=== PATIENT | female | born 1995 | race Caucasian/White ===

== ENCOUNTER → 2016-03-31 | Outpatient (CLI) | payer OTHER ==
[~2016-03-31] MED LIST: ALBU1NEB10 NEB; BACL20TA PEG; CHOL100010 PEG; MRLP527 PEG; NITR1SUS PEG; NORE5TAB5 PO; NUTRITIONAL SUPPLEMENT PEG; PLMINS PO; TRAZ50TA35 PEG; VALP250S16 PEG; ZONI100C2 PEG; ZONI100C39 PEG
--- NOTE | 2016-03-31 12:24 | DIAGNOSTIC IMAGING REPORT ---
AP PELVIS/BILAT HIP MIN 3-4V CLINICAL HISTORY: RIGHT HIP PAIN (719.45) pain COMPARISON: None. DISCUSSION: Mild elevation of the acetabular angles bilaterally. Narrowing of the iliac wings transversely most likely on a congenital basis. Nonobstructive bowel pattern. There is no evidence for soft tissue swelling. IMPRESSION: 1. Mild degenerative, dysplastic changes of the right and to lesser extent left hip. 2. 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 3. No acute process is identified. Electronically signed by: Erik Shook M.D. 03/31/2016 12:23 PM Dictated Date/Time: 03/31/2016 12:22 PM
== END | disposition home or self-care (01) ==
LOC: C.RADBBURG 17:15
PROVIDERS: ATTEND Pediatrics
DX: R30.0 Dysuria (principal); M25.551 Pain in right hip

== ENCOUNTER → 2016-04-03 | Outpatient (CLI) | payer OTHER | END | disposition home or self-care (01) | LOC: C.LABSPEC 18:54 | PROVIDERS: ATTEND Pediatrics | DX: R30.0 Dysuria (principal) ==

== ENCOUNTER → 2016-04-07 | Outpatient (CLI) | payer OTHER ==
--- NOTE | 2016-04-07 15:45 | DIAGNOSTIC IMAGING REPORT ---
RIGHT HIP ULTRASOUND CLINICAL HISTORY: Right hip pain. COMPARISON STUDY: Pelvis and bilateral hip radiographs March 31, 2016. TECHNIQUE: Sonography of the right hip was performed.Comparison sonography of the left hip was also performed. FINDINGS: No mass, fluid collection or other sonographic abnormality was identified within the region of the right hip. IMPRESSION: No sonographic abnormality identified within the right hip. Electronically signed by: Otto Pearce M.D. 04/07/2016 3:44 PM Dictated Date/Time: 04/07/2016 3:43 PM
== END | disposition home or self-care (01) ==
LOC: C.ULTR 14:53
PROVIDERS: ATTEND Pediatrics
DX: M25.551 Pain in right hip (principal)

== ENCOUNTER → 2016-06-09 | Outpatient (CLI) | payer OTHER | END | disposition home or self-care (01) | LOC: C.LABSPEC 10:33 | PROVIDERS: ATTEND Pediatrics | DX: J04.10 Acute tracheitis without obstruction (principal) ==

== ENCOUNTER 2016-09-01 16:30 | Inpatient (IN) | payer OTHER ==
[~2016-09-01] VITALS: Ht 170.2 cm; Wt 54.6 kg
[~2016-09-01 16:30] MED LIST changes: -NORE5TAB5 PO; -NUTRITIONAL SUPPLEMENT PEG; -VALP250S16 PEG
[2016-09-01] MEDS ORDERED: NUTRITIONAL SUPPLEMENT PEG (17:16)
[2016-09-01] MEDS ORDERED: VALP250S16 PEG (17:24)
--- NOTE | 2016-09-01 18:45 | EMERGENCY ROOM VISIT NOTE ---
History Report prepared by Ulisses: Emily Figueroa Under the Supervision of: Dr. Andrew Thomas M.D. First contact with patient: 17:52 Chief Complaint: REFERRED BY DOCTOR Stated Complaint: DOCTOR REFERRED - POSSIBLE INFECTION History of Present Illness The patient is a 21 year old female who presents to the Emergency Room with complaints of persistent vaginal bleeding starting 11 days ago. The patient has a history of cerebral palsy. She started her first period 11 days ago. Her mother began to become concerned when the heavy bleeding persisted until today. This morning her alarm went off because her heart rate was 155. Her blood pressure was also found to be low. She had routine lab work today which showed that her white count was elevated. She was sent to the ED over concerns of infection. The patient appears pale to her family. She is also more fatigued. She has not had any vomiting, black stools, bloody stools, or fever. Two months ago, the patient was complaining of left hip pain. She had an X-ray which revealed degenerative changes. She did not have any other imaging at that time. The patient's normal hemoglobin is 11 and normal platelet is in the 90s. She has a history of thrombocytopenia. Source of History: family Onset: 11 days ago Position: other (vaginal) Symptom Intensity: heavy Quality: other (bleeding) Timing: other (persistent) Associated Symptoms: + fatigue, No fevers, No vomiting, No melena, No hematochezia Note: Pt is pale. Review of Systems See HPI for pertinent positives & negatives. A total of 10 systems reviewed and were otherwise negative. Past Medical & Surgical Medical Problems: (1) Anemia (2) cerebral dysgenesis (3) Cerebral palsy (4) Chronic urinary tract infection (5) Mental retardation (6) Pneumonia (7) Seizure disorder (8) Sepsis (9) tracheostomy Family History FHx: heart disease Hypertension Seizures Social History Smoking Status: Never Smoker Alcohol Use: none Drug Use: none Marital Status: single Housing Status: lives with family Occupation Status: disabled Current/Historical Medications Scheduled Albuterol Sulf (Albuterol Sulfate 0.083% For Inh), 3 ML NEB BID Baclofen (Lioresal), 20 MG PEG TID Budesonide (Inhalation) (Pulmicort Respules 0.5MG/2ML), 2 ML PO BID Cholecalciferol (Vitamin D), 1,000 INTER.UNIT PEG DAILY Nitrofurantoin (Nitrofurantoin), 50 MG PEG DAILY Trazodone Hcl (Trazodone), 50 MG PEG HS Valproic Acid Syrup (Depakene), 11 ML PEG TID Zonisamide (Zonegran), 200 MG PEG QAM Zonisamide (Zonegran), 100 MG PEG HS [Boost(Adult) Feeding], 350 ML PEG QID Scheduled PRN Polyethylene (Polyethylene Glycol 3350), 8.5 GM PEG UD PRN for Constipation Allergies Coded Allergies: No Known Allergies (Unverified , 09/01/16) Physical Exam Vital Signs Date Time Temp Pulse Resp B/P (MAP) Pulse Ox O2 Delivery O2 Flow Rate FiO2 09/01/16 22:29 101 09/01/16 22:18 09/01/16 22:00 36.8 104 18 99/72 100 09/01/16 21:35 36.8 121 20 116/88 97 09/01/16 21:23 36.7 117 18 107/86 100 09/01/16 21:16 117 14 96/82 100 Trach Collar 10.0 09/01/16 20:10 117 22 100/74 97 09/01/16 18:44 126 09/01/16 18:29 112 16 102/73 94 Room Air Trach Collar 09/01/16 16:42 36.8 127 18 89/65 98 Room Air Physical Exam GENERAL: Patient is consistent with cerebral palsy. HEENT: No acute trauma, normocephalic atraumatic, mucous membranes moist, no nasal congestion, pale conjunctiva, no scleral icterus NECK: No stridor, no adenopathy, no meningismus, trachea is midline. Trach in place. LUNGS: No dyspnea. Clear to auscultation and equal bilaterally. No wheeze, no rhonchi. HEART: Tachycardic rate and regular rhythm. No murmurs, rubs, gallops appreciated. ABDOMEN: Soft, nontender, bowel sounds positive, no masses appreciated, no peritonitis. BACK: No midline tenderness, no CVA tenderness PELVIS: Small vaginal opening, continuous mild to moderate venous bleeding, unable to do full pelvic exam. EXTREMITIES: Muscle wasting and contracture of all extremities NEUROLOGIC: Alert and oriented, no acute motor or sensory deficits, no focal weakness, cranial nerves grossly intact. SKIN: Pale. No rash, no jaundice, no diaphoresis. Medical Decision & Procedures ER Provider Diagnostic Interpretation: X ray results are stated below per my interpretation and the radiologist's interpretation. Radiology results and stated below per my review and radiologist interpretation: CHEST ONE VIEW PORTABLE CLINICAL HISTORY: elevated WBC COMPARISON STUDY: 02/11/2016 FINDINGS: The cardiac and mediastinal contours remain stable. A tracheostomy tube is again visualized. There is no focal pulmonary consolidation. There are no pleural effusions. Hazy increased attenuation at the left lung base is felt to be related to technical factors.[There is no failure. IMPRESSION: AP portable study. Hazy increased attenuation of the left lung base, likely related to technical factors. If there is strong clinical suspicion over the presence of a pneumonia, a PA and lateral chest x-ray would be recommended in follow-up Electronically signed by: Galen Ham M.D. 09/01/2016 7:24 PM Dictated Date/Time: 09/01/2016 7:22 PM EXAMINATION: PELVIC ULTRASOUND (transabdominal only) CLINICAL HISTORY: Heavy vaginal bleeding. Anemia. COMPARISON STUDY: None FINDINGS: The patient is reportedly not sexually active and was unable to consent for endovaginal scanning The uterus measured 9.8 x 4.6 x 6.6 cm. The endometrial was thickened measuring 21 mm. There is complex fluid within the lower uterine segment/cervix, likely representing a blood clot. The right ovary measured 33 x 20 x 25 mm. The left ovary measured 37 x 18 x 25 mm. There is no ultrasonographic evidence of ovarian torsion. It should be noted that ovarian torsion can be present with normal Doppler ultrasonographic findings. There was no evidence of pathologic free pelvic fluid. IMPRESSION: 1. Ultrasonographically normal ovaries 2. Thickened endometrial stripe with complex fluid likely representing a blood clot within the lower uterine segment/cervix Electronically signed by: Galen Ham M.D. 09/01/2016 8:56 PM Dictated Date/Time: 09/01/2016 8:54 PM Laboratory Results 09/01/16 18:37 Red Blood Count 2.18, Mean Corpuscular Volume 102.3, Mean Corpuscular Hemoglobin 35.3, Mean Corpuscular Hemoglobin Concent 34.5, Mean Platelet Volume 8.7, Neutrophils (%) (Auto) 74.3, Lymphocytes (%) (Auto) 20.4, Monocytes (%) ( Auto) 4.7, Eosinophils (%) (Auto) 0.1, Basophils (%) (Auto) 0.1, Neutrophils # ( Auto) 10.00, Lymphocytes # (Auto) 2.74, Monocytes # (Auto) 0.63, Eosinophils # ( Auto) 0.02, Basophils # (Auto) 0.01 09/01/16 18:37 Test 09/01/16 18:37 White Blood Count 13.45 K/uL (4.8-10.8) Red Blood Count 2.18 M/uL (4.2-5.4) Hemoglobin 7.7 g/dL (12.0-16.0) Hematocrit 22.3 % (37-47) Mean Corpuscular Volume 102.3 fL (80-100) Mean Corpuscular Hemoglobin 35.3 pg (25-34) Mean Corpuscular Hemoglobin Concent 34.5 g/dl (32-36) Platelet Count 197 K/uL (130-400) Mean Platelet Volume 8.7 fL (7.4-10.4) Neutrophils (%) (Auto) 74.3 % Lymphocytes (%) (Auto) 20.4 % Monocytes (%) (Auto) 4.7 % Eosinophils (%) (Auto) 0.1 % Basophils (%) (Auto) 0.1 % Neutrophils # (Auto) 10.00 K/uL (1.4-6.5) Lymphocytes # (Auto) 2.74 K/uL (1.2-3.4) Monocytes # (Auto) 0.63 K/uL (0.11-0.59) Eosinophils # (Auto) 0.02 K/uL (0-0.5) Basophils # (Auto) 0.01 K/uL (0-0.2) RDW Standard Deviation 48.6 fL (36.4-46.3) RDW Coefficient of Variation 13.6 % (11.5-14.5) Immature Granulocyte % (Auto) 0.4 % Immature Granulocyte # (Auto) 0.05 K/uL (0.00-0.02) Polychromasia 1+ Prothrombin Time 11.1 SECONDS (9.0-12.0) Prothromb Time International Ratio 1.0 (0.9-1.1) Activated Partial Thromboplast Time 24.5 SECONDS (21.0-31.0) Partial Thromboplastin Ratio 0.9 Anion Gap 12.0 mmol/L (3-11) Est Creatinine Clear Calc Drug Dose 141.7 ml/min Estimated GFR () > 150.0 Estimated GFR (Non- 135.0 BUN/Creatinine Ratio 31.8 (10-20) Calcium Level 8.5 mg/dl (8.5-10.1) Total Bilirubin 0.2 mg/dl (0.2-1) Direct Bilirubin 0.1 mg/dl (0-0.2) Aspartate Amino Transf (AST/SGOT) 13 U/L (15-37) Alanine Aminotransferase (ALT/SGPT) 13 U/L (12-78) Alkaline Phosphatase 54 U/L (45-117) C-Reactive Protein 0.53 mg/dl (0-0.29) Total Protein 6.3 gm/dl (6.4-8.2) Albumin 3.0 gm/dl (3.4-5.0) Lipase 319 U/L (73-393) Human Chorionic Gonadotropin, Qual NEG (NEG) Valproic Acid (Depakene) Level 104 mcg/ml (50-100) Laboratory results as reviewed by me. ED Course 1753: The patient was evaluated in room B5. A complete history and physical exam was performed. 1931: I reevaluated the patient. She is stable. Her heart rate is in the 120s. 1952: I reevaluated the patient. She is stable. We are awaiting nursing to do a pelvic exam. 2009: I performed a pelvic exam in the presence of a female nurse. Findings as in exam. 2050: I reevaluated the patient. I discussed transfusion with the mother and she gave written consent. 2106: I discussed the patient's case [place]. [place], [facility] [place]. She agrees that the patient needs to be admitted for monitoring. She will defer treatment to the hospitalist and is open to consult. She suggested starting Aygestin protocol and defers to the hospitalist whether this is appropriate for the patient. 2116: I discussed the patient's case with Dr. Henriquez, [facility] [place] The patient will be evaluated for further management. 2121: Upon reevaluation, the patient is stable. I discussed results and treatment plan with the patient's mother. She verbalized understanding and agreement with the treatment plan. The patient will be evaluated for further management. Medical Decision Differential: Menstrual Bleeding, Dysfunctional Uterine Bleeding, Infectious, Ectopic , Bleeding Dyscrasia, amongst other pathologies entertained. Medication Reconciliation: I attest that I have personally reviewed the patient 's current medication list. Blood pressure screening: The patient was hypotensive. 21 yr old female who has CP with severe intellectual disability arrives for vaginal bleeding. She has never had menstrual period before 2 weeks ago when bleeding started. No blood thinner use though has history of thrombocytopenia. Labs by PCP revealed mild leukocytosis though more concern anemia. Repeat labs confirm anemia. She is tachycardic, hypotensive and requires transfusion. I reviewed this with mother who agrees. Avoid NSS bolus as with laying flat BP improved and would prefer to not dilute her further. I do not feel this is infectious as no fever and clear other cause for hypotension. Blood cultures were sent however just in case. US pelvis without mass. Exam without evidence of foreign body though does confirm bleeding, however limited exam. Reviewed with [employer] and will admit to hospitalist for further treatment/evaluation. Consults Time Called: 2104 Consulting Physician: Dr. Dubon, [facility] [place] Returned Call: 2106 I discussed the patient's case with her. She agrees that the patient needs to be admitted for monitoring. She will defer treatment to the hospitalist and is open to consult. She suggested starting Aygestin protocol and defers to the hospitalist whether this is appropriate for the patient. Additional Consults: Time Called: 2114 Consulted Physician: Dr. Henriquez [facility] [place] Returned Call: 2116 Additional Comments: I discussed the patient's case with her. The patient will be evaluated for further management. Impression Primary Impression: Vaginal bleeding Additional Impressions: Acute post-hemorrhagic anemia Hypotension Critical Care I have personally spent greater than 45 minutes of critical care time in the direct management of this patient. This was a life/limb threatening event. This includes time spent evaluating patient, direct bedside care, chart review, placing orders, interpretation of diagnostic studies, discussion with consultants, patient, and family members, as well as other required patient management activities. This 45 minutes is in excess of all separately billable procedures. Scribe Attestation The scribe's documentation has been prepared under my direction and personally reviewed by me in its entirety. I confirm that the note above accurately reflects all work, treatment, procedures, and medical decision making performed by me. Departure Information Dispostion Being Evaluated By Hospitalist Referrals No Doctor, Assigned (PCP) Patient Instructions My [facility] Problem Qualifiers Additional Impressions: Hypotension Hypotension type: unspecified hypotension type Qualified Codes: I95.9 - Hypotension, unspecified
[2016-09-01 19:01] LABS: BASO % 0.1 %; BASO ABS # 0.01 K/uL (0-0.2); EOS % 0.1 %; HEMATOCRIT 22.3 % (37-47); IG% 0.4 %; LYMPH % 20.4 %; LYMPH ABS # 2.74 K/uL (1.2-3.4); MEAN CELL VOLUME 102.3 fL (80-100); MEAN CORPUSCULAR HEMOGLOBIN 35.3 pg (25-34); MEAN CORPUSCULAR HGB CONC 34.5 g/dl (32-36); MEAN PLATELET VOLUME 8.7 fL (7.4-10.4); MONO % 4.7 %; NEUT % 74.3 %; PLATELET COUNT 197 K/uL (130-400); RED BLOOD COUNT 2.18 M/uL (4.2-5.4); WHITE BLOOD COUNT 13.45 K/uL (4.8-10.8)
[2016-09-01 19:15] LABS: PARTIAL THROMBOPLASTIN RATIO 0.9; PROTHROMBIN TIME (PATIENT) 11.1 SECONDS (9.0-12.0)
[2016-09-01 19:19] LABS: ALT/SGPT 13 U/L (12-78); BLOOD UREA NITROGEN 18 mg/dl (7-18); BUN/CREATININE RATIO 31.8 (10-20); C-REACTIVE PROTEIN 0.53 mg/dl (0-0.29); CALCIUM 8.5 mg/dl (8.5-10.1); CARBON DIOXIDE 21 mmol/L (21-32); CHLORIDE 106 mmol/L (98-107); CREATININE 0.55 mg/dl (0.60-1.20); GLUCOSE 87 mg/dl (70-99); POTASSIUM 3.8 mmol/L (3.5-5.1); SODIUM 139 mmol/L (136-145)
[2016-09-01 19:22] LABS: ALKALINE PHOSPHATASE 54 U/L (45-117); AST/SGOT 13 U/L (15-37)
[2016-09-01 19:24] LABS: COMPLETE YES; POLYCHROMASIA 1+
--- NOTE | 2016-09-01 19:25 | DIAGNOSTIC IMAGING REPORT ---
CHEST ONE VIEW PORTABLE CLINICAL HISTORY: elevated WBC COMPARISON STUDY: 02/11/2016 FINDINGS: The cardiac and mediastinal contours remain stable. A tracheostomy tube is again visualized. There is no focal pulmonary consolidation. There are no pleural effusions. Hazy increased attenuation at the left lung base is felt to be related to technical factors.[There is no failure. IMPRESSION: AP portable study. Hazy increased attenuation of the left lung base, likely related to technical factors. If there is strong clinical suspicion over the presence of a pneumonia, a PA and lateral chest x-ray would be recommended in follow-up Electronically signed by: Galen Ham M.D. 09/01/2016 7:24 PM Dictated Date/Time: 09/01/2016 7:22 PM
[2016-09-01 19:28] LABS: PREG INTERNAL NEGATIVE QC NEG CLEAR BACKGROUND; PREG INTERNAL POSITIVE QC POS CONTROL LINE
--- NOTE | 2016-09-01 20:57 | DIAGNOSTIC IMAGING REPORT ---
EXAMINATION: PELVIC ULTRASOUND (transabdominal only) CLINICAL HISTORY: Heavy vaginal bleeding. Anemia. COMPARISON STUDY: None FINDINGS: The patient is reportedly not sexually active and was unable to consent for endovaginal scanning The uterus measured 9.8 x 4.6 x 6.6 cm. The endometrial was thickened measuring 21 mm. There is complex fluid within the lower uterine segment/cervix, likely representing a blood clot. The right ovary measured 33 x 20 x 25 mm. The left ovary measured 37 x 18 x 25 mm. There is no ultrasonographic evidence of ovarian torsion. It should be noted that ovarian torsion can be present with normal Doppler ultrasonographic findings. There was no evidence of pathologic free pelvic fluid. IMPRESSION: 1. Ultrasonographically normal ovaries 2. Thickened endometrial stripe with complex fluid likely representing a blood clot within the lower uterine segment/cervix Electronically signed by: Galen Ham M.D. 09/01/2016 8:56 PM Dictated Date/Time: 09/01/2016 8:54 PM
[2016-09-01 21:23] VITALS: BP 107/86; PULSE 117; TEMP 36.7; O2SAT 100
[2016-09-01 21:35] VITALS: BP 116/88; PULSE 121; TEMP 36.8; O2SAT 97
[2016-09-01 22:00] VITALS: BP 99/72; PULSE 104; TEMP 36.8; O2SAT 100
[2016-09-01] MEDS ORDERED: POLYETHYLENE (MIRALAX) 17 GM PACK PO PRN (22:30)
[2016-09-01] MEDS ORDERED: POLYETHYLENE (MIRALAX) 17 GM PACK PEG PRN (22:30)
[2016-09-01] MEDS ORDERED: ONDANSETRON INJ 2 MG/ML 2 ML VIAL IV PRN (22:30)
[2016-09-01] MEDS ORDERED: ACETAMINOPHEN 325 MG TAB PO PRN (22:30)
--- NOTE | 2016-09-01 22:41 | History and Physical ---
History & Physical Date & Time of Service: Sep 01, 2016 at 22:41 Chief Complaint: Doctor Referred - Possible Infection Primary Care Physician: Chin Luna M.D. History of Present Illness Source: parent 21-year-old female with past medical history of cerebral palsy, MR, status post trach collar, seizure disorder presented to the ER with complaints of persistent vaginal bleeding that started about 11 days ago. Per her mother, the patient had heavy vaginal bleeding and had an elevated heart rate this morning triggering her alarm to go off. Her blood pressure was also found to be low and she appeared pale Routine lab work ordered by her neurologist revealed elevated white count and she was recommended to go to the ED for a possible infection. Per mother, no fevers or chills, nausea or vomiting or diarrhea has been reported. she wasn't sure about bright red bleeding per rectum or dark tarry stools. The patient has a trach collar but does not appear to be in respiratory distress. Past Medical/Surgical History Medical Problems: (1) Cerebral palsy Status: Chronic (2) Chronic urinary tract infection Status: Chronic (3) Mental retardation Status: Chronic (4) Seizure disorder Status: Chronic (5) tracheostomy Status: Chronic Family History FHx: heart disease Hypertension Seizures Social History Smoking Status: Never Smoker Drug Use: none Marital Status: single Housing status: lives with family Occupational Status: disabled Multi-Drug Resistant Organisms History of MDRO: No Allergies Coded Allergies: No Known Allergies (Unverified , 09/01/16) Home Medications Scheduled Albuterol Sulf (Albuterol Sulfate 0.083% For Inh), 3 ML NEB BID Baclofen (Lioresal), 20 MG PEG TID Budesonide (Inhalation) (Pulmicort Respules 0.5MG/2ML), 2 ML PO BID Cholecalciferol (Vitamin D), 1,000 INTER.UNIT PEG DAILY Nitrofurantoin (Nitrofurantoin), 50 MG PEG DAILY Norethindrone (Aygestin), 5 MG PO UD Trazodone Hcl (Trazodone), 50 MG PEG HS Valproic Acid Syrup (Depakene), 11 ML PEG TID Zonisamide (Zonegran), 200 MG PEG QAM Zonisamide (Zonegran), 100 MG PEG HS [Boost(Adult) Feeding], 350 ML PEG QID Scheduled PRN Polyethylene (Polyethylene Glycol 3350), 8.5 GM PEG UD PRN for Constipation Review of Systems Unable to obtain as the patient is nonverbal at baseline Physical Exam Vital Signs Date Time Temp Pulse Resp B/P (MAP) Pulse Ox O2 Delivery O2 Flow Rate FiO2 09/01/16 22:29 101 09/01/16 22:18 09/01/16 22:00 36.8 104 18 99/72 100 09/01/16 21:35 36.8 121 20 116/88 97 09/01/16 21:23 36.7 117 18 107/86 100 09/01/16 21:16 117 14 96/82 100 Trach Collar 10.0 09/01/16 20:10 117 22 100/74 97 09/01/16 18:44 126 09/01/16 18:29 112 16 102/73 94 Room Air Trach Collar 09/01/16 16:42 36.8 127 18 89/65 98 Room Air General Appearance: WD/WN, + mild distress Neck: supple Respiratory/Chest: chest non-tender, lungs clear, normal breath sounds Cardiovascular: + tachycardia Abdomen/GI: normal bowel sounds, non tender Extremities/Musculoskelatal: no pedal edema, + pertinent finding (contractures ) Skin: normal color Diagnostics Laboratory Results Results Past 24 Hours Test 09/01/16 18:37 Range/Units White Blood Count 13.45 4.8-10.8 K/uL Red Blood Count 2.18 4.2-5.4 M/uL Hemoglobin 7.7 12.0-16.0 g/dL Hematocrit 22.3 37-47 % Mean Corpuscular Volume 102.3 80-100 fL Mean Corpuscular Hemoglobin 35.3 25-34 pg Mean Corpuscular Hemoglobin Concent 34.5 32-36 g/dl Platelet Count 197 130-400 K/uL Mean Platelet Volume 8.7 7.4-10.4 fL Neutrophils (%) (Auto) 74.3 % Lymphocytes (%) (Auto) 20.4 % Monocytes (%) (Auto) 4.7 % Eosinophils (%) (Auto) 0.1 % Basophils (%) (Auto) 0.1 % Neutrophils # (Auto) 10.00 1.4-6.5 K/uL Lymphocytes # (Auto) 2.74 1.2-3.4 K/uL Monocytes # (Auto) 0.63 0.11-0.59 K/uL Eosinophils # (Auto) 0.02 0-0.5 K/uL Basophils # (Auto) 0.01 0-0.2 K/uL RDW Standard Deviation 48.6 36.4-46.3 fL RDW Coefficient of Variation 13.6 11.5-14.5 % Immature Granulocyte % (Auto) 0.4 % Immature Granulocyte # (Auto) 0.05 0.00-0.02 K/uL Polychromasia 1+ Prothrombin Time 11.1 9.0-12.0 SECONDS Prothromb Time International Ratio 1.0 0.9-1.1 Activated Partial Thromboplast Time 24.5 21.0-31.0 SECONDS Partial Thromboplastin Ratio 0.9 Sodium Level 139 136-145 mmol/L Potassium Level 3.8 3.5-5.1 mmol/L Chloride Level 106 98-107 mmol/L Carbon Dioxide Level 21 21-32 mmol/L Anion Gap 12.0 3-11 mmol/L Blood Urea Nitrogen 18 7-18 mg/dl Creatinine 0.55 0.60-1.20 mg/dl Est Creatinine Clear Calc Drug Dose 141.7 ml/min Estimated GFR () > 150.0 Estimated GFR (Non- 135.0 BUN/Creatinine Ratio 31.8 10-20 Random Glucose 87 70-99 mg/dl Calcium Level 8.5 8.5-10.1 mg/dl Total Bilirubin 0.2 0.2-1 mg/dl Direct Bilirubin 0.1 0-0.2 mg/dl Aspartate Amino Transf (AST/SGOT) 13 15-37 U/L Alanine Aminotransferase (ALT/SGPT) 13 12-78 U/L Alkaline Phosphatase 54 45-117 U/L C-Reactive Protein 0.53 0-0.29 mg/dl Total Protein 6.3 6.4-8.2 gm/dl Albumin 3.0 3.4-5.0 gm/dl Lipase 319 73-393 U/L Human Chorionic Gonadotropin, Qual NEG NEG Valproic Acid (Depakene) Level 104 50-100 mcg/ml Microbiology Results 09/01/16 Blood Culture, Received Pending 09/01/16 Blood Culture, Received Pending Diagnostic Radiology CLINICAL HISTORY: Heavy vaginal bleeding. Anemia. COMPARISON STUDY: None FINDINGS: The patient is reportedly not sexually active and was unable to consent for endovaginal scanning The uterus measured 9.8 x 4.6 x 6.6 cm. The endometrial was thickened measuring 21 mm. There is complex fluid within the lower uterine segment/cervix, likely representing a blood clot. The right ovary measured 33 x 20 x 25 mm. The left ovary measured 37 x 18 x 25 mm. There is no ultrasonographic evidence of ovarian torsion. It should be noted that ovarian torsion can be present with normal Doppler ultrasonographic findings. There was no evidence of pathologic free pelvic fluid. IMPRESSION: 1. Ultrasonographically normal ovaries 2. Thickened endometrial stripe with complex fluid likely representing a blood clot within the lower uterine segment/cervix Electronically signed by: Galen Ham M.D. 09/01/2016 8:56 PM Dictated Date/Time: 09/01/2016 8:54 PM CHEST ONE VIEW PORTABLE CLINICAL HISTORY: elevated WBC COMPARISON STUDY: 02/11/2016 FINDINGS: The cardiac and mediastinal contours remain stable. A tracheostomy tube is again visualized. There is no focal pulmonary consolidation. There are no pleural effusions. Hazy increased attenuation at the left lung base is felt to be related to technical factors.[There is no failure. IMPRESSION: AP portable study. Hazy increased attenuation of the left lung base, likely related to technical factors. If there is strong clinical suspicion over the presence of a pneumonia, a PA and lateral chest x-ray would be recommended in follow-up Electronically signed by: Galen Ham M.D. 09/01/2016 7:24 PM Dictated Date/Time: 09/01/2016 7:22 PM Impression Assessment and Plan 21-year-old female with past medical history of cerebral palsy, MR, status post trach collar, seizure disorder presented to the ER with complaints of persistent vaginal bleeding that started about 11 days ago. Hemoglobin in the ER was found to be 7.7 Persistent vaginal bleeding: - Beta-hCG negative - Pelvic ultrasound: 1. Ultrasonographically normal ovaries 2. Thickened endometrial stripe with complex fluid likely representing a blood clot within the lower uterine segment/cervix - Per ENGINEERING OPERATOR recommendation : Aygestin 1 tab QID x4 days 1 tab TID x 4 days 1 tab BID x7 days 1 tab daily for 7 days - Consult ENGINEERING OPERATOR Acute blood loss anemia: Hemoglobin on admission 7.7, baseline 11.3 - 2 units PRBC transfusion started in ER - Monitor H&H Leukocytosis: Likely reactive Tachycardia/hypotension: - Likely secondary to acute blood loss anemia - PRBC transfusion, IV fluids Status post trach with trach collar: -Continue albuterol and Pulmicort inhalers as scheduled Seizure disorder: -Continue depakene, Zonegran DVT prophylaxis: Chemical anticoagulation contraindicated considering vaginal bleeding Full code Disposition: Admitted to telemetry Level of Care Telemetry Resuscitation Status FULL RESUSCITATION VTE Prophylaxis VTE Risk Assessment Done? Y/N: Yes Risk Level: Moderate Given or contraindicated: Contraindicated Resident Tracking Resident Involvement: Resident Care Provided Care Provided: [facility] Assessment and Plan Attending Addendum: I physically seen and examined this patient, have supervised the medical residents activities, and agree with the H&P as noted above with the following exceptions: NONE The patient is awake, history of cerebral palsy and MR, normocephalic and atraumatic, lying in bed and in no acute distress. HEENT--PERRL, EOMI, mucous membranes and oropharynx dry. Neck--supple, no JVD or bruits, thyroid normal, trachea midline, no adenopathy. Heart--normal S1 and S2, no extra beats, no murmurs, rubs or gallops. Lungs--clear bilaterally, no respiratory distress, no accessory muscle use. Abdomen--normal bowel sounds and soft, nontender and nondistended, no hernias or masses, no organomegaly. Extremities--no cyanosis, clubbing or edema. There are good distal pulses b/l. Dermatologic--normal skin turgor, normal color, warm and dry, no abnormal lymph nodes, no rash. Neurologic--cranial nerves II through XII grossly intact. Rheumatologic--deferred Psychiatric--at her baseline mentation per mother Assessment and Plan: 1. Acute blood loss anemia secondary to persistent vaginal bleeding--the patient will be admitted to the telemetry unit for trach care and close monitoring hemoglobin. ENGINEERING OPERATOR recommends Aygestin one tablet by mouth 4 times a day 4 days then 3 times a day 4 days then twice a day 7 days and daily 7 days. Patient be transfused 2 units of packed red blood cells tonight, monitor H&H every 6 hours. Routine trach collar care. Continue albuterol and Pulmicort inhalers Continue Depakene and sonogram.
[2016-09-01 23:00] VITALS: BP 87/61; PULSE 99; TEMP 36.9; O2SAT 99
[2016-09-01 23:20] VITALS: BP 97/66; PULSE 99; O2SAT 98
[2016-09-01 23:24] LABS: MANUAL MICROSCOPIC REQUIRED? YES; URINE APPEARANCE SL CLOUDY (CLEAR); URINE BILIRUBIN NEG (NEG); URINE COLOR YELLOW; URINE NITRITE NEG (NEG); URINE PH 7.5 (4.5-7.5); URINE SPECIFIC GRAVITY 1.015 (1.000-1.030); UROBILINOGEN NEG (NEG)
[2016-09-01 23:37] LABS: REVIEW REQ? NO; SULFASALICYLIC ACID NEG (NEG)
[2016-09-01 23:56] LABS: URINE RBC 0-4 /hpf (0-4)
[2016-09-01 23:57] LABS: URINE BACTERIA NEG (NEG); URINE MUCUS PRESENT (NONE PRSENT); ZZURINE CULT IF INDIC CATH NO
[2016-09-02] VITALS (13 sets, daily range): BP systolic 88–121; BP diastolic 57–75; PULSE 76–114; TEMP 36.4–36.5; O2SAT 96–100; Ht 170.2 cm; Wt 54.6 kg
[2016-09-02] MEDS ORDERED: NORETHINDRONE ACETATE 5 MG TAB PO STA (02:38)
[2016-09-02] MEDS: SODIUM CHLORIDE 0.9% 1000ML 1,000 ML IV SCH ×2 (02:48→11:33)
[2016-09-02 04:56] LABS: BLOOD UREA NITROGEN 15 mg/dl (7-18); BUN/CREATININE RATIO 30.3 (10-20); CALCIUM 8.2 mg/dl (8.5-10.1); CARBON DIOXIDE 24 mmol/L (21-32); CHLORIDE 108 mmol/L (98-107); CREATININE 0.48 mg/dl (0.60-1.20); GLUCOSE 86 mg/dl (70-99); POTASSIUM 4.1 mmol/L (3.5-5.1); SODIUM 140 mmol/L (136-145)
[2016-09-02] MEDS: TUBE FEEDING WATER FLUSH PEG SCH ×2 (07:00→11:32)
[2016-09-02] MEDS: BOOST VANILLA PEG SCH ×4 (07:00→11:32)
[2016-09-02] MEDS: NORETHINDRONE ACETATE 5 MG TAB PO SCH ×2 (07:37→13:25)
[2016-09-02] MEDS: VALPROIC ACID SYRUP 250 MG/5 ML PEG SCH ×2 (07:37→13:26)
[2016-09-02] MEDS: BACLOFEN TAB 20 MG TAB PEG SCH ×2 (07:38→13:26)
[2016-09-02] MEDS ORDERED: BUDESONIDE 0.5 MG/2 ML VIAL (PULMICORT) INH SCH (08:00)
[2016-09-02] MEDS ORDERED: ALBUTEROL 0.083% NEBU SOLN 3 ML VIAL INH SCH (08:00)
[2016-09-02] MEDS ORDERED: NORETHINDRONE ACETATE 5 MG TAB PO SCH (09:00)
[2016-09-02] MEDS ORDERED: ZONISAMIDE 100 MG CAP GT SCH ×2 (09:00→21:00)
[2016-09-02] MEDS ORDERED: CHOLECALCIFEROL 1000 INTER.UNIT TAB PEG SCH (09:00)
[2016-09-02] MEDS ORDERED: NUTRITIONAL SUPPLEMENT PEG SCH (09:00)
--- NOTE | 2016-09-02 09:35 | Medical Consult ---
Consultation Note Date of Service Sep 02, 2016. Consultation Note The patient is a white female with the cerebral palsy and multiple medical issues as a result. She presented to the ER after she was noted to be much more somnolent over the past several days. 11 days ago she began having vaginal bleeding that appeared to be not painful. The bleeding got progressively worse over 11 days. She had had 1 other bleed in 2012 when she had been admitted for pneumonia at [facility]. That lasted approximately 3 days and was light. She has had an occasional spot of blood on her diaper but nothing that lasted more than one day. In the emergency room, her hemoglobin was 7.7. pelvic ultrasound shoed a thickened endometrium but otherwise unremarkable exam. She received 2 units of packed cells and now her hemoglobin is 11. The bleeding slowed since admission. She has been started on an Aygestin taper. She will receive 5 mg of Aygestin 4 times a day for 3 days then 3 times a day for 4 days then twice a day for 1 week and then once a day for 1 week. I discussed with her mother preventing this occurrence again by doing cyclic Provera 10 mg for 10 days every 3 months if she has had no spontaneous bleeding during that time.. She understands there will be a bleed at the end of the Aygestin taper but it should be short and much zig zag stitcher than this current bleed. She will call our office to report on the amount of bleeding from that withdrawal and at that time we will start the prescription for Provera to be taken every 3 months as needed.
[2016-09-02] MEDS ORDERED: NORE5TAB5 PO (12:34)
--- NOTE | 2016-09-02 12:40 | Discharge Instructions ---
Discharge Instructions Date of Service Sep 02, 2016. Admission Reason for Admission: Anemia, Vaginal Bleeding Discharge Discharge Diagnosis / Problem: Vaginal bleeding Discharge Goals Goal(s): Improve function, Improve disease control, Prevent Disease Progression Activity Recommendations Activity Limitations: per Instructions/Follow-up section . Instructions / Follow-Up Instructions / Follow-Up You were found to have a thickened endometrium and a low Hgb. We transfused you with 2 units of RBC and your hgb came up to 11.8. We will be sending a prescription to the pharmacy. Please take this as directed. There will be a bleed at the end of the Aygestin taper however it will be much epic director than your current bleed. Please call Dr. Dubon's office after you are done the Aygestin to discuss starting provera every 3 months as needed If Selvin has worsening of her bleeding, decreased responsivness or becomes pallor in appearance then please come back to the emergency department. Current Hospital Diet Patient's current hospital diet: Discharge Diet Recommended Diet: N/A Pending Studies Studies pending at discharge: no Medical Emergencies . Who to Call and When: Medical Emergencies: If at any time you feel your situation is an emergency, please call 911 immediately. . Non-Emergent Contact Non-Emergency issues call your: Primary Care Provider, Telephone Station Repairer . . "Provider Documentation" section prepared by Andrew Armstrong. . VTE Core Measure Inpt VTE Proph given/why not?: Contraindicated
--- NOTE | 2016-09-02 12:48 | Discharge Summary ---
Discharge Summary Date of Service Sep 02, 2016. (Andrew Armstrong MD) Discharge Summary Admission Date: Sep 01, 2016 at 22:38 Discharge Date: Sep 02, 2016 Discharge Disposition: Home Principal Diagnosis: Dysfunctional uterine bleeding Consultations: INSTRUCTIONAL FACILITATOR (Andrew Armstrong MD) Medication Reconciliation New Medications: Norethindrone (Aygestin) 5 Mg Tab 5 MG PO UD, #45 TAB 4 times a day for 3 days then 3 times a day for 4 days then twice a day for 1 week and then once a day for 1 week. Continued Medications: Albuterol Sulf (Albuterol Sulfate 0.083% For Inh) 3 Ml Nebu 3 ML NEB BID Baclofen (Lioresal) 20 Mg Tab 20 MG PEG TID Budesonide (Inhalation) (Pulmicort Respules 0.5MG/2ML) 0.5 Mg/2 Ml Briana 2 ML PO BID Cholecalciferol (Vitamin D) 1,000 Inter.unit Tab 1000 INTER.UNIT PEG DAILY, TAB Nitrofurantoin (Nitrofurantoin) 25 Mg/5 Ml Briana 50 MG PEG DAILY Polyethylene (Polyethylene Glycol 3350) 527 Gm Soln 8.5 GM PEG UD PRN for Constipation MIX 1/2 CAPFUL MIRALAX IN 8OZ WATER FOR FLUSH. Trazodone Hcl (Trazodone) 50 Mg Tab 50 MG PEG HS, TAB Valproic Acid Syrup (Depakene) 250 Mg/5 Ml Syrp 11 ML PEG TID, ML Zonisamide (Zonegran) 100 Mg Cap 200 MG PEG QAM, CAP Zonisamide (Zonegran) 100 Mg Cap 100 MG PEG HS [Boost(Adult) Feeding] () 350 ML PEG QID 350ML BOOST RUN VIA PEG TUBE @400ML/HR FOUR TIMES DAILY WITH 60ML FLUSHES. Discharge Exam Patient still having some mild->moderate vaginal bleeding Mother notes that she was smiling this morning and her colour has improved Physical Exam: General Appearance: WD/WN, no apparent distress, + pertinent finding ( patient with flexed upper extremities, doesn't respond to questions and has trach tube in place) Eyes: sclerae normal Neck: no adenopathy, no JVD, trachea midline Respiratory/Chest: no respiratory distress, no accessory muscle use, + pertinent finding (transmitted sounds from trach tube) Cardiovascular: regular rate, rhythm, no murmur Abdomen / GI: normal bowel sounds, non tender, soft Skin: normal color, warm/dry, no rash (Andrew Armstrong MD) Hospital Course The patient is a white female with the cerebral palsy and multiple medical issues as a result. She presented to the ER on 09/01 after she was noted to be much more somnolent over the past several days. 11 days prior she began having vaginal bleeding that appeared to be non painful. The bleeding got progressively worse over 11 days. Gynaecology was consulted on the patient. In the emergency room, her hemoglobin was 7.7. pelvic ultrasound showed a thickened endometrium but otherwise unremarkable exam. She received 2 units of packed cells and her hemoglobin increased to 11. The bleeding had slowed since admission. She was started on an Aygestin taper. She was discharged on 09/02 on 5 mg of Aygestin 4 times a day for 3 days then 3 times a day for 4 days then twice a day for 1 week and then once a day for 1 week. She will f/u with Dr. Dubon's office to report the amount of bleeding from the withdrawal and at that time they will likely start Provera to be taken Q3 months PRN. She was discharged on 09/02 hemodynamically stable and in no acute distress. Total Time Spent: Less than 30 minutes This includes examination of the patient, discharge planning, medication reconciliation, and communication with other providers. (Andrew Armstrong MD) Resident Physician Supervision Note: I interviewed and examined the patient. Discussed with Dr. Armstrong and agree with findings and plan as documented in the note. Any exceptions or clarifications are listed here: None Documented By: Bakari Burk bleeding slowing, HR better. mom feels safe taking her home. ROS otherwise unobtainable except for as above. vitals noted nad breathing unlabored no pallor HR improved acute hemorrhagic anemia due to vaginal bleeding w early hemorrhagic shock as manifest by tachycardia treated with transfusion and progesterone -now stable, OK to go home, progesterone as per slab off mill tender, ongoing outpt f/u. mother comfortable with plan of care (Bakari Burk, Charis.) Discharge Instructions Please refer to the electronic Patient Visit Report (Discharge Instructions) for additional information. (Andrew Armstrong MD) Additional Copies To Teri Muñoz M.D.; Chin Luna M.D.
[2016-09-02] MEDS ORDERED: TRAZODONE HCL 50 MG TAB PEG SCH (21:00)
[2016-09-06] MEDS ORDERED: NORETHINDRONE ACETATE 5 MG TAB PO SCH ×2 (09:00)
[2016-09-10] MEDS ORDERED: NORETHINDRONE ACETATE 5 MG TAB PO SCH (09:00)
[2016-09-17] MEDS ORDERED: NORETHINDRONE ACETATE 5 MG TAB PO SCH (09:00)
== END 2016-09-02 13:41 | disposition home health service (06) | DRG 760 ==
LOC: C.EDB 16:32 → C.2E 22:38 → ENRESERV 22:47
PROVIDERS: ADMIT Family Medicine; ATTEND Family Medicine
DX: N93.8 Other specified abnormal uterine and vaginal bleeding (principal); F72 Severe intellectual disabilities; D62 Acute posthemorrhagic anemia; G80.9 Cerebral palsy, unspecified; G40.909 Epilepsy, unspecified, not intractable, without status epilepticus; Z93.0 Tracheostomy status

== ENCOUNTER → 2016-11-10 | Outpatient (CLI) | payer OTHER ==
[~2016-11-10] MED LIST changes: +NORE5TAB5 PO; +NUTRITIONAL SUPPLEMENT PEG; +VALP250S16 PEG
== END | disposition home or self-care (01) ==
LOC: C.LABSPEC 18:07
PROVIDERS: ATTEND Pediatrics
DX: J04.10 Acute tracheitis without obstruction (principal)

== ENCOUNTER → 2017-03-31 | Outpatient (CLI) | payer OTHER ==
[~2017-03-31] MED LIST changes: -NORE5TAB5 PO
== END | disposition home or self-care (01) ==
LOC: C.LABSPEC 17:36
PROVIDERS: ATTEND Pediatrics
DX: R69 Illness, unspecified (principal)

== ENCOUNTER → 2017-05-14 | Outpatient (CLI) | payer OTHER | END | disposition home or self-care (01) | LOC: C.LABSPEC 17:37 | PROVIDERS: ATTEND Pediatrics | DX: J39.8 Other specified diseases of upper respiratory tract (principal) ==

== ENCOUNTER → 2017-09-14 | Outpatient (CLI) | payer OTHER ==
[~2017-09-14] MED LIST changes: +ACET10SO3 NEB; +ALBINS/ INH; -ALBU1NEB10 NEB; +ASCA500 PO; +Boost PO; +CETI1SOL PO; -CHOL100010 PEG; +FLUO10CA48 PEG; +FSLUDL325 GT; +KLN/5 PO; +LCTX GT; -NUTRITIONAL SUPPLEMENT PEG; +RBN1 PEG; +RBTUDL5 GT
--- NOTE | 2017-09-14 12:28 | DIAGNOSTIC IMAGING REPORT ---
CHEST 2 VIEWS ROUTINE CLINICAL HISTORY: Right lower lobe pneumonia. COMPARISON STUDY: Chest CT July 27, 2017 and chest radiograph August 13, 2017. FINDINGS: Tracheostomy tube is again noted. There is no pneumothorax or pleural effusion. Pulmonary vascularity is normal. Cardiomediastinal silhouette is unchanged. Left lower lung airspace opacity persists although slightly improved. Right lower lung opacity is also improved. IMPRESSION: Interval improvement in bilateral lower lung opacities, greater on the left. Residual opacity favors atelectasis although pneumonia could appear similar. Electronically signed by: Otto Pearce M.D. 09/14/2017 12:27 PM Dictated Date/Time: 09/14/2017 12:25 PM
== END | disposition home or self-care (01) ==
LOC: C.RAD 11:44
PROVIDERS: ATTEND Internal Medicine Pulmonary Disease
DX: J18.1 Lobar pneumonia, unspecified organism (principal)

== ENCOUNTER 2018-07-20 08:57 | Inpatient (IN) ==
--- OUTSIDE RECORDS SUMMARY | 2018-07-20 09:00 | External Medical Summary | Continuity of Care Document ---
:1995 Author Name Karen Garcia, Provider Address Unavailable Unavailable , Care Team Providers Name Role Phone Chad Matthew M.D. Unavailable [email or web address] Rian KENNY M.D., Queenie Gotti Unavailable [email or web address] Ramses Garcia Unavailable [email or web address] Marquita Luna M.D. Unavailable [email or web address] Stiven GUZMAN M.D. 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 E. PSejal Start: 13-Mar-2017 Quantity: 990 Refills: 11 FLUoxetine HCl - 20 MG Oral Tablet; TAKE 1 TABLET DAILY. Radha Modi III. PSejal Start: 18-Mar-2017 Quantity: 30 Refills: 11 MiraLax Oral Powder; GIVE 1/2 CAPFUL DIS SOLVED1 NIGHT 8OZ WATER EVERYDAY NEEDED FOR BOWEL Radha Guzman Start: 02-Jan-2009 Quantity: 1 765 GM Bottle Refills: 5 traZODone HCl - 50 MG Oral Tablet; TAKE 1 TABLET AT [facility]. Radha Guzman Start: 02-Jan-2009 Quantity: 30 Refills: 11 Acetylcysteine 10 % Inhalation Solution; INHALE 3 ML v ia nebulizer Twice daily Radha Matthew Start: 27-Nov-2016 Quantity: 180 Refills: 5 Ferrous Sulfate ELIX Refills: 0 Ascorbic Acid 500 MG Oral Tablet; Take 1 tablet twice daily Refills: 0 Floranex TABS; TAKE 4 TABLETS 3 TIMES DAILY Refills: 0 Boost LIQD Refills: 0 Baclofen 20 MG Oral Tablet; TAKE 1 TABLET 3 times daily Radha Modi III. PSejal Start: 02-Jan-2009 Quantity: 120 Refills: 11 levoFLOXacin 500 MG Oral Tablet; TAKE 1 tab po qd for 10 days Radha Guzman Start: 18-May-2017 Quantity: 10 Refills: 0 Oseltamivir Phosphate 75 MG Oral Capsule; TAKE 1 CAPSU LE TWICE DAILY. Radha Guzman Start: 27-Feb-2018 Quantity: 10 Refills: 0 Zonisamide 100 MG Oral Capsule; take 2 c apsules every morning and 1 capsule at bedtime Rian KENNY M.D. E. [facility] Start: 12-May-2013 Quantity: 90 Refills: 11 BD Eclipse Syringe 25G X 1" 3 ML; USE DIRECTED. Redd Matthew Start: 20-Mar-2017 Quantity: 10 Refills: 5 Cetirizine HCl - 1 MG/ML Oral Solution; TAKE 10 ML Radha Delaney Start: 27-Mar-2016 Quantity: 1 473 ML Bottle Refills: 2 Tobramycin Sulfate 80 MG/2ML Injection S olution; Patient to one vial in nebulizer every 8 hours every other day Radha Matthew 2 ML Vial Quantity: 45 Refills: 5 clonazePAM 0.5 MG Oral Tablet Disintegra ting; TAKE 1 TO 2 PRN FOR PROLONGED SEIZURES Radha Modi III Start: 07-Mar-2015 Quantity: 30 Refills: 5 Budesonide 0.5 MG/2ML Inhalation Suspens ion; inhale contents of 1 vial in nebulizer twice a day Radha Matthew Start: 07-Jul-2017 Quantity: 120 Refills: 5 Albuterol Sulfate (2.5 MG/3ML) 0.083% In halation Nebulization Solution; USE 1 UNIT DOSE IN NEBULIZER EVERY 4 TO 6 HOURS NEEDED. Radha Matthew S tart: 12-May-2013 Quantity: 3 60 x 3 ML Plas Cont Refills: 5 Acetaminophen 160 MG/5ML Oral Liquid; Ta ke 20 ml every six hours as needed for pain or fever. Radha Guzman Start: 27-Nov-2017 Quantity: 1 473 ML Bottle Refills: 5 Ibuprofen 100 MG/5ML Oral Suspension; Ta ke 10-20 ml every 6 hours as needed for pain or fever. Radha Guzman Start: 27-Nov-2017 Quantity: 1 473 ML Bottle Refills: 5 Nitrofurantoin 25 MG/5ML Oral Suspension; TAKE 10 MILL ILITERS BY MOUTH DAILY Radha Guzman Start: 30-Jun-2018 Quantity: 230 Refills: 5 Procedures History of Thoracoscopy (Therapeutic) St atus: Completed Gastrostomy Permanent Immunizations Hepatitis B On: 1996 Varicella On: 1996 HIB On: 1996 Hepatitis B On: 1996 HIB On: 1996 DTaP On: 1996 IPV On: 1996 HIB On: 11-Jan-1997 DTaP On: 11-Jan-1997 IPV On: 11-Jan-1997 Hepatitis B On: 15-Mar-1997 HIB On: 15-Mar-1997 DTaP On: 15-Mar-1997 PPD On: 09-Jun-1997 IPV On: 05-Sep-1997 MMR On: 05-Sep-1997 DTaP On: 15-Mar-1998 Influenza On: 01-Jan-2000 Pneumo (Prevnar) On: 03-Jan-2000 Influenza On: 05-Feb-2001 Influenza On: 10-Mar-2001 IPV On: 13-Sep-2001 MMR On: 13-Sep-2001 DTaP On: 07-Oct-2001 Decavac 5-2 LFU INJ On: 07-Oct-2001 Influenza On: 09-Feb-2002 Influenza On: 24-Jan-2003 Influenza On: 23-Nov-2003 Influenza On: 06-Dec-2004 Pneumococcal polysaccharide vaccine, 23 valent On: 07-Dec-19 05 Influenza On: 17-Dec-2005 Influenza On: 08-Jan-2007 Influenza On: 28-Dec-2007 Decavac 5-2 LFU INJ On: 07-Jan-2008 Meningo (Menactra) On: 07-Jan-2008 Influenza On: 15-Nov-2008 12:25 Lot #: [id number], [employer] Varicella On: 02-Jan-2009 10:16 Lot #: [id number], [employer] Pneumovax 23 25 MCG/0.5ML Injection Injectable On: 0 9:17 Lot #: [id number], [employer] Tdap On: 03-Dec-2011 15:24 Lot #: [id number], [employer] Pneumococcal polysaccharide vaccine, 23 valent On: 13-May-19 14 11:49 Lot #: [id number], [employer] Meningo (Menactra) On: 24-May-2013 12:01 Lot #: [id number], [employer] Fluzone INJ On: 08-Dec-2013 10:10 Lot #: [id number], [employer] Fluzone INJ On: 10-Nov-2014 14:06 Lot #: [id number], [employer] Influenza On: 07-Dec-2015 Flublok Quadrivalent 0.5 ML Intramuscular Solution Pre filled Syringe On: 27-Jan-2018 10:53 Lot #: [id number], [employer] Family History Brother Family history of Asthma (V17.5) Status: Active Unknown Family Member Family history of Coronary Artery Disease Status: Active Comments: Family History Family history of Hypertension (V17.49) Status: Active Comments: Family History Social History - Smoking Status Never smoker Plan of Treatment Planned Encounters Appointment; Queenie Modi III, M.D. Start: 13-Jun-2019 10:30 Requ est Planned Observations Planned Goals not documented Results No Known Results Results not documented Encounters Appointment; Queenie Modi III, M.D. 07-Jun-2018 11:30 Encounter Diagnosis: Problem not documented Appointment; [place] [id number] 27-Jan-2018 10:35 Encounter Diagnosis: Problem not documented Appointment; Chad Matthew M.D. 28-Oct-2017 13:30 Encounter Diagnosis: Problem not documented Appointment; Janet Guzman M.D. 18-Sep-2017 10:30 Encounter Diagnosis: Problem not documented Appointment; Chad Matthew M.D. 02-Sep-2017 10:15 Encounter Diagnosis: Problem not documented Appointment; Nelson Nj M.D. 13-Aug-2017 10:15 Encounter Diagnosis: Problem not documented Appointment; Chad Matthew M.D. 22-Jul-2017 13:45 Encounter Diagnosis: Problem not documented Appointment; Aimee Clark M.D. 22-Jul-2017 9:15 Encounter Diagnosis: Problem not documented Appointment; Chad Matthew M.D. 16-Jul-2017 10:45 Encounter Diagnosis: Problem not documented Appointment; Chin Luna M.D. 09-Jul-2017 11:30 Encounter Diagnosis: Problem not documented Appointment; Rebecca Quinteros M.D. 14-May-2017 14:45 Encounter Diagnosis: Problem not documented Appointment; Queenie Modi III, M.D. 18-Mar-2017 14:30 Encounter Diagnosis: Problem not documented Appointment; Chad Matthew M.D. 31-Dec-2016 11:00 Encounter Diagnosis: Problem not documented Appointment; Chad Matthew M.D. 25-Sep-2016 10:00 Encounter Diagnosis: Problem not documented Appointment; Queenie Modi III, M.D. 13-Jun-2019 10:30 Encounter Diagnosis: Problem not documented
--- NOTE | 2018-07-20 10:17 | XRay Report ---
XR chest 1V portable HISTORY: Sepsis COMPARISON: Chest 10/28/2017. FINDINGS: No pneumothorax. No pleural effusions. The heart is normal in size. A tracheostomy tube oanh ears in good position. Patchy and linear left basilar densities have slightly progressed. A few small linear density within the right lung base favor scarring or atelectasis. The upper lung zones are cl ear. A gastrostomy tube is noted. IMPRESSION: Progressive patchy and linear densities within the left lung base. This may represent a pneumonia, po ssibly secondary to aspiration. Electronically signed by: Edmund Dorman M.D. 07/20/2018 10:16 AM
[2018-07-20 10:24] LABS: INR 1.2 (0.9-1.1); Partial Thromboplastin Ratio 1.1; Partial Thromboplastin Time 28.6 Seconds (21.0-31.0); Prothrombin Time 11.8 Seconds (9.0-12.0)
[2018-07-20 10:30] LABS: Alanine Aminotransferase 12 U/L (12-78); Albumin Level 3.1 gm/dl (3.4-5.0); Aspartate Aminotransferase 13 U/L (15-37); BUN Creatinine Ratio 25.8 (10-20); Blood Urea Nitrogen 10 mg/dl (7-18); Calcium 9.1 mg/dl (8.5-10.1); Carbon Dioxide 26 mmol/L (21-32); Chloride 106 mmol/L (98-107); Creatinine Clr Calc Pharmacy 141.9 ml/min; Est GFR (African American) > 150.0; Est GFR (Non-African American) > 150.0; Glucose 92 mg/dl (70-99); Sodium 140 mmol/L (136-145)
[2018-07-20 10:33] LABS: Albumin Globulin Ratio 0.7 (0.9-2); Alkaline Phosphatase 82 U/L (45-117); Bilirubin,Total 0.3 mg/dl (0.2-1); Globulin 4.2 gm/dl (2.5-4.0); Total Protein 7.3 gm/dl (6.4-8.2)
[2018-07-20 10:47] LABS: Basophils # (auto) 0.01 K/uL (0-0.2); Basophils % (auto) 0.1 %; Eosinophils # (auto) 0.01 K/uL (0-0.5); Eosinophils % (auto) 0.1 %; Hematocrit (blood only) 35.2 % (37-47); Hemoglobin 12.7 g/dL (12.0-16.0); Immature Granulocytes # (auto) 0.02 K/uL (0.00-0.02); Immature Granulocytes % (auto) 0.2 %; Lymphocytes # (auto) 1.47 K/uL (1.2-3.4); Lymphocytes % (auto) 13.1 %; Mean Corpuscular Hgb Conc 36.1 g/dL (32-36); Mean Corpuscular Volume 98.1 fL (80-100); Mean Platelet Volume 9.4 fL (7.4-10.4); Neutrophils # (auto) 8.81 K/uL (1.4-6.5); Neutrophils % (auto) 78.5 %; Platelet Count 99 K/uL (130-400); Platelet Estimate Decreased (Normal); RDW Standard Deviation 42.9 fL (36.4-46.3); Red Blood Count 3.59 M/uL (4.2-5.4); White Blood Count 11.22 K/uL (4.8-10.8)
[2018-07-20] MEDS ORDERED: PIPERACILLIN/TAZOBACTAM 3.375 GM/115 ML BAG IV STA (10:48)
[2018-07-20 10:55] LABS: Appearance Urine Clear (Clear); Bilirubin Urine Negative (Negative); Blood Urine Negative (Negative); Color Urine Dark Yellow; Glucose Urine UA Negative (Negative); Ketones Urine Negative (Negative); Leukocyte Esterase Urine Negative (Negative); Nitrite Urine Negative (Negative); Protein Urine Negative (Negative); Specific Gravity Urine 1.016 (1.000-1.030); Urobilinogen Urine Negative (Negative)
--- NOTE | 2018-07-20 12:00 | History & Physical Report ---
Date of Service July 20, 2018 Assessment & Plan (1) Pneumonia: Patient with reported elevated temperature, increased tracheal secretions and oxygen demand. CXR suggestive of possible LLL PNA. Patient presently afebrile, hemodynamically stable, adequate oxygenation on trach collar, no respiratory distress. 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 -Admission to PCU -Trach culture sent from ER, follow result -Zosyn 4.5gm IV q 8 -Continue supplemental O2 as needed via trach collar, humidified, continuous pulse oximetry -Albuterol BID and PRN -Budesonide BID -Guaifenasin PRN -Tobramycin nebs BID -Respiratory therapy for percussion vest and coughinator Present on Admission?: Yes (2) Cerebral palsy: Patient with CP. Full assist, bed bound, non-verbal, does not follow commands or participate in exam -All feeds and medications through PEG tube -Boost 350mL at rate of 400 QID with free H2O flushes 120mL before and after feeds -Aspiration precautions -External female catheter and diaper -Skin precautions with frequent turning and offloading heels as needed -Valproic Acid BID for seizures -Clonazepam PRN seizures -Continue Fluoxetine -Continue Baclofen -Continue Zyrtec -Continue Nitrofurantoin -Continue Zonisamide -Continue Trazodone (3) Thrombocytopenia: Platelets 99. No active bleeding. Perhaps decreased in setting of acute infection -Continue to monitor -If continue to decrease would recommend additional workup F/E/N - NSS at 80mL/hr x 2 liters, monitor electrolytes, feeds as above Ppx - low risk for DVT Code - DNR per discussion with family Dispo -PCU History of Present Illness Chief Complaint: Hypoxia Primary Care Provider: Janet Pearce MD Selvin Alcala is a 22yo C female with history of CP. History obtained from family at bedside as patient is non-communicative. Patient with elevated temperature yesterday, 99.1 axillary. Also with decreased saturations 86% and increase in tracheal secretions. Patient had O2 placed overnight with trach collar which is unusual for her. ER Course: Zosyn Allergies Allergy/AdvReac Type Severity Reaction Status Date / Time No Known Allergies Allergy Unverified 07/20/18 10:41 Home Medications Home Medications Medication Instructions Recorded Confirmed Type Lactobacillus acidophilus 4 tab FEEDING TUBE TIDM 07/20/18 07/20/18 History acetylcysteine 07/20/18 History acetylcysteine 3 ml INHALATION BID 07/20/18 07/20/18 History albuterol sulfate 2.5 mg INHALATION Q4H PRN 07/20/18 07/20/18 History ascorbic acid (vitamin C) [Vitamin 500 mg FEEDING TUBE BID 07/20/18 07/20/18 History C] baclofen 20 mg FEEDING TUBE TID 07/20/18 07/20/18 History budesonide 2 ml INHALATION BID 07/20/18 07/20/18 History cetirizine 10 mg FEEDING TUBE DAILY 07/20/18 07/20/18 History clonazepam 0.5 mg FEEDING TUBE DIRECTED 07/20/18 07/20/18 History ferrous sulfate 325 mg FEEDING TUBE BID 07/20/18 07/20/18 History fluoxetine 10 mg FEEDING TUBE DAILY 07/20/18 07/20/18 History food supplemt, lactose-reduced 1.3 ea PO TID 07/20/18 07/20/18 History [Boost] glycopyrrolate 0.5 mg FEEDING TUBE BID 07/20/18 07/20/18 History guaifenesin 100 mg PO Q6H 07/20/18 07/20/18 History nitrofurantoin 50 mg FEEDING TUBE DAILY 07/20/18 07/20/18 History polyethylene glycol 3350 8.5 g FEEDING TUBE DAILY PRN 07/20/18 07/20/18 History tobramycin 4 cap INHALATION Q12H 07/20/18 07/20/18 History trazodone 50 mg FEEDING TUBE HS 07/20/18 07/20/18 History valproic acid (as sodium salt) 500 mg FEEDING TUBE TID 07/20/18 07/20/18 History zonisamide 100 mg FEEDING TUBE HS 07/20/18 07/20/18 History zonisamide 200 mg FEEDING TUBE QAM 07/20/18 07/20/18 History Past Med/Surg History Medical History Hypoxia (Acute) PNA (pneumonia) (Acute) Pleural effusion (Acute) Cerebral palsy Seizure disorder Surgical History S/P percutaneous endoscopic gastrostomy (PEG) tube placement Status post tracheostomy Family History Other Family history non-contributory Social History Preferred Language: Armenian Communication Ability: Unable Communication Ability Comment: has trach and cp non vocal Beliefs That Will Affect Care: None Current Living Situation: Parent Current Living Situation Comment: parent Other Information That Helps Us Care for You: No Feels Safe at Home: Yes Safety Concerns: Feels Safe At This Time Smoking Status: Never smoker Hx Alcohol Use: No Hx Substance Use: No Review of Systems Review of Systems: Unobtainable due to cognitive status Physical Exam Physical Exam: General: patient in NAD, non-toxic in appearance, nonverbal, does not participate in exam HEENT: NC/AT, PERRL sluggish, anicteric sclera, conjunctiva without injection, external ear normal to inspection and nontender, nares patent, moist mucus me mbranes, dentition intact, no oropharyngeal lesions, neck supple, trachea midline, no LAD, no thyromegaly, no JVD, tracheostomy in place, no bleeding/drainage/erythema Heart: +S1/S2, regular, no m/r/g Lungs: equal air entry bilaterally, no rales/rhonchi/wheezes Abd: +BS, soft, NT/ND, no masses/organomegaly/ascites, Giacomo PEG tube in place Ext: warm, 2+ pulses in UE/LE bilaterally, no clubbing/cyanosis or edema, flexion contractures of UE/LE bilaterally Neuro: nonverbal, does not follow commands, at baseline cognitive status per family Results & Data Vital Signs (Past 12 Hours) Vital Signs Temp Pulse Pulse Resp BP Pulse Ox 07/20/18 11:08 71 20 98 07/20/18 10:43 83 94 07/20/18 09:07 37.1 C 100 H 20 103/72 98 Laboratory Results Lab Results 07/20/18 07/20/18 07/20/18 Range/Units 10:02 10:02 10:02 WBC 11.22 H (4.8-10.8) K/uL RBC 3.59 L (4.2-5.4) M/uL Hgb 12.7 (12.0-16.0) g/dL Hct 35.2 L (37-47) % MCV 98.1 (80-100) fL MCH 35.4 H (25-34) pg MCHC 36.1 H (32-36) g/dL RDW Std Deviation 42.9 (36.4-46.3) fL RDW Coeff of [place]quito 12.0 (11.5-14.5) % Plt Count 99 L (130-400) K/uL MPV 9.4 (7.4-10.4) fL Immature Gran % (Auto) 0.2 % Neut % (Auto) 78.5 % Lymph % (Auto) 13.1 % [place] % (Auto) 8.0 % Eos % (Auto) 0.1 % Baso % (Auto) 0.1 % Immature Gran # (Auto) 0.02 (0.00-0.02) K/uL Neut # (Auto) 8.81 H (1.4-6.5) K/uL Lymph # (Auto) 1.47 (1.2-3.4) K/uL [place] # (Auto) 0.90 H (0.11-0.59) K/uL Eos # (Auto) 0.01 (0-0.5) K/uL Baso # (Auto) 0.01 (0-0.2) K/uL Platelet Estimate Decreased L (Normal) PT 11.8 (9.0-12.0) Seconds INR 1.2 H (0.9-1.1) APTT 28.6 (21.0-31.0) Seconds PTT Ratio 1.1 Sodium (136-145) mmol/L Potassium (3.5-5.1) mmol/L Chloride (98-107) mmol/L Carbon Dioxide (21-32) mmol/L Anion Gap (3-11) BUN (7-18) mg/dl Creatinine (0.6-1.2) mg/dl Est Cr Clr Drug Dosing ml/min Est GFR ( Amer) Est GFR (Non-Af Amer) BUN/Creatinine Ratio (10-20) Glucose (70-99) mg/dl Lactate (0.4-2.0) mmol/L Calcium (8.5-10.1) mg/dl Phosphorus (2.5-4.9) mg/dl Magnesium (1.8-2.4) mg/dl Total Bilirubin (0.2-1) mg/dl AST (15-37) U/L ALT (12-78) U/L Alkaline Phosphatase (45-117) U/L Total Protein (6.4-8.2) gm/dl Albumin (3.4-5.0) gm/dl Globulin (2.5-4.0) gm/dl Albumin/Globulin Ratio (0.9-2) Procalcitonin < 0.05 (0-0.5) ng/ml Urine Color Urine Appearance (Clear) Urine pH (4.5-7.5) Ur Specific [place] (1.000-1.030) Urine Protein (Negative) Urine Glucose (UA) (Negative) Urine Ketones (Negative) Urine Blood (Negative) Urine Nitrite (Negative) Urine Bilirubin (Negative) Urine Urobilinogen (Negative) Ur Leukocyte Esterase (Negative) 07/20/18 07/20/18 07/20/18 Range/Units 10:02 10:02 10:02 WBC (4.8-10.8) K/uL RBC (4.2-5.4) M/uL Hgb (12.0-16.0) g/dL Hct (37-47) % MCV (80-100) fL MCH (25-34) pg MCHC (32-36) g/dL RDW Std Deviation (36.4-46.3) fL RDW Coeff of Flaquito (11.5-14.5) % Plt Count (130-400) K/uL MPV (7.4-10.4) fL Immature Gran % (Auto) % Neut % (Auto) % Lymph % (Auto) % [place] % (Auto) % Eos % (Auto) % Baso % (Auto) % Immature Gran # (Auto) (0.00-0.02) K/uL Neut # (Auto) (1.4-6.5) K/uL Lymph # (Auto) (1.2-3.4) K/uL [place] # (Auto) (0.11-0.59) K/uL Eos # (Auto) (0-0.5) K/uL Baso # (Auto) (0-0.2) K/uL Platelet Estimate (Normal) PT (9.0-12.0) Seconds INR (0.9-1.1) APTT (21.0-31.0) Seconds PTT Ratio Sodium 140 (136-145) mmol/L Potassium 4.0 (3.5-5.1) mmol/L Chloride 106 (98-107) mmol/L Carbon Dioxide 26 (21-32) mmol/L Anion Gap 8.0 (3-11) BUN 10 (7-18) mg/dl Creatinine 0.39 L (0.6-1.2) mg/dl Est Cr Clr Drug Dosing 141.9 ml/min Est GFR ( Amer) > 150.0 Est GFR (Non-Af Amer) > 150.0 BUN/Creatinine Ratio 25.8 H (10-20) Glucose 92 (70-99) mg/dl Lactate 0.9 (0.4-2.0) mmol/L Calcium 9.1 (8.5-10.1) mg/dl Phosphorus 3.6 (2.5-4.9) mg/dl Magnesium 2.3 (1.8-2.4) mg/dl Total Bilirubin 0.3 (0.2-1) mg/dl AST 13 L (15-37) U/L ALT 12 (12-78) U/L Alkaline Phosphatase 82 (45-117) U/L Total Protein 7.3 (6.4-8.2) gm/dl Albumin 3.1 L (3.4-5.0) gm/dl Globulin 4.2 H (2.5-4.0) gm/dl Albumin/Globulin Ratio 0.7 L (0.9-2) Procalcitonin (0-0.5) ng/ml Urine Color Urine Appearance (Clear) Urine pH (4.5-7.5) Ur Specific [place] (1.000-1.030) Urine Protein (Negative) Urine Glucose (UA) (Negative) Urine Ketones (Negative) Urine Blood (Negative) Urine Nitrite (Negative) Urine Bilirubin (Negative) Urine Urobilinogen (Negative) Ur Leukocyte Esterase (Negative) 07/20/18 Range/Units 10:25 WBC (4.8-10.8) K/uL RBC (4.2-5.4) M/uL Hgb (12.0-16.0) g/dL Hct (37-47) % MCV (80-100) fL MCH (25-34) pg MCHC (32-36) g/dL RDW Std Deviation (36.4-46.3) fL RDW Coeff of Flaquito (11.5-14.5) % Plt Count (130-400) K/uL MPV (7.4-10.4) fL Immature Gran % (Auto) % Neut % (Auto) % Lymph % (Auto) % [place] % (Auto) % Eos % (Auto) % Baso % (Auto) % Immature Gran # (Auto) (0.00-0.02) K/uL Neut # (Auto) (1.4-6.5) K/uL Lymph # (Auto) (1.2-3.4) K/uL [place] # (Auto) (0.11-0.59) K/uL Eos # (Auto) (0-0.5) K/uL Baso # (Auto) (0-0.2) K/uL Platelet Estimate (Normal) PT (9.0-12.0) Seconds INR (0.9-1.1) APTT (21.0-31.0) Seconds PTT Ratio Sodium (136-145) mmol/L Potassium (3.5-5.1) mmol/L Chloride (98-107) mmol/L Carbon Dioxide (21-32) mmol/L Anion Gap (3-11) BUN (7-18) mg/dl Creatinine (0.6-1.2) mg/dl Est Cr Clr Drug Dosing ml/min Est GFR ( Amer) Est GFR (Non-Af Amer) BUN/Creatinine Ratio (10-20) Glucose (70-99) mg/dl Lactate (0.4-2.0) mmol/L Calcium (8.5-10.1) mg/dl Phosphorus (2.5-4.9) mg/dl Magnesium (1.8-2.4) mg/dl Total Bilirubin (0.2-1) mg/dl AST (15-37) U/L ALT (12-78) U/L Alkaline Phosphatase (45-117) U/L Total Protein (6.4-8.2) gm/dl Albumin (3.4-5.0) gm/dl Globulin (2.5-4.0) gm/dl Albumin/Globulin Ratio (0.9-2) Procalcitonin (0-0.5) ng/ml Urine Color Dark Yellow Urine Appearance Clear (Clear) Urine pH 8.0 H (4.5-7.5) Ur Specific [place] 1.016 (1.000-1.030) Urine Protein Negative (Negative) Urine Glucose (UA) Negative (Negative) Urine Ketones Negative (Negative) Urine Blood Negative (Negative) Urine Nitrite Negative (Negative) Urine Bilirubin Negative (Negative) Urine Urobilinogen Negative (Negative) Ur Leukocyte Esterase Negative (Negative) Diagnostic Findings XR chest 1V portable HISTORY: Sepsis COMPARISON: Chest 10/28/2017. FINDINGS: No pneumothorax. No pleural effusions. The heart is normal in size. A tracheostomy tube appears in good position. Patchy and linear left basilar densities have slightly progressed. A few small linear density within the right lung base favor scarring or atelectasis. The upper lung zones are clear. A gastrostomy tube is noted. IMPRESSION: Progressive patchy and linear densities within the left lung base. This may represent a pneumonia, possibly secondary to aspiration. Electronically signed by: Edmund Dorman M.D. 07/20/2018 10:16 AM Dictated: 07/20/18 1014 Transcribed: 07/20/18 1014 Code Status & VTE Plan Code Status DNR per discussion with family VTE Prophylaxis Plan VTE Prophylaxis will be ordered: No Reason for no VTE drug order: Treatment not indicated Reason for no VTE mechanical prophylaxis: Treatment not indicated (1) Cerebral palsy Cerebral palsy type: unspecified type Qualified Code(s): G80.9 - Cerebral palsy, unspecified (2) Pneumonia Laterality: left Lung location: lower lobe of lung Pneumonia type: due to unspecified organism Qualified Code(s): J18.1 - Lobar pneumonia, unspecified organism
[2018-07-20] MEDS ORDERED: PIPERACILL/TAZOBAC CONSULT ACTIVE PRN (13:15)
[2018-07-20] MEDS ORDERED: ONDANSETRON INJ 2 MG/ML 2 ML VIAL IV PRN (13:15)
[2018-07-20] MEDS ORDERED: clonazePAM 0.5 MG TAB PO PRN (13:45)
[2018-07-20] MEDS: BUDESONIDE 0.5 MG/2 ML VIAL (PULMICORT) INH SCH ×2 (14:04→19:12)
[2018-07-20] MEDS: ALBUTEROL 0.083% NEBU SOLN 3 ML VIAL INH PRN ×2 (14:04→19:12)
[2018-07-20 14:18] LABS: Magnesium 2.3 mg/dl (1.8-2.4); Phosphorus 3.6 mg/dl (2.5-4.9)
[2018-07-20] MEDS: SODIUM CHLORIDE 0.9% 1000ML 1,000 ML IV SCH (14:26)
[2018-07-20] MEDS: VALPROIC ACID SOLN 500 MG/10 ML UDC PO SCH ×2 (15:25→20:49)
[2018-07-20] MEDS: BACLOFEN 20 MG TAB PO SCH ×2 (15:25→20:48)
[2018-07-20] MEDS: PIPERACILLIN/TAZOBACTAM 3.375 GM in DEXTROSE 5% 100 ML IV SCH (16:12)
--- NOTE | 2018-07-20 16:24 | Emergency Department Note ---
Entered by Jaclyn Barajas acting as a scribe for Wily Hendricks MD History of Present Illness General Chief complaint: Respiratory Problems Stated complaint: LOW 02, RESP SYMPTOMS Time Seen by Provider: 07/20/18 09:36 Source: family (mother) and other (home nurse) History of Present Illness Provider complaint: respiratory problems Onset (ago): day(s) (last night) Location: chest Maximum Pain Intensity: 0 Quality: + other (respiratory problems) Associated symptoms: + fever/chills (low grade fever) and + other (low oxygen saturation) The patient is a 22 year old female who presents to the Emergency Department with complaints of respiratory problems since last night. Per home nurse, the patient had a low oxygen level overnight and was satting at 84. Home nurse states that the patient also had a low grade fever at 99.1 axillary. 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 Her home nurse states that the patient's mentation is at baseline. Per home nurse, the patient was in the hospital last year for fluid on her lungs and had chest tubes placed. Her home nurse states that the patient does not communicate or ambulate. Her home health nurse states that the patient is not usually on Oxygen. Per mother, the patient has had recent weight loss as the patient went from 109 to 99 to 85 pounds over the last several months. Home Medications Home Medications Medication Instructions Recorded Confirmed Type Lactobacillus acidophilus 4 tab FEEDING TUBE TIDM 07/20/18 07/20/18 History acetylcysteine 07/20/18 History acetylcysteine 3 ml INHALATION BID 07/20/18 07/20/18 History albuterol sulfate 2.5 mg INHALATION Q4H PRN 07/20/18 07/20/18 History ascorbic acid (vitamin C) [Vitamin 500 mg FEEDING TUBE BID 07/20/18 07/20/18 History C] baclofen 20 mg FEEDING TUBE TID 07/20/18 07/20/18 History budesonide 2 ml INHALATION BID 07/20/18 07/20/18 History cetirizine 10 mg FEEDING TUBE DAILY 07/20/18 07/20/18 History clonazepam 0.5 mg FEEDING TUBE DIRECTED 07/20/18 07/20/18 History ferrous sulfate 325 mg FEEDING TUBE BID 07/20/18 07/20/18 History fluoxetine 10 mg FEEDING TUBE DAILY 07/20/18 07/20/18 History food supplemt, lactose-reduced 1.3 ea PO TID 07/20/18 07/20/18 History [Boost] glycopyrrolate 0.5 mg FEEDING TUBE BID 07/20/18 07/20/18 History guaifenesin 100 mg PO Q6H 07/20/18 07/20/18 History nitrofurantoin 50 mg FEEDING TUBE DAILY 07/20/18 07/20/18 History polyethylene glycol 3350 8.5 g FEEDING TUBE DAILY PRN 07/20/18 07/20/18 History tobramycin 4 cap INHALATION Q12H 07/20/18 07/20/18 History trazodone 50 mg FEEDING TUBE HS 07/20/18 07/20/18 History valproic acid (as sodium salt) 500 mg FEEDING TUBE TID 07/20/18 07/20/18 History zonisamide 100 mg FEEDING TUBE HS 07/20/18 07/20/18 History zonisamide 200 mg FEEDING TUBE QAM 07/20/18 07/20/18 History Allergies Allergy/AdvReac Type Severity Reaction Status Date / Time No Known Allergies Allergy Unverified 07/20/18 10:41 Past Med/Surg History Medical History Hypoxia (Acute) PNA (pneumonia) (Acute) Pleural effusion (Acute) Cerebral palsy Seizure disorder Social History Preferred Language: Yoruba Communication Ability: Unable Communication Ability Comment: has trach and cp non vocal Beliefs That Will Affect Care: None Current Living Situation: Parent Current Living Situation Comment: parent Other Information That Helps Us Care for You: No Feels Safe at Home: Yes Safety Concerns: Feels Safe At This Time Smoking Status: Never smoker Hx Alcohol Use: No Hx Substance Use: No Review of Systems See HPI for pertinent positives & negatives. and A total of 10 systems reviewed and were otherwise negative Physical Exam Vital Signs Vital Signs - 24 hr 07/20/18 09:07 07/20/18 10:43 07/20/18 11:08 Temperature 37.1 C Temperature Source Oral Sepsis Recent Fever Within 48 Hours No Sepsis New/Unexplained Change in Mental Status No Sepsis Action Taken by Nursing No Action Required Pulse Rate 100 H 83 Pulse Rate [Finger] 71 Pulse Rhythm Regular Respiratory Rate 20 20 Respiratory Effort / Characteristics Respiratory Depth Respiratory Pattern Blood Pressure 103/72 Blood Pressure Mean 82 Blood Pressure Position Sitting Pulse Oximetry 98 94 98 Oxygen Delivery Method Room Air Trach Collar 07/20/18 11:20 Temperature Temperature Source Sepsis Recent Fever Within 48 Hours Sepsis New/Unexplained Change in Mental Status Sepsis Action Taken by Nursing Pulse Rate Pulse Rate [Finger] Pulse Rhythm Respiratory Rate Respiratory Effort / Characteristics Spontaneous Respiratory Depth Deep Respiratory Pattern Irregular Blood Pressure Blood Pressure Mean Blood Pressure Position Pulse Oximetry Oxygen Delivery Method Trach Collar GENERAL: Patient is in no acute distress. HEENT: No acute trauma, normocephalic atraumatic, mucous membranes moist, no nasal congestion, no scleral icterus. NECK: No stridor, no adenopathy, no meningismus, trachea is midline. Tracheostomy in place. LUNGS: Clear to auscultation bilaterally, no wheeze, no rhonchi, breath sounds equal. HEART: Without murmurs gallops or rubs, regular rate and rhythm. ABDOMEN: Soft, nontender, bowel sounds positive, no hernias, no peritonitis. Feeing tube noted. EXTREMITIES: Muscle wasting noted. No gross deformities. No significant edema. NEUROLOGIC: Significant MR noted. Awake. Moves all extremities. Non-verbal. SKIN: No rash, no jaundice, no diaphoresis. Course 0940: The patient was evaluated in room B8. A history and physical were performe d. 1057: I updated the patient's mother who verbalized agreement and understanding of the treatment plan. 1100: I discussed the patient's case with Dr. LoaizaPulmonestephanie who said to admit the patient. 1107: I discussed the patient's case with Dr. Zahira Gilbert who will evaluate the patient for further management. Consultations Consultation #1: Dr. Wynne Time: 11:00 Consultation #2: Dr. Zahira Gilbert Time: 11:07 Administered Medications Albuterol (Ventolin 0.083% 2.5mg/3ml) 2.5 mg INH Q4H PRN PRN Reason: Wheezing/ shortness of breath Stop: 08/19/18 13:14 Last Admin: 07/20/18 14:04 Dose: 2.5 mg Documented by: [id number] Baclofen (Lioresal) 20 mg PO TID KENNEDY Stop: 08/19/18 13:59 Last Admin: 07/20/18 15:25 Dose: 20 mg Documented by: [id number] Budesonide (Pulmicort Respules) 0.5 mg INH BIDR [facility] Stop: 08/19/18 13:14 Last Admin: 07/20/18 14:04 Dose: 0.5 mg Documented by: [id number] Sodium Chloride (Nss 1000ml) 1,000 mls @ 80 mls/hr IV .[id number] KENNEDY Stop: 07/21/18 14:44 Last Admin: 07/20/18 14:26 Dose: 80 mls/hr Documented by: [id number] Piperacillin Sod/Tazobactam (Sod 3.375 gm/ Dextrose) 115 mls @ 28.75 mls/hr IV Q8H [facility]; Protocol Stop: 07/27/18 15:59 Last Admin: 07/20/18 16:12 Dose: 28.8 mls/hr Documented by: [id number] Valproic Acid (Valproic Acid) 500 mg PO TID [facility] Stop: 08/19/18 13:59 Last Admin: 07/20/18 15:25 Dose: 500 mg Documented by: [id number] Discontinued Medications Piperacillin Sod/Tazobactam Sod (Zosyn) 3.375 gm in 115 mls @ 230 mls/hr IV NOW STA Stop: 07/20/18 11:17 Last Infusion: 07/20/18 11:39 Dose: 0 mls/hr Documented by: [id number] Admin: 07/20/18 11:09 Dose: 230 mls/hr Documented by: [id number] Miscellaneous (Order Awaiting Action) 1 ea N/A QS [facility] Stop: 08/19/18 13:59 Last Admin: 07/20/18 14:27 Dose: Not Given Documented by: [id number] Medical Decision Making Differential Diagnosis Differentials include pneumonia or bronchitis, sinusitis, URI, UTI, bacteremia, sepsis, dehydration, and electrolyte imbalance. Medical Records Attestation: I reviewed the patient's medical records. Home Medications Current Medication List: was personally reviewed by me Laboratory Data Attestation: I reviewed the patient's lab results. Result diagrams: 07/20/18 10:02 07/20/18 10:02 Lab Results 07/20/18 07/20/18 07/20/18 Range/Units 10:02 10:02 10:02 WBC 11.22 H (4.8-10.8) K/uL RBC 3.59 L (4.2-5.4) M/uL Hgb 12.7 (12.0-16.0) g/dL Hct 35.2 L (37-47) % MCV 98.1 (80-100) fL MCH 35.4 H (25-34) pg MCHC 36.1 H (32-36) g/dL RDW Std Deviation 42.9 (36.4-46.3) fL RDW Coeff of [place] 12.0 (11.5-14.5) % Plt Count 99 L (130-400) K/uL MPV 9.4 (7.4-10.4) fL Immature Gran % (Auto) 0.2 % Neut % (Auto) 78.5 % Lymph % (Auto) 13.1 % Moody % (Auto) 8.0 % Eos % (Auto) 0.1 % Baso % (Auto) 0.1 % Immature Gran # (Auto) 0.02 (0.00-0.02) K/uL Neut # (Auto) 8.81 H (1.4-6.5) K/uL Lymph # (Auto) 1.47 (1.2-3.4) K/uL Moody # (Auto) 0.90 H (0.11-0.59) K/uL Eos # (Auto) 0.01 (0-0.5) K/uL Baso # (Auto) 0.01 (0-0.2) K/uL Platelet Estimate Decreased L (Normal) PT 11.8 (9.0-12.0) Seconds INR 1.2 H (0.9-1.1) APTT 28.6 (21.0-31.0) Seconds PTT Ratio 1.1 Sodium (136-145) mmol/L Potassium (3.5-5.1) mmol/L Chloride (98-107) mmol/L Carbon Dioxide (21-32) mmol/L Anion Gap (3-11) BUN (7-18) mg/dl Creatinine (0.6-1.2) mg/dl Est Cr Clr Drug Dosing ml/min Est GFR ( Amer) Est GFR (Non-Af Amer) BUN/Creatinine Ratio (10-20) Glucose (70-99) mg/dl Lactate (0.4-2.0) mmol/L Calcium (8.5-10.1) mg/dl Phosphorus (2.5-4.9) mg/dl Magnesium (1.8-2.4) mg/dl Total Bilirubin (0.2-1) mg/dl AST (15-37) U/L ALT (12-78) U/L Alkaline Phosphatase (45-117) U/L Total Protein (6.4-8.2) gm/dl Albumin (3.4-5.0) gm/dl Globulin (2.5-4.0) gm/dl Albumin/Globulin Ratio (0.9-2) Procalcitonin < 0.05 (0-0.5) ng/ml Urine Color Urine Appearance (Clear) Urine pH (4.5-7.5) Ur Specific [place] (1.000-1.030) Urine Protein (Negative) Urine Glucose (UA) (Negative) Urine Ketones (Negative) Urine Blood (Negative) Urine Nitrite (Negative) Urine Bilirubin (Negative) Urine Urobilinogen (Negative) Ur Leukocyte Esterase (Negative) 07/20/18 07/20/18 07/20/18 Range/Units 10:02 10:02 10:02 WBC (4.8-10.8) K/uL RBC (4.2-5.4) M/uL Hgb (12.0-16.0) g/dL Hct (37-47) % MCV (80-100) fL MCH (25-34) pg MCHC (32-36) g/dL RDW Std Deviation (36.4-46.3) fL RDW Coeff of [place] (11.5-14.5) % Plt Count (130-400) K/uL MPV (7.4-10.4) fL Immature Gran % (Auto) % Neut % (Auto) % Lymph % (Auto) % Moody % (Auto) % Eos % (Auto) % Baso % (Auto) % Immature Gran # (Auto) (0.00-0.02) K/uL Neut # (Auto) (1.4-6.5) K/uL Lymph # (Auto) (1.2-3.4) K/uL Moody # (Auto) (0.11-0.59) K/uL Eos # (Auto) (0-0.5) K/uL Baso # (Auto) (0-0.2) K/uL Platelet Estimate (Normal) PT (9.0-12.0) Seconds INR (0.9-1.1) APTT (21.0-31.0) Seconds PTT Ratio Sodium 140 (136-145) mmol/L Potassium 4.0 (3.5-5.1) mmol/L Chloride 106 (98-107) mmol/L Carbon Dioxide 26 (21-32) mmol/L Anion Gap 8.0 (3-11) BUN 10 (7-18) mg/dl Creatinine 0.39 L (0.6-1.2) mg/dl Est Cr Clr Drug Dosing 141.9 ml/min Est GFR ( Amer) > 150.0 Est GFR (Non-Af Amer) > 150.0 BUN/Creatinine Ratio 25.8 H (10-20) Glucose 92 (70-99) mg/dl Lactate 0.9 (0.4-2.0) mmol/L Calcium 9.1 (8.5-10.1) mg/dl Phosphorus 3.6 (2.5-4.9) mg/dl Magnesium 2.3 (1.8-2.4) mg/dl Total Bilirubin 0.3 (0.2-1) mg/dl AST 13 L (15-37) U/L ALT 12 (12-78) U/L Alkaline Phosphatase 82 (45-117) U/L Total Protein 7.3 (6.4-8.2) gm/dl Albumin 3.1 L (3.4-5.0) gm/dl Globulin 4.2 H (2.5-4.0) gm/dl Albumin/Globulin Ratio 0.7 L (0.9-2) Procalcitonin (0-0.5) ng/ml Urine Color Urine Appearance (Clear) Urine pH (4.5-7.5) Ur Specific [place] (1.000-1.030) Urine Protein (Negative) Urine Glucose (UA) (Negative) Urine Ketones (Negative) Urine Blood (Negative) Urine Nitrite (Negative) Urine Bilirubin (Negative) Urine Urobilinogen (Negative) Ur Leukocyte Esterase (Negative) 07/20/18 Range/Units 10:25 WBC (4.8-10.8) K/uL RBC (4.2-5.4) M/uL Hgb (12.0-16.0) g/dL Hct (37-47) % MCV (80-100) fL MCH (25-34) pg MCHC (32-36) g/dL RDW Std Deviation (36.4-46.3) fL RDW Coeff of [place] (11.5-14.5) % Plt Count (130-400) K/uL MPV (7.4-10.4) fL Immature Gran % (Auto) % Neut % (Auto) % Lymph % (Auto) % Moody % (Auto) % Eos % (Auto) % Baso % (Auto) % Immature Gran # (Auto) (0.00-0.02) K/uL Neut # (Auto) (1.4-6.5) K/uL Lymph # (Auto) (1.2-3.4) K/uL Moody # (Auto) (0.11-0.59) K/uL Eos # (Auto) (0-0.5) K/uL Baso # (Auto) (0-0.2) K/uL Platelet Estimate (Normal) PT (9.0-12.0) Seconds INR (0.9-1.1) APTT (21.0-31.0) Seconds PTT Ratio Sodium (136-145) mmol/L Potassium (3.5-5.1) mmol/L Chloride (98-107) mmol/L Carbon Dioxide (21-32) mmol/L Anion Gap (3-11) BUN (7-18) mg/dl Creatinine (0.6-1.2) mg/dl Est Cr Clr Drug Dosing ml/min Est GFR ( Amer) Est GFR (Non-Af Amer) BUN/Creatinine Ratio (10-20) Glucose (70-99) mg/dl Lactate (0.4-2.0) mmol/L Calcium (8.5-10.1) mg/dl Phosphorus (2.5-4.9) mg/dl Magnesium (1.8-2.4) mg/dl Total Bilirubin (0.2-1) mg/dl AST (15-37) U/L ALT (12-78) U/L Alkaline Phosphatase (45-117) U/L Total Protein (6.4-8.2) gm/dl Albumin (3.4-5.0) gm/dl Globulin (2.5-4.0) gm/dl Albumin/Globulin Ratio (0.9-2) Procalcitonin (0-0.5) ng/ml Urine Color Dark Yellow Urine Appearance Clear (Clear) Urine pH 8.0 H (4.5-7.5) Ur Specific [place] 1.016 (1.000-1.030) Urine Protein Negative (Negative) Urine Glucose (UA) Negative (Negative) Urine Ketones Negative (Negative) Urine Blood Negative (Negative) Urine Nitrite Negative (Negative) Urine Bilirubin Negative (Negative) Urine Urobilinogen Negative (Negative) Ur Leukocyte Esterase Negative (Negative) Imaging Data Radiologist's Impression: Radiology results as stated below per my review and the radiologist's interpretation: XR chest 1V portable HISTORY: Sepsis COMPARISON: Chest 10/28/2017. FINDINGS: No pneumothorax. No pleural effusions. The heart is normal in size. A tracheostomy tube appears in good position. Patchy and linear left basilar densities have slightly progressed. A few small linear density within the right lung base favor scarring or atelectasis. The upper lung zones are clear. A gastrostomy tube is noted. IMPRESSION: Progressive patchy and linear densities within the left lung base. This may represent a pneumonia, possibly secondary to aspiration. Electronically signed by: Edmund Dorman M.D. 07/20/2018 10:16 AM Blood Pressure Blood Pressure Findings: Normal blood pressure MDM Narrative There is a mild leukocytosis, this could be consistent with infection. No concerning anemia. The platelet count was slightly low at 99. No worrisome coagulopathy. No significant electrolyte abnormality or kidney failure. Lactic acid level was not elevated making sepsis less likely. No elevation to the liver enzymes. Procalcitonin was normal. Chest film shows a left lower lung pneumonia. Urinalysis is not suggestive of infection. Blood cultures are pending. The patient received IV saline, she was given IV Zosyn as antibiotic coverage. Respiratory did arrive and place her on mist protocol. I spoke to Dr. Matthew, the patient's typical court recorder, he recommended a hospital stay because of the pneumonia, the hypoxia and her underlying past medical issues. I spoke to the patient's family and caregiver. Hospitalization is warranted. Case management has been involved. The on-call hospitalist was consulted. Impression & Plan Hypoxia, Pneumonia, Fever Discharge Plan Visit Data *Final* Discharge Date/Time: 07/20/18 13:01 Chief Complaint: Respiratory Problems Stated Complaint: LOW 02, RESP SYMPTOMS ED Provider: Wily Hendricks Discharge Problem: Hypoxia, Pneumonia, Fever Patient Disposition: Admitted As Inpatient Discharge Instructions Interventions: ED Discharge Assessment Last Done: 07/20/18 13:01 Discharge Problem: Pneumonia Qualifiers: Pneumonia type: due to unspecified organism Laterality: left Lung location: lower lobe of lung Qualified Code(s): J18.1 - Lobar pneumonia, unspecified organism Fever Qualifiers: Fever type: unspecified Qualified Code(s): R50.9 - Fever, unspecified The scribe's documentation has been prepared under my direction and personally reviewed by me in its entirety. I confirm that the note above accurately reflects all work, treatment, procedures, and medical decision making performed by me.
[2018-07-20] MEDS: guaiFENesin SUGAR FREE 100 MG/5 ML UDC PO SCH (18:03)
[2018-07-20] MEDS: ACETAMINOPHEN 325 MG TAB PO PRN (18:03)
[2018-07-20] MEDS: ALBUTEROL 0.5% NEB SOLN 2.5 MG/0.5 ML VIAL NEB SCH (19:12)
[2018-07-20] MEDS: FERROUS SULFATE 325 MG/7.4 ML UDP PO SCH (20:48)
[2018-07-20] MEDS: TRAZODONE HCL 50 MG TAB GT SCH (20:49)
[2018-07-20] MEDS: ZONISAMIDE 100 MG PO SCH (20:51)
[2018-07-21] MEDS: PIPERACILLIN/TAZOBACTAM 3.375 GM in DEXTROSE 5% 100 ML IV SCH ×4 (00:22→23:35)
[2018-07-21] MEDS: guaiFENesin SUGAR FREE 100 MG/5 ML UDC PO SCH ×4 (00:22→18:31)
[2018-07-21] MEDS: SODIUM CHLORIDE 0.9% 1000ML 1,000 ML IV SCH (03:41)
[2018-07-21] MEDS: BUDESONIDE 0.5 MG/2 ML VIAL (PULMICORT) INH SCH ×2 (07:02→16:45)
[2018-07-21] MEDS: ALBUTEROL 0.083% NEBU SOLN 3 ML VIAL INH PRN ×2 (07:03→16:45)
[2018-07-21] MEDS: FERROUS SULFATE 325 MG/7.4 ML UDP PO SCH (08:18)
[2018-07-21 08:23] LABS: Hematocrit (blood only) 37.7 % (37-47); Hemoglobin 13.3 g/dL (12.0-16.0); Mean Corpuscular Hgb Conc 35.3 g/dL (32-36); Mean Platelet Volume 9.3 fL (7.4-10.4); Platelet Count 73 K/uL (130-400); RDW Coefficient of Variation 12.3 % (11.5-14.5); RDW Standard Deviation 44.8 fL (36.4-46.3); Red Blood Count 3.77 M/uL (4.2-5.4); White Blood Count 3.54 K/uL (4.8-10.8)
[2018-07-21] MEDS ORDERED: Nursing to Pharmacy Communication STA (08:35)
[2018-07-21 08:56] LABS: BUN Creatinine Ratio 26.8 (10-20); Blood Urea Nitrogen 11 mg/dl (7-18); Calcium 9.1 mg/dl (8.5-10.1); Carbon Dioxide 28 mmol/L (21-32); Chloride 111 mmol/L (98-107); Creatinine Clr Calc Pharmacy 131.5 ml/min; Eosinophils # (auto) 0.02 K/uL (0-0.5); Eosinophils % (auto) 0.6 %; Est GFR (African American) > 150.0; Est GFR (Non-African American) 146.5; Glucose 91 mg/dl (70-99); Immature Granulocytes # (auto) 0.01 K/uL (0.00-0.02); Immature Granulocytes % (auto) 0.3 %; Lymphocytes # (auto) 0.98 K/uL (1.2-3.4); Lymphocytes % (auto) 27.7 %; Monocytes # (auto) 0.28 K/uL (0.11-0.59); Monocytes % (auto) 7.9 %; Neutrophils # (auto) 2.25 K/uL (1.4-6.5); Neutrophils % (auto) 63.5 %; Sodium 144 mmol/L (136-145)
[2018-07-21] MEDS ORDERED: NITROFURANTOIN MACROCRYSTAL 50 MG CAP PO SCH (09:00)
[2018-07-21 09:01] LABS: Prealbumin 19.6 mg/dl (20-40)
[2018-07-21] MEDS: NITROFURANTOIN 25 MG/5 ML PO SCH (10:03)
[2018-07-21] MEDS: FLUOXETINE HCL 20 MG/5 ML GT SCH (10:04)
[2018-07-21] MEDS: BACLOFEN 20 MG TAB PO SCH ×3 (10:05→20:54)
[2018-07-21] MEDS: CETIRIZINE HCL 10 MG TABLET PO SCH (10:05)
[2018-07-21] MEDS: VALPROIC ACID SOLN 500 MG/10 ML UDC PO SCH ×3 (10:07→20:55)
[2018-07-21] MEDS: ZONISAMIDE 100 MG PO SCH ×2 (10:07→20:55)
[2018-07-21] MEDS: POLYETHYLENE (MIRALAX) 17 GM PACK PEG PRN (10:17)
[2018-07-21] MEDS: ALBUTEROL 0.5% NEB SOLN 2.5 MG/0.5 ML VIAL NEB SCH ×2 (10:23→16:58)
[2018-07-21] MEDS: TOBRAMYCIN SULF 40 MG/ML 2 ML VIAL INH SCH ×2 (10:30→16:51)
--- NOTE | 2018-07-21 12:13 | Hospitalist Progress Note ---
Date of Service July 21, 2018 Assessment & Plan (1) Pneumonia: Patient with reported elevated temperature, increased tracheal secretions, and oxygen demand. CXR on 07/20 suggestive of possible LLL PNA. 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 - Trach culture sent from ER, follow result - Continue Zosyn 4.5gm IV q 8 - Continue supplemental O2 as needed via trach collar, humidified - Albuterol BID and PRN - Budesonide BID - Guaifenasin PRN - Tobramycin nebs BID - Respiratory therapy for percussion vest (2) Thrombocytopenia: Platelets 99 on admission. No active bleeding. Likely decreased in setting of acute infection. - On 07/21, plt lower at 73. (3) Cerebral palsy: Patient with CP. Full assist, bed bound, non-verbal, does not follow commands or participate in exam. - All feeds and medications through PEG tube - Boost 350mL at rate of 400 QID with free H2O flushes 120mL before and after feeds - Aspiration precautions - External female catheter and diaper - Skin precautions with frequent turning and offloading heels as needed - Valproic Acid BID for seizures - Clonazepam PRN seizures - Continue Fluoxetine - Continue Baclofen - Continue Zyrtec - Continue nitrofurantoin - Continue Zonisamide - Continue Trazodone (4) DVT prophylaxis: SCDs - Low DVT risk per admission calculator Subjective Restless. Review of Systems Review of Systems: Unobtainable due to cognitive status Physical Exam Constitutional: WD/WN, vitals as above + acute distress and + frail appearing Eyes: EOM intact bilaterally; no conjunctival abnormality ENMT: external ear and nose normal, oropharynx normal Neck: trachea midline, no thyromegaly normal visual inspection Respiratory: + labored breathing Auscultation: + rhonchi; no wheezes Cardiovascular: RRR, no murmur, no edema Gastrointestinal (Abdomen): Inspection/Auscultation: abdomen normal to inspection; abdomen not distended Musculoskeletal: no cyanosis or clubbing, extremities motor strength 5/5 Skin: no rashes, warm and dry Neurologic: moves all extremities and awake Psychiatric: Orientation: alert, oriented to person and cooperative Results & Data Vital Signs (Past 12 Hours) Vital Signs Temp Pulse Pulse Resp BP BP Pulse Ox 07/21/18 12:00 36.7 C 78 18 90/67 L 95 07/21/18 07:08 36.6 C 79 95 H 20 118/69 95 07/21/18 07:04 72 18 95 07/21/18 04:00 36.8 C 76 24 99/66 L 99 (1) Pneumonia Pneumonia type: due to unspecified organism Laterality: left Lung location: lower lobe of lung Qualified Code(s): J18.1 - Lobar pneumonia, unspecified organism (2) Cerebral palsy Cerebral palsy type: unspecified type Qualified Code(s): G80.9 - Cerebral palsy, unspecified
[2018-07-21] MEDS ORDERED: VANCOMYCIN CONSULT ACTIVE PRN (18:23)
[2018-07-21] MEDS ORDERED: VANCOMYCIN HCL 1,000 MG in SODIUM CHLORIDE 0.9% 250 ML IV SCH (19:00)
--- NOTE | 2018-07-21 19:16 | Pulmonary Consultation ---
Date of Consultation July 21, 2018 Assessment & Plan (1) Cerebral palsy: management per primary team Cerebral palsy type: unspecified type Qualified Code(s): G80.9 - Cerebral palsy, unspecified Present on Admission?: Yes (2) Pneumonia: Would add vancomycin until cultures result. Patient is likelly to have LL pneumonia. Alternatively blood cultures may be contaminated (1 bottle only the aerobic bottle) repeat blood cultures continue zosyn supplement O2 via trach collar and titrate to SpO2 92-94% If patient does not improve rapidly we may add pulmozyme to clear secretions. continue inhaled tobramycin Laterality: left Lung location: lower lobe of lung Pneumonia type: due to unspecified organism Qualified Code(s): J18.1 - Lobar pneumonia, unspecified organism Present on Admission?: Yes (3) Acute respiratory failure with hypoxemia: In addition to above would use albuterol Q4-6 PRN The patient is on inhaled steroids and at this point it is unclear to me why she is on it. IF she has reactive airway obstruction then we need to continue it. If she has no obstruction inhaled steroids do increase risk of respiratory infections slightly and I would hold off heparin for DVT prophylaxis Thank you for allowing me to participate in the management of this patient. History of Present Illness Reason for Consultation: Acute respiratory failure of hypoxemic variety Requesting Physician: Joseph Reid Attending Physician: Joseph Reid MD History of Present Illness This is a 22 yo female known to have cerebral palsey since childhood. She is s/p tracheostomy and was brought in to the hospital because o an episode of T 99.1 via axillary route and desaturation. Apparently she is not on O2 via trach collar usually. She was started on zosyn and admitted for further management. CXR shows loss of hemidiaphragm at the left lung base and it may represent pneumonia. I went up to see the patient and there was no adult at bedside and she could not provide history. Connected her to pulse oximetry She saturates 93% on 28-30% FIO2. She was not in distress and had multiple contractions. She is growing G+ Cocci from blood in one bottle and sputum is growing G -ve bacilli with normal dawit. She is on inhaled tobramycin Allergies Allergy/AdvReac Type Severity Reaction Status Date / Time No Known Allergies Allergy Unverified 07/20/18 10:41 Home Medications Home Medications Medication Instructions Recorded Confirmed Type Lactobacillus acidophilus 4 tab FEEDING TUBE TIDM 07/20/18 07/20/18 History acetylcysteine 07/20/18 History acetylcysteine 3 ml INHALATION BID 07/20/18 07/20/18 History albuterol sulfate 2.5 mg INHALATION Q4H PRN 07/20/18 07/20/18 History ascorbic acid (vitamin C) [Vitamin 500 mg FEEDING TUBE BID 07/20/18 07/20/18 History C] baclofen 20 mg FEEDING TUBE TID 07/20/18 07/20/18 History budesonide 2 ml INHALATION BID 07/20/18 07/20/18 History cetirizine 10 mg FEEDING TUBE DAILY 07/20/18 07/20/18 History clonazepam 0.5 mg FEEDING TUBE DIRECTED 07/20/18 07/20/18 History fluoxetine 10 mg FEEDING TUBE DAILY 07/20/18 07/20/18 History food supplemt, lactose-reduced 1.3 ea PO TID 07/20/18 07/20/18 History [Boost] glycopyrrolate 0.5 mg FEEDING TUBE BID 07/20/18 07/20/18 History guaifenesin 100 mg PO Q6H 07/20/18 07/20/18 History nitrofurantoin 50 mg FEEDING TUBE DAILY 07/20/18 07/20/18 History polyethylene glycol 3350 8.5 g FEEDING TUBE DAILY PRN 07/20/18 07/20/18 History tobramycin 4 cap INHALATION Q12H 07/20/18 07/20/18 History trazodone 50 mg FEEDING TUBE HS 07/20/18 07/20/18 History valproic acid (as sodium salt) 550 mg FEEDING TUBE TID 07/20/18 07/21/18 History zonisamide 100 mg FEEDING TUBE HS 07/20/18 07/20/18 History zonisamide 200 mg FEEDING TUBE QAM 07/20/18 07/20/18 History Patient History Medical History Hypoxia (Acute) PNA (pneumonia) (Acute) Pleural effusion (Acute) Cerebral palsy Seizure disorder Surgical History S/P percutaneous endoscopic gastrostomy (PEG) tube placement Status post tracheostomy Family History Other Family history non-contributory Social History Preferred Language: Citizen Of [place] Communication Ability: Unable Communication Ability Comment: has trach and cp non vocal Beliefs That Will Affect Care: None Current Living Situation: Parent Current Living Situation Comment: parent Other Information That Helps Us Care for You: No Feels Safe at Home: Yes Safety Concerns: Feels Safe At This Time Smoking Status: Never smoker Hx Alcohol Use: No Hx Substance Use: No Review of Systems Review of Systems: Unobtainable due to mental health condition Physical Exam Constitutional: contracted and non responsive with nystagmus upon stimulation Eyes: nystagmus but pupils reactive ENMT: external ear and nose normal, oropharynx normal Neck: trach in place no secretions at this point Respiratory: diminished air entry in the dependent left lung Clear air entry but small tidal volumes on the right Cardiovascular: RRR, no murmur, no edema Gastrointestinal (Abdomen): soft non tender PEG tube in place and site clean Musculoskeletal: multiple contractures with stage 1 decubiti on the heals. cold hands but not clammy and no cyanosis Skin: normal turgor of the skin but cold extremities Neurologic: non responsive to verbal or painful stimuli. She develops nystagmus to stimulation Results & Data Vital Signs (Past 12 Hours) Vital Signs Temp Pulse Pulse Pulse Resp BP BP 07/21/18 16:59 98 H 20 07/21/18 15:31 36.7 C 96 H 18 90/56 L 07/21/18 12:00 36.7 C 78 18 90/67 L 07/21/18 08:00 80 07/21/18 07:08 36.6 C 79 95 H 20 118/69 07/21/18 07:04 72 18 Pulse Ox 07/21/18 16:59 96 07/21/18 15:31 93 07/21/18 12:00 95 07/21/18 08:00 07/21/18 07:08 95 07/21/18 07:04 95
[2018-07-21] MEDS: TRAZODONE HCL 50 MG TAB GT SCH (20:54)
[2018-07-22] MEDS: guaiFENesin SUGAR FREE 100 MG/5 ML UDC PO SCH ×5 (00:01→23:11)
[2018-07-22] MEDS ORDERED: SODIUM CHLORIDE 0.9% NEBU SOLN 3 ML NEB ONE (00:18)
[2018-07-22] MEDS ORDERED: SODIUM CHLORIDE 0.9% 1000ML 250 ML IV ONE (00:20)
[2018-07-22] MEDS: ALBUTEROL 0.083% NEBU SOLN 3 ML VIAL INH PRN ×3 (01:04→19:06)
[2018-07-22] MEDS: VANCOMYCIN HCL 750 MG in SODIUM CHLORIDE 0.9% 250 ML IV SCH ×2 (04:32→11:42)
--- NOTE | 2018-07-22 06:53 | XRay Report ---
XR chest 1V portable CLINICAL HISTORY: Shortness of breath. COMPARISON STUDY: Chest radiograph July 20, 2018. FINDINGS: Tracheostomy tube is in place. Left lower lobe airspace opacity has increased since exam of July 12, 2018. There may be a trace left pleural effusion. There is no pneumothorax. Cardiac size is normal. Mediastinal contours are normal. There is suspected left lower lobe volume loss. IMPRESSION: Increase in left lower lobe airspace opacity with volume loss. This may reflect left low er lobe collapse or pneumonia. Radiographic follow-up to ensure resolution is recommended. Electronically signed by: Otto Pearce M.D. 07/22/2018 6:52 AM
[2018-07-22] MEDS: ALBUTEROL 0.5% NEB SOLN 2.5 MG/0.5 ML VIAL NEB SCH ×2 (07:04→23:20)
[2018-07-22] MEDS: BUDESONIDE 0.5 MG/2 ML VIAL (PULMICORT) INH SCH ×2 (07:04→19:06)
[2018-07-22] MEDS: NITROFURANTOIN 25 MG/5 ML PO SCH (07:27)
[2018-07-22] MEDS: BACLOFEN 20 MG TAB PO SCH ×3 (07:28→21:37)
[2018-07-22] MEDS: FLUOXETINE HCL 20 MG/5 ML GT SCH (07:28)
[2018-07-22] MEDS: ZONISAMIDE 100 MG PO SCH ×2 (07:29→21:38)
[2018-07-22] MEDS: CETIRIZINE HCL 10 MG TABLET PO SCH (07:29)
[2018-07-22] MEDS: VALPROIC ACID SOLN 500 MG/10 ML UDC PO SCH ×3 (07:30→21:35)
[2018-07-22] MEDS: PIPERACILLIN/TAZOBACTAM 3.375 GM in DEXTROSE 5% 100 ML IV SCH ×3 (07:55→23:11)
[2018-07-22 08:58] LABS: Hematocrit (blood only) 33.8 % (37-47); Hemoglobin 11.7 g/dL (12.0-16.0); Mean Corpuscular Hgb Conc 34.6 g/dL (32-36); Mean Corpuscular Volume 99.4 fL (80-100); RDW Coefficient of Variation 12.1 % (11.5-14.5); RDW Standard Deviation 43.7 fL (36.4-46.3); White Blood Count 6.74 K/uL (4.8-10.8)
[2018-07-22 09:04] LABS: Mean Platelet Volume 9.5 fL (7.4-10.4); Platelet Count 87 K/uL (130-400)
[2018-07-22 09:38] LABS: BUN Creatinine Ratio 15.9 (10-20); Blood Urea Nitrogen 8 mg/dl (7-18); Calcium 8.6 mg/dl (8.5-10.1); Carbon Dioxide 30 mmol/L (21-32); Chloride 108 mmol/L (98-107); Creatinine Clr Calc Pharmacy 123.8 ml/min; Est GFR (African American) > 150.0; Est GFR (Non-African American) 140.2; Glucose 128 mg/dl (70-99); Potassium 3.6 mmol/L (3.5-5.1); Sodium 140 mmol/L (136-145)
--- NOTE | 2018-07-22 12:02 | Pharmacy Report ---
Pharmacy Abx Dose Short Note - Date of Service July 22, 2018 - Assessment & Plan Assessment * 22 year old F receiving ZOSYN IV for possible PNA (caregiver reports of low grade fever/chills and increasing O2 requirements) * Patient has h/o cerebral palsy and also trach placement * Day # 3 of ZOSYN antimicrobial therapy * Pharmacy consulted to initiate IV VANCOMYCIN therapy last evening due to GPC in blood cx. * GPC are in clusters and are growing in 1 bottle of 1 set of blood cx's. All other bottles remain negative to date. * PCR testing was performed on this BLCX and staph aureus was not detected. Therefore this organism is likely CoN Staph (contaminant?) * Sputum Cx is growing ps aeruginosa sensitive to Zosyn as well as other ABX Plan Vancomycin * Last evening 1000mg loading dose was given followed by 750mg (~16.6mg/kg) IV Q 8 hr * Goal trough level for bacteremia : 15 to 20 mcg/mL * Trough level ordered for: 07/23/18 w/ 4th maint dose * Vancomycin 750mg IV Q 8 hrs did not produce a therapeutic trough in the past for this patient, however at that time she did weigh more and her SCr was 0.28 vs 0.48 today. Zosyn * continue 3.375gm ext-infusion over 4 hrs Q 8 hrs * BMI < 35 * eCrCl > 20cc/min Pharmacy will continue to follow and will adjust dose/frequency as necessary. Thank you.
[2018-07-22] MEDS ORDERED: ACETYLCYSTEINE 10% INHAL SOLN **DISPENSED FROM RESP. INH STA (15:28)
--- NOTE | 2018-07-22 16:22 | Hospitalist Progress Note ---
Date of Service July 22, 2018 Assessment & Plan (1) Pneumonia: Patient with reported elevated temperature, increased tracheal secretions, and oxygen demand. CXR on 07/20 suggestive of possible LLL PNA. 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 - Trach culture sent from ER, follow result - Continue Zosyn 4.5gm IV q 8 - Continue supplemental O2 as needed via trach collar, humidified - Albuterol BID and PRN - Budesonide BID - Guaifenasin PRN - Tobramycin nebs BID - Respiratory therapy for percussion vest & bed - Repeat CXR in the morning. CT scan if LLL not improving. (2) Thrombocytopenia: Platelets 99 on admission. No active bleeding. Likely decreased in setting of acute infection. - On 07/21, plt lower at 73, then up to 87 on 07/22. (3) Cerebral palsy: Patient with CP. Full assist, bed bound, non-verbal, does not follow commands or participate in exam. - All feeds and medications through PEG tube - Boost 350mL at rate of 400 QID with free H2O flushes 120mL before and after feeds - Aspiration precautions - External female catheter and diaper - Skin precautions with frequent turning and offloading heels as needed - Valproic Acid BID for seizures - Clonazepam PRN seizures - Continue Fluoxetine - Continue Baclofen - Continue Zyrtec - Continue nitrofurantoin - Continue Zonisamide - Continue Trazodone (4) DVT prophylaxis: SCDs - Low DVT risk per admission calculator I spent 35 minutes counseling the patient's mother in the patient's presence and discussing the current state, treatment course, and prognosis of her disease, including her pneumonia, steps for CXR/CT, and abx therapy. Subjective Unable to respond. Review of Systems 2 Review of Systems: Unobtainable due to mental health condition and Unobtainable due to cognitive status Physical Exam Constitutional: WD/WN, vitals as above + acute distress and + frail appearing Eyes: EOM intact bilaterally; no conjunctival abnormality ENMT: external ear and nose normal, oropharynx normal Neck: trachea midline, no thyromegaly normal visual inspection Respiratory: + labored breathing Auscultation: + rhonchi; no wheezes Cardiovascular: RRR, no murmur, no edema Gastrointestinal (Abdomen): Inspection/Auscultation: abdomen normal to inspection; abdomen not distended Musculoskeletal: no cyanosis or clubbing, extremities motor strength 5/5 Skin: no rashes, warm and dry Neurologic: moves all extremities and awake Psychiatric: Orientation: alert Results & Data Vital Signs (Past 12 Hours) Vital Signs Temp Pulse Pulse Resp BP BP Pulse Ox 07/22/18 12:02 36.8 C 83 25 H 96/70 L 97 07/22/18 07:25 37 C 98 H 28 H 96/73 L 96 07/22/18 07:13 96 H 20 94 (1) Pneumonia Pneumonia type: due to unspecified organism Laterality: left Lung location: lower lobe of lung Qualified Code(s): J18.1 - Lobar pneumonia, unspecified organism (2) Cerebral palsy Cerebral palsy type: unspecified type Qualified Code(s): G80.9 - Cerebral palsy, unspecified
[2018-07-22] MEDS: ACETAMINOPHEN 325 MG TAB PO PRN (18:23)
[2018-07-22] MEDS ORDERED: NORMOSOL-R 250 ML IV ONE (19:02)
[2018-07-22] MEDS ORDERED: VANCOMYCIN TROUGH ONE (19:30)
[2018-07-22] MEDS ORDERED: OPTIRAY 320 125ml IV PRN (19:57)
--- NOTE | 2018-07-22 20:19 | CT Scan Report ---
CT ANGIOGRAM OF THE CHEST CLINICAL HISTORY: Cerebal palsy - Increasing O2 demand; hypoxic POSSIBLE PULMONARY EMBOLISM. COMPARISON STUDY: 07/27/2017 TECHNIQUE: Following the IV administration of 115 mL of Optiray-320, CT angiogram of the thorax was p erformed from the thoracic inlet to the lung bases utilizing the pulmonary embolus protocol. Images a re reviewed in the axial, sagittal, and coronal planes. IV contrast was administered without complica tion. MIP imaging was performed. A dose lowering technique was utilized adhering to the principles o f ALARA. CT DOSE: 208.54 mGy.cm FINDINGS: No pathologically enlarged axillary mediastinal or hilar lymph nodes were visualized. There is no evidence of thoracic aortic aneurysm. There is a left aortic arch with an aberrant right subclavian artery There were no pulmonary artery filling defects to indicate acute pulmonary embolism. No pleural effusions are visualized. There is obstruction of left mainstem bronchus, likely secondary to mucous plugging given the patient 's age. There is near complete left lung atelectasis with fluid-filled bronchi probably consultation is recommended. A tracheostomy tube is visualized. IMPRESSION: 1. No evidence of acute pulmonary embolism 2. Left aortic arch with an aberrant right subclavian artery 3. Left mainstem bronchus occlusion. There is an atelectatic fluid-filled left lung. Given the patien t's age, the findings are likely secondary to mucous plugging or secretions from pneumonia. Pulmonary consultation is recommended in follow-up. Electronically signed by: Galen Ham M.D. 07/22/2018 8:18 PM
[2018-07-22] MEDS ORDERED: ACETYLCYSTEINE 10% INHAL SOLN **DISPENSED FROM RESP. INH SCH (21:00)
[2018-07-22] MEDS: TRAZODONE HCL 50 MG TAB GT SCH (21:37)
--- NOTE | 2018-07-22 22:23 | Critical Care Consultation ---
Date of Consultation July 22, 2018 Assessment & Plan (1) Admitted to intensive care unit: Reason Critically Ill: 22-year-old female with acute on chronic respiratory failure with hypoxemia secondary to acute mucous plugging of the LEFT main bronchus. NEURO - * [facility] ICU: Unable to assess secondary to baseline mental status. * History of CP. * Continue home medications as prescribed. CARDIAC/VASCULAR - * No history of cardiovascular disease. * Monitor on telemetry. RESPIRATORY - * Acute on chronic hypoxic respiratory failure: * Secondary to significant LEFT mainstem mucous plugging. * Underwent bronchoscopy with moderate resolve symptoms. * Placed on BiPAP for 1 hour post bronc. * Post chest x-ray shows improvement. * We will continue with trach collar settings. * Continue with antibiotics. GI/NUTRITION - * Continue with tube feeds. RENAL/LYTES - * No significant electrolyte derangements. * IVF: Normosol at 80 mL's per hour - * Strict I&Os. ENDO - * No history of diabetes or thyroid disease * BSGs per unit protocol. ISS --> gtt per unit policy. HEME - * Stable H&H. ID - * LEFT lower lobe pneumonia * Continue with Zosyn and inhaled tobramycin. * Repeat pro-Deonte * Trend fever curve LINES/IV ACCESS - * PIVs x2 DVT PROPHYLAXIS: * SCDs I have personally spent 35 minutes of critical care time in the direct management of this patient. This is a life/limb threatening event. This includes time spent evaluating patient, direct bedside care, chart review, placing orders, interpretation of diagnostic studies, discussion with consultants, patient, and family members, as well as other required patient management activities. This time is exclusive of all separately billable procedures, and teaching time and separate from and in addition to any other critical care service time. Thank you for allowing us to participate in the care of this patient. Please refer to my attending physician's documentation for any further recommendations. (2) Acute respiratory failure with hypoxemia: (3) Cerebral palsy: (4) Fever: (5) Pneumonia: History of Present Illness Attending Physician: Joseph Reid MD Patient is a 22-year-old female with a significant past medical history of cerebral palsy with chronic respiratory failure requiring tracheostomy without chronic need for ventilatory support. Initially was admitted to this facility on 07/20 for new LEFT lower lobe pneumonia. Initially admitted to a monitored bed. Patient was doing well on Zosyn. She was started on tobramycin nebulizers as well. Patient had episode of desaturation with increasing work of breathing requiring transfer to the ICU for further evaluation and management. In route to the ICU, the patient underwent CTA with concerns for complete LEFT mainstem bronchus occlusion with atelectatic collapse of the LEFT lung. Upon arrival in the ICU, the patient is awake. She is as alert as I am seeing her in the past. Mild distress noted. Allergies Allergy/AdvReac Type Severity Reaction Status Date / Time No Known Allergies Allergy Unverified 07/20/18 10:41 Home Medications Home Medications Medication Instructions Recorded Confirmed Type Lactobacillus acidophilus 4 tab FEEDING TUBE TIDM 07/20/18 07/20/18 History acetylcysteine 07/20/18 History acetylcysteine 3 ml INHALATION BID 07/20/18 07/20/18 History albuterol sulfate 2.5 mg INHALATION Q4H PRN 07/20/18 07/20/18 History ascorbic acid (vitamin C) [Vitamin 500 mg FEEDING TUBE BID 07/20/18 07/20/18 History C] baclofen 20 mg FEEDING TUBE TID 07/20/18 07/20/18 History budesonide 2 ml INHALATION BID 07/20/18 07/20/18 History cetirizine 10 mg FEEDING TUBE DAILY 07/20/18 07/20/18 History clonazepam 0.5 mg FEEDING TUBE DIRECTED 07/20/18 07/20/18 History fluoxetine 10 mg FEEDING TUBE DAILY 07/20/18 07/20/18 History food supplemt, lactose-reduced 1.3 ea PO TID 07/20/18 07/20/18 History [Boost] glycopyrrolate 0.5 mg FEEDING TUBE BID 07/20/18 07/20/18 History guaifenesin 100 mg PO Q6H 07/20/18 07/20/18 History nitrofurantoin 50 mg FEEDING TUBE DAILY 07/20/18 07/20/18 History polyethylene glycol 3350 8.5 g FEEDING TUBE DAILY PRN 07/20/18 07/20/18 History tobramycin 4 cap INHALATION Q12H 07/20/18 07/20/18 History trazodone 50 mg FEEDING TUBE HS 07/20/18 07/20/18 History valproic acid (as sodium salt) 550 mg FEEDING TUBE TID 07/20/18 07/21/18 History zonisamide 100 mg FEEDING TUBE HS 07/20/18 07/20/18 History zonisamide 200 mg FEEDING TUBE QAM 07/20/18 07/20/18 History Patient History Medical History Hypoxia (Acute) PNA (pneumonia) (Acute) Pleural effusion (Acute) Cerebral palsy Seizure disorder Surgical History S/P percutaneous endoscopic gastrostomy (PEG) tube placement Status post tracheostomy Family History Other Family history non-contributory Social History Preferred Language: [place] Communication Ability: Unable Communication Ability Comment: has trach and cp non vocal Beliefs That Will Affect Care: None Current Living Situation: Parent Current Living Situation Comment: parent Other Information That Helps Us Care for You: No Feels Safe at Home: Yes Safety Concerns: Feels Safe At This Time Smoking Status: Never smoker Hx Alcohol Use: No Hx Substance Use: No Review of Systems Review of Systems: Unobtainable due to cognitive status Physical Exam Physical Exam: VITAL SIGNS - Vital signs and nursing notes were reviewed. GENERAL - 22-year-old female appearing younger than her stated age. SKIN - Without rashes. HEAD - NC/AT. EYES - PERRL with EOMI bilaterally. Nystagmus noted. EARS - No deformities of external structures noted on gross examination bilaterally. NOSE - Midline and without cyanosis. MOUTH/OROPHARYNX - Without perioral cyanosis. NECK - Neck with FROM. Supple to palpation. LUNGS - Chest wall symmetric with mild distress. Coarse breath sounds throughout. CARDIAC - RRR with S1/S2. No murmur, rubs, or gallops appreciated. ABDOMEN - Abdominal contour flat without pulsations or visible masses. BS normoactive all four quadrants. No tenderness, palpable masses, hepatosplenomegaly, or ascites noted. EXTREMITIES - No clubbing or peripheral cyanosis. Contractures noted. NEUROLOGIC - Unable to assess secondary to baseline CP. Results & Data Vital Signs (Past 12 Hours) Vital Signs Temp Pulse Pulse Pulse Pulse Resp BP 07/22/18 22:00 109 H 40 H 94/61 L 07/22/18 21:45 104 H 30 H 94/65 L 07/22/18 21:30 110 H 35 H 102/62 07/22/18 21:15 117 H 39 H 89/60 L 07/22/18 21:06 112 H 37 H 105/61 07/22/18 21:00 110 H 37 H 87/55 L 07/22/18 20:30 117 H 35 H 07/22/18 20:05 112 H 17 103/76 07/22/18 19:20 37.5 C 114 H 32 H 07/22/18 19:08 105 H 30 H 07/22/18 16:32 115 H 18 07/22/18 15:00 106 H 07/22/18 12:02 36.8 C 83 25 H BP Pulse Ox 07/22/18 22:00 90 07/22/18 21:45 94 07/22/18 21:30 91 07/22/18 21:15 92 07/22/18 21:06 94 07/22/18 21:00 95 07/22/18 20:30 91 07/22/18 20:05 99 07/22/18 19:20 99/67 L 95 07/22/18 19:08 96 07/22/18 16:32 90 07/22/18 15:00 07/22/18 12:02 96/70 L 97 (1) Cerebral palsy Cerebral palsy type: unspecified type Qualified Code(s): G80.9 - Cerebral palsy, unspecified (2) Fever Fever type: unspecified Qualified Code(s): R50.9 - Fever, unspecified (3) Pneumonia Pneumonia type: due to unspecified organism Laterality: left Lung location: lower lobe of lung Qualified Code(s): J18.1 - Lobar pneumonia, unspecified organism
[2018-07-22] MEDS: NORMOSOL-R 1,000 ML IV SCH (22:27)
[2018-07-23] MEDS ORDERED: VANCOMYCIN TROUGH ONE (03:30)
[2018-07-23 05:05] LABS: Hematocrit (blood only) 28.8 % (37-47); Mean Corpuscular Hgb Conc 34.7 g/dL (32-36); Mean Corpuscular Volume 99.7 fL (80-100); RDW Coefficient of Variation 12.2 % (11.5-14.5); RDW Standard Deviation 43.9 fL (36.4-46.3); Red Blood Count 2.89 M/uL (4.2-5.4); White Blood Count 13.32 K/uL (4.8-10.8)
[2018-07-23 05:33] LABS: Immature Granulocytes # (auto) 0.02 K/uL (0.00-0.02); Immature Granulocytes % (auto) 0.2 %; Lymphocytes # (auto) 1.08 K/uL (1.2-3.4); Lymphocytes % (auto) 8.1 %; Monocytes # (auto) 1.16 K/uL (0.11-0.59); Monocytes % (auto) 8.7 %; Neutrophils # (auto) 11.06 K/uL (1.4-6.5); Platelet Count 72 K/uL (130-400); RBC Morphology Unremarkable
[2018-07-23 05:41] LABS: BUN Creatinine Ratio 26.2 (10-20); Blood Urea Nitrogen 7 mg/dl (7-18); Carbon Dioxide 25 mmol/L (21-32); Chloride 106 mmol/L (98-107); Creatinine Clr Calc Pharmacy 237.7 ml/min; Est GFR (African American) > 150.0; Est GFR (Non-African American) > 150.0; Glucose 70 mg/dl (70-99); Magnesium 2.2 mg/dl (1.8-2.4); Phosphorus 3.1 mg/dl (2.5-4.9); Potassium 3.8 mmol/L (3.5-5.1); Sodium 138 mmol/L (136-145)
[2018-07-23] MEDS: guaiFENesin SUGAR FREE 100 MG/5 ML UDC PO SCH ×4 (05:53→23:32)
--- NOTE | 2018-07-23 06:25 | XRay Report ---
XR chest 1V portable CLINICAL HISTORY: f/u cxr dyspnea COMPARISON STUDY: 07/22/2018 FINDINGS: Persistent opacification left lung base. Differential includes as was noted on the prior CT exam. Lungs otherwise are clear tracheostomy tube remains in good position. Right lung remains clear . IMPRESSION: Persistent unchanging opacification left lung base. Persistent narrowing and/or occlusio n left lower lobe bronchus. The above report was generated using voice recognition software. It may contain grammatical, syntax or spelling errors. Electronically signed by: Erik Shook M.D. 07/23/2018 6:23 AM
[2018-07-23] MEDS: NORMOSOL-R 1,000 ML IV SCH ×2 (06:40→18:27)
[2018-07-23] MEDS: BUDESONIDE 0.5 MG/2 ML VIAL (PULMICORT) INH SCH ×2 (07:08→17:13)
[2018-07-23] MEDS: ALBUTEROL 0.083% NEBU SOLN 3 ML VIAL INH PRN ×2 (07:08→19:47)
[2018-07-23] MEDS: ACETYLCYSTEINE 10% INHAL SOLN **DISPENSED FROM RESP. INH SCH ×2 (07:09→19:45)
--- NOTE | 2018-07-23 07:09 | XRay Report ---
XR chest 1V portable CLINICAL HISTORY: Pneumonia; worsening in LLL COMPARISON STUDY: Chest CT July 22, 2018. Chest radiograph July 22, 2018 11:36 PM. FINDINGS: Tracheostomy tube is in place. Extensive left lower lobe airspace opacity with volume loss is noted. Left upper lobe airspace opacity is noted. Left lung aeration has decreased. Right lung is clear. There is no evidence for pulmonary edema. No pneumothorax is present. Small left pleural effus ion is noted. IMPRESSION: Progressive extensive left mid and lower lung airspace opacity with volume loss. This fa vors pneumonia, potentially on the basis of aspiration. Electronically signed by: Otto Pearce M.D. 07/23/2018 7:08 AM
[2018-07-23] MEDS: VALPROIC ACID SOLN 500 MG/10 ML UDC PO SCH ×3 (08:04→20:54)
[2018-07-23] MEDS: FLUOXETINE HCL 20 MG/5 ML GT SCH (08:06)
[2018-07-23] MEDS: BACLOFEN 20 MG TAB PO SCH ×3 (08:06→20:54)
[2018-07-23] MEDS: NITROFURANTOIN 25 MG/5 ML PO SCH (08:06)
[2018-07-23] MEDS: CETIRIZINE HCL 10 MG TABLET PO SCH (08:06)
[2018-07-23] MEDS: ZONISAMIDE 100 MG PO SCH ×2 (08:07→20:56)
[2018-07-23] MEDS: TOBRAMYCIN SULF 40 MG/ML 2 ML VIAL INH SCH ×2 (08:17→17:23)
[2018-07-23] MEDS: TUBE FEEDING WATER FLUSH GT SCH ×3 (08:28→18:14)
[2018-07-23] MEDS: PIPERACILLIN/TAZOBACTAM 3.375 GM in DEXTROSE 5% 100 ML IV SCH ×3 (09:37→23:32)
[2018-07-23] MEDS: ALBUTEROL 0.5% NEB SOLN 2.5 MG/0.5 ML VIAL NEB SCH ×2 (11:40→17:13)
--- NOTE | 2018-07-23 14:30 | Hospitalist Progress Note ---
Date of Service July 23, 2018 Assessment & Plan (1) Pneumonia: Patient with reported elevated temperature, increased tracheal secretions, and oxygen demand. CXR on 07/20 suggestive of possible LLL PNA. 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 Trach culture derek wing Pseuadmonas. - Continue Zosyn 4.5gm IV q 8 - Continue supplemental O2 as needed via trach collar, humidified - Albuterol BID and PRN - Budesonide BID - Guaifenasin PRN - Tobramycin nebs BID - Discussed with Dr. Rogers -> Concentration of inhaled tobra is much higher (17x) than bloodstream concentration, so still may be helping despite her most recent culture being resistant to tobramycin. - Respiratory therapy for percussion vest & bed - CTA chest on 07/22 showed mucus plug of left mainstem bronchus. S/p bronch with improved oxygenation and more comfortable appearing. Will remain in ICU for now. (2) Thrombocytopenia: Platelets 99 on admission. No active bleeding. Likely decreased in setting of acute infection. - On 07/21, plt lower at 73, then up to 87 on 07/22. - Still low on 07/23; will continue to monitor. (3) Cerebral palsy: Patient with CP. Full assist, bed bound, non-verbal, does not follow commands or participate in exam. - All feeds and medications through PEG tube - Boost 350mL at rate of 400 QID with free H2O flushes 120mL before and after feeds - Aspiration precautions - External female catheter and diaper - Skin precautions with frequent turning and offloading heels as needed - Valproic Acid BID for seizures - Clonazepam PRN seizures - Continue Fluoxetine - Continue Baclofen - Continue Zyrtec - Continue nitrofurantoin - Continue Zonisamide - Continue Trazodone (4) DVT prophylaxis: SCDs - Low DVT risk per admission calculator Subjective Unable to repsond. Review of Systems Review of Systems: Unobtainable due to cognitive status Physical Exam Constitutional: WD/WN, vitals as above + acute distress and + frail appearing Eyes: EOM intact bilaterally; no conjunctival abnormality ENMT: external ear and nose normal, oropharynx normal Neck: trachea midline, no thyromegaly normal visual inspection Respiratory: + labored breathing Auscultation: + rhonchi; no wheezes Cardiovascular: RRR, no murmur, no edema Gastrointestinal (Abdomen): Inspection/Auscultation: abdomen normal to inspection; abdomen not distended Musculoskeletal: no cyanosis or clubbing, extremities motor strength 5/5 Skin: no rashes, warm and dry Neurologic: moves all extremities and awake Psychiatric: Orientation: alert Results & Data Vital Signs (Past 12 Hours) Vital Signs Temp Pulse Pulse Resp BP BP Pulse Ox 07/23/18 12:00 96 H 35 H 101/71 94 07/23/18 11:00 93 H 24 104/68 95 07/23/18 10:00 94 H 24 97/57 L 97 07/23/18 09:45 88 23 92/66 L 95 07/23/18 09:00 91 H 29 H 92/66 L 95 07/23/18 08:14 98 H 20 96 07/23/18 08:01 99 H 15 94 07/23/18 08:00 36.6 C 90 96 H 24 105/73 93/66 L 92 07/23/18 07:25 92 H 18 94 07/23/18 07:15 101 H 18 94 07/23/18 07:00 93 H 22 93/66 L 95 07/23/18 06:00 90 31 H 94/60 L 99 07/23/18 05:00 86 30 H 103/57 L 98 07/23/18 04:00 36.5 C 99 H 29 H 105/61 98 07/23/18 03:00 86 29 H 102/59 L 99 07/23/18 02:30 87 32 H 92/54 L 100 Pulse Ox 07/23/18 12:00 98 07/23/18 11:00 07/23/18 10:00 07/23/18 09:45 07/23/18 09:00 07/23/18 08:14 07/23/18 08:01 07/23/18 08:00 07/23/18 07:25 07/23/18 07:15 07/23/18 07:00 07/23/18 06:00 07/23/18 05:00 07/23/18 04:00 07/23/18 03:00 07/23/18 02:30 (1) Pneumonia Pneumonia type: due to unspecified organism Laterality: left Lung location: lower lobe of lung Qualified Code(s): J18.1 - Lobar pneumonia, unspecified organism (2) Cerebral palsy Cerebral palsy type: unspecified type Qualified Code(s): G80.9 - Cerebral palsy, unspecified
--- NOTE | 2018-07-23 15:41 | Critical Care Progress Note ---
Date of Service July 23, 2018 Assessment & Plan (1) Admitted to intensive care unit: Reason Critically Ill: 22-year-old female with acute on chronic respiratory failure with hypoxemia secondary to acute mucous plugging of the LEFT main bronchus. s/p bronch with reexpansion of the left lung NEURO - * Unable to assess secondary to baseline mental status. * History of CP. * Continue home medications as prescribed. CARDIAC/VASCULAR - * No history of cardiovascular disease. * Monitor on telemetry. RESPIRATORY - * Acute on chronic hypoxic respiratory failure: currently saturating 96%on 40% FiO2 with RR 22 * Secondary to significant LEFT mainstem mucous plugging. * Underwent bronchoscopy with moderate resolve symptoms. * Placed on BiPAP for 1 hour post bronc. * Post chest x-ray shows improvement. * We will continue with trach collar settings. * Continue with antibiotics. GI/NUTRITION - * Continue with tube feeds. RENAL/LYTES - * No significant electrolyte derangements. * IVF: Normosol at 80 mL's per hour - * Strict I&Os. ENDO - * No history of diabetes or thyroid disease * BSGs per unit protocol. ISS --> gtt per unit policy. HEME - * Stable H&H. ID - * LEFT lower lobe pneumonia * Continue with Zosyn and inhaled tobramycin. * Repeat pro-Deonte * Trend fever curve LINES/IV ACCESS - * PIVs x2 DVT PROPHYLAXIS: * SCDs I have personally spent 35 minutes of critical care time in the direct management of this patient. If she continues to progress with no plugging [facility]. (2) Acute respiratory failure with hypoxemia: (3) Cerebral palsy: management per primary team (4) Fever: (5) Pneumonia: Subjective Patient deveoped mucous plug and was brought into the ICU last evening where she underwent bronch and excessive mucous plugs were removed from the CORRINE and LLL bronchi. Then she was placed on BIPAP for an hour or so via the trach with resultant reexpansion of the LL. The patient now seems comfortable. She is not tachypneic and not in distress. I performed bedside POCUS and there was no significant pleural fluid on the right. However, there is hepatization of the left lung base. We started pulmozyme nebulizer today.. Physical Exam Constitutional: not in distress ENMT: external ear and nose normal, oropharynx normal Neck: trachea midline, no thyromegaly Respiratory: Diminished air entry LLL but adequate air entry on the right and CORRINE field Cardiovascular: RRR, no murmur, no edema Gastrointestinal (Abdomen): PEG in place site clean. BS within normal Musculoskeletal: contracted with dressings on the heals b/l no edema Results & Data Vital Signs (Past 12 Hours) Vital Signs Temp Pulse Pulse Resp BP BP Pulse Ox 07/23/18 12:00 96 H 35 H 101/71 94 07/23/18 11:00 93 H 24 104/68 95 07/23/18 10:00 94 H 24 97/57 L 97 07/23/18 09:45 88 23 92/66 L 95 07/23/18 09:00 91 H 29 H 92/66 L 95 07/23/18 08:14 98 H 20 96 07/23/18 08:01 99 H 15 94 07/23/18 08:00 36.6 C 90 96 H 24 105/73 93/66 L 92 07/23/18 07:25 92 H 18 94 07/23/18 07:15 101 H 18 94 07/23/18 07:00 93 H 22 93/66 L 95 07/23/18 06:00 90 31 H 94/60 L 99 07/23/18 05:00 86 30 H 103/57 L 98 07/23/18 04:00 36.5 C 99 H 29 H 105/61 98 Pulse Ox 07/23/18 12:00 98 07/23/18 11:00 07/23/18 10:00 07/23/18 09:45 07/23/18 09:00 07/23/18 08:14 07/23/18 08:01 07/23/18 08:00 07/23/18 07:25 07/23/18 07:15 07/23/18 07:00 07/23/18 06:00 07/23/18 05:00 07/23/18 04:00 (1) Cerebral palsy Cerebral palsy type: unspecified type Qualified Code(s): G80.9 - Cerebral palsy, unspecified (2) Fever Fever type: unspecified Qualified Code(s): R50.9 - Fever, unspecified (3) Pneumonia Pneumonia type: due to unspecified organism Laterality: left Lung location: lower lobe of lung Qualified Code(s): J18.1 - Lobar pneumonia, unspecified organism
[2018-07-23] MEDS: DORNASE ALFA 2.5 ML AMP INH SCH ×2 (15:51→19:46)
[2018-07-23] MEDS: TRAZODONE HCL 50 MG TAB GT SCH (20:53)
--- NOTE | 2018-07-24 01:01 | Operative Report ---
DATE OF OPERATION: 07/22/2018 PROCEDURE: Flexible fiberoptic bronchoscopy. CONSENT: Obtained from her mother, Martha Alcala, as the patient herself has cerebral palsy and cannot consent. MONITORING: Continuous ECG monitoring, pulse oximetry monitoring, and blood pressure monitoring was carried throughout the procedure. ANESTHESIA: The patient had Versed for conscious sedation and liquid lidocaine for topical sedation. She has a tracheostomy in place. DESCRIPTION OF THE PROCEDURE: The flexible fiberoptic bronchoscope was inserted through the tracheostomy and the entire tracheobronchial tree was surveyed. The left bronchial tree was blocked with mucus plugs in the left mainstem and the lobar bronchi as well as the segmental and subsegmental bronchi both in the upper and the lower lobes. Excessive suctioning and toileting was performed until all airways were free of mucus plugs, at which point hemostasis was confirmed and the scope was retracted. The patient tolerated the procedure very well. COMPLICATIONS: None apparent. A post-procedure chest x-ray shows reexpansion of a collapsed left lung. I attest to the content of the Intraoperative Record and any orders documented therein. Any exception s are noted below.
[2018-07-24] MEDS: guaiFENesin SUGAR FREE 100 MG/5 ML UDC PO SCH ×4 (05:45→23:45)
[2018-07-24] MEDS: NORMOSOL-R 1,000 ML IV SCH ×2 (05:46→18:32)
[2018-07-24 06:29] LABS: Hematocrit (blood only) 34.8 % (37-47); Hemoglobin 12.3 g/dL (12.0-16.0); Mean Corpuscular Hgb Conc 35.3 g/dL (32-36); Mean Corpuscular Volume 99.4 fL (80-100); RDW Coefficient of Variation 12.2 % (11.5-14.5); RDW Standard Deviation 43.9 fL (36.4-46.3); White Blood Count 10.74 K/uL (4.8-10.8)
[2018-07-24 06:51] LABS: Platelet Count 88 K/uL (130-400)
[2018-07-24 07:11] LABS: BUN Creatinine Ratio 8.9 (10-20); Blood Urea Nitrogen 3 mg/dl (7-18); Calcium 9.1 mg/dl (8.5-10.1); Carbon Dioxide 26 mmol/L (21-32); Chloride 107 mmol/L (98-107); Est GFR (African American) > 150.0; Est GFR (Non-African American) > 150.0; Glucose 83 mg/dl (70-99); Magnesium 2.1 mg/dl (1.8-2.4); Potassium 4.1 mmol/L (3.5-5.1); Sodium 140 mmol/L (136-145)
--- NOTE | 2018-07-24 07:30 | XRay Report ---
XR chest 1V portable CLINICAL HISTORY: Follow-up examination. Abnormal chest x-ray. COMPARISON STUDY: 07/23/2018 FINDINGS: Tracheostomy tube remains unchanged in position. There is complete opacification of the lef t hemithorax with cardiac and mediastinal shift to the left. This suggests complete left lung atelect asis. The right lung is clear.[ IMPRESSION: 1. Complete opacification left hemithorax with cardiac and mediastinal shift to the left. The finding s suggest complete left lung atelectasis. Electronically signed by: Galen Ham M.D. 07/24/2018 7:28 AM
[2018-07-24] MEDS: ACETYLCYSTEINE 10% INHAL SOLN **DISPENSED FROM RESP. INH SCH ×2 (07:49→19:44)
[2018-07-24] MEDS: ALBUTEROL 0.5% NEB SOLN 2.5 MG/0.5 ML VIAL NEB SCH (07:50)
[2018-07-24] MEDS: BUDESONIDE 0.5 MG/2 ML VIAL (PULMICORT) INH SCH ×2 (07:50→19:44)
[2018-07-24] MEDS: DORNASE ALFA 2.5 ML AMP INH SCH ×3 (07:50→20:14)
[2018-07-24] MEDS: PIPERACILLIN/TAZOBACTAM 3.375 GM in DEXTROSE 5% 100 ML IV SCH ×3 (07:59→23:46)
[2018-07-24] MEDS: VALPROIC ACID SOLN 500 MG/10 ML UDC PO SCH ×3 (08:00→20:34)
[2018-07-24] MEDS: BACLOFEN 20 MG TAB PO SCH ×3 (08:00→20:32)
[2018-07-24] MEDS: FLUOXETINE HCL 20 MG/5 ML GT SCH (08:01)
[2018-07-24] MEDS: NITROFURANTOIN 25 MG/5 ML PO SCH (08:01)
[2018-07-24] MEDS: ZONISAMIDE 100 MG PO SCH ×2 (08:02→20:36)
[2018-07-24] MEDS: CETIRIZINE HCL 10 MG TABLET PO SCH (09:50)
[2018-07-24] MEDS ORDERED: MIDAZOLAM HCL 1 MG/ML 2ML VIAL ONE (10:16)
[2018-07-24] MEDS ORDERED: fentaNYL citrate 100 MCG/2 ML VIAL ONE (10:17)
[2018-07-24 12:15] LABS: iSTAT Allen Test Pass; iSTAT Arterial Blood Gas HCO3 24 meg/L (19-24); iSTAT Carbon Dioxide 25 mEq/l (24-31); iSTAT FiO2 100 %; iSTAT Site L Radial
--- NOTE | 2018-07-24 12:19 | Hospitalist Progress Note ---
Date of Service July 24, 2018 Assessment & Plan (1) Pneumonia: Patient with reported elevated temperature, increased tracheal secretions, and oxygen demand. CXR on 07/20 suggestive of possible LLL PNA. 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 Trach culture derek wing Pseuadmonas. - Continue Zosyn 4.5gm IV q 8 - Continue supplemental O2 as needed via trach collar, humidified - Albuterol BID and PRN - Budesonide BID - Guaifenasin PRN - Tobramycin nebs BID - Discussed with Dr. Rogers -> Concentration of inhaled tobra is much higher (17x) than bloodstream concentration, so still may be helping despite her most recent culture being resistant to tobramycin. - Respiratory therapy for percussion vest & bed - CTA chest on 07/22 showed mucus plug of left mainstem bronchus. S/p bronch with improved oxygenation and more comfortable appearing on 07/23 - On 07/24, patient underwent a bronch which caused hypoxemia. Remains in the ICU for now. (2) Thrombocytopenia: Platelets 99 on admission. No active bleeding. Likely decreased in setting of acute infection. - On 07/21, plt lower at 73, then up to 87 on 07/22. - Still low on 07/24, but stable; will continue to monitor. (3) Cerebral palsy: Patient with CP. Full assist, bed bound, non-verbal, does not follow commands or participate in exam. - All feeds and medications through PEG tube - Boost 350mL at rate of 400 QID with free H2O flushes 120mL before and after feeds - Aspiration precautions - External female catheter and diaper - Skin precautions with frequent turning and offloading heels as needed - Valproic Acid BID for seizures - Clonazepam PRN seizures - Continue Fluoxetine - Continue Baclofen - Continue Zyrtec - Continue nitrofurantoin - Continue Zonisamide - Continue Trazodone (4) DVT prophylaxis: SCDs - Low DVT risk per admission calculator Subjective Unable to respond. Review of Systems Review of Systems: Unobtainable due to mental health condition Physical Exam Constitutional: WD/WN, vitals as above + acute distress and + frail appearing Eyes: EOM intact bilaterally; no conjunctival abnormality ENMT: external ear and nose normal, oropharynx normal Neck: trachea midline, no thyromegaly normal visual inspection Respiratory: + labored breathing Auscultation: + rhonchi; no wheezes Cardiovascular: RRR, no murmur, no edema Gastrointestinal (Abdomen): Inspection/Auscultation: abdomen normal to inspection; abdomen not distended Musculoskeletal: no cyanosis or clubbing, extremities motor strength 5/5 Skin: no rashes, warm and dry Neurologic: moves all extremities and awake Psychiatric: Orientation: alert Results & Data Vital Signs (Past 12 Hours) Vital Signs Pulse Resp BP Pulse Ox 07/24/18 08:00 99 H 07/24/18 05:26 118 H 28 H 98 07/24/18 04:00 99 H 30 H 118/80 95 07/24/18 03:00 100 H 16 109/67 93 07/24/18 02:00 94 H 31 H 104/72 94 07/24/18 01:00 94 H 21 110/71 95 (1) Pneumonia Pneumonia type: due to unspecified organism Laterality: left Lung location: lower lobe of lung Qualified Code(s): J18.1 - Lobar pneumonia, unspecified organism (2) Cerebral palsy Cerebral palsy type: unspecified type Qualified Code(s): G80.9 - Cerebral palsy, unspecified
[2018-07-24] MEDS: CASPOFUNGIN 50 MG in SODIUM CHLORIDE 0.9% 250 ML IV SCH (14:51)
--- NOTE | 2018-07-24 16:45 | XRay Report ---
XR chest 1V portable CLINICAL HISTORY: post bronch COMPARISON STUDY: 07/24/2018 FINDINGS: The tracheostomy tube remains unchanged in position. There is slight improved aeration of t he left hemithorax although there is still significant volume loss with cardiac shift to the left no pneumothorax is visualized.[ IMPRESSION: 1. Slight improved aeration of the left lung status post bronchoscopy. No evidence of pneumothorax. Electronically signed by: Galen Ham M.D. 07/24/2018 4:44 PM
--- NOTE | 2018-07-24 16:51 | Critical Care Progress Note ---
Date of Service July 24, 2018 Assessment & Plan (1) Admitted to intensive care unit: Reason Critically Ill: 22-year-old female with acute on chronic respiratory failure with hypoxemia secondary to acute mucous plugging of the LEFT main bronchus. s/p bronch with reexpansion of the left lung. Replugged again and developped profound hypoxemia requiring trach change and MV. NEURO - * Unable to assess secondary to baseline mental status. * History of CP. * Continue home medications as prescribed. CARDIAC/VASCULAR - * No history of cardiovascular disease. * Monitor on telemetry. RESPIRATORY - * Acute on chronic hypoxic respiratory failure: currently saturating 96%on 40% FiO2 with RR 22 * Secondary to significant LEFT mainstem mucous plugging. * Underwent bronchoscopy with moderate resolve symptoms. * Placed on MV post bronc. * Post chest x-ray shows improvement. * We will continue withMV and titrate O2 down. * Continue with antibiotics: Caspofungin and Zosyn GI/NUTRITION - * Continue with tube feeds. RENAL/LYTES - * No significant electrolyte derangements. * IVF: Normosol at 40 mL's per hour - * Strict I&Os. ENDO - * No history of diabetes or thyroid disease * BSGs per unit protocol. ISS --> gtt per unit policy. HEME - * Stable H&H. ID - * LEFT lower lobe pneumonia * Continue with Zosyn and inhaled tobramycin + caspofungin until cultures come back. Send Fungitel * Trend fever curve LINES/IV ACCESS - * PIVs x2 DVT PROPHYLAXIS: * SCDs I have personally spent 70 minutes of critical care time in the direct management of this patient. She is on vent will keep here and progress FiO2 down from 100% (2) Acute respiratory failure with hypoxemia: (3) Cerebral palsy: management per primary team (4) Fever: (5) Pneumonia: Subjective Patient collapsed her left lung again this am and we repeated mucous deplugging. This time it was worse and we had black greenish discoloration. She was hypoxic depite opening the lung. I changed the trach to a cuffed trach so we coulf ventilate her and after about 60 minutes she recovered her SpO2 into the >95% range Samples sent for culture and antifungal medication started. Will hold pulmozyme for now. Her mother is updated Will likely have to repeat the bronch again as the CXR is still showing partial collapse. Physical Exam Constitutional: not in distress ENMT: external ear and nose normal, oropharynx normal Neck: trachea midline, no thyromegaly Cardiovascular: RRR, no murmur, no edema Results & Data Vital Signs (Past 12 Hours) Vital Signs Temp Pulse Resp BP Pulse Ox 07/24/18 12:30 36.9 C 117 H 26 H 95/59 L 86 L 07/24/18 12:15 116 H 37 H 91/57 L 90 07/24/18 12:01 118 H 24 82 L 07/24/18 12:00 120 H 29 H 94/61 L 83 L 07/24/18 11:50 44 H 07/24/18 11:31 126 H 28 H 93/64 L 70 L 07/24/18 11:00 131 H 27 H 86 L 07/24/18 10:51 123 H 31 H 104/65 88 L 07/24/18 10:40 120 H 37 H 116/79 81 L 07/24/18 10:35 130 H 26 H 130/85 85 L 07/24/18 10:00 119 H 30 H 106/67 99 07/24/18 09:00 117 H 29 H 100/65 95 07/24/18 08:00 36.8 C 126 H 53 H 130/81 94 07/24/18 07:00 84 24 111/89 93 07/24/18 05:26 118 H 28 H 98 Critical Care Time Critical Care Time: Yes Total Critical Care Time: 70 70 min (1) Fever Fever type: unspecified Qualified Code(s): R50.9 - Fever, unspecified (2) Cerebral palsy Cerebral palsy type: unspecified type Qualified Code(s): G80.9 - Cerebral palsy, unspecified (3) Pneumonia Laterality: left Lung location: lower lobe of lung Pneumonia type: due to unspecified organism Qualified Code(s): J18.1 - Lobar pneumonia, unspecified organism
[2018-07-24] MEDS: ALBUTEROL 0.083% NEBU SOLN 3 ML VIAL NEB SCH (19:44)
[2018-07-24] MEDS: TRAZODONE HCL 50 MG TAB GT SCH (20:32)
--- NOTE | 2018-07-25 00:58 | Operative Report ---
DATE OF OPERATION: 07/24/2018 PROCEDURE: Flexible fiberoptic bronchoscopy for lung toileting and removal of plugs. INDICATIONS: Atelectatic left lung secondary to mucus plugging. CONSENT: Informed consent was obtained from her mother Ms. Fermin Alcala and the written consent was witnessed by the nursing staff and placed into the patient's chart. MONITORING: Throughout the procedure the patient was monitored with continuous ECG tracing, blood pressure monitoring and continuous pulse oximetry. ANESTHESIA: Topical 1% lidocaine was applied endotracheally to achieve topical anesthesia in this patient. DESCRIPTION OF THE PROCEDURE: The flexible fiberoptic bronchoscope was inserted through the tracheostomy and the left main stem bronchus was plugged with viscid multiple plugs, toileting went on for about 40 minutes during which the patient desaturated down into the 80s and we had to emergently change her tracheostomy tube since it does not have a cough and it does not allow for us to ventilate her. The patient had to be placed on the ventilator and then we continued toileting until the left upper lobe and the left lower lobe with their segments were all free of plugs; however, it was apparent that the patient has purulent secretions coming distally. At the conclusion of the procedure, the scope was retracted. It was noted that there was a greenish dark black discoloration of the airway, specifically in the left lung field and therefore we decided to start caspofungin on her and send the samples for culture for fungus, AFB as well as bacterial cultures. COMPLICATIONS: As described above, the patient desaturated and we had to change her tracheostomy. She was on mechanical ventilation with a BIPAP mode prior to the procedure and she remained on it after the procedure. The post-procedure chest x-ray shows only partial reexpansion of the left lung. I attest to the content of the Intraoperative Record and any orders documented therein. Any exceptions are noted below. LOREED
--- NOTE | 2018-07-25 02:02 | Operative Report ---
DATE OF OPERATION: 07/24/2018 PROCEDURE: Emergent change of the tracheostomy. Consent was obtained after the procedure verbally from her mom on the phone. INDICATIONS: The patient was desaturating during bronchoscopy and the previous trach had no cuff and we were unable to ventilate the patient. Given the choice of changing the trach or re-intubating the patient from above, we decided to change the trach to a size 4 trach with cuff. MONITORING: Throughout the procedure, the patient was monitored using continuous pulse oximetry, ECG tracing, and blood pressure monitoring. DESCRIPTION OF THE PROCEDURE: The Blue Rhino kit was opened emergently and a guidewire was inserted through the old tracheostomy. The old tracheostomy was removed. The tract was dilated and a size 4 tracheostomy tube was reinserted over the guidewire. This required a couple attempt because of fibrosis on the patient's skin. At the conclusion of the procedure, the patient was reattached to mechanical ventilation. COMPLICATIONS: None apparent. The patient is having adequate tidal volume, and over time, her saturation recovered. There was minor bleeding which stopped within minutes. I attest to the content of the Intraoperative Record and any orders documented therein. Any exception s are noted below.
[2018-07-25] MEDS: NORMOSOL-R 1,000 ML IV SCH ×2 (05:24→17:51)
[2018-07-25] MEDS: guaiFENesin SUGAR FREE 100 MG/5 ML UDC PO SCH ×4 (05:24→23:34)
[2018-07-25 05:26] LABS: Hematocrit (blood only) 30.1 % (37-47); Hemoglobin 10.6 g/dL (12.0-16.0); Mean Corpuscular Hgb Conc 35.2 g/dL (32-36); RDW Coefficient of Variation 12.3 % (11.5-14.5); RDW Standard Deviation 44.3 fL (36.4-46.3); Red Blood Count 3.01 M/uL (4.2-5.4); White Blood Count 13.81 K/uL (4.8-10.8)
[2018-07-25 05:32] LABS: Mean Platelet Volume 9.2 fL (7.4-10.4); Platelet Count 92 K/uL (130-400)
[2018-07-25 05:42] LABS: BUN Creatinine Ratio 16.4 (10-20); Blood Urea Nitrogen 5 mg/dl (7-18); Calcium 8.5 mg/dl (8.5-10.1); Carbon Dioxide 29 mmol/L (21-32); Chloride 107 mmol/L (98-107); Creatinine Clr Calc Pharmacy 203.2 ml/min; Est GFR (African American) > 150.0; Est GFR (Non-African American) > 150.0; Glucose 80 mg/dl (70-99); Magnesium 2.1 mg/dl (1.8-2.4); Potassium 3.7 mmol/L (3.5-5.1); Sodium 140 mmol/L (136-145)
[2018-07-25 05:55] LABS: Phosphorus 3.2 mg/dl (2.5-4.9)
[2018-07-25] MEDS: VALPROIC ACID SOLN 500 MG/10 ML UDC PO SCH ×3 (07:33→20:54)
[2018-07-25] MEDS: BACLOFEN 20 MG TAB PO SCH ×3 (07:33→20:51)
[2018-07-25] MEDS: FLUOXETINE HCL 20 MG/5 ML GT SCH (07:33)
[2018-07-25] MEDS: ZONISAMIDE 100 MG PO SCH ×2 (07:34→20:53)
[2018-07-25] MEDS: NITROFURANTOIN 25 MG/5 ML PO SCH (07:35)
[2018-07-25] MEDS: CASPOFUNGIN 50 MG in SODIUM CHLORIDE 0.9% 250 ML IV SCH (07:40)
[2018-07-25] MEDS: DORNASE ALFA 2.5 ML AMP INH SCH ×3 (08:09→20:03)
[2018-07-25] MEDS: BUDESONIDE 0.5 MG/2 ML VIAL (PULMICORT) INH SCH ×2 (08:09→19:25)
[2018-07-25] MEDS: ALBUTEROL 0.083% NEBU SOLN 3 ML VIAL NEB SCH ×2 (08:09→19:25)
[2018-07-25] MEDS: CETIRIZINE HCL 10 MG TABLET PO SCH (08:10)
[2018-07-25] MEDS: PIPERACILLIN/TAZOBACTAM 3.375 GM in DEXTROSE 5% 100 ML IV SCH ×2 (09:05→16:31)
[2018-07-25] MEDS ORDERED: POTASSIUM CHLORIDE 20 MEQ/15 ML UDC PEG STA (12:58)
--- NOTE | 2018-07-25 13:26 | Hospitalist Progress Note ---
Date of Service July 25, 2018 Assessment & Plan (1) Pneumonia: Patient with reported elevated temperature, increased tracheal secretions, and oxygen demand. CXR on 07/20 suggestive of possible LLL PNA. 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 Trach culture derek wing Pseuadmonas. - Continue Zosyn 4.5gm IV q 8 - Continue supplemental O2 as needed via trach collar, humidified - Albuterol BID and PRN - Budesonide BID - Guaifenasin PRN - Tobramycin nebs BID - Discussed with Dr. Rogers -> Concentration of inhaled tobra is much higher (17x) than bloodstream concentration, so still may be helping despite her most recent culture being resistant to tobramycin. - Respiratory therapy for percussion vest & bed - CTA chest on 07/22 showed mucus plug of left mainstem bronchus. S/p bronch with improved oxygenation and more comfortable appearing on 07/23. - On 07/24, patient underwent a bronch which caused hypoxemia and required trach change. Remains in the ICU for now. On 07/25, pulm/cc added caspofungin for concern for fungal infection. (2) Thrombocytopenia: Platelets 99 on admission. No active bleeding. Likely decreased in setting of acute infection. - On 07/21, plt lower at 73, then up to 87 on 07/22. - Still low on 07/25, but stable; will continue to monitor. (3) Cerebral palsy: Patient with CP. Full assist, bed bound, non-verbal, does not follow co mmands or participate in exam. - All feeds and medications through PEG tube - Boost 350mL at rate of 400 QID with free H2O flushes 120mL before and after feeds - Aspiration precautions - External female catheter and diaper - Skin precautions with frequent turning and offloading heels as needed - Valproic Acid BID for seizures - Clonazepam PRN seizures - Continue Fluoxetine - Continue Baclofen - Continue Zyrtec - Continue nitrofurantoin - Continue Zonisamide - Continue Trazodone (4) DVT prophylaxis: SCDs - Low DVT risk per admission calculator Dispo: Will remain in ICU for now. Still on BiPap through trach. Subjective Unable to respond Review of Systems Review of Systems: Unobtainable due to cognitive status Physical Exam Constitutional: WD/WN, vitals as above + acute distress and + frail appearing Eyes: EOM intact bilaterally; no conjunctival abnormality ENMT: external ear and nose normal, oropharynx normal Neck: trachea midline, no thyromegaly normal visual inspection Respiratory: + labored breathing Auscultation: + rhonchi; no wheezes Cardiovascular: RRR, no murmur, no edema Gastrointestinal (Abdomen): Inspection/Auscultation: abdomen normal to inspection; abdomen not distended Musculoskeletal: no cyanosis or clubbing, extremities motor strength 5/5 Skin: no rashes, warm and dry Neurologic: moves all extremities and awake Psychiatric: Orientation: alert Results & Data Vital Signs (Past 12 Hours) Vital Signs Temp Pulse Resp BP Pulse Ox 07/25/18 12:00 37.1 C 114 H 31 H 122/75 89 L 07/25/18 11:46 100 H 26 H 94 07/25/18 11:00 108 H 36 H 99/61 L 92 07/25/18 10:00 107 H 31 H 115/63 99 07/25/18 09:00 103 H 35 H 103/54 L 99 07/25/18 08:00 37.8 C H 98 H 101/64 100 07/25/18 07:58 94 H 33 H 100 07/25/18 07:00 100 H 34 H 107/64 100 07/25/18 06:30 101 H 23 98 07/25/18 06:00 36.9 C 105 H 31 H 99/58 L 100 07/25/18 05:00 104 H 33 H 100/58 L 97 07/25/18 04:00 110 H 28 H 100/64 88 L 07/25/18 03:00 107 H 22 95/61 L 99 07/25/18 02:06 112 H 33 H 97 07/25/18 02:00 110 H 29 H 114/64 97 (1) Pneumonia Pneumonia type: due to unspecified organism Laterality: left Lung location: lower lobe of lung Qualified Code(s): J18.1 - Lobar pneumonia, unspecified organism (2) Cerebral palsy Cerebral palsy type: unspecified type Qualified Code(s): G80.9 - Cerebral palsy, unspecified
--- NOTE | 2018-07-25 14:14 | Critical Care Progress Note ---
Date of Service July 25, 2018 Assessment & Plan (1) Admitted to intensive care unit: Reason Critically Ill: 22-year-old female with acute on chronic respiratory failure with hypoxemia secondary to acute mucous plugging of the LEFT main bronchus. s/p bronch with reexpansion of the left lung. Replugged again and developped profound hypoxemia requiring trach change and MV. NEURO - * Unable to assess secondary to baseline mental status. * History of CP. * Continue home medications as prescribed. CARDIAC/VASCULAR - * No history of cardiovascular disease. * Monitor on telemetry. RESPIRATORY - * Acute on chronic hypoxic respiratory failure: currently saturating 96%on 40% FiO2 with RR 22 * Secondary to significant LEFT mainstem mucous plugging. * Underwent bronchoscopy with moderate resolve symptoms. * Placed on MV post bronc. * Post chest x-ray shows improvement. * We will continue with MV and titrate O2 down. * Continue with antibiotics: Caspofungin and Zosyn GI/NUTRITION - * Continue with tube feeds. RENAL/LYTES - * No significant electrolyte derangements. * IVF: Normosol at 40 mL's per hour - * Strict I&Os. ENDO - * No history of diabetes or thyroid disease * BSGs per unit protocol. ISS --> gtt per unit policy. HEME - * Stable H&H. ID - * LEFT lower lobe pneumonia * Continue with Zosyn and inhaled tobramycin + caspofungin until cultures come back. Send Fungitel * Trend fever curve LINES/IV ACCESS - * PIVs x2 DVT PROPHYLAXIS: * SCDs I have personally spent 35 minutes of critical care time in the direct management of this patient. She is on vent will keep here and progress FiO2 down from 100% (2) Acute respiratory failure with hypoxemia: (3) Cerebral palsy: management per primary team (4) Fever: (5) Pneumonia: Subjective The patient remains in her usual non responsive state and she has revovered her saturation for most of the day. However, when suctioned she seems to desaturate. She remains on the vent and I am trying to wean her down on FiO2 but she seems to tolerate it as far as 45% to 50% but no more. The bed physiotherapy clears her secretions well. On bed chest physiotherapy she reinflated the left lung very well. We continued the pulozyme Physical Exam Constitutional: not in distress ENMT: external ear and nose normal, oropharynx normal Neck: trachea midline, no thyromegaly Cardiovascular: RRR, no murmur, no edema Results & Data Vital Signs (Past 12 Hours) Vital Signs Temp Pulse Resp BP Pulse Ox 07/25/18 12:00 37.1 C 114 H 31 H 122/75 89 L 07/25/18 11:46 100 H 26 H 94 07/25/18 11:00 108 H 36 H 99/61 L 92 07/25/18 10:00 107 H 31 H 115/63 99 07/25/18 09:00 103 H 35 H 103/54 L 99 07/25/18 08:00 37.8 C H 98 H 101/64 100 07/25/18 07:58 94 H 33 H 100 07/25/18 07:00 100 H 34 H 107/64 100 07/25/18 06:30 101 H 23 98 07/25/18 06:00 36.9 C 105 H 31 H 99/58 L 100 07/25/18 05:00 104 H 33 H 100/58 L 97 07/25/18 04:00 110 H 28 H 100/64 88 L 07/25/18 03:00 107 H 22 95/61 L 99 Critical Care Time Critical Care Time: Yes Total Critical Care Time: 35 35 min (1) Fever Fever type: unspecified Qualified Code(s): R50.9 - Fever, unspecified (2) Cerebral palsy Cerebral palsy type: unspecified type Qualified Code(s): G80.9 - Cerebral palsy, unspecified (3) Pneumonia Laterality: left Lung location: lower lobe of lung Pneumonia type: due to unspecified organism Qualified Code(s): J18.1 - Lobar pneumonia, unspecified organism
--- NOTE | 2018-07-25 15:22 | XRay Report ---
SINGLE VIEW CHEST CLINICAL HISTORY: Status post bronchoscopy. FINDINGS: An AP, portable, upright chest radiograph is compared to study dated 07/24/2018 and correlate d with chest CT dated 07/22/2018. The examination is degraded by portable technique and patient rotati on. A tracheostomy is again noted. The cardiomediastinal silhouette is unremarkable. There is a left pleural effusion with left basilar consolidation. There is improved aeration of the left lung as comp ared to yesterday. Right lung appears clear noting mild hyperinflation. No pneumothorax is seen. The bony thorax is grossly intact. IMPRESSION: There is a left pleural effusion with left basilar consolidation. There is significantly improved aeration of the left lung as compared to yesterday. Electronically signed by: Wily Nowak M.D. 07/25/2018 3:21 PM
[2018-07-25] MEDS: ACETYLCYSTEINE 10% INHAL SOLN **DISPENSED FROM RESP. INH SCH ×2 (15:23→19:25)
[2018-07-25] MEDS: IMIPENEM/CILASTATIN SODIUM 250 MG in DEXTROSE 5% 100 ML IV SCH ×2 (18:01→23:33)
[2018-07-25] MEDS: TRAZODONE HCL 50 MG TAB GT SCH (20:51)
[2018-07-26 04:49] LABS: Hematocrit (blood only) 30.2 % (37-47); Hemoglobin 10.3 g/dL (12.0-16.0); Mean Corpuscular Hgb Conc 34.1 g/dL (32-36); RDW Coefficient of Variation 12.6 % (11.5-14.5); RDW Standard Deviation 45.6 fL (36.4-46.3); Red Blood Count 2.99 M/uL (4.2-5.4); White Blood Count 8.93 K/uL (4.8-10.8)
[2018-07-26 04:53] LABS: Mean Platelet Volume 9.9 fL (7.4-10.4); Platelet Count 89 K/uL (130-400)
[2018-07-26 05:07] LABS: BUN Creatinine Ratio 17.6 (10-20); Blood Urea Nitrogen 5 mg/dl (7-18); Calcium 8.8 mg/dl (8.5-10.1); Carbon Dioxide 27 mmol/L (21-32); Chloride 107 mmol/L (98-107); Creatinine Clr Calc Pharmacy 196.7 ml/min; Est GFR (African American) > 150.0; Est GFR (Non-African American) > 150.0; Glucose 86 mg/dl (70-99); Sodium 138 mmol/L (136-145)
[2018-07-26 05:14] LABS: Phosphorus 3.8 mg/dl (2.5-4.9)
[2018-07-26] MEDS: guaiFENesin SUGAR FREE 100 MG/5 ML UDC PO SCH ×4 (05:14→23:42)
[2018-07-26] MEDS: IMIPENEM/CILASTATIN SODIUM 250 MG in DEXTROSE 5% 100 ML IV SCH ×5 (05:14→23:42)
[2018-07-26] MEDS: NORMOSOL-R 1,000 ML IV SCH (05:21)
--- NOTE | 2018-07-26 07:23 | XRay Report ---
XR chest 1V portable CLINICAL HISTORY: 22 years-old Female presenting with f/u. TECHNIQUE: Portable upright AP view of the chest was obtained. COMPARISON: 07/25/2018. FINDINGS: Tracheostomy tube remains in place. The patient is NICOLE rotated. Allowing for this, the cardiac silhou ette is grossly normal in size though now obscured along the left heart border due to increased left lung collapse. This appears to predominantly involve the left lower lobe though some degree of lingul ar collapse is also suggested. The right lung and pleural space are clear. A small left pleural effus ion may also be present. Osseous structures normal. IMPRESSION: 1. Extensive left lower lobe and lingular collapse/atelectasis. This has slightly increased from luis or. 2. Suspected left pleural effusion. Electronically signed by: Ray Rachel M.D. 07/26/2018 7:22 AM
[2018-07-26] MEDS: ACETYLCYSTEINE 10% INHAL SOLN **DISPENSED FROM RESP. INH SCH ×2 (07:43→20:08)
[2018-07-26] MEDS: ALBUTEROL 0.083% NEBU SOLN 3 ML VIAL NEB SCH ×2 (07:44→20:08)
[2018-07-26] MEDS: DORNASE ALFA 2.5 ML AMP INH SCH ×3 (07:45→20:34)
[2018-07-26] MEDS: BUDESONIDE 0.5 MG/2 ML VIAL (PULMICORT) INH SCH ×2 (07:45→20:08)
[2018-07-26] MEDS: CASPOFUNGIN 50 MG in SODIUM CHLORIDE 0.9% 250 ML IV SCH (08:02)
[2018-07-26] MEDS: TOBRAMYCIN SULF 40 MG/ML 2 ML VIAL INH SCH (08:04)
[2018-07-26] MEDS: NITROFURANTOIN 25 MG/5 ML PO SCH (08:05)
[2018-07-26] MEDS: BACLOFEN 20 MG TAB PO SCH ×3 (08:06→20:22)
[2018-07-26] MEDS: FLUOXETINE HCL 20 MG/5 ML GT SCH (08:06)
[2018-07-26] MEDS: VALPROIC ACID SOLN 500 MG/10 ML UDC PO SCH ×3 (08:07→20:22)
[2018-07-26] MEDS: CETIRIZINE HCL 10 MG TABLET PO SCH (08:08)
[2018-07-26] MEDS: ZONISAMIDE 100 MG PO SCH ×2 (08:08→20:23)
[2018-07-26 09:30] LABS: T4 Free Thyroxine 1.09 ng/dl (0.8-1.6)
--- NOTE | 2018-07-26 10:12 | Infectious Disease Consult ---
Date of Consultation July 26, 2018 Assessment & Plan (1) Pneumonia: would suggest 14 days of IV Imipenem as all pseudomonas isolates are sensitive to this. continue supportive care, suctioning. History of Present Illness Attending Physician: Jatinder Garcia pt admitted with increased fever and low O2 sats. was found to have LLL infiltrate, s/p bronch, found to have mucus plugging, aggressive suctioning with improvement. several bronch/trach cultures growing multiple strains of pseudomonas with varying sensitivities. afebrile, on vent. isolated temp 37.8 on 07/25. has cp, unable to provide ros. appears comfortable on exam. tolerating abx, currently on caspofungin, fungal smear/culture negative to date. was previously on zosyn and imipenem. ID consulted for pna. wbc 3.5 Initial blood cultures negative, 07/21 1 culture with manager of broadcast content, repeat cultures negative. Allergies Allergy/AdvReac Type Severity Reaction Status Date / Time No Known Allergies Allergy Unverified 07/20/18 10:41 Home Medications Home Medications Medication Instructions Recorded Confirmed Type Lactobacillus acidophilus 4 tab FEEDING TUBE TIDM 07/20/18 07/20/18 History acetylcysteine 07/20/18 History acetylcysteine 3 ml INHALATION BID 07/20/18 07/20/18 History albuterol sulfate 2.5 mg INHALATION Q4H PRN 07/20/18 07/20/18 History ascorbic acid (vitamin C) [Vitamin 500 mg FEEDING TUBE BID 07/20/18 07/20/18 History C] baclofen 20 mg FEEDING TUBE TID 07/20/18 07/20/18 History budesonide 2 ml INHALATION BID 07/20/18 07/20/18 History cetirizine 10 mg FEEDING TUBE DAILY 07/20/18 07/20/18 History clonazepam 0.5 mg FEEDING TUBE DIRECTED 07/20/18 07/20/18 History fluoxetine 10 mg FEEDING TUBE DAILY 07/20/18 07/20/18 History food supplemt, lactose-reduced 1.3 ea PO TID 07/20/18 07/20/18 History [Boost] glycopyrrolate 0.5 mg FEEDING TUBE BID 07/20/18 07/20/18 History guaifenesin 100 mg PO Q6H 07/20/18 07/20/18 History nitrofurantoin 50 mg FEEDING TUBE DAILY 07/20/18 07/20/18 History polyethylene glycol 3350 8.5 g FEEDING TUBE DAILY PRN 07/20/18 07/20/18 History tobramycin 4 cap INHALATION Q12H 07/20/18 07/20/18 History trazodone 50 mg FEEDING TUBE HS 07/20/18 07/20/18 History valproic acid (as sodium salt) 550 mg FEEDING TUBE TID 07/20/18 07/21/18 History zonisamide 100 mg FEEDING TUBE HS 07/20/18 07/20/18 History zonisamide 200 mg FEEDING TUBE QAM 07/20/18 07/20/18 History Patient History Medical History Hypoxia (Acute) PNA (pneumonia) (Acute) Pleural effusion (Acute) Cerebral palsy Seizure disorder Surgical History S/P percutaneous endoscopic gastrostomy (PEG) tube placement Status post tracheostomy Family History Other Family history non-contributory Social History Preferred Language: Kinyarwanda Communication Ability: Unable Communication Ability Comment: has trach and cp non vocal Beliefs That Will Affect Care: None Current Living Situation: Parent Current Living Situation Comment: parent Other Information That Helps Us Care for You: No Feels Safe at Home: Yes Safety Concerns: Feels Safe At This Time Smoking Status: Never smoker Hx Alcohol Use: No Hx Substance Use: No Review of Systems Review of Systems: Unobtainable due to cognitive status and Unobtainable due to endotracheal tube Physical Exam Constitutional: awake, non verbal. Eyes: PERRL, conjunctivae normal, anicteric sclerae ENMT: dry mm Neck: trachea midline trach c/d/i Respiratory: normal respiratory effort, lungs clear to auscultation Auscultation: + diminished lung sounds Cardiovascular: RRR, no murmur, no edema Gastrointestinal (Abdomen): normal bowel sounds, soft, nontender, no hepatospl enomegaly Musculoskeletal: contracted Skin: no rashes, warm and dry Psychiatric: comfortable, non verbal Results & Data Vital Signs (Past 12 Hours) Vital Signs Temp Pulse Resp BP Pulse Ox 07/26/18 07:46 97 H 22 100 07/26/18 05:26 111 H 25 H 88 L 07/26/18 04:00 36.9 C 96 H 109/61 93 07/26/18 03:00 89 100/69 98 07/26/18 02:00 101 H 25 H 103/63 96 07/26/18 01:00 93 H 103/66 98 07/26/18 00:00 36.9 C 105 H 93/53 L 92 07/25/18 23:25 100 H 25 H 94 07/25/18 23:00 36.7 C 102 H 114/70 96 07/25/18 22:18 36.9 C Laboratory Results Microbiology 07/24/18 10:40 Bronch [place], Left Lower Lobe Gram Stain - Final 07/24/18 10:40 Bronch [place], Left Lower Lobe Bronchoalveolar Lavage Culture - Final Pseudomonas aeruginosa 07/24/18 10:40 Bronch [place],Left Lower Lobe Fungal Smear - Final 07/24/18 10:40 Bronch Wash,Left Lower Lobe Fungal Culture - Preliminary No yeast or fungus isolated - Report 1, Additional Report to Follow. 07/20/18 10:15 Blood Aerobic Blood Culture - Final No growth in Aerobic bottle after 5 days. 07/20/18 10:15 Blood Anaerobic Blood Culture - Final 07/20/18 10:22 Blood Aerobic Blood Culture - Preliminary Coag neg staph not lugdunensis 07/20/18 10:22 Blood Anaerobic Blood Culture - Final No growth in Anaerobic bottle after 5 days. 07/22/18 21:50 Bronch [place], Left Lower Lobe Gram Stain - Final 07/22/18 21:50 Bronch [place], Left Lower Lobe Bronchoalveolar Lavage Culture - Final Pseudomonas aeruginosa 07/21/18 19:11 Blood Aerobic Blood Culture - Preliminary No growth in Aerobic bottle after 48 hours. 07/21/18 19:11 Blood Anaerobic Blood Culture - Final 07/21/18 19:22 Blood Aerobic Blood Culture - Preliminary No growth in Aerobic bottle after 48 hours. 07/21/18 19:22 Blood Anaerobic Blood Culture - Final 07/20/18 10:20 Sputum,Trach Gram Stain - Final 07/20/18 10:20 Sputum,Trach Sputum Culture - Final Pseudomonas aeruginosa (1) Pneumonia Laterality: left Lung location: lower lobe of lung Pneumonia type: due to unspecified organism Qualified Code(s): J18.1 - Lobar pneumonia, unspecified organism
[2018-07-26 10:46] LABS: iSTAT Art Bld Gas pH Corrected 7.305 (7.35-7.45); iSTAT Arterial Blood Gas pH 7.31 (7.35-7.45)
[2018-07-26 10:47] LABS: iSTAT Art Bld Gas pCO2 Correct 48 mmHg (35-46); iSTAT Arterial Blood Gas pCO2 48 mmHg (35-46)
[2018-07-26] MEDS ORDERED: PIPERACILLIN/TAZOBACTAM 3.375 GM in DEXTROSE 5% 100 ML IV SCH (12:00)
--- NOTE | 2018-07-26 13:27 | Critical Care Progress Note ---
Date of Service July 26, 2018 Assessment & Plan (1) Admitted to intensive care unit: Reason Critically Ill: 22-year-old female with acute on chronic respiratory failure with hypoxemia secondary to acute mucous plugging of the LEFT main bronchus. s/p bronch with reexpansion of the left lung. Replugged again and developped profound hypoxemia requiring trach change and MV. NEURO - * Unable to assess secondary to baseline mental status. * History of CP. At baseline * Continue home medications as prescribed. CARDIAC/VASCULAR - * No history of cardiovascular disease. * Monitor on telemetry. RESPIRATORY - * Acute on chronic hypoxic respiratory failure: currently saturating 96%on 40% FiO2 with RR 22 * Secondary to significant LEFT mainstem mucous plugging. * Underwent bronchoscopy with moderate resolve symptoms. * Placed on MV post bronc. * Post chest x-ray shows improvement. * We will continue with MV and titrate O2 down. * Continue with antibiotic imipenem GI/NUTRITION - * Continue with tube feeds * Hypoalbuminemia * Patient is 8 kg down from previous hospitalization in 2018. Reviewed Nutrition notes, reports increase from admission weight. -Protein calorie supplement added: Prosource 30mL daily. RENAL/LYTES - * Monitor lytes - * D/C [place] ENDO - * No history of diabetes or thyroid disease * BSGs per unit protocol. ISS --> gtt per unit policy. HEME - * Stable H&H. ID - * LEFT lower lobe pneumonia * Continue imepenem, and narendra nebs, can stop anti-fungal coverage. * Trend fever curve LINES/IV ACCESS - * PIVs x2 DVT PROPHYLAXIS: * SCDs * Patient at baseline functional status. Chemical prophylaxis. Patient still requiring high oxygen requirements will repeat bronchoscopy today. Was discussed in multidisciplinary rounds, I updated the patient's mother. I have personally spent 40 minutes of critical care time in the direct management of this patient. This is a life/limb threatening event. This includes time spent evaluating patient, direct bedside care, chart review, placing orders, interpretation of diagnostic studies, discussion with consultan ts, patient, and/or family members regarding treatment decisions, as well as other required patient management activities. This time is exclusive of all separately billable procedures, and teaching time and separate from and in addition to any other critical care service time. (2) Acute respiratory failure with hypoxemia: (3) Cerebral palsy: management per primary team (4) Fever: (5) Pneumonia: Subjective Patient non communicative this morning which is at her baseline. No family present at bedside Review of Systems Review of Systems: Unobtainable due to cognitive status and Unobtainable due to endotracheal tube Physical Exam Constitutional: + ill appearing, + cachectic, + altered mental status, + behavioral limitations and + physical limitations Eyes: PERRL, conjunctivae normal, anicteric sclerae Respiratory: + respiratory distress, + labored breathing and + retractions Auscultation: + crackles, + rales and + rhonchi On ventilator Cardiovascular: Rate/Rhythm: regular rhythm and + tachycardic Heart Sounds: no click, no gallop, no murmur and no cardiac rub Extremities: no edema Gastrointestinal (Abdomen): Percussion/Palpation: abdomen soft; abdomen nontender Skin: no rashes, warm and dry Neurologic: PERRL, EOMI, accommodation nl, no face palsy, no dysarthria moves all extremities Motor/Sensory: no tremor Results & Data Vital Signs (Past 12 Hours) Vital Signs Temp Pulse Resp BP Pulse Ox 07/26/18 05:26 111 H 25 H 88 L 07/26/18 04:00 36.9 C 96 H 109/61 93 07/26/18 03:00 89 100/69 98 07/26/18 02:00 101 H 25 H 103/63 96 07/26/18 01:00 93 H 103/66 98 07/26/18 00:00 36.9 C 105 H 93/53 L 92 07/25/18 23:25 100 H 25 H 94 07/25/18 23:00 36.7 C 102 H 114/70 96 07/25/18 22:18 36.9 C 07/25/18 22:00 36.9 C 105 H 103/59 L 97 07/25/18 21:00 109 H 115/68 95 07/25/18 20:45 119 H 107/63 86 L 07/25/18 20:00 118 H 94 Resident Activity Tracking Resident Involvement: Resident Care Provided Care Provided: Adult Hospital Medicine (1) Fever Fever type: unspecified Qualified Code(s): R50.9 - Fever, unspecified (2) Cerebral palsy Cerebral palsy type: unspecified type Qualified Code(s): G80.9 - Cerebral palsy, unspecified (3) Pneumonia Laterality: left Lung location: lower lobe of lung Pneumonia type: due to unspecified organism Qualified Code(s): J18.1 - Lobar pneumonia, unspecified organism
[2018-07-26] MEDS ORDERED: MIDAZOLAM HCL 5 MG/ML 1 ML VIAL IV STA (14:16)
--- NOTE | 2018-07-26 14:16 | Procedure Note ---
Procedure Note: Bronchoscopy Procedure Procedure date: July 26, 2018 Procedure: fiberoptic bronchoscopy Pre-procedure indication: Pulmonary infiltrate Post-procedure Diagnosis: same as above Prior to Procedure: Informed Consent: The risks, benefits, indications, potential complications, and alternatives were explained to the patient's mother and informed consent obtained. Attending Staff: Lavon Tariq DO Resident/APC: Not applicable Skin Prep: Not applicable Anesthesia: 4 mg IV Versed, 100 mcg The identity of the patient was confirmed and a bedside time out was performed. Description of Procedure: Fiberoptic bronchoscopy was performed via endotracheal tube. Bronchioalveolar lavage of the left lower lobes and right lower and middle lobes was performed. Findings included: Tenacious pink and white thick secretions Complications: [None] Specimens: Bronchial washings sent for culture and Gram stain, cytology, fungal elements, and AFB stain and culture. Estimated blood loss: Zero
[2018-07-26] MEDS ORDERED: MIDAZOLAM HCL 1 MG/ML 2ML VIAL ONE (14:18)
[2018-07-26] MEDS ORDERED: fentaNYL citrate 100 MCG/2 ML VIAL ONE (14:59)
[2018-07-26] MEDS: PROSOURCE NO CARB 30 ML/PKT PO SCH (15:11)
[2018-07-26] MEDS: TRAZODONE HCL 50 MG TAB GT SCH (20:22)
--- NOTE | 2018-07-26 20:25 | Hospitalist Progress Note ---
Date of Service July 26, 2018 Assessment & Plan (1) Acute respiratory failure with hypoxia and hypercapnia: 2nd to extensive LLL pneumonia and collapse. s/p multiple bronchs with removal of left-sided mucous plugs. Defer vent management, etc to critical care. Supportive care for pneumonia. Present on Admission?: Yes (2) Bronchopneumonia due to Pseudomonas species: LLL. Remains on imipenem. All cultures to date with pseudomonas. Has had such in the past suggesting colonization from this pathogen. ID consult completed - 14-day course of imipenem recommended. Cont supportive care. Present on Admission?: Yes (3) Cerebral palsy: nonambulatory, nonverbal at baseline. trach/PEG. seizure disorder. continue all home chronic meds. tube feedings via PEG. Present on Admission?: Yes (4) Thrombocytopenia: due to infection? prior b12, folate wnl. TSH mildly elevated but FreeT4 wnl. continue to follow. if related to infection the count should normalize with time. Present on Admission?: Yes (5) Anemia: Prior b12, folate levels normal. check iron studies AM. TSH minimally elevated; doubt it is playing any role. Present on Admission?: Yes (6) Pleural effusion, left: parapneumonic. no signs clinically of empyema. follow. Present on Admission?: Yes (7) Seizure disorder: cont home meds. no issues. Present on Admission?: Yes (8) Status post insertion of percutaneous endoscopic gastrostomy (PEG) tube: no issues cont home feeding regimen (9) DVT prophylaxis: consider heparin or lovenox mother updated at bedside Subjective patient nonverbal at baseline; no history or ROS can be obtained from patient during visit. mother at bedside -- questions asked about prevention of her pneumonia, etc. staff report thick secretions via ETT. tolerating tube feedings. at times requires high FIO2 and then with suctioning/repositioning her O2 sats improve. no other issues Review of Systems Review of Systems: Unobtainable due to mental health condition and Unobtainable due to cognitive status Physical Exam Constitutional: + ill appearing and + thin; no acute distress and no altered mental status ENMT: external ear and nose normal, oropharynx normal (no obvious thrush seen) trach with vent circuit in place Respiratory: Auscultation: + diminished lung sounds (left ) and + rales (left base); no wheezes course BS b/l, much worse on left Cardiovascular: Rate/Rhythm: regular rhythm and + tachycardic Heart Sounds: normal S1 and normal S2; no murmur Vessels: posterior tibial pulses present and dorsalis pedis pulses present; no JVD Extremities: no edema Gastrointestinal (Abdomen): normal bowel sounds, soft, nontender, no hepatosplenomegaly PEG tube in place Neurologic: dysmorphic features Psychiatric: Orientation: + not alert and + not oriented x 3 nonverbal at baseline Results & Data Vital Signs (Past 12 Hours) Vital Signs Temp Pulse Pulse Resp BP Pulse Ox Pulse Ox 07/26/18 20:17 113 H 22 100 07/26/18 20:03 100 H 22 100 07/26/18 17:30 104 H 112/65 100 07/26/18 17:00 105 H 114/67 100 07/26/18 16:31 105 H 105/63 100 07/26/18 16:00 37.1 C 104 H 22 109/65 100 100 07/26/18 15:45 105 H 22 96/63 L 100 07/26/18 15:40 113 H 22 100 07/26/18 15:35 108 H 116/60 99 07/26/18 15:26 115 H 100 07/26/18 15:15 106 H 102/52 L 97 07/26/18 15:14 107 H 97 07/26/18 15:12 106 H 97 07/26/18 15:10 108 H 98/62 L 98 07/26/18 15:08 113 H 99 07/26/18 15:06 116 H 94/51 L 99 07/26/18 15:04 125 H 96/63 L 100 07/26/18 15:02 123 H 101/71 100 07/26/18 15:01 145 H 133/68 100 07/26/18 15:00 151 H 94 07/26/18 14:58 146 H 123/78 100 07/26/18 14:56 135 H 114/57 L 100 07/26/18 14:54 138 H 117/58 L 100 07/26/18 14:53 136 H 122/67 100 07/26/18 14:52 134 H 100 07/26/18 14:51 132 H 111/61 100 07/26/18 14:50 128 H 100 07/26/18 14:48 129 H 122/78 100 07/26/18 14:46 133 H 127/73 99 07/26/18 14:00 140 H 125/66 95 07/26/18 13:00 103 H 117/78 97 07/26/18 12:00 36.9 C 90 96/56 L 97 07/26/18 11:00 100 H 106/65 98 07/26/18 10:42 100 H 37 H 97 07/26/18 10:00 100 H 95/57 L 100 07/26/18 09:00 101 H 83/53 L 95 Laboratory Results Laboratory Results - last 24 hr 07/24/18 07/26/18 07/26/18 12:02 04:20 04:20 WBC 8.93 RBC 2.99 L Hgb 10.3 L Hct 30.2 L MCV 101.0 H MCH 34.4 H MCHC 34.1 RDW Std Deviation 45.6 RDW Coeff of [place] 12.6 Plt Count 89 L MPV 9.9 POC pH 7.31 L POC pCO2 48 H POC pO2 52 L ABG pH (Temp Correct) 7.305 L ABG pCO2 (Temp Corrct 48 H POC ABG pO2 at Pt Temp 52 Sodium 138 Potassium 4.0 Chloride 107 Carbon Dioxide 27 Anion Gap 4.0 BUN 5 L Creatinine 0.31 L Est Cr Clr Drug Dosing 196.7 Est GFR ( Amer) > 150.0 Est GFR (Non-Af Amer) > 150.0 BUN/Creatinine Ratio 17.6 Glucose 86 Calcium 8.8 Phosphorus 3.8 Magnesium 2.0 Procalcitonin TSH Free T4 07/26/18 07/26/18 04:20 04:20 WBC RBC Hgb Hct MCV MCH MCHC RDW Std Deviation RDW Coeff of [place] Plt Count MPV POC pH POC pCO2 POC pO2 ABG pH (Temp Correct) ABG pCO2 (Temp Corrct POC ABG pO2 at Pt Temp Sodium Potassium Chloride Carbon Dioxide Anion Gap BUN Creatinine Est Cr Clr Drug Dosing Est GFR ( Amer) Est GFR (Non-Af Amer) BUN/Creatinine Ratio Glucose Calcium Phosphorus Magnesium Procalcitonin 0.27 TSH 5.430 H Free T4 1.09 (1) Cerebral palsy Cerebral palsy type: unspecified type Qualified Code(s): G80.9 - Cerebral palsy, unspecified (2) Anemia Anemia type: unspecified type Qualified Code(s): D64.9 - Anemia, unspecified
[2018-07-26] MEDS: ACETAMINOPHEN SOL 650 MG/20.3 ML UDC PEG PRN (23:47)
[2018-07-27 05:02] LABS: Eosinophils # (auto) 0.04 K/uL (0-0.5); Eosinophils % (auto) 0.6 %; Hematocrit (blood only) 30.9 % (37-47); Hemoglobin 10.4 g/dL (12.0-16.0); Immature Granulocytes # (auto) 0.02 K/uL (0.00-0.02); Immature Granulocytes % (auto) 0.3 %; Lymphocytes # (auto) 1.59 K/uL (1.2-3.4); Lymphocytes % (auto) 22.5 %; Mean Corpuscular Hgb Conc 33.7 g/dL (32-36); Mean Corpuscular Volume 100.3 fL (80-100); Mean Platelet Volume 8.7 fL (7.4-10.4); Monocytes # (auto) 0.62 K/uL (0.11-0.59); Monocytes % (auto) 8.8 %; Neutrophils # (auto) 4.81 K/uL (1.4-6.5); Neutrophils % (auto) 67.8 %; Platelet Count 112 K/uL (130-400); RDW Coefficient of Variation 12.2 % (11.5-14.5); RDW Standard Deviation 43.7 fL (36.4-46.3); Red Blood Count 3.08 M/uL (4.2-5.4); White Blood Count 7.08 K/uL (4.8-10.8)
[2018-07-27 05:31] LABS: BUN Creatinine Ratio 30.2 (10-20); Blood Urea Nitrogen 9 mg/dl (7-18); Calcium 9.2 mg/dl (8.5-10.1); Carbon Dioxide 30 mmol/L (21-32); Chloride 105 mmol/L (98-107); Creatinine Clr Calc Pharmacy 223.8 ml/min; Est GFR (African American) > 150.0; Est GFR (Non-African American) > 150.0; Glucose 85 mg/dl (70-99); Potassium 3.6 mmol/L (3.5-5.1); Sodium 139 mmol/L (136-145)
[2018-07-27 05:53] LABS: Ferritin 81.3 ng/ml (8-388); Iron 62 mcg/dl (35-150); Transferrin 240 mg/dl (200-360); Transferrin Percent Saturation 18 % (15-50)
[2018-07-27] MEDS: guaiFENesin SUGAR FREE 100 MG/5 ML UDC PO SCH ×4 (06:15→23:48)
[2018-07-27] MEDS: ACETAMINOPHEN SOL 650 MG/20.3 ML UDC PEG PRN ×2 (06:15→21:30)
[2018-07-27] MEDS: IMIPENEM/CILASTATIN SODIUM 250 MG in DEXTROSE 5% 100 ML IV SCH ×4 (06:16→23:48)
[2018-07-27] MEDS: POLYETHYLENE (MIRALAX) 17 GM PACK PEG PRN (06:16)
[2018-07-27 07:01] LABS: Phosphorus 4.8 mg/dl (2.5-4.9)
[2018-07-27] MEDS: TOBRAMYCIN SULF 40 MG/ML 2 ML VIAL INH SCH (07:13)
[2018-07-27] MEDS: BACLOFEN 20 MG TAB PO SCH ×3 (07:14→21:31)
[2018-07-27] MEDS: PROSOURCE NO CARB 30 ML/PKT PO SCH (07:14)
[2018-07-27] MEDS: NITROFURANTOIN 25 MG/5 ML PO SCH (07:14)
[2018-07-27] MEDS: ZONISAMIDE 100 MG PO SCH ×3 (07:15→21:31)
[2018-07-27] MEDS: FLUOXETINE HCL 20 MG/5 ML GT SCH (07:15)
[2018-07-27] MEDS: VALPROIC ACID SOLN 500 MG/10 ML UDC PO SCH ×3 (07:15→21:30)
[2018-07-27] MEDS: CETIRIZINE HCL 10 MG TABLET PO SCH (07:16)
[2018-07-27] MEDS: ACETYLCYSTEINE 10% INHAL SOLN **DISPENSED FROM RESP. INH SCH ×2 (08:08→20:29)
[2018-07-27] MEDS: ALBUTEROL 0.083% NEBU SOLN 3 ML VIAL NEB SCH ×2 (08:08→20:29)
[2018-07-27] MEDS: BUDESONIDE 0.5 MG/2 ML VIAL (PULMICORT) INH SCH ×2 (08:08→20:29)
[2018-07-27] MEDS: DORNASE ALFA 2.5 ML AMP INH SCH ×2 (08:09→20:29)
[2018-07-27] MEDS ORDERED: MINERAL OIL 30 ML UDC PO ONE (08:12)
--- NOTE | 2018-07-27 09:12 | XRay Report ---
XR chest 1V portable CLINICAL HISTORY: 22 years-old Female presenting with Hypoxemic respiratory failure. TECHNIQUE: Portable upright AP view of the chest was obtained. COMPARISON: 07/26/2018. FINDINGS: Tracheostomy tube remains in place. Several external leads overlie the thorax degrading evaluation. T here is also a medical anthropologist overlying the left lower chest degrading evaluation of this region. Cardiomediastinal silhouette normal. Patient is slightly [place] rotated. Significantly improved aeration of the left lung base. Minimal bandlike opacities at the lung bases. Slightly increased density of t he left lung in comparison to the right is likely due to rotation. No large effusion or pneumothorax. Osseous structures normal. Mild gaseous distention of the stomach. IMPRESSION: 1. Significantly improved aeration of the left lung base. Minimal bibasilar atelectasis or scarring remains. Electronically signed by: Ray Rachel M.D. 07/27/2018 9:10 AM
--- NOTE | 2018-07-27 09:55 | Infectious Disease Progress Nt ---
Date of Service July 27, 2018 Assessment & Plan (1) Pneumonia: would suggest 14 days of IV Imipenem as all pseudomonas isolates are sensitive to this. continue supportive care, suctioning. suspect bpm developer in blood cultures represents skin contaminant. repeat cultures negative, would not treat. Subjective pt tolerating imipenem, multiple bronch cultures growing pseudomonas. 1 blood culture grew bpm developer, all repeat cultures negative. afebrile overnight. wbc 7, procalcitonin 0.1 Results & Data Vital Signs (Past 12 Hours) Vital Signs Temp Pulse Pulse Resp BP BP Pulse Ox 07/27/18 08:10 27 H 99 07/27/18 08:09 27 H 07/27/18 07:00 36.8 C 110 H 125/76 99 07/27/18 06:00 97 H 22 114/73 97 07/27/18 05:00 36.7 C 90 22 117/81 98 07/27/18 04:50 88 22 98 07/27/18 04:00 71 23 111/76 97 07/27/18 03:00 92 H 24 101/67 99 07/27/18 02:00 83 22 96/60 L 97 07/27/18 01:00 96 H 25 H 95/58 L 97 07/27/18 00:36 97 H 25 H 98 07/27/18 00:00 36.7 C 101 H 114 H 24 108/64 98 07/26/18 23:00 114 H 25 H 131/71 99 07/26/18 22:00 103 H 24 104/62 100 Laboratory Results Microbiology 07/21/18 19:11 Blood Aerobic Blood Culture - Final No growth in Aerobic bottle after 5 days. 07/21/18 19:11 Blood Anaerobic Blood Culture - Final 07/21/18 19:22 Blood Aerobic Blood Culture - Final No growth in Aerobic bottle after 5 days. 07/21/18 19:22 Blood Anaerobic Blood Culture - Final 07/20/18 10:22 Blood Aerobic Blood Culture - Final Coag neg staph not lugdunensis 07/20/18 10:22 Blood Anaerobic Blood Culture - Final No growth in Anaerobic bottle after 5 days. 07/24/18 10:40 Bronch Wash,Left Lower Lobe Acid Fast Bacilli Smear - Final 07/24/18 10:40 Bronch [place], Left Lower Lobe Gram Stain - Final 07/24/18 10:40 Bronch [place], Left Lower Lobe Bronchoalveolar Lavage Culture - Final Pseudomonas aeruginosa 07/24/18 10:40 Bronch Wash,Left Lower Lobe Fungal Smear - Final 07/24/18 10:40 Bronch Wash,Left Lower Lobe Fungal Culture - Preliminary No yeast or fungus isolated - Report 1, Additional Report to Follow. 07/20/18 10:15 Blood Aerobic Blood Culture - Final No growth in Aerobic bottle after 5 days. 07/20/18 10:15 Blood Anaerobic Blood Culture - Final 07/22/18 21:50 Bronch [place], Left Lower Lobe Gram Stain - Final 07/22/18 21:50 Bronch [place], Left Lower Lobe Bronchoalveolar Lavage Culture - Final Pseudomonas aeruginosa 07/20/18 10:20 Sputum,Trach Gram Stain - Final 07/20/18 10:20 Sputum,Trach Sputum Culture - Final Pseudomonas aeruginosa (1) Pneumonia Laterality: left Lung location: lower lobe of lung Pneumonia type: due to unspecified organism Qualified Code(s): J18.1 - Lobar pneumonia, unspecified organism
--- NOTE | 2018-07-27 11:05 | Critical Care Progress Note ---
Date of Service July 27, 2018 Assessment & Plan (1) Admitted to intensive care unit: Reason Critically Ill: 22-year-old female with acute on chronic respiratory failure with hypoxemia secondary to acute mucous plugging of the LEFT main bronchus. NEURO - * Unable to assess secondary to baseline mental status. * History of CP. At baseline * Continue home medications as prescribed. CARDIAC/VASCULAR - * No history of cardiovascular disease. * Monitor on telemetry. RESPIRATORY - * Acute on chronic hypoxic respiratory failure: currently saturating 96%on 40% FiO2 with RR 22 * Secondary to significant LEFT mainstem mucous plugging. * Placed on MV post bron. * Chest x-ray reveals worsening lower lobe infiltrate versus small pleural effusion * We will continue with MV and titrate O2 down. * Continue with antibiotic imipenem GI/NUTRITION - * Continue with tube feeds * Hypoalbuminemia * Continue with additional protein supplementation RENAL/LYTES - * Monitor lytes - * D/C [place] ENDO - * No history of diabetes or thyroid disease * BSGs per unit protocol. ISS --> gtt per unit policy. HEME - * Stable H&H. ID - * LEFT lower lobe pneumonia * Continue imepenem, and narendra nebs, can stop anti-fungal coverage. * Procalcitonin improving LINES/IV ACCESS - * PIVs x2 DVT PROPHYLAXIS: * SCDs * Patient at baseline functional status. Chemical prophylaxis not indicated Patient requiring repeat bronchoscopy for mucoid impaction and frequent airway plugging secondary to Pseudomonas pneumonia Was discussed in multidisciplinary rounds, I updated the patient's mother. I have personally spent 35 minutes of critical care time in the direct management of this patient. This is a life/limb threatening event. This includes time spent evaluating patient, direct bedside care, chart review, placing orders, interpretation of diagnostic studies, discussion with consultants, patient, and/or family members regarding treatment decisions, as well as other required patient management activities. This time is exclusive of all separately billable procedures, and teaching time and separate from and in addition to any other critical care service time. (2) Acute respiratory failure with hypoxemia: (3) Cerebral palsy: management per primary team (4) Fever: (5) Pneumonia: Subjective Selvin Womer resting in bed this morning, appears more agitated today, crying. Unable to communicate as per baseline. Mother not at bedside. Sister who was in ED yesterday was able to be managed outpatient. Review of Systems Review of Systems: Unobtainable due to cognitive status and Unobtainable due to endotracheal tube Physical Exam Constitutional: + ill appearing, + cachectic, + altered mental status, + behavioral limitations and + physical limitations Eyes: PERRL, conjunctivae normal, anicteric sclerae Respiratory: + respiratory distress, + labored breathing and + retractions Auscultation: + crackles, + rales and + rhonchi Cardiovascular: Rate/Rhythm: regular rhythm and + tachycardic Heart Sounds: no click, no gallop, no murmur and no cardiac rub Extremities: no edema Gastrointestinal (Abdomen): Percussion/Palpation: abdomen soft; abdomen nontender Skin: no rashes, warm and dry Neurologic: PERRL, EOMI, accommodation nl, no face palsy, no dysarthria moves all extremities Motor/Sensory: no tremor Results & Data Vital Signs (Past 12 Hours) Vital Signs Temp Pulse Pulse Pulse Resp BP Pulse Ox 07/27/18 05:00 36.7 C 90 22 117/81 98 07/27/18 04:50 88 22 98 07/27/18 04:00 71 23 111/76 97 07/27/18 03:00 92 H 24 101/67 99 07/27/18 02:00 83 22 96/60 L 97 07/27/18 01:00 96 H 25 H 95/58 L 97 07/27/18 00:36 97 H 25 H 98 07/27/18 00:00 36.7 C 101 H 114 H 24 108/64 98 07/26/18 23:00 114 H 25 H 131/71 99 07/26/18 22:00 103 H 24 104/62 100 07/26/18 21:00 125 H 22 108/57 L 97 07/26/18 20:17 113 H 22 100 07/26/18 20:03 100 H 22 100 07/26/18 20:00 36.9 C 102 H 110 H 22 118/66 100 07/26/18 19:00 97 H 28 H 109/63 100 Resident Activity Tracking Resident Involvement: Resident Care Provided Care Provided: Adult [facility] (1) Fever Fever type: unspecified Qualified Code(s): R50.9 - Fever, unspecified (2) Cerebral palsy Cerebral palsy type: unspecified type Qualified Code(s): G80.9 - Cerebral palsy, unspecified (3) Pneumonia Laterality: left Lung location: lower lobe of lung Pneumonia type: due to unspecified organism Qualified Code(s): J18.1 - Lobar pneumonia, unspecified organism
[2018-07-27] MEDS ORDERED: MIDAZOLAM HCL 1 MG/ML 2ML VIAL ONE (11:37)
[2018-07-27] MEDS ORDERED: fentaNYL citrate 100 MCG/2 ML VIAL ONE (11:38)
--- NOTE | 2018-07-27 19:53 | Hospitalist Progress Note ---
Date of Service July 27, 2018 Assessment & Plan (1) Acute respiratory failure with hypoxia and hypercapnia: 2nd to extensive LLL pneumonia and collapse. s/p multiple bronchs with removal of left-sided mucous plugs. bronch today showed bronchial tree on left much improved. Defer vent management, etc to critical care. Supportive care / antibiotics for pneumonia. (2) Bronchopneumonia due to Pseudomonas species: LLL. IMPROVED. Day #8/14 IV abx. Remains on imipenem. All cultures to date with pseudomonas. Has had such in the past suggesting colonization from this pathogen. ID consult completed - 14-day course of imipenem recommended. Cont supportive care. (3) Cerebral palsy: nonambulatory, nonverbal at baseline. trach/PEG. seizure disorder. continue all home chronic meds. tube feedings via PEG. (4) Thrombocytopenia: likely due to infection. slowly improving daily. prior b12, folate wnl. TSH mildly elevated but FreeT4 wnl. continue to follow. if related to infection the count should normalize with time. (5) Anemia: Prior b12, folate levels normal. iron studies normal. TSH minimally elevated; doubt it is playing any role. likely anemia chronic disease. (6) Pleural effusion, left: parapneumonic. no signs clinically of empyema. follow. this is small. (7) Seizure disorder: cont home meds. no issues. (8) Status post insertion of percutaneous endoscopic gastrostomy (PEG) tube: no issues cont home feeding regimen (9) DVT prophylaxis: consider heparin or lovenox will cont to follow Subjective s/p bronch today. per Dr Tariq left bronchial tree MUCH better with modest secretions only. vent settings have been weaned considerably. tolerating PEG tube feedings. no issues per nursing. much more awake than previous. Review of Systems Review of Systems: Unobtainable due to cognitive status (nonverbal) Physical Exam Constitutional: + ill appearing and + thin; no acute distress and no altered mental status ENMT: external ear and nose normal, oropharynx normal trach clean/dry, attached to vent circuit Respiratory: Auscultation: + diminished lung sounds (left ); no wheezes Cardiovascular: Rate/Rhythm: regular rhythm and + tachycardic Heart Sounds: normal S1 and normal S2; no murmur Vessels: posterior tibial pulses present and dorsalis pedis pulses present; no JVD Extremities: no edema Gastrointestinal (Abdomen): normal bowel sounds, soft, nontender, no hepatosplenomegaly PEG clean Psychiatric: Orientation: + not alert and + not oriented x 3 Results & Data Vital Signs (Past 12 Hours) Vital Signs Pulse Pulse Resp BP BP Pulse Ox 07/27/18 18:00 95 H 99/55 L 99 07/27/18 17:45 105 H 110/62 95 07/27/18 17:30 94 H 100/68 98 07/27/18 17:24 69 22 97 07/27/18 17:15 103 H 98/54 L 83 L 07/27/18 17:00 98 H 100/61 07/27/18 16:45 93 H 102/65 97 07/27/18 16:30 91 H 93/68 L 97 07/27/18 16:15 80 89/54 L 97 07/27/18 16:01 86 97 07/27/18 16:00 88 96 07/27/18 15:45 90 90/57 L 97 07/27/18 15:30 87 87/51 L 95 07/27/18 15:15 91 H 90/56 L 96 07/27/18 15:01 90 91 07/27/18 15:00 90 86/56 L 95 07/27/18 14:45 91 H 94/59 L 96 07/27/18 14:30 92 H 92/59 L 98 07/27/18 14:25 93 H 91/56 L 97 07/27/18 14:18 22 07/27/18 14:15 96 H 91/56 L 97 07/27/18 14:06 88 25 H 99 07/27/18 14:00 93 H 97/53 L 99 07/27/18 13:45 89 85/51 L 99 07/27/18 13:30 93 H 92/47 L 98 07/27/18 13:15 94 H 88/43 L 98 07/27/18 13:00 93 H 88/51 L 98 07/27/18 12:45 93 H 92/53 L 98 07/27/18 12:30 91 H 89/53 L 97 07/27/18 12:15 108 H 103/60 97 07/27/18 12:10 102 H 104/47 L 98 07/27/18 12:06 104 H 23 99 07/27/18 12:05 107 H 107/61 95 07/27/18 12:00 99 H 23 84/44 L 84/44 L 90 07/27/18 11:55 94 H 81/42 L 100 07/27/18 11:50 99 H 100/54 L 100 07/27/18 11:49 111 H 25 H 100/54 L 100 07/27/18 11:45 92 H 14 89/48 L 84/67 L 100 07/27/18 11:43 108 H 84/57 L 96 07/27/18 11:40 99 H 14 100/53 L 99 07/27/18 11:00 106 H 100/64 94 07/27/18 10:00 104 H 96/56 L 95 07/27/18 09:12 116 H 106/69 94 07/27/18 09:00 97 07/27/18 08:10 27 H 99 07/27/18 08:09 27 H 07/27/18 08:01 130 H 131/70 90 07/27/18 08:00 118 H 95 Laboratory Results Laboratory Results - last 24 hr 07/27/18 07/27/18 07/27/18 04:35 04:35 04:35 WBC 7.08 RBC 3.08 L Hgb 10.4 L Hct 30.9 L MCV 100.3 H MCH 33.8 MCHC 33.7 RDW Std Deviation 43.7 RDW Coeff of [place] 12.2 Plt Count 112 L MPV 8.7 Immature Gran % (Auto) 0.3 Neut % (Auto) 67.8 Lymph % (Auto) 22.5 [place] % (Auto) 8.8 Eos % (Auto) 0.6 Baso % (Auto) 0.0 Immature Gran # (Auto) 0.02 Neut # (Auto) 4.81 Lymph # (Auto) 1.59 [place] # (Auto) 0.62 H Eos # (Auto) 0.04 Baso # (Auto) 0.00 Sodium 139 Potassium 3.6 Chloride 105 Carbon Dioxide 30 Anion Gap 4.0 BUN 9 Creatinine 0.30 L Est Cr Clr Drug Dosing 223.8 Est GFR ( Amer) > 150.0 Est GFR (Non-Af Amer) > 150.0 BUN/Creatinine Ratio 30.2 H Glucose 85 Calcium 9.2 Phosphorus 4.8 D Magnesium 2.0 Iron 62 Transferrin 240 Transferrin % Sat 18 Ferritin 81.3 Procalcitonin 0.17 (1) Anemia Anemia type: unspecified type Qualified Code(s): D64.9 - Anemia, unspecified (2) Cerebral palsy Cerebral palsy type: unspecified type Qualified Code(s): G80.9 - Cerebral palsy, unspecified
[2018-07-27] MEDS: TRAZODONE HCL 50 MG TAB GT SCH (21:31)
[2018-07-28 05:16] LABS: Basophils # (auto) 0.01 K/uL (0-0.2); Basophils % (auto) 0.2 %; Eosinophils # (auto) 0.06 K/uL (0-0.5); Eosinophils % (auto) 1.1 %; Hematocrit (blood only) 32.6 % (37-47); Hemoglobin 11.4 g/dL (12.0-16.0); Immature Granulocytes # (auto) 0.01 K/uL (0.00-0.02); Immature Granulocytes % (auto) 0.2 %; Lymphocytes % (auto) 29.9 %; Mean Corpuscular Volume 100.9 fL (80-100); Monocytes # (auto) 0.48 K/uL (0.11-0.59); Neutrophils % (auto) 59.6 %; Platelet Count 118 K/uL (130-400); RDW Coefficient of Variation 12.1 % (11.5-14.5); RDW Standard Deviation 44.4 fL (36.4-46.3); Red Blood Count 3.23 M/uL (4.2-5.4); White Blood Count 5.36 K/uL (4.8-10.8)
[2018-07-28 05:36] LABS: BUN Creatinine Ratio 31.6 (10-20); Blood Urea Nitrogen 11 mg/dl (7-18); Calcium 9.4 mg/dl (8.5-10.1); Carbon Dioxide 32 mmol/L (21-32); Chloride 103 mmol/L (98-107); Creatinine Clr Calc Pharmacy 198.3 ml/min; Est GFR (African American) > 150.0; Est GFR (Non-African American) > 150.0; Glucose 76 mg/dl (70-99); Magnesium 2.1 mg/dl (1.8-2.4); Phosphorus 4.9 mg/dl (2.5-4.9); Sodium 137 mmol/L (136-145)
--- NOTE | 2018-07-28 05:40 | Critical Care Progress Note ---
Date of Service July 28, 2018 Assessment & Plan (1) Acute respiratory failure with hypoxia and hypercapnia: Reason Critically Ill: 22-year-old female with acute on chronic respiratory failure with hypoxemia secondary to acute mucous plugging of the LEFT main bronchus. NEURO - Unable to assess secondary to baseline mental status. History of CP. At baseline Continue home medications as prescribed. CARDIAC/VASCULAR - No history of cardiovascular disease. Monitor on telemetry. RESPIRATORY - Acute on chronic hypoxic respiratory failure: currently saturating well on high flow nasal cannula Secondary to significant LEFT mainstem mucous plugging Copious amounts of mucus removed with therapeutic bronchoscopy each of last two days. Chest x-ray reveals worsening lower lobe infiltrate versus small pleural effusion Continuing to try to wean O2 down, will reassess tomorrow if needing another bronchoscopy Continue with antibiotic imipenem GI/NUTRITION - Continue with tube feeds Hypoalbuminemia Continue with additional protein supplementation RENAL/LYTES - Monitor lytes - Pure wick in place ENDO - No history of diabetes or thyroid disease BSGs per unit protocol. ISS --> gtt per unit policy. HEME - Stable H&H. ID - LEFT lower lobe pneumonia pseudomonas colonization Continue imepenem, and narendra nebs, discontinued antifungal coverage Procalcitonin improving LINES/IV ACCESS - PIVs x2 DVT PROPHYLAXIS: SCDs Patient at baseline functional status. Chemical prophylaxis not indicated Patient's care discussed with patient's mother, may be able to be stepped down from ICU if continuing to improve (2) DVT prophylaxis: (3) Status post insertion of percutaneous endoscopic gastrostomy (PEG) tube: (4) Pseudomonas aeruginosa colonization: Supervising Physician Co-Signing Physician Notes Dr. Jaramillo was resident physician during care of patient. I separately evaluated patient for canales portions of the history and the exam. I was present during the critical portion of medical decision making, and I discussed the case with the resident. I generally agree with the findings and plan. Patient still requiring mechanical ventilation, frequent bronchoscopy for mucoid impaction, pseudomonal pneumonia I have personally spent 35 minutes of critical care time in the direct management of this patient. This is a life/limb threatening event. This includes time spent evaluating patient, direct bedside care, chart review, placing orders, interpretation of diagnostic studies, discussion with consultants, patient, and/or family members regarding treatment decisions, as well as other required patient management activities. This time is exclusive of all separately billable procedures, and teaching time and separate from and in addition to any other critical care service time. Subjective Selvin Alcala appears slighlty more peaceful today, breathing more comfortably. Review of Systems Review of Systems: Unobtainable due to mental health condition and Unobtainable due to cognitive status Physical Exam Constitutional: + ill appearing, + cachectic, + altered mental status, + behavioral limitations and + physical limitations Eyes: PERRL, conjunctivae normal, anicteric sclerae Respiratory: + respiratory distress, + labored breathing and + retractions Auscultation: + rales and + rhonchi Cardiovascular: Rate/Rhythm: regular rhythm and + tachycardic Heart Sounds: no click, no gallop, no murmur and no cardiac rub Extremities: no edema Gastrointestinal (Abdomen): Percussion/Palpation: abdomen soft; abdomen nontender Skin: no rashes, warm and dry Neurologic: PERRL, EOMI, accommodation nl, no face palsy, no dysarthria moves all extremities Motor/Sensory: no tremor Results & Data Vital Signs (Past 12 Hours) Vital Signs Temp Pulse Pulse Resp BP BP Pulse Ox 07/28/18 05:00 83 22 96/60 L 99 07/28/18 04:00 36.6 C 86 22 91/58 L 99 07/28/18 03:00 99 H 25 H 92/58 L 100 07/28/18 02:15 81 22 100 07/28/18 02:00 85 22 87/55 L 99 07/28/18 01:00 81 24 77/58 L 98 07/28/18 00:00 36.7 C 94 H 23 92/57 L 98 07/27/18 23:50 98 H 22 94 07/27/18 23:00 90 23 100/60 98 07/27/18 22:56 97 H 22 81/45 L 96 07/27/18 21:00 108 H 24 98/53 L 97 07/27/18 20:53 113 H 20 100 07/27/18 20:00 37.2 C 100 H 102 H 22 102/69 99 07/27/18 19:00 98 H 22 102/66 99 07/27/18 18:00 95 H 99/55 L 99 07/27/18 17:45 105 H 110/62 95 Resident Activity Tracking Resident Involvement: Resident Care Provided Care Provided: Adult Hospital Medicine
[2018-07-28] MEDS: guaiFENesin SUGAR FREE 100 MG/5 ML UDC PO SCH ×4 (06:14→23:54)
[2018-07-28] MEDS: IMIPENEM/CILASTATIN SODIUM 250 MG in DEXTROSE 5% 100 ML IV SCH ×4 (06:14→23:54)
--- NOTE | 2018-07-28 07:18 | XRay Report ---
XR chest 1V portable HISTORY: 22 years-old Female resp failure acute respiratory failure COMPARISON: Chest radiograph 07/27/2018 TECHNIQUE: Portable AP view of the chest FINDINGS: Study is limited secondary to patient positioning. Telemetry leads are noted coiling over the right h emithorax. Tracheostomy cannula overlies the midline no pneumothorax, large pleural effusion or overt pulmonary edema. Mild persistent left basilar opacities. Bones appear normal. IMPRESSION: 1. Mild persistent left basilar opacities congestive of atelectasis or pneumonitis. 2. No pneumothorax. The above report was generated using voice recognition software. It may contain grammatical, syntax o r spelling errors. Electronically signed by: Finn Townsend M.D. 07/28/2018 7:17 AM
[2018-07-28] MEDS: NITROFURANTOIN 25 MG/5 ML PO SCH (07:35)
[2018-07-28] MEDS: BACLOFEN 20 MG TAB PO SCH ×3 (07:36→19:52)
[2018-07-28] MEDS: PROSOURCE NO CARB 30 ML/PKT PO SCH (07:36)
[2018-07-28] MEDS: FLUOXETINE HCL 20 MG/5 ML GT SCH (07:37)
[2018-07-28] MEDS: VALPROIC ACID SOLN 500 MG/10 ML UDC PO SCH ×3 (07:37→19:52)
[2018-07-28] MEDS: ZONISAMIDE 100 MG PO SCH ×2 (07:38→19:55)
[2018-07-28] MEDS: CETIRIZINE HCL 10 MG TABLET PO SCH (07:38)
[2018-07-28] MEDS: DORNASE ALFA 2.5 ML AMP INH SCH ×4 (07:41→19:35)
[2018-07-28] MEDS: TOBRAMYCIN SULF 40 MG/ML 2 ML VIAL INH SCH ×2 (07:44→19:20)
--- NOTE | 2018-07-28 08:26 | Procedure Note ---
Procedure Note: Bronchoscopy Procedure Procedure date: July 27, 2018 Procedure: fiberoptic bronchoscopy Pre-procedure indication: Mucoid impaction of left lung Post-procedure Diagnosis: same as above Prior to Procedure: Informed Consent: The risks, benefits, indications, potential complications, and alternatives were explained to the patient's mother and informed consent obtained. Attending Staff: Lavon Tariq DO Resident/APC: Clint Skin Prep: Not applicable Anesthesia: 100 mcg fentanyl 2 mg of Versed The identity of the patient was confirmed and a bedside time out was performed. Description of Procedure: Fiberoptic bronchoscopy was performed via endotracheal tube. Bronchioalveolar lavage right lower and left lower lobes were performed. Findings included: Weight thick creamy secretions, decreased quantity and decreased impaction compared to yesterday's bronchoscopy Complications: None Specimens: Bronchial washings sent for culture and Gram stain, cytology, fungal elements, and AFB stain and culture. Estimated blood loss: Zero
[2018-07-28] MEDS: ACETYLCYSTEINE 10% INHAL SOLN **DISPENSED FROM RESP. INH SCH ×2 (11:19→19:16)
[2018-07-28] MEDS: ALBUTEROL 0.083% NEBU SOLN 3 ML VIAL NEB SCH ×2 (11:19→19:16)
[2018-07-28] MEDS: BUDESONIDE 0.5 MG/2 ML VIAL (PULMICORT) INH SCH ×2 (11:19→19:16)
[2018-07-28] MEDS: ACETAMINOPHEN SOL 650 MG/20.3 ML UDC PEG PRN (13:49)
[2018-07-28] MEDS: TRAZODONE HCL 50 MG TAB GT SCH (19:52)
--- NOTE | 2018-07-28 20:04 | Hospitalist Progress Note ---
Date of Service July 28, 2018 Assessment & Plan (1) Acute respiratory failure with hypoxia and hypercapnia: 2nd to extensive LLL pneumonia and collapse. RESOLVED. O2 nearly weaned off; on trach collar. s/p multiple bronchs with removal of left-sided mucous plugs. Supportive care / antibiotics for pneumonia. (2) Bronchopneumonia due to Pseudomonas species: LLL. IMPROVED/resolving. Day #9/14 IV abx. Remains on imipenem. All cultures to date with pseudomonas. Has had such in the past suggesting colonization from this pathogen. ID consult completed - 14-day course of imipenem recommended. Cont supportive care. (3) Cerebral palsy: nonambulatory, nonverbal at baseline. trach/PEG. seizure disorder. continue all home chronic meds. tube feedings via PEG. (4) Thrombocytopenia: likely due to infection. slowly improving daily. prior b12, folate wnl. TSH mildly elevated but FreeT4 wnl. continue to follow. (5) Anemia: Prior b12, folate levels normal. iron studies normal. TSH minimally elevated; doubt it is playing any role. likely anemia chronic disease. (6) Pleural effusion, left: parapneumonic. no signs clinically of empyema. follow. this is small and should not require intervention. (7) Seizure disorder: cont home meds. no issues. (8) Status post insertion of percutaneous endoscopic gastrostomy (PEG) tube: no issues cont home feeding regimen (9) DVT prophylaxis: SCDs will cont to follow home soon?? Subjective overall good day today for Selvin per staff. weaned to trach collar; off vent. minimal secretions w/ suctioning per staff. awake, alert - seems to be at baseline. occasional desaturation - improves with repositioning. Review of Systems Review of Systems: Unobtainable due to cognitive status Physical Exam Constitutional: + ill appearing and + thin; no acute distress and no altered mental status ENMT: cleft palate; MMM; no thrush; trach in place anterior neck Respiratory: Auscultation: + diminished lung sounds (left ); no wheezes Cardiovascular: Rate/Rhythm: regular rate and regular rhythm Heart Sounds: normal S1 and normal S2; no murmur Vessels: posterior tibial pulses present and dorsalis pedis pulses present; no JVD Extremities: no edema Gastrointestinal (Abdomen): normal bowel sounds, soft, nontender, no hepatosplenomegaly PEG tube in place Psychiatric: Orientation: + not alert and + not oriented x 3 Results & Data Vital Signs (Past 12 Hours) Vital Signs Temp Pulse Pulse Resp BP Pulse Ox 07/28/18 19:38 110 H 26 H 91 07/28/18 19:19 107 H 24 86 L 07/28/18 19:00 95 H 23 107/75 91 07/28/18 18:01 91 H 94 07/28/18 18:00 102 H 101/65 92 07/28/18 17:01 101 H 91 07/28/18 17:00 98 H 104/58 L 92 07/28/18 16:08 108 H 20 93 07/28/18 16:01 37.1 C 105 H 92 07/28/18 16:00 103 H 107/55 L 93 07/28/18 15:01 106 H 92 07/28/18 15:00 104 H 91/54 L 92 07/28/18 14:00 109 H 101/53 L 92 07/28/18 13:50 116 H 18 93 07/28/18 13:01 114 H 95 07/28/18 13:00 108 H 106/58 L 95 07/28/18 12:01 111 H 95 07/28/18 12:00 112 H 89/63 L 94 07/28/18 11:32 104 H 18 93 07/28/18 11:19 104 H 18 91 07/28/18 11:00 106 H 89/49 L 95 07/28/18 10:00 98 H 91 07/28/18 09:00 100 H 95/57 L 88 L 07/28/18 08:46 22 07/28/18 08:45 22 98 07/28/18 08:00 36.3 C L 104 H 114/56 L 100 Laboratory Results Laboratory Results - last 24 hr 07/28/18 07/28/18 04:53 04:53 WBC 5.36 RBC 3.23 L Hgb 11.4 L Hct 32.6 L MCV 100.9 H MCH 35.3 H MCHC 35.0 RDW Std Deviation 44.4 RDW Coeff of [place] 12.1 Plt Count 118 L MPV 9.0 Immature Gran % (Auto) 0.2 Neut % (Auto) 59.6 Lymph % (Auto) 29.9 [place] % (Auto) 9.0 Eos % (Auto) 1.1 Baso % (Auto) 0.2 Immature Gran # (Auto) 0.01 Neut # (Auto) 3.20 Lymph # (Auto) 1.60 [place] # (Auto) 0.48 Eos # (Auto) 0.06 Baso # (Auto) 0.01 Sodium 137 Potassium 4.0 Chloride 103 Carbon Dioxide 32 Anion Gap 2.0 L BUN 11 Creatinine 0.34 L Est Cr Clr Drug Dosing 198.3 Est GFR ( Amer) > 150.0 Est GFR (Non-Af Amer) > 150.0 BUN/Creatinine Ratio 31.6 H Glucose 76 Calcium 9.4 Phosphorus 4.9 Magnesium 2.1 (1) Anemia Anemia type: unspecified type Qualified Code(s): D64.9 - Anemia, unspecified (2) Cerebral palsy Cerebral palsy type: unspecified type Qualified Code(s): G80.9 - Cerebral palsy, unspecified
[2018-07-29 05:21] LABS: Hematocrit (blood only) 34.2 % (37-47); Hemoglobin 11.8 g/dL (12.0-16.0); Mean Corpuscular Hgb Conc 34.5 g/dL (32-36); Mean Corpuscular Volume 99.7 fL (80-100); Mean Platelet Volume 8.6 fL (7.4-10.4); Platelet Count 191 K/uL (130-400); RDW Coefficient of Variation 12.1 % (11.5-14.5); Red Blood Count 3.43 M/uL (4.2-5.4); White Blood Count 9.79 K/uL (4.8-10.8)
[2018-07-29 05:39] LABS: Basophils # (auto) 0.01 K/uL (0-0.2); Basophils % (auto) 0.1 %; Eosinophils # (auto) 0.07 K/uL (0-0.5); Eosinophils % (auto) 0.7 %; Immature Granulocytes # (auto) 0.03 K/uL (0.00-0.02); Immature Granulocytes % (auto) 0.3 %; Lymphocytes # (auto) 1.02 K/uL (1.2-3.4); Lymphocytes % (auto) 10.4 %; Monocytes # (auto) 0.74 K/uL (0.11-0.59); Monocytes % (auto) 7.6 %; Neutrophils # (auto) 7.92 K/uL (1.4-6.5); Neutrophils % (auto) 80.9 %
--- NOTE | 2018-07-29 05:48 | Critical Care Progress Note ---
Date of Service July 29, 2018 Assessment & Plan (1) Admitted to intensive care unit: Reason Critically Ill: 22-year-old female with acute on chronic respiratory failure with hypoxemia secondary to acute mucous plugging of the LEFT main bronchus. NEURO - * Unable to assess secondary to baseline mental status. * History of CP. At baseline * Continue home medications as prescribed. CARDIAC/VASCULAR - * No history of cardiovascular disease. * Monitor on telemetry. RESPIRATORY - * Acute on chronic hypoxic respiratory failure: currently saturating 96%on 40% FiO2 with RR 22 * Secondary to significant LEFT mainstem mucous plugging. * Placed on MV post bron. * Increased oxygen requirement (mild), thickening mcmullen secretions we will proceed with bronchoscopy today * Still tolerating off mechanical ventilator * Continue with antibiotic imipenem GI/NUTRITION - * Continue with tube feeds * Hypoalbuminemia * Continue with additional protein supplementation RENAL/LYTES - * Monitor lytes - * D/C [facility] ENDO - * No history of diabetes or thyroid disease * BSGs per unit protocol. ISS --> gtt per unit policy. HEME - * Stable H&H. ID - * LEFT lower lobe pneumonia * Continue imepenem day 5 of 14 LINES/IV ACCESS - * PIVs x2 DVT PROPHYLAXIS: * SCDs * Patient at baseline functional status. Chemical prophylaxis not indicated Was discussed in multidisciplinary rounds, I updated the patient's mother. (2) Acute respiratory failure with hypoxemia: (3) Cerebral palsy: management per primary team (4) Fever: (5) Pneumonia: Supervising Physician Co-Signing Physician Notes Dr. Jaramillo was resident physician during care of patient. I separately evaluated patient for canales portions of the history and the exam. I was present during the critical portion of medical decision making, and I discussed the case with the resident. I generally agree with the findings and plan. Patient still requiring mechanical ventilation, frequent bronchoscopy for mucoid impaction, pseudomonal pneumonia I have personally spent 35 minutes of critical care time in the direct management of this patient. This is a life/limb threatening event. This includes time spent evaluating patient, direct bedside care, chart review, placing orders, interpretation of diagnostic studies, discussion with co nsultants, patient, and/or family members regarding treatment decisions, as well as other required patient management activities. This time is exclusive of all separately billable procedures, and teaching time and separate from and in addition to any other critical care service time. Subjective Selvin Cappsmer is resting comfortably this morning, awake and noncommunicative per her baseline not as distressed as she has been. Her nurse tells me she has been off the vent all night and has done well. Producing copious thick secretions. Review of Systems Review of Systems: Unobtainable due to cognitive status Constitutional: no fever and no chills Physical Exam Constitutional: + ill appearing, + cachectic, + altered mental status, + behavioral limitations and + physical limitations Eyes: PERRL, conjunctivae normal, anicteric sclerae Respiratory: no respiratory distress Auscultation: + rales and + rhonchi Cardiovascular: Rate/Rhythm: regular rhythm and + tachycardic Heart Sounds: no click, no gallop, no murmur and no cardiac rub Extremities: no edema Gastrointestinal (Abdomen): Percussion/Palpation: abdomen soft; abdomen nontender Skin: no rashes, warm and dry Neurologic: PERRL, EOMI, accommodation nl, no face palsy, no dysarthria moves all extremities Motor/Sensory: no tremor Results & Data Vital Signs (Past 12 Hours) Vital Signs Temp Pulse Pulse Resp BP BP Pulse Ox 07/29/18 04:15 37.9 C H 103 H 28 H 106/65 88 L 07/29/18 03:00 102 H 44 H 101/67 93 07/29/18 02:00 36.4 C L 105 H 103/65 93 07/29/18 00:00 37 C 97 H 88 24 86/54 L 92 07/28/18 22:00 106 H 32 H 96/55 L 89 L 07/28/18 21:00 104 H 36 H 90/55 L 90 07/28/18 20:00 37.1 C 110 H 26 H 112/99 90 07/28/18 19:38 110 H 26 H 91 07/28/18 19:19 107 H 24 86 L 07/28/18 19:00 95 H 23 107/75 91 07/28/18 18:01 91 H 94 07/28/18 18:00 102 H 101/65 92 Critical Care Time Critical Care Time: Yes Total Critical Care Time: 35 Resident Activity Tracking Resident Involvement: Resident Care Provided Care Provided: Adult Hospital Medicine (1) Fever Fever type: unspecified Qualified Code(s): R50.9 - Fever, unspecified (2) Cerebral palsy Cerebral palsy type: unspecified type Qualified Code(s): G80.9 - Cerebral palsy, unspecified (3) Pneumonia Laterality: left Lung location: lower lobe of lung Pneumonia type: due to unspecified organism Qualified Code(s): J18.1 - Lobar pneumonia, unspecified organism
[2018-07-29 05:49] LABS: BUN Creatinine Ratio 31.6 (10-20); Blood Urea Nitrogen 13 mg/dl (7-18); Calcium 9.4 mg/dl (8.5-10.1); Carbon Dioxide 27 mmol/L (21-32); Chloride 102 mmol/L (98-107); Creatinine Clr Calc Pharmacy 167.9 ml/min; Est GFR (African American) > 150.0; Est GFR (Non-African American) 148.9; Glucose 81 mg/dl (70-99); Potassium 4.3 mmol/L (3.5-5.1); Sodium 135 mmol/L (136-145)
[2018-07-29] MEDS: IMIPENEM/CILASTATIN SODIUM 250 MG in DEXTROSE 5% 100 ML IV SCH ×3 (06:20→17:30)
[2018-07-29] MEDS: ACETAMINOPHEN SOL 650 MG/20.3 ML UDC PEG PRN (06:21)
[2018-07-29] MEDS: guaiFENesin SUGAR FREE 100 MG/5 ML UDC PO SCH ×3 (06:21→15:45)
[2018-07-29] MEDS: ACETYLCYSTEINE 10% INHAL SOLN **DISPENSED FROM RESP. INH SCH ×2 (07:06→19:52)
[2018-07-29] MEDS: ALBUTEROL 0.083% NEBU SOLN 3 ML VIAL NEB SCH ×2 (07:06→19:52)
[2018-07-29] MEDS: BUDESONIDE 0.5 MG/2 ML VIAL (PULMICORT) INH SCH ×2 (07:06→19:52)
[2018-07-29] MEDS: DORNASE ALFA 2.5 ML AMP INH SCH ×3 (07:06→20:18)
[2018-07-29] MEDS: NITROFURANTOIN 25 MG/5 ML PO SCH (07:32)
[2018-07-29] MEDS: PROSOURCE NO CARB 30 ML/PKT PO SCH (07:33)
[2018-07-29] MEDS: BACLOFEN 20 MG TAB PO SCH ×3 (07:33→20:18)
[2018-07-29] MEDS: FLUOXETINE HCL 20 MG/5 ML GT SCH (07:34)
[2018-07-29] MEDS: ZONISAMIDE 100 MG PO SCH ×2 (07:35→20:19)
[2018-07-29] MEDS: VALPROIC ACID SOLN 500 MG/10 ML UDC PO SCH ×3 (07:35→20:18)
[2018-07-29] MEDS: CETIRIZINE HCL 10 MG TABLET PO SCH (07:36)
[2018-07-29] MEDS ORDERED: MIDAZOLAM HCL 1 MG/ML 2ML VIAL ONE (17:16)
[2018-07-29] MEDS ORDERED: fentaNYL citrate 100 MCG/2 ML VIAL ONE (17:16)
--- NOTE | 2018-07-29 17:32 | Procedure Note ---
Procedure Note: Bronchoscopy Procedure Procedure date: July 29, 2018 Procedure: fiberoptic bronchoscopy Pre-procedure indication: Recurrent mucoid impaction Post-procedure Diagnosis: same as above Prior to Procedure: Informed Consent: The risks, benefits, indications, potential complications, and alternatives were explained to the patient's mother and informed consent obtained. Attending Staff: Lavon Tariq DO Resident/APC: Clint Skin Prep: Not applicable Anesthesia: 100 mcg fentanyl, 2 mg Versed The identity of the patient was confirmed and a bedside time out was performed. Description of Procedure: Fiberoptic bronchoscopy was performed via endotracheal tube. Bronchioalveolar lavage of the right lower lobe as well as left lower lobe was performed. Findings included: White thin secretions of the right lower lobe, white thin secretions easily suctionable removed from the left lower lobe Complications: None Specimens: Not applicable Estimated blood loss: Zero
[2018-07-29] MEDS: TRAZODONE HCL 50 MG TAB GT SCH (20:18)
--- NOTE | 2018-07-29 21:33 | Hospitalist Progress Note ---
Date of Service July 29, 2018 Assessment & Plan (1) Acute respiratory failure with hypoxia and hypercapnia: 2nd to extensive LLL pneumonia and collapse. RESOLVED. s/p multiple bronchs with removal of left-sided mucous plugs earlier this stay. last 2 bronchs have been relatively normal. Supportive care / antibiotics for pneumonia. defer management to critical care team. (2) Bronchopneumonia due to Pseudomonas species: LLL. IMPROVED/resolving. Day #10/14 IV abx. Remains on imipenem. All cultures to date with pseudomonas. Has had such in the past suggesting colonization from this pathogen. ID consult completed - 14-day course of imipenem recommended. (3) Cerebral palsy: nonambulatory, nonverbal at baseline. trach/PEG. seizure disorder. continue all home chronic meds. tube feedings via PEG. (4) Thrombocytopenia: nearly resolved. was likely due to systemic illness. prior b12, folate wnl. TSH mildly elevated but FreeT4 wnl. continue to follow. (5) Anemia: Prior b12, folate levels normal. iron studies normal. TSH minimally elevated; doubt it is playing any role. likely anemia chronic disease. (6) Pleural effusion, left: parapneumonic. no signs clinically of empyema. follow. this is small and should not require intervention. (7) Seizure disorder: cont home meds. no issues. (8) Status post insertion of percutaneous endoscopic gastrostomy (PEG) tube: no issues cont home feeding regimen (9) DVT prophylaxis: SCDs will cont to follow suspect we are close to discharge home Subjective s/p bronch today. thin secretions seen; no mucous plugs in any location. patient on vapotherm high-flow o2 via her trach during my visit. no issues per staff. above steps were taken due to increasing o2 requirements last night. Review of Systems Review of Systems: Unobtainable due to cognitive status Physical Exam Constitutional: + thin and + altered mental status; no acute distress nonverbal; dysmorphic ENMT: Mouth: + oropharynx abnormality (cleft palate) Respiratory: Auscultation: + diminished lung sounds (left ); no crackles and no wheezes Cardiovascular: Rate/Rhythm: regular rate and regular rhythm Heart Sounds: normal S1 and normal S2; no murmur Vessels: posterior tibial pulses present and dorsalis pedis pulses present; no JVD Extremities: no edema Gastrointestinal (Abdomen): normal bowel sounds, soft, nontender, no hepatosplenomegaly PEG tube in place Neurologic: contractures Psychiatric: Orientation: + not alert and + not oriented x 3 Results & Data Vital Signs (Past 12 Hours) Vital Signs Temp Pulse Pulse Resp BP Pulse Ox 07/29/18 20:25 102 H 30 H 114/65 98 07/29/18 20:21 103 H 30 H 105/48 L 99 07/29/18 20:15 96 H 14 98/67 L 100 07/29/18 20:11 90 22 99/67 L 100 07/29/18 20:06 94 H 28 H 83/56 L 100 07/29/18 20:00 90 18 107/63 100 07/29/18 19:56 94 H 22 100 07/29/18 19:55 94 H 29 H 104/63 100 07/29/18 19:50 89 26 H 102/58 L 99 07/29/18 19:45 94 H 27 H 98/63 L 98 07/29/18 19:40 93 H 28 H 90/61 L 99 07/29/18 19:35 92 H 28 H 100/68 99 07/29/18 19:30 93 H 27 H 102/58 L 99 07/29/18 19:25 91 H 18 97/58 L 99 07/29/18 19:20 93 H 28 H 93/59 L 98 07/29/18 19:15 91 H 27 H 80/69 L 98 07/29/18 19:10 93 H 13 100/42 L 98 07/29/18 19:06 92 H 17 91/43 L 98 07/29/18 19:00 98 H 21 109/60 99 07/29/18 18:55 90 18 101/59 L 98 07/29/18 18:50 88 26 H 97/79 L 98 07/29/18 18:45 98 H 31 H 100/63 98 07/29/18 18:40 90 26 H 101/62 98 07/29/18 18:35 94 H 21 101/67 96 07/29/18 18:30 95 H 26 H 100/63 98 07/29/18 18:25 90 30 H 93/58 L 94 07/29/18 18:20 90 28 H 92/60 L 94 07/29/18 18:15 93 H 29 H 95/57 L 94 07/29/18 18:10 92 H 29 H 95/59 L 94 07/29/18 18:05 93 H 28 H 97/58 L 94 07/29/18 18:00 95 H 28 H 97/64 L 94 07/29/18 17:55 95 H 26 H 98/61 L 94 07/29/18 17:50 96 H 27 H 98/58 L 94 07/29/18 17:45 96 H 24 96/58 L 94 07/29/18 17:40 98 H 23 95/59 L 94 07/29/18 17:35 99 H 22 94/60 L 94 07/29/18 17:30 98 H 23 98/59 L 97 07/29/18 17:26 135 H 18 84/62 L 86 L 07/29/18 17:21 111 H 29 H 107/63 99 07/29/18 17:01 105 H 94/50 L 97 07/29/18 17:00 109 H 21 97 07/29/18 16:00 37.1 C 97 H 32 H 100/64 98 07/29/18 15:22 106 H 24 95 07/29/18 15:01 112 H 33 H 98/56 L 90 07/29/18 15:00 108 H 34 H 91 07/29/18 12:25 118 H 26 H 95 07/29/18 11:55 113 H 33 H 86 L 07/29/18 10:00 90 29 H 103/64 95 Laboratory Results Laboratory Results - last 24 hr 07/29/18 07/29/18 05:03 05:03 WBC 9.79 RBC 3.43 L Hgb 11.8 L Hct 34.2 L MCV 99.7 MCH 34.4 H MCHC 34.5 RDW Std Deviation 43.0 RDW Coeff of [place] 12.1 Plt Count 191 D MPV 8.6 Immature Gran % (Auto) 0.3 Neut % (Auto) 80.9 Lymph % (Auto) 10.4 [place] % (Auto) 7.6 Eos % (Auto) 0.7 Baso % (Auto) 0.1 Immature Gran # (Auto) 0.03 H Neut # (Auto) 7.92 H Lymph # (Auto) 1.02 L [place] # (Auto) 0.74 H Eos # (Auto) 0.07 Baso # (Auto) 0.01 Sodium 135 L Potassium 4.3 Chloride 102 Carbon Dioxide 27 Anion Gap 6.0 BUN 13 Creatinine 0.40 L Est Cr Clr Drug Dosing 167.9 Est GFR ( Amer) > 150.0 Est GFR (Non-Af Amer) 148.9 BUN/Creatinine Ratio 31.6 H Glucose 81 Calcium 9.4 (1) Anemia Anemia type: unspecified type Qualified Code(s): D64.9 - Anemia, unspecified (2) Cerebral palsy Cerebral palsy type: unspecified type Qualified Code(s): G80.9 - Cerebral palsy, unspecified
[2018-07-30] MEDS: guaiFENesin SUGAR FREE 100 MG/5 ML UDC PO SCH ×4 (00:33→17:37)
[2018-07-30] MEDS: IMIPENEM/CILASTATIN SODIUM 250 MG in DEXTROSE 5% 100 ML IV SCH ×5 (00:54→17:36)
--- NOTE | 2018-07-30 06:29 | Critical Care Progress Note ---
Date of Service July 30, 2018 Assessment & Plan (1) Admitted to intensive care unit: Reason Critically Ill: 22-year-old female with acute on chronic respiratory failure with hypoxemia secondary to acute mucous plugging of the LEFT main bronchus. NEURO - * Unable to assess secondary to baseline mental status. * History of CP. At baseline * Continue home medications as prescribed. CARDIAC/VASCULAR - * No history of cardiovascular disease. * Monitor on telemetry. RESPIRATORY - * Acute on chronic hypoxic respiratory failure: Improving * Still tolerating off mechanical ventilator * Continue with antibiotic imipenem GI/NUTRITION - * Continue with tube feeds * Hypoalbuminemia * Continue with additional protein supplementation RENAL/LYTES - * Monitor lytes - * No [facility] ENDO - * No history of diabetes or thyroid disease * BSGs per unit protocol. ISS --> gtt per unit policy. HEME - * Stable H&H. ID - * LEFT lower lobe pneumonia * Continue imepenem day 6 of 14 LINES/IV ACCESS - * PIVs x2 DVT PROPHYLAXIS: * SCDs * Patient at baseline functional status. Chemical prophylaxis not indicated Was discussed in multidisciplinary rounds Dr. Jaramillo was resident physician during care of patient. I separately evaluated patient for canales portions of the history and the exam. I was present during the critical portion of medical decision making, and I discussed the case with the resident. I generally agree with the findings and plan. (2) Acute respiratory failure with hypoxemia: (3) Cerebral palsy: management per primary team (4) Fever: (5) Pneumonia: Subjective Selvin appears comfortable this morning, sleeping soundly Review of Systems Review of Systems: Unobtainable due to cognitive status Physical Exam Constitutional: + ill appearing, + cachectic, + altered mental status, + behavioral limitations and + physical limitations Eyes: PERRL, conjunctivae normal, anicteric sclerae Respiratory: no respiratory distress Auscultation: + rales and + rhonchi Cardiovascular: Rate/Rhythm: regular rhythm and + tachycardic Heart Sounds: no click, no gallop, no murmur and no cardiac rub Extremities: no edema Gastrointestinal (Abdomen): Percussion/Palpation: abdomen soft; abdomen nontender Skin: no rashes, warm and dry Neurologic: PERRL, EOMI, accommodation nl, no face palsy, no dysarthria moves all extremities Motor/Sensory: no tremor Results & Data Vital Signs (Past 12 Hours) Vital Signs Temp Pulse Pulse Resp BP Pulse Ox 07/30/18 05:45 94 H 22 95 07/30/18 05:00 84 21 96/57 L 96 07/30/18 04:00 37 C 76 18 88/52 L 97 07/30/18 03:00 97 H 19 107/56 L 96 07/30/18 02:00 81 28 H 85/46 L 96 07/30/18 01:20 88 24 98 07/30/18 01:00 87 24 93/55 L 97 07/30/18 00:00 37 C 93 H 24 91/55 L 97 07/29/18 23:52 88 24 98 07/29/18 23:14 85 22 96/52 L 98 07/29/18 22:25 84 25 H 83/50 L 97 07/29/18 22:20 83 27 H 80/47 L 97 07/29/18 22:15 88 26 H 84/48 L 97 07/29/18 22:10 90 23 80/42 L 97 07/29/18 22:05 92 H 23 82/43 L 96 07/29/18 22:00 94 H 24 87/41 L 96 07/29/18 21:55 92 H 23 93/49 L 97 07/29/18 21:52 100 H 31 H 98/55 L 99 07/29/18 21:45 100 H 24 95/55 L 97 07/29/18 21:40 100 H 25 H 96/51 L 96 07/29/18 21:35 104 H 27 H 95/51 L 96 07/29/18 21:30 103 H 27 H 89/51 L 95 07/29/18 21:25 101 H 26 H 92/52 L 95 07/29/18 21:20 103 H 27 H 93/53 L 96 07/29/18 21:15 100 H 26 H 95/47 L 95 07/29/18 21:10 100 H 27 H 86/52 L 95 07/29/18 21:05 99 H 26 H 92/48 L 95 07/29/18 21:00 100 H 26 H 93/48 L 95 07/29/18 20:55 98 H 24 103/52 L 97 07/29/18 20:50 101 H 24 103/53 L 96 07/29/18 20:46 102 H 23 106/54 L 95 07/29/18 20:40 101 H 28 H 114/57 L 98 07/29/18 20:35 104 H 31 H 99/61 L 97 07/29/18 20:30 104 H 28 H 98/58 L 97 07/29/18 20:25 102 H 30 H 114/65 98 07/29/18 20:21 103 H 30 H 105/48 L 99 07/29/18 20:15 96 H 14 98/67 L 100 07/29/18 20:11 90 22 99/67 L 100 07/29/18 20:06 94 H 28 H 83/56 L 100 07/29/18 20:00 90 18 107/63 100 07/29/18 19:56 94 H 22 100 07/29/18 19:55 94 H 29 H 104/63 100 07/29/18 19:50 89 26 H 102/58 L 99 07/29/18 19:45 94 H 27 H 98/63 L 98 07/29/18 19:40 93 H 28 H 90/61 L 99 07/29/18 19:35 92 H 28 H 100/68 99 07/29/18 19:30 93 H 27 H 102/58 L 99 07/29/18 19:25 91 H 18 97/58 L 99 07/29/18 19:20 93 H 28 H 93/59 L 98 07/29/18 19:15 91 H 27 H 80/69 L 98 07/29/18 19:10 93 H 13 100/42 L 98 07/29/18 19:06 92 H 17 91/43 L 98 07/29/18 19:00 98 H 21 109/60 99 07/29/18 18:55 90 18 101/59 L 98 07/29/18 18:50 88 26 H 97/79 L 98 07/29/18 18:45 98 H 31 H 100/63 98 07/29/18 18:40 90 26 H 101/62 98 07/29/18 18:35 94 H 21 101/67 96 07/29/18 18:30 95 H 26 H 100/63 98 (1) Fever Fever type: unspecified Qualified Code(s): R50.9 - Fever, unspecified (2) Cerebral palsy Cerebral palsy type: unspecified type Qualified Code(s): G80.9 - Cerebral palsy, unspecified (3) Pneumonia Laterality: left Lung location: lower lobe of lung Pneumonia type: due to unspecified organism Qualified Code(s): J18.1 - Lobar pneumonia, unspecified organism
[2018-07-30] MEDS: ACETYLCYSTEINE 10% INHAL SOLN **DISPENSED FROM RESP. INH SCH ×2 (07:40→18:53)
[2018-07-30] MEDS: BUDESONIDE 0.5 MG/2 ML VIAL (PULMICORT) INH SCH ×2 (07:40→18:53)
[2018-07-30] MEDS: ALBUTEROL 0.083% NEBU SOLN 3 ML VIAL NEB SCH ×2 (07:40→18:53)
[2018-07-30] MEDS: DORNASE ALFA 2.5 ML AMP INH SCH ×3 (08:05→18:53)
[2018-07-30] MEDS: NITROFURANTOIN 25 MG/5 ML PO SCH (08:11)
[2018-07-30] MEDS: TOBRAMYCIN SULF 40 MG/ML 2 ML VIAL INH SCH (08:12)
[2018-07-30] MEDS: BACLOFEN 20 MG TAB PO SCH ×3 (08:12→21:31)
[2018-07-30] MEDS: PROSOURCE NO CARB 30 ML/PKT PO SCH (08:13)
[2018-07-30] MEDS: VALPROIC ACID SOLN 500 MG/10 ML UDC PO SCH ×3 (08:13→21:31)
[2018-07-30] MEDS: FLUOXETINE HCL 20 MG/5 ML GT SCH (08:13)
[2018-07-30] MEDS: ZONISAMIDE 100 MG PO SCH ×2 (08:16→21:32)
[2018-07-30] MEDS: CETIRIZINE HCL 10 MG TABLET PO SCH (08:16)
--- NOTE | 2018-07-30 17:59 | XRay Report ---
XR chest 1V portable HISTORY: 22 years-old Female LLL pneumonia; worsening tachypnea acute tachycardia with reported pneu monia COMPARISON: Chest radiograph 07/28/2018 TECHNIQUE: Portable AP view of the chest FINDINGS: Tracheostomy cannula overlies the midline. Progressive hazy opacities of the left hemithorax, notably about the left lung base. No pneumothorax, large pleural effusion or overt pulmonary edema. Degenera tive changes of the shoulders and spine. IMPRESSION: 1. Progressive hazy opacities about the left hemithorax suggestive of atelectasis or pneumonitis. 2. No pneumothorax. 3. Stable positioning of the tracheostomy cannula. The above report was generated using voice recognition software. It may contain grammatical, syntax o r spelling errors. Electronically signed by: Finn Townsend M.D. 07/30/2018 5:57 PM
--- NOTE | 2018-07-30 18:02 | Hospitalist Progress Note ---
Date of Service July 30, 2018 Assessment & Plan (1) Acute respiratory failure with hypoxia and hypercapnia: 2nd to extensive LLL pneumonia and collapse. s/p multiple bronchs with removal of left-sided mucous plugs earlier this stay. last 2 bronchs have been relatively normal. Had been weaned to trach collar, then 2 nights ago began to require O2 again. Now on vapotherm via trach. Today - more tachypnea, tachycardia. Will obtain cxr to r/o worsening pneumonia or new areas of infiltrate. Dr Tarqi to possibly perform repeat bronch today. (2) Bronchopneumonia due to Pseudomonas species: LLL. Day #11 IV imipenem. All cultures to date with pseudomonas. Has had such in the past suggesting colonization from this pathogen. ID consult completed - 14-day course of imipenem recommended. Patient clinically looks worse today -- repeat cxr ordered. (3) Cerebral palsy: nonambulatory, nonverbal at baseline. trach/PEG. seizure disorder. continue all home chronic meds. (4) Thrombocytopenia: resolved. was likely due to infection. B12/folate were normal. (5) Anemia: Prior b12, folate levels normal. Iron studies normal. TSH minimally elevated; doubt it is playing any role. likely anemia chronic disease. CBC in am for stability. (6) Pleural effusion, left: parapneumonic. no signs clinically of empyema. cxr today to ensure no worsening. (7) Seizure disorder: cont home meds. no apparent seizures while here. (8) Status post insertion of percutaneous endoscopic gastrostomy (PEG) tube: cont home feeding regimen tolerating well stooling well (9) DVT prophylaxis: SCDs await repeat imaging Subjective patient more tachypneic and tachycardic today. trach with more secretions (white/mcmullen) this afternoon. tolerating tube feedings. neurologically is at baseline. Review of Systems Review of Systems: Unobtainable due to cognitive status Physical Exam Constitutional: + thin and + altered mental status nonverbal tachypneic but no retractions ENMT: external ear and nose normal, oropharynx normal Mouth: + oropharynx abnormality (cleft palate) Respiratory: + respiratory distress (tachypnea); no retractions and does not use accessory muscles Auscultation: + diminished lung sounds (left ); no crackles and no wheezes Cardiovascular: Rate/Rhythm: regular rhythm and + tachycardic Heart Sounds: normal S1 and normal S2; no murmur Vessels: posterior tibial pulses present and dorsalis pedis pulses present; no JVD Extremities: no edema Gastrointestinal (Abdomen): normal bowel sounds, soft, nontender, no hepatosplenomegaly PEG tube clean Neurologic: contractures Psychiatric: Orientation: + not alert and + not oriented x 3 Results & Data Vital Signs (Past 12 Hours) Vital Signs Temp Pulse Pulse Resp BP Pulse Ox 07/30/18 14:26 123 H 26 H 89 L 07/30/18 12:04 117 H 31 H 102/51 L 92 07/30/18 12:01 116 H 32 H 80/57 L 91 07/30/18 12:00 36.9 C 114 H 19 92 07/30/18 11:02 119 H 24 113/70 89 L 07/30/18 11:00 121 H 25 H 89 L 07/30/18 10:00 122 H 52 H 107/65 89 L 07/30/18 09:00 118 H 36 H 92/58 L 88 L 07/30/18 08:24 113 H 26 H 95 07/30/18 08:00 36.8 C 108 H 32 H 112/60 90 07/30/18 07:40 109 H 26 H 87 L 07/30/18 07:00 109 H 25 H 94/67 L 89 L (1) Cerebral palsy Cerebral palsy type: unspecified type Qualified Code(s): G80.9 - Cerebral palsy, unspecified (2) Anemia Anemia type: unspecified type Qualified Code(s): D64.9 - Anemia, unspecified
[2018-07-30] MEDS ORDERED: DIGOXIN 500 MCG/2 ML AMP IV ONE (18:53)
[2018-07-30] MEDS: TRAZODONE HCL 50 MG TAB GT SCH (21:30)
[2018-07-31] MEDS: guaiFENesin SUGAR FREE 100 MG/5 ML UDC PO SCH ×5 (00:10→23:45)
[2018-07-31] MEDS: IMIPENEM/CILASTATIN SODIUM 250 MG in DEXTROSE 5% 100 ML IV SCH ×5 (00:10→23:49)
[2018-07-31 05:31] LABS: BUN Creatinine Ratio 27.4 (10-20); Blood Urea Nitrogen 12 mg/dl (7-18); Calcium 9.2 mg/dl (8.5-10.1); Carbon Dioxide 30 mmol/L (21-32); Chloride 105 mmol/L (98-107); Est GFR (African American) > 150.0; Est GFR (Non-African American) 145.4; Glucose 76 mg/dl (70-99); Potassium 3.9 mmol/L (3.5-5.1); Sodium 138 mmol/L (136-145)
--- NOTE | 2018-07-31 05:44 | Critical Care Progress Note ---
Date of Service July 31, 2018 Assessment & Plan (1) Admitted to intensive care unit: Reason Critically Ill: 22-year-old female with acute on chronic respiratory failure with hypoxemia secondary to acute mucous plugging of the LEFT main bronchus. NEURO - * Unable to assess secondary to baseline mental status. * History of CP. At baseline * Continue home medications as prescribed. CARDIAC/VASCULAR - * No history of cardiovascular disease. * Monitor on telemetry. RESPIRATORY - * Acute on chronic hypoxic respiratory failure: Improving * Still tolerating off mechanical ventilator * Continue with antibiotic imipenem GI/NUTRITION - * Continue with tube feeds * Hypoalbuminemia * Continue with additional protein supplementation RENAL/LYTES - * Monitor lytes - * No [facility] ENDO - * No history of diabetes or thyroid disease * BSGs per unit protocol. ISS --> gtt per unit policy. HEME - * Stable H&H. ID - * LEFT lower lobe pneumonia * Continue imepenem day 7 of 14 LINES/IV ACCESS - * PIVs x2 DVT PROPHYLAXIS: * SCDs * Patient at baseline functional status. Chemical prophylaxis not indicated Was discussed in multidisciplinary rounds (2) Acute respiratory failure with hypoxemia: (3) Cerebral palsy: management per primary team (4) Fever: (5) Pneumonia: Supervising Physician Co-Signing Physician Notes Dr. Jaramillo was resident physician during care of patient. I separately evaluated patient for canales portions of the history and the exam. I was present during the critical portion of medical decision making, and I discussed the case with the resident. I generally agree with the findings and plan. Discussed with Dr. Gray of the hospitalist service, stable for downgrade Subjective Selvin appears comfortable today, sitting in bed. Review of Systems Review of Systems: Unobtainable due to cognitive status and Unobtainable due to reduced consciousness Physical Exam Constitutional: + ill appearing, + cachectic, + altered mental status, + behavioral limitations and + physical limitations Eyes: PERRL, conjunctivae normal, anicteric sclerae Respiratory: no respiratory distress Auscultation: + rales and + rhonchi Cardiovascular: Rate/Rhythm: regular rhythm and + tachycardic Heart Sounds: no click, no gallop, no murmur and no cardiac rub Extremities: no edema Gastrointestinal (Abdomen): Percussion/Palpation: abdomen soft; abdomen nontender Skin: no rashes, warm and dry Neurologic: PERRL, EOMI, accommodation nl, no face palsy, no dysarthria moves all extremities Motor/Sensory: no tremor Results & Data Vital Signs (Past 12 Hours) Vital Signs Temp Pulse Pulse Resp BP Pulse Ox 07/31/18 03:01 36.6 C 84 19 98 07/31/18 03:00 85 26 H 92/53 L 07/31/18 02:01 92 H 29 H 97 07/31/18 02:00 79 26 H 97/60 L 96 07/31/18 01:17 108 H 18 98 07/31/18 01:00 96 H 27 H 100/66 97 07/31/18 00:01 111 H 32 H 101/57 L 98 07/31/18 00:00 111 H 34 H 85 L 07/30/18 23:00 116 H 33 H 107/56 L 96 07/30/18 22:00 128 H 34 H 103/42 L 90 07/30/18 21:00 140 H 29 H 105/56 L 94 07/30/18 20:00 36.6 C 130 H 33 H 100/48 L 96 07/30/18 19:00 108 H 28 H 104/68 93 07/30/18 18:53 99 H 24 93 07/30/18 18:01 110 H 35 H 07/30/18 18:00 116 H 35 H 102/56 L (1) Fever Fever type: unspecified Qualified Code(s): R50.9 - Fever, unspecified (2) Cerebral palsy Cerebral palsy type: unspecified type Qualified Code(s): G80.9 - Cerebral palsy, unspecified (3) Pneumonia Laterality: left Lung location: lower lobe of lung Pneumonia type: due to unspecified organism Qualified Code(s): J18.1 - Lobar pneumonia, unspecified organism
[2018-07-31 06:52] LABS: Basophils # (auto) 0.02 K/uL (0-0.2); Basophils % (auto) 0.2 %; Eosinophils # (auto) 0.01 K/uL (0-0.5); Eosinophils % (auto) 0.1 %; Hematocrit (blood only) 34.1 % (37-47); Hemoglobin 11.6 g/dL (12.0-16.0); Immature Granulocytes # (auto) 0.04 K/uL (0.00-0.02); Immature Granulocytes % (auto) 0.4 %; Lymphocytes # (auto) 1.58 K/uL (1.2-3.4); Lymphocytes % (auto) 17.2 %; Mean Corpuscular Volume 101.2 fL (80-100); Mean Platelet Volume 8.5 fL (7.4-10.4); Monocytes # (auto) 1.08 K/uL (0.11-0.59); Monocytes % (auto) 11.7 %; Neutrophils # (auto) 6.47 K/uL (1.4-6.5); Neutrophils % (auto) 70.4 %; Platelet Count 198 K/uL (130-400); RDW Coefficient of Variation 12.6 % (11.5-14.5); RDW Standard Deviation 44.7 fL (36.4-46.3); Red Blood Count 3.37 M/uL (4.2-5.4)
[2018-07-31] MEDS: NITROFURANTOIN 25 MG/5 ML PO SCH (07:49)
[2018-07-31] MEDS: BACLOFEN 20 MG TAB PO SCH ×3 (07:50→21:07)
[2018-07-31] MEDS: PROSOURCE NO CARB 30 ML/PKT PO SCH (07:51)
[2018-07-31] MEDS: FLUOXETINE HCL 20 MG/5 ML GT SCH (07:51)
[2018-07-31] MEDS: ZONISAMIDE 100 MG PO SCH ×2 (07:52→21:06)
[2018-07-31] MEDS: VALPROIC ACID SOLN 500 MG/10 ML UDC PO SCH ×3 (07:52→21:02)
[2018-07-31] MEDS: CETIRIZINE HCL 10 MG TABLET PO SCH (07:54)
[2018-07-31] MEDS: BUDESONIDE 0.5 MG/2 ML VIAL (PULMICORT) INH SCH ×2 (08:41→21:31)
[2018-07-31] MEDS: DORNASE ALFA 2.5 ML AMP INH SCH ×3 (08:41→20:00)
[2018-07-31] MEDS: ALBUTEROL 0.083% NEBU SOLN 3 ML VIAL NEB SCH ×2 (08:41→21:31)
[2018-07-31] MEDS: ACETYLCYSTEINE 10% INHAL SOLN **DISPENSED FROM RESP. INH SCH ×2 (08:41→21:30)
[2018-07-31] MEDS: TOBRAMYCIN SULF 40 MG/ML 2 ML VIAL INH SCH (11:47)
--- NOTE | 2018-07-31 18:49 | Hospitalist Progress Note ---
Date of Service July 31, 2018 Assessment & Plan (1) Acute respiratory failure with hypoxia and hypercapnia: 2nd to extensive LLL pneumonia and collapse. s/p multiple bronchs with removal of left-sided mucous plugs earlier this stay. last 2 bronchs have been relatively normal. Had been weaned to trach collar, then 3 nights ago began to require O2 again. Now on vapotherm via trach. CXR yesterday with mildly increased left-sided opacities - suspect atelectasis rather than worsening pneumonia. She looks quite comfortable today with resolution of mild retractions and tachypnea. Spoke with Dr Chandni harmon to d/c ICU status - go to PCU. Will consult pulmonary to help w/ management on the floor. Finish abx. (2) Bronchopneumonia due to Pseudomonas species: LLL. Day #12/14 IV imipenem. All cultures to date with pseudomonas. Has had such in the past suggesting colonization from this pathogen. ID consult completed - 14-day course of imipenem recommended. Wean O2. (3) Cerebral palsy: nonambulatory, nonverbal at baseline. trach/PEG. seizure disorder. continue all home chronic meds. (4) Thrombocytopenia: resolved. was likely due to infection. B12/folate were normal. (5) Anemia: Prior b12, folate levels normal. Iron studies normal. TSH minimally elevated; doubt it is playing any role. likely anemia chronic disease. CBC stable. (6) Pleural effusion, left: small, parapneumonic. no signs clinically of empyema. (7) Seizure disorder: cont home meds. no apparent seizures while here. (8) Status post insertion of percutaneous endoscopic gastrostomy (PEG) tube: cont home feeding regimen tolerating well stooling well (9) DVT prophylaxis: SCDs left message for pt's mother informing her of transfer to PCU today Subjective no events overnight remains on vapotherm via trach less secretions today no distress tolerating PEG tube feedings tele stable Review of Systems Review of Systems: Other (nonverbal and does not follow commands) Physical Exam Constitutional: + thin and + altered mental status ENMT: external ear and nose normal, oropharynx normal Mouth: + oropharynx abnormality (cleft palate) Respiratory: no respiratory distress, no retractions and does not use accessory muscles Auscultation: + diminished lung sounds (left base - minimal); no crackles and no wheezes Cardiovascular: Rate/Rhythm: regular rhythm and + tachycardic Heart Sounds: normal S1 and normal S2; no murmur Vessels: posterior tibial pulses present and dorsalis pedis pulses present; no JVD Extremities: no edema Gastrointestinal (Abdomen): normal bowel sounds, soft, nontender, no hepatosplenomegaly Neurologic: contractures of legs Psychiatric: Orientation: + not alert and + not oriented x 3 Results & Data Vital Signs (Past 12 Hours) Vital Signs Temp Pulse Pulse Resp BP Pulse Ox 07/31/18 18:11 115 H 31 H 97/53 L 93 07/31/18 18:00 116 H 37 H 97/53 L 95 07/31/18 17:00 102 H 31 H 94/58 L 98 07/31/18 16:02 107 H 34 H 107/68 93 07/31/18 16:00 36.9 C 103 H 17 92 07/31/18 15:00 109 H 18 71 L 07/31/18 14:00 126 H 26 H 123/102 H 84 L 07/31/18 13:56 110 H 20 93 07/31/18 13:00 115 H 34 H 106/71 90 07/31/18 12:00 36.8 C 107 H 31 H 103/71 92 07/31/18 11:00 107 H 32 H 96/64 L 94 07/31/18 10:00 118 H 21 97/66 L 07/31/18 09:00 118 H 40 H 101/62 88 L 07/31/18 08:00 36.8 C 109 H 24 97/58 L 91 07/31/18 07:30 115 H 24 95 07/31/18 07:06 102 H 36 H 88/61 L 94 07/31/18 07:05 107 H 29 H 93 07/31/18 07:01 103 H 33 H 60/45 L 92 07/31/18 07:00 105 H 18 91 (1) Cerebral palsy Cerebral palsy type: unspecified type Qualified Code(s): G80.9 - Cerebral palsy, unspecified (2) Anemia Anemia type: unspecified type Qualified Code(s): D64.9 - Anemia, unspecified
[2018-07-31] MEDS: TRAZODONE HCL 50 MG TAB GT SCH (21:07)
[2018-08-01] MEDS: guaiFENesin SUGAR FREE 100 MG/5 ML UDC PO SCH ×4 (05:37→23:20)
[2018-08-01] MEDS: IMIPENEM/CILASTATIN SODIUM 250 MG in DEXTROSE 5% 100 ML IV SCH ×4 (05:37→23:21)
[2018-08-01] MEDS: BUDESONIDE 0.5 MG/2 ML VIAL (PULMICORT) INH SCH ×2 (07:05→19:13)
[2018-08-01] MEDS: ALBUTEROL 0.083% NEBU SOLN 3 ML VIAL NEB SCH ×2 (07:05→19:13)
[2018-08-01] MEDS: ACETYLCYSTEINE 10% INHAL SOLN **DISPENSED FROM RESP. INH SCH ×2 (07:05→19:14)
[2018-08-01] MEDS: DORNASE ALFA 2.5 ML AMP INH SCH ×3 (07:06→19:43)
[2018-08-01] MEDS: ZONISAMIDE 100 MG PO SCH ×2 (08:27→21:15)
[2018-08-01] MEDS: BACLOFEN 20 MG TAB PO SCH ×3 (08:27→21:16)
[2018-08-01] MEDS: NITROFURANTOIN 25 MG/5 ML PO SCH (08:28)
[2018-08-01] MEDS: FLUOXETINE HCL 20 MG/5 ML GT SCH (08:29)
[2018-08-01] MEDS: VALPROIC ACID SOLN 500 MG/10 ML UDC PO SCH ×3 (08:29→21:15)
[2018-08-01] MEDS: CETIRIZINE HCL 10 MG TABLET PO SCH (08:29)
[2018-08-01] MEDS: PROSOURCE NO CARB 30 ML/PKT PO SCH (08:30)
--- NOTE | 2018-08-01 13:11 | Progress Note ---
DATE: 08/01/2018 TIME: 12:10 p.m. This is a followup pulmonary evaluation requested by Dr. Garcia. SUBJECTIVE: The patient is a 22-year-old female with longstanding cerebral palsy. She was seen for Pulmonary consultation initially by Dr. Rogers on 07/21/2018. She was found to have a left lower lobe pneumonia and atelectasis. She initially was on the regular floor and then had to be transferred to the ICU. She has a longstanding tracheostomy. During the course of her hospital stay, she has undergone approximately 4 bronchoscopies for removal of secretions. This was primarily involving the left main bronchus and left upper lobe and lower lobe bronchi. For several days, she kept having recurring problems. She was unable herself to expectorate phlegm. The patient also has a PEG tube long-term. She apparently was on the ventilator for some of the stay in the ICU. She was transferred out of ICU within the past day or two. Pseudomonas aeruginosa has been cultured out of bronchial washings. Several sputum have had pseudomonas by history. So, she is colonized with pseudomonas, but this time seems to have pseudomonas as a pathogen. She has been doing overall much better. Nursing reports that the patient has a tendency to prefer to lie on the left side. This may well be contributing to her atelectasis problem. At home, she is not typically on oxygen. She is now on trach collar, but remains on 40% oxygen currently. She has been on imipenem for antibiotic coverage for about 12 days and will be finishing 2 more days. OBJECTIVE: GENERAL: The patient appears comfortable at rest. She is nonverbal, which she is at baseline. She did not appear in any distress. VITAL SIGNS: Temperature is 37.2. Back on 07/29/2018, she did have a fever up to 37.9 and on 07/25/2018, she was 37.8. Otherwise, she has been afebrile. ENT: She does have tracheostomy in place. EYES: Her pupils do react. HEART: Heart rate 98 per minute. Rhythm regular. Blood pressure 98/60. LUNGS: Respiratory rate 28 breaths per minute, but not labored. The breath sounds are better heard on the right than on the left. Nursing did assist me with turning the patient side to side, so that I could auscultate optimally. No rhonchi are heard. No rales are heard. However, the patient has relatively low flows. Current saturation 95%. ABDOMEN: Reveals evidence of a PEG tube. The abdomen is soft. Bowel sounds were heard. EXTREMITIES: The lower extremities reveal some degree of contractures. She has some ecchymosis in the area of the knees bilaterally. No edema noted. The patient moves very little. I have reviewed all of her x-rays since admission. The most recent x-ray done on 07/30/2018 shows overall good aeration of the left. There is mild haziness on the left compared with the right. LABORATORY DATA: White count today is 9.2. Hemoglobin 11.6. Platelets 198,000. Electrolytes today are normal. BUN is 12 with a creatinine 0.43. IMPRESSIONS: 1. Acute respiratory failure with hypoxia. 2. Left lung atelectasis. 3. Pneumonia left lower lobe secondary to pseudomonas. 4. Cerebral palsy. 5. Status post tracheostomy. COMMENTS AND RECOMMENDATIONS: The patient is clinically much improved from my review of the patient and her records. Would continue with the current treatment. We will ask the Pulmonary team to continue to follow her. The imipenem is supposed to be finished in another day or two. Would continue with the pulmonary toilet she has been receiving. If the patient would have recurring atelectasis, consideration could be given to BIPAP trial through her trach. This would be an effort to try and keep the airway open. I believe it may be important to try and be sure that the patient does not spend most of her time on the left side, which will contribute to the left-sided atelectasis.
[2018-08-01] MEDS: TRAZODONE HCL 50 MG TAB GT SCH (21:16)
--- NOTE | 2018-08-01 21:36 | Hospitalist Progress Note ---
Date of Service August 01, 2018 Assessment & Plan (1) Acute respiratory failure with hypoxia and hypercapnia: 2nd to extensive LLL pneumonia and collapse. s/p multiple bronchs while in ICU with removal of left-sided mucous plugs earlier this stay. last 2 bronchs were relatively normal. Had been weaned to trach collar, several nights ago had worsening O2 requirement. Placed on vapotherm HFNC via trach. Was stable last 2-3 days. Weaned to trach collar with blow-by O2 today. Dr Lopez saw in consult today -- suggested possibly using BIPAP via trach at home At NIGHT ONLY. He suggested such to help prevent atelectasis. I mentioned this to pt's mother by phone today -- she was not happy as she felt that attempting to set this up for Selvin at home would delay her discharge. Would defer ultimate decision of any night-time BIPAP, vent, etc to Dr Matthew. (2) Bronchopneumonia due to Pseudomonas species: LLL. Day #13/ IV imipenem. All cultures to date with pseudomonas. Has had such in the past suggesting colonization from this pathogen. ID consult completed - 14-day course of imipenem recommended. Wean O2. I am concerned by low-grade temps today. Repeat cxr in am tomorrow for interval change. Appreciate pulmonary assistance. (3) Cerebral palsy: nonambulatory, nonverbal at baseline. trach/PEG. seizure disorder. continue all home chronic meds. (4) Thrombocytopenia: resolved. was likely due to infection. B12/folate were normal. (5) Anemia: Prior b12, folate levels normal. Iron studies normal. TSH minimally elevated; doubt it is playing any role. likely anemia chronic disease. CBC stable. (6) Pleural effusion, left: small, parapneumonic. no signs clinically of empyema at this time. however, if fever persists or she develops wbc count elevation -- consider re- imaging lungs w/ CT. (7) Seizure disorder: cont home meds. no apparent seizures while here. (8) Status post insertion of percutaneous endoscopic gastrostomy (PEG) tube: cont home feeding regimen tolerating well stooling well (9) DVT prophylaxis: SCDs extensive update given to pt 's mother on 08/01/18 by phone she desires Selvin to d/c home tomorrow if at all possible; feels Selvin is at baseline this hinges on Dr Matthew's evaluation tomorrow, resp status, whether Tristan Matthew or Jessica recommend BIPAP via trach, etc Subjective tele - NSR or sinus tach overnight no issues per staff occasional desaturation -- improves w/ suctioning off vapotherm via trach now on blow-by O2 via trach collar (30-40%FiO2) spoke with pt's mother by phone tonight -- she stated "she looks pretty good" wants to take her home on Thursday Review of Systems Review of Systems: Other (nonverbal, and does not follow commands at baseline) Physical Exam Constitutional: + thin and + altered mental status ENMT: external ear and nose normal, oropharynx normal Mouth: + oropharynx abnormality (cleft palate) Respiratory: no respiratory distress, no retractions and does not use accessory muscles Auscultation: + diminished lung sounds (left base - minimal); no crackles and no wheezes Cardiovascular: Rate/Rhythm: regular rhythm and + tachycardic Heart Sounds: normal S1 and normal S2; no murmur Vessels: posterior tibial pulses present and dorsalis pedis pulses present; no JVD Extremities: no edema Gastrointestinal (Abdomen): normal bowel sounds, soft, nontender, no hepatosplenomegaly PEG in place; clean Psychiatric: Orientation: + not alert and + not oriented x 3 Results & Data Vital Signs (Past 12 Hours) Vital Signs Temp Pulse Resp BP Pulse Ox 08/01/18 20:52 37.9 C H 106 H 36 H 106/67 92 08/01/18 19:14 105 H 34 H 91 08/01/18 15:28 37.6 C H 108 H 26 H 90/67 L 95 08/01/18 13:26 118 H 24 92 08/01/18 11:53 37.2 C 98 H 28 H 98/60 L 95 (1) Anemia Anemia type: unspecified type Qualified Code(s): D64.9 - Anemia, unspecified (2) Cerebral palsy Cerebral palsy type: unspecified type Qualified Code(s): G80.9 - Cerebral palsy, unspecified
[2018-08-02] MEDS: guaiFENesin SUGAR FREE 100 MG/5 ML UDC PO SCH ×3 (06:13→16:42)
[2018-08-02] MEDS: IMIPENEM/CILASTATIN SODIUM 250 MG in DEXTROSE 5% 100 ML IV SCH ×3 (06:13→16:39)
[2018-08-02] MEDS: BUDESONIDE 0.5 MG/2 ML VIAL (PULMICORT) INH SCH ×2 (06:57→21:18)
[2018-08-02] MEDS: ACETYLCYSTEINE 10% INHAL SOLN **DISPENSED FROM RESP. INH SCH ×2 (06:57→19:18)
[2018-08-02] MEDS: DORNASE ALFA 2.5 ML AMP INH SCH ×3 (06:58→21:27)
[2018-08-02] MEDS: ALBUTEROL 0.083% NEBU SOLN 3 ML VIAL NEB SCH ×2 (06:58→19:18)
--- NOTE | 2018-08-02 07:17 | XRay Report ---
XR chest 1V portable CLINICAL HISTORY: 22 years-old Female presenting with LLL pneumonia, interval change. TECHNIQUE: Portable upright AP view of the chest was obtained. COMPARISON: 07/30/2018. FINDINGS: Cardiomediastinal silhouette normal. Small left pleural effusion is new or slightly increased from pr ior. Decreased aeration of the left lung base. Overall asymmetry of density of the left lung in curt rison to the right has decreased. Tracheostomy tube not as well visualized on the current exam. Sever al external leads overlie the thorax degrading evaluation. Osteopenia may be present. Upper abdomen n ormal. IMPRESSION: 1. Decreased aeration of the left lung base with suspected increased left pleural effusion. Findings raise concern for focal interval worsening. 2. Overall asymmetric density of the lungs has resolved, which may suggest more diffuse left lung in filtrate has decreased or the effusion on the prior exam may have been layering rather than at the [place] ng base. Electronically signed by: Ray Rachel M.D. 08/02/2018 7:15 AM
[2018-08-02] MEDS: NITROFURANTOIN 25 MG/5 ML PO SCH (08:07)
[2018-08-02] MEDS: PROSOURCE NO CARB 30 ML/PKT PO SCH (08:07)
[2018-08-02] MEDS: ZONISAMIDE 100 MG PO SCH ×2 (08:07→21:27)
[2018-08-02] MEDS: BACLOFEN 20 MG TAB PO SCH ×3 (08:08→21:26)
[2018-08-02] MEDS: FLUOXETINE HCL 20 MG/5 ML GT SCH (08:08)
[2018-08-02] MEDS: VALPROIC ACID SOLN 500 MG/10 ML UDC PO SCH ×3 (08:08→21:26)
[2018-08-02] MEDS: CETIRIZINE HCL 10 MG TABLET PO SCH (08:09)
--- NOTE | 2018-08-02 15:42 | Hospitalist Progress Note ---
Date of Service August 02, 2018 Assessment & Plan (1) Acute respiratory failure with hypoxia and hypercapnia: 2nd to extensive LLL pneumonia and collapse. s/p multiple bronchoscopies while in ICU with removal of left-sided mucous plugs earlier this stay. last 2 bronchs were relatively normal. Had been weaned to trach collar, several nights ago had worsening O2 requirement. Placed on vapotherm HFNC via trach. stable for past 4 days Weaned to trach collar with blow-by O2 today weaned to 30% FiO2 discussed with patient's mother, they have oxygen at home Dr Lopez saw in consult 08/01 -- suggested possibly using BIPAP via trach at home At NIGHT ONLY. He suggested such to help prevent atelectasis. discussed with Dr. Matthew today, will avoid using for now patient's mother says she would be open to it in the future if it would help (2) Bronchopneumonia due to Pseudomonas species: LLL. today is day #14/14 IV imipenem. All cultures to date with pseudomonas. Has had such in the past suggesting colonization from this pathogen. ID consult completed - 14-day course of imipenem recommended. Wean O2, down to 30% FiO2 some low grade temperatures yesterday and then this afternoon CXR 08/02 with improved aeration bilaterally increased pleural effusion in left base and some atelectasis will repeat tomorrow morning (3) Cerebral palsy: nonambulatory, nonverbal at baseline. trach/PEG. seizure disorder. continue all home chronic meds. (4) Thrombocytopenia: resolved. was likely due to infection. B12/folate were normal. (5) Anemia: Prior b12, folate levels normal. Iron studies normal. TSH minimally elevated; doubt it is playing any role. likely anemia chronic disease. CBC stable. (6) Pleural effusion, left: small, parapneumonic. no signs clinically of empyema at this time. however, if fever persists or she develops wbc count elevation repeat CXR tomorrow AM (7) Seizure disorder: cont home meds. no apparent seizures while here. (8) Status post insertion of percutaneous endoscopic gastrostomy (PEG) tube: cont home feeding regimen tolerating well stooling well (9) DVT prophylaxis: SCDs discussed with patient's mother today plan for d/c to home tomorrow as long as she remains stable Subjective discussed with mother at the bedside planned for d/c tomorrow morning discussed using night time BIPAP with Dr. Matthew, he would not recommend at this time viewed CXR taken today, increased aeration in both lungs some increased left sided effusion and atelectasis no fever today, low grade temp yesterday and then in afternoon today today is day for Primaxin no labs today remains with tachycardia and bouts of tachypnea, this has been common throughout admission Review of Systems Review of Systems: Unobtainable due to cognitive status (cerebral palsy, non- verbal) Physical Exam Constitutional: well developed, + thin, + physical limitations and + frail appearing; not in distress Eyes: PERRL, conjunctivae normal, anicteric sclerae ENMT: external ear and nose normal, oropharynx normal Neck: trachea midline, no thyromegaly (trach collar in place) Respiratory: + labored breathing (at times); no respiratory distress Auscultation: + diminished lung sounds (left base) and + rhonchi (left side); no wheezes Cardiovascular: Rate/Rhythm: regular rhythm and + tachycardic Heart Sounds: normal S1 and normal S2; no murmur Vessels: no JVD Extremities: no edema Gastrointestinal (Abdomen): normal bowel sounds, soft, nontender, no hepatosplenomegaly (PEG in place) Musculoskeletal: Head/Neck/Chest: normocephalic and head atraumatic Extremities: + abnormal muscle tone and + muscle atrophy; + extremities abnormal to inspection (contractures), no cyanosis and no clubbing Skin: no rashes, warm and dry Neurologic: awake; + does not move all extremities and no focal motor deficits Speech / Cognition: + abnormal speech (non verbal) Motor/Sensory: + abnormal movement Psychiatric: Orientation: alert and cooperative; + not oriented to person, + not oriented to place and + not oriented to time Lymphatic: no cervical or axillary lymphadenopathy Results & Data Vital Signs (Past 12 Hours) Vital Signs Temp Pulse Pulse Resp BP Pulse Ox 08/02/18 14:09 108 H 20 94 08/02/18 11:43 36.8 C 91 H 26 H 98/56 L 97 08/02/18 10:31 97 08/02/18 10:30 100 08/02/18 08:05 36.5 C 104 H 24 112/75 93 08/02/18 06:58 80 20 93 Diagnostic Findings XR chest 1V portable CLINICAL HISTORY: 22 years-old Female presenting with LLL pneumonia, interval change. TECHNIQUE: Portable upright AP view of the chest was obtained. COMPARISON: 07/30/2018. FINDINGS: Cardiomediastinal silhouette normal. Small left pleural effusion is new or slightly increased from prior. Decreased aeration of the left lung base. Overall asymmetry of density of the left lung in comparison to the right has decreased. Tracheostomy tube not as well visualized on the current exam. Several external leads overlie the thorax degrading evaluation. Osteopenia may be present. Upper abdomen normal. IMPRESSION: 1. Decreased aeration of the left lung base with suspected increased left pleural effusion. Findings raise concern for focal interval worsening. 2. Overall asymmetric density of the lungs has resolved, which may suggest more diffuse left lung infiltrate has decreased or the effusion on the prior exam may have been layering rather than at the lung base. Medications Administered Current Inpatient Medications Acetaminophen (Tylenol) 650 mg PEG Q4H PRN PRN Reason: Pain or Fever Stop: 08/21/18 21:21 Last Admin: 07/29/18 06:21 Dose: 650 mg Documented by: Acetylcysteine (Mucomyst 10%) 3 ml INH BIDR [facility] Stop: 08/21/18 20:59 Last Admin: 08/02/18 06:57 Dose: 3 ml Documented by: Albuterol (Ventolin 0.083% 2.5mg/3ml) 2.5 mg INH Q4H PRN PRN Reason: Wheezing/ shortness of breath Stop: 08/19/18 13:14 Last Admin: 07/23/18 19:47 Dose: 2.5 mg Documented by: Albuterol (Ventolin 0.083% 2.5mg/3ml) 2.5 mg NEB BIDR [facility] Stop: 08/23/18 19:59 Last Admin: 08/02/18 06:58 Dose: 2.5 mg Documented by: Baclofen (Lioresal) 20 mg PO TID [facility] Stop: 08/19/18 13:59 Last Admin: 08/02/18 13:27 Dose: 20 mg Documented by: Budesonide (Pulmicort Respules) 0.5 mg INH BIDR [facility] Stop: 08/23/18 19:59 Last Admin: 08/02/18 06:57 Dose: 0.5 mg Documented by: Cetirizine HCl (Zyrtec) 10 mg PO DAILY [facility] Stop: 08/20/18 08:59 Last Admin: 08/02/18 08:09 Dose: 10 mg Documented by: Clonazepam (Klonopin) 0.5 mg PO DAILY PRN PRN Reason: prolonged seizures Stop: 08/19/18 13:44 Last Admin: 07/22/18 18:23 Dose: 0.5 mg Documented by: Dornase Jose (Pulmozyme) 2.5 ml INH TIDR [facility] Stop: 08/22/18 14:59 Last Admin: 08/02/18 14:05 Dose: 2.5 ml Documented by: Fluoxetine HCl (Prozac) 10 mg GT DAILY [facility] Stop: 08/20/18 08:59 Last Admin: 08/02/18 08:08 Dose: 10 mg Documented by: Guaifenesin (Robitussin Sugar Free Syrup) 100 mg PO Q6 [facility] Stop: 08/19/18 17:59 Last Admin: 08/02/18 11:55 Dose: 100 mg Documented by: Imipenem/Cilastatin Sodium 250 (mg/ Dextrose) 110 mls @ 100 mls/hr IV Q6H [facility]; Protocol Stop: 08/09/18 23:59 Last Infusion: 08/02/18 13:00 Dose: Infused Documented by: Nitrofurantoin (Furadantin) 50 mg PO QAM [facility] Stop: 08/20/18 08:59 Last Admin: 08/02/18 08:07 Dose: 50 mg Documented by: Nutritional Formula (Prosource No Carb) 30 ml PO DAILY [facility] Stop: 08/25/18 13:59 Last Admin: 08/02/18 08:07 Dose: 30 ml Documented by: Ondansetron HCl (Zofran) 4 mg IV Q6H PRN PRN Reason: Nausea Stop: 08/19/18 13:14 Polyethylene Glycol (Miralax Powder Packet) 8.5 gm PEG DAILY PRN PRN Reason: bowel regiment Last Admin: 07/27/18 06:16 Dose: 8.5 gm Documented by: Sterile Water (Tube Feeding Water Flush) 120 ea GT UD [facility] Stop: 08/19/18 13:14 Last Admin: 07/23/18 18:14 Dose: 120 ea Documented by: Tobramycin Sulfate (Nebcin) 80 mg INH [id number] [facility] Stop: 08/20/18 07:59 Last Admin: 07/31/18 11:47 Dose: Not Given Documented by: Trazodone HCl (Desyrel) 50 mg GT HS [facility] Stop: 08/19/18 20:59 Last Admin: 08/01/18 21:16 Dose: 50 mg Documented by: Valproic Acid (Valproic Acid) 550 mg PO TID [facility] Stop: 08/20/18 08:59 Last Admin: 08/02/18 13:27 Dose: 550 mg Documented by: Zonisamide (Zonegran) 2 ea PO QAM [facility] Stop: 08/20/18 08:59 Last Admin: 08/02/18 08:07 Dose: 2 ea Documented by: Zonisamide (Zonegran) 1 ea PO QPM [facility] Stop: 08/19/18 20:59 Last Admin: 08/01/18 21:15 Dose: 1 ea Documented by: (1) Anemia Anemia type: unspecified type Qualified Code(s): D64.9 - Anemia, unspecified (2) Cerebral palsy Cerebral palsy type: unspecified type Qualified Code(s): G80.9 - Cerebral palsy, unspecified
[2018-08-02] MEDS: TOBRAMYCIN SULF 40 MG/ML 2 ML VIAL INH SCH ×2 (18:50→19:17)
--- NOTE | 2018-08-02 20:21 | XRay Report ---
XR chest 1V portable HISTORY: Difficulty breathing. COMPARISON: Chest 08/02/2018. FINDINGS: Tracheostomy tube is in good position. No pneumothorax. Progressive density within the left lung base. The right lung remains clear. Suspect a small left pleural effusion. IMPRESSION: Progressive left basilar airspace opacity and a small left pleural effusion. This favors a pneumonia. Electronically signed by: Edmund Dorman M.D. 08/02/2018 8:20 PM
[2018-08-02 20:44] LABS: iSTAT Allen Test Pass; iSTAT Arterial Blood Gas HCO3 24 meg/L (19-24); iSTAT Arterial Blood Gas pCO2 39 mmHg (35-46); iSTAT Arterial Blood Gas pH 7.39 (7.35-7.45); iSTAT Carbon Dioxide 25 mEq/l (24-31); iSTAT Site R Radial
[2018-08-02] MEDS ORDERED: TOBRAMYCIN INH SCH (20:57)
[2018-08-02] MEDS ORDERED: ACETYLCYSTEINE 10% INHAL SOLN **DISPENSED FROM RESP. INH SCH (21:00)
[2018-08-02] MEDS ORDERED: TRAZODONE HCL 50 MG TAB PEG SCH (21:00)
[2018-08-02] MEDS: ASCORBIC ACID 500 MG TAB PEG SCH (21:25)
[2018-08-02] MEDS: TRAZODONE HCL 50 MG TAB GT SCH (21:26)
[2018-08-03] MEDS: guaiFENesin SUGAR FREE 100 MG/5 ML UDC PO SCH ×5 (01:04→23:39)
[2018-08-03] MEDS: IMIPENEM/CILASTATIN SODIUM 250 MG in DEXTROSE 5% 100 ML IV SCH ×5 (01:04→23:39)
[2018-08-03 05:00] LABS: Basophils # (auto) 0.01 K/uL (0-0.2); Basophils % (auto) 0.1 %; Hematocrit (blood only) 38.8 % (37-47); Hemoglobin 13.8 g/dL (12.0-16.0); Immature Granulocytes # (auto) 0.07 K/uL (0.00-0.02); Immature Granulocytes % (auto) 0.4 %; Lymphocytes # (auto) 1.38 K/uL (1.2-3.4); Lymphocytes % (auto) 8.6 %; Mean Corpuscular Hgb Conc 35.6 g/dL (32-36); Mean Platelet Volume 8.2 fL (7.4-10.4); Monocytes # (auto) 1.43 K/uL (0.11-0.59); Monocytes % (auto) 8.9 %; Neutrophils # (auto) 13.21 K/uL (1.4-6.5); Platelet Count 214 K/uL (130-400); RDW Coefficient of Variation 12.8 % (11.5-14.5); RDW Standard Deviation 46.3 fL (36.4-46.3); Red Blood Count 3.84 M/uL (4.2-5.4)
[2018-08-03 05:20] LABS: Blood Urea Nitrogen 13 mg/dl (7-18); Calcium 9.5 mg/dl (8.5-10.1); Carbon Dioxide 26 mmol/L (21-32); Chloride 102 mmol/L (98-107); Creatinine Clr Calc Pharmacy 124.1 ml/min; Est GFR (African American) > 150.0; Est GFR (Non-African American) 140.2; Glucose 88 mg/dl (70-99); Potassium 4.1 mmol/L (3.5-5.1); Sodium 134 mmol/L (136-145)
[2018-08-03] MEDS: TUBE FEEDING WATER FLUSH PO SCH ×4 (05:28→19:47)
--- NOTE | 2018-08-03 06:58 | XRay Report ---
XR chest 1V portable HISTORY: 22 years-old Female Left effusion, atelectasis small left pleural effusion follow-up COMPARISON: Chest radiograph 08/02/2018 TECHNIQUE: Portable AP view of the chest FINDINGS: Stable positioning of the tracheostomy cannula. Small left pleural effusion has decreased in size fro m comparison. Persistent left perihilar and left lung base opacities. Bones appear grossly intact. IMPRESSION: 1. Small left pleural effusion has slightly decreased in size from comparison. 2. Persistent left perihilar and left lung base opacities suggestive of atelectasis or pneumonitis. The above report was generated using voice recognition software. It may contain grammatical, syntax o r spelling errors. Electronically signed by: Finn Townsend M.D. 08/03/2018 6:57 AM
[2018-08-03] MEDS ORDERED: FOOD SUPPLEMT LACTOSE REDUCED PO SCH (07:00)
[2018-08-03] MEDS: DORNASE ALFA 2.5 ML AMP INH SCH ×3 (07:06→19:36)
[2018-08-03] MEDS: ACETYLCYSTEINE 10% INHAL SOLN **DISPENSED FROM RESP. INH SCH ×2 (07:06→19:34)
[2018-08-03] MEDS: BUDESONIDE 0.5 MG/2 ML VIAL (PULMICORT) INH SCH ×2 (07:07→19:35)
[2018-08-03] MEDS: ALBUTEROL 0.083% NEBU SOLN 3 ML VIAL NEB SCH ×2 (07:07→19:35)
[2018-08-03] MEDS: LACTOBACILLUS ACIDOPHILUS 1 GM PACK PEG SCH ×3 (07:55→17:10)
[2018-08-03] MEDS ORDERED: LORazepam 0.5 MG/1 ML VIAL IV PRN (08:53)
[2018-08-03] MEDS ORDERED: LORazepam 2 MG/4 ML VIAL ONE (08:55)
[2018-08-03] MEDS: NITROFURANTOIN 25 MG/5 ML PO SCH (09:43)
[2018-08-03] MEDS: BACLOFEN 20 MG TAB PO SCH ×3 (09:44→20:10)
[2018-08-03] MEDS: PROSOURCE NO CARB 30 ML/PKT PO SCH (09:45)
[2018-08-03] MEDS: ASCORBIC ACID 500 MG TAB PEG SCH ×2 (09:46→20:09)
[2018-08-03] MEDS: VALPROIC ACID SOLN 500 MG/10 ML UDC PO SCH ×3 (09:48→20:09)
[2018-08-03] MEDS: CETIRIZINE HCL 10 MG TABLET PO SCH (09:49)
[2018-08-03] MEDS: ZONISAMIDE 100 MG PO SCH ×2 (09:49→20:08)
[2018-08-03] MEDS: FLUOXETINE HCL 20 MG/5 ML GT SCH (09:51)
--- NOTE | 2018-08-03 11:17 | Critical Care Progress Note ---
Date of Service August 03, 2018 Assessment & Plan (1) Aspiration pneumonia: Keep head of bed elevated (2) Bronchopneumonia due to Pseudomonas species: Continue imipenem and KANDY (3) Acute respiratory failure with hypoxemia: As discussed above home trilogy machine may well be the best option. Have spoken to case management and respiratory therapy and efforts are underway to obtain the machine. Ideally if we could obtain a trilogy machine and then determine optimal settings and train patient's mom use while still in the hospital that would likely be the best option. This will require significant effort on the part of case management respiratory therapy, nursing and grouter helper service. I do not see an imminent need for bronchoscopy at this time (4) Cerebral palsy: Continue chronic baclofen and splints Subjective 22-year-old female with severe cerebral palsy, bedbound nonverbal with contractures and chronic tracheostomy. She has multiple admissions for respiratory failure often due to mucous plugging. She was admitted this time on July 20 with severe left-sided atelectasis due to mucous plugging left mainstem bronchus and has undergone bronchoscopy 3 times this admission. Yesterday she was doing well today but last evening she decompensated again becoming markedly hypoxic and was transferred to ICU. She has copious secretions requiring frequent suctioning. Her hypoxia responded well to application of BiPAP via her tracheostomy and her chest x-ray shows only some subsegmental atelectasis left lower lobe suggesting the problem now is not so much large airway mucus plugging but more diffuse microatelectasis. Patient is chronically colonized with Pseudomonas and is currently on imipenem and KANDY for this. Review of her previous CT scan this admission shows that she does have some underlying central bronchiectasis. Her sales service coordinator is Dr. Matthew and Dr. Matthew and I have met with her mom in the ICU for quite a long time today. The patient has a twin sister who is equally handicapped and her mom takes care of them at home which is obviously a Herculean task and at times quite overwhelming.Dr. Matthew and I feel and her mom has now agreed that setting the patient up with home trilogy machine may be the best option. Review of Systems Review of Systems: Unobtainable due to reduced consciousness Physical Exam Physical Exam: Young female with tracheostomy currently on BiPAP with upper extremity contractures, currently she appears comfortably resting Eyes: PERRL, conjunctivae normal, anicteric sclerae ENMT: Tracheostomy in place site without inflammation Respiratory: Coarse breath sounds with scattered bilateral rhonchi no wheezing Cardiovascular: RRR, no murmur, no edema Gastrointestinal (Abdomen): Soft nontender normoactive bowel sounds PEG in place Musculoskeletal: Bilateral upper and lower extremity contractures Skin: No rash petechia or purpura Results & Data Vital Signs (Past 12 Hours) Vital Signs Pulse Pulse Resp BP Pulse Ox 08/03/18 10:04 132 H 42 H 96 08/03/18 08:58 103 H 28 H 90 08/03/18 08:09 126 H 36 H 93 08/03/18 06:00 102 H 28 H 104/71 96 08/03/18 05:00 117 H 41 H 105/73 95 08/03/18 04:13 119 H 29 H 93/67 L 97 08/03/18 03:00 99 H 30 H 102/58 L 98 08/03/18 02:30 108 H 28 H 117/79 97 08/03/18 02:00 112 H 31 H 97 08/03/18 01:31 117 H 33 H 117/78 94 08/03/18 01:16 117 H 21 109/77 98 08/03/18 01:00 119 H 33 H 95/69 L 93 08/03/18 00:46 111 H 30 H 112/74 97 08/03/18 00:01 119 H 38 H 102/64 95 08/03/18 00:00 118 H 28 H 97 08/02/18 23:48 118 H 43 H 93 08/02/18 23:34 123 H 40 H 98/66 L 93 08/02/18 23:17 112 H 39 H 106/55 L 91 08/02/18 23:15 121 H 28 H 91 Critical Care Time Critical Care Time: Yes Total Critical Care Time: 60 (1) Cerebral palsy Cerebral palsy type: unspecified type Qualified Code(s): G80.9 - Cerebral palsy, unspecified
--- NOTE | 2018-08-03 15:30 | Hospitalist Progress Note ---
Date of Service August 03, 2018 Assessment & Plan (1) Acute respiratory failure with hypoxia and hypercapnia: 2nd to extensive LLL pneumonia and collapse. s/p multiple bronchoscopies while in ICU with removal of left-sided mucous plugs earlier this stay. last 2 bronchs were relatively normal. Had been weaned to trach collar, several nights ago had worsening O2 requirement. Placed on vapotherm HFNC via trach. was stable until the evening of 08/02, became more hypoxic, had to be transferred to ICU CXR with worsening left lower lobe infiltrate, increased effusion saturations responded quickly to CPAP via tracheostomy discussed with Dr. Matthew and herb doctor, will start process to get Trilogy at home discussed with patient's mother today, will not discharge until Trilogy set up here and she and home RN are comfortable patient would be high risk for readmission without proper training (2) Bronchopneumonia due to Pseudomonas species: LLL. today is day #15 of Primaxin, she has not had a fever but WBC did jump to 16k All cultures to date with pseudomonas. Has had such in the past suggesting colonization from this pathogen. ID consult completed - 14-day course of imipenem recommended will continue due to worsening clinical status Wean O2 as tolerated CXR on 08/03 with increased left lower lobe infiltrate (3) Cerebral palsy: nonambulatory, nonverbal at baseline. trach/PEG. seizure disorder. continue all home chronic meds. (4) Thrombocytopenia: resolved. was likely due to infection. B12/folate were normal. (5) Anemia: Prior b12, folate levels normal. Iron studies normal. TSH minimally elevated; doubt it is playing any role. likely anemia chronic disease. CBC stable. (6) Pleural effusion, left: small, parapneumonic. (7) Seizure disorder: cont home meds. no apparent seizures while here. (8) Status post insertion of percutaneous endoscopic gastrostomy (PEG) tube: cont home feeding regimen tolerating well stooling well (9) DVT prophylaxis: SCDs discussed with patient's mother today keep in ICU, plan to arrange for Trilogy prior to discharge Subjective patient transferred to ICU last evening around 8pm on CXR she had further atelectasis of her left lower lobe with increased distress and tachypnea this morning per pulmonary, placed on CPAP with cuff inflated and patient did much better FiO2 went from 80% to 50% with just 8 of P[address] discussed with Dr. Matthew, ICU staff, will work on getting patient Trilogy to use at home updated patient's mother at the bedside she plans to get her home nurses trained with the Trilogy reviewed CXR personally reviewed labs, WBC jumpted to 16k despite still being on Primaxin BMP normal Review of Systems Review of Systems: Unobtainable due to cognitive status and Unobtainable due to endotracheal tube Physical Exam Constitutional: well developed, + thin, + physical limitations and + frail appearing; not in distress Eyes: PERRL, conjunctivae normal, anicteric sclerae ENMT: external ear and nose normal, oropharynx normal Neck: trachea midline, no thyromegaly (trach collar in place) Respiratory: + labored breathing (at times); no respiratory distress Auscultation: + diminished lung sounds (left base) and + rhonchi (left side); no wheezes Cardiovascular: Rate/Rhythm: regular rhythm and + tachycardic Heart Sounds: normal S1 and normal S2; no murmur Vessels: no JVD Extremities: no edema Gastrointestinal (Abdomen): normal bowel sounds, soft, nontender, no hepatosplenomegaly (PEG in place) Musculoskeletal: Head/Neck/Chest: normocephalic and head atraumatic Extremities: + abnormal muscle tone and + muscle atrophy; + extremities abnormal to inspection (contractures), no cyanosis and no clubbing Skin: no rashes, warm and dry Neurologic: awake; + does not move all extremities and no focal motor deficits Speech / Cognition: + abnormal speech (non verbal) Motor/Sensory: + abnormal movement Psychiatric: Orientation: alert and cooperative; + not oriented to person, + not oriented to place and + not oriented to time Lymphatic: no cervical or axillary lymphadenopathy Results & Data Vital Signs (Past 12 Hours) Vital Signs Temp Pulse Pulse Resp BP Pulse Ox 08/03/18 14:38 116 H 116 H 39 H 99 08/03/18 11:29 120 H 42 H 92 08/03/18 11:00 120 H 43 H 101/62 91 08/03/18 10:04 132 H 42 H 96 08/03/18 10:00 126 H 40 H 124/66 100 08/03/18 09:01 127 H 34 H 92/60 L 86 L 08/03/18 08:58 103 H 28 H 90 08/03/18 08:09 126 H 36 H 93 08/03/18 08:01 36.8 C 144 H 28 H 130/82 92 08/03/18 08:00 104 H 08/03/18 07:01 106 H 43 H 95/65 L 91 08/03/18 06:00 102 H 28 H 104/71 96 08/03/18 05:00 117 H 41 H 105/73 95 08/03/18 04:13 119 H 29 H 93/67 L 97 Laboratory Results Laboratory Results - last 24 hr 08/02/18 08/02/18 08/03/18 20:27 21:00 01:03 WBC RBC Hgb Hct MCV MCH MCHC RDW Std Deviation RDW Coeff of Flaquito Plt Count MPV Immature Gran % (Auto) Neut % (Auto) Lymph % (Auto) Bennett % (Auto) Eos % (Auto) Baso % (Auto) Immature Gran # (Auto) Neut # (Auto) Lymph # (Auto) Bennett # (Auto) Eos # (Auto) Baso # (Auto) Sample Site R Radial POC pH 7.39 POC pCO2 39 POC pO2 58 L POC HCO3 24 POC Total CO2 25 POC Base Excess -1.0 POC ABG O2 Sat 90.0 Seth Test Pass O2 Delivery Device Cannula Sodium Potassium Chloride Carbon Dioxide Anion Gap BUN Creatinine Est Cr Clr Drug Dosing Est GFR ( Amer) Est GFR (Non-Af Amer) BUN/Creatinine Ratio Glucose POC Glucose 89 Calcium Nasal Screen MRSA (PCR) Negative 08/03/18 08/03/18 04:41 04:41 WBC 16.10 H RBC 3.84 L Hgb 13.8 Hct 38.8 MCV 101.0 H MCH 35.9 H MCHC 35.6 RDW Std Deviation 46.3 RDW Coeff of Flaquito 12.8 Plt Count 214 MPV 8.2 Immature Gran % (Auto) 0.4 Neut % (Auto) 82.0 Lymph % (Auto) 8.6 Bennett % (Auto) 8.9 Eos % (Auto) 0.0 Baso % (Auto) 0.1 Immature Gran # (Auto) 0.07 H Neut # (Auto) 13.21 H Lymph # (Auto) 1.38 Bennett # (Auto) 1.43 H Eos # (Auto) 0.00 Baso # (Auto) 0.01 Sample Site POC pH POC pCO2 POC pO2 POC HCO3 POC Total CO2 POC Base Excess POC ABG O2 Sat Seth Test O2 Delivery Device Sodium 134 L Potassium 4.1 Chloride 102 Carbon Dioxide 26 Anion Gap 6.0 BUN 13 Creatinine 0.48 L Est Cr Clr Drug Dosing 124.1 Est GFR ( Amer) > 150.0 Est GFR (Non-Af Amer) 140.2 BUN/Creatinine Ratio 27.0 H Glucose 88 POC Glucose Calcium 9.5 Nasal Screen MRSA (PCR) Diagnostic Findings XR chest 1V portable HISTORY: 22 years-old Female Left effusion, atelectasis small left pleural effusion follow-up COMPARISON: Chest radiograph 08/02/2018 TECHNIQUE: Portable AP view of the chest FINDINGS: Stable positioning of the tracheostomy cannula. Small left pleural effusion has decreased in size from comparison. Persistent left perihilar and left lung base opacities. Bones appear grossly intact. IMPRESSION: 1. Small left pleural effusion has slightly decreased in size from comparison. 2. Persistent left perihilar and left lung base opacities suggestive of atelectasis or pneumonitis. Medications Administered Current Inpatient Medications Acetaminophen (Tylenol) 650 mg PEG Q4H PRN PRN Reason: Pain or Fever Stop: 08/21/18 21:21 Last Admin: 07/29/18 06:21 Dose: 650 mg Documented by: Acetylcysteine (Mucomyst 10%) 3 ml INH BIDR [facility] Stop: 08/21/18 20:59 Last Admin: 08/03/18 07:06 Dose: 3 ml Documented by: Albuterol (Ventolin 0.083% 2.5mg/3ml) 2.5 mg INH Q4H PRN PRN Reason: Wheezing/ shortness of breath Stop: 08/19/18 13:14 Last Admin: 07/23/18 19:47 Dose: 2.5 mg Documented by: Albuterol (Ventolin 0.083% 2.5mg/3ml) 2.5 mg NEB BIDR [facility] Stop: 08/23/18 19:59 Last Admin: 08/03/18 07:07 Dose: 2.5 mg Documented by: Ascorbic Acid (Vitamin C) 500 mg PEG BID [facility] Stop: 09/01/18 20:59 Last Admin: 08/03/18 09:46 Dose: 500 mg Documented by: Baclofen (Lioresal) 20 mg PO TID [facility] Stop: 08/19/18 13:59 Last Admin: 08/03/18 14:54 Dose: 20 mg Documented by: Budesonide (Pulmicort Respules) 0.5 mg INH BIDR [facility] Stop: 08/23/18 19:59 Last Admin: 08/03/18 07:07 Dose: 0.5 mg Documented by: Cetirizine HCl (Zyrtec) 10 mg PO DAILY [facility] Stop: 08/20/18 08:59 Last Admin: 08/03/18 09:49 Dose: 10 mg Documented by: Clonazepam (Klonopin) 0.5 mg PO DAILY PRN PRN Reason: prolonged seizures Stop: 08/19/18 13:44 Last Admin: 07/22/18 18:23 Dose: 0.5 mg Documented by: Dornase Jose (Pulmozyme) 2.5 ml INH TIDR [facility] Stop: 08/22/18 14:59 Last Admin: 08/03/18 14:18 Dose: 2.5 ml Documented by: Fluoxetine HCl (Prozac) 10 mg GT DAILY [facility] Stop: 08/20/18 08:59 Last Admin: 08/03/18 09:51 Dose: 10 mg Documented by: Guaifenesin (Robitussin Sugar Free Syrup) 100 mg PO Q6 [facility] Stop: 08/19/18 17:59 Last Admin: 08/03/18 12:26 Dose: 100 mg Documented by: Imipenem/Cilastatin Sodium 250 (mg/ Dextrose) 110 mls @ 100 mls/hr IV Q6H [facility]; Protocol Stop: 08/09/18 23:59 Last Infusion: 08/03/18 13:30 Dose: Infused Documented by: Lorazepam (Ativan) 0.5 mg in 1 mls @ 1 mls/min IV Q4H PRN PRN Reason: Agitation Stop: 09/02/18 08:52 Last Admin: 08/03/18 09:02 Dose: 1 mls/min Documented by: Lactobacillus Acidophilus (Floranex Granules/Powder Packet) 1 gm PEG TIDM [facility] Stop: 09/02/18 07:59 Last Admin: 08/03/18 12:26 Dose: 1 gm Documented by: Nitrofurantoin (Furadantin) 50 mg PO QAM [facility] Stop: 08/20/18 08:59 Last Admin: 08/03/18 09:43 Dose: 50 mg Documented by: Nutritional Formula (Prosource No Carb) 30 ml PO DAILY [facility] Stop: 08/25/18 13:59 Last Admin: 08/03/18 09:45 Dose: 30 ml Documented by: Ondansetron HCl (Zofran) 4 mg IV Q6H PRN PRN Reason: Nausea Stop: 08/19/18 13:14 Polyethylene Glycol (Miralax Powder Packet) 8.5 gm PEG DAILY PRN PRN Reason: bowel regiment Last Admin: 07/27/18 06:16 Dose: 8.5 gm Documented by: Sterile Water (Tube Feeding Water Flush) 120 ea PO QID@07,1130,15,19 [facility] Stop: 09/02/18 06:59 Last Admin: 08/03/18 14:54 Dose: 120 ea Documented by: Tobramycin Sulfate (Nebcin) 80 mg INH MoWeFr@0800,1700 [facility] Stop: 08/20/18 07:59 Last Admin: 08/02/18 19:17 Dose: Not Given Documented by: Trazodone HCl (Desyrel) 50 mg GT HS [facility] Stop: 08/19/18 20:59 Last Admin: 08/02/18 21:26 Dose: 50 mg Documented by: Valproic Acid (Valproic Acid) 550 mg PO TID [facility] Stop: 08/20/18 08:59 Last Admin: 08/03/18 14:54 Dose: 550 mg Documented by: Zonisamide (Zonegran) 2 ea PO QAM [facility] Stop: 08/20/18 08:59 Last Admin: 08/03/18 09:49 Dose: 2 ea Documented by: Zonisamide (Zonegran) 1 ea PO QPM [facility] Stop: 08/19/18 20:59 Last Admin: 08/02/18 21:27 Dose: 1 ea Documented by: (1) Anemia Anemia type: unspecified type Qualified Code(s): D64.9 - Anemia, unspecified (2) Cerebral palsy Cerebral palsy type: unspecified type Qualified Code(s): G80.9 - Cerebral palsy, unspecified
[2018-08-03] MEDS: POLYETHYLENE (MIRALAX) 17 GM PACK PEG PRN (17:11)
[2018-08-03] MEDS: TRAZODONE HCL 50 MG TAB GT SCH (20:10)
[2018-08-04] MEDS: IMIPENEM/CILASTATIN SODIUM 250 MG in DEXTROSE 5% 100 ML IV SCH ×4 (06:12→23:59)
[2018-08-04] MEDS: guaiFENesin SUGAR FREE 100 MG/5 ML UDC PO SCH ×4 (06:12→23:58)
[2018-08-04] MEDS: TUBE FEEDING WATER FLUSH PO SCH ×4 (06:46→18:43)
[2018-08-04] MEDS: ACETYLCYSTEINE 10% INHAL SOLN **DISPENSED FROM RESP. INH SCH ×2 (07:18→18:56)
[2018-08-04] MEDS: DORNASE ALFA 2.5 ML AMP INH SCH ×3 (07:18→19:01)
[2018-08-04] MEDS: ALBUTEROL 0.083% NEBU SOLN 3 ML VIAL NEB SCH ×2 (07:19→18:57)
[2018-08-04] MEDS: BUDESONIDE 0.5 MG/2 ML VIAL (PULMICORT) INH SCH ×2 (07:19→18:57)
[2018-08-04] MEDS: ASCORBIC ACID 500 MG TAB PEG SCH ×2 (07:57→20:59)
[2018-08-04] MEDS: PROSOURCE NO CARB 30 ML/PKT PO SCH (07:57)
[2018-08-04] MEDS: CETIRIZINE HCL 10 MG TABLET PO SCH (07:58)
[2018-08-04] MEDS: LACTOBACILLUS ACIDOPHILUS 1 GM PACK PEG SCH ×3 (07:58→17:58)
[2018-08-04] MEDS: FLUOXETINE HCL 20 MG/5 ML GT SCH (07:58)
[2018-08-04] MEDS: BACLOFEN 20 MG TAB PO SCH ×3 (07:58→20:59)
[2018-08-04] MEDS: VALPROIC ACID SOLN 500 MG/10 ML UDC PO SCH ×3 (07:58→21:01)
[2018-08-04] MEDS: NITROFURANTOIN 25 MG/5 ML PO SCH (07:58)
[2018-08-04] MEDS: ZONISAMIDE 100 MG PO SCH ×2 (07:59→21:01)
[2018-08-04] MEDS: TOBRAMYCIN SULF 40 MG/ML 2 ML VIAL INH SCH ×2 (08:00→18:59)
[2018-08-04 09:52] LABS: Basophils # (auto) 0.01 K/uL (0-0.2); Basophils % (auto) 0.2 %; Eosinophils # (auto) 0.01 K/uL (0-0.5); Eosinophils % (auto) 0.2 %; Hematocrit (blood only) 34.3 % (37-47); Hemoglobin 11.6 g/dL (12.0-16.0); Immature Granulocytes # (auto) 0.01 K/uL (0.00-0.02); Immature Granulocytes % (auto) 0.2 %; Lymphocytes # (auto) 0.59 K/uL (1.2-3.4); Lymphocytes % (auto) 10.5 %; Mean Corpuscular Hgb Conc 33.8 g/dL (32-36); Mean Corpuscular Volume 101.2 fL (80-100); Mean Platelet Volume 8.5 fL (7.4-10.4); Monocytes # (auto) 0.82 K/uL (0.11-0.59); Monocytes % (auto) 14.6 %; Neutrophils # (auto) 4.17 K/uL (1.4-6.5); Neutrophils % (auto) 74.3 %; Platelet Count 173 K/uL (130-400); RDW Coefficient of Variation 12.7 % (11.5-14.5); Red Blood Count 3.39 M/uL (4.2-5.4); White Blood Count 5.61 K/uL (4.8-10.8)
--- NOTE | 2018-08-04 10:12 | Critical Care Progress Note ---
Date of Service August 04, 2018 Assessment & Plan (1) Aspiration pneumonia: Keep head of bed elevated (2) Bronchopneumonia due to Pseudomonas species: Continue imipenem and KANDY. (3) Acute respiratory failure with hypoxemia: As discussed above home trilogy machine may well be the best option. Have spoken to case management and respiratory therapy and efforts are underway to obtain the machine. Ideally if we could obtain a trilogy machine and then determine optimal settings and train patient's mom use while still in the hospital that would likely be the best option. Continue mucolytic's and bronchodilators (4) Cerebral palsy: Continue chronic baclofen and splints. Subjective 22-year-old female with severe cerebral palsy, bedbound nonverbal with contractures and chronic tracheostomy. She has multiple admissions for respiratory failure often due to mucous plugging. She was admitted this time on July 20 with severe left-sided atelectasis due to mucous plugging left mainstem bronchus and has undergone bronchoscopy 3 times this admission. Yesterday she was doing well today but last evening she decompensated again becoming markedly hypoxic and was transferred to ICU. She has copious secretions requiring frequent suctioning. Her hypoxia responded well to application of BiPAP via her tracheostomy and her chest x-ray shows only some subsegmental atelectasis left lower lobe suggesting the problem now is not so much large airway mucus plugging but more diffuse microatelectasis. Patient is chronically colonized with Pseudomonas and is currently on imipenem and KANDY for this. Review of her previous CT scan this admission shows that she does have some underlying central bronchiectasis. Her senior microstrategy developer is Dr. Matthew and Dr. Matthew and I have met with her mom in the ICU for quite a long time on 08/04. The patient has a twin sister who is equally handicapped and her mom takes care of them at home which is obviously a Herculean task and at times quite overwhelming.Dr. Matthew and I feel and her mom has now agreed that setting the patient up with home trilogy machine may be the best option. 08/04: Patient had an uneventful night on positive pressure ventilation via tracheostomy. She is currently utilizing CPAP of 8. She was on BiPAP yesterday. I think she is going to require home ventilator support long-term as she is very prone to both micro-and macro atelectasis with resultant hypoxemic respiratory failure. She has demonstrated multiple times that she is prone to recurrent mucous plugging requiring bronchoscopy. She is very frequently unable to maintain her work of breathing and has had acute hypercarbia on this admission as well as persistent hypoxemia. I think that she would benefit from a home ventilator that is able to deliver a volume targeted mode when needed such as a trilogy machine which would be expected to improve her pulmonary status, slow down the decline in her pulmonary status and hopefully reduce the number of recurrent lengthy hospitalizations. Review of Systems Review of Systems: Unobtainable due to reduced consciousness Physical Exam Physical Exam: General: Chronically ill-appearing, short stature, nonverbal, currently appears in no acute distress Head: Normocephalic atraumatic Eyes: Yuliana EOMI sclera anicteric Oropharynx: Moist mucous membranes fair to good dentition Neck: Supple, no meningismus, trach in place, cuff inflated, trach site without inflammation Chest: Scattered bilateral rhonchi, no wheezing, no accessory muscle use, breath sounds somewhat diminished left base Cardiac: Regular rhythm no murmurs rubs or gallops Abdomen: Soft, scaphoid, nontender, normoactive bowel sounds, PEG in place Skin. No rash petechia or purpura Extremities: Bilateral upper and lower extremity contractures Results & Data Vital Signs (Past 12 Hours) Vital Signs Pulse Pulse Resp BP Pulse Ox 08/04/18 07:28 26 H 08/04/18 07:22 104 H 26 H 95 08/04/18 06:00 90 27 H 106/70 99 08/04/18 05:00 84 30 H 95/66 L 98 08/04/18 04:01 93 H 21 97 08/04/18 04:00 95 H 24 113/78 97 08/04/18 03:55 100 H 17 98 08/04/18 03:01 94 H 27 H 95 08/04/18 03:00 96 H 27 H 103/73 95 08/04/18 02:00 82 26 H 103/69 96 08/04/18 01:01 94 H 29 H 95 08/04/18 01:00 92 H 29 H 101/67 95 08/04/18 00:01 96 H 31 H 96 08/04/18 00:00 94 H 28 H 105/66 96 08/03/18 23:25 92 H 18 97 08/03/18 23:01 94 H 26 H 97 06/11/19 23:00 92 H 29 H 93/64 L 98 Laboratory Results 08/04/18 Range/Units 08:59 WBC 5.61 (4.8-10.8) K/uL RBC 3.39 L (4.2-5.4) M/uL Hgb 11.6 L (12.0-16.0) g/dL Hct 34.3 L (37-47) % MCV 101.2 H (80-100) fL MCH 34.2 H (25-34) pg MCHC 33.8 (32-36) g/dL RDW Std Deviation 46.0 (36.4-46.3) fL RDW Coeff of Flaquito 12.7 (11.5-14.5) % Plt Count 173 (130-400) K/uL MPV 8.5 (7.4-10.4) fL Immature Gran % (Auto) 0.2 % Neut % (Auto) 74.3 % Lymph % (Auto) 10.5 % [place] % (Auto) 14.6 % Eos % (Auto) 0.2 % Baso % (Auto) 0.2 % Immature Gran # (Auto) 0.01 (0.00-0.02) K/uL Neut # (Auto) 4.17 (1.4-6.5) K/uL Lymph # (Auto) 0.59 L (1.2-3.4) K/uL [place] # (Auto) 0.82 H (0.11-0.59) K/uL Eos # (Auto) 0.01 (0-0.5) K/uL Baso # (Auto) 0.01 (0-0.2) K/uL Medications Administered Home Medications Medication Instructions Recorded Confirmed Last Taken Lactobacillus acidophilus 4 tab FEEDING TUBE TIDM 07/20/18 07/20/18 Unknown acetylcysteine 07/20/18 Unknown acetylcysteine 3 ml INHALATION BID 07/20/18 07/20/18 Unknown albuterol sulfate 2.5 mg INHALATION Q4H PRN 07/20/18 07/20/18 07/19/18 ascorbic acid (vitamin C) [Vitamin 500 mg FEEDING TUBE BID 07/20/18 07/20/18 Unknown C] baclofen 20 mg FEEDING TUBE TID 07/20/18 07/20/18 07/20/18 budesonide 2 ml INHALATION BID 07/20/18 07/20/18 07/19/18 cetirizine 10 mg FEEDING TUBE DAILY 07/20/18 07/20/18 07/20/18 clonazepam 0.5 mg FEEDING TUBE DIRECTED 07/20/18 07/20/18 02/23/18 fluoxetine 10 mg FEEDING TUBE DAILY 07/20/18 07/20/18 07/19/18 glycopyrrolate 0.5 mg FEEDING TUBE BID 07/20/18 07/20/18 Unknown guaifenesin 100 mg PO Q6H 07/20/18 07/20/18 Unknown nitrofurantoin 50 mg FEEDING TUBE DAILY 07/20/18 07/20/18 07/20/18 polyethylene glycol 3350 8.5 g FEEDING TUBE DAILY PRN 07/20/18 07/20/18 07/19/18 tobramycin 4 cap INHALATION Q12H 07/20/18 07/20/18 07/19/18 trazodone 50 mg FEEDING TUBE HS 07/20/18 07/20/18 07/19/18 valproic acid (as sodium salt) 550 mg FEEDING TUBE TID 07/20/18 07/21/18 07/20/18 zonisamide 100 mg FEEDING TUBE HS 07/20/18 07/20/18 07/19/18 zonisamide 200 mg FEEDING TUBE QAM 07/20/18 07/20/18 07/20/18 food supplemt, lactose-reduced 1.5 ea PO QID@07,1130,,07/28/18 07/28/18 Unknown [Boost] water 120 ea PO QID@07,1130,,07/28/18 07/28/18 Unknown Active Medications Generic Name Dose Route Start Last Admin Trade Name Freq PRN Reason Stop Dose Admin Acetaminophen 650 mg 07/22/18 21:22 07/29/18 06:21 Tylenol PEG 08/21/18 21:21 650 mg Q4H PRN Administration Pain or Fever Acetylcysteine 3 ml 07/23/18 08:00 08/04/18 07:18 Mucomyst 10% INH 08/21/18 20:59 3 ml BIDR KENNEDY Administration Albuterol 2.5 mg 07/20/18 13:15 07/23/18 19:47 Ventolin 0.083% 2.5mg/3ml INH 08/19/18 13:14 2.5 mg Q4H PRN Administration Wheezing/ shortness of breath Albuterol 2.5 mg 07/24/18 20:00 08/04/18 07:19 Ventolin 0.083% 2.5mg/3ml NEB 08/23/18 19:59 2.5 mg BIDR KENNEDY Administration Ascorbic Acid 500 mg 08/02/18 21:00 08/04/18 07:57 Vitamin C PEG 09/01/18 20:59 500 mg BID KENNEDY Administration Baclofen 20 mg 07/20/18 14:00 08/04/18 07:58 Lioresal PO 08/19/18 13:59 20 mg TID KENNEDY Administration Budesonide 0.5 mg 07/24/18 20:00 08/04/18 07:19 Pulmicort Respules INH 08/23/18 19:59 0.5 mg BIDR KENNEDY Administration Cetirizine HCl 10 mg 07/21/18 09:00 08/04/18 07:58 Zyrtec PO 08/20/18 08:59 10 mg DAILY KENNEDY Administration Clonazepam 0.5 mg 07/20/18 13:45 07/22/18 18:23 Klonopin PO 08/19/18 13:44 0.5 mg DAILY PRN Administration prolonged seizures Dornase Jose 2.5 ml 07/23/18 15:00 08/04/18 07:18 Pulmozyme INH 08/22/18 14:59 2.5 ml TIDR KENNEDY Administration Fluoxetine HCl 10 mg 07/21/18 09:00 08/04/18 07:58 Prozac GT 08/20/18 08:59 10 mg DAILY KENNEDY Administration Guaifenesin 100 mg 07/20/18 18:00 08/04/18 06:12 Robitussin Sugar Free Syrup PO 08/19/18 17:59 100 mg Q6 KENNEDY Administration Imipenem/Cilastatin Sodium 250 110 mls @ 100 mls/hr 07/26/18 12:15 08/04/18 07:50 mg/ Dextrose IV 08/09/18 23:59 Infused Q6H KENENDY Infusion Protocol Lorazepam 0.5 mg in 1 mls @ 1 mls/min 08/03/18 08:53 08/03/18 09:02 Ativan IV 09/02/18 08:52 1 mls/min Q4H PRN Administration Agitation Lactobacillus Acidophilus 1 gm 08/03/18 08:00 08/04/18 07:58 Floranex Granules/Powder Packet PEG 09/02/18 07:59 1 gm TIDM KENNEDY Administration Nitrofurantoin 50 mg 07/21/18 09:00 08/04/18 07:58 Furadantin PO 08/20/18 08:59 50 mg QAM KENNEDY Administration Nutritional Formula 30 ml 07/26/18 14:00 08/04/18 07:57 Prosource No Carb PO 08/25/18 13:59 30 ml DAILY KENNEDY Administration Polyethylene Glycol 8.5 gm 07/20/18 13:15 08/03/18 17:11 Miralax Powder Packet PEG 8.5 gm DAILY PRN Administration bowel regiment Sterile Water 120 ea 08/03/18 07:00 08/04/18 06:46 Tube Feeding Water Flush PO 09/02/18 06:59 120 ea QID@07,1130,15,19 KENNEDY Administration Tobramycin Sulfate 80 mg 07/21/18 08:00 08/02/18 19:17 Nebcin INH 08/20/18 07:59 Not Given MoWeFr@0800,1700 KENNEDY Trazodone HCl 50 mg 07/20/18 21:00 08/03/18 20:10 Desyrel GT 08/19/18 20:59 50 mg HS KENNEDY Administration Valproic Acid 550 mg 07/21/18 09:00 08/04/18 07:58 Valproic Acid PO 08/20/18 08:59 550 mg TID KENNEDY Administration Zonisamide 2 ea 07/21/18 09:00 08/04/18 07:59 Zonegran PO 08/20/18 08:59 2 ea QAM KENNEDY Administration Zonisamide 1 ea 07/20/18 21:00 08/03/18 20:08 Zonegran PO 08/19/18 20:59 1 ea QPM KENNEDY Administration Critical Care Time Critical Care Time: Yes Total Critical Care Time: 40 (1) Cerebral palsy Cerebral palsy type: unspecified type Qualified Code(s): G80.9 - Cerebral palsy, unspecified
[2018-08-04] MEDS: NUTRITIONAL SUPPLEMENT PEG SCH ×2 (14:57→18:43)
[2018-08-04] MEDS: [UNRECOGNIZED DRUG - OTHER] PEG SCH ×2 (14:57→18:43)
--- NOTE | 2018-08-04 15:38 | Hospitalist Progress Note ---
Date of Service August 04, 2018 Assessment & Plan (1) Acute respiratory failure with hypoxia and hypercapnia: 2nd to extensive LLL pneumonia and collapse. s/p multiple bronchoscopies while in ICU with removal of left-sided mucous plugs earlier this stay. last 2 bronchs were relatively normal, they were over a week ago Had been weaned to trach collar, several nights ago had worsening O2 requirement. Placed on vapotherm HFNC via trach. was stable until the evening of 08/02, became more hypoxic, had to be transferred to ICU CXR with worsening left lower lobe infiltrate, increased effusion saturations responded quickly to CPAP via tracheostomy discussed with Dr. Matthew and commuter pilot, will start process to get Trilogy at home discussed with patient's mother today, will not discharge until Trilogy set up here and she and home RN are comfortable patient would be high risk for readmission without proper training continue with Albuterol nebs, Mucomyst Nebs, Pulmozyme nebs TID will continue these at home, the Pulmozyme nebs will be new currently patient stable on PEEP 8 and FiO2 weaned down to 30% (2) Bronchopneumonia due to Pseudomonas species: LLL. today is day #16 of Primaxin, she has not had a fever, WBC down to normal again today All cultures to date with pseudomonas. Has had such in the past suggesting colonization from this pathogen. ID consult completed - 14-day course of imipenem recommended will continue due to decline in status and return to ICU Wean O2 as tolerated CXR on 08/03 with increased left lower lobe infiltrate (3) Cerebral palsy: nonambulatory, nonverbal at baseline. trach/PEG. seizure disorder. continue all home chronic meds. (4) Thrombocytopenia: resolved. was likely due to infection. B12/folate were normal. (5) Anemia: Prior b12, folate levels normal. Iron studies normal. TSH minimally elevated; doubt it is playing any role. likely anemia chronic disease. CBC stable. (6) Pleural effusion, left: small, parapneumonic. (7) Seizure disorder: cont home meds. no apparent seizures while here. (8) Status post insertion of percutaneous endoscopic gastrostomy (PEG) tube: cont home feeding regimen tolerating well stooling well (9) DVT prophylaxis: SCDs discussed with patient's mother today keep in ICU, plan to arrange for Trilogy prior to discharge Subjective met with patient's mother at the bedside discussed that she is meeting digital media representative from [employer] tomorrow will discuss vent and settings and home set up mother is nervous about going home, wants to see how patient is doing on Trilogy prior to discharge reviewed labs, WBC back to normal patient doing well on CPAP, on only 30% FiO2 and 8 PEEP getting percussion therapy and getting Duoneb, Mucomyst and Pulmozyme nebs Review of Systems Review of Systems: Unobtainable due to cognitive status Physical Exam Constitutional: well developed, + thin, + physical limitations and + frail appearing; not in distress Eyes: PERRL, conjunctivae normal, anicteric sclerae ENMT: external ear and nose normal, oropharynx normal Neck: trachea midline, no thyromegaly (trach collar in place) Respiratory: normal respiratory effort Auscultation: + diminished lung manjula nds (left base) and + rhonchi (left side); no wheezes Cardiovascular: Rate/Rhythm: regular rhythm and + tachycardic Heart Sounds: normal S1 and normal S2; no murmur Vessels: no JVD Extremities: no edema Gastrointestinal (Abdomen): normal bowel sounds, soft, nontender, no hepatosplenomegaly (PEG in place) Musculoskeletal: Head/Neck/Chest: normocephalic and head atraumatic Extremities: + abnormal muscle tone and + muscle atrophy; + extremities abnormal to inspection (contractures), no cyanosis and no clubbing Skin: no rashes, warm and dry Neurologic: awake; + does not move all extremities and no focal motor deficits Speech / Cognition: + abnormal speech (non verbal) Motor/Sensory: + abnormal movement Psychiatric: Orientation: alert and cooperative; + not oriented to person, + not oriented to place and + not oriented to time Lymphatic: no cervical or axillary lymphadenopathy Results & Data Vital Signs (Past 12 Hours) Vital Signs Pulse Pulse Resp BP Pulse Ox 08/04/18 14:11 109 H 109 H 26 H 92 08/04/18 11:33 100 H 26 H 95 08/04/18 07:28 26 H 08/04/18 07:22 104 H 26 H 95 08/04/18 06:00 90 27 H 106/70 99 08/04/18 05:00 84 30 H 95/66 L 98 08/04/18 04:01 93 H 21 97 08/04/18 04:00 95 H 24 113/78 97 08/04/18 03:55 100 H 17 98 Laboratory Results Laboratory Results - last 24 hr 08/04/18 08:59 WBC 5.61 RBC 3.39 L Hgb 11.6 L Hct 34.3 L MCV 101.2 H MCH 34.2 H MCHC 33.8 RDW Std Deviation 46.0 RDW Coeff of Flaquito 12.7 Plt Count 173 MPV 8.5 Immature Gran % (Auto) 0.2 Neut % (Auto) 74.3 Lymph % (Auto) 10.5 Charles % (Auto) 14.6 Eos % (Auto) 0.2 Baso % (Auto) 0.2 Immature Gran # (Auto) 0.01 Neut # (Auto) 4.17 Lymph # (Auto) 0.59 L Charles # (Auto) 0.82 H Eos # (Auto) 0.01 Baso # (Auto) 0.01 Medications Administered Current Inpatient Medications Acetaminophen (Tylenol) 650 mg PEG Q4H PRN PRN Reason: Pain or Fever Stop: 08/21/18 21:21 Last Admin: 07/29/18 06:21 Dose: 650 mg Documented by: Acetylcysteine (Mucomyst 10%) 3 ml INH BIDR [facility] Stop: 08/21/18 20:59 Last Admin: 08/04/18 07:18 Dose: 3 ml Documented by: Albuterol (Ventolin 0.083% 2.5mg/3ml) 2.5 mg INH Q4H PRN PRN Reason: Wheezing/ shortness of breath Stop: 08/19/18 13:14 Last Admin: 07/23/18 19:47 Dose: 2.5 mg Documented by: Albuterol (Ventolin 0.083% 2.5mg/3ml) 2.5 mg NEB BIDR [facility] Stop: 08/23/18 19:59 Last Admin: 08/04/18 07:19 Dose: 2.5 mg Documented by: Ascorbic Acid (Vitamin C) 500 mg PEG BID [facility] Stop: 09/01/18 20:59 Last Admin: 08/04/18 07:57 Dose: 500 mg Documented by: Baclofen (Lioresal) 20 mg PO TID [facility] Stop: 08/19/18 13:59 Last Admin: 08/04/18 12:53 Dose: 20 mg Documented by: Budesonide (Pulmicort Respules) 0.5 mg INH BIDR [facility] Stop: 08/23/18 19:59 Last Admin: 08/04/18 07:19 Dose: 0.5 mg Documented by: Cetirizine HCl (Zyrtec) 10 mg PO DAILY [facility] Stop: 08/20/18 08:59 Last Admin: 08/04/18 07:58 Dose: 10 mg Documented by: Clonazepam (Klonopin) 0.5 mg PO DAILY PRN PRN Reason: prolonged seizures Stop: 08/19/18 13:44 Last Admin: 07/22/18 18:23 Dose: 0.5 mg Documented by: Dornase Jose (Pulmozyme) 2.5 ml INH TIDR [facility] Stop: 08/22/18 14:59 Last Admin: 08/04/18 14:06 Dose: 2.5 ml Documented by: Fluoxetine HCl (Prozac) 10 mg GT DAILY [facility] Stop: 08/20/18 08:59 Last Admin: 08/04/18 07:58 Dose: 10 mg Documented by: Guaifenesin (Robitussin Sugar Free Syrup) 100 mg PO Q6 [facility] Stop: 08/19/18 17:59 Last Admin: 08/04/18 12:53 Dose: 100 mg Documented by: Imipenem/Cilastatin Sodium 250 (mg/ Dextrose) 110 mls @ 100 mls/hr IV Q6H [facility]; Protocol Stop: 08/09/18 23:59 Last Infusion: 08/04/18 14:27 Dose: Infused Documented by: Lorazepam (Ativan) 0.5 mg in 1 mls @ 1 mls/min IV Q4H PRN PRN Reason: Agitation Stop: 09/02/18 08:52 Last Admin: 08/03/18 09:02 Dose: 1 mls/min Documented by: Lactobacillus Acidophilus (Floranex Granules/Powder Packet) 1 gm PEG TIDM [facility] Stop: 09/02/18 07:59 Last Admin: 08/04/18 12:53 Dose: 1 gm Documented by: Nitrofurantoin (Furadantin) 50 mg PO QAM [facility] Stop: 08/20/18 08:59 Last Admin: 08/04/18 07:58 Dose: 50 mg Documented by: Nutritional Formula (Prosource No Carb) 30 ml PO DAILY [facility] Stop: 08/25/18 13:59 Last Admin: 08/04/18 07:57 Dose: 30 ml Documented by: Nutritional Formula (Patient's Own Enteral Feeding) 350 ml PEG 0700,1130,1500,1900 [facility] Stop: 09/03/18 14:59 Last Admin: 08/04/18 14:57 Dose: 350 ml Documented by: Ondansetron HCl (Zofran) 4 mg IV Q6H PRN PRN Reason: Nausea Stop: 08/19/18 13:14 Polyethylene Glycol (Miralax Powder Packet) 8.5 gm PEG DAILY PRN PRN Reason: bowel regiment Last Admin: 08/03/18 17:11 Dose: 8.5 gm Documented by: Sterile Water (Tube Feeding Water Flush) 120 ea PO QID@07,1130,15,19 [facility]ENNEDY Stop: 09/02/18 06:59 Last Admin: 08/04/18 14:57 Dose: 120 ea Documented by: Tobramycin Sulfate (Nebcin) 80 mg INH MoWeFr@0800,1700 [facility] Stop: 08/20/18 07:59 Last Admin: 08/02/18 19:17 Dose: Not Given Documented by: Trazodone HCl (Desyrel) 50 mg GT HS [facility] Stop: 08/19/18 20:59 Last Admin: 08/03/18 20:10 Dose: 50 mg Documented by: Valproic Acid (Valproic Acid) 550 mg PO TID [facility] Stop: 08/20/18 08:59 Last Admin: 08/04/18 12:53 Dose: 550 mg Documented by: Zonisamide (Zonegran) 2 ea PO QAM [facility] Stop: 08/20/18 08:59 Last Admin: 08/04/18 07:59 Dose: 2 ea Documented by: Zonisamide (Zonegran) 1 ea PO QPM [facility] Stop: 08/19/18 20:59 Last Admin: 08/03/18 20:08 Dose: 1 ea Documented by: (1) Anemia Anemia type: unspecified type Qualified Code(s): D64.9 - Anemia, unspecified (2) Cerebral palsy Cerebral palsy type: unspecified type Qualified Code(s): G80.9 - Cerebral palsy, unspecified
[2018-08-04] MEDS: TRAZODONE HCL 50 MG TAB GT SCH (21:00)
[2018-08-05 04:58] LABS: Basophils # (auto) 0.01 K/uL (0-0.2); Basophils % (auto) 0.3 %; Eosinophils # (auto) 0.02 K/uL (0-0.5); Eosinophils % (auto) 0.6 %; Hematocrit (blood only) 33.3 % (37-47); Hemoglobin 11.3 g/dL (12.0-16.0); Immature Granulocytes # (auto) 0.01 K/uL (0.00-0.02); Immature Granulocytes % (auto) 0.3 %; Lymphocytes # (auto) 1.15 K/uL (1.2-3.4); Lymphocytes % (auto) 34.2 %; Mean Corpuscular Hgb Conc 33.9 g/dL (32-36); Mean Corpuscular Volume 101.2 fL (80-100); Mean Platelet Volume 8.5 fL (7.4-10.4); Monocytes # (auto) 0.35 K/uL (0.11-0.59); Monocytes % (auto) 10.4 %; Neutrophils # (auto) 1.82 K/uL (1.4-6.5); Neutrophils % (auto) 54.2 %; Platelet Count 153 K/uL (130-400); RDW Coefficient of Variation 12.5 % (11.5-14.5); Red Blood Count 3.29 M/uL (4.2-5.4); White Blood Count 3.36 K/uL (4.8-10.8)
[2018-08-05 05:15] LABS: BUN Creatinine Ratio 28.1 (10-20); Blood Urea Nitrogen 10 mg/dl (7-18); Carbon Dioxide 32 mmol/L (21-32); Chloride 105 mmol/L (98-107); Creatinine Clr Calc Pharmacy 167.8 ml/min; Est GFR (African American) > 150.0; Est GFR (Non-African American) > 150.0; Glucose 84 mg/dl (70-99); Potassium 3.9 mmol/L (3.5-5.1); Sodium 139 mmol/L (136-145)
[2018-08-05] MEDS: IMIPENEM/CILASTATIN SODIUM 250 MG in DEXTROSE 5% 100 ML IV SCH ×3 (06:03→17:53)
[2018-08-05] MEDS: guaiFENesin SUGAR FREE 100 MG/5 ML UDC PO SCH ×3 (06:03→17:35)
[2018-08-05] MEDS: [UNRECOGNIZED DRUG - OTHER] PEG SCH ×4 (06:27→19:31)
[2018-08-05] MEDS: NUTRITIONAL SUPPLEMENT PEG SCH ×4 (06:27→19:31)
[2018-08-05] MEDS: TUBE FEEDING WATER FLUSH PO SCH ×4 (06:28→19:31)
[2018-08-05] MEDS: POLYETHYLENE (MIRALAX) 17 GM PACK PEG PRN (07:26)
[2018-08-05] MEDS: LACTOBACILLUS ACIDOPHILUS 1 GM PACK PEG SCH ×3 (07:27→16:38)
[2018-08-05] MEDS: PROSOURCE NO CARB 30 ML/PKT PO SCH (07:28)
[2018-08-05] MEDS: ACETYLCYSTEINE 10% INHAL SOLN **DISPENSED FROM RESP. INH SCH ×2 (07:45→19:50)
[2018-08-05] MEDS: BUDESONIDE 0.5 MG/2 ML VIAL (PULMICORT) INH SCH ×2 (08:19→19:45)
[2018-08-05] MEDS: ALBUTEROL 0.083% NEBU SOLN 3 ML VIAL NEB SCH ×2 (08:19→19:45)
[2018-08-05] MEDS: DORNASE ALFA 2.5 ML AMP INH SCH ×4 (08:53→20:02)
[2018-08-05] MEDS: VALPROIC ACID SOLN 500 MG/10 ML UDC PO SCH ×3 (08:58→20:54)
[2018-08-05] MEDS: NITROFURANTOIN 25 MG/5 ML PO SCH (09:01)
[2018-08-05] MEDS: FLUOXETINE HCL 20 MG/5 ML GT SCH (09:01)
[2018-08-05] MEDS: CETIRIZINE HCL 10 MG TABLET PO SCH (09:02)
[2018-08-05] MEDS: BACLOFEN 20 MG TAB PO SCH ×3 (09:02→20:53)
[2018-08-05] MEDS: ASCORBIC ACID 500 MG TAB PEG SCH ×2 (09:02→20:54)
[2018-08-05] MEDS: ZONISAMIDE 100 MG PO SCH ×2 (09:02→20:53)
--- NOTE | 2018-08-05 15:30 | Critical Care Progress Note ---
Date of Service August 05, 2018 Assessment & Plan (1) Aspiration pneumonia: Keep head of bed elevated (2) Bronchopneumonia due to Pseudomonas species: Continue imipenem and KANDY. Would recommend 14-day course or as recommended by ID (3) Acute respiratory failure with hypoxemia: Continue mucolytic's and bronchodilators. Now that we have a trilogy machine we will try to find settings on which she is most comfortable and best oxygenated as well as educate her mom and other caregivers in use of the trilogy. (4) Cerebral palsy: Continue chronic baclofen and splints. Subjective 22-year-old female with severe cerebral palsy, bedbound nonverbal with contractures and chronic tracheostomy. She has multiple admissions for res piratory failure often due to mucous plugging. She was admitted this time on July 20 with severe left-sided atelectasis due to mucous plugging left mainstem bronchus and has undergone bronchoscopy 3 times this admission. Yesterday she was doing well today but last evening she decompensated again becoming markedly hypoxic and was transferred to ICU. She has copious secretions requiring frequent suctioning. Her hypoxia responded well to application of BiPAP via her tracheostomy and her chest x-ray shows only some subsegmental atelectasis left lower lobe suggesting the problem now is not so much large airway mucus plugging but more diffuse microatelectasis. Patient is chronically colonized with Pseudomonas and is currently on imipenem and KANDY for this. Review of her previous CT scan this admission shows that she does have some underlying central bronchiectasis. Her marriage counselor is Dr. Mtathew and Dr. Matthew and I have met with her mom in the ICU for quite a long time on 08/04. The patient has a twin sister who is equally handicapped and her mom takes care of them at home which is obviously a Herculean task and at times quite overwhelming.Dr. Matthew and I feel and her mom has now agreed that setting the patient up with home trilogy machine may be the best option. 08/04: Patient had an uneventful night on positive pressure ventilation via tracheostomy. She is currently utilizing CPAP of 8. She was on BiPAP yesterday. I think she is going to require home ventilator support long-term as she is very prone to both micro-and macro atelectasis with resultant hypoxemic respiratory failure. She has demonstrated multiple times that she is prone to recurrent mucous plugging requiring bronchoscopy. She is very frequently unable to maintain her work of breathing and has had acute hypercarbia on this admission as well as persistent hypoxemia. I think that she would benefit from a home ventilator that is able to deliver a volume targeted mode when needed such as a trilogy machine which would be expected to improve her pulmonary status, slow down the decline in her pulmonary status and hopefully reduce the number of recurrent lengthy hospitalizations. 08/05: Patient did well on CPAP of 8 overnight and has been tolerating trach collar during the day although oxygen requirements do go up when she is on trach collar. She has been approved for trilogy home ventilator and patient's mom has met here in the ICU with the rep from the company who will be supplying the trilogy. Review of Systems Review of Systems: Unobtainable Physical Exam Constitutional: Chronically ill-appearing, short stature, trach in place Eyes: PERRL, conjunctivae normal, anicteric sclerae Neck: Trach site without inflammation Cardiovascular: RRR, no murmur, no edema Gastrointestinal (Abdomen): Soft nontender PEG in place, tolerating tube feeds Musculoskeletal: Contractures present in all 4 limbs Results & Data Vital Signs (Past 12 Hours) Vital Signs Temp Pulse Pulse Resp BP Pulse Ox 08/05/18 14:00 101 H 29 H 105/56 L 92 08/05/18 13:02 105 H 26 H 102/56 L 91 08/05/18 13:00 99 H 22 92 08/05/18 12:00 36.8 C 90 28 H 95/60 L 95 08/05/18 11:03 100 H 36 H 98/53 L 87 L 08/05/18 10:20 108 H 24 127/72 95 08/05/18 10:00 118 H 34 H 127/72 93 08/05/18 09:01 112 H 22 94 08/05/18 09:00 110 H 26 H 98/72 L 94 08/05/18 08:00 102 H 22 112/67 91 08/05/18 07:40 78 20 91 08/05/18 07:23 98 H 22 91 08/05/18 07:20 78 18 91 08/05/18 07:00 79 32 H 103/58 L 99 08/05/18 06:01 81 24 97 08/05/18 06:00 81 21 101/70 97 08/05/18 05:01 90 22 97 08/05/18 05:00 86 24 98/50 L 97 08/05/18 04:13 98 H 32 H 104/70 98 08/05/18 03:55 36.5 C Laboratory Results 08/05/18 08/05/18 Range/Units 04:36 04:36 WBC 3.36 L (4.8-10.8) K/uL RBC 3.29 L (4.2-5.4) M/uL Hgb 11.3 L (12.0-16.0) g/dL Hct 33.3 L (37-47) % MCV 101.2 H (80-100) fL MCH 34.3 H (25-34) pg MCHC 33.9 (32-36) g/dL RDW Std Deviation 46.0 (36.4-46.3) fL RDW Coeff of [place] 12.5 (11.5-14.5) % Plt Count 153 (130-400) K/uL MPV 8.5 (7.4-10.4) fL Immature Gran % (Auto) 0.3 % Neut % (Auto) 54.2 % Lymph % (Auto) 34.2 % [place] % (Auto) 10.4 % Eos % (Auto) 0.6 % Baso % (Auto) 0.3 % Immature Gran # (Auto) 0.01 (0.00-0.02) K/uL Neut # (Auto) 1.82 (1.4-6.5) K/uL Lymph # (Auto) 1.15 L (1.2-3.4) K/uL [place] # (Auto) 0.35 (0.11-0.59) K/uL Eos # (Auto) 0.02 (0-0.5) K/uL Baso # (Auto) 0.01 (0-0.2) K/uL Sodium 139 (136-145) mmol/L Potassium 3.9 (3.5-5.1) mmol/L Chloride 105 (98-107) mmol/L Carbon Dioxide 32 (21-32) mmol/L Anion Gap 2.0 L (3-11) BUN 10 (7-18) mg/dl Creatinine 0.37 L (0.6-1.2) mg/dl Est Cr Clr Drug Dosing 167.8 ml/min Est GFR ( Amer) > 150.0 Est GFR (Non-Af Amer) > 150.0 BUN/Creatinine Ratio 28.1 H (10-20) Glucose 84 (70-99) mg/dl Calcium 9.0 (8.5-10.1) mg/dl Medications Administered Home Medications Medication Instructions Recorded Confirmed Last Taken Lactobacillus acidophilus 4 tab FEEDING TUBE TIDM 07/20/18 07/20/18 Unknown acetylcysteine 07/20/18 Unknown acetylcysteine 3 ml INHALATION BID 07/20/18 07/20/18 Unknown albuterol sulfate 2.5 mg INHALATION Q4H PRN 07/20/18 07/20/18 07/19/18 ascorbic acid (vitamin C) [Vitamin 500 mg FEEDING TUBE BID 07/20/18 07/20/18 Unknown C] baclofen 20 mg FEEDING TUBE TID 07/20/18 07/20/18 07/20/18 budesonide 2 ml INHALATION BID 07/20/18 07/20/18 07/19/18 cetirizine 10 mg FEEDING TUBE DAILY 07/20/18 07/20/18 07/20/18 clonazepam 0.5 mg FEEDING TUBE DIRECTED 07/20/18 07/20/18 02/23/18 fluoxetine 10 mg FEEDING TUBE DAILY 07/20/18 07/20/18 07/19/18 glycopyrrolate 0.5 mg FEEDING TUBE BID 07/20/18 07/20/18 Unknown guaifenesin 100 mg PO Q6H 07/20/18 07/20/18 Unknown nitrofurantoin 50 mg FEEDING TUBE DAILY 07/20/18 07/20/18 07/20/18 polyethylene glycol 3350 8.5 g FEEDING TUBE DAILY PRN 07/20/18 07/20/18 07/19/18 tobramycin 4 cap INHALATION Q12H 07/20/18 07/20/18 07/19/18 trazodone 50 mg FEEDING TUBE HS 07/20/18 07/20/18 07/19/18 valproic acid (as sodium salt) 550 mg FEEDING TUBE TID 07/20/18 07/21/18 07/20/18 zonisamide 100 mg FEEDING TUBE HS 07/20/18 07/20/18 07/19/18 zonisamide 200 mg FEEDING TUBE QAM 07/20/18 07/20/18 07/20/18 food supplemt, lactose-reduced 1.5 ea PO QID@07,1130,,07/28/18 07/28/18 Unknown [Boost] water 120 ea PO QID@07,1130,,07/28/18 07/28/18 Unknown Active Medications Generic Name Dose Route Start Last Admin Trade Name Freq PRN Reason Stop Dose Admin Acetaminophen 650 mg 07/22/18 21:22 07/29/18 06:21 Tylenol PEG 08/21/18 21:21 650 mg Q4H PRN Administration Pain or Fever Acetylcysteine 3 ml 07/23/18 08:00 08/05/18 07:45 Mucomyst 10% INH 08/21/18 20:59 3 ml BIDR KENNEDY Administration Albuterol 2.5 mg 07/20/18 13:15 07/23/18 19:47 Ventolin 0.083% 2.5mg/3ml INH 08/19/18 13:14 2.5 mg Q4H PRN Administration Wheezing/ shortness of breath Albuterol 2.5 mg 07/24/18 20:00 08/05/18 08:19 Ventolin 0.083% 2.5mg/3ml NEB 08/23/18 19:59 2.5 mg BIDR KENNEDY Administration Ascorbic Acid 500 mg 08/02/18 21:00 08/05/18 09:02 Vitamin C PEG 09/01/18 20:59 500 mg BID KENNEDY Administration Baclofen 20 mg 07/20/18 14:00 08/05/18 13:43 Lioresal PO 08/19/18 13:59 20 mg TID KENNEDY Administration Budesonide 0.5 mg 07/24/18 20:00 08/05/18 08:19 Pulmicort Respules INH 08/23/18 19:59 0.5 mg BIDR KENNEDY Administration Cetirizine HCl 10 mg 07/21/18 09:00 08/05/18 09:02 Zyrtec PO 08/20/18 08:59 10 mg DAILY KENNEDY Administration Clonazepam 0.5 mg 07/20/18 13:45 07/22/18 18:23 Klonopin PO 08/19/18 13:44 0.5 mg DAILY PRN Administration prolonged seizures Dornase Jose 2.5 ml 07/23/18 15:00 08/05/18 08:53 Pulmozyme INH 08/22/18 14:59 2.5 ml TIDR KENNEDY Administration Fluoxetine HCl 10 mg 07/21/18 09:00 08/05/18 09:01 Prozac GT 08/20/18 08:59 10 mg DAILY KENNEDY Administration Guaifenesin 100 mg 07/20/18 18:00 08/05/18 11:55 Robitussin Sugar Free Syrup PO 08/19/18 17:59 100 mg Q6 KENNEDY Administration Imipenem/Cilastatin Sodium 250 110 mls @ 100 mls/hr 07/26/18 12:15 08/05/18 13:45 mg/ Dextrose IV 08/09/18 23:59 Infused Q6H KENNEDY Infusion Protocol Lorazepam 0.5 mg in 1 mls @ 1 mls/min 08/03/18 08:53 08/03/18 09:02 Ativan IV 09/02/18 08:52 1 mls/min Q4H PRN Administration Agitation Lactobacillus Acidophilus 1 gm 08/03/18 08:00 08/05/18 11:54 Floranex Granules/Powder Packet PEG 09/02/18 07:59 1 gm TIDM KENNEDY Administration Nitrofurantoin 50 mg 07/21/18 09:00 08/05/18 09:01 Furadantin PO 08/20/18 08:59 50 mg QAM KENNEDY Administration Nutritional Formula 30 ml 07/26/18 14:00 08/05/18 07:28 Prosource No Carb PO 08/25/18 13:59 30 ml DAILY KENNEDY Administration Nutritional Formula 350 ml 08/04/18 15:00 08/05/18 11:54 Patient's Own Enteral Feeding PEG 09/03/18 14:59 350 ml 0700,1130,1500,1900 KENNEDY Administration Polyethylene Glycol 8.5 gm 07/20/18 13:15 08/05/18 07:26 Miralax Powder Packet PEG 8.5 gm DAILY PRN Administration bowel regiment Sterile Water 120 ea 08/03/18 07:00 08/05/18 11:54 Tube Feeding Water Flush PO 09/02/18 06:59 120 ea QID@07,1130,15,19 KENNEDY Administration Tobramycin Sulfate 80 mg 07/21/18 08:00 08/04/18 18:59 Nebcin INH 08/20/18 07:59 80 mg MoWeFr@0800,1700 KENNEDY Administration Trazodone HCl 50 mg 07/20/18 21:00 08/04/18 21:00 Desyrel GT 08/19/18 20:59 50 mg HS KENNEDY Administration Valproic Acid 550 mg 07/21/18 09:00 08/05/18 13:43 Valproic Acid PO 08/20/18 08:59 550 mg TID KENNEDY Administration Zonisamide 2 ea 07/21/18 09:00 08/05/18 09:02 Zonegran PO 08/20/18 08:59 2 ea QAM KENNEDY Administration Zonisamide 1 ea 07/20/18 21:00 08/04/18 21:01 Zonegran PO 08/19/18 20:59 1 ea QPM KENNEDY Administration PG Care Time/CCT Critical Care Time: Yes Total Critical Care Time: 35 (1) Cerebral palsy Cerebral palsy type: unspecified type Qualified Code(s): G80.9 - Cerebral palsy, unspecified
--- NOTE | 2018-08-05 16:33 | Hospitalist Progress Note ---
Date of Service August 05, 2018 Assessment & Plan (1) Acute respiratory failure with hypoxia and hypercapnia: 2nd to extensive LLL pneumonia and collapse. s/p multiple bronchoscopies while in ICU with removal of left-sided mucous plugs earlier this stay. last 2 bronchs were relatively normal, they were over a week ago Had been weaned to trach collar, several nights ago had worsening O2 requirement. Placed on vapotherm HFNC via trach. was stable until the evening of 08/02, became more hypoxic, had to be transferred to ICU CXR with worsening left lower lobe infiltrate, increased effusion saturations responded quickly to CPAP via tracheostomy discussed with Dr. Matthew and physical security manager, will start process to get Trilogy at home discussed with patient's mother, will not discharge until Trilogy set up here and she and home RN are comfortable patient would be high risk for readmission without proper training continue with Albuterol nebs, Mucomyst Nebs, Pulmozyme nebs TID will continue these at home, the Pulmozyme nebs will be new patient stable on PEEP 8 and FiO2 weaned down to 30% (2) Bronchopneumonia due to Pseudomonas species: LLL. today is day #17 of Primaxin, she has not had a fever, WBC low at 3k All cultures to date with pseudomonas. Has had such in the past suggesting colonization from this pathogen. ID consult completed - 14-day course of imipenem recommended will continue due to decline in status and return to ICU Wean O2 as tolerated CXR on 08/03 with increased left lower lobe infiltrate (3) Cerebral palsy: nonambulatory, nonverbal at baseline. trach/PEG. seizure disorder. continue all home chronic meds. (4) Thrombocytopenia: resolved. was likely due to infection. B12/folate were normal. (5) Anemia: Prior b12, folate levels normal. Iron studies normal. TSH minimally elevated; doubt it is playing any role. likely anemia chronic disease. Hb 11 today (6) Pleural effusion, left: small, parapneumonic. (7) Seizure disorder: cont home meds. no apparent seizures while here. (8) Status post insertion of percutaneous endoscopic gastrostomy (PEG) tube: cont home feeding regimen tolerating well stooling well (9) DVT prophylaxis: SCDs d/w CM, patient can only be on trilogy for 72 hours inpatient will need to d/c to home prior to that time Subjective no major issues today Trilogy delivered and rep here to talk with family reviewed labs, WBC low at 3k, Hb 11, platelets normal BMP is normal Review of Systems Review of Systems: Unobtainable due to cognitive status and Unobtainable due to endotracheal tube Physical Exam Constitutional: well developed, + thin, + physical limitations and + frail appearing; not in distress Eyes: PERRL, conjunctivae normal, anicteric sclerae ENMT: external ear and nose normal, oropharynx normal Neck: trachea midline, no thyromegaly (trach collar in place) Respiratory: normal respiratory effort Auscultation: + diminished lung sounds (left base) and + rhonchi (left side); no wheezes Cardiovascular: Rate/Rhythm: regular rhythm and + tachycardic Heart Sounds: normal S1 and normal S2; no murmur Vessels: no JVD Extremities: no edema Gastrointestinal (Abdomen): normal bowel sounds, soft, nontender, no h epatosplenomegaly (PEG in place) Musculoskeletal: Head/Neck/Chest: normocephalic and head atraumatic Extremities: + abnormal muscle tone and + muscle atrophy; + extremities abnormal to inspection (contractures), no cyanosis and no clubbing Skin: no rashes, warm and dry Neurologic: awake; + does not move all extremities and no focal motor deficits Speech / Cognition: + abnormal speech (non verbal) Motor/Sensory: + abnormal movement Psychiatric: Orientation: alert and cooperative; + not oriented to person, + not oriented to place and + not oriented to time Lymphatic: no cervical or axillary lymphadenopathy Results & Data Vital Signs (Past 12 Hours) Vital Signs Temp Pulse Pulse Resp BP Pulse Ox 08/05/18 15:00 114 H 34 H 120/66 88 L 08/05/18 14:00 101 H 29 H 105/56 L 92 08/05/18 13:02 105 H 26 H 102/56 L 91 08/05/18 13:00 99 H 22 92 08/05/18 12:00 36.8 C 90 28 H 95/60 L 95 08/05/18 11:03 100 H 36 H 98/53 L 87 L 08/05/18 10:20 108 H 24 127/72 95 08/05/18 10:00 118 H 34 H 127/72 93 08/05/18 09:01 112 H 22 94 08/05/18 09:00 110 H 26 H 98/72 L 94 08/05/18 08:00 102 H 22 112/67 91 08/05/18 07:40 78 20 91 08/05/18 07:23 98 H 22 91 08/05/18 07:20 78 18 91 08/05/18 07:00 79 32 H 103/58 L 99 08/05/18 06:01 81 24 97 08/05/18 06:00 81 21 101/70 97 08/05/18 05:01 90 22 97 08/05/18 05:00 86 24 98/50 L 97 Laboratory Results Laboratory Results - last 24 hr 08/05/18 08/05/18 04:36 04:36 WBC 3.36 L RBC 3.29 L Hgb 11.3 L Hct 33.3 L MCV 101.2 H MCH 34.3 H MCHC 33.9 RDW Std Deviation 46.0 RDW Coeff of Flaquito 12.5 Plt Count 153 MPV 8.5 Immature Gran % (Auto) 0.3 Neut % (Auto) 54.2 Lymph % (Auto) 34.2 [place] % (Auto) 10.4 Eos % (Auto) 0.6 Baso % (Auto) 0.3 Immature Gran # (Auto) 0.01 Neut # (Auto) 1.82 Lymph # (Auto) 1.15 L [place] # (Auto) 0.35 Eos # (Auto) 0.02 Baso # (Auto) 0.01 Sodium 139 Potassium 3.9 Chloride 105 Carbon Dioxide 32 Anion Gap 2.0 L BUN 10 Creatinine 0.37 L Est Cr Clr Drug Dosing 167.8 Est GFR ( Amer) > 150.0 Est GFR (Non-Af Amer) > 150.0 BUN/Creatinine Ratio 28.1 H Glucose 84 Calcium 9.0 Medications Administered Current Inpatient Medications Acetaminophen (Tylenol) 650 mg PEG Q4H PRN PRN Reason: Pain or Fever Stop: 08/21/18 21:21 Last Admin: 07/29/18 06:21 Dose: 650 mg Documented by: Acetylcysteine (Mucomyst 10%) 3 ml INH BIDR KENNEDY Stop: 08/21/18 20:59 Last Admin: 08/05/18 07:45 Dose: 3 ml Documented by: Albuterol (Ventolin 0.083% 2.5mg/3ml) 2.5 mg INH Q4H PRN PRN Reason: Wheezing/ shortness of breath Stop: 08/19/18 13:14 Last Admin: 07/23/18 19:47 Dose: 2.5 mg Documented by: Albuterol (Ventolin 0.083% 2.5mg/3ml) 2.5 mg NEB BIDR [facility] Stop: 08/23/18 19:59 Last Admin: 08/05/18 08:19 Dose: 2.5 mg Documented by: Ascorbic Acid (Vitamin C) 500 mg PEG BID [facility] Stop: 09/01/18 20:59 Last Admin: 08/05/18 09:02 Dose: 500 mg Documented by: Baclofen (Lioresal) 20 mg PO TID [facility] Stop: 08/19/18 13:59 Last Admin: 08/05/18 13:43 Dose: 20 mg Documented by: Budesonide (Pulmicort Respules) 0.5 mg INH BIDR [facility] Stop: 08/23/18 19:59 Last Admin: 08/05/18 08:19 Dose: 0.5 mg Documented by: Cetirizine HCl (Zyrtec) 10 mg PO DAILY [facility] Stop: 08/20/18 08:59 Last Admin: 08/05/18 09:02 Dose: 10 mg Documented by: Clonazepam (Klonopin) 0.5 mg PO DAILY PRN PRN Reason: prolonged seizures Stop: 08/19/18 13:44 Last Admin: 07/22/18 18:23 Dose: 0.5 mg Documented by: Dornase Jose (Pulmozyme) 2.5 ml INH TIDR KENNEDY Stop: 08/22/18 14:59 Last Admin: 08/05/18 17:47 Dose: 2.5 ml Documented by: Fluoxetine HCl (Prozac) 10 mg GT DAILY [facility] Stop: 08/20/18 08:59 Last Admin: 08/05/18 09:01 Dose: 10 mg Documented by: Guaifenesin (Robitussin Sugar Free Syrup) 100 mg PO Q6 [facility] Stop: 08/19/18 17:59 Last Admin: 08/05/18 17:35 Dose: 100 mg Documented by: Imipenem/Cilastatin Sodium 250 (mg/ Dextrose) 110 mls @ 100 mls/hr IV Q6H [facility]; Protocol Stop: 08/09/18 23:59 Last Admin: 08/05/18 17:53 Dose: 100 mls/hr Documented by: Lorazepam (Ativan) 0.5 mg in 1 mls @ 1 mls/min IV Q4H PRN PRN Reason: Agitation Stop: 09/02/18 08:52 Last Admin: 08/03/18 09:02 Dose: 1 mls/min Documented by: Lactobacillus Acidophilus (Floranex Granules/Powder Packet) 1 gm PEG TIDM KENNEDY Stop: 09/02/18 07:59 Last Admin: 08/05/18 16:38 Dose: 1 gm Documented by: Nitrofurantoin (Furadantin) 50 mg PO QAM [facility] Stop: 08/20/18 08:59 Last Admin: 08/05/18 09:01 Dose: 50 mg Documented by: Nutritional Formula (Prosource No Carb) 30 ml PO DAILY [facility] Stop: 08/25/18 13:59 Last Admin: 08/05/18 07:28 Dose: 30 ml Documented by: Nutritional Formula (Patient's Own Enteral Feeding) 350 ml PEG 0700,1130,1500,1900 [facility] Stop: 09/03/18 14:59 Last Admin: 08/05/18 15:15 Dose: 350 ml Documented by: Ondansetron HCl (Zofran) 4 mg IV Q6H PRN PRN Reason: Nausea Stop: 08/19/18 13:14 Polyethylene Glycol (Miralax Powder Packet) 8.5 gm PEG DAILY PRN PRN Reason: bowel regiment Last Admin: 08/05/18 07:26 Dose: 8.5 gm Documented by: Sterile Water (Tube Feeding Water Flush) 120 ea PO QID@07,1130,15,19 [facility] Stop: 09/02/18 06:59 Last Admin: 08/05/18 15:15 Dose: 120 ea Documented by: Tobramycin Sulfate (Nebcin) 80 mg INH MoWeFr@0800,1700 [facility] Stop: 08/20/18 07:59 Last Admin: 08/04/18 18:59 Dose: 80 mg Documented by: Trazodone HCl (Desyrel) 50 mg GT HS [facility] Stop: 08/19/18 20:59 Last Admin: 08/04/18 21:00 Dose: 50 mg Documented by: Valproic Acid (Valproic Acid) 550 mg PO TID [facility] Stop: 08/20/18 08:59 Last Admin: 08/05/18 13:43 Dose: 550 mg Documented by: Zonisamide (Zonegran) 2 ea PO QAM [facility] Stop: 08/20/18 08:59 Last Admin: 08/05/18 09:02 Dose: 2 ea Documented by: Zonisamide (Zonegran) 1 ea PO QPM [facility] Stop: 08/19/18 20:59 Last Admin: 08/04/18 21:01 Dose: 1 ea Documented by: PG Care Time/CCT Total # of Minutes Spent Total Time Spent with Patient: Total time spent is greater than 50% in coordination of care (as documented) at patient's floor/unit and/or counseling patient: (1) Anemia Anemia type: unspecified type Qualified Code(s): D64.9 - Anemia, unspecified (2) Cerebral palsy Cerebral palsy type: unspecified type Qualified Code(s): G80.9 - Cerebral palsy, unspecified
[2018-08-05] MEDS: TRAZODONE HCL 50 MG TAB GT SCH (20:52)
[2018-08-06] MEDS: guaiFENesin SUGAR FREE 100 MG/5 ML UDC PO SCH ×4 (00:04→18:17)
[2018-08-06] MEDS: IMIPENEM/CILASTATIN SODIUM 250 MG in DEXTROSE 5% 100 ML IV SCH ×4 (00:04→18:17)
[2018-08-06] MEDS: TUBE FEEDING WATER FLUSH PO SCH ×4 (06:08→18:18)
[2018-08-06] MEDS: NUTRITIONAL SUPPLEMENT PEG SCH ×4 (06:09→18:17)
[2018-08-06] MEDS: [UNRECOGNIZED DRUG - OTHER] PEG SCH ×4 (06:09→18:17)
[2018-08-06] MEDS: ALBUTEROL 0.083% NEBU SOLN 3 ML VIAL NEB SCH ×2 (06:52→20:04)
[2018-08-06] MEDS: BUDESONIDE 0.5 MG/2 ML VIAL (PULMICORT) INH SCH ×2 (06:52→20:04)
[2018-08-06] MEDS: ACETYLCYSTEINE 10% INHAL SOLN **DISPENSED FROM RESP. INH SCH ×2 (06:52→20:04)
[2018-08-06] MEDS: DORNASE ALFA 2.5 ML AMP INH SCH ×3 (06:53→20:42)
[2018-08-06] MEDS: TOBRAMYCIN SULF 40 MG/ML 2 ML VIAL INH SCH ×2 (07:40→16:15)
[2018-08-06] MEDS: NITROFURANTOIN 25 MG/5 ML PO SCH (08:17)
[2018-08-06] MEDS: FLUOXETINE HCL 20 MG/5 ML GT SCH (08:18)
[2018-08-06] MEDS: VALPROIC ACID SOLN 500 MG/10 ML UDC PO SCH ×3 (08:18→20:42)
[2018-08-06] MEDS: CETIRIZINE HCL 10 MG TABLET PO SCH (08:19)
[2018-08-06] MEDS: PROSOURCE NO CARB 30 ML/PKT PO SCH (08:19)
[2018-08-06] MEDS: LACTOBACILLUS ACIDOPHILUS 1 GM PACK PEG SCH ×3 (08:19→16:17)
[2018-08-06] MEDS: ASCORBIC ACID 500 MG TAB PEG SCH ×2 (08:19→20:45)
[2018-08-06] MEDS: BACLOFEN 20 MG TAB PO SCH ×3 (08:20→20:41)
[2018-08-06] MEDS: ZONISAMIDE 100 MG PO SCH ×2 (08:21→20:44)
--- NOTE | 2018-08-06 14:00 | Critical Care Progress Note ---
Date of Service August 06, 2018 Assessment & Plan (1) Aspiration pneumonia: Keep head of bed elevated (2) Bronchopneumonia due to Pseudomonas species: Continue imipenem and KANDY. Would recommend 14-day course or as recommended by ID (3) Acute respiratory failure with hypoxemia: Continue mucolytic's and bronchodilators. Now that we have a trilogy machine we will try to find settings on which she is most comfortable and best oxygenated as well as educate her mom and other caregivers in use of the trilogy.. Trach change was performed today. (4) Cerebral palsy: Continue chronic baclofen and splints. Subjective Patient was stable overnight. No significant issues. I changed her tracheostomy from a #4 to #6 cuffed Portex Bivona trach. Her mom is here with customer service representative teacher from [employer] so that patient and mom can get experienced with the trilogy. Review of Systems Review of Systems: Unobtainable due to cognitive status Physical Exam Physical Exam: Patient awake Head normocephalic atraumatic Neck trach in place Yuliana EOMI Chest few scattered rhonchi breath sounds symmetrical Abdomen soft PEG in place Cardiac regular rhythm no murmurs rubs gallops Results & Data Vital Signs (Past 12 Hours) Vital Signs Temp Pulse Pulse Resp BP Pulse Ox 08/06/18 10:00 100 H 92/59 L 96 08/06/18 09:00 96 H 103/57 L 95 08/06/18 08:00 36.9 C 106 H 96/57 L 93 08/06/18 07:00 94 H 91/61 L 98 08/06/18 06:52 89 27 H 98 08/06/18 06:05 99 H 20 96 08/06/18 06:01 89 96 08/06/18 06:00 90 106/61 96 08/06/18 05:00 93 H 93/54 L 97 08/06/18 04:08 89 26 H 98 08/06/18 04:00 36.8 C 92 H 105/65 97 08/06/18 03:00 95 H 90/47 L 08/06/18 02:00 95 H 103/55 L 95 Medications Administered Home Medications Medication Instructions Recorded Confirmed Last Taken Lactobacillus acidophilus 4 tab FEEDING TUBE TIDM 07/20/18 07/20/18 Unknown acetylcysteine 07/20/18 Unknown acetylcysteine 3 ml INHALATION BID 07/20/18 07/20/18 Unknown albuterol sulfate 2.5 mg INHALATION Q4H PRN 07/20/18 07/20/18 07/19/18 ascorbic acid (vitamin C) [Vitamin 500 mg FEEDING TUBE BID 07/20/18 07/20/18 Unknown C] baclofen 20 mg FEEDING TUBE TID 07/20/18 07/20/18 07/20/18 budesonide 2 ml INHALATION BID 07/20/18 07/20/18 07/19/18 cetirizine 10 mg FEEDING TUBE DAILY 07/20/18 07/20/18 07/20/18 clonazepam 0.5 mg FEEDING TUBE DIRECTED 07/20/18 07/20/18 02/23/18 fluoxetine 10 mg FEEDING TUBE DAILY 07/20/18 07/20/18 07/19/18 glycopyrrolate 0.5 mg FEEDING TUBE BID 07/20/18 07/20/18 Unknown guaifenesin 100 mg PO Q6H 07/20/18 07/20/18 Unknown nitrofurantoin 50 mg FEEDING TUBE DAILY 07/20/18 07/20/18 07/20/18 polyethylene glycol 3350 8.5 g FEEDING TUBE DAILY PRN 07/20/18 07/20/18 07/19/18 tobramycin 4 cap INHALATION Q12H 07/20/18 07/20/18 07/19/18 trazodone 50 mg FEEDING TUBE HS 07/20/18 07/20/18 07/19/18 valproic acid (as sodium salt) 550 mg FEEDING TUBE TID 07/20/18 07/21/18 07/20/18 zonisamide 100 mg FEEDING TUBE HS 07/20/18 07/20/18 07/19/18 zonisamide 200 mg FEEDING TUBE QAM 07/20/18 07/20/18 07/20/18 food supplemt, lactose-reduced 1.5 ea PO QID@07,1130,,19 07/28/18 07/28/18 Unknown [Boost] water 120 ea PO QID@07,1130,,19 07/28/18 07/28/18 Unknown Active Medications Generic Name Dose Route Start Last Admin Trade Name Freq PRN Reason Stop Dose Admin Acetaminophen 650 mg 07/22/18 21:22 07/29/18 06:21 Tylenol PEG 08/21/18 21:21 650 mg Q4H PRN Administration Pain or Fever Acetylcysteine 3 ml 07/23/18 08:00 08/06/18 06:52 Mucomyst 10% INH 08/21/18 20:59 3 ml BIDR KENNEDY Administration Albuterol 2.5 mg 07/20/18 13:15 07/23/18 19:47 Ventolin 0.083% 2.5mg/3ml INH 08/19/18 13:14 2.5 mg Q4H PRN Administration Wheezing/ shortness of breath Albuterol 2.5 mg 07/24/18 20:00 08/06/18 06:52 Ventolin 0.083% 2.5mg/3ml NEB 08/23/18 19:59 2.5 mg BIDR KENNEDY Administration Ascorbic Acid 500 mg 08/02/18 21:00 08/06/18 08:19 Vitamin C PEG 09/01/18 20:59 500 mg BID KENNEDY Administration Baclofen 20 mg 07/20/18 14:00 08/06/18 08:20 Lioresal PO 08/19/18 13:59 20 mg TID KENNEDY Administration Budesonide 0.5 mg 07/24/18 20:00 08/06/18 06:52 Pulmicort Respules INH 08/23/18 19:59 0.5 mg BIDR KENNEDY Administration Cetirizine HCl 10 mg 07/21/18 09:00 08/06/18 08:19 Zyrtec PO 08/20/18 08:59 10 mg DAILY KENNEDY Administration Clonazepam 0.5 mg 07/20/18 13:45 07/22/18 18:23 Klonopin PO 08/19/18 13:44 0.5 mg DAILY PRN Administration prolonged seizures Dornase Jose 2.5 ml 07/23/18 15:00 08/06/18 06:53 Pulmozyme INH 08/22/18 14:59 2.5 ml TIDR KENNEDY Administration Fluoxetine HCl 10 mg 07/21/18 09:00 08/06/18 08:18 Prozac GT 08/20/18 08:59 10 mg DAILY KENNEDY Administration Guaifenesin 100 mg 07/20/18 18:00 08/06/18 11:15 Robitussin Sugar Free Syrup PO 08/19/18 17:59 100 mg Q6 KENNEDY Administration Imipenem/Cilastatin Sodium 250 110 mls @ 100 mls/hr 07/26/18 12:15 08/06/18 12:14 mg/ Dextrose IV 08/09/18 23:59 100 mls/hr Q6H KENNEDY Administration Protocol Lorazepam 0.5 mg in 1 mls @ 1 mls/min 08/03/18 08:53 08/03/18 09:02 Ativan IV 09/02/18 08:52 1 mls/min Q4H PRN Administration Agitation Lactobacillus Acidophilus 1 gm 08/03/18 08:00 08/06/18 11:15 Floranex Granules/Powder Packet PEG 09/02/18 07:59 1 gm TIDM KENNEDY Administration Nitrofurantoin 50 mg 07/21/18 09:00 08/06/18 08:17 Furadantin PO 08/20/18 08:59 50 mg QAM KENNEDY Administration Nutritional Formula 30 ml 07/26/18 14:00 08/06/18 08:19 Prosource No Carb PO 08/25/18 13:59 30 ml DAILY KENNEDY Administration Nutritional Formula 350 ml 08/04/18 15:00 08/06/18 11:15 Patient's Own Enteral Feeding PEG 09/03/18 14:59 350 ml 0700,1130,1500,1900 KENNEDY Administration Polyethylene Glycol 8.5 gm 07/20/18 13:15 08/05/18 07:26 Miralax Powder Packet PEG 8.5 gm DAILY PRN Administration bowel regiment Sterile Water 120 ea 08/03/18 07:00 08/06/18 11:15 Tube Feeding Water Flush PO 09/02/18 06:59 120 ea QID@07,1130,15,19 KENNEDY Administration Tobramycin Sulfate 80 mg 07/21/18 08:00 08/06/18 07:40 Nebcin INH 08/20/18 07:59 80 mg MoWeFr@0800,1700 KENNEDY Administration Trazodone HCl 50 mg 07/20/18 21:00 08/05/18 20:52 Desyrel GT 08/19/18 20:59 50 mg HS KENNEDY Administration Valproic Acid 550 mg 07/21/18 09:00 08/06/18 08:18 Valproic Acid PO 08/20/18 08:59 550 mg TID KENNEDY Administration Zonisamide 2 ea 07/21/18 09:00 08/06/18 08:21 Zonegran PO 08/20/18 08:59 2 ea QAM KENNEDY Administration Zonisamide 1 ea 07/20/18 21:00 08/05/18 20:53 Zonegran PO 08/19/18 20:59 1 ea QPM KENNEDY Administration (1) Cerebral palsy Cerebral palsy type: unspecified type Qualified Code(s): G80.9 - Cerebral palsy, unspecified
--- NOTE | 2018-08-06 14:33 | Hospitalist Progress Note ---
Date of Service August 06, 2018 Assessment & Plan (1) Acute respiratory failure with hypoxia and hypercapnia: 2nd to extensive LLL pneumonia and collapse. s/p multiple bronchoscopies while in ICU with removal of left-sided mucous plugs earlier this stay. last 2 bronchs were relatively normal, they were over a week ago Had been weaned to trach collar, several nights ago had worsening O2 requirement. Placed on vapotherm HFNC via trach. was stable until the evening of 08/02, became more hypoxic, had to be transferred to ICU CXR with worsening left lower lobe infiltrate, increased effusion saturations responded quickly to CPAP via tracheostomy discussed with Dr. Matthew and pad machine offbearer, will start process to get Trilogy at home discussed with patient's mother, will not discharge until Trilogy set up here and she and home RN are comfortable patient would be high risk for readmission without proper training continue with Albuterol nebs, Mucomyst Nebs, Pulmozyme nebs TID will continue these at home, the Pulmozyme nebs will be new patient stable on PEEP 8 and FiO2 weaned down to 30% currently off of pressure support, breathing okay with blow by oxygen Trilogy now delivered and at the bedside, plan to use at night (2) Bronchopneumonia due to Pseudomonas species: LLL. today is day #18 of Primaxin, she has not had a fever, WBC was low at 3k yesterday All cultures to date with pseudomonas. Has had such in the past suggesting colonization from this pathogen. ID consult completed - 14-day course of imipenem recommended will continue due to decline in status and return to ICU Wean O2 as tolerated CXR on 08/03 with increased left lower lobe infiltrate (3) Cerebral palsy: nonambulatory, nonverbal at baseline. trach/PEG size 6 trach placed again on 08/06 seizure disorder. continue all home chronic meds. (4) Thrombocytopenia: resolved. was likely due to infection. B12/folate were normal. (5) Anemia: Prior b12, folate levels normal. Iron studies normal. TSH minimally elevated; doubt it is playing any role. likely anemia chronic disease. Hb 11 on 08/05 (6) Pleural effusion, left: small, parapneumonic. (7) Seizure disorder: cont home meds. no apparent seizures while here. (8) Status post insertion of percutaneous endoscopic gastrostomy (PEG) tube: cont home feeding regimen tolerating well stooling well (9) DVT prophylaxis: SCDs d/w CM, patient can only be on trilogy for 72 hours inpatient will need to d/c to home prior to that time Subjective patient was doing well this morning, per RN she was laughing at cartoons she is now in some discomfort and agitated after having tracheostomy changed she went from size 4 back up to size 6 discussed with patient's mother at the bedside now with the trilogy the plan is to get home mid week next week no labs today Review of Systems Review of Systems: Unobtainable due to cognitive status Physical Exam Constitutional: well developed, + thin, + physical limitations and + frail appearing; not in distress Eyes: PERRL, conjunctivae normal, anicteric sclerae ENMT: external ear and nose normal, oropharynx normal Neck: trachea midline, no thyromegaly (trach collar in place) Respiratory: normal respiratory effort Auscultation: + diminished lung sounds (left base) and + rhonchi (left side); no wheezes Cardiovascular: Rate/Rhythm: regular rhythm and + tachycardic Heart Sounds: normal S1 and normal S2; no murmur Vessels: no JVD Extremities: no edema Gastrointestinal (Abdomen): normal bowel sounds, soft, nontender, no hepatosplenomegaly (PEG in place) Musculoskeletal: Head/Neck/Chest: normocephalic and head atraumatic Extremities: + abnormal muscle tone and + muscle atrophy; + extremities abnormal to inspection (contractures), no cyanosis and no clubbing Skin: no rashes, warm and dry Neurologic: awake; + does not move all extremities and no focal motor deficits Speech / Cognition: + abnormal speech (non verbal) Motor/Sensory: + abnormal movement Psychiatric: Orientation: alert and cooperative; + not oriented to person, + not oriented to place and + not oriented to time Lymphatic: no cervical or axillary lymphadenopathy Results & Data Vital Signs (Past 12 Hours) Vital Signs Temp Pulse Pulse Resp BP Pulse Ox 08/06/18 10:00 100 H 92/59 L 96 08/06/18 09:00 96 H 103/57 L 95 08/06/18 08:00 36.9 C 106 H 96/57 L 93 08/06/18 07:00 94 H 91/61 L 98 08/06/18 06:52 89 27 H 98 08/06/18 06:05 99 H 20 96 08/06/18 06:01 89 96 08/06/18 06:00 90 106/61 96 08/06/18 05:00 93 H 93/54 L 97 08/06/18 04:08 89 26 H 98 08/06/18 04:00 36.8 C 92 H 105/65 97 08/06/18 03:00 95 H 90/47 L Medications Administered Current Inpatient Medications Acetaminophen (Tylenol) 650 mg PEG Q4H PRN PRN Reason: Pain or Fever Stop: 08/21/18 21:21 Last Admin: 07/29/18 06:21 Dose: 650 mg Documented by: Acetylcysteine (Mucomyst 10%) 3 ml INH BIDR [facility] Stop: 08/21/18 20:59 Last Admin: 08/06/18 06:52 Dose: 3 ml Documented by: Albuterol (Ventolin 0.083% 2.5mg/3ml) 2.5 mg INH Q4H PRN PRN Reason: Wheezing/ shortness of breath Stop: 08/19/18 13:14 Last Admin: 07/23/18 19:47 Dose: 2.5 mg Documented by: Albuterol (Ventolin 0.083% 2.5mg/3ml) 2.5 mg NEB BIDR [facility] Stop: 08/23/18 19:59 Last Admin: 08/06/18 06:52 Dose: 2.5 mg Documented by: Ascorbic Acid (Vitamin C) 500 mg PEG BID [facility] Stop: 09/01/18 20:59 Last Admin: 08/06/18 08:19 Dose: 500 mg Documented by: Baclofen (Lioresal) 20 mg PO TID [facility] Stop: 08/19/18 13:59 Last Admin: 08/06/18 14:15 Dose: 20 mg Documented by: Budesonide (Pulmicort Respules) 0.5 mg INH BIDR [facility] Stop: 08/23/18 19:59 Last Admin: 08/06/18 06:52 Dose: 0.5 mg Documented by: Cetirizine HCl (Zyrtec) 10 mg PO DAILY [facility] Stop: 08/20/18 08:59 Last Admin: 08/06/18 08:19 Dose: 10 mg Documented by: Clonazepam (Klonopin) 0.5 mg PO DAILY PRN PRN Reason: prolonged seizures Stop: 08/19/18 13:44 Last Admin: 07/22/18 18:23 Dose: 0.5 mg Documented by: Dornase Jose (Pulmozyme) 2.5 ml INH TIDR [facility] Stop: 08/22/18 14:59 Last Admin: 08/06/18 06:53 Dose: 2.5 ml Documented by: Fluoxetine HCl (Prozac) 10 mg GT DAILY [facility] Stop: 08/20/18 08:59 Last Admin: 08/06/18 08:18 Dose: 10 mg Documented by: Guaifenesin (Robitussin Sugar Free Syrup) 100 mg PO Q6 [facility] Stop: 08/19/18 17:59 Last Admin: 08/06/18 11:15 Dose: 100 mg Documented by: Imipenem/Cilastatin Sodium 250 (mg/ Dextrose) 110 mls @ 100 mls/hr IV Q6H [facility]; Protocol Stop: 08/09/18 23:59 Last Infusion: 08/06/18 14:18 Dose: Infused Documented by: Lorazepam (Ativan) 0.5 mg in 1 mls @ 1 mls/min IV Q4H PRN PRN Reason: Agitation Stop: 09/02/18 08:52 Last Admin: 08/03/18 09:02 Dose: 1 mls/min Documented by: Lactobacillus Acidophilus (Floranex Granules/Powder Packet) 1 gm PEG TIDM [facility] Stop: 09/02/18 07:59 Last Admin: 08/06/18 11:15 Dose: 1 gm Documented by: Nitrofurantoin (Furadantin) 50 mg PO QAM [facility] Stop: 08/20/18 08:59 Last Admin: 08/06/18 08:17 Dose: 50 mg Documented by: Nutritional Formula (Prosource No Carb) 30 ml PO DAILY [facility] Stop: 08/25/18 13:59 Last Admin: 08/06/18 08:19 Dose: 30 ml Documented by: Nutritional Formula (Patient's Own Enteral Feeding) 350 ml PEG 0700,1130,1500,1900 [facility] Stop: 09/03/18 14:59 Last Admin: 08/06/18 11:15 Dose: 350 ml Documented by: Ondansetron HCl (Zofran) 4 mg IV Q6H PRN PRN Reason: Nausea Stop: 08/19/18 13:14 Polyethylene Glycol (Miralax Powder Packet) 8.5 gm PEG DAILY PRN PRN Reason: bowel regiment Last Admin: 08/05/18 07:26 Dose: 8.5 gm Documented by: Sterile Water (Tube Feeding Water Flush) 120 ea PO QID@07,1130,15,19 [facility] Stop: 09/02/18 06:59 Last Admin: 08/06/18 11:15 Dose: 120 ea Documented by: Tobramycin Sulfate (Nebcin) 80 mg INH MoWeFr@0800,1700 [facility] Stop: 08/20/18 07:59 Last Admin: 08/06/18 07:40 Dose: 80 mg Documented by: Trazodone HCl (Desyrel) 50 mg GT HS [facility] Stop: 08/19/18 20:59 Last Admin: 08/05/18 20:52 Dose: 50 mg Documented by: Valproic Acid (Valproic Acid) 550 mg PO TID [facility] Stop: 08/20/18 08:59 Last Admin: 08/06/18 14:15 Dose: 550 mg Documented by: Zonisamide (Zonegran) 2 ea PO QAM [facility] Stop: 08/20/18 08:59 Last Admin: 08/06/18 08:21 Dose: 2 ea Documented by: Zonisamide (Zonegran) 1 ea PO QPM [facility] Stop: 08/19/18 20:59 Last Admin: 08/05/18 20:53 Dose: 1 ea Documented by: PG Care Time/CCT Total # of Minutes Spent Total Time Spent with Patient: Total time spent is greater than 50% in coordination of care (as documented) at patient's floor/unit and/or counseling patient: (1) Cerebral palsy Cerebral palsy type: unspecified type Qualified Code(s): G80.9 - Cerebral palsy, unspecified (2) Anemia Anemia type: unspecified type Qualified Code(s): D64.9 - Anemia, unspecified
[2018-08-06] MEDS ORDERED: HydrALAZINE HCL 20 MG/ML VIAL ONE (18:16)
[2018-08-06] MEDS: TRAZODONE HCL 50 MG TAB GT SCH (20:42)
[2018-08-07] MEDS: IMIPENEM/CILASTATIN SODIUM 250 MG in DEXTROSE 5% 100 ML IV SCH ×5 (00:01→23:44)
[2018-08-07] MEDS: guaiFENesin SUGAR FREE 100 MG/5 ML UDC PO SCH ×5 (00:02→23:44)
[2018-08-07 03:59] LABS: Basophils # (auto) 0.01 K/uL (0-0.2); Basophils % (auto) 0.2 %; Eosinophils # (auto) 0.02 K/uL (0-0.5); Eosinophils % (auto) 0.4 %; Hematocrit (blood only) 35.1 % (37-47); Immature Granulocytes # (auto) 0.01 K/uL (0.00-0.02); Immature Granulocytes % (auto) 0.2 %; Lymphocytes # (auto) 1.48 K/uL (1.2-3.4); Lymphocytes % (auto) 29.2 %; Mean Corpuscular Hgb Conc 34.2 g/dL (32-36); Mean Corpuscular Volume 100.6 fL (80-100); Mean Platelet Volume 8.7 fL (7.4-10.4); Monocytes # (auto) 0.43 K/uL (0.11-0.59); Monocytes % (auto) 8.5 %; Neutrophils # (auto) 3.11 K/uL (1.4-6.5); Neutrophils % (auto) 61.5 %; Platelet Count 176 K/uL (130-400); RDW Coefficient of Variation 12.3 % (11.5-14.5); RDW Standard Deviation 44.8 fL (36.4-46.3); Red Blood Count 3.49 M/uL (4.2-5.4); White Blood Count 5.06 K/uL (4.8-10.8)
[2018-08-07 04:15] LABS: BUN Creatinine Ratio 26.7 (10-20); Blood Urea Nitrogen 11 mg/dl (7-18); Carbon Dioxide 29 mmol/L (21-32); Chloride 106 mmol/L (98-107); Creatinine Clr Calc Pharmacy 138.5 ml/min; Est GFR (African American) > 150.0; Est GFR (Non-African American) 146.5; Glucose 86 mg/dl (70-99); Potassium 3.7 mmol/L (3.5-5.1); Sodium 139 mmol/L (136-145)
[2018-08-07] MEDS: [UNRECOGNIZED DRUG - OTHER] PEG SCH ×4 (06:04→18:30)
[2018-08-07] MEDS: NUTRITIONAL SUPPLEMENT PEG SCH ×4 (06:04→18:30)
[2018-08-07] MEDS: TUBE FEEDING WATER FLUSH PO SCH ×4 (06:07→18:31)
[2018-08-07] MEDS: BUDESONIDE 0.5 MG/2 ML VIAL (PULMICORT) INH SCH ×2 (06:55→19:35)
[2018-08-07] MEDS: ALBUTEROL 0.083% NEBU SOLN 3 ML VIAL NEB SCH ×2 (06:55→19:36)
[2018-08-07] MEDS: DORNASE ALFA 2.5 ML AMP INH SCH ×3 (06:55→19:36)
[2018-08-07] MEDS: ACETYLCYSTEINE 10% INHAL SOLN **DISPENSED FROM RESP. INH SCH ×2 (06:55→19:35)
[2018-08-07] MEDS: ASCORBIC ACID 500 MG TAB PEG SCH ×2 (07:27→20:33)
[2018-08-07] MEDS: ZONISAMIDE 100 MG PO SCH ×2 (07:27→20:33)
[2018-08-07] MEDS: BACLOFEN 20 MG TAB PO SCH ×3 (07:27→20:33)
[2018-08-07] MEDS: NITROFURANTOIN 25 MG/5 ML PO SCH (07:28)
[2018-08-07] MEDS: PROSOURCE NO CARB 30 ML/PKT PO SCH (07:28)
[2018-08-07] MEDS: VALPROIC ACID SOLN 500 MG/10 ML UDC PO SCH ×3 (07:28→20:33)
[2018-08-07] MEDS: CETIRIZINE HCL 10 MG TABLET PO SCH (07:29)
[2018-08-07] MEDS: FLUOXETINE HCL 20 MG/5 ML GT SCH (07:30)
[2018-08-07] MEDS: LACTOBACILLUS ACIDOPHILUS 1 GM PACK PEG SCH ×3 (07:31→17:39)
--- NOTE | 2018-08-07 13:34 | Hospitalist Progress Note ---
Date of Service August 07, 2018 Assessment & Plan (1) Acute respiratory failure with hypoxia and hypercapnia: 2nd to extensive LLL pneumonia and collapse. s/p multiple bronchoscopies while in ICU with removal of left-sided mucous plugs earlier this stay. last 2 bronchs were relatively normal, they were over a week ago Had been weaned to trach collar, several nights ago had worsening O2 requirement. Placed on vapotherm HFNC via trach. was stable until the evening of 08/02, became more hypoxic, had to be transferred to ICU CXR with worsening left lower lobe infiltrate, increased effusion saturations responded quickly to CPAP via tracheostomy discussed with Dr. Matthew and franchise specialist, will start process to get Trilogy at home discussed with patient's mother, will not discharge until Trilogy set up here and she and home RN are comfortable patient would be high risk for readmission without proper training continue with Albuterol nebs, Mucomyst Nebs, Pulmozyme nebs TID will continue these at home, the Pulmozyme nebs will be new patient stable on PEEP 8 and FiO2 weaned down to 30% stable on blow by oxygen during the day using Trilogy at night, tolerated okay last night if placed after she was asleep will use again marjorie d/w RN, patient has been stable for her (2) Bronchopneumonia due to Pseudomonas species: LLL. today is day #19 of Primaxin, she has not had a fever, WBC was low at 3k yesterday All cultures to date with pseudomonas. Has had such in the past suggesting colonization from this pathogen. ID consult completed - 14-day course of imipenem recommended will continue due to decline in status and return to ICU Wean O2 as tolerated CXR on 08/03 with increased left lower lobe infiltrate (3) Cerebral palsy: nonambulatory, nonverbal at baseline. trach/PEG size 6 trach placed again on 08/06 seizure disorder. continue all home chronic meds. (4) Thrombocytopenia: resolved. was likely due to infection. B12/folate were normal. (5) Anemia: Prior b12, folate levels normal. Iron studies normal. TSH minimally elevated; doubt it is playing any role. likely anemia chronic disease. Hb 12 on 08/07 (6) Pleural effusion, left: small, parapneumonic. (7) Seizure disorder: cont home meds. no apparent seizures while here. (8) Status post insertion of percutaneous endoscopic gastrostomy (PEG) tube: cont home feeding regimen tolerating well stooling well (9) DVT prophylaxis: SCDs d/w CM, patient can only be on trilogy for 72 hours inpatient will need to d/c to home prior to that time Subjective patient was tried on Trilogy last night did not like it when she was awake waited til she was asleep and placed on Trilogy and she slept all night labs reviewed, stable vitals are stable Review of Systems Review of Systems: All systems reviewed & are unremarkable except as noted in HPI & below and Unobtainable due to cognitive status Physical Exam Constitutional: well developed, + thin, + physical limitations and + frail appearing; not in distress Eyes: PERRL, conjunctivae normal, anicteric sclerae ENMT: external ear and nose normal, oropharynx normal Neck: trachea midline, no thyromegaly (trach collar in place) Respiratory: normal respiratory effort Auscultation: + diminished lung sounds (left base) and + rhonchi (left side); no wheezes Cardiovascular: Rate/Rhythm: regular rhythm and + tachycardic Heart Sounds: normal S1 and normal S2; no murmur Vessels: no JVD Extremities: no edema Gastrointestinal (Abdomen): normal bowel sounds, soft, nontender, no hepatosplenomegaly (PEG in place) Musculoskeletal: Head/Neck/Chest: normocephalic and head atraumatic Extremities: + abnormal muscle tone and + muscle atrophy; + extremities abnormal to inspection (contractures), no cyanosis and no clubbing Skin: no rashes, warm and dry Neurologic: awake; + does not move all extremities and no focal motor deficits Speech / Cognition: + abnormal speech (non verbal) Motor/Sensory: + abnormal movement Psychiatric: Orientation: alert and cooperative; + not oriented to person, + not oriented to place and + not oriented to time Lymphatic: no cervical or axillary lymphadenopathy Results & Data Vital Signs (Past 12 Hours) Vital Signs Temp Pulse Pulse Resp BP Pulse Ox 08/07/18 12:07 101 H 29 H 99/61 L 94 08/07/18 12:00 86 27 H 85/52 L 96 08/07/18 11:01 95 H 15 84/52 L 100 08/07/18 10:00 104 H 30 H 108/71 96 08/07/18 09:11 109 H 36 H 106/68 97 08/07/18 08:01 36.9 C 130 H 19 138/95 93 08/07/18 07:00 99 H 25 H 106/66 86 L 08/07/18 06:56 96 H 26 H 96 08/07/18 06:00 83 15 106/68 93 08/07/18 05:03 84 19 98 08/07/18 05:00 87 21 100/67 92 08/07/18 04:00 36.4 C L 82 26 H 99/71 L 99 08/07/18 03:00 80 23 105/70 97 08/07/18 02:02 82 27 H 88 L 08/07/18 02:00 82 27 H 82/49 L 91 Laboratory Results Laboratory Results - last 24 hr 08/07/18 08/07/18 03:48 03:48 WBC 5.06 RBC 3.49 L Hgb 12.0 Hct 35.1 L MCV 100.6 H MCH 34.4 H MCHC 34.2 RDW Std Deviation 44.8 RDW Coeff of Flaquito 12.3 Plt Count 176 MPV 8.7 Immature Gran % (Auto) 0.2 Neut % (Auto) 61.5 Lymph % (Auto) 29.2 [place] % (Auto) 8.5 Eos % (Auto) 0.4 Baso % (Auto) 0.2 Immature Gran # (Auto) 0.01 Neut # (Auto) 3.11 Lymph # (Auto) 1.48 [place] # (Auto) 0.43 Eos # (Auto) 0.02 Baso # (Auto) 0.01 Sodium 139 Potassium 3.7 Chloride 106 Carbon Dioxide 29 Anion Gap 4.0 BUN 11 Creatinine 0.42 L Est Cr Clr Drug Dosing 138.5 Est GFR ( Amer) > 150.0 Est GFR (Non-Af Amer) 146.5 BUN/Creatinine Ratio 26.7 H Glucose 86 Calcium 9.0 Medications Administered Current Inpatient Medications Acetaminophen (Tylenol) 650 mg PEG Q4H PRN PRN Reason: Pain or Fever Stop: 08/21/18 21:21 Last Admin: 07/29/18 06:21 Dose: 650 mg Documented by: Acetylcysteine (Mucomyst 10%) 3 ml INH BIDR KENNEDY Stop: 08/21/18 20:59 Last Admin: 08/07/18 06:55 Dose: 3 ml Documented by: Albuterol (Ventolin 0.083% 2.5mg/3ml) 2.5 mg INH Q4H PRN PRN Reason: Wheezing/ shortness of breath Stop: 08/19/18 13:14 Last Admin: 07/23/18 19:47 Dose: 2.5 mg Documented by: Albuterol (Ventolin 0.083% 2.5mg/3ml) 2.5 mg NEB BIDR KENNEDY Stop: 08/23/18 19:59 Last Admin: 08/07/18 06:55 Dose: 2.5 mg Documented by: Ascorbic Acid (Vitamin C) 500 mg PEG BID [facility] Stop: 09/01/18 20:59 Last Admin: 08/07/18 07:27 Dose: 500 mg Documented by: Baclofen (Lioresal) 20 mg PO TID [facility] Stop: 08/19/18 13:59 Last Admin: 08/07/18 07:27 Dose: 20 mg Documented by: Budesonide (Pulmicort Respules) 0.5 mg INH BIDR [facility] Stop: 08/23/18 19:59 Last Admin: 08/07/18 06:55 Dose: 0.5 mg Documented by: Cetirizine HCl (Zyrtec) 10 mg PO DAILY [facility] Stop: 08/20/18 08:59 Last Admin: 08/07/18 07:29 Dose: 10 mg Documented by: Clonazepam (Klonopin) 0.5 mg PO DAILY PRN PRN Reason: prolonged seizures Stop: 08/19/18 13:44 Last Admin: 07/22/18 18:23 Dose: 0.5 mg Documented by: Dornase Jose (Pulmozyme) 2.5 ml INH TIDR [facility] Stop: 08/22/18 14:59 Last Admin: 08/07/18 06:55 Dose: 2.5 ml Documented by: Fluoxetine HCl (Prozac) 10 mg GT DAILY [facility] Stop: 08/20/18 08:59 Last Admin: 08/07/18 07:30 Dose: 10 mg Documented by: Guaifenesin (Robitussin Sugar Free Syrup) 100 mg PO Q6 KENNEDY Stop: 08/19/18 17:59 Last Admin: 08/07/18 10:49 Dose: 100 mg Documented by: Imipenem/Cilastatin Sodium 250 (mg/ Dextrose) 110 mls @ 100 mls/hr IV Q6H [facility]; Protocol Stop: 08/09/18 23:59 Last Admin: 08/07/18 12:01 Dose: 100 mls/hr Documented by: Lorazepam (Ativan) 0.5 mg in 1 mls @ 1 mls/min IV Q4H PRN PRN Reason: Agitation Stop: 09/02/18 08:52 Last Admin: 08/03/18 09:02 Dose: 1 mls/min Documented by: Lactobacillus Acidophilus (Floranex Granules/Powder Packet) 1 gm PEG TIDM KENNEDY Stop: 09/02/18 07:59 Last Admin: 08/07/18 10:50 Dose: 1 gm Documented by: Nitrofurantoin (Furadantin) 50 mg PO QAM KENNEDY Stop: 08/20/18 08:59 Last Admin: 08/07/18 07:28 Dose: 50 mg Documented by: Nutritional Formula (Prosource No Carb) 30 ml PO DAILY KENNEDY Stop: 08/25/18 13:59 Last Admin: 08/07/18 07:28 Dose: 30 ml Documented by: Nutritional Formula (Patient's Own Enteral Feeding) 350 ml PEG 0700,1130,1500,1900 KENNEDY Stop: 09/03/18 14:59 Last Admin: 08/07/18 10:50 Dose: 350 ml Documented by: Ondansetron HCl (Zofran) 4 mg IV Q6H PRN PRN Reason: Nausea Stop: 08/19/18 13:14 Polyethylene Glycol (Miralax Powder Packet) 8.5 gm PEG DAILY PRN PRN Reason: bowel regiment Last Admin: 08/05/18 07:26 Dose: 8.5 gm Documented by: Sterile Water (Tube Feeding Water Flush) 120 ea PO QID@07,1130,15,19 [facility] Stop: 09/02/18 06:59 Last Admin: 08/07/18 10:51 Dose: 120 ea Documented by: Tobramycin Sulfate (Nebcin) 80 mg INH MoWeFr@0800,1700 [facility] Stop: 08/20/18 07:59 Last Admin: 08/06/18 16:15 Dose: 80 mg Documented by: Trazodone HCl (Desyrel) 50 mg GT HS [facility] Stop: 08/19/18 20:59 Last Admin: 08/06/18 20:42 Dose: 50 mg Documented by: Valproic Acid (Valproic Acid) 550 mg PO TID KENNEDY Stop: 08/20/18 08:59 Last Admin: 08/07/18 07:28 Dose: 550 mg Documented by: Zonisamide (Zonegran) 2 ea PO QAM KENNEDY Stop: 08/20/18 08:59 Last Admin: 08/07/18 07:27 Dose: 2 ea Documented by: Melchorisamide (Zonegran) 1 ea PO QPM KENNEDY Stop: 08/19/18 20:59 Last Admin: 08/06/18 20:44 Dose: 1 ea Documented by: PG Care Time/CCT Total # of Minutes Spent Total Time Spent with Patient: Total time spent is greater than 50% in coordination of care (as documented) at patient's floor/unit and/or counseling patient: (1) Cerebral palsy Cerebral palsy type: unspecified type Qualified Code(s): G80.9 - Cerebral palsy, unspecified (2) Anemia Anemia type: unspecified type Qualified Code(s): D64.9 - Anemia, unspecified
--- NOTE | 2018-08-07 14:53 | Critical Care Progress Note ---
Date of Service August 07, 2018 Assessment & Plan (1) Aspiration pneumonia: Keep head of bed elevated (2) Bronchopneumonia due to Pseudomonas species: Continue imipenem and KANDY. Would recommend 14-day course or as recommended by ID (3) Acute respiratory failure with hypoxemia: Continue mucolytic's and bronchodilators. Continue using trilogy at night, either AVAPS mode or CPAP mode (4) Cerebral palsy: Continue chronic baclofen and splints. Subjective Patient had an uneventful night and tolerated initial night on her trilogy. She is now on trach collar. Review of Systems Review of Systems: Unobtainable Physical Exam Eyes: PERRL, conjunctivae normal, anicteric sclerae Cardiovascular: RRR, no murmur, no edema Gastrointestinal (Abdomen): Soft nontender PEG tube in place normoactive bowel sounds Musculoskeletal: Extremities contracted Results & Data Vital Signs (Past 12 Hours) Vital Signs Temp Pulse Pulse Resp BP Pulse Ox 08/07/18 12:07 101 H 29 H 99/61 L 94 08/07/18 12:00 86 27 H 85/52 L 96 08/07/18 11:01 95 H 15 84/52 L 100 08/07/18 10:00 104 H 30 H 108/71 96 08/07/18 09:11 109 H 36 H 106/68 97 08/07/18 08:01 36.9 C 130 H 19 138/95 93 08/07/18 07:00 99 H 25 H 106/66 86 L 08/07/18 06:56 96 H 26 H 96 08/07/18 06:00 83 15 106/68 93 08/07/18 05:03 84 19 98 08/07/18 05:00 87 21 100/67 92 08/07/18 04:00 36.4 C L 82 26 H 99/71 L 99 08/07/18 03:00 80 23 105/70 97 Laboratory Results 08/07/18 08/07/18 Range/Units 03:48 03:48 WBC 5.06 (4.8-10.8) K/uL RBC 3.49 L (4.2-5.4) M/uL Hgb 12.0 (12.0-16.0) g/dL Hct 35.1 L (37-47) % MCV 100.6 H (80-100) fL MCH 34.4 H (25-34) pg MCHC 34.2 (32-36) g/dL RDW Std Deviation 44.8 (36.4-46.3) fL RDW Coeff of Flaquito 12.3 (11.5-14.5) % Plt Count 176 (130-400) K/uL MPV 8.7 (7.4-10.4) fL Immature Gran % (Auto) 0.2 % Neut % (Auto) 61.5 % Lymph % (Auto) 29.2 % [place] % (Auto) 8.5 % Eos % (Auto) 0.4 % Baso % (Auto) 0.2 % Immature Gran # (Auto) 0.01 (0.00-0.02) K/uL Neut # (Auto) 3.11 (1.4-6.5) K/uL Lymph # (Auto) 1.48 (1.2-3.4) K/uL [place] # (Auto) 0.43 (0.11-0.59) K/uL Eos # (Auto) 0.02 (0-0.5) K/uL Baso # (Auto) 0.01 (0-0.2) K/uL Sodium 139 (136-145) mmol/L Potassium 3.7 (3.5-5.1) mmol/L Chloride 106 (98-107) mmol/L Carbon Dioxide 29 (21-32) mmol/L Anion Gap 4.0 (3-11) BUN 11 (7-18) mg/dl Creatinine 0.42 L (0.6-1.2) mg/dl Est Cr Clr Drug Dosing 138.5 ml/min Est GFR ( Amer) > 150.0 Est GFR (Non-Af Amer) 146.5 BUN/Creatinine Ratio 26.7 H (10-20) Glucose 86 (70-99) mg/dl Calcium 9.0 (8.5-10.1) mg/dl Medications Administered Home Medications Medication Instructions Recorded Confirmed Last Taken Lactobacillus acidophilus 4 tab FEEDING TUBE TIDM 07/20/18 07/20/18 Unknown acetylcysteine 07/20/18 Unknown acetylcysteine 3 ml INHALATION BID 07/20/18 07/20/18 Unknown albuterol sulfate 2.5 mg INHALATION Q4H PRN 07/20/18 07/20/18 07/19/18 ascorbic acid (vitamin C) [Vitamin 500 mg FEEDING TUBE BID 07/20/18 07/20/18 Unknown C] baclofen 20 mg FEEDING TUBE TID 07/20/18 07/20/18 07/20/18 budesonide 2 ml INHALATION BID 07/20/18 07/20/18 07/19/18 cetirizine 10 mg FEEDING TUBE DAILY 07/20/18 07/20/18 07/20/18 clonazepam 0.5 mg FEEDING TUBE DIRECTED 07/20/18 07/20/18 02/23/18 fluoxetine 10 mg FEEDING TUBE DAILY 07/20/18 07/20/18 07/19/18 glycopyrrolate 0.5 mg FEEDING TUBE BID 07/20/18 07/20/18 Unknown guaifenesin 100 mg PO Q6H 07/20/18 07/20/18 Unknown nitrofurantoin 50 mg FEEDING TUBE DAILY 07/20/18 07/20/18 07/20/18 polyethylene glycol 3350 8.5 g FEEDING TUBE DAILY PRN 07/20/18 07/20/18 07/19/18 tobramycin 4 cap INHALATION Q12H 07/20/18 07/20/18 07/19/18 trazodone 50 mg FEEDING TUBE HS 07/20/18 07/20/18 07/19/18 valproic acid (as sodium salt) 550 mg FEEDING TUBE TID 07/20/18 07/21/18 07/20/18 zonisamide 100 mg FEEDING TUBE HS 07/20/18 07/20/18 07/19/18 zonisamide 200 mg FEEDING TUBE QAM 07/20/18 07/20/18 07/20/18 food supplemt, lactose-reduced 1.5 ea PO QID@07,1130,,07/28/18 07/28/18 Unknown [Boost] water 120 ea PO QID@07,1130,,07/28/18 07/28/18 Unknown Active Medications Generic Name Dose Route Start Last Admin Trade Name Freq PRN Reason Stop Dose Admin Acetaminophen 650 mg 07/22/18 21:22 07/29/18 06:21 Tylenol PEG 08/21/18 21:21 650 mg Q4H PRN Administration Pain or Fever Acetylcysteine 3 ml 07/23/18 08:00 08/07/18 06:55 Mucomyst 10% INH 08/21/18 20:59 3 ml BIDR KENNEDY Administration Albuterol 2.5 mg 07/20/18 13:15 07/23/18 19:47 Ventolin 0.083% 2.5mg/3ml INH 08/19/18 13:14 2.5 mg Q4H PRN Administration Wheezing/ shortness of breath Albuterol 2.5 mg 07/24/18 20:00 08/07/18 06:55 Ventolin 0.083% 2.5mg/3ml NEB 08/23/18 19:59 2.5 mg BIDR KENNEDY Administration Ascorbic Acid 500 mg 08/02/18 21:00 08/07/18 07:27 Vitamin C PEG 09/01/18 20:59 500 mg BID KENNEDY Administration Baclofen 20 mg 07/20/18 14:00 08/07/18 14:28 Lioresal PO 08/19/18 13:59 20 mg TID KENNEDY Administration Budesonide 0.5 mg 07/24/18 20:00 08/07/18 06:55 Pulmicort Respules INH 08/23/18 19:59 0.5 mg BIDR KENNEDY Administration Cetirizine HCl 10 mg 07/21/18 09:00 08/07/18 07:29 Zyrtec PO 08/20/18 08:59 10 mg DAILY KENNEDY Administration Clonazepam 0.5 mg 07/20/18 13:45 07/22/18 18:23 Klonopin PO 08/19/18 13:44 0.5 mg DAILY PRN Administration prolonged seizures Dornase Jose 2.5 ml 07/23/18 15:00 08/07/18 06:55 Pulmozyme INH 08/22/18 14:59 2.5 ml TIDR KENNEDY Administration Fluoxetine HCl 10 mg 07/21/18 09:00 08/07/18 07:30 Prozac GT 08/20/18 08:59 10 mg DAILY KENNEDY Administration Guaifenesin 100 mg 07/20/18 18:00 08/07/18 10:49 Robitussin Sugar Free Syrup PO 08/19/18 17:59 100 mg Q6 KENNEDY Administration Imipenem/Cilastatin Sodium 250 110 mls @ 100 mls/hr 07/26/18 12:15 08/07/18 13:46 mg/ Dextrose IV 08/09/18 23:59 Infused Q6H KENNEDY Infusion Protocol Lorazepam 0.5 mg in 1 mls @ 1 mls/min 08/03/18 08:53 08/03/18 09:02 Ativan IV 09/02/18 08:52 1 mls/min Q4H PRN Administration Agitation Lactobacillus Acidophilus 1 gm 08/03/18 08:00 08/07/18 10:50 Floranex Granules/Powder Packet PEG 09/02/18 07:59 1 gm TIDM KENNEDY Administration Nitrofurantoin 50 mg 07/21/18 09:00 08/07/18 07:28 Furadantin PO 08/20/18 08:59 50 mg QAM KENNEDY Administration Nutritional Formula 30 ml 07/26/18 14:00 08/07/18 07:28 Prosource No Carb PO 08/25/18 13:59 30 ml DAILY KENNEDY Administration Nutritional Formula 350 ml 08/04/18 15:00 08/07/18 14:29 Patient's Own Enteral Feeding PEG 09/03/18 14:59 350 ml 0700,1130,1500,1900 KENNEDY Administration Polyethylene Glycol 8.5 gm 07/20/18 13:15 08/05/18 07:26 Miralax Powder Packet PEG 8.5 gm DAILY PRN Administration bowel regiment Sterile Water 120 ea 08/03/18 07:00 08/07/18 14:29 Tube Feeding Water Flush PO 09/02/18 06:59 120 ea QID@07,1130,15,19 KENNEDY Administration Tobramycin Sulfate 80 mg 07/21/18 08:00 08/06/18 16:15 Nebcin INH 08/20/18 07:59 80 mg MoWeFr@0800,1700 KENNEDY Administration Trazodone HCl 50 mg 07/20/18 21:00 08/06/18 20:42 Desyrel GT 08/19/18 20:59 50 mg HS KENNEDY Administration Valproic Acid 550 mg 07/21/18 09:00 08/07/18 14:28 Valproic Acid PO 08/20/18 08:59 550 mg TID KENNEDY Administration Zonisamide 2 ea 07/21/18 09:00 08/07/18 07:27 Zonegran PO 08/20/18 08:59 2 ea QAM KENNEDY Administration Zonisamide 1 ea 07/20/18 21:00 08/06/18 20:44 Zonegran PO 08/19/18 20:59 1 ea QPM KENNEDY Administration PG Care Time/CCT Critical Care Time: Yes Total Critical Care Time: 26 (1) Cerebral palsy Cerebral palsy type: unspecified type Qualified Code(s): G80.9 - Cerebral palsy, unspecified
[2018-08-07] MEDS: TRAZODONE HCL 50 MG TAB GT SCH (20:33)
[2018-08-08] MEDS: guaiFENesin SUGAR FREE 100 MG/5 ML UDC PO SCH ×4 (06:04→23:42)
[2018-08-08] MEDS: IMIPENEM/CILASTATIN SODIUM 250 MG in DEXTROSE 5% 100 ML IV SCH ×4 (06:05→23:42)
[2018-08-08] MEDS: NUTRITIONAL SUPPLEMENT PEG SCH ×4 (06:06→17:52)
[2018-08-08] MEDS: [UNRECOGNIZED DRUG - OTHER] PEG SCH ×4 (06:06→17:52)
[2018-08-08] MEDS: TUBE FEEDING WATER FLUSH PO SCH ×4 (06:07→17:52)
[2018-08-08] MEDS: ACETYLCYSTEINE 10% INHAL SOLN **DISPENSED FROM RESP. INH SCH ×2 (07:29→19:42)
[2018-08-08] MEDS: ALBUTEROL 0.083% NEBU SOLN 3 ML VIAL NEB SCH ×2 (07:29→19:42)
[2018-08-08] MEDS: DORNASE ALFA 2.5 ML AMP INH SCH ×3 (07:29→19:58)
[2018-08-08] MEDS: BUDESONIDE 0.5 MG/2 ML VIAL (PULMICORT) INH SCH ×2 (07:29→19:42)
[2018-08-08] MEDS: FLUOXETINE HCL 20 MG/5 ML GT SCH (08:31)
[2018-08-08] MEDS: ZONISAMIDE 100 MG PO SCH ×2 (08:31→20:25)
[2018-08-08] MEDS: CETIRIZINE HCL 10 MG TABLET PO SCH (08:31)
[2018-08-08] MEDS: BACLOFEN 20 MG TAB PO SCH ×3 (08:31→20:24)
[2018-08-08] MEDS: PROSOURCE NO CARB 30 ML/PKT PO SCH (08:32)
[2018-08-08] MEDS: NITROFURANTOIN 25 MG/5 ML PO SCH (08:32)
[2018-08-08] MEDS: VALPROIC ACID SOLN 500 MG/10 ML UDC PO SCH ×3 (08:32→20:24)
[2018-08-08] MEDS: ASCORBIC ACID 500 MG TAB PEG SCH ×2 (08:33→20:24)
[2018-08-08] MEDS: LACTOBACILLUS ACIDOPHILUS 1 GM PACK PEG SCH ×3 (08:33→17:51)
--- NOTE | 2018-08-08 13:21 | Critical Care Progress Note ---
Date of Service August 08, 2018 Assessment & Plan (1) Aspiration pneumonia: Keep head of bed elevated (2) Bronchopneumonia due to Pseudomonas species: Continue imipenem and KANDY. Would recommend 14-day course or as recommended by ID (3) Acute respiratory failure with hypoxemia: Continue mucolytic's and bronchodilators. Continue using trilogy at night, either AVAPS mode or CPAP mode (4) Cerebral palsy: Continue chronic baclofen and splints. Subjective Patient appears comfortable. She did well on trilogy last night tolerating AVAPS mode without difficulty. She is currently on trach collar Review of Systems Review of Systems: Unobtainable due to cognitive status Physical Exam Eyes: PERRL, conjunctivae normal, anicteric sclerae Respiratory: Scattered rhonchi, coarse breath sounds Cardiovascular: RRR, no murmur, no edema Gastrointestinal (Abdomen): Soft nontender PEG in place Results & Data Vital Signs (Past 12 Hours) Vital Signs Temp Pulse Pulse Resp BP Pulse Ox 08/08/18 12:00 98 H 24 107/55 L 94 08/08/18 11:02 95 H 30 H 107/56 L 87 L 08/08/18 10:02 84 30 H 100/61 96 08/08/18 09:02 94 H 19 94/65 L 95 08/08/18 08:01 36.5 C 103 H 35 H 103/66 93 08/08/18 07:32 100 H 24 96 08/08/18 07:00 93 H 25 H 94/67 L 96 08/08/18 06:00 99 H 28 H 86/62 L 93 08/08/18 05:00 77 17 83/55 L 98 08/08/18 04:27 90 20 100 08/08/18 04:00 36.8 C 76 18 88/57 L 99 08/08/18 03:00 78 15 90/55 L 98 08/08/18 02:00 63 15 90/50 L 99 Medications Administered Home Medications Medication Instructions Recorded Confirmed Last Taken Lactobacillus acidophilus 4 tab FEEDING TUBE TIDM 07/20/18 07/20/18 Unknown acetylcysteine 07/20/18 Unknown acetylcysteine 3 ml INHALATION BID 07/20/18 07/20/18 Unknown albuterol sulfate 2.5 mg INHALATION Q4H PRN 07/20/18 07/20/18 07/19/18 ascorbic acid (vitamin C) [Vitamin 500 mg FEEDING TUBE BID 07/20/18 07/20/18 Unknown C] baclofen 20 mg FEEDING TUBE TID 07/20/18 07/20/18 07/20/18 budesonide 2 ml INHALATION BID 07/20/18 07/20/18 07/19/18 cetirizine 10 mg FEEDING TUBE DAILY 07/20/18 07/20/18 07/20/18 clonazepam 0.5 mg FEEDING TUBE DIRECTED 07/20/18 07/20/18 02/23/18 fluoxetine 10 mg FEEDING TUBE DAILY 07/20/18 07/20/18 07/19/18 glycopyrrolate 0.5 mg FEEDING TUBE BID 07/20/18 07/20/18 Unknown guaifenesin 100 mg PO Q6H 07/20/18 07/20/18 Unknown nitrofurantoin 50 mg FEEDING TUBE DAILY 07/20/18 07/20/18 07/20/18 polyethylene glycol 3350 8.5 g FEEDING TUBE DAILY PRN 07/20/18 07/20/18 07/19/18 tobramycin 4 cap INHALATION Q12H 07/20/18 07/20/18 07/19/18 trazodone 50 mg FEEDING TUBE HS 07/20/18 07/20/18 07/19/18 valproic acid (as sodium salt) 550 mg FEEDING TUBE TID 07/20/18 07/21/18 07/20/18 zonisamide 100 mg FEEDING TUBE HS 07/20/18 07/20/18 07/19/18 zonisamide 200 mg FEEDING TUBE QAM 07/20/18 07/20/18 07/20/18 food supplemt, lactose-reduced 1.5 ea PO QID@07,1130,,07/28/18 07/28/18 Unknown [Boost] water 120 ea PO QID@07,1130,,07/28/18 07/28/18 Unknown Active Medications Generic Name Dose Route Start Last Admin Trade Name Freq PRN Reason Stop Dose Admin Acetaminophen 650 mg 07/22/18 21:22 07/29/18 06:21 Tylenol PEG 08/21/18 21:21 650 mg Q4H PRN Administration Pain or Fever Acetylcysteine 3 ml 07/23/18 08:00 08/08/18 07:29 Mucomyst 10% INH 08/21/18 20:59 3 ml BIDR KENNEDY Administration Albuterol 2.5 mg 07/20/18 13:15 07/23/18 19:47 Ventolin 0.083% 2.5mg/3ml INH 08/19/18 13:14 2.5 mg Q4H PRN Administration Wheezing/ shortness of breath Albuterol 2.5 mg 07/24/18 20:00 08/08/18 07:29 Ventolin 0.083% 2.5mg/3ml NEB 08/23/18 19:59 2.5 mg BIDR KENNEDY Administration Ascorbic Acid 500 mg 08/02/18 21:00 08/08/18 08:33 Vitamin C PEG 09/01/18 20:59 500 mg BID KENNEDY Administration Baclofen 20 mg 07/20/18 14:00 08/08/18 08:31 Lioresal PO 08/19/18 13:59 20 mg TID KENNEDY Administration Budesonide 0.5 mg 07/24/18 20:00 08/08/18 07:29 Pulmicort Respules INH 08/23/18 19:59 0.5 mg BIDR KENNEDY Administration Cetirizine HCl 10 mg 07/21/18 09:00 08/08/18 08:31 Zyrtec PO 08/20/18 08:59 10 mg DAILY KENNEDY Administration Clonazepam 0.5 mg 07/20/18 13:45 07/22/18 18:23 Klonopin PO 08/19/18 13:44 0.5 mg DAILY PRN Administration prolonged seizures Dornase Jose 2.5 ml 07/23/18 15:00 08/08/18 07:29 Pulmozyme INH 08/22/18 14:59 2.5 ml TIDR KENNEDY Administration Fluoxetine HCl 10 mg 07/21/18 09:00 08/08/18 08:31 Prozac GT 08/20/18 08:59 10 mg DAILY KENNEDY Administration Guaifenesin 100 mg 07/20/18 18:00 08/08/18 11:31 Robitussin Sugar Free Syrup PO 08/19/18 17:59 100 mg Q6 KENNEDY Administration Imipenem/Cilastatin Sodium 250 110 mls @ 100 mls/hr 07/26/18 12:15 08/08/18 12:54 mg/ Dextrose IV 08/09/18 23:59 Infused Q6H KENNEDY Infusion Protocol Lorazepam 0.5 mg in 1 mls @ 1 mls/min 08/03/18 08:53 08/03/18 09:02 Ativan IV 09/02/18 08:52 1 mls/min Q4H PRN Administration Agitation Lactobacillus Acidophilus 1 gm 08/03/18 08:00 08/08/18 11:31 Floranex Granules/Powder Packet PEG 09/02/18 07:59 1 gm TIDM KENNEDY Administration Nitrofurantoin 50 mg 07/21/18 09:00 08/08/18 08:32 Furadantin PO 08/20/18 08:59 50 mg QAM KENNEDY Administration Nutritional Formula 30 ml 07/26/18 14:00 08/08/18 08:32 Prosource No Carb PO 08/25/18 13:59 30 ml DAILY KENNEDY Administration Nutritional Formula 350 ml 08/04/18 15:00 08/08/18 11:31 Patient's Own Enteral Feeding PEG 09/03/18 14:59 350 ml 0700,1130,1500,1900 KENNEDY Administration Polyethylene Glycol 8.5 gm 07/20/18 13:15 08/05/18 07:26 Miralax Powder Packet PEG 8.5 gm DAILY PRN Administration bowel regiment Sterile Water 120 ea 08/03/18 07:00 08/08/18 11:32 Tube Feeding Water Flush PO 09/02/18 06:59 120 ea QID@07,1130,15,19 KENNEDY Administration Tobramycin Sulfate 80 mg 07/21/18 08:00 08/06/18 16:15 Nebcin INH 08/20/18 07:59 80 mg MoWeFr@0800,1700 KENNEDY Administration Trazodone HCl 50 mg 07/20/18 21:00 08/07/18 20:33 Desyrel GT 08/19/18 20:59 50 mg HS KENNEDY Administration Valproic Acid 550 mg 07/21/18 09:00 08/08/18 08:32 Valproic Acid PO 08/20/18 08:59 550 mg TID KENNEDY Administration Zonisamide 2 ea 07/21/18 09:00 08/08/18 08:31 Zonegran PO 08/20/18 08:59 2 ea QAM KENNEDY Administration Zonisamide 1 ea 07/20/18 21:00 08/07/18 20:33 Zonegran PO 08/19/18 20:59 1 ea QPM KENNEDY Administration (1) Cerebral palsy Cerebral palsy type: unspecified type Qualified Code(s): G80.9 - Cerebral palsy, unspecified
--- NOTE | 2018-08-08 14:32 | Hospitalist Progress Note ---
Date of Service August 08, 2018 Assessment & Plan (1) Acute respiratory failure with hypoxia and hypercapnia: 2nd to extensive LLL pneumonia and collapse. s/p multiple bronchoscopies while in ICU with removal of left-sided mucous plugs earlier this stay. last 2 bronchs were relatively normal, they were two weeks ago was stable until the evening of 08/02, became more hypoxic, had to be transferred to ICU CXR with worsening left lower lobe infiltrate, increased effusion saturations responded quickly to CPAP via tracheostomy discussed with Dr. Matthew and supervisor grain and yeast plants, will start process to get Trilogy at home discussed with patient's mother, will not discharge until Trilogy set up here a nd she and home RN are comfortable patient would be high risk for readmission without proper training continue with Albuterol nebs, Mucomyst Nebs, Pulmozyme nebs TID will continue these at home, the Pulmozyme nebs will be new patient stable on PEEP 8 and FiO2 weaned down to 30% when on pressure support stable on blow by oxygen during the day some desaturations today, responding to vibration therapy and suctioning, continue conservative measures using Trilogy at night, tolerated okay after she was asleep will use again tonight (2) Bronchopneumonia due to Pseudomonas species: LLL. today is day #20 of Primaxin, she has not had a fever, WBC normal All cultures to date with pseudomonas. Has had such in the past suggesting colonization from this pathogen. ID consult completed - 14-day course of imipenem recommended will continue due to decline in status and return to ICU Wean O2 as tolerated CXR on 08/03 with increased left lower lobe infiltrate (3) Cerebral palsy: nonambulatory, nonverbal at baseline. trach/PEG size 6 trach placed again on 08/06 seizure disorder. continue all home chronic meds. (4) Thrombocytopenia: resolved. was likely due to infection. B12/folate were normal. (5) Anemia: Prior b12, folate levels normal. Iron studies normal. TSH minimally elevated; doubt it is playing any role. likely anemia chronic disease. Hb 12 on 08/07 (6) Pleural effusion, left: small, parapneumonic. (7) Seizure disorder: cont home meds. no apparent seizures while here. (8) Status post insertion of percutaneous endoscopic gastrostomy (PEG) tube: cont home feeding regimen tolerating well stooling well (9) DVT prophylaxis: SCDs d/w CM, patient can only be on trilogy for 72 hours inpatient will need to d/c to home prior to that time per patient's mother, home nurses will not be trained until Friday 08/11 Subjective patient with some desaturations today on blow by oxygen increased pulmonary toilet with mucolytics and vibration therapy per respiratory and RN, getting mucous with suctioning which is improving sats on Trilogy at night Review of Systems Review of Systems: Unobtainable due to cognitive status Physical Exam Constitutional: well developed, + thin, + physical limitations and + frail appearing; not in distress Eyes: PERRL, conjunctivae normal, anicteric sclerae ENMT: external ear and nose normal, oropharynx normal Neck: trachea midline, no thyromegaly (trach collar in place) Respiratory: normal respiratory effort Auscultation: + diminished lung sounds (left base) and + rhonchi (bilaterally); no wheezes Cardiovascular: Rate/Rhythm: regular rhythm and + tachycardic Heart Sounds: normal S1 and normal S2; no murmur Vessels: no JVD Extremities: no edema Gastrointestinal (Abdomen): normal bowel sounds, soft, nontender, no hepatosplenomegaly (PEG in place) Musculoskeletal: Head/Neck/Chest: normocephalic and head atraumatic Extremities: + abnormal muscle tone and + muscle atrophy; + extremities abnormal to inspection (contractures), no cyanosis and no clubbing Skin: no rashes, warm and dry Neurologic: awake; + does not move all extremities and no focal motor deficits Speech / Cognition: + abnormal speech (non verbal) Motor/Sensory: + abnormal movement Psychiatric: Orientation: alert and cooperative; + not oriented to person, + not oriented to place and + not oriented to time Lymphatic: no cervical or axillary lymphadenopathy Results & Data Vital Signs (Past 12 Hours) Vital Signs Temp Pulse Pulse Resp BP Pulse Ox 08/08/18 12:00 98 H 24 107/55 L 94 08/08/18 11:02 95 H 30 H 107/56 L 87 L 08/08/18 10:02 84 30 H 100/61 96 08/08/18 09:02 94 H 19 94/65 L 95 08/08/18 08:01 36.5 C 103 H 35 H 103/66 93 08/08/18 07:32 100 H 24 96 08/08/18 07:00 93 H 25 H 94/67 L 96 08/08/18 06:00 99 H 28 H 86/62 L 93 08/08/18 05:00 77 17 83/55 L 98 08/08/18 04:27 90 20 100 08/08/18 04:00 36.8 C 76 18 88/57 L 99 08/08/18 03:00 78 15 90/55 L 98 Medications Administered Current Inpatient Medications Acetaminophen (Tylenol) 650 mg PEG Q4H PRN PRN Reason: Pain or Fever Stop: 08/21/18 21:21 Last Admin: 07/29/18 06:21 Dose: 650 mg Documented by: Acetylcysteine (Mucomyst 10%) 3 ml INH BIDR [facility] Stop: 08/21/18 20:59 Last Admin: 08/08/18 07:29 Dose: 3 ml Documented by: Albuterol (Ventolin 0.083% 2.5mg/3ml) 2.5 mg INH Q4H PRN PRN Reason: Wheezing/ shortness of breath Stop: 08/19/18 13:14 Last Admin: 07/23/18 19:47 Dose: 2.5 mg Documented by: Albuterol (Ventolin 0.083% 2.5mg/3ml) 2.5 mg NEB BIDR [facility] Stop: 08/23/18 19:59 Last Admin: 08/08/18 07:29 Dose: 2.5 mg Documented by: Ascorbic Acid (Vitamin C) 500 mg PEG BID [facility] Stop: 09/01/18 20:59 Last Admin: 08/08/18 08:33 Dose: 500 mg Documented by: Baclofen (Lioresal) 20 mg PO TID [facility] Stop: 08/19/18 13:59 Last Admin: 08/08/18 08:31 Dose: 20 mg Documented by: Budesonide (Pulmicort Respules) 0.5 mg INH BIDR [facility] Stop: 08/23/18 19:59 Last Admin: 08/08/18 07:29 Dose: 0.5 mg Documented by: Cetirizine HCl (Zyrtec) 10 mg PO DAILY [facility] Stop: 08/20/18 08:59 Last Admin: 08/08/18 08:31 Dose: 10 mg Documented by: Clonazepam (Klonopin) 0.5 mg PO DAILY PRN PRN Reason: prolonged seizures Stop: 08/19/18 13:44 Last Admin: 07/22/18 18:23 Dose: 0.5 mg Documented by: Dornase Jose (Pulmozyme) 2.5 ml INH TIDR [facility] Stop: 08/22/18 14:59 Last Admin: 08/08/18 07:29 Dose: 2.5 ml Documented by: Fluoxetine HCl (Prozac) 10 mg GT DAILY [facility] Stop: 08/20/18 08:59 Last Admin: 08/08/18 08:31 Dose: 10 mg Documented by: Guaifenesin (Robitussin Sugar Free Syrup) 100 mg PO Q6 [facility] Stop: 08/19/18 17:59 Last Admin: 08/08/18 11:31 Dose: 100 mg Documented by: Imipenem/Cilastatin Sodium 250 (mg/ Dextrose) 110 mls @ 100 mls/hr IV Q6H [facility]; Protocol Stop: 08/09/18 23:59 Last Infusion: 08/08/18 12:54 Dose: Infused Documented by: Lorazepam (Ativan) 0.5 mg in 1 mls @ 1 mls/min IV Q4H PRN PRN Reason: Agitation Stop: 09/02/18 08:52 Last Admin: 08/03/18 09:02 Dose: 1 mls/min Documented by: Lactobacillus Acidophilus (Floranex Granules/Powder Packet) 1 gm PEG TIDM [facility] Stop: 09/02/18 07:59 Last Admin: 08/08/18 11:31 Dose: 1 gm Documented by: Nitrofurantoin (Furadantin) 50 mg PO QAM [facility] Stop: 08/20/18 08:59 Last Admin: 08/08/18 08:32 Dose: 50 mg Documented by: Nutritional Formula (Prosource No Carb) 30 ml PO DAILY [facility] Stop: 08/25/18 13:59 Last Admin: 08/08/18 08:32 Dose: 30 ml Documented by: Nutritional Formula (Patient's Own Enteral Feeding) 350 ml PEG 0700,1130,1500,1900 [facility] Stop: 09/03/18 14:59 Last Admin: 08/08/18 11:31 Dose: 350 ml Documented by: Ondansetron HCl (Zofran) 4 mg IV Q6H PRN PRN Reason: Nausea Stop: 08/19/18 13:14 Polyethylene Glycol (Miralax Powder Packet) 8.5 gm PEG DAILY PRN PRN Reason: bowel regiment Last Admin: 08/05/18 07:26 Dose: 8.5 gm Documented by: Sterile Water (Tube Feeding Water Flush) 120 ea PO QID@07,1130,15,19 [facility] Stop: 09/02/18 06:59 Last Admin: 08/08/18 11:32 Dose: 120 ea Documented by: Tobramycin Sulfate (Nebcin) 80 mg INH MoWeFr@0800,1700 [facility] Stop: 08/20/18 07:59 Last Admin: 08/06/18 16:15 Dose: 80 mg Documented by: Trazodone HCl (Desyrel) 50 mg GT HS [facility] Stop: 08/19/18 20:59 Last Admin: 08/07/18 20:33 Dose: 50 mg Documented by: Valproic Acid (Valproic Acid) 550 mg PO TID [facility] Stop: 08/20/18 08:59 Last Admin: 08/08/18 08:32 Dose: 550 mg Documented by: Zonisamide (Zonegran) 2 ea PO QAM [facility] Stop: 08/20/18 08:59 Last Admin: 08/08/18 08:31 Dose: 2 ea Documented by: Zonisamide (Zonegran) 1 ea PO QPM [facility] Stop: 08/19/18 20:59 Last Admin: 08/07/18 20:33 Dose: 1 ea Documented by: PG Care Time/CCT Total # of Minutes Spent Total Time Spent with Patient: Total time spent is greater than 50% in coordination of care (as documented) at patient's floor/unit and/or counseling patient: (1) Cerebral palsy Cerebral palsy type: unspecified type Qualified Code(s): G80.9 - Cerebral palsy, unspecified (2) Anemia Anemia type: unspecified type Qualified Code(s): D64.9 - Anemia, unspecified
[2018-08-08] MEDS: TRAZODONE HCL 50 MG TAB GT SCH (20:24)
[2018-08-09 04:58] LABS: Basophils # (auto) 0.01 K/uL (0-0.2); Basophils % (auto) 0.1 %; Eosinophils # (auto) 0.07 K/uL (0-0.5); Hematocrit (blood only) 35.7 % (37-47); Immature Granulocytes # (auto) 0.03 K/uL (0.00-0.02); Immature Granulocytes % (auto) 0.4 %; Lymphocytes # (auto) 1.68 K/uL (1.2-3.4); Mean Corpuscular Hgb Conc 33.6 g/dL (32-36); Mean Corpuscular Volume 99.7 fL (80-100); Mean Platelet Volume 8.7 fL (7.4-10.4); Monocytes # (auto) 0.51 K/uL (0.11-0.59); Neutrophils # (auto) 5.01 K/uL (1.4-6.5); Neutrophils % (auto) 68.5 %; Platelet Count 209 K/uL (130-400); RDW Coefficient of Variation 12.3 % (11.5-14.5); RDW Standard Deviation 44.7 fL (36.4-46.3); Red Blood Count 3.58 M/uL (4.2-5.4); White Blood Count 7.31 K/uL (4.8-10.8)
[2018-08-09 05:16] LABS: Blood Urea Nitrogen 11 mg/dl (7-18); Calcium 8.9 mg/dl (8.5-10.1); Carbon Dioxide 26 mmol/L (21-32); Chloride 107 mmol/L (98-107); Creatinine Clr Calc Pharmacy 166.7 ml/min; Est GFR (African American) > 150.0; Est GFR (Non-African American) > 150.0; Glucose 78 mg/dl (70-99); Magnesium 2.1 mg/dl (1.8-2.4); Phosphorus 4.2 mg/dl (2.5-4.9); Potassium 3.8 mmol/L (3.5-5.1); Sodium 140 mmol/L (136-145)
[2018-08-09] MEDS: IMIPENEM/CILASTATIN SODIUM 250 MG in DEXTROSE 5% 100 ML IV SCH ×3 (05:58→18:10)
[2018-08-09] MEDS: guaiFENesin SUGAR FREE 100 MG/5 ML UDC PO SCH ×4 (05:58→23:55)
--- NOTE | 2018-08-09 06:47 | Critical Care Progress Note ---
Date of Service August 09, 2018 Assessment & Plan (1) Admitted to intensive care unit: Reason Critically Ill: 22-year-old female with acute on chronic respiratory failure with hypoxemia secondary to acute mucous plugging of the LEFT main bronchus. NEURO - * History of CP and seizure disorder. At baseline * Continue home medications as prescribed. CARDIAC/VASCULAR - * No history of cardiovascular disease. * Continue to monitor on telemetry. RESPIRATORY - * Acute on chronic hypoxic respiratory failure: Stable - secondary to pneumonia with subsequent mucous plugging and atelectasis - s/p multiple bronchs this admission to remove left sided mucous plugs - continue w/imipenem/cilastatin - continue pulmonary toilet including mucomyst, dornase dwight, albuterol and budesonide - pt will be discharged w/home trilogy device to use at night GI/NUTRITION - * Continue with tube feeds * Continue with additional protein supplementation RENAL/LYTES - * Monitor lytes - * No Cota ENDO - * No history of diabetes or thyroid disease * BSGs per unit protocol. ISS --> gtt per unit policy. HEME - * Stable H&H. ID - * LEFT lower lobe pneumonia * Continue imipenem - today is day 14. ID had recommended a total of 14 days. LINES/IV ACCESS - * PIVs x2 DVT PROPHYLAXIS: * SCDs * Patient at baseline functional status. Chemical prophylaxis not indicated Anticipate d/c on Thursday. (2) Acute respiratory failure with hypoxemia: (3) Cerebral palsy: (4) Fever: (5) Pneumonia: (6) Seizure disorder: (7) Status post insertion of percutaneous endoscopic gastrostomy (PEG) tube: (8) Pseudomonas aeruginosa colonization: Supervising Physician Co-Signing Physician Notes Dr. Daily was resident physician during care of patient. I separately evaluated patient for canales portions of the history and the exam. I was present during the critical portion of medical decision making, and I discussed the case with the resident. I generally agree with the findings and plan. 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 Patient has finished antibiotics and is awaiting placement secondary to training of home health staff in training with ventilator. Subjective Patient utilizing trilogy device at night, on trach collar during the day. Resting comfortably this AM, no respiratory distress. Review of Systems Review of Systems: Unobtainable due to cognitive status Physical Exam Constitutional: + thin and comfortable; not in distress Respiratory: normal respiratory effort; no respiratory distress Auscultation: + diminished lung sounds (w/coarse breath sounds) and + rhonchi (scattered rhonchi) Cardiovascular: Rate/Rhythm: regular rate and regular rhythm Gastrointestinal (Abdomen): Inspection/Auscultation: + abdomen abnormal to inspection (PEG tube in place) Percussion/Palpation: abdomen soft; abdomen nontender, no guarding and abdomen not rigid Skin: no rashes, warm and dry Results & Data Vital Signs (Past 12 Hours) Vital Signs Temp Pulse Pulse Resp BP Pulse Ox 08/09/18 06:00 80 21 100/62 98 08/09/18 05:00 86 20 92/64 L 99 08/09/18 04:00 36.8 C 70 20 97/65 L 96 08/09/18 03:00 77 25 H 92/61 L 98 08/09/18 02:00 72 25 H 82/47 L 98 08/09/18 01:00 85 15 95/53 L 100 08/09/18 00:00 36.8 C 105/64 96 08/08/18 23:15 91 H 18 91 08/08/18 23:00 86 29 H 94/55 L 93 08/08/18 22:00 87 24 100/60 95 08/08/18 21:00 91 H 29 H 99/56 L 96 08/08/18 20:00 37.1 C 106 H 32 H 111/75 94 08/08/18 19:44 108 H 24 95 08/08/18 19:00 99 H 30 H 94/54 L 90 PG Care Time/CCT Critical Care Time: No Resident Activity Tracking Resident Involvement: Resident Care Provided Care Provided: Adult Hospital Medicine (1) Fever Fever type: unspecified Qualified Code(s): R50.9 - Fever, unspecified (2) Cerebral palsy Cerebral palsy type: unspecified type Qualified Code(s): G80.9 - Cerebral palsy, unspecified (3) Pneumonia Laterality: left Lung location: lower lobe of lung Pneumonia type: due to unspecified organism Qualified Code(s): J18.1 - Lobar pneumonia, unspecified organism
[2018-08-09] MEDS: VALPROIC ACID SOLN 500 MG/10 ML UDC PO SCH ×3 (07:24→20:35)
[2018-08-09] MEDS: FLUOXETINE HCL 20 MG/5 ML GT SCH (07:25)
[2018-08-09] MEDS: CETIRIZINE HCL 10 MG TABLET PO SCH (07:25)
[2018-08-09] MEDS: PROSOURCE NO CARB 30 ML/PKT PO SCH (07:25)
[2018-08-09] MEDS: LACTOBACILLUS ACIDOPHILUS 1 GM PACK PEG SCH ×3 (07:25→18:10)
[2018-08-09] MEDS: ASCORBIC ACID 500 MG TAB PEG SCH ×2 (07:25→20:35)
[2018-08-09] MEDS: BACLOFEN 20 MG TAB PO SCH ×3 (07:25→20:35)
[2018-08-09] MEDS: ZONISAMIDE 100 MG PO SCH ×2 (07:26→20:35)
[2018-08-09] MEDS: NUTRITIONAL SUPPLEMENT PEG SCH ×4 (07:27→18:11)
[2018-08-09] MEDS: TUBE FEEDING WATER FLUSH PO SCH ×4 (07:27→18:11)
[2018-08-09] MEDS: [UNRECOGNIZED DRUG - OTHER] PEG SCH ×4 (07:27→18:11)
[2018-08-09] MEDS: NITROFURANTOIN 25 MG/5 ML PO SCH (07:28)
[2018-08-09] MEDS: ALBUTEROL 0.083% NEBU SOLN 3 ML VIAL NEB SCH ×2 (07:43→19:30)
[2018-08-09] MEDS: ACETYLCYSTEINE 10% INHAL SOLN **DISPENSED FROM RESP. INH SCH ×2 (07:43→19:31)
[2018-08-09] MEDS: BUDESONIDE 0.5 MG/2 ML VIAL (PULMICORT) INH SCH ×2 (07:57→19:30)
[2018-08-09] MEDS: DORNASE ALFA 2.5 ML AMP INH SCH ×3 (08:10→19:31)
[2018-08-09] MEDS: TOBRAMYCIN SULF 40 MG/ML 2 ML VIAL INH SCH ×2 (08:40→19:45)
--- NOTE | 2018-08-09 11:44 | Hospitalist Progress Note ---
Date of Service August 09, 2018 Assessment & Plan (1) Acute respiratory failure with hypoxia and hypercapnia: 2nd to extensive LLL pneumonia and collapse. s/p multiple bronchs early on during the stay with removal of copious left-sided mucous plugs. Needed mech vent early on in the stay, then weaned to Vapotherm via trach, and then ultimately trach collar. She worsened about 1 week ago necessitating transfer back to the ICU. She has been treated with Trilogy at night-time and trach collar/blow-by O2 during the day. Her imipenem course was extended beyond 14 days (now 21-day course planned). Plan- Trilogy at HS at home. Preparations for transition home in process. Appreciate pulmonary and critical care assistance. (2) Bronchopneumonia due to Pseudomonas species: LLL. Day of IV imipenem. Can stop antibiotics today. Continue tobramycin after today for prophylaxis? Defer to pulmonary/ID. Clinically pneumonia is resolved. (3) Cerebral palsy: nonambulatory, nonverbal at baseline. trach/PEG. chronic seizure disorder. continue all home chronic meds. (4) Thrombocytopenia: resolved. was likely due to infection. B12/folate were normal. (5) Anemia: Resolved. Prior b12, folate, and iron levels normal. (6) Pleural effusion, left: small, parapneumonic. resolved clinically. (7) Seizure disorder: cont home meds. no apparent seizures while here. (8) Status post insertion of percutaneous endoscopic gastrostomy (PEG) tube: cont home feeding regimen tolerating well stooling well (9) DVT prophylaxis: SCDs care d/w Dr Tariq cont preparations for transition home mid-week after all caregivers of Selvin receive Trilogy training Subjective no major issues overnight. father of Selvin was at bedside - he stated she was at baseline and doing well. "seems to be doing ok" he stated. tele stable. received Trilogy via trach overnight and trach collar by day w/o difficulty. Review of Systems Review of Systems: Unobtainable due to cognitive status (patient nonverbal) Physical Exam Constitutional: + thin and + altered mental status ENMT: external ear and nose normal, oropharynx normal Neck: + tracheostomy present (clean) Respiratory: no respiratory distress, no retractions and does not use accessory muscles Auscultation: + diminished lung sounds (left base ); no crackles and no wheezes Cardiovascular: Rate/Rhythm: regular rate and regular rhythm Heart Sounds: normal S1 and normal S2; no murmur Vessels: posterior tibial pulses present and dorsalis pedis pulses present; no JVD Extremities: no edema Gastrointestinal (Abdomen): normal bowel sounds, soft, nontender, no hepatosplenomegaly PEG clean Psychiatric: Orientation: + not alert and + not oriented x 3 Results & Data Vital Signs (Past 12 Hours) Vital Signs Temp Pulse Pulse Pulse Resp BP Pulse Ox 08/09/18 08:37 20 08/09/18 08:36 84 20 97 08/09/18 08:20 74 84 20 97 08/09/18 08:04 74 20 97 08/09/18 07:44 84 20 97 08/09/18 06:00 80 21 100/62 98 08/09/18 05:00 86 20 92/64 L 99 08/09/18 04:00 36.8 C 70 20 97/65 L 96 08/09/18 03:00 77 25 H 92/61 L 98 08/09/18 02:00 72 25 H 82/47 L 98 08/09/18 01:00 85 15 95/53 L 100 08/09/18 00:00 36.8 C 105/64 96 Laboratory Results Laboratory Results - last 24 hr 08/09/18 08/09/18 04:51 04:51 WBC 7.31 RBC 3.58 L Hgb 12.0 Hct 35.7 L MCV 99.7 MCH 33.5 MCHC 33.6 RDW Std Deviation 44.7 RDW Coeff of [place] 12.3 Plt Count 209 MPV 8.7 Immature Gran % (Auto) 0.4 Neut % (Auto) 68.5 Lymph % (Auto) 23.0 Mckinley % (Auto) 7.0 Eos % (Auto) 1.0 Baso % (Auto) 0.1 Immature Gran # (Auto) 0.03 H Neut # (Auto) 5.01 Lymph # (Auto) 1.68 Mckinley # (Auto) 0.51 Eos # (Auto) 0.07 Baso # (Auto) 0.01 Sodium 140 Potassium 3.8 Chloride 107 Carbon Dioxide 26 Anion Gap 7.0 BUN 11 Creatinine 0.37 L Est Cr Clr Drug Dosing 166.7 Est GFR ( Amer) > 150.0 Est GFR (Non-Af Amer) > 150.0 BUN/Creatinine Ratio 29.0 H Glucose 78 Calcium 8.9 Phosphorus 4.2 Magnesium 2.1 (1) Anemia Anemia type: unspecified type Qualified Code(s): D64.9 - Anemia, unspecified (2) Cerebral palsy Cerebral palsy type: unspecified type Qualified Code(s): G80.9 - Cerebral palsy, unspecified
[2018-08-09] MEDS ORDERED: PROSOURCE NO CARB 30 ML/PKT PO ONE (16:33)
--- NOTE | 2018-08-09 16:49 | Progress Note ---
DATE: 08/09/2018 PULMONARY PROGRESS NOTE TIME: 3:35 p.m. SUBJECTIVE: The patient is a 22-year-old female with a longstanding history of cerebral palsy. She has been hospitalized since July 20. She had extensive pneumonia and atelectasis involving the left lung. She has been much of that time in the intensive care unit. She has overall gradually improved. Pseudomonas had been cultured out of the bronchial washings. It was felt that the patient likely needed noninvasive ventilator treatment at home. A Trilogy machine was ordered. The patient's mother has been instructed in its use. Her home care aides are apparently to get trained on the machine as well. This reportedly is intended for her to be worn at night time. Last night at approximately 2:30 a.m., the alarms were sounding off on the machine for apnea. The patient was not having any difficulty. Saturations were good. The Trilogy was stopped at that point. Reportedly, this was reported to the home care company providing the machine. I am not certain what they feel the issue is. The patient herself has been comfortable and not showing any signs of respiratory distress according to nursing staff. OBJECTIVE: GENERAL: The patient appears comfortable. She is nonverbal. She does not respond to stimuli in any formidable way. VITAL SIGNS: Temperature is 36.8. There have been no recent fevers. She does have a trach collar in place. She is on room air. Cardiac rate is 90 per minute. Rhythm regular. Blood pressure 88/58. Her pressures are typically low. PULMONARY: The patient continues to try to avoid turning on her right side. She was on the left side when I saw her. I had nursing staff turn her so that I could listen to the lung gong. Breath sounds are slightly better on the right than on the left side. Respiratory rate was 20 at the time of my exam. She usually runs in the mid 20s, but has not been in distress. Saturation 96% on room air. ABDOMEN: PEG tube is in place. EXTREMITIES: Somewhat contractured. No edema noted. LABORATORY DATA: White blood cell count today 7.31. Hemoglobin 12. Platelets 209,000. Sodium 140, potassium 3.8, chloride 107, bicarbonate 26. BUN 11 with creatinine 0.37. Last blood gas done 08/02/2018 showed pH 7.39, pCO2 of 39, pO2 of 58. It was unclear how much oxygen she was on at that time. Last chest x-ray was done 08/03/2018. There was persistence of some left perihilar and left base opacity. This would be minimal compared with what it had been earlier in her hospital stay. IMPRESSION: 1. Acute respiratory failure with hypoxia. 2. Left lung atelectasis. 3. Left pneumonia with pseudomonas. 4. Cerebral palsy. 5. Status post trach. COMMENTS AND RECOMMENDATIONS: The patient seems clinically to be doing reasonably well. She is still on imipenem/cilastatin. I am not certain how long the plan is to keep that going. She remains on her other baseline medications. This would include levalbuterol and budesonide b.i.d. by nebulizer. She is on Pulmozyme t.i.d. She is getting acetylcysteine. She is getting tobramycin. The home care company providing the Trilogy needs to assess the problem with the alarms from last evening. Reportedly, it is anticipated that she may be discharged in 2 days. I suspect her antibiotics are due to be completed at that time. I am not aware of her being on the dornase at home. There was kind of data should be verified prior to discharge. I do not believe that it should be continued unless she had been on long-term already.
[2018-08-09] MEDS: TRAZODONE HCL 50 MG TAB GT SCH (20:35)
[2018-08-10] MEDS: guaiFENesin SUGAR FREE 100 MG/5 ML UDC PO SCH ×4 (05:41→23:38)
[2018-08-10] MEDS: [UNRECOGNIZED DRUG - OTHER] PEG SCH ×4 (06:24→18:30)
[2018-08-10] MEDS: NUTRITIONAL SUPPLEMENT PEG SCH ×4 (06:24→18:30)
[2018-08-10] MEDS: TUBE FEEDING WATER FLUSH PO SCH ×4 (06:25→18:30)
--- NOTE | 2018-08-10 06:36 | Critical Care Progress Note ---
Date of Service August 10, 2018 Assessment & Plan (1) Admitted to intensive care unit: Reason Critically Ill: 22-year-old female with acute on chronic respiratory failure with hypoxemia secondary to acute mucous plugging of the LEFT main bronchus. NEURO - * History of CP and seizure disorder. At baseline * Continue home medications as prescribed. CARDIAC/VASCULAR - * No history of cardiovascular disease. * Continue to monitor on telemetry. RESPIRATORY - * Acute on chronic hypoxic respiratory failure: Stable - secondary to pneumonia with subsequent mucous plugging and atelectasis - s/p multiple bronchs this admission to remove left sided mucous plugs - completed a 14 day course of imipenem/cilastatin on 08/09 - pulmonary following - thank you for recommendations - continue pulmonary toilet including mucomyst, dornase dwight, albuterol and budesonide - pt will be discharged w/home trilogy device to use at night. Pt already has home oxygen set up if needed - alarm signalling apnea has been going off for the past few nights while pt was on Trilogy - when pt assessed, she is breathing normally and saturating well. Respiratory discussed this w/[facility] who recommended turning the apnea alarm off as the patient will not have this on at home GI/NUTRITION - * Continue with tube feeds * Continue with additional protein supplementation RENAL/LYTES - * Monitor lytes - * No Cota ENDO - * No history of diabetes or thyroid disease * BSGs per unit protocol. ISS. HEME - * Stable H&H. ID - * LEFT lower lobe pneumonia * Completed a 14 day course of imipenem, per ID's recommendations. LINES/IV ACCESS - * PIVs x2 DVT PROPHYLAXIS: * SCDs * Patient at baseline functional status. Chemical prophylaxis not indicated Anticipate d/c tomorrow (08/11) Thank you for allowing us to participate in the care of this patient. Please refer to my attending physician's documentation for any further recommendations. (2) Acute respiratory failure with hypoxemia: (3) Cerebral palsy: (4) Fever: (5) Pneumonia: (6) Seizure disorder: (7) Status post insertion of percutaneous endoscopic gastrostomy (PEG) tube: (8) Pseudomonas aeruginosa colonization: Supervising Physician Co-Signing Physician Notes Dr. Daily was resident physician during care of patient. I separately evaluated patient for canales portions of the history and the exam. I was present during the critical portion of medical decision making, and I discussed the case with the resident. I generally agree with the findings and plan. 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 Discussed briefly with Dr. Matthew we will be following the patient as an outpatient still facilitating training anticipate discharge tomorrow. Subjective No new concerns. Selvin has been on trilogy overnight and tolerating this well - yesterday she required the use of 3L of oxygen with her trilogy. Her home nursing staff have been trained in using trilogy, and they are anticipating her discharge tomorrow morning. Review of Systems Review of Systems: Unobtainable due to cognitive status Physical Exam Constitutional: + thin and comfortable; not in distress Respiratory: normal respiratory effort; no respiratory distress Auscultation: + diminished lung sounds (w/coarse breath sounds) Cardiovascular: Rate/Rhythm: regular rate and regular rhythm Gastrointestinal (Abdomen): Inspection/Auscultation: + abdomen abnormal to inspection (PEG tube in place) Percussion/Palpation: abdomen soft; abdomen nontender Skin: no rashes, warm and dry Results & Data Vital Signs (Past 12 Hours) Vital Signs Temp Pulse Pulse Resp BP Pulse Ox 08/10/18 06:00 92 H 21 95/67 L 95 08/10/18 05:35 81 19 96 08/10/18 05:00 85 24 81/59 L 96 08/10/18 04:00 36.6 C 97 H 20 94/66 L 96 08/10/18 03:00 80 21 85/69 L 100 08/10/18 02:00 81 17 89/59 L 100 08/10/18 01:52 87 17 100 08/10/18 01:00 91 H 13 103/63 97 08/10/18 00:00 36.8 C 81 21 82/49 L 94 08/09/18 23:10 79 17 94 08/09/18 23:00 78 17 82/52 L 94 08/09/18 22:33 22 08/09/18 22:00 80 24 83/50 L 94 08/09/18 21:00 98 H 28 H 116/77 95 08/09/18 20:00 36.8 C 101 H 28 H 87/57 L 97 08/09/18 19:51 90 08/09/18 19:32 97 H 22 93 06/17/19 19:00 83 22 91/57 L 96 Resident Activity Tracking Resident Involvement: Resident Care Provided Care Provided: Adult Hospital Medicine (1) Fever Fever type: unspecified Qualified Code(s): R50.9 - Fever, unspecified (2) Cerebral palsy Cerebral palsy type: unspecified type Qualified Code(s): G80.9 - Cerebral palsy, unspecified (3) Pneumonia Laterality: left Lung location: lower lobe of lung Pneumonia type: due to unspecified organism Qualified Code(s): J18.1 - Lobar pneumonia, unspecified organism
[2018-08-10] MEDS: ACETYLCYSTEINE 10% INHAL SOLN **DISPENSED FROM RESP. INH SCH ×2 (07:09→19:17)
[2018-08-10] MEDS: ALBUTEROL 0.083% NEBU SOLN 3 ML VIAL NEB SCH ×2 (07:09→19:16)
[2018-08-10] MEDS: BUDESONIDE 0.5 MG/2 ML VIAL (PULMICORT) INH SCH ×2 (07:09→19:18)
[2018-08-10] MEDS: DORNASE ALFA 2.5 ML AMP INH SCH ×3 (07:21→19:59)
[2018-08-10] MEDS: VALPROIC ACID SOLN 500 MG/10 ML UDC PO SCH ×3 (08:06→20:10)
[2018-08-10] MEDS: FLUOXETINE HCL 20 MG/5 ML GT SCH (08:06)
[2018-08-10] MEDS: ASCORBIC ACID 500 MG TAB PEG SCH ×2 (08:06→20:10)
[2018-08-10] MEDS: PROSOURCE NO CARB 30 ML/PKT PO SCH (08:06)
[2018-08-10] MEDS: LACTOBACILLUS ACIDOPHILUS 1 GM PACK PEG SCH ×3 (08:06→17:23)
[2018-08-10] MEDS: CETIRIZINE HCL 10 MG TABLET PO SCH (08:06)
[2018-08-10] MEDS: NITROFURANTOIN 25 MG/5 ML PO SCH (08:07)
[2018-08-10] MEDS: ZONISAMIDE 100 MG PO SCH ×2 (08:07→20:10)
[2018-08-10] MEDS: BACLOFEN 20 MG TAB PO SCH ×3 (08:09→20:10)
--- NOTE | 2018-08-10 11:45 | Progress Note ---
DATE: 08/10/2018 PULMONARY PROGRESS NOTE TIME: 11:25 a.m. SUBJECTIVE: The patient is about the same as prior. Nursing has reported no major problems overnight or during the day. She continues to have some secretions. They have been suctioned fairly readily. OBJECTIVE: GENERAL: The patient is nonverbal. She is ostensibly awake. She is not oriented of course. VITAL SIGNS: Temperature is 36.6. HEART: Cardiac rate is 93 per minute. Rhythm regular. Blood pressure 95/67. LUNGS: Auscultation reveals mild rhonchi in the upper airways anteriorly bilaterally. Breath sounds are mildly decreased on the left compared with the right. Respiratory rate 22. Saturation 95% on room air. ABDOMEN: Reveals the abdomen to be soft. PEG tube is in place. EXTREMITIES: Show contractures of the lower extremities, particularly. No edema noted. No labs done on this date. IMPRESSION: 1. Acute respiratory failure with hypoxia -- improved. 2. Left lung atelectasis -- improved. 3. Left pneumonia with pseudomonas -- improved. 4. Status post tracheostomy. 5. Cerebral palsy. COMMENTS AND RECOMMENDATIONS: The patient is about as stable as she is likely going to be. She is using Trilogy noninvasive ventilator at nighttime. There is a plan for tentative discharge tomorrow. Dr. Matthew who knows the patient well is rounding for Pulmonary tomorrow.
[2018-08-10] MEDS: TRAZODONE HCL 50 MG TAB GT SCH (20:10)
--- NOTE | 2018-08-10 20:53 | Hospitalist Progress Note ---
Date of Service August 10, 2018 Assessment & Plan (1) Acute respiratory failure with hypoxia and hypercapnia: RESOLVED. 2nd to extensive pseudomonas LLL pneumonia and collapse. s/p multiple bronchs early on during the stay with removal of left-sided mucous plugs. Needed mech vent early on in the stay, then weaned to Vapotherm via trach, and then ultimately trach collar. She worsened about 1 week ago necessitating transfer back to the ICU. She has been treated with Trilogy at night-time and trach collar/blow-by O2 during the day since transfer back to ICU. Her imipenem course was extended beyond 14 days (now 21-day course planned). Plan- Trilogy at . Preparations for transition home AM of 08/11/18. Appreciate pulmonary and critical care assistance along with social work assistance. (2) Bronchopneumonia due to Pseudomonas species: RESOLVED LLL. Completed 21 days of IV imipenem. Abx stopped. Continue tobramycin M/W/F for prophylaxis. (3) Cerebral palsy: nonambulatory, nonverbal at baseline. trach/PEG. chronic seizure disorder. scoliosis. continue all home chronic meds. (4) Thrombocytopenia: resolved. was likely due to infection. (5) Anemia: Resolved. Prior b12, folate, and iron levels normal. (6) Seizure disorder: cont home meds. no seizures while hospitalized. (7) Status post insertion of percutaneous endoscopic gastrostomy (PEG) tube: cont home feeding regimen tolerating well and w/o difficulties (8) DVT prophylaxis: SCDs care d/w social work and critical care team cont preparations for transition home tomorrow AM updated mother by phone 08/10/18 Subjective no issues today; uneventful. used Trilogy overnight - occasional periods of not tolerating it but largely doing ok with such. no significant trach secretions. tolerating tube feedings. caregivers in process of learning Trilogy. spoke with mother by phone - she anticipates d/c in the am. Review of Systems Review of Systems: Unobtainable due to cognitive status Physical Exam Constitutional: + thin and + altered mental status coughing during the visit ENMT: external ear and nose normal, oropharynx normal Mouth: + oropharynx abnormality (cleft palate) Neck: + tracheostomy present (clean) Respiratory: no respiratory distress, no retractions and does not use accessory muscles Auscultation: + diminished lung sounds (left base ); no crackles and no wheezes Cardiovascular: Rate/Rhythm: regular rate and regular rhythm Heart Sounds: normal S1 and normal S2; no murmur Vessels: posterior tibial pulses present and dorsalis pedis pulses present; no JVD Extremities: no edema Gastrointestinal (Abdomen): normal bowel sounds, soft, nontender, no hepatosplenomegaly Psychiatric: Orientation: + not oriented x 3 Results & Data Vital Signs (Past 12 Hours) Vital Signs Temp Pulse Pulse Resp BP BP Pulse Ox 08/10/18 20:00 36.6 C 94 H 29 H 103/67 90 08/10/18 19:53 87 08/10/18 19:28 112 H 19 94 08/10/18 19:00 99 H 30 H 113/76 97 08/10/18 18:01 89 27 H 100/75 97 08/10/18 18:00 89 30 H 97 08/10/18 17:01 101 H 30 H 98/59 L 95 08/10/18 17:00 102 H 31 H 94 08/10/18 16:02 104 H 31 H 95 08/10/18 16:01 102 H 33 H 90/56 L 95 08/10/18 16:00 102 H 34 H 94 08/10/18 15:01 102 H 34 H 88/55 L 93 08/10/18 15:00 100 H 33 H 95 08/10/18 14:10 98 H 24 95 08/10/18 14:01 99 H 30 H 94/59 L 95 08/10/18 14:00 98 H 24 96 08/10/18 13:01 88 29 H 86/62 L 95 08/10/18 13:00 91 H 19 95 08/10/18 12:01 92 H 28 H 88/60 L 96 08/10/18 12:00 97 H 22 97 08/10/18 11:55 95 H 23 106/68 97 08/10/18 11:02 100 H 17 106/68 94 08/10/18 11:00 93 H 26 H 95 08/10/18 10:51 87 24 104/66 95 08/10/18 10:50 90 21 104/66 95 08/10/18 10:01 91 H 26 H 94 08/10/18 10:00 98 H 27 H 104/66 94 08/10/18 09:01 95 H 27 H 98 06/18/19 09:00 99 H 27 H 115/67 98 Laboratory Results Laboratory Results - last 24 hr 08/11/18 08/11/18 04:23 04:23 WBC 5.15 RBC 3.71 L Hgb 12.6 Hct 37.3 MCV 100.5 H MCH 34.0 MCHC 33.8 RDW Std Deviation 45.4 RDW Coeff of [place] 12.5 Plt Count 194 MPV 8.7 Immature Gran % (Auto) 0.4 Neut % (Auto) 62.9 Lymph % (Auto) 26.8 Toombs % (Auto) 8.5 Eos % (Auto) 1.4 Baso % (Auto) 0.0 Immature Gran # (Auto) 0.02 Neut # (Auto) 3.24 Lymph # (Auto) 1.38 [place]ombs # (Auto) 0.44 Eos # (Auto) 0.07 Baso # (Auto) 0.00 Sodium 138 Potassium 4.3 Chloride 106 Carbon Dioxide 27 Anion Gap 5.0 BUN 11 Creatinine 0.42 L Est Cr Clr Drug Dosing 152.2 Est GFR ( Amer) > 150.0 Est GFR (Non-Af Amer) 146.5 BUN/Creatinine Ratio 27.1 H Glucose 80 Calcium 9.2 PG Care Time/CCT Total # of Minutes Spent Total Time Spent with Patient: Total time spent is greater than 50% in coordination of care (as documented) at patient's floor/unit and/or counseling patient: (1) Anemia Anemia type: unspecified type Qualified Code(s): D64.9 - Anemia, unspecified (2) Cerebral palsy Cerebral palsy type: unspecified type Qualified Code(s): G80.9 - Cerebral palsy, unspecified
[2018-08-11 04:01] VITALS: TEMP 98.2
[2018-08-11 04:32] LABS: Eosinophils # (auto) 0.07 K/uL (0-0.5); Eosinophils % (auto) 1.4 %; Hematocrit (blood only) 37.3 % (37-47); Hemoglobin 12.6 g/dL (12.0-16.0); Immature Granulocytes # (auto) 0.02 K/uL (0.00-0.02); Immature Granulocytes % (auto) 0.4 %; Lymphocytes # (auto) 1.38 K/uL (1.2-3.4); Lymphocytes % (auto) 26.8 %; Mean Corpuscular Hgb Conc 33.8 g/dL (32-36); Mean Corpuscular Volume 100.5 fL (80-100); Mean Platelet Volume 8.7 fL (7.4-10.4); Monocytes # (auto) 0.44 K/uL (0.11-0.59); Monocytes % (auto) 8.5 %; Neutrophils # (auto) 3.24 K/uL (1.4-6.5); Neutrophils % (auto) 62.9 %; Platelet Count 194 K/uL (130-400); RDW Coefficient of Variation 12.5 % (11.5-14.5); RDW Standard Deviation 45.4 fL (36.4-46.3); Red Blood Count 3.71 M/uL (4.2-5.4); White Blood Count 5.15 K/uL (4.8-10.8)
[2018-08-11 04:50] LABS: BUN Creatinine Ratio 27.1 (10-20); Blood Urea Nitrogen 11 mg/dl (7-18); Calcium 9.2 mg/dl (8.5-10.1); Carbon Dioxide 27 mmol/L (21-32); Chloride 106 mmol/L (98-107); Creatinine Clr Calc Pharmacy 152.2 ml/min; Est GFR (African American) > 150.0; Est GFR (Non-African American) 146.5; Glucose 80 mg/dl (70-99); Potassium 4.3 mmol/L (3.5-5.1); Sodium 138 mmol/L (136-145)
[2018-08-11] MEDS: guaiFENesin SUGAR FREE 100 MG/5 ML UDC PO SCH (05:36)
[2018-08-11] MEDS: [UNRECOGNIZED DRUG - OTHER] PEG SCH (06:15)
[2018-08-11] MEDS: NUTRITIONAL SUPPLEMENT PEG SCH (06:15)
[2018-08-11] MEDS: TUBE FEEDING WATER FLUSH PO SCH (06:15)
--- NOTE | 2018-08-11 06:40 | Critical Care Progress Note ---
Date of Service August 11, 2018 Assessment & Plan (1) Admitted to intensive care unit: Reason Critically Ill: 22-year-old female with acute on chronic respiratory failure with hypoxemia secondary to pneumonia with acute mucous plugging of the LEFT main bronchus. NEURO - * History of CP and seizure disorder. At baseline * Continue home medications as prescribed. CARDIAC/VASCULAR - * No history of cardiovascular disease. * Continue to monitor on telemetry. RESPIRATORY - * Acute on chronic hypoxic respiratory failure: Resolved - secondary to pneumonia with subsequent mucous plugging and atelectasis - s/p multiple bronchs this admission to remove left sided mucous plugs - completed a 14 day course of imipenem/cilastatin on 08/09 - patient underwent a bronch on 08/11, prior to d/c to evaluate for mucous plugging given desaturation overnight - this was normal - pulmonary following - continue home pulmonary regimen including mucomyst, albuterol and budesonide - pt will be discharged today w/home trilogy device to use at night. Her home nursing team has been trained on how to use this. Suspect anatomical/neuromuscular component to her recurrent atelectasis. Pt already has home oxygen set up if needed GI/NUTRITION - * Continue with tube feeds * Continue with additional protein supplementation RENAL/LYTES - * No electrolyte abnormalities noted prior to d/c - * No Cota ENDO - * No history of diabetes or thyroid disease * BSGs per unit protocol. ISS. HEME - * Stable H&H. ID - * LEFT lower lobe pneumonia * Completed a 14 day course of imipenem, per ID's recommendations. LINES/IV ACCESS - * PIVs x2 DVT PROPHYLAXIS: * SCDs * Patient at baseline functional status. Chemical prophylaxis not indicated Thank you for allowing us to participate in the care of this patient. Please refer to my attending physician's documentation for any further recommendations. (2) Acute respiratory failure with hypoxemia: (3) Cerebral palsy: management per primary team (4) Fever: (5) Pneumonia: (6) Seizure disorder: (7) Status post insertion of percutaneous endoscopic gastrostomy (PEG) tube: (8) Pseudomonas aeruginosa colonization: Supervising Physician Co-Signing Physician Notes Dr. Daily was resident physician during care of patient. I separately evaluated patient for canales portions of the history and the exam. I was present during the critical portion of medical decision making, and I discussed the case with the resident. I generally agree with the findings and plan. 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 Discussed briefly with Dr. Matthew we will be following the patient as an outpatient. Bronchoscopy for reports of increased cough and secretions, bronchoscopy very reassuring and unremarkable. Anticipate discharge later today Subjective Selvin was only able to tolerate the trilogy for a couple of hours last night, and was eventually placed back on her trach collar. She did desaturate into the 80s whilst on her trach collar. Her trach was suctioned and her FiO2 was increased to 28. She has done well since then. No other acute events. Review of Systems Review of Systems: Unobtainable due to cognitive status Physical Exam Constitutional: + thin and comfortable; not in distress Respiratory: normal respiratory effort; no respiratory distress Auscultation: + diminished lung sounds (w/coarse breath sounds) Cardiovascular: Rate/Rhythm: regular rate and regular rhythm Gastrointestinal (Abdomen): Inspection/Auscultation: + abdomen abnormal to inspection (PEG tube in place) Percussion/Palpation: abdomen soft Skin: no rashes, warm and dry Results & Data Vital Signs (Past 12 Hours) Vital Signs Temp Pulse Pulse Resp BP Pulse Ox Pulse Ox 08/11/18 06:00 101 H 24 99/75 L 93 08/11/18 05:00 97 H 18 98/63 L 93 08/11/18 04:01 36.8 C 77 22 93/62 L 91 08/11/18 03:14 91 H 19 86 L 08/11/18 03:00 87 17 95/63 L 88 L 08/11/18 02:00 96 H 26 H 115/63 90 08/11/18 01:00 95 H 19 110/69 94 08/11/18 00:00 36.4 C L 85 23 108/67 93 08/10/18 23:38 15 08/10/18 23:00 83 15 94/67 L 94 08/10/18 22:11 87 21 92 08/10/18 22:00 91 H 19 103/54 L 91 08/10/18 21:00 91 H 24 93/58 L 92 08/10/18 20:00 36.6 C 94 H 29 H 103/67 90 08/10/18 19:53 87 08/10/18 19:28 112 H 19 94 08/10/18 19:00 99 H 30 H 113/76 97 Resident Activity Tracking Resident Involvement: Resident Care Provided Care Provided: Adult Hospital Medicine (1) Fever Fever type: unspecified Qualified Code(s): R50.9 - Fever, unspecified (2) Cerebral palsy Cerebral palsy type: unspecified type Qualified Code(s): G80.9 - Cerebral palsy, unspecified (3) Pneumonia Laterality: left Lung location: lower lobe of lung Pneumonia type: due to unspecified organism Qualified Code(s): J18.1 - Lobar pneumonia, unspecified organism
[2018-08-11] MEDS: ALBUTEROL 0.083% NEBU SOLN 3 ML VIAL NEB SCH (07:16)
[2018-08-11] MEDS: ACETYLCYSTEINE 10% INHAL SOLN **DISPENSED FROM RESP. INH SCH (07:17)
[2018-08-11] MEDS: LACTOBACILLUS ACIDOPHILUS 1 GM PACK PEG SCH (07:27)
[2018-08-11] MEDS: NITROFURANTOIN 25 MG/5 ML PO SCH (07:27)
[2018-08-11] MEDS: BACLOFEN 20 MG TAB PO SCH (07:27)
[2018-08-11] MEDS: ASCORBIC ACID 500 MG TAB PEG SCH (07:28)
[2018-08-11] MEDS: PROSOURCE NO CARB 30 ML/PKT PO SCH (07:28)
[2018-08-11] MEDS: VALPROIC ACID SOLN 500 MG/10 ML UDC PO SCH (07:28)
[2018-08-11] MEDS: FLUOXETINE HCL 20 MG/5 ML GT SCH (07:28)
[2018-08-11] MEDS: ZONISAMIDE 100 MG PO SCH (07:31)
[2018-08-11] MEDS: CETIRIZINE HCL 10 MG TABLET PO SCH (07:31)
[2018-08-11] MEDS: BUDESONIDE 0.5 MG/2 ML VIAL (PULMICORT) INH SCH (07:40)
[2018-08-11] MEDS: DORNASE ALFA 2.5 ML AMP INH SCH (07:45)
[2018-08-11 07:51] VITALS: BP 101/63
[2018-08-11] MEDS: TOBRAMYCIN SULF 40 MG/ML 2 ML VIAL INH SCH (07:51)
--- NOTE | 2018-08-11 08:56 | Procedure Note ---
Procedure Note: Bronchoscopy Procedure Procedure date: August 11, 2018 Procedure: fiberoptic bronchoscopy Pre-procedure indication: Increasing secretion burden Post-procedure Diagnosis: same as above Prior to Procedure: Informed Consent: The risks, benefits, indications, potential complications, and alternatives were explained to the patient's mother and informed consent obtained. Attending Staff: Lavon Tariq DO Resident/APC: Queenie Fields Skin Prep: Not applicable Anesthesia: Lidocaine: 15 mg The identity of the patient was confirmed and a bedside time out was performed. Description of Procedure: Fiberoptic bronchoscopy was performed via endotracheal tube. Bronchioalveolar lavage right lower lobe was performed. Findings included: Clear thin secretions no evidence of mucoid impaction, no evidence of inflammation pale pearly white airways. Complications: None Specimens: None Estimated blood loss: Zero
[2018-08-11 09:03] VITALS: PULSE 104
[2018-08-11 09:07] VITALS: O2SAT 91
--- NOTE | 2018-08-11 11:30 | Progress Note ---
DATE: 08/11/2018 TIME: 0930 hours. Chart reviewed, patient examined. The patient is scheduled to go home this morning. I spoke to her mother, Martha, and she is tolerating her Trilogy unit set at the following settings: AVAPS rate of 5, tidal volume 350, IPAP max 20 cm, IPAP minimum 10, CPAP rate of 8, respiratory rate of 12, inspiratory time 1 second. We have adjusted her cough assist device to a -30 to +30 setting for home use. The patient underwent bronchoscopy this morning with minimal findings. Her home regimen will include the use of Mucomyst, albuterol, and budesonide along with inhaled Talib 3 times weekly. The patient did complete a 14-day course of imipenem for left lower lobe atelectasis/pneumonia. She is also on O2 supplementation via trach collar. Her tracheostomy tube was replaced during this hospitalization and she was treated for bronchopneumonia secondary to pseudomonas species. The Mucomyst is 10% 3 mL b.i.d. and albuterol vial 2.5 mg every 4 hours as needed, but at least b.i.d. as well as budesonide/Pulmicort Respules 0.5 mg b.i.d. She has also been placed on Pulmozyme 2.5 mL t.i.d. via trach and she receives her enteral feeding 350 mL at 0700, 1130, 1500, and 1900 along with MiraLax powder 8.5 grams daily p.r.n. and sterile water flush for the PEG tube. She is on inhaled Talib 80 mg on Thursday, Thursday, and Thursday at 0800 and 1700.
--- NOTE | 2018-08-20 23:33 | Discharge Summary ---
Date of Service date of admission - July 20, 2018 date of discharge - August 11, 2018 Admission HPI Per Admitting Provider Selvin Alcala is a 22yo female with history of CP, trach, and PEG. History obtained from family at bedside as patient is non-communicative. Patient with elevated temperature yesterday, 99.1 axillary. Also with decreased saturations of 86% and increase in tracheal secretions. Patient had O2 placed overnight with trach collar which is unusual for her. Upon arrival to [facility] she had a chest x-ray showing a LLL pneumonia. Principal Diagnosis acute hypoxic and hypercapneic respiratory failure 2nd to LLL pseudomonas p neumonia Discharge Exam Constitutional + thin and + altered mental status ENMT Mouth: + oropharynx abnormality (cleft palate) Neck + tracheostomy present (clean) Respiratory no respiratory distress, no retractions and does not use accessory muscles Auscultation: + diminished lung sounds (left base ); no crackles and no wheezes Cardiovascular Rate/Rhythm: regular rate and regular rhythm Heart Sounds: normal S1 and normal S2; no murmur Vessels: posterior tibial pulses present and dorsalis pedis pulses present; no JVD Extremities: no edema Gastrointestinal (Abdomen) normal bowel sounds, soft, nontender, no hepatosplenomegaly Neurologic contractures, legs more so than arms; eyes open; nonverbal, does not follow commands Psychiatric Orientation: + not oriented x 3 Discharge Data Allergies Allergy/AdvReac Type Severity Reaction Status Date / Time No Known Allergies Allergy Unverified 07/20/18 10:41 Consultations 1. pulmonary 2. infectious disease Ordered Studies 1. CT chest - IMPRESSION: 1. No evidence of acute pulmonary embolism 2. Left aortic arch with an aberrant right subclavian artery 3. Left mainstem bronchus occlusion. There is an atelectatic fluid-filled left lung. Given the patient's age, the findings are likely secondary to mucous plugging or secretions from pneumonia. Pulmonary consultation is recommended in follow-up. 2. multiple bronchoscopies for removal of left-sided mucous plugs (multiple providers) 3. [id number] ultrasound Hospital Course (1) Acute respiratory failure with hypoxia and hypercapnia: 2nd to extensive pseudomonas LLL pneumonia and atelectasis/collapse of the left base. s/p multiple bronchoscopies during the stay with removal of left-sided mucous plugs. Needed mech vent early on in the stay, then weaned to Vapotherm via trach, and then ultimately trach collar. Following this improvement she was transitioned from the ICU back to the telemetry unit. Unfortunately her clinical status worsened necessitating transfer back to the ICU. The worsening was likely recurrent LLL collapse from mucous plugging. She spent about 1 more week in the ICU and was finally discharged home with her mother. In the final stages of her stay she received Trillogy at night-time and trach collar/blow-by O2 during the day. She received a 21-day course of imipenem while hospitalized. She was not prescribed antibiotics at discharge. Pulmonary advised night-time Trilogy at home and this was set up for her prior to discharge. Mother and all home caregivers were given instruction on the home Trilogy unit. Settings at discharge - rate of 12, TV 350, PEEP 8, O2 blended to maintain O2 sats 90% or greater (usually received 30% FiO2 while here). (2) Bronchopneumonia due to Pseudomonas species: LLL -- RESOLVED. Completed 21 days of IV imipenem. She was also maintained on inhaled tobramycin Thu/Thu/Thu for prophylaxis. This will be continued at her home. (3) Cerebral palsy: nonambulatory, nonverbal at baseline. trach/PEG. chronic seizure disorder. scoliosis. She will continue all home chronic meds. (4) Thrombocytopenia: resolved. was likely due to infection. discharge platelet count was 194. (5) Anemia: Resolved. Discharge hemoglobin was 12.6. Prior b12, folate, and iron levels were normal. (6) Seizure disorder: continue home meds. no seizures while hospitalized. (7) Status post insertion of percutaneous endoscopic gastrostomy (PEG) tube: cont home feeding regimen. tolerating well and without difficulties. Total Time Total Time Spent Total Time Spent (In Minutes): 45 Total Time Includes: Examination of the Patient, Discharge Planning, Medication Reconciliation and Communication With Other Providers Discharge Plan Discharge Items Patient Disposition: Home - Home Health Services Reason For Visit: PNA Discharge Diagnosis: Left lower lobe pneumonia due to Pseudomonas Condition: Good Discharge Goals: Improve disease control, Improve function and Therapeutic intervention Activity: Resume your previous activity Non-emergency contact: Primary Care Provider and [employer] Call non-emergency contact if: you have any medication questions, your symptoms worsen and your temperature is above 100.5 Follow-up/Referrals: Chad Matthew MD [Family Provider] - (see Dr Matthew within 2 weeks) Janet Pearce MD [Primary Care Provider] - Diet: Enteral nutrition and Nothing by mouth Addtl Provider Instructions: From Jatinder Garcia - hospitalist - Selvin was treated for left-sided pneumonia over her lengthy stay. She received 21 days of IV antibiotics for this along with multiple bronchoscopies to remove impacted mucous. Later in her stay it was felt she would benefit from a Trilogy device at night- time to help prevent atelectasis (collapsed lung tissue, which can increase the chances of pneumonia). The Trilogy will also take the stress off of her loco thing for a good portion of the day. During the day-time Selvin can remain off the device and simply breathe humidified air. At this time we recommend Selvin stay on the Tobramycin nebs 3 days a week for preventive purposes. We also recommend ongoing use of mucomyst neb treatments - 3ml twice a day - to keep mucous thin and to promote exiting of mucous from the lungs. All other medications are the same. Tube feedings are also unchanged at this time. Follow-up -- see Dr Matthew within 1-2 weeks Return to [facility] if -- * fevers of greater than 100.5 degrees occur * there is increasing oxygen requirements, labored breathing, worsening secretions from the trach, etc * there is severe diarrhea * there is severe vomiting * any other concerns Prescriptions: Continued albuterol sulfate 2.5 mg /3 mL (0.083 %) solution for nebulization 2.5 mg inhalation Q4H PRN (Reason: Wheezing/ shortness of breath) RF: 0 trazodone 50 mg tablet 50 mg feeding tube HS RF: 0 fluoxetine 10 mg tablet 10 mg feeding tube DAILY RF: 0 baclofen 20 mg tablet 20 mg feeding tube TID RF: 0 nitrofurantoin 25 mg/5 mL suspension 50 mg feeding tube DAILY RF: 0 zonisamide 100 mg capsule 200 mg feeding tube QAM RF: 0 zonisamide 100 mg capsule 100 mg feeding tube HS RF: 0 ascorbic acid (vitamin C) [Vitamin C] 500 mg Tablet 500 mg feeding tube BID RF: 0 valproic acid (as sodium salt) 250 mg/5 mL solution 550 mg feeding tube TID RF: 0 acetylcysteine 100 mg/mL (10 %) solution 3 ml inhalation BID RF: 0 budesonide 0.5 mg/2 mL suspension for nebulization 2 ml inhalation BID RF: 0 polyethylene glycol 3350 17 gram/dose powder 8.5 g feeding tube DAILY PRN (Reason: bowel regiment) RF: 0 clonazepam 0.5 mg tablet,disintegrating 0.5 mg feeding tube DIRECTED RF: 0 Lactobacillus acidophilus Tablet,Chewable 4 tab feeding tube TIDM RF: 0 guaifenesin 100 mg Granules In Packet 100 mg PO Q6H RF: 0 cetirizine 1 mg/mL solution 10 mg feeding tube DAILY RF: 0 tobramycin 28 mg Capsule, W/Inhalation Device 4 cap INHALATION Q12H RF: 0 Boost 0.04 gram- 1 kcal/mL Liquid 1.5 ea PO QID@,1129,,19 RF: 0 water Liquid 120 ea PO QID@,1129,,19 RF: 0 Discontinued glycopyrrolate 1 mg tablet 0.5 mg feeding tube BID RF: 0 acetylcysteine 100 mg/mL (10 %) solution RF: 0 Stand-Alone Forms: [facility] Discharge Orders: Discharge Order (Routine); Ordered 08/11/18 Ordered By: Jatinder Garcia Admission Data Admit Date/Time: 07/20/18 11:51 Attending Provider: Jatinder Garcia Admit Provider: Soumya Krueger Primary Care Provider: Janet Pearce Other Providers: Joseph Reid ; Soumya Krueger ; Kofi Rogers ; Sunil Pierre ; Nelson Lopez Service: Intensive Care Unit Other Interventions: Discharge Summary Assessment (RN) Last Done: 08/11/18 08:58 Pending Studies at Discharge: No DC Date/Time DO NOT enter until pt leaves facility: 08/11/18 10:15
== END 2018-08-11 10:15 | disposition home health service (06) | DRG 193 ==
LOC: ED 08:57 → 2E 11:51 → SUATTDRO 11:51 → 2E 13:01 → 1E 07-22 19:03 → 2E 07-31 18:24 → 1E 08-02 20:00

== ENCOUNTER 2018-11-15 10:10 | Inpatient (IN) ==
[2018-11-15] MEDS ORDERED: ALBUT/IPRATROP 3MG/0.5MG NEB 3 ML VIAL NEB STA (10:56)
[2018-11-15] MEDS ORDERED: SODIUM CHLORIDE 0.9% 1000ML 500 ML IV ONE ×3 (10:56→17:11)
[2018-11-15] MEDS ORDERED: ACETAMINOPHEN 1,000 MG/100 ML VIAL IV STA (10:56)
[2018-11-15] MEDS ORDERED: PIPERACILLIN/TAZOBACTAM 4.5 GM/120 ML BAG IV ONE (11:02)
--- NOTE | 2018-11-15 12:14 | XRay Report ---
SINGLE VIEW CHEST CLINICAL HISTORY: Cough. FINDINGS: An AP, portable, upright chest radiograph is compared to study dated 09/16/2018. The examina tion is significantly degraded by portable technique and patient rotation. A tracheostomy is in place . The cardiomediastinal silhouette is unremarkable. Airspace consolidation is seen at the left lung b ase and at the left apex. There is a small left pleural effusion. The right lung is grossly clear. No pneumothorax is seen. The bony thorax is grossly intact. IMPRESSION: There is left basilar and left apical airspace consolidation with a small left pleural ef fusion. The appearance is typical for pneumonia/aspiration pneumonitis. Clinical correlation will be required and radiographic follow-up to resolution is recommended. Electronically signed by: Wily Nowak M.D. 11/15/2018 12:13 PM
[2018-11-15 12:30] LABS: Basophils # (auto) 0.03 K/uL (0-0.2); Basophils % (auto) 0.2 %; Hemoglobin 12.3 g/dL (12.0-16.0); Immature Granulocytes # (auto) 0.06 K/uL (0.00-0.02); Immature Granulocytes % (auto) 0.4 %; Lymphocytes # (auto) 0.58 K/uL (1.2-3.4); Lymphocytes % (auto) 3.4 %; Mean Corpuscular Hemoglobin 33.6 pg (25-34); Mean Corpuscular Hgb Conc 34.2 g/dL (32-36); Mean Corpuscular Volume 98.4 fL (80-100); Mean Platelet Volume 9.9 fL (7.4-10.4); Monocytes # (auto) 2.01 K/uL (0.11-0.59); Monocytes % (auto) 11.9 %; Neutrophils # (auto) 14.26 K/uL (1.4-6.5); Neutrophils % (auto) 84.1 %; Platelet Count 103 K/uL (130-400); RDW Coefficient of Variation 13.1 % (11.5-14.5); RDW Standard Deviation 46.8 fL (36.4-46.3); Red Blood Count 3.66 M/uL (4.2-5.4); White Blood Count 16.94 K/uL (4.8-10.8)
--- NOTE | 2018-11-15 13:06 | History & Physical Report ---
Date of Service November 15, 2018 Assessment & Plan (1) Pneumonia: Noted on CXR Zosyn started in the ED, will continue Blood and trach cx done in the ED Febrile with elevated WBC Tachycardic Flu neg Lungs sounds reported to have improved s/p nebs, will continue scheduled Pt's last admission for same was 07/2018. She was noted to have mucous plugging at that time that required further intervention Pt takes mucomyst at baseline, will continue Follows with Dr. Matthew if needed (2) History of cerebral palsy: Pt has a trach collar and home vent at baseline PEG tube, family states that [facility] does not have the formula that she uses. They will bring in her home TF and administer as they do at home (3) History of tracheostomy: Home vent (4) Seizure disorder: continue home meds (5) DVT prophylaxis: Pt is immobile at baseline, will not add further proph to avoid GIB History of Present Illness Primary Care Provider: Janet Pearce MD 23 y/o F who was brought to the ED by her mother and other caregivers for martinez dden onset of ill appearance. Mother states that pt was fine until yesterday when she was noted to have a cough and increased secretions. The secretions were also more thick. No blood noted. Pt has a home vent system and they provide respiratory care for her, so they were trying to suction her more and this did seem to help some. This morning pt was noted to have a fever and worsening cough, so she was brought to the ED. Family states that this how pt usually presents. She will appear fine and then suddenly "crash". She has been tolerating her TF without issue. Pt is nonverbal at baseline and does not have any nonverbal methods of communicating issues or pain to family. Pt has a hx of seizures. Family feels they are well controlled. Her last seizure was about 4 months ago as far as they are aware. They state that pt's VS do not change if she is seizing and that the only way to tell "is to be looking right at her". Family states that there is no correlation to seizures with infections. Pt can have a seizure at any time without any clear association with other health issues. Pt was started on nebs, zosyn in the ED. ED physician feels lung sounds are improved over arrival presentation. Allergies Allergy/AdvReac Type Severity Reaction Status Date / Time No Known Allergies Allergy Unverified 11/15/18 11:02 Home Medications Home Medications Medication Instructions Recorded Confirmed Type acetylcysteine 3 ml INHALATION BID 07/20/18 11/15/18 History albuterol sulfate 2.5 mg INHALATION Q4H PRN 07/20/18 11/15/18 History baclofen 20 mg FEEDING TUBE TID 07/20/18 11/15/18 History budesonide 2 ml INHALATION BID 07/20/18 11/15/18 History cetirizine 10 mg FEEDING TUBE DAILY 07/20/18 11/15/18 History clonazepam 0.5 mg FEEDING TUBE DIRECTED 07/20/18 11/15/18 History polyethylene glycol 3350 8.5 g FEEDING TUBE DAILY PRN 07/20/18 11/15/18 History tobramycin 4 cap INHALATION Q12H 07/20/18 11/15/18 History valproic acid (as sodium salt) 550 mg FEEDING TUBE TID 07/20/18 11/15/18 History zonisamide 100 mg FEEDING TUBE HS 07/20/18 11/15/18 History zonisamide 200 mg FEEDING TUBE QAM 07/20/18 11/15/18 History Boost 1.5 ea PO QID@07,1130,,07/28/18 11/15/18 History water 120 ea PO QID@07,1130,,07/28/18 11/15/18 History trazodone 50 mg FEEDING TUBE HS 09/16/18 11/15/18 History nitrofurantoin 25 mg/5 mL oral 50 mg FEEDING TUBE DAILY #230 ml 11/08/18 11/15/18 Rx suspension fluoxetine 20 mg FEEDING TUBE DAILY 11/15/18 11/15/18 History Past Med/Surg History Medical History Hypoxia (Acute) PNA (pneumonia) (Acute) Pleural effusion (Acute) Cerebral palsy Seizure disorder Surgical History S/P percutaneous endoscopic gastrostomy (PEG) tube placement Status post tracheostomy Family History Other Family history non-contributory Social History Preferred Language: Hebrew Communication Ability: Unable Beliefs That Will Affect Care: None Current Living Situation: Parent Current Living Situation Comment: parent Feels Safe at Home: Yes Smoking Status: Never smoker Hx Alcohol Use: No Hx Substance Use: No Review of Systems Review of Systems: Pertinent positives and negatives reviewed in HPI--all others negative Physical Exam Constitutional: WD/WN, vitals as above Eyes: + anicteric sclerae and + EOM movement deficit Neck: normal visual inspection and trachea midline Respiratory: normal respiratory effort; no respiratory distress, no labored breathing and no cough Auscultation: no wheezes on trach collar Cardiovascular: Rate/Rhythm: regular rhythm and + tachycardic Gastrointestinal (Abdomen): Inspection/Auscultation: abdomen not distended Percussion/Palpation: abdomen soft; abdomen nontender Musculoskeletal: Head/Neck/Chest: normocephalic and head atraumatic negative for edema, peripheral pulses intact Skin: no rashes, warm and dry Neurologic: eyes are open, does not respond to verbal or physical stimuli Psychiatric: Pt is nonverbal, does not make any sort of sounds, no interaction whatsoever during exam Results & Data Vital Signs (Past 12 Hours) Vital Signs Temp Pulse Pulse Resp Pulse Ox 11/15/18 12:45 130 H 42 H 85 L 11/15/18 12:30 125 H 29 H 86 L 11/15/18 12:15 135 H 36 H 86 L 11/15/18 12:00 130 H 44 H 91 11/15/18 11:50 126 H 26 H 93 11/15/18 11:45 136 H 34 H 92 11/15/18 11:30 130 H 54 H 95 11/15/18 11:15 120 H 31 H 90 11/15/18 11:00 128 H 34 H 96 11/15/18 10:45 127 H 63 H 96 11/15/18 10:42 129 H 38 H 85 L 11/15/18 10:39 128 H 33 H 91 11/15/18 10:13 37.3 C 130 H 20 95 Diagnostic Findings CXR: L PNA Code Status & VTE Plan Code Status Mother states that they are fine with any sort of respiratory interventions and IV abx. No form of cardiac resuscitation. VTE Prophylaxis Plan VTE Prophylaxis will be ordered: Yes PG Care Time/CCT Total # of Minutes Spent Total Time Spent with Patient: Total time spent is greater than 50% in coordination of care (as documented) at patient's floor/unit and/or counseling patient: (1) Pneumonia Laterality: left Lung location: lower lobe of lung Pneumonia type: due to unspecified organism Qualified Code(s): J18.1 - Lobar pneumonia, unspecified organism
[2018-11-15 13:23] LABS: Alanine Aminotransferase 12 U/L (12-78); Aspartate Aminotransferase 12 U/L (15-37); BUN Creatinine Ratio 34.8 (10-20); Blood Urea Nitrogen 16 mg/dl (7-18); Calcium 8.2 mg/dl (8.5-10.1); Carbon Dioxide 21 mmol/L (21-32); Chloride 102 mmol/L (98-107); Est GFR (African American) > 150.0; Est GFR (Non-African American) 142.2; Glucose 110 mg/dl (70-99); Potassium 3.9 mmol/L (3.5-5.1); Sodium 133 mmol/L (136-145)
[2018-11-15 13:26] LABS: Albumin Globulin Ratio 0.7 (0.9-2); Alkaline Phosphatase 79 U/L (45-117); Bilirubin,Total 0.5 mg/dl (0.2-1); Globulin 4.2 gm/dl (2.5-4.0); Total Protein 7.2 gm/dl (6.4-8.2)
[2018-11-15 13:28] LABS: Appearance Urine Clear (Clear); Bacteria Urine Automated Negative (Negative); Bilirubin Urine Negative (Negative); Blood Urine Trace (Negative); Color Urine Dark Yellow; Epithelial Cell Urine Auto 20-30 /lpf (0-5); Glucose Urine UA Negative (Negative); Ketones Urine Trace (Negative); Leukocyte Esterase Urine Negative (Negative); Nitrite Urine Negative (Negative); Protein Urine Negative (Negative); Urobilinogen Urine Negative (Negative)
--- NOTE | 2018-11-15 13:57 | Emergency Department Note ---
Entered by Chin Eric acting as a scribe for History of Present Illness General Chief complaint: Respiratory Distress Stated complaint: Respiratory Distress Time Seen by Provider: 11/15/18 10:41 Source: family History of Present Illness Provider complaint: Respiratory distress Onset (ago): day(s) 1 Location: chest Severity: similar to prior episodes Pain Consistency: + constant Relieved By: + none Exacerbated By: + none Associated symptoms: + cough, + fever/chills, + shortness of breath and + other (Congestion) The patient is a 23 year old female with who presents to the Emergency Room with complaints of constant acute on chronic respiratory issues that started yesterday, per the mother. The patient has a history of cerebral palsy which has caused the chronic pulmonary issues. The mother notes her symptoms started suddenly with increased congestion and shortness of breath, everything started yesterday. The patient also has been running a low grade fevers around 100.4F. The mother notes that she had to put the patient on 5L of oxygen overnight, which is not normal for her on a daily basis, however they have had to use oxygen temporarily before. She also mentioned that the patient's brother was sick last week with a sore throat. The patient has not received any medications for her fever. The patient follows with Dr. Matthew for pulmonology. HPI is limited secondary to patient's cognitive status. Home Medications Home Medications Medication Instructions Recorded Confirmed Type acetylcysteine 3 ml INHALATION BID 07/20/18 11/15/18 History albuterol sulfate 2.5 mg INHALATION Q4H PRN 07/20/18 11/15/18 History baclofen 20 mg FEEDING TUBE TID 07/20/18 11/15/18 History budesonide 2 ml INHALATION BID 07/20/18 11/15/18 History cetirizine 10 mg FEEDING TUBE DAILY 07/20/18 11/15/18 History clonazepam 0.5 mg FEEDING TUBE DIRECTED 07/20/18 11/15/18 History polyethylene glycol 3350 8.5 g FEEDING TUBE DAILY PRN 07/20/18 11/15/18 History tobramycin 4 cap INHALATION Q12H 07/20/18 11/15/18 History valproic acid (as sodium salt) 550 mg FEEDING TUBE TID 07/20/18 11/15/18 History zonisamide 100 mg FEEDING TUBE HS 07/20/18 11/15/18 History zonisamide 200 mg FEEDING TUBE QAM 07/20/18 11/15/18 History Boost 1.5 ea PO QID@07,1130,,07/28/18 11/15/18 History water 120 ea PO QID@07,1130,,07/28/18 11/15/18 History trazodone 50 mg FEEDING TUBE HS 09/16/18 11/15/18 History nitrofurantoin 25 mg/5 mL oral 50 mg FEEDING TUBE DAILY #230 ml 11/08/18 11/15/18 Rx suspension fluoxetine 20 mg FEEDING TUBE DAILY 11/15/18 11/15/18 History Allergies Allergy/AdvReac Type Severity Reaction Status Date / Time No Known Allergies Allergy Unverified 11/15/18 11:02 Past Med/Surg History Medical History Hypoxia (Acute) PNA (pneumonia) (Acute) Pleural effusion (Acute) Cerebral palsy Seizure disorder Surgical History S/P percutaneous endoscopic gastrostomy (PEG) tube placement Status post tracheostomy Family History Other Family history non-contributory Social History Preferred Language: [place] Communication Ability: Unable Beliefs That Will Affect Care: None Current Living Situation: Parent Current Living Situation Comment: parent Feels Safe at Home: Yes Smoking Status: Never smoker Hx Alcohol Use: No Hx Substance Use: No Review of Systems See HPI for pertinent positives & negatives. Other (Limited secondary to patient's cognitive status) Physical Exam Vital Signs Vital Signs - 24 hr 11/15/18 10:13 11/15/18 10:39 11/15/18 10:42 Temperature 37.3 C Temperature Source Oral Sepsis Recent Fever Within 48 Hours No Sepsis New/Unexplained Change in Mental Status No Sepsis Action Taken by Nursing No Action Required Pulse Rate 130 H 128 H 129 H Pulse Rate [Apical] Pulse Rate from SpO2 Sensor 129 H Respiratory Rate 20 33 H 38 H Respiratory Effort / Characteristics Non-Labored Respiratory Depth Normal Pulse Oximetry 95 91 85 L Oxygen Delivery Method Room Air Room Air Oxygen Flow Rate 5 Fraction of Inspired Oxygen 11/15/18 10:45 11/15/18 11:00 11/15/18 11:15 Temperature Temperature Source Sepsis Recent Fever Within 48 Hours Sepsis New/Unexplained Change in Mental Status Sepsis Action Taken by Nursing Pulse Rate 127 H 128 H 120 H Pulse Rate [Apical] Pulse Rate from SpO2 Sensor 127 H 128 H 121 H Respiratory Rate 63 H 34 H 31 H Respiratory Effort / Characteristics Respiratory Depth Pulse Oximetry 96 96 90 Oxygen Delivery Method Nebulizer Oxygen Flow Rate Fraction of Inspired Oxygen 11/15/18 11:30 11/15/18 11:45 11/15/18 11:50 Temperature Temperature Source Sepsis Recent Fever Within 48 Hours Sepsis New/Unexplained Change in Mental Status Sepsis Action Taken by Nursing Pulse Rate 130 H 136 H Pulse Rate [Apical] 126 H Pulse Rate from SpO2 Sensor 129 H 135 H Respiratory Rate 54 H 34 H 26 H Respiratory Effort / Characteristics Spontaneous Respiratory Depth Pulse Oximetry 95 92 93 Oxygen Delivery Method Trach Collar Oxygen Flow Rate Fraction of Inspired Oxygen 50 11/15/18 12:00 11/15/18 12:15 11/15/18 12:30 Temperature Temperature Source Sepsis Recent Fever Within 48 Hours Sepsis New/Unexplained Change in Mental Status Sepsis Action Taken by Nursing Pulse Rate 130 H 135 H 125 H Pulse Rate [Apical] Pulse Rate from SpO2 Sensor 130 H 136 H 125 H Respiratory Rate 44 H 36 H 29 H Respiratory Effort / Characteristics Respiratory Depth Pulse Oximetry 91 86 L 86 L Oxygen Delivery Method Oxygen Flow Rate Fraction of Inspired Oxygen 11/15/18 12:45 Temperature Temperature Source Sepsis Recent Fever Within 48 Hours Sepsis New/Unexplained Change in Mental Status Sepsis Action Taken by Nursing Pulse Rate 130 H Pulse Rate [Apical] Pulse Rate from SpO2 Sensor 130 H Respiratory Rate 42 H Respiratory Effort / Characteristics Respiratory Depth Pulse Oximetry 85 L Oxygen Delivery Method Oxygen Flow Rate Fraction of Inspired Oxygen GENERAL: Patient is in no acute distress. HEENT: No acute trauma, normocephalic atraumatic, mucous membranes moist, no nasal congestion, no scleral icterus. NECK: Tracheostomy in place. LUNGS: Rhonchi bilaterally, equal breath sounds, no respiratory distress. Increased respiratory rate. HEART: Without murmurs gallops or rubs, regular rate and rhythm. ABDOMEN: Soft, nontender, bowel sounds positive, no hernias, no peritonitis. Feeding tube in place. EXTREMITIES: No cyanosis or edema, full range of motion of all the joints without pain or difficulty, no signs for acute trauma. NEUROLOGIC: Awake, findings of cerebral palsy noted, non-verbal. SKIN: No rash, no jaundice, no diaphoresis. Course 1043: Past medical records reviewed. The patient was evaluated in room C11A, and a complete history and physical examination were performed. 1110: I spoke to Dr. Vipul Hughes Pulgregory about the patient's case. He is going to evaluate her. 1222: I reevaluated the patient and updated her mother on results. We also discussed the treatment plan and the mother is agreeable with the plan. 1226: I spoke to Dr. Jose Hughes [facility] Hospitalist about the patient's case. She will be accepting the patient for further evaluation. 1232: I spoke to Dr. Tariq [facility] Boom Operator about the patient's case. He believes that the patient does not need to be put in the ICU. 1246: I spoke to Dr. Matthew after he had the chance to evaluate the patient. He spoke with Dr. Bob and would like for the patient to go to the ICU. 1255: I updated the patient's mother on the treatment plan and she agreed. Consultations Consultation #1: I spoke to Dr. Vipul Schroeder about the patient's case. He is going to evaluate her. Time: 11:10 Consultation #2: I spoke to Dr. Jose Hughes [facility] Hospitalkieran aout the patient's case. She will be accepting the patient for further evaluation. Time: 12:26 Consultation #3: I spoke to Dr. Tariq [facility] Boom Operator about the patient's case. He believes that the patient does not need to be put in the ICU. Time: 12:32 Additional Consultation(s): 1246: I spoke to Dr. Matthew after he had the chance to evaluate the patient. He spoke with Dr. Bob and would like for the pat ient to go to the ICU. Administered Medications Albuterol (Duoneb) 3 ml NEB Q4R KENNEDY Stop: 12/15/18 14:59 Last Admin: 11/15/18 16:00 Dose: 3 ml Documented by: [id number] Piperacillin Sod/Tazobactam (Sod 3.375 gm/ Dextrose) 115 mls @ 28.75 mls/hr IV Q8H KENNEDY; Protocol Stop: 11/22/18 15:59 Last Admin: 11/15/18 16:03 Dose: 28.8 mls/hr Documented by: [id number] Miscellaneous (Patient's Height And/Or Weight Needed) 1 ea N/A Q2H KENNEDY Stop: 11/16/18 01:16 Last Admin: 11/15/18 16:11 Dose: 1 ea Documented by: [id number] Discontinued Medications Albuterol (Duoneb) 3 ml NEB NOW STA Stop: 11/15/18 10:57 Last Admin: 11/15/18 11:44 Dose: 3 ml Documented by: [id number] Acetaminophen (Ofirmev) 1,000 mg in 100 mls @ 400 mls/hr IV NOW STA Stop: 11/15/18 11:10 Last Infusion: 11/15/18 11:58 Dose: 0 mls/hr Documented by: [id number] Admin: 11/15/18 11:41 Dose: 400 mls/hr Documented by: [id number] Sodium Chloride (Nss 1000ml) 500 mls @ 999 mls/hr IV .Q31M ONE Stop: 11/15/18 11:26 Last Infusion: 11/15/18 12:23 Dose: 0 mls/hr Documented by: [id number] Admin: 11/15/18 11:43 Dose: 999 mls/hr Documented by: [id number] Piperacillin Sod/Tazobactam Sod (Zosyn) 4.5 gm in 120 mls @ 240 mls/hr IV NOW ONE Stop: 11/15/18 11:31 Last Infusion: 11/15/18 12:23 Dose: 0 mls/hr Documented by: [id number] Admin: 11/15/18 11:53 Dose: 240 mls/hr Documented by: [id number] Sodium Chloride (Nss 1000ml) 500 mls @ 999 mls/hr IV .Q31M ONE Stop: 11/15/18 13:30 Last Infusion: 11/15/18 14:07 Dose: 0 mls/hr Documented by: [id number] Admin: 11/15/18 13:10 Dose: 999 mls/hr Documented by: [id number] Medical Decision Making Differential Diagnosis Differential Diagnosis includes: Influenza, URI, bronchitis, pneumonia, sepsis, dehydration, electrolyte abnormality, and anemia, amongst others. Medical Records Attestation: I reviewed the patient's medical records. Home Medications Current Medication List: was personally reviewed by me Laboratory Data Attestation: I reviewed the patient's lab results. Result diagrams: 11/15/18 12:05 11/15/18 12:05 Lab Results 11/15/18 11/15/18 11/15/18 Range/Units 11:44 11:44 11:56 WBC (4.8-10.8) K/uL RBC (4.2-5.4) M/uL Hgb (12.0-16.0) g/dL Hct (37-47) % MCV (80-100) fL MCH (25-34) pg MCHC (32-36) g/dL RDW Std Deviation (36.4-46.3) fL RDW Coeff of [place]quito (11.5-14.5) % Plt Count (130-400) K/uL MPV (7.4-10.4) fL Immature Gran % (Auto) % Neut % (Auto) % Lymph % (Auto) % [place] % (Auto) % Eos % (Auto) % Baso % (Auto) % Immature Gran # (Auto) (0.00-0.02) K/uL Neut # (Auto) (1.4-6.5) K/uL Lymph # (Auto) (1.2-3.4) K/uL [place] # (Auto) (0.11-0.59) K/uL Eos # (Auto) (0-0.5) K/uL Baso # (Auto) (0-0.2) K/uL Sodium Cancelled Potassium Cancelled Chloride Cancelled Carbon Dioxide Cancelled Anion Gap Cancelled BUN Cancelled Creatinine Cancelled Est Cr Clr Drug Dosing Cancelled Est GFR ( Amer) Cancelled Est GFR (Non-Af Amer) Cancelled BUN/Creatinine Ratio Cancelled Glucose Cancelled Lactate Cancelled Calcium Cancelled Total Bilirubin Cancelled AST Cancelled ALT Cancelled Alkaline Phosphatase Cancelled Total Protein Cancelled Albumin Cancelled Globulin Cancelled Albumin/Globulin Ratio Cancelled Influenza Type A Ag Neg for Influ A (Neg) Influenza Type B Ag Neg for Influ B (Neg) 11/15/18 11/15/18 Range/Units 12:05 12:05 WBC 16.94 H (4.8-10.8) K/uL RBC 3.66 L (4.2-5.4) M/uL Hgb 12.3 (12.0-16.0) g/dL Hct 36.0 L (37-47) % MCV 98.4 (80-100) fL MCH 33.6 (25-34) pg MCHC 34.2 (32-36) g/dL RDW Std Deviation 46.8 H (36.4-46.3) fL RDW Coeff of [place] 13.1 (11.5-14.5) % Plt Count 103 L (130-400) K/uL MPV 9.9 (7.4-10.4) fL Immature Gran % (Auto) 0.4 % Neut % (Auto) 84.1 % Lymph % (Auto) 3.4 % [place] % (Auto) 11.9 % Eos % (Auto) 0.0 % Baso % (Auto) 0.2 % Immature Gran # (Auto) 0.06 H (0.00-0.02) K/uL Neut # (Auto) 14.26 H (1.4-6.5) K/uL Lymph # (Auto) 0.58 L (1.2-3.4) K/uL [place] # (Auto) 2.01 H (0.11-0.59) K/uL Eos # (Auto) 0.00 (0-0.5) K/uL Baso # (Auto) 0.03 (0-0.2) K/uL Sodium 133 L Potassium 3.9 Chloride 102 Carbon Dioxide 21 Anion Gap 10.0 BUN 16 Creatinine 0.45 L Est Cr Clr Drug Dosing Not Reportable Est GFR ( Amer) > 150.0 Est GFR (Non-Af Amer) 142.2 BUN/Creatinine Ratio 34.8 H Glucose 110 H Lactate Calcium 8.2 L Total Bilirubin 0.5 AST 12 L ALT 12 Alkaline Phosphatase 79 Total Protein 7.2 Albumin 3.0 L Globulin 4.2 H Albumin/Globulin Ratio 0.7 L Influenza Type A Ag (Neg) Influenza Type B Ag (Neg) Imaging Data Radiologist's Impression: Radiology results as stated below per my review and the radiologist's interpretation: SINGLE VIEW CHEST CLINICAL HISTORY: Cough. FINDINGS: An AP, portable, upright chest radiograph is compared to study dated 09/16/2018. The examination is significantly degraded by portable technique and patient rotation. A tracheostomy is in place. The cardiomediastinal silhouette is unremarkable. Airspace consolidation is seen at the left lung base and at the left apex. There is a small left pleural effusion. The right lung is grossly clear. No pneumothorax is seen. The bony thorax is grossly intact. IMPRESSION: There is left basilar and left apical airspace consolidation with a small left pleural effusion. The appearance is typical for pneumonia/aspiration pneumonitis. Clinical correlation will be required and radiographic follow-up to resolution is recommended. Electronically signed by: Wily Nowak M.D. 11/15/2018 12:13 PM Blood Pressure Blood Pressure Findings: Low blood pressure MDM Narrative There is a moderate leukocytosis, this is consistent with infection. No concerning anemia. Renal panel testing does not show kidney failure or significant electrolyte abnormality. Lactic acid level is pending. No worrisome liver enzyme elevation. Urinalysis does not show evidence for infecti on. Influenza testing was negative. Chest film does show a left-sided pneumonia. Blood cultures are pending. On exam, the patient was tachycardic and febrile. She did have rhonchi on her lung exam. The patient has pneumonia. She has ongoing chronic respiratory issues. I do think she meets criteria for sepsis. The patient received IV saline, she was given IV Zosyn as antibiotic coverage. She was given a DuoNeb. She received IV Tylenol. A mist apparatus was set up for her by respiratory. She was given supplemental oxygen. The patient requires a hospital stay. I did speak to Dr. Matthew, her jewelry drill operator, I spoke with the on-call hospitalist, I spoke with the ICU attending. The patient's caregivers and mother are aware of our findings and concerns. Impression & Plan Sepsis, Pneumonia, Fever, Tachycardia, History of cerebral palsy, History of tracheostomy Critical Care Time Critical Care Time: Yes Total Critical Care Time: 40 I have personally spent greater than 40 minutes of critical care time in the direct management of this patient. This includes bedside care, interpretation of diagnostic studies, and testing, discussion with consultants, patient, and family members, and other required patient management activities. This 40 minutes is in excess of all separately billable procedures. Discharge Plan Visit Data *Final* Discharge Date/Time: 11/15/18 13:36 Chief Complaint: Respiratory Distress Stated Complaint: Respiratory Distress ED Provider: Wily Hendricks Discharge Problem: Sepsis, Pneumonia, Fever, Tachycardia, History of cerebral palsy, History of tracheostomy Patient Disposition: Admitted As Inpatient Discharge Instructions Interventions: ED Discharge Assessment Last Done: 11/15/18 13:36 Discharge Problem: Sepsis Qualifiers: Sepsis type: sepsis due to unspecified organism Sepsis acute organ dysfunction status: unspecified Qualified Code(s): A41.9 - Sepsis, unspecified organism Pneumonia Qualifiers: Pneumonia type: due to unspecified organism Laterality: left Lung location: lower lobe of lung Qualified Code(s): J18.1 - Lobar pneumonia, unspecified organism Fever Qualifiers: Fever type: unspecified Qualified Code(s): R50.9 - Fever, unspecified The scribe's documentation has been prepared under my direction and personally reviewed by me in its entirety. I confirm that the note above accurately reflects all work, treatment, procedures, and medical decision making performed by me.
[2018-11-15] MEDS ORDERED: ALBUTEROL 0.083% NEBU SOLN 3 ML VIAL INH PRN (14:49)
[2018-11-15] MEDS ORDERED: PIPERACILL/TAZOBAC CONSULT ACTIVE PRN (14:49)
[2018-11-15] MEDS ORDERED: TOBRAMYCIN INH SCH (14:49)
[2018-11-15] MEDS ORDERED: ICU PROTOCOL FOR HYPERGLYCEMIA PRN (14:49)
[2018-11-15] MEDS ORDERED: FOOD SUPPLEMT LACTOSE REDUCED PO SCH (15:00)
[2018-11-15] MEDS ORDERED: clonazePAM 0.5 MG TAB PO PRN (15:30)
[2018-11-15] MEDS: ALBUT/IPRATROP 3MG/0.5MG NEB 3 ML VIAL NEB SCH ×3 (16:00→23:06)
[2018-11-15] MEDS: PIPERACILLIN/TAZOBACTAM 3.375 GM in DEXTROSE 5% 100 ML IV SCH ×2 (16:03→23:47)
[2018-11-15] MEDS: PATIENT'S HEIGHT AND/OR WEIGHT NEEDED SCH ×2 (16:11→17:28)
[2018-11-15] MEDS: BACLOFEN 20 MG TAB PO SCH ×2 (16:14→19:48)
[2018-11-15] MEDS ORDERED: PHENYLEPHRINE HCL 10 MG/ML VIAL ONE (16:51)
[2018-11-15] MEDS ORDERED: fentaNYL citrate 100 MCG/2 ML VIAL ONE (16:52)
[2018-11-15] MEDS: VALPROIC ACID SOLN 500 MG/10 ML UDC PO SCH ×2 (16:58→19:49)
[2018-11-15] MEDS ORDERED: fentaNYL citrate 100 MCG/2 ML VIAL IV STA (17:10)
--- NOTE | 2018-11-15 17:10 | Procedure Note ---
Procedure Note Date of Service November 15, 2018 Procedure date: Noted above Procedure: fiberoptic bronchoscopy Pre-procedure indication: Pulmonary infiltrate of left lower lobe Post-procedure Diagnosis: same as above Prior to Procedure: Informed Consent: The risks, benefits, indications, potential complications, and alternatives were explained to the patient's mother and informed consent obtained. Attending Staff: Lavno Tariq DO Resident/APC: Not applicable Skin Prep: Not applicable Anesthesia: Total 75 mcg fentanyl The identity of the patient was confirmed and a bedside time out was performed. Description of Procedure: Fiberoptic bronchoscopy was performed via endotracheal tube. Bronchioalveolar lavage left mainstem bronchus into the left lower lobe was performed. Findings included: Purulent yellow mucoid secretions without significant impaction were easily suctioned. Mucomyst was instilled into the left lower lobe. Complications: None Specimens: Bronchial washings sent for culture and Gram stain, cytology, fungal elements, and AFB stain and culture. Estimated blood loss: Zero Coding CPT Codes Pulmonary/Thoracic - Pulmonary and Thoracic: Dx bronchoscopy/wash ([id number])
[2018-11-15] MEDS: TUBE FEEDING WATER FLUSH PO SCH ×2 (17:26→19:49)
[2018-11-15] MEDS: TRAZODONE HCL 50 MG TAB PEG SCH (19:48)
[2018-11-15] MEDS: ZONISAMIDE 100 MG PO SCH (19:49)
--- NOTE | 2018-11-15 20:35 | Critical Care Consultation ---
Date of Consultation November 15, 2018 Assessment & Plan (1) Pneumonia: Reason Critically Ill: HIgh risk patient with tracheostomy with pneumonia. Cardiovascular: Patient tachycardic and blood pressures slightly low/normal Close to patient's baseline from previous admissions WIll monitor and give fluid as needed Respiratory: Pneumonia seen on CXR Started on zosyn in ED, On duonebs, will also continue mucomyst Received bronchoscopy in ICU showing large amount of mucus. Patient does appear to be moving mucus better than she has during past admissions. Will continue to monitor and likely bronch again tomorrow ID: BLood and trach culture drawn in ED Sent bronchial suctions for culture as well On zosyn and chronic tobramycin for chronic pseudomonas Neuro: Patient at baseline neuro status, unable to converse not oriented to person place or time Patient with history of seizure disorder as well, will continue home depakote GI: Will continue home PEG tube feeds Heme: No hematologic abnormality at this time other than elevated white count secondary to infection Renal: Kidney function normal at baseline DVT PPx: Not ordered F/E/N: HOme tube feeds Dipso: ICU Code Status: Conditional, see details on chart (2) S/P admission to ICU (intensive care unit): Supervising Physician Co-Signing Physician Notes Dr. Jaramillo was resident physician during care of patient. I separately evaluated patient for canales portions of the history and the exam. I was present during the critical portion of medical decision making, and I discussed the case with the resident. I generally agree with the findings and plan. Oxygenation improved after bronchoscopy, anticipate repeat bronchoscopy tomorrow. Tolerating home mechanical ventilator overnight for PEEP and some pressure support.. History of Present Illness Reason for Consultation: Respiratory Distress Requesting Physician: Makayla Garcia Attending Physician: Makayla Garcia DO History of Present Illness 23 year old woman well known to ICU service with a past medical history significant for cerebral palsy who has a trach collar and ventilator at home each night as well as a PEG tube for feeding. She is here for ill appearance per mother with cough and increased respiratory secretions. Patient's mother says this is how she looks before she has crashed in the past. Patient started on nebulizers and zosyn in emergency department Allergies Allergy/AdvReac Type Severity Reaction Status Date / Time No Known Allergies Allergy Unverified 11/15/18 11:02 Home Medications Home Medications Medication Instructions Recorded Confirmed Type acetylcysteine 3 ml INHALATION BID 07/20/18 11/15/18 History albuterol sulfate 2.5 mg INHALATION Q4H PRN 07/20/18 11/15/18 History baclofen 20 mg FEEDING TUBE TID 07/20/18 11/15/18 History budesonide 2 ml INHALATION BID 07/20/18 11/15/18 History cetirizine 10 mg FEEDING TUBE DAILY 07/20/18 11/15/18 History clonazepam 0.5 mg FEEDING TUBE DIRECTED 07/20/18 11/15/18 History polyethylene glycol 3350 8.5 g FEEDING TUBE DAILY PRN 07/20/18 11/15/18 History tobramycin 4 cap INHALATION Q12H 07/20/18 11/15/18 History valproic acid (as sodium salt) 550 mg FEEDING TUBE TID 07/20/18 11/15/18 History zonisamide 100 mg FEEDING TUBE HS 07/20/18 11/15/18 History zonisamide 200 mg FEEDING TUBE QAM 07/20/18 11/15/18 History Boost 1.5 ea PO QID@07,1130,15,19 07/28/18 11/15/18 History water 120 ea PO QID@07,1130,15,19 07/28/18 11/15/18 History trazodone 50 mg FEEDING TUBE HS 09/16/18 11/15/18 History nitrofurantoin 25 mg/5 mL oral 50 mg FEEDING TUBE DAILY #230 ml 11/08/18 11/15/18 Rx suspension fluoxetine 20 mg FEEDING TUBE DAILY 11/15/18 11/15/18 History Patient History Medical History Hypoxia (Acute) PNA (pneumonia) (Acute) Pleural effusion (Acute) Cerebral palsy Seizure disorder Surgical History S/P percutaneous endoscopic gastrostomy (PEG) tube placement Status post tracheostomy Family History Other Family history non-contributory Social History Preferred Language: [place] Communication Ability: Unable Beliefs That Will Affect Care: None Current Living Situation: Family Current Living Situation Comment: parent Feels Safe at Home: Yes Smoking Status: Never smoker Second Hand Exposure: No ; Hx Alcohol Use: No Hx Substance Use: No Review of Systems Review of Systems: All systems reviewed & are unremarkable except as noted in HPI & below Physical Exam Constitutional: Patient with trach in place, in moderate distress, appears uncomfortable Eyes: PERRL, conjunctivae normal, anicteric sclerae ENMT: external ear and nose normal, oropharynx normal Respiratory: Bronchial breath sounds, tachypneic, couging Cardiovascular: Rate/Rhythm: regular rhythm and + tachycardic; + abnormal rate Heart Sounds: normal S1 and normal S2; no murmur and no cardiac rub Gastrointestinal (Abdomen): normal bowel sounds, soft, nontender, no hepatosplenomegaly Results & Data Vital Signs (Past 12 Hours) Vital Signs Temp Pulse Pulse Resp BP BP Pulse Ox 11/15/18 17:00 118 H 18 106/64 88 L 11/15/18 16:55 119 H 18 110/66 88 L 11/15/18 16:00 118 H 90 11/15/18 15:00 109 H 36 H 73/46 L 89 L 11/15/18 14:37 103 H 21 92/62 L 93 11/15/18 14:30 102 H 34 H 73/46 L 91 11/15/18 14:05 81/44 L 89 L 11/15/18 13:20 36.5 C 90/52 L 11/15/18 13:15 105 H 33 H 94 11/15/18 13:00 120 H 22 87 L 11/15/18 12:45 130 H 42 H 85 L 11/15/18 12:30 125 H 29 H 86 L 11/15/18 12:15 135 H 36 H 86 L 11/15/18 12:00 130 H 44 H 91 11/15/18 11:50 126 H 26 H 93 11/15/18 11:45 136 H 34 H 92 11/15/18 11:30 130 H 54 H 95 11/15/18 11:15 120 H 31 H 90 11/15/18 11:00 128 H 34 H 96 11/15/18 10:45 127 H 63 H 96 11/15/18 10:42 129 H 38 H 85 L 11/15/18 10:39 128 H 33 H 91 11/15/18 10:13 37.3 C 130 H 20 95 PG Care Time/CCT Total # of Minutes Spent Total Time Spent with Patient: Total time spent is greater than 50% in coordination of care (as documented) at patient's floor/unit and/or counseling patient: Critical Care Time: Yes Total Critical Care Time: 45 (I have personally spent 45 minutes of critical care time in the direct management of this patient. This is a life/limb threatening event. This includes time spent evaluating patient, direct bedside care, chart review, placing orders, interpretation of diagnostic studies, discussion with consultants, patient, and/or family members regarding treatment decisions, as well as other required patient management activities.This time is exclusive of all separately billable procedures, and teaching time and separate from and in addition to any other critical care service time.) Resident Activity Tracking Resident Involvement: Resident Care Provided Care Provided: Adult Hospital Medicine (1) Pneumonia Laterality: left Lung location: lower lobe of lung Pneumonia type: due to unspecified organism Qualified Code(s): J18.1 - Lobar pneumonia, unspecified organism
[2018-11-15] MEDS: ACETYLCYSTEINE 10% INHAL SOLN **DISPENSED FROM RESP. INH SCH (20:45)
[2018-11-15] MEDS: BUDESONIDE 0.5 MG/2 ML VIAL (PULMICORT) INH SCH (20:45)
[2018-11-15] MEDS: TOBRAMYCIN SULFATE 300 MG in SYRINGE 0 ML INH SCH (20:46)
[2018-11-15] MEDS ORDERED: INFLUENZA ADMINISTRATION CHARGE ONE (21:15)
[2018-11-15] MEDS ORDERED: INFLUENZA VIRUS QUAD VACCINE 0.5 ML SYR IM ONE (21:15)
[2018-11-16] MEDS: ALBUT/IPRATROP 3MG/0.5MG NEB 3 ML VIAL NEB SCH ×6 (03:06→23:05)
[2018-11-16 05:09] LABS: Hematocrit (blood only) 36.1 % (37-47); Hemoglobin 12.1 g/dL (12.0-16.0); Mean Corpuscular Hemoglobin 33.7 pg (25-34); Mean Corpuscular Hgb Conc 33.5 g/dL (32-36); Mean Corpuscular Volume 100.6 fL (80-100); RDW Coefficient of Variation 13.1 % (11.5-14.5); RDW Standard Deviation 47.7 fL (36.4-46.3); Red Blood Count 3.59 M/uL (4.2-5.4); White Blood Count 15.37 K/uL (4.8-10.8)
[2018-11-16 05:45] LABS: Immature Granulocytes # (auto) 0.05 K/uL (0.00-0.02); Immature Granulocytes % (auto) 0.3 %; Lymphocytes # (auto) 0.65 K/uL (1.2-3.4); Lymphocytes % (auto) 4.2 %; Mean Platelet Volume 9.7 fL (7.4-10.4); Monocytes # (auto) 1.31 K/uL (0.11-0.59); Monocytes % (auto) 8.5 %; Neutrophils # (auto) 13.36 K/uL (1.4-6.5); Platelet Count 86 K/uL (130-400); Platelet Estimate Decreased (Normal); Toxic Vacuolation 1+
[2018-11-16 05:47] LABS: BUN Creatinine Ratio 18.9 (10-20); Blood Urea Nitrogen 9 mg/dl (7-18); Calcium 8.5 mg/dl (8.5-10.1); Carbon Dioxide 24 mmol/L (21-32); Chloride 105 mmol/L (98-107); Creatinine Clr Calc Pharmacy 134.2 ml/min; Est GFR (African American) > 150.0; Est GFR (Non-African American) 141.2; Glucose 94 mg/dl (70-99); Magnesium 1.9 mg/dl (1.8-2.4); Phosphorus 2.5 mg/dl (2.5-4.9); Potassium 3.3 mmol/L (3.5-5.1); Sodium 136 mmol/L (136-145)
[2018-11-16] MEDS ORDERED: POTASSIUM CHLORIDE 20 MEQ/15 ML UDC PO STA (06:23)
--- NOTE | 2018-11-16 06:29 | Critical Care Progress Note ---
Date of Service November 16, 2018 Assessment & Plan (1) Pneumonia: Reason Critically Ill: HIgh risk patient with tracheostomy with pneumonia. Cardiovascular: Patient tachycardic and blood pressures slightly low/normal Close to patient's baseline from previous admissions WIll monitor and give fluid as needed Respiratory: Pneumonia seen on CXR Started on zosyn in ED, On duonebs, will also continue mucomyst Underwent bronchoscopy again today with large amount of mucus suctioned and mucomyst injected into bronchi Patient does appear to be moving mucus better than she has during past admissions. ID: BLood and trach culture drawn in ED Growing pseudomonas, sensitivities p ending Sent bronchial samples for culture as well On zosyn for this pneumonia and chronic tobramycin for chronic pseudomonal infection Discussed pneumonia vaccination status with mother, she has been adequately vaccinated. She can either get a booster later this year or in the next five for her PPSV vaccination. Neuro: Patient at baseline neuro status, unable to converse not oriented to person place or time Patient with history of seizure disorder as well, will continue home depakote GI: Will continue home PEG tube feeds Heme: No hematologic abnormality at this time other than elevated white count secondary to infection Renal: Kidney function normal at baseline DVT PPx: Not ordered F/E/N: HOme tube feeds Dipso: ICU Code Status: Conditional, see details on chart (2) S/P admission to ICU (intensive care unit): Supervising Physician Co-Signing Physician Notes Dr. Jaramillo was resident physician during care of patient. I separately evaluated patient for canales portions of the history and the exam. I was present during the critical portion of medical decision making, and I discussed the case with the resident. I generally agree with the findings and plan. Plan for bronchoscopy today. Known Pseudomonas colonization waiting to be to see if there is any multiple drug resistances. Patient normally tachycardic at baseline, tolerating home tube feed formulation. Patient's weight is minimally decreased from previous admission, we have discussed possibly increasing caloric versus protein intake. Patient is largely chronically critically ill, we will check labs every other day continue with current therapies, creatinine and volume status appear to be adequate at this time. Sepsis secondary to multidrug-resistant Pseudomonas. Subjective Patient appears to be resting comfortably, unable to communicate. Tolerated bronchoscopy well. Review of Systems Review of Systems: All systems reviewed & are unremarkable except as noted in HPI & below Physical Exam Eyes: PERRL, conjunctivae normal, anicteric sclerae ENMT: external ear and nose normal, oropharynx normal Cardiovascular: Rate/Rhythm: regular rhythm and + tachycardic; + abnormal rate Heart Sounds: normal S1 and normal S2; no murmur and no cardiac rub Gastrointestinal (Abdomen): normal bowel sounds, soft, nontender, no hepatosplenomegaly Results & Data Vital Signs (Past 12 Hours) Vital Signs Temp Pulse Pulse Resp BP BP Pulse Ox 11/16/18 05:00 37.6 C H 118 H 31 H 104/63 91 11/16/18 03:08 27 H 11/16/18 03:06 133 H 27 H 94 11/16/18 03:00 128 H 39 H 100/63 11/16/18 02:00 125 H 39 H 103/59 L 94 11/16/18 01:00 126 H 38 H 101/57 L 11/15/18 23:00 37.7 C H 128 H 36 H 95/65 L 92 11/15/18 22:00 140 H 26 H 96/71 L 92 11/15/18 21:30 136 H 36 H 95/53 L 94 11/15/18 21:00 121 H 32 H 82/49 L 96 11/15/18 20:47 130 H 96 11/15/18 20:30 130 H 31 H 100/74 89 L 11/15/18 20:00 124 H 35 H 121/80 90 PG Care Time/CCT Total # of Minutes Spent Total Time Spent with Patient: Total time spent is greater than 50% in coordination of care (as documented) at patient's floor/unit and/or counseling patient: Critical Care Time: Yes Total Critical Care Time: 40 Resident Activity Tracking Resident Involvement: Resident Care Provided Care Provided: Adult [facility] Medicine (1) Pneumonia Laterality: left Lung location: lower lobe of lung Pneumonia type: due to unspecified organism Qualified Code(s): J18.1 - Lobar pneumonia, unspecified organism
[2018-11-16] MEDS ORDERED: POTASSIUM CHLORIDE / WTR 10 MEQ/100 ML PLCT IV SCH (06:30)
[2018-11-16] MEDS: BUDESONIDE 0.5 MG/2 ML VIAL (PULMICORT) INH SCH ×2 (07:16→20:33)
[2018-11-16] MEDS: ACETYLCYSTEINE 10% INHAL SOLN **DISPENSED FROM RESP. INH SCH ×2 (07:17→20:32)
[2018-11-16] MEDS: TUBE FEEDING WATER FLUSH PO SCH ×4 (07:24→18:30)
[2018-11-16] MEDS: PATIENT'S OWN ENTERAL FEEDING PEG SCH ×4 (07:30→18:30)
[2018-11-16] MEDS: PIPERACILLIN/TAZOBACTAM 3.375 GM in DEXTROSE 5% 100 ML IV SCH ×2 (07:53→15:48)
[2018-11-16] MEDS ORDERED: CETIRIZINE HCL 10 MG TABLET PO SCH (09:00)
[2018-11-16] MEDS: ACETAMINOPHEN 65 ML IV PRN ×2 (09:10→18:58)
[2018-11-16] MEDS: FLUOXETINE HCL 20 MG/5 ML UDP NG SCH (09:12)
[2018-11-16] MEDS: BACLOFEN 20 MG TAB PO SCH ×3 (09:12→21:13)
[2018-11-16] MEDS: VALPROIC ACID SOLN 500 MG/10 ML UDC PO SCH ×3 (09:12→21:14)
[2018-11-16] MEDS: NITROFURANTOIN 25 MG/5 ML PEG SCH (09:15)
--- NOTE | 2018-11-16 09:15 | Pulmonary Consultation ---
Date of Consultation November 16, 2018 Assessment & Plan (1) Sepsis: Sepsis acute organ dysfunction status: unspecified Sepsis type: sepsis due to unspecified organism Qualified Code(s): A41.9 - Sepsis, unsp ecified organism (2) Pneumonia: Patient required critical care placement. While she is not fully mechanical ventilator dependent she would benefit from 24-hour mechanical ventilator assistance with O2 supplementation given her presentation and sepsis. I agree with the choice of IV antibiotics and she will require bronchoscopic evaluation with BAL and frequent suctioning as well. Mucomyst and/or 7% normal saline can be added to her regimen in addition to aerosolized bronchodilator. We will follow along with you thank you very much for this consultation and exc epting the patient into the unit. Laterality: left Lung location: lower lobe of lung Pneumonia type: due to unspecified organism Qualified Code(s): J18.1 - Lobar pneumonia, unspecified organism (3) Fever: Fever type: unspecified Qualified Code(s): R50.9 - Fever, unspecified (4) Tachycardia: (5) History of cerebral palsy: (6) History of tracheostomy: (7) Status post insertion of percutaneous endoscopic gastrostomy (PEG) tube: (8) Seizure disorder: (9) Acute respiratory failure with hypoxia and hypercapnia: (10) Pseudomonas aeruginosa colonization: (11) Bronchopneumonia due to Pseudomonas species: History of Present Illness Attending Physician: Jatinder Garcia 23-year-old with severe cerebral palsy was taken to the emergency room by her mother and caretakers on 11/15/2018 at 10:41 AM. I see this patient and her twin sister on a regular basis as an outpatient. This patient has had a complex medical history and was receiving mechanical ventilation support at home via tracheostomy nocturnally and as needed during the day. Patient is on a fairly intensive pulmonary regimen including inhaled KANDY due to chronic Pseudomonas colonization. Patient began running a low-grade fever at home with increased chest congestion and hypoxemia and was placed on 5 L supplemental oxygen in addition to her mechanical ventilatory assistance nocturnally. Directed them to the emergency room. Her sister had shown some mild hypoxemia as well but was afebrile and in no respiratory distress. Patient has a chronic trach and PEG tube and is noncommunicative. She had a lengthy hospitalization from 07/20/2018 to 08/11/2018 requiring extensive treatment for left lower lobe Pseudomonas pneum onia and acute hypoxic and hypercapnic respiratory failure. Noninvasive positive pressure ventilation did not curtail the requirement for multiple and frequent bronchoscopies due to atelectasis and mucoid impaction with mucous plugging. Always involving the left tracheobronchial tree. Multiple chest x- rays and CAT scans showed mucous plugging and secretions throughout the left mainstem bronchus causing distal atelectasis. Initially during that hospital stay Vapotherm via the trach was used to supplement high flow oxygen as per her demand. She received a 21-day course of imipenem and attempts and a trial with a trilogy unit was ineffectual. The home ventilator was set at an SIMV rate of 12, tidal volume 350 cc, PEEP of 8 cm with O2 supplementation usually approximating 30% FiO2. He has been maintained on inhaled KANDY Thursday and then on a daily basis for prophylaxis. She also suffers from a chronic seizure disorder and severe scoliosis which impacts her respiratory status as well. I saw patient in the ER at the request of Dr. Wily Hendricks she was tachycardic with a rate of 130 febrile and seemingly uncomfortable with her respiratory status. That is often difficult to determine given her noncommunicative status. White count was 16,900 H&H 12.3 and 36 with a preponderance of polymorphonuclear leukocytes in the peripheral smear. Current temperature is 38.2. Chest x-ray continued to show left basilar apical airspace consolidation with small left pleural effusion and volume loss on the left side . Patient was made to admit her to the ICU under the care of critical care consultants. Allergies Allergy/AdvReac Type Severity Reaction Status Date / Time No Known Allergies Allergy Unverified 11/15/18 11:02 Home Medications Home Medications Medication Instructions Recorded Confirmed Type acetylcysteine 3 ml INHALATION BID 07/20/18 11/15/18 History albuterol sulfate 2.5 mg INHALATION Q4H PRN 07/20/18 11/15/18 History baclofen 20 mg FEEDING TUBE TID 07/20/18 11/15/18 History budesonide 2 ml INHALATION BID 07/20/18 11/15/18 History cetirizine 10 mg FEEDING TUBE DAILY 07/20/18 11/15/18 History clonazepam 0.5 mg FEEDING TUBE DIRECTED 07/20/18 11/15/18 History polyethylene glycol 3350 8.5 g FEEDING TUBE DAILY PRN 07/20/18 11/15/18 History tobramycin 4 cap INHALATION Q12H 07/20/18 11/15/18 History valproic acid (as sodium salt) 550 mg FEEDING TUBE TID 07/20/18 11/15/18 History zonisamide 100 mg FEEDING TUBE HS 07/20/18 11/15/18 History zonisamide 200 mg FEEDING TUBE QAM 07/20/18 11/15/18 History Boost 1.5 ea PO QID@07,1130,,07/28/18 11/15/18 History water 120 ea PO QID@07,1130,,07/28/18 11/15/18 History trazodone 50 mg FEEDING TUBE HS 09/16/18 11/15/18 History nitrofurantoin 25 mg/5 mL oral 50 mg FEEDING TUBE DAILY #230 ml 11/08/18 11/15/18 Rx suspension fluoxetine 20 mg FEEDING TUBE DAILY 11/15/18 11/15/18 History Patient History Medical History Hypoxia (Acute) PNA (pneumonia) (Acute) Pleural effusion (Acute) Cerebral palsy Seizure disorder Surgical History S/P percutaneous endoscopic gastrostomy (PEG) tube placement Status post tracheostomy Family History Other Family history non-contributory Social History Preferred Language: [place] Communication Ability: Unable Beliefs That Will Affect Care: None Current Living Situation: Family Current Living Situation Comment: parent Feels Safe at Home: Yes Smoking Status: Never smoker Second Hand Exposure: No ; Hx Alcohol Use: No Hx Substance Use: No Review of Systems Constitutional: no problem reported Eyes: no problem reported Ear, Nose, Mouth, Throat: no problem reported Respiratory: no problem reported Cardiovascular: no problem reported Gastrointestinal: no problem reported Genitourinary: no problem reported Musculoskeletal: no problem reported Integumentary: no problem reported Neurologic: no problem reported Psychiatric: no problem reported Endocrine: no problem reported Hematologic / Lymphatic: no problem reported Allergy / Immunological: no problem reported Physical Exam Constitutional: well developed and well nourished; no acute distress Eyes: PERRL, conjunctivae normal, anicteric sclerae ENMT: external ear and nose normal, oropharynx normal Neck: trachea midline, no thyromegaly Respiratory: normal respiratory effort and + abnormal respiratory pattern Auscultation: lungs clear to auscultation bilaterally and + diminished lung sounds (Left base w coarse large airway rhonchi) Cardiovascular: RRR, no murmur, no edema (Sinus tachycardia) Palpation: normal PMI; no thrill Gastrointestinal (Abdomen): normal bowel sounds, soft, nontender, no hepatosplenomegaly Musculoskeletal: no cyanosis or clubbing, extremities motor strength 5/5 Gait: normal gait Skin: no rashes, warm and dry Neurologic: PERRL, EOMI, accommodation nl, no face palsy, no dysarthria Psychiatric: A+Ox3, euthymic affect Lymphatic: no cervical or axillary lymphadenopathy Results & Data Vital Signs (Past 12 Hours) Vital Signs Temp Pulse Pulse Pulse Resp BP BP 11/16/18 07:30 134 H 38 H 95/62 L 11/16/18 07:23 132 H 18 11/16/18 07:00 38.2 C H 118 H 37 H 95/56 L 11/16/18 05:00 37.6 C H 118 H 31 H 104/63 11/16/18 03:08 27 H 11/16/18 03:06 133 H 27 H 11/16/18 03:00 128 H 39 H 100/63 11/16/18 02:00 125 H 39 H 103/59 L 11/16/18 01:00 126 H 38 H 101/57 L 11/15/18 23:00 37.7 C H 128 H 36 H 95/65 L 11/15/18 22:00 140 H 26 H 96/71 L 11/15/18 21:30 136 H 36 H 95/53 L Pulse Ox 11/16/18 07:30 93 11/16/18 07:23 95 11/16/18 07:00 92 11/16/18 05:00 91 11/16/18 03:08 11/16/18 03:06 94 11/16/18 03:00 11/16/18 02:00 94 11/16/18 01:00 11/15/18 23:00 92 11/15/18 22:00 92 11/15/18 21:30 94 Laboratory Results Abnormal Labs 11/15/18 11/15/18 11/15/18 12:05 12:05 13:02 WBC 16.94 H RBC 3.66 L Hct 36.0 L MCV RDW Std Deviation 46.8 H Plt Count 103 L Immature Gran # (Auto) 0.06 H Neut # (Auto) 14.26 H Lymph # (Auto) 0.58 L Webb # (Auto) 2.01 H Platelet Estimate Sodium 133 L Potassium Creatinine 0.45 L BUN/Creatinine Ratio 34.8 H Glucose 110 H Calcium 8.2 L AST 12 L Albumin 3.0 L Globulin 4.2 H Albumin/Globulin Ratio 0.7 L Urine pH 8.0 H Ur Specific [place] 1.040 H Urine Ketones Trace H Urine Blood Trace H Urine RBC (Auto) 5-10 H U Epithel Cells (Auto) 20-30 H 11/16/18 11/16/18 04:55 04:55 WBC 15.37 H RBC 3.59 L Hct 36.1 L MCV 100.6 H RDW Std Deviation 47.7 H Plt Count 86 L Immature Gran # (Auto) 0.05 H Neut # (Auto) 13.36 H Lymph # (Auto) 0.65 L Webb # (Auto) 1.31 H Platelet Estimate Decreased L Sodium Potassium 3.3 L D Creatinine 0.46 L BUN/Creatinine Ratio Glucose Calcium AST Albumin Globulin Albumin/Globulin Ratio Urine pH Ur Specific [place] Urine Ketones Urine Blood Urine RBC (Auto) U Epithel Cells (Auto) Medications Administered Current Inpatient Medications Acetylcysteine (Mucomyst 10%) 3 ml INH BIDR [facility] Stop: 12/15/18 18:59 Last Admin: 11/16/18 07:17 Dose: 3 ml Documented by: Albuterol (Duoneb) 3 ml NEB Q4R [facility] Stop: 12/15/18 14:59 Last Admin: 11/16/18 07:16 Dose: 3 ml Documented by: Albuterol (Ventolin 0.083% 2.5mg/3ml) 2.5 mg INH Q4H PRN PRN Reason: Wheezing/ shortness of breath Stop: 12/15/18 14:48 Baclofen (Lioresal) 20 mg PO TID [facility] Stop: 12/15/18 15:29 Last Admin: 11/16/18 09:12 Dose: 20 mg Documented by: Budesonide (Pulmicort Respules) 0.5 mg INH BIDR [facility] Stop: 12/15/18 18:59 Last Admin: 11/16/18 07:16 Dose: 0.5 mg Documented by: Clonazepam (Klonopin) 0.5 mg PO DAILY PRN PRN Reason: seizures Stop: 12/15/18 15:29 Fluoxetine HCl (Prozac) 20 mg NG DAILY [facility] Stop: 12/16/18 08:59 Last Admin: 11/16/18 09:12 Dose: 20 mg Documented by: Acetaminophen (Ofirmev) 65 mls @ 200 mls/hr IV Q8H PRN PRN Reason: fever Stop: 12/15/18 14:48 Last Admin: 11/16/18 09:10 Dose: 200 mls/hr Documented by: Piperacillin Sod/Tazobactam (Sod 3.375 gm/ Dextrose) 115 mls @ 28.75 mls/hr IV Q8H [facility]; Protocol Stop: 11/22/18 15:59 Last Admin: 11/16/18 07:53 Dose: 28.8 mls/hr Documented by: Tobramycin Sulfate 300 mg/ (Syringe) 7.5 mls @ 30 mls/hr INH MoWeFr@0700,1900 [facility] Stop: 12/15/18 18:59 Last Admin: 11/15/18 20:46 Dose: 30 mls/hr Documented by: Miscellaneous (Icu Protocol For Hyperglycemia) 1 ea N/A PRN PRN; Protocol PRN Reason: Hyperglycemia Protocol Stop: 11/17/18 14:48 Miscellaneous Information (Consult) 1 ea N/A UD PRN PRN Reason: Consult Stop: 12/15/18 14:48 Nitrofurantoin (Furadantin) 50 mg PEG DAILY [facility] Stop: 12/16/18 08:59 Last Admin: 11/16/18 09:15 Dose: 50 mg Documented by: Cetirizine 1mg/Ml: Non-Formulary Patient's Own Med 10 ea PEG DAILY [facility] Stop: 12/16/18 08:59 Last Admin: 11/16/18 09:16 Dose: 10 mg Documented by: Polyethylene Glycol (Miralax Powder Packet) 8.5 gm PEG DAILY PRN PRN Reason: bowel regiment Sterile Water (Tube Feeding Water Flush) 1 ea PO QID@07,1130,, [facility] Stop: 12/15/18 14:59 Last Admin: 11/16/18 07:24 Dose: 1 ea Documented by: Trazodone HCl (Desyrel) 50 mg PEG HS [facility] Stop: 12/15/18 20:59 Last Admin: 11/15/18 19:48 Dose: 50 mg Documented by: Valproic Acid (Valproic Acid) 550 mg PO TID [facility] Stop: 11/16/18 10:00 Last Admin: 11/16/18 09:12 Dose: 550 mg Documented by: Valproic Acid (Valproic Acid) 500 mg PO TID [facility] Stop: 12/16/18 13:59 Zonisamide (Zonegran) 1 ea PO HS [facility] Stop: 12/15/18 20:59 Last Admin: 11/15/18 19:49 Dose: 1 ea Documented by: Zonisamide (Zonegran) 2 ea PO QAM [facility] Stop: 12/16/18 08:59 PG Care Time/CCT Total # of Minutes Spent Total Time Spent with Patient: Total time spent is greater than 50% in coordination of care (as documented) at patient's floor/unit and/or counseling patient:
[2018-11-16] MEDS: CETIRIZINE 1 MG/ML PEG SCH (09:16)
--- NOTE | 2018-11-16 10:54 | Infectious Disease Consult ---
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 Pending further culture results, Zosyn should provide adequate coverage as previous isolates were fully sensitive. Will follow. (2) Pseudomonas aeruginosa colonization: History of Present Illness Reason for Consultation: Pneumonia with chronic trach Attending Physician: Jatinder Garcia History of Present Illness 23-year-old female with history of cerebral palsy, chronic respiratory failure with tracheostomy and need for intermittent mechanical ventilation, with known colonization with Pseudomonas receiving 3 times weekly KANDY nebs, who was admitted to the hospital yesterday with relatively sudden onset of shortness of breath and tachycardia consistent with previous episodes of pneumonia and respiratory failure. She was brought to the hospital and found to have evidence of new left lower lobe pneumonia. She is been started empirically on IV Zosyn and KANDY nebs continued. Cultures are pending. Plans for bronchoscopy. No report of fever. Allergies Allergy/AdvReac Type Severity Reaction Status Date / Time No Known Allergies Allergy Unverified 11/15/18 11:02 Home Medications Home Medications Medication Instructions Recorded Confirmed Type acetylcysteine 3 ml INHALATION BID 07/20/18 11/15/18 History albuterol sulfate 2.5 mg INHALATION Q4H PRN 07/20/18 11/15/18 History baclofen 20 mg FEEDING TUBE TID 07/20/18 11/15/18 History budesonide 2 ml INHALATION BID 07/20/18 11/15/18 History cetirizine 10 mg FEEDING TUBE DAILY 07/20/18 11/15/18 History clonazepam 0.5 mg FEEDING TUBE DIRECTED 07/20/18 11/15/18 History polyethylene glycol 3350 8.5 g FEEDING TUBE DAILY PRN 07/20/18 11/15/18 History tobramycin 4 cap INHALATION Q12H 07/20/18 11/15/18 History valproic acid (as sodium salt) 550 mg FEEDING TUBE TID 07/20/18 11/15/18 History zonisamide 100 mg FEEDING TUBE HS 07/20/18 11/15/18 History zonisamide 200 mg FEEDING TUBE QAM 07/20/18 11/15/18 History Boost 1.5 ea PO QID@07,1130,15,19 07/28/18 11/15/18 History water 120 ea PO QID@07,1130,15,19 07/28/18 11/15/18 History trazodone 50 mg FEEDING TUBE HS 09/16/18 11/15/18 History nitrofurantoin 25 mg/5 mL oral 50 mg FEEDING TUBE DAILY #230 ml 11/08/18 11/15/18 Rx suspension fluoxetine 20 mg FEEDING TUBE DAILY 11/15/18 11/15/18 History Patient History Medical History Hypoxia (Acute) PNA (pneumonia) (Acute) Pleural effusion (Acute) Cerebral palsy Seizure disorder Surgical History S/P percutaneous endoscopic gastrostomy (PEG) tube placement Status post tracheostomy Family History Other Family history non-contributory Social History Preferred Language: [place] Communication Ability: Impaired Beliefs That Will Affect Care: None Current Living Situation: Family Current Living Situation Comment: parent Feels Safe at Home: Yes Smoking Status: Never smoker Second Hand Exposure: No ; Hx Alcohol Use: No Hx Substance Use: No Review of Systems Review of Systems: Unobtainable due to cognitive status Physical Exam Constitutional: WD/WN, vitals as above comfortable; no acute distress Eyes: PERRL, conjunctivae normal, anicteric sclerae ENMT: external ear and nose normal, oropharynx normal Neck: trachea midline, no thyromegaly neck nontender Respiratory: normal percussion; does not use accessory muscles Auscultation: + rhonchi (Left-sided) Cardiovascular: Rate/Rhythm: regular rate and regular rhythm Heart Sounds: normal S1 and normal S2; no gallop, no murmur and no cardiac rub Vessels: normal peripheral pulses; no JVD Gastrointestinal (Abdomen): normal bowel sounds, soft, nontender, no hepatosplenomegaly Musculoskeletal: no cyanosis or clubbing, extremities motor strength 5/5 Spine: thoracic spine normal to inspection and lumbar spine normal to inspection; no cervical spinal tenderness Skin: no rashes, warm and dry normal turgor; no lesions Neurologic: awake (Nonverbal) Psychiatric: Patient nonverbal, not responsive to commands Lymphatic: no cervical or axillary lymphadenopathy no inguinal lymphadenopathy Results & Data Vital Signs (Past 12 Hours) Vital Signs Temp Pulse Pulse Pulse Resp BP BP 11/16/18 10:30 119 H 39 H 77/52 L 11/16/18 10:08 38.5 C H 11/16/18 10:00 124 H 44 H 83/60 L 11/16/18 09:30 124 H 47 H 103/65 11/16/18 09:00 126 H 37 H 93/62 L 11/16/18 08:30 131 H 40 H 83/56 L 11/16/18 08:00 136 H 46 H 91/55 L 11/16/18 07:30 134 H 38 H 95/62 L 11/16/18 07:23 132 H 18 11/16/18 07:00 38.2 C H 118 H 37 H 95/56 L 11/16/18 05:00 37.6 C H 118 H 31 H 104/63 11/16/18 03:08 27 H 11/16/18 03:06 133 H 27 H 11/16/18 03:00 128 H 39 H 100/63 11/16/18 02:00 125 H 39 H 103/59 L 11/16/18 01:00 126 H 38 H 101/57 L 11/15/18 23:00 37.7 C H 128 H 36 H 95/65 L Pulse Ox 11/16/18 10:30 90 11/16/18 10:08 11/16/18 10:00 91 11/16/18 09:30 93 11/16/18 09:00 94 11/16/18 08:30 90 11/16/18 08:00 91 11/16/18 07:30 93 11/16/18 07:23 95 11/16/18 07:00 92 11/16/18 05:00 91 11/16/18 03:08 11/16/18 03:06 94 11/16/18 03:00 11/16/18 02:00 94 11/16/18 01:00 11/15/18 23:00 92 Laboratory Results Short CBC 11/15/18 11/16/18 Range/Units 12:05 04:55 WBC 16.94 H 15.37 H (4.8-10.8) K/uL Hgb 12.3 12.1 (12.0-16.0) g/dL Hct 36.0 L 36.1 L (37-47) % Plt Count 103 L 86 L (130-400) K/uL BMP 11/15/18 11/15/18 11/16/18 11:44 12:05 04:55 Sodium Cancelled 133 L 136 Potassium Cancelled 3.9 3.3 L D Chloride Cancelled 102 105 Carbon Dioxide Cancelled 21 24 BUN Cancelled 16 9 D Creatinine Cancelled 0.45 L 0.46 L Glucose Cancelled 110 H 94 Calcium Cancelled 8.2 L 8.5 Liver Function 11/15/18 11/15/18 Range/Units 11:44 12:05 Total Bilirubin Cancelled 0.5 AST Cancelled 12 L ALT Cancelled 12 Alkaline Phosphatase Cancelled 79 Albumin Cancelled 3.0 L Urine 11/15/18 Range/Units 13:02 Urine Color Dark Yellow Urine Appearance Clear (Clear) Urine pH 8.0 H (4.5-7.5) Ur Specific [place] 1.040 H (1.000-1.030) Urine Protein Negative (Negative) Urine Glucose (UA) Negative (Negative) Diagnostic Findings Microbiology 11/15/18 11:48 Sputum,Trach Gram Stain - Final 11/15/18 11:48 Sputum,Trach Sputum Culture - Preliminary Probable Pseudomonas species 11/15/18 17:09 Bronch Wash,Left Lower Lobe Fungal Smear - Final 11/15/18 17:09 Bronch [place], Left Lower Lobe Gram Stain - Final SINGLE VIEW CHEST CLINICAL HISTORY: Cough. FINDINGS: An AP, portable, upright chest radiograph is compared to study dated 09/16/2018. The examination is significantly degraded by portable technique and patient rotation. A tracheostomy is in place. The cardiomediastinal silhouette is unremarkable. Airspace consolidation is seen at the left lung base and at the left apex. There is a small left pleural effusion. The right lung is grossly clear. No pneumothorax is seen. The bony thorax is grossly intact. IMPRESSION: There is left basilar and left apical airspace consolidation with a small left pleural effusion. The appearance is typical for pneumonia/aspiration pneumonitis. Clinical correlation will be required and radiographic follow-up to resolution is recommended. Electronically signed by: Wily Nowak M.D. 11/15/2018 12:13 PM Dictated: 11/15/18 1211 Transcribed: 11/15/18 1211 PG Care Time/CCT Total # of Minutes Spent Total Time Spent with Patient: Total time spent is greater than 50% in coordination of care (as documented) at patient's floor/unit and/or counseling patient: (1) Pneumonia Laterality: left Lung location: lower lobe of lung Pneumonia type: due to unspecified organism Qualified Code(s): J18.1 - Lobar pneumonia, unspecified organism
[2018-11-16] MEDS ORDERED: fentaNYL citrate 100 MCG/2 ML VIAL ONE (11:20)
[2018-11-16] MEDS ORDERED: fentaNYL citrate 100 MCG/2 ML VIAL IV ONE (11:33)
[2018-11-16] MEDS ORDERED: PATIENT'S OWN ENTERAL FEEDING PEG SCH (13:00)
--- NOTE | 2018-11-16 13:39 | XRay Report ---
XR chest 1V portable HISTORY: 23 years-old Female s/p bronch follow-up study in a patient with recent bronchoscopy COMPARISON: Chest radiograph 11/15/2018 TECHNIQUE: Semierect AP view of the chest FINDINGS: Patient is side bent towards the left. Tracheostomy cannula is in stable positioning. Cardiomediastin al and hilar silhouettes are unchanged. Small left pleural effusion with left midlung and left lung b ase opacities persists. No postprocedural pneumothorax identified. Right lung appears generally clear . Bones appear grossly intact. IMPRESSION: 1. No pneumothorax. 2. Left midlung and left lung base opacities with left pleural effusion redemonstrated. 3. Stable positioning of the tracheostomy cannula. The above report was generated using voice recognition software. It may contain grammatical, syntax o r spelling errors. Electronically signed by: Finn Townsend M.D. 11/16/2018 1:37 PM
--- NOTE | 2018-11-16 20:45 | Hospitalist Progress Note ---
Date of Service November 16, 2018 Assessment & Plan (1) Acute on chronic respiratory failure with hypoxia and hypercapnia: chronically vented at night-time via trach at home. continue such here per critical care team. during daytime provide O2 support. acute resp failure 2nd to left-sided pneumonia - probably 2nd to pseudomonas. defer management to ICU/pulmonary providers. (2) Sepsis: 2nd to pneumonia - ongoing. ID, critical care, pulmonary managing antibiotics. cont broad-spectrum IV abx and inhaled tobramycin. flu ag testing was negative but high false negative rate. would obtain PCR since it is more sensitive/specific just to be complete. follow cultures. (3) Pneumonia: 2nd to pseudomonas. see above (4) History of tracheostomy: chronic trach with night-time vent use at home. 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 at baseline is nonverbal, does not follow commands, bed-bound w/ contractures. (6) Seizure disorder: no issues cont home meds keep electrolytes normal (7) Thrombocytopenia: likely sepsis-associated repeat CBC am (8) Hypokalemia: replace repeat level AM (9) DVT prophylaxis: SCDs at minimum consider SC heparin will follow Subjective events of last 24 hours noted care d/w Dr Tariq and Dr Matthew remained febrile this am s/p bronch with green/yellow secretions from left bronchial system obtained following bronch she was more comfortable with less tachypnea and distress Review of Systems Review of Systems: Unobtainable due to mental health condition and Unobtainable due to cognitive status Physical Exam Constitutional: + thin, + language barrier (nonverbal ) and + frail appearing; + not well developed, + not well nourished and no acute distress ENMT: Mouth: oral mucous membranes not dry trach in place Respiratory: + respiratory distress, + uses accessory muscles and + tachypneic Auscultation: + diminished lung sounds (left) and + crackles (left ) course BS on left; CTA on right Cardiovascular: Rate/Rhythm: regular rhythm and + tachycardic Heart Sounds: normal S1 and normal S2; no murmur Vessels: posterior tibial pulses present and dorsalis pedis pulses present; no JVD Extremities: + edema (trace b/l ) Gastrointestinal (Abdomen): normal bowel sounds, soft, nontender, no hepatosplenomegaly PEG in place; clean Skin: no rashes, warm and dry Neurologic: contractures of legs; roving eye movements (baseline); nonverbal, does not follow any commands (baseline) Results & Data Vital Signs (Past 12 Hours) Vital Signs Temp Pulse Pulse Pulse Resp BP Pulse Ox 11/16/18 20:33 131 H 24 97 11/16/18 19:30 134 H 56 H 105/62 92 11/16/18 19:00 136 H 37 H 124/61 94 11/16/18 18:30 39.0 C H 135 H 27 H 104/61 94 11/16/18 18:00 136 H 54 H 111/64 96 11/16/18 17:30 127 H 41 H 91/57 L 92 11/16/18 17:00 123 H 43 H 97/48 L 97 11/16/18 16:30 124 H 44 H 102/58 L 97 11/16/18 16:00 36.7 C 121 H 32 H 102/52 L 93 11/16/18 15:30 120 H 39 H 108/63 95 11/16/18 15:15 115 H 18 90 11/16/18 15:00 112 H 35 H 105/71 96 11/16/18 14:30 110 H 32 H 106/74 95 11/16/18 14:00 104 H 35 H 94/57 L 98 11/16/18 13:30 105 H 32 H 88/52 L 98 11/16/18 13:02 105 H 34 H 85/50 L 98 11/16/18 13:00 105 H 28 H 85/50 L 97 11/16/18 12:30 113 H 39 H 96/62 L 97 11/16/18 12:22 105 H 33 H 77/45 L 99 11/16/18 12:20 104 H 34 H 78/44 L 98 11/16/18 12:15 105 H 35 H 79/44 L 98 11/16/18 12:10 107 H 37 H 78/46 L 98 11/16/18 12:05 108 H 40 H 78/47 L 98 11/16/18 12:00 109 H 42 H 76/46 L 97 11/16/18 11:55 109 H 42 H 76/41 L 97 11/16/18 11:50 109 H 45 H 85/48 L 97 11/16/18 11:48 110 H 18 96 11/16/18 11:45 108 H 33 H 82/49 L 97 11/16/18 11:40 111 H 46 H 87/53 L 97 11/16/18 11:35 113 H 29 H 84/52 L 98 11/16/18 11:31 128 H 25 H 96/69 L 88 L 11/16/18 11:25 127 H 24 109/58 L 89 L 11/16/18 11:22 121 H 15 100/77 93 11/16/18 11:00 114 H 38 H 87/48 L 92 11/16/18 10:30 119 H 39 H 77/52 L 90 11/16/18 10:08 38.5 C H 11/16/18 10:00 124 H 44 H 83/60 L 91 11/16/18 09:30 124 H 47 H 103/65 93 11/16/18 09:00 126 H 37 H 93/62 L 94 Laboratory Results Laboratory Results - last 24 hr 11/16/18 11/16/18 11/16/18 12:46 18:40 22:41 WBC RBC Hgb Hct MCV MCH MCHC RDW Std Deviation RDW Coeff of [place] Plt Count MPV Immature Gran % (Auto) Neut % (Auto) Lymph % (Auto) [place] % (Auto) Eos % (Auto) Baso % (Auto) Immature Gran # (Auto) Neut # (Auto) Lymph # (Auto) [place] # (Auto) Eos # (Auto) Baso # (Auto) RBC Morphology Sodium Potassium Chloride Carbon Dioxide Anion Gap BUN Creatinine Est Cr Clr Drug Dosing Est GFR ( Amer) Est GFR (Non-Af Amer) BUN/Creatinine Ratio Glucose POC Glucose 183 H 89 Calcium Phosphorus Magnesium Total Bilirubin AST ALT Alkaline Phosphatase Total Protein Albumin Globulin Albumin/Globulin Ratio Influenza Type A Ag Neg for Influ A Influenza Type A (PCR) Cancelled Influenza Type B Ag Neg for Influ B Influenza Type B (PCR) Cancelled 11/17/18 11/17/18 04:34 04:34 WBC 11.56 H RBC 3.67 L Hgb 12.6 Hct 36.4 L MCV 99.2 MCH 34.3 H MCHC 34.6 RDW Std Deviation 47.3 H RDW Coeff of [place] 12.8 Plt Count 76 L MPV 9.4 Immature Gran % (Auto) 0.2 Neut % (Auto) 82.3 Lymph % (Auto) 5.4 [place] % (Auto) 12.0 Eos % (Auto) 0.0 Baso % (Auto) 0.1 Immature Gran # (Auto) 0.02 Neut # (Auto) 9.51 H Lymph # (Auto) 0.63 L [place] # (Auto) 1.39 H Eos # (Auto) 0.00 Baso # (Auto) 0.01 RBC Morphology Unremarkable Sodium 136 Potassium 3.4 L Chloride 103 Carbon Dioxide 27 Anion Gap 6.0 BUN 7 Creatinine 0.50 L Est Cr Clr Drug Dosing 123.4 Est GFR ( Amer) > 150.0 Est GFR (Non-Af Amer) 137.4 BUN/Creatinine Ratio 14.7 Glucose 100 H POC Glucose Calcium 8.9 Phosphorus 3.4 Magnesium 1.9 Total Bilirubin 0.5 AST 12 L ALT 10 L Alkaline Phosphatase 73 Total Protein 7.7 Albumin 2.8 L Globulin 4.9 H Albumin/Globulin Ratio 0.6 L Influenza Type A Ag Influenza Type A (PCR) Influenza Type B Ag Influenza Type B (PCR) PG Care Time/CCT Total # of Minutes Spent Total Time Spent with Patient: Total time spent is greater than 50% in coordination of care (as documented) at patient's floor/unit and/or counseling patient: (1) Sepsis Sepsis acute organ dysfunction status: unspecified Sepsis type: sepsis due to unspecified organism Qualified Code(s): A41.9 - Sepsis, unspecified organism (2) Pneumonia Laterality: left Lung location: lower lobe of lung Pneumonia type: due to unspecified organism Qualified Code(s): J18.1 - Lobar pneumonia, unspecified organism
[2018-11-16] MEDS: TRAZODONE HCL 50 MG TAB PEG SCH (21:14)
[2018-11-16] MEDS: ZONISAMIDE 100 MG PO SCH (21:15)
[2018-11-17] MEDS: PIPERACILLIN/TAZOBACTAM 3.375 GM in DEXTROSE 5% 100 ML IV SCH ×4 (01:20→16:53)
[2018-11-17] MEDS: ALBUT/IPRATROP 3MG/0.5MG NEB 3 ML VIAL NEB SCH ×6 (03:52→23:06)
[2018-11-17 04:49] LABS: Hematocrit (blood only) 36.4 % (37-47); Hemoglobin 12.6 g/dL (12.0-16.0); Mean Corpuscular Hemoglobin 34.3 pg (25-34); Mean Corpuscular Hgb Conc 34.6 g/dL (32-36); Mean Corpuscular Volume 99.2 fL (80-100); RDW Coefficient of Variation 12.8 % (11.5-14.5); RDW Standard Deviation 47.3 fL (36.4-46.3); Red Blood Count 3.67 M/uL (4.2-5.4); White Blood Count 11.56 K/uL (4.8-10.8)
[2018-11-17 04:53] LABS: Mean Platelet Volume 9.4 fL (7.4-10.4); Platelet Count 76 K/uL (130-400)
[2018-11-17 05:09] LABS: Alanine Aminotransferase 10 U/L (12-78); Albumin Level 2.8 gm/dl (3.4-5.0); Aspartate Aminotransferase 12 U/L (15-37); BUN Creatinine Ratio 14.7 (10-20); Basophils # (auto) 0.01 K/uL (0-0.2); Basophils % (auto) 0.1 %; Blood Urea Nitrogen 7 mg/dl (7-18); Calcium 8.9 mg/dl (8.5-10.1); Carbon Dioxide 27 mmol/L (21-32); Chloride 103 mmol/L (98-107); Creatinine Clr Calc Pharmacy 123.4 ml/min; Est GFR (African American) > 150.0; Est GFR (Non-African American) 137.4; Glucose 100 mg/dl (70-99); Immature Granulocytes # (auto) 0.02 K/uL (0.00-0.02); Immature Granulocytes % (auto) 0.2 %; Lymphocytes # (auto) 0.63 K/uL (1.2-3.4); Lymphocytes % (auto) 5.4 %; Magnesium 1.9 mg/dl (1.8-2.4); Monocytes # (auto) 1.39 K/uL (0.11-0.59); Neutrophils # (auto) 9.51 K/uL (1.4-6.5); Neutrophils % (auto) 82.3 %; Potassium 3.4 mmol/L (3.5-5.1); RBC Morphology Unremarkable; Sodium 136 mmol/L (136-145)
[2018-11-17 05:26] LABS: Albumin Globulin Ratio 0.6 (0.9-2); Alkaline Phosphatase 73 U/L (45-117); Bilirubin,Total 0.5 mg/dl (0.2-1); Globulin 4.9 gm/dl (2.5-4.0); Phosphorus 3.4 mg/dl (2.5-4.9); Total Protein 7.7 gm/dl (6.4-8.2)
[2018-11-17] MEDS ORDERED: POTASSIUM CHLORIDE 20 MEQ/15 ML UDC PO STA (05:32)
[2018-11-17] MEDS: PATIENT'S OWN ENTERAL FEEDING PEG SCH ×4 (06:39→19:00)
[2018-11-17] MEDS: TUBE FEEDING WATER FLUSH PO SCH ×4 (06:39→19:00)
--- NOTE | 2018-11-17 07:05 | Critical Care Progress Note ---
Date of Service November 17, 2018 Assessment & Plan (1) Pneumonia: Reason Critically Ill: HIgh risk patient with tracheostomy with pneumonia. Cardiovascular: Patient tachycardic and blood pressures slightly low/normal Close to patient's baseline from previous admissions WIll monitor and give fluid as needed Respiratory: Pneumonia seen on CXR Started on zosyn in ED, On ventilator at night Underwent bronchoscopy again yesterday with large amount of mucus suctioned and mucomyst injected into bronchi Patient does appear to be moving mucus okay With increased salivary secretions, may consider scopolamine patch ID: Sputum culture growing pseudomonas sensitive to zosyn Sent bronchial samples for culture as well also growing pseudomonas On zosyn for this pneumonia and chronic tobramycin for chronic pseudomonal infection Discussed pneumonia vaccination status with mother, she has been adequately vaccinated. She can either get a booster later this year or anytime in the next five for her PPSV vaccination. Neuro: Patient at baseline neuro status, unable to converse not oriented to person place or time Patient with history of seizure disorder as well, will continue home depakote GI: Will continue home PEG tube feeds Heme: No hematologic abnormality at this time other than elevated white count secondary to infection Renal: Kidney function normal at baseline Blood draws to every other day DVT PPx: Not ordered F/E/N: HOme tube feeds Dipso: ICU Code Status: Conditional, see details on chart (2) S/P admission to ICU (intensive care unit): Supervising Physician Co-Signing Physician Notes Dr. Jaramillo was resident physician during care of patient. I separately evaluated patient for canales portions of the history and the exam. I was present during the critical portion of medical decision making, and I discussed the case with the resident. I generally agree with the findings and plan. Sepsis secondary to multidrug-resistant Pseudomonas causing left lower lobe p neumonia. Patient's bronchoscopy today shows improvement in clearing in secretions however still has significant oxygen requirement, I anticipate the patient will need another bronchoscopy tomorrow. I had an extensive discussion with the patient's mother. We discussed goals of care should this Pseudomonas colonization convert into a very resistant organism. She admits that she has thought about this occurring and recognizes that this will likely be a problem that will need to be addressed in the future. She emphasized that a major overarching goal would be to not see her daughter suffer especially if an infection is significantly difficult to treat, would be exposing to significant side effects of medical therapies and would require significant labor-intensive bronchoscopies which are obvious that she does not enjoy however does obtain significant improvement and relief from her secretions. Again DO NOT RESUSCITATE in event of cardiac arrest. Subjective Selvin is doing okay this morning, having a lot of salivary secretions that were suctioned by respiratory therapy. Review of Systems Review of Systems: All systems reviewed & are unremarkable except as noted in HPI & below Physical Exam Eyes: PERRL, conjunctivae normal, anicteric sclerae ENMT: external ear and nose normal, oropharynx normal Respiratory: Breath sounds coarse, but good air entry globally. chest expansion symmetric. Large amount of secretions from mouth that seem to be causing upper airway rhonci Cardiovascular: Rate/Rhythm: regular rhythm and + tachycardic; + abnormal rate Heart Sounds: normal S1 and normal S2; no murmur and no cardiac rub Gastrointestinal (Abdomen): normal bowel sounds, soft, nontender, no hepatosplenomegaly Results & Data Vital Signs (Past 12 Hours) Vital Signs Temp Pulse Pulse Resp BP Pulse Ox 11/17/18 06:00 113 H 34 H 96/70 L 92 11/17/18 05:30 119 H 20 101/65 91 11/17/18 05:00 119 H 18 111/82 94 11/17/18 04:30 113 H 29 H 103/71 93 11/17/18 04:00 37.0 C 113 H 29 H 95/65 L 93 11/17/18 03:52 113 H 93 11/17/18 03:30 108 H 24 108/74 95 11/17/18 03:00 108 H 32 H 90/53 L 92 11/17/18 02:30 115 H 35 H 97/64 L 93 11/17/18 02:00 116 H 21 99/69 L 93 11/17/18 01:30 112 H 30 H 92/62 L 92 11/17/18 01:00 116 H 32 H 103/67 95 11/17/18 00:30 106 H 32 H 87/55 L 96 11/17/18 00:00 37.4 C 116 H 30 H 86/52 L 94 11/16/18 23:30 113 H 34 H 83/49 L 98 11/16/18 23:27 115 H 11/16/18 23:05 113 H 96 11/16/18 23:00 112 H 32 H 83/45 L 96 11/16/18 22:30 119 H 41 H 97/43 L 97 11/16/18 22:00 130 H 42 H 102/53 L 94 11/16/18 21:30 131 H 25 H 111/58 L 96 11/16/18 21:22 37.9 C H 11/16/18 21:00 143 H 39 H 116/61 96 11/16/18 20:33 131 H 24 97 11/16/18 20:30 134 H 70 H 93/59 L 97 11/16/18 20:00 141 H 20 116/64 93 11/16/18 19:30 134 H 56 H 105/62 92 PG Care Time/CCT Total # of Minutes Spent Total Time Spent with Patient: Total time spent is greater than 50% in coordination of care (as documented) at patient's floor/unit and/or counseling patient: Critical Care Time: Yes Total Critical Care Time: 45 Resident Activity Tracking Resident Involvement: Resident Care Provided Care Provided: Adult Hospital Medicine (1) Pneumonia Laterality: left Lung location: lower lobe of lung Pneumonia type: due to unspecified organism Qualified Code(s): J18.1 - Lobar pneumonia, unspecified organism
[2018-11-17] MEDS: ACETYLCYSTEINE 10% INHAL SOLN **DISPENSED FROM RESP. INH SCH ×2 (07:25→19:35)
[2018-11-17] MEDS: TOBRAMYCIN SULFATE 300 MG in SYRINGE 0 ML INH SCH ×2 (07:25→19:50)
[2018-11-17] MEDS: BUDESONIDE 0.5 MG/2 ML VIAL (PULMICORT) INH SCH ×2 (07:25→19:12)
[2018-11-17] MEDS: FLUOXETINE HCL 20 MG/5 ML UDP NG SCH (07:47)
[2018-11-17] MEDS: VALPROIC ACID SOLN 500 MG/10 ML UDC PO SCH ×3 (07:47→21:09)
[2018-11-17] MEDS: BACLOFEN 20 MG TAB PO SCH ×3 (07:48→21:09)
[2018-11-17] MEDS: NITROFURANTOIN 25 MG/5 ML PEG SCH (07:49)
[2018-11-17] MEDS: CETIRIZINE 1 MG/ML PEG SCH (07:50)
[2018-11-17] MEDS ORDERED: SCOPOLAMINE 1.5 MG TDSY TD SCH (08:45)
--- NOTE | 2018-11-17 09:58 | XRay Report ---
XR chest 1V portable CLINICAL HISTORY: Respiratory distress. COMPARISON STUDY: Chest radiograph November 16, 2018. FINDINGS: Tracheostomy tube is in place. Left lower lung airspace opacity with air bronchograms and v olume loss is similar to prior exam. There is mild right basilar opacity. There is a suspected small left pleural effusion. There is no pneumothorax. IMPRESSION: 1. No change in left basilar opacity with volume loss. This favors pneumonia although atelectasis cou ld appear similar. Suspected small left pleural effusion. 2. Mild right basilar opacity. Electronically signed by: Otto Pearce M.D. 11/17/2018 9:56 AM
[2018-11-17] MEDS ORDERED: fentaNYL citrate 100 MCG/2 ML VIAL ONE ×2 (11:40→11:51)
[2018-11-17] MEDS ORDERED: fentaNYL citrate 100 MCG/2 ML VIAL IV STA (13:25)
[2018-11-17] MEDS: CHECK SCOPOLAMINE PATCH PLACEMENT SCH (16:51)
--- NOTE | 2018-11-17 18:09 | Procedure Note ---
Procedure Note Date of Service November 17, 2018 Procedure date: Noted above Procedure: fiberoptic bronchoscopy Pre-procedure indication: Left lower lobe pulmonary infiltrate Post-procedure Diagnosis: same as above Prior to Procedure: Informed Consent: The risks, benefits, indications, potential complications, and alternatives were explained to the patient's mother and informed consent obtained. Attending Staff: Lavon Tariq DO Resident/APC: Clint Skin Prep: Not applicable Anesthesia: 75 mcg fentanyl The identity of the patient was confirmed and a bedside time out was performed. Description of Procedure: Fiberoptic bronchoscopy was performed via tracheostomy tube. Bronchioalveolar lavage left upper and left lower lobes was performed. Findings included: Continued yellow mucoid impaction, improvement in secretion quality and less secretion burden compared to yesterday Complications: None Specimens: None Estimated blood loss: Zero Coding CPT Codes Pulmonary/Thoracic - Pulmonary and Thoracic: Bronchoscopy, reclear airway ([id number])
--- NOTE | 2018-11-17 18:12 | Procedure Note ---
Procedure Note: Bronchoscopy Procedure Procedure date: November 16, 2018 Procedure: fiberoptic bronchoscopy Pre-procedure indication: Pulmonary infiltrate of the left lower lobe Post-procedure Diagnosis: same as above Prior to Procedure: Informed Consent: The risks, benefits, indications, potential complications, and alternatives were explained to the patient's mother and informed consent obtained. Attending Staff: Lavon Tariq DO Resident/APC: Clint Skin Prep: Not applicable Anesthesia: 75 mcg fentanyl The identity of the patient was confirmed and a bedside time out was performed. Description of Procedure: Fiberoptic bronchoscopy was performed via tracheostomy tube. Bronchioalveolar lavage of the left main bronchus, left upper lobe left lower lobe was performed. Findings included: Mucoid impaction in the left upper and lower lobes concentrated in left lower. Mucus is yellow, multiple aliquots of saline were instilled. Complications: None Specimens: None Estimated blood loss: Zero
--- NOTE | 2018-11-17 19:56 | Hospitalist Progress Note ---
Date of Service November 17, 2018 Assessment & Plan (1) Acute on chronic respiratory failure with hypoxia and hypercapnia: acute resp failure 2nd to left-sided pneumonia - 2nd to pseudomonas. remains on zosyn/inhaled tobramycin. s/p bronch x 2 for removal of mucous plugs. defer management to ICU/pulmonary providers. acute component stable. cont night-time vent -- has home unit. (2) Sepsis: 2nd to pneumonia - ongoing but improved. ID, critical care, pulmonary managing antibiotics. cont broad-spectrum IV abx and inhaled tobramycin. flu ag testing was negative but high false negative rate. ordered flu PCR but it was canceled. follow cultures. (3) Pneumonia: 2nd to pseudomonas. see above (4) History of tracheostomy: chronic trach with night-time vent use at home. cont night-time vent. 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 at baseline is nonverbal, does not follow commands, bed-bound w/ contractures. (6) Seizure disorder: no issues cont home meds keep electrolytes normal (7) Thrombocytopenia: likely sepsis-associated counts low but acceptable follow (8) Hypokalemia: improving nearly normal today replacement per ICU protocol (9) DVT prophylaxis: SCDs at minimum consider SC heparin but use caution in light of low platelets Subjective no new issues overnight. s/p bronch again today - mucous plugs removed by Dr Tariq. Review of Systems Review of Systems: Unobtainable due to cognitive status Physical Exam Constitutional: + thin, + language barrier (nonverbal ) and + frail appearing; + not well developed, + not well nourished and no acute distress ENMT: Mouth: oral mucous membranes not dry Respiratory: + tachypneic; no respiratory distress and does not use accessory muscles Auscultation: + diminished lung sounds (left) and + crackles (left ) Cardiovascular: Rate/Rhythm: regular rhythm and + tachycardic Heart Sounds: normal S1 and normal S2; no murmur Vessels: posterior tibial pulses present and dorsalis pedis pulses present; no JVD Extremities: + edema (trace b/l ) Gastrointestinal (Abdomen): normal bowel sounds, soft, nontender, no hepatosplenomegaly Skin: no rashes, warm and dry Neurologic: contractures of arms/legs; nonverbal Results & Data Vital Signs (Past 12 Hours) Vital Signs Temp Pulse Pulse Resp BP BP Pulse Ox 11/17/18 19:15 103 H 20 94 11/17/18 18:00 96 H 41 H 90/56 L 96 11/17/18 17:00 104 H 46 H 95/52 L 94 11/17/18 16:00 36.8 C 109 H 46 H 92/53 L 93 11/17/18 15:14 106 H 35 H 98 11/17/18 15:00 103 H 42 H 96/54 L 99 11/17/18 14:00 36.8 C 108 H 28 H 90/53 L 97 11/17/18 13:00 106 H 34 H 96/53 L 97 11/17/18 12:13 113 H 44 H 93/54 L 90 11/17/18 12:08 115 H 41 H 93/58 L 90 11/17/18 12:03 118 H 41 H 106/65 89 L 11/17/18 12:00 37.0 C 116 H 28 H 104/53 L 89 L 11/17/18 11:55 134 H 26 H 95/73 L 89 L 11/17/18 11:50 124 H 36 H 122/75 86 L 11/17/18 11:45 121 H 36 H 84/57 L 90 11/17/18 11:26 57 H 91 11/17/18 10:35 116 H 37 H 93 11/17/18 10:00 37.1 C 11/17/18 08:00 37.1 C 120 H 45 H 98/60 L 94 Laboratory Results Laboratory Results - last 24 hr 11/16/18 11/17/18 11/17/18 22:41 04:34 04:34 WBC 11.56 H RBC 3.67 L Hgb 12.6 Hct 36.4 L MCV 99.2 MCH 34.3 H MCHC 34.6 RDW Std Deviation 47.3 H RDW Coeff of [place] 12.8 Plt Count 76 L MPV 9.4 Immature Gran % (Auto) 0.2 Neut % (Auto) 82.3 Lymph % (Auto) 5.4 [place] % (Auto) 12.0 Eos % (Auto) 0.0 Baso % (Auto) 0.1 Immature Gran # (Auto) 0.02 Neut # (Auto) 9.51 H Lymph # (Auto) 0.63 L [place] # (Auto) 1.39 H Eos # (Auto) 0.00 Baso # (Auto) 0.01 RBC Morphology Unremarkable Sodium 136 Potassium 3.4 L Chloride 103 Carbon Dioxide 27 Anion Gap 6.0 BUN 7 Creatinine 0.50 L Est Cr Clr Drug Dosing 123.4 Est GFR ( Amer) > 150.0 Est GFR (Non-Af Amer) 137.4 BUN/Creatinine Ratio 14.7 Glucose 100 H POC Glucose Calcium 8.9 Phosphorus 3.4 Magnesium 1.9 Total Bilirubin 0.5 AST 12 L ALT 10 L Alkaline Phosphatase 73 Total Protein 7.7 Albumin 2.8 L Globulin 4.9 H Albumin/Globulin Ratio 0.6 L Influenza Type A Ag Neg for Influ A Influenza Type A (PCR) Cancelled Influenza Type B Ag Neg for Influ B Influenza Type B (PCR) Cancelled 11/17/18 06:19 WBC RBC Hgb Hct MCV MCH MCHC RDW Std Deviation RDW Coeff of [place] Plt Count MPV Immature Gran % (Auto) Neut % (Auto) Lymph % (Auto) [place] % (Auto) Eos % (Auto) Baso % (Auto) Immature Gran # (Auto) Neut # (Auto) Lymph # (Auto) [place] # (Auto) Eos # (Auto) Baso # (Auto) RBC Morphology Sodium Potassium Chloride Carbon Dioxide Anion Gap BUN Creatinine Est Cr Clr Drug Dosing Est GFR ( Amer) Est GFR (Non-Af Amer) BUN/Creatinine Ratio Glucose POC Glucose 87 Calcium Phosphorus Magnesium Total Bilirubin AST ALT Alkaline Phosphatase Total Protein Albumin Globulin Albumin/Globulin Ratio Influenza Type A Ag Influenza Type A (PCR) Influenza Type B Ag Influenza Type B (PCR) PG Care Time/CCT Total # of Minutes Spent Total Time Spent with Patient: Total time spent is greater than 50% in coordination of care (as documented) at patient's floor/unit and/or counseling patient: (1) Sepsis Sepsis acute organ dysfunction status: unspecified Sepsis type: sepsis due to unspecified organism Qualified Code(s): A41.9 - Sepsis, unspecified organism (2) Pneumonia Laterality: left Lung location: lower lobe of lung Pneumonia type: due to unspecified organism Qualified Code(s): J18.1 - Lobar pneumonia, unspecified organism
[2018-11-17] MEDS: TRAZODONE HCL 50 MG TAB PEG SCH (21:09)
[2018-11-17] MEDS: ZONISAMIDE 100 MG PO SCH (21:11)
[2018-11-17] MEDS ORDERED: ACETAMINOPHEN SOLN 500 MG/15.62 ML UDP PO STA (21:22)
[2018-11-17] MEDS ORDERED: ACETAMINOPHEN 500 MG TAB ONE (21:27)
--- NOTE | 2018-11-17 21:31 | Infectious Disease Progress Nt ---
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 Pending further culture results, Zosyn should provide adequate coverage as previous isolates were fully sensitive. Will follow. (2) Pseudomonas aeruginosa colonization: Subjective Patient seen in follow-up for pneumonia and possible Pseudomonas infection. Status post bronchoscopy for mucous plugging. Breathing better after procedure. No fever. Cultures growing Pseudomonas. Review of Systems Review of Systems: All systems reviewed & are unremarkable except as noted in HPI & below Physical Exam Constitutional: WD/WN, vitals as above no acute distress Eyes: PERRL, conjunctivae normal, anicteric sclerae ENMT: external ear and nose normal, oropharynx normal Neck: trachea midline, no thyromegaly Tracheostomy in place Respiratory: no respiratory distress Auscultation: + rhonchi (Left-sided) Cardiovascular: RRR, no murmur, no edema Gastrointestinal (Abdomen): normal bowel sounds, soft, nontender, no hepatosplenomegaly Musculoskeletal: no cyanosis or clubbing, extremities motor strength 5/5 Head/Neck/Chest: normocephalic, head atraumatic and neck supple Skin: no rashes, warm and dry Neurologic: moves all extremities and awake Psychiatric: A+Ox3, euthymic affect Lymphatic: no cervical or axillary lymphadenopathy no inguinal lymphadenopathy Results & Data Vital Signs (Past 12 Hours) Vital Signs Temp Pulse Pulse Pulse Pulse Resp BP 11/17/18 20:00 37.7 C H 108 H 108 H 108 H 41 H 11/17/18 19:15 103 H 20 11/17/18 18:00 96 H 41 H 90/56 L 11/17/18 17:00 104 H 46 H 95/52 L 11/17/18 16:00 36.8 C 109 H 46 H 92/53 L 11/17/18 15:14 106 H 35 H 11/17/18 15:00 103 H 42 H 96/54 L 11/17/18 14:00 36.8 C 108 H 28 H 90/53 L 11/17/18 13:00 106 H 34 H 96/53 L 11/17/18 12:13 113 H 44 H 11/17/18 12:08 115 H 41 H 11/17/18 12:03 118 H 41 H 11/17/18 12:00 37.0 C 116 H 28 H 11/17/18 11:55 134 H 26 H 11/17/18 11:50 124 H 36 H 11/17/18 11:45 121 H 36 H 11/17/18 11:26 57 H 11/17/18 10:35 116 H 37 H 11/17/18 10:00 37.1 C BP Pulse Ox 11/17/18 20:00 94/54 L 93 11/17/18 19:15 94 11/17/18 18:00 96 11/17/18 17:00 94 11/17/18 16:00 93 11/17/18 15:14 98 11/17/18 15:00 99 11/17/18 14:00 97 11/17/18 13:00 97 11/17/18 12:13 93/54 L 90 11/17/18 12:08 93/58 L 90 11/17/18 12:03 106/65 89 L 11/17/18 12:00 104/53 L 89 L 11/17/18 11:55 95/73 L 89 L 11/17/18 11:50 122/75 86 L 11/17/18 11:45 84/57 L 90 11/17/18 11:26 91 11/17/18 10:35 93 11/17/18 10:00 Laboratory Results Short CBC 11/17/18 Range/Units 04:34 WBC 11.56 H (4.8-10.8) K/uL Hgb 12.6 (12.0-16.0) g/dL Hct 36.4 L (37-47) % Plt Count 76 L (130-400) K/uL BMP 11/17/18 04:34 Sodium 136 Potassium 3.4 L Chloride 103 Carbon Dioxide 27 BUN 7 Creatinine 0.50 L Glucose 100 H Calcium 8.9 Liver Function 11/17/18 Range/Units 04:34 Total Bilirubin 0.5 (0.2-1) mg/dl AST 12 L (15-37) U/L ALT 10 L (12-78) U/L Alkaline Phosphatase 73 (45-117) U/L Albumin 2.8 L (3.4-5.0) gm/dl Diagnostic Findings Microbiology 11/15/18 11:44 Blood Aerobic Blood Culture - Preliminary No growth in Aerobic bottle after 48 hours. 11/15/18 11:44 Blood Anaerobic Blood Culture - Final 11/15/18 17:09 Bronch [place], Left Lower Lobe Acid Fast Bacilli Smear - Final 11/15/18 17:09 Bronch [place], Left Lower Lobe Gram Stain - Final 11/15/18 17:09 Bronch [place], Left Lower Lobe Bronchoalveolar Lavage Culture - Final Pseudomonas aeruginosa 11/15/18 11:48 Sputum,Trach Gram Stain - Final 11/15/18 11:48 Sputum,Trach Sputum Culture - Final Pseudomonas aeruginosa 11/15/18 17:09 Bronch Wash,Left Lower Lobe Fungal Smear - Final PG Care Time/CCT Total # of Minutes Spent Total Time Spent with Patient: Total time spent is greater than 50% in coordination of care (as documented) at patient's floor/unit and/or counseling patient: (1) Pneumonia Laterality: left Lung location: lower lobe of lung Pneumonia type: due to unspecified organism Qualified Code(s): J18.1 - Lobar pneumonia, unspecified organism
[2018-11-18] MEDS: CHECK SCOPOLAMINE PATCH PLACEMENT SCH ×3 (00:10→15:57)
[2018-11-18] MEDS: PIPERACILLIN/TAZOBACTAM 3.375 GM in DEXTROSE 5% 100 ML IV SCH ×3 (00:21→15:58)
[2018-11-18] MEDS: ALBUT/IPRATROP 3MG/0.5MG NEB 3 ML VIAL NEB SCH ×6 (03:29→23:24)
[2018-11-18] MEDS: TUBE FEEDING WATER FLUSH PO SCH ×4 (06:08→20:15)
[2018-11-18] MEDS: PATIENT'S OWN ENTERAL FEEDING PEG SCH ×4 (06:09→20:15)
--- NOTE | 2018-11-18 06:43 | Critical Care Progress Note ---
Date of Service November 18, 2018 Assessment & Plan (1) Pneumonia: Reason Critically Ill: High risk patient with tracheostomy with pneumonia. Cardiovascular: Patient tachycardic and blood pressures slightly low/normal Close to patient's baseline from previous admissions Will monitor and give fluid as needed Respiratory: Pneumonia seen on CXR Started on zosyn in ED, On ventilator at night Underwent bronchoscopy again yesterday with large amount of mucus suctioned and mucomyst injected into bronchi Left lower lobe appears to be consistently mucus plugged. Will likely try bronch again today to continue to help soham clear her mucus Patient does appear to be moving mucus okay Started scopolamine patch, monitoring for urinary retention. ID: Sputum culture growing pseudomonas sensitive to zosyn but organism is starting to acquire multidrug resistance Sent bronchial samples for culture as well also growing pseudomonas On zosyn for this pneumonia and chronic tobramycin for chronic pseudomonal infection Discussed pneumonia vaccination status with mother, she has been adequately vaccinated. She can either get a booster later this year or anytime in the next five for her PPSV vaccination. Neuro: Patient at baseline neuro status, unable to converse not oriented to person place or time Patient with history of seizure disorder as well, will continue home depakote GI: Will continue home PEG tube feeds Heme: No hematologic abnormality at this time other than elevated white count secondary to infection Renal: Kidney function normal at baseline Blood draws to every other day DVT PPx: Not ordered F/E/N: HOme tube feeds Dipso: ICU Code Status: Conditional, see details on chart (2) S/P admission to ICU (intensive care unit): Supervising Physician Co-Signing Physician Notes Dr. Jaramillo was resident physician during care of patient. I separately evaluated patient for canales portions of the history and the exam. I was present during the critical portion of medical decision making, and I discussed the case with the resident. I generally agree with the findings and plan. Patient's upper airways seem more excoriated, we have discontinued her Scopolamine in case she is to drive from her secretions. Her distal airways do appear to be improving however. Today she had a desaturation episode with thick mucus acting like a ball valve around her trachea. She did desaturate into the 70s and appeared to suffer a seizure of tonic-clonic activity that lasted for approximately 30 seconds or less this improved with 1 mg of Ativan and improvement in her oxygenation. We have attempted to ventilate the patient to provide some positive airway pressure to hopefully distend these airways open somewhat with understanding that may preclude her from coughing her secretions. She does not like being on the ventilator and we will provide some sedation to increase her compliance. I am hopeful tomorrow she will be somewhat improved and able to better manage her secretions I believe the pneumonia is slowly improving however the secretions are thick enough that she is not able to clear them effectively herself. Subjective Soham lying in bed this morning in no apparent distress, some coughing as I woke her up for my physical examination. Review of Systems Review of Systems: Unobtainable due to cognitive status Physical Exam Physical Exam: Constitutional: Very thin young woman appearing younger than stated age lying in bed, both wrist in flexion, torso tilted to her left side, appears in no acute distress Eyes: PERRL, conjunctivae normal, anicteric sclerae ENMT: external ear and nose normal, oropharynx normal Respiratory: Breath sounds coarse, but good air entry globally. chest expansion symmetric. Large amount of secretions from mouth that seem to be causing upper airway rhonci Cardiovascular: Rate/Rhythm: regular rhythm and + tachycardic; + abnormal rate Heart Sounds: normal S1 and normal S2; no murmur and no cardiac rub Gastrointestinal (Abdomen): normal bowel sounds, soft, nontender, no hepatosplenomegaly Results & Data Vital Signs (Past 12 Hours) Vital Signs Temp Pulse Pulse Pulse Pulse Resp BP 11/18/18 06:00 110 H 110 H 110 H 31 H 96/57 L 11/18/18 05:00 106 H 106 H 106 H 20 95/64 L 11/18/18 04:00 37.0 C 100 H 100 H 100 H 28 H 98/66 L 11/18/18 03:29 82 22 11/18/18 03:00 37 C 88 88 88 21 88/55 L 11/18/18 01:00 37.0 C 82 82 82 28 H 92/56 L 11/18/18 00:00 37.0 C 88 88 88 25 H 91/51 L 11/17/18 23:09 89 22 11/17/18 23:00 37.1 C 87 87 87 29 H 96/56 L 11/17/18 22:24 112 H 25 H 11/17/18 21:00 38.2 C H 107 H 107 H 107 H 41 H 96/55 L 11/17/18 20:00 37.7 C H 108 H 108 H 108 H 41 H 94/54 L 11/17/18 19:15 103 H 20 Pulse Ox 11/18/18 06:00 95 11/18/18 05:00 93 11/18/18 04:00 11/18/18 03:29 94 11/18/18 03:00 96 11/18/18 01:00 96 11/18/18 00:00 93 11/17/18 23:09 94 11/17/18 23:00 95 11/17/18 22:24 94 11/17/18 21:00 91 11/17/18 20:00 93 11/17/18 19:15 94 PG Care Time/CCT Total # of Minutes Spent Total Time Spent with Patient: Total time spent is greater than 50% in coordination of care (as documented) at patient's floor/unit and/or counseling patient: Critical Care Time: Yes Resident Activity Tracking Resident Involvement: Resident Care Provided Care Provided: Adult Hospital Medicine (1) Pneumonia Laterality: left Lung location: lower lobe of lung Pneumonia type: due to unspecified organism Qualified Code(s): J18.1 - Lobar pneumonia, unspecified organism
--- NOTE | 2018-11-18 07:11 | XRay Report ---
XR chest 1V portable HISTORY: Increased oxygen demand COMPARISON: Chest 11/17/2018. FINDINGS: No pneumothorax. Left lower lobe airspace opacity and a small left pleural effusion are aga in noted. The heart is normal in size. Rotated study. Small right basilar densities also persist. No evidence for pulmonary edema. A tracheostomy tube is in good position. IMPRESSION: No change in the left greater than right airspace opacities with a small left pleural effusion. Electronically signed by: Edmund Dorman M.D. 11/18/2018 7:10 AM
[2018-11-18] MEDS: ACETYLCYSTEINE 10% INHAL SOLN **DISPENSED FROM RESP. INH SCH ×2 (07:17→19:52)
[2018-11-18] MEDS: BUDESONIDE 0.5 MG/2 ML VIAL (PULMICORT) INH SCH ×2 (07:17→19:52)
[2018-11-18] MEDS: VALPROIC ACID SOLN 500 MG/10 ML UDC PO SCH ×3 (07:57→20:49)
[2018-11-18] MEDS: BACLOFEN 20 MG TAB PO SCH ×3 (07:59→20:49)
[2018-11-18] MEDS: FLUOXETINE HCL 20 MG/5 ML UDP NG SCH (08:00)
[2018-11-18] MEDS: NITROFURANTOIN 25 MG/5 ML PEG SCH (08:03)
[2018-11-18] MEDS: CETIRIZINE 1 MG/ML PEG SCH (08:05)
[2018-11-18] MEDS ORDERED: fentaNYL citrate 100 MCG/2 ML VIAL ONE ×2 (09:40→16:02)
[2018-11-18] MEDS ORDERED: fentaNYL citrate 100 MCG/2 ML VIAL IV STA ×3 (09:46→16:54)
[2018-11-18] MEDS ORDERED: LORazepam 2 MG/4 ML VIAL ONE (10:03)
[2018-11-18] MEDS: ACETAMINOPHEN 65 ML IV PRN (15:41)
[2018-11-18] MEDS ORDERED: MIDAZOLAM HCL 1 MG/ML 2ML VIAL ONE ×2 (15:51→16:19)
[2018-11-18] MEDS ORDERED: MIDAZOLAM HCL 5 MG/ML 1 ML VIAL IV STA ×3 (15:55→21:06)
--- NOTE | 2018-11-18 16:30 | Procedure Note ---
Procedure Note Date of Service November 18, 2018 Procedure date: Noted above Procedure: fiberoptic bronchoscopy Pre-procedure indication: Mucoid impaction of the bronchi, hypoxia Post-procedure Diagnosis: same as above Prior to Procedure: Informed Consent: The risks, benefits, indications, potential complications, and alternatives were explained to the patient's mother and informed consent obtained. Attending Staff: Lavon Tariq DO Resident/APC: Not applicable Skin Prep: Not applicable Anesthesia: 2 mg Versed, 100 mcg fentanyl The identity of the patient was confirmed and a bedside time out was performed. Description of Procedure: Fiberoptic bronchoscopy was performed via tracheostomy tube. Bronchioalveolar lavage left lower lobe and right lower lobes was performed. Findings included: Excoriation and erythema of the proximal airways including the trachea which is different from yesterday. The left lower lobe had improvement in total secretions that required suctioning as well as the right lower lobe. Patient appears to be mobilizing her secretions more however I anticipate that she is intermittently obstructing in a ball-valve phenomenon which is leading to some desaturation. Patient has been coughing more frequently which I believe is causing some of the excoriation and irritation to the upper airways. Complications: None Specimens: Bronchial washing was sent for HSV serology PCR as well as repeat culture to rule out change in virulence/sensitivity pattern of Pseudomonas Estimated blood loss: Zero Coding CPT Codes Pulmonary/Thoracic - Pulmonary and Thoracic: Bronchoscopy, reclear airway ([id number])
--- NOTE | 2018-11-18 20:37 | Hospitalist Progress Note ---
Date of Service November 18, 2018 Assessment & Plan (1) Acute on chronic respiratory failure with hypoxia and hypercapnia: acute resp failure 2nd to left-sided pseudomonas pneumonia. remains on zosyn/inhaled tobramycin. s/p bronch x 3 for removal of mucous plugs. acute component ongoing. defer vent management to critical care staff. (2) Sepsis: 2nd to pneumonia - ongoing with continued fevers. ID, critical care, pulmonary managing antibiotics. cont broad-spectrum IV abx and inhaled tobramycin. flu ag testing was negative but high false negative rate. ordered flu PCR but it was canceled due to lack of PCR kit? follow cultures. (3) Pneumonia: 2nd to pseudomonas. see above (4) History of tracheostomy: chronic trach with night-time vent use at home. defer vent management to pulmonary. 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 at baseline is nonverbal, does not follow commands, bed-bound w/ contractures. (6) Seizure disorder: had 30-second seizure today certainly illness, fever, low K, etc can all precipitate/lower the seizure thr eshold will check depakote level in am (7) Thrombocytopenia: likely sepsis-associated counts have been low but acceptable repeat cbc AM (8) Hypokalemia: repeat BMP am (9) Status post insertion of percutaneous endoscopic gastrostomy (PEG) tube: tolerating tube feeds per home regimen (10) DVT prophylaxis: SCDs at minimum consider SC heparin but would use caution in light of low platelets mother updated at bedside today Subjective events of today noted. had bronchoscopy today with thick secretions obtained from her left-sided bronchial tree. also had 30-sec long seizure which abated following 1mg of ativan. during my rounds the pt's mother was at bedside. questions answered. Review of Systems Review of Systems: Unobtainable due to mental health condition and Unobtainable due to cognitive status Physical Exam Constitutional: + thin, + language barrier (nonverbal ) and + frail appearing; + not well developed, + not well nourished and no acute distress ENMT: Mouth: + oropharynx abnormality (cleft palate); oral mucous membranes not dry Respiratory: + tachypneic; no respiratory distress and does not use accessory muscles Auscultation: + diminished lung sounds (left) and + crackles (left ) mildly course breath sounds on right Cardiovascular: Rate/Rhythm: regular rhythm and + tachycardic Heart Sounds: normal S1 and normal S2; no murmur Vessels: posterior tibial pulses present and dorsalis pedis pulses present; no JVD Extremities: no edema Gastrointestinal (Abdomen): normal bowel sounds, soft, nontender, no hepatosplenomegaly PEG clean/intact Skin: no rashes, warm and dry Neurologic: contractures Results & Data Vital Signs (Past 12 Hours) Vital Signs Temp Pulse Pulse Resp BP BP Pulse Ox 11/18/18 19:58 113 H 24 96 11/18/18 19:15 105 H 11/18/18 18:15 98 H 17 100 11/18/18 18:00 37.6 C H 99 H 88/40 L 100 11/18/18 17:57 37.6 C H 11/18/18 17:30 102 H 84/42 L 99 11/18/18 17:00 105 H 84/42 L 99 11/18/18 16:30 113 H 84/47 L 98 11/18/18 16:25 113 H 95/50 L 98 11/18/18 16:20 130 H 113/58 L 95 11/18/18 16:17 111 H 89/47 L 100 11/18/18 16:15 116 H 88/49 L 100 11/18/18 16:10 112 H 89/47 L 100 11/18/18 16:00 38.5 C H 111 H 90/48 L 99 11/18/18 15:51 121 H 21 96 11/18/18 15:30 21 11/18/18 15:10 38.5 C H 11/18/18 15:00 114 H 100/51 L 98 11/18/18 14:00 37.6 C H 109 H 94/54 L 100 11/18/18 13:00 104 H 91/56 L 100 11/18/18 12:27 109 H 15 99 11/18/18 12:00 37.5 C 113 H 18 90/56 L 99 11/18/18 11:00 108 H 46 H 83/40 L 87 L 11/18/18 10:55 106 H 42 H 87/40 L 90 11/18/18 10:54 108 H 32 H 90 11/18/18 10:50 109 H 44 H 85/40 L 87 L 11/18/18 10:45 108 H 51 H 87/40 L 89 L 11/18/18 10:40 110 H 47 H 87/41 L 89 L 11/18/18 10:37 116 H 40 H 90 11/18/18 10:35 112 H 47 H 90/39 L 89 L 11/18/18 10:30 114 H 48 H 91/42 L 89 L 11/18/18 10:00 37.3 C 134 H 36 H 105/64 88 L 11/18/18 09:00 125 H 76 H 97/56 L Laboratory Results Laboratory Results - last 24 hr 11/18/18 16:38 Herpes Virus Source Pending HSV I DNA PCR Pending HSV II DNA PCR Pending PG Care Time/CCT Total # of Minutes Spent Total Time Spent with Patient: Total time spent is greater than 50% in coordination of care (as documented) at patient's floor/unit and/or counseling patient: (1) Sepsis Sepsis acute organ dysfunction status: unspecified Sepsis type: sepsis due to unspecified organism Qualified Code(s): A41.9 - Sepsis, unspecified organism (2) Pneumonia Laterality: left Lung location: lower lobe of lung Pneumonia type: due to unspecified organism Qualified Code(s): J18.1 - Lobar pneumonia, unspecified organism
[2018-11-18] MEDS: ZONISAMIDE 100 MG PO SCH (20:49)
[2018-11-18] MEDS: TRAZODONE HCL 50 MG TAB PEG SCH (20:49)
[2018-11-19] MEDS: PIPERACILLIN/TAZOBACTAM 3.375 GM in DEXTROSE 5% 100 ML IV SCH ×3 (01:14→15:44)
[2018-11-19] MEDS: CHECK SCOPOLAMINE PATCH PLACEMENT SCH ×2 (01:15→07:41)
[2018-11-19] MEDS: ALBUT/IPRATROP 3MG/0.5MG NEB 3 ML VIAL NEB SCH ×6 (03:04→23:15)
[2018-11-19 05:16] LABS: Alanine Aminotransferase 11 U/L (12-78); Albumin Level 2.3 gm/dl (3.4-5.0); Aspartate Aminotransferase 17 U/L (15-37); BUN Creatinine Ratio 23.7 (10-20); Blood Urea Nitrogen 13 mg/dl (7-18); Calcium 8.8 mg/dl (8.5-10.1); Carbon Dioxide 26 mmol/L (21-32); Chloride 106 mmol/L (98-107); Creatinine Clr Calc Pharmacy 114.1 ml/min; Est GFR (African American) > 150.0; Est GFR (Non-African American) 134.8; Glucose 121 mg/dl (70-99); Potassium 3.4 mmol/L (3.5-5.1); Sodium 139 mmol/L (136-145)
[2018-11-19 05:19] LABS: Albumin Globulin Ratio 0.5 (0.9-2); Alkaline Phosphatase 64 U/L (45-117); Bilirubin,Total 0.3 mg/dl (0.2-1); Globulin 4.8 gm/dl (2.5-4.0); Total Protein 7.1 gm/dl (6.4-8.2)
[2018-11-19] MEDS ORDERED: POTASSIUM CHLORIDE 20 MEQ/15 ML UDC PO STA (05:25)
--- NOTE | 2018-11-19 06:11 | Critical Care Progress Note ---
Date of Service November 19, 2018 Assessment & Plan (1) Pneumonia: Reason Critically Ill: High risk patient with tracheostomy with pneumonia requiring bronchoscopy due to difficulty clearing mucus plugging Cardiovascular: Patient tachycardic and blood pressures slightly low/normal Close to patient's baseline from previous admissions Will monitor and give fluid as needed Respiratory: Pneumonia seen on CXR Started on zosyn in ED, On ventilator at night Underwent bronchoscopy again today able to clear some difficult less loose mucus from left lower lobe Left lower lobe appears to be consistently mucus plugged. Will likely try bronch again tomorrow to continue to help soham clear Stopped scopolamine patch after seizure yesterday ID: Sputum culture growing pseudomonas sensitive to zosyn but organism is starting to acquire multidrug resistance Sent bronchial samples for culture as well also growing pseudomonas On zosyn for this pneumonia and chronic tobramycin for chronic pseudomonal infection Discussed pneumonia vaccination status with mother, she has been adequately vaccinated. She can either get a booster later this year or anytime in the next five for her PPSV vaccination. Neuro: Patient at baseline neuro status, unable to converse not oriented to person place or time Patient with history of seizure disorder as well, will continue home depakote GI: Will continue home PEG tube feeds Heme: No hematologic abnormality at this time other than elevated white count secondary to infection Renal: Kidney function normal at baseline Blood draws to every other day DVT PPx: Not ordered F/E/N: HOme tube feeds Dipso: ICU Code Status: Conditional, see details on chart (2) S/P admission to ICU (intensive care unit): Supervising Physician Co-Signing Physician Notes Dr. Jaramillo was resident physician during care of patient. I separately evaluated patient for canales portions of the history and the exam. I was present during the critical portion of medical decision making, and I discussed the case with the resident. I generally agree with the findings and plan. Improved oxygen requirements however still with mucoid impaction and difficulty clearing secretions. Will obtain bronchoscopy for secretion clearance later today. Subjective Soham remains unchanged, resting in bed watching cartoons. Occasionally coughs up large amount of mucus Review of Systems Review of Systems: Unobtainable due to cognitive status Physical Exam Physical Exam: Constitutional: Very thin young woman appearing younger than stated age lying in bed, both wrist in flexion, torso tilted to her left side, appears in no acute distress Eyes: PERRL, conjunctivae normal, anicteric sclerae ENMT: external ear and nose normal, oropharynx normal Respiratory: Breath sounds coarse, but good air entry globally. chest expansion symmetric. Large amount of secretions from mouth that seem to be causing upper airway rhonci Cardiovascular: Rate/Rhythm: regular rhythm and + tachycardic; + abnormal rate Heart Sounds: normal S1 and normal S2; no murmur and no cardiac rub Gastrointestinal (Abdomen): normal bowel sounds, soft, nontender, no hepatosplenomegaly Results & Data Vital Signs (Past 12 Hours) Vital Signs Temp Pulse Pulse Resp BP Pulse Ox 11/19/18 05:20 113 H 18 97 11/19/18 03:04 98 H 16 99 11/18/18 23:24 107 H 21 97 11/18/18 23:00 108 H 109/77 98 11/18/18 22:30 102 H 93/60 L 98 11/18/18 22:00 101 H 90/52 L 97 11/18/18 21:30 115 H 109/73 96 11/18/18 21:24 20 11/18/18 21:02 119 H 115/77 97 11/18/18 21:00 123 H 86/71 L 93 11/18/18 20:30 124 H 100/58 L 96 11/18/18 20:00 37.6 C H 110 H 100/56 L 97 11/18/18 19:58 113 H 24 96 11/18/18 19:30 103 H 102/50 L 97 11/18/18 19:15 105 H 11/18/18 19:00 101 H 98/51 L 98 11/18/18 18:15 98 H 17 100 PG Care Time/CCT Total # of Minutes Spent Total Time Spent with Patient: Total time spent is greater than 50% in coordination of care (as documented) at patient's floor/unit and/or counseling patient: Critical Care Time: Yes I have personally spent 40 minutes of critical care time in the direct management of this patient. This is a life/limb threatening event. This includes time spent evaluating patient, direct bedside care, chart review, placing orders, interpretation of diagnostic studies, discussion with consultants, patient, and/or family members regarding treatment decisions, as well as other required patient management activities. This time is exclusive of all separately billable procedures, and teaching time and separate from and in addition to any other critical care service time. Resident Activity Tracking Resident Involvement: Resident Care Provided Care Provided: Adult Hospital Medicine (1) Pneumonia Laterality: left Lung location: lower lobe of lung Pneumonia type: due to unspecified organism Qualified Code(s): J18.1 - Lobar pneumonia, unspecified organism
[2018-11-19 06:43] LABS: Hematocrit (blood only) 26.2 % (37-47); Hemoglobin 8.7 g/dL (12.0-16.0); Mean Corpuscular Hemoglobin 33.3 pg (25-34); Mean Corpuscular Hgb Conc 33.2 g/dL (32-36); Mean Corpuscular Volume 100.4 fL (80-100); Mean Platelet Volume 9.5 fL (7.4-10.4); Platelet Count 71 K/uL (130-400); RDW Coefficient of Variation 12.6 % (11.5-14.5); RDW Standard Deviation 45.8 fL (36.4-46.3); Red Blood Count 2.61 M/uL (4.2-5.4); White Blood Count 8.44 K/uL (4.8-10.8)
[2018-11-19 06:44] LABS: Basophils # (auto) 0.01 K/uL (0-0.2); Basophils % (auto) 0.1 %; Immature Granulocytes # (auto) 0.01 K/uL (0.00-0.02); Immature Granulocytes % (auto) 0.1 %; Lymphocytes # (auto) 0.94 K/uL (1.2-3.4); Lymphocytes % (auto) 11.1 %; Monocytes # (auto) 1.05 K/uL (0.11-0.59); Monocytes % (auto) 12.4 %; Neutrophils # (auto) 6.43 K/uL (1.4-6.5); Neutrophils % (auto) 76.3 %; Toxic Granulation 1+
[2018-11-19] MEDS: TUBE FEEDING WATER FLUSH PO SCH ×4 (07:10→20:08)
[2018-11-19] MEDS: PATIENT'S OWN ENTERAL FEEDING PEG SCH ×4 (07:10→20:07)
[2018-11-19] MEDS: BUDESONIDE 0.5 MG/2 ML VIAL (PULMICORT) INH SCH ×2 (07:39→20:05)
[2018-11-19] MEDS: TOBRAMYCIN SULFATE 300 MG in SYRINGE 0 ML INH SCH ×2 (07:39→19:53)
[2018-11-19] MEDS: ACETYLCYSTEINE 10% INHAL SOLN **DISPENSED FROM RESP. INH SCH ×2 (07:40→19:52)
[2018-11-19] MEDS: VALPROIC ACID SOLN 500 MG/10 ML UDC PO SCH ×3 (08:32→21:20)
[2018-11-19] MEDS: FLUOXETINE HCL 20 MG/5 ML UDP NG SCH (08:32)
[2018-11-19] MEDS: BACLOFEN 20 MG TAB PO SCH ×3 (08:32→21:21)
[2018-11-19] MEDS: NITROFURANTOIN 25 MG/5 ML PEG SCH (08:33)
[2018-11-19] MEDS: CETIRIZINE 1 MG/ML PEG SCH (08:33)
[2018-11-19] MEDS ORDERED: fentaNYL citrate 100 MCG/2 ML VIAL ONE (11:50)
[2018-11-19] MEDS ORDERED: MIDAZOLAM HCL 1 MG/ML 2ML VIAL ONE (11:50)
[2018-11-19] MEDS ORDERED: MIDAZOLAM HCL 5 MG/ML 1 ML VIAL IV STA (13:47)
[2018-11-19] MEDS ORDERED: fentaNYL citrate 100 MCG/2 ML VIAL IV STA (13:47)
[2018-11-19] MEDS: POLYETHYLENE (MIRALAX) 17 GM PACK PEG PRN (13:51)
[2018-11-19] MEDS ORDERED: ACETAMINOPHEN SUSP 160 MG/5 ML UDC PO PRN (14:34)
--- NOTE | 2018-11-19 18:10 | Procedure Note ---
Procedure Note: Bronchoscopy Procedure Procedure date: November 19, 2018 Procedure: fiberoptic bronchoscopy Pre-procedure indication: Mucoid impaction of bronchi Post-procedure Diagnosis: same as above Prior to Procedure: Informed Consent: The risks, benefits, indications, potential complications, and alternatives were explained to the patient's mother and informed consent obtained. Attending Staff: Lavon Tariq DO Resident/APC: Not applicable Skin Prep: Not applicable Anesthesia: 1 mg Versed 50 mcg fentanyl The identity of the patient was confirmed and a bedside time out was performed. Description of Procedure: Fiberoptic bronchoscopy was performed via endotracheal tube. Bronchioalveolar lavage right lower lobe which had minimal secretions and left lower and upper lobe which had improved secretions. Findings included: Mild improvement of excoriated upper airways, general global improvement of the tenacity of the lower airway secretions Complications: None Specimens: None Estimated blood loss: Zero
[2018-11-19] MEDS: TRAZODONE HCL 50 MG TAB PEG SCH (21:20)
[2018-11-19] MEDS: ZONISAMIDE 100 MG PO SCH (21:21)
--- NOTE | 2018-11-19 21:47 | Hospitalist Progress Note ---
Date of Service November 19, 2018 Assessment & Plan (1) Acute on chronic respiratory failure with hypoxia and hypercapnia: acute resp failure 2nd to left-sided pseudomonas pneumonia. remains on zosyn/inhaled tobramycin. s/p bronch x 4 for removal of mucous plugs. acute component ongoing but certainly improved over last 24 hours. defer vent management to critical care staff. (2) Sepsis: 2nd to pneumonia. ID, critical care, pulmonary managing antibiotics. cont broad-spectrum IV abx and inhaled tobramycin. (3) Pneumonia: 2nd to pseudomonas. day #5 of zosyn. also remains on tobramycin nebs. (4) History of tracheostomy: chronic trach with night-time vent use at home. defer vent management to pulmonary. 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 at baseline is nonverbal, does not follow commands, bed-bound w/ contractures. (6) Seizure disorder: had 30-second seizure yesterday. certainly illness, fever, low K, etc can all precipitate/lower the seizure threshold depakote level today therapeutic. monitor. (7) Thrombocytopenia: likely sepsis-associated counts have been low but acceptable repeat cbc AM for stability. (8) Hypokalemia: replace repeat level AM mag level normal (9) Status post insertion of percutaneous endoscopic gastrostomy (PEG) tube: tolerating tube feeds per home regimen (10) DVT prophylaxis: SCDs at minimum consider SC heparin Subjective no issues overnight s/p bronch again today less secretions per Dr Tariq has been vented since yesterday and has been stable on such Review of Systems Review of Systems: Unobtainable due to cognitive status Physical Exam Constitutional: + thin, + language barrier (nonverbal ) and + frail appearing; + not well developed, + not well nourished and no acute distress ENMT: Mouth: + oropharynx abnormality (cleft palate); oral mucous membranes not dry Neck: trach in place Respiratory: no respiratory distress, does not use accessory muscles and not tachypneic Auscultation: + diminished lung sounds (left); no crackles and no wheezes airation and breath sounds much improved today Cardiovascular: Rate/Rhythm: regular rhythm and + tachycardic Heart Sounds: normal S1 and normal S2; no murmur Vessels: posterior tibial pulses present and dorsalis pedis pulses present; no JVD Extremities: no edema Gastrointestinal (Abdomen): normal bowel sounds, soft, nontender, no hepatosplenomegaly PEG clean/intact Skin: no rashes, warm and dry Results & Data Vital Signs (Past 12 Hours) Vital Signs Temp Pulse Resp BP Pulse Ox 11/19/18 20:22 106 H 22 96 11/19/18 19:00 101 H 105/66 96 11/19/18 18:00 99 H 101/55 L 98 11/19/18 17:46 101 H 18 97 11/19/18 17:15 101 H 98/57 L 98 11/19/18 17:00 103 H 98/53 L 96 11/19/18 16:00 38.1 C H 107 H 96/50 L 96 11/19/18 15:30 115 H 102/52 L 96 11/19/18 15:16 116 H 11/19/18 15:00 118 H 92/44 L 95 11/19/18 14:45 122 H 91/48 L 94 11/19/18 14:30 117 H 94/54 L 92 11/19/18 14:18 112 H 18 94 11/19/18 14:15 115 H 103/53 L 95 11/19/18 14:00 38.1 C H 111 H 102/55 L 93 11/19/18 13:45 109 H 89/46 L 91 11/19/18 13:40 110 H 90/47 L 91 11/19/18 13:35 113 H 99/52 L 98 11/19/18 13:30 113 H 100/56 L 100 11/19/18 13:28 119 H 104/58 L 100 11/19/18 13:00 115 H 98/58 L 99 11/19/18 12:00 37.1 C 124 H 95/56 L 95 11/19/18 11:00 118 H 109/59 L 96 11/19/18 10:58 118 H 18 95 11/19/18 10:00 120 H 108/62 97 PG Care Time/CCT Total # of Minutes Spent Total Time Spent with Patient: Total time spent is greater than 50% in coordination of care (as documented) at patient's floor/unit and/or counseling patient: (1) Sepsis Sepsis acute organ dysfunction status: unspecified Sepsis type: sepsis due to unspecified organism Qualified Code(s): A41.9 - Sepsis, unspecified organism (2) Pneumonia Laterality: left Lung location: lower lobe of lung Pneumonia type: due to unspecified organism Qualified Code(s): J18.1 - Lobar pneumonia, unspecified organism
[2018-11-20] MEDS: PIPERACILLIN/TAZOBACTAM 3.375 GM in DEXTROSE 5% 100 ML IV SCH ×3 (00:07→15:24)
[2018-11-20] MEDS: ALBUT/IPRATROP 3MG/0.5MG NEB 3 ML VIAL NEB SCH ×6 (03:32→22:52)
[2018-11-20 05:30] LABS: Magnesium 2.1 mg/dl (1.8-2.4); Phosphorus 3.8 mg/dl (2.5-4.9)
[2018-11-20 06:16] LABS: BUN Creatinine Ratio 34.9 (10-20); Blood Urea Nitrogen 12 mg/dl (7-18); Calcium 8.7 mg/dl (8.5-10.1); Carbon Dioxide 27 mmol/L (21-32); Chloride 103 mmol/L (98-107); Creatinine Clr Calc Pharmacy 186.6 ml/min; Est GFR (African American) > 150.0; Est GFR (Non-African American) > 150.0; Glucose 102 mg/dl (70-99); Potassium 3.2 mmol/L (3.5-5.1); Sodium 137 mmol/L (136-145)
[2018-11-20 06:47] LABS: Hematocrit (blood only) 27.8 % (37-47); Hemoglobin 9.3 g/dL (12.0-16.0); Mean Corpuscular Hemoglobin 33.6 pg (25-34); Mean Corpuscular Hgb Conc 33.5 g/dL (32-36); Mean Corpuscular Volume 100.4 fL (80-100); RDW Coefficient of Variation 12.7 % (11.5-14.5); Red Blood Count 2.77 M/uL (4.2-5.4); White Blood Count 5.46 K/uL (4.8-10.8)
[2018-11-20 06:58] LABS: Mean Platelet Volume 9.6 fL (7.4-10.4); Platelet Count 86 K/uL (130-400)
[2018-11-20 07:33] LABS: Basophils # (auto) 0.01 K/uL (0-0.2); Basophils % (auto) 0.2 %; Eosinophils # (auto) 0.01 K/uL (0-0.5); Eosinophils % (auto) 0.2 %; Immature Granulocytes # (auto) 0.02 K/uL (0.00-0.02); Immature Granulocytes % (auto) 0.4 %; Lymphocytes # (auto) 0.84 K/uL (1.2-3.4); Lymphocytes % (auto) 15.4 %; Monocytes # (auto) 0.85 K/uL (0.11-0.59); Monocytes % (auto) 15.6 %; Neutrophils # (auto) 3.73 K/uL (1.4-6.5); Neutrophils % (auto) 68.2 %
--- NOTE | 2018-11-20 07:52 | Critical Care Progress Note ---
Date of Service November 20, 2018 Supervising Physician Co-Signing Physician Notes Dr. Jaramillo was resident physician during care of patient. I separately evaluated patient for canales portions of the history and the exam. I was present during the critical portion of medical decision making, and I discussed the case with the resident. I generally agree with the findings and plan. Improved oxygen requirements was able to tolerate 40% FiO2. Rather significant improvement on bronchoscopy today will remove from ventilator during daylight hours today again continue ventilator at night as previously prescribed. I am hoping the patient secretion burden is such that she can clear her own secretions. Subjective Selvin is much the same this morning, on vent, sleeping. No apparent distress Review of Systems Review of Systems: All systems reviewed & are unremarkable except as noted in HPI & below Physical Exam Physical Exam: Reason Critically Ill: High risk patient with tracheostomy with pneumonia requiring bronchoscopy due to difficulty clearing mucus plugging Cardiovascular: Patient tachycardic and blood pressures slightly low/normal Close to patient's baseline from previous admissions Will monitor and give fluid as needed Respiratory: Continuing zosyn, On ventilator at night oxygen requirement has flucutuated throughout admission Left lower lobe appears to be consistently mucus plugged. Will likely try bronch again today to continue to help Selvin clear her lungs ID: Sputum culture growing pseudomonas sensitive to zosyn but organism is starting to acquire multidrug resistance Sent bronchial samples for culture as well also growing pseudomonas On zosyn for this pneumonia and chronic tobramycin for chronic pseudomonal infection Discussed pneumonia vaccination status with mother, she has been adequately vaccinated. She can either get a booster later this year or anytime in the next five for her PPSV vaccination. Neuro: Patient at baseline neuro status, unable to converse not oriented to person place or time Patient with history of seizure disorder as well, will continue home depakote GI: Will continue home PEG tube feeds Heme: No hematologic abnormality at this time other than elevated white count secondary to infection Renal: Kidney function normal at baseline Blood draws to every other day DVT PPx: Not ordered F/E/N: HOme tube feeds Dipso: ICU Code Status: Conditional, see details on chart Results & Data Vital Signs (Past 12 Hours) Vital Signs Temp Pulse Resp BP Pulse Ox 11/20/18 05:34 96 H 19 97 11/20/18 03:32 100 H 19 98 11/20/18 03:00 101 H 96/57 L 97 11/20/18 02:00 96 H 90/47 L 98 11/20/18 01:00 102 H 92/48 L 98 11/20/18 00:26 22 11/20/18 00:00 37 C 120 H 103/55 L 96 11/19/18 23:20 22 11/19/18 23:15 98 H 17 97 11/19/18 23:02 100 H 92/52 L 96 11/19/18 22:00 107 H 102/52 L 96 11/19/18 21:00 118 H 107/62 93 11/19/18 20:22 106 H 22 96 11/19/18 20:00 37.2 C 111 H 105/48 L 95 11/19/18 19:00 101 H 105/66 96 PG Care Time/CCT Total # of Minutes Spent Total Time Spent with Patient: Total time spent is greater than 50% in coordination of care (as documented) at patient's floor/unit and/or counseling patient: Critical Care Time: Yes
[2018-11-20] MEDS: ACETYLCYSTEINE 10% INHAL SOLN **DISPENSED FROM RESP. INH SCH ×2 (08:18→19:29)
[2018-11-20] MEDS: BUDESONIDE 0.5 MG/2 ML VIAL (PULMICORT) INH SCH ×2 (08:18→19:48)
[2018-11-20] MEDS: TUBE FEEDING WATER FLUSH PO SCH ×4 (08:59→19:59)
[2018-11-20] MEDS: PATIENT'S OWN ENTERAL FEEDING PEG SCH ×4 (08:59→19:59)
[2018-11-20] MEDS ORDERED: fentaNYL citrate 100 MCG/2 ML VIAL ONE (09:10)
[2018-11-20] MEDS ORDERED: MIDAZOLAM HCL 1 MG/ML 2ML VIAL ONE (09:10)
[2018-11-20] MEDS: POTASSIUM CHLORIDE 20 MEQ/15 ML UDC PEG SCH ×3 (09:39→21:30)
[2018-11-20] MEDS: VALPROIC ACID SOLN 500 MG/10 ML UDC PO SCH ×3 (09:39→21:30)
[2018-11-20] MEDS: BACLOFEN 20 MG TAB PO SCH ×3 (09:40→21:30)
[2018-11-20] MEDS: CETIRIZINE 1 MG/ML PEG SCH (09:40)
[2018-11-20] MEDS: FLUOXETINE HCL 20 MG/5 ML UDP NG SCH (09:40)
[2018-11-20] MEDS: NITROFURANTOIN 25 MG/5 ML PEG SCH (09:43)
--- NOTE | 2018-11-20 13:06 | Procedure Note ---
Procedure Note: Bronchoscopy Procedure Procedure date: November 20, 2018 Procedure: fiberoptic bronchoscopy Pre-procedure indication: Recurrent mucoid impaction of the left lower lobe Post-procedure Diagnosis: same as above Prior to Procedure: Informed Consent: The risks, benefits, indications, potential complications, and alternatives were explained to the patient's daughter and informed consent obtained. Attending Staff: Lavon Tariq DO Resident/APC: Clint Skin Prep: Not applicable Anesthesia: 1 mg Versed 50 mcg fentanyl The identity of the patient was confirmed and a bedside time out was performed. Description of Procedure: Fiberoptic bronchoscopy was performed via endotracheal tube. Bronchioalveolar lavage of the left lower and right lower lobes was performed. Findings included: Improved upper airway appearance and improved secretion burden in bilateral lower airways Complications: None Specimens: None Estimated blood loss: Zero
[2018-11-20] MEDS: POLYETHYLENE (MIRALAX) 17 GM PACK PEG PRN (16:47)
--- NOTE | 2018-11-20 19:59 | Hospitalist Progress Note ---
Date of Service November 20, 2018 Assessment & Plan (1) Acute on chronic respiratory failure with hypoxia and hypercapnia: acute resp failure 2nd to left-sided pseudomonas pneumonia. remains on zosyn/inhaled tobramycin. s/p bronch x 5 for removal of mucous plugs. acute component improving. daytime vent has been weaned. continue night-time vent. defer vent management to critical care staff. (2) Sepsis: 2nd to pneumonia. ID, critical care, pulmonary managing antibiotics. cont broad-spectrum IV abx and inhaled tobramycin. day #6 of zosyn. (3) Pneumonia: 2nd to pseudomonas. slowly improving. day #6 of zosyn. also remains on tobramycin nebs. (4) History of tracheostomy: chronic trach with night-time vent use at home. defer vent management to pulmonary. 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 at baseline is nonverbal, does not follow commands, bed-bound. (6) Seizure disorder: had 30-second seizure 11/18/18. certainly illness, fever, low K, etc can all precipitate/lower the seizure threshold depakote level therapeutic. no seizures since. cont to monitor. (7) Thrombocytopenia: likely sepsis-associated acceptable platelet count today. repeat CBC in 48 hours. (8) Hypokalemia: replace 20meq KCL TID. repeat level AM (9) Status post insertion of percutaneous endoscopic gastrostomy (PEG) tube: tolerating tube feeds (10) DVT prophylaxis: SCDs in place Subjective s/p bronch again today less secretions remained off vent most of today no new issues Review of Systems Review of Systems: Unobtainable due to cognitive status Physical Exam Constitutional: + thin, + language barrier (nonverbal ) and + frail appearing; no acute distress Respiratory: + respiratory distress, + retractions (subcostal ) and + tachypneic Auscultation: + diminished lung sounds (left) and + crackles (course BS left anterior chest; posterior left base); no wheezes Cardiovascular: Rate/Rhythm: regular rhythm and + tachycardic Heart Sounds: normal S1 and normal S2; no murmur Vessels: posterior tibial pulses present and dorsalis pedis pulses present; no JVD Extremities: no edema Gastrointestinal (Abdomen): normal bowel sounds, soft, nontender, no hepatosplenomegaly PEG clean Skin: no rashes, warm and dry Neurologic: contractures b/l legs Results & Data Vital Signs (Past 12 Hours) Vital Signs Temp Pulse Pulse Resp BP Pulse Ox 11/20/18 19:49 98 H 24 95 11/20/18 19:35 101 H 24 94 11/20/18 18:00 107 H 32 H 92/60 L 95 11/20/18 17:00 109 H 95/60 L 97 11/20/18 16:00 36.9 C 105 H 95/56 L 99 11/20/18 15:32 99 H 32 H 94 11/20/18 15:00 93 H 88/55 L 96 11/20/18 14:00 97 H 88/55 L 95 11/20/18 13:00 98 H 92/50 L 96 11/20/18 12:00 37.1 C 94 H 96/53 L 97 11/20/18 11:57 71 26 H 96 11/20/18 11:00 90 98/53 L 95 11/20/18 10:00 101 H 27 H 98/57 L 92 11/20/18 09:35 120 H 106/68 94 11/20/18 09:30 109 H 100/63 97 11/20/18 09:25 123 H 128/76 100 11/20/18 09:20 108 H 101/57 L 100 11/20/18 09:15 102 H 92/55 L 100 11/20/18 09:13 105 H 88/50 L 100 11/20/18 09:00 108 H 92/59 L 94 11/20/18 08:15 92 H 15 98 11/20/18 08:00 37.2 C 95 H 93/53 L 97 Laboratory Results Laboratory Results - last 24 hr 11/20/18 11/20/18 11/20/18 04:33 04:33 04:33 WBC 5.46 RBC 2.77 L Hgb 9.3 L Hct 27.8 L MCV 100.4 H MCH 33.6 MCHC 33.5 RDW Std Deviation 47.0 H RDW Coeff of [place] 12.7 Plt Count 86 L MPV 9.6 Immature Gran % (Auto) 0.4 Neut % (Auto) 68.2 Lymph % (Auto) 15.4 [place] % (Auto) 15.6 Eos % (Auto) 0.2 Baso % (Auto) 0.2 Immature Gran # (Auto) 0.02 Neut # (Auto) 3.73 Lymph # (Auto) 0.84 L [place] # (Auto) 0.85 H Eos # (Auto) 0.01 Baso # (Auto) 0.01 Sodium 137 Potassium 3.2 L Chloride 103 Carbon Dioxide 27 Anion Gap 7.0 BUN 12 Creatinine 0.33 L Est Cr Clr Drug Dosing 186.6 Est GFR ( Amer) > 150.0 Est GFR (Non-Af Amer) > 150.0 BUN/Creatinine Ratio 34.9 H Glucose 102 H POC Glucose Calcium 8.7 Phosphorus 3.8 Magnesium 2.1 11/20/18 07:45 WBC RBC Hgb Hct MCV MCH MCHC RDW Std Deviation RDW Coeff of [place] Plt Count MPV Immature Gran % (Auto) Neut % (Auto) Lymph % (Auto) [place] % (Auto) Eos % (Auto) Baso % (Auto) Immature Gran # (Auto) Neut # (Auto) Lymph # (Auto) [place] # (Auto) Eos # (Auto) Baso # (Auto) Sodium Potassium Chloride Carbon Dioxide Anion Gap BUN Creatinine Est Cr Clr Drug Dosing Est GFR ( Amer) Est GFR (Non-Af Amer) BUN/Creatinine Ratio Glucose POC Glucose 86 Calcium Phosphorus Magnesium PG Care Time/CCT Total # of Minutes Spent Total Time Spent with Patient: Total time spent is greater than 50% in coordination of care (as documented) at patient's floor/unit and/or counseling patient: (1) Sepsis Sepsis acute organ dysfunction status: unspecified Sepsis type: sepsis due to unspecified organism Qualified Code(s): A41.9 - Sepsis, unspecified organism (2) Pneumonia Laterality: left Lung location: lower lobe of lung Pneumonia type: due to unspecified organism Qualified Code(s): J18.1 - Lobar pneumonia, unspecified organism
[2018-11-20] MEDS: ZONISAMIDE 100 MG PO SCH (21:30)
[2018-11-20] MEDS: TRAZODONE HCL 50 MG TAB PEG SCH (21:30)
[2018-11-21] MEDS: PIPERACILLIN/TAZOBACTAM 3.375 GM in DEXTROSE 5% 100 ML IV SCH ×3 (00:48→15:10)
[2018-11-21] MEDS: ALBUT/IPRATROP 3MG/0.5MG NEB 3 ML VIAL NEB SCH ×6 (03:24→22:46)
--- NOTE | 2018-11-21 03:34 | Critical Care Progress Note ---
Date of Service November 21, 2018 Assessment & Plan (1) Mucoid impaction of bronchi: Reason Critically Ill: High risk patient with tracheostomy with pneumonia requiring bronchoscopy due to difficulty clearing mucus plugging and ventilator overnight Cardiovascular: Patient tachycardic and blood pressures slightly low/normal Close to patient's baseline from previous admissions Will monitor and give fluid as needed Respiratory: Continuing zosyn for her pneumonia On ventilator at night oxygen requirement has fluctuated throughout admission Left lower lobe appears to be consistently mucus plugged. Will likely try bronch again today to continue to help Selvin clear her lungs Chest XR this morning ID: Sputum culture and bronchial lavage growing pseudomonas, sensitive to zosyn but appears to be growing MDR strain On zosyn for this pneumonia and chronic tobramycin for chronic pseudomonal infection Discussed pneumonia vaccination status with mother, she has been adequately vaccinated. She can either get a booster later this year or anytime in the next five for her PPSV vaccination. Neuro: Patient at baseline neuro status, unable to converse Patient with history of seizure disorder as well, will continue home depakote GI: Will continue home PEG tube feeds Heme: No hematologic abnormality at this time other than elevated white count secondary to infection Renal: Kidney function normal at baseline Blood draws to every other day DVT PPx: Not ordered F/E/N: HOme tube feeds Dipso: ICU Code Status: Conditional, see details on chart (2) Hypokalemia: (3) Acute on chronic respiratory failure with hypoxia and hypercapnia: (4) S/P admission to ICU (intensive care unit): (5) Sepsis: (6) Pneumonia: (7) Tachycardia: (8) Fever: (9) History of cerebral palsy: (10) History of tracheostomy: (11) Status post insertion of percutaneous endoscopic gastrostomy (PEG) tube: (12) Seizure disorder: (13) Acute respiratory failure with hypoxia and hypercapnia: (14) Admitted to intensive care unit: (15) Acute respiratory failure with hypoxemia: Supervising Physician Co-Signing Physician Notes Dr. Jaramillo was resident physician during care of patient. I separately eleazar luated patient for canales portions of the history and the exam. I was present during the critical portion of medical decision making, and I discussed the case with the resident. I generally agree with the findings and plan. Tolerated being off the ventilator during daylight hours following bronchoscopy yesterday. Will hold bronchoscopy today obtain chest x-ray. At this point we are planning 14 total days of Zosyn therapy for multidrug-resistant Pseudomonas in the setting of pre-existing structural lung disease. Repeat BAL does not demonstrate new resistance on sensitivities. Clearly she is still battling active infection with mucopurulent secretions. However she has slowly continued to show improvement. Her oxygen requirement has been slowly decreasing. Patient remains critically ill due to multidrug-resistant Pseudomonas. Subjective Selvin resting comfortably, on vent. No major changes overnight Review of Systems Review of Systems: All systems reviewed & are unremarkable except as noted in HPI & below Physical Exam Physical Exam: Constitutional: Very thin young woman appearing younger than stated age lying in bed, both wrist in flexion, torso tilted to her left side, appears in no acute distress Eyes: PERRL, conjunctivae normal, anicteric sclerae ENMT: external ear and nose normal, oropharynx normal Respiratory: Breath sounds coarse, but good air entry globally. chest expansion symmetric. Large amount of secretions from mouth that seem to be causing upper airway rhonci Cardiovascular: Rate/Rhythm: regular rhythm and + tachycardic; + abnormal ra te Heart Sounds: normal S1 and normal S2; no murmur and no cardiac rub Gastrointestinal (Abdomen): normal bowel sounds, soft, nontender, no hepatosplenomegaly Results & Data Vital Signs (Past 12 Hours) Vital Signs Temp Pulse Pulse Resp BP Pulse Ox 11/21/18 03:24 113 H 26 H 91 11/21/18 02:00 112 H 22 116/71 95 11/21/18 01:37 110 H 23 93 11/21/18 01:00 103 H 18 104/65 94 11/21/18 00:00 37.2 C 103 H 16 97/54 L 94 11/20/18 23:00 109 H 22 81/53 L 92 11/20/18 22:54 102 H 26 H 93 11/20/18 22:38 108 H 29 H 108/60 92 11/20/18 22:20 117 H 29 H 92 11/20/18 21:00 109 H 19 94/58 L 96 11/20/18 20:15 37.0 C 11/20/18 20:00 102 H 44 H 98/62 L 93 11/20/18 19:49 98 H 24 95 11/20/18 19:35 101 H 24 94 11/20/18 19:00 102 H 41 H 94/61 L 92 11/20/18 18:00 107 H 32 H 92/60 L 95 11/20/18 17:00 109 H 95/60 L 97 11/20/18 16:00 36.9 C 105 H 95/56 L 99 11/20/18 15:32 99 H 32 H 94 PG Care Time/CCT Total # of Minutes Spent Total Time Spent with Patient: Total time spent is greater than 50% in coordination of care (as documented) at patient's floor/unit and/or counseling patient: Critical Care Time: Yes Resident Activity Tracking Resident Involvement: Resident Care Provided Care Provided: Adult Hospital Medicine (1) Fever Fever type: unspecified Qualified Code(s): R50.9 - Fever, unspecified (2) Sepsis Sepsis acute organ dysfunction status: unspecified Sepsis type: sepsis due to unspecified organism Qualified Code(s): A41.9 - Sepsis, unspecified organism (3) Pneumonia Laterality: left Lung location: lower lobe of lung Pneumonia type: due to unspecified organism Qualified Code(s): J18.1 - Lobar pneumonia, unspecified organism
[2018-11-21 04:54] LABS: Eosinophils # (auto) 0.02 K/uL (0-0.5); Eosinophils % (auto) 0.2 %; Hemoglobin 9.8 g/dL (12.0-16.0); Immature Granulocytes # (auto) 0.02 K/uL (0.00-0.02); Immature Granulocytes % (auto) 0.2 %; Lymphocytes # (auto) 0.64 K/uL (1.2-3.4); Lymphocytes % (auto) 7.7 %; Mean Corpuscular Hemoglobin 33.2 pg (25-34); Mean Corpuscular Hgb Conc 32.7 g/dL (32-36); Mean Corpuscular Volume 101.7 fL (80-100); Mean Platelet Volume 9.1 fL (7.4-10.4); Monocytes # (auto) 0.98 K/uL (0.11-0.59); Monocytes % (auto) 11.8 %; Neutrophils # (auto) 6.63 K/uL (1.4-6.5); Neutrophils % (auto) 80.1 %; Platelet Count 109 K/uL (130-400); RDW Coefficient of Variation 12.6 % (11.5-14.5); RDW Standard Deviation 46.6 fL (36.4-46.3); Red Blood Count 2.95 M/uL (4.2-5.4); White Blood Count 8.29 K/uL (4.8-10.8)
[2018-11-21 05:19] LABS: Alanine Aminotransferase 19 U/L (12-78); Albumin Globulin Ratio 0.5 (0.9-2); Albumin Level 2.3 gm/dl (3.4-5.0); Alkaline Phosphatase 65 U/L (45-117); Aspartate Aminotransferase 22 U/L (15-37); BUN Creatinine Ratio 27.3 (10-20); Bilirubin,Total 0.4 mg/dl (0.2-1); Blood Urea Nitrogen 11 mg/dl (7-18); Calcium 8.9 mg/dl (8.5-10.1); Carbon Dioxide 26 mmol/L (21-32); Chloride 105 mmol/L (98-107); Creatinine Clr Calc Pharmacy 146.6 ml/min; Est GFR (African American) > 150.0; Est GFR (Non-African American) 145.5; Globulin 4.9 gm/dl (2.5-4.0); Glucose 114 mg/dl (70-99); Potassium 3.8 mmol/L (3.5-5.1); Sodium 138 mmol/L (136-145); Total Protein 7.2 gm/dl (6.4-8.2)
[2018-11-21] MEDS: TUBE FEEDING WATER FLUSH PO SCH ×4 (06:31→19:58)
[2018-11-21] MEDS: PATIENT'S OWN ENTERAL FEEDING PEG SCH ×4 (06:31→19:58)
[2018-11-21] MEDS: ACETYLCYSTEINE 10% INHAL SOLN **DISPENSED FROM RESP. INH SCH ×2 (07:41→19:18)
[2018-11-21] MEDS: BUDESONIDE 0.5 MG/2 ML VIAL (PULMICORT) INH SCH ×2 (07:41→19:39)
--- NOTE | 2018-11-21 08:13 | XRay Report ---
SINGLE VIEW CHEST CLINICAL HISTORY: Follow-up pneumonia. FINDINGS: An AP, portable, upright chest radiograph is compared to study dated 11/18/2018. Correlation is made with chest CT dated 07/22/2018. The examination is significantly degraded by portable techniq ue and patient rotation. A tracheostomy is in place. The cardiomediastinal silhouette is unremarkable . Airspace consolidation is seen at the left lung base and there is a layering left pleural effusion. Airspace opacities are also seen at the right lung base and there is likely a small right pleural ef fusion. No pneumothorax is seen. The bony thorax is grossly intact. IMPRESSION: Left greater than right basilar airspace consolidation with small pleural effusions. This has not significantly changed from 11/18/2018. Electronically signed by: Wily Nowak M.D. 11/21/2018 8:12 AM
[2018-11-21] MEDS: NITROFURANTOIN 25 MG/5 ML PEG SCH (08:29)
[2018-11-21] MEDS: CETIRIZINE 1 MG/ML PEG SCH (08:30)
[2018-11-21] MEDS: POTASSIUM CHLORIDE 20 MEQ/15 ML UDC PEG SCH (08:32)
[2018-11-21] MEDS: VALPROIC ACID SOLN 500 MG/10 ML UDC PO SCH ×3 (08:32→21:46)
[2018-11-21] MEDS: BACLOFEN 20 MG TAB PO SCH ×3 (08:32→21:46)
[2018-11-21] MEDS: FLUOXETINE HCL 20 MG/5 ML UDP NG SCH (08:33)
--- NOTE | 2018-11-21 20:30 | Hospitalist Progress Note ---
Date of Service November 21, 2018 Assessment & Plan (1) Acute on chronic respiratory failure with hypoxia and hypercapnia: acute resp failure 2nd to left-sided pseudomonas pneumonia. remains on zosyn/inhaled tobramycin. s/p bronch x 5 this admission for removal of mucous plugs. no bronch today. acute component improving. daytime vent has been weaned off; now on trach collar during the day. continue night-time vent. defer vent management to critical care staff. (2) Sepsis: 2nd to pneumonia. resolved. afebrile now x 48+ hours. ID, critical care, pulmonary managing antibiotics. cont broad-spectrum IV abx and inhaled tobramycin. day #7 of zosyn. (3) Pneumonia: left-sided. 2nd to pseudomonas. slowly improving. day #7 of zosyn. also remains on tobramycin nebs. (4) History of tracheostomy: chronic trach with night-time vent use at home. defer vent management to pulmonary. 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 at baseline is nonverbal, does not follow commands, bed-bound. (6) Seizure disorder: had 30-second seizure 11/18/18. certainly illness, fever, low K, etc may have precipitated/lowered the seizure threshold depakote level therapeutic this admission. no seizures since. cont to monitor. (7) Thrombocytopenia: likely sepsis-associated acceptable platelet count today (109) and finally on the rise. repeat CBC in 48 hours or so for stability. (8) Hypokalemia: replaced/resolved change KCL supplement to once daily (9) Status post insertion of percutaneous endoscopic gastrostomy (PEG) tube: tolerating tube feeds (10) DVT prophylaxis: SCDs in place Subjective no issues overnight. remained on trach collar during the day today. repeat bronch was deferred. Review of Systems Review of Systems: Unobtainable due to cognitive status Physical Exam Constitutional: + thin, + language barrier (nonverbal ) and + frail appearing; no acute distress ENMT: Mouth: + oropharynx abnormality (cleft palate; no thrush present); oral mucous membranes not dry Respiratory: + retractions (subcostal ) and + tachypneic Auscultation: + diminished lung sounds (left) and + crackles (course BS left anterior chest; posterior left base); no wheezes trach in place; clean Cardiovascular: Rate/Rhythm: regular rhythm and + tachycardic Heart Sounds: normal S1 and normal S2; no murmur Vessels: posterior tibial pulses present and dorsalis pedis pulses present; no JVD Extremities: no edema Gastrointestinal (Abdomen): normal bowel sounds, soft, nontender, no hepatosplenomegaly PEG clean/dry Skin: no rashes, warm and dry Neurologic: contractures present of legs/arms Results & Data Vital Signs (Past 12 Hours) Vital Signs Temp Pulse Pulse Pulse Resp BP Pulse Ox 11/21/18 19:40 107 H 28 H 95 11/21/18 19:21 86 28 H 95 11/21/18 18:00 115 H 19 95/54 L 95 11/21/18 17:00 89 32 H 93/55 L 95 11/21/18 16:00 37.0 C 96 H 34 H 85/53 L 96 11/21/18 15:16 94 H 32 H 94 11/21/18 15:00 84 29 H 96/56 L 95 11/21/18 14:00 90 30 H 88/52 L 92 11/21/18 13:00 89 38 H 93/54 L 94 11/21/18 12:00 37.0 C 95 H 38 H 93/52 L 93 11/21/18 11:41 107 H 36 H 94 11/21/18 11:00 96 H 38 H 95/45 L 90 11/21/18 10:00 94 H 30 H 91/38 L 90 11/21/18 09:00 97 H 32 H 96/49 L 92 Laboratory Results Laboratory Results - last 24 hr 11/21/18 11/21/18 04:11 04:11 WBC 8.29 RBC 2.95 L Hgb 9.8 L Hct 30.0 L MCV 101.7 H MCH 33.2 MCHC 32.7 RDW Std Deviation 46.6 H RDW Coeff of [place] 12.6 Plt Count 109 L MPV 9.1 Immature Gran % (Auto) 0.2 Neut % (Auto) 80.1 Lymph % (Auto) 7.7 Beckham % (Auto) 11.8 Eos % (Auto) 0.2 Baso % (Auto) 0.0 Immature Gran # (Auto) 0.02 Neut # (Auto) 6.63 H Lymph # (Auto) 0.64 L Beckham # (Auto) 0.98 H Eos # (Auto) 0.02 Baso # (Auto) 0.00 Sodium 138 Potassium 3.8 D Chloride 105 Carbon Dioxide 26 Anion Gap 7.0 BUN 11 Creatinine 0.42 L Est Cr Clr Drug Dosing 146.6 Est GFR ( Amer) > 150.0 Est GFR (Non-Af Amer) 145.5 BUN/Creatinine Ratio 27.3 H Glucose 114 H Calcium 8.9 Total Bilirubin 0.4 AST 22 ALT 19 Alkaline Phosphatase 65 Total Protein 7.2 Albumin 2.3 L Globulin 4.9 H Albumin/Globulin Ratio 0.5 L PG Care Time/CCT Total # of Minutes Spent Total Time Spent with Patient: Total time spent is greater than 50% in coordination of care (as documented) at patient's floor/unit and/or counseling patient: (1) Sepsis Sepsis acute organ dysfunction status: unspecified Sepsis type: sepsis due to unspecified organism Qualified Code(s): A41.9 - Sepsis, unspecified organism (2) Pneumonia Laterality: left Lung location: lower lobe of lung Pneumonia type: due to unspecified organism Qualified Code(s): J18.1 - Lobar pneumonia, unspecified organism
[2018-11-21] MEDS: ZONISAMIDE 100 MG PO SCH (21:45)
[2018-11-21] MEDS: TRAZODONE HCL 50 MG TAB PEG SCH (21:46)
[2018-11-22] MEDS: PIPERACILLIN/TAZOBACTAM 3.375 GM in DEXTROSE 5% 100 ML IV SCH ×3 (01:15→15:39)
[2018-11-22] MEDS: ALBUT/IPRATROP 3MG/0.5MG NEB 3 ML VIAL NEB SCH ×6 (02:59→23:17)
[2018-11-22] MEDS: ACETYLCYSTEINE 10% INHAL SOLN **DISPENSED FROM RESP. INH SCH ×2 (07:14→20:17)
[2018-11-22] MEDS: BUDESONIDE 0.5 MG/2 ML VIAL (PULMICORT) INH SCH ×2 (07:14→20:21)
[2018-11-22] MEDS: TOBRAMYCIN SULFATE 300 MG in SYRINGE 0 ML INH SCH ×2 (07:14→20:21)
--- NOTE | 2018-11-22 07:17 | Critical Care Progress Note ---
Date of Service November 22, 2018 Assessment & Plan (1) Mucoid impaction of bronchi: Reason Critically Ill: High risk patient with tracheostomy with pneumonia requiring bronchoscopy due to difficulty clearing mucus plugging and ventilator overnight Cardiovascular: Patient tachycardic and blood pressures slightly low/normal Close to patient's baseline from previous admissions Will monitor and give fluid as needed Respiratory: Continuing zosyn for her pneumonia plan is for fourteen day course On ventilator at night oxygen requirement has fluctuated throughout admission but tolerating trach collar during day Left lower lobe appears to be consistently mucus plugged. We will get a chest x-ray today.Patient needs aggressive suctioning and CoughAssist 4 times daily. ID: Sputum culture and bronchial lavage growing pseudomonas, sensitive to zosyn On zosyn for this pneumonia and chronic tobramycin for chronic pseudomonal infection Discussed pneumonia vaccination status with mother, she has been adequately vaccinated. She can either get a booster later this year or anytime in the next five for her PPSV vaccination. Neuro: Patient at baseline neuro status, unable to converse Patient with history of seizure disorder as well, will continue home Medication GI: Will continue home PEG tube feeds Heme: No hematologic abnormality at this time other than elevated white count secondary to infection Renal: Kidney function normal at baseline Blood draws to every other day DVT PPx: Not ordered F/E/N: HOme tube feeds Dipso: ICU Code Status: Conditional, see details on chart (2) Hypokalemia: (3) Acute on chronic respiratory failure with hypoxia and hypercapnia: (4) S/P admission to ICU (intensive care unit): (5) Sepsis: (6) Pneumonia: (7) Tachycardia: (8) Fever: (9) History of cerebral palsy: (10) History of tracheostomy: (11) Status post insertion of percutaneous endoscopic gastrostomy (PEG) tube: (12) Seizure disorder: (13) Acute respiratory failure with hypoxia and hypercapnia: (14) Admitted to intensive care unit: (15) Acute respiratory failure with hypoxemia: Supervising Physician Co-Signing Physician Notes Dr. Jaramillo was the resident-physician during care of patient. I separately evaluated patient for canales portions of the history and the exam. I was present during the critical portion of medical decision making, and I discussed the case with the resident. I generally agree with the findings and plan except for any additions/exceptions noted. Patient was on went for approximately 3 hours overnight. Patient does not seem to be in any distress. Opens eyes to verbal command. Patient is lying on the left side.We will get a chest x-ray today to see out the left lower lobe looks like.Continue with CoughAssist. But with the patient on IPCs. The sensitivity of the sputum Pseudomonas aeruginosa shows intermediate sensitivity to tobramycin and aztreonam. Patient is on chronic tobramycin inhaled for her Pseudomonas infection. Will discuss with infectious disease to see if there is any benefit of continuing with the tobramycin given the patient is starting to get resistant to it. Will do labs every other day. Labs from 11/21/2018 reviewed. I have personally spent 35 minutes of critical care time in the direct management of this patient. This is a life/limb threatening event. This includes time spent evaluating patient, direct bedside care, chart review, placing orders, interpretation of diagnostic studies, discussion with consultants, patient, and/or family members regarding treatment decisions, as well as other required patient management activities. This time is exclusive of all separately billable procedures, and teaching time and separate from and in addition to any other critical care service time. Subjective Selvin Alcala is tolerating trach collar during the day with trach collar and FiO2 of 50. No new issues or complaints, did not require bronchoscopy yesterday Review of Systems Review of Systems: All systems reviewed & are unremarkable except as noted in HPI & below Physical Exam Physical Exam: Constitutional: Very thin young woman appearing younger than stated age lying in bed, both wrist in flexion, torso tilted to her left side, appears in no acute distress Eyes: PERRLA, conjunctivae normal, anicteric sclerae ENMT: external ear and nose normal, oropharynx normal, Size 6 tracheal tube Respiratory: Breath sounds coarse, Decreased air entry on the left side, chest expansion symmetric. Large amount of secretions from upper airway that seem to be causing her loudest rhoncorous breath sounds, Positive crackles bilateral lower lobes, mild expiratory wheeze left side Cardiovascular: Rate/Rhythm: regular rhythm, Tachycardia Heart Sounds: normal S1 and normal S2; no murmur and no cardiac rub Gastrointestinal (Abdomen): normal bowel sounds, soft, nontender, no hepatosplenomegaly. Positive PEG tube Genitourinary: No Cota Results & Data Vital Signs (Past 12 Hours) Vital Signs Temp Pulse Pulse Resp BP Pulse Ox 11/22/18 06:00 83 32 H 94/55 L 93 11/22/18 05:00 105 H 26 H 104/68 94 11/22/18 04:00 37.1 C 90 81/71 L 95 11/22/18 03:00 91 H 92/53 L 94 11/22/18 02:59 88 38 H 94 11/22/18 02:00 91 H 89/59 L 90 11/22/18 01:11 22 11/22/18 01:01 113 H 139/72 95 11/22/18 00:00 100 H 100/55 L 93 11/21/18 23:25 101 H 11/21/18 23:00 104 H 90/48 L 88 L 11/21/18 22:47 90 22 91 11/21/18 22:21 87 26 H 95 11/21/18 22:00 87 45 H 96/58 L 91 11/21/18 21:57 85 11/21/18 21:00 92 H 18 98/60 L 95 11/21/18 20:00 37.0 C 104 H 30 H 107/71 92 11/21/18 19:40 107 H 28 H 95 11/21/18 19:21 86 28 H 95 PG Care Time/CCT Total # of Minutes Spent Total Time Spent with Patient: Total time spent is greater than 50% in coordination of care (as documented) at patient's floor/unit and/or counseling patient: Critical Care Time: Yes Total Critical Care Time: 35 Resident Activity Tracking Resident Involvement: Resident Care Provided Care Provided: Adult Hospital Medicine (1) Fever Fever type: unspecified Qualified Code(s): R50.9 - Fever, unspecified (2) Sepsis Sepsis acute organ dysfunction status: unspecified Sepsis type: sepsis due to unspecified organism Qualified Code(s): A41.9 - Sepsis, unspecified organism (3) Pneumonia Laterality: left Lung location: lower lobe of lung Pneumonia type: due to unspecified organism Qualified Code(s): J18.1 - Lobar pneumonia, unspecified organism
[2018-11-22] MEDS: TUBE FEEDING WATER FLUSH PO SCH ×4 (07:35→18:46)
[2018-11-22] MEDS: PATIENT'S OWN ENTERAL FEEDING PEG SCH ×4 (07:36→18:47)
[2018-11-22] MEDS: NITROFURANTOIN 25 MG/5 ML PEG SCH (07:37)
[2018-11-22] MEDS: VALPROIC ACID SOLN 500 MG/10 ML UDC PO SCH ×3 (07:37→20:29)
[2018-11-22] MEDS: POTASSIUM CHLORIDE 20 MEQ/15 ML UDC PEG SCH (07:38)
[2018-11-22] MEDS: CETIRIZINE 1 MG/ML PEG SCH (07:38)
[2018-11-22] MEDS: BACLOFEN 20 MG TAB PO SCH ×3 (07:43→20:29)
[2018-11-22] MEDS: FLUOXETINE HCL 20 MG/5 ML UDP NG SCH (07:43)
--- NOTE | 2018-11-22 11:41 | XRay Report ---
XR chest 1V portable CLINICAL HISTORY: hypoxemia COMPARISON STUDY: Chest radiograph November 21, 2018. FINDINGS: Tracheostomy tube is in place. There is no pneumothorax. Left basilar opacity with volume l oss is again noted. This is similar to prior exam. There is a small left pleural effusion. A trace ri ght pleural effusion is noted with right basilar opacity. The appearance of the chest is unchanged. IMPRESSION: No change in bibasilar opacities, left greater than right, with suspected small left and trace right pleural effusions. Electronically signed by: Otto Pearce M.D. 11/22/2018 11:39 AM
--- NOTE | 2018-11-22 15:16 | Hospitalist Progress Note ---
Date of Service November 22, 2018 Assessment & Plan (1) Acute on chronic respiratory failure with hypoxia and hypercapnia: acute resp failure 2nd to left-sided pseudomonas pneumonia. remains on zosyn/inhaled tobramycin. s/p bronch x 5 this admission for removal of mucous plugs. no bronch plans for the time being CXR on 11/22 with similar appearance, no change in left lower lobe opacities acute component improving. daytime vent has been weaned off; now on trach collar during the day. continue night-time vent. defer vent management to critical care staff. (2) Sepsis: 2nd to pneumonia. resolved. afebrile now x 48+ hours. ID, critical care, pulmonary managing antibiotics. cont broad-spectrum IV abx and inhaled tobramycin. day #8 of zosyn. question of whether Tobramycin should be continued (3) Pneumonia: left-sided. 2nd to pseudomonas. slowly improving. day #8 of zosyn. also remains on tobramycin nebs but will ask ID if they are in fact needed (4) History of tracheostomy: chronic trach with night-time vent use at home. defer vent management to pulmonary. 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 at baseline is nonverbal, does not follow commands, bed-bound. (6) Seizure disorder: had 30-second seizure 11/18/18. certainly illness, fever, low K, etc may have precipitated/lowered the seizure threshold depakote level therapeutic this admission. no seizures since. cont to monitor. (7) Thrombocytopenia: likely sepsis-associated acceptable platelet count on 11/21 (109) and finally on the rise. repeat CBC in 48 hours or so for stability. (8) Hypokalemia: replaced/resolved change KCL supplement to once daily (9) Status post insertion of percutaneous endoscopic gastrostomy (PEG) tube: tolerating tube feeds (10) DVT prophylaxis: SCDs in place Plan: remain hospitalized until next Thursday for full 14 days of antibiotics Subjective patient stable over night requiring suctioning, sats will drop transiently when she tries to cough up phlegm spoke with her father at the bedside discussed with ICU staff, using cough assist four times a day question whether Tobramycin is working no plans for bronchoscopy at this time Review of Systems Review of Systems: Unobtainable due to cognitive status Physical Exam Constitutional: WD/WN, vitals as above + thin and + frail appearing Eyes: PERRL, conjunctivae normal, anicteric sclerae ENMT: external ear and nose normal, oropharynx normal (dry mucous membranes) Neck: trachea midline, no thyromegaly (tracheostomy) Respiratory: Auscultation: + diminished lung sounds and + rhonchi (bilaterally); no wheezes Cardiovascular: Rate/Rhythm: regular rhythm and + tachycardic Heart Sounds: normal S1 and normal S2; no murmur Extremities: no edema Gastrointestinal (Abdomen): normal bowel sounds, soft, nontender, no hepatosplenomegaly Musculoskeletal: no cyanosis or clubbing, extremities motor strength 5/5 (contractures of all four extremities, bed bound, minimal strength) Skin: no rashes, warm and dry Psychiatric: Orientation: alert and cooperative; + not oriented to person, + not oriented to place and + not oriented to time Lymphatic: no cervical or axillary lymphadenopathy Results & Data Vital Signs (Past 12 Hours) Vital Signs Temp Pulse Pulse Resp BP Pulse Ox 11/22/18 14:00 113 H 19 101/80 91 11/22/18 13:00 84 37 H 81/58 L 94 11/22/18 12:16 86 32 H 81/54 L 93 11/22/18 12:00 37.3 C 83 30 H 80/48 L 94 11/22/18 11:00 97 H 37 H 93/53 L 93 11/22/18 10:00 102 H 26 H 98/62 L 89 L 11/22/18 08:00 36.9 C 97 H 32 H 84/67 L 91 11/22/18 07:39 83 20 96 11/22/18 07:00 76 35 H 99/56 L 96 11/22/18 06:00 83 32 H 94/55 L 93 11/22/18 05:00 105 H 26 H 104/68 94 11/22/18 04:00 37.1 C 90 81/71 L 95 Laboratory Results Laboratory Results - last 24 hr 11/22/18 09:08 POC Glucose 135 H Diagnostic Findings XR chest 1V portable CLINICAL HISTORY: hypoxemia COMPARISON STUDY: Chest radiograph November 21, 2018. FINDINGS: Tracheostomy tube is in place. There is no pneumothorax. Left basilar opacity with volume loss is again noted. This is similar to prior exam. There is a small left pleural effusion. A trace right pleural effusion is noted with ri ght basilar opacity. The appearance of the chest is unchanged. IMPRESSION: No change in bibasilar opacities, left greater than right, with suspected small left and trace right pleural effusions. Medications Administered Current Inpatient Medications Acetaminophen (Children's Acetaminophen) 320 mg PO Q4H PRN PRN Reason: Fever Stop: 12/19/18 14:33 Last Admin: 11/19/18 15:03 Dose: 320 mg Documented by: Acetylcysteine (Mucomyst 10%) 3 ml INH BIDR KENNEDY Stop: 12/15/18 18:59 Last Admin: 11/22/18 07:14 Dose: 3 ml Documented by: Albuterol (Duoneb) 3 ml NEB Q4R KENNEDY Stop: 12/15/18 14:59 Last Admin: 11/22/18 10:44 Dose: 3 ml Documented by: Albuterol (Ventolin 0.083% 2.5mg/3ml) 2.5 mg INH Q4H PRN PRN Reason: Wheezing/ shortness of breath Stop: 12/15/18 14:48 Baclofen (Lioresal) 20 mg PO TID KENNEDY Stop: 12/15/18 15:29 Last Admin: 11/22/18 07:43 Dose: 20 mg Documented by: Budesonide (Pulmicort Respules) 0.5 mg INH BIDR K[facility]Y Stop: 12/15/18 18:59 Last Admin: 11/22/18 07:14 Dose: 0.5 mg Documented by: Clonazepam (Klonopin) 0.5 mg PO DAILY PRN PRN Reason: seizures Stop: 12/15/18 15:29 Fluoxetine HCl (Prozac) 20 mg NG DAILY KENN[facility]Y Stop: 12/16/18 08:59 Last Admin: 11/22/18 07:43 Dose: 20 mg Documented by: Acetaminophen (Ofirmev) 65 mls @ 200 mls/hr IV Q8H PRN PRN Reason: fever Stop: 12/15/18 14:48 Last Infusion: 11/18/18 16:01 Dose: Infused Documented by: Piperacillin Sod/Tazobactam (Sod 3.375 gm/ Dextrose) 115 mls @ 28.75 mls/hr IV Q8H K[facility]; Protocol Stop: 11/29/18 11:59 Last Infusion: 11/22/18 13:01 Dose: Infused Documented by: Tobramycin Sulfate 300 mg/ (Syringe) 7.5 mls @ 30 mls/hr INH MoWeFr@0700,1900 K[facility] Stop: 12/15/18 18:59 Last Admin: 11/22/18 07:14 Dose: 30 mls/hr Documented by: Miscellaneous Information (Consult) 1 ea N/A UD PRN PRN Reason: Consult Stop: 12/15/18 14:48 Nitrofurantoin (Furadantin) 50 mg PEG DAILY KENNEDY Stop: 12/16/18 08:59 Last Admin: 11/22/18 07:37 Dose: 50 mg Documented by: Cetirizine 1mg/Ml: Non-Formulary Patient's Own Med 10 ea PEG DAILY KENNEDY Stop: 12/16/18 08:59 Last Admin: 11/22/18 07:38 Dose: 10 mg Documented by: Nutritional Formula (Patient's Own Enteral Feeding) 350 ml PEG 0700,1130,1500,1900 [facility] Stop: 12/16/18 11:29 Last Admin: 11/22/18 13:00 Dose: 350 ml Documented by: Polyethylene Glycol (Miralax Powder Packet) 8.5 gm PEG DAILY PRN PRN Reason: bowel regiment Last Admin: 11/20/18 16:47 Dose: 8.5 gm Documented by: Potassium Chloride (Elisabeth Ciel Elix) 20 meq PEG DAILY KENNEDY Stop: 12/22/18 08:59 Last Admin: 11/22/18 07:38 Dose: 20 meq Documented by: Sterile Water (Tube Feeding Water Flush) 1 ea PO QID@07,1130,15,19 KENNEDY Stop: 12/15/18 14:59 Last Admin: 11/22/18 13:00 Dose: 1 ea Documented by: Trazodone HCl (Desyrel) 50 mg PEG HS KENNEDY Stop: 12/15/18 20:59 Last Admin: 11/21/18 21:46 Dose: 50 mg Documented by: Valproic Acid (Valproic Acid) 500 mg PO TID KENNEDY Stop: 12/16/18 13:59 Last Admin: 11/22/18 07:37 Dose: 500 mg Documented by: Zonisamide (Zonegran) 1 ea PO HS KENNEDY Stop: 12/15/18 20:59 Last Admin: 11/21/18 21:45 Dose: 1 ea Documented by: Zonisamide (Zonegran) 2 ea PO QAM [facility] Stop: 12/16/18 08:59 Last Admin: 11/22/18 07:40 Dose: 2 ea Documented by: PG Care Time/CCT Total # of Minutes Spent Total Time Spent with Patient: Total time spent is greater than 50% in coordination of care (as documented) at patient's floor/unit and/or counseling patient: (1) Sepsis Sepsis acute organ dysfunction status: unspecified Sepsis type: sepsis due to unspecified organism Qualified Code(s): A41.9 - Sepsis, unspecified organism (2) Pneumonia Laterality: left Lung location: lower lobe of lung Pneumonia type: due to unspecified organism Qualified Code(s): J18.1 - Lobar pneumonia, unspecified organism
[2018-11-22] MEDS: ZONISAMIDE 100 MG PO SCH (20:30)
[2018-11-22] MEDS: TRAZODONE HCL 50 MG TAB PEG SCH (20:30)
[2018-11-22 21:51] LABS: HSV Type 1 DNA Not Detected (Not Detected); HSV Type 2 DNA Not Detected (Not Detected)
[2018-11-23] MEDS: PIPERACILLIN/TAZOBACTAM 3.375 GM in DEXTROSE 5% 100 ML IV SCH ×4 (00:19→23:10)
[2018-11-23] MEDS: ALBUT/IPRATROP 3MG/0.5MG NEB 3 ML VIAL NEB SCH ×6 (02:26→22:28)
[2018-11-23 05:24] LABS: Basophils # (auto) 0.02 K/uL (0-0.2); Basophils % (auto) 0.2 %; Eosinophils # (auto) 0.07 K/uL (0-0.5); Eosinophils % (auto) 0.7 %; Hematocrit (blood only) 34.2 % (37-47); Hemoglobin 11.4 g/dL (12.0-16.0); Immature Granulocytes # (auto) 0.21 K/uL (0.00-0.02); Lymphocytes # (auto) 1.07 K/uL (1.2-3.4); Lymphocytes % (auto) 10.4 %; Mean Corpuscular Hemoglobin 33.5 pg (25-34); Mean Corpuscular Hgb Conc 33.3 g/dL (32-36); Mean Corpuscular Volume 100.6 fL (80-100); Mean Platelet Volume 8.6 fL (7.4-10.4); Monocytes # (auto) 1.03 K/uL (0.11-0.59); Neutrophils # (auto) 7.91 K/uL (1.4-6.5); Neutrophils % (auto) 76.7 %; Platelet Count 208 K/uL (130-400); RDW Coefficient of Variation 12.5 % (11.5-14.5); RDW Standard Deviation 45.8 fL (36.4-46.3); Rouleaux 1+; White Blood Count 10.31 K/uL (4.8-10.8)
[2018-11-23 05:30] LABS: Alanine Aminotransferase 21 U/L (12-78); Albumin Level 2.6 gm/dl (3.4-5.0); Aspartate Aminotransferase 18 U/L (15-37); BUN Creatinine Ratio 18.9 (10-20); Blood Urea Nitrogen 11 mg/dl (7-18); Calcium 9.1 mg/dl (8.5-10.1); Carbon Dioxide 25 mmol/L (21-32); Chloride 103 mmol/L (98-107); Creatinine Clr Calc Pharmacy 104.4 ml/min; Est GFR (African American) > 150.0; Est GFR (Non-African American) 130.1; Glucose 92 mg/dl (70-99); Sodium 137 mmol/L (136-145)
[2018-11-23 05:33] LABS: Albumin Globulin Ratio 0.5 (0.9-2); Alkaline Phosphatase 74 U/L (45-117); Bilirubin,Total 0.2 mg/dl (0.2-1); Globulin 5.4 gm/dl (2.5-4.0)
[2018-11-23] MEDS: BUDESONIDE 0.5 MG/2 ML VIAL (PULMICORT) INH SCH ×2 (07:00→19:46)
[2018-11-23] MEDS: ACETYLCYSTEINE 10% INHAL SOLN **DISPENSED FROM RESP. INH SCH ×2 (07:00→19:46)
[2018-11-23] MEDS: PATIENT'S OWN ENTERAL FEEDING PEG SCH ×4 (07:35→21:28)
[2018-11-23] MEDS: TUBE FEEDING WATER FLUSH PO SCH ×4 (07:35→21:28)
--- NOTE | 2018-11-23 07:35 | XRay Report ---
XR chest 1V portable HISTORY: Follow-up left lower lobe opacity. COMPARISON: Chest 11/22/2018. FINDINGS: Rotated study. No pneumothorax. Tracheostomy tube is unchanged in position. The heart is no rmal in size. Mild diffuse interstitial thickening suggestive of mild congestive change. Slight impro grace aeration within the left lower lobe airspace opacity with a small left pleural effusion. Patchy r ight basilar airspace opacity persists. IMPRESSION: Slight improvement in the left lower lobe airspace opacity with a small left pleural effusion. Right basilar opacity and mild congestive change persists. Electronically signed by: Edmund Dorman M.D. 11/23/2018 7:34 AM
--- NOTE | 2018-11-23 08:37 | Critical Care Progress Note ---
Date of Service November 23, 2018 Assessment & Plan (1) Mucoid impaction of bronchi: Reason Critically Ill: High risk patient with tracheostomy with pneumonia requiring bronchoscopy due to difficulty clearing mucus plugging and ventilator overnight Cardiovascular: Patient tachycardic and blood pressures borderline which is her baseline Close to patient's baseline from previous admissions Will monitor and give fluid as needed Respiratory: Continuing zosyn for her pneumonia plan is for fourteen day course On ventilator at night oxygen requirement has fluctuated throughout admission but tolerating trach collar during day Left lower lobe appears to be consistently mucus plugged. We will get a chest x-ray today.Patient needs aggressive suctioning and CoughAssist 4 times daily. ID: Sputum culture and bronchial lavage growing pseudomonas, sensitive to zosyn On zosyn for this pneumonia and chronic tobramycin for chronic pseudomonal infection Discussed pneumonia vaccination status with mother, she has been adequately vaccinated. She can either get a booster later this year or anytime in the next five for her PPSV vaccination. Neuro: Patient at baseline neuro status, unable to converse Patient with history of seizure disorder as well, will continue home Medicati on GI: Will continue home PEG tube feeds Heme: No hematologic abnormality at this time other than elevated white count secondary to infection Renal: Kidney function normal at baseline Blood draws to every other day DVT PPx: IPCs F/E/N: HOme tube feeds Dipso: ICU Code Status: Conditional, see details on chart (2) Sepsis: (3) Pneumonia: Continue with CoughAssist. Mucomyst nebulized. The sensitivity of the sputum Pseudomonas aeruginosa shows intermediate sensitivity to tobramycin and aztreonam. Patient is on chronic tobramycin inhaled for her Pseudomonas infection. Will discuss with infectious disease to see if there is any benefit of continuing with the tobramycin given the patient is starting to get resistant to it. We will coordinate with ID regarding duration of antibiotics. Current condition and plan discussed with mom at bedside. (4) History of cerebral palsy: (5) History of tracheostomy: (6) Seizure disorder: Subjective Patient seen and examined at bedside. No acute distress, no adverse events overnight. Patient tolerated SIMV pressure support overnight. Getting [id number] CoughAssist every 6 hours. Aggressive suctioning. And frequent change of position. Afebrile Review of Systems Review of Systems: All systems reviewed & are unremarkable except as noted in HPI & below Physical Exam Physical Exam: Constitutional: No acute distress, cachexia HEENT: Opens eyes to voice, PERRLA, positive tracheostomy with site 6 [place] Respiratory system: Decreased air entry on the left side, no wheeze, no rhonchi, positive crackles bilateral lower lobes, more crackles a pressure in the left lower lobe CVS: S1-S2 positive, no murmurs or gallops, tachycardia Abdomen: Soft, nontender, nondistended, positive bowel sounds x4, positive PEG tube Extremities: +2 pulses bilaterally radialis/ dorsalis pedis, no edema, no cyanosis Neuro: Awake alert, nonverbal, cerebral palsy Psych: Normal mood and affect G/U: No Cota Lymphatic: no cervical or axillary lymphadenopathy Results & Data Vital Signs (Past 12 Hours) Vital Signs Temp Pulse Pulse Resp BP Pulse Ox 11/23/18 07:15 93 H 11/23/18 07:01 87 41 H 92 11/23/18 06:00 75 89/46 L 94 11/23/18 05:00 114 H 112/81 98 11/23/18 04:00 36.6 C 114 H 107/71 95 11/23/18 03:00 113 H 107/62 93 11/23/18 02:27 104 H 23 95 11/23/18 02:00 101 H 106/57 L 95 11/23/18 01:00 108 H 104/67 94 11/23/18 00:00 37.0 C 109 H 105/63 96 11/22/18 23:12 88 11/22/18 23:08 88 32 H 95 11/22/18 23:00 91 H 117/65 99 11/22/18 22:28 89 31 H 95 11/22/18 22:04 105 H 35 H 91/58 L 93 11/22/18 21:00 97 H 25 H 110/54 L 99 Laboratory Results 11/23/18 04:40 11/23/18 04:40 Diagnostic Findings Chest x-ray from today reviewed. There is improved aeration on the left lower lobe. PG Care Time/CCT Total # of Minutes Spent Total Time Spent with Patient: Total time spent is greater than 50% in coordination of care (as documented) at patient's floor/unit and/or counseling patient: I have personally spent 35 minutes of critical care time in the direct management of this patient. This is a life/limb threatening event. This includes time spent evaluating patient, direct bedside care, chart review, placing orders, interpretation of diagnostic studies, discussion with consultants, patient, and/or family members regarding treatment decisions, as well as other required patient management activities. This time is exclusive of all separately billable procedures, and teaching time and separate from and in addition to any other critical care service time. Critical Care Time: Yes Total Critical Care Time: 35 (1) Sepsis Sepsis acute organ dysfunction status: unspecified Sepsis type: sepsis due to unspecified organism Qualified Code(s): A41.9 - Sepsis, unspecified organism (2) Pneumonia Laterality: left Lung location: lower lobe of lung Pneumonia type: due to unspecified organism Qualified Code(s): J18.1 - Lobar pneumonia, unspecified organism
[2018-11-23] MEDS: CETIRIZINE 1 MG/ML PEG SCH (08:49)
[2018-11-23] MEDS: NITROFURANTOIN 25 MG/5 ML PEG SCH (08:51)
[2018-11-23] MEDS: BACLOFEN 20 MG TAB PO SCH ×3 (08:54→21:28)
[2018-11-23] MEDS: FLUOXETINE HCL 20 MG/5 ML UDP NG SCH (08:54)
[2018-11-23] MEDS: VALPROIC ACID SOLN 500 MG/10 ML UDC PO SCH ×3 (08:54→21:29)
[2018-11-23] MEDS: POTASSIUM CHLORIDE 20 MEQ/15 ML UDC PEG SCH (08:54)
--- NOTE | 2018-11-23 16:54 | Hospitalist Progress Note ---
Date of Service November 23, 2018 Assessment & Plan (1) Acute on chronic respiratory failure with hypoxia and hypercapnia: acute resp failure 2nd to left-sided pseudomonas pneumonia. remains on zosyn s/p bronch x 5 this admission for removal of mucous plugs. no bronch plans for the time being CXR on 11/22 with similar appearance, no change in left lower lobe opacities acute component improving. daytime vent has been weaned off; now on trach collar during the day. continue night-time vent. defer vent management to critical care staff. (2) Sepsis: 2nd to pneumonia. resolved. afebrile now for three days ID, critical care, pulmonary managing antibiotics. cont broad-spectrum IV abx day #9 of zosyn. question of whether Tobramycin should be continued (3) Pneumonia: left-sided. 2nd to pseudomonas. slowly improving. day #9 of zosyn. also remains on tobramycin nebs but will ask ID if they are in fact needed (4) History of tracheostomy: chronic trach with night-time vent use at home. defer vent management to pulmonary. 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 at baseline is nonverbal, does not follow commands, bed-bound. (6) Seizure disorder: had 30-second seizure 11/18/18. certainly illness, fever, low K, etc may have precipitated/lowered the seizure threshold depakote level therapeutic this admission. no seizures since. cont to monitor. (7) Thrombocytopenia: likely sepsis-associated acceptable platelet count on 11/21 (109) and finally on the rise. platelets 200k today, thus it is resolved (8) Hypokalemia: replaced/resolved 4.0 today change KCL supplement to once daily (9) Status post insertion of percutaneous endoscopic gastrostomy (PEG) tube: tolerating tube feeds (10) DVT prophylaxis: SCDs in place Plan: remain hospitalized until next Thursday for full 14 days of antibiotics Subjective no major changes over night patient relatively comfortable discussed with pulmonary team, no changes in plan they did discuss with patient's family that her sister should likely be treated with antibiotic given resistance to Tobramycin Review of Systems Review of Systems: Unobtainable due to cognitive status Physical Exam Constitutional: WD/WN, vitals as above + thin and + frail appearing Eyes: PERRL, conjunctivae normal, anicteric sclerae ENMT: external ear and nose normal, oropharynx normal (dry mucous membranes) Neck: trachea midline, no thyromegaly (tracheostomy) Respiratory: Auscultation: + diminished lung sounds and + rhonchi (bilaterally); no wheezes Cardiovascular: Rate/Rhythm: regular rhythm and + tachycardic Heart Sounds: normal S1 and normal S2; no murmur Extremities: no edema Gastrointestinal (Abdomen): normal bowel sounds, soft, nontender, no hepatosplenomegaly Musculoskeletal: no cyanosis or clubbing, extremities motor strength 5/5 (contractures of all four extremities, bed bound, minimal strength) Skin: no rashes, warm and dry Psychiatric: Orientation: alert and cooperative; + not oriented to person, + not oriented to place and + not oriented to time Lymphatic: no cervical or axillary lymphadenopathy Results & Data Vital Signs (Past 12 Hours) Vital Signs Temp Pulse Pulse Pulse Resp BP Pulse Ox 11/23/18 16:00 36.8 C 101 H 28 H 98/61 L 93 11/23/18 15:01 96 H 45 H 91/45 L 95 11/23/18 14:45 96 H 38 H 92 11/23/18 14:00 98 H 49 H 99/62 L 93 11/23/18 13:00 108 H 33 H 111/73 94 11/23/18 12:00 86 43 H 96/60 L 92 11/23/18 11:18 92 H 20 99 11/23/18 11:09 101 H 32 H 95/69 L 91 11/23/18 10:00 92 H 38 H 74/54 L 90 11/23/18 09:00 87 26 H 100/63 99 11/23/18 08:39 92 H 46 H 83/48 L 91 11/23/18 08:00 37 C 87 83/57 L 95 11/23/18 07:15 93 H 11/23/18 07:01 87 41 H 92 11/23/18 07:00 87 91/60 L 94 11/23/18 06:00 75 89/46 L 94 11/23/18 05:00 114 H 112/81 98 Laboratory Results Laboratory Results - last 24 hr 11/18/18 11/23/18 11/23/18 16:38 04:40 04:40 WBC 10.31 RBC 3.40 L Hgb 11.4 L Hct 34.2 L MCV 100.6 H MCH 33.5 MCHC 33.3 RDW Std Deviation 45.8 RDW Coeff of Flaquito 12.5 Plt Count 208 MPV 8.6 Immature Gran % (Auto) 2.0 Neut % (Auto) 76.7 Lymph % (Auto) 10.4 Mclennan % (Auto) 10.0 Eos % (Auto) 0.7 Baso % (Auto) 0.2 Immature Gran # (Auto) 0.21 H Neut # (Auto) 7.91 H Lymph # (Auto) 1.07 L Mclennan # (Auto) 1.03 H Eos # (Auto) 0.07 Baso # (Auto) 0.02 Rouleaux 1+ Sodium 137 Potassium 4.0 Chloride 103 Carbon Dioxide 25 Anion Gap 9.0 BUN 11 Creatinine 0.59 L Est Cr Clr Drug Dosing 104.4 Est GFR ( Amer) > 150.0 Est GFR (Non-Af Amer) 130.1 BUN/Creatinine Ratio 18.9 Glucose 92 Calcium 9.1 Total Bilirubin 0.2 AST 18 ALT 21 Alkaline Phosphatase 74 Total Protein 8.0 Albumin 2.6 L Globulin 5.4 H Albumin/Globulin Ratio 0.5 L Herpes Virus Source Bronchial Wash HSV I DNA PCR Not Detected HSV II DNA PCR Not Detected Medications Administered Current Inpatient Medications Acetaminophen (Children's Acetaminophen) 320 mg PO Q4H PRN PRN Reason: Fever Stop: 12/19/18 14:33 Last Admin: 11/19/18 15:03 Dose: 320 mg Documented by: Acetylcysteine (Mucomyst 10%) 3 ml INH BIDR KENNEDY Stop: 12/15/18 18:59 Last Admin: 11/23/18 07:00 Dose: 3 ml Documented by: Albuterol (Duoneb) 3 ml NEB Q4R KENNEDY Stop: 12/15/18 14:59 Last Admin: 11/23/18 14:45 Dose: 3 ml Documented by: Albuterol (Ventolin 0.083% 2.5mg/3ml) 2.5 mg INH Q4H PRN PRN Reason: Wheezing/ shortness of breath Stop: 12/15/18 14:48 Baclofen (Lioresal) 20 mg PO TID KENNEDY Stop: 12/15/18 15:29 Last Admin: 11/23/18 14:38 Dose: 20 mg Documented by: Budesonide (Pulmicort Respules) 0.5 mg INH BIDR [facility] Stop: 12/15/18 18:59 Last Admin: 11/23/18 07:00 Dose: 0.5 mg Documented by: Clonazepam (Klonopin) 0.5 mg PO DAILY PRN PRN Reason: seizures Stop: 12/15/18 15:29 Fluoxetine HCl (Prozac) 20 mg NG DAILY KENNEDY Stop: 12/16/18 08:59 Last Admin: 11/23/18 08:54 Dose: 20 mg Documented by: Acetaminophen (Ofirmev) 65 mls @ 200 mls/hr IV Q8H PRN PRN Reason: fever Stop: 12/15/18 14:48 Last Infusion: 11/18/18 16:01 Dose: Infused Documented by: Piperacillin Sod/Tazobactam (Sod 3.375 gm/ Dextrose) 115 mls @ 28.75 mls/hr IV Q8H [facility]; Protocol Stop: 11/29/18 11:59 Last Admin: 11/23/18 16:00 Dose: 28.8 mls/hr Documented by: Miscellaneous Information (Consult) 1 ea N/A UD PRN PRN Reason: Consult Stop: 12/15/18 14:48 Nitrofurantoin (Furadantin) 50 mg PEG DAILY [facility] Stop: 12/16/18 08:59 Last Admin: 11/23/18 08:51 Dose: 50 mg Documented by: Cetirizine 1mg/Ml: Non-Formulary Patient's Own Med 10 ea PEG DAILY [facility] Stop: 12/16/18 08:59 Last Admin: 11/23/18 08:49 Dose: 10 mg Documented by: Nutritional Formula (Patient's Own Enteral Feeding) 350 ml PEG 0700,1130,1500,1900 [facility] Stop: 12/16/18 11:29 Last Admin: 11/23/18 15:00 Dose: 350 ml Documented by: Polyethylene Glycol (Miralax Powder Packet) 8.5 gm PEG DAILY PRN PRN Reason: bowel regiment Last Admin: 11/20/18 16:47 Dose: 8.5 gm Documented by: Potassium Chloride (Elisabeth Ciel Elix) 20 meq PEG DAILY KENNEDY Stop: 12/22/18 08:59 Last Admin: 11/23/18 08:54 Dose: 20 meq Documented by: Sterile Water (Tube Feeding Water Flush) 1 ea PO QID@07,1130,,19 KENNEDY Stop: 12/15/18 14:59 Last Admin: 11/23/18 15:00 Dose: 1 ea Documented by: Trazodone HCl (Desyrel) 50 mg PEG HS KENNEDY Stop: 12/15/18 20:59 Last Admin: 11/22/18 20:30 Dose: 50 mg Documented by: Valproic Acid (Valproic Acid) 500 mg PO TID KENNEDY Stop: 12/16/18 13:59 Last Admin: 11/23/18 14:38 Dose: 500 mg Documented by: Zonisamide (Zonegran) 1 ea PO HS KENNEDY Stop: 12/15/18 20:59 Last Admin: 11/22/18 20:30 Dose: 1 ea Documented by: Zonisamide (Zonegran) 2 ea PO QAM KENNEDY Stop: 12/16/18 08:59 Last Admin: 11/23/18 10:43 Dose: Not Given Documented by: PG Care Time/CCT Total # of Minutes Spent Total Time Spent with Patient: Total time spent is greater than 50% in coordination of care (as documented) at patient's floor/unit and/or counseling patient: (1) Sepsis Sepsis acute organ dysfunction status: unspecified Sepsis type: sepsis due to unspecified organism Qualified Code(s): A41.9 - Sepsis, unspecified organism (2) Pneumonia Laterality: left Lung location: lower lobe of lung Pneumonia type: due to unspecified organism Qualified Code(s): J18.1 - Lobar pneumonia, unspecified organism
[2018-11-23] MEDS: TRAZODONE HCL 50 MG TAB PEG SCH (21:28)
[2018-11-23] MEDS: ZONISAMIDE 100 MG PO SCH (21:29)
[2018-11-24] MEDS: ALBUT/IPRATROP 3MG/0.5MG NEB 3 ML VIAL NEB SCH ×6 (03:03→23:10)
[2018-11-24] MEDS: TUBE FEEDING WATER FLUSH PO SCH ×4 (06:24→20:27)
[2018-11-24] MEDS: PATIENT'S OWN ENTERAL FEEDING PEG SCH ×4 (06:24→20:27)
[2018-11-24] MEDS: BUDESONIDE 0.5 MG/2 ML VIAL (PULMICORT) INH SCH ×2 (06:58→19:33)
[2018-11-24] MEDS: ACETYLCYSTEINE 10% INHAL SOLN **DISPENSED FROM RESP. INH SCH ×2 (06:58→19:34)
[2018-11-24 07:34] LABS: Basophils # (auto) 0.02 K/uL (0-0.2); Basophils % (auto) 0.3 %; Eosinophils # (auto) 0.11 K/uL (0-0.5); Eosinophils % (auto) 1.5 %; Hematocrit (blood only) 34.8 % (37-47); Hemoglobin 11.3 g/dL (12.0-16.0); Immature Granulocytes # (auto) 0.29 K/uL (0.00-0.02); Lymphocytes # (auto) 1.14 K/uL (1.2-3.4); Lymphocytes % (auto) 15.6 %; Mean Corpuscular Hemoglobin 33.4 pg (25-34); Mean Corpuscular Hgb Conc 32.5 g/dL (32-36); Mean Platelet Volume 8.3 fL (7.4-10.4); Monocytes % (auto) 8.2 %; Neutrophils # (auto) 5.13 K/uL (1.4-6.5); Neutrophils % (auto) 70.4 %; Platelet Count 235 K/uL (130-400); RDW Coefficient of Variation 12.9 % (11.5-14.5); RDW Standard Deviation 47.7 fL (36.4-46.3); Red Blood Count 3.38 M/uL (4.2-5.4); White Blood Count 7.29 K/uL (4.8-10.8)
[2018-11-24] MEDS: PIPERACILLIN/TAZOBACTAM 3.375 GM in DEXTROSE 5% 100 ML IV SCH ×3 (07:49→23:34)
[2018-11-24 08:08] LABS: BUN Creatinine Ratio 24.5 (10-20); Blood Urea Nitrogen 10 mg/dl (7-18); Calcium 9.6 mg/dl (8.5-10.1); Carbon Dioxide 28 mmol/L (21-32); Chloride 104 mmol/L (98-107); Creatinine Clr Calc Pharmacy 142.6 ml/min; Est GFR (African American) > 150.0; Est GFR (Non-African American) 145.5; Glucose 108 mg/dl (70-99); Magnesium 2.3 mg/dl (1.8-2.4); Phosphorus 4.7 mg/dl (2.5-4.9); Potassium 3.9 mmol/L (3.5-5.1); Sodium 138 mmol/L (136-145)
[2018-11-24] MEDS: NITROFURANTOIN 25 MG/5 ML PEG SCH (08:43)
[2018-11-24] MEDS: POTASSIUM CHLORIDE 20 MEQ/15 ML UDC PEG SCH (08:44)
[2018-11-24] MEDS: FLUOXETINE HCL 20 MG/5 ML UDP NG SCH (08:45)
[2018-11-24] MEDS: VALPROIC ACID SOLN 500 MG/10 ML UDC PO SCH ×3 (08:45→20:26)
[2018-11-24] MEDS: CETIRIZINE 1 MG/ML PEG SCH (08:45)
[2018-11-24] MEDS: BACLOFEN 20 MG TAB PO SCH ×3 (08:46→20:26)
--- NOTE | 2018-11-24 08:52 | XRay Report ---
XR chest 1V portable HISTORY: hypoxia COMPARISON: Chest 11/23/2018. FINDINGS: The tracheostomy tube is in good position. The heart is stable in size. Patchy left basilar densities and a small left pleural effusion are again noted. These are not significantly changed. Calderón spect a trace right pleural effusion. No evidence for pulmonary edema. IMPRESSION: No significant change in the left lower lobe airspace opacity and small left pleural effusion. A trac e right pleural effusion also persists. Electronically signed by: Edmund Dorman M.D. 11/24/2018 8:51 AM
--- NOTE | 2018-11-24 11:07 | Critical Care Progress Note ---
Date of Service November 24, 2018 Assessment & Plan (1) Mucoid impaction of bronchi: Reason Critically Ill: High risk patient with tracheostomy with pneumonia required serial bronchoscopy due to difficulty clearing mucus plugging and on ventilator overnight Cardiovascular: Patient tachycardic and blood pressures borderline which is her baseline Close to patient's baseline from previous admissions Will monitor and give fluid as needed Respiratory: Continuing zosyn for her pneumonia plan is for fourteen day course On ventilator at night oxygen requirement has fluctuated throughout admission but tolerating trach collar during day Left lower lobe appears to be consistently mucus plugged. Chest XR today showing worsening lower left lobe pneumonia. ID: Sputum culture and bronchial lavage growing pseudomonas, sensitive to zosyn On zosyn for this pneumonia and chronic tobramycin for chronic pseudomonal infection Discussed pneumonia vaccination status with mother, she has been adequately vaccinated. She can either get a booster later this year or anytime in the next five for her PPSV vaccination. Discussed tobramycin with ID they are happy to discontinue tobramycin due to resistance Neuro: Patient at baseline neuro status, unable to converse Patient with history of seizure disorder as well, will continue home Medication GI: Will continue home PEG tube feeds Heme: No hematologic abnormality at this time other than elevated white count secondary to infection Renal: Kidney function normal at baseline Blood draws to every other day DVT PPx: IPCs F/E/N: HOme tube feeds Dipso: ICU Code Status: Conditional, see details on chart (2) Hypokalemia: (3) Acute on chronic respiratory failure with hypoxia and hypercapnia: (4) S/P admission to ICU (intensive care unit): (5) Sepsis: (6) Pneumonia: (7) Fever: (8) Tachycardia: (9) History of cerebral palsy: (10) History of tracheostomy: (11) Status post insertion of percutaneous endoscopic gastrostomy (PEG) tube: (12) Seizure disorder: (13) Acute respiratory failure with hypoxia and hypercapnia: (14) Admitted to intensive care unit: (15) Acute respiratory failure with hypoxemia: (16) DVT prophylaxis: (17) Thrombocytopenia: (18) Cerebral palsy: (19) Pneumonia: (20) Bronchitis: Supervising Physician Co-Signing Physician Notes Dr. Jaramillo was the resident-physician during care of patient. I separately evaluated patient for canales portions of the history and the exam. I was present during the critical portion of medical decision making, and I discussed the case with the resident. I generally agree with the findings and plan except for any additions/exceptions noted. Patient seen and examined. Chest x-ray from today morning reviewed. Showed atelectasis of the left lower lobe slightly increased compared to yesterday. Patient has increased oxygen demand. Frequent suctioning, chest PT with CoughAssist. Will try new nebulized treatment. Tobramycin has been discontinued with discussion with ID. Continue with Zosyn with total duration of 14 days. I have personally spent 32 minutes of critical care time in the direct management of this patient. This is a life/limb threatening event. This inclu pavan time spent evaluating patient, direct bedside care, chart review, placing orders, interpretation of diagnostic studies, discussion with consultants, patient, and/or family members regarding treatment decisions, as well as other required patient management activities. This time is exclusive of all separately billable procedures, and teaching time and separate from and in addition to any other critical care service time. Bushra Montalvo is doing much the same, sleeping this morning while I examined her laying on her right side, trach collar in place. Review of Systems Review of Systems: All systems reviewed & are unremarkable except as noted in HPI & below Physical Exam Constitutional: + cachectic; no acute distress Eyes: PERRL, conjunctivae normal, anicteric sclerae ENMT: external ear and nose normal, oropharynx normal Respiratory: + tachypneic Auscultation: + diminished lung sounds (More decreased on the left side), + crackles (Left lower lobe) and + rhonchi Cardiovascular: Rate/Rhythm: regular rhythm and + tachycardic; + abnormal rate Heart Sounds: normal S1 and normal S2; no murmur and no cardiac rub Gastrointestinal (Abdomen): normal bowel sounds, soft, nontender, no hepatosplenomegaly Skin: no rashes, warm and dry normal skin elasticity Trauma: no evidence of skin trauma Neurologic: Opens eyes to voice. Lymphatic: no cervical or axillary lymphadenopathy Results & Data Vital Signs (Past 12 Hours) Vital Signs Temp Pulse Pulse Pulse Resp BP Pulse Ox 11/24/18 10:00 83 42 H 88/56 L 92 11/24/18 09:00 84 41 H 92/59 L 86 L 11/24/18 08:00 94 H 37 H 85/54 L 92 11/24/18 07:02 86 33 H 92 11/24/18 07:00 37 C 84 38 H 93/60 L 97 11/24/18 06:00 84 38 H 89/54 L 92 11/24/18 05:34 24 11/24/18 05:00 103 H 19 99/65 L 95 11/24/18 04:57 92 H 24 97 11/24/18 04:00 36.8 C 94 H 26 H 92/54 L 93 11/24/18 03:04 86 24 94 11/24/18 03:00 88 26 H 85/54 L 93 11/24/18 02:00 85 23 80/45 L 94 11/24/18 01:13 95 H 25 H 92 11/24/18 01:00 95 H 25 H 89/51 L 91 11/24/18 00:00 36.8 C 89 30 H 82/48 L 91 11/23/18 23:02 102 H 28 H 105/66 100 Laboratory Results 11/24/18 07:21 11/24/18 07:21 PG Care Time/CCT Total # of Minutes Spent Total Time Spent with Patient: Total time spent is greater than 50% in coor dination of care (as documented) at patient's floor/unit and/or counseling patient: Critical Care Time: Yes Total Critical Care Time: 32 Resident Activity Tracking Resident Involvement: Resident Care Provided Care Provided: Adult Hospital Medicine (1) Fever Fever type: unspecified Qualified Code(s): R50.9 - Fever, unspecified (2) Cerebral palsy Cerebral palsy type: unspecified type Qualified Code(s): G80.9 - Cerebral p alsy, unspecified (3) Sepsis Sepsis acute organ dysfunction status: unspecified Sepsis type: sepsis due to unspecified organism Qualified Code(s): A41.9 - Sepsis, unspecified organism (4) Pneumonia Laterality: left Lung location: lower lobe of lung Pneumonia type: due to unspecified organism Qualified Code(s): J18.1 - Lobar pneumonia, unspecified organism (5) Pneumonia Laterality: left Lung location: lower lobe of lung Pneumonia type: due to unspecified organism Qualified Code(s): J18.1 - Lobar pneumonia, unspecified organism
[2018-11-24] MEDS: TRAZODONE HCL 50 MG TAB PEG SCH (20:26)
[2018-11-24] MEDS: ZONISAMIDE 100 MG PO SCH (20:27)
[2018-11-25] MEDS: ALBUT/IPRATROP 3MG/0.5MG NEB 3 ML VIAL NEB SCH ×6 (02:16→23:23)
[2018-11-25 04:54] LABS: Basophils # (auto) 0.02 K/uL (0-0.2); Basophils % (auto) 0.2 %; Eosinophils % (auto) 1.1 %; Hematocrit (blood only) 34.2 % (37-47); Hemoglobin 11.2 g/dL (12.0-16.0); Immature Granulocytes # (auto) 0.26 K/uL (0.00-0.02); Immature Granulocytes % (auto) 2.9 %; Lymphocytes # (auto) 1.14 K/uL (1.2-3.4); Lymphocytes % (auto) 12.8 %; Mean Corpuscular Hemoglobin 33.4 pg (25-34); Mean Corpuscular Hgb Conc 32.7 g/dL (32-36); Mean Corpuscular Volume 102.1 fL (80-100); Mean Platelet Volume 8.5 fL (7.4-10.4); Monocytes # (auto) 1.17 K/uL (0.11-0.59); Monocytes % (auto) 13.2 %; Neutrophils % (auto) 69.8 %; Nucleated RBC # (auto) 0.03 K/uL (0-0); Nucleated RBC % (auto) 0.3 %; Platelet Count 253 K/uL (130-400); RDW Standard Deviation 47.5 fL (36.4-46.3); Red Blood Count 3.35 M/uL (4.2-5.4); White Blood Count 8.89 K/uL (4.8-10.8)
[2018-11-25 05:27] LABS: BUN Creatinine Ratio 16.9 (10-20); Blood Urea Nitrogen 9 mg/dl (7-18); Calcium 9.1 mg/dl (8.5-10.1); Carbon Dioxide 29 mmol/L (21-32); Chloride 104 mmol/L (98-107); Creatinine Clr Calc Pharmacy 117.5 ml/min; Est GFR (African American) > 150.0; Est GFR (Non-African American) 136.5; Glucose 91 mg/dl (70-99); Magnesium 2.2 mg/dl (1.8-2.4); Potassium 4.1 mmol/L (3.5-5.1); Sodium 140 mmol/L (136-145)
[2018-11-25] MEDS: PATIENT'S OWN ENTERAL FEEDING PEG SCH ×4 (06:19→18:41)
[2018-11-25] MEDS: TUBE FEEDING WATER FLUSH PO SCH ×4 (06:20→18:41)
[2018-11-25] MEDS: ACETYLCYSTEINE 10% INHAL SOLN **DISPENSED FROM RESP. INH SCH ×2 (07:17→20:40)
[2018-11-25] MEDS: BUDESONIDE 0.5 MG/2 ML VIAL (PULMICORT) INH SCH ×2 (07:17→19:47)
--- NOTE | 2018-11-25 07:27 | XRay Report ---
XR chest 1V portable CLINICAL HISTORY: f/u COMPARISON STUDY: Chest radiograph September 24, 2018. FINDINGS: Tracheostomy tube is in place. There is no pneumothorax. A small left pleural effusion with left basilar opacity persists. There is left lower lung volume loss. There is no evidence for pulmon jose de jesus edema. There is mild right basilar opacity and a trace right pleural effusion. Cardiomediastinal silhouette is stable. IMPRESSION: 1. No change in left basilar opacity which may reflect consolidation or atelectasis. Small left pleur al effusion. 2. Mild right lower lung opacities with a trace right pleural effusion. Electronically signed by: Otto Pearce M.D. 11/25/2018 7:26 AM
--- NOTE | 2018-11-25 09:07 | Critical Care Progress Note ---
Date of Service November 25, 2018 Assessment & Plan (1) Mucoid impaction of bronchi: Reason Critically Ill: High risk patient with tracheostomy with pneumonia required serial bronchoscopy due to difficulty clearing mucus plugging and on ventilator overnight Cardiovascular: Patient tachycardic and blood pressures borderline which is her baseline Close to patient's baseline from previous admissions Will monitor and give fluid as needed Respiratory: Continuing zosyn for her pneumonia plan is for fourteen day course On ventilator at night oxygen requirement has fluctuated throughout admission but tolerating trach collar during day Left lower lobe appears to be consistently mucus plugged. Chest XR today continuing to show marked consolidation of left lower lobe ID: Sputum culture and bronchial lavage growing pseudomonas, sensitive to zosyn On zosyn for this pneumonia and chronic tobramycin for chronic pseudomonal infection Discussed pneumonia vaccination status with mother, she has been adequately vaccinated. She can either get a booster later this year or anytime in the next five for her PPSV vaccination. Discussed tobramycin with ID they are happy to discontinue tobramycin due to resistance Neuro: Patient at baseline neuro status, unable to converse Patient with history of seizure disorder as well, will continue home Valproic acid GI: Will continue home PEG tube feeds Heme: No hematologic abnormality at this time other than elevated white count secon domenic to infection Renal: Kidney function normal at baseline Blood draws to every other day DVT PPx: IPCs F/E/N: HOme tube feeds Dipso: ICU Code Status: Conditional, see details on chart (2) Hypokalemia: (3) Acute on chronic respiratory failure with hypoxia and hypercapnia: (4) S/P admission to ICU (intensive care unit): (5) Sepsis: (6) Fever: (7) Tachycardia: (8) History of cerebral palsy: (9) History of tracheostomy: (10) Status post insertion of percutaneous endoscopic gastrostomy (PEG) tube: (11) Seizure disorder: (12) Acute respiratory failure with hypoxia and hypercapnia: (13) Admitted to intensive care unit: (14) Acute respiratory failure with hypoxemia: (15) DVT prophylaxis: (16) Thrombocytopenia: (17) Cerebral palsy: (18) Pneumonia: (19) Bronchitis: Supervising Physician Co-Signing Physician Notes Dr. Jaramillo was the resident-physician during care of patient. I separately evaluated patient for canales portions of the history and the exam. I was present during the critical portion of medical decision making, and I discussed the case with the resident. I generally agree with the findings and plan except for any additions/exceptions noted. Patient seen and examined at bedside. Chest x-ray done today reviewed. States shows persistent left lower lobe atelectasis. Will change the frequency of CoughAssist to every 4 hours. Continue with change in positioning. Tobramycin has been discontinued with discussion with ID. Continue with Zosyn with total duration of 14 days. I have personally spent 31 minutes of critical care time in the direct management of this patient. This is a life/limb threatening event. This includes time spent evaluating patient, direct bedside care, chart review, placing orders, interpretation of diagnostic studies, discussion with consultants, patient, and/or family members regarding treatment decisions, as well as other required patient management activities. This time is exclusive of all separately billable procedures, and teaching time and separate from and in addition to any other critical care service time. Subjective Selvin is continuing to cough of mucus this morning, appears uncomfortable and has needed to be suctioned frequently. Review of Systems Review of Systems: Unobtainable due to cognitive status Physical Exam Constitutional: + cachectic; no acute distress Moderate distress secondary to secretions Eyes: PERRL, conjunctivae normal, anicteric sclerae ENMT: external ear and nose normal, oropharynx normal Respiratory: + tachypneic Auscultation: + diminished lung sounds (More decreased on the left side), + crackles (Left lower lobe) and + rhonchi Cardiovascular: Rate/Rhythm: regular rhythm and + tachycardic; + abnormal rate Heart Sounds: normal S1 and normal S2; no murmur and no cardiac rub Gastrointestinal (Abdomen): normal bowel sounds, soft, nontender, no hepatosplenomegaly Skin: no rashes, warm and dry normal skin elasticity Trauma: no evidence of skin trauma Lymphatic: no cervical or axillary lymphadenopathy Results & Data Vital Signs (Past 12 Hours) Vital Signs Temp Pulse Pulse Resp BP Pulse Ox 11/25/18 06:00 100 H 26 H 111/79 95 11/25/18 05:40 19 11/25/18 04:00 36.7 C 91 H 19 112/71 94 11/25/18 02:16 102 H 13 98 11/25/18 02:00 86 19 96/70 L 98 11/25/18 00:00 36.9 C 90 20 98/65 L 93 11/24/18 23:00 92 H 26 H 95 11/24/18 22:00 94 H 24 94/71 L 96 11/24/18 21:29 102 H 24 90 PG Care Time/CCT Total # of Minutes Spent Total Time Spent with Patient: Total time spent is greater than 50% in coordination of care (as documented) at patient's floor/unit and/or counseling patient: Critical Care Time: Yes Total Critical Care Time: 31 Resident Activity Tracking Resident Involvement: Resident Care Provided Care Provided: Adult Hospital Medicine (1) Fever Fever type: unspecified Qualified Code(s): R50.9 - Fever, unspecified (2) Cerebral palsy Cerebral palsy type: unspecified type Qualified Code(s): G80.9 - Cerebral palsy, unspecified (3) Sepsis Sepsis acute organ dysfunction status: unspecified Sepsis type: sepsis due to unspecified organism Qualified Code(s): A41.9 - Sepsis, unspecified organism (4) Pneumonia Laterality: left Lung location: lower lobe of lung Pneumonia type: due to unspecified organism Qualified Code(s): J18.1 - Lobar pneumonia, unspecified organism
[2018-11-25] MEDS: PIPERACILLIN/TAZOBACTAM 3.375 GM in DEXTROSE 5% 100 ML IV SCH ×3 (09:09→23:13)
[2018-11-25] MEDS: POTASSIUM CHLORIDE 20 MEQ/15 ML UDC PEG SCH (09:09)
[2018-11-25] MEDS: VALPROIC ACID SOLN 500 MG/10 ML UDC PO SCH ×3 (09:09→20:01)
[2018-11-25] MEDS: FLUOXETINE HCL 20 MG/5 ML UDP NG SCH (09:09)
[2018-11-25] MEDS: BACLOFEN 20 MG TAB PO SCH ×3 (09:10→20:01)
[2018-11-25] MEDS: CETIRIZINE 1 MG/ML PEG SCH (09:13)
[2018-11-25] MEDS: NITROFURANTOIN 25 MG/5 ML PEG SCH (09:14)
[2018-11-25] MEDS: TRAZODONE HCL 50 MG TAB PEG SCH (20:01)
[2018-11-25] MEDS: ZONISAMIDE 100 MG PO SCH (20:01)
--- NOTE | 2018-11-25 22:19 | Hospitalist Progress Note ---
Date of Service November 25, 2018 Assessment & Plan (1) Acute on chronic respiratory failure with hypoxia and hypercapnia: acute resp failure 2nd to left-sided pseudomonas pneumonia. remains on zosyn s/p bronch x 5 this admission for removal of mucous plugs. no bronch plans for the time being CXR on 11/22 with similar appearance, no change in left lower lobe opacities acute component improving. daytime vent has been weaned off; now on trach collar during the day. continue night-time vent. defer vent management to critical care staff. (2) Sepsis: 2nd to pneumonia. resolved. afebrile now for five days ID, critical care, pulmonary managing antibiotics. cont broad-spectrum IV abx day #11 of zosyn. no longer needs Tobramycin inhaled (3) Pneumonia: left-sided. 2nd to pseudomonas. slowly improving. day #11 of zosyn. per ID, can stop Tobramycin nebulizers (4) History of tracheostomy: chronic trach with night-time vent use at home. defer vent management to pulmonary. 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 at baseline is nonverbal, does not follow commands, bed-bound. (6) Seizure disorder: had 30-second seizure 11/18/18. certainly illness, fever, low K, etc may have precipitated/lowered the seizure threshold depakote level therapeutic this admission. no seizures since. cont to monitor. (7) Thrombocytopenia: likely sepsis-associated acceptable platelet count on 11/21 (109) and finally on the rise. platelets 253k today (8) Hypokalemia: replaced/resolved 4.1 today (9) Status post insertion of percutaneous endoscopic gastrostomy (PEG) tube: tolerating tube feeds (10) DVT prophylaxis: SCDs in place Plan: remain hospitalized until next Thursday for full 14 days of antibiotics Subjective no major changes patient still with left lower lobe consolidation on CXR tobramycin has been stopped continue on Zosyn d/w ICU staff, they are managing her care Review of Systems Review of Systems: Unobtainable due to cognitive status Physical Exam Constitutional: WD/WN, vitals as above + thin and + frail appearing Eyes: PERRL, conjunctivae normal, anicteric sclerae ENMT: external ear and nose normal, oropharynx normal (dry mucous membranes) Neck: trachea midline, no thyromegaly (tracheostomy) Respiratory: Auscultation: + diminished lung sounds and + rhonchi (bilaterally); no wheezes Cardiovascular: Rate/Rhythm: regular rhythm and + tachycardic Heart Sounds: normal S1 and normal S2; no murmur Extremities: no edema Gastrointestinal (Abdomen): normal bowel sounds, soft, nontender, no hepatosplenomegaly Musculoskeletal: no cyanosis or clubbing, extremities motor strength 5/5 (contractures of all four extremities, bed bound, minimal strength) Skin: no rashes, warm and dry Psychiatric: Orientation: alert and cooperative; + not oriented to person, + not oriented to place and + not oriented to time Lymphatic: no cervical or axillary lymphadenopathy Results & Data Vital Signs (Past 12 Hours) Vital Signs Temp Pulse Pulse Pulse Resp BP BP 11/25/18 22:00 100 H 26 H 117/78 11/25/18 20:00 37.3 C 103 H 26 H 92/62 L 11/25/18 19:47 108 H 33 H 11/25/18 17:57 36.7 C 11/25/18 17:30 109 H 41 H 11/25/18 17:00 98 H 23 97/57 L 11/25/18 16:31 104 H 34 H 11/25/18 16:30 111 H 55 H 11/25/18 16:00 108 H 29 H 95/61 L 11/25/18 15:30 107 H 56 H 11/25/18 15:00 102 H 49 H 108/61 11/25/18 14:30 108 H 38 H 11/25/18 14:00 110 H 45 H 109/73 11/25/18 13:00 117 H 29 H 116/72 11/25/18 12:25 110 H 32 H 11/25/18 12:00 102 H 27 H 89/59 L 11/25/18 11:30 93 H 30 H 11/25/18 11:00 97 H 31 H 93/59 L 11/25/18 10:30 97 H 36 H Pulse Ox 11/25/18 22:00 97 11/25/18 20:00 92 11/25/18 19:47 94 11/25/18 17:57 11/25/18 17:30 89 L 11/25/18 17:00 87 L 11/25/18 16:31 94 11/25/18 16:30 91 10/03/19 16:00 95 11/25/18 15:30 94 11/25/18 15:00 95 11/25/18 14:30 87 L 11/25/18 14:00 88 L 11/25/18 13:00 89 L 11/25/18 12:25 95 11/25/18 12:00 95 11/25/18 11:30 97 11/25/18 11:00 95 11/25/18 10:30 92 Laboratory Results Laboratory Results - last 24 hr 11/25/18 11/25/18 04:35 04:35 WBC 8.89 RBC 3.35 L Hgb 11.2 L Hct 34.2 L MCV 102.1 H MCH 33.4 MCHC 32.7 RDW Std Deviation 47.5 H RDW Coeff of [place] 13.0 Plt Count 253 MPV 8.5 Immature Gran % (Auto) 2.9 Neut % (Auto) 69.8 Lymph % (Auto) 12.8 Coal % (Auto) 13.2 Eos % (Auto) 1.1 Baso % (Auto) 0.2 Immature Gran # (Auto) 0.26 H Neut # (Auto) 6.20 Lymph # (Auto) 1.14 L Coal # (Auto) 1.17 H Eos # (Auto) 0.10 Baso # (Auto) 0.02 Absolute Nucleated RBC 0.03 H Nucleated RBC % (auto) 0.3 Sodium 140 Potassium 4.1 Chloride 104 Carbon Dioxide 29 Anion Gap 7.0 BUN 9 Creatinine 0.51 L Est Cr Clr Drug Dosing 117.5 Est GFR ( Amer) > 150.0 Est GFR (Non-Af Amer) 136.5 BUN/Creatinine Ratio 16.9 Glucose 91 Calcium 9.1 Phosphorus 5.0 H Magnesium 2.2 Specimen Hemolysis Medications Administered Current Inpatient Medications Acetaminophen (Children's Acetaminophen) 320 mg PO Q4H PRN PRN Reason: Fever Stop: 12/19/18 14:33 Last Admin: 11/19/18 15:03 Dose: 320 mg Documented by: Acetylcysteine (Mucomyst 10%) 3 ml INH BIDR KENNEDY Stop: 12/15/18 18:59 Last Admin: 11/25/18 20:40 Dose: Not Given Documented by: Albuterol (Duoneb) 3 ml NEB Q4R KENNEDY Stop: 12/15/18 14:59 Last Admin: 11/25/18 19:47 Dose: 3 ml Documented by: Albuterol (Ventolin 0.083% 2.5mg/3ml) 2.5 mg INH Q4H PRN PRN Reason: Wheezing/ shortness of breath Stop: 12/15/18 14:48 Baclofen (Lioresal) 20 mg PO TID KENNEDY Stop: 12/15/18 15:29 Last Admin: 11/25/18 20:01 Dose: 20 mg Documented by: Budesonide (Pulmicort Respules) 0.5 mg INH BIDR KENNEDY Stop: 12/15/18 18:59 Last Admin: 11/25/18 19:47 Dose: 0.5 mg Documented by: Clonazepam (Klonopin) 0.5 mg PO DAILY PRN PRN Reason: seizures Stop: 12/15/18 15:29 Fluoxetine HCl (Prozac) 20 mg NG DAILY [facility] Stop: 12/16/18 08:59 Last Admin: 11/25/18 09:09 Dose: 20 mg Documented by: Acetaminophen (Ofirmev) 65 mls @ 200 mls/hr IV Q8H PRN PRN Reason: fever Stop: 12/15/18 14:48 Last Infusion: 11/18/18 16:01 Dose: Infused Documented by: Piperacillin Sod/Tazobactam (Sod 3.375 gm/ Dextrose) 115 mls @ 28.75 mls/hr IV Q8H [facility]; Protocol Stop: 11/29/18 11:59 Last Infusion: 11/25/18 18:42 Dose: Infused Documented by: Miscellaneous Information (Consult) 1 ea N/A UD PRN PRN Reason: Consult Stop: 12/15/18 14:48 Nitrofurantoin (Furadantin) 50 mg PEG DAILY [facility] Stop: 12/16/18 08:59 Last Admin: 11/25/18 09:14 Dose: 50 mg Documented by: Cetirizine 1mg/Ml: Non-Formulary Patient's Own Med 10 ea PEG DAILY [facility] Stop: 12/16/18 08:59 Last Admin: 11/25/18 09:13 Dose: 10 mg Documented by: Nutritional Formula (Patient's Own Enteral Feeding) 350 ml PEG 0700,1130,1500,1900 [facility] Stop: 12/16/18 11:29 Last Admin: 11/25/18 18:41 Dose: 350 ml Documented by: Polyethylene Glycol (Miralax Powder Packet) 8.5 gm PEG DAILY PRN PRN Reason: bowel regiment Last Admin: 11/20/18 16:47 Dose: 8.5 gm Documented by: Potassium Chloride (Elisabeth Ciel Elix) 20 meq PEG DAILY [facility] Stop: 12/22/18 08:59 Last Admin: 11/25/18 09:09 Dose: 20 meq Documented by: Sterile Water (Tube Feeding Water Flush) 1 ea PO QID@07,1130,15,19 [facility] Stop: 12/15/18 14:59 Last Admin: 11/25/18 18:41 Dose: 1 ea Documented by: Trazodone HCl (Desyrel) 50 mg PEG HS [facility] Stop: 12/15/18 20:59 Last Admin: 11/25/18 20:01 Dose: 50 mg Documented by: Valproic Acid (Valproic Acid) 500 mg PO TID KENNEDY Stop: 12/16/18 13:59 Last Admin: 11/25/18 20:01 Dose: 500 mg Documented by: Zonisamide (Zonegran) 1 ea PO HS [facility] Stop: 12/15/18 20:59 Last Admin: 11/25/18 20:01 Dose: 1 ea Documented by: Zonisamide (Zonegran) 2 ea PO QAM [facility] Stop: 12/16/18 08:59 Last Admin: 11/25/18 09:13 Dose: 2 ea Documented by: PG Care Time/CCT Total # of Minutes Spent Total Time Spent with Patient: Total time spent is greater than 50% in coordination of care (as documented) at patient's floor/unit and/or counseling patient: (1) Sepsis Sepsis acute organ dysfunction status: unspecified Sepsis type: sepsis due to unspecified organism Qualified Code(s): A41.9 - Sepsis, unspecified organism (2) Pneumonia Laterality: left Lung location: lower lobe of lung Pneumonia type: due to unspecified organism Qualified Code(s): J18.1 - Lobar pneumonia, unspecified organism
[2018-11-26] MEDS: ALBUT/IPRATROP 3MG/0.5MG NEB 3 ML VIAL NEB SCH ×6 (03:36→23:18)
[2018-11-26] MEDS: PATIENT'S OWN ENTERAL FEEDING PEG SCH ×4 (06:11→18:09)
[2018-11-26] MEDS: TUBE FEEDING WATER FLUSH PO SCH ×4 (06:12→18:09)
--- NOTE | 2018-11-26 06:55 | XRay Report ---
XR chest 1V portable CLINICAL HISTORY: 23 years-old Female presenting with f/u. TECHNIQUE: Portable upright AP view of the chest was obtained. COMPARISON: 11/25/2018. FINDINGS: Tracheostomy tube terminates in the upper thoracic trachea as on prior. Cardiomediastinal silhouette normal. Persistent left basilar opacity and left pleural effusion. No pneumothorax. Osseous structure s normal. Upper abdomen normal. IMPRESSION: 1. Left basilar infiltrate and associated left pleural effusion unchanged from prior. This concernin g for pneumonia with a parapneumonic effusion. Electronically signed by: Ray Rachel M.D. 11/26/2018 6:53 AM
[2018-11-26] MEDS: BUDESONIDE 0.5 MG/2 ML VIAL (PULMICORT) INH SCH ×2 (07:20→18:58)
[2018-11-26] MEDS: ACETYLCYSTEINE 10% INHAL SOLN **DISPENSED FROM RESP. INH SCH ×2 (07:57→18:58)
[2018-11-26] MEDS: PIPERACILLIN/TAZOBACTAM 3.375 GM in DEXTROSE 5% 100 ML IV SCH ×2 (08:06→15:50)
[2018-11-26] MEDS: CETIRIZINE 1 MG/ML PEG SCH (08:07)
[2018-11-26] MEDS: VALPROIC ACID SOLN 500 MG/10 ML UDC PO SCH ×3 (08:08→20:03)
[2018-11-26] MEDS: BACLOFEN 20 MG TAB PO SCH ×3 (08:08→20:03)
[2018-11-26] MEDS: FLUOXETINE HCL 20 MG/5 ML UDP NG SCH (08:09)
[2018-11-26] MEDS: NITROFURANTOIN 25 MG/5 ML PEG SCH (08:10)
[2018-11-26] MEDS: POTASSIUM CHLORIDE 20 MEQ/15 ML UDC PEG SCH (08:10)
--- NOTE | 2018-11-26 08:37 | Critical Care Progress Note ---
Date of Service November 26, 2018 Assessment & Plan (1) Mucoid impaction of bronchi: Reason Critically Ill: High risk patient with tracheostomy with pneumonia required serial bronchoscopy due to difficulty clearing mucus plugging and on ventilator overnight Cardiovascular: Patient tachycardic and blood pressures borderline Close to patient's baseline from previous admissions Will monitor and give fluid as needed Respiratory: Continuing zosyn for her pneumonia plan is for fourteen day course On ventilator at night oxygen requirement has fluctuated throughout admission but tolerating trach collar during day down to 35 % FiO2 today improved from 50 yesterday Left lower lobe appears to be consistently mucus plugged. CXR continues to show left lower lobe consolidation/collapse ID: Sputum culture and bronchial lavage growing pseudomonas, sensitive to zosyn On zosyn for this pneumonia and chronic tobramycin for chronic pseudomonal infection Discussed pneumonia vaccination status with mother, she has been adequately vaccinated. She can either get a booster later this year or anytime in the next five for her PPSV vaccination. Discussed tobramycin with ID they are happy to discontinue tobramycin due to resistance Neuro: Patient at baseline neuro status, unable to converse Patient with history of seizure disorder as well, will continue home Valproic acid GI: Will continue home PEG tube feeds Heme: No hematologic abnormality at this time other than elevated white count secondary to infection Renal: Kidney function normal at baseline Blood draws to every other day DVT PPx: IPCs F/E/N: HOme tube feeds Dipso: ICU Code Status: Conditional, see details on chart (2) Hypokalemia: (3) Acute on chronic respiratory failure with hypoxia and hypercapnia: (4) S/P admission to ICU (intensive care unit): (5) Sepsis: (6) Fever: (7) Tachycardia: (8) History of cerebral palsy: (9) History of tracheostomy: (10) Status post insertion of percutaneous endoscopic gastrostomy (PEG) tube: (11) Seizure disorder: (12) Acute respiratory failure with hypoxia and hypercapnia: (13) Admitted to intensive care unit: (14) Acute respiratory failure with hypoxemia: (15) DVT prophylaxis: (16) Thrombocytopenia: (17) Cerebral palsy: (18) Pneumonia: (19) Bronchitis: Supervising Physician Co-Signing Physician Notes Dr. Jaramillo was the resident-physician during care of patient. I separately evaluated patient for canales portions of the history and the exam. I was present during the critical portion of medical decision making, and I discussed the case with the resident. I generally agree with the findings and plan except for any additions/exceptions noted. Patient seen and examined. Chest x-ray reviewed personally shows no significant change from previous. Oxygen requirement has gone down to 35%. Patient looks more comfortable. The frequent CoughAssist's is helping. Continue with rhonchi dilators and Mucomyst. Tobramycin has been discontinued with discussion with ID. Continue with Zosyn with total duration of 14 days. I have personally spent 30 minutes of critical care time in the direct management of this patient. This is a life/limb threatening event. This in cludes time spent evaluating patient, direct bedside care, chart review, placing orders, interpretation of diagnostic studies, discussion with consultants, patient, and/or family members regarding treatment decisions, as well as other required patient management activities. This time is exclusive of all separately billable procedures, and teaching time and separate from and in addition to any other critical care service time. Subjective Ms. Alcala looks more comfortable this morning, tolerating a lower FiO2 of 35 vs 50 yesterday, not coughing no apparent distress. Review of Systems Review of Systems: Unobtainable due to cognitive status Physical Exam Physical Exam: Constitutional: + cachectic; no acute distress Moderate distress secondary to secretions Eyes: PERRL, conjunctivae normal, anicteric sclerae ENMT: external ear and nose normal, oropharynx normal Respiratory: + tachypneic Auscultation: + diminished lung sounds (More decreased on the left side), + crackles (Left lower lobe) and + rhonchi Cardiovascular: Rate/Rhythm: regular rhythm and + tachycardic; + abnormal rate Heart Sounds: normal S1 and normal S2; no murmur and no cardiac rub Gastrointestinal (Abdomen): normal bowel sounds, soft, nontender, no hepatosplenomegaly Skin: no rashes, warm and dry normal skin elasticity Trauma: no evidence of skin trauma Lymphatic: no cervical or axillary lymphadenopathy Constitutional: + cachectic; no acute distress Respiratory: + tachypneic Auscultation: + diminished lung sounds (More decreased on the left side), + crackles (Left lower lobe) and + rhonchi Skin: no rashes, warm and dry normal skin elasticity Trauma: no evidence of skin trauma Lymphatic: no cervical or axillary lymphadenopathy Results & Data Vital Signs (Past 12 Hours) Vital Signs Temp Pulse Pulse Pulse Resp BP Pulse Ox 11/26/18 07:41 105 H 34 H 96 11/26/18 06:00 93 H 26 H 97/55 L 94 11/26/18 04:00 36.7 C 91 H 26 H 106/62 93 11/26/18 03:56 103 H 16 93 11/26/18 02:00 89 26 H 100/67 94 11/26/18 01:12 94 H 29 H 94 11/26/18 00:00 37.2 C 98 H 26 H 105/65 93 11/25/18 23:45 102 H 24 94 11/25/18 23:23 101 H 27 H 95 11/25/18 22:00 100 H 26 H 117/78 97 Laboratory Results 11/25/18 04:35 11/25/18 04:35 PG Care Time/CCT Total # of Minutes Spent Total Time Spent with Patient: Total time spent is greater than 50% in coordination of care (as documented) at patient's floor/unit and/or counseling patient: Critical Care Time: Yes Total Critical Care Time: 30 Resident Activity Tracking Resident Involvement: Resident Care Provided Care Provided: Adult Hospital Medicine (1) Fever Fever type: unspecified Qualified Code(s): R50.9 - Fever, unspecified (2) Cerebral palsy Cerebral palsy type: unspecified type Qualified Code(s): G80.9 - Cerebral palsy, unspecified (3) Sepsis Sepsis acute organ dysfunction status: unspecified Sepsis type: sepsis due to unspecified organism Qualified Code(s): A41.9 - Sepsis, unspecified organism (4) Pneumonia Laterality: left Lung location: lower lobe of lung Pneumonia type: due to unspecified organism Qualified Code(s): J18.1 - Lobar pneumonia, unspecified organism
--- NOTE | 2018-11-26 15:50 | Hospitalist Progress Note ---
Date of Service November 26, 2018 Assessment & Plan (1) Acute on chronic respiratory failure with hypoxia and hypercapnia: acute resp failure 2nd to left-sided pseudomonas pneumonia. remains on zosyn s/p bronch x 5 this admission for removal of mucous plugs. no bronch plans for the time being CXR on 11/22 with similar appearance, no change in left lower lobe opacities acute component improving. daytime vent has been weaned off; now on trach collar during the day. continue night-time vent. defer vent management to critical care staff. FiO2 down to 35% today, appears more comfortable (2) Sepsis: 2nd to pneumonia. resolved. afebrile now for 6 days ID, critical care, pulmonary managing antibiotics. cont broad-spectrum IV abx day #12 of zosyn. no longer needs Tobramycin inhaled (3) Pneumonia: left-sided. 2nd to pseudomonas. slowly improving. day #12 of zosyn. per ID, can stop Tobramycin nebulizers (4) History of tracheostomy: chronic trach with night-time vent use at home. defer vent management to pulmonary. 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 at baseline is nonverbal, does not follow commands, bed-bound. (6) Seizure disorder: had 30-second seizure 11/18/18. certainly illness, fever, low K, etc may have precipitated/lowered the seizure threshold depakote level therapeutic this admission. no seizures since. cont to monitor. (7) Thrombocytopenia: likely sepsis-associated acceptable platelet count on 11/21 (109) and finally on the rise. platelets 253k on 11/25 (8) Hypokalemia: replaced/resolved 4.1 on 11/25 (9) Status post insertion of percutaneous endoscopic gastrostomy (PEG) tube: tolerating tube feeds (10) DVT prophylaxis: SCDs in place Plan: remain hospitalized until next Thursday for full 14 days of antibiotics Subjective patient stable, FiO2 down to 35% which is better from 50% yesterday improving with Cough assist treatments ICU/pulmonary managing patient no labs today Review of Systems Review of Systems: Unobtainable due to cognitive status Physical Exam Constitutional: WD/WN, vitals as above + thin and + frail appearing Eyes: PERRL, conjunctivae normal, anicteric sclerae ENMT: external ear and nose normal, oropharynx normal (dry mucous membranes) Neck: trachea midline, no thyromegaly (tracheostomy) Respiratory: Auscultation: + diminished lung sounds and + rhonchi (bi laterally); no wheezes Cardiovascular: Rate/Rhythm: regular rhythm and + tachycardic Heart Sounds: normal S1 and normal S2; no murmur Extremities: no edema Gastrointestinal (Abdomen): normal bowel sounds, soft, nontender, no hepatosplenomegaly Musculoskeletal: no cyanosis or clubbing, extremities motor strength 5/5 (contractures of all four extremities, bed bound, minimal strength) Skin: no rashes, warm and dry Psychiatric: Orientation: alert and cooperative; + not oriented to person, + not oriented to place and + not oriented to time Lymphatic: no cervical or axillary lymphadenopathy Results & Data Vital Signs (Past 12 Hours) Vital Signs Temp Pulse Pulse Resp BP BP Pulse Ox 11/26/18 15:09 99 H 32 H 91 11/26/18 15:01 100 H 34 H 92/53 L 91 11/26/18 14:00 100 H 39 H 99/64 L 91 11/26/18 13:00 100 H 42 H 101/61 92 11/26/18 12:00 36.6 C 96 H 30 H 100/65 92 11/26/18 11:28 93 H 31 H 93 11/26/18 11:06 87 35 H 109/72 95 11/26/18 10:00 98 H 35 H 96/64 L 92 11/26/18 09:00 98 H 37 H 92/56 L 90 11/26/18 08:00 36.5 C 104 H 29 H 95/60 L 90 11/26/18 07:41 105 H 34 H 96 11/26/18 07:00 97 H 39 H 91/57 L 94 11/26/18 06:00 93 H 26 H 97/55 L 94 11/26/18 04:00 36.7 C 91 H 26 H 106/62 93 11/26/18 03:56 103 H 16 93 Medications Administered Current Inpatient Medications Acetaminophen (Children's Acetaminophen) 320 mg PO Q4H PRN PRN Reason: Fever Stop: 12/19/18 14:33 Last Admin: 11/19/18 15:03 Dose: 320 mg Documented by: Acetylcysteine (Mucomyst 10%) 3 ml INH BIDR KENNEDY Stop: 12/15/18 18:59 Last Admin: 11/26/18 07:57 Dose: 3 ml Documented by: Albuterol (Duoneb) 3 ml NEB Q4R KENNEDY Stop: 12/15/18 14:59 Last Admin: 11/26/18 15:07 Dose: 3 ml Documented by: Albuterol (Ventolin 0.083% 2.5mg/3ml) 2.5 mg INH Q4H PRN PRN Reason: Wheezing/ shortness of breath Stop: 12/15/18 14:48 Baclofen (Lioresal) 20 mg PO TID KENNEDY Stop: 12/15/18 15:29 Last Admin: 11/26/18 13:32 Dose: 20 mg Documented by: Budesonide (Pulmicort Respules) 0.5 mg INH BIDR KENNEDY Stop: 12/15/18 18:59 Last Admin: 11/26/18 07:20 Dose: 0.5 mg Documented by: Clonazepam (Klonopin) 0.5 mg PO DAILY PRN PRN Reason: seizures Stop: 12/15/18 15:29 Fluoxetine HCl (Prozac) 20 mg NG DAILY [facility] Stop: 12/16/18 08:59 Last Admin: 11/26/18 08:09 Dose: 20 mg Documented by: Acetaminophen (Ofirmev) 65 mls @ 200 mls/hr IV Q8H PRN PRN Reason: fever Stop: 12/15/18 14:48 Last Infusion: 11/18/18 16:01 Dose: Infused Documented by: Piperacillin Sod/Tazobactam (Sod 3.375 gm/ Dextrose) 115 mls @ 28.75 mls/hr IV Q8H [facility]; Protocol Stop: 11/29/18 11:59 Last Infusion: 11/26/18 12:14 Dose: Infused Documented by: Miscellaneous Information (Consult) 1 ea N/A UD PRN PRN Reason: Consult Stop: 12/15/18 14:48 Nitrofurantoin (Furadantin) 50 mg PEG DAILY KENNEDY Stop: 12/16/18 08:59 Last Admin: 11/26/18 08:10 Dose: 50 mg Documented by: Cetirizine 1mg/Ml: Non-Formulary Patient's Own Med 10 ea PEG DAILY KENNEDY Stop: 12/16/18 08:59 Last Admin: 11/26/18 08:07 Dose: 10 ml Documented by: Nutritional Formula (Patient's Own Enteral Feeding) 350 ml PEG 0700,1130,1500,1900 KENNEDY Stop: 12/16/18 11:29 Last Admin: 11/26/18 12:07 Dose: 350 ml Documented by: Polyethylene Glycol (Miralax Powder Packet) 8.5 gm PEG DAILY PRN PRN Reason: bowel regiment Last Admin: 11/20/18 16:47 Dose: 8.5 gm Documented by: Potassium Chloride (Elisabeth Ciel Elix) 20 meq PEG DAILY KENNEDY Stop: 12/22/18 08:59 Last Admin: 11/26/18 08:10 Dose: 20 meq Documented by: Sterile Water (Tube Feeding Water Flush) 1 ea PO QID@07,1130,15,19 KENNEDY Stop: 12/15/18 14:59 Last Admin: 11/26/18 12:07 Dose: 1 ea Documented by: Trazodone HCl (Desyrel) 50 mg PEG HS KENNEDY Stop: 12/15/18 20:59 Last Admin: 11/25/18 20:01 Dose: 50 mg Documented by: Valproic Acid (Valproic Acid) 500 mg PO TID KENNEDY Stop: 12/16/18 13:59 Last Admin: 11/26/18 13:32 Dose: 500 mg Documented by: Zonisamide (Zonegran) 1 ea PO HS KENNEDY Stop: 12/15/18 20:59 Last Admin: 11/25/18 20:01 Dose: 1 ea Documented by: Zonisamide (Zonegran) 2 ea PO QAM KENNEDY Stop: 12/16/18 08:59 Last Admin: 11/26/18 08:12 Dose: 2 ea Documented by: PG Care Time/CCT Total # of Minutes Spent Total Time Spent with Patient: Total time spent is greater than 50% in coordination of care (as documented) at patient's floor/unit and/or counseling patient: (1) Sepsis Sepsis acute organ dysfunction status: unspecified Sepsis type: sepsis due to unspecified organism Qualified Code(s): A41.9 - Sepsis, unspecified organism (2) Pneumonia Laterality: left Lung location: lower lobe of lung Pneumonia type: due to unspecified organism Qualified Code(s): J18.1 - Lobar pneumonia, unspecified organism
--- NOTE | 2018-11-26 19:24 | Infectious Disease Progress Nt ---
Date of Service November 26, 2018 Assessment & Plan (1) Pneumonia: 23-year-old female with cystic fibrosis and chronic pseudomonal infection, appears to be slowly responding to therapy. I recommended discontinuation of tobramycin therapy as isolate is resistant. If she worsens, would consider use of Zerbaxa. Discussed with ICU staff. Will follow. (2) Pseudomonas aeruginosa colonization: Subjective Patient seen in follow-up for Pseudomonas pneumonia. Patient stable, FiO2 down to 35% which is better from 50% yesterday improving with Cough assist treatments Afebrile. Review of Systems Review of Systems: All systems reviewed & are unremarkable except as noted in HPI & below Physical Exam Constitutional: WD/WN, vitals as above comfortable; no acute distress Eyes: PERRL, conjunctivae normal, anicteric sclerae ENMT: external ear and nose normal, oropharynx normal Neck: trachea midline, no thyromegaly neck nontender Respiratory: normal percussion; no respiratory distress and does not use accessory muscles Auscultation: + rhonchi (Left-sided) Cardiovascular: RRR, no murmur, no edema Rate/Rhythm: regular rate and regular rhythm Heart Sounds: normal S1 and normal S2; no gallop, no murmur and no cardiac rub Vessels: normal peripheral pulses; no JVD Gastrointestinal (Abdomen): normal bowel sounds, soft, nontender, no hepatosplenomegaly Musculoskeletal: no cyanosis or clubbing, extremities motor strength 5/5 Head/Neck/Chest: normocephalic, head atraumatic and neck supple Spine: thoracic spine normal to inspection and lumbar spine normal to inspection; no cervical spinal tenderness Skin: no rashes, warm and dry normal turgor; no lesions Neurologic: moves all extremities and awake Psychiatric: A+Ox3, euthymic affect Lymphatic: no cervical or axillary lymphadenopathy no inguinal lymphadenopathy Results & Data Vital Signs (Past 12 Hours) Vital Signs Temp Pulse Pulse Resp BP Pulse Ox 11/26/18 18:47 100 H 40 H 89 L 11/26/18 18:00 103 H 20 106/70 90 11/26/18 17:00 99 H 35 H 91/57 L 90 11/26/18 16:00 37.0 C 95 H 39 H 101/61 91 11/26/18 15:09 99 H 32 H 91 11/26/18 15:02 101 H 27 H 90 11/26/18 15:01 100 H 34 H 92/53 L 91 11/26/18 14:00 100 H 39 H 99/64 L 91 11/26/18 13:00 100 H 42 H 101/61 92 11/26/18 12:00 36.6 C 96 H 30 H 100/65 92 11/26/18 11:28 93 H 31 H 93 11/26/18 11:06 87 35 H 109/72 95 11/26/18 10:00 98 H 35 H 96/64 L 92 11/26/18 09:00 98 H 37 H 92/56 L 90 11/26/18 08:00 36.5 C 104 H 29 H 95/60 L 90 11/26/18 07:41 105 H 34 H 96 Laboratory Results Laboratory Results - last 48 hr 11/25/18 11/25/18 04:35 04:35 WBC 8.89 RBC 3.35 L Hgb 11.2 L Hct 34.2 L MCV 102.1 H MCH 33.4 MCHC 32.7 RDW Std Deviation 47.5 H RDW Coeff of [place] 13.0 Plt Count 253 MPV 8.5 Immature Gran % (Auto) 2.9 Neut % (Auto) 69.8 Lymph % (Auto) 12.8 [place] % (Auto) 13.2 Eos % (Auto) 1.1 Baso % (Auto) 0.2 Immature Gran # (Auto) 0.26 H Neut # (Auto) 6.20 Lymph # (Auto) 1.14 L [place] # (Auto) 1.17 H Eos # (Auto) 0.10 Baso # (Auto) 0.02 Absolute Nucleated RBC 0.03 H Nucleated RBC % (auto) 0.3 Sodium 140 Potassium 4.1 Chloride 104 Carbon Dioxide 29 Anion Gap 7.0 BUN 9 Creatinine 0.51 L Est Cr Clr Drug Dosing 117.5 Est GFR ( Amer) > 150.0 Est GFR (Non-Af Amer) 136.5 BUN/Creatinine Ratio 16.9 Glucose 91 Calcium 9.1 Phosphorus 5.0 H Magnesium 2.2 Specimen Hemolysis Diagnostic Findings Microbiology 11/15/18 17:09 Bronch [place], Left Lower Lobe Acid Fast Bacilli Smear - Final 11/15/18 17:09 Bronch [place], Left Lower Lobe Acid Fast Bacilli Culture - Preliminary No Acid-Fast Bacilli Isolated - Report 1, Additional Report to Follow. 11/15/18 17:09 Bronch [place],Left Lower Lobe Fungal Smear - Final 11/15/18 17:09 Bronch [place],Left Lower Lobe Fungal Culture - Preliminary No yeast or fungus isolated - Report 1, Additional Report to Follow. 11/15/18 11:44 Blood Aerobic Blood Culture - Final No growth in Aerobic bottle after 5 days. 11/15/18 11:44 Blood Anaerobic Blood Culture - Final 11/18/18 10:11 Bronch [place],Left Lower Lobe Gram Stain - Final 11/18/18 10:11 Bronch [place],Left Lower Lobe Bronchoalveolar Lavage Culture - Final Pseudomonas aeruginosa 11/15/18 17:09 Bronch [place], Left Lower Lobe Gram Stain - Final 11/15/18 17:09 Bronch [place], Left Lower Lobe Bronchoalveolar Lavage Culture - Final Pseudomonas aeruginosa 11/15/18 11:48 Sputum,Trach Gram Stain - Final 11/15/18 11:48 Sputum,Trach Sputum Culture - Final Pseudomonas aeruginosa XR chest 1V portable CLINICAL HISTORY: 23 years-old Female presenting with f/u. TECHNIQUE: Portable upright AP view of the chest was obtained. COMPARISON: 11/25/2018. FINDINGS: Tracheostomy tube terminates in the upper thoracic trachea as on prior. Cardiomediastinal silhouette normal. Persistent left basilar opacity and left pleural effusion. No pneumothorax. Osseous structures normal. Upper abdomen normal. IMPRESSION: 1. Left basilar infiltrate and associated left pleural effusion unchanged from prior. This concerning for pneumonia with a parapneumonic effusion. PG Care Time/CCT Total # of Minutes Spent Total Time Spent with Patient: Total time spent is greater than 50% in coordination of care (as documented) at patient's floor/unit and/or counseling patient: (1) Pneumonia Laterality: left Lung location: lower lobe of lung Pneumonia type: due to unspecified organism Qualified Code(s): J18.1 - Lobar pneumonia, unspecified organism
[2018-11-26] MEDS: TRAZODONE HCL 50 MG TAB PEG SCH (20:02)
[2018-11-26] MEDS: ZONISAMIDE 100 MG PO SCH (20:04)
[2018-11-27] MEDS: PIPERACILLIN/TAZOBACTAM 3.375 GM in DEXTROSE 5% 100 ML IV SCH ×4 (00:31→23:19)
[2018-11-27] MEDS: ALBUT/IPRATROP 3MG/0.5MG NEB 3 ML VIAL NEB SCH ×6 (03:36→23:25)
[2018-11-27 04:40] LABS: Hematocrit (blood only) 33.7 % (37-47); Hemoglobin 11.3 g/dL (12.0-16.0); Mean Corpuscular Hgb Conc 33.5 g/dL (32-36); Mean Corpuscular Volume 101.5 fL (80-100); Mean Platelet Volume 8.3 fL (7.4-10.4); Platelet Count 248 K/uL (130-400); RDW Coefficient of Variation 13.7 % (11.5-14.5); RDW Standard Deviation 49.5 fL (36.4-46.3); Red Blood Count 3.32 M/uL (4.2-5.4); White Blood Count 23.22 K/uL (4.8-10.8)
[2018-11-27 05:05] LABS: Blood Urea Nitrogen 11 mg/dl (7-18); Carbon Dioxide 24 mmol/L (21-32); Chloride 103 mmol/L (98-107); Creatinine Clr Calc Pharmacy 125.1 ml/min; Est GFR (African American) > 150.0; Est GFR (Non-African American) 139.2; Glucose 95 mg/dl (70-99); Potassium 4.1 mmol/L (3.5-5.1); Sodium 137 mmol/L (136-145)
[2018-11-27 05:18] LABS: Basophils # (auto) 0.02 K/uL (0-0.2); Basophils % (auto) 0.1 %; Eosinophils # (auto) 0.01 K/uL (0-0.5); Immature Granulocytes # (auto) 0.16 K/uL (0.00-0.02); Immature Granulocytes % (auto) 0.7 %; Lymphocytes # (auto) 0.99 K/uL (1.2-3.4); Lymphocytes % (auto) 4.3 %; Monocytes # (auto) 1.44 K/uL (0.11-0.59); Monocytes % (auto) 6.2 %; Neutrophils % (auto) 88.7 %
[2018-11-27] MEDS: PATIENT'S OWN ENTERAL FEEDING PEG SCH ×4 (06:54→19:44)
[2018-11-27] MEDS: TUBE FEEDING WATER FLUSH PO SCH ×4 (07:06→19:44)
[2018-11-27] MEDS: BACLOFEN 20 MG TAB PO SCH ×3 (07:07→21:35)
[2018-11-27] MEDS: FLUOXETINE HCL 20 MG/5 ML UDP NG SCH (07:07)
[2018-11-27] MEDS: POTASSIUM CHLORIDE 20 MEQ/15 ML UDC PEG SCH (07:07)
[2018-11-27] MEDS: VALPROIC ACID SOLN 500 MG/10 ML UDC PO SCH ×3 (07:08→21:35)
[2018-11-27] MEDS: CETIRIZINE 1 MG/ML PEG SCH (07:09)
[2018-11-27] MEDS: NITROFURANTOIN 25 MG/5 ML PEG SCH (07:10)
[2018-11-27] MEDS: ACETAMINOPHEN 65 ML IV PRN (07:23)
--- NOTE | 2018-11-27 07:50 | XRay Report ---
XR chest 1V portable CLINICAL HISTORY: Decreased O2 sat COMPARISON STUDY: 11/26/2018 FINDINGS: A tracheostomy tube is again visualized. The right lung is clear. There are progressive lef t lung airspace opacities with a suspected left pleural effusion. There is an element of left lung vo lume loss.[ IMPRESSION: Progressive left lung airspace opacities with a suspected left pleural effusion. The find ings are suggestive of a worsening pneumonia with a parapneumonic effusion Electronically signed by: Galen Ham M.D. 11/27/2018 7:48 AM
[2018-11-27] MEDS: ACETYLCYSTEINE 10% INHAL SOLN **DISPENSED FROM RESP. INH SCH ×2 (07:57→19:14)
[2018-11-27] MEDS: BUDESONIDE 0.5 MG/2 ML VIAL (PULMICORT) INH SCH ×2 (07:57→19:14)
--- NOTE | 2018-11-27 08:02 | Critical Care Progress Note ---
Date of Service November 27, 2018 Assessment & Plan (1) Mucoid impaction of bronchi: Reason Critically Ill: High risk patient with tracheostomy with pneumonia Cardiovascular: Patient tachycardic and blood pressures borderline which is her baseline Close to patient's baseline from previous admissions Will monitor and give fluid as needed Respiratory: Continuing zosyn for her pneumonia plan is for fourteen day course On ventilator at night oxygen requirement increased with copious phlegm Left lower lobe appears to be consistently mucus plugged. Patient needs aggressive suctioning and CoughAssist 4 times daily. ID: Sputum culture and bronchial lavage growing pseudomonas, sensitive to zosyn On zosyn for this pneumonia. Inhaled tobramycin with the patient is at home has been discontinued as Pseudomonas has intermediate resistant to it. Discussed pneumonia vaccination status with mother, she has been adequately vaccinated. She can either get a booster later this year or anytime in the next five for her PPSV vaccination. Neuro: Patient at baseline neuro status, unable to converse Patient with history of seizure disorder as well, will continue home Medication GI: Will continue home PEG tube feeds Heme: No hematologic abnormality at this time other than elevated white count secondary to infection Elevated WBC count today. No fever. Renal: Kidney function normal at baseline Blood draws to every other day DVT PPx: IPCs F/E/N: HOme tube feeds Dipso: ICU Code Status: Conditional, see details on chart We will do bronchoscopy today for the left lower lobe collapse. (2) Acute on chronic respiratory failure with hypoxia and hypercapnia: (3) Sepsis: (4) Fever: (5) Tachycardia: (6) History of tracheostomy: (7) Status post insertion of percutaneous endoscopic gastrostomy (PEG) tube: (8) Seizure disorder: (9) DVT prophylaxis: (10) Cerebral palsy: (11) Pneumonia: Subjective Patient seen and examined at bedside. Overnight patient was found to be requiring more oxygen to maintain her oxygen saturation. And tachycardic. Chest x-ray from today shows more collapse of the left lower lobe. There is also increase in WBC count. We will continue with chest PT and bronc to see if we can clear the mucous plug. Consent for the bronchoscopy was already obtained yesterday from mother in case if he had to bron. Afebrile. Review of Systems Review of Systems: Unobtainable due to cognitive status Physical Exam Constitutional: + cachectic; no acute distress Eyes: PERRL, conjunctivae normal, anicteric sclerae Respiratory: + tachypneic Auscultation: + diminished lung sounds (More decreased on the left side), + crackles (Left lower lobe) and + rhonchi Cardiovascular: Rate/Rhythm: + tachycardic Heart Sounds: normal S1 and normal S2 Gastrointestinal (Abdomen): normal bowel sounds, soft, nontender, no hepatosplenomegaly Positive PEG tube Skin: no rashes, warm and dry normal skin elasticity Trauma: no evidence of skin trauma Neurologic: awake Functional quadriplegia Lymphatic: no cervical or axillary lymphadenopathy Results & Data Vital Signs (Past 12 Hours) Vital Signs Temp Pulse Pulse Resp BP Pulse Ox 11/27/18 06:00 119 H 48 H 105/63 83 L 11/27/18 03:36 107 H 35 H 94 11/27/18 03:00 108 H 112/60 92 11/27/18 01:00 36.9 C 119 H 41 H 98/57 L 95 11/26/18 23:18 131 H 36 H 95 11/26/18 23:00 121 H 57 H 100/63 95 11/26/18 22:00 121 H 36 H 92/65 L 86 L 11/26/18 21:00 125 H 29 H 95/58 L 95 11/26/18 20:00 111 H 34 H 98/64 L 83 L Laboratory Results 11/27/18 04:27 11/27/18 04:27 Increasing WBC PG Care Time/CCT Total # of Minutes Spent Total Time Spent with Patient: Total time spent is greater than 50% in coordination of care (as documented) at patient's floor/unit and/or counseling patient: Critical Care Time: Yes Total Critical Care Time: 35 (1) Sepsis Sepsis acute organ dysfunction status: unspecified Sepsis type: sepsis due to unspecified organism Qualified Code(s): A41.9 - Sepsis, unspecified organism (2) Fever Fever type: unspecified Qualified Code(s): R50.9 - Fever, unspecified (3) Cerebral palsy Cerebral palsy type: unspecified type Qualified Code(s): G80.9 - Cerebral palsy, unspecified (4) Pneumonia Pneumonia type: due to unspecified organism Laterality: left Lung location: lower lobe of lung Qualified Code(s): J18.1 - Lobar pneumonia, unspecified organism
[2018-11-27] MEDS ORDERED: fentaNYL citrate 100 MCG/2 ML VIAL IV ONE (08:05)
--- NOTE | 2018-11-27 10:15 | Procedure Note ---
Procedure Note Date of Service November 27, 2018 PREOPERATIVE DIAGNOSIS: Left lower lobe collapse POSTOPERATIVE DIAGNOSIS: Left lower lobe collapse secondary to mucous plugging PROCEDURE PERFORMED: Flexible fiberoptic bronchoscopy with BAL COMPLICATIONS: None. INDICATION: Left lower lobe collapse with failed chest PT and suctioning PROCEDURE: After obtaining an informed consent. The patient was connected to the vent on 100%, blood pressure, heart rate, and respiratory rate monitoring applied and monitored continuously throughout the procedure. Topical anesthesia with nebulized 1% lidocaine was achieved. Subsequent to this, the patient was premedicated with 25 Mcg of fentanyl. Upper Airway: The oropharynx and larynx were well visualized and showed [mild erythema, mild edema, otherwise negative]. Topical anesthesia with 1% lidocaine was applied alannah. The trachea appeared normal.The bronchoscope was then advanced through the alannah, which was sharp. The scope was then advanced into the right main stem and each segment, subsegement in the right upper lobe, right middle lobe and right lower lobe were visualized. There was minimal amount of secretions noted. The bronchoscope was subsequently withdrawn and advanced into the left mainstem. Again, each segment and subsegment was well visualized. No specific ma sses or other lesions were identified throughout the tracheobronchial tree on the left. There was mucous plug appreciated right and the left main bronchus which was light yellow in color. It was suctioned out. Cold saline was inserted to help clear the mucus which was mostly in the left lower segments and B6. The bronchoscope was then withdrawn to the mainstem. The area was suctioned clear. The bronchoscope was then withdrawn. The patient tolerated the procedure well without evidence of desaturation or complications. Bronchoalveolar lavage samples Gram stain and bacterial culture, AFB culture and smear, fungal culture and smear. Recommendations: Keep patient on went for 30 minutes. Get a chest x-ray. Gradually titrate the patient off to trach collar. Coding CPT Codes Sedation/Anesthesia - Sedation/Anesthesia: Mod Sedation by the same physician;Init15 Min Child Age 5 & Up ([id number]) Sedation/Anesthesia - Sedation/Anesthesia: Mod Sedation by the same physician; Ea [id number] Minutes ([id number]) Pulmonary/Thoracic - Pulmonary and Thoracic: Bronchoscopy, treat blockage ([id number])
--- NOTE | 2018-11-27 10:40 | XRay Report ---
XR chest 1V not portable CLINICAL HISTORY: s/p bronchoscopy PULMONARY CONSOLIDATION COMPARISON STUDY: 11/27/2018 FINDINGS: A tracheostomy tube is visualized. There is no pneumothorax status post bronchoscopy. There are persistent but improved left mid to lower lung zone airspace opacities. There is decreased left- sided volume loss.[ IMPRESSION: Decreased left-sided volume loss with persistent but improved left lung airspace opacitie s. No pneumothorax identified Electronically signed by: Galen Ham M.D. 11/27/2018 10:39 AM
--- NOTE | 2018-11-27 15:39 | Hospitalist Progress Note ---
Date of Service November 27, 2018 Assessment & Plan (1) Acute on chronic respiratory failure with hypoxia and hypercapnia: acute resp failure 2nd to left-sided pseudomonas pneumonia. remains on zosyn s/p bronch x 5 this admission for removal of mucous plugs. no bronch plans for the time being CXR on 11/22 with similar appearance, no change in left lower lobe opacities acute component improving. daytime vent has been weaned off; now on trach collar during the day. continue night-time vent. defer vent management to critical care staff. FiO2 stable at 40% today, appears more comfortable (2) Sepsis: 2nd to pneumonia. resolved. afebrile now for the week, WBC up to 23k, will repeat tomorrow ID, critical care, pulmonary managing antibiotics. cont broad-spectrum IV abx day #13 of zosyn. no longer needs Tobramycin inhaled (3) Pneumonia: left-sided. 2nd to pseudomonas. slowly improving. day #13 of zosyn. per ID, can stop Tobramycin nebulizers WBC up to 23k but procalcitonin 0.11, argues against active bacterial infection repeat tomorrow (4) History of tracheostomy: chronic trach with night-time vent use at home. defer vent management to pulmonary. 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 at baseline is nonverbal, does not follow commands, bed-bound. (6) Seizure disorder: had 30-second seizure 11/18/18. certainly illness, fever, low K, etc may have precipitated/lowered the seizure threshold depakote level therapeutic this admission. no seizures since. cont to monitor. (7) Thrombocytopenia: likely sepsis-associated acceptable platelet count on 11/21 (109) and finally on the rise. platelets 248k today (8) Hypokalemia: replaced/resolved 4.1 today (9) Status post insertion of percutaneous endoscopic gastrostomy (PEG) tube: tolerating tube feeds (10) DVT prophylaxis: SCDs in place Plan: remain hospitalized until next Thursday for full 14 days of antibiotics Subjective no major changes today FiO2 at 40% WBC up to 23k, will repeat in the AM Review of Systems Review of Systems: Unobtainable due to cognitive status Physical Exam Constitutional: WD/WN, vitals as above + thin and + frail appearing Eyes: PERRL, conjunctivae normal, anicteric sclerae ENMT: external ear and nose normal, oropharynx normal (dry mucous membranes) Neck: trachea midline, no thyromegaly (tracheostomy) Respiratory: Auscultation: + diminished lung sounds and + rhonchi (bilaterally); no wheezes Cardiovascular: Rate/Rhythm: regular rhythm and + tachycardic Heart Sounds: normal S1 and normal S2; no murmur Extremities: no edema Gastrointestinal (Abdomen): normal bowel sounds, soft, nontender, no hepatosplenomegaly Musculoskeletal: no cyanosis or clubbing, extremities motor strength 5/5 (contractures of all four extremities, bed bound, minimal strength) Skin: no rashes, warm and dry Psychiatric: Orientation: alert and cooperative; + not oriented to person, + not oriented to place and + not oriented to time Lymphatic: no cervical or axillary lymphadenopathy Results & Data Vital Signs (Past 12 Hours) Vital Signs Pulse Pulse Resp BP Pulse Ox 11/27/18 11:30 97 H 30 H 96/58 L 99 11/27/18 11:00 101 H 30 H 104/59 L 97 11/27/18 10:30 118 H 101/69 97 11/27/18 10:29 106 H 25 H 99 11/27/18 10:25 98 H 22 100/53 L 100 11/27/18 10:24 106 H 25 H 100 11/27/18 10:20 98 H 22 99/54 L 100 11/27/18 10:15 100 H 25 H 92/53 L 99 11/27/18 10:10 106 H 25 H 100/59 L 99 11/27/18 10:05 122 H 26 H 95/49 L 99 11/27/18 10:00 136 H 26 H 114/71 91 11/27/18 09:55 142 H 28 H 141/103 H 98 11/27/18 09:54 126 H 31 H 120/78 94 11/27/18 09:00 99 H 44 H 92/47 L 93 11/27/18 08:00 107 H 50 H 99/56 L 94 11/27/18 07:59 111 H 38 H 96 11/27/18 07:00 120 H 67 H 105/63 82 L 11/27/18 06:00 119 H 48 H 105/63 83 L Laboratory Results Laboratory Results - last 24 hr 11/27/18 11/27/18 11/27/18 04:27 04:27 08:11 WBC 23.22 H RBC 3.32 L Hgb 11.3 L Hct 33.7 L MCV 101.5 H MCH 34.0 MCHC 33.5 RDW Std Deviation 49.5 H RDW Coeff of [place] 13.7 Plt Count 248 MPV 8.3 Immature Gran % (Auto) 0.7 Neut % (Auto) 88.7 Lymph % (Auto) 4.3 [place] % (Auto) 6.2 Eos % (Auto) 0.0 Baso % (Auto) 0.1 Immature Gran # (Auto) 0.16 H Neut # (Auto) 20.60 H Lymph # (Auto) 0.99 L [place] # (Auto) 1.44 H Eos # (Auto) 0.01 Baso # (Auto) 0.02 Sodium 137 Potassium 4.1 Chloride 103 Carbon Dioxide 24 Anion Gap 10.0 BUN 11 Creatinine 0.48 L Est Cr Clr Drug Dosing 125.1 Est GFR ( Amer) > 150.0 Est GFR (Non-Af Amer) 139.2 BUN/Creatinine Ratio 24.0 H Glucose 95 Calcium 9.0 Procalcitonin 0.11 Medications Administered Current Inpatient Medications Acetaminophen (Children's Acetaminophen) 320 mg PO Q4H PRN PRN Reason: Fever Stop: 12/19/18 14:33 Last Admin: 11/19/18 15:03 Dose: 320 mg Documented by: Acetylcysteine (Mucomyst 10%) 3 ml INH BIDR KENNEDY Stop: 12/15/18 18:59 Last Admin: 11/27/18 07:57 Dose: 3 ml Documented by: Albuterol (Duoneb) 3 ml NEB Q4R KENNEDY Stop: 12/15/18 14:59 Last Admin: 11/27/18 11:00 Dose: 3 ml Documented by: Albuterol (Ventolin 0.083% 2.5mg/3ml) 2.5 mg INH Q4H PRN PRN Reason: Wheezing/ shortness of breath Stop: 12/15/18 14:48 Last Admin: 11/27/18 03:35 Dose: 2.5 mg Documented by: Baclofen (Lioresal) 20 mg PO TID KENNEDY Stop: 12/15/18 15:29 Last Admin: 11/27/18 14:59 Dose: 20 mg Documented by: Budesonide (Pulmicort Respules) 0.5 mg INH BIDR [facility] Stop: 12/15/18 18:59 Last Admin: 11/27/18 07:57 Dose: 0.5 mg Documented by: Clonazepam (Klonopin) 0.5 mg PO DAILY PRN PRN Reason: seizures Stop: 12/15/18 15:29 Fluoxetine HCl (Prozac) 20 mg NG DAILY [facility] Stop: 12/16/18 08:59 Last Admin: 11/27/18 07:07 Dose: 20 mg Documented by: Acetaminophen ([facility]) 65 mls @ 200 mls/hr IV Q8H PRN PRN Reason: fever Stop: 12/15/18 14:48 Last Infusion: 11/27/18 07:45 Dose: Infused Documented by: Piperacillin Sod/Tazobactam (Sod 3.375 gm/ Dextrose) 115 mls @ 28.75 mls/hr IV Q8H [facility]; Protocol Stop: 11/29/18 11:59 Last Infusion: 11/27/18 11:15 Dose: Infused Documented by: Miscellaneous Information (Consult) 1 ea N/A UD PRN PRN Reason: Consult Stop: 12/15/18 14:48 Nitrofurantoin (Furadantin) 50 mg PEG DAILY [facility] Stop: 12/16/18 08:59 Last Admin: 11/27/18 07:10 Dose: 50 mg Documented by: Cetirizine 1mg/Ml: Non-Formulary Patient's Own Med 10 ea PEG DAILY [facility] Stop: 12/16/18 08:59 Last Admin: 11/27/18 07:09 Dose: 10 ml Documented by: Nutritional Formula (Patient's Own Enteral Feeding) 350 ml PEG 0700,1130,1500,1900 [facility] Stop: 12/16/18 11:29 Last Admin: 11/27/18 15:00 Dose: 350 ml Documented by: Polyethylene Glycol (Miralax Powder Packet) 8.5 gm PEG DAILY PRN PRN Reason: bowel regiment Last Admin: 11/20/18 16:47 Dose: 8.5 gm Documented by: Potassium Chloride (Elisabeth Ciel Elix) 20 meq PEG DAILY [facility] Stop: 12/22/18 08:59 Last Admin: 11/27/18 07:07 Dose: 20 meq Documented by: Sterile Water (Tube Feeding Water Flush) 1 ea PO QID@07,1130,15,19 [facility] Stop: 12/15/18 14:59 Last Admin: 11/27/18 15:00 Dose: 1 ea Documented by: Trazodone HCl (Desyrel) 50 mg PEG HS [facility] Stop: 12/15/18 20:59 Last Admin: 11/26/18 20:02 Dose: 50 mg Documented by: Valproic Acid (Valproic Acid) 500 mg PO TID [facility] Stop: 12/16/18 13:59 Last Admin: 11/27/18 14:59 Dose: 500 mg Documented by: Zonisamide (Zonegran) 1 ea PO HS [facility] Stop: 12/15/18 20:59 Last Admin: 11/26/18 20:04 Dose: 1 ea Documented by: Zonisamide (Zonegran) 2 ea PO QAM [facility] Stop: 12/16/18 08:59 Last Admin: 11/27/18 07:11 Dose: 2 ea Documented by: PG Care Time/CCT Total # of Minutes Spent Total Time Spent with Patient: Total time spent is greater than 50% in coordination of care (as documented) at patient's floor/unit and/or counseling patient: (1) Sepsis Sepsis acute organ dysfunction status: unspecified Sepsis type: sepsis due to unspecified organism Qualified Code(s): A41.9 - Sepsis, unspecified organism (2) Pneumonia Laterality: left Lung location: lower lobe of lung Pneumonia type: due to unspecified organism Qualified Code(s): J18.1 - Lobar pneumonia, unspecified organism
[2018-11-27] MEDS: ZONISAMIDE 100 MG PO SCH (21:35)
[2018-11-27] MEDS: TRAZODONE HCL 50 MG TAB PEG SCH (21:35)
[2018-11-28] MEDS: ALBUT/IPRATROP 3MG/0.5MG NEB 3 ML VIAL NEB SCH ×6 (02:58→23:18)
[2018-11-28 05:17] LABS: Basophils # (auto) 0.01 K/uL (0-0.2); Basophils % (auto) 0.1 %; Eosinophils # (auto) 0.04 K/uL (0-0.5); Eosinophils % (auto) 0.4 %; Hematocrit (blood only) 30.3 % (37-47); Hemoglobin 9.9 g/dL (12.0-16.0); Immature Granulocytes # (auto) 0.05 K/uL (0.00-0.02); Immature Granulocytes % (auto) 0.5 %; Lymphocytes # (auto) 1.06 K/uL (1.2-3.4); Lymphocytes % (auto) 11.6 %; Mean Corpuscular Hemoglobin 33.2 pg (25-34); Mean Corpuscular Hgb Conc 32.7 g/dL (32-36); Mean Corpuscular Volume 101.7 fL (80-100); Mean Platelet Volume 8.2 fL (7.4-10.4); Monocytes # (auto) 0.89 K/uL (0.11-0.59); Monocytes % (auto) 9.7 %; Neutrophils # (auto) 7.12 K/uL (1.4-6.5); Neutrophils % (auto) 77.7 %; Platelet Count 192 K/uL (130-400); RDW Coefficient of Variation 13.6 % (11.5-14.5); Red Blood Count 2.98 M/uL (4.2-5.4); White Blood Count 9.17 K/uL (4.8-10.8)
[2018-11-28] MEDS: ACETYLCYSTEINE 10% INHAL SOLN **DISPENSED FROM RESP. INH SCH ×4 (07:12→19:47)
[2018-11-28] MEDS: BUDESONIDE 0.5 MG/2 ML VIAL (PULMICORT) INH SCH ×2 (07:12→19:47)
[2018-11-28] MEDS: PATIENT'S OWN ENTERAL FEEDING PEG SCH ×4 (07:54→19:34)
[2018-11-28] MEDS: TUBE FEEDING WATER FLUSH PO SCH ×4 (07:55→19:35)
[2018-11-28] MEDS: NITROFURANTOIN 25 MG/5 ML PEG SCH (07:55)
[2018-11-28] MEDS: CETIRIZINE 1 MG/ML PEG SCH (07:57)
[2018-11-28] MEDS: VALPROIC ACID SOLN 500 MG/10 ML UDC PO SCH ×3 (07:58→21:09)
[2018-11-28] MEDS: FLUOXETINE HCL 20 MG/5 ML UDP NG SCH (07:59)
[2018-11-28] MEDS: POTASSIUM CHLORIDE 20 MEQ/15 ML UDC PEG SCH (07:59)
[2018-11-28] MEDS: PIPERACILLIN/TAZOBACTAM 3.375 GM in DEXTROSE 5% 100 ML IV SCH ×2 (08:11→16:38)
[2018-11-28] MEDS: BACLOFEN 20 MG TAB PO SCH ×3 (08:12→21:08)
--- NOTE | 2018-11-28 10:09 | XRay Report ---
XR chest 1V portable HISTORY: Hypoxia. Follow-up. COMPARISON: Chest 11/27/2018. FINDINGS: No pneumothorax. The heart is normal in size. Tracheostomy tube is in good position. Progre ssive volume loss and left base airspace opacities. There appears to be left lower lobe collapse. A f ew linear densities at the right lung base suggestive of subsegmental atelectasis. IMPRESSION: Progressive volume loss and left basilar consolidation consistent with left lower lobe collapse. Electronically signed by: Edmund Dorman M.D. 11/28/2018 10:08 AM
--- NOTE | 2018-11-28 10:33 | Critical Care Progress Note ---
Date of Service November 28, 2018 Assessment & Plan (1) Mucoid impaction of bronchi: Reason Critically Ill: High risk patient with tracheostomy with pneumonia Cardiovascular: Patient tachycardic and blood pressures borderline which is her baseline Close to patient's baseline from previous admissions Will monitor and give fluid as needed Respiratory: Continuing zosyn for her pneumonia plan is for fourteen day course On ventilator at night oxygen requirement increased with copious phlegm Left lower lobe appears to be consistently mucus plugged. Patient needs aggressive suctioning and CoughAssist 4 times daily. Nebulized Mucomyst changed to 4 times daily from twice daily on 11/28/2018 Status post [facility] on 11/27/2018 ID: Sputum culture and bronchial lavage growing pseudomonas, sensitive to zosyn On zosyn for this pneumonia. Inhaled tobramycin with the patient is at home has been discontinued as Pseudomonas has intermediate resistant to it. Discussed pneumonia vaccination status with mother, she has been adequately vaccinated. She can either get a booster later this year or anytime in the next five for her PPSV vaccination. Neuro: Patient at baseline neuro status, unable to converse Patient with history of seizure disorder as well, will continue home Medi cation GI: Will continue home PEG tube feeds Heme: No hematologic abnormality at this time other than elevated white count secondary to infection WBC trending down status post [facility] on 11/27/2018. Afebrile Renal: Kidney function normal at baseline Blood draws to every other day DVT PPx: IPCs F/E/N: Home tube feeds Dipso: ICU Code Status: Conditional, see details on chart Continue with chest PT, aggressive suctioning. Try to put patient on the right side. (2) Acute on chronic respiratory failure with hypoxia and hypercapnia: (3) Sepsis: (4) Fever: (5) Tachycardia: (6) History of tracheostomy: (7) Status post insertion of percutaneous endoscopic gastrostomy (PEG) tube: (8) Seizure disorder: (9) DVT prophylaxis: (10) Cerebral palsy: (11) Pneumonia: Subjective Patient seen and examined at bedside. Looks more comfortable than yesterday. Saturating 89-90% on 35% trach collar. Patient was bronched yesterday as there was a left lower lobe collapse and patient was very tachypneic and hypoxic. After bronchoscopy and the chest x-ray improved and saturation improved. Review of Systems Review of Systems: Unobtainable due to mental health condition and Unobtainable due to cognitive status Physical Exam Constitutional: + cachectic; no acute distress Eyes: PERRL, conjunctivae normal, anicteric sclerae Respiratory: + tachypneic Auscultation: + diminished lung sounds (More decreased on the left side), + crackles (Left lower lobe) and + rhonchi Cardiovascular: Rate/Rhythm: + tachycardic Heart Sounds: normal S1 and normal S2 Gastrointestinal (Abdomen): normal bowel sounds, soft, nontender, no hepatosplenomegaly Skin: no rashes, warm and dry normal skin elasticity Trauma: no evidence of skin trauma Neurologic: awake Lymphatic: no cervical or axillary lymphadenopathy Results & Data Vital Signs (Past 12 Hours) Vital Signs Temp Pulse Pulse Resp BP Pulse Ox 11/28/18 10:00 97 H 37 H 91/42 L 95 11/28/18 09:00 98 H 32 H 84/40 L 95 11/28/18 08:00 36.5 C 108 H 28 H 93/52 L 87 L 11/28/18 07:15 102 H 30 H 88 L 11/28/18 07:00 94 H 30 H 97/57 L 90 11/28/18 06:00 104 H 31 H 97/64 L 90 11/28/18 05:00 103 H 33 H 88/51 L 94 11/28/18 04:30 121 H 29 H 93 11/28/18 04:00 112 H 104/61 95 11/28/18 03:30 102 H 94 11/28/18 03:06 96 H 23 96 11/28/18 03:00 90 94/50 L 95 11/28/18 02:30 103 H 94 11/28/18 02:00 112 H 26 H 113/69 93 11/28/18 01:30 110 H 94 11/28/18 01:00 113 H 26 H 107/59 L 95 11/28/18 00:48 102 H 17 96 11/28/18 00:30 113 H 96 11/28/18 00:00 118 H 42 H 97/49 L 94 11/27/18 23:31 102 H 28 H 96 11/27/18 23:30 98 H 91 11/27/18 23:00 36.8 C 95 H 22 97/54 L 96 Laboratory Results 11/28/18 04:30 11/27/18 04:27 Diagnostic Findings Chest x-ray: There is again partial collapse of the left lower lobe compared to the post [facility] x-ray from yesterday. PG Care Time/CCT Total # of Minutes Spent Total Time Spent with Patient: Total time spent is greater than 50% in coordination of care (as documented) at patient's floor/unit and/or counseling patient: Critical Care Time: Yes Total Critical Care Time: 35 (1) Fever Fever type: unspecified Qualified Code(s): R50.9 - Fever, unspecified (2) Cerebral palsy Cerebral palsy type: unspecified type Qualified Code(s): G80.9 - Cerebral palsy, unspecified (3) Sepsis Sepsis acute organ dysfunction status: unspecified Sepsis type: sepsis due to unspecified organism Qualified Code(s): A41.9 - Sepsis, unspecified organism (4) Pneumonia Laterality: left Lung location: lower lobe of lung Pneumonia type: due to unspecified organism Qualified Code(s): J18.1 - Lobar pneumonia, unspecified organism
--- NOTE | 2018-11-28 15:22 | Hospitalist Progress Note ---
Date of Service November 28, 2018 Assessment & Plan (1) Acute on chronic respiratory failure with hypoxia and hypercapnia: acute resp failure 2nd to left-sided pseudomonas pneumonia. treated with zosyn s/p bronch x 6 this admission for removal of mucous plugs. most recent bronchoscopy was on 11/27 for collapsed left lower lobe daytime vent has been weaned off; now on trach collar during the day. continue night-time vent. defer vent management to critical care staff. FiO2 stable at 40% today, appears more comfortable after bronchoscopy yesterday (2) Sepsis: 2nd to pneumonia. resolved. afebrile now for the week, WBC up to 23k, will repeat tomorrow ID, critical care, pulmonary managing antibiotics. cont broad-spectrum IV abx day #13 of zosyn. no longer needs Tobramycin inhaled (3) Pneumonia: left-sided. 2nd to pseudomonas. slowly improving. day #14 of zosyn. per ID, can stop Tobramycin nebulizers WBC up to 23k yesterday but down to normal today after bronchoscopy on 11/27 (4) History of tracheostomy: chronic trach with night-time vent use at home. defer vent management to pulmonary. 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 at baseline is nonverbal, does not follow commands, bed-bound. (6) Seizure disorder: had 30-second seizure 11/18/18. certainly illness, fever, low K, etc may have precipitated/lowered the seizure threshold depakote level therapeutic this admission. no seizures since. cont to monitor. (7) Thrombocytopenia: likely sepsis-associated acceptable platelet count on 11/21 (109) and finally on the rise. platelets 192k today (8) Hypokalemia: replaced/resolved 4.1 on 11/27 (9) Status post insertion of percutaneous endoscopic gastrostomy (PEG) tube: tolerating tube feeds (10) DVT prophylaxis: SCDs in place Plan: remain hospitalized until at least tomorrow however, pulmonary has discussed possible placement in LTACH patient may be too complex to care for at home at this time pulmonary anticipates the patient needing bronch once a week, maybe more will need to see how she does the next 1-2 days Subjective patient ended up needing bronchoscopy yesterday improved afterwards, less agitation, improved oxygenation WBC down to normal today today is day 14 of Zosyn CXR today shows more left lower lobe collapse discussed with DR. Yeager, he has spoken with patient's mother the patient may not be able to be managed at home, may require LTACH he foresees her needing bronchoscopy once a week needs aggressive cough assist maneuvers patient's mother open to the idea, may not be ready for discharge tomorrow as planned Review of Systems Review of Systems: Unobtainable due to cognitive status Physical Exam Constitutional: WD/WN, vitals as above + thin and + frail appearing Eyes: PERRL, conjunctivae normal, anicteric sclerae ENMT: external ear and nose normal, oropharynx normal (dry mucous membranes) Neck: trachea midline, no thyromegaly (tracheostomy) Respiratory: Auscultation: + diminished lung sounds and + rhonchi (bilaterally); no wheezes Cardiovascular: Rate/Rhythm: regular rhythm and + tachycardic Heart Sounds: normal S1 and normal S2; no murmur Extremities: no edema Gastrointestinal (Abdomen): normal bowel sounds, soft, nontender, no hepatosplenomegaly Musculoskeletal: no cyanosis or clubbing, extremities motor strength 5/5 (contractures of all four extremities, bed bound, minimal strength) Skin: no rashes, warm and dry Psychiatric: Orientation: alert and cooperative; + not oriented to person, + n ot oriented to place and + not oriented to time Lymphatic: no cervical or axillary lymphadenopathy Results & Data Vital Signs (Past 12 Hours) Vital Signs Temp Pulse Pulse Resp BP Pulse Ox 11/28/18 15:00 37.2 C 108 H 24 100/54 L 90 11/28/18 14:18 101 H 33 H 87/55 L 90 11/28/18 14:00 106 H 32 H 80/53 L 89 L 11/28/18 13:16 108 H 47 H 100/67 85 L 11/28/18 13:00 108 H 37 H 100/67 92 11/28/18 12:58 107 H 41 H 94/64 L 95 11/28/18 12:00 36.6 C 103 H 29 H 89/53 L 90 11/28/18 11:41 108 H 31 H 94/62 L 91 11/28/18 11:10 107 H 108 H 45 H 92 11/28/18 11:00 99 H 40 H 87/44 L 90 11/28/18 10:00 97 H 37 H 91/42 L 95 11/28/18 09:00 98 H 32 H 84/40 L 95 11/28/18 08:00 36.5 C 108 H 28 H 93/52 L 87 L 11/28/18 07:15 102 H 30 H 88 L 11/28/18 07:00 94 H 30 H 97/57 L 90 11/28/18 06:00 104 H 31 H 97/64 L 90 11/28/18 05:00 103 H 33 H 88/51 L 94 11/28/18 04:30 121 H 29 H 93 11/28/18 04:00 112 H 104/61 95 11/28/18 03:30 102 H 94 Laboratory Results Laboratory Results - last 24 hr 11/28/18 04:30 WBC 9.17 RBC 2.98 L Hgb 9.9 L Hct 30.3 L MCV 101.7 H MCH 33.2 MCHC 32.7 RDW Std Deviation 50.0 H RDW Coeff of Flaquito 13.6 Plt Count 192 MPV 8.2 Immature Gran % (Auto) 0.5 Neut % (Auto) 77.7 Lymph % (Auto) 11.6 Randall % (Auto) 9.7 Eos % (Auto) 0.4 Baso % (Auto) 0.1 Immature Gran # (Auto) 0.05 H Neut # (Auto) 7.12 H Lymph # (Auto) 1.06 L Randall # (Auto) 0.89 H Eos # (Auto) 0.04 Baso # (Auto) 0.01 Diagnostic Findings XR chest 1V portable HISTORY: Hypoxia. Follow-up. COMPARISON: Chest 11/27/2018. FINDINGS: No pneumothorax. The heart is normal in size. Tracheostomy tube is in good position. Progressive volume loss and left base airspace opacities. There appears to be left lower lobe collapse. A few linear densities at the right lung base suggestive of subsegmental atelectasis. IMPRESSION: Progressive volume loss and left basilar consolidation consistent with left lower lobe collapse. Medications Administered Current Inpatient Medications Acetaminophen (Children's Acetaminophen) 320 mg PO Q4H PRN PRN Reason: Fever Stop: 12/19/18 14:33 Last Admin: 11/19/18 15:03 Dose: 320 mg Documented by: Acetylcysteine (Mucomyst 10%) 3 ml INH QIDR KENNEDY Stop: 12/28/18 10:59 Last Admin: 11/28/18 15:19 Dose: 3 ml Documented by: Albuterol (Duoneb) 3 ml NEB Q4R KENNEDY Stop: 12/15/18 14:59 Last Admin: 11/28/18 15:18 Dose: 3 ml Documented by: Albuterol (Ventolin 0.083% 2.5mg/3ml) 2.5 mg INH Q4H PRN PRN Reason: Wheezing/ shortness of breath Stop: 12/15/18 14:48 Last Admin: 11/27/18 03:35 Dose: 2.5 mg Documented by: Baclofen (Lioresal) 20 mg PO TID [facility] TO [facility] Stop: 12/15/18 15:29 Last Admin: 11/28/18 12:59 Dose: 20 mg Documented by: Budesonide (Pulmicort Respules) 0.5 mg INH BIDR [facility] Stop: 12/15/18 18:59 Last Admin: 11/28/18 07:12 Dose: 0.5 mg Documented by: Clonazepam (Klonopin) 0.5 mg PO DAILY PRN PRN Reason: seizures Stop: 12/15/18 15:29 Fluoxetine HCl (Prozac) 20 mg NG DAILY [facility] Stop: 12/16/18 08:59 Last Admin: 11/28/18 07:59 Dose: 20 mg Documented by: Acetaminophen (Ofirmev) 65 mls @ 200 mls/hr IV Q8H PRN PRN Reason: fever Stop: 12/15/18 14:48 Last Infusion: 11/27/18 07:45 Dose: Infused Documented by: Piperacillin Sod/Tazobactam (Sod 3.375 gm/ Dextrose) 115 mls @ 28.75 mls/hr IV Q8H [facility]; Protocol Stop: 11/29/18 11:59 Last Infusion: 11/28/18 12:04 Dose: Infused Documented by: Miscellaneous Information (Consult) 1 ea N/A UD PRN PRN Reason: Consult Stop: 12/15/18 14:48 Nitrofurantoin (Furadantin) 50 mg PEG DAILY [facility] Stop: 12/16/18 08:59 Last Admin: 11/28/18 07:55 Dose: 50 mg Documented by: Cetirizine 1mg/Ml: Non-Formulary Patient's Own Med 10 ea PEG DAILY KENNEDY Stop: 12/16/18 08:59 Last Admin: 11/28/18 07:57 Dose: 10 ml Documented by: Nutritional Formula (Patient's Own Enteral Feeding) 350 ml PEG 0700,1130,1500,1900 KENNEDY Stop: 12/16/18 11:29 Last Admin: 11/28/18 14:25 Dose: 350 ml Documented by: Polyethylene Glycol (Miralax Powder Packet) 8.5 gm PEG DAILY PRN PRN Reason: bowel regiment Last Admin: 11/20/18 16:47 Dose: 8.5 gm Documented by: Potassium Chloride (Elisabeth Ciel Elix) 20 meq PEG DAILY KENNEDY Stop: 12/22/18 08:59 Last Admin: 11/28/18 07:59 Dose: 20 meq Documented by: Sterile Water (Tube Feeding Water Flush) 1 ea PO QID@07,1130,15,19 KENNEDY Stop: 12/15/18 14:59 Last Admin: 11/28/18 14:25 Dose: 1 ea Documented by: Trazodone HCl (Desyrel) 50 mg PEG HS KENNEDY Stop: 12/15/18 20:59 Last Admin: 11/27/18 21:35 Dose: 50 mg Documented by: Valproic Acid (Valproic Acid) 500 mg PO TID KENNEDY Stop: 12/16/18 13:59 Last Admin: 11/28/18 12:59 Dose: 500 mg Documented by: Zonisamide (Zonegran) 1 ea PO HS KENNEDY Stop: 12/15/18 20:59 Last Admin: 11/27/18 21:35 Dose: 1 ea Documented by: Zonisamide (Zonegran) 2 ea PO QAM KENNEDY Stop: 12/16/18 08:59 Last Admin: 11/28/18 08:05 Dose: 2 ea Documented by: PG Care Time/CCT Total # of Minutes Spent Total Time Spent with Patient: Total time spent is greater than 50% in coordination of care (as documented) at patient's floor/unit and/or counseling patient: (1) Sepsis Sepsis acute organ dysfunction status: unspecified Sepsis type: sepsis due to unspecified organism Qualified Code(s): A41.9 - Sepsis, unspecified organism (2) Pneumonia Laterality: left Lung location: lower lobe of lung Pneumonia type: due to unspecified organism Qualified Code(s): J18.1 - Lobar pneumonia, unspecified organism
[2018-11-28] MEDS ORDERED: fentaNYL citrate 100 MCG/2 ML VIAL IV STA (17:51)
[2018-11-28] MEDS ORDERED: fentaNYL citrate 100 MCG/2 ML VIAL ONE (17:52)
[2018-11-28] MEDS ORDERED: Nursing to Pharmacy Communication ONE (18:19)
--- NOTE | 2018-11-28 18:24 | Procedure Note ---
Procedure Note: Bronchoscopy Procedure PREOPERATIVE DIAGNOSIS: Hypoxia tachypnea with left lower lobe collapse POSTOPERATIVE DIAGNOSIS: Mucous plugging of the left main, right middle lobe PROCEDURE PERFORMED: Flexible fiberoptic bronchoscopy with [bronchoalveolar lavage, transbronchial biopsies, brushings] COMPLICATIONS: None. INDICATION: Persistent hypoxia and tachypnea despite aggressive suctioning with CoughAssist PROCEDURE: After obtaining an informed consent. The patient had appropriate oxygen, blood pressure, heart rate, and respiratory rate monitoring applied and monitored continuously throughout the procedure. S patient was connected to vent and put on 100%. Topical anesthesia with nebulized 1% lidocaine was achieved. Subsequent to this, the patient was premedicated with 25 Mcg of fentanyl and additional 75 MCG was given during the procedure Bronchoscope was inserted through patient's tracheostomy tube. Topical anesthesia with 1% lidocaine was applied to the trachea and alannah. The trachea appeared normal.The bronchoscope was then advanced through the alannah, which was sharp. The scope was then advanced into the right main stem and each segment, subsegement in the right upper lobe, right middle lobe and right lower lobe were visualized. There was yellowish-malloy sputum appreciated at the starting of right middle lobe as well as in the lower segments of the right lower lobe. There were no other findings including evidence of mass, anatomic distortions, or hemorrhage. The bronchoscope was subsequently withdrawn and advanced into the left mainstem. Left main was full of mucus which was suctioned out. Again, each segment and subsegment was well visualized. Mostly right lower lobe is where t he copious secretions were found. Patient was given saline and lavaged. No specific masses or other lesions were identified throughout the tracheobronchial tree on the left. The bronchoscope was then withdrawn to the mainstem. The area was suctioned clear. No more secretions were appreciated in both right and left and the bronchoscope was then withdrawn. The patient tolerated the procedure well without evidence of desaturation or complications. No samples were sent for labs as patient was brought yesterday and cultures were sent. Recommendations: Continue with CoughAssist, chest PT and Mucomyst.
--- NOTE | 2018-11-28 18:49 | XRay Report ---
XR chest 1V portable HISTORY: Status post bronchoscopy. COMPARISON: Chest 11/28/2018. FINDINGS: Tracheostomy tube is in good position. Improved aeration within the left lung base suggesti ve of resolving left lower lobe collapse. There are hazy bibasilar densities no pneumothorax. No pleu ral effusions. The heart is normal in size. IMPRESSION: 1. Improved aeration within the left lung base suggestive of resolving left lower lobe collapse. 2. Hazy bibasilar densities persist and may represent atelectasis or pneumonia. Electronically signed by: Edmund Dorman M.D. 11/28/2018 6:47 PM
[2018-11-28] MEDS ORDERED: SODIUM CHLORIDE 0.9% 500 ML IV ONE (19:15)
[2018-11-28] MEDS: TRAZODONE HCL 50 MG TAB PEG SCH (21:08)
[2018-11-28] MEDS: ZONISAMIDE 100 MG PO SCH (21:09)
[2018-11-29] MEDS: PIPERACILLIN/TAZOBACTAM 3.375 GM in DEXTROSE 5% 100 ML IV SCH ×4 (00:10→23:30)
[2018-11-29] MEDS: ALBUT/IPRATROP 3MG/0.5MG NEB 3 ML VIAL NEB SCH ×6 (03:17→22:59)
[2018-11-29 04:54] LABS: Basophils # (auto) 0.01 K/uL (0-0.2); Basophils % (auto) 0.1 %; Eosinophils % (auto) 1.2 %; Hematocrit (blood only) 28.7 % (37-47); Hemoglobin 9.3 g/dL (12.0-16.0); Immature Granulocytes # (auto) 0.03 K/uL (0.00-0.02); Immature Granulocytes % (auto) 0.4 %; Lymphocytes # (auto) 1.36 K/uL (1.2-3.4); Lymphocytes % (auto) 16.4 %; Mean Corpuscular Hemoglobin 33.2 pg (25-34); Mean Corpuscular Hgb Conc 32.4 g/dL (32-36); Mean Corpuscular Volume 102.5 fL (80-100); Mean Platelet Volume 8.5 fL (7.4-10.4); Monocytes # (auto) 0.52 K/uL (0.11-0.59); Monocytes % (auto) 6.3 %; Neutrophils # (auto) 6.25 K/uL (1.4-6.5); Neutrophils % (auto) 75.6 %; Platelet Count 157 K/uL (130-400); RDW Coefficient of Variation 13.5 % (11.5-14.5); RDW Standard Deviation 50.3 fL (36.4-46.3); White Blood Count 8.27 K/uL (4.8-10.8)
[2018-11-29 05:30] LABS: Blood Urea Nitrogen 8 mg/dl (7-18); Calcium 8.7 mg/dl (8.5-10.1); Carbon Dioxide 29 mmol/L (21-32); Chloride 107 mmol/L (98-107); Creatinine Clr Calc Pharmacy 137.7 ml/min; Est GFR (African American) > 150.0; Est GFR (Non-African American) 143.3; Glucose 95 mg/dl (70-99); Potassium 3.4 mmol/L (3.5-5.1); Sodium 143 mmol/L (136-145)
[2018-11-29] MEDS: TUBE FEEDING WATER FLUSH PO SCH ×4 (06:02→19:13)
[2018-11-29] MEDS: PATIENT'S OWN ENTERAL FEEDING PEG SCH ×4 (06:02→19:13)
[2018-11-29] MEDS: BUDESONIDE 0.5 MG/2 ML VIAL (PULMICORT) INH SCH ×2 (06:57→19:29)
[2018-11-29] MEDS: ACETYLCYSTEINE 10% INHAL SOLN **DISPENSED FROM RESP. INH SCH ×4 (06:58→19:29)
--- NOTE | 2018-11-29 07:00 | XRay Report ---
XR chest 1V portable HISTORY: 23 years-old Female f/u follow-up study in a patient with shortness of breath COMPARISON: Chest radiograph 11/28/2018 TECHNIQUE: Portable AP view of the chest FINDINGS: Tracheostomy cannula overlies the midline superior to the clavicular heads, unchanged. Cardiac silhou ette appears normal in size. No pneumothorax. Right lung is generally clear there are progressively w orsened airspace opacities of the left midlung and left lung base with possible trace left pleural ef fusion. No overt pulmonary edema. Bones appear grossly intact. IMPRESSION: Progressively worsened left midlung and left lung base opacities suggests atelectasis or pneumonia. Continued follow-up recommended. The above report was generated using voice recognition software. It may contain grammatical, syntax o r spelling errors. Electronically signed by: Finn Townsend M.D. 11/29/2018 6:59 AM
--- NOTE | 2018-11-29 07:53 | Critical Care Progress Note ---
Date of Service November 29, 2018 Assessment & Plan (1) Mucoid impaction of bronchi: Reason Critically Ill: High risk patient with tracheostomy with pneumonia NEURO H/O CP. Patient at baseline neuro status, unable to converse Patient with history of seizure disorder as well, will continue home medications Zonisamide, Depakote. Depakote level therapeutic this admission CV Patient tachycardic and blood pressures borderline Close to patient's baseline from previous admissions Will monitor and give fluid as needed PULM Continuing Zosyn for her pneumonia. Completed 14 day course, continuing for additional 7 days Will cont trend ESR, CRP, Procal every other day during this interval and wait until procal at least neg On ventilator at night oxygen requirement increased with copious phlegm Bronch today- LLL appears to be consistently mucus plugged, seen on CXR Patient needs aggressive suctioning and CoughAssist QID Nebulized Mucomyst QID daily Abd/GI Will continue home PEG tube feeds ID Sputum culture and bronchial lavage growing pseudomonas, sensitive to zosyn On zosyn for this pneumonia. Per ID recs, dc'd inhaled tobramycin 2/2 resistance Discussed pneumonia vaccination status with mother, she has been adequately vaccinated. She can either get a booster later this year or anytime in the next five for her PPSV vaccination. /RENAL Kidney function normal at baseline Heme Stable H/H, at baseline. No hematologic abnormality Blood draws to every other day as above LINES: PIV x1 DVT Prophylaxis: SCDs Conditional Code: Mech Vent only DISPO: ICU. Discussion with mother to be had about goals, treatment course, and fpc prognosis. Appreciate Pal Care assistance. Supervising Physician Co-Signing Physician Notes Dr. Smyth was resident physician during care of patient. I separately evaluated patient for canales portions of the history and the exam. I was present during the critical portion of medical decision making, and I discussed the case with the resident. I generally agree with the findings and plan. Pro-Deonte mildly elevated, unclear significance, will continue antibiotics and check serial procalcitonin, ESR, CRP to hopefully elucidate adequate antibiotic course. Plan for possible bronchoscopy today for recurrent mucoid impaction in the left lower lobe which still persists on chest x-ray. Will discuss with mother treatment course moving forward. Subjective 23 yo F found in bed this AM in NAD. No reported overnight events. Discussion with mother today about goals, this conversation has been opened by other providers during this hospital stay. Mom still considering options, will have discussion with CCU staff today afternoon. No other acute concerns or complaints. Review of Systems Review of Systems: All systems reviewed & are unremarkable except as noted in HPI & below Physical Exam Constitutional: + cachectic Eyes: PERRL, conjunctivae normal, anicteric sclerae ENMT: external ear and nose normal, oropharynx normal Respiratory: + tachypneic Decreased lung sounds L>R Crackles LLL Rhonchi Cardiovascular: RRR, no murmur, no edema Gastrointestinal (Abdomen): normal bowel sounds, soft, nontender, no hepatosplenomegaly Skin: no rashes, warm and dry Psychiatric: CP Results & Data Vital Signs (Past 12 Hours) Vital Signs Pulse Pulse Pulse Resp BP Pulse Ox 11/29/18 07:48 98 H 33 H 92 11/29/18 06:00 94 H 27 H 97/67 L 97 11/29/18 05:00 85 16 78/49 L 97 11/29/18 03:17 83 14 97 11/29/18 03:00 83 39 H 91/59 L 96 11/29/18 02:00 77 21 91/62 L 97 11/29/18 01:31 87 14 96 11/29/18 01:00 89 93/55 L 97 11/29/18 00:45 91 H 90/54 L 97 11/29/18 00:30 92 H 91/50 L 97 11/29/18 00:15 93 H 78/43 L 96 11/29/18 00:00 91 H 95/55 L 96 11/28/18 23:45 92 H 91/53 L 97 11/28/18 23:30 95 H 76/42 L 94 11/28/18 23:18 85 18 94 11/28/18 23:15 87 85/46 L 94 11/28/18 23:00 87 30 H 89/52 L 92 11/28/18 22:22 84 15 95 11/28/18 22:00 89 18 105/74 93 11/28/18 20:00 105 H 32 H 94/58 L 93 Laboratory Results Laboratory Results - last 24 hr 11/29/18 11/29/18 04:13 04:13 WBC 8.27 RBC 2.80 L Hgb 9.3 L Hct 28.7 L MCV 102.5 H MCH 33.2 MCHC 32.4 RDW Std Deviation 50.3 H RDW Coeff of Flaquito 13.5 Plt Count 157 MPV 8.5 Immature Gran % (Auto) 0.4 Neut % (Auto) 75.6 Lymph % (Auto) 16.4 [place] % (Auto) 6.3 Eos % (Auto) 1.2 Baso % (Auto) 0.1 Immature Gran # (Auto) 0.03 H Neut # (Auto) 6.25 Lymph # (Auto) 1.36 [place] # (Auto) 0.52 Eos # (Auto) 0.10 Baso # (Auto) 0.01 Sodium 143 Potassium 3.4 L D Chloride 107 Carbon Dioxide 29 Anion Gap 7.0 BUN 8 Creatinine 0.44 L Est Cr Clr Drug Dosing 137.7 Est GFR ( Amer) > 150.0 Est GFR (Non-Af Amer) 143.3 BUN/Creatinine Ratio 19.0 Glucose 95 Calcium 8.7 Medications Administered Current Inpatient Medications Acetaminophen (Children's Acetaminophen) 320 mg PO Q4H PRN PRN Reason: Fever Stop: 12/19/18 14:33 Last Admin: 11/19/18 15:03 Dose: 320 mg Documented by: Acetylcysteine (Mucomyst 10%) 3 ml INH QIDR KENNEDY Stop: 12/28/18 10:59 Last Admin: 11/29/18 11:55 Dose: 3 ml Documented by: Albuterol (Duoneb) 3 ml NEB Q4R KENNEDY Stop: 12/15/18 14:59 Last Admin: 11/29/18 11:55 Dose: 3 ml Documented by: Albuterol (Ventolin 0.083% 2.5mg/3ml) 2.5 mg INH Q4H PRN PRN Reason: Wheezing/ shortness of breath Stop: 12/15/18 14:48 Last Admin: 11/27/18 03:35 Dose: 2.5 mg Documented by: Baclofen (Lioresal) 20 mg PO TID KENNEDY Stop: 12/15/18 15:29 Last Admin: 11/29/18 15:11 Dose: 20 mg Documented by: Budesonide (Pulmicort Respules) 0.5 mg INH BIDR KENNEDY Stop: 12/15/18 18:59 Last Admin: 11/29/18 06:57 Dose: 0.5 mg Documented by: Clonazepam (Klonopin) 0.5 mg PO DAILY PRN PRN Reason: seizures Stop: 12/15/18 15:29 Fentanyl Citrate (Fentanyl Citrate) 100 mcg IV .ONCE PRN PRN Reason: at bedside for procedure Stop: 11/29/18 16:00 Last Admin: 11/29/18 14:55 Dose: 100 mcg Documented by: Fluoxetine HCl (Prozac) 20 mg NG DAILY KENNEDY Stop: 12/16/18 08:59 Last Admin: 11/29/18 11:37 Dose: 20 mg Documented by: Acetaminophen ([facility]) 65 mls @ 200 mls/hr IV Q8H PRN PRN Reason: fever Stop: 12/15/18 14:48 Last Infusion: 11/27/18 07:45 Dose: Infused Documented by: Piperacillin Sod/Tazobactam (Sod 3.375 gm/ Dextrose) 115 mls @ 28.75 mls/hr IV Q8H [facility]; Protocol Stop: 12/06/18 15:59 Last Infusion: 11/29/18 10:07 Dose: Infused Documented by: Midazolam HCl (Versed) 2 mg IV .ONCE PRN PRN Reason: at bedside for procedure Stop: 11/29/18 16:00 Last Admin: 11/29/18 14:55 Dose: 1 mg Documented by: Miscellaneous Information (Consult) 1 ea N/A UD PRN PRN Reason: Consult Stop: 12/15/18 14:48 Nitrofurantoin (Furadantin) 50 mg PEG DAILY [facility] Stop: 12/16/18 08:59 Last Admin: 11/29/18 11:35 Dose: 50 mg Documented by: Cetirizine 1mg/Ml: Non-Formulary Patient's Own Med 10 ea PEG DAILY KENNEDY Stop: 12/16/18 08:59 Last Admin: 11/29/18 11:36 Dose: 10 ml Documented by: Nutritional Formula (Patient's Own Enteral Feeding) 350 ml PEG 0700,1130,1500,1900 KENNEDY Stop: 12/16/18 11:29 Last Admin: 11/29/18 15:10 Dose: Not Given Documented by: Polyethylene Glycol (Miralax Powder Packet) 8.5 gm PEG DAILY PRN PRN Reason: bowel regiment Last Admin: 11/20/18 16:47 Dose: 8.5 gm Documented by: Potassium Chloride (Elisabeth Ciel Elix) 20 meq PEG DAILY KENNEDY Stop: 12/22/18 08:59 Last Admin: 11/29/18 11:35 Dose: 20 meq Documented by: Sterile Water (Tube Feeding Water Flush) 1 ea PO QID@07,0,, KENNEDY Stop: 12/15/18 14:59 Last Admin: 11/29/18 15:10 Dose: Not Given Documented by: Trazodone HCl (Desyrel) 50 mg PEG HS KENNEDY Stop: 12/15/18 20:59 Last Admin: 11/28/18 21:08 Dose: 50 mg Documented by: Valproic Acid (Valproic Acid) 500 mg PO TID KENNEDY Stop: 12/16/18 13:59 Last Admin: 11/29/18 15:11 Dose: 500 mg Documented by: Zonisamide (Zonegran) 1 ea PO HS KENNEDY Stop: 12/15/18 20:59 Last Admin: 11/28/18 21:09 Dose: 1 ea Documented by: Zonisamide (Zonegran) 2 ea PO QAM KENNEDY Stop: 12/16/18 08:59 Last Admin: 11/29/18 11:37 Dose: 2 ea Documented by: PG Care Time/CCT Total # of Minutes Spent Total Time Spent with Patient: Total time spent is greater than 50% in coordination of care (as documented) at patient's floor/unit and/or counseling patient: Critical Care Time: Yes Resident Activity Tracking Resident Involvement: Resident Care Provided Care Provided: Adult Hospital Medicine
[2018-11-29] MEDS ORDERED: POTASSIUM CHLORIDE 20 MEQ/15 ML UDC PEG SCH (11:00)
--- NOTE | 2018-11-29 11:00 | Hospitalist Progress Note ---
Date of Service November 29, 2018 Assessment & Plan (1) Acute on chronic respiratory failure with hypoxia and hypercapnia: acute resp failure 2nd to left-sided pseudomonas pneumonia. treated with zosyn, da #15 of such. s/p bronch x 7 this admission for removal of mucous plugs. most recent bronchoscopy was on 11/28. remains on trach collar during the day. continue night-time vent. defer night-time vent management to critical care staff. (2) Sepsis: 2nd to pneumonia. resolved. (3) Pneumonia: left-sided. 2nd to pseudomonas. day #15 of zosyn. per ID, can stop Tobramycin nebs as the pathogen is not fully sensitive to such. 3-week course of zosyn? defer to ID and critical care. (4) History of tracheostomy: chronic trach with night-time vent use at home. 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 at baseline is nonverbal, does not follow commands, is bed-bound. Trach/PEG in place. (6) Seizure disorder: had 30-second seizure 11/18/18. depakote level therapeutic shortly after that seizure. no seizures since. monitor. (7) Thrombocytopenia: likely sepsis-associated. resolved. (8) Status post insertion of percutaneous endoscopic gastrostomy (PEG) tube: tolerating tube feeds tube feeds are at goal (9) DVT prophylaxis: SCDs in place disposition? LTACH? home with HH as previous? Dr Tariq to meet with pt's mother today Subjective events of last 24 hours noted. underwent bronch yesterday with copious left-sided mucous removed. during my assessment Selvin seemed mildly agitated. spoke with Dr Tariq and case management during my rounds. disposition and plan of care discussed. Review of Systems Review of Systems: Unobtainable due to cognitive status Physical Exam Constitutional: + thin, + language barrier (nonverbal ) and + frail appearing ENMT: Mouth: + oropharynx abnormality (cleft palate; no thrush present); oral mucous membranes not dry trach in place Respiratory: no respiratory distress and not tachypneic Auscultation: + diminished lung sounds (left base only); no crackles and no wheezes Cardiovascular: Rate/Rhythm: regular rhythm and + tachycardic Heart Sounds: normal S1 and normal S2; no murmur Vessels: posterior tibial pulses present and dorsalis pedis pulses present; no JVD Extremities: no edema Gastrointestinal (Abdomen): normal bowel sounds, soft, nontender, no hepatosplenomegaly PEG tube in place Skin: no rashes, warm and dry Results & Data Vital Signs (Past 12 Hours) Vital Signs Temp Pulse Pulse Pulse Resp BP Pulse Ox 11/29/18 08:00 100 H 11/29/18 07:48 98 H 33 H 92 11/29/18 07:45 36.8 C 96 H 96/68 L 99 11/29/18 07:30 96 H 91/62 L 96 11/29/18 07:15 96 H 87/53 L 92 11/29/18 07:00 100 H 95 11/29/18 06:00 94 H 27 H 97/67 L 97 11/29/18 05:00 85 16 78/49 L 97 11/29/18 03:17 83 14 97 11/29/18 03:00 83 39 H 91/59 L 96 11/29/18 02:00 77 21 91/62 L 97 11/29/18 01:31 87 14 96 11/29/18 01:00 89 93/55 L 97 11/29/18 00:45 91 H 90/54 L 97 11/29/18 00:30 92 H 91/50 L 97 11/29/18 00:15 93 H 78/43 L 96 11/29/18 00:00 91 H 95/55 L 96 11/28/18 23:45 92 H 91/53 L 97 11/28/18 23:30 95 H 76/42 L 94 11/28/18 23:18 85 18 94 11/28/18 23:15 87 85/46 L 94 11/28/18 23:00 87 30 H 89/52 L 92 Laboratory Results Laboratory Results - last 24 hr 11/29/18 11/29/18 04:13 04:13 WBC 8.27 RBC 2.80 L Hgb 9.3 L Hct 28.7 L MCV 102.5 H MCH 33.2 MCHC 32.4 RDW Std Deviation 50.3 H RDW Coeff of [place] 13.5 Plt Count 157 MPV 8.5 Immature Gran % (Auto) 0.4 Neut % (Auto) 75.6 Lymph % (Auto) 16.4 [place] % (Auto) 6.3 Eos % (Auto) 1.2 Baso % (Auto) 0.1 Immature Gran # (Auto) 0.03 H Neut # (Auto) 6.25 Lymph # (Auto) 1.36 [place] # (Auto) 0.52 Eos # (Auto) 0.10 Baso # (Auto) 0.01 Sodium 143 Potassium 3.4 L D Chloride 107 Carbon Dioxide 29 Anion Gap 7.0 BUN 8 Creatinine 0.44 L Est Cr Clr Drug Dosing 137.7 Est GFR ( Amer) > 150.0 Est GFR (Non-Af Amer) 143.3 BUN/Creatinine Ratio 19.0 Glucose 95 Calcium 8.7 PG Care Time/CCT Total # of Minutes Spent Total Time Spent with Patient: Total time spent is greater than 50% in coordination of care (as documented) at patient's floor/unit and/or counseling patient: (1) Sepsis Sepsis acute organ dysfunction status: unspecified Sepsis type: sepsis due to unspecified organism Qualified Code(s): A41.9 - Sepsis, unspecified organism (2) Pneumonia Laterality: left Lung location: lower lobe of lung Pneumonia type: due to unspecified organism Qualified Code(s): J18.1 - Lobar pneumonia, unspecified organism
[2018-11-29] MEDS: BACLOFEN 20 MG TAB PO SCH ×4 (11:31→21:23)
[2018-11-29] MEDS: VALPROIC ACID SOLN 500 MG/10 ML UDC PO SCH ×4 (11:31→21:22)
[2018-11-29] MEDS ORDERED: fentaNYL citrate 100 MCG/2 ML VIAL IV PRN (11:34)
[2018-11-29] MEDS ORDERED: MIDAZOLAM HCL 1 MG/ML 2ML VIAL IV PRN (11:34)
[2018-11-29] MEDS: NITROFURANTOIN 25 MG/5 ML PEG SCH (11:35)
[2018-11-29] MEDS: POTASSIUM CHLORIDE 20 MEQ/15 ML UDC PEG SCH (11:35)
[2018-11-29] MEDS: CETIRIZINE 1 MG/ML PEG SCH (11:36)
[2018-11-29] MEDS: FLUOXETINE HCL 20 MG/5 ML UDP NG SCH (11:37)
--- NOTE | 2018-11-29 16:20 | Palliative Care Consultation ---
Date of Consultation November 29, 2018 Assessment & Plan (1) Palliative care encounter: Patient is a 23-year-old female with past medical history significant for CP/cerebral dysgenesis. Patient has a twin with similar diagnosis and medical issues. Patient has chronic Pseudomonas colonization-on inhaled KANDY at home. Patient is status post trach and G-tube. She is on a home trilogy nightly with as needed O2. Patient with seizure disorder-on Zonegran and valproate . Patient has multiple prolonged hospitalizations-each requiring ICU care. Patient went approximately 1 year without requiring hospitalization which mother attributes to being on 3 time a week to KANDY. Patient was hospitalized earlier this year from 07/20-08/11, she had an ER visit on 09/16 and had been doing well until 11/15 when she presented with fever, hypoxia, and shortness of breath. Patient has persistent left lower lobe iivyfqqbu-ctix-[id number] bronchomalacia contributing along with chronic Pseudomonas. Patient has undergone multiple bronchoscopies for mucous plugging on this admission-plan for bronc this after noon. Patient on aggressive pulmonary toilet including acetylcysteine, CoughAssist vest, budesonide and as needed albuterol. Met with patient's mother, Dr. Palmer, and case management-discussed patient's overall decline and continued difficulty mobilizing secretions despite aggressive pulmonary toilet. Mother is hopeful that patient can improve enough to return home. Mother does acknowledge that her care is becoming increasing difficult and is torn between continuing to have her at home versus placement at an LTAC. Patient's mother is realistic regarding patient's decline and understands that both she and her sister are declining to a point where there will be little more to offer. Mother's goal is for patient's comfort. Will continue to follow closely and provide support for mother with medical decision making. If we are able to get Selvin to the point where she could return home we will plan to discuss with mother whether returning to the hospital when she deteriorates again versus hospice care. -Goals of care-patient is currently a conditional code, okay for ventilation, no CPR. Mother's goal is to have Selvin improve enough to return home-will plan to discuss further hospitalizations on subsequent visits -Acute on chronic respiratory failure-patient on trilogy nightly with as needed O2, currently on trach collar with O2 at 8 L. Patient continues to have mucus p lugging as well as chronic Pseudomonas -CP-since , continued disease progression -Status post trach -Status post G-tube -Seizure disorder-on Zonegran and valproate Will continue to follow and provide support with medical decision making. We will plan to further discuss goals of care depending on how Selvin progresses. Mother continuing to await impact of Selvin's care at home on the rest of her family including her twin sister. Will continue to have ongoing discussions with mother and assist with medical decision making. (2) Acute on chronic respiratory failure with hypoxia and hypercapnia: (3) Mucoid impaction of bronchi: (4) History of cerebral palsy: (5) History of tracheostomy: (6) Status post insertion of percutaneous endoscopic gastrostomy (PEG) tube: (7) Seizure disorder: (8) Bronchopneumonia due to Pseudomonas species: History of Present Illness Reason for Consultation: Assist mother with medical decision making, provide support Requesting Physician: Sebas Smyth DO Attending Physician: Jatinder Garcia History of Present Illness Patient is a 23-year-old female with past medical history significant for CP/cerebral dysgenesis. Patient has a twin with similar diagnosis and medical issues. Patient has chronic Pseudomonas colonization-on inhaled KANDY at home. Patient is status post trach and G-tube. She is on a home trilogy nightly with as needed O2. Patient with seizure disorder-on Zonegran and valproate . Patient has multiple prolonged hospitalizations-each requiring ICU care. Patient went approximately 1 year without requiring hospitalization which mother attributes to being on 3 time a week to KANDY. Patient was hospitalized earlier this year from 07/20-08/11, she had an ER visit on 09/16 and had been doing well until 11/15 when she presented with fever, hypoxia, and shortness of breath. Patient has persistent left lower lobe qswegunbo-gxpd-zainu bronchomalacia contributing along with chronic Pseudomonas. Patient has undergone multiple bronchoscopies for mucous plugging on this admission-plan for bronc this afternoon. Patient on aggressive pulmonary toilet including acetylcysteine, CoughAssist vest, budesonide and as needed albuterol. Met with patient's mother, Dr. Palmer, and case management-discussed patient's overall decline and continued difficulty mobilizing secretions despite aggressive pulmonary toilet. Mother is hopeful that patient can improve enough to return home. Mother does acknowledge that her care is becoming increasing difficult and is torn between continuing to have her at home versus placement at an LTAC. Patient's mother is realistic regarding patient's decline and understands that both she and her sister are declining to a point where there will be little more to offer. Mother's goal is for patient's comfort. Will continue to follow closely and provide support for mother with medical decision making. If we are able to get Selvin to the point where she could return home we will plan to discuss with mother whether returning to the hospital when she deteriorates again versus hospice care. Provided active listening as mother related recent events with both Selvin and her sister-when Selvin has trouble while in the hospital, her sister also has more difficulties at home. We will plan to continue current treatment and monitor patient's progress. Patient is currently a conditional code, positive respiratory support but no CPR. Allergies Allergy/AdvReac Type Severity Reaction Status Date / Time No Known Allergies Allergy Unverified 11/15/18 11:02 Home Medications Home Medications Medication Instructions Recorded Confirmed Type acetylcysteine 3 ml INHALATION BID 07/20/18 11/15/18 History albuterol sulfate 2.5 mg INHALATION Q4H PRN 07/20/18 11/15/18 History baclofen 20 mg FEEDING TUBE TID 07/20/18 11/15/18 History budesonide 2 ml INHALATION BID 07/20/18 11/15/18 History cetirizine 10 mg FEEDING TUBE DAILY 07/20/18 11/15/18 History clonazepam 0.5 mg FEEDING TUBE DIRECTED 07/20/18 11/15/18 History polyethylene glycol 3350 8.5 g FEEDING TUBE DAILY PRN 07/20/18 11/15/18 History tobramycin 4 cap INHALATION Q12H 07/20/18 11/15/18 History valproic acid (as sodium salt) 550 mg FEEDING TUBE TID 07/20/18 11/15/18 History zonisamide 100 mg FEEDING TUBE HS 07/20/18 11/15/18 History zonisamide 200 mg FEEDING TUBE QAM 07/20/18 11/15/18 History Boost 1.5 ea PO QID@07,1130,15,19 07/28/18 11/15/18 History water 120 ea PO QID@07,1130,15,19 /05/19 09/23/19 History trazodone 50 mg FEEDING TUBE HS 09/16/18 11/15/18 History nitrofurantoin 25 mg/5 mL oral 50 mg FEEDING TUBE DAILY #230 ml 11/08/18 11/15/18 Rx suspension fluoxetine 20 mg FEEDING TUBE DAILY 11/15/18 11/15/18 History Patient History Medical History Hypoxia (Acute) PNA (pneumonia) (Acute) Pleural effusion (Acute) Cerebral palsy Seizure disorder Surgical History S/P percutaneous endoscopic gastrostomy (PEG) tube placement Status post tracheostomy Family History Other Family history non-contributory Social History Preferred Language: Ecuad[place] Communication Ability: Impaired Beliefs That Will Affect Care: None Current Living Situation: Family Current Living Situation Comment: parent Feels Safe at Home: Yes Smoking Status: Never smoker Second Hand Exposure: No ; Hx Alcohol Use: No Hx Substance Use: No Review of Systems Review of Systems: Unobtainable due to cognitive status Physical Exam Physical Exam: PE: Patient minimally responsive to voice or touch, appears to be awake HEENT: Trach with trach collar in place with O2 at 8 L CV: Regular rate on exam Respiratory: Diminished, coarse breath sounds bilaterally Abdomen: Soft, no grimace on palpation Neuro: Awake, nonverbal Results & Data Vital Signs (Past 12 Hours) Vital Signs Temp Pulse Pulse Resp BP Pulse Ox 11/29/18 15:04 85 86/44 L 96 11/29/18 15:00 106 H 113/83 92 11/29/18 14:58 117 H 111/83 91 11/29/18 14:55 82 98 11/29/18 12:37 97 H 32 H 94 11/29/18 08:00 100 H 11/29/18 07:48 98 H 33 H 92 11/29/18 07:45 98.2 F 96 H 96/68 L 99 11/29/18 07:30 96 H 91/62 L 96 11/29/18 07:15 96 H 87/53 L 92 11/29/18 07:00 100 H 95 11/29/18 06:00 94 H 27 H 97/67 L 97 11/29/18 05:00 85 16 78/49 L 97 PG Care Time/CCT Total # of Minutes Spent Total Time Spent with Patient: Total time spent is greater than 50% in coordination of care (as documented) at patient's floor/unit and/or counseling patient: Prolonged Care Time Total Prolonged Care Time: 30 Time Spent Attending Total time spent 100 minutes with greater than 50% of the time in the ICU meeting with ICU attending, case management and mother regarding patient's current treatment, progression as well as goals of care. Critical Care Time Prolonged Care Time Total Prolonged Care Time: 30 100
--- NOTE | 2018-11-29 19:39 | Infectious Disease Progress Nt ---
Date of Service November 29, 2018 Assessment & Plan (1) Pneumonia: 23-year-old female with cystic fibrosis and chronic pseudomonal infection, some response to antibiotics,, but still with significant plugging requiring frequent bronchoscopies. Continue present antibiotics, await further culture results. Will follow. (2) Pseudomonas aeruginosa colonization: Subjective Recent events reviewed. Patient with persistent mucus plugging requiring repeat bronchoscopy. Otherwise appears about the same. No fever. Palliative care consultation noted. Review of Systems Review of Systems: Unobtainable due to cognitive status Physical Exam Constitutional: WD/WN, vitals as above comfortable; no acute distress Eyes: PERRL, conjunctivae normal, anicteric sclerae ENMT: external ear and nose normal, oropharynx normal Neck: trachea midline, no thyromegaly neck nontender Respiratory: normal percussion; no respiratory distress and does not use ac cessory muscles Auscultation: + rhonchi (Left-sided) Cardiovascular: RRR, no murmur, no edema Rate/Rhythm: regular rate and regular rhythm Heart Sounds: normal S1 and normal S2; no gallop, no murmur and no cardiac rub Vessels: normal peripheral pulses; no JVD Gastrointestinal (Abdomen): normal bowel sounds, soft, nontender, no hepatosplenomegaly Musculoskeletal: no cyanosis or clubbing, extremities motor strength 5/5 Head/Neck/Chest: normocephalic, head atraumatic and neck supple Spine: thoracic spine normal to inspection and lumbar spine normal to inspection; no cervical spinal tenderness Skin: no rashes, warm and dry normal turgor; no lesions Neurologic: moves all extremities and awake Psychiatric: A+Ox3, euthymic affect Lymphatic: no cervical or axillary lymphadenopathy no inguinal ly mphadenopathy Results & Data Vital Signs (Past 12 Hours) Vital Signs Temp Pulse Pulse Resp BP Pulse Ox 11/29/18 19:00 88 21 93/61 L 97 11/29/18 17:30 81 87/48 L 95 11/29/18 17:00 88 93/62 L 98 11/29/18 16:30 99 H 83/53 L 95 11/29/18 16:13 100 H 30 H 97 11/29/18 16:00 103 H 97 11/29/18 15:30 88 96/61 L 90 11/29/18 15:28 90 106/69 91 11/29/18 15:26 84 100/65 91 11/29/18 15:24 92 H 83/68 L 92 11/29/18 15:22 96 H 110/72 94 11/29/18 15:20 98 H 112/63 93 11/29/18 15:18 90 100/64 95 11/29/18 15:16 95 H 102/67 96 11/29/18 15:14 98 H 102/69 96 11/29/18 15:12 100 H 90/52 L 94 11/29/18 15:10 85 92/52 L 95 11/29/18 15:08 84 88/51 L 95 11/29/18 15:06 83 84/44 L 95 11/29/18 15:04 85 86/44 L 96 11/29/18 15:00 106 H 113/83 92 11/29/18 14:58 117 H 111/83 91 11/29/18 14:55 82 98 11/29/18 12:37 97 H 32 H 94 11/29/18 08:00 100 H 11/29/18 07:48 98 H 33 H 92 11/29/18 07:45 36.8 C 96 H 96/68 L 99 Laboratory Results Short CBC 11/29/18 Range/Units 04:13 WBC 8.27 (4.8-10.8) K/uL Hgb 9.3 L (12.0-16.0) g/dL Hct 28.7 L (37-47) % Plt Count 157 (130-400) K/uL BMP 11/29/18 04:13 Sodium 143 Potassium 3.4 L D Chloride 107 Carbon Dioxide 29 BUN 8 Creatinine 0.44 L Glucose 95 Calcium 8.7 Diagnostic Findings Microbiology 11/27/18 10:00 Bronch Wash,Left Lower Lobe Gram Stain - Final 11/27/18 10:00 Bronch Wash,Left Lower Lobe Bronchoalveolar Lavage Culture - Final Pseudomonas aeruginosa 11/15/18 17:09 Bronch Wash,Left Lower Lobe Fungal Smear - Final 11/15/18 17:09 Bronch Wash,Left Lower Lobe Fungal Culture - Preliminary No yeast or fungus isolated - Report 2, Additional report to follow. 11/27/18 10:00 Bronch Wash,Left Lower Lobe Acid Fast Bacilli Smear - Final 11/27/18 10:00 Bronch Wash,Left Lower Lobe Fungal Smear - Final 11/15/18 17:09 Bronch [place], Left Lower Lobe Acid Fast Bacilli Smear - Final 11/15/18 17:09 Bronch [place], Left Lower Lobe Acid Fast Bacilli Culture - Preliminary No Acid-Fast Bacilli Isolated - Report 1, Additional Report to Follow. 11/15/18 11:44 Blood Aerobic Blood Culture - Final No growth in Aerobic bottle after 5 days. 11/15/18 11:44 Blood Anaerobic Blood Culture - Final 11/18/18 10:11 Bronch Wash,Left Lower Lobe Gram Stain - Final 11/18/18 10:11 Bronch Wash,Left Lower Lobe Bronchoalveolar Lavage Culture - Final Pseudomonas aeruginosa 11/15/18 17:09 Bronch [place], Left Lower Lobe Gram Stain - Final 11/15/18 17:09 Bronch [place], Left Lower Lobe Bronchoalveolar Lavage Culture - Final Pseudomonas aeruginosa 11/15/18 11:48 Sputum,Trach Gram Stain - Final 11/15/18 11:48 Sputum,Trach Sputum Culture - Final Pseudomonas aeruginosa XR chest 1V portable HISTORY: 23 years-old Female f/u follow-up study in a patient with shortness of breath COMPARISON: Chest radiograph 11/28/2018 TECHNIQUE: Portable AP view of the chest FINDINGS: Tracheostomy cannula overlies the midline superior to the clavicular heads, unchanged. Cardiac silhouette appears normal in size. No pneumothorax. Right lung is generally clear there are progressively worsened airspace opacities of the left midlung and left lung base with possible trace left pleural effusion. No overt pulmonary edema. Bones appear grossly intact. IMPRESSION: Progressively worsened left midlung and left lung base opacities suggests atelectasis or pneumonia. Continued follow-up recommended. The above report was generated using voice recognition software. It may contain grammatical, syntax or spelling errors. Electronically signed by: Finn Townsend M.D. 11/29/2018 6:59 AM PG Care Time/CCT Total # of Minutes Spent Total Time Spent with Patient: Total time spent is greater than 50% in coordination of care (as documented) at patient's floor/unit and/or counseling patient: (1) Pneumonia Laterality: left Lung location: lower lobe of lung Pneumonia type: due to unspecified organism Qualified Code(s): J18.1 - Lobar pneumonia, unspecified organism
[2018-11-29] MEDS: ZONISAMIDE 100 MG PO SCH (21:22)
[2018-11-29] MEDS: TRAZODONE HCL 50 MG TAB PEG SCH (21:23)
[2018-11-30] MEDS: ALBUT/IPRATROP 3MG/0.5MG NEB 3 ML VIAL NEB SCH ×6 (04:01→22:59)
[2018-11-30] MEDS: PATIENT'S OWN ENTERAL FEEDING PEG SCH ×4 (06:29→20:31)
[2018-11-30] MEDS: TUBE FEEDING WATER FLUSH PO SCH ×4 (06:29→20:15)
--- NOTE | 2018-11-30 06:52 | XRay Report ---
XR chest 1V portable CLINICAL HISTORY: Shortness of breath. Abnormal chest x-ray. COMPARISON STUDY: 11/29/2018 FINDINGS: The cardiac and mediastinal contours remain stable. A tracheostomy tube is again evident. T here is left lower lobe pulmonary consolidation and volume loss. There are minimal right basilar airs pace opacities. The upper lung zones appear clear. There is no failure. Trace pleural fluid on the le ft cannot be excluded. IMPRESSION: 1. Stable left lower lobe consolidation and volume loss 2. Minimal right basilar airspace opacities Electronically signed by: Galen Ham M.D. 11/30/2018 6:51 AM
[2018-11-30] MEDS: BUDESONIDE 0.5 MG/2 ML VIAL (PULMICORT) INH SCH ×2 (06:57→20:19)
[2018-11-30] MEDS: ACETYLCYSTEINE 10% INHAL SOLN **DISPENSED FROM RESP. INH SCH ×4 (07:15→20:18)
--- NOTE | 2018-11-30 07:22 | Critical Care Progress Note ---
Date of Service November 30, 2018 Assessment & Plan (1) Mucoid impaction of bronchi: Reason Critically Ill: High risk patient with tracheostomy with pneumonia NEURO H/O CP. Patient at baseline neuro status, unable to converse Patient with history of seizure disorder as well, will continue home medications Zonisamide, Depakote. Depakote level therapeutic this admission CV Patient tachycardic and blood pressures borderline Close to patient's baseline from previous admissions Will monitor and give fluid as needed PULM Continuing Zosyn for her MDR pseudomonas pneumonia. Completed 14 day course, continuing for now, likely will be dc'd tomorrow Will cont trend ESR, CRP again tomorrow. Procal normalized now. On ventilator at night oxygen requirement increased with copious phlegm Will bronch again today- CXR seems improved today Patient needs aggressive suctioning and CoughAssist QID Nebulized Mucomyst QID daily Abd/GI Will continue home PEG tube feeds ID Sputum culture and bronchial lavage growing pseudomonas, sensitive to zosyn On zosyn for this pneumonia, as above will dc tomorrow. Per ID recs, dc'd inhaled tobramycin 2/2 resistance Discussed pneumonia vaccination status with mother, she has been adequately vaccinated. She can either get a booster later this year or anytime in the next five for her PPSV vaccination. /RENAL Kidney function normal at baseline Heme Stable H/H, at baseline. No hematologic abnormality Blood draws to every other day as above LINES: PIV x1 DVT Prophylaxis: SCDs Conditional Code: [facility] Vent only DISPO: ICU. Continuing discussion with mother about goals, treatment course, and halfway prognosis. Appreciate [facility] Care assistance. Supervising Physician Co-Signing Physician Notes Dr. Smyth was resident physician during care of patient. I separately evaluated patient for canales portions of the history and the exam. I was present during the critical portion of medical decision making, and I discussed the case with the resident. I generally agree with the findings and plan. Increase oxygen requirement today, I believe this is secondary to mucoid impaction of the bronchi which she is having difficulty clearing. We are continuing aggressive chest physiotherapy and CoughAssist. Her pro Deonte has now normalized her CRP and ESR elevated, I am unsure what her baseline is as we have not checked these previously. Her secretions based off yesterday's bronchoscopy are white, did not appear to be infected, we will continue antibiotics today and discontinue tomorrow. Subjective 23 yo F found in bed this AM in NAD. Tolerated bronch yesterday with no infectious looking sputum seen. Today reports of yellowish sputum. Discussed further with mother plan moving forward. Looking to have at least 3 consecutive 'good' days before we can consider d/c. Mother in understanding. No other acute concerns or complaints. Review of Systems Review of Systems: All systems reviewed & are unremarkable except as noted in HPI & below Physical Exam Constitutional: + cachectic Eyes: PERRL, conjunctivae normal, anicteric sclerae ENMT: external ear and nose normal, oropharynx normal Respiratory: + tachypneic decreased lung sounds L>R Crackles LLL Rhonchi Cardiovascular: RRR, no murmur, no edema Gastrointestinal (Abdomen): normal bowel sounds, soft, nontender, no hepatosplenomegaly Skin: no rashes, warm and dry Psychiatric: CP Results & Data Vital Signs (Past 12 Hours) Vital Signs Temp Pulse Pulse Resp BP Pulse Ox 11/30/18 06:01 26 H 11/30/18 06:00 96 H 31 H 91/46 L 92 11/30/18 05:00 108 H 26 H 102/52 L 96 11/30/18 04:22 101 H 19 94 11/30/18 04:00 36.8 C 98 H 26 H 95/56 L 95 11/30/18 03:00 80 23 92/50 L 94 11/30/18 02:00 90 19 96/50 L 93 11/30/18 01:22 97 H 22 92 11/30/18 01:00 98 H 22 97/49 L 93 11/30/18 00:00 36.9 C 97 H 20 103/95 93 11/29/18 23:04 75 17 96 11/29/18 23:00 101 H 37 H 95/48 L 91 11/29/18 22:00 91 H 41 H 97/59 L 96 11/29/18 21:00 93 H 31 H 99/71 L 97 11/29/18 19:29 91 H 26 H 99 Laboratory Results Laboratory Results - last 24 hr 11/30/18 11/30/18 11/30/18 04:27 04:27 04:27 ESR 75 H C-Reactive Protein 3.26 H Procalcitonin < 0.05 Medications Administered Current Inpatient Medications Acetaminophen (Children's Acetaminophen) 320 mg PO Q4H PRN PRN Reason: Fever Stop: 12/19/18 14:33 Last Admin: 11/19/18 15:03 Dose: 320 mg Documented by: Acetylcysteine (Mucomyst 10%) 3 ml INH QIDR KENNEDY Stop: 12/28/18 10:59 Last Admin: 11/30/18 11:18 Dose: 3 ml Documented by: Albuterol (Duoneb) 3 ml NEB Q4R KENNEDY Stop: 12/15/18 14:59 Last Admin: 11/30/18 11:18 Dose: 3 ml Documented by: Albuterol (Ventolin 0.083% 2.5mg/3ml) 2.5 mg INH Q4H PRN PRN Reason: Wheezing/ shortness of breath Stop: 12/15/18 14:48 Last Admin: 11/27/18 03:35 Dose: 2.5 mg Documented by: Baclofen (Lioresal) 20 mg PO TID KENNEDY Stop: 12/15/18 15:29 Last Admin: 11/30/18 08:26 Dose: 20 mg Documented by: Budesonide (Pulmicort Respules) 0.5 mg INH BIDR KENNEDY Stop: 12/15/18 18:59 Last Admin: 11/30/18 06:57 Dose: 0.5 mg Documented by: Clonazepam (Klonopin) 0.5 mg PO DAILY PRN PRN Reason: seizures Stop: 12/15/18 15:29 Fluoxetine HCl (Prozac) 20 mg NG DAILY [facility] Stop: 12/16/18 08:59 Last Admin: 11/30/18 08:30 Dose: 20 mg Documented by: Acetaminophen (Ofirmev) 65 mls @ 200 mls/hr IV Q8H PRN PRN Reason: fever Stop: 12/15/18 14:48 Last Infusion: 11/27/18 07:45 Dose: Infused Documented by: Piperacillin Sod/Tazobactam (Sod 3.375 gm/ Dextrose) 115 mls @ 28.75 mls/hr IV Q8H [facility]; Protocol Stop: 12/01/18 15:59 Last Admin: 11/30/18 08:34 Dose: 28.8 mls/hr Documented by: Miscellaneous Information (Consult) 1 ea N/A UD PRN PRN Reason: Consult Stop: 12/15/18 14:48 Nitrofurantoin (Furadantin) 50 mg PEG DAILY KENNEDY Stop: 12/16/18 08:59 Last Admin: 11/30/18 08:26 Dose: 50 mg Documented by: Cetirizine 1mg/Ml: Non-Formulary Patient's Own Med 10 ea PEG DAILY KENNEDY Stop: 12/16/18 08:59 Last Admin: 11/30/18 08:29 Dose: 10 ml Documented by: Nutritional Formula (Patient's Own Enteral Feeding) 350 ml PEG 0700,113 0,1500,1900 KENNEDY Stop: 12/16/18 11:29 Last Admin: 11/30/18 12:31 Dose: 350 ml Documented by: Polyethylene Glycol (Miralax Powder Packet) 8.5 gm PEG DAILY PRN PRN Reason: bowel regiment Last Admin: 11/20/18 16:47 Dose: 8.5 gm Documented by: Potassium Chloride (Elisabeth Ciel Elix) 20 meq PEG DAILY KENNEDY Stop: 12/22/18 08:59 Last Admin: 11/30/18 08:27 Dose: 20 meq Documented by: Sterile Water (Tube Feeding Water Flush) 1 ea PO QID@07,1130,15,19 KENNEDY Stop: 12/15/18 14:59 Last Admin: 11/30/18 12:31 Dose: 1 ea Documented by: Trazodone HCl (Desyrel) 50 mg PEG HS KENNEDY Stop: 12/15/18 20:59 Last Admin: 11/29/18 21:23 Dose: 50 mg Documented by: Valproic Acid (Valproic Acid) 500 mg PO TID KENNEDY Stop: 12/16/18 13:59 Last Admin: 11/30/18 08:30 Dose: 500 mg Documented by: Zonisamide (Zonegran) 1 ea PO HS KENNEDY Stop: 12/15/18 20:59 Last Admin: 11/29/18 21:22 Dose: 1 ea Documented by: Zonisamide (Zonegran) 2 ea PO QAM KENNEDY Stop: 12/16/18 08:59 Last Admin: 11/30/18 08:35 Dose: 2 ea Documented by: PG Care Time/CCT Total # of Minutes Spent Total Time Spent with Patient: Total time spent is greater than 50% in coordination of care (as documented) at patient's floor/unit and/or counseling patient: Critical Care Time: Yes Resident Activity Tracking Resident Involvement: Resident Care Provided Care Provided: Adult [facility] Medicine
[2018-11-30] MEDS: BACLOFEN 20 MG TAB PO SCH ×3 (08:26→20:16)
[2018-11-30] MEDS: NITROFURANTOIN 25 MG/5 ML PEG SCH (08:26)
[2018-11-30] MEDS: POTASSIUM CHLORIDE 20 MEQ/15 ML UDC PEG SCH (08:27)
[2018-11-30] MEDS: CETIRIZINE 1 MG/ML PEG SCH (08:29)
[2018-11-30] MEDS: VALPROIC ACID SOLN 500 MG/10 ML UDC PO SCH ×3 (08:30→20:17)
[2018-11-30] MEDS: FLUOXETINE HCL 20 MG/5 ML UDP NG SCH (08:30)
[2018-11-30] MEDS: PIPERACILLIN/TAZOBACTAM 3.375 GM in DEXTROSE 5% 100 ML IV SCH ×2 (08:34→15:46)
--- NOTE | 2018-11-30 11:43 | Palliative Care Progress Note ---
Date of Service November 30, 2018 Assessment & Plan (1) Palliative care encounter: -Patient is relatively stable this morning. She is awake and alert, no distress. Had bronchoscopy done yesterday to clear mucous plugging. She does still have some yellow sputum with suctioning today. -On 10L oxygen via trach collar with oxygen saturation around 90%. -Lengthy discussion yesterday with patient's mother Martha, case management, palliative care team and ICU photo printer. Goal is for patient to improve as close to her baseline as possible. Mother's main goal is to get her home. If patient continues to decline over time, mother is open to transitioning more towards comfort care. At this time, continue with current treatment. -Discussed during ICU rounds-- patient really needs 2-3 "good" days prior to discharge-- no mucous plugging, stable VS, no complications, etc. -Palliative care will continue to follow intermittently throughout hospitalization. No family present today. (2) Acute on chronic respiratory failure with hypoxia and hypercapnia: (3) Mucoid impaction of bronchi: (4) History of cerebral palsy: (5) History of tracheostomy: (6) Status post insertion of percutaneous endoscopic gastrostomy (PEG) tube: (7) Seizure disorder: (8) Bronchopneumonia due to Pseudomonas species: Subjective -Patient is relatively stable this morning. She is awake and alert, no distress. Had bronchoscopy done yesterday to clear mucous plugging. She does still have some yellow sputum with suctioning today. Review of Systems Review of Systems: Unobtainable due to cognitive status Physical Exam Constitutional: + language barrier (nonverbal ) and + frail appearing; + not well developed, + not well nourished and no acute distress Respiratory: no respiratory distress and no labored breathing Cardiovascular: Rate/Rhythm: + tachycardic Extremities: no edema Gastrointestinal (Abdomen): Inspection/Auscultation: abdomen not distended Percussion/Palpation: abdomen soft Neurologic: moves all extremities and awake Psychiatric: Orientation: alert Results & Data Vital Signs (Past 12 Hours) Vital Signs Temp Pulse Pulse Resp BP Pulse Ox 11/30/18 11:19 108 H 24 92 11/30/18 09:30 101 H 32 H 97/58 L 92 11/30/18 09:00 103 H 35 H 99/48 L 88 L 11/30/18 08:30 111 H 31 H 100/56 L 86 L 11/30/18 08:00 111 H 35 H 96/64 L 91 11/30/18 07:45 108 H 24 95 11/30/18 07:30 90 21 105/67 75 L 11/30/18 07:15 108 H 24 96 11/30/18 07:00 103 H 90/46 L 99 11/30/18 06:01 26 H 11/30/18 06:00 96 H 31 H 91/46 L 92 11/30/18 05:00 108 H 26 H 102/52 L 96 11/30/18 04:22 101 H 19 94 11/30/18 04:00 36.8 C 98 H 26 H 95/56 L 95 11/30/18 03:00 80 23 92/50 L 94 11/30/18 02:00 90 19 96/50 L 93 11/30/18 01:22 97 H 22 92 11/30/18 01:00 98 H 22 97/49 L 93 11/30/18 00:00 36.9 C 97 H 20 103/95 93 Supervising Physician Co-Signing Physician Notes Patient seen in room 103, mother not at bedside. Collaborated with ERIK Peña Patient is under going bronc-upper airway secretions are frothy, deeper secretions are thick and tenacious slightly yellow in appearance. Bronc was performed due to increasing hypoxia-required increase in her O2 to 10 L/min with sats of only 88% Discussed plan of care with attending physician, Dr. Tariq -plan is to give patient 3 days of aggressive pulmonary toilet and see how she does on her own- patient unable to cough effectively due to mobilize secretions. PE: Patient awake, nonverbal Respirations: Unlabored, undergoing bronchoscopy CV: Tachycardic Abdomen: Not distended Agree with above note, assessment and plan as per ERIK Peña. Will continue to follow and monitor patient's progress, provided support to patient's mother and assist with medical decision making. PG Care Time/CCT Total # of Minutes Spent Total Time Spent with Patient: Total time spent is greater than 50% in coordination of care (as documented) at patient's floor/unit and/or counseling patient: Time Spent Midlevel 35 minutes with >50% of the time spent at bedside with patient and ICU/multi- disciplinary team during rounds discussing plan of care.
[2018-11-30] MEDS ORDERED: fentaNYL citrate 100 MCG/2 ML VIAL ONE ×2 (14:12→14:37)
[2018-11-30] MEDS ORDERED: MIDAZOLAM HCL 1 MG/ML 2ML VIAL ONE ×2 (14:13→14:58)
[2018-11-30] MEDS ORDERED: fentaNYL citrate 100 MCG/2 ML VIAL IV STA (15:16)
[2018-11-30] MEDS ORDERED: MIDAZOLAM HCL 5 MG/ML 1 ML VIAL IV STA ×3 (15:16→15:17)
[2018-11-30] MEDS ORDERED: NORMOSOL-R 1,000 ML IV SCH (15:30)
[2018-11-30] MEDS: TRAZODONE HCL 50 MG TAB PEG SCH (20:17)
--- NOTE | 2018-11-30 20:29 | Hospitalist Progress Note ---
Date of Service November 30, 2018 Assessment & Plan (1) Acute on chronic respiratory failure with hypoxia and hypercapnia: acute resp failure 2nd to left-sided pseudomonas pneumonia. treated with zosyn, day #16 of such. s/p bronch x 7 this admission for removal of mucous plugs left bronchial tree. most recent bronchoscopy was on 11/28. remains on trach collar during the day. continue night-time vent. defer night-time vent management to critical care staff. (2) Sepsis: 2nd to pneumonia. resolved. (3) Pneumonia: left-sided. 2nd to pseudomonas. day #16 of zosyn. per ID, Tobramycin nebs stopped as the pathogen is not fully sensitive to such. 3-week course of zosyn? defer to ID and critical care. (4) History of tracheostomy: chronic trach with night-time vent use at home. 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 at baseline is nonverbal, does not follow commands, is bed-bound. Trach/PEG in place. (6) Seizure disorder: had 30-second seizure 11/18/18. none since. depakote level therapeutic shortly after that seizure. (7) Thrombocytopenia: likely sepsis-associated. resolved. last CBC stable. (8) Status post insertion of percutaneous endoscopic gastrostomy (PEG) tube: tolerating tube feeds tube feeds are at goal no issues (9) DVT prophylaxis: SCDs in place will cont to follow dispo - home with HH (LTACH ruled out as option by report) Subjective no new issues remains vented at HS and trach collar during day no fever Review of Systems Review of Systems: Unobtainable due to cognitive status Physical Exam Constitutional: + thin, + language barrier (nonverbal ) and + frail appearing ENMT: Mouth: + oropharynx abnormality (cleft palate; no thrush present); oral mucous membranes not dry Respiratory: no respiratory distress and not tachypneic Auscultation: + diminished lung sounds (left base only); no crackles and no wheezes Cardiovascular: Rate/Rhythm: regular rhythm and + tachycardic Heart Sounds: normal S1 and normal S2; no murmur Vessels: posterior tibial pulses present and dorsalis pedis pulses present; no JVD Extremities: no edema Gastrointestinal (Abdomen): normal bowel sounds, soft, nontender, no hepatosplenomegaly PEG tube present; clean Skin: + ecchymosis (left knee) Neurologic: contractures b/l legs and arms Results & Data Vital Signs (Past 12 Hours) Vital Signs Temp Pulse Pulse Resp BP Pulse Ox 11/30/18 20:19 99 H 28 H 90 11/30/18 17:30 97 H 24 97 11/30/18 17:00 37.3 C 91 H 31 H 94/50 L 99 11/30/18 16:30 103 H 32 H 87/53 L 97 11/30/18 16:00 37.3 C 120 H 117 H 44 H 109/64 92 11/30/18 15:35 90 35 H 81/36 L 90 11/30/18 15:31 90 24 91 11/30/18 15:30 90 38 H 80/36 L 91 11/30/18 15:25 94 H 40 H 78/39 L 90 11/30/18 15:20 95 H 46 H 82/39 L 89 L 11/30/18 15:15 98 H 44 H 76/39 L 90 11/30/18 15:10 99 H 50 H 79/43 L 91 11/30/18 15:05 105 H 56 H 97/50 L 94 11/30/18 15:00 134 H 19 91/44 L 82 L 11/30/18 14:55 116 H 36 H 99/46 L 84 L 11/30/18 14:50 108 H 33 H 74/39 L 93 11/30/18 14:45 100 H 43 H 67/38 L 97 11/30/18 14:40 135 H 21 88/59 L 87 L 11/30/18 14:35 128 H 25 H 85/49 L 90 11/30/18 14:34 120 H 42 H 94/53 L 90 11/30/18 14:25 120 H 85 L 11/30/18 14:00 112 H 48 H 97/54 L 86 L 11/30/18 13:00 109 H 41 H 98/60 L 88 L 11/30/18 12:00 37.6 C H 99 H 39 H 95/61 L 89 L 11/30/18 11:19 108 H 24 92 11/30/18 11:00 106 H 42 H 95/55 L 86 L 11/30/18 10:04 91 H 45 H 97/53 L 91 11/30/18 10:00 103 H 35 H 99/51 L 91 11/30/18 09:30 101 H 32 H 97/58 L 92 11/30/18 09:00 103 H 35 H 99/48 L 88 L 11/30/18 08:30 111 H 31 H 100/56 L 86 L Laboratory Results Laboratory Results - last 24 hr 11/30/18 11/30/18 11/30/18 04:27 04:27 04:27 ESR 75 H POC Glucose C-Reactive Protein 3.26 H Procalcitonin < 0.05 11/30/18 13:04 ESR POC Glucose 88 C-Reactive Protein Procalcitonin PG Care Time/CCT Total # of Minutes Spent Total Time Spent with Patient: Total time spent is greater than 50% in coordination of care (as documented) at patient's floor/unit and/or counseling patient: (1) Sepsis Sepsis acute organ dysfunction status: unspecified Sepsis type: sepsis due to unspecified organism Qualified Code(s): A41.9 - Sepsis, unspecified organism (2) Pneumonia Laterality: left Lung location: lower lobe of lung Pneumonia type: due to unspecified organism Qualified Code(s): J18.1 - Lobar pneumonia, unspecified organism
[2018-11-30] MEDS: ZONISAMIDE 100 MG PO SCH (20:31)
[2018-12-01] MEDS: PIPERACILLIN/TAZOBACTAM 3.375 GM in DEXTROSE 5% 100 ML IV SCH ×2 (00:28→08:01)
[2018-12-01] MEDS: ALBUT/IPRATROP 3MG/0.5MG NEB 3 ML VIAL NEB SCH ×6 (03:20→22:09)
[2018-12-01 04:52] LABS: Basophils # (auto) 0.01 K/uL (0-0.2); Basophils % (auto) 0.2 %; Eosinophils # (auto) 0.17 K/uL (0-0.5); Eosinophils % (auto) 3.1 %; Hematocrit (blood only) 29.7 % (37-47); Hemoglobin 9.7 g/dL (12.0-16.0); Immature Granulocytes # (auto) 0.01 K/uL (0.00-0.02); Immature Granulocytes % (auto) 0.2 %; Lymphocytes # (auto) 1.05 K/uL (1.2-3.4); Lymphocytes % (auto) 18.9 %; Mean Corpuscular Hemoglobin 33.1 pg (25-34); Mean Corpuscular Hgb Conc 32.7 g/dL (32-36); Mean Corpuscular Volume 101.4 fL (80-100); Mean Platelet Volume 8.9 fL (7.4-10.4); Monocytes # (auto) 0.41 K/uL (0.11-0.59); Monocytes % (auto) 7.4 %; Neutrophils # (auto) 3.91 K/uL (1.4-6.5); Neutrophils % (auto) 70.2 %; Platelet Count 153 K/uL (130-400); RDW Coefficient of Variation 13.3 % (11.5-14.5); RDW Standard Deviation 48.5 fL (36.4-46.3); Red Blood Count 2.93 M/uL (4.2-5.4); White Blood Count 5.56 K/uL (4.8-10.8)
[2018-12-01 05:25] LABS: BUN Creatinine Ratio 11.1 (10-20); Blood Urea Nitrogen 5 mg/dl (7-18); Calcium 8.6 mg/dl (8.5-10.1); Carbon Dioxide 27 mmol/L (21-32); Chloride 104 mmol/L (98-107); Creatinine Clr Calc Pharmacy 126.2 ml/min; Est GFR (African American) > 150.0; Est GFR (Non-African American) 139.2; Glucose 86 mg/dl (70-99); Potassium 3.6 mmol/L (3.5-5.1); Sodium 139 mmol/L (136-145)
[2018-12-01 05:26] LABS: C Reactive Protein 4.12 mg/dl (0-0.29)
--- NOTE | 2018-12-01 06:49 | XRay Report ---
XR chest 1V portable CLINICAL HISTORY: Shortness of breath. Abnormal chest x-ray. COMPARISON STUDY: 11/30/2018 FINDINGS: A tracheostomy tube is again visualized. The cardiac and mediastinal contours remain stable . There is persistent left lower lobe consolidation volume loss. There is improvement in the aeration of the right lung base. There is equivocal trace pleural fluid on the left. There is no pneumothorax .[ IMPRESSION: 1. Persistent left lower lobe consolidation and volume loss 2. Improving aeration of the right lung base. Electronically signed by: Galen Ham M.D. 12/01/2018 6:48 AM
[2018-12-01] MEDS: ACETYLCYSTEINE 10% INHAL SOLN **DISPENSED FROM RESP. INH SCH (07:02)
[2018-12-01] MEDS: BUDESONIDE 0.5 MG/2 ML VIAL (PULMICORT) INH SCH ×2 (07:02→19:19)
[2018-12-01] MEDS: POTASSIUM CHLORIDE 20 MEQ/15 ML UDC PEG SCH (07:57)
[2018-12-01] MEDS: FLUOXETINE HCL 20 MG/5 ML UDP NG SCH (07:57)
[2018-12-01] MEDS: VALPROIC ACID SOLN 500 MG/10 ML UDC PO SCH ×3 (07:57→19:53)
[2018-12-01] MEDS: BACLOFEN 20 MG TAB PO SCH ×3 (07:57→19:52)
[2018-12-01] MEDS: CETIRIZINE 1 MG/ML PEG SCH (07:58)
[2018-12-01] MEDS: NITROFURANTOIN 25 MG/5 ML PEG SCH (07:59)
--- NOTE | 2018-12-01 07:59 | Critical Care Progress Note ---
Date of Service December 01, 2018 Assessment & Plan (1) Mucoid impaction of bronchi: Reason Critically Ill: High risk patient with tracheostomy with pneumonia NEURO H/O CP. Patient at baseline neuro status, unable to converse Patient with history of seizure disorder as well, will continue home medications Zonisamide, Depakote. Depakote level therapeutic this admission CV Patient tachycardic and blood pressures borderline Close to patient's baseline from previous admissions Will monitor and give fluid as needed PULM DC'd Zosyn for her MDR pseudomonas pneumonia 12/01. Completed 16 day course ESR, CRP slightly elevated from yesterday. Procal normalized now. Airway Obstruction 2/2 acute mucoid obstruction in setting of chronic neuromuscular disease On ventilator at night oxygen requirement increased with copious phlegm No bronch today- CXR reviewed Patient needs aggressive suctioning and CoughAssist QID Nebulized Mucomyst QID daily Before we can consider d/c, need at least 2-3 'good' days consecutively Abd/GI Will continue home PEG tube feeds Nutrition on board- increase protein sarah ID Sputum culture and bronchial lavage growing pseudomonas, sensitive to zosyn D/C'd zosyn as above. Per ID recs, dc'd inhaled tobramycin 2/2 resistance Discussed pneumonia vaccination status with mother, she has been adequately vaccinated. She can either get a booster later this year or anytime in the next five for her PPSV vaccination. /RENAL Kidney function normal at baseline Heme Stable H/H, at baseline. No hematologic abnormality Blood draws to every other day as above LINES: PIV x1 DVT Prophylaxis: SCDs Conditional Code: [facility] Vent only DISPO: ICU. Continuing discussion with mother about goals, treatment course, and shelter prognosis. Appreciate Pal Care assistance. Supervising Physician Co-Signing Physician Notes Dr. Smyth was resident physician during care of patient. I separately evaluated patient for canales portions of the history and the exam. I was present during the critical portion of medical decision making, and I discussed the case with the resident. I generally agree with the findings and plan. Compared to yesterday the patient appears to be improved, decreased FiO2 requirement, mobilizing secretions easier today. Had long discussion with the patient's mother, it appears to be the patient's pattern to have a worsening Pseudomonas pneumonia which will have a certain infectious phase and then a recurrent mucoid impaction phase as she has neuromuscular disease that limits her ability to clear her airways requiring frequent recurrent bronchoscopies. Based off of the qualities of the mucoid impaction of the set the past several days I feel that we can discontinue the Zosyn especially with the setting of the procalcitonin normalizing. I am hopeful that she continues to improve in the bronchoscopy frequency decreases. In discussion with the patient's mother her baseline oxygen saturation is always in the low 90s however this is not on supplemental oxygen and she still continue supplemental oxygen for acute hypoxic respiratory failure secondary to acute airway obstruction from recurrent mucoid impaction of the bronchi. We discussed custom tracheostomies yesterday after the bronchoscopy. I did notice that with forced exhalation the posterior wall of the trachea did occlude the distal portion of her tracheostomy tube by approximately 50%. I contacted Dr. Gregg's office who she follows up with as an outpatient regarding both custom tracheostomy and possibly facilitation of evaluation of the trachea for granuloma formation. Patient's mother reports last Thursday she was scheduled for her normal annual evaluation by ENT for trachea inspection. Dr. Gregg reported that the trachea inspection is best performed in the office setting and would not be available to evaluate the patient in the hospital. With regards to possible custom tracheostomy that is performed through the outpatient tracheostomy clinic and [facility] and if that is something that the john grimm would want to pursue will require follow-up in [place]. In discussing with the patient's mother we will hold off custom tracheostomy evaluation at this time. We have had extensive discussions regarding goals of care we have discussed this with palliative care and case management as well, I do believe that the patient is in a end-stage condition, her neuromuscular disease will not improve to allow the patient to better effectively clear her airways and she will be at constant life-threatening risk of recurrent mucoid impaction as well as acute airway obstruction from inefficient airway clearance from the pre-existing neuromuscular disease. Patient's mother and treatment team all in agreement with constant life-threatening risk as described above. We will continue our current treatment paradigm in the hopes that the patient's secretion burden becomes less as we get further removed from the infectious phase. There obviously significant nursing and care issues that we are attempting to find adequate solutions to with regards to care provider presents, possible palliative approach, possible long-term positive pressure ventilation to decrease airway obstruction risk, long-term placement for mechanical ventilation. At this time overarching goals is still to return home, she is still appears to be requiring intermittent positive airway pressure at night when sleeping. With regards to hopeful discharge home the overarching idea is we need to see 3 days of stabilization/improvement prior to us being able to facilitate her discharge I consider this day 1 of 3. Subjective 23 yo F found in bed this AM in NAD. No reported overnight events. Doing well s/p bronch yesterday. No new issues. Case discussed with mother today. Remains vented at HS and trach collar during day. No other acute concerns or complaints. Review of Systems Review of Systems: All systems reviewed & are unremarkable except as noted in HPI & below Physical Exam Constitutional: + thin Eyes: PERRL, conjunctivae normal, anicteric sclerae ENMT: external ear and nose normal, oropharynx normal Respiratory: decreased sounds L base Cardiovascular: RRR, no murmur, no edema Gastrointestinal (Abdomen): normal bowel sounds, soft, nontender, no hepatosplenomegaly Musculoskeletal: UE/LE contractures Skin: no rashes, warm and dry Psychiatric: CP Results & Data Vital Signs (Past 12 Hours) Vital Signs Temp Pulse Pulse Resp BP Pulse Ox 12/01/18 07:02 90 26 H 91 12/01/18 06:00 94 H 100/56 L 93 12/01/18 05:00 88 95/55 L 95 12/01/18 04:30 100 H 16 93 12/01/18 04:00 37.1 C 105 H 112/70 93 12/01/18 03:00 92 H 102/68 95 12/01/18 02:00 81 101/64 96 12/01/18 01:25 86 19 95 12/01/18 01:00 87 101/60 95 12/01/18 00:12 90 12/01/18 00:00 37.3 C 94 H 94/57 L 94 11/30/18 23:00 97 H 24 95/60 L 92 11/30/18 22:00 90 33 H 87/43 L 90 11/30/18 21:00 37.3 C 92 H 30 H 87/41 L 93 11/30/18 20:19 99 H 28 H 90 11/30/18 20:00 37.3 C 95 H 37 H 99/54 L 94 Laboratory Results Laboratory Results - last 24 hr 11/30/18 12/01/18 12/01/18 13:04 04:34 04:34 WBC 5.56 RBC 2.93 L Hgb 9.7 L Hct 29.7 L MCV 101.4 H MCH 33.1 MCHC 32.7 RDW Std Deviation 48.5 H RDW Coeff of [place]quito 13.3 Plt Count 153 MPV 8.9 Immature Gran % (Auto) 0.2 Neut % (Auto) 70.2 Lymph % (Auto) 18.9 [place] % (Auto) 7.4 Eos % (Auto) 3.1 Baso % (Auto) 0.2 Immature Gran # (Auto) 0.01 Neut # (Auto) 3.91 Lymph # (Auto) 1.05 L [place] # (Auto) 0.41 Eos # (Auto) 0.17 Baso # (Auto) 0.01 ESR Sodium 139 Potassium 3.6 Chloride 104 Carbon Dioxide 27 Anion Gap 8.0 BUN 5 L Creatinine 0.48 L Est Cr Clr Drug Dosing 126.2 Est GFR ( Amer) > 150.0 Est GFR (Non-Af Amer) 139.2 BUN/Creatinine Ratio 11.1 Glucose 86 POC Glucose 88 Calcium 8.6 C-Reactive Protein 4.12 H 12/01/18 04:34 WBC RBC Hgb Hct MCV MCH MCHC RDW Std Deviation RDW Coeff of [place]quito Plt Count MPV Immature Gran % (Auto) Neut % (Auto) Lymph % (Auto) [place] % (Auto) Eos % (Auto) Baso % (Auto) Immature Gran # (Auto) Neut # (Auto) Lymph # (Auto) [place] # (Auto) Eos # (Auto) Baso # (Auto) ESR 85 H Sodium Potassium Chloride Carbon Dioxide Anion Gap BUN Creatinine Est Cr Clr Drug Dosing Est GFR ( Amer) Est GFR (Non-Af Amer) BUN/Creatinine Ratio Glucose POC Glucose Calcium C-Reactive Protein Medications Administered Current Inpatient Medications Acetaminophen (Children's Acetaminophen) 320 mg PO Q4H PRN PRN Reason: Fever Stop: 12/19/18 14:33 Last Admin: 11/19/18 15:03 Dose: 320 mg Documented by: Acetylcysteine (Mucomyst 10%) 3 ml INH QIDR KENNEDY Stop: 12/31/18 10:59 Last Admin: 12/01/18 11:15 Dose: 3 ml Documented by: Albuterol (Duoneb) 3 ml NEB Q4R KENNEDY Stop: 12/15/18 14:59 Last Admin: 12/01/18 11:15 Dose: 3 ml Documented by: Albuterol (Ventolin 0.083% 2.5mg/3ml) 2.5 mg INH Q4H PRN PRN Reason: Wheezing/ shortness of breath Stop: 12/15/18 14:48 Last Admin: 11/27/18 03:35 Dose: 2.5 mg Documented by: Baclofen (Lioresal) 20 mg PO TID [facility] Stop: 12/15/18 15:29 Last Admin: 12/01/18 07:57 Dose: 20 mg Documented by: Budesonide (Pulmicort Respules) 0.5 mg INH BIDR [facility] Stop: 12/15/18 18:59 Last Admin: 12/01/18 07:02 Dose: 0.5 mg Documented by: Clonazepam (Klonopin) 0.5 mg PO DAILY PRN PRN Reason: seizures Stop: 12/15/18 15:29 Fluoxetine HCl (Prozac) 20 mg NG DAILY [facility] Stop: 12/16/18 08:59 Last Admin: 12/01/18 07:57 Dose: 20 mg Documented by: Acetaminophen (Ofirmev) 65 mls @ 200 mls/hr IV Q8H PRN PRN Reason: fever Stop: 12/15/18 14:48 Last Infusion: 11/27/18 07:45 Dose: Infused Documented by: Piperacillin Sod/Tazobactam (Sod 3.375 gm/ Dextrose) 115 mls @ 28.75 mls/hr IV Q8H [facility]; Protocol Stop: 12/01/18 15:59 Last Infusion: 12/01/18 12:13 Dose: Infused Documented by: Nitrofurantoin (Furadantin) 50 mg PEG DAILY [facility] Stop: 12/16/18 08:59 Last Admin: 12/01/18 07:59 Dose: 50 mg Documented by: Cetirizine 1mg/Ml: Non-Formulary Patient's Own Med 10 ea PEG DAILY [facility] Stop: 12/16/18 08:59 Last Admin: 12/01/18 07:58 Dose: 10 ml Documented by: Nutritional Formula (Patient's Own Enteral Feeding) 350 ml PEG 0700,1130,1500,1900 [facility] Stop: 12/16/18 11:29 Last Admin: 12/01/18 11:52 Dose: 350 ml Documented by: Polyethylene Glycol (Miralax Powder Packet) 8.5 gm PEG DAILY PRN PRN Reason: bowel regiment Last Admin: 11/20/18 16:47 Dose: 8.5 gm Documented by: Potassium Chloride (Elisabeth Ciel Elix) 20 meq PEG DAILY KENNEDY Stop: 12/22/18 08:59 Last Admin: 12/01/18 07:57 Dose: 20 meq Documented by: Sterile Water (Tube Feeding Water Flush) 1 ea PO QID@07,1129,,19 KENNEDY Stop: 12/15/18 14:59 Last Admin: 12/01/18 11:52 Dose: 1 ea Documented by: Trazodone HCl (Desyrel) 50 mg PEG HS KENNEDY Stop: 12/15/18 20:59 Last Admin: 11/30/18 20:17 Dose: 50 mg Documented by: Valproic Acid (Valproic Acid) 500 mg PO TID KENNEDY Stop: 12/16/18 13:59 Last Admin: 12/01/18 07:57 Dose: 500 mg Documented by: Zonisamide (Zonegran) 1 ea PO HS KENNEDY Stop: 12/15/18 20:59 Last Admin: 11/30/18 20:31 Dose: 1 ea Documented by: Zonisamide (Zonegran) 2 ea PO QAM KENNEDY Stop: 12/16/18 08:59 Last Admin: 12/01/18 07:58 Dose: 2 ea Documented by: PG Care Time/CCT Total # of Minutes Spent Total Time Spent with Patient: Total time spent is greater than 50% in coordination of care (as documented) at patient's floor/unit and/or counseling patient: Critical Care Time: Yes Resident Activity Tracking Resident Involvement: Resident Care Provided Care Provided: Adult Hospital Medicine
[2018-12-01] MEDS: PATIENT'S OWN ENTERAL FEEDING PEG SCH ×4 (08:01→19:54)
[2018-12-01] MEDS: TUBE FEEDING WATER FLUSH PO SCH ×4 (08:01→19:52)
[2018-12-01] MEDS: ACETYLCYSTEINE 10% INHAL SOLN 4 ML **DISPENSED BY RESP. INH SCH ×3 (11:15→19:19)
[2018-12-01] MEDS: TRAZODONE HCL 50 MG TAB PEG SCH (19:52)
[2018-12-01] MEDS: ZONISAMIDE 100 MG PO SCH (19:54)
--- NOTE | 2018-12-01 20:22 | Hospitalist Progress Note ---
Date of Service December 01, 2018 Assessment & Plan (1) Acute on chronic respiratory failure with hypoxia and hypercapnia: acute resp failure 2nd to left-sided pseudomonas pneumonia. treated with zosyn, day #16-17 of such. Abx d/c by critical care team today. s/p bronch x 7 this admission for removal of mucous plugs from left bronchial tree. most recent bronchoscopy was on 11/28. remains on trach collar during the day. continue night-time vent. defer night-time vent management to critical care staff. (2) Sepsis: 2nd to pneumonia. resolved. (3) Pneumonia: left-sided. 2nd to pseudomonas. day #16-17 of zosyn. per ID, Tobramycin nebs stopped as the pathogen is not fully sensitive to such. zosyn stopped by critical care team today. cont aggressive pulmonary toilet, mucomyst, etc (4) History of tracheostomy: chronic trach with night-time vent use at home. 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 at baseline is nonverbal, does not follow commands, is bed-bound. Trach/PEG in place. on baclofen, zonisamide, etc for contractures (6) Seizure disorder: had 30-second seizure 11/18/18. none since. depakote level therapeutic shortly after that seizure. (7) Thrombocytopenia: likely sepsis-associated. resolved. last CBC stable. (8) Status post insertion of percutaneous endoscopic gastrostomy (PEG) tube: tolerating tube feeds tube feeds are at goal no issues (9) Severely underweight adult: recommend adding MVI daily via PEG BMI 15 (10) DVT prophylaxis: SCDs in place will cont to follow dispo - home with HH (LTACH ruled out as option by report) Subjective no events overnight. remains vented at HS and trach collar during the day. no bronch performed today. antibiotics stopped. Review of Systems Review of Systems: Unobtainable due to cognitive status Physical Exam Constitutional: + thin, + language barrier (nonverbal ) and + frail appearing ENMT: Mouth: + oropharynx abnormality (cleft palate; no thrush present); oral mucous membranes not dry trach present, clean Respiratory: no respiratory distress and not tachypneic Auscultation: + diminished lung sounds (left base only); no crackles and no wheezes course breath sounds present b/l Cardiovascular: Rate/Rhythm: regular rhythm and + tachycardic Heart Sounds: normal S1 and normal S2; no murmur Vessels: posterior tibial pulses present and dorsalis pedis pulses present; no JVD Extremities: no edema Gastrointestinal (Abdomen): normal bowel sounds, soft, nontender, no hepatosplenomegaly PEG present; clean, intact Skin: no rashes, warm and dry + ecchymosis (left knee) Results & Data Vital Signs (Past 12 Hours) Vital Signs Temp Pulse Pulse Pulse Resp BP Pulse Ox 12/01/18 19:28 95 H 26 H 94 12/01/18 19:00 91 H 33 H 96/60 L 94 12/01/18 18:03 108 H 46 H 104/64 94 12/01/18 18:00 102 H 44 H 83 L 12/01/18 17:23 107 H 32 H 98/73 L 89 L 12/01/18 17:00 107 H 29 H 98/73 L 94 12/01/18 16:00 96 H 24 99/58 L 90 12/01/18 15:23 92 H 24 93 12/01/18 15:00 36.8 C 95 H 32 H 93/65 L 92 12/01/18 14:00 105 H 37 H 93/58 L 96 12/01/18 13:28 99 H 28 H 95 12/01/18 13:00 103 H 38 H 96/57 L 93 12/01/18 12:00 36.8 C 90 31 H 95/55 L 97 12/01/18 11:16 99 H 37 H 90/59 L 92 12/01/18 11:15 104 H 28 H 92 12/01/18 10:00 100 H 28 H 97/57 L 93 12/01/18 09:01 101 H 43 H 100/69 Laboratory Results Laboratory Results - last 24 hr 12/01/18 12/01/18 12/01/18 04:34 04:34 04:34 WBC 5.56 RBC 2.93 L Hgb 9.7 L Hct 29.7 L MCV 101.4 H MCH 33.1 MCHC 32.7 RDW Std Deviation 48.5 H RDW Coeff of [place]quito 13.3 Plt Count 153 MPV 8.9 Immature Gran % (Auto) 0.2 Neut % (Auto) 70.2 Lymph % (Auto) 18.9 [place] % (Auto) 7.4 Eos % (Auto) 3.1 Baso % (Auto) 0.2 Immature Gran # (Auto) 0.01 Neut # (Auto) 3.91 Lymph # (Auto) 1.05 L [place] # (Auto) 0.41 Eos # (Auto) 0.17 Baso # (Auto) 0.01 ESR 85 H Sodium 139 Potassium 3.6 Chloride 104 Carbon Dioxide 27 Anion Gap 8.0 BUN 5 L Creatinine 0.48 L Est Cr Clr Drug Dosing 126.2 Est GFR ( Amer) > 150.0 Est GFR (Non-Af Amer) 139.2 BUN/Creatinine Ratio 11.1 Glucose 86 Calcium 8.6 C-Reactive Protein 4.12 H PG Care Time/CCT Total # of Minutes Spent Total Time Spent with Patient: Total time spent is greater than 50% in coordination of care (as documented) at patient's floor/unit and/or counseling patient: (1) Sepsis Sepsis acute organ dysfunction status: unspecified Sepsis type: sepsis due to unspecified organism Qualified Code(s): A41.9 - Sepsis, unspecified organism (2) Pneumonia Laterality: left Lung location: lower lobe of lung Pneumonia type: due to unspecified organism Qualified Code(s): J18.1 - Lobar pneumonia, unspecified organism
--- NOTE | 2018-12-01 21:03 | Infectious Disease Progress Nt ---
Date of Service December 01, 2018 Assessment & Plan (1) Pneumonia: 23-year-old female with cystic fibrosis and chronic pseudomonal infection, some response to antibiotics,, but still with significant plugging requiring frequent bronchoscopies. Continue present antibiotics, await further culture results. Will follow. (2) Pseudomonas aeruginosa colonization: Subjective 23 yo F found in bed this AM in NAD. No reported overnight events. Doing well s/p bronch yesterday. No new issues. Case discussed with mother today. Remains vented at HS and trach collar during day. No other acute concerns or complaints. Physical Exam Constitutional: WD/WN, vitals as above comfortable; no acute distress Eyes: PERRL, conjunctivae normal, anicteric sclerae ENMT: external ear and nose normal, oropharynx normal Neck: trachea midline, no thyromegaly neck nontender Respiratory: normal percussion; no respiratory distress and does not use accessory muscles Auscultation: + rhonchi (Left-sided) Cardiovascular: RRR, no murmur, no edema Rate/Rhythm: regular rate and regular rhythm Heart Sounds: normal S1 and normal S2; no gallop, no murmur and no cardiac rub Vessels: normal peripheral pulses; no JVD Gastrointestinal (Abdomen): normal bowel sounds, soft, nontender, no hepatosplenomegaly Musculoskeletal: no cyanosis or clubbing, extremities motor strength 5/5 Head/Neck/Chest: normocephalic, head atraumatic and neck supple Spine: thoracic spine normal to inspection and lumbar spine normal to inspection; no cervical spinal tenderness Skin: no rashes, warm and dry normal turgor; no lesions Neurologic: moves all extremities and awake Psychiatric: A+Ox3, euthymic affect Lymphatic: no cervical or axillary lymphadenopathy no inguinal lymphadenopathy Results & Data Vital Signs (Past 12 Hours) Vital Signs Temp Pulse Pulse Pulse Resp BP Pulse Ox 12/01/18 19:28 95 H 26 H 94 12/01/18 19:00 91 H 33 H 96/60 L 94 12/01/18 18:03 108 H 46 H 104/64 94 12/01/18 18:00 102 H 44 H 83 L 12/01/18 17:23 107 H 32 H 98/73 L 89 L 12/01/18 17:00 107 H 29 H 98/73 L 94 12/01/18 16:00 96 H 24 99/58 L 90 10/09/19 15:23 92 H 24 93 12/01/18 15:00 36.8 C 95 H 32 H 93/65 L 92 12/01/18 14:00 105 H 37 H 93/58 L 96 12/01/18 13:28 99 H 28 H 95 12/01/18 13:00 103 H 38 H 96/57 L 93 12/01/18 12:00 36.8 C 90 31 H 95/55 L 97 12/01/18 11:16 99 H 37 H 90/59 L 92 12/01/18 11:15 104 H 28 H 92 12/01/18 10:00 100 H 28 H 97/57 L 93 Laboratory Results Short CBC 12/01/18 Range/Units 04:34 WBC 5.56 (4.8-10.8) K/uL Hgb 9.7 L (12.0-16.0) g/dL Hct 29.7 L (37-47) % Plt Count 153 (130-400) K/uL BMP 12/01/18 04:34 Sodium 139 Potassium 3.6 Chloride 104 Carbon Dioxide 27 BUN 5 L Creatinine 0.48 L Glucose 86 Calcium 8.6 Diagnostic Findings Microbiology 11/27/18 10:00 Bronch Wash,Left Lower Lobe Gram Stain - Final 11/27/18 10:00 Bronch Wash,Left Lower Lobe Bronchoalveolar Lavage Culture - Final Pseudomonas aeruginosa 11/15/18 17:09 Bronch Wash,Left Lower Lobe Fungal Smear - Final 11/15/18 17:09 Bronch Wash,Left Lower Lobe Fungal Culture - Preliminary No yeast or fungus isolated - Report 2, Additional report to follow. 11/27/18 10:00 Bronch Wash,Left Lower Lobe Acid Fast Bacilli Smear - Final 11/27/18 10:00 Bronch Wash,Left Lower Lobe Fungal Smear - Final 11/15/18 17:09 Bronch [place], Left Lower Lobe Acid Fast Bacilli Smear - Final 11/15/18 17:09 Bronch [place], Left Lower Lobe Acid Fast Bacilli Culture - Preliminary No Acid-Fast Bacilli Isolated - Report 1, Additional Report to Follow. 11/15/18 11:44 Blood Aerobic Blood Culture - Final No growth in Aerobic bottle after 5 days. 11/15/18 11:44 Blood Anaerobic Blood Culture - Final 11/18/18 10:11 Bronch Wash,Left Lower Lobe Gram Stain - Final 11/18/18 10:11 Bronch Wash,Left Lower Lobe Bronchoalveolar Lavage Culture - Final Pseudomonas aeruginosa 11/15/18 17:09 Bronch [place], Left Lower Lobe Gram Stain - Final 11/15/18 17:09 Bronch [place], Left Lower Lobe Bronchoalveolar Lavage Culture - Final Pseudomonas aeruginosa 11/15/18 11:48 Sputum,Trach Gram Stain - Final 11/15/18 11:48 Sputum,Trach Sputum Culture - Final Pseudomonas aeruginosa Service Date: 12/01/18 Fam Phy:Interpreting Phy: Galen Ham MD Admit Phy: Makayla Garcia DO Ordering Phy: Sebas Smyth DO cc: ~ XR chest 1V portable CLINICAL HISTORY: Shortness of breath. Abnormal chest x-ray. COMPARISON STUDY: 11/30/2018 FINDINGS: A tracheostomy tube is again visualized. The cardiac and mediastinal contours remain stable. There is persistent left lower lobe consolidation volume loss. There is improvement in the aeration of the right lung base. There is equivocal trace pleural fluid on the left. There is no pneumothorax.[ IMPRESSION: 1. Persistent left lower lobe consolidation and volume loss 2. Improving aeration of the right lung base. Electronically signed by: Galen Ham M.D. 12/01/2018 6:48 AM Dictated: 12/01/18646 Transcribed: 12/01/18646 PG Care Time/CCT Total # of Minutes Spent Total Time Spent with Patient: Total time spent is greater than 50% in coordination of care (as documented) at patient's floor/unit and/or counseling patient: (1) Pneumonia Laterality: left Lung location: lower lobe of lung Pneumonia type: due to unspecified organism Qualified Code(s): J18.1 - Lobar pneumonia, unspecified organism
[2018-12-02] MEDS: ALBUT/IPRATROP 3MG/0.5MG NEB 3 ML VIAL NEB SCH ×6 (04:18→23:22)
[2018-12-02] MEDS: TUBE FEEDING WATER FLUSH PO SCH ×4 (06:25→18:41)
[2018-12-02] MEDS: PATIENT'S OWN ENTERAL FEEDING PEG SCH ×4 (06:26→18:41)
[2018-12-02] MEDS: ACETYLCYSTEINE 10% INHAL SOLN 4 ML **DISPENSED BY RESP. INH SCH ×4 (07:08→19:34)
[2018-12-02] MEDS: BUDESONIDE 0.5 MG/2 ML VIAL (PULMICORT) INH SCH (07:08)
--- NOTE | 2018-12-02 07:13 | XRay Report ---
XR chest 1V portable CLINICAL HISTORY: Abnormal chest x-ray. PNEUMONIA COMPARISON STUDY: 12/01/2018 FINDINGS: Tracheostomy tube is again visualized. The cardiac and mediastinal contours are normal. The right lung is clear. There are persistent areas of left lower lobe consolidation.[This demonstrates minimal improvement. IMPRESSION: 1. Slight improvement in the left lower lung zone pulmonary consolidation 2. The right lung is clear Electronically signed by: Galen Ham M.D. 12/02/2018 7:12 AM
--- NOTE | 2018-12-02 07:56 | Critical Care Progress Note ---
Date of Service December 02, 2018 Assessment & Plan (1) Mucoid impaction of bronchi: Reason Critically Ill: High risk patient with tracheostomy with pneumonia NEURO H/O CP. Patient at baseline neuro status, unable to converse Patient with history of seizure disorder as well, will continue home medications Zonisamide, Depakote. Depakote level therapeutic this admission CV Patient tachycardic and blood pressures borderline Close to patient's baseline from previous admissions Will monitor and give fluid as needed PULM DC'd Zosyn for her MDR pseudomonas pneumonia 12/01. Completed 16 day course Procal normalized now. Airway Obstruction 2/2 acute mucoid obstruction in setting of chronic neuromuscular disease On ventilator at night oxygen requirement increased with copious phlegm No bronch today- CXR reviewed and improved Patient needs aggressive suctioning and CoughAssist QID Nebulized Mucomyst QID daily Before we can consider d/c, need at least 2-3 'good' days consecutively. This would be day 2. Mother states that Thursday d/c works best for her and that cough assist/nebs can only be done BID at home 2/2 ease. Over the weekend, we will switch to home regimen and see how pt does prior to d/c. Abd/GI Will continue home PEG tube feeds Nutrition on board- increase protein sarah ID Sputum culture and bronchial lavage growing pseudomonas, sensitive to zosyn D/C'd zosyn as above. Per ID recs, dc'd inhaled tobramycin 2/2 resistance Discussed pneumonia vaccination status with mother, she has been adequately vaccinated. She can either get a booster later this year or anytime in the next five for her PPSV vaccination. /RENAL Kidney function normal at baseline Heme Stable H/H, at baseline. No hematologic abnormality Blood draws to every other day as above LINES: PIV x1 DVT Prophylaxis: SCDs Conditional Code: Mech Vent only DISPO: ICU Supervising Physician Co-Signing Physician Notes Dr. Smyth was resident physician during care of patient. I separately evaluated patient for canales portions of the history and the exam. I was present during the critical portion of medical decision making, and I discussed the case with the resident. I generally agree with the findings and plan. Patient was discussed in multidisciplinary rounds as well as updated the patient's mother. Today the patient secretion burden appears to be increased again however we have at least gone 24 hours without a bronchoscopy for airway clearance. Her sats are downtrending 88-87 on 30% FiO2 supplemental oxygen so I will proceed with an additional bronchoscopy today. I would consider today to be day 2 of 3 with regards to stabilization/improvement. Given significant care requirements the patient cannot be discharged over the weekend as there is not provider presents at home for her to be safely discharged. If the patient stabilizes that tomorrow would be day 3 of 3, I would transition the patient at that time to her home ventilator and continue to ensure that the patient tolerates the level of care and support provided without having acute hypoxic respiratory failure or acute airway obstruction. Subjective 23 yo F found in bed this AM in NAD. No reported overnight events. No plan for bronch today. No new issues. Case discussed with mother today. She would like to switch to home regimen for nebs and cough assist (BID) moving forward as that is what she will do at home instead of QID, which is not feasible forher. Remains vented at HS and trach collar during day. No other acute concerns or complaints. Review of Systems Review of Systems: All systems reviewed & are unremarkable except as noted in HPI & below Physical Exam Constitutional: + thin Eyes: PERRL, conjunctivae normal, anicteric sclerae ENMT: external ear and nose normal, oropharynx normal Respiratory: decreased sounds L base Cardiovascular: RRR, no murmur, no edema Gastrointestinal (Abdomen): normal bowel sounds, soft, nontender, no hepatosplenomegaly Musculoskeletal: contractures UE/LE Skin: no rashes, warm and dry Psychiatric: CP Results & Data Vital Signs (Past 12 Hours) Vital Signs Temp Pulse Pulse Pulse Resp BP Pulse Ox 12/02/18 07:08 104 H 36 H 95 12/02/18 05:00 107 H 114/65 92 12/02/18 04:20 95 H 15 88 L 12/02/18 04:01 36.5 C 12/02/18 04:00 91 H 102/60 91 12/02/18 03:00 78 92/57 L 92 12/02/18 02:00 82 97/58 L 92 12/02/18 01:47 90 25 H 89 L 12/02/18 01:00 81 93/51 L 91 12/02/18 00:00 36.7 C 74 88/48 L 90 12/01/18 23:41 79 14 93 12/01/18 23:00 75 32 H 82/51 L 93 12/01/18 22:13 77 22 94 12/01/18 22:00 81 26 H 90/52 L 93 12/01/18 21:00 95 H 20 107/66 92 12/01/18 20:00 37.3 C 100 H 36 H 103/68 95 Laboratory Results Laboratory Results - last 24 hr 12/02/18 10:57 POC Glucose 77 Medications Administered Current Inpatient Medications Acetaminophen (Children's Acetaminophen) 320 mg PO Q4H PRN PRN Reason: Fever Stop: 12/19/18 14:33 Last Admin: 11/19/18 15:03 Dose: 320 mg Documented by: Acetylcysteine (Mucomyst 10%) 3 ml INH QIDR [facility] Stop: 12/31/18 10:59 Last Admin: 12/02/18 11:26 Dose: 3 ml Documented by: Albuterol (Duoneb) 3 ml NEB Q4R [facility] Stop: 12/15/18 14:59 Last Admin: 12/02/18 11:26 Dose: 3 ml Documented by: Albuterol (Ventolin 0.083% 2.5mg/3ml) 2.5 mg INH Q4H PRN PRN Reason: Wheezing/ shortness of breath Stop: 12/15/18 14:48 Last Admin: 11/27/18 03:35 Dose: 2.5 mg Documented by: Baclofen (Lioresal) 20 mg PO TID [facility] Stop: 12/15/18 15:29 Last Admin: 12/02/18 07:59 Dose: 20 mg Documented by: Budesonide (Pulmicort Respules) 0.5 mg INH BIDR [facility] Stop: 12/15/18 18:59 Last Admin: 12/02/18 07:08 Dose: 0.5 mg Documented by: Clonazepam (Klonopin) 0.5 mg PO DAILY PRN PRN Reason: seizures Stop: 12/15/18 15:29 Fluoxetine HCl (Prozac) 20 mg NG DAILY [facility] Stop: 12/16/18 08:59 Last Admin: 12/02/18 07:59 Dose: 20 mg Documented by: Acetaminophen (Ofirmev) 65 mls @ 200 mls/hr IV Q8H PRN PRN Reason: fever Stop: 12/15/18 14:48 Last Infusion: 11/27/18 07:45 Dose: Infused Documented by: Nitrofurantoin (Furadantin) 50 mg PEG DAILY [facility] Stop: 12/16/18 08:59 Last Admin: 12/02/18 07:59 Dose: 50 mg Documented by: Cetirizine 1mg/Ml: Non-Formulary Patient's Own Med 10 ea PEG DAILY [facility] Stop: 12/16/18 08:59 Last Admin: 12/02/18 08:00 Dose: 10 ml Documented by: Nutritional Formula (Patient's Own Enteral Feeding) 350 ml PEG 0700,1130,1500,1900 [facility] Stop: 12/16/18 11:29 Last Admin: 12/02/18 06:26 Dose: 350 ml Documented by: Polyethylene Glycol (Miralax Powder Packet) 8.5 gm PEG DAILY PRN PRN Reason: bowel regiment Last Admin: 11/20/18 16:47 Dose: 8.5 gm Documented by: Potassium Chloride (Elisabeth Ciel Elix) 20 meq PEG DAILY [facility] Stop: 12/22/18 08:59 Last Admin: 12/02/18 07:59 Dose: 20 meq Documented by: Sterile Water (Tube Feeding Water Flush) 1 ea PO QID@07,1130,15,19 [facility] Stop: 12/15/18 14:59 Last Admin: 12/02/18 06:25 Dose: 1 ea Documented by: Trazodone HCl (Desyrel) 50 mg PEG HS [facility] Stop: 12/15/18 20:59 Last Admin: 12/01/18 19:52 Dose: 50 mg Documented by: Valproic Acid (Valproic Acid) 500 mg PO TID [facility] Stop: 12/16/18 13:59 Last Admin: 12/02/18 07:59 Dose: 500 mg Documented by: Zonisamide (Zonegran) 1 ea PO HS [facility] Stop: 12/15/18 20:59 Last Admin: 12/01/18 19:54 Dose: 1 ea Documented by: Zonisamide (Zonegran) 2 ea PO QAM [facility] Stop: 12/16/18 08:59 Last Admin: 12/02/18 07:59 Dose: 2 ea Documented by: PG Care Time/CCT Total # of Minutes Spent Total Time Spent with Patient: Total time spent is greater than 50% in coordination of care (as documented) at patient's floor/unit and/or counseling patient: Critical Care Time: Yes Resident Activity Tracking Resident Involvement: Resident Care Provided Care Provided: Adult Hospital Medicine
[2018-12-02] MEDS: BACLOFEN 20 MG TAB PO SCH ×3 (07:59→20:57)
[2018-12-02] MEDS: VALPROIC ACID SOLN 500 MG/10 ML UDC PO SCH ×3 (07:59→20:57)
[2018-12-02] MEDS: FLUOXETINE HCL 20 MG/5 ML UDP NG SCH (07:59)
[2018-12-02] MEDS: POTASSIUM CHLORIDE 20 MEQ/15 ML UDC PEG SCH (07:59)
[2018-12-02] MEDS: NITROFURANTOIN 25 MG/5 ML PEG SCH (07:59)
[2018-12-02] MEDS: CETIRIZINE 1 MG/ML PEG SCH (08:00)
--- NOTE | 2018-12-02 13:46 | Procedure Note ---
Procedure Note: Bronchoscopy Procedure Procedure date: November 29, 2018 Procedure: fiberoptic bronchoscopy Pre-procedure indication: Recurrent mucoid impaction left lower lobe Post-procedure Diagnosis: same as above Prior to Procedure: Informed Consent: The risks, benefits, indications, potential complications, and alternatives were explained to the patient's mother and informed consent obtained. Attending Staff: Lavon Tariq DO Resident/APC: Not applicable Skin Prep: Not applicable Anesthesia: 1 mg Versed 50 mcg IV fentanyl x2 The identity of the patient was confirmed and a bedside time out was performed. Description of Procedure: Fiberoptic bronchoscopy was performed via endotracheal tube. Bronchioalveolar lavage right lower lobes and left lower lobes was performed performed. Findings included: Airways appear less erythematous, mucus impaction is pearly white, no brittni purulence noted. Less secretion burden than compared with previous bronchoscopies I have performed. Complications: None Specimens: None Estimated blood loss: Zero
--- NOTE | 2018-12-02 13:52 | Procedure Note ---
Procedure Note: Bronchoscopy Procedure Procedure date: November 30, 2018 Procedure: fiberoptic bronchoscopy Pre-procedure indication: Recurrent mucoid impactions causing acute airway obstruction, increasing FiO2 requirement Post-procedure Diagnosis: same as above Prior to Procedure: Informed Consent: The risks, benefits, indications, potential complications, and alternatives were explained to the patient's mother and informed consent obtained. Attending Staff: Lavon Tariq DO Resident/APC: [place] Skin Prep: Not applicable Anesthesia: 1 mg Versed, 100 mcg fentanyl The identity of the patient was confirmed and a bedside time out was performed. Description of Procedure: Fiberoptic bronchoscopy was performed via endotracheal tube. Bronchioalveolar lavage right lower and left lower lobes was performed. Findings included: Increase in secretion burden today, patient does appear to be mobilizing her secretions more however she appears to be in the postinflammatory hyper-secratory phase Complications: None Specimens: None Estimated blood loss: Zero
--- NOTE | 2018-12-02 19:39 | Hospitalist Progress Note ---
Date of Service December 02, 2018 Assessment & Plan (1) Acute on chronic respiratory failure with hypoxia and hypercapnia: acute resp failure 2nd to left-sided pseudomonas pneumonia. treated with zosyn - about 16-17 days of such - abx were d/c yesterday. s/p bronch x 10 this admission for removal of mucous plugs from left bronchial tree. most recent bronchoscopy was on 11/30. remains on trach collar during the day. continue night-time vent. defer night-time vent management to critical care staff. (2) Sepsis: 2nd to pneumonia. resolved. (3) Pneumonia: left-sided. 2nd to pseudomonas. abx stopped - had received about 16-17 days of zosyn. Tobramycin nebs stopped as the pathogen is not fully sensitive to such. cont aggressive pulmonary toilet, mucomyst, etc (4) History of tracheostomy: chronic trach with night-time vent use at home. 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 at baseline is nonverbal, does not follow commands, is bed-bound. Trach/PEG in place. on baclofen, zonisamide, etc for contractures (6) Seizure disorder: had 30-second seizure 11/18/18. none since. depakote level therapeutic shortly after that seizure. (7) Thrombocytopenia: likely sepsis-associated. resolved. last CBC stable. (8) Status post insertion of percutaneous endoscopic gastrostomy (PEG) tube: tolerating tube feeds tube feeds are at goal no issues (9) Severely underweight adult: recommend adding MVI daily via PEG BMI 15 (10) DVT prophylaxis: SCDs in place will cont to follow dispo - home with HH - Thursday? Thursday of this coming week? Subjective events of last 24 hours noted staff report thick secretions via trach but has remained stable on trach collar no bronch done today Review of Systems Review of Systems: Unobtainable due to cognitive status Physical Exam Constitutional: + thin, + language barrier (nonverbal ) and + frail appearing ENMT: Mouth: + oropharynx abnormality (cleft palate; no thrush present); oral mucous membranes not dry Respiratory: no respiratory distress and not tachypneic Auscultation: + diminished lung sounds (left base); no crackles and no wheezes course BS b/l worse on left Cardiovascular: Rate/Rhythm: regular rhythm and + tachycardic Heart Sounds: normal S1 and normal S2; no murmur Vessels: posterior tibial pulses present and dorsalis pedis pulses present; no JVD Extremities: no edema Gastrointestinal (Abdomen): normal bowel sounds, soft, nontender, no hepatosplenomegaly Skin: no rashes, warm and dry + ecchymosis (left knee - resolving) Neurologic: contractures x 4 extremities Results & Data Vital Signs (Past 12 Hours) Vital Signs Temp Pulse Pulse Resp BP Pulse Ox 12/02/18 18:00 111 H 41 H 102/63 91 12/02/18 17:00 120 H 36 H 102/62 91 12/02/18 16:00 37.4 C 104 H 26 H 106/64 92 12/02/18 15:00 106 H 110 H 41 H 105/68 91 12/02/18 14:00 105 H 33 H 97/62 L 86 L 12/02/18 13:00 103 H 38 H 114/67 92 12/02/18 12:25 36.7 C 106 H 40 H 105/58 L 92 12/02/18 11:00 103 H 16 101/54 L 91 12/02/18 10:00 108 H 33 H 104/57 L 91 12/02/18 09:00 105 H 38 H 86/53 L 87 L 12/02/18 08:00 36.8 C 110 H 40 H 91/63 L 91 Laboratory Results Laboratory Results - last 24 hr 12/02/18 10:57 POC Glucose 77 PG Care Time/CCT Total # of Minutes Spent Total Time Spent with Patient: Total time spent is greater than 50% in coordination of care (as documented) at patient's floor/unit and/or counseling patient: (1) Sepsis Sepsis acute organ dysfunction status: unspecified Sepsis type: sepsis due to unspecified organism Qualified Code(s): A41.9 - Sepsis, unspecified organism (2) Pneumonia Laterality: left Lung location: lower lobe of lung Pneumonia type: due to unspecified organism Qualified Code(s): J18.1 - Lobar pneumonia, unspecified organism
[2018-12-02] MEDS: TRAZODONE HCL 50 MG TAB PEG SCH (20:57)
[2018-12-02] MEDS: ZONISAMIDE 100 MG PO SCH (20:58)
--- NOTE | 2018-12-02 21:16 | Infectious Disease Progress Nt ---
Date of Service December 02, 2018 Assessment & Plan (1) Pneumonia: 23-year-old female with cystic fibrosis and chronic pseudomonal infection, some response to antibiotics,, but still with significant plugging requiring frequent bronchoscopies. Continue present antibiotics, await further culture results. Will follow. (2) Pseudomonas aeruginosa colonization: Subjective Patient seen in follow-up for respiratory failure pneumonia in the setting of cystic fibrosis. No reported overnight events. No plan for bronch today. No new issues. Case discussed with mother today. She would like to switch to home regimen for nebs and cough assist (BID) moving forward as that is what she will do at home instead of QID, which is not feasible forher. Remains vented at HS and trach collar during day. No other acute concerns or complaints. Review of Systems Review of Systems: Unobtainable due to cognitive status Physical Exam Constitutional: WD/WN, vitals as above comfortable; no acute distress Eyes: PERRL, conjunctivae normal, anicteric sclerae ENMT: external ear and nose normal, oropharynx normal Neck: trachea midline, no thyromegaly neck nontender Respiratory: normal percussion; no respiratory distress and does not use accessory muscles Auscultation: + rhonchi (Left-sided) Cardiovascular: RRR, no murmur, no edema Rate/Rhythm: regular rate and regular rhythm Heart Sounds: normal S1 and normal S2; no gallop, no murmur and no cardiac rub Vessels: normal peripheral pulses; no JVD Gastrointestinal (Abdomen): normal bowel sounds, soft, nontender, no hepatosplenomegaly Musculoskeletal: no cyanosis or clubbing, extremities motor strength 5/5 Head/Neck/Chest: normocephalic, head atraumatic and neck supple Spine: thoracic spine normal to inspection and lumbar spine normal to inspection; no cervical spinal tenderness Skin: no rashes, warm and dry normal turgor; no lesions Neurologic: moves all extremities and awake Psychiatric: A+Ox3, euthymic affect Lymphatic: no cervical or axillary lymphadenopathy no inguinal lymphadenopathy Results & Data Vital Signs (Past 12 Hours) Vital Signs Temp Pulse Pulse Pulse Pulse Resp BP 12/02/18 21:06 36 H 12/02/18 20:00 109 H 109 H 109 H 38 H 12/02/18 19:34 110 H 20 12/02/18 19:00 114 H 114 H 114 H 47 H 12/02/18 18:00 111 H 41 H 102/63 12/02/18 17:00 120 H 36 H 102/62 12/02/18 16:00 37.4 C 104 H 26 H 106/64 12/02/18 15:00 106 H 110 H 41 H 105/68 12/02/18 14:00 105 H 33 H 97/62 L 12/02/18 13:00 103 H 38 H 114/67 12/02/18 12:25 36.7 C 106 H 40 H 105/58 L 12/02/18 11:00 103 H 16 101/54 L 12/02/18 10:00 108 H 33 H 104/57 L BP Pulse Ox 12/02/18 21:06 12/02/18 20:00 102/58 L 85 L 12/02/18 19:34 88 L 12/02/18 19:00 107/66 87 L 12/02/18 18:00 91 12/02/18 17:00 91 12/02/18 16:00 92 12/02/18 15:00 91 12/02/18 14:00 86 L 12/02/18 13:00 92 12/02/18 12:25 92 12/02/18 11:00 91 12/02/18 10:00 91 Laboratory Results Laboratory Results - last 48 hr 12/01/18 12/01/18 12/01/18 04:34 04:34 04:34 WBC 5.56 RBC 2.93 L Hgb 9.7 L Hct 29.7 L MCV 101.4 H MCH 33.1 MCHC 32.7 RDW Std Deviation 48.5 H RDW Coeff of [place] 13.3 Plt Count 153 MPV 8.9 Immature Gran % (Auto) 0.2 Neut % (Auto) 70.2 Lymph % (Auto) 18.9 [place] % (Auto) 7.4 Eos % (Auto) 3.1 Baso % (Auto) 0.2 Immature Gran # (Auto) 0.01 Neut # (Auto) 3.91 Lymph # (Auto) 1.05 L [place] # (Auto) 0.41 Eos # (Auto) 0.17 Baso # (Auto) 0.01 ESR 85 H Sodium 139 Potassium 3.6 Chloride 104 Carbon Dioxide 27 Anion Gap 8.0 BUN 5 L Creatinine 0.48 L Est Cr Clr Drug Dosing 126.2 Est GFR ( Amer) > 150.0 Est GFR (Non-Af Amer) 139.2 BUN/Creatinine Ratio 11.1 Glucose 86 POC Glucose Calcium 8.6 C-Reactive Protein 4.12 H 12/02/18 10:57 WBC RBC Hgb Hct MCV MCH MCHC RDW Std Deviation RDW Coeff of [place] Plt Count MPV Immature Gran % (Auto) Neut % (Auto) Lymph % (Auto) [place] % (Auto) Eos % (Auto) Baso % (Auto) Immature Gran # (Auto) Neut # (Auto) Lymph # (Auto) [place] # (Auto) Eos # (Auto) Baso # (Auto) ESR Sodium Potassium Chloride Carbon Dioxide Anion Gap BUN Creatinine Est Cr Clr Drug Dosing Est GFR ( Amer) Est GFR (Non-Af Amer) BUN/Creatinine Ratio Glucose POC Glucose 77 Calcium C-Reactive Protein Diagnostic Findings Microbiology 11/27/18 10:00 Bronch Wash,Left Lower Lobe Gram Stain - Final 11/27/18 10:00 Bronch Wash,Left Lower Lobe Bronchoalveolar Lavage Culture - Final Pseudomonas aeruginosa 11/15/18 17:09 Bronch Wash,Left Lower Lobe Fungal Smear - Final 11/15/18 17:09 Bronch Wash,Left Lower Lobe Fungal Culture - Preliminary No yeast or fungus isolated - Report 2, Additional report to follow. 11/27/18 10:00 Bronch Wash,Left Lower Lobe Acid Fast Bacilli Smear - Final 11/27/18 10:00 Bronch Wash,Left Lower Lobe Fungal Smear - Final 11/15/18 17:09 Bronch [place], Left Lower Lobe Acid Fast Bacilli Smear - Final 11/15/18 17:09 Bronch [place], Left Lower Lobe Acid Fast Bacilli Culture - Preliminary No Acid-Fast Bacilli Isolated - Report 1, Additional Report to Follow. 11/15/18 11:44 Blood Aerobic Blood Culture - Final No growth in Aerobic bottle after 5 days. 11/15/18 11:44 Blood Anaerobic Blood Culture - Final 11/18/18 10:11 Bronch Wash,Left Lower Lobe Gram Stain - Final 11/18/18 10:11 Bronch Wash,Left Lower Lobe Bronchoalveolar Lavage Culture - Final Pseudomonas aeruginosa 11/15/18 17:09 Bronch [place], Left Lower Lobe Gram Stain - Final 11/15/18 17:09 Bronch [place], Left Lower Lobe Bronchoalveolar Lavage Culture - Final Pseudomonas aeruginosa 11/15/18 11:48 Sputum,Trach Gram Stain - Final 11/15/18 11:48 Sputum,Trach Sputum Culture - Final Pseudomonas aeruginosa XR chest 1V portable CLINICAL HISTORY: Abnormal chest x-ray. PNEUMONIA COMPARISON STUDY: 12/01/2018 FINDINGS: Tracheostomy tube is again visualized. The cardiac and mediastinal contours are normal. The right lung is clear. There are persistent areas of left lower lobe consolidation.[This demonstrates minimal improvement. IMPRESSION: 1. Slight improvement in the left lower lung zone pulmonary consolidation 2. The right lung is clear Electronically signed by: Galen Ham M.D. 12/02/2018 7:12 AM PG Care Time/CCT Total # of Minutes Spent Total Time Spent with Patient: Total time spent is greater than 50% in coordination of care (as documented) at patient's floor/unit and/or counseling patient: (1) Pneumonia Laterality: left Lung location: lower lobe of lung Pneumonia type: due to unspecified organism Qualified Code(s): J18.1 - Lobar pneumonia, unspecified organism
[2018-12-02] MEDS ORDERED: fentaNYL citrate 100 MCG/2 ML VIAL IV STA (21:17)
[2018-12-02] MEDS ORDERED: MIDAZOLAM HCL 5 MG/ML 1 ML VIAL IV STA (21:23)
[2018-12-02] MEDS ORDERED: fentaNYL citrate 100 MCG/2 ML VIAL ONE (21:26)
[2018-12-02] MEDS ORDERED: MIDAZOLAM HCL 1 MG/ML 2ML VIAL ONE (21:27)
[2018-12-03] MEDS: ALBUT/IPRATROP 3MG/0.5MG NEB 3 ML VIAL NEB SCH ×6 (03:06→23:27)
--- NOTE | 2018-12-03 04:02 | Procedure Note ---
Procedure Note Date of Service December 02, 2018 Coding
[2018-12-03 04:48] LABS: Basophils # (auto) 0.01 K/uL (0-0.2); Basophils % (auto) 0.1 %; Hematocrit (blood only) 31.9 % (37-47); Hemoglobin 10.5 g/dL (12.0-16.0); Immature Granulocytes # (auto) 0.03 K/uL (0.00-0.02); Immature Granulocytes % (auto) 0.3 %; Lymphocytes # (auto) 1.32 K/uL (1.2-3.4); Lymphocytes % (auto) 13.5 %; Mean Corpuscular Hemoglobin 33.4 pg (25-34); Mean Corpuscular Hgb Conc 32.9 g/dL (32-36); Mean Corpuscular Volume 101.6 fL (80-100); Mean Platelet Volume 8.7 fL (7.4-10.4); Monocytes # (auto) 0.73 K/uL (0.11-0.59); Monocytes % (auto) 7.5 %; Neutrophils # (auto) 7.56 K/uL (1.4-6.5); Neutrophils % (auto) 77.6 %; Platelet Count 163 K/uL (130-400); RDW Coefficient of Variation 13.7 % (11.5-14.5); RDW Standard Deviation 49.8 fL (36.4-46.3); Red Blood Count 3.14 M/uL (4.2-5.4); White Blood Count 9.75 K/uL (4.8-10.8)
[2018-12-03 05:08] LABS: BUN Creatinine Ratio 31.9 (10-20); Blood Urea Nitrogen 14 mg/dl (7-18); Calcium 8.9 mg/dl (8.5-10.1); Carbon Dioxide 25 mmol/L (21-32); Chloride 104 mmol/L (98-107); Creatinine Clr Calc Pharmacy 136.8 ml/min; Est GFR (African American) > 150.0; Est GFR (Non-African American) 142.2; Glucose 83 mg/dl (70-99); Potassium 3.8 mmol/L (3.5-5.1); Sodium 136 mmol/L (136-145)
[2018-12-03] MEDS: SODIUM CHLORIDE 0.9% 1000ML 1,000 ML IV SCH (06:07)
[2018-12-03] MEDS: TUBE FEEDING WATER FLUSH PO SCH ×4 (06:53→20:00)
[2018-12-03] MEDS: PATIENT'S OWN ENTERAL FEEDING PEG SCH ×4 (06:53→19:00)
[2018-12-03] MEDS: BUDESONIDE 0.5 MG/2 ML VIAL (PULMICORT) INH SCH ×3 (07:07→18:50)
--- NOTE | 2018-12-03 07:12 | XRay Report ---
SINGLE VIEW CHEST CLINICAL HISTORY: Status post bronchoscopy. FINDINGS: An AP, portable, upright chest radiograph is compared to study dated 12/02/2018. The examin ation is significantly degraded by portable technique and patient rotation. A tracheostomy is unchang ed in position. The cardiomediastinal silhouette is unremarkable. Airspace consolidation is again see n at the left lung base. There is a small left pleural effusion. The right lung appears clear noting minimal bibasilar atelectasis. No pneumothorax is seen. The skeletal structures are osteopenic. The b tiffanie thorax is grossly intact. IMPRESSION: 1. Airspace consolidation is again seen at the left lung base with a trace left pleural effusion. 2. No pneumothorax is identified post procedure. Electronically signed by: Wily Nowak M.D. 12/03/2018 7:10 AM
[2018-12-03] MEDS: ACETYLCYSTEINE 10% INHAL SOLN 4 ML **DISPENSED BY RESP. INH SCH ×4 (07:20→18:50)
[2018-12-03] MEDS: POTASSIUM CHLORIDE 20 MEQ/15 ML UDC PEG SCH (07:20)
[2018-12-03] MEDS: BACLOFEN 20 MG TAB PO SCH ×3 (07:20→22:56)
[2018-12-03] MEDS: FLUOXETINE HCL 20 MG/5 ML UDP NG SCH (07:20)
[2018-12-03] MEDS: VALPROIC ACID SOLN 500 MG/10 ML UDC PO SCH ×3 (07:20→22:57)
[2018-12-03] MEDS: CETIRIZINE 1 MG/ML PEG SCH (07:21)
[2018-12-03] MEDS: NITROFURANTOIN 25 MG/5 ML PEG SCH (07:21)
--- NOTE | 2018-12-03 08:42 | Critical Care Progress Note ---
Date of Service December 03, 2018 Assessment & Plan (1) Mucoid impaction of bronchi: Reason Critically Ill: High risk patient with tracheostomy with pneumonia NEURO H/O CP. Patient at baseline neuro status, unable to converse Patient with history of seizure disorder as well, will continue home medications Zonisamide, Depakote. Depakote level therapeutic this admission CV Patient tachycardic and blood pressures borderline Close to patient's baseline from previous admissions Will monitor and give fluid as needed PULM DC'd Zosyn for her MDR pseudomonas pneumonia 12/01. Completed 16 day course Procal normalized now. Airway Obstruction 2/2 acute mucoid obstruction in setting of chronic neuromuscular disease On ventilator at night oxygen requirement increased with copious phlegm Bronch overnight- CXR reviewed Patient needs aggressive suctioning and CoughAssist QID Nebulized Mucomyst QID daily Before we can consider d/c, need at least 2-3 'good' days consecutively. This would be day 3. Mother states that Thursday d/c works best for her and that cough assist/nebs can only be done TID at home 2/2 ease. Over the weekend, we will switch to home vent/regimen and see how pt does prior to d/c. Abd/GI Will continue home PEG tube feeds Nutrition on board- increase protein sarah ID Sputum culture and bronchial lavage growing pseudomonas, sensitive to zosyn D/C'd zosyn as above. Per ID recs, dc'd inhaled tobramycin 2/2 resistance Discussed pneumonia vaccination status with mother, she has been adequately vaccinated. She can either get a booster later this year or anytime in the next five for her PPSV vaccination. /RENAL Kidney function normal at baseline Heme Stable H/H, at baseline. No hematologic abnormality Blood draws to every other day as above LINES: PIV x1 DVT Prophylaxis: SCDs Conditional Code: [facility] Vent only DISPO: ICU Supervising Physician Co-Signing Physician Notes Dr. Smyth was resident physician during care of patient. I separately evaluated patient for canales portions of the history and the exam. I was present during the critical portion of medical decision making, and I discussed the case with the resident. I generally agree with the findings and plan. Patient was discussed in multidisciplinary rounds as well. Patient's status mildly improved today with higher oxygen saturation on 30% supplemental oxygen. I would consider to be day 3 of 3, we will proceed with 2 days on the patient's home ventilator with mildly increased activity in terms of cough assist and nebulizer treatment. Again I believe the patient is in end- stage terminal condition with regards to neuromuscular disease leading to mucoid impaction and that presents persistent threat of life-threatening airway obstruction and acute hypoxic respiratory failure. Positive pressure ventilation is marginally helpful, unfortunately it is more difficult for her to clear her secretions while on positive pressure ventilation. She is currently positively ventilated at night however she is the patient does not tolerate 24 hours of mechanical ventilation and is unable to tolerate it continuously. We will continue off antibiotics at this time. Her mother discussed additional protein supplementation options. Patient remains critically ill. Subjective 23 yo F found in bed this AM in NAD. Overnight pt with sats in 80s, bronch performed with mucous plugging removed. Sating well s/p bronch. No new issues. Case discussed with mother today. Remains vented at HS and trach collar during day. No other acute concerns or complaints. Review of Systems Review of Systems: All systems reviewed & are unremarkable except as noted in HPI & below Physical Exam Constitutional: + thin Eyes: PERRL, conjunctivae normal, anicteric sclerae ENMT: external ear and nose normal, oropharynx normal Respiratory: decreased sounds L base Cardiovascular: RRR, no murmur, no edema Gastrointestinal (Abdomen): normal bowel sounds, soft, nontender, no hepatosplenomegaly Musculoskeletal: contractures UE/LE Skin: no rashes, warm and dry Results & Data Vital Signs (Past 12 Hours) Vital Signs Temp Pulse Pulse Pulse Pulse Resp BP 12/03/18 07:07 93 H 36 H 12/03/18 06:00 97 H 97 H 97 H 31 H 12/03/18 05:00 107 H 107 H 107 H 33 H 12/03/18 04:00 36.8 C 105 H 105 H 105 H 22 12/03/18 03:00 93 H 93 H 93 H 38 H 12/03/18 02:15 99 H 18 12/03/18 02:00 105 H 24 124/76 12/03/18 01:00 102 H 102 H 102 H 33 H 12/02/18 23:25 102 H 28 H 12/02/18 23:00 90 90 90 20 12/02/18 21:55 111 H 24 12/02/18 21:50 118 H 22 12/02/18 21:45 125 H 23 12/02/18 21:40 115 H 28 H 12/02/18 21:35 125 H 35 H 12/02/18 21:30 113 H 30 H 12/02/18 21:06 36 H 12/02/18 21:00 114 H 22 115/69 BP Pulse Ox 12/03/18 07:07 93 12/03/18 06:00 88/46 L 12/03/18 05:00 119/78 85 L 12/03/18 04:00 98/65 L 94 12/03/18 03:00 92/55 L 95 12/03/18 02:15 93 12/03/18 02:00 92 12/03/18 01:00 107/57 L 94 12/02/18 23:25 93 12/02/18 23:00 95/52 L 94 12/02/18 21:55 101/56 L 95 12/02/18 21:50 97/64 L 94 12/02/18 21:45 117/72 96 12/02/18 21:40 126/72 97 12/02/18 21:35 113/91 94 12/02/18 21:30 124/58 L 93 12/02/18 21:06 12/02/18 21:00 90 Laboratory Results Laboratory Results - last 24 hr 12/03/18 12/03/18 04:36 04:36 WBC 9.75 RBC 3.14 L Hgb 10.5 L Hct 31.9 L MCV 101.6 H MCH 33.4 MCHC 32.9 RDW Std Deviation 49.8 H RDW Coeff of Flaquito 13.7 Plt Count 163 MPV 8.7 Immature Gran % (Auto) 0.3 Neut % (Auto) 77.6 Lymph % (Auto) 13.5 [place] % (Auto) 7.5 Eos % (Auto) 1.0 Baso % (Auto) 0.1 Immature Gran # (Auto) 0.03 H Neut # (Auto) 7.56 H Lymph # (Auto) 1.32 [place] # (Auto) 0.73 H Eos # (Auto) 0.10 Baso # (Auto) 0.01 Sodium 136 Potassium 3.8 Chloride 104 Carbon Dioxide 25 Anion Gap 7.0 BUN 14 Creatinine 0.45 L Est Cr Clr Drug Dosing 136.8 Est GFR ( Amer) > 150.0 Est GFR (Non-Af Amer) 142.2 BUN/Creatinine Ratio 31.9 H Glucose 83 Calcium 8.9 Medications Administered Current Inpatient Medications Acetaminophen (Children's Acetaminophen) 320 mg PO Q4H PRN PRN Reason: Fever Stop: 12/19/18 14:33 Last Admin: 11/19/18 15:03 Dose: 320 mg Documented by: Acetylcysteine (Mucomyst 10%) 3 ml INH QIDR KENNEDY Stop: 12/31/18 10:59 Last Admin: 12/03/18 11:04 Dose: 3 ml Documented by: Albuterol (Duoneb) 3 ml NEB Q4R KENNEDY Stop: 12/15/18 14:59 Last Admin: 12/03/18 11:04 Dose: 3 ml Documented by: Albuterol (Ventolin 0.083% 2.5mg/3ml) 2.5 mg INH Q4H PRN PRN Reason: Wheezing/ shortness of breath Stop: 12/15/18 14:48 Last Admin: 11/27/18 03:35 Dose: 2.5 mg Documented by: Baclofen (Lioresal) 20 mg PO TID K[facility]Y Stop: 12/15/18 15:29 Last Admin: 12/03/18 07:20 Dose: 20 mg Documented by: Budesonide (Pulmicort Respules) 0.5 mg INH BIDR [facility] Stop: 12/15/18 18:59 Last Admin: 12/03/18 07:07 Dose: 0.5 mg Documented by: Clonazepam (Klonopin) 0.5 mg PO DAILY PRN PRN Reason: seizures Stop: 12/15/18 15:29 Fluoxetine HCl (Prozac) 20 mg NG DAILY K[facility]Y Stop: 12/16/18 08:59 Last Admin: 12/03/18 07:20 Dose: 20 mg Documented by: Acetaminophen (Ofirmev) 65 mls @ 200 mls/hr IV Q8H PRN PRN Reason: fever Stop: 12/15/18 14:48 Last Infusion: 11/27/18 07:45 Dose: Infused Documented by: Sodium Chloride (Nss 1000ml) 1,000 mls @ 20 mls/hr IV .Q24H K[facility]Y Stop: 01/02/19 04:29 Last Admin: 12/03/18 06:07 Dose: 20 mls/hr Documented by: Parenteral Electrolytes (Normosol-R) 1,000 mls @ 999 mls/hr IV .Q1H1M ONE Stop: 12/03/18 13:53 Nitrofurantoin (Furadantin) 50 mg PEG DAILY K[facility]Y Stop: 12/16/18 08:59 Last Admin: 12/03/18 07:21 Dose: 50 mg Documented by: Cetirizine 1mg/Ml: Non-Formulary Patient's Own Med 10 ea PEG DAILY KENNEDY Stop: 12/16/18 08:59 Last Admin: 12/03/18 07:21 Dose: 10 ml Documented by: Nutritional Formula (Patient's Own Enteral Feeding) 350 ml PEG 0700,1130,1500,1900 KENNEDY Stop: 12/16/18 11:29 Last Admin: 12/03/18 12:00 Dose: 350 ml Documented by: Polyethylene Glycol (Miralax Powder Packet) 8.5 gm PEG DAILY PRN PRN Reason: bowel regiment Last Admin: 11/20/18 16:47 Dose: 8.5 gm Documented by: Potassium Chloride (Elisabeth Ciel Elix) 20 meq PEG DAILY KENN[facility]Y Stop: 12/22/18 08:59 Last Admin: 12/03/18 07:20 Dose: 20 meq Documented by: Sterile Water (Tube Feeding Water Flush) 1 ea PO QID@07,1130,15,19 KENNEDY Stop: 12/15/18 14:59 Last Admin: 12/03/18 12:00 Dose: 1 ea Documented by: Trazodone HCl (Desyrel) 50 mg PEG HS KENNEDY Stop: 12/15/18 20:59 Last Admin: 12/02/18 20:57 Dose: 50 mg Documented by: Valproic Acid (Valproic Acid) 500 mg PO TID KENNEDY Stop: 12/16/18 13:59 Last Admin: 12/03/18 07:20 Dose: 500 mg Documented by: Zonisamide (Zonegran) 1 ea PO HS KENNEDY Stop: 12/15/18 20:59 Last Admin: 12/02/18 20:58 Dose: 1 ea Documented by: Zonisamide (Zonegran) 2 ea PO QAM KENNEDY Stop: 12/16/18 08:59 Last Admin: 12/03/18 07:20 Dose: 2 ea Documented by: PG Care Time/CCT Total # of Minutes Spent Total Time Spent with Patient: Total time spent is greater than 50% in coordination of care (as documented) at patient's floor/unit and/or counseling patient: Critical Care Time: Yes Total Critical Care Time: 30 Resident Activity Tracking Resident Involvement: Resident Care Provided Care Provided: Adult Hospital Medicine
[2018-12-03] MEDS ORDERED: NORMOSOL-R 1,000 ML IV ONE (12:53)
--- NOTE | 2018-12-03 17:31 | Procedure Note ---
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 Patient was desaturating into the low 80% Attending Staff: Lavon Tariq DO Resident/APC: Rosanna VALENCIA Skin Prep: Not applicable Anesthesia: 1 mg Versed, 50 mcg fentanyl The identity of the patient was confirmed and a bedside time out was performed. Description of Procedure: Fiberoptic bronchoscopy was performed via endotracheal tube. Bronchioalveolar lavage right lower lobe and left lower lobes was performed. Findings included: Recurrent mucoid impaction largely in the left lower lobe, secretion burden does appear to be mildly decreasing, airways are largely unremarkable. Complications: None Specimens: Bronchial washings sent for culture and Gram stain, cytology, fungal elements, and AFB stain and culture. Estimated blood loss: Zero
--- NOTE | 2018-12-03 20:47 | Hospitalist Progress Note ---
Date of Service December 03, 2018 Assessment & Plan (1) Acute on chronic respiratory failure with hypoxia and hypercapnia: acute resp failure 2nd to left-sided pseudomonas pneumonia. acute component resolved. treated with zosyn - about 16-17 days of such - abx were d/c mid-week this week. s/p bronch x 11 this admission for removal of mucous plugs from left bronchial tree. most recent bronchoscopy was on 12/02. remains on trach collar during the day. continue night-time vent. defer night-time vent management to critical care staff. to be switched to home vent this weekend in preparation for discharge home this coming Thursday. (2) Sepsis: 2nd to pneumonia. resolved. (3) Pneumonia: left-sided. 2nd to pseudomonas. abx stopped - had received about 16-17 days of zosyn. Tobramycin nebs stopped as the pathogen is not fully sensitive to such. cont aggressive pulmonary toilet, mucomyst, etc to transition to home night-time vent this . (4) History of tracheostomy: chronic trach with night-time vent use at home. 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 at baseline is nonverbal, does not follow commands, is bed-bound. Trach/PEG in place. on baclofen, zonisamide, etc for contractures (6) Seizure disorder: had 30-second seizure 11/18/18. none since. depakote level therapeutic shortly after that seizure. cont meds as is. (7) Thrombocytopenia: likely sepsis-associated. resolved. last CBC stable. (8) Status post insertion of percutaneous endoscopic gastrostomy (PEG) tube: tolerating tube feeds tube feeds are at goal no issues (9) Severely underweight adult: recommend adding MVI daily via PEG BMI 15 (10) DVT prophylaxis: SCDs in place d/c to home hopefully this coming Thursday father updated at bedside no otitis externa seen on exam today after repositioning by pt's father and nursing staff the patient was more comfortable Subjective during my bedside rounds the pt's father was visiting. nursing was present as well. apparently Selvin had been uncomfortable for several minutes before my visit. nurse had also noted drainage from her ears. she remains off the vent and on trach collar. today had been a "good" day in the sense her breathing had been calm and her O2 sats were stable. Review of Systems Review of Systems: Unobtainable due to cognitive status Physical Exam Constitutional: + thin, + language barrier (nonverbal ) and + frail appearing looks uncomfortable today ENMT: Ears: + external ear abnormality (copious cerumen both ears but no otitis externa ); no TM abnormality Mouth: + oropharynx abnormality (cleft palate; no thrush present); oral mucous membranes not dry Respiratory: no respiratory distress and not tachypneic Auscultation: + diminished lung sounds (left base); no crackles and no wheezes Cardiovascular: Rate/Rhythm: regular rhythm and + tachycardic Heart Sounds: normal S1 and normal S2; no murmur Vessels: posterior tibial pulses present and dorsalis pedis pulses present; no JVD Extremities: no edema Gastrointestinal (Abdomen): normal bowel sounds, soft, nontender, no hepatosplenomegaly PEG tube clean Musculoskeletal: no obvious musculoskeletal pain with passive ROM of all 4 limbs Skin: no rashes, warm and dry + ecchymosis (left knee - resolving) Neurologic: contractures all 4 limbs Results & Data Vital Signs (Past 12 Hours) Vital Signs Pulse Pulse Pulse Resp BP BP Pulse Ox 12/03/18 19:02 89 26 H 98 12/03/18 18:00 91 H 23 105/64 95 12/03/18 17:00 92 H 19 102/62 96 12/03/18 16:02 96 H 17 89/60 L 95 12/03/18 16:00 88 19 89/60 L 97 12/03/18 15:54 98 H 26 H 12/03/18 15:00 84 36 H 87/54 L 94 12/03/18 14:50 80 36 H 92/54 L 95 12/03/18 14:00 77 34 H 95/61 L 96 12/03/18 13:40 73 24 92/54 L 92 12/03/18 13:16 77 18 92/62 L 98 12/03/18 13:00 90 21 82/55 L 99 12/03/18 12:10 87 25 H 83/52 L 97 12/03/18 12:09 88 18 74/52 L 97 12/03/18 12:08 85 30 H 74/49 L 96 12/03/18 12:00 89 27 H 80/48 L 95 12/03/18 11:04 85 94 H 28 H 30 L 12/03/18 11:00 89 24 84/46 L 94 12/03/18 10:00 88 32 H 84/52 L 96 12/03/18 09:00 93 H 33 H 92/52 L 91 Laboratory Results Laboratory Results - last 24 hr 12/03/18 12/03/18 04:36 04:36 WBC 9.75 RBC 3.14 L Hgb 10.5 L Hct 31.9 L MCV 101.6 H MCH 33.4 MCHC 32.9 RDW Std Deviation 49.8 H RDW Coeff of Flaquito 13.7 Plt Count 163 MPV 8.7 Immature Gran % (Auto) 0.3 Neut % (Auto) 77.6 Lymph % (Auto) 13.5 [place] % (Auto) 7.5 Eos % (Auto) 1.0 Baso % (Auto) 0.1 Immature Gran # (Auto) 0.03 H Neut # (Auto) 7.56 H Lymph # (Auto) 1.32 [place] # (Auto) 0.73 H Eos # (Auto) 0.10 Baso # (Auto) 0.01 Sodium 136 Potassium 3.8 Chloride 104 Carbon Dioxide 25 Anion Gap 7.0 BUN 14 Creatinine 0.45 L Est Cr Clr Drug Dosing 136.8 Est GFR ( Amer) > 150.0 Est GFR (Non-Af Amer) 142.2 BUN/Creatinine Ratio 31.9 H Glucose 83 Calcium 8.9 PG Care Time/CCT Total # of Minutes Spent Total Time Spent with Patient: Total time spent is greater than 50% in coordination of care (as documented) at patient's floor/unit and/or counseling patient: (1) Sepsis Sepsis acute organ dysfunction status: unspecified Sepsis type: sepsis due to unspecified organism Qualified Code(s): A41.9 - Sepsis, unspecified organism (2) Pneumonia Laterality: left Lung location: lower lobe of lung Pneumonia type: due to unspecified organism Qualified Code(s): J18.1 - Lobar pneumonia, unspecified organism
[2018-12-03] MEDS: TRAZODONE HCL 50 MG TAB PEG SCH (22:55)
[2018-12-03] MEDS: ZONISAMIDE 100 MG PO SCH (22:57)
[2018-12-04] MEDS: ALBUT/IPRATROP 3MG/0.5MG NEB 3 ML VIAL NEB SCH ×6 (03:18→23:04)
[2018-12-04 05:00] LABS: BUN Creatinine Ratio 28.3 (10-20); Blood Urea Nitrogen 10 mg/dl (7-18); Calcium 8.6 mg/dl (8.5-10.1); Carbon Dioxide 25 mmol/L (21-32); Chloride 108 mmol/L (98-107); Creatinine Clr Calc Pharmacy 181.1 ml/min; Est GFR (African American) > 150.0; Est GFR (Non-African American) > 150.0; Glucose 83 mg/dl (70-99); Potassium 3.7 mmol/L (3.5-5.1); Sodium 139 mmol/L (136-145)
--- NOTE | 2018-12-04 06:59 | XRay Report ---
XR chest 1V portable HISTORY: 23 years-old Female daily follow-up study in a patient with respiratory failure COMPARISON: Chest radiograph 12/03/2018 TECHNIQUE: Portable AP view of the chest FINDINGS: Tracheostomy cannula is again noted overlying the midline at the level of the clavicular heads. The r ight lung is generally clear. Cardiac silhouette appears unchanged. Increased size of the left pleura l effusion with persistent left lung base and left midlung airspace opacities. No pneumothorax. Bones appear grossly intact. IMPRESSION: 1. Increased size of the left pleural effusion. 2. Persistent left basilar and left midlung airspace opacities. 3. No pneumothorax. The above report was generated using voice recognition software. It may contain grammatical, syntax o r spelling errors. Electronically signed by: Finn Townsend M.D. 12/04/2018 6:58 AM
[2018-12-04] MEDS: BUDESONIDE 0.5 MG/2 ML VIAL (PULMICORT) INH SCH ×2 (07:44→18:51)
[2018-12-04] MEDS: ACETYLCYSTEINE 10% INHAL SOLN 4 ML **DISPENSED BY RESP. INH SCH ×4 (07:44→18:51)
--- NOTE | 2018-12-04 08:09 | Critical Care Progress Note ---
Date of Service December 04, 2018 Assessment & Plan (1) Mucoid impaction of bronchi: Reason Critically Ill: High risk patient with tracheostomy with pneumonia NEURO H/O CP. Patient at baseline neuro status, unable to converse Patient with history of seizure disorder as well, will continue home medications Zonisamide, Depakote. Depakote level therapeutic this admission CV Patient tachycardic and blood pressures borderline Close to patient's baseline from previous admissions Will monitor and give fluid as needed PULM DC'd Zosyn for her MDR pseudomonas pneumonia 12/01. Completed 16 day course Procal normalized now. 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 Mother states cough assist/nebs can only be done TID at home 2/2 ease. Switched to home vent/regimen and see how pt does prior to d/c. Will attempt to wean back to RA over weekend Abd/GI Will continue home PEG tube feeds Nutrition on board- increase protein sarah ID Sputum culture and bronchial lavage growing pseudomonas, sensitive to zosyn D/C'd zosyn as above. Per ID recs, dc'd inhaled tobramycin 2/2 resistance Discussed pneumonia vaccination status with mother, she has been adequately vaccinated. She can either get a booster later this year or anytime in the next five for her PPSV vaccination. /RENAL Kidney function normal at baseline Heme Stable H/H, at baseline. No hematologic abnormality Blood draws to every other day as above LINES: PIV x1 DVT Prophylaxis: SCDs Conditional Code: [facility] Vent only DISPO: ICU Supervising Physician Co-Signing Physician Notes Dr. Smyth was resident physician during care of patient. I separately evaluated patient for canales portions of the history and the exam. I was present during the critical portion of medical decision making, and I discussed the case with the resident. I generally agree with the findings and plan. No overnight events, patient tolerated her home vent. We will continue the current treatment course at this time. She is saturating in the low 90s on 30% FiO2 we will attempt to scale back to room air in the next 24 to 48 hours. Subjective 23 yo F found in bed this AM in NAD. Sating low 90s. No new issues. Case discussed with mother today. Proceeded with home vent settings. No other acute concerns or complaints. Review of Systems Review of Systems: All systems reviewed & are unremarkable except as noted in HPI & below Physical Exam Constitutional: + thin Eyes: PERRL, conjunctivae normal, anicteric sclerae ENMT: external ear and nose normal, oropharynx normal Respiratory: decreased sounds L base Cardiovascular: RRR, no murmur, no edema Gastrointestinal (Abdomen): normal bowel sounds, soft, nontender, no hepatosplenomegaly Musculoskeletal: contractures UE/LE Skin: no rashes, warm and dry Results & Data Vital Signs (Past 12 Hours) Vital Signs Temp Pulse Pulse Resp BP Pulse Ox 12/04/18 06:05 26 H 12/04/18 04:00 36.8 C 86 94/58 L 94 12/04/18 03:44 89 26 H 94 12/04/18 03:18 81 25 H 96 12/04/18 03:00 79 90/55 L 96 12/04/18 02:00 86 94/55 L 95 12/04/18 01:00 88 88/51 L 92 12/04/18 00:00 37.4 C 92 H 92/53 L 92 12/03/18 23:30 102 H 27 H 94 12/03/18 23:27 100 H 91 12/03/18 23:00 93 H 104/59 L 93 12/03/18 22:01 95 H 103/75 92 12/03/18 22:00 99 H 90 12/03/18 21:01 97 H 30 H 92 12/03/18 21:00 99 H 17 98/69 L 88 L Laboratory Results Laboratory Results - last 24 hr 12/04/18 04:30 Sodium 139 Potassium 3.7 Chloride 108 H Carbon Dioxide 25 Anion Gap 6.0 BUN 10 Creatinine 0.34 L Est Cr Clr Drug Dosing 181.1 Est GFR ( Amer) > 150.0 Est GFR (Non-Af Amer) > 150.0 BUN/Creatinine Ratio 28.3 H Glucose 83 Calcium 8.6 Medications Administered Current Inpatient Medications Acetaminophen (Children's Acetaminophen) 320 mg PO Q4H PRN PRN Reason: Fever Stop: 12/19/18 14:33 Last Admin: 11/19/18 15:03 Dose: 320 mg Documented by: Acetylcysteine (Mucomyst 10%) 3 ml INH QIDR KENNEDY Stop: 12/31/18 10:59 Last Admin: 12/04/18 07:44 Dose: 3 ml Documented by: Albuterol (Duoneb) 3 ml NEB Q4R KENNEDY Stop: 12/15/18 14:59 Last Admin: 12/04/18 07:55 Dose: 3 ml Documented by: Albuterol (Ventolin 0.083% 2.5mg/3ml) 2.5 mg INH Q4H PRN PRN Reason: Wheezing/ shortness of breath Stop: 12/15/18 14:48 Last Admin: 11/27/18 03:35 Dose: 2.5 mg Documented by: Baclofen (Lioresal) 20 mg PO TID [facility] Stop: 12/15/18 15:29 Last Admin: 12/04/18 08:50 Dose: 20 mg Documented by: Budesonide (Pulmicort Respules) 0.5 mg INH BIDR [facility] Stop: 12/15/18 18:59 Last Admin: 12/04/18 07:44 Dose: 0.5 mg Documented by: Clonazepam (Klonopin) 0.5 mg PO DAILY PRN PRN Reason: seizures Stop: 12/15/18 15:29 Fluoxetine HCl (Prozac) 20 mg NG DAILY [facility] Stop: 12/16/18 08:59 Last Admin: 12/04/18 08:50 Dose: 20 mg Documented by: Acetaminophen (Ofirmev) 65 mls @ 200 mls/hr IV Q8H PRN PRN Reason: fever Stop: 12/15/18 14:48 Last Infusion: 11/27/18 07:45 Dose: Infused Documented by: Sodium Chloride (Nss 1000ml) 1,000 mls @ 20 mls/hr IV .Q24H [facility] Stop: 01/02/19 04:29 Last Admin: 12/04/18 08:33 Dose: Not Given Documented by: Multivitamins/Minerals (Cerovite Liquid) 15 ml PEG QAM [facility] Stop: 01/03/19 08:59 Last Admin: 12/04/18 08:50 Dose: 15 ml Documented by: Nitrofurantoin (Furadantin) 50 mg PEG DAILY [facility] Stop: 12/16/18 08:59 Last Admin: 12/04/18 08:50 Dose: 50 mg Documented by: Cetirizine 1mg/Ml: Non-Formulary Patient's Own Med 10 ea PEG DAILY KENNEDY Stop: 12/16/18 08:59 Last Admin: 12/04/18 08:51 Dose: 10 ml Documented by: Nutritional Formula (Patient's Own Enteral Feeding) 350 ml PEG 0700,1130 ,1500,1900 KENNEDY Stop: 12/16/18 11:29 Last Admin: 12/04/18 08:35 Dose: Not Given Documented by: Polyethylene Glycol (Miralax Powder Packet) 8.5 gm PEG DAILY PRN PRN Reason: bowel regiment Last Admin: 11/20/18 16:47 Dose: 8.5 gm Documented by: Potassium Chloride (Elisabeth Ciel Elix) 20 meq PEG DAILY KENNEDY Stop: 12/22/18 08:59 Last Admin: 12/04/18 08:50 Dose: 20 meq Documented by: Sterile Water (Tube Feeding Water Flush) 1 ea PO QID@07,1130,15,19 KENNEDY Stop: 12/15/18 14:59 Last Admin: 12/04/18 08:35 Dose: Not Given Documented by: Trazodone HCl (Desyrel) 50 mg PEG HS K[facility]EDY Stop: 12/15/18 20:59 Last Admin: 12/03/18 22:55 Dose: 50 mg Documented by: Valproic Acid (Valproic Acid) 500 mg PO TID KENNEDY Stop: 12/16/18 13:59 Last Admin: 12/04/18 08:49 Dose: 500 mg Documented by: Zonisamide (Zonegran) 1 ea PO HS KENNEDY Stop: 12/15/18 20:59 Last Admin: 12/03/18 22:57 Dose: 1 ea Documented by: Zonisamide (Zonegran) 2 ea PO QAM KENNEDY Stop: 12/16/18 08:59 Last Admin: 12/04/18 08:50 Dose: 2 ea Documented by: PG Care Time/CCT Total # of Minutes Spent Total Time Spent with Patient: Total time spent is greater than 50% in coordination of care (as documented) at patient's floor/unit and/or counseling patient: Resident Activity Tracking Resident Involvement: Resident Care Provided Care Provided: Adult [facility] Medicine
[2018-12-04] MEDS: SODIUM CHLORIDE 0.9% 1000ML 1,000 ML IV SCH (08:33)
[2018-12-04] MEDS: PATIENT'S OWN ENTERAL FEEDING PEG SCH ×4 (08:35→20:04)
[2018-12-04] MEDS: TUBE FEEDING WATER FLUSH PO SCH ×4 (08:35→20:04)
[2018-12-04] MEDS: VALPROIC ACID SOLN 500 MG/10 ML UDC PO SCH ×3 (08:49→21:18)
[2018-12-04] MEDS: POTASSIUM CHLORIDE 20 MEQ/15 ML UDC PEG SCH (08:50)
[2018-12-04] MEDS: MULTI VIT W/MINERALS LIQUID 15 ML UDP PEG SCH (08:50)
[2018-12-04] MEDS: FLUOXETINE HCL 20 MG/5 ML UDP NG SCH (08:50)
[2018-12-04] MEDS: NITROFURANTOIN 25 MG/5 ML PEG SCH (08:50)
[2018-12-04] MEDS: BACLOFEN 20 MG TAB PO SCH ×3 (08:50→21:19)
[2018-12-04] MEDS: CETIRIZINE 1 MG/ML PEG SCH (08:51)
--- NOTE | 2018-12-04 19:02 | Hospitalist Progress Note ---
Date of Service December 04, 2018 Assessment & Plan (1) Acute on chronic respiratory failure with hypoxia and hypercapnia: acute resp failure 2nd to left-sided pseudomonas pneumonia. acute component resolved. O2 has been weaned considerably. on night-time vent. treated with zosyn - about 16-17 days of such - abx were d/c mid-week this week. no fevers. s/p bronch x 11 this admission for removal of mucous plugs from left bronchial tree. remains on trach collar during the day. continue night-time vent. (2) Sepsis: 2nd to pneumonia. resolved. (3) Pleural effusion, left: likely parapneumonic. small-moderate; getting larger in size on chest x-ray today. this bears close observation. if any fever, worsening status, etc may need intervention. (4) History of tracheostomy: chronic trach with night-time vent use at home. (5) Pneumonia: left-sided. 2nd to pseudomonas. abx stopped - had received about 16-17 days of zosyn. Tobramycin nebs stopped as the pathogen is not fully sensitive to such. cont aggressive pulmonary toilet, mucomyst, etc (6) History of cerebral palsy: long-standing going back to infancy. at baseline is nonverbal and is bed-bound. Trach/PEG in place. on baclofen, zonisamide, etc for contractures (7) Seizure disorder: had 30-second seizure 11/18/18. none since. depakote level therapeutic shortly after that seizure. cont meds as is. (8) Thrombocytopenia: likely was sepsis-associated. resolved. last CBC stable. (9) Status post insertion of percutaneous endoscopic gastrostomy (PEG) tube: tolerating tube feeds tube feeds are at goal no issues (10) Severely underweight adult: added MVI daily via PEG BMI 15 (11) DVT prophylaxis: SCDs in place d/c to home hopefully this coming Thursday father updated at bedside yesterday will cont to follow Subjective no significant changes since yesterday. occasional episode of hypoxia/desaturation - improves w/ suctioning, repositioning, etc. tolerating tube feedings. Review of Systems Review of Systems: Unobtainable due to cognitive status Physical Exam Constitutional: + thin, + language barrier (nonverbal ) and + frail appearing no changes from prior exam ENMT: Mouth: + oropharynx abnormality (cleft palate; no thrush present) trach in place Respiratory: no respiratory distress and not tachypneic Auscultation: + diminished lung sounds (left base); no crackles and no wheezes course BS b/l Cardiovascular: Rate/Rhythm: regular rhythm and + tachycardic Heart Sounds: normal S1 and normal S2; no murmur Vessels: posterior tibial pulses present and dorsalis pedis pulses present; no JVD Extremities: no edema Gastrointestinal (Abdomen): normal bowel sounds, soft, nontender, no hepatosplenomegaly Skin: no rashes, warm and dry + ecchymosis (minimal, left knee, resolving) Neurologic: contractures Results & Data Vital Signs (Past 12 Hours) Vital Signs Temp Pulse Pulse Resp BP BP Pulse Ox 12/04/18 16:00 93 H 96/60 L 95 12/04/18 15:00 113 H 106/71 92 12/04/18 14:48 96 H 20 91 12/04/18 14:00 96 H 106/62 96 12/04/18 13:00 92 H 96/58 L 93 12/04/18 12:00 104 H 108/73 92 12/04/18 11:47 115 H 18 89 L 12/04/18 11:00 111 H 103/50 L 86 L 12/04/18 10:00 75 91/57 L 93 12/04/18 09:00 77 94/62 L 91 12/04/18 08:00 36.8 C 89 85 20 88/56 L 86 L 12/04/18 07:42 88 88/56 L 91 12/04/18 07:40 89 22 91 12/04/18 07:00 74 87/50 L 89 L Laboratory Results Laboratory Results - last 24 hr 12/04/18 04:30 Sodium 139 Potassium 3.7 Chloride 108 H Carbon Dioxide 25 Anion Gap 6.0 BUN 10 Creatinine 0.34 L Est Cr Clr Drug Dosing 181.1 Est GFR ( Amer) > 150.0 Est GFR (Non-Af Amer) > 150.0 BUN/Creatinine Ratio 28.3 H Glucose 83 Calcium 8.6 PG Care Time/CCT Total # of Minutes Spent Total Time Spent with Patient: Total time spent is greater than 50% in coordination of care (as documented) at patient's floor/unit and/or counseling patient: (1) Sepsis Sepsis acute organ dysfunction status: unspecified Sepsis type: sepsis due to unspecified organism Qualified Code(s): A41.9 - Sepsis, unspecified organism (2) Pneumonia Laterality: left Lung location: lower lobe of lung Pneumonia type: due to unspecified organism Qualified Code(s): J18.1 - Lobar pneumonia, unspecified organism
[2018-12-04] MEDS: TRAZODONE HCL 50 MG TAB PEG SCH (21:18)
[2018-12-04] MEDS: ZONISAMIDE 100 MG PO SCH (21:19)
[2018-12-05] MEDS: ALBUT/IPRATROP 3MG/0.5MG NEB 3 ML VIAL NEB SCH ×6 (03:07→23:17)
[2018-12-05 05:49] LABS: Basophils # (auto) 0.01 K/uL (0-0.2); Basophils % (auto) 0.1 %; Eosinophils % (auto) 1.2 %; Hematocrit (blood only) 30.6 % (37-47); Hemoglobin 10.2 g/dL (12.0-16.0); Immature Granulocytes # (auto) 0.02 K/uL (0.00-0.02); Immature Granulocytes % (auto) 0.2 %; Lymphocytes % (auto) 16.9 %; Mean Corpuscular Hemoglobin 33.6 pg (25-34); Mean Corpuscular Hgb Conc 33.3 g/dL (32-36); Mean Corpuscular Volume 100.7 fL (80-100); Mean Platelet Volume 8.4 fL (7.4-10.4); Monocytes # (auto) 0.64 K/uL (0.11-0.59); Monocytes % (auto) 7.7 %; Neutrophils # (auto) 6.13 K/uL (1.4-6.5); Neutrophils % (auto) 73.9 %; Platelet Count 171 K/uL (130-400); RDW Coefficient of Variation 13.5 % (11.5-14.5); RDW Standard Deviation 48.6 fL (36.4-46.3); Red Blood Count 3.04 M/uL (4.2-5.4)
[2018-12-05 06:07] LABS: BUN Creatinine Ratio 24.5 (10-20); Blood Urea Nitrogen 10 mg/dl (7-18); Calcium 9.2 mg/dl (8.5-10.1); Carbon Dioxide 27 mmol/L (21-32); Chloride 105 mmol/L (98-107); Creatinine Clr Calc Pharmacy 146.6 ml/min; Est GFR (African American) > 150.0; Est GFR (Non-African American) 145.5; Glucose 84 mg/dl (70-99); Potassium 3.9 mmol/L (3.5-5.1); Sodium 137 mmol/L (136-145)
--- NOTE | 2018-12-05 07:10 | XRay Report ---
XR chest 1V portable CLINICAL HISTORY: Cough. Abnormal chest x-ray. Follow-up study. COMPARISON STUDY: 12/04/2018 FINDINGS: There is a tracheostomy tube present. The cardiac and mediastinal contours remain stable. T here are improving left lower lobe airspace and facet disease with improved aeration left hemithorax. [ IMPRESSION: Persistent but improving left lower lung zone airspace opacities Electronically signed by: Galen Ham M.D. 12/05/2018 7:09 AM
--- NOTE | 2018-12-05 07:14 | Critical Care Progress Note ---
Date of Service December 05, 2018 Assessment & Plan (1) Mucoid impaction of bronchi: Reason Critically Ill: High risk patient with tracheostomy with pneumonia NEURO H/O CP. Patient at baseline neuro status, unable to converse Patient with history of seizure disorder as well, will continue home medications Zonisamide, Depakote. Depakote level therapeutic this admission CV Patient tachycardic and blood pressures borderline Close to patient's baseline from previous admissions Will monitor and give fluid as needed PULM DC'd Zosyn for her MDR pseudomonas pneumonia 12/01. Completed 16 day course Procal normalized now. 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 Mother states cough assist/nebs can only be done TID at home 2/2 ease. Will attempt to wean back to RA today and home vent at night. Mom reports normally sats 88-92 on RA at home. Hopefully d/c tomorrow if tolerates this regimen today and tonight Abd/GI Will continue home PEG tube feeds Nutrition on board- increase protein sarah ID Sputum culture and bronchial lavage growing pseudomonas, sensitive to zosyn D/C'd zosyn as above. Per ID recs, dc'd inhaled tobramycin 2/2 resistance Discussed pneumonia vaccination status with mother, she has been adequately vaccinated. She can either get a booster later this year or anytime in the next five for her PPSV vaccination. /RENAL Kidney function normal at baseline Heme Stable H/H, at baseline. No hematologic abnormality Blood draws to every other day as above LINES: PIV x1 DVT Prophylaxis: SCDs Conditional Code: Mech Vent only DISPO: ICU Supervising Physician Co-Signing Physician Notes Dr. Smyth was resident physician during care of patient. I separately evaluated patient for canales portions of the history and the exam. I was present during the critical portion of medical decision making, and I discussed the case with the resident. I generally agree with the findings and plan. No desaturation from mucoid impaction overnight, will transition to room air during the day, home vent at night. She has a successful night tonight we could consider downgrade/transition to home care tomorrow. Subjective 23 yo F found in bed this AM in NAD. Sating low 90s. No new issues/changes. Overnight fever 38.1 C. Case discussed with mother today. Proceeded with home vent settings. Tolerating tube feeds. No other acute concerns or complaints. Review of Systems Review of Systems: All systems reviewed & are unremarkable except as noted in HPI & below Physical Exam Constitutional: + thin Eyes: PERRL, conjunctivae normal, anicteric sclerae ENMT: external ear and nose normal, oropharynx normal Respiratory: decreased sounds L side at base Cardiovascular: RRR, no murmur, no edema Gastrointestinal (Abdomen): normal bowel sounds, soft, nontender, no hepatosplenomegaly Musculoskeletal: Contractures UE/LE Skin: no rashes, warm and dry Psychiatric: CP Results & Data Vital Signs (Past 12 Hours) Vital Signs Temp Pulse Pulse Resp BP Pulse Ox 12/05/18 06:00 98 H 103/64 91 12/05/18 05:46 21 12/05/18 05:34 98 H 30 H 100 12/05/18 05:00 38.1 C H 95 H 104/68 95 12/05/18 04:00 99 H 105/66 95 12/05/18 03:33 93 H 24 93 12/05/18 03:00 93 H 100/68 94 12/05/18 02:00 93 H 105/67 91 12/05/18 01:27 90 26 H 93 12/05/18 01:00 82 110/58 L 96 12/05/18 00:00 36.9 C 91 H 95/65 L 94 12/04/18 23:09 99 H 26 H 93 12/04/18 23:00 98 H 104/62 93 12/04/18 22:16 91 H 27 H 93 12/04/18 22:06 100 H 89 L 12/04/18 22:05 98 H 109/67 89 L 12/04/18 21:00 155 H 109/67 97 12/04/18 20:00 36.9 C 101 H 104/63 92 Laboratory Results Laboratory Results - last 24 hr 12/05/18 12/05/18 05:41 05:41 WBC 8.30 RBC 3.04 L Hgb 10.2 L Hct 30.6 L MCV 100.7 H MCH 33.6 MCHC 33.3 RDW Std Deviation 48.6 H RDW Coeff of [place]quito 13.5 Plt Count 171 MPV 8.4 Immature Gran % (Auto) 0.2 Neut % (Auto) 73.9 Lymph % (Auto) 16.9 [place] % (Auto) 7.7 Eos % (Auto) 1.2 Baso % (Auto) 0.1 Immature Gran # (Auto) 0.02 Neut # (Auto) 6.13 Lymph # (Auto) 1.40 [place] # (Auto) 0.64 H Eos # (Auto) 0.10 Baso # (Auto) 0.01 Sodium 137 Potassium 3.9 Chloride 105 Carbon Dioxide 27 Anion Gap 5.0 BUN 10 Creatinine 0.42 L Est Cr Clr Drug Dosing 146.6 Est GFR ( Amer) > 150.0 Est GFR (Non-Af Amer) 145.5 BUN/Creatinine Ratio 24.5 H Glucose 84 Calcium 9.2 Medications Administered Current Inpatient Medications Acetaminophen (Children's Acetaminophen) 320 mg PO Q4H PRN PRN Reason: Fever Stop: 12/19/18 14:33 Last Admin: 11/19/18 15:03 Dose: 320 mg Documented by: Acetylcysteine (Mucomyst 10%) 3 ml INH QIDR KENNEDY Stop: 12/31/18 10:59 Last Admin: 12/04/18 18:51 Dose: 3 ml Documented by: Albuterol (Duoneb) 3 ml NEB Q4R KENNEDY Stop: 12/15/18 14:59 Last Admin: 12/05/18 03:07 Dose: 3 ml Documented by: Albuterol (Ventolin 0.083% 2.5mg/3ml) 2.5 mg INH Q4H PRN PRN Reason: Wheezing/ shortness of breath Stop: 12/15/18 14:48 Last Admin: 11/27/18 03:35 Dose: 2.5 mg Documented by: Baclofen (Lioresal) 20 mg PO TID KENNEDY Stop: 12/15/18 15:29 Last Admin: 12/04/18 21:19 Dose: 20 mg Documented by: Budesonide (Pulmicort Respules) 0.5 mg INH BIDR KENNEDY Stop: 12/15/18 18:59 Last Admin: 12/04/18 18:51 Dose: 0.5 mg Documented by: Clonazepam (Klonopin) 0.5 mg PO DAILY PRN PRN Reason: seizures Stop: 12/15/18 15:29 Fluoxetine HCl (Prozac) 20 mg NG DAILY KENNEDY Stop: 12/16/18 08:59 Last Admin: 12/04/18 08:50 Dose: 20 mg Documented by: Acetaminophen (Ofirmev) 65 mls @ 200 mls/hr IV Q8H PRN PRN Reason: fever Stop: 12/15/18 14:48 Last Infusion: 11/27/18 07:45 Dose: Infused Documented by: Sodium Chloride (Nss 1000ml) 1,000 mls @ 20 mls/hr IV .Q24H KENNEDY Stop: 01/02/19 04:29 Last Admin: 12/04/18 08:33 Dose: Not Given Documented by: Multivitamins/Minerals (Cerovite Liquid) 15 ml PEG QAM KENNEDY Stop: 01/03/19 08:59 Last Admin: 12/04/18 08:50 Dose: 15 ml Documented by: Nitrofurantoin (Furadantin) 50 mg PEG DAILY KENNEDY Stop: 12/16/18 08:59 Last Admin: 12/04/18 08:50 Dose: 50 mg Documented by: Cetirizine 1mg/Ml: Non-Formulary Patient's Own Med 10 ea PEG DAILY KENNEDY Stop: 12/16/18 08:59 Last Admin: 12/04/18 08:51 Dose: 10 ml Documented by: Nutritional Formula (Patient's Own Enteral Feeding) 350 ml PEG 0700,1130,1500,1900 KENNEDY Stop: 12/16/18 11:29 Last Admin: 12/04/18 20:04 Dose: 350 ml Documented by: Polyethylene Glycol (Miralax Powder Packet) 8.5 gm PEG DAILY PRN PRN Reason: bowel regiment Last Admin: 11/20/18 16:47 Dose: 8.5 gm Documented by: Potassium Chloride (Elisabeth Ciel Elix) 20 meq PEG DAILY KENNEDY Stop: 12/22/18 08:59 Last Admin: 12/04/18 08:50 Dose: 20 meq Documented by: Sterile Water (Tube Feeding Water Flush) 1 ea PO QID@07,1130,15,19 KENNEDY Stop: 12/15/18 14:59 Last Admin: 12/04/18 20:04 Dose: 1 ea Documented by: Trazodone HCl (Desyrel) 50 mg PEG HS KENNEDY Stop: 12/15/18 20:59 Last Admin: 12/04/18 21:18 Dose: 50 mg Documented by: Valproic Acid (Valproic Acid) 500 mg PO TID KENNEDY Stop: 12/16/18 13:59 Last Admin: 12/04/18 21:18 Dose: 500 mg Documented by: Zonisamide (Zonegran) 1 ea PO HS KENNEDY Stop: 12/15/18 20:59 Last Admin: 12/04/18 21:19 Dose: 1 ea Documented by: Zonisamide (Zonegran) 2 ea PO QAM KENNEDY Stop: 12/16/18 08:59 Last Admin: 12/04/18 08:50 Dose: 2 ea Documented by: PG Care Time/CCT Total # of Minutes Spent Total Time Spent with Patient: Total time spent is greater than 50% in coordination of care (as documented) at patient's floor/unit and/or counseling patient: Resident Activity Tracking Resident Involvement: Resident Care Provided Care Provided: Adult Hospital Medicine
[2018-12-05] MEDS: ACETYLCYSTEINE 10% INHAL SOLN 4 ML **DISPENSED BY RESP. INH SCH ×4 (08:09→19:52)
[2018-12-05] MEDS: BUDESONIDE 0.5 MG/2 ML VIAL (PULMICORT) INH SCH ×2 (08:10→20:03)
[2018-12-05] MEDS: SODIUM CHLORIDE 0.9% 1000ML 1,000 ML IV SCH (08:23)
[2018-12-05] MEDS: TUBE FEEDING WATER FLUSH PO SCH ×4 (08:23→20:46)
[2018-12-05] MEDS: PATIENT'S OWN ENTERAL FEEDING PEG SCH ×4 (08:23→20:46)
[2018-12-05] MEDS: MULTI VIT W/MINERALS LIQUID 15 ML UDP PEG SCH (08:23)
[2018-12-05] MEDS: NITROFURANTOIN 25 MG/5 ML PEG SCH (08:24)
[2018-12-05] MEDS: FLUOXETINE HCL 20 MG/5 ML UDP NG SCH (08:24)
[2018-12-05] MEDS: BACLOFEN 20 MG TAB PO SCH ×3 (08:25→20:46)
[2018-12-05] MEDS: POTASSIUM CHLORIDE 20 MEQ/15 ML UDC PEG SCH (08:25)
[2018-12-05] MEDS: CETIRIZINE 1 MG/ML PEG SCH (08:26)
[2018-12-05] MEDS: VALPROIC ACID SOLN 500 MG/10 ML UDC PO SCH ×3 (08:26→20:47)
--- NOTE | 2018-12-05 20:00 | Hospitalist Progress Note ---
Date of Service December 05, 2018 Assessment & Plan (1) Acute on chronic respiratory failure with hypoxia and hypercapnia: acute resp failure 2nd to left-sided pseudomonas pneumonia. acute component resolved. O2 has been weaned to 40% FiO2 or less. on night-time vent. treated with zosyn - about 16-17 days of such - abx were d/c mid-week this week. s/p bronch x 11 this admission for removal of mucous plugs from left bronchial tree. remains on trach collar during the day. continue night-time vent. had low-grade temp of 38.1 early this am; significance? cxr this am with no worsening of prior infiltrates. clinically unchanged from prior exams. will follow. (2) Sepsis: 2nd to pneumonia. resolved. (3) Pleural effusion, left: likely parapneumonic. small-moderate on most recent x-rays. if any persistent fevers, worsening status, etc may need intervention/work-up. (4) History of tracheostomy: chronic trach with night-time vent use at home. (5) Pneumonia: left-sided. 2nd to pseudomonas. abx stopped - had received about 16-17 days of zosyn. Tobramycin nebs stopped as the pathogen is not fully sensitive to such. cont pulmonary toilet, mucomyst, nebs, etc. (6) History of cerebral palsy: long-standing going back to infancy. at baseline is nonverbal and is bed-bound. Trach/PEG in place. on baclofen, zonisamide, etc for contractures (7) Seizure disorder: had 30-second seizure 11/18/18. none since. depakote level therapeutic shortly after that seizure. cont depakote as is. (8) Thrombocytopenia: likely was sepsis-associated. resolved. (9) Status post insertion of percutaneous endoscopic gastrostomy (PEG) tube: tolerating tube feeds (10) Severely underweight adult: added MVI daily via PEG - would send home with such BMI 15 (11) DVT prophylaxis: SCDs in place care d/w Dr Tariq today the hope is for d/c tomorrow AM Dr Tariq and his team had already spoken with Selvin's mother regarding potential d/c for tomorrow we have transitioned all meds to her home schedule as best as possible Subjective low-grade temp of 38.1 this am. during my visit she looked similar to yesterday. remains on trach collar. no events otherwise overnight. Review of Systems Review of Systems: Unobtainable due to cognitive status Physical Exam Constitutional: + thin, + language barrier (nonverbal ) and + frail appearing ENMT: Mouth: + oropharynx abnormality (cleft palate; no thrush present) trach present - clean Respiratory: + tachypneic; no respiratory distress Auscultation: + diminished lung sounds (left base) and + crackles (minimal - left base); no wheezes Cardiovascular: Rate/Rhythm: regular rate and regular rhythm Heart Sounds: normal S1 and normal S2; no murmur Vessels: posterior tibial pulses present and dorsalis pedis pulses present; no JVD Extremities: no edema Gastrointestinal (Abdomen): normal bowel sounds, soft, nontender, no hepatosplenomegaly PEG clean/dry Skin: no rashes, warm and dry + ecchymosis (minimal, left knee, resolving) Results & Data Vital Signs (Past 12 Hours) Vital Signs Temp Pulse Pulse Resp BP Pulse Ox 12/05/18 18:00 87 96/59 L 96 12/05/18 17:00 105 H 97/61 L 92 12/05/18 16:00 97 H 100/60 95 12/05/18 15:23 94 H 22 95 12/05/18 15:00 90 90/56 L 97 12/05/18 14:00 102 H 92/52 L 91 12/05/18 13:00 105 H 92/57 L 96 12/05/18 12:01 97 H 100/58 L 95 12/05/18 12:00 106 H 95 12/05/18 11:21 112 H 18 95 12/05/18 11:00 113 H 105/53 L 93 12/05/18 10:00 103 H 85/44 L 92 12/05/18 09:37 94 H 18 96 12/05/18 09:23 99 H 105/67 93 12/05/18 09:00 105 H 105/67 94 12/05/18 08:00 37.1 C 130 H 93/67 L 90 Laboratory Results Laboratory Results - last 24 hr 12/05/18 12/05/18 05:41 05:41 WBC 8.30 RBC 3.04 L Hgb 10.2 L Hct 30.6 L MCV 100.7 H MCH 33.6 MCHC 33.3 RDW Std Deviation 48.6 H RDW Coeff of [place] 13.5 Plt Count 171 MPV 8.4 Immature Gran % (Auto) 0.2 Neut % (Auto) 73.9 Lymph % (Auto) 16.9 [place] % (Auto) 7.7 Eos % (Auto) 1.2 Baso % (Auto) 0.1 Immature Gran # (Auto) 0.02 Neut # (Auto) 6.13 Lymph # (Auto) 1.40 [place] # (Auto) 0.64 H Eos # (Auto) 0.10 Baso # (Auto) 0.01 Sodium 137 Potassium 3.9 Chloride 105 Carbon Dioxide 27 Anion Gap 5.0 BUN 10 Creatinine 0.42 L Est Cr Clr Drug Dosing 146.6 Est GFR ( Amer) > 150.0 Est GFR (Non-Af Amer) 145.5 BUN/Creatinine Ratio 24.5 H Glucose 84 Calcium 9.2 PG Care Time/CCT Total # of Minutes Spent Total Time Spent with Patient: Total time spent is greater than 50% in coordination of care (as documented) at patient's floor/unit and/or counseling patient: (1) Sepsis Sepsis acute organ dysfunction status: unspecified Sepsis type: sepsis due to unspecified organism Qualified Code(s): A41.9 - Sepsis, unspecified organism (2) Pneumonia Laterality: left Lung location: lower lobe of lung Pneumonia type: due to unspecified organism Qualified Code(s): J18.1 - Lobar pneumonia, unspecified organism
[2018-12-05] MEDS: TRAZODONE HCL 50 MG TAB PEG SCH (20:47)
[2018-12-05] MEDS: ZONISAMIDE 100 MG PO SCH (20:48)
[2018-12-06] MEDS: ALBUT/IPRATROP 3MG/0.5MG NEB 3 ML VIAL NEB SCH ×2 (02:54→07:25)
--- NOTE | 2018-12-06 07:11 | XRay Report ---
XR chest 1V portable CLINICAL HISTORY: daily dyspnea COMPARISON STUDY: 12/05/2018 FINDINGS: Slight improvement in aeration left lung base. Lungs otherwise remain clear. There is trach eostomy tube in position. IMPRESSION: Improving left basilar infiltrate. Mild residual. The above report was generated using voice recognition software. It may contain grammatical, syntax or spelling errors. Electronically signed by: Erik Shook M.D. 12/06/2018 7:09 AM
[2018-12-06] MEDS: ACETYLCYSTEINE 10% INHAL SOLN 4 ML **DISPENSED BY RESP. INH SCH (07:25)
[2018-12-06] MEDS: NITROFURANTOIN 25 MG/5 ML PEG SCH (07:52)
[2018-12-06] MEDS: MULTI VIT W/MINERALS LIQUID 15 ML UDP PEG SCH (07:52)
[2018-12-06] MEDS: BACLOFEN 20 MG TAB PO SCH (07:53)
[2018-12-06] MEDS: CETIRIZINE 1 MG/ML PEG SCH (07:53)
[2018-12-06] MEDS: POTASSIUM CHLORIDE 20 MEQ/15 ML UDC PEG SCH (07:53)
[2018-12-06] MEDS: VALPROIC ACID SOLN 500 MG/10 ML UDC PO SCH (07:54)
[2018-12-06] MEDS: FLUOXETINE HCL 20 MG/5 ML UDP NG SCH (07:54)
[2018-12-06] MEDS: TUBE FEEDING WATER FLUSH PO SCH (07:55)
[2018-12-06] MEDS: PATIENT'S OWN ENTERAL FEEDING PEG SCH (07:55)
[2018-12-06] MEDS: BUDESONIDE 0.5 MG/2 ML VIAL (PULMICORT) INH SCH (08:14)
--- NOTE | 2018-12-06 08:46 | Critical Care Progress Note ---
Date of Service December 06, 2018 Assessment & Plan (1) Mucoid impaction of bronchi: Reason Critically Ill: High risk patient with tracheostomy with pneumonia Cardiovascular: No acute issues. Continue to monitor. Appears euvolemic. Respiratory: Completed Zosyn. Continue nocturnal ventilation and pulmonary toilet. Appears appropriate for return to home with home care. Will discuss with mother when she is available ID: Completed course of Zosyn for Pseudomonas. Likely colonized. Unlikely to eradicate Neuro: Patient at baseline neuro status, unable to converse Patient with history of seizure disorder as well, will continue home Medication GI: Will continue home PEG tube feeds Heme: No acute issues Renal: Kidney function normal at baseline DVT PPx: IPCs F/E/N: Home tube feeds Dipso: ICU Code Status: Conditional, see details on chart Stable for discharge to home. Discharge per hospitalist. Follow-up with Dr. Matthew as needed in pulmonary clinic (2) Acute on chronic respiratory failure with hypoxia and hypercapnia: (3) Sepsis: (4) Fever: (5) Tachycardia: (6) History of tracheostomy: (7) Status post insertion of percutaneous endoscopic gastrostomy (PEG) tube: (8) Seizure disorder: (9) DVT prophylaxis: (10) Cerebral palsy: (11) Pneumonia: Subjective No issues overnight. Tolerated home vent settings. Secretions are manageable. Back to heated to modification this morning. No acute changes. No labs today. Review of Systems Review of Systems: Unobtainable due to patient's mental status Physical Exam Constitutional: + thin Eyes: PERRL, conjunctivae normal, anicteric sclerae ENMT: external ear and nose normal, oropharynx normal Respiratory: decreased sounds L base Cardiovascular: RRR, no murmur, no edema Gastrointestinal (Abdomen): normal bowel sounds, soft, nontender, no hepatosplenomegaly Musculoskeletal: contractures UE/LE Skin: no rashes, warm and dry Results & Data Vital Signs (Past 12 Hours) Vital Signs Temp Pulse Pulse Pulse Resp BP Pulse Ox 12/06/18 08:00 99 H 96/52 L 91 12/06/18 07:25 97 H 24 96 12/06/18 07:00 97 H 109/59 L 93 12/06/18 06:00 99 H 99/62 L 91 12/06/18 05:00 86 97/72 L 96 12/06/18 04:00 37.5 C 89 103/66 94 12/06/18 03:00 78 94/62 L 95 12/06/18 02:56 90 21 95 12/06/18 02:00 88 105/68 94 12/06/18 01:00 82 96/62 L 94 12/06/18 00:00 36.8 C 90 104/64 93 12/05/18 23:17 75 18 95 12/05/18 23:00 80 96/55 L 94 12/05/18 22:00 90 98/58 L 93 12/05/18 21:34 90 22 94 12/05/18 21:00 86 100/68 91 PG Care Time/CCT Total # of Minutes Spent Total Time Spent with Patient: Total time spent is greater than 50% in coordination of care (as documented) at patient's floor/unit and/or counseling patient: (1) Sepsis Sepsis acute organ dysfunction status: unspecified Sepsis type: sepsis due to unspecified organism Qualified Code(s): A41.9 - Sepsis, unspecified organism (2) Fever Fever type: unspecified Qualified Code(s): R50.9 - Fever, unspecified (3) Cerebral palsy Cerebral palsy type: unspecified type Qualified Code(s): G80.9 - Cerebral palsy, unspecified (4) Pneumonia Pneumonia type: due to unspecified organism Laterality: left Lung location: lower lobe of lung Qualified Code(s): J18.1 - Lobar pneumonia, unspecified organism
--- NOTE | 2018-12-06 09:20 | Discharge Summary ---
Date of Service December 06, 2018 Admission HPI Per Admitting Provider 23 y/o F who was brought to the ED by her mother and other caregivers for sudden onset of ill appearance. Mother states that pt was fine until yesterday when she was noted to have a cough and increased secretions. The secretions were also more thick. No blood noted. Pt has a home vent system and they provide respiratory care for her, so they were trying to suction her more and this did seem to help some. This morning pt was noted to have a fever and worsening cough, so she was brought to the ED. Family states that this how pt usually presents. She will appear fine and then suddenly "crash". She has been tole rating her TF without issue. Pt is nonverbal at baseline and does not have any nonverbal methods of communicating issues or pain to family. Pt has a hx of seizures. Family feels they are well controlled. Her last seizure was about 4 months ago as far as they are aware. They state that pt's VS do not change if she is seizing and that the only way to tell "is to be looking right at her". Family states that there is no correlation to seizures with infections. Pt can have a seizure at any time without any clear association with other health issues. Pt was started on nebs, zosyn in the ED. ED physician feels lung sounds are improved over arrival presentation. Admission Exam Per Admitting Provider Constitutional: WD/WN, vitals as above Eyes: + anicteric sclerae and + EOM movement deficit Neck: normal visual inspection and trachea midline Respiratory: normal respiratory effort; no respiratory distress, no labored breathing and no cough Auscultation: no wheezes on trach collar Cardiovascular: Rate/Rhythm: regular rhythm and + tachycardic Gastrointestinal (Abdomen): Inspection/Auscultation: abdomen not distended Percussion/Palpation: abdomen soft; abdomen nontender Musculoskeletal: Head/Neck/Chest: normocephalic and head atraumatic negative for edema, peripheral pulses intact Skin: no rashes, warm and dry Neurologic: eyes are open, does not respond to verbal or physical stimuli Psychiatric: Pt is nonverbal, does not make any sort of sounds, no interaction whatsoever during exam Principal Diagnosis Pseudomonas pneumonia Mucoid impaction of bronchi Acute on chronic respiratory failure with hypoxia and hypercapnia Sepsis Left pleural effusion Seizure disorder - x1 as inpatient Hypokalemia - low potassium, resolved on discharge Thrombocytopenia secondary to sepsis - low platelets, resolved on discharge Cerebral palsy longterm feeding tube Severely underweight adult Discharge Exam Constitutional + thin, + language barrier (nonverbal ) and + underweight Eyes + anicteric sclerae ENMT Mouth: + oropharynx abnormality (cleft palate; no thrush present) Neck trachea midline and + tracheostomy present Respiratory normal respiratory effort and + cough; no respiratory distress and no labored breathing Auscultation: + rhonchi (anteriorly); no wheezes Cardiovascular Rate/Rhythm: regular rate and regular rhythm Heart Sounds: normal S1 and normal S2; no murmur Extremities: no edema Gastrointestinal (Abdomen) Inspection/Auscultation: normal bowel sounds; abdomen not distended Percussion/Palpation: abdomen soft; abdomen nontender Musculoskeletal no cyanosis or clubbing, extremities motor strength 5/5 (contractures of all four extremities, bed bound, minimal strength) Skin no rashes, warm and dry Psychiatric Orientation: alert and cooperative; + not oriented to person, + not oriented to place and + not oriented to time Discharge Data Allergies Allergy/AdvReac Type Severity Reaction Status Date / Time No Known Allergies Allergy Unverified 11/15/18 11:02 Consultations 11/15/18 14:49 Consult Case Management - Discharge Planning Routine Consult Case Work Aide Routine 11/16/18 10:17 Consult Infectious Diseases Routine 11/29/18 10:32 Consult Palliative Care Routine Hospital Course (1) Acute on chronic respiratory failure with hypoxia and hypercapnia: acute resp failure 2nd to left-sided pseudomonas pneumonia O2 weaned over extend course of admission - on night-time ventilation. Rx Zosyn - 16-17 days. Extended course due to continued mucoid impaction of bronchi. s/p bronch x 11 this admission for removal of mucous plugs from left bronchial tree. remains on trach collar during the day. continue night-time vent. (2) Sepsis: 2nd to pneumonia. resolved (3) History of tracheostomy: chronic trach with night-time vent use at home. (4) Pneumonia: left-sided. 2nd to pseudomonas. abx stopped - had received about 16-17 days of zosyn. Tobramycin nebs stopped as pseudomonas resistant cont pulmonary toilet, mucomyst, nebs, etc. 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 at baseline is nonverbal and is bed-bound. Trach/PEG in place. on baclofen, zonisamide, etc for contractures (6) Seizure disorder: had 30-second seizure 11/18/18. none since. depakote level therapeutic shortly after that seizure. continue on same dose of depakote (7) Thrombocytopenia: secondary to sepsis resolved. (8) Status post insertion of percutaneous endoscopic gastrostomy (PEG) tube: On home tube feeds - continue (9) Severely underweight adult: added MVI daily via PEG - added to home medication list BMI 15 Total Time Total Time Spent Total Time Spent (In Minutes): 35 Total Time Includes: Examination of the Patient, Discharge Planning, Medication Reconciliation and Communication With Other Providers Discharge Plan Discharge Items Patient Disposition: Home - Home Health Services Reason For Visit: PNA Discharge Diagnosis: Pseudomonas pneumonia Mucoid impaction of bronchi Acute on chronic respiratory failure with hypoxia and hypercapnia Sepsis Left pleural effusion Seizure disorder - x1 as inpatient Hypokalemia - low potassium, resolved on discharge Thrombocytopenia secondary to sepsis - low platelets, resolved on discharge Cerebral palsy longterm feeding tube Severely underweight adult Condition on Discharge: Fair Activity: Resume your previous activity Non-emergency contact: Primary Care Provider and [facility] Counselor Call non-emergency contact if: you have any medication questions, your symptoms worsen and your temperature is above 101 Follow-up/Referrals: Chad Matthew MD [Physician] - Janet Pearce MD [Primary Care Provider] - Dietitian Info: continue prior home tube feeds Diet: Regular Addtl Attending Provider Instructions: You were diagnosed with pseudomonas pneumonia causing sepsis and mucus impaction. This was treated with prolonged antibiotics and multiple bronchoscopies. x1 seizure as inpatient lasting 30 seconds - likely due to critical illness and possibly exacerbated by low potassium. Anti-seizure medication levels were within normal limits and potassium supplementation was started which should be continued as prescribed. Given resistance to tobramycin this medication was discontinued on discharge. Pending Studies at Discharge: No Stand-Alone Forms: My [facility] Medications and DC Order Prescriptions: New [id number]-iiy-twmyxch gluconate [multivitamin with minerals] 9 mg iron/15 mL Liquid 15 ml PEG QAM 30 Days Qty: 450 RF: 1 potassium chloride 20 mEq/15 mL Liquid 20 meq PEG DAILY 30 Days Qty: 450 RF: 0 Continued nitrofurantoin 25 mg/5 mL suspension 50 mg feeding tube DAILY Qty: 230 RF: 5 fluoxetine 20 mg tablet 20 mg feeding tube DAILY RF: 0 albuterol sulfate 2.5 mg /3 mL (0.083 %) solution for nebulization 2.5 mg inhalation Q4H PRN (Reason: Wheezing/ shortness of breath) RF: 0 baclofen 20 mg tablet 20 mg feeding tube TID RF: 0 zonisamide 100 mg capsule 200 mg feeding tube QAM RF: 0 zonisamide 100 mg capsule 100 mg feeding tube HS RF: 0 valproic acid (as sodium salt) 250 mg/5 mL solution 550 mg feeding tube TID RF: 0 acetylcysteine 100 mg/mL (10 %) solution 3 ml inhalation BID RF: 0 budesonide 0.5 mg/2 mL suspension for nebulization 2 ml inhalation BID RF: 0 polyethylene glycol 3350 17 gram/dose powder 8.5 g feeding tube DAILY PRN (Reason: bowel regiment) RF: 0 clonazepam 0.5 mg tablet,disintegrating 0.5 mg feeding tube DIRECTED RF: 0 cetirizine 1 mg/mL solution 10 mg feeding tube DAILY RF: 0 Boost 0.04 gram- 1 kcal/mL Liquid 1.5 ea PO QID@,113,,19 RF: 0 water Liquid 120 ea PO QID@,113,,19 RF: 0 trazodone 50 mg tablet 50 mg feeding tube HS RF: 0 Discontinued tobramycin 28 mg Capsule, W/Inhalation Device 4 cap INHALATION Q12H RF: 0 Discharge Orders: Discharge Order (Routine); Ordered 12/06/18 Ordered By: Jatinder Champion Admission Data Admit Date/Time: 11/15/18 12:51 Attending Provider: Jatinder Champion Admit Provider: Makayla Garcia Primary Care Provider: Janet Pearce Other Providers: Afshin Tariq ; Almaz Vallejo ; Gina Felton Other Interventions: Discharge Summary Assessment (RN) Last Done: 12/06/18 09:37 DC Date/Time DO NOT enter until pt leaves facility: 12/06/18 10:39
[2018-12-06] MEDS ORDERED: INFLUENZA VIRUS QUAD VACCINE 0.5 ML SYR IM ONE (10:45)
[2018-12-06] MEDS ORDERED: INFLUENZA ADMINISTRATION CHARGE ONE (10:45)
== END 2018-12-06 10:39 | disposition home health service (06) | DRG 193 ==
LOC: ED 10:10 → 1E 12:51 → SUATTDRO 12:51 → 1E 13:36

== ENCOUNTER 2020-08-04 21:24 | Inpatient (IN) ==
[2020-08-04] MEDS ORDERED: SODIUM CHLORIDE 0.9% 1000ML 1,000 ML IV ONE ×2 (22:18→23:37)
[2020-08-04 22:57] LABS: Base Excess VBG -0.7 mEq/L; Oxygen Saturation VBG 95.5 %; pH VBG 7.44 (7.36-7.41)
[2020-08-04 23:09] LABS: Hematocrit (blood only) 34.7 % (37-47); Hemoglobin 12.1 g/dL (12.0-16.0); INR 1.1 (0.9-1.1); Mean Corpuscular Hemoglobin 34.1 pg (25-34); Mean Corpuscular Hgb Conc 34.9 g/dL (32-36); Mean Corpuscular Volume 97.7 fL (80-100); Partial Thromboplastin Time 27.2 Seconds (21.0-31.0); Prothrombin Time 11.5 Seconds (9.0-12.0); RDW Coefficient of Variation 12.4 % (11.5-14.5); RDW Standard Deviation 44.5 fL (36.4-46.3); Red Blood Count 3.55 M/uL (4.2-5.4); White Blood Count 5.36 K/uL (4.8-10.8)
[2020-08-04 23:11] LABS: Alanine Aminotransferase 85 U/L (12-78); Albumin Level 2.9 gm/dl (3.4-5.0); Aspartate Aminotransferase 100 U/L (15-37); BUN Creatinine Ratio 37.2 (10-20); Blood Urea Nitrogen 15 mg/dl (7-18); Calcium 8.8 mg/dl (8.5-10.1); Carbon Dioxide 22 mmol/L (21-32); Chloride 105 mmol/L (98-107); Creatinine Clr Calc Pharmacy 195.1 ml/min; Est GFR (African American) > 150.0 ml/min; Glucose 89 mg/dl (70-99); Potassium 3.7 mmol/L (3.5-5.1); Sodium 135 mmol/L (136-145)
[2020-08-04 23:14] LABS: Basophils # (auto) 0.01 K/uL (0-0.2); Basophils % (auto) 0.2 %; Immature Granulocytes # (auto) 0.04 K/uL (0.00-0.02); Immature Granulocytes % (auto) 0.7 %; Lymphocytes # (auto) 0.48 K/uL (1.2-3.4); Mean Platelet Volume 9.3 fL (7.4-10.4); Monocytes # (auto) 0.45 K/uL (0.11-0.59); Monocytes % (auto) 8.4 %; Neutrophils # (auto) 4.38 K/uL (1.4-6.5); Neutrophils % (auto) 81.7 %; Platelet Count 53 K/uL (130-400); Platelet Estimate Decreased (Normal); Toxic Vacuolation 1+
[2020-08-04 23:16] LABS: Albumin Globulin Ratio 0.7 (0.9-2); Alkaline Phosphatase 77 U/L (45-117); Bilirubin,Total 0.2 mg/dl (0.2-1); Globulin 4.3 gm/dl (2.5-4.0); Total Protein 7.2 gm/dl (6.4-8.2); Troponin I < 0.015 ng/ml (0-0.045)
[2020-08-04] MEDS ORDERED: VANCOMYCIN CONSULT ACTIVE PRN (23:37)
[2020-08-04] MEDS ORDERED: VANCOMYCIN HCL 1,500 MG in SODIUM CHLORIDE 0.9% 500 ML IV ONE (23:37)
[2020-08-04] MEDS ORDERED: CEFEPIME 2,000 MG/20 ML VIAL IV STA (23:37)
[2020-08-05 00:06] LABS: Appearance Urine Clear (Clear); Bilirubin Urine Negative (Negative); Blood Urine Negative (Negative); Color Urine Dark Yellow; Epithelial Cell Urine Auto >30 /lpf (0-5); Glucose Urine UA Negative (Negative); Ketones Urine 1+ (Negative); Leukocyte Esterase Urine Trace (Negative); Nitrite Urine Negative (Negative); Protein Urine 2+ (Negative); RBC Urine Automated 0-4 /hpf (0-4); Specific Gravity Urine 1.028 (1.000-1.030); Urobilinogen Urine Negative (Negative)
[2020-08-05 00:32] LABS: Mucus Urine Present (None Prsent)
[2020-08-05 00:37] LABS: Bacteria Urine Automated 1+ (Negative)
[2020-08-05] MEDS ORDERED: SODIUM CHLORIDE 0.9% 1000ML 1,000 ML IV SCH (01:00)
--- NOTE | 2020-08-05 01:09 | Emergency Department Note ---
History of Present Illness General Chief complaint: Fever Stated complaint: BREATHING DIFFICULTY Time Seen by Provider: 08/04/20 22:07 Source: family (Mother) History of Present Illness Provider complaint: Fever Associated symptoms: + fever/chills 24-year-old female with history of quadriplegic cerebral palsy and chronic respiratory failure presents emergency department with her mother at bedside for fever. Mother reports that the patient had a fever of 103 at her facility.She states that the staff at the facility thought she was breathing harder than normal. Mother reports that the patient usually uses a ventilator at night and last night the patient was struggling with the ventilator fighting it a lot wh ich is usually indicative of her having an infection. Home Medications Medication Instructions Recorded Confirmed Type Boost 1.5 ea PO QID@07,1130,,07/28/18 08/04/20 History water 120 ea PO QID@07,1130,,07/28/18 08/04/20 History acetaminophen 160 mg/5 mL oral 640 mg PO Q6H PRN #473 ml 12/21/18 08/04/20 Rx liquid ibuprofen 100 mg/5 mL oral See Rx Instructions PO Q6H PRN 12/21/18 08/04/20 Rx suspension #473 ml diaper,brief,adult,disposable #180 ea 05/12/19 06/26/20 Rx disposable gloves #100 ea 05/12/19 06/26/20 Rx incontinence pad, liner, disp #20 ea 05/12/19 06/26/20 Rx incontinence pad, liner, disp #72 ea 05/12/19 06/26/20 Rx trazodone 50 mg tablet 50 mg FEEDING TUBE HS #90 tab 02/20/20 08/04/20 Rx Miscellaneous Medical Supply #1 ea 02/22/20 06/26/20 Rx (Hospital Bed) nitrofurantoin macrocrystal 50 mg 50 mg FEEDING TUBE DAILY #90 cap 03/14/20 08/04/20 Rx capsule cetirizine 10 mg tablet 10 mg PO DAILY #90 tab 04/05/20 08/04/20 Rx acetylcysteine 100 mg/mL (10 %) 3 ml INHALATION BID #180 ml 06/12/20 08/04/20 Rx solution albuterol sulfate 2.5 mg INHALATION Q4H PRN #540 ml 06/12/20 08/04/20 Rx budesonide 0.5 mg/2 mL suspension 0.5 mg INHALATION BID #120 ml 06/12/20 08/04/20 Rx for nebulization baclofen 20 mg tablet 20 mg FEEDING TUBE TID 30 Days #90 06/26/20 08/04/20 Rx tab fluoxetine 20 mg tablet 20 mg FEEDING TUBE DAILY 30 Days 06/26/20 08/04/20 Rx #30 tab valproic acid (as sodium salt) 250 550 mg FEEDING TUBE TID 30 Days 06/26/20 08/04/20 Rx mg/5 mL oral solution #990 ml zonisamide 100 mg capsule 200 mg FEEDING TUBE .COMPLEX 30 06/26/20 08/04/20 Rx Days #90 cap clonazepam 0.5 mg FEEDING TUBE DIRECTED PRN 08/04/20 08/04/20 History nut.tx.,elemental,cpb-yeod-rxz 1 ea FEEDING TUBE DAILY 08/04/20 08/04/20 History [Xtracal Plus] polyethylene glycol 3350 [Miralax] 8.5 g FEEDING TUBE DAILY PRN 08/04/20 08/04/20 History Allergies Allergy/AdvReac Type Severity Reaction Status Date / Time No Known Allergies Allergy Verified 08/04/20 22:11 Past Med/Surg History Medical History Allergic rhinitis Chronic respiratory failure with hypoxia and hypercapnia Cortical blindness Depression with anxiety Insomnia 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 Seizure disorder Surgical History History of tracheostomy S/P percutaneous endoscopic gastrostomy (PEG) tube placement Family History Brother Asthma Other Coronary heart disease Family history non-contributory Hypertension Social History Smoking Status: Never smoker Second Hand Exposure: No; Hx Alcohol Use: No Hx Substance Use: No Preferred Language: Malay Communication Ability: Unable Beliefs That Will Affect Care: None Current Living Situation: Parent Current Living Situation Comment: parent Feels Safe at Home: Yes Assistive Devices: Oxygen - Continuous Review of Systems A total of 10 systems reviewed and were otherwise negative Physical Exam Vital Signs Vital Signs - 24 hr 08/04/20 21:24 08/04/20 21:35 08/04/20 22:00 Temperature 36.3 C L Temperature Source Axillary Pulse Rate 112 H 114 H 99 H Pulse Rate from SpO2 Sensor 114 H 99 H Pulse Rhythm Regular Respiratory Rate 16 14 27 H Respiratory Effort / Characteristics Non-Labored Spontaneous Respiratory Depth Normal Respiratory Pattern Regular Blood Pressure 105/77 105/77 90/56 L Blood Pressure Mean 86 86 67 Pulse Oximetry 92 94 92 Oxygen Delivery Method Room Air Trach Collar Trach Collar Oxygen Flow Rate 3 3 Sepsis Recent Fever Within 48 Hours No Sepsis New/Unexplained Change in Mental Status No Sepsis Action Taken by Nursing No Action Required 08/04/20 22:30 08/04/20 22:53 08/04/20 23:00 Temperature Temperature Source Pulse Rate 103 H 112 H 90 Pulse Rate from SpO2 Sensor 103 H 90 Pulse Rhythm Regular Respiratory Rate 25 H 16 27 H Respiratory Effort / Characteristics Respiratory Depth Respiratory Pattern Blood Pressure 94/63 L 91/56 L Blood Pressure Mean 73 67 Pulse Oximetry 90 92 94 Oxygen Delivery Method Trach Collar Room Air Trach Collar Oxygen Flow Rate 3 3 Sepsis Recent Fever Within 48 Hours Sepsis New/Unexplained Change in Mental Status Sepsis Action Taken by Nursing 08/04/20 23:30 08/04/20 23:32 08/04/20 23:38 Temperature Temperature Source Pulse Rate 90 92 H 93 H Pulse Rate from SpO2 Sensor 90 92 H 92 H Pulse Rhythm Respiratory Rate 24 26 H 20 Respiratory Effort / Characteristics Respiratory Depth Respiratory Pattern Blood Pressure 77/47 L 65/34 L 98/54 L Blood Pressure Mean 57 44 68 Pulse Oximetry 95 95 94 Oxygen Delivery Method Trach Collar Trach Collar Trach Collar Oxygen Flow Rate 3 3 3 Sepsis Recent Fever Within 48 Hours Sepsis New/Unexplained Change in Mental Status Sepsis Action Taken by Nursing 08/05/20 00:03 08/05/20 00:15 08/05/20 00:30 Temperature Temperature Source Pulse Rate 87 81 Pulse Rate from SpO2 Sensor 87 81 Pulse Rhythm Respiratory Rate 24 23 25 H Respiratory Effort / Characteristics Non-Labored Spontaneous Respiratory Depth Respiratory Pattern Blood Pressure 85/48 L 80/43 L Blood Pressure Mean 60 55 Pulse Oximetry 92 92 95 Oxygen Delivery Method Trach Collar Trach Collar Trach Collar Oxygen Flow Rate 3 4 4 Sepsis Recent Fever Within 48 Hours Sepsis New/Unexplained Change in Mental Status Sepsis Action Taken by Nursing 08/05/20 00:45 08/05/20 01:02 Temperature Temperature Source Pulse Rate 77 80 Pulse Rate from SpO2 Sensor 77 81 Pulse Rhythm Respiratory Rate 27 H 21 Respiratory Effort / Characteristics Respiratory Depth Respiratory Pattern Blood Pressure 81/46 L 91/52 L Blood Pressure Mean 57 65 Pulse Oximetry 95 96 Oxygen Delivery Method Trach Collar Trach Collar Oxygen Flow Rate 4 4 Sepsis Recent Fever Within 48 Hours Sepsis New/Unexplained Change in Mental Status Sepsis Action Taken by Nursing Physical Exam GENERAL: Patient is nonverbal at baseline. EYES: Conjunctivae and EOM are normal. Pupils are equal, round, and reactive to light. Right eye exhibits no discharge. Left eye exhibits no discharge. No scleral icterus. NECK: Tracheostomy present. CV: Normal rate, regular rhythm, normal heart sounds and intact distal pulses. There is no peripheral edema. Palpable radial pulses bue. PULM/CHEST: Rhonchi bilaterally. ABD: PEG tube in place. NEURO: Motor and sensation grossly intact, at baseline per mother at bedside. SKIN: Skin is warm and dry. She is not diaphoretic. Course Course 2206: The patient was evaluated in room C1. A complete history and physical exam was performed Cardiac monitoring: An order was placed for continuous cardiac monitoring. The monitor shows a rate of 80 with sinus rhythm 0000: Patient is hypotensive but it does improve with IV fluids. Lactic acid and CBC are within normal limits. Procalcitonin within normal limits. Chest x- ray does show a left lower lobe pneumonia. Patient be treated with cefepime and vancomycin. [facility]. Administered Medications Vancomycin HCl 1,500 mg/ (Sodium Chloride) 530 mls @ 200 mls/hr IV NOW ONE Stop: 08/05/20 02:15 Last Admin: 08/05/20 00:20 Dose: 200 mls/hr Documented by: [id number] Discontinued Medications Sodium Chloride (Nss 1000ml) 1,000 mls @ 999 mls/hr IV .Q1H1M ONE Stop: 08/04/20 23:18 Last Infusion: 08/04/20 23:50 Dose: 0 mls/hr Documented by: [id number] Admin: 08/04/20 22:55 Dose: 999 mls/hr Documented by: [id number] Sodium Chloride (Nss 1000ml) 1,000 mls @ 999 mls/hr IV .Q1H1M ONE Stop: 08/05/20 00:37 Last Admin: 08/04/20 23:51 Dose: 999 mls/hr Documented by: [id number] Cefepime HCl (Maxipime) 2,000 mg in 20 mls @ 5 mls/min IV NOW STA; Protocol Stop: 08/04/20 23:40 Last Admin: 08/04/20 23:59 Dose: 5 mls/min Documented by: [id number] Medical Decision Making Laboratory Data Result diagrams: 08/04/20 22:46 08/04/20 22:46 Lab Results 08/04/20 08/04/20 08/04/20 Range/Units 22:46 22:46 22:46 WBC 5.36 (4.8-10.8) K/uL RBC 3.55 L (4.2-5.4) M/uL Hgb 12.1 (12.0-16.0) g/dL Hct 34.7 L (37-47) % MCV 97.7 (80-100) fL MCH 34.1 H (25-34) pg MCHC 34.9 (32-36) g/dL RDW Std Deviation 44.5 (36.4-46.3) fL RDW Coeff of Flaquito 12.4 (11.5-14.5) % Plt Count 53 L (130-400) K/uL MPV 9.3 (7.4-10.4) fL Immature Gran % (Auto) 0.7 % Neut % (Auto) 81.7 % Lymph % (Auto) 9.0 % [place] % (Auto) 8.4 % Eos % (Auto) 0.0 % Baso % (Auto) 0.2 % Neut # (Auto) 4.38 (1.4-6.5) K/uL Lymph # (Auto) 0.48 L (1.2-3.4) K/uL [place] # (Auto) 0.45 (0.11-0.59) K/uL Eos # (Auto) 0.00 (0-0.5) K/uL Baso # (Auto) 0.01 (0-0.2) K/uL Immature Gran # (Auto) 0.04 H (0.00-0.02) K/uL Toxic Vacuolation 1+ Platelet Estimate Decreased L (Normal) PT 11.5 (9.0-12.0) Seconds INR 1.1 (0.9-1.1) APTT 27.2 (21.0-31.0) Seconds PTT Ratio 1.0 VBG pH 7.44 H (7.36-7.41) VBG pCO2 34 L (38-50) mmHg VBG pO2 72 mmHg VBG HCO3 23 mmol/L VBG O2 Saturation 95.5 % VBG Base Excess -0.7 mEq/L Barometric Pressure 729.6 mm/Hg Sodium (136-145) mmol/L Potassium (3.5-5.1) mmol/L Chloride (98-107) mmol/L Carbon Dioxide (21-32) mmol/L Anion Gap (3-11) BUN (7-18) mg/dl Creatinine (0.6-1.2) mg/dl Est Cr Clr Drug Dosing ml/min Est GFR ( Amer) ml/min Est GFR (Non-Af Amer) ml/min BUN/Creatinine Ratio (10-20) Glucose (70-99) mg/dl Lactate (0.4-2.0) mmol/L Calcium (8.5-10.1) mg/dl Magnesium (1.8-2.4) mg/dl Total Bilirubin (0.2-1) mg/dl AST (15-37) U/L ALT (12-78) U/L Alkaline Phosphatase (45-117) U/L Troponin I (0-0.045) ng/ml Total Protein (6.4-8.2) gm/dl Albumin (3.4-5.0) gm/dl Globulin (2.5-4.0) gm/dl Albumin/Globulin Ratio (0.9-2) Procalcitonin (0-0.5) ng/ml Urine Color Urine Appearance (Clear) Urine pH (4.5-7.5) Ur Specific Wilson (1.000-1.030) Urine Protein (Negative) Urine Glucose (UA) (Negative) Urine Ketones (Negative) Urine Blood (Negative) Urine Nitrite (Negative) Urine Bilirubin (Negative) Urine Urobilinogen (Negative) Ur Leukocyte Esterase (Negative) Urine WBC (Auto) (0-5) /hpf Urine RBC (Auto) (0-4) /hpf U Hyaline Cast (Auto) (0-5) /lpf U Epithel Cells (Auto) (0-5) /lpf Urine Bacteria (Auto) (Negative) Ur Renal Epithelial Cell (0-5) /lpf Urine Mucus (None Prsent) COVID-19 Eval Order SARS-CoV-2 (PCR) (Negative) 08/04/20 08/04/20 08/04/20 Range/Units 22:46 22:46 22:46 WBC (4.8-10.8) K/uL RBC (4.2-5.4) M/uL Hgb (12.0-16.0) g/dL Hct (37-47) % MCV (80-100) fL MCH (25-34) pg MCHC (32-36) g/dL RDW Std Deviation (36.4-46.3) fL RDW Coeff of [place]quito (11.5-14.5) % Plt Count (130-400) K/uL MPV (7.4-10.4) fL Immature Gran % (Auto) % Neut % (Auto) % Lymph % (Auto) % [place] % (Auto) % Eos % (Auto) % Baso % (Auto) % Neut # (Auto) (1.4-6.5) K/uL Lymph # (Auto) (1.2-3.4) K/uL [place] # (Auto) (0.11-0.59) K/uL Eos # (Auto) (0-0.5) K/uL Baso # (Auto) (0-0.2) K/uL Immature Gran # (Auto) (0.00-0.02) K/uL Toxic Vacuolation Platelet Estimate (Normal) PT (9.0-12.0) Seconds INR (0.9-1.1) APTT (21.0-31.0) Seconds PTT Ratio VBG pH (7.36-7.41) VBG pCO2 (38-50) mmHg VBG pO2 mmHg VBG HCO3 mmol/L VBG O2 Saturation % VBG Base Excess mEq/L Barometric Pressure mm/Hg Sodium 135 L (136-145) mmol/L Potassium 3.7 (3.5-5.1) mmol/L Chloride 105 (98-107) mmol/L Carbon Dioxide 22 (21-32) mmol/L Anion Gap 9.0 (3-11) BUN 15 (7-18) mg/dl Creatinine 0.39 L (0.6-1.2) mg/dl Est Cr Clr Drug Dosing 195.1 ml/min Est GFR ( Amer) > 150.0 ml/min Est GFR (Non-Af Amer) 148.0 ml/min BUN/Creatinine Ratio 37.2 H (10-20) Glucose 89 (70-99) mg/dl Lactate 0.7 (0.4-2.0) mmol/L Calcium 8.8 (8.5-10.1) mg/dl Magnesium 2.0 (1.8-2.4) mg/dl Total Bilirubin 0.2 (0.2-1) mg/dl AST 100 H (15-37) U/L ALT 85 H (12-78) U/L Alkaline Phosphatase 77 (45-117) U/L Troponin I < 0.015 (0-0.045) ng/ml Total Protein 7.2 (6.4-8.2) gm/dl Albumin 2.9 L (3.4-5.0) gm/dl Globulin 4.3 H (2.5-4.0) gm/dl Albumin/Globulin Ratio 0.7 L (0.9-2) Procalcitonin 0.42 (0-0.5) ng/ml Urine Color Urine Appearance (Clear) Urine pH (4.5-7.5) Ur Specific Wilson (1.000-1.030) Urine Protein (Negative) Urine Glucose (UA) (Negative) Urine Ketones (Negative) Urine Blood (Negative) Urine Nitrite (Negative) Urine Bilirubin (Negative) Urine Urobilinogen (Negative) Ur Leukocyte Esterase (Negative) Urine WBC (Auto) (0-5) /hpf Urine RBC (Auto) (0-4) /hpf U Hyaline Cast (Auto) (0-5) /lpf U Epithel Cells (Auto) (0-5) /lpf Urine Bacteria (Auto) (Negative) Ur Renal Epithelial Cell (0-5) /lpf Urine Mucus (None Prsent) COVID-19 Eval Order SARS-CoV-2 (PCR) (Negative) 08/04/20 08/04/20 08/04/20 Range/Units 22:50 22:50 23:54 WBC (4.8-10.8) K/uL RBC (4.2-5.4) M/uL Hgb (12.0-16.0) g/dL Hct (37-47) % MCV (80-100) fL MCH (25-34) pg MCHC (32-36) g/dL RDW Std Deviation (36.4-46.3) fL RDW Coeff of [place]quito (11.5-14.5) % Plt Count (130-400) K/uL MPV (7.4-10.4) fL Immature Gran % (Auto) % Neut % (Auto) % Lymph % (Auto) % [place] % (Auto) % Eos % (Auto) % Baso % (Auto) % Neut # (Auto) (1.4-6.5) K/uL Lymph # (Auto) (1.2-3.4) K/uL [place] # (Auto) (0.11-0.59) K/uL Eos # (Auto) (0-0.5) K/uL Baso # (Auto) (0-0.2) K/uL Immature Gran # (Auto) (0.00-0.02) K/uL Toxic Vacuolation Platelet Estimate (Normal) PT (9.0-12.0) Seconds INR (0.9-1.1) APTT (21.0-31.0) Seconds PTT Ratio VBG pH (7.36-7.41) VBG pCO2 (38-50) mmHg VBG pO2 mmHg VBG HCO3 mmol/L VBG O2 Saturation % VBG Base Excess mEq/L Barometric Pressure mm/Hg Sodium (136-145) mmol/L Potassium (3.5-5.1) mmol/L Chloride (98-107) mmol/L Carbon Dioxide (21-32) mmol/L Anion Gap (3-11) BUN (7-18) mg/dl Creatinine (0.6-1.2) mg/dl Est Cr Clr Drug Dosing ml/min Est GFR ( Amer) ml/min Est GFR (Non-Af Amer) ml/min BUN/Creatinine Ratio (10-20) Glucose (70-99) mg/dl Lactate (0.4-2.0) mmol/L Calcium (8.5-10.1) mg/dl Magnesium (1.8-2.4) mg/dl Total Bilirubin (0.2-1) mg/dl AST (15-37) U/L ALT (12-78) U/L Alkaline Phosphatase (45-117) U/L Troponin I (0-0.045) ng/ml Total Protein (6.4-8.2) gm/dl Albumin (3.4-5.0) gm/dl Globulin (2.5-4.0) gm/dl Albumin/Globulin Ratio (0.9-2) Procalcitonin (0-0.5) ng/ml Urine Color Dark Yellow Urine Appearance Clear (Clear) Urine pH 8.0 H (4.5-7.5) Ur Specific [place] 1.028 (1.000-1.030) Urine Protein 2+ H (Negative) Urine Glucose (UA) Negative (Negative) Urine Ketones 1+ H (Negative) Urine Blood Negative (Negative) Urine Nitrite Negative (Negative) Urine Bilirubin Negative (Negative) Urine Urobilinogen Negative (Negative) Ur Leukocyte Esterase Trace H (Negative) Urine WBC (Auto) 5-10 H (0-5) /hpf Urine RBC (Auto) 0-4 (0-4) /hpf U Hyaline Cast (Auto) 5-10 H (0-5) /lpf U Epithel Cells (Auto) >30 H (0-5) /lpf Urine Bacteria (Auto) 1+ H (Negative) Ur Renal Epithelial Cell 5-10 H (0-5) /lpf Urine Mucus Present A (None Prsent) COVID-19 Eval Order Covid19 at [facility] SARS-CoV-2 (PCR) NEGATIVE (Negative) Imaging Data My Impression: Chest x-ray: Left lower lobe infiltrate. ECG Data Indication: + SOB/dyspnea Rate (beats per minute): 96 Rhythm: + normal sinus ECG Intervals/blocks: + Normal [place] and + Normal QT-c ECG ST segments: + Normal ST segments Additional Comments: QRS 76 MDM Narrative 2207: The patient was evaluated in room C1. A complete history and physical exam was performed Cardiac monitoring: An order was placed for continuous cardiac monitoring. The monitor shows a rate of 80 with sinus rhythm 0000: Patient is hypotensive but it does improve with IV fluids. Lactic acid and CBC are within normal limits. Procalcitonin within normal limits. Chest x- ray does show a left lower lobe pneumonia. Patient be treated with cefepime and vancomycin. Patient will be admitted to the [facility] team Dr. Zamora's team notified. Impression & Plan Pneumonia Discharge Plan Visit Data Chief Complaint: Fever Stated Complaint: BREATHING DIFFICULTY ED Provider: Antione Mercado Discharge Problem: Pneumonia Patient Disposition: Admitted As Inpatient Forms Stand Alone Forms: [facility] Prescriptions Prescriptions: No Action ibuprofen 100 mg/5 mL suspension See Rx Instructions PO Q6H PRN (Reason: fever or pain) Qty: 473 RF: 5 acetaminophen 160 mg/5 mL liquid 640 mg PO Q6H PRN (Reason: fever or pain) Qty: 473 RF: 5 (DME) disposable gloves Misc See Rx Instructions .ROUTE .MEDSUPPLY Qty: 100 RF: 0 (DME) Day and Night Brief, Large Misc See Rx Instructions .ROUTE .MEDSUPPLY Qty: 180 RF: 5 (DME) incontinence pad, liner, disp Pad See Rx Instructions .ROUTE .MEDSUPPLY Qty: 20 RF: 0 (DME) incontinence pad, liner, disp Pad See Rx Instructions .ROUTE .MEDSUPPLY Qty: 72 RF: 0 trazodone 50 mg tablet 50 mg feeding tube HS Qty: 90 RF: 3 (DME) Miscellaneous Medical Supply (Hospital Bed) See Rx Instructions .Route .MEDSUPPLY Qty: 1 RF: 0 nitrofurantoin macrocrystal 50 mg capsule 50 mg feeding tube DAILY Qty: 90 RF: 3 cetirizine 10 mg tablet 10 mg PO DAILY Qty: 90 RF: 3 acetylcysteine 100 mg/mL (10 %) solution 3 ml inhalation BID Qty: 180 RF: 5 budesonide 0.5 mg/2 mL suspension for nebulization 0.5 mg inhalation BID Qty: 120 RF: 5 albuterol sulfate 2.5 mg /3 mL (0.083 %) solution for nebulization 2.5 mg inhalation Q4H PRN (Reason: Wheezing/ shortness of breath) Qty: 540 RF: 5 baclofen 20 mg tablet 20 mg feeding tube TID 30 Days Qty: 90 RF: 11 fluoxetine 20 mg tablet 20 mg feeding tube DAILY 30 Days Qty: 30 RF: 11 valproic acid (as sodium salt) 250 mg/5 mL solution 550 mg feeding tube TID 30 Days Qty: 990 RF: 11 zonisamide 100 mg capsule 200 mg feeding tube .COMPLEX 30 Days Qty: 90 RF: 11 Boost 0.04 gram- 1 kcal/mL Liquid 1.5 ea PO QID@,,19 RF: 0 water Liquid 120 ea PO QID@,,19 RF: 0 polyethylene glycol 3350 [Miralax] 17 gram/dose powder 8.5 g feeding tube DAILY PRN (Reason: Constipation) RF: 0 clonazepam 0.5 mg tablet,disintegrating 0.5 mg feeding tube DIRECTED PRN (Reason: PROLONGED SEIZURES) RF: 0 Xtracal Plus 14 gram-230 kcal/45 mL liquid in packet 1 ea feeding tube DAILY RF: 0 Referrals Referrals: Janet Pearce MD [Primary Care Provider] - Discharge Problem: Pneumonia Qualifiers: Pneumonia type: due to unspecified organism Laterality: left Lung location: lower lobe of lung Qualified Code(s): J18.9 - Pneumonia, unspecified organism
[2020-08-05] MEDS ORDERED: VANCOMYCIN CONSULT ACTIVE PRN (01:28)
[2020-08-05] MEDS ORDERED: PIPERACILL/TAZOBAC CONSULT ACTIVE PRN (01:28)
[2020-08-05] MEDS ORDERED: PIPERACILLIN/TAZOBACTAM 4.5 GM in DEXTROSE 5% 100 ML IV STA (02:13)
[2020-08-05] MEDS ORDERED: POLYETHYLENE (MIRALAX) 17 GM PACK PEG PRN (02:21)
[2020-08-05] MEDS ORDERED: ICU PROTOCOL FOR HYPERGLYCEMIA PRN (02:21)
--- NOTE | 2020-08-05 02:55 | Pharmacy Report ---
Pharmacy Abx Dose Short Note - Date of Service August 05, 2020 - Assessment & Plan Assessment 24 year old F receiving Vancomycin and Zosyn for treatment of pneumonia * PMHx significant for cerebral palsy, quadriplegia, tracheostomy, PEG tube * History of pseudomonas aeruginosa colonization * Cultures pending Plan Vancomycin * Loading Dose: 1500 mg (27 mg/kg) IV x 1 * Maintenance Dose: 750 mg (14 mg/kg) IV every 12 hours * Goal trough level: 15 - 20 mcg/mL * Trough ordered for August 06 prior to the 0800 dose Zosyn * 4.5 g IV extended infusion every 8 hours for CrCl > 20 mL/min and ICU status Pharmacy will continue to follow and will adjust dose/frequency as necessary. Thank you.
--- NOTE | 2020-08-05 04:30 | History & Physical Report ---
Date of Service August 04, 2020 Assessment & Plan (1) Admitted to intensive care unit: Admitted to ICU/acute on chronic respiratory failure with hypoxemia/presumptive LLL aspiration pneumonia/sepsis Placed on vancomycin IV and Zosyn IV per pharmacokinetic monitoring Continue Mucomyst 3 mls inhaled twice daily Continue albuterol high flow nebulizer every 4 hours as needed Continue Pulmicort Respules 0.5 mg inhaled twice daily Continue trach [facility] care and home ventilator unit Continue with home nutrition support and feeding pump Will have low threshold for starting Levophed for pressure support blood pressure drops persistently into the low 80s as she was for a while in the emergency department Present on Admission?: Yes (2) Acute on chronic respiratory failure with hypoxemia: See above Present on Admission?: Yes (3) Sepsis: See above Present on Admission?: Yes (4) Pneumonia: Ordering CT scan of chest, abdomen and pelvis without contrast further clarification Present on Admission?: Yes (5) Quadriplegic cerebral palsy: Continue supportive treatment Present on Admission?: Yes (6) Seizure disorder: Continue valproic acid Present on Admission?: Yes (7) Thrombocytopenia: Platelets were 53 upon admission, which is significantly below her usual baseline. Order a peripheral smear With borderline low blood pressure,, abnormal LFTs and low platelets, may be secondary to sepsis or DIC Present on Admission?: Yes (8) Abnormal LFTs: CT abdomen pelvis pending for further assessment Follow laboratory serially Present on Admission?: Yes History of Present Illness Chief Complaint: The patient is brought to the emergency department due to concerns for mother with her having developed an unusually high temperature while at home. Primary Care Provider: Janet Pearce MD The patient herself is unable to contribute to her HPI or review of systems. Her mother, who is present in the room, reports that usually when she is sick she does not have a temperature, as she did this time at home. She has not had a significant increase in her secretions, as noted by her mother. As I discussed with her mother this evening, with the patient having lower blood pressure than normal, having abnormal liver tests which is uncommon for her, and low platelets which is also uncommon for her, that she appears to be septic, and will be admitted to the ICU for further care Allergies Allergy/AdvReac Type Severity Reaction Status Date / Time No Known Allergies Allergy Verified 08/04/20 22:11 Home Medications Medication Instructions Recorded Confirmed Type Boost 1.5 ea PO QID@07,1130,15,19 07/28/18 08/04/20 History water 120 ea PO QID@07,1130,15,19 07/28/18 08/04/20 History acetaminophen 160 mg/5 mL oral 640 mg PO Q6H PRN #473 ml 12/21/18 08/04/20 Rx liquid ibuprofen 100 mg/5 mL oral See Rx Instructions PO Q6H PRN 12/21/18 08/04/20 Rx suspension #473 ml diaper,brief,adult,disposable #180 ea 05/12/19 06/26/20 Rx disposable gloves #100 ea 05/12/19 06/26/20 Rx incontinence pad, liner, disp #20 ea 05/12/19 06/26/20 Rx incontinence pad, liner, disp #72 ea 05/12/19 06/26/20 Rx trazodone 50 mg tablet 50 mg FEEDING TUBE HS #90 tab 02/20/20 08/04/20 Rx Miscellaneous Medical Supply #1 ea 02/22/20 06/26/20 Rx (Hospital Bed) nitrofurantoin macrocrystal 50 mg 50 mg FEEDING TUBE DAILY #90 cap 03/14/20 08/04/20 Rx capsule cetirizine 10 mg tablet 10 mg PO DAILY #90 tab 04/05/20 08/04/20 Rx acetylcysteine 100 mg/mL (10 %) 3 ml INHALATION BID #180 ml 06/12/20 08/04/20 Rx solution albuterol sulfate 2.5 mg INHALATION Q4H PRN #540 ml 06/12/20 08/04/20 Rx budesonide 0.5 mg/2 mL suspension 0.5 mg INHALATION BID #120 ml 06/12/20 08/04/20 Rx for nebulization baclofen 20 mg tablet 20 mg FEEDING TUBE TID 30 Days #90 06/26/20 08/04/20 Rx tab fluoxetine 20 mg tablet 20 mg FEEDING TUBE DAILY 30 Days 06/26/20 08/04/20 Rx #30 tab valproic acid (as sodium salt) 250 550 mg FEEDING TUBE TID 30 Days 06/26/20 08/04/20 Rx mg/5 mL oral solution #990 ml zonisamide 100 mg capsule 200 mg FEEDING TUBE .COMPLEX 30 06/26/20 08/04/20 Rx Days #90 cap clonazepam 0.5 mg FEEDING TUBE DIRECTED PRN 08/04/20 08/04/20 History nut.tx.,elemental,jex-jduz-ktw 1 ea FEEDING TUBE DAILY 08/04/20 08/04/20 History [Xtracal Plus] polyethylene glycol 3350 [Miralax] 8.5 g FEEDING TUBE DAILY PRN 08/04/20 08/04/20 History Past Med/Surg History Medical History Allergic rhinitis Chronic respiratory failure with hypoxia and hypercapnia Cortical blindness Depression with anxiety Insomnia 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 Seizure disorder Surgical History History of tracheostomy S/P percutaneous endoscopic gastrostomy (PEG) tube placement Family History Brother Asthma Other Coronary heart disease Family history non-contributory Hypertension Social History Smoking Status: Never smoker Second Hand Exposure: No; Hx Alcohol Use: No Hx Substance Use: No Preferred Language: [place] Communication Ability: Unable Communication Ability Comment: HX of 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 HEENT--PERRL, EOMI, mucous membranes and oropharynx dry. Neck--supple. No JVD. No bruits. Thyroid normal, trachea midline, no adenopathy. Heart--normal S1 and S2. No murmurs, rubs or gallops. Lungs--coarse breath sounds left greater than right. No respiratory distress, no accessory muscle use. Abdomen--normal bowel sounds and soft. Nontender. Nondistended, no hernias or masses, no organomegaly. Extremities--no cyanosis or clubbing. No edema. Dermatologic--normal skin turgor, normal color, no abnormal lymph nodes, no rash. Neurologic--limited exam Rheumatologic--Limited exam p Psychiatric--nonresponsive. Results & Data Results & Data ([facility]) Vital Signs (Past 12 Hours) Vital Signs Temp Pulse Resp BP Pulse Ox 08/04/20 22:53 112 H 16 92 08/04/20 21:24 97.3 F L 112 H 16 105/77 92 Laboratory Results Laboratory Results WBC 5.36 K/uL (4.8-10.8) 08/04/20 22:46 RBC 3.55 M/uL (4.2-5.4) L 08/04/20 22:46 Hgb 12.1 g/dL (12.0-16.0) 08/04/20 22:46 Hct 34.7 % (37-47) L 08/04/20 22:46 MCV 97.7 fL (80-100) 08/04/20 22:46 MCH 34.1 pg (25-34) H 08/04/20 22:46 MCHC 34.9 g/dL (32-36) 08/04/20 22:46 RDW Std Deviation 44.5 fL (36.4-46.3) 08/04/20 22:46 RDW Coeff of [place] 12.4 % (11.5-14.5) 08/04/20 22:46 Plt Count 53 K/uL (130-400) L 08/04/20 22:46 MPV 9.3 fL (7.4-10.4) 08/04/20 22:46 Immature Gran % (Auto) 0.7 % 08/04/20 22:46 Neut % (Auto) 81.7 % 08/04/20 22:46 Lymph % (Auto) 9.0 % 08/04/20 22:46 Clinch % (Auto) 8.4 % 08/04/20 22:46 Eos % (Auto) 0.0 % 08/04/20 22:46 Baso % (Auto) 0.2 % 08/04/20 22:46 Neut # (Auto) 4.38 K/uL (1.4-6.5) 08/04/20 22:46 Lymph # (Auto) 0.48 K/uL (1.2-3.4) L 08/04/20 22:46 Clinch # (Auto) 0.45 K/uL (0.11-0.59) 08/04/20 22:46 Eos # (Auto) 0.00 K/uL (0-0.5) 08/04/20 22:46 Baso # (Auto) 0.01 K/uL (0-0.2) 08/04/20 22:46 Immature Gran # (Auto) 0.04 K/uL (0.00-0.02) H 08/04/20 22:46 Toxic Vacuolation 1+ 08/04/20 22:46 Platelet Estimate Decreased (Normal) L 08/04/20 22:46 PT 11.5 Seconds (9.0-12.0) 08/04/20 22:46 INR 1.1 (0.9-1.1) 08/04/20 22:46 APTT 27.2 Seconds (21.0-31.0) 08/04/20 22:46 PTT Ratio 1.0 08/04/20 22:46 VBG pH 7.44 (7.36-7.41) H 08/04/20 22:46 VBG pCO2 34 mmHg (38-50) L 08/04/20 22:46 VBG pO2 72 mmHg 08/04/20 22:46 VBG HCO3 23 mmol/L 08/04/20 22:46 VBG O2 Saturation 95.5 % 08/04/20 22:46 VBG Base Excess -0.7 mEq/L 08/04/20 22:46 Barometric Pressure 729.6 mm/Hg 08/04/20 22:46 Sodium 135 mmol/L (136-145) L 08/04/20 22:46 Potassium 3.7 mmol/L (3.5-5.1) 08/04/20 22:46 Chloride 105 mmol/L (98-107) 08/04/20 22:46 Carbon Dioxide 22 mmol/L (21-32) 08/04/20 22:46 Anion Gap 9.0 (3-11) 08/04/20 22:46 BUN 15 mg/dl (7-18) 08/04/20 22:46 Creatinine 0.39 mg/dl (0.6-1.2) L 08/04/20 22:46 Est Cr Clr Drug Dosing 195.1 ml/min 08/04/20 22:46 Est GFR ( Amer) > 150.0 ml/min 08/04/20 22:46 Est GFR (Non-Af Amer) 148.0 ml/min 08/04/20 22:46 BUN/Creatinine Ratio 37.2 (10-20) H 08/04/20 22:46 Glucose 89 mg/dl (70-99) 08/04/20 22:46 Lactate 0.7 mmol/L (0.4-2.0) 08/04/20 22:46 Calcium 8.8 mg/dl (8.5-10.1) 08/04/20 22:46 Magnesium 2.0 mg/dl (1.8-2.4) 08/04/20 22:46 Total Bilirubin 0.2 mg/dl (0.2-1) 08/04/20 22:46 AST 100 U/L (15-37) H 08/04/20 22:46 ALT 85 U/L (12-78) H 08/04/20 22:46 Alkaline Phosphatase 77 U/L (45-117) 08/04/20 22:46 Troponin I < 0.015 ng/ml (0-0.045) 08/04/20 22:46 Total Protein 7.2 gm/dl (6.4-8.2) 08/04/20 22:46 Albumin 2.9 gm/dl (3.4-5.0) L 08/04/20 22:46 Globulin 4.3 gm/dl (2.5-4.0) H 08/04/20 22:46 Albumin/Globulin Ratio 0.7 (0.9-2) L 08/04/20 22:46 Procalcitonin 0.42 ng/ml (0-0.5) 08/04/20 22:46 Urine Color Dark Yellow 08/04/20 23:54 Urine Appearance Clear (Clear) 08/04/20 23:54 Urine pH 8.0 (4.5-7.5) H 08/04/20 23:54 Ur Specific Weinert 1.028 (1.000-1.030) 08/04/20 23:54 Urine Protein 2+ (Negative) H 08/04/20 23:54 Urine Glucose (UA) Negative (Negative) 08/04/20 23:54 Urine Ketones 1+ (Negative) H 08/04/20 23:54 Urine Blood Negative (Negative) 08/04/20 23:54 Urine Nitrite Negative (Negative) 08/04/20 23:54 Urine Bilirubin Negative (Negative) 08/04/20 23:54 Urine Urobilinogen Negative (Negative) 08/04/20 23:54 Ur Leukocyte Esterase Trace (Negative) H 08/04/20 23:54 Urine WBC (Auto) 5-10 /hpf (0-5) H 08/04/20 23:54 Urine RBC (Auto) 0-4 /hpf (0-4) 08/04/20 23:54 U Hyaline Cast (Auto) 5-10 /lpf (0-5) H 08/04/20 23:54 U Epithel Cells (Auto) >30 /lpf (0-5) H 08/04/20 23:54 Urine Bacteria (Auto) 1+ (Negative) H 08/04/20 23:54 Ur Renal Epithelial Cell 5-10 /lpf (0-5) H 08/04/20 23:54 Urine Mucus Present (None Prsent) A 08/04/20 23:54 COVID-19 Eval Order Covid19 at [facility] 08/04/20 22:50 SARS-CoV-2 (PCR) NEGATIVE (Negative) 08/04/20 22:50 Blood Type B Positive 08/04/20 22:46 Antibody Screen NEGATIVE 08/04/20 22:46 Diagnostic Findings Code Status & VTE Plan Code Status DNR/DNI. We will continue her home ventilator and trach collar VTE Prophylaxis Plan VTE Prophylaxis will be ordered: Yes Critical Care Time Critical Care Time: Yes Total Critical Care Time: 50 PG Care Time/CCT Total # of Minutes Spent Total Time Spent with Patient: Total time spent is greater than 50% in coordination of care (as documented) at patient's floor/unit and/or counseling patient: Critical Care Time: Yes Total Critical Care Time: 50 Coding Level of Care Code 26524 Initial Inpt Care Lvl 3 Diagnoses Admitted to intensive care unit Z78.9 Acute on chronic respiratory failure with hypoxemia J96.21 Sepsis A41.9 Pneumonia J18.9 Laterality: left Lung location: lower lobe of lung Pneumonia type: due to unspecified organism Quadriplegic cerebral palsy G80.8 Seizure disorder G40.909 Thrombocytopenia D69.6 Abnormal LFTs R94.5 Additional Codes Critical Care Time - Critical Care Time: Yes ([id number]) Time Spent (min) 50 (1) Pneumonia Laterality: left Lung location: lower lobe of lung Pneumonia type: due to unspecified organism Qualified Code(s): J18.9 - Pneumonia, unspecified organism
[2020-08-05] MEDS: FAMOTIDINE 20 MG in SYRINGE 3 ML IV SCH ×3 (04:34→21:11)
[2020-08-05] MEDS: NSS + 20MEQ KCL 20 MEQ/1,000 ML BAG IV SCH ×3 (04:34→21:11)
[2020-08-05 05:39] LABS: Hematocrit (blood only) 33.7 % (37-47); Hemoglobin 11.3 g/dL (12.0-16.0); Mean Corpuscular Hemoglobin 33.3 pg (25-34); Mean Corpuscular Hgb Conc 33.5 g/dL (32-36); Mean Corpuscular Volume 99.4 fL (80-100); RDW Coefficient of Variation 12.8 % (11.5-14.5); RDW Standard Deviation 46.8 fL (36.4-46.3); Red Blood Count 3.39 M/uL (4.2-5.4); White Blood Count 2.12 K/uL (4.8-10.8)
[2020-08-05 05:42] LABS: Mean Platelet Volume 9.4 fL (7.4-10.4); Platelet Count 40 K/uL (130-400)
[2020-08-05 05:50] LABS: INR 1.2 (0.9-1.1); Partial Thromboplastin Ratio 1.1; Partial Thromboplastin Time 28.9 Seconds (21.0-31.0); Prothrombin Time 11.8 Seconds (9.0-12.0)
[2020-08-05 06:18] LABS: Alanine Aminotransferase 76 U/L (12-78); Albumin Level 2.6 gm/dl (3.4-5.0); Alkaline Phosphatase 69 U/L (45-117); Aspartate Aminotransferase 96 U/L (15-37); BUN Creatinine Ratio 27.6 (10-20); Bilirubin Direct < 0.1 mg/dl (0-0.2); Bilirubin,Total 0.3 mg/dl (0.2-1); Blood Urea Nitrogen 9 mg/dl (7-18); Calcium 7.9 mg/dl (8.5-10.1); Carbon Dioxide 20 mmol/L (21-32); Chloride 117 mmol/L (98-107); Creatinine Clr Calc Pharmacy 230.2 ml/min; Est GFR (African American) > 150.0 ml/min; Est GFR (Non-African American) > 150.0 ml/min; Glucose 71 mg/dl (70-99); Magnesium 2.1 mg/dl (1.8-2.4); Phosphorus 3.8 mg/dl (2.5-4.9); Potassium 3.7 mmol/L (3.5-5.1); Sodium 145 mmol/L (136-145); Total Protein 6.1 gm/dl (6.4-8.2)
[2020-08-05] MEDS: ALBUMIN 25% 12.5 GM/50 ML VIAL IV SCH ×2 (06:26→07:29)
[2020-08-05 06:27] LABS: Immature Granulocytes # (auto) 0.02 K/uL (0.00-0.02); Immature Granulocytes % (auto) 0.9 %; Lymphocytes # (auto) 0.45 K/uL (1.2-3.4); Lymphocytes % (auto) 21.2 %; Monocytes # (auto) 0.19 K/uL (0.11-0.59); Neutrophils # (auto) 1.46 K/uL (1.4-6.5); Neutrophils % (auto) 68.9 %
[2020-08-05] MEDS ORDERED: NON-FORMULARY MEDICATION (Food Supplemt, Lactose-Reduced [Boost] 0.04 gram- 1 kcal/mL Liqu PO SCH (07:00)
--- NOTE | 2020-08-05 07:06 | XRay Report ---
XR chest 1V portable CLINICAL HISTORY: SEPSIS COMPARISON STUDY: 01/10/2020 FINDINGS: There is a tracheostomy tube 6.5 cm above the alannah. The heart is normal in size. There ar e persistent airspace opacities the left lung base, atelectatic versus infectious/inflammatory. There is linear subsegmental atelectasis the right lung base. There is no pneumothorax.[ IMPRESSION: Persistent left basilar airspace opacities, atelectatic versus infectious/inflammatory. ACT 112: Negative or not required by law. Electronically signed by: Galen Ham M.D. 08/05/2020 7:05 AM
[2020-08-05] MEDS: ACETYLCYSTEINE 10% INHAL SOLN 4 ML **DISPENSED BY RESP. INH SCH ×2 (07:39→18:54)
[2020-08-05] MEDS: BUDESONIDE 0.5 MG/2 ML VIAL (PULMICORT) INH SCH ×2 (07:39→19:21)
[2020-08-05] MEDS: ALBUTEROL 0.083% NEBU SOLN 3 ML VIAL INH PRN ×2 (07:39→18:54)
[2020-08-05] MEDS ORDERED: VANCOMYCIN HCL 750 MG in SODIUM CHLORIDE 0.9% 250 ML IV SCH (08:00)
--- NOTE | 2020-08-05 08:14 | CT Scan Report ---
CT SCAN OF THE ABDOMEN AND PELVIS WITHOUT CONTRAST CLINICAL HISTORY: abnormal LFT's, pneumonia, sepsis COMPARISON STUDY: 06/17/2017 TECHNIQUE: CT scan of the abdomen and pelvis was performed from the lung bases to the proximal femurs . Images are reviewed in the axial, sagittal, and coronal planes. IV contrast was not administered fo r this examination. A dose lowering technique was utilized adhering to the principles of ALARA. CT DOSE: 647.04 mGy.cm FINDINGS: Lower chest: There are bilateral lower lobe airspace opacities with air bronchograms left greater maira n right. A pneumonia is suspected. Liver: The unenhanced liver is normal in size, contour, and attenuation. There is no intrahepatic frank iary ductal dilatation. Gallbladder: Unremarkable. Spleen: Mildly enlarged Pancreas: Unremarkable. Adrenal glands: Unremarkable. Kidneys: There is mild fullness of both renal collecting systems. No calculi are visualized. Bowel: There are no transition zones indicate bowel obstruction. There is moderate rectosigmoid stool . A gastrostomy tube is visualized. There is no evidence of acute diverticulitis. There is no evidenc e of acute appendicitis. Peritoneum: There is no intraperitoneal free air or abdominal ascites. Vasculature: The abdominal aorta is normal in course and caliber. Adenopathy: None. Pelvic viscera: There is a thick-walled bladder containing a droplet of air. Clinical correlation wit h regards to recent indentation recommended. There is a distended fluid-filled vagina. Skeletal structures: No destructive osseous lesions are seen. IMPRESSION: 1. Examination limited due to the lack of intravenous and oral contrast. 2. Bilateral lower lobe pulmonary consolidation. Clinical correlation with regards to pneumonia recom mended 3. No evidence of bowel obstruction. No evidence of free air 4. No evidence of acute appendicitis. No evidence of acute diverticulitis. 5. Indwelling gastrostomy tube. 6. Mild bilateral renal pelvic dilatation. No calculi identified 7. Moderate stool within the rectal vault. Scattered colonic and small bowel air fluid levels. 8. Gas within a collapsed thick-walled bladder. Clinical correlation regards to recent instrumentatio n recommended ACT 112: Negative or not required by law. Electronically signed by: Galen Ham M.D. 08/05/2020 8:12 AM
--- NOTE | 2020-08-05 08:22 | CT Scan Report ---
CT OF THE CHEST WITHOUT IV CONTRAST CLINICAL HISTORY: pneumonia, hypoxia, sepsis COMPARISON STUDY: Chest radiograph August 04, 2020. Chest CT July 22, 2018. TECHNIQUE: Axial images of the chest were obtained without IV contrast. Images were reviewed in the axial, sagittal, and coronal planes. IV contrast was not administered for this examination. Automat ed exposure control was utilized for the study. A dose lowering technique was utilized adhering to t he principles of ALARA. FINDINGS: Tracheostomy tube is in place. Aberrant right subclavian artery is better depicted on prio r contrast enhanced CT. Size of the heart is normal. There is no pericardial effusion. There is no pn eumothorax. No significant pleural effusion is noted. Lungs are suboptimally assessed due to respirat ory motion. There are extensive secretions within the distal left mainstem bronchus extending into le ft lower lobe bronchi. There is extensive left lower lobe airspace opacity. Moderate right lower lobe airspace opacity is present. Diffuse bronchial wall thickening is noted. No acute fracture or suspic ious lesion is identified within the visualized skeletal structures. The abdomen and pelvis will be r eported separately. IMPRESSION: 1. Secretions within the distal left main stem bronchus extending into the left lower lobe bronchi. E xtensive left lower lobe airspace opacity which may reflect pneumonia or aspiration pneumonitis. Mode rate right lower lobe airspace opacity. 2. Tracheostomy tube in place. ACT 112: Negative or not required by law. Electronically signed by: Otto Pearce M.D. 08/05/2020 8:21 AM
[2020-08-05] MEDS: TUBE FEEDING WATER FLUSH NG SCH ×4 (08:34→21:13)
--- NOTE | 2020-08-05 08:50 | Critical Care Consultation ---
Date of Consultation August 05, 2020 Assessment & Plan (1) Acute on chronic respiratory failure with hypoxemia: Reason Critically Ill: 24-year-old female with chronic tracheostomy dependence who was admitted for sepsis PLAN: Neuro: Cerebral palsy -Continue home medication Resp: Acute on chronic respiratory failure Tracheostomy dependent -Continue night ventilator -Mucoid impaction of the left lower lobe bronchus versus pneumonia CV: Tachycardia: Resolved Fluids/Renal: Continue maintenance fluids -Awaiting tube feed formulation from family ID: Sepsis -Continue vancomycin -History of chronic pseudomonal colonization -Transition from cefepime to Zosyn for abdominal coverage as well as given previous sensitivities of intermediate resistance of Pseudomonas to cefepime GI/Nutrition: Transaminitis: Mild -CT scan findings of thickened gallbladder wall and air noted -With collapsed gallbladder right upper quadrant ultrasound of limited utility -GGT is reference lab of the limited utility Heme: Leukopenia Anemia Thrombocytopenia -Thrombocytopenia appears to occur with acute exacerbations of disease based on prior records DVT prophylaxis: Patient nonambulatory times years mechanical and pharmacologic DVT prophylaxis contraindicated Endocrine: ICU hyperglycemia protocol Vascular access: Peripheral IVs Code Status: DNR/DNI in event of cardiac arrest Disposition: ICU (2) Abnormal LFTs: (3) Thrombocytopenia: (4) Sepsis: Supervising Physician Co-Signing Physician Notes Case was discussed with bedside nurse I have personally spent 45 minutes of critical care time in the direct management of this patient. This is a life/limb threatening event. This includes time spent evaluating patient, direct bedside care, chart review, placing orders, interpretation of diagnostic studies, discussion with consultants, patient, and/or family members regarding treatment decisions, as well as other required patient management activities. This time is exclusive of all separately billable procedures, and teaching time and separate from and in addition to any other critical care service time. History of Present Illness Reason for Consultation: Sepsis Requesting Physician: Vishal Cain Attending Physician: Bakari Burk DO History of Present Illness Patient is a 24-year-old female with severe cerebral palsy who is tracheostomy dependent and is on a ventilator at night she presented to the emergency department for fever of 103 and increased work of breathing. Patient was found to have sepsis and responded to IV fluids for her hypotension, there was concern for left lower lobe pneumonia she was started on cefepime and vancomycin and admitted to the ICU for further evaluation and management. Allergies Allergy/AdvReac Type Severity Reaction Status Date / Time No Known Allergies Allergy Verified 08/04/20 22:11 Home Medications Medication Instructions Recorded Confirmed Type Boost 1.5 ea PO QID@07,1130,,07/28/18 08/04/20 History water 120 ea PO QID@07,1130,15,19 07/28/18 08/04/20 History acetaminophen 160 mg/5 mL oral 640 mg PO Q6H PRN #473 ml 12/21/18 08/04/20 Rx liquid ibuprofen 100 mg/5 mL oral See Rx Instructions PO Q6H PRN 12/21/18 08/04/20 Rx suspension #473 ml diaper,brief,adult,disposable #180 ea 05/12/19 06/26/20 Rx disposable gloves #100 ea 05/12/19 06/26/20 Rx incontinence pad, liner, disp #20 ea 05/12/19 06/26/20 Rx incontinence pad, liner, disp #72 ea 05/12/19 06/26/20 Rx trazodone 50 mg tablet 50 mg FEEDING TUBE HS #90 tab 02/20/20 08/04/20 Rx Miscellaneous Medical Supply #1 ea 02/22/20 06/26/20 Rx (Hospital Bed) nitrofurantoin macrocrystal 50 mg 50 mg FEEDING TUBE DAILY #90 cap 03/14/20 08/04/20 Rx capsule cetirizine 10 mg tablet 10 mg PO DAILY #90 tab 04/05/20 08/04/20 Rx acetylcysteine 100 mg/mL (10 %) 3 ml INHALATION BID #180 ml 06/12/20 08/04/20 Rx solution albuterol sulfate 2.5 mg INHALATION Q4H PRN #540 ml 06/12/20 08/04/20 Rx budesonide 0.5 mg/2 mL suspension 0.5 mg INHALATION BID #120 ml 06/12/20 08/04/20 Rx for nebulization baclofen 20 mg tablet 20 mg FEEDING TUBE TID 30 Days #90 06/26/20 08/04/20 Rx tab fluoxetine 20 mg tablet 20 mg FEEDING TUBE DAILY 30 Days 06/26/20 08/04/20 Rx #30 tab valproic acid (as sodium salt) 250 550 mg FEEDING TUBE TID 30 Days 06/26/20 08/04/20 Rx mg/5 mL oral solution #990 ml zonisamide 100 mg capsule 200 mg FEEDING TUBE .COMPLEX 30 06/26/20 08/04/20 Rx Days #90 cap clonazepam 0.5 mg FEEDING TUBE DIRECTED PRN 08/04/20 08/04/20 History nut.tx.,elemental,mxq-efyt-dud 1 ea FEEDING TUBE DAILY 08/04/20 08/04/20 History [Xtracal Plus] polyethylene glycol 3350 [Miralax] 8.5 g FEEDING TUBE DAILY PRN 08/04/20 08/04/20 History Patient History Medical History Allergic rhinitis Chronic respiratory failure with hypoxia and hypercapnia Cortical blindness Depression with anxiety Insomnia 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 Seizure disorder Surgical History History of tracheostomy S/P percutaneous endoscopic gastrostomy (PEG) tube placement Family History Brother Asthma Other Coronary heart disease Family history non-contributory Hypertension Social History Smoking Status: Never smoker Second Hand Exposure: No; Hx Alcohol Use: No Hx Substance Use: No Preferred Language: Bengali Communication Ability: Unable Communication Ability Comment: HX of Cerbral Palsy [employer] Required: No Beliefs That Will Affect Care: None Current Living Situation: Parent Current Living Situation Comment: parent Feels Safe at Home: Yes Safety Concerns: Feels Safe At This Time Assistive Devices: Oxygen - Continuous Assistive Devices Comment: Home Ventilator Review of Systems Review of Systems: Unobtainable due to cognitive status Physical Exam Physical Exam: General: Alert. Skin: Warm, dry, Head: Atraumatic Ears, nose, mouth and throat: Tracheostomy in place and patent Cardiovascular: Normal peripheral perfusion Respiratory: Mild tachypnea Gastrointestinal: Non distended Musculoskeletal: Bilateral contractures x4 Results & Data Results & Data ([facility]) Vital Signs (Past 12 Hours) Vital Signs Temp Pulse Pulse Resp BP BP Pulse Ox 08/05/20 07:40 76 28 H 99 08/05/20 06:00 36.5 C 79 96 08/05/20 05:30 36.6 C 79 96 08/05/20 05:13 36.8 C 91 H 94/56 L 96 08/05/20 05:00 36.8 C 99 H 89 L 08/05/20 04:35 105 H 22 98 08/05/20 04:30 36.7 C 106 H 99 08/05/20 04:14 36.5 C 108 H 114/82 96 08/05/20 04:00 36.4 C L 108 H 98 08/05/20 03:30 36.4 C L 75 97 08/05/20 03:13 36.4 C L 93 H 120/65 84 L 08/05/20 03:00 36.4 C L 83 86 L 08/05/20 02:45 36.4 C L 89 86 L 08/05/20 02:30 36.4 C L 83 93 08/05/20 02:25 36.4 C L 89 92 08/05/20 02:22 36.4 C L 87 20 124/74 96 08/05/20 01:15 82 26 H 93/51 L 96 08/05/20 01:02 80 21 91/52 L 96 08/05/20 00:45 77 27 H 81/46 L 95 08/05/20 00:30 81 25 H 80/43 L 95 08/05/20 00:15 87 23 85/48 L 92 08/05/20 00:03 24 92 08/04/20 23:38 93 H 20 98/54 L 94 08/04/20 23:32 92 H 26 H 65/34 L 95 08/04/20 23:30 90 24 77/47 L 95 08/04/20 23:00 90 27 H 91/56 L 94 08/04/20 22:53 112 H 16 92 08/04/20 22:30 103 H 25 H 94/63 L 90 08/04/20 22:00 99 H 27 H 90/56 L 92 08/04/20 21:35 114 H 14 105/77 94 08/04/20 21:24 36.3 C L 112 H 16 105/77 92 Laboratory Results 08/05/20 08/05/20 08/05/20 Range/Units 05:07 05:07 05:07 WBC 2.12 L (4.8-10.8) K/uL RBC 3.39 L (4.2-5.4) M/uL Hgb 11.3 L (12.0-16.0) g/dL Hct 33.7 L (37-47) % MCV 99.4 (80-100) fL MCH 33.3 (25-34) pg MCHC 33.5 (32-36) g/dL RDW Std Deviation 46.8 H (36.4-46.3) fL RDW Coeff of [place] 12.8 (11.5-14.5) % Plt Count 40 L (130-400) K/uL MPV 9.4 (7.4-10.4) fL Immature Gran % (Auto) 0.9 % Neut % (Auto) 68.9 % Lymph % (Auto) 21.2 % [place] % (Auto) 9.0 % Eos % (Auto) 0.0 % Baso % (Auto) 0.0 % Neut # (Auto) 1.46 (1.4-6.5) K/uL Lymph # (Auto) 0.45 L (1.2-3.4) K/uL [place] # (Auto) 0.19 (0.11-0.59) K/uL Eos # (Auto) 0.00 (0-0.5) K/uL Baso # (Auto) 0.00 (0-0.2) K/uL Immature Gran # (Auto) 0.02 (0.00-0.02) K/uL Toxic Vacuolation Platelet Estimate (Normal) Peripher Smr Path Cons Pending PT 11.8 (9.0-12.0) Seconds INR 1.2 H (0.9-1.1) APTT 28.9 (21.0-31.0) Seconds PTT Ratio 1.1 VBG pH (7.36-7.41) VBG pCO2 (38-50) mmHg VBG pO2 mmHg VBG HCO3 mmol/L VBG O2 Saturation % VBG Base Excess mEq/L Barometric Pressure mm/Hg Sodium 145 D (136-145) mmol/L Potassium 3.7 (3.5-5.1) mmol/L Chloride 117 H (98-107) mmol/L Carbon Dioxide 20 L (21-32) mmol/L Anion Gap 7.0 (3-11) BUN 9 D (7-18) mg/dl Creatinine 0.33 L (0.6-1.2) mg/dl Est Cr Clr Drug Dosing 230.2 ml/min Est GFR ( Amer) > 150.0 ml/min Est GFR (Non-Af Amer) > 150.0 ml/min BUN/Creatinine Ratio 27.6 H (10-20) Glucose 71 (70-99) mg/dl Lactate (0.4-2.0) mmol/L Calcium 7.9 L (8.5-10.1) mg/dl Phosphorus 3.8 (2.5-4.9) mg/dl Magnesium 2.1 (1.8-2.4) mg/dl Total Bilirubin 0.3 (0.2-1) mg/dl Direct Bilirubin < 0.1 (0-0.2) mg/dl AST 96 H (15-37) U/L ALT 76 (12-78) U/L Alkaline Phosphatase 69 (45-117) U/L Troponin I (0-0.045) ng/ml Total Protein 6.1 L (6.4-8.2) gm/dl Albumin 2.6 L (3.4-5.0) gm/dl Globulin (2.5-4.0) gm/dl Albumin/Globulin Ratio (0.9-2) Procalcitonin (0-0.5) ng/ml Urine Color Urine Appearance (Clear) Urine pH (4.5-7.5) Ur Specific [place] (1.000-1.030) Urine Protein (Negative) Urine Glucose (UA) (Negative) Urine Ketones (Negative) Urine Blood (Negative) Urine Nitrite (Negative) Urine Bilirubin (Negative) Urine Urobilinogen (Negative) Ur Leukocyte Esterase (Negative) Urine WBC (Auto) (0-5) /hpf Urine RBC (Auto) (0-4) /hpf U Hyaline Cast (Auto) (0-5) /lpf U Epithel Cells (Auto) (0-5) /lpf Urine Bacteria (Auto) (Negative) Ur Renal Epithelial Cell (0-5) /lpf Urine Mucus (None Prsent) Nasal Screen MRSA (PCR) (Negative) COVID-19 Eval Order SARS-CoV-2 (PCR) (Negative) Blood Type Antibody Screen 08/05/20 08/04/20 08/04/20 Range/Units 02:30 23:54 22:50 WBC (4.8-10.8) K/uL RBC (4.2-5.4) M/uL Hgb (12.0-16.0) g/dL Hct (37-47) % MCV (80-100) fL MCH (25-34) pg MCHC (32-36) g/dL RDW Std Deviation (36.4-46.3) fL RDW Coeff of [place] (11.5-14.5) % Plt Count (130-400) K/uL MPV (7.4-10.4) fL Immature Gran % (Auto) % Neut % (Auto) % Lymph % (Auto) % [place] % (Auto) % Eos % (Auto) % Baso % (Auto) % Neut # (Auto) (1.4-6.5) K/uL Lymph # (Auto) (1.2-3.4) K/uL [place] # (Auto) (0.11-0.59) K/uL Eos # (Auto) (0-0.5) K/uL Baso # (Auto) (0-0.2) K/uL Immature Gran # (Auto) (0.00-0.02) K/uL Toxic Vacuolation Platelet Estimate (Normal) Peripher Smr Path Cons PT (9.0-12.0) Seconds INR (0.9-1.1) APTT (21.0-31.0) Seconds PTT Ratio VBG pH (7.36-7.41) VBG pCO2 (38-50) mmHg VBG pO2 mmHg VBG HCO3 mmol/L VBG O2 Saturation % VBG Base Excess mEq/L Barometric Pressure mm/Hg Sodium (136-145) mmol/L Potassium (3.5-5.1) mmol/L Chloride (98-107) mmol/L Carbon Dioxide (21-32) mmol/L Anion Gap (3-11) BUN (7-18) mg/dl Creatinine (0.6-1.2) mg/dl Est Cr Clr Drug Dosing ml/min Est GFR ( Amer) ml/min Est GFR (Non-Af Amer) ml/min BUN/Creatinine Ratio (10-20) Glucose (70-99) mg/dl Lactate (0.4-2.0) mmol/L Calcium (8.5-10.1) mg/dl Phosphorus (2.5-4.9) mg/dl Magnesium (1.8-2.4) mg/dl Total Bilirubin (0.2-1) mg/dl Direct Bilirubin (0-0.2) mg/dl AST (15-37) U/L ALT (12-78) U/L Alkaline Phosphatase (45-117) U/L Troponin I (0-0.045) ng/ml Total Protein (6.4-8.2) gm/dl Albumin (3.4-5.0) gm/dl Globulin (2.5-4.0) gm/dl Albumin/Globulin Ratio (0.9-2) Procalcitonin (0-0.5) ng/ml Urine Color Dark Yellow Urine Appearance Clear (Clear) Urine pH 8.0 H (4.5-7.5) Ur Specific [place] 1.028 (1.000-1.030) Urine Protein 2+ H (Negative) Urine Glucose (UA) Negative (Negative) Urine Ketones 1+ H (Negative) Urine Blood Negative (Negative) Urine Nitrite Negative (Negative) Urine Bilirubin Negative (Negative) Urine Urobilinogen Negative (Negative) Ur Leukocyte Esterase Trace H (Negative) Urine WBC (Auto) 5-10 H (0-5) /hpf Urine RBC (Auto) 0-4 (0-4) /hpf U Hyaline Cast (Auto) 5-10 H (0-5) /lpf U Epithel Cells (Auto) >30 H (0-5) /lpf Urine Bacteria (Auto) 1+ H (Negative) Ur Renal Epithelial Cell 5-10 H (0-5) /lpf Urine Mucus Present A (None Prsent) Nasal Screen MRSA (PCR) Negative (Negative) COVID-19 Eval Order SARS-CoV-2 (PCR) NEGATIVE (Negative) Blood Type Antibody Screen 08/04/20 08/04/20 08/04/20 Range/Units 22:50 22:46 22:46 WBC (4.8-10.8) K/uL RBC (4.2-5.4) M/uL Hgb (12.0-16.0) g/dL Hct (37-47) % MCV (80-100) fL MCH (25-34) pg MCHC (32-36) g/dL RDW Std Deviation (36.4-46.3) fL RDW Coeff of [place] (11.5-14.5) % Plt Count (130-400) K/uL MPV (7.4-10.4) fL Immature Gran % (Auto) % Neut % (Auto) % Lymph % (Auto) % [place] % (Auto) % Eos % (Auto) % Baso % (Auto) % Neut # (Auto) (1.4-6.5) K/uL Lymph # (Auto) (1.2-3.4) K/uL [place] # (Auto) (0.11-0.59) K/uL Eos # (Auto) (0-0.5) K/uL Baso # (Auto) (0-0.2) K/uL Immature Gran # (Auto) (0.00-0.02) K/uL Toxic Vacuolation Platelet Estimate (Normal) Peripher Smr Path Cons PT (9.0-12.0) Seconds INR (0.9-1.1) APTT (21.0-31.0) Seconds PTT Ratio VBG pH (7.36-7.41) VBG pCO2 (38-50) mmHg VBG pO2 mmHg VBG HCO3 mmol/L VBG O2 Saturation % VBG Base Excess mEq/L Barometric Pressure mm/Hg Sodium (136-145) mmol/L Potassium (3.5-5.1) mmol/L Chloride (98-107) mmol/L Carbon Dioxide (21-32) mmol/L Anion Gap (3-11) BUN (7-18) mg/dl Creatinine (0.6-1.2) mg/dl Est Cr Clr Drug Dosing ml/min Est GFR ( Amer) ml/min Est GFR (Non-Af Amer) ml/min BUN/Creatinine Ratio (10-20) Glucose (70-99) mg/dl Lactate (0.4-2.0) mmol/L Calcium (8.5-10.1) mg/dl Phosphorus (2.5-4.9) mg/dl Magnesium (1.8-2.4) mg/dl Total Bilirubin (0.2-1) mg/dl Direct Bilirubin (0-0.2) mg/dl AST (15-37) U/L ALT (12-78) U/L Alkaline Phosphatase (45-117) U/L Troponin I (0-0.045) ng/ml Total Protein (6.4-8.2) gm/dl Albumin (3.4-5.0) gm/dl Globulin (2.5-4.0) gm/dl Albumin/Globulin Ratio (0.9-2) Procalcitonin 0.42 (0-0.5) ng/ml Urine Color Urine Appearance (Clear) Urine pH (4.5-7.5) Ur Specific [place] (1.000-1.030) Urine Protein (Negative) Urine Glucose (UA) (Negative) Urine Ketones (Negative) Urine Blood (Negative) Urine Nitrite (Negative) Urine Bilirubin (Negative) Urine Urobilinogen (Negative) Ur Leukocyte Esterase (Negative) Urine WBC (Auto) (0-5) /hpf Urine RBC (Auto) (0-4) /hpf U Hyaline Cast (Auto) (0-5) /lpf U Epithel Cells (Auto) (0-5) /lpf Urine Bacteria (Auto) (Negative) Ur Renal Epithelial Cell (0-5) /lpf Urine Mucus (None Prsent) Nasal Screen MRSA (PCR) (Negative) COVID-19 Eval Order Covid19 at [facility] SARS-CoV-2 (PCR) (Negative) Blood Type B Positive Antibody Screen NEGATIVE 08/04/20 08/04/20 08/04/20 Range/Units 22:46 22:46 22:46 WBC (4.8-10.8) K/uL RBC (4.2-5.4) M/uL Hgb (12.0-16.0) g/dL Hct (37-47) % MCV (80-100) fL MCH (25-34) pg MCHC (32-36) g/dL RDW Std Deviation (36.4-46.3) fL RDW Coeff of [place] (11.5-14.5) % Plt Count (130-400) K/uL MPV (7.4-10.4) fL Immature Gran % (Auto) % Neut % (Auto) % Lymph % (Auto) % [place] % (Auto) % Eos % (Auto) % Baso % (Auto) % Neut # (Auto) (1.4-6.5) K/uL Lymph # (Auto) (1.2-3.4) K/uL [place] # (Auto) (0.11-0.59) K/uL Eos # (Auto) (0-0.5) K/uL Baso # (Auto) (0-0.2) K/uL Immature Gran # (Auto) (0.00-0.02) K/uL Toxic Vacuolation Platelet Estimate (Normal) Peripher Smr Path Cons PT 11.5 (9.0-12.0) Seconds INR 1.1 (0.9-1.1) APTT 27.2 (21.0-31.0) Seconds PTT Ratio 1.0 VBG pH (7.36-7.41) VBG pCO2 (38-50) mmHg VBG pO2 mmHg VBG HCO3 mmol/L VBG O2 Saturation % VBG Base Excess mEq/L Barometric Pressure mm/Hg Sodium 135 L (136-145) mmol/L Potassium 3.7 (3.5-5.1) mmol/L Chloride 105 (98-107) mmol/L Carbon Dioxide 22 (21-32) mmol/L Anion Gap 9.0 (3-11) BUN 15 (7-18) mg/dl Creatinine 0.39 L (0.6-1.2) mg/dl Est Cr Clr Drug Dosing 195.1 ml/min Est GFR ( Amer) > 150.0 ml/min Est GFR (Non-Af Amer) 148.0 ml/min BUN/Creatinine Ratio 37.2 H (10-20) Glucose 89 (70-99) mg/dl Lactate 0.7 (0.4-2.0) mmol/L Calcium 8.8 (8.5-10.1) mg/dl Phosphorus (2.5-4.9) mg/dl Magnesium 2.0 (1.8-2.4) mg/dl Total Bilirubin 0.2 (0.2-1) mg/dl Direct Bilirubin (0-0.2) mg/dl AST 100 H (15-37) U/L ALT 85 H (12-78) U/L Alkaline Phosphatase 77 (45-117) U/L Troponin I < 0.015 (0-0.045) ng/ml Total Protein 7.2 (6.4-8.2) gm/dl Albumin 2.9 L (3.4-5.0) gm/dl Globulin 4.3 H (2.5-4.0) gm/dl Albumin/Globulin Ratio 0.7 L (0.9-2) Procalcitonin (0-0.5) ng/ml Urine Color Urine Appearance (Clear) Urine pH (4.5-7.5) Ur Specific [place] (1.000-1.030) Urine Protein (Negative) Urine Glucose (UA) (Negative) Urine Ketones (Negative) Urine Blood (Negative) Urine Nitrite (Negative) Urine Bilirubin (Negative) Urine Urobilinogen (Negative) Ur Leukocyte Esterase (Negative) Urine WBC (Auto) (0-5) /hpf Urine RBC (Auto) (0-4) /hpf U Hyaline Cast (Auto) (0-5) /lpf U Epithel Cells (Auto) (0-5) /lpf Urine Bacteria (Auto) (Negative) Ur Renal Epithelial Cell (0-5) /lpf Urine Mucus (None Prsent) Nasal Screen MRSA (PCR) (Negative) COVID-19 Eval Order SARS-CoV-2 (PCR) (Negative) Blood Type Antibody Screen 08/04/20 08/04/20 Range/Units 22:46 22:46 WBC 5.36 (4.8-10.8) K/uL RBC 3.55 L (4.2-5.4) M/uL Hgb 12.1 (12.0-16.0) g/dL Hct 34.7 L (37-47) % MCV 97.7 (80-100) fL MCH 34.1 H (25-34) pg MCHC 34.9 (32-36) g/dL RDW Std Deviation 44.5 (36.4-46.3) fL RDW Coeff of [place] 12.4 (11.5-14.5) % Plt Count 53 L (130-400) K/uL MPV 9.3 (7.4-10.4) fL Immature Gran % (Auto) 0.7 % Neut % (Auto) 81.7 % Lymph % (Auto) 9.0 % [place] % (Auto) 8.4 % Eos % (Auto) 0.0 % Baso % (Auto) 0.2 % Neut # (Auto) 4.38 (1.4-6.5) K/uL Lymph # (Auto) 0.48 L (1.2-3.4) K/uL [place] # (Auto) 0.45 (0.11-0.59) K/uL Eos # (Auto) 0.00 (0-0.5) K/uL Baso # (Auto) 0.01 (0-0.2) K/uL Immature Gran # (Auto) 0.04 H (0.00-0.02) K/uL Toxic Vacuolation 1+ Platelet Estimate Decreased L (Normal) Peripher Smr Path Cons PT (9.0-12.0) Seconds INR (0.9-1.1) APTT (21.0-31.0) Seconds PTT Ratio VBG pH 7.44 H (7.36-7.41) VBG pCO2 34 L (38-50) mmHg VBG pO2 72 mmHg VBG HCO3 23 mmol/L VBG O2 Saturation 95.5 % VBG Base Excess -0.7 mEq/L Barometric Pressure 729.6 mm/Hg Sodium (136-145) mmol/L Potassium (3.5-5.1) mmol/L Chloride (98-107) mmol/L Carbon Dioxide (21-32) mmol/L Anion Gap (3-11) BUN (7-18) mg/dl Creatinine (0.6-1.2) mg/dl Est Cr Clr Drug Dosing ml/min Est GFR ( Amer) ml/min Est GFR (Non-Af Amer) ml/min BUN/Creatinine Ratio (10-20) Glucose (70-99) mg/dl Lactate (0.4-2.0) mmol/L Calcium (8.5-10.1) mg/dl Phosphorus (2.5-4.9) mg/dl Magnesium (1.8-2.4) mg/dl Total Bilirubin (0.2-1) mg/dl Direct Bilirubin (0-0.2) mg/dl AST (15-37) U/L ALT (12-78) U/L Alkaline Phosphatase (45-117) U/L Troponin I (0-0.045) ng/ml Total Protein (6.4-8.2) gm/dl Albumin (3.4-5.0) gm/dl Globulin (2.5-4.0) gm/dl Albumin/Globulin Ratio (0.9-2) Procalcitonin (0-0.5) ng/ml Urine Color Urine Appearance (Clear) Urine pH (4.5-7.5) Ur Specific [place] (1.000-1.030) Urine Protein (Negative) Urine Glucose (UA) (Negative) Urine Ketones (Negative) Urine Blood (Negative) Urine Nitrite (Negative) Urine Bilirubin (Negative) Urine Urobilinogen (Negative) Ur Leukocyte Esterase (Negative) Urine WBC (Auto) (0-5) /hpf Urine RBC (Auto) (0-4) /hpf U Hyaline Cast (Auto) (0-5) /lpf U Epithel Cells (Auto) (0-5) /lpf Urine Bacteria (Auto) (Negative) Ur Renal Epithelial Cell (0-5) /lpf Urine Mucus (None Prsent) Nasal Screen MRSA (PCR) (Negative) COVID-19 Eval Order SARS-CoV-2 (PCR) (Negative) Blood Type Antibody Screen Coding Level of Care Code Critical Care 1st 30-74 mins Diagnoses Acute on chronic respiratory failure with hypoxemia J96.21 Abnormal LFTs R94.5 Thrombocytopenia D69.6 Sepsis A41.9
[2020-08-05] MEDS: VALPROIC ACID 250 MG/5 ML NG SCH ×3 (08:51→21:12)
[2020-08-05] MEDS: BACLOFEN 20 MG TAB PEG SCH ×3 (08:52→21:10)
[2020-08-05] MEDS: ZONISAMIDE 100 MG PO SCH ×3 (08:53→21:12)
[2020-08-05] MEDS: PIPERACILLIN/TAZOBACTAM 4.5 GM in DEXTROSE 5% 100 ML IV SCH ×2 (08:54→15:49)
[2020-08-05] MEDS ORDERED: VALPROIC ACID SOLN 250 MG/5 ML UDC PO SCH (09:00)
[2020-08-05] MEDS ORDERED: [UNRECOGNIZED DRUG - OTHER] feeding tube SCH (09:00)
[2020-08-05 09:31] LABS: Fibrinogen 343 mg/dl (184-400)
--- NOTE | 2020-08-05 10:02 | Electrocardiogram Report ---
Test Reason : Blood Pressure : / mmHG Vent. Rate : 096 BPM Atrial Rate : 096 BPM P-R Int : 128 ms QRS Dur : 076 ms QT Int : 334 ms P-R-T Axes : 057 054 043 degrees QTc Int : 421 ms Normal sinus rhythm Nonspecific T wave abnormality Abnormal ECG When compared with ECG of 16-SEP-2018 10:03, No significant change was found Confirmed by Vince Liang ([id number]) on 08/05/2020 10:01:58 AM Referred By: REFERRED SELF Confirmed By:Vince Liang
[2020-08-05] MEDS: ACETAMINOPHEN SUSP 325 MG/10.15 ML UDC PO PRN ×2 (10:27→21:11)
--- NOTE | 2020-08-05 15:51 | Hospitalist Progress Note ---
Date of Service August 05, 2020 Assessment & Plan (1) Admitted to intensive care unit: (2) Acute on chronic respiratory failure with hypoxemia: Ongoing management for pneumonia (3) Sepsis: Ongoing management for pneumonia/sepsis picture. Should she fail to improve, consider evaluation for something tickborne, simply because of the pattern of lab abnormalities, but with her overall baseline situation, tick exposure would be very odd. (4) Pneumonia: Continue Zosyn and supportive care (5) Quadriplegic cerebral palsy: Continue supportive treatment (6) Seizure disorder: Continue valproic acid (7) Thrombocytopenia: Fibrinogen and FDP were reassuring as it relates to DIC. Follow closely. See above otherwise (8) Abnormal LFTs: See above, trend Admission and Anticipated Discharge Date Admission Date: August 05, 2020 Subjective No HPI or review of systems obtainable. Physical Exam Physical Exam: Lying in bed appearing mildly diaphoretic but no overt respiratory distress. HEENT normocephalic atraumatic mucous membranes somewhat dry. Lungs coarse throughout, cardiac distant. Results & Data Results & Data ([facility]) Vital Signs (Past 12 Hours) Vital Signs Temp Pulse Pulse Resp BP Pulse Ox 08/05/20 15:30 99.7 F H 109 H 92 08/05/20 15:14 99.5 F 113 H 112/91 94 08/05/20 15:00 99.3 F 97 H 94 08/05/20 14:30 99.1 F 95 H 97 08/05/20 14:13 99.1 F 99 H 94/55 L 94 08/05/20 14:00 99.1 F 98 H 93 08/05/20 13:30 99.3 F 93 H 97 08/05/20 13:13 99.5 F 97 H 100/53 L 95 08/05/20 13:00 99.7 F H 104 H 95 08/05/20 12:30 100.2 F H 100 H 08/05/20 12:13 100.2 F H 99 H 111/72 08/05/20 12:00 100.4 F H 100 H 88 L 08/05/20 11:30 100.8 F H 112 H 91 08/05/20 11:13 100.8 F H 107 H 118/89 94 08/05/20 11:00 100.8 F H 108 H 96 08/05/20 10:30 100.8 F H 116 H 96 08/05/20 10:13 100.6 F H 109 H 110/64 99 08/05/20 10:00 100.4 F H 104 H 98 08/05/20 09:30 100.6 F H 110 H 97 08/05/20 09:13 100.4 F H 102 H 103/71 97 08/05/20 09:00 100.2 F H 117 H 96 08/05/20 08:30 99.7 F H 112 H 97 08/05/20 08:13 99.3 F 119 H 139/66 99 08/05/20 08:00 98.8 F 99 H 97 08/05/20 07:40 76 28 H 99 08/05/20 07:30 98.1 F 71 97 08/05/20 07:13 97.9 F 85 99/68 L 99 08/05/20 07:00 97.9 F 84 99 08/05/20 06:30 97.5 F L 77 98 08/05/20 06:14 97.7 F 84 100/64 98 08/05/20 06:00 97.7 F 79 96 08/05/20 05:30 97.9 F 79 96 08/05/20 05:13 98.2 F 91 H 94/56 L 96 08/05/20 05:00 98.2 F 99 H 89 L 08/05/20 04:35 105 H 22 98 08/05/20 04:30 98.1 F 106 H 99 08/05/20 04:14 97.7 F 108 H 114/82 96 08/05/20 04:00 97.5 F L 108 H 98 PG Care Time/CCT Total # of Minutes Spent Total Time Spent with Patient: Total time spent is greater than 50% in coordination of care (as documented) at patient's floor/unit and/or counseling patient: Coding Level of Care Code 45112 Subseq Hosp Care Lvl 1 Diagnoses Admitted to intensive care unit Z78.9 Acute on chronic respiratory failure with hypoxemia J96.21 Sepsis A41.9 Pneumonia J18.9 Laterality: left Lung location: lower lobe of lung Pneumonia type: due to unspecified organism 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
[2020-08-06] MEDS: PIPERACILLIN/TAZOBACTAM 4.5 GM in DEXTROSE 5% 100 ML IV SCH ×4 (00:56→23:04)
[2020-08-06 05:45] LABS: INR 1.2 (0.9-1.1); Partial Thromboplastin Ratio 1.2; Partial Thromboplastin Time 30.5 Seconds (21.0-31.0); Prothrombin Time 11.9 Seconds (9.0-12.0)
[2020-08-06 06:21] LABS: Hemoglobin 9.9 g/dL (12.0-16.0); Lymphocytes # (auto) 0.34 K/uL (1.2-3.4); Lymphocytes % (auto) 26.8 %; Mean Corpuscular Hemoglobin 33.3 pg (25-34); Mean Corpuscular Hgb Conc 34.1 g/dL (32-36); Mean Corpuscular Volume 97.6 fL (80-100); Mean Platelet Volume 9.6 fL (7.4-10.4); Monocytes # (auto) 0.21 K/uL (0.11-0.59); Monocytes % (auto) 16.5 %; Neutrophils % (auto) 56.7 %; Platelet Estimate Decreased (Normal); Polychromasia 1+; RDW Coefficient of Variation 12.6 % (11.5-14.5); RDW Standard Deviation 45.1 fL (36.4-46.3); Red Blood Count 2.97 M/uL (4.2-5.4); Toxic Granulation 1+; White Blood Count 1.27 K/uL (4.8-10.8)
[2020-08-06 06:23] LABS: Neutrophils # (auto) 0.72 K/uL (1.4-6.5); Platelet Count 28 K/uL (130-400)
[2020-08-06] MEDS: ACETYLCYSTEINE 10% INHAL SOLN 4 ML **DISPENSED BY RESP. INH SCH ×2 (07:19→18:58)
[2020-08-06] MEDS: BUDESONIDE 0.5 MG/2 ML VIAL (PULMICORT) INH SCH ×2 (07:20→19:29)
[2020-08-06] MEDS: ALBUTEROL 0.083% NEBU SOLN 3 ML VIAL INH PRN ×2 (07:20→18:58)
[2020-08-06] MEDS ORDERED: VANCOMYCIN TROUGH ONE (07:30)
[2020-08-06 07:32] LABS: Fibrinogen 337 mg/dl (184-400)
[2020-08-06 08:13] LABS: Alanine Aminotransferase 177 U/L (12-78); Albumin Level 2.6 gm/dl (3.4-5.0); Alkaline Phosphatase 117 U/L (45-117); Aspartate Aminotransferase 217 U/L (15-37); BUN Creatinine Ratio 10.9 (10-20); Bilirubin,Total 0.3 mg/dl (0.2-1); Blood Urea Nitrogen 4 mg/dl (7-18); Calcium 8.2 mg/dl (8.5-10.1); Carbon Dioxide 22 mmol/L (21-32); Chloride 108 mmol/L (98-107); Creatinine Clr Calc Pharmacy 222.3 ml/min; Est GFR (African American) > 150.0 ml/min; Est GFR (Non-African American) > 150.0 ml/min; Glucose 71 mg/dl (70-99); Magnesium 1.9 mg/dl (1.8-2.4); Phosphorus 2.9 mg/dl (2.5-4.9); Potassium 3.6 mmol/L (3.5-5.1); Sodium 139 mmol/L (136-145); Total Protein 6.4 gm/dl (6.4-8.2)
[2020-08-06] MEDS ORDERED: CONSULT PHARMACY PRN (08:16)
[2020-08-06] MEDS ORDERED: TOBRAMYCIN CONSULT ACTIVE PRN (08:16)
[2020-08-06 08:24] LABS: Bilirubin Direct 0.2 mg/dl (0-0.2)
[2020-08-06] MEDS: TUBE FEEDING WATER FLUSH NG SCH ×4 (08:26→19:55)
[2020-08-06] MEDS: NSS + 20MEQ KCL 20 MEQ/1,000 ML BAG IV SCH ×2 (08:26→17:49)
[2020-08-06] MEDS: VALPROIC ACID 250 MG/5 ML NG SCH ×2 (08:26→15:10)
[2020-08-06] MEDS: ZONISAMIDE 100 MG PO SCH ×2 (08:27→20:42)
[2020-08-06] MEDS: BACLOFEN 20 MG TAB PEG SCH ×3 (08:27→19:59)
[2020-08-06] MEDS ORDERED: TOBRAMYCIN SULFATE IV SCH ×2 (08:30→10:30)
[2020-08-06] MEDS ORDERED: DEXTROSE 5% IV SCH ×2 (08:30→10:30)
[2020-08-06] MEDS: FAMOTIDINE 20 MG in SYRINGE 3 ML IV SCH ×2 (08:44→20:00)
[2020-08-06 10:51] LABS: Reticulocyte % 2.5 % (0.5-2.0); Reticulocytes # 0.08 10^6/uL (0.02-0.10)
--- NOTE | 2020-08-06 11:07 | Gastrointestinal Consultation ---
Date of Consultation August 06, 2020 Assessment & Plan (1) Abnormal LFTs: Potential etiologies include sepsis/underlying infection vs biliary source vs medication induced vs other -Obtain RUQ US for further evaluation -Continue to monitor LFTs -Treatment of sepsis per primary team Further recommendations pending results of US. Thank you for allowing us to participate in the care of this patient. If you should have any further questions or concerns, do not hesitate to contact us at extension [phone] or [phone]. Supervising Physician Co-Signing Physician Notes Agree with YUMIKO Rowe as above Abd: Soft, ND RUQ US with findings of questionable thickening of GB. HIDA Scan tomorrow Continue current therapy and supportive care per primary team. History of Present Illness Reason for Consultation: Possible cholangitis Requesting Physician: Dr. Stover Attending Physician: Bella Vera MD History of Present Illness Patient is a 24 yo female with a PMH of cerebral palsy and chronic respiratory failure with trach dependence who is currently hospitalized with sepsis. Patient has a history of frequent pneumonia and plugging requiring bronchoscopy routinely in the past. Her WBC count is decreased at 1.27. Patient has thrombocytopenia with a platelet count of 28. Temp is 38.0 C, she is tachycardic with a HR of 96 and tachypneic with a RR of 34. She is currently on IV ant ibiotic therapy with IV Zosyn. Blood cultures are unremarkable thus far. From a GI standpoint, her AST is 217 and an ALT of 177. Total bilirubin is normal at 0.3 and Direct bilirubin is 0.2. Alk phos is within normal limits. She had an abdominal CT that showed an unremarkable gallbladder & liver. The CT did indicate thickening of the bladder with gas in the bladder as well. The CT also indicated a possible pneumonia and bilateral renal pelvic dilatation. No known history of gallbladder or liver issues. Allergies Allergy/AdvReac Type Severity Reaction Status Date / Time No Known Allergies Allergy Verified 08/04/20 22:11 Home Medications Medication Instructions Recorded Confirmed Type Boost 1.5 ea PO QID@07,1130,,07/28/18 08/04/20 History water 120 ea PO QID@07,1130,,07/28/18 08/04/20 History acetaminophen 160 mg/5 mL oral 640 mg PO Q6H PRN #473 ml 12/21/18 08/04/20 Rx liquid ibuprofen 100 mg/5 mL oral See Rx Instructions PO Q6H PRN 12/21/18 08/04/20 Rx suspension #473 ml diaper,brief,adult,disposable #180 ea 05/12/19 06/26/20 Rx disposable gloves #100 ea 05/12/19 06/26/20 Rx incontinence pad, liner, disp #20 ea 05/12/19 06/26/20 Rx incontinence pad, liner, disp #72 ea 05/12/19 06/26/20 Rx trazodone 50 mg tablet 50 mg FEEDING TUBE HS #90 tab 02/20/20 08/04/20 Rx Miscellaneous Medical Supply #1 ea 02/22/20 06/26/20 Rx (Hospital Bed) nitrofurantoin macrocrystal 50 mg 50 mg FEEDING TUBE DAILY #90 cap 03/14/20 08/04/20 Rx capsule cetirizine 10 mg tablet 10 mg PO DAILY #90 tab 04/05/20 08/04/20 Rx acetylcysteine 100 mg/mL (10 %) 3 ml INHALATION BID #180 ml 06/12/20 08/04/20 Rx solution albuterol sulfate 2.5 mg INHALATION Q4H PRN #540 ml 06/12/20 08/04/20 Rx budesonide 0.5 mg/2 mL suspension 0.5 mg INHALATION BID #120 ml 06/12/20 08/04/20 Rx for nebulization baclofen 20 mg tablet 20 mg FEEDING TUBE TID 30 Days #90 06/26/20 08/04/20 Rx tab fluoxetine 20 mg tablet 20 mg FEEDING TUBE DAILY 30 Days 06/26/20 08/04/20 Rx #30 tab valproic acid (as sodium salt) 250 550 mg FEEDING TUBE TID 30 Days 06/26/20 08/04/20 Rx mg/5 mL oral solution #990 ml zonisamide 100 mg capsule 200 mg FEEDING TUBE .COMPLEX 30 06/26/20 08/04/20 Rx Days #90 cap clonazepam 0.5 mg FEEDING TUBE DIRECTED PRN 08/04/20 08/04/20 History nut.tx.,elemental,fgj-oqhj-hbc 1 ea FEEDING TUBE DAILY 08/04/20 08/04/20 History [Xtracal Plus] polyethylene glycol 3350 [Miralax] 8.5 g FEEDING TUBE DAILY PRN 08/04/20 08/04/20 History Patient History Medical History Allergic rhinitis Chronic respiratory failure with hypoxia and hypercapnia Cortical blindness Depression with anxiety Insomnia 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 Seizure disorder Surgical History History of tracheostomy S/P percutaneous endoscopic gastrostomy (PEG) tube placement Family History Brother Asthma Other Coronary heart disease Family history non-contributory Hypertension Social History Smoking Status: Never smoker Second Hand Exposure: No; Hx Alcohol Use: No Hx Substance Use: No Preferred Language: Haitian Communication Ability: Unable Communication Ability Comment: HX of Cerbral Palsy Sail Cutter Required: No Beliefs That Will Affect Care: None Current Living Situation: Parent Current Living Situation Comment: parent Feels Safe at Home: Yes Safety Concerns: Feels Safe At This Time Assistive Devices: Oxygen - Continuous Assistive Devices Comment: Home Ventilator Review of Systems Review of Systems: Unobtainable Physical Exam Constitutional: + ill appearing Neck: trach in place Respiratory: + tachypneic Cardiovascular: Rate/Rhythm: + tachycardic Gastrointestinal (Abdomen): normal bowel sounds, soft, nontender, no hepatosplenomegaly Psychiatric: Orientation: alert Results & Data ([facility]) Vital Signs (Past 12 Hours) Vital Signs Temp Pulse Pulse Resp BP Pulse Ox 08/06/20 09:13 38.0 C H 96 H 34 H 108/66 97 08/06/20 08:13 38.2 C H 103 H 19 112/75 91 08/06/20 07:20 113 H 30 H 97 08/06/20 07:13 38.2 C H 102 H 108/69 98 08/06/20 06:30 38.3 C H 104 H 97 08/06/20 06:15 38.2 C H 108 H 95 08/06/20 06:13 38.2 C H 104 H 117/68 96 08/06/20 06:00 38.2 C H 106 H 96 08/06/20 05:45 38.1 C H 104 H 96 08/06/20 05:30 38.0 C H 106 H 98 08/06/20 05:15 38.0 C H 105 H 96 08/06/20 05:13 38.0 C H 105 H 108/70 97 08/06/20 05:00 37.9 C H 104 H 96 08/06/20 04:13 37.6 C H 102 H 108/77 100 08/06/20 04:00 37.5 C 103 H 96 08/06/20 03:13 37.4 C 100 H 108/71 95 08/06/20 03:00 37.4 C 106 H 93 08/06/20 02:45 37.5 C 92 H 97 08/06/20 02:30 37.5 C 96 H 96 08/06/20 02:15 37.6 C H 93 H 94 08/06/20 02:13 37.6 C H 98 H 97/59 L 94 08/06/20 02:00 37.7 C H 101 H 93 08/06/20 01:45 37.7 C H 129 H 08/06/20 01:13 37.8 C H 105 H 86/64 L 96 08/06/20 01:00 37.9 C H 106 H 94 08/06/20 00:14 38.3 C H 108 H 104/47 L 92 08/06/20 00:00 38.5 C H 116 H 30 H 91 08/05/20 23:13 38.8 C H 102 H 101/54 L 95 08/05/20 23:00 38.9 C H 104 H 96 PG Care Time/CCT Total # of Minutes Spent Total Time Spent with Patient: Total time spent is greater than 50% in coordination of care (as documented) at patient's floor/unit and/or counseling patient: Coding Level of Care Code 26445 Inpt Consult Level 4 Diagnoses Abnormal LFTs R94.5
--- NOTE | 2020-08-06 11:10 | Critical Care Progress Note ---
Date of Service August 06, 2020 Assessment & Plan (1) Acute on chronic respiratory failure with hypoxemia: Reason Critically Ill: 24-year-old female with chronic tracheostomy dependence who was admitted for sepsis likely pulmonary source PLAN: Neuro: Cerebral palsy -Continue home medication. We will check a valproic acid level given LFT derangements. Resp: Acute on chronic respiratory failure Tracheostomy dependent -Continue night ventilator -Mucoid impaction of the left lower lobe bronchus versus broncho- pneumonia. -Chest CPT and hypertonic nebs ordered. Will need to consider bronchoscopy. We will hold off on microscopy at this time given th rombocytopenia. CV: No significant hemodynamic issues at present. Fluids/Renal: Continue tube feeds. ID: Sepsis likely secondary to bronchopneumonia. 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 Tobramycin added to Zosyn. Will obtain a sputum culture. Contact precautions. GI/Nutrition: Transaminitis: Mild. GI consulted. Can be related to valproic acid. Level ordered. Heme: Pancytopenia noted. Iron studies, LDH, haptoglobin and peripheral smear ordered. Unclear etiology. Possibly sepsis mediated and anemia of chronic disease. Will consider heme/onc consult if worsening. ?HLH. Ferritin and triglyceride level has been ordered. Endocrine: ICU hyperglycemia protocol Vascular access: Peripheral IVs Code Status: DNR/DNI in event of cardiac arrest Disposition: ICU (2) Abnormal LFTs: (3) Thrombocytopenia: (4) Sepsis: Admission and Anticipated Discharge Date Admission Date: August 05, 2020 Subjective Patient seen and examined this morning. Unable to obtain patient review of systems given her underlying cerebral palsy and tracheostomy. Patient remains febrile overnight. Review of Systems Review of Systems: Unobtainable due to cognitive status Physical Exam Physical Exam: General: Alert. Skin: Warm, dry, Head: Atraumatic Ears, nose, mouth and throat: Tracheostomy in place and patent Cardiovascular: Normal peripheral perfusion Respiratory: Mild tachypnea Gastrointestinal: Non distended Musculoskeletal: Bilateral contractures x4 Results & Data Results & Data ([facility]) Vital Signs (Past 12 Hours) Vital Signs Temp Pulse Pulse Resp BP Pulse Ox 08/06/20 09:13 100.4 F H 96 H 34 H 108/66 97 08/06/20 08:13 100.8 F H 103 H 19 112/75 91 08/06/20 07:20 113 H 30 H 97 06/14/21 07:13 100.8 F H 102 H 108/69 98 08/06/20 06:30 100.9 F H 104 H 97 08/06/20 06:15 100.8 F H 108 H 95 08/06/20 06:13 100.8 F H 104 H 117/68 96 08/06/20 06:00 100.8 F H 106 H 96 08/06/20 05:45 100.6 F H 104 H 96 08/06/20 05:30 100.4 F H 106 H 98 08/06/20 05:15 100.4 F H 105 H 96 08/06/20 05:13 100.4 F H 105 H 108/70 97 08/06/20 05:00 100.2 F H 104 H 96 08/06/20 04:13 99.7 F H 102 H 108/77 100 08/06/20 04:00 99.5 F 103 H 96 08/06/20 03:13 99.3 F 100 H 108/71 95 08/06/20 03:00 99.3 F 106 H 93 08/06/20 02:45 99.5 F 92 H 97 08/06/20 02:30 99.5 F 96 H 96 08/06/20 02:15 99.7 F H 93 H 94 08/06/20 02:13 99.7 F H 98 H 97/59 L 94 08/06/20 02:00 99.9 F H 101 H 93 08/06/20 01:45 99.9 F H 129 H 08/06/20 01:13 100.0 F H 105 H 86/64 L 96 08/06/20 01:00 100.2 F H 106 H 94 08/06/20 00:14 100.9 F H 108 H 104/47 L 92 08/06/20 00:00 101.3 F H 116 H 30 H 91 08/05/20 23:13 101.8 F H 102 H 101/54 L 95 vital signs, labs and imaging reviewed Coding Level of Care Code 96422 Subseq Hosp Care Lvl 3 Diagnoses Acute on chronic respiratory failure with hypoxemia J96.21 Abnormal LFTs R94.5 Thrombocytopenia D69.6 Sepsis A41.9
[2020-08-06 11:11] LABS: Creatinine Clr Calc Pharmacy 261.9 ml/min; Est GFR (African American) > 150.0 ml/min; Est GFR (Non-African American) > 150.0 ml/min
[2020-08-06 11:20] LABS: Ferritin 276.9 ng/ml (8-388); Iron 16 mcg/dl (35-150); Total Iron Binding Capacity 319 mcg/dl (250-450); Transferrin 236 mg/dl (200-360); Triglycerides 89 mg/dl (0-150)
--- NOTE | 2020-08-06 11:51 | Pharmacy Report ---
Pharmacy Abx Dose Short Note - Date of Service August 06, 2020 - Assessment & Plan Assessment 24 year old F receiving Zosyn and Tobramycin for treatment of possible pulmonary source. History of multi-drug resistant pseudomonas. Day # 2 of antimicrobial therapy. Plan Tobramycin 380 mg (7 mg/kg) IV q24 (continuation at this interval pending random level analysis) * Random level ordered for: 08/06/20 @1830 Zosyn 4.5g IV q8h Pharmacy will continue to follow and will adjust dose/frequency as necessary. Thank you.
--- NOTE | 2020-08-06 12:14 | Ultrasound Report ---
ULTRASOUND RIGHT UPPER QUADRANT ABDOMEN CLINICAL HISTORY: Abnormal liver function studies. COMPARISON STUDY: Abdominal CT dated 08/05/2020. TECHNIQUE: Real-time, grayscale, and color flow sonography of the right upper quadrant of the abdomen was performed. Images are reviewed in the transverse and longitudinal planes. FINDINGS: Liver: The liver is top normal in size. Echotexture is normal. There is no intrahepatic biliary ducta l dilatation. The main portal vein is patent. Gallbladder: The gallbladder is contracted, and the wall appears significantly thickened and heteroge neous. No shadowing gallstones are identified. No pericholecystic fluid is seen. A sonographic Watson 's sign could not be evaluated. The common bile duct measures up to 0.4 cm in diameter. Pancreas: Visualized portions of the pancreatic head and body are normal in appearance. Right kidney: Survey images of the right kidney demonstrate normal size and echotexture. There is no hydronephrosis. Ascites: None. IMPRESSION: 1. The liver is top normal in size. Echotexture is normal. 2. The gallbladder is contracted and appears thick walled and heterogeneous. No shadowing gallstones are identified and this may be related to hepatocellular disease. This finding is of indeterminate si gnificance, and if there is clinical concern for acute cholecystitis a nuclear hepatobiliary scan darrel uld be obtained. 3. There is no intra or extrahepatic biliary ductal dilatation. ACT 112: Negative or not required by law. Electronically signed by: Wily Nowak M.D. 08/06/2020 12:13 PM
[2020-08-06 17:16] LABS: Hematocrit (blood only) 33.5 % (37-47); Hemoglobin 11.6 g/dL (12.0-16.0); Mean Corpuscular Hemoglobin 33.5 pg (25-34); Mean Corpuscular Hgb Conc 34.6 g/dL (32-36); Mean Corpuscular Volume 96.8 fL (80-100); RDW Coefficient of Variation 12.4 % (11.5-14.5); Red Blood Count 3.46 M/uL (4.2-5.4); White Blood Count 1.35 K/uL (4.8-10.8)
[2020-08-06 17:51] LABS: Mean Platelet Volume 9.3 fL (7.4-10.4); Platelet Count 37 K/uL (130-400)
[2020-08-06 17:54] LABS: Basophils # (auto) 0.01 K/uL (0-0.2); Basophils % (auto) 0.7 %; Immature Granulocytes # (auto) 0.01 K/uL (0.00-0.02); Immature Granulocytes % (auto) 0.7 %; Lymphocytes # (auto) 0.29 K/uL (1.2-3.4); Lymphocytes % (auto) 21.5 %; Monocytes # (auto) 0.26 K/uL (0.11-0.59); Monocytes % (auto) 19.3 %; Neutrophils # (auto) 0.78 K/uL (1.4-6.5); Neutrophils % (auto) 57.8 %; Platelet Estimate Decreased (Normal)
[2020-08-06] MEDS ORDERED: LACTATED RINGER'S 1,000 ML IV SCH (18:00)
[2020-08-06] MEDS ORDERED: Nursing to Pharmacy Communication SCH (18:15)
[2020-08-06] MEDS: SODIUM CHLOR 7% 4 ML NEB NEB SCH (19:13)
--- NOTE | 2020-08-06 21:52 | Hospitalist Progress Note ---
Date of Service August 06, 2020 Assessment & Plan (1) Sepsis: Presented with fevers, acute on chronic respiratory failure with hypoxemia, tachycardia, tachypnea, thrombocytopenia and transaminitis. 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 Check hepatitis panel, CMV, EBV Follow blood cultures Urine culture is pending but UA seems contaminated Procalcitonin is negative Follow CBC, CMP, procalcitonin in the morning MRSA is negative-vancomycin discontinued Continue supplemental O2 and wean off as tolerated No need for vasopressors at this point Continue maintenance IV fluids (2) Acute on chronic respiratory failure with hypoxemia: Ongoing management for pneumonia as above Continue acetylcysteine nebulizers twice daily Continue budesonide inhaler twice daily, continue hypertonic saline nebulizers Continue tobramycin inhaled Wean back to baseline oxygen levels as needed (3) Pneumonia: As above (4) Quadriplegic cerebral palsy: Continue supportive treatment Continue clonazepam as needed, baclofen (5) Seizure disorder: Continue valproic acid although valproic acid level here was elevated and with elevated LFTs, valproic acid was placed on hold Continue zonisamide (6) Thrombocytopenia: Platelets were severely low at 28,000 and now improving up to 37,000 in the afternoon Peripheral smear without evidence of malignancy, no cytoplasmic inclusion bodies that would be consistent with anaplasmosis Fibrinogen and FDP were reassuring as it relates to DIC. Likely related to sepsis Spleen is mildly enlarged Hold all antiplatelets and anticoagulation Follow CBC in the morning Check CMV, EBV Consider anaplasmosis testing (7) Abnormal LFTs: Worsening today in the 200s for AST and ALT, bilirubin is normal CT abdomen/pelvis with normal liver and mildly enlarged spleen Right upper quadrant ultrasound performed does show normal echotexture of the liver, gallbladder is contracted and appears thick-walled and heterogenous but no shadowing gallstones are identified GI consultation appreciated Plan for HIDA scan tomorrow -Also will check CMV, EBV, acute hepatitis panel -Consider anaplasmosis testing Follow LFTs in the morning Holding valproic acid as this level was elevated and could be contributing (8) DVT prophylaxis: Holding on anticoagulation due to thrombocytopenia SCDs Disposition-continued stay in the ICU FEN-continue tube feeds, maintenance IV fluids, IV Pepcid for GI prophylaxis Admission and Anticipated Discharge Date Admission Date: August 05, 2020 Subjective Patient is awake but is nonverbal and noncommunicative. She continues to spike fevers Nursing reports she had a bowel movement this morning. She has no areas of skin breakdown or rashes. Review of Systems Review of Systems: Unobtainable due to cognitive status Physical Exam Constitutional: + thin; no acute distress Eyes: + anicteric sclerae ENMT: external ear and nose normal, oropharynx normal Neck: trachea midline, no thyromegaly Respiratory: + tachypneic Auscultation: + rhonchi (on left); no crackles and no wheezes Cardiovascular: RRR, no murmur, no edema Chest (Breasts): Chest: normal inspection of chest Gastrointestinal (Abdomen): normal bowel sounds, soft, nontender, no hepatosplenomegaly (With PEG tube in place) Musculoskeletal: Extremities: + extremities abnormal to inspection (Flexion contractures bilaterally), no cyanosis and no clubbing Skin: no rashes, warm and dry Neurologic: awake Psychiatric: Orientation: alert Lymphatic: no lymphedema Results & Data Results & Data ([facility]) Vital Signs (Past 12 Hours) Vital Signs Temp Pulse Pulse Resp BP Pulse Ox 08/06/20 21:14 38.1 C H 99 H 34 H 100/62 95 08/06/20 20:13 38.2 C H 103 H 31 H 106/71 94 08/06/20 19:32 99 H 20 97 08/06/20 19:14 94 H 24 99 08/06/20 19:13 38.3 C H 98 H 41 H 109/69 98 08/06/20 18:58 106 H 20 96 08/06/20 18:13 38.2 C H 103 H 39 H 111/73 97 08/06/20 17:13 37.9 C H 112 H 29 H 110/71 98 08/06/20 16:13 37.6 C H 102 H 33 H 116/65 92 06/14/21 15:13 37.6 C H 104 H 30 H 123/79 100 08/06/20 14:13 37.9 C H 101 H 39 H 103/72 95 08/06/20 12:14 37.5 C 100 H 31 H 116/77 96 08/06/20 11:27 37.7 C H 104 H 24 123/73 98 08/06/20 10:13 37.9 C H 100 H 18 113/74 Laboratory Results 08/06/20 08/06/20 08/06/20 Range/Units 18:33 18:21 17:06 WBC (4.8-10.8) K/uL RBC (4.2-5.4) M/uL Hgb (12.0-16.0) g/dL Hct (37-47) % MCV (80-100) fL MCH (25-34) pg MCHC (32-36) g/dL RDW Std Deviation (36.4-46.3) fL RDW Coeff of [place]quito (11.5-14.5) % Plt Count (130-400) K/uL MPV (7.4-10.4) fL Immature Gran % (Auto) % Neut % (Auto) % Lymph % (Auto) % [place] % (Auto) % Eos % (Auto) % Baso % (Auto) % Reticulocyte % (Auto) (0.5-2.0) % Neut # (Auto) (1.4-6.5) K/uL Lymph # (Auto) (1.2-3.4) K/uL [place] # (Auto) (0.11-0.59) K/uL Eos # (Auto) (0-0.5) K/uL Baso # (Auto) (0-0.2) K/uL Reticulocyte # (0.02-0.10) 10^6/uL Immature Gran # (Auto) (0.00-0.02) K/uL Toxic Granulation Platelet Estimate (Normal) Polychromasia Peripher Smr Path Cons Haptoglobin PT (9.0-12.0) Seconds INR (0.9-1.1) APTT (21.0-31.0) Seconds PTT Ratio Fibrinogen (184-400) mg/dl Fibrin Degrad Products (<10) mcg/ml Sodium Potassium Chloride Carbon Dioxide Anion Gap BUN Creatinine Est Cr Clr Drug Dosing Est GFR ( Amer) Est GFR (Non-Af Amer) BUN/Creatinine Ratio Glucose POC Glucose 72 (70-99) mg/dl Calcium Phosphorus Magnesium Iron (35-150) mcg/dl TIBC (250-450) mcg/dl Transferrin (200-360) mg/dl Ferritin (8-388) ng/ml Total Bilirubin Direct Bilirubin AST ALT Alkaline Phosphatase Ammonia (11-32) umol/L Lactate Dehydrogenase 312 H (84-246) U/L Total Protein Albumin Triglycerides (0-150) mg/dl Random Tobramycin 1.50 mcg/ml Valproic Acid (50-100) mcg/ml 08/06/20 08/06/20 08/06/20 Range/Units 17:06 17:06 13:17 WBC 1.35 L (4.8-10.8) K/uL RBC 3.46 L (4.2-5.4) M/uL Hgb 11.6 L (12.0-16.0) g/dL Hct 33.5 L (37-47) % MCV 96.8 (80-100) fL MCH 33.5 (25-34) pg MCHC 34.6 (32-36) g/dL RDW Std Deviation 44.0 (36.4-46.3) fL RDW Coeff of [place]quito 12.4 (11.5-14.5) % Plt Count 37 L (130-400) K/uL MPV 9.3 (7.4-10.4) fL Immature Gran % (Auto) 0.7 % Neut % (Auto) 57.8 % Lymph % (Auto) 21.5 % [place] % (Auto) 19.3 % Eos % (Auto) 0.0 % Baso % (Auto) 0.7 % Reticulocyte % (Auto) (0.5-2.0) % Neut # (Auto) 0.78 L* (1.4-6.5) K/uL Lymph # (Auto) 0.29 L (1.2-3.4) K/uL [place] # (Auto) 0.26 (0.11-0.59) K/uL Eos # (Auto) 0.00 (0-0.5) K/uL Baso # (Auto) 0.01 (0-0.2) K/uL Reticulocyte # (0.02-0.10) 10^6/uL Immature Gran # (Auto) 0.01 (0.00-0.02) K/uL Toxic Granulation Platelet Estimate Decreased L (Normal) Polychromasia Peripher Smr Path Cons Haptoglobin PT (9.0-12.0) Seconds INR (0.9-1.1) APTT (21.0-31.0) Seconds PTT Ratio Fibrinogen (184-400) mg/dl Fibrin Degrad Products (<10) mcg/ml Sodium Potassium Chloride Carbon Dioxide Anion Gap BUN Creatinine Est Cr Clr Drug Dosing Est GFR ( Amer) Est GFR (Non-Af Amer) BUN/Creatinine Ratio Glucose POC Glucose (70-99) mg/dl Calcium Phosphorus Magnesium Iron (35-150) mcg/dl TIBC (250-450) mcg/dl Transferrin (200-360) mg/dl Ferritin (8-388) ng/ml Total Bilirubin Direct Bilirubin AST ALT Alkaline Phosphatase Ammonia 46.0 H (11-32) umol/L Lactate Dehydrogenase (84-246) U/L Total Protein Albumin Triglycerides (0-150) mg/dl Random Tobramycin mcg/ml Valproic Acid 116 H (50-100) mcg/ml 08/06/20 08/06/20 08/06/20 Range/Units 10:24 10:24 10:24 WBC (4.8-10.8) K/uL RBC (4.2-5.4) M/uL Hgb (12.0-16.0) g/dL Hct (37-47) % MCV (80-100) fL MCH (25-34) pg MCHC (32-36) g/dL RDW Std Deviation (36.4-46.3) fL RDW Coeff of [place] (11.5-14.5) % Plt Count (130-400) K/uL MPV (7.4-10.4) fL Immature Gran % (Auto) % Neut % (Auto) % Lymph % (Auto) % [place] % (Auto) % Eos % (Auto) % Baso % (Auto) % Reticulocyte % (Auto) 2.5 H (0.5-2.0) % Neut # (Auto) (1.4-6.5) K/uL Lymph # (Auto) (1.2-3.4) K/uL [place] # (Auto) (0.11-0.59) K/uL Eos # (Auto) (0-0.5) K/uL Baso # (Auto) (0-0.2) K/uL Reticulocyte # 0.08 (0.02-0.10) 10^6/uL Immature Gran # (Auto) (0.00-0.02) K/uL Toxic Granulation Platelet Estimate (Normal) Polychromasia Peripher Smr Path Cons Haptoglobin Pending PT (9.0-12.0) Seconds INR (0.9-1.1) APTT (21.0-31.0) Seconds PTT Ratio Fibrinogen (184-400) mg/dl Fibrin Degrad Products (<10) mcg/ml Sodium Potassium Chloride Carbon Dioxide Anion Gap BUN Creatinine 0.28 L Est Cr Clr Drug Dosing 261.9 Est GFR ( Amer) > 150.0 Est GFR (Non-Af Amer) > 150.0 BUN/Creatinine Ratio Glucose POC Glucose (70-99) mg/dl Calcium Phosphorus Magnesium Iron 16 L (35-150) mcg/dl TIBC 319 (250-450) mcg/dl Transferrin 236 (200-360) mg/dl Ferritin 276.9 (8-388) ng/ml Total Bilirubin Direct Bilirubin AST ALT Alkaline Phosphatase Ammonia (11-32) umol/L Lactate Dehydrogenase (84-246) U/L Total Protein Albumin Triglycerides 89 (0-150) mg/dl Random Tobramycin mcg/ml Valproic Acid (50-100) mcg/ml 08/06/20 08/06/20 08/06/20 Range/Units 10:24 07:02 07:02 WBC (4.8-10.8) K/uL RBC (4.2-5.4) M/uL Hgb (12.0-16.0) g/dL Hct (37-47) % MCV (80-100) fL MCH (25-34) pg MCHC (32-36) g/dL RDW Std Deviation (36.4-46.3) fL RDW Coeff of [place]quito (11.5-14.5) % Plt Count (130-400) K/uL MPV (7.4-10.4) fL Immature Gran % (Auto) % Neut % (Auto) % Lymph % (Auto) % [place] % (Auto) % Eos % (Auto) % Baso % (Auto) % Reticulocyte % (Auto) (0.5-2.0) % Neut # (Auto) (1.4-6.5) K/uL Lymph # (Auto) (1.2-3.4) K/uL [place] # (Auto) (0.11-0.59) K/uL Eos # (Auto) (0-0.5) K/uL Baso # (Auto) (0-0.2) K/uL Reticulocyte # (0.02-0.10) 10^6/uL Immature Gran # (Auto) (0.00-0.02) K/uL Toxic Granulation Platelet Estimate (Normal) Polychromasia Peripher Smr Path Cons Cancelled Haptoglobin PT (9.0-12.0) Seconds INR (0.9-1.1) APTT (21.0-31.0) Seconds PTT Ratio Fibrinogen 337 (184-400) mg/dl Fibrin Degrad Products 10-40 H (<10) mcg/ml Sodium Potassium Chloride Carbon Dioxide Anion Gap BUN Creatinine Est Cr Clr Drug Dosing Est GFR ( Amer) Est GFR (Non-Af Amer) BUN/Creatinine Ratio Glucose POC Glucose (70-99) mg/dl Calcium Phosphorus Magnesium Iron (35-150) mcg/dl TIBC (250-450) mcg/dl Transferrin (200-360) mg/dl Ferritin (8-388) ng/ml Total Bilirubin Direct Bilirubin AST ALT Alkaline Phosphatase Ammonia (11-32) umol/L Lactate Dehydrogenase (84-246) U/L Total Protein Albumin Triglycerides (0-150) mg/dl Random Tobramycin mcg/ml Valproic Acid (50-100) mcg/ml 08/06/20 08/06/20 08/06/20 Range/Units 07:02 05:02 05:02 WBC (4.8-10.8) K/uL RBC (4.2-5.4) M/uL Hgb (12.0-16.0) g/dL Hct (37-47) % MCV (80-100) fL MCH (25-34) pg MCHC (32-36) g/dL RDW Std Deviation (36.4-46.3) fL RDW Coeff of [place]quito (11.5-14.5) % Plt Count (130-400) K/uL MPV (7.4-10.4) fL Immature Gran % (Auto) % Neut % (Auto) % Lymph % (Auto) % [place] % (Auto) % Eos % (Auto) % Baso % (Auto) % Reticulocyte % (Auto) (0.5-2.0) % Neut # (Auto) (1.4-6.5) K/uL Lymph # (Auto) (1.2-3.4) K/uL [place] # (Auto) (0.11-0.59) K/uL Eos # (Auto) (0-0.5) K/uL Baso # (Auto) (0-0.2) K/uL Reticulocyte # (0.02-0.10) 10^6/uL Immature Gran # (Auto) (0.00-0.02) K/uL Toxic Granulation Platelet Estimate (Normal) Polychromasia Peripher Smr Path Cons Haptoglobin PT 11.9 (9.0-12.0) Seconds INR 1.2 H (0.9-1.1) APTT 30.5 (21.0-31.0) Seconds PTT Ratio 1.2 Fibrinogen (184-400) mg/dl Fibrin Degrad Products (<10) mcg/ml Sodium 139 Cancelled Potassium 3.6 Cancelled Chloride 108 H Cancelled Carbon Dioxide 22 Cancelled Anion Gap 9.0 Cancelled BUN 4 L D Cancelled Creatinine 0.33 L Cancelled Est Cr Clr Drug Dosing 222.3 Cancelled Est GFR ( Amer) > 150.0 Cancelled Est GFR (Non-Af Amer) > 150.0 Cancelled BUN/Creatinine Ratio 10.9 Cancelled Glucose 71 Cancelled POC Glucose (70-99) mg/dl Calcium 8.2 L Cancelled Phosphorus 2.9 Cancelled Magnesium 1.9 Cancelled Iron (35-150) mcg/dl TIBC (250-450) mcg/dl Transferrin (200-360) mg/dl Ferritin (8-388) ng/ml Total Bilirubin 0.3 Cancelled Direct Bilirubin 0.2 D Cancelled AST 217 H Cancelled ALT 177 H Cancelled Alkaline Phosphatase 117 Cancelled Ammonia (11-32) umol/L Lactate Dehydrogenase (84-246) U/L Total Protein 6.4 Cancelled Albumin 2.6 L Cancelled Triglycerides (0-150) mg/dl Random Tobramycin mcg/ml Valproic Acid (50-100) mcg/ml 08/06/20 08/05/20 Range/Units 05:02 05:07 WBC 1.27 L (4.8-10.8) K/uL RBC 2.97 L (4.2-5.4) M/uL Hgb 9.9 L (12.0-16.0) g/dL Hct 29.0 L (37-47) % MCV 97.6 (80-100) fL MCH 33.3 (25-34) pg MCHC 34.1 (32-36) g/dL RDW Std Deviation 45.1 (36.4-46.3) fL RDW Coeff of [place] 12.6 (11.5-14.5) % Plt Count 28 L* (130-400) K/uL MPV 9.6 (7.4-10.4) fL Immature Gran % (Auto) 0.0 % Neut % (Auto) 56.7 % Lymph % (Auto) 26.8 % [place] % (Auto) 16.5 % Eos % (Auto) 0.0 % Baso % (Auto) 0.0 % Reticulocyte % (Auto) (0.5-2.0) % Neut # (Auto) 0.72 L* (1.4-6.5) K/uL Lymph # (Auto) 0.34 L (1.2-3.4) K/uL [place] # (Auto) 0.21 (0.11-0.59) K/uL Eos # (Auto) 0.00 (0-0.5) K/uL Baso # (Auto) 0.00 (0-0.2) K/uL Reticulocyte # (0.02-0.10) 10^6/uL Immature Gran # (Auto) 0.00 (0.00-0.02) K/uL Toxic Granulation 1+ Platelet Estimate Decreased L (Normal) Polychromasia 1+ Peripher Smr Path Cons Haptoglobin PT (9.0-12.0) Seconds INR (0.9-1.1) APTT (21.0-31.0) Seconds PTT Ratio Fibrinogen (184-400) mg/dl Fibrin Degrad Products (<10) mcg/ml Sodium Potassium Chloride Carbon Dioxide Anion Gap BUN Creatinine Est Cr Clr Drug Dosing Est GFR ( Amer) Est GFR (Non-Af Amer) BUN/Creatinine Ratio Glucose POC Glucose (70-99) mg/dl Calcium Phosphorus Magnesium Iron (35-150) mcg/dl TIBC (250-450) mcg/dl Transferrin (200-360) mg/dl Ferritin (8-388) ng/ml Total Bilirubin Direct Bilirubin AST ALT Alkaline Phosphatase Ammonia (11-32) umol/L Lactate Dehydrogenase (84-246) U/L Total Protein Albumin Triglycerides (0-150) mg/dl Random Tobramycin mcg/ml Valproic Acid (50-100) mcg/ml Diagnostic Findings ULTRASOUND RIGHT UPPER QUADRANT ABDOMEN CLINICAL HISTORY: Abnormal liver function studies. COMPARISON STUDY: Abdominal CT dated 08/05/2020. TECHNIQUE: Real-time, grayscale, and color flow sonography of the right upper quadrant of the abdomen was performed. Images are reviewed in the transverse and longitudinal planes. FINDINGS: Liver: The liver is top normal in size. Echotexture is normal. There is no intrahepatic biliary ductal dilatation. The main portal vein is patent. Gallbladder: The gallbladder is contracted, and the wall appears significantly thickened and heterogeneous. No shadowing gallstones are identified. No pericholecystic fluid is seen. A sonographic Watson's sign could not be evaluated. The common bile duct measures up to 0.4 cm in diameter. Pancreas: Visualized portions of the pancreatic head and body are normal in appearance. Right kidney: Survey images of the right kidney demonstrate normal size and echotexture. There is no hydronephrosis. Ascites: None. IMPRESSION: 1. The liver is top normal in size. Echotexture is normal. 2. The gallbladder is contracted and appears thick walled and heterogeneous. No shadowing gallstones are identified and this may be related to hepatocellular disease. This finding is of indeterminate significance, and if there is clinical concern for acute cholecystitis a nuclear hepatobiliary scan should be obtained. 3. There is no intra or extrahepatic biliary ductal dilatation. PG Care Time/CCT Total # of Minutes Spent Total Time Spent with Patient: Total time spent is greater than 50% in coordination of care (as documented) at patient's floor/unit and/or counseling patient: Coding Level of Care Code 90581 Subseq Hosp Care Lvl 2 Diagnoses Sepsis A41.9 Acute on chronic respiratory failure with hypoxemia J96.21 Pneumonia J18.9 Laterality: left Lung location: lower lobe of lung Pneumonia type: due to unspecified organism Quadriplegic cerebral palsy G80.8 Seizure disorder G40.909 Thrombocytopenia D69.6 Abnormal LFTs R94.5 DVT prophylaxis Z29.9 (1) Pneumonia Laterality: left Lung location: lower lobe of lung Pneumonia type: due to unspecified organism Qualified Code(s): J18.9 - Pneumonia, unspecified organism
[2020-08-07] MEDS: TOBRAMYCIN SULFATE IV SCH ×2 (01:31→13:47)
[2020-08-07] MEDS: DEXTROSE 5% IV SCH ×2 (01:31→13:47)
[2020-08-07] MEDS ORDERED: LORazepam 0.5 MG/1 ML VIAL IV STA (02:19)
[2020-08-07] MEDS: NSS + 20MEQ KCL 20 MEQ/1,000 ML BAG IV SCH (04:03)
[2020-08-07 05:31] LABS: Hematocrit (blood only) 35.3 % (37-47); Hemoglobin 12.2 g/dL (12.0-16.0); Mean Corpuscular Hemoglobin 33.9 pg (25-34); Mean Corpuscular Hgb Conc 34.6 g/dL (32-36); Mean Corpuscular Volume 98.1 fL (80-100); RDW Coefficient of Variation 12.4 % (11.5-14.5); RDW Standard Deviation 44.9 fL (36.4-46.3); White Blood Count 4.01 K/uL (4.8-10.8)
[2020-08-07 05:50] LABS: Alanine Aminotransferase 221 U/L (12-78); Albumin Level 2.8 gm/dl (3.4-5.0); Aspartate Aminotransferase 228 U/L (15-37); BUN Creatinine Ratio 9.8 (10-20); Bilirubin Direct 0.2 mg/dl (0-0.2); Blood Urea Nitrogen 4 mg/dl (7-18); Calcium 7.7 mg/dl (8.5-10.1); Carbon Dioxide 24 mmol/L (21-32); Chloride 107 mmol/L (98-107); Creatinine Clr Calc Pharmacy 174.6 ml/min; Est GFR (African American) > 150.0 ml/min; Est GFR (Non-African American) 144.5 ml/min; Glucose 81 mg/dl (70-99); Mean Platelet Volume 10.4 fL (7.4-10.4); Platelet Count 33 K/uL (130-400); Potassium 3.9 mmol/L (3.5-5.1); Sodium 139 mmol/L (136-145)
[2020-08-07 05:53] LABS: Alkaline Phosphatase 177 U/L (45-117); Bilirubin,Total 0.4 mg/dl (0.2-1); Phosphorus 2.7 mg/dl (2.5-4.9)
[2020-08-07 06:09] LABS: Basophils # (auto) 0.01 K/uL (0-0.2); Basophils % (auto) 0.2 %; Immature Granulocytes # (auto) 0.01 K/uL (0.00-0.02); Immature Granulocytes % (auto) 0.2 %; Lymphocytes # (auto) 0.59 K/uL (1.2-3.4); Lymphocytes % (auto) 14.7 %; Monocytes # (auto) 0.36 K/uL (0.11-0.59); Neutrophils # (auto) 3.04 K/uL (1.4-6.5); Neutrophils % (auto) 75.9 %; RBC Morphology Unremarkable
[2020-08-07] MEDS: ACETAMINOPHEN SUSP 325 MG/10.15 ML UDC PO PRN (06:11)
[2020-08-07 06:18] LABS: INR 1.1 (0.9-1.1); Partial Thromboplastin Ratio 1.1; Partial Thromboplastin Time 29.2 Seconds (21.0-31.0); Prothrombin Time 11.4 Seconds (9.0-12.0)
[2020-08-07] MEDS ORDERED: STAT IV Infusion **Titration per Protocol STA (07:14)
[2020-08-07] MEDS ORDERED: MIDAZOLAM HCL 5 MG/ML 1 ML VIAL ONE ×2 (07:27→16:44)
[2020-08-07] MEDS: DEXMEDETOMIDINE HCL 200 MCG in SODIUM CHLORIDE 0.9% 48 ML IV SCH ×2 (07:35→22:50)
[2020-08-07] MEDS ORDERED: ROCURONIUM BROMIDE 10 MG/ML 5 ML VIAL IV ONE (07:46)
--- NOTE | 2020-08-07 08:02 | XRay Report ---
XR chest 1V portable HISTORY: pneumonia COMPARISON: Chest CT 08/05/2020. FINDINGS: Tracheostomy tube is a good position. There is progressive consolidation and volume loss wi thin the left hemithorax and left mediastinal shift. This favors partial collapse of the left lung co uld be due to mucous plugging. The right lung is clear. No pneumothorax. IMPRESSION: 1. Progressive consolidation within the left hemithorax with volume loss and left mediastinal shift. This favors mucous plugging of the left bronchi. Follow-up bronchoscopy recommended for further evalu ation. 2. The tracheostomy tube is in good position. 3. These findings were discussed with Dr. Stover at 8:18 AM on 08/07/2020. ACT 112: Negative or not required by law. Electronically signed by: Edmund Dorman M.D. 08/07/2020 8:19 AM
--- NOTE | 2020-08-07 08:14 | Procedure Note ---
Procedure Note Date of Service August 07, 2020 Note PREOPERATIVE DIAGNOSIS: Left lung whiteout due to mucous plugging PROCEDURE PERFORMED: Flexible fiberoptic bronchoscopy COMPLICATIONS: None. INDICATION: Acute respiratory failure secondary to left lung mucous plugging PROCEDURE: Informed consent was obtained from the mother over the phone. Timeout was completed prior to the procedure. The patient was started on a continuous Precedex infusion during the procedure. She was also given 5 mg of Versed in sequential doses due to agitation. Patient saturations were in the mid 70s and we were actively bagging the patient utilizing an Ambu bag with 100% oxygen. I introduced the bronchoscope during the tracheostomy. Massive amounts of thick white secretions were noted emanating from the left mainstem bronchus. We were able to sequentially aspirate these large mucous plugs in the left lung. Her oxygen saturations dramatically improved after aspiration of secretions. There was some scope trauma noted in the left upper lobe with a mild amount of oozing blood. After bronchoscopy was completed, airway inspection was performed. Minimal secretions noted in the left lower lobe. The scope was then withdrawn. Patient's oxygen saturations are now 98%. She is currently on AC/VC 100% FiO2 and PEEP of 8. Repeat chest x-ray is pending. Coding CPT Codes Pulmonary/Thoracic - Pulmonary and Thoracic: 70057 Bronchoscopy, clear airways ([id number]) Sedation/Anesthesia - Sedation/Anesthesia: 85709 Mod Sedation by the same physician;Init15 Min Child Age 5 & Up ([id number]) [facility] [place] Codes (Charges) Pulmonary/Thoracic Procedure 1: Pulmonary and Thoracic: 60375 Bronchoscopy, clear airways Sedation/Anesthesia Procedure 1: Sedation/Anesthesia: 20144 Mod Sedation by the same physician;Init15 Min Child Age 5 & Up
--- NOTE | 2020-08-07 08:24 | Critical Care Progress Note ---
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 Repeat valproic acid level within normal limits today. Will reduce the dose of valproic acid. Will discuss with pharmacy. Continue her home seizure medication otherwise. We will use Precedex to promote ventilator synchrony. Resp: Severe left lung mucous plugging noted and she is status post bronchoscopy today with improvement. We will leave the patient on mechanical ventilator for today. We will discontinue hypertonic saline and Mucinex. Continue albuterol nebs and physiotherapy. Continue antibiotics for pseudomonal CV: Hypotension noted during the bronchoscopy. This is resolving. She did receive a bolus of saline during bronchoscopy. Fluids/Renal: We will hold tube feeds today. ID: Sepsis likely secondary to bronchopneumonia. 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 Continue tobramycin IV and Zosyn IV. Contact precautions. GI/Nutrition: Transaminitis: Mild. GI consulted. Possibly related to valproic acid level being elevated. Liver ultrasound reviewed with contraction of the gallbladder. HIDA scan ordered, but will be on hold for today given respiratory failure. Heme: Thrombocytopenia noted along with iron studies low. Possibly sepsis mediated and anemia of chronic disease. Will consider heme/onc consult if worsening. ?HLH. Ferritin and triglyceride level has been ordered. Endocrine: ICU hyperglycemia protocol Vascular access: Peripheral IVs Code Status: DNR/DNI in event of cardiac arrest Disposition: ICU CRITICAL CARE TIME - I have personally spent 45 minutes of critical care time in the direct management of this patient. This is a life/limb threatening event. This includes time spent evaluating patient, direct bedside care, chart review, placing orders, interpretation of diagnostic studies, discussion with consultants, patient, and family members, as well as other required patient management activities. This time is exclusive of all separately billable procedures, and teaching time and separate from and in addition to any other critical care service time. (2) Abnormal LFTs: (3) Thrombocytopenia: (4) Sepsis: (5) Multiple tracheobronchial mucus plugs: Admission and Anticipated Discharge Date Admission Date: August 05, 2020 Subjective Patient seen and examined this morning. She was in severe respiratory distress with respiratory rates in the 40s. She was also tachycardic with a heart rate in the 130s. She has been febrile overnight. Emergent bronchoscopy was performed of the left lung due to massive mucous plugging. Saturations and heart rate improved after bronchoscopy. She is now on mechanical ventilator. Hypotension has also improved. Review of Systems Review of Systems: Unobtainable due to cognitive status Physical Exam Constitutional: Severe distress. Chronically ill-appearing. Respiratory: Diminished lung sounds on the left. Coarse rhonchi on the right. Cardiovascular: RRR, no murmur, no edema Gastrointestinal (Abdomen): normal bowel sounds, soft, nontender, no hepatosplenomegaly Musculoskeletal: Bilateral contractures noted Skin: no rashes, warm and dry Neurologic: Nonfocal. Psychiatric: Unobtainable due to chronic cerebral palsy and trach Results & Data Results & Data ([facility]) Vital Signs (Past 12 Hours) Vital Signs Temp Pulse Resp BP Pulse Ox 08/07/20 06:13 102.6 F H 134 H 28 H 100/72 88 L 08/07/20 05:00 101.5 F H 130 H 18 86 L 08/07/20 04:13 100.8 F H 117 H 48 H 106/72 89 L 08/07/20 03:13 100.0 F H 110 H 50 H 107/68 87 L 08/07/20 02:13 99.5 F 110 H 25 H 114/71 86 L 08/07/20 01:13 99.7 F H 104 H 22 115/73 90 08/07/20 00:13 99.9 F H 102 H 18 104/67 93 08/07/20 00:00 96 H 08/06/20 23:13 100.2 F H 96 H 29 H 95/67 L 93 08/06/20 22:14 100.4 F H 100 H 29 H 106/62 88 L 08/06/20 21:14 100.6 F H 99 H 34 H 100/62 95 chest x-ray from today demonstrates complete whiteout of the left lung with volume loss Coding Level of Care Code Critical Care 1st 30-74 mins Diagnoses Acute on chronic respiratory failure with hypoxemia J96.21 Abnormal LFTs R94.5 Thrombocytopenia D69.6 Sepsis A41.9 Multiple tracheobronchial mucus plugs T17.800A Time Spent (min) 45
[2020-08-07] MEDS: fentaNYL citrate 100 MCG/2 ML VIAL ONE ×2 (08:27→08:30)
[2020-08-07] MEDS: BUDESONIDE 0.5 MG/2 ML VIAL (PULMICORT) INH SCH ×2 (08:29→20:16)
[2020-08-07] MEDS: TUBE FEEDING WATER FLUSH NG SCH ×4 (08:38→20:25)
[2020-08-07] MEDS: BACLOFEN 20 MG TAB PEG SCH ×3 (08:40→20:27)
[2020-08-07] MEDS: ZONISAMIDE 100 MG PO SCH ×2 (08:40→20:27)
[2020-08-07] MEDS: PIPERACILLIN/TAZOBACTAM 4.5 GM in DEXTROSE 5% 100 ML IV SCH ×3 (08:41→23:20)
[2020-08-07] MEDS: FAMOTIDINE 20 MG in SYRINGE 3 ML IV SCH ×2 (08:41→20:25)
[2020-08-07 08:59] LABS: Hepatitis B Surf Ag Rflx Conf Neg (Neg)
--- NOTE | 2020-08-07 09:15 | XRay Report ---
XR chest 1V portable CLINICAL HISTORY: s/p bronchoscopy COMPARISON STUDY: August 07, 2020 at 07:06 hours FINDINGS: No pneumothorax. There is significant interval improvement of left lung aeration. Mild blunting of the left costophren ic angle could represent small left pleural effusion. Reticular opacities are seen within left mid to lower lung region with few air bronchograms which cou ld represent residual atelectasis or pneumonia. Cardiomediastinal silhouette is within normal limits in size. No significant pulmonary vascular congestion.. Osseous structures: unremarkable Stable position of tracheostomy tube. Multiple overlying wires and lines limit evaluation. IMPRESSION: 1. Significant interval improvement of left lung aeration. Possible small left pleural effusion and atelectasis/infiltrate within left lung as detailed above. 2. Stable position of tracheostomy tube. ACT 112: Negative or not required by law. The above report was generated using voice recognition software. It may contain grammatical, syntax o r spelling errors. Electronically signed by: Blanca Aguirre DO 08/07/2020 9:14 AM
[2020-08-07 09:28] LABS: Hepatitis C IgG 13Yrs+Old_Rflx Neg (Neg)
[2020-08-07] MEDS: ACETYLCYSTEINE 10% INHAL SOLN 4 ML **DISPENSED BY RESP. INH SCH (09:29)
[2020-08-07] MEDS: SODIUM CHLOR 7% 4 ML NEB NEB SCH (09:29)
[2020-08-07] MEDS: D5W AND LACTATED RINGERS 1,000 ML IV SCH ×2 (10:44→23:20)
--- NOTE | 2020-08-07 12:43 | Pharmacy Report ---
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 As a result a second random level was drawn ~12 hrs after the dose. This second level = 0.3mcg/mL. * Dose was changed to 380mg IV Q 12 hrs as a result given the near undetectable level send 12 hrs s/p dose. * Goal peak 8-10x VINICIUS or infecting organism when using extended interval dosing method * Goal trough: ideally undetectable but less than 0.5 may also be acceptable * Will recheck trough level w/ 4th dose Zosyn * eCrCl > 20, although BMI less than 35 will utilize the higher dose regimen due to critical illness, pulm infxn and multi-drug resistant ps aeruginosa history * continue 4.5gm ext-infusion Q 8 hrs Pharmacy will continue to follow and will adjust dose/frequency as necessary. Thank you.
[2020-08-07] MEDS: VALPROIC ACID 250 MG/5 ML PO SCH ×2 (13:47→20:26)
--- NOTE | 2020-08-07 16:37 | XRay Report ---
XR chest 1V portable CLINICAL HISTORY: hypoxia COMPARISON STUDY: Chest CT August 05, 2020. Chest radiograph August 07, 2020. FINDINGS: Tracheostomy tube is noted. Evaluation is suboptimal given difficulty positioning. There is no pneumothorax. Extensive left lung airspace opacity is noted. Left lung aeration has slightly decr eased since chest radiograph of August 07, 2020 at 8:49 AM. There is minimal right basilar opacity. Car diac size is normal. IMPRESSION: Extensive left lung airspace opacity with slight decrease in left lung aeration since pr ior chest radiograph. ACT 112: Negative or not required by law. Electronically signed by: Otto Pearce M.D. 08/07/2020 4:36 PM
[2020-08-07] MEDS ORDERED: fentaNYL citrate 100 MCG/2 ML VIAL ONE (16:44)
[2020-08-07] MEDS ORDERED: MIDAZOLAM HCL 5 MG/ML 1 ML VIAL IV ONE (17:04)
--- NOTE | 2020-08-07 17:05 | Procedure Note ---
Procedure Note Date of Service August 07, 2020 Note Consent was obtained from the patient's mother. Timeout performed prior to the procedure. Patient was on continuous Precedex during the procedure. 2 mg of IV Versed and 50 mcg of fentanyl were utilized as well. FiO2 was increased to 100% prior to the bronchoscopy. Repeat bronchoscopy performed today due to continued mucus plugging of the left lung. Disposable bronchoscope was inserted via tracheostomy. Large amount secretions noted emanating from the left mainstem bronchus. These were aspirated. Small amount of oozing blood noted throughout the airway due to suction trauma. Scope was then withdrawn to the level of the alannah. No active bleeding was seen. Scope was then completely withdrawn. Vital signs stable post bronchoscopy.. Coding CPT Codes Pulmonary/Thoracic - Pulmonary and Thoracic: 85389 Bronchoscopy, reclear airway ([id number]) [facility] [place]) Pulmonary/Thoracic Procedure 2: Pulmonary and Thoracic: 64863 Bronchoscopy, reclear airway
[2020-08-07] MEDS ORDERED: fentaNYL citrate 100 MCG/2 ML VIAL IV STA (17:07)
[2020-08-07] MEDS ORDERED: ALBUTEROL 0.083% NEBU SOLN 3 ML VIAL INH SCH (19:00)
--- NOTE | 2020-08-07 19:59 | Hospitalist Progress Note ---
Date of Service August 07, 2020 Assessment & Plan (1) Sepsis: Presented with fevers, acute on chronic respiratory failure with hypoxemia, tachycardia, tachypnea, thrombocytopenia and transaminitis. 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 Check hepatitis panel, CMV, EBV-Hep B and C negative, others pending Follow blood cultures-NGTD Urine culture is pending but UA seems contaminated Procalcitonin is negative Follow CBC, CMP, procalcitonin in the morning MRSA is negative-vancomycin discontinued Continue supplemental O2 and wean off as tolerated No need for vasopressors at this point Continue maintenance IV fluids Follow CXR (2) Acute on chronic respiratory failure with hypoxemia: Ongoing management for pneumonia as above, with acute worsening on AM of 08/07 requiring urgent bronchoscopy for suctioning of massive amoutns of sputuma nd mucus plugging from left mainstem bronchus Continue acetylcysteine nebulizers twice daily Continue budesonide inhaler twice daily, but discontinued hypertonic saline nebulizers and Mucinex today Continue tobramycin inhaled Wean back to baseline oxygen levels as needed (3) Pneumonia: As above (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 Likely related to sepsis Spleen is mildly enlarged Hold all antiplatelets and anticoagulation Follow CBC in the morning Check CMV, EBV-pending anaplasmosis testing not likely indicated (7) Abnormal LFTs: Worsening in the 200s for AST and ALT, bilirubin is normal CT abdomen/pelvis with normal liver and mildly enlarged spleen Right upper quadrant ultrasound performed does show normal echotexture of the liver, gallbladder is contracted and appears thick-walled and heterogenous but no shadowing gallstones are identified GI consultation appreciated Plan for HIDA scan but delayed today due to worsening PULM status -CMV, EBV, acute hepatitis panel pending -Consider anaplasmosis testing Follow LFTs in the morning Held valproic acid as this level was elevated and could be contributing- restarted at a lower dose (8) DVT prophylaxis: Holding on anticoagulation due to thrombocytopenia SCDs Disposition-continued stay in the ICU FEN-holding tube feeds, continue maintenance IV fluids, IV Pepcid for GI prophylaxis Admission and Anticipated Discharge Date Admission Date: August 05, 2020 Subjective Pt nonverbal. Had resp distress this AM and had white out on left on CXR, had urgent bronch this AM and had copious mucus plugging suctioned out. Had repeat bronchoscopy again this afternoon for copious secretions. Remains febrile. Was placed on vent all day and on Precedex gtt for sedation. Tube feeds placed on hold Review of Systems Review of Systems: Unobtainable due to cognitive status Physical Exam Constitutional: + thin; no acute distress Eyes: + anicteric sclerae Neck: trachea midline, no thyromegaly Musculoskeletal: Extremities: + extremities abnormal to inspection (Flexion contractures bilaterally), no cyanosis and no clubbing Skin: no rashes, warm and dry Results & Data Results & Data ([facility]) Vital Signs (Past 12 Hours) Vital Signs Temp Pulse Resp BP Pulse Ox 08/07/20 16:00 93 H 22 95 08/07/20 11:16 103 H 30 H 97 08/07/20 10:31 37.9 C H 99 H 96/61 L 98 08/07/20 10:26 37.9 C H 90 101/65 100 08/07/20 10:21 37.9 C H 91 H 101/64 99 08/07/20 10:16 37.9 C H 91 H 97/64 L 98 08/07/20 10:11 38.0 C H 88 102/63 100 08/07/20 10:06 38.0 C H 93 H 103/64 98 08/07/20 10:01 38.0 C H 100 H 96/59 L 98 08/07/20 10:00 38.0 C H 106 H 96 08/07/20 09:56 38.0 C H 102 H 99/57 L 97 08/07/20 09:51 38.0 C H 98 H 96/64 L 96 08/07/20 09:46 38.0 C H 95 H 98/59 L 95 08/07/20 09:41 38.0 C H 96 H 95/56 L 95 08/07/20 09:36 38.1 C H 105 H 91/52 L 95 08/07/20 09:31 38.1 C H 105 H 96/52 L 96 08/07/20 09:26 38.1 C H 106 H 98/57 L 94 08/07/20 09:21 38.1 C H 101 H 89/51 L 93 08/07/20 09:16 38.2 C H 109 H 95/52 L 92 08/07/20 09:11 38.2 C H 114 H 89/50 L 90 08/07/20 09:06 38.1 C H 107 H 92/53 L 91 08/07/20 09:01 38.1 C H 103 H 89/50 L 92 08/07/20 08:59 38.2 C H 105 H 93/53 L 91 08/07/20 08:57 38.2 C H 104 H 94/55 L 91 08/07/20 08:52 38.2 C H 108 H 89/41 L 90 08/07/20 08:51 38.2 C H 102 H 79/53 L 90 08/07/20 08:44 38.2 C H 108 H 94 08/07/20 08:42 38.3 C H 100 H 96/50 L 92 08/07/20 08:40 38.3 C H 99 H 84/47 L 92 08/07/20 08:38 38.3 C H 99 H 87/46 L 92 08/07/20 08:36 38.3 C H 106 H 87/50 L 94 08/07/20 08:35 16 08/07/20 08:34 38.4 C H 115 H 102/63 98 08/07/20 08:32 38.4 C H 104 H 95/56 L 99 08/07/20 08:30 38.5 C H 95 H 94/52 L 97 08/07/20 08:28 38.5 C H 95 H 94/46 L 96 08/07/20 08:26 38.6 C H 96 H 90/48 L 97 08/07/20 08:24 38.6 C H 96 H 98/48 L 97 08/07/20 08:22 38.7 C H 97 H 85/45 L 97 08/07/20 08:20 38.7 C H 98 H 89/46 L 96 08/07/20 08:18 38.8 C H 97 H 90/45 L 96 08/07/20 08:16 38.8 C H 98 H 88/48 L 96 08/07/20 08:14 38.9 C H 98 H 85/46 L 98 08/07/20 08:12 38.9 C H 101 H 81/50 L 98 08/07/20 08:10 39.0 C H 103 H 84/48 L 97 08/07/20 08:08 39.0 C H 104 H 80/47 L 96 08/07/20 08:06 39.1 C H 106 H 56 H 86/48 L 90 08/07/20 08:04 39.1 C H 106 H 28 H 83/49 L 91 08/07/20 08:02 39.1 C H 105 H 36 H 82/52 L 92 08/07/20 08:00 39.2 C H 108 H 46 H 77/42 L 93 08/07/20 07:58 39.2 C H 112 H 61 H 78/51 L 98 08/07/20 07:57 39.2 C H 117 H 55 H 103/64 98 08/07/20 07:54 39.1 C H 140 H 60 H 92/63 L 95 Laboratory Results 08/07/20 08/07/20 08/07/20 Range/Units 06:36 06:33 05:12 WBC (4.8-10.8) K/uL RBC (4.2-5.4) M/uL Hgb (12.0-16.0) g/dL Hct (37-47) % MCV (80-100) fL MCH (25-34) pg MCHC (32-36) g/dL RDW Std Deviation (36.4-46.3) fL RDW Coeff of Flaquito (11.5-14.5) % Plt Count (130-400) K/uL MPV (7.4-10.4) fL Immature Gran % (Auto) % Neut % (Auto) % Lymph % (Auto) % [place] % (Auto) % Eos % (Auto) % Baso % (Auto) % Neut # (Auto) (1.4-6.5) K/uL Lymph # (Auto) (1.2-3.4) K/uL [place] # (Auto) (0.11-0.59) K/uL Eos # (Auto) (0-0.5) K/uL Baso # (Auto) (0-0.2) K/uL Immature Gran # (Auto) (0.00-0.02) K/uL RBC Morphology Haptoglobin (43-212) mg/dL PT (9.0-12.0) Seconds INR (0.9-1.1) APTT (21.0-31.0) Seconds PTT Ratio Sodium (136-145) mmol/L Potassium (3.5-5.1) mmol/L Chloride (98-107) mmol/L Carbon Dioxide (21-32) mmol/L Anion Gap (3-11) BUN (7-18) mg/dl Creatinine (0.6-1.2) mg/dl Est Cr Clr Drug Dosing ml/min Est GFR ( Amer) ml/min Est GFR (Non-Af Amer) ml/min BUN/Creatinine Ratio (10-20) Glucose (70-99) mg/dl POC Glucose 76 67 L* (70-99) mg/dl Calcium (8.5-10.1) mg/dl Phosphorus (2.5-4.9) mg/dl Magnesium (1.8-2.4) mg/dl Total Bilirubin (0.2-1) mg/dl Direct Bilirubin (0-0.2) mg/dl AST (15-37) U/L ALT (12-78) U/L Alkaline Phosphatase (45-117) U/L Total Protein (6.4-8.2) gm/dl Albumin (3.4-5.0) gm/dl Procalcitonin (0-0.5) ng/ml Random Tobramycin mcg/ml Valproic Acid (50-100) mcg/ml CMV IgM Ab Pending CMV IgG Ab/TORCH Pending EBV Capsid Ag IgG Ab EBV Capsid Ag IgM Ab EBV Nuclear Antigen Ab EBV Antibody Interp Hepatitis A IgM Ab Hep Bs Antigen (Neg) Hep B Core IgM Ab Hepatitis C Antibody (Neg) 08/07/20 08/07/20 08/07/20 Range/Units 05:12 05:12 05:12 WBC (4.8-10.8) K/uL RBC (4.2-5.4) M/uL Hgb (12.0-16.0) g/dL Hct (37-47) % MCV (80-100) fL MCH (25-34) pg MCHC (32-36) g/dL RDW Std Deviation (36.4-46.3) fL RDW Coeff of Flaquito (11.5-14.5) % Plt Count (130-400) K/uL MPV (7.4-10.4) fL Immature Gran % (Auto) % Neut % (Auto) % Lymph % (Auto) % [place] % (Auto) % Eos % (Auto) % Baso % (Auto) % Neut # (Auto) (1.4-6.5) K/uL Lymph # (Auto) (1.2-3.4) K/uL [place] # (Auto) (0.11-0.59) K/uL Eos # (Auto) (0-0.5) K/uL Baso # (Auto) (0-0.2) K/uL Immature Gran # (Auto) (0.00-0.02) K/uL RBC Morphology Haptoglobin (43-212) mg/dL PT (9.0-12.0) Seconds INR (0.9-1.1) APTT (21.0-31.0) Seconds PTT Ratio Sodium (136-145) mmol/L Potassium (3.5-5.1) mmol/L Chloride (98-107) mmol/L Carbon Dioxide (21-32) mmol/L Anion Gap (3-11) BUN (7-18) mg/dl Creatinine (0.6-1.2) mg/dl Est Cr Clr Drug Dosing ml/min Est GFR ( Amer) ml/min Est GFR (Non-Af Amer) ml/min BUN/Creatinine Ratio (10-20) Glucose (70-99) mg/dl POC Glucose (70-99) mg/dl Calcium (8.5-10.1) mg/dl Phosphorus (2.5-4.9) mg/dl Magnesium (1.8-2.4) mg/dl Total Bilirubin (0.2-1) mg/dl Direct Bilirubin (0-0.2) mg/dl AST (15-37) U/L ALT (12-78) U/L Alkaline Phosphatase (45-117) U/L Total Protein (6.4-8.2) gm/dl Albumin (3.4-5.0) gm/dl Procalcitonin (0-0.5) ng/ml Random Tobramycin mcg/ml Valproic Acid (50-100) mcg/ml CMV IgM Ab Cancelled CMV IgG Ab/TORCH Cancelled EBV Capsid Ag IgG Ab Pending EBV Capsid Ag IgM Ab Pending EBV Nuclear Antigen Ab Pending EBV Antibody Interp Pending Hepatitis A IgM Ab Pending Hep Bs Antigen Neg (Neg) Hep B Core IgM Ab Pending Hepatitis C Antibody Neg (Neg) 08/07/20 08/07/20 08/07/20 Range/Units 05:12 05:12 05:12 WBC (4.8-10.8) K/uL RBC (4.2-5.4) M/uL Hgb (12.0-16.0) g/dL Hct (37-47) % MCV (80-100) fL MCH (25-34) pg MCHC (32-36) g/dL RDW Std Deviation (36.4-46.3) fL RDW Coeff of Flaquito (11.5-14.5) % Plt Count (130-400) K/uL MPV (7.4-10.4) fL Immature Gran % (Auto) % Neut % (Auto) % Lymph % (Auto) % [place] % (Auto) % Eos % (Auto) % Baso % (Auto) % Neut # (Auto) (1.4-6.5) K/uL Lymph # (Auto) (1.2-3.4) K/uL [place] # (Auto) (0.11-0.59) K/uL Eos # (Auto) (0-0.5) K/uL Baso # (Auto) (0-0.2) K/uL Immature Gran # (Auto) (0.00-0.02) K/uL RBC Morphology Haptoglobin (43-212) mg/dL PT (9.0-12.0) Seconds INR (0.9-1.1) APTT (21.0-31.0) Seconds PTT Ratio Sodium 139 (136-145) mmol/L Potassium 3.9 (3.5-5.1) mmol/L Chloride 107 (98-107) mmol/L Carbon Dioxide 24 (21-32) mmol/L Anion Gap 8.0 (3-11) BUN 4 L (7-18) mg/dl Creatinine 0.42 L (0.6-1.2) mg/dl Est Cr Clr Drug Dosing 174.6 ml/min Est GFR ( Amer) > 150.0 ml/min Est GFR (Non-Af Amer) 144.5 ml/min BUN/Creatinine Ratio 9.8 L (10-20) Glucose 81 (70-99) mg/dl POC Glucose (70-99) mg/dl Calcium 7.7 L (8.5-10.1) mg/dl Phosphorus 2.7 (2.5-4.9) mg/dl Magnesium 2.0 (1.8-2.4) mg/dl Total Bilirubin 0.4 (0.2-1) mg/dl Direct Bilirubin 0.2 (0-0.2) mg/dl AST 228 H (15-37) U/L ALT 221 H (12-78) U/L Alkaline Phosphatase 177 H (45-117) U/L Total Protein 7.0 (6.4-8.2) gm/dl Albumin 2.8 L (3.4-5.0) gm/dl Procalcitonin 0.35 (0-0.5) ng/ml Random Tobramycin mcg/ml Valproic Acid 80 (50-100) mcg/ml CMV IgM Ab CMV IgG Ab/TORCH EBV Capsid Ag IgG Ab EBV Capsid Ag IgM Ab EBV Nuclear Antigen Ab EBV Antibody Interp Hepatitis A IgM Ab Hep Bs Antigen (Neg) Hep B Core IgM Ab Hepatitis C Antibody (Neg) 08/07/20 08/07/20 08/07/20 Range/Units 05:12 05:12 00:08 WBC 4.01 L (4.8-10.8) K/uL RBC 3.60 L (4.2-5.4) M/uL Hgb 12.2 (12.0-16.0) g/dL Hct 35.3 L (37-47) % MCV 98.1 (80-100) fL MCH 33.9 (25-34) pg MCHC 34.6 (32-36) g/dL RDW Std Deviation 44.9 (36.4-46.3) fL RDW Coeff of Flaquito 12.4 (11.5-14.5) % Plt Count 33 L (130-400) K/uL MPV 10.4 (7.4-10.4) fL Immature Gran % (Auto) 0.2 % Neut % (Auto) 75.9 % Lymph % (Auto) 14.7 % [place] % (Auto) 9.0 % Eos % (Auto) 0.0 % Baso % (Auto) 0.2 % Neut # (Auto) 3.04 (1.4-6.5) K/uL Lymph # (Auto) 0.59 L (1.2-3.4) K/uL [place] # (Auto) 0.36 (0.11-0.59) K/uL Eos # (Auto) 0.00 (0-0.5) K/uL Baso # (Auto) 0.01 (0-0.2) K/uL Immature Gran # (Auto) 0.01 (0.00-0.02) K/uL RBC Morphology Unremarkable Haptoglobin (43-212) mg/dL PT 11.4 (9.0-12.0) Seconds INR 1.1 (0.9-1.1) APTT 29.2 (21.0-31.0) Seconds PTT Ratio 1.1 Sodium (136-145) mmol/L Potassium (3.5-5.1) mmol/L Chloride (98-107) mmol/L Carbon Dioxide (21-32) mmol/L Anion Gap (3-11) BUN (7-18) mg/dl Creatinine (0.6-1.2) mg/dl Est Cr Clr Drug Dosing ml/min Est GFR ( Amer) ml/min Est GFR (Non-Af Amer) ml/min BUN/Creatinine Ratio (10-20) Glucose (70-99) mg/dl POC Glucose 81 (70-99) mg/dl Calcium (8.5-10.1) mg/dl Phosphorus (2.5-4.9) mg/dl Magnesium (1.8-2.4) mg/dl Total Bilirubin (0.2-1) mg/dl Direct Bilirubin (0-0.2) mg/dl AST (15-37) U/L ALT (12-78) U/L Alkaline Phosphatase (45-117) U/L Total Protein (6.4-8.2) gm/dl Albumin (3.4-5.0) gm/dl Procalcitonin (0-0.5) ng/ml Random Tobramycin mcg/ml Valproic Acid (50-100) mcg/ml CMV IgM Ab CMV IgG Ab/TORCH EBV Capsid Ag IgG Ab EBV Capsid Ag IgM Ab EBV Nuclear Antigen Ab EBV Antibody Interp Hepatitis A IgM Ab Hep Bs Antigen (Neg) Hep B Core IgM Ab Hepatitis C Antibody (Neg) 08/06/20 08/06/20 Range/Units 23:59 10:24 WBC (4.8-10.8) K/uL RBC (4.2-5.4) M/uL Hgb (12.0-16.0) g/dL Hct (37-47) % MCV (80-100) fL MCH (25-34) pg MCHC (32-36) g/dL RDW Std Deviation (36.4-46.3) fL RDW Coeff of Flaquito (11.5-14.5) % Plt Count (130-400) K/uL MPV (7.4-10.4) fL Immature Gran % (Auto) % Neut % (Auto) % Lymph % (Auto) % [place] % (Auto) % Eos % (Auto) % Baso % (Auto) % Neut # (Auto) (1.4-6.5) K/uL Lymph # (Auto) (1.2-3.4) K/uL [place] # (Auto) (0.11-0.59) K/uL Eos # (Auto) (0-0.5) K/uL Baso # (Auto) (0-0.2) K/uL Immature Gran # (Auto) (0.00-0.02) K/uL RBC Morphology Haptoglobin 166 (43-212) mg/dL PT (9.0-12.0) Seconds INR (0.9-1.1) APTT (21.0-31.0) Seconds PTT Ratio Sodium (136-145) mmol/L Potassium (3.5-5.1) mmol/L Chloride (98-107) mmol/L Carbon Dioxide (21-32) mmol/L Anion Gap (3-11) BUN (7-18) mg/dl Creatinine (0.6-1.2) mg/dl Est Cr Clr Drug Dosing ml/min Est GFR ( Amer) ml/min Est GFR (Non-Af Amer) ml/min BUN/Creatinine Ratio (10-20) Glucose (70-99) mg/dl POC Glucose (70-99) mg/dl Calcium (8.5-10.1) mg/dl Phosphorus (2.5-4.9) mg/dl Magnesium (1.8-2.4) mg/dl Total Bilirubin (0.2-1) mg/dl Direct Bilirubin (0-0.2) mg/dl AST (15-37) U/L ALT (12-78) U/L Alkaline Phosphatase (45-117) U/L Total Protein (6.4-8.2) gm/dl Albumin (3.4-5.0) gm/dl Procalcitonin (0-0.5) ng/ml Random Tobramycin 0.30 mcg/ml Valproic Acid (50-100) mcg/ml CMV IgM Ab CMV IgG Ab/TORCH EBV Capsid Ag IgG Ab EBV Capsid Ag IgM Ab EBV Nuclear Antigen Ab EBV Antibody Interp Hepatitis A IgM Ab Hep Bs Antigen (Neg) Hep B Core IgM Ab Hepatitis C Antibody (Neg) Diagnostic Findings CXRs reviewed x 3 PG Care Time/CCT Total # of Minutes Spent Total Time Spent with Patient: Total time spent is greater than 50% in coordination of care (as documented) at patient's floor/unit and/or counseling patient: Coding Level of Care Code 21019 Subseq Hosp Care Lvl 1 Diagnoses Sepsis A41.9 Acute on chronic respiratory failure with hypoxemia J96.21 Pneumonia J18.9 Laterality: left Lung location: lower lobe of lung Pneumonia type: due to unspecified organism Quadriplegic cerebral palsy G80.8 Seizure disorder G40.909 Thrombocytopenia D69.6 Abnormal LFTs R94.5 DVT prophylaxis Z29.9 (1) Pneumonia Laterality: left Lung location: lower lobe of lung Pneumonia type: due to unspecified organism Qualified Code(s): J18.9 - Pneumonia, unspecified organism
[2020-08-07] MEDS ORDERED: ALBUTEROL 0.083% NEBU SOLN 3 ML VIAL ONE (23:02)
[2020-08-07] MEDS ORDERED: ALBUT/IPRATROP 3MG/0.5MG NEB 3 ML VIAL ONE (23:05)
[2020-08-07] MEDS: ALBUT/IPRATROP 3MG/0.5MG NEB 3 ML VIAL NEB SCH (23:08)
[2020-08-08] MEDS ORDERED: ALBUMIN 5% 250 ML IV ONE (00:33)
[2020-08-08] MEDS ORDERED: [UNRECOGNIZED DRUG - OTHER] ONE (01:30)
[2020-08-08] MEDS: DEXTROSE 5% IV SCH ×2 (02:07→20:38)
[2020-08-08] MEDS: TOBRAMYCIN SULFATE IV SCH ×2 (02:07→20:38)
[2020-08-08] MEDS: ALBUT/IPRATROP 3MG/0.5MG NEB 3 ML VIAL NEB SCH ×5 (04:09→20:10)
[2020-08-08 04:41] LABS: Hepatitis A Antibody IgM NON-REACTIVE (NON-REACTIVE); Hepatitis B Core Antibody IgM NON-REACTIVE (NON-REACTIVE)
[2020-08-08 05:00] LABS: Hematocrit (blood only) 28.3 % (37-47); Hemoglobin 9.8 g/dL (12.0-16.0); Mean Corpuscular Hemoglobin 33.2 pg (25-34); Mean Corpuscular Hgb Conc 34.6 g/dL (32-36); Mean Corpuscular Volume 95.9 fL (80-100); RDW Coefficient of Variation 12.7 % (11.5-14.5); RDW Standard Deviation 44.2 fL (36.4-46.3); Red Blood Count 2.95 M/uL (4.2-5.4); White Blood Count 2.61 K/uL (4.8-10.8)
[2020-08-08 05:05] LABS: Mean Platelet Volume 11.2 fL (7.4-10.4); Platelet Count 42 K/uL (130-400)
[2020-08-08 05:24] LABS: BUN Creatinine Ratio 9.8 (10-20); Blood Urea Nitrogen 5 mg/dl (7-18); Calcium 8.5 mg/dl (8.5-10.1); Carbon Dioxide 24 mmol/L (21-32); Chloride 114 mmol/L (98-107); Creatinine Clr Calc Pharmacy 154.5 ml/min; Est GFR (African American) > 150.0 ml/min; Est GFR (Non-African American) 138.3 ml/min; Glucose 118 mg/dl (70-99); Magnesium 2.2 mg/dl (1.8-2.4); Potassium 3.4 mmol/L (3.5-5.1); Sodium 141 mmol/L (136-145)
[2020-08-08 05:33] LABS: Immature Granulocytes # (auto) 0.01 K/uL (0.00-0.02); Immature Granulocytes % (auto) 0.4 %; Lymphocytes # (auto) 0.88 K/uL (1.2-3.4); Lymphocytes % (auto) 33.7 %; Monocytes # (auto) 0.38 K/uL (0.11-0.59); Monocytes % (auto) 14.6 %; Neutrophils # (auto) 1.34 K/uL (1.4-6.5); Neutrophils % (auto) 51.3 %; Toxic Vacuolation 1+
[2020-08-08] MEDS: BUDESONIDE 0.5 MG/2 ML VIAL (PULMICORT) INH SCH ×2 (07:29→20:10)
[2020-08-08] MEDS ORDERED: POTASSIUM CHLORIDE 20 MEQ/15 ML UDC PO STA (07:53)
[2020-08-08] MEDS: TUBE FEEDING WATER FLUSH NG SCH ×4 (08:19→20:38)
[2020-08-08] MEDS: PIPERACILLIN/TAZOBACTAM 4.5 GM in DEXTROSE 5% 100 ML IV SCH ×2 (08:19→15:55)
[2020-08-08] MEDS: FAMOTIDINE 20 MG in SYRINGE 3 ML IV SCH ×2 (08:20→20:39)
[2020-08-08] MEDS: POTASSIUM CHLORIDE / WTR 10 MEQ/100 ML PLCT IV SCH ×2 (08:20→10:31)
[2020-08-08] MEDS: VALPROIC ACID 250 MG/5 ML PO SCH ×3 (08:20→20:39)
[2020-08-08] MEDS: ZONISAMIDE 100 MG PO SCH ×2 (08:20→20:40)
[2020-08-08] MEDS: BACLOFEN 20 MG TAB PEG SCH ×3 (08:21→20:39)
--- NOTE | 2020-08-08 09:27 | Critical Care Progress Note ---
Date of Service August 08, 2020 Assessment & Plan (1) Acute on chronic respiratory failure with hypoxemia: Reason Critically Ill: 24-year-old female with chronic tracheostomy dependence who was admitted for sepsis likely pulmonary source PLAN: Neuro: Cerebral palsy -Continue reduced dose of valproic acid. We will check a valproic acid level tomorrow. Pharmacy is assisting in management. Continue her home seizure medication otherwise. We will use Precedex to promote ventilator synchrony. Resp: Severe left lung mucous plugging noted and she is status post bronchoscopy twice 08/07/2020. Will attempt to take her off the ventilator during the day today and place her back on during the evening. Continue Mucinex 1200 mg twice daily. Continue albuterol nebs and vest percussive therapy 4 times a day. Hypertonic saline was discontinued as the patient's mother notes that she seems to be worse with hypertonic saline. Continue tobramycin IV and Zosyn IV for pseudomonal pneumonia. CV: No significant issues at present. Her normal blood pressures are around 90/60. Fluids/Renal: We will restart tube feeds as a slow continuous infusion during the hospitalization. ID: Sepsis likely secondary to bronchopneumonia. Sputum culture is notable for 2 different pseudomonal organisms that are multidrug resistant. Continue tobramycin IV and Zosyn IV. Pharmacy assisting with dosing. Contact precautions. GI/Nutrition: Transaminitis: Mild. Repeat LFTs today. GI consulted. Possibly related to valproic acid level being elevated. Liver ultrasound reviewed with contraction of the gallbladder. HIDA scan ordered. Heme: Thrombocytopenia noted along with low iron studies. Platelet count is stable. Possibly sepsis mediated and anemia of chronic disease. Will consider heme/onc consult if worsening. No evidence of HL H seen as ferritin and triglycerides were within normal limits. Endocrine: ICU hyperglycemia protocol Vascular access: Peripheral IVs Code Status: DNR/DNI in event of cardiac arrest Disposition: ICU (2) Abnormal LFTs: (3) Thrombocytopenia: (4) Sepsis: (5) Multiple tracheobronchial mucus plugs: (6) Thrombocytopenia: (7) Hypotension, chronic: (8) Transaminitis: Admission and Anticipated Discharge Date Admission Date: August 05, 2020 Subjective Patient seen and examined this morning. Nonverbal at baseline. Currently on the mechanical ventilator and 0.1 and Precedex. Review of systems is unable to be obtained. She did receive albumin overnight for hypotension. Review of Systems Review of Systems: Unobtainable due to cognitive status Physical Exam Constitutional: Chronically ill-appearing. No acute distress. Respiratory: Diminished lung sounds on the left. Coarse rhonchi on the right. Cardiovascular: RRR, no murmur, no edema Gastrointestinal (Abdomen): normal bowel sounds, soft, nontender, no hepatosplenomegaly Musculoskeletal: Bilateral contractures noted Skin: no rashes, warm and dry Neurologic: Nonfocal. Psychiatric: Unobtainable due to chronic cerebral palsy and trach Results & Data Results & Data ([facility]) Vital Signs (Past 12 Hours) Vital Signs Temp Pulse Resp BP Pulse Ox Pulse Ox 08/08/20 08:00 85 08/08/20 07:25 83 17 100 08/08/20 06:00 97.7 F 74 16 84/49 L 96 08/08/20 05:30 97.7 F 78 16 96 08/08/20 05:00 97.9 F 82 16 93/51 L 95 08/08/20 04:30 98.2 F 92 H 18 97 08/08/20 04:12 86 28 H 100 08/08/20 04:00 97.9 F 95 H 20 88/53 L 98 08/08/20 03:30 97.7 F 73 16 99 08/08/20 03:00 97.7 F 72 82/42 L 95 08/08/20 02:30 97.7 F 72 94 08/08/20 02:00 97.7 F 72 16 93/64 L 99 08/08/20 01:30 97.7 F 73 16 93/54 L 98 08/08/20 01:00 98.1 F 76 16 93/54 L 100 08/08/20 00:30 98.4 F 80 16 97 08/08/20 00:00 99.1 F 86 16 84/47 L 99 08/07/20 23:30 90 24 86/49 L 98 08/07/20 23:23 84 22 98 08/07/20 23:00 92 H 16 82/45 L 97 08/07/20 22:30 78 16 88/56 L 99 08/07/20 22:00 100.0 F H 78 16 85/53 L 97 99 08/07/20 21:30 82 16 78/43 L 98 vital signs, labs and imaging reviewed. Coding Level of Care Code 24632 Subseq Hosp Care Lvl 3 Diagnoses Acute on chronic respiratory failure with hypoxemia J96.21 Abnormal LFTs R94.5 Thrombocytopenia D69.6 Sepsis A41.9 Multiple tracheobronchial mucus plugs T17.800A Thrombocytopenia D69.6 Hypotension, chronic I95.89 Transaminitis R74.01
--- NOTE | 2020-08-08 10:34 | XRay Report ---
XR chest 1V portable CLINICAL HISTORY: resp failure COMPARISON STUDY: August 07, 2020 FINDINGS: No pneumothorax. Minimal blunting of bilateral costophrenic angles are seen and could represent small bilateral pleura l effusion. Small atelectasis are seen in bilateral bases, stable on the right and significantly improved on the left. Cardiomediastinal silhouette is within normal limits in size. Pulmonary vasculature is indistinct.. However evaluation is limited due to multiple overlying tubes a nd wires. Osseous structures: unremarkable Stable position of tracheostomy tube. IMPRESSION: 1. Significant interval improvement of opacity at the left hemithorax. 2. Small atelectasis at bilateral lower lungs. Possible small bilateral pleural effusion. ACT 112: Negative or not required by law. The above report was generated using voice recognition software. It may contain grammatical, syntax o r spelling errors. Electronically signed by: Blanca Aguirre DO 08/08/2020 10:33 AM
--- NOTE | 2020-08-08 11:10 | Pharmacy Report ---
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 Media Sales Consultant wishes to continued Tobra with the Zosyn at this time given slow response to abx therapy. Planned treatment duration 10 days at this time. Plan Tobramycin * Receiving 380mg (~7mg/kg) IV Q 12 hrs * Trough level was obtained this AM prior to the 4th dose. Trough = 0.7 mcg/mL. For extended-interval dosing trough should ideally be 0.3 or undetectable. Will change dose to 380mg Q 18 hrs as a result. * Goal peak 8-10x VINICIUS or infecting organism when using extended interval dosing method * Goal trough: ideally undetectable but less than 0.5 may also be acceptable * Will recheck trough level w/ 3rd dose of new regimen Zosyn * eCrCl > 20, although BMI less than 35 will utilize the higher dose regimen due to critical illness, pulm infxn and multi-drug resistant ps aeruginosa history * continue 4.5gm ext-infusion Q 8 hrs Pharmacy will continue to follow and will adjust dose/frequency as necessary. Thank you.
[2020-08-08 12:03] LABS: Alanine Aminotransferase 146 U/L (12-78); Albumin Level 2.7 gm/dl (3.4-5.0); Alkaline Phosphatase 135 U/L (45-117); Aspartate Aminotransferase 98 U/L (15-37); Bilirubin,Total 0.3 mg/dl (0.2-1); Total Protein 6.3 gm/dl (6.4-8.2)
[2020-08-08 13:21] LABS: EBV Virus Capsid Ag IgG Ab >750.00 U/mL
[2020-08-08 14:13] LABS: Bilirubin Direct < 0.1 mg/dl (0-0.2)
[2020-08-08] MEDS: D5W AND LACTATED RINGERS 1,000 ML IV SCH (15:55)
--- NOTE | 2020-08-08 19:51 | Hospitalist Progress Note ---
Date of Service August 08, 2020 Assessment & Plan (1) Sepsis: Presented with fevers, acute on chronic respiratory failure with hypoxemia, tachycardia, tachypnea, thrombocytopenia and transaminitis. 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 hepatitis panel negative for A, B, and C, CMV pending, EBV titers indicative of previous infection Follow blood cultures-NGTD Urine culture is pending but UA seems contaminated Procalcitonin is negative Follow CBC, CMP MRSA is negative-vancomycin discontinued Continue supplemental O2 and wean off as tolerated No need for vasopressors at this point but did receive IV albumin for hypotension on the evening of 08/07 Continue maintenance IV fluids Follow CXR (2) Acute on chronic respiratory failure with hypoxemia: Ongoing management for pneumonia as above, with acute worsening on AM of 08/07 requiring urgent bronchoscopy for suctioning of massive amounts of sputum and mucus plugging from left mainstem bronchus Continue acetylcysteine nebulizers twice daily Continue budesonide inhaler twice daily, but discontinued hypertonic saline nebulizers Continue tobramycin inhaled Wean back to baseline oxygen levels as needed (3) Pneumonia: As above (4) Quadriplegic cerebral palsy: Continue supportive treatment Continue clonazepam as needed, baclofen (5) Seizure disorder: Continue valproic acid although valproic acid level here was elevated and with elevated LFTs, valproic acid was placed on hold Now restarted valproic acid at a lower dose Continue zonisamide (6) Thrombocytopenia: Platelets were severely low at 28,000 and now improved to 42k Peripheral smear without evidence of malignancy, no cytoplasmic inclusion bodies that would be consistent with anaplasmosis Fibrinogen and FDP were reassuring as it relates to DIC. Likely related to sepsis HLH with normal triglycerides and ferritin Spleen is mildly enlarged Hold all antiplatelets and anticoagulation Follow CBC in the morning Check CMV-pending, EBV negative for acute infection anaplasmosis testing not likely indicated (7) Abnormal LFTs: Worsening in the 200s for AST and ALT, bilirubin is normal-today now improving Could also be secondary to sepsis CT abdomen/pelvis with normal liver and mildly enlarged spleen Right upper quadrant ultrasound performed does show normal echotexture of the liver, gallbladder is contracted and appears thick-walled and heterogenous but no shadowing gallstones are identified GI consultation appreciated Plan for HIDA scan but delayed due to worsening PULM status-could likely get this tomorrow -CMV pending, EBV, acute hepatitis panel negative as above -Consider anaplasmosis testing Follow LFTs in the morning Held valproic acid as this level was elevated and could be contributing- restarted at a lower dose (8) DVT prophylaxis: Holding on anticoagulation due to thrombocytopenia SCDs Disposition-continued stay in the ICU FEN-restarting trickle tube feeds, continue maintenance IV fluids, IV Pepcid for GI prophylaxis Admission and Anticipated Discharge Date Admission Date: August 05, 2020 Subjective Patient nonverbal. She is improved today with her oxygenation, blood pressure, chest x-ray much improved. She is off the ventilator during the day. Review of Systems Review of Systems: Unobtainable due to cognitive status Physical Exam Constitutional: + thin; no acute distress Eyes: + anicteric sclerae Musculoskeletal: Extremities: + extremities abnormal to inspection (Flexion contractures bilaterally), no cyanosis and no clubbing Skin: no rashes, warm and dry Neurologic: awake Psychiatric: Orientation: alert Results & Data Results & Data ([facility]) Vital Signs (Past 12 Hours) Vital Signs Temp Pulse Pulse Resp BP Pulse Ox 08/08/20 19:00 97 H 100 08/08/20 18:30 98 H 96 08/08/20 18:23 103 H 115/80 96 08/08/20 18:00 37.0 C 93 H 96 08/08/20 17:30 37.2 C 103 H 91 08/08/20 17:23 37.3 C 102 H 119/68 90 08/08/20 17:00 37.2 C 111 H 97 08/08/20 16:30 37.0 C 94 H 92 08/08/20 16:23 37.0 C 88 112/68 92 08/08/20 16:00 37.0 C 92 H 93 08/08/20 15:30 37.0 C 86 92 08/08/20 15:23 37.0 C 94 H 121/69 94 08/08/20 15:05 101 H 28 H 97 08/08/20 15:00 36.9 C 82 100 08/08/20 14:30 36.7 C 80 99 08/08/20 14:23 36.7 C 79 131/76 100 08/08/20 14:00 36.5 C 76 94 08/08/20 13:30 36.5 C 81 95 08/08/20 13:24 36.8 C 92 H 105/82 85 L 08/08/20 13:00 36.9 C 82 98 08/08/20 12:30 36.9 C 79 08/08/20 12:24 36.9 C 83 118/58 L 98 08/08/20 12:00 36.9 C 91 H 96 08/08/20 11:30 36.9 C 100 H 99 08/08/20 11:00 36.7 C 72 98 08/08/20 10:30 36.7 C 60 99 08/08/20 10:23 36.7 C 70 94/50 L 98 08/08/20 10:00 36.8 C 77 97 08/08/20 09:30 36.7 C 83 97 08/08/20 09:23 36.8 C 81 100/62 96 08/08/20 09:00 36.9 C 87 96 08/08/20 08:30 36.8 C 95 H 98 08/08/20 08:23 36.8 C 93 H 106/59 L 97 08/08/20 08:00 36.8 C 98 H 95 Laboratory Results 08/08/20 08/08/20 08/08/20 Range/Units 11:55 05:41 04:17 WBC (4.8-10.8) K/uL RBC (4.2-5.4) M/uL Hgb (12.0-16.0) g/dL Hct (37-47) % MCV (80-100) fL MCH (25-34) pg MCHC (32-36) g/dL RDW Std Deviation (36.4-46.3) fL RDW Coeff of Flaquito (11.5-14.5) % Plt Count (130-400) K/uL MPV (7.4-10.4) fL Immature Gran % (Auto) % Neut % (Auto) % Lymph % (Auto) % Woods % (Auto) % Eos % (Auto) % Baso % (Auto) % Neut # (Auto) (1.4-6.5) K/uL Lymph # (Auto) (1.2-3.4) K/uL Woods # (Auto) (0.11-0.59) K/uL Eos # (Auto) (0-0.5) K/uL Baso # (Auto) (0-0.2) K/uL Immature Gran # (Auto) (0.00-0.02) K/uL Toxic Vacuolation Sodium (136-145) mmol/L Potassium (3.5-5.1) mmol/L Chloride (98-107) mmol/L Carbon Dioxide (21-32) mmol/L Anion Gap (3-11) BUN (7-18) mg/dl Creatinine (0.6-1.2) mg/dl Est Cr Clr Drug Dosing ml/min Est GFR ( Amer) ml/min Est GFR (Non-Af Amer) ml/min BUN/Creatinine Ratio (10-20) Glucose (70-99) mg/dl POC Glucose 82 107 H (70-99) mg/dl Calcium (8.5-10.1) mg/dl Phosphorus (2.5-4.9) mg/dl Magnesium (1.8-2.4) mg/dl Total Bilirubin 0.3 (0.2-1) mg/dl Direct Bilirubin < 0.1 D (0-0.2) mg/dl AST 98 H (15-37) U/L ALT 146 H (12-78) U/L Alkaline Phosphatase 135 H (45-117) U/L Total Protein 6.3 L (6.4-8.2) gm/dl Albumin 2.7 L (3.4-5.0) gm/dl Specimen Hemolysis Tobramycin Trough (0-2) mcg/ml CMV IgM Ab CMV IgG Ab/TORCH EBV Capsid Ag IgG Ab U/mL EBV Capsid Ag IgM Ab U/mL EBV Nuclear Antigen Ab U/mL EBV Antibody Interp Hepatitis A IgM Ab (NON-REACTIVE) Hep B Core IgM Ab (NON-REACTIVE) 08/08/20 08/08/20 08/08/20 Range/Units 04:17 04:17 01:35 WBC 2.61 L (4.8-10.8) K/uL RBC 2.95 L (4.2-5.4) M/uL Hgb 9.8 L (12.0-16.0) g/dL Hct 28.3 L (37-47) % MCV 95.9 (80-100) fL MCH 33.2 (25-34) pg MCHC 34.6 (32-36) g/dL RDW Std Deviation 44.2 (36.4-46.3) fL RDW Coeff of Flaquito 12.7 (11.5-14.5) % Plt Count 42 L (130-400) K/uL MPV 11.2 H (7.4-10.4) fL Immature Gran % (Auto) 0.4 % Neut % (Auto) 51.3 % Lymph % (Auto) 33.7 % Woods % (Auto) 14.6 % Eos % (Auto) 0.0 % Baso % (Auto) 0.0 % Neut # (Auto) 1.34 L (1.4-6.5) K/uL Lymph # (Auto) 0.88 L (1.2-3.4) K/uL Woods # (Auto) 0.38 (0.11-0.59) K/uL Eos # (Auto) 0.00 (0-0.5) K/uL Baso # (Auto) 0.00 (0-0.2) K/uL Immature Gran # (Auto) 0.01 (0.00-0.02) K/uL Toxic Vacuolation 1+ Sodium 141 (136-145) mmol/L Potassium 3.4 L (3.5-5.1) mmol/L Chloride 114 H (98-107) mmol/L Carbon Dioxide 24 (21-32) mmol/L Anion Gap 3.0 (3-11) BUN 5 L (7-18) mg/dl Creatinine 0.48 L (0.6-1.2) mg/dl Est Cr Clr Drug Dosing 154.5 ml/min Est GFR ( Amer) > 150.0 ml/min Est GFR (Non-Af Amer) 138.3 ml/min BUN/Creatinine Ratio 9.8 L (10-20) Glucose 118 H (70-99) mg/dl POC Glucose (70-99) mg/dl Calcium 8.5 (8.5-10.1) mg/dl Phosphorus 4.0 D (2.5-4.9) mg/dl Magnesium 2.2 (1.8-2.4) mg/dl Total Bilirubin (0.2-1) mg/dl Direct Bilirubin (0-0.2) mg/dl AST (15-37) U/L ALT (12-78) U/L Alkaline Phosphatase (45-117) U/L Total Protein (6.4-8.2) gm/dl Albumin (3.4-5.0) gm/dl Specimen Hemolysis Tobramycin Trough 0.70 (0-2) mcg/ml CMV IgM Ab CMV IgG Ab/TORCH EBV Capsid Ag IgG Ab U/mL EBV Capsid Ag IgM Ab U/mL EBV Nuclear Antigen Ab U/mL EBV Antibody Interp Hepatitis A IgM Ab (NON-REACTIVE) Hep B Core IgM Ab (NON-REACTIVE) 08/07/20 08/07/20 08/07/20 Range/Units 22:55 05:12 05:12 WBC (4.8-10.8) K/uL RBC (4.2-5.4) M/uL Hgb (12.0-16.0) g/dL Hct (37-47) % MCV (80-100) fL MCH (25-34) pg MCHC (32-36) g/dL RDW Std Deviation (36.4-46.3) fL RDW Coeff of Flaquito (11.5-14.5) % Plt Count (130-400) K/uL MPV (7.4-10.4) fL Immature Gran % (Auto) % Neut % (Auto) % Lymph % (Auto) % Woods % (Auto) % Eos % (Auto) % Baso % (Auto) % Neut # (Auto) (1.4-6.5) K/uL Lymph # (Auto) (1.2-3.4) K/uL Woods # (Auto) (0.11-0.59) K/uL Eos # (Auto) (0-0.5) K/uL Baso # (Auto) (0-0.2) K/uL Immature Gran # (Auto) (0.00-0.02) K/uL Toxic Vacuolation Sodium (136-145) mmol/L Potassium (3.5-5.1) mmol/L Chloride (98-107) mmol/L Carbon Dioxide (21-32) mmol/L Anion Gap (3-11) BUN (7-18) mg/dl Creatinine (0.6-1.2) mg/dl Est Cr Clr Drug Dosing ml/min Est GFR ( Amer) ml/min Est GFR (Non-Af Amer) ml/min BUN/Creatinine Ratio (10-20) Glucose (70-99) mg/dl POC Glucose 100 H (70-99) mg/dl Calcium (8.5-10.1) mg/dl Phosphorus (2.5-4.9) mg/dl Magnesium (1.8-2.4) mg/dl Total Bilirubin (0.2-1) mg/dl Direct Bilirubin (0-0.2) mg/dl AST (15-37) U/L ALT (12-78) U/L Alkaline Phosphatase (45-117) U/L Total Protein (6.4-8.2) gm/dl Albumin (3.4-5.0) gm/dl Specimen Hemolysis Tobramycin Trough (0-2) mcg/ml CMV IgM Ab Cancelled CMV IgG Ab/TORCH Cancelled EBV Capsid Ag IgG Ab >750.00 H U/mL EBV Capsid Ag IgM Ab <36.00 U/mL EBV Nuclear Antigen Ab 65.20 H U/mL EBV Antibody Interp SEE NOTE Hepatitis A IgM Ab NON-REACTIVE (NON-REACTIVE) Hep B Core IgM Ab NON-REACTIVE (NON-REACTIVE) Diagnostic Findings CXR image personally reviewed by me and agree with the following report: Chest X-Ray 08/08/20 07:00 XR chest 1V portable CLINICAL HISTORY: resp failure COMPARISON STUDY: August 07, 2020 FINDINGS: No pneumothorax. Minimal blunting of bilateral costophrenic angles are seen and could represent small bilateral pleural effusion. Small atelectasis are seen in bilateral bases, stable on the right and significantly improved on the left. Cardiomediastinal silhouette is within normal limits in size. Pulmonary vasculature is indistinct.. However evaluation is limited due to multiple overlying tubes and wires. Osseous structures: unremarkable Stable position of tracheostomy tube. IMPRESSION: 1. Significant interval improvement of opacity at the left hemithorax. 2. Small atelectasis at bilateral lower lungs. Possible small bilateral pleural effusion. ACT 112: Negative or not required by law. The above report was generated using voice recognition software. It may contain grammatical, syntax or spelling errors. Electronically signed by: Blanca Aguirre DO 08/08/2020 10:33 AM PG Care Time/CCT Total # of Minutes Spent Total Time Spent with Patient: Total time spent is greater than 50% in coordination of care (as documented) at patient's floor/unit and/or counseling patient: Coding Level of Care Code 13367 Subseq Hosp Care Lvl 1 Diagnoses Sepsis A41.9 Acute on chronic respiratory failure with hypoxemia J96.21 Pneumonia J18.9 Laterality: left Lung location: lower lobe of lung Pneumonia type: due to unspecified organism Quadriplegic cerebral palsy G80.8 Seizure disorder G40.909 Thrombocytopenia D69.6 Abnormal LFTs R94.5 DVT prophylaxis Z29.9 (1) Pneumonia Laterality: left Lung location: lower lobe of lung Pneumonia type: due to unspecified organism Qualified Code(s): J18.9 - Pneumonia, unspecified organism
[2020-08-08] MEDS: guaiFENesin 600 MG TABCR PO SCH (20:39)
[2020-08-09] MEDS: ALBUT/IPRATROP 3MG/0.5MG NEB 3 ML VIAL NEB SCH ×7 (00:12→22:27)
[2020-08-09] MEDS: PIPERACILLIN/TAZOBACTAM 4.5 GM in DEXTROSE 5% 100 ML IV SCH ×4 (00:16→22:59)
[2020-08-09 05:17] LABS: Hematocrit (blood only) 31.3 % (37-47); Hemoglobin 10.4 g/dL (12.0-16.0); Mean Corpuscular Hemoglobin 32.8 pg (25-34); Mean Corpuscular Hgb Conc 33.2 g/dL (32-36); Mean Corpuscular Volume 98.7 fL (80-100); Mean Platelet Volume 9.2 fL (7.4-10.4); Platelet Count 70 K/uL (130-400); RDW Coefficient of Variation 12.7 % (11.5-14.5); RDW Standard Deviation 45.9 fL (36.4-46.3); Red Blood Count 3.17 M/uL (4.2-5.4); White Blood Count 3.21 K/uL (4.8-10.8)
[2020-08-09] MEDS: ACETAMINOPHEN SUSP 325 MG/10.15 ML UDC PO PRN ×2 (05:35→16:02)
[2020-08-09 05:37] LABS: Alanine Aminotransferase 113 U/L (12-78); Albumin Level 2.9 gm/dl (3.4-5.0); Aspartate Aminotransferase 60 U/L (15-37); Bilirubin Direct 0.1 mg/dl (0-0.2); Blood Urea Nitrogen 3 mg/dl (7-18); Calcium 8.6 mg/dl (8.5-10.1); Carbon Dioxide 23 mmol/L (21-32); Chloride 109 mmol/L (98-107); Creatinine Clr Calc Pharmacy 179.2 ml/min; Est GFR (African American) > 150.0 ml/min; Est GFR (Non-African American) 144.5 ml/min; Glucose 89 mg/dl (70-99); Magnesium 2.1 mg/dl (1.8-2.4); Potassium 3.6 mmol/L (3.5-5.1); Sodium 140 mmol/L (136-145)
[2020-08-09 05:52] LABS: Basophils # (auto) 0.01 K/uL (0-0.2); Basophils % (auto) 0.3 %; Eosinophils # (auto) 0.01 K/uL (0-0.5); Eosinophils % (auto) 0.3 %; Immature Granulocytes # (auto) 0.01 K/uL (0.00-0.02); Immature Granulocytes % (auto) 0.3 %; Lymphocytes # (auto) 0.98 K/uL (1.2-3.4); Lymphocytes % (auto) 30.5 %; Monocytes # (auto) 0.45 K/uL (0.11-0.59); Neutrophils # (auto) 1.75 K/uL (1.4-6.5); Neutrophils % (auto) 54.6 %; Toxic Granulation 1+
[2020-08-09] MEDS ORDERED: POTASSIUM CHLORIDE 20 MEQ/15 ML UDC PO STA (05:52)
[2020-08-09 06:01] LABS: Alkaline Phosphatase 150 U/L (45-117); Bilirubin,Total 0.4 mg/dl (0.2-1); Phosphorus 3.9 mg/dl (2.5-4.9); Total Protein 6.9 gm/dl (6.4-8.2)
[2020-08-09] MEDS: D5W AND LACTATED RINGERS 1,000 ML IV SCH ×2 (06:45→09:01)
[2020-08-09] MEDS: TUBE FEEDING WATER FLUSH NG SCH ×4 (06:54→19:44)
--- NOTE | 2020-08-09 07:23 | XRay Report ---
XR chest 1V portable CLINICAL HISTORY: Respiratory failure. COMPARISON STUDY: Chest CT August 05, 2020. Chest radiograph August 08, 2020. FINDINGS: Tracheostomy tube is in place. Left basilar consolidation has slightly increased. Mild righ t basilar opacity is unchanged. There is no pneumothorax. Left lung volume loss is unchanged. No defi nite pleural effusion is noted. There is no evidence for pulmonary edema. Cardiac size is normal. IMPRESSION: 1. Left basilar consolidation, slightly increased since prior exam. 2. No significant change in mild right basilar opacity. ACT 112: Negative or not required by law. Electronically signed by: Otto Pearce M.D. 08/09/2020 7:21 AM
[2020-08-09] MEDS: BUDESONIDE 0.5 MG/2 ML VIAL (PULMICORT) INH SCH ×2 (07:32→19:08)
[2020-08-09] MEDS: FAMOTIDINE 20 MG in SYRINGE 3 ML IV SCH ×2 (09:00→19:41)
[2020-08-09] MEDS: BACLOFEN 20 MG TAB PEG SCH ×3 (09:02→19:44)
[2020-08-09] MEDS: VALPROIC ACID 250 MG/5 ML PO SCH ×3 (09:03→19:44)
[2020-08-09] MEDS: ZONISAMIDE 100 MG PO SCH ×2 (09:04→19:42)
[2020-08-09] MEDS: guaiFENesin 600 MG TABCR PO SCH (10:35)
--- NOTE | 2020-08-09 11:35 | Critical Care Progress Note ---
Date of Service August 09, 2020 Assessment & Plan (1) Acute on chronic respiratory failure with hypoxemia: Reason Critically Ill: 24-year-old female with chronic tracheostomy dependence who was admitted for sepsis likely pulmonary source PLAN: Neuro: Cerebral palsy -Continue reduced dose of valproic acid. Valproic acid levels appropriate. Pharmacy is assisting in management. Continue her home seizure medication otherwise. Resp: Severe left lung mucous plugging noted and she is status post bronchoscopy twice 08/07/2020. Chest x-ray much improved. Continue Mucinex 1200 mg twice daily. Continue albuterol nebs and vest percussive therapy 4 times a day. Hypertonic saline was discontinued as the patient's mother notes that she seems to be worse with hypertonic saline. Continue tobramycin IV and Zosyn IV for pseudomonal pneumonia. CV: No significant issues at present. Her normal blood pressures are around 90/60. Fluids/Renal: Continue tube feeds. ID: Sepsis likely secondary to bronchopneumonia. Sputum culture is notable for 2 different pseudomonal organisms that are multidrug resistant. Continue tobramycin IV and Zosyn IV. Pharmacy assisting with dosing. Contact precautions. GI/Nutrition: Transaminitis: Mild. Repeat LFTs today. GI consulted. Possibly related to valproic acid level being elevated. Liver ultrasound reviewed with contraction of the gallbladder. HIDA scan ordered and to be completed today. Heme: Thrombocytopenia noted along with low iron studies. Thrombocytopenia improving. Possibly sepsis mediated and anemia of chronic disease. No evidence of HL H seen as ferritin and triglycerides were within normal limits. Endocrine: ICU hyperglycemia protocol Vascular access: Peripheral IVs Code Status: DNR/DNI in event of cardiac arrest Disposition: ICU I suspect that she will be medically stable for discharge. We will touch base with the patient's mother health coordinate care. She may need a PICC line with extended course of IV antibiotics of at least 10 days. (2) Abnormal LFTs: (3) Thrombocytopenia: (4) Sepsis: (5) Multiple tracheobronchial mucus plugs: (6) Hypotension, chronic: (7) Transaminitis: Admission and Anticipated Discharge Date Admission Date: August 05, 2020 Subjective No significant issues today. Tolerated ventilation via mechanical ventilator overnight. Currently on trach collar. Unable to obtain review of systems given cerebral palsy and altered mental status. Review of Systems Review of Systems: Unobtainable due to cognitive status Physical Exam Constitutional: Chronically ill-appearing. No acute distress. Respiratory: normal respiratory effort, lungs clear to auscultation Cardiovascular: RRR, no murmur, no edema Gastrointestinal (Abdomen): normal bowel sounds, soft, nontender, no hepatosplenomegaly Musculoskeletal: Bilateral contractures noted Skin: no rashes, warm and dry Neurologic: Nonfocal. Psychiatric: Unobtainable due to chronic cerebral palsy and trach Results & Data Results & Data ([facility]) Vital Signs (Past 12 Hours) Vital Signs Temp Pulse Pulse Resp BP Pulse Ox 08/09/20 10:41 104 H 22 92 08/09/20 10:23 103 H 24 96/54 L 100 08/09/20 09:23 100 H 30 H 117/76 94 08/09/20 09:00 91 H 94 08/09/20 08:30 99.3 F 103 H 94 08/09/20 08:23 97 H 26 H 105/56 L 94 08/09/20 08:00 103 H 28 H 92 08/09/20 07:34 96 H 21 90 08/09/20 07:23 93 H 107/56 L 90 08/09/20 06:30 102 H 97 08/09/20 06:23 112 H 131/71 97 08/09/20 06:00 115 H 95 08/09/20 05:45 122 H 93 08/09/20 05:30 128 H 94 08/09/20 05:23 135 H 142/93 H 99 08/09/20 05:00 114 H 95 08/09/20 04:30 102 H 94 08/09/20 04:23 100 H 122/75 93 08/09/20 04:00 111 H 77 L 08/09/20 03:30 130 H 100 08/09/20 03:26 112 H 22 93 08/09/20 03:23 108 H 120/69 95 08/09/20 03:00 106 H 95 08/09/20 02:30 110 H 93 08/09/20 02:23 107 H 112/69 94 08/09/20 02:00 101 H 94 08/09/20 01:30 108 H 93 08/09/20 01:23 110 H 122/69 93 08/09/20 01:00 113 H 94 08/09/20 00:30 122 H 100 08/09/20 00:23 122 H 134/74 95 08/09/20 00:00 104 H 95 08/08/20 23:38 102 H Vital signs, labs and imaging reviewed Coding Level of Care Code 32217 Subseq Hosp Care [facility] 3 Diagnoses Acute on chronic respiratory failure with hypoxemia J96.21 Abnormal LFTs R94.5 Thrombocytopenia D69.6 Sepsis A41.9 Multiple tracheobronchial mucus plugs T17.800A Hypotension, chronic I95.89 Transaminitis R74.01
[2020-08-09] MEDS: guaiFENesin SUGAR FREE 200 MG/10 ML UDC PEG SCH ×4 (11:57→23:00)
[2020-08-09] MEDS ORDERED: [UNRECOGNIZED DRUG - OTHER] ONE (13:30)
--- NOTE | 2020-08-09 15:37 | Pharmacy Report ---
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 Abstractor wishes to continued Tobra with the Zosyn at this time given slow response to abx therapy - may be open to considering Cipro + Zosyn given it's less nephrotoxic/ototoxic nature and better pulm penetration. Planned treatment duration 10-14 days at this time. Plan Tobramycin * Receiving 380mg (~7mg/kg) IV Q 18 hrs * Trough level was obtained this afternoon prior to the 3rd dose of this new regimen. Trough = < 0.3 mcg/mL. For extended-interval dosing trough should ideally be 0.3 or undetectable. Will continue the same dosage. * Goal peak 8-10x VINICIUS or infecting organism when using extended interval dosing method * Goal trough: ideally undetectable but less than 0.5 may also be acceptable * Will recheck trough in 2 days if therapy to continue Zosyn * eCrCl > 20, although BMI less than 35 will utilize the higher dose regimen due to critical illness, pulm infxn and multi-drug resistant ps aeruginosa history * continue 4.5gm ext-infusion Q 8 hrs Pharmacy will continue to follow and will adjust dose/frequency as necessary. Eryn bolivar.
[2020-08-09] MEDS: DEXTROSE 5% IV SCH (16:00)
[2020-08-09] MEDS: TOBRAMYCIN SULFATE IV SCH (16:00)
--- NOTE | 2020-08-09 19:36 | Hospitalist Progress Note ---
Date of Service August 09, 2020 Assessment & Plan (1) Sepsis: Presented with fevers, acute on chronic respiratory failure with hypoxemia, tachycardia, tachypnea, thrombocytopenia and transaminitis. With pneumonia evident on imaging of the chest with extensive left lower lobe airspace opacity and moderate right lower lobe airspace opacity as well as secretions in the distal left mainstem bronchus extending into the left lower lobe bronchi Is on ventilator at nighttime and then continuously after had white out of left lung with worsening resp distress on 08/07 requiring urgent bronchoscopy for suctioning of massive amounts of sputum Now weaned back off vent during daytime, CXR much improved on 08/08. Chest x-ray on 08/09 with slight increase in left basilar opacity, but remained stable from oxygenation standpoint Appreciate copywriter/pulmonology consultation Sputum growing 2 kinds of resistant Pseudomonas-both sensitive to Zosyn Continue IV Zosyn and IV tobramycin, but pharmacy suggests possibly switching to Cipro and IV Zosyn Fevers are finally resolved after bronchoscopy on 08/07 With thrombocytopenia and elevated LFTs, consideration was made for something tickborne, such as anaplasmosis, but with her overall baseline situation, tick exposure would be very odd. And she is improving with treatment of her pneumonia hepatitis panel negative for A, B, and C, CMV pending, EBV titers indicative of previous infection Follow blood cultures-NGTD Urine culture with alpha strep, not Enterococcus, UA was contaminated with epithelial cells Procalcitonin is negative Follow CBC, CMP MRSA is negative-vancomycin discontinued early on Continue supplemental O2 and wean off as tolerated No need for vasopressors at this point but did receive IV albumin for hypotension on the evening of 08/07 DC maintenance IV fluids Follow CXR -will likely go home on IV antibiotics-will need PICC line (2) Acute on chronic respiratory failure with hypoxemia: Ongoing management for pneumonia as above, with acute worsening on AM of 08/07 requiring urgent bronchoscopy for suctioning of massive amounts of sputum and mucus plugging from left mainstem bronchus Continue acetylcysteine nebulizers twice daily Continue budesonide inhaler twice daily, but discontinued hypertonic saline nebulizers Wean back to baseline oxygen levels as needed Has Trilogy at home (3) Pneumonia: As above (4) Quadriplegic cerebral palsy: Continue supportive treatment Continue clonazepam as needed, baclofen (5) Seizure disorder: Continue valproic acid although valproic acid level here was elevated and with elevated LFTs, valproic acid was placed on hold Now restarted valproic acid at a lower dose Continue zonisamide (6) Thrombocytopenia: Platelets were severely low at 28,000 and now improved to 90k Peripheral smear without evidence of malignancy, no cytoplasmic inclusion bodies that would be consistent with anaplasmosis Fibrinogen and FDP were reassuring as it relates to DIC. Likely related to sepsis HLH ruled out with normal triglycerides and ferritin Spleen is mildly enlarged Hold all antiplatelets and anticoagulation Follow CBC in the morning Check CMV-pending, EBV negative for acute infection anaplasmosis testing not likely indicated as she is improving without any treatment for this (7) Abnormal LFTs: Peaked in the 200s for AST and ALT, bilirubin is normal-today now continues to improve Could also be secondary to sepsis CT abdomen/pelvis with normal liver and mildly enlarged spleen Right upper quadrant ultrasound performed does show normal echotexture of the liver, gallbladder is contracted and appears thick-walled and heterogenous but no shadowing gallstones are identified GI consultation appreciated Plan for HIDA scan but delayed due to worsening PULM status-scheduled for 08/10 -CMV pending, EBV, acute hepatitis panel negative as above Follow LFTs in the morning Held valproic acid as this level was elevated and could be contributing- restarted at a lower dose (8) DVT prophylaxis: Holding on anticoagulation due to thrombocytopenia SCDs Disposition-continued stay in the ICU, but improving, may be able to discharge home in the next 1 to 2 days FEN-continue continuous tube feeds, switch to bolus feeds tomorrow, discontinue maintenance IV fluids, IV Pepcid for GI prophylaxis Admission and Anticipated Discharge Date Admission Date: August 05, 2020 Subjective Patient nonverbal. Nursing reports she was on ventilator most of the night last night and then has been tolerating trach collar at 35% FiO2 throughout the day and doing well. She moved her bowels 3 times yesterday. No other acute concerns today. Her tube feeds were restarted continuously. Review of Systems Review of Systems: Unobtainable due to cognitive status Physical Exam Constitutional: + thin; no acute distress Eyes: + anicteric sclerae Musculoskeletal: Extremities: no cyanosis and no clubbing Psychiatric: Orientation: alert Results & Data Results & Data ([facility]) Vital Signs (Past 12 Hours) Vital Signs Temp Pulse Pulse Resp BP Pulse Ox 08/09/20 19:00 97 H 18 93 08/09/20 18:06 92 H 31 H 112/72 93 08/09/20 17:07 95 H 31 H 106/59 L 93 08/09/20 16:07 99 H 13 112/78 96 08/09/20 16:00 37.8 C H 101 H 25 H 95 08/09/20 15:23 98 H 35 H 113/70 93 08/09/20 15:18 99 H 21 94 08/09/20 14:23 99 H 31 H 127/78 95 08/09/20 13:24 93 H 18 112/61 96 08/09/20 12:24 102 H 24 106/72 93 08/09/20 12:00 37.2 C 107 H 37 H 94 08/09/20 11:23 98 H 29 H 100/65 95 08/09/20 10:41 104 H 22 92 08/09/20 10:23 103 H 24 96/54 L 100 08/09/20 09:23 100 H 30 H 117/76 94 08/09/20 09:00 91 H 94 08/09/20 08:30 37.4 C 103 H 94 08/09/20 08:23 97 H 26 H 105/56 L 94 08/09/20 08:00 103 H 28 H 92 Laboratory Results 08/09/20 04:50 08/09/20 04:50 PG Care Time/CCT Total # of Minutes Spent Total Time Spent with Patient: Total time spent is greater than 50% in coordination of care (as documented) at patient's floor/unit and/or counseling patient: Coding Level of Care Code 90935 Subseq Hosp Care Lvl 1 Diagnoses Sepsis A41.9 Acute on chronic respiratory failure with hypoxemia J96.21 Pneumonia J18.9 Laterality: left Lung location: lower lobe of lung Pneumonia type: due to unspecified organism Quadriplegic cerebral palsy G80.8 Seizure disorder G40.909 Thrombocytopenia D69.6 Abnormal LFTs R94.5 DVT prophylaxis Z29.9 (1) Pneumonia Laterality: left Lung location: lower lobe of lung Pneumonia type: due to unspecified organism Qualified Code(s): J18.9 - Pneumonia, unspecified organism
[2020-08-10] MEDS: ALBUT/IPRATROP 3MG/0.5MG NEB 3 ML VIAL NEB SCH ×6 (03:30→23:04)
[2020-08-10] MEDS ORDERED: MIDAZOLAM HCL 1 MG/ML 2ML VIAL ONE ×3 (03:38→04:17)
[2020-08-10] MEDS ORDERED: fentaNYL citrate 100 MCG/2 ML VIAL ONE ×2 (03:39→19:06)
[2020-08-10] MEDS ORDERED: STAT IV Infusion **Titration per Protocol STA (03:50)
[2020-08-10] MEDS: DEXMEDETOMIDINE HCL 200 MCG in SODIUM CHLORIDE 0.9% 48 ML IV SCH (04:00)
--- NOTE | 2020-08-10 04:43 | Procedure Note ---
Procedure Note Date of Service August 10, 2020 Note Emergent bronchoscopy performed due to severe hypoxia and mucous plugging. Patient was given 2 mg of IV Versed during the procedure. Continuous Precedex was also infusing. Please review the nursing charting records for further details regarding administration of sedatives. Bronchoscope was inserted via the trachea. Alannah was observed. Large amounts of secretions that were thick and white noted to be emanating from the left main stem bronchus. Scope was advanced and the secretions were aspirated out sequentially. Large mucoid impactions noted in the left upper lobe which were aspirated. The scope was then advanced the left lower lobe and secretions were aspirated as well. The scope had to be frequently withdrawn in order to clear the suction channel with saline. Minimal bleeding was noted in the left tracheobronchial tree. Scope was then advanced into the segmental regions of the right upper lobe, right middle lobe and right lower lobe. Moderate amount of secretions were aspirated from the right tracheobronchial tree. Scope was then withdrawn to the level of the alannah. Minimal bleeding was noted. The scope was then completely withdrawn. Patient tolerated the procedure well and her saturations improved substantially after the procedure. Heart rate also improved. Coding CPT Codes Pulmonary/Thoracic - Pulmonary and Thoracic: 87019 Bronchoscopy, clear airways ([id number]) [facility] Procedure Codes (Charges) Pulmonary/Thoracic Procedure 3: Pulmonary and Thoracic: 19300 Bronchoscopy, clear airways
--- NOTE | 2020-08-10 04:45 | Procedure Note ---
Procedure Note Date of Service August 10, 2020 Note BRONCHOSCOPY - Procedure: Flexible Bronchoscopy Attending/[employer] Drill Operator: Jan Rich CRNP Anesthetic/Sedation: Versed, fentanyl Indication: Mucous plug removal []Consent was signed and placed on the chart prior to procedure. Indication, risks, and benefits were explained at length. A time-out was completed verifying correct patient, procedure, site, positioning, and implant(s) or special equipment if applicable. Findings: Trachea - [] Main Alvina - [] LEFT Mainstem Bronchus: CORRINE - LLL - RIGHT Mainstem Bronchus: RUL: RIGHT Bronchus Intermedius: RML - RLL - Specimens: BAL -none Complications: NONE Impression: [] Coding
[2020-08-10] MEDS: guaiFENesin SUGAR FREE 200 MG/10 ML UDC PEG SCH ×5 (04:56→21:20)
[2020-08-10] MEDS ORDERED: ACETYLCYSTEINE 20% INHAL SOLN 4ML ***DISPENSED BY RESP. INH SCH (05:15)
[2020-08-10 05:22] LABS: Hematocrit (blood only) 35.2 % (37-47); Hemoglobin 12.1 g/dL (12.0-16.0); Mean Corpuscular Hemoglobin 33.4 pg (25-34); Mean Corpuscular Hgb Conc 34.4 g/dL (32-36); Mean Corpuscular Volume 97.2 fL (80-100); Mean Platelet Volume 8.6 fL (7.4-10.4); Platelet Count 129 K/uL (130-400); RDW Coefficient of Variation 12.9 % (11.5-14.5); RDW Standard Deviation 45.7 fL (36.4-46.3); Red Blood Count 3.62 M/uL (4.2-5.4); White Blood Count 6.21 K/uL (4.8-10.8)
[2020-08-10 05:29] LABS: BUN Creatinine Ratio 8.5 (10-20); Blood Urea Nitrogen 5 mg/dl (7-18); Calcium 9.2 mg/dl (8.5-10.1); Carbon Dioxide 23 mmol/L (21-32); Chloride 105 mmol/L (98-107); Creatinine Clr Calc Pharmacy 130.8 ml/min; Est GFR (African American) > 150.0 ml/min; Est GFR (Non-African American) 132.2 ml/min; Glucose 103 mg/dl (70-99); Magnesium 2.3 mg/dl (1.8-2.4); Sodium 139 mmol/L (136-145)
[2020-08-10] MEDS ORDERED: MIDAZOLAM HCL 5 MG/ML VIAL IV STA ×2 (05:42→05:43)
[2020-08-10] MEDS ORDERED: fentaNYL citrate 100 MCG/2 ML VIAL IV STA ×2 (05:42→22:10)
[2020-08-10 05:45] LABS: Basophils # (auto) 0.01 K/uL (0-0.2); Basophils % (auto) 0.2 %; Eosinophils # (auto) 0.03 K/uL (0-0.5); Eosinophils % (auto) 0.5 %; Immature Granulocytes # (auto) 0.06 K/uL (0.00-0.02); Lymphocytes # (auto) 1.19 K/uL (1.2-3.4); Lymphocytes % (auto) 19.2 %; Monocytes % (auto) 11.3 %; Neutrophils # (auto) 4.22 K/uL (1.4-6.5); Neutrophils % (auto) 67.8 %; RBC Morphology Unremarkable
[2020-08-10 06:11] LABS: Phosphorus 5.8 mg/dl (2.5-4.9)
[2020-08-10] MEDS: TUBE FEEDING WATER FLUSH NG SCH ×4 (06:13→20:44)
[2020-08-10] MEDS: BUDESONIDE 0.5 MG/2 ML VIAL (PULMICORT) INH SCH ×2 (07:20→19:50)
[2020-08-10] MEDS: ACETYLCYSTEINE 20% INHAL SOLN 4ML ***DISPENSED BY RESP. INH SCH ×3 (07:21→19:49)
--- NOTE | 2020-08-10 07:24 | XRay Report ---
XR chest 1V portable CLINICAL HISTORY: Respiratory failure. COMPARISON STUDY: Chest radiograph August 09, 2020. FINDINGS: Tracheostomy tube is in place. There is no pneumothorax. No definite pleural effusion is no brooks. Left lung airspace opacity has significantly increased with left lung volume loss. There is elev ation of the left hemidiaphragm. Leftward mediastinal shift is noted due to volume loss. IMPRESSION: Increase in extensive left lung airspace opacity with volume loss. This could be due to mucous plugging. The findings may reflect pneumonia or atelectasis. The findings will be called/faxed to the ordering provider at time of dictation. ACT 112: Negative or not required by law. Electronically signed by: Otto Pearce M.D. 08/10/2020 7:23 AM
[2020-08-10] MEDS: PIPERACILLIN/TAZOBACTAM 4.5 GM in DEXTROSE 5% 100 ML IV SCH ×2 (08:41→17:13)
[2020-08-10] MEDS: DEXTROSE 5% IV SCH (08:41)
[2020-08-10] MEDS: TOBRAMYCIN SULFATE IV SCH (08:41)
[2020-08-10] MEDS: ZONISAMIDE 100 MG PO SCH ×2 (08:42→21:10)
[2020-08-10] MEDS: FAMOTIDINE 20 MG in SYRINGE 3 ML IV SCH (08:42)
[2020-08-10] MEDS: BACLOFEN 20 MG TAB PEG SCH ×3 (08:43→21:10)
[2020-08-10] MEDS: VALPROIC ACID 250 MG/5 ML PO SCH ×3 (08:44→21:11)
--- NOTE | 2020-08-10 11:05 | Critical Care Progress Note ---
Date of Service August 10, 2020 Assessment & Plan (1) Acute on chronic respiratory failure with hypoxemia: Reason Critically Ill: 24-year-old female with chronic tracheostomy dependence who was admitted for sepsis likely pulmonary source PLAN: Neuro: Cerebral palsy -Continue reduced dose of valproic acid. Valproic acid levels appropriate. Pharmacy is assisting in management. Continue her home seizure medication otherwise. Resp: Severe left lung mucous plugging noted and she is status post bronchoscopy twice 08/07/2020. Bronchoscopy performed this morning at 4 AM. Continue Mucinex 1200 mg twice daily. Continue albuterol nebs and vest percussive therapy 4 times a day. Continue Mucomyst 3 times daily. Continue tobramycin IV and Zosyn IV for pseudomonal pneumonia. CV: Mildly hypotensive while on Precedex. Precedex infusion was stopped her blood pressure has improved. Her normal blood pressures are around 90/60. Fluids/Renal: Continue tube feeds. ID: Sepsis likely secondary to bronchopneumonia. Sputum culture is notable for 2 different pseudomonal organisms that are multidrug resistant. Continue tobramycin IV and Zosyn IV. Pharmacy assisting with dosing. Continue isolation contact precautions. GI/Nutrition: Transaminitis: Mild. LFTs improving. GI consulted. Possibly related to valproic acid level being elevated. Liver ultrasound reviewed with contraction of the gallbladder. HIDA scan should be completed today. Heme: Patient with low iron levels. We will hold on iron supplementation at this time given acute infection. Thrombocytopenia is resolving. Possibly sepsis mediated and anemia of chronic disease. No evidence of HLH seen as ferritin and triglycerides were within normal limits. Endocrine: ICU hyperglycemia protocol Vascular access: Peripheral IVs Code Status: DNR/DNI in event of cardiac arrest Disposition: ICU She will likely remain in the hospital into at least early next week. (2) Abnormal LFTs: (3) Thrombocytopenia: (4) Sepsis: (5) Multiple tracheobronchial mucus plugs: (6) Hypotension, chronic: (7) Transaminitis: Admission and Anticipated Discharge Date Admission Date: August 05, 2020 Subjective Patient is nonverbal. Very significant pain from the left lung overnight. He came in to perform an emergent bronchoscopy at 4 AM given hypoxia. She is currently doing much better. Otherwise review of systems is unobtainable given her underlying condition. Physical Exam Constitutional: Chronically ill-appearing. No acute distress. Respiratory: normal respiratory effort, lungs clear to auscultation Cardiovascular: RRR, no murmur, no edema Gastrointestinal (Abdomen): normal bowel sounds, soft, nontender, no hepatosplenomegaly Musculoskeletal: Bilateral contractures noted Skin: no rashes, warm and dry Neurologic: Nonfocal. Psychiatric: Unobtainable due to chronic cerebral palsy and trach Results & Data Results & Data ([facility]) Vital Signs (Past 12 Hours) Vital Signs Temp Pulse Pulse Resp BP Pulse Ox 08/10/20 10:06 89 85/49 L 95 08/10/20 10:00 90 96 08/10/20 09:07 101 H 97/66 L 97 08/10/20 08:58 85 88/51 L 95 08/10/20 08:00 97.7 F 86 90 08/10/20 07:53 85 28 H 91 08/10/20 07:08 100 H 99/74 L 98 08/10/20 06:07 87 87/61 L 99 08/10/20 06:06 88 77/51 L 95 08/10/20 06:00 88 95 08/10/20 05:06 107 H 94/63 L 98 08/10/20 05:00 125 H 98 08/10/20 04:30 120 H 29 H 75 L 08/10/20 04:06 123 H 25 H 103/71 87 L 08/10/20 04:00 128 H 36 H 87 L 08/10/20 03:06 96 H 32 H 103/69 91 08/10/20 03:00 90 31 H 91 08/10/20 02:06 94 H 19 96/69 L 93 08/10/20 02:00 94 H 34 H 93 08/10/20 01:07 83 31 H 101/73 90 08/10/20 01:00 88 34 H 95 08/10/20 00:06 90 30 H 99/73 L 92 08/10/20 00:00 87 30 H 93 08/09/20 23:50 95 H 94 08/09/20 23:39 93 H 08/09/20 23:07 92 H 26 H 102/77 92 vital signs, labs and imaging reviewed Coding Level of Care Code 65313 Subseq Hosp Care Lvl 3 Diagnoses Acute on chronic respiratory failure with hypoxemia J96.21 Abnormal LFTs R94.5 Thrombocytopenia D69.6 Sepsis A41.9 Multiple tracheobronchial mucus plugs T17.800A Hypotension, chronic I95.89 Transaminitis R74.01
[2020-08-10 13:31] LABS: CMV IgG Antibody <0.60 U/mL; CMV IgM Antibody <30.00 AU/mL
--- NOTE | 2020-08-10 17:02 | Nuclear Medicine Report ---
NUCLEAR MEDICINE HEPATOBILIARY SCAN HISTORY: elevated LFTs COMPARISON: Abdominal ultrasound 08/06/2020. TECHNIQUE: Immediately following the intravenous administration of 5.5 mCi Tc-99m Choletec, dynamic a nterior abdominal imaging was performed. FINDINGS: Uniform hepatic tracer accumulation is shown. Prompt intrahepatic biliary excretion is seen. The gall bladder, common bile duct, and small bowel are all visualized by 15 minutes. This appearance represen ts the normal sequence of biliary excretion. IMPRESSION: 1. No evidence for cystic duct obstruction. ACT 112: Negative or not required by law. Electronically signed by: Edmund Dorman M.D. 08/10/2020 5:00 PM
--- NOTE | 2020-08-10 18:48 | Hospitalist Progress Note ---
Date of Service August 10, 2020 Assessment & Plan (1) Sepsis: Presented with fevers, acute on chronic respiratory failure with hypoxemia, tachycardia, tachypnea, thrombocytopenia and transaminitis. With pneumonia evident on imaging of the chest CT upon admission with extensive left lower lobe airspace opacity and moderate right lower lobe airspace opacity as well as secretions in the distal left mainstem bronchus extending into the left lower lobe bronchi Continues on ventilator at nighttime and trach collar during the day, but has had recurrent issues with white out of left lung on chest x-ray with worsening resp distress on 08/07 requiring urgent bronchoscopy for suctioning of massive amounts of sputum. The same thing happened again on the morning of 08/10 and the evening of 08/10. Bronchoscopy as needed for lavage of excessive secretions Appreciate clinical field specialist/pulmonology consultation Sputum growing 2 kinds of resistant Pseudomonas-both sensitive to Zosyn Continue IV Zosyn and IV tobramycin Fevers recurrent in 08/10 With thrombocytopenia and elevated LFTs, but she is improving with treatment of her pneumonia hepatitis panel negative for A, B, and C, CMV negative, EBV titers indicative of previous infection Follow blood cultures-NGTD Urine culture with alpha strep, not Enterococcus, UA was contaminated with epithelial cells Procalcitonin is negative Follow CBC, CMP MRSA is negative-vancomycin discontinued early on Continue supplemental O2 and wean off as tolerated No need for vasopressors at this point but did receive IV albumin for hypotension on the evening of 08/07 Follow CXR -will likely go home on IV antibiotics-will need PICC line eventually (2) Acute on chronic respiratory failure with hypoxemia: Ongoing management for pneumonia as above, with intermittent requirement of ventilator Continue acetylcysteine nebulizers twice daily Continue budesonide inhaler twice daily, but discontinued hypertonic saline nebulizers due to causing excessive secretions Wean back to baseline oxygen levels as needed Has Trilogy ventilator at home (3) Pneumonia: As above (4) Quadriplegic cerebral palsy: Continue supportive treatment Continue clonazepam as needed, baclofen (5) Seizure disorder: Continue valproic acid although valproic acid level here was elevated and with elevated LFTs, valproic acid was placed on hold Now restarted valproic acid at a lower dose Continue zonisamide (6) Thrombocytopenia: Platelets were severely low at 28,000 and now improved to 2 129 Peripheral smear without evidence of malignancy, no cytoplasmic inclusion bodies that would be consistent with anaplasmosis Fibrinogen and FDP were reassuring as it relates to DIC. Likely related to sepsis and is improving now with treatment of infection HLH ruled out with normal triglycerides and ferritin Spleen is mildly enlarged Continue to hold all antiplatelets and anticoagulation Follow CBC in the morning CMV negative, EBV negative for acute infection anaplasmosis testing not likely indicated as she is improving without any treatment for this (7) Abnormal LFTs: Peaked in the 200s for AST and ALT, bilirubin is normal-then improving Likely secondary to sepsis CT abdomen/pelvis with normal liver and mildly enlarged spleen Right upper quadrant ultrasound performed does show normal echotexture of the liver, gallbladder is contracted and appears thick-walled and heterogenous but no shadowing gallstones are identified GI consultation appreciated HIDA scan negative -CMV negative, EBV, acute hepatitis panel negative as above Follow LFTs in the morning Held valproic acid as this level was elevated and could be contributing- restarted at a lower dose (8) DVT prophylaxis: Holding on anticoagulation due to thrombocytopenia which is now improving, consider adding on Lovenox tomorrow SCDs Disposition-continued stay in the ICU, prognosis guarded FEN-continue continuous tube feeds, switch to bolus feeds when more stable and off ventilator, IV Pepcid for GI prophylaxis Admission and Anticipated Discharge Date Admission Date: August 05, 2020 Subjective Patient remains nonverbal. She had another urgent bronchoscopy at 4:00 this morning again for large amounts of sputum in the left lung. This evening, she was about to be bronched again for recurrent worsening hypoxia, tachycardia, and recurrent fevers. I discussed her care with the clinical field specialist. Review of Systems Review of Systems: Unobtainable due to cognitive status Physical Exam Constitutional: + thin; no acute distress Neurologic: awake Results & Data Results & Data ([facility]) Vital Signs (Past 12 Hours) Vital Signs Temp Pulse Pulse Resp BP Pulse Ox 08/10/20 18:00 120 H 22 91 08/10/20 17:20 112 H 22 109/78 92 08/10/20 17:10 119 H 24 91 08/10/20 15:06 107 H 27 H 106/59 L 93 08/10/20 14:06 126 H 24 107/71 90 08/10/20 13:41 108 H 29 H 92 08/10/20 13:06 93 H 32 H 85/53 L 92 08/10/20 12:06 37.9 C H 108 H 91/67 L 96 08/10/20 11:15 30 H 97 08/10/20 11:06 99 H 101/65 97 08/10/20 10:06 89 85/49 L 95 08/10/20 10:00 90 96 08/10/20 09:07 101 H 97/66 L 97 08/10/20 08:58 85 88/51 L 95 08/10/20 08:00 36.5 C 86 90 08/10/20 07:53 85 28 H 91 08/10/20 07:08 100 H 99/74 L 98 Laboratory Results 08/10/20 08/10/20 08/07/20 Range/Units 04:59 04:59 05:12 WBC 6.21 (4.8-10.8) K/uL RBC 3.62 L (4.2-5.4) M/uL Hgb 12.1 (12.0-16.0) g/dL Hct 35.2 L (37-47) % MCV 97.2 (80-100) fL MCH 33.4 (25-34) pg MCHC 34.4 (32-36) g/dL RDW Std Deviation 45.7 (36.4-46.3) fL RDW Coeff of [place] 12.9 (11.5-14.5) % Plt Count 129 L D (130-400) K/uL MPV 8.6 (7.4-10.4) fL Immature Gran % (Auto) 1.0 % Neut % (Auto) 67.8 % Lymph % (Auto) 19.2 % [place] % (Auto) 11.3 % Eos % (Auto) 0.5 % Baso % (Auto) 0.2 % Neut # (Auto) 4.22 (1.4-6.5) K/uL Lymph # (Auto) 1.19 L (1.2-3.4) K/uL [place] # (Auto) 0.70 H (0.11-0.59) K/uL Eos # (Auto) 0.03 (0-0.5) K/uL Baso # (Auto) 0.01 (0-0.2) K/uL Immature Gran # (Auto) 0.06 H (0.00-0.02) K/uL RBC Morphology Unremarkable Sodium 139 (136-145) mmol/L Potassium 4.0 (3.5-5.1) mmol/L Chloride 105 (98-107) mmol/L Carbon Dioxide 23 (21-32) mmol/L Anion Gap 11.0 (3-11) BUN 5 L (7-18) mg/dl Creatinine 0.55 L (0.6-1.2) mg/dl Est Cr Clr Drug Dosing 130.8 ml/min Est GFR ( Amer) > 150.0 ml/min Est GFR (Non-Af Amer) 132.2 ml/min BUN/Creatinine Ratio 8.5 L (10-20) Glucose 103 H (70-99) mg/dl Calcium 9.2 (8.5-10.1) mg/dl Phosphorus 5.8 H D (2.5-4.9) mg/dl Magnesium 2.3 (1.8-2.4) mg/dl CMV IgM Ab <30.00 AU/mL CMV IgG Ab/TORCH <0.60 U/mL PG Care Time/CCT Total # of Minutes Spent Total Time Spent with Patient: Total time spent is greater than 50% in coordination of care (as documented) at patient's floor/unit and/or counseling patient: Coding Level of Care Code 52127 Subseq Hosp Care Lvl 1 Diagnoses Sepsis A41.9 Acute on chronic respiratory failure with hypoxemia J96.21 Pneumonia J18.9 Laterality: left Lung location: lower lobe of lung Pneumonia type: due to unspecified organism Quadriplegic cerebral palsy G80.8 Seizure disorder G40.909 Thrombocytopenia D69.6 Abnormal LFTs R94.5 DVT prophylaxis Z29.9 (1) Pneumonia Laterality: left Lung location: lower lobe of lung Pneumonia type: due to unspecified organism Qualified Code(s): J18.9 - Pneumonia, unspecified organism
[2020-08-10] MEDS ORDERED: MIDAZOLAM HCL 5 MG/ML 1 ML VIAL ONE ×2 (19:06→19:29)
--- NOTE | 2020-08-10 19:58 | Procedure Note ---
Procedure Note Date of Service August 10, 2020 Note Emergent bronchoscopy performed due to severe hypoxia and mucous plugging. Sequential doses of Versed and and fentanyl were utilized as per the nursing record. Continuous Precedex was also infusing. Please review the nursing charting records for further details regarding administration of sedatives. Bronchoscope was inserted via the trachea. Alannah was observed. Large amounts of secretions that were thick and white noted to be emanating from the left mainstem bronchus. Scope was advanced and the secretions were aspirated out sequentially. Large mucoid impactions noted in the left upper lobe which were aspirated. The scope was then advanced into the left lower lobe and secretions were aspirated as well. The scope had to be frequently withdrawn in order to clear the suction channel with saline. Minimal bleeding was noted in the left tracheobronchial tree. Scope was then advanced into the segmental regions of the right upper lobe, right middle lobe and right lower lobe. Moderate amount of secretions were aspirated from the right tracheobronchial tree. Scope was then withdrawn to the level of the alannah. Minimal bleeding was noted. The scope was then completely withdrawn. Patient tolerated the procedure well and her saturations improved substantially after the procedure. Heart rate also improved. Coding CPT Codes Pulmonary/Thoracic - Pulmonary and Thoracic: 18017 Bronchoscopy, reclear airway ([id number]) [facility] [place] Procedure Codes (Charges) Pulmonary/Thoracic Procedure 4: Pulmonary and Thoracic: 47196 Bronchoscopy, reclear airway
[2020-08-10] MEDS ORDERED: MIDAZOLAM HCL 5 MG/ML 1 ML VIAL IV STA (22:10)
[2020-08-10] MEDS: DORNASE ALFA 2.5 ML AMP INH SCH (23:04)
[2020-08-11] MEDS: PIPERACILLIN/TAZOBACTAM 4.5 GM in DEXTROSE 5% 100 ML IV SCH ×4 (00:08→23:39)
[2020-08-11] MEDS: guaiFENesin SUGAR FREE 200 MG/10 ML UDC PEG SCH ×7 (00:09→23:39)
[2020-08-11] MEDS ORDERED: [UNRECOGNIZED DRUG - OTHER] ONE (01:30)
[2020-08-11] MEDS: DEXTROSE 5% IV SCH ×2 (02:23→19:40)
[2020-08-11] MEDS: TOBRAMYCIN SULFATE IV SCH ×2 (02:23→19:40)
[2020-08-11] MEDS: ALBUT/IPRATROP 3MG/0.5MG NEB 3 ML VIAL NEB SCH ×6 (03:49→22:04)
[2020-08-11 04:54] LABS: Basophils # (auto) 0.01 K/uL (0-0.2); Basophils % (auto) 0.2 %; Eosinophils # (auto) 0.01 K/uL (0-0.5); Eosinophils % (auto) 0.2 %; Hematocrit (blood only) 31.6 % (37-47); Hemoglobin 10.8 g/dL (12.0-16.0); Immature Granulocytes # (auto) 0.04 K/uL (0.00-0.02); Immature Granulocytes % (auto) 0.8 %; Lymphocytes # (auto) 1.06 K/uL (1.2-3.4); Mean Corpuscular Hemoglobin 33.1 pg (25-34); Mean Corpuscular Hgb Conc 34.2 g/dL (32-36); Mean Corpuscular Volume 96.9 fL (80-100); Mean Platelet Volume 9.5 fL (7.4-10.4); Monocytes # (auto) 0.81 K/uL (0.11-0.59); Monocytes % (auto) 15.3 %; Neutrophils # (auto) 3.37 K/uL (1.4-6.5); Neutrophils % (auto) 63.5 %; Platelet Count 174 K/uL (130-400); RDW Standard Deviation 45.3 fL (36.4-46.3); Red Blood Count 3.26 M/uL (4.2-5.4)
[2020-08-11 05:22] LABS: BUN Creatinine Ratio 18.8 (10-20); Blood Urea Nitrogen 9 mg/dl (7-18); Calcium 8.4 mg/dl (8.5-10.1); Carbon Dioxide 25 mmol/L (21-32); Chloride 105 mmol/L (98-107); Creatinine Clr Calc Pharmacy 151.1 ml/min; Est GFR (African American) > 150.0 ml/min; Est GFR (Non-African American) 139.2 ml/min; Glucose 90 mg/dl (70-99); Phosphorus 4.9 mg/dl (2.5-4.9); Sodium 138 mmol/L (136-145)
[2020-08-11] MEDS: DORNASE ALFA 2.5 ML AMP INH SCH ×2 (06:01→18:27)
[2020-08-11] MEDS: BUDESONIDE 0.5 MG/2 ML VIAL (PULMICORT) INH SCH ×2 (06:02→18:27)
[2020-08-11] MEDS: ACETYLCYSTEINE 20% INHAL SOLN 4ML ***DISPENSED BY RESP. INH SCH ×3 (06:02→19:12)
[2020-08-11 06:06] LABS: Potassium 3.8 mmol/L (3.5-5.1)
[2020-08-11 06:07] LABS: Magnesium 2.2 mg/dl (1.8-2.4)
--- NOTE | 2020-08-11 08:49 | Pharmacy Report ---
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 Continue Tobra with the Zosyn given slow response to abx therapy. May be open to considering Cipro + Zosyn. Planned treatment duration 10-14 days. Plan Tobramycin * Receiving 380mg (~7mg/kg) IV Q 18 hrs * Trough obtained overnight = < 0.3 mcg/mL. For extended-interval dosing trough should ideally be 0.3 or undetectable. Will continue the same dosage. * Goal peak 8-10x VINICIUS or infecting organism when using extended interval dosing method * Goal trough: ideally undetectable but less than 0.5 may also be acceptable * Will recheck trough in a couple of days if therapy to continue Zosyn * eCrCl remains > 20. Continue 4.5gm ext-infusion Q 8 hrs due to critical illness, pulm infxn and multi-drug resistant ps aeruginosa history
[2020-08-11] MEDS: clonazePAM 0.5 MG TAB PO PRN (08:58)
[2020-08-11] MEDS: BACLOFEN 20 MG TAB PEG SCH ×3 (08:58→20:24)
[2020-08-11] MEDS: VALPROIC ACID 250 MG/5 ML PO SCH ×3 (08:58→20:24)
[2020-08-11] MEDS: ZONISAMIDE 100 MG PO SCH ×2 (08:59→20:24)
[2020-08-11] MEDS: TUBE FEEDING WATER FLUSH NG SCH ×4 (09:00→19:11)
--- NOTE | 2020-08-11 10:52 | Critical Care Progress Note ---
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 Valproic acid levels appropriate. Pharmacy is assisting in management. Continue her home seizure medication otherwise. Resp: She is required numerous bronchoscopies this hospital admission due to refractory mucous plugging of her left lung. Is added nebulized dornase alpha twice daily to her regimen. Continue Mucinex 1200 mg twice daily. Continue albuterol nebs and vest percussive therapy 4 times a day. Continue Mucomyst 3 times daily. Continue tobramycin IV and Zosyn IV for pseudomonal pneumonia. CV: Tachycardia likely related to anxiety infectious state. Fluids/Renal: Continue tube feeds. ID: Sepsis likely secondary to bronchopneumonia. Sputum culture is notable for 2 different pseudomonal organisms that are multidrug resistant. Continue tobramycin IV and Zosyn IV. Pharmacy assisting with dosing. Continue isolation contact precautions. GI/Nutrition: Transaminitis: Mild. LFTs improving. GI consulted. Possibly related to valproic acid level being elevated. Liver ultrasound reviewed with contraction of the gallbladder. HIDA scan unremarkable. Heme: Patient with low iron levels. We will hold on iron supplementation at this time given acute infection. Thrombocytopenia is resolving. Possibly sepsis mediated and anemia of chronic disease. No evidence of HLH seen as ferritin and triglycerides were within normal limits. Endocrine: ICU hyperglycemia protocol Vascular access: Peripheral IVs Code Status: DNR/DNI in event of cardiac arrest Disposition: ICU She will likely remain in the hospital into at least early next week. (2) Abnormal LFTs: (3) Thrombocytopenia: (4) Sepsis: (5) Multiple tracheobronchial mucus plugs: (6) Hypotension, chronic: (7) Transaminitis: Admission and Anticipated Discharge Date Admission Date: August 05, 2020 Subjective Patient seen and examined this morning. She is not communicative at baseline. Significant overnight events. She is stable on trach collar. Tolerating her tube feeds. Review of Systems Review of Systems: Unobtainable due to cognitive status Physical Exam Constitutional: Chronically ill-appearing. No acute distress. Respiratory: normal respiratory effort, lungs clear to auscultation Cardiovascular: RRR, no murmur, no edema Gastrointestinal (Abdomen): normal bowel sounds, soft, nontender, no hepatosplenomegaly Musculoskeletal: Bilateral contractures noted Skin: no rashes, warm and dry Neurologic: Nonfocal. Psychiatric: Unobtainable due to chronic cerebral palsy and trach Results & Data Results & Data ([facility]) Vital Signs (Past 12 Hours) Vital Signs Temp Pulse Resp BP Pulse Ox 08/11/20 09:44 107 H 36 H 116/83 93 08/11/20 08:44 108 H 116/70 95 08/11/20 08:00 100.0 F H 96 H 96 08/11/20 07:43 94 H 124/77 100 08/11/20 06:06 98 H 21 93 08/11/20 06:00 105 H 94 08/11/20 05:43 107 H 113/65 82 L 08/11/20 05:00 93 H 97 08/11/20 04:43 99 H 87/67 L 96 08/11/20 04:40 98 H 23 97 08/11/20 04:00 92 H 91 08/11/20 03:43 93 H 113/75 92 08/11/20 03:00 75 99 08/11/20 02:00 92 H 97 08/11/20 01:43 94 H 119/78 93 08/11/20 00:43 98 H 115/71 89 L 08/11/20 00:00 100 H 08/10/20 23:43 96 H 121/69 95 08/10/20 23:10 98 H 21 99 vital signs, labs and imaging reviewed. Coding Level of Care Code 54171 Subseq Hosp Care Lvl 2 Diagnoses Acute on chronic respiratory failure with hypoxemia J96.21 Abnormal LFTs R94.5 Thrombocytopenia D69.6 Sepsis A41.9 Multiple tracheobronchial mucus plugs T17.800A Hypotension, chronic I95.89 Transaminitis R74.01
--- NOTE | 2020-08-11 11:51 | XRay Report ---
XR chest 1V portable CLINICAL HISTORY: Respiratory failure. COMPARISON STUDY: Chest radiograph August 10, 2020. FINDINGS: Tracheostomy tube is in place. Left lung aeration has significantly improved since exam of August 10, 2020. There is residual left lower lobe airspace opacity with volume loss. There is no pneum othorax. No definite pleural effusion. Cardiac size is normal. Patient is rotated. IMPRESSION: Significant improvement in left lung aeration as described above. Residual left lower lo be airspace opacity following loss. ACT 112: Negative or not required by law. Electronically signed by: Otto Pearce M.D. 08/11/2020 11:49 AM
--- NOTE | 2020-08-11 20:57 | Hospitalist Progress Note ---
Date of Service August 11, 2020 Assessment & Plan (1) Sepsis: Presented with fevers, acute on chronic respiratory failure with hypoxemia, tachycardia, tachypnea, thrombocytopenia and transaminitis. With pneumonia evident on imaging of the chest CT upon admission with extensive left lower lobe airspace opacity and moderate right lower lobe airspace opacity as well as secretions in the distal left mainstem bronchus extending into the left lower lobe bronchi Continues on ventilator at nighttime and trach collar during the day, but has had recurrent issues with white out of left lung on chest x-ray with worsening resp distress on 08/07 requiring urgent bronchoscopy for suctioning of massive amounts of sputum. The same thing happened again on the morning of 08/10 and the evening of 08/10. Bronchoscopy as needed for lavage of excessive secretions Appreciate electronics worker/pulmonology consultation Sputum growing 2 kinds of resistant Pseudomonas-both sensitive to Zosyn Continue IV Zosyn and IV tobramycin Fevers recurrent in 08/10 but now improved on 08/11 With thrombocytopenia and elevated LFTs, but she is improving with treatment of her pneumonia hepatitis panel negative for A, B, and C, CMV negative, EBV titers indicative of previous infection Follow blood cultures-NGTD Urine culture with alpha strep, not Enterococcus, UA was contaminated with epithelial cells Procalcitonin is negative Follow CBC, CMP MRSA is negative-vancomycin discontinued early on Continue supplemental O2 via trach collar and vent as needed No need for vasopressors at this point but did receive IV albumin for hypotension on the evening of 08/07 Follow CXR -will likely go home on IV antibiotics-will need PICC line eventually -Pulmonary added on dornase nebulized for significant mucoid plugging recurrence (2) Acute on chronic respiratory failure with hypoxemia: Ongoing management for pneumonia as above, with intermittent requirement of ventilator Continue acetylcysteine nebulizers twice daily Continue budesonide inhaler twice daily, but discontinued hypertonic saline nebulizers due to causing excessive secretions Wean back to baseline oxygen levels as needed Has Trilogy ventilator at home -Added nebulized dornase as above (3) Pneumonia: As above (4) Quadriplegic cerebral palsy: Continue supportive treatment Continue clonazepam as needed, baclofen (5) Seizure disorder: Continue valproic acid although valproic acid level here was elevated and with elevated LFTs, valproic acid was placed on hold Now restarted valproic acid at a lower dose Continue zonisamide (6) Thrombocytopenia: Platelets were severely low at 28,000 and now back to normal Peripheral smear without evidence of malignancy, no cytoplasmic inclusion bodies that would be consistent with anaplasmosis Fibrinogen and FDP were reassuring as it relates to DIC. Likely related to sepsis and is improving now with treatment of infection HLH ruled out with normal triglycerides and ferritin Spleen is mildly enlarged Could likely restart DVT prophylaxis-defer to electronics worker Follow CBC in the morning CMV negative, EBV negative for acute infection anaplasmosis testing not likely indicated as she is improving without any treatment for this (7) Abnormal LFTs: Peaked in the 200s for AST and ALT, bilirubin is normal-then improving Likely secondary to sepsis CT abdomen/pelvis with normal liver and mildly enlarged spleen Right upper quadrant ultrasound performed does show normal echotexture of the liver, gallbladder is contracted and appears thick-walled and heterogenous but no shadowing gallstones are identified GI consultation appreciated HIDA scan negative -CMV negative, EBV, acute hepatitis panel negative as above Follow LFTs in the morning-not checked in a few days Held valproic acid as this level was elevated and could be contributing- restarted at a lower dose (8) DVT prophylaxis: Holding on anticoagulation due to thrombocytopenia which is now improving, consider adding on Lovenox tomorrow-defer to electronics worker SCDs Disposition-continued stay in the ICU, prognosis improving, but likely will be in the ICU till next week FEN-continue continuous tube feeds, switch to bolus feeds when more stable and off ventilator, IV Pepcid for GI prophylaxis Admission and Anticipated Discharge Date Admission Date: August 05, 2020 Subjective Patient nonverbal. Nursing reports that she had an uneventful day. She had repeat bronchoscopy yesterday evening. She is stable on trach collar. Review of Systems Review of Systems: Unobtainable due to cognitive status Physical Exam Constitutional: + thin; no acute distress Eyes: + anicteric sclerae Results & Data Results & Data ([facility]) Vital Signs (Past 12 Hours) Vital Signs Temp Pulse Pulse Resp BP Pulse Ox 08/11/20 20:28 96 H 26 H 95 08/11/20 20:00 97 H 94 08/11/20 19:43 96 H 110/75 90 08/11/20 18:44 101 H 32 H 108/78 95 08/11/20 18:29 99 H 20 95 08/11/20 17:43 98 H 33 H 128/82 97 08/11/20 16:43 37.6 C H 93 H 27 H 110/68 96 08/11/20 16:00 96 H 28 H 95 08/11/20 15:43 99 H 33 H 98/75 L 95 08/11/20 14:51 96 H 20 99 08/11/20 14:43 94 H 25 H 100/80 97 08/11/20 13:46 90 33 H 104/67 97 08/11/20 12:43 37.3 C 100 H 24 115/70 96 08/11/20 12:00 103 H 98 08/11/20 11:43 102 H 23 89/65 L 99 08/11/20 11:05 102 H 22 97 08/11/20 10:44 103 H 29 H 105/67 98 08/11/20 09:44 107 H 36 H 116/83 93 Laboratory Results 08/11/20 08/11/20 08/11/20 Range/Units 05:42 04:37 04:37 WBC 5.30 (4.8-10.8) K/uL RBC 3.26 L (4.2-5.4) M/uL Hgb 10.8 L (12.0-16.0) g/dL Hct 31.6 L (37-47) % MCV 96.9 (80-100) fL MCH 33.1 (25-34) pg MCHC 34.2 (32-36) g/dL RDW Std Deviation 45.3 (36.4-46.3) fL RDW Coeff of [place] 13.0 (11.5-14.5) % Plt Count 174 (130-400) K/uL MPV 9.5 (7.4-10.4) fL Immature Gran % (Auto) 0.8 % Neut % (Auto) 63.5 % Lymph % (Auto) 20.0 % [place] % (Auto) 15.3 % Eos % (Auto) 0.2 % Baso % (Auto) 0.2 % Neut # (Auto) 3.37 (1.4-6.5) K/uL Lymph # (Auto) 1.06 L (1.2-3.4) K/uL [place] # (Auto) 0.81 H (0.11-0.59) K/uL Eos # (Auto) 0.01 (0-0.5) K/uL Baso # (Auto) 0.01 (0-0.2) K/uL Immature Gran # (Auto) 0.04 H (0.00-0.02) K/uL Sodium 138 (136-145) mmol/L Potassium 3.8 (3.5-5.1) mmol/L Chloride 105 (98-107) mmol/L Carbon Dioxide 25 (21-32) mmol/L Anion Gap 8.0 (3-11) BUN 9 (7-18) mg/dl Creatinine 0.47 L (0.6-1.2) mg/dl Est Cr Clr Drug Dosing 151.1 ml/min Est GFR ( Amer) > 150.0 ml/min Est GFR (Non-Af Amer) 139.2 ml/min BUN/Creatinine Ratio 18.8 (10-20) Glucose 90 (70-99) mg/dl Calcium 8.4 L (8.5-10.1) mg/dl Phosphorus 4.9 (2.5-4.9) mg/dl Magnesium 2.2 (1.8-2.4) mg/dl Tobramycin Trough (0-2) mcg/ml 08/11/20 Range/Units 01:45 WBC (4.8-10.8) K/uL RBC (4.2-5.4) M/uL Hgb (12.0-16.0) g/dL Hct (37-47) % MCV (80-100) fL MCH (25-34) pg MCHC (32-36) g/dL RDW Std Deviation (36.4-46.3) fL RDW Coeff of [place] (11.5-14.5) % Plt Count (130-400) K/uL MPV (7.4-10.4) fL Immature Gran % (Auto) % Neut % (Auto) % Lymph % (Auto) % [place] % (Auto) % Eos % (Auto) % Baso % (Auto) % Neut # (Auto) (1.4-6.5) K/uL Lymph # (Auto) (1.2-3.4) K/uL [place] # (Auto) (0.11-0.59) K/uL Eos # (Auto) (0-0.5) K/uL Baso # (Auto) (0-0.2) K/uL Immature Gran # (Auto) (0.00-0.02) K/uL Sodium (136-145) mmol/L Potassium (3.5-5.1) mmol/L Chloride (98-107) mmol/L Carbon Dioxide (21-32) mmol/L Anion Gap (3-11) BUN (7-18) mg/dl Creatinine (0.6-1.2) mg/dl Est Cr Clr Drug Dosing ml/min Est GFR ( Amer) ml/min Est GFR (Non-Af Amer) ml/min BUN/Creatinine Ratio (10-20) Glucose (70-99) mg/dl Calcium (8.5-10.1) mg/dl Phosphorus (2.5-4.9) mg/dl Magnesium (1.8-2.4) mg/dl Tobramycin Trough < 0.30 (0-2) mcg/ml PG Care Time/CCT Total # of Minutes Spent Total Time Spent with Patient: Total time spent is greater than 50% in coordination of care (as documented) at patient's floor/unit and/or counseling patient: Coding Level of Care Code 45816 Subseq Hosp Care Lvl 1 Diagnoses Sepsis A41.9 Acute on chronic respiratory failure with hypoxemia J96.21 Pneumonia J18.9 Laterality: left Lung location: lower lobe of lung Pneumonia type: due to unspecified organism Quadriplegic cerebral palsy G80.8 Seizure disorder G40.909 Thrombocytopenia D69.6 Abnormal LFTs R94.5 DVT prophylaxis Z29.9 (1) Pneumonia Laterality: left Lung location: lower lobe of lung Pneumonia type: due to unspecified organism Qualified Code(s): J18.9 - Pneumonia, unspecified organism
[2020-08-12] MEDS: guaiFENesin SUGAR FREE 200 MG/10 ML UDC PEG SCH ×6 (03:26→23:16)
[2020-08-12] MEDS: ALBUT/IPRATROP 3MG/0.5MG NEB 3 ML VIAL NEB SCH ×6 (03:45→23:19)
[2020-08-12 05:05] LABS: Basophils # (auto) 0.01 K/uL (0-0.2); Basophils % (auto) 0.1 %; Eosinophils % (auto) 1.3 %; Hematocrit (blood only) 31.9 % (37-47); Hemoglobin 10.9 g/dL (12.0-16.0); Immature Granulocytes # (auto) 0.12 K/uL (0.00-0.02); Immature Granulocytes % (auto) 1.5 %; Lymphocytes % (auto) 11.4 %; Mean Corpuscular Hemoglobin 32.9 pg (25-34); Mean Corpuscular Hgb Conc 34.2 g/dL (32-36); Mean Corpuscular Volume 96.4 fL (80-100); Mean Platelet Volume 8.7 fL (7.4-10.4); Monocytes # (auto) 1.01 K/uL (0.11-0.59); Monocytes % (auto) 12.8 %; Neutrophils # (auto) 5.77 K/uL (1.4-6.5); Neutrophils % (auto) 72.9 %; Platelet Count 239 K/uL (130-400); RDW Coefficient of Variation 12.8 % (11.5-14.5); RDW Standard Deviation 44.5 fL (36.4-46.3); Red Blood Count 3.31 M/uL (4.2-5.4); White Blood Count 7.91 K/uL (4.8-10.8)
[2020-08-12 05:32] LABS: Alanine Aminotransferase 54 U/L (12-78); Albumin Level 2.9 gm/dl (3.4-5.0); Aspartate Aminotransferase 24 U/L (15-37); BUN Creatinine Ratio 17.6 (10-20); Bilirubin Direct < 0.1 mg/dl (0-0.2); Blood Urea Nitrogen 7 mg/dl (7-18); Calcium 8.5 mg/dl (8.5-10.1); Carbon Dioxide 24 mmol/L (21-32); Chloride 105 mmol/L (98-107); Creatinine Clr Calc Pharmacy 167.1 ml/min; Est GFR (African American) > 150.0 ml/min; Est GFR (Non-African American) 146.8 ml/min; Glucose 90 mg/dl (70-99); Magnesium 2.3 mg/dl (1.8-2.4); Potassium 3.8 mmol/L (3.5-5.1); Sodium 137 mmol/L (136-145)
[2020-08-12 05:37] LABS: Alkaline Phosphatase 113 U/L (45-117); Bilirubin,Total 0.4 mg/dl (0.2-1); Phosphorus 4.1 mg/dl (2.5-4.9); Total Protein 7.1 gm/dl (6.4-8.2)
[2020-08-12] MEDS ORDERED: MIDAZOLAM HCL 1 MG/ML 2ML VIAL ONE ×2 (06:20→06:59)
[2020-08-12] MEDS ORDERED: fentaNYL citrate 100 MCG/2 ML VIAL ONE (06:20)
[2020-08-12] MEDS ORDERED: MIDAZOLAM HCL 5 MG/ML VIAL IV STA ×2 (06:25→14:19)
[2020-08-12] MEDS ORDERED: fentaNYL citrate 100 MCG/2 ML VIAL IV STA (06:26)
[2020-08-12] MEDS: DEXMEDETOMIDINE HCL 200 MCG in SODIUM CHLORIDE 0.9% 48 ML IV SCH ×5 (06:39→09:23)
[2020-08-12] MEDS: ACETYLCYSTEINE 20% INHAL SOLN 4ML ***DISPENSED BY RESP. INH SCH ×3 (07:18→19:24)
[2020-08-12] MEDS: BUDESONIDE 0.5 MG/2 ML VIAL (PULMICORT) INH SCH ×2 (07:19→19:55)
[2020-08-12] MEDS: DORNASE ALFA 2.5 ML AMP INH SCH ×2 (07:19→19:24)
--- NOTE | 2020-08-12 08:02 | Critical Care Progress Note ---
Date of Service August 12, 2020 Assessment & Plan (1) Acute on chronic respiratory failure with hypoxemia: Reason Critically Ill: 24-year-old female with chronic tracheostomy dependence who was admitted for sepsis likely pulmonary source PLAN: Neuro: Cerebral palsy -Continue reduced dose of valproic acid. Valproic acid levels appropriate. Pharmacy is assisting in management. Continue her home seizure medication otherwise. Resp: She has required numerous bronchoscopies this hospital admission due to refractory mucous plugging of her left lung. Continue nebulized dornase alpha twice daily to her regimen which was added to her regimen on 08/10/20. Continue Mucinex 1200 mg twice daily. Continue albuterol nebs and vest percussive therapy 4 times a day. Continue Mucomyst 3 times daily. Continue tobramycin IV and Zosyn IV for pseudomonal pneumonia. CV: No significant issues Fluids/Renal: Continue tube feeds. ID: Sepsis likely secondary to bronchopneumonia. Sputum culture is notable for 2 different pseudomonal organisms that are multidrug resistant. Continue tobramy joann IV and Zosyn IV. Pharmacy assisting with dosing. Continue isolation contact precautions. GI/Nutrition: LFTs have normalized. Transaminitis was possibly related to valproic acid level being elevated. Liver ultrasound reviewed with contraction of the gallbladder. HIDA scan unremarkable. Heme: Patient with low iron levels. We will hold on iron supplementation at this time given acute infection. Thrombocytopenia is resolving. Possibly sepsis mediated and anemia of chronic disease. No evidence of HLH seen as ferritin and triglycerides were within normal limits. Endocrine: ICU hyperglycemia protocol Vascular access: Peripheral IVs Code Status: DNR/DNI in event of cardiac arrest Disposition: ICU She will likely remain in the hospital into at least early next week. (2) Abnormal LFTs: (3) Thrombocytopenia: (4) Sepsis: (5) Multiple tracheobronchial mucus plugs: (6) Hypotension, chronic: (7) Transaminitis: Admission and Anticipated Discharge Date Admission Date: August 05, 2020 Subjective This morning patient has significant hypoxia with saturations in the 60s which is due to mucous plugging. Bronchoscopy was performed by me and large amounts of mucus were suctioned from the left lung. Saturations significantly improved post bronchoscopy. She was given 150 mcg of fentanyl 4 mg of Versed. Continuous Precedex drip was infusing. She is nonverbal at baseline review of systems is limited otherwise. Review of Systems Review of Systems: All systems reviewed & are unremarkable except as noted in HPI & below Physical Exam Constitutional: Chronically ill-appearing. No acute distress. Respiratory: normal respiratory effort, lungs clear to auscultation Cardiovascular: RRR, no murmur, no edema Gastrointestinal (Abdomen): normal bowel sounds, soft, nontender, no hepatosplenomegaly Musculoskeletal: Bilateral contractures noted Skin: no rashes, warm and dry Neurologic: Nonfocal. Psychiatric: Unobtainable due to chronic cerebral palsy and trach Results & Data Results & Data ([facility]) Vital Signs (Past 12 Hours) Vital Signs Pulse Pulse Resp BP Pulse Ox 08/12/20 07:49 83 22 98 08/12/20 07:45 82 22 98 08/12/20 05:43 84 92/65 L 91 08/12/20 05:00 93 H 91 08/12/20 04:43 92 H 107/78 90 08/12/20 04:00 94 H 27 H 92 08/12/20 03:43 84 96/67 L 93 08/12/20 02:43 86 102/75 90 08/12/20 01:43 89 102/67 93 08/12/20 00:43 88 108/79 97 08/12/20 00:00 93 H 92 08/11/20 23:43 91 H 109/77 95 08/11/20 22:43 90 107/74 96 08/11/20 22:26 92 H 25 H 95 08/11/20 21:43 90 108/78 96 08/11/20 20:45 88 110/75 93 08/11/20 20:28 96 H 26 H 95 vital signs, labs and imaging reviewed Coding Level of Care Code 05111 Subseq Hosp Care Lvl 3 Diagnoses Acute on chronic respiratory failure with hypoxemia J96.21 Abnormal LFTs R94.5 Thrombocytopenia D69.6 Sepsis A41.9 Multiple tracheobronchial mucus plugs T17.800A Hypotension, chronic I95.89 Transaminitis R74.01
--- NOTE | 2020-08-12 08:10 | Procedure Note ---
Procedure Note Date of Service August 12, 2020 Note Emergent bronchoscopy performed due to severe hypoxia and mucous plugging. Sequential doses of Versed and and fentanyl were utilized as per the nursing record. Continuous Precedex was also infusing. Please review the nursing charting records for further details regarding administration of sedatives. Bronchoscope was inserted via the tracheostomy. Alannah was observed and appeared to be sharp. Large amounts of secretions that were thick and white noted to be emanating from the left mainstem bronchus. Scope was advanced and the secretions were aspirated out sequentially. Large mucoid impactions noted in the left upper lobe which were aspirated. The scope was then advanced into the left lower lobe thick, white secretions were aspirated as well. The scope had to be frequently withdrawn in order to clear the suction channel with saline. Minimal bleeding was noted in the left tracheobronchial tree. Scope was then advanced into the segmental regions of the right upper lobe, right middle lobe and right lower lobe. Moderate amount of secretions were aspirated from the right tracheobronchial tree. Scope was then withdrawn to the level of the alannah. Minimal bleeding was noted. The scope was then completely withdrawn. Patient tolerated the procedure well and her saturations improved substantially after the procedure. Heart rate also improved. Coding CPT Codes Pulmonary/Thoracic - Pulmonary and Thoracic: 16471 Bronchoscopy, reclear airway ([id number]) [facility] Procedure Codes (Charges) Pulmonary/Thoracic Procedure 5: Pulmonary and Thoracic: 24524 Bronchoscopy, reclear airway
[2020-08-12] MEDS: PIPERACILLIN/TAZOBACTAM 4.5 GM in DEXTROSE 5% 100 ML IV SCH ×3 (08:53→23:16)
[2020-08-12] MEDS: TUBE FEEDING WATER FLUSH NG SCH ×4 (08:55→20:16)
[2020-08-12] MEDS: ZONISAMIDE 100 MG PO SCH ×2 (08:56→20:19)
[2020-08-12] MEDS: VALPROIC ACID 250 MG/5 ML PO SCH ×3 (08:56→20:19)
[2020-08-12] MEDS: BACLOFEN 20 MG TAB PEG SCH ×3 (08:57→20:18)
--- NOTE | 2020-08-12 09:47 | XRay Report ---
XR chest 1V portable HISTORY: Respiratory failure. COMPARISON: 08/11/2020. FINDINGS: Tracheostomy tube remains in good position. No pneumothorax. Small left pleural effusion an d left basilar densities have slightly increased in size. The right lung remains clear. Slightly rota brooks study. The heart is normal in size. A gastrostomy tube is noted. IMPRESSION: Slight progression of the left basilar opacity/effusion. ACT 112: Negative or not required by law. Electronically signed by: Edmund Dorman M.D. 08/12/2020 9:46 AM
[2020-08-12] MEDS: DEXTROSE 5% IV SCH (13:02)
[2020-08-12] MEDS: TOBRAMYCIN SULFATE IV SCH (13:02)
[2020-08-12] MEDS: ACETAMINOPHEN SUSP 325 MG/10.15 ML UDC PO PRN (16:35)
--- NOTE | 2020-08-12 21:18 | Hospitalist Progress Note ---
Date of Service August 12, 2020 Assessment & Plan (1) Sepsis: Presented with fevers, acute on chronic respiratory failure with hypoxemia, tachycardia, tachypnea, thrombocytopenia and transaminitis. With pneumonia evident on imaging of the chest CT upon admission with extensive left lower lobe airspace opacity and moderate right lower lobe airspace opacity as well as secretions in the distal left mainstem bronchus extending into the left lower lobe bronchi Continues intermittently on ventilator at nighttime and trach collar during the day, but has had recurrent issues with white out of left lung on chest x-ray with worsening resp distress and severe hypoxia on 08/07 requiring urgent bro nchoscopy for suctioning of massive amounts of sputum. The same thing happened again on the morning of 08/10 and the evening of 08/10, as well as the morning of 08/12 Continue bronchoscopy as needed for lavage of excessive secretions Appreciate estimator project manager/pulmonology consultation Sputum growing 2 kinds of resistant Pseudomonas-both sensitive to Zosyn Continue IV Zosyn and IV tobramycin Low-grade fevers intermittent continuing With thrombocytopenia and elevated LFTs, but she is improving with treatment of her pneumonia hepatitis panel negative for A, B, and C, CMV negative, EBV titers indicative of previous infection Follow blood cultures-NGTD Urine culture with alpha strep, not Enterococcus, UA was contaminated with epithelial cells Procalcitonin is negative Follow CBC, CMP MRSA is negative-vancomycin discontinued early on Continue supplemental O2 via trach collar and vent as needed Follow CXR -will likely go home on IV antibiotics-will need PICC line eventually -Pulmonary added on dornase nebulized for significant mucoid plugging recurrence (2) Acute on chronic respiratory failure with hypoxemia: Ongoing management for pneumonia as above, with intermittent requirement of ventilator Continue acetylcysteine nebulizers twice daily Continue budesonide inhaler twice daily, but discontinued hypertonic saline nebulizers due to causing excessive secretions Wean back to baseline oxygen levels as needed Has Trilogy ventilator at home -Continue nebulized dornase as above (3) Pneumonia: As above (4) Quadriplegic cerebral palsy: Continue supportive treatment Continue clonazepam as needed, baclofen (5) Seizure disorder: Continue valproic acid at lower dose-valproic acid level here was elevated and with elevated LFTs upon admission Continue zonisamide (6) Thrombocytopenia: Platelets were severely low at 28,000 and now back to normal Peripheral smear without evidence of malignancy, no cytoplasmic inclusion bodies that would be consistent with anaplasmosis Fibrinogen and FDP were reassuring as it relates to DIC. Likely related to sepsis and is improving now with treatment of infection HLH ruled out with normal triglycerides and ferritin Spleen is mildly enlarged Could likely restart DVT prophylaxis-defer to estimator project manager Follow CBC in the morning CMV negative, EBV negative for acute infection anaplasmosis testing not likely indicated as she is improving without any treatment for this (7) Abnormal LFTs: Peaked in the 200s for AST and ALT, bilirubin is normal-now resolved CT abdomen/pelvis with normal liver and mildly enlarged spleen Right upper quadrant ultrasound performed does show normal echotexture of the liver, gallbladder is contracted and appears thick-walled and heterogenous but no shadowing gallstones are identified GI consultation appreciated HIDA scan negative -CMV negative, EBV, acute hepatitis panel negative Held valproic acid as this level was elevated and could be contributing- restarted at a lower dose Likely secondary to sepsis (8) DVT prophylaxis: Holding on anticoagulation due to thrombocytopenia which is now improving, consider adding on Lovenox tomorrow-defer to estimator project manager SCDs Disposition-continued stay in the ICU, likely will be in the ICU till next week FEN-continue continuous tube feeds, switch to bolus feeds when more stable and off ventilator, IV Pepcid for GI prophylaxis Admission and Anticipated Discharge Date Admission Date: August 05, 2020 Subjective Patient had acute worsening hypoxia again this morning and required a repeat bronchoscopy again with large amounts of mucus lavage from the left lung. She remains nonverbal. Review of Systems Review of Systems: Unobtainable due to cognitive status Physical Exam Constitutional: + thin; no acute distress Eyes: + anicteric sclerae Psychiatric: Orientation: alert Results & Data Results & Data ([facility]) Vital Signs (Past 12 Hours) Vital Signs Temp Pulse Pulse Resp BP Pulse Ox 08/12/20 20:18 112 H 135/86 100 08/12/20 20:11 114 H 28 H 100 08/12/20 19:53 99 H 24 93 08/12/20 19:18 101 H 27 H 123/85 92 08/12/20 18:00 90 29 H 96 08/12/20 17:18 99 H 31 H 125/73 96 08/12/20 16:18 37.8 C H 104 H 39 H 114/83 95 08/12/20 16:00 106 H 34 H 95 08/12/20 15:18 104 H 33 H 122/80 95 08/12/20 14:19 107 H 40 H 105/77 95 08/12/20 13:55 105 H 20 95 08/12/20 13:18 111 H 31 H 138/82 91 08/12/20 12:18 37.7 C H 95 H 106/72 94 08/12/20 11:18 98 H 98/64 L 96 08/12/20 11:05 103 H 24 100 08/12/20 10:18 83 116/63 95 Laboratory Results 08/12/20 04:38 08/12/20 04:38 PG Care Time/CCT Total # of Minutes Spent Total Time Spent with Patient: Total time spent is greater than 50% in coordination of care (as documented) at patient's floor/unit and/or counseling patient: Coding Level of Care Code 70451 Subseq Hosp Care Lvl 1 Diagnoses Sepsis A41.9 Acute on chronic respiratory failure with hypoxemia J96.21 Pneumonia J18.9 Laterality: left Lung location: lower lobe of lung Pneumonia type: due to unspecified organism Quadriplegic cerebral palsy G80.8 Seizure disorder G40.909 Thrombocytopenia D69.6 Abnormal LFTs R94.5 DVT prophylaxis Z29.9 (1) Pneumonia Laterality: left Lung location: lower lobe of lung Pneumonia type: due to unspecified organism Qualified Code(s): J18.9 - Pneumonia, unspecified organism
--- NOTE | 2020-08-13 00:27 | Critical Care Progress Note ---
Date of Service August 13, 2020 Assessment & Plan (1) Acute on chronic respiratory failure with hypoxemia: Reason Critically Ill: 24-year-old female with chronic tracheostomy dependence who was admitted for sepsis likely pulmonary source PLAN: Neuro: Cerebral palsy -Continue reduced dose of valproic acid. Valproic acid levels appropriate. Pharmacy is assisting in management. Continue her home seizure medication otherwise. Resp: She has required numerous bronchoscopies this hospital admission due to refractory mucous plugging of her left lung. Continue Mucinex 1200 mg twice daily. Continue albuterol nebs and vest percussive therapy 4 times a day. Continue tobramycin IV and Zosyn IV for pseudomonal pneumonia, x10 days with stop dates and. Mucoid impaction -Hopefully we have passed through the worst of her impaction we have removed the dornase dwight and Mucomyst nebs at this time and will contact you with the aggressive pulmonary toilet CV: No significant issues Fluids/Renal: Continue tube feeds -Converting to bolus feedings. ID: Sepsis likely secondary to bronchopneumonia. Sputum culture is notable for 2 different pseudomonal organisms that are multidrug resistant. Continue tobramycin IV and Zosyn IV. Pharmacy assisting with dosing. Continue isolation contact precautions. GI/Nutrition: LFTs have normalized. Transaminitis was possibly related to valproic acid level being elevated. Liver ultrasound reviewed with contraction of the gallbladder. HIDA scan unremarkable. Heme: Patient with low iron levels. We will hold on iron supplementation at this time given acute infection. Thrombocytopenia is resolving. Possibly sepsis mediated and anemia of chronic disease. No evidence of HLH seen as ferritin and triglycerides were within normal limits. Endocrine: ICU hyperglycemia protocol Vascular access: Peripheral IVs Code Status: DNR/DNI in event of cardiac arrest Disposition: ICU for aggressive respiratory care (2) Abnormal LFTs: (3) Thrombocytopenia: (4) Sepsis: (5) Multiple tracheobronchial mucus plugs: (6) Hypotension, chronic: (7) Transaminitis: Admission and Anticipated Discharge Date Admission Date: August 05, 2020 Supervising Physician Co-Signing Physician Notes I have personally spent 35 minutes of critical care time in the direct management of this patient. This is a life/limb threatening event. This includes time spent evaluating patient, direct bedside care, chart review, placing orders, interpretation of diagnostic studies, discussion with consult ants, patient, and/or family members regarding treatment decisions, as well as other required patient management activities. This time is exclusive of all separately billable procedures, and teaching time and separate from and in addition to any other critical care service time. Subjective More alert smiling and interactive Review of Systems Review of Systems: Unobtainable due to cognitive status Physical Exam Physical Exam: General: Alert. Skin: Warm, dry, Head: Atraumatic Ears, nose, mouth and throat: Tracheostomy in place and patent Cardiovascular: Normal peripheral perfusion Respiratory: Mild tachypnea Gastrointestinal: Non distended Musculoskeletal: Bilateral contractures x4 Results & Data Results & Data ([facility]) Vital Signs (Past 12 Hours) Vital Signs Temp Pulse Pulse Resp BP Pulse Ox 08/13/20 00:00 91 H 08/12/20 23:43 115 H 28 H 100 08/12/20 23:18 93 H 127/88 100 08/12/20 22:18 94 H 114/73 99 08/12/20 21:18 97 H 132/80 99 08/12/20 20:18 112 H 135/86 100 08/12/20 20:11 114 H 28 H 100 08/12/20 19:53 99 H 24 93 08/12/20 19:18 101 H 27 H 123/85 92 08/12/20 18:00 90 29 H 96 08/12/20 17:18 99 H 31 H 125/73 96 08/12/20 16:18 37.8 C H 104 H 39 H 114/83 95 08/12/20 16:00 106 H 34 H 95 08/12/20 15:18 104 H 33 H 122/80 95 08/12/20 14:19 107 H 40 H 105/77 95 08/12/20 13:55 105 H 20 95 08/12/20 13:18 111 H 31 H 138/82 91 Coding Level of Care Code Critical Care 1st 30-74 mins Diagnoses Acute on chronic respiratory failure with hypoxemia J96.21 Abnormal LFTs R94.5 Thrombocytopenia D69.6 Sepsis A41.9 Multiple tracheobronchial mucus plugs T17.800A Hypotension, chronic I95.89 Transaminitis R74.01
[2020-08-13] MEDS: ALBUT/IPRATROP 3MG/0.5MG NEB 3 ML VIAL NEB SCH ×6 (03:29→23:00)
[2020-08-13] MEDS: guaiFENesin SUGAR FREE 200 MG/10 ML UDC PEG SCH ×6 (04:27→23:47)
[2020-08-13 05:26] LABS: Basophils # (auto) 0.01 K/uL (0-0.2); Basophils % (auto) 0.1 %; Eosinophils # (auto) 0.06 K/uL (0-0.5); Eosinophils % (auto) 0.8 %; Hematocrit (blood only) 34.3 % (37-47); Hemoglobin 11.5 g/dL (12.0-16.0); Immature Granulocytes # (auto) 0.13 K/uL (0.00-0.02); Immature Granulocytes % (auto) 1.8 %; Lymphocytes # (auto) 0.75 K/uL (1.2-3.4); Lymphocytes % (auto) 10.6 %; Mean Corpuscular Hemoglobin 32.9 pg (25-34); Mean Corpuscular Hgb Conc 33.5 g/dL (32-36); Mean Platelet Volume 8.4 fL (7.4-10.4); Monocytes # (auto) 0.87 K/uL (0.11-0.59); Monocytes % (auto) 12.3 %; Neutrophils # (auto) 5.25 K/uL (1.4-6.5); Neutrophils % (auto) 74.4 %; Platelet Count 287 K/uL (130-400); RDW Coefficient of Variation 13.1 % (11.5-14.5); RDW Standard Deviation 46.2 fL (36.4-46.3); White Blood Count 7.07 K/uL (4.8-10.8)
[2020-08-13 05:47] LABS: BUN Creatinine Ratio 14.2 (10-20); Blood Urea Nitrogen 7 mg/dl (7-18); Calcium 9.2 mg/dl (8.5-10.1); Carbon Dioxide 26 mmol/L (21-32); Chloride 106 mmol/L (98-107); Creatinine Clr Calc Pharmacy 144.1 ml/min; Est GFR (African American) > 150.0 ml/min; Est GFR (Non-African American) 135.5 ml/min; Glucose 87 mg/dl (70-99); Magnesium 2.4 mg/dl (1.8-2.4); Potassium 4.6 mmol/L (3.5-5.1); Sodium 138 mmol/L (136-145)
[2020-08-13 06:24] LABS: Phosphorus 5.1 mg/dl (2.5-4.9)
[2020-08-13] MEDS: DORNASE ALFA 2.5 ML AMP INH SCH (07:33)
[2020-08-13] MEDS: ACETYLCYSTEINE 20% INHAL SOLN 4ML ***DISPENSED BY RESP. INH SCH (07:33)
[2020-08-13] MEDS: BUDESONIDE 0.5 MG/2 ML VIAL (PULMICORT) INH SCH ×2 (07:34→19:23)
[2020-08-13] MEDS: TOBRAMYCIN SULFATE IV SCH (08:14)
[2020-08-13] MEDS: TUBE FEEDING WATER FLUSH NG SCH ×4 (08:14→19:09)
[2020-08-13] MEDS: PIPERACILLIN/TAZOBACTAM 4.5 GM in DEXTROSE 5% 100 ML IV SCH ×3 (08:14→23:51)
[2020-08-13] MEDS: DEXTROSE 5% IV SCH (08:14)
[2020-08-13] MEDS: VALPROIC ACID 250 MG/5 ML PO SCH ×3 (08:15→20:12)
[2020-08-13] MEDS: BACLOFEN 20 MG TAB PEG SCH ×3 (08:15→20:11)
[2020-08-13] MEDS: ZONISAMIDE 100 MG PO SCH ×2 (08:16→20:12)
--- NOTE | 2020-08-13 08:41 | XRay Report ---
XR chest 1V portable CLINICAL HISTORY: Respiratory failure COMPARISON STUDY: 08/12/2020 FINDINGS: The tracheostomy tube remains unchanged in position. There is significant improvement in th e aeration of the left lung base. Mild basilar opacities are likely atelectatic. There are no large p leural effusions.[ IMPRESSION: Significant interval improvement in the aeration of the left lung base. ACT 112: Negative or not required by law. Electronically signed by: Galen Ham M.D. 08/13/2020 8:40 AM
[2020-08-13] MEDS: ACETAMINOPHEN SUSP 325 MG/10.15 ML UDC PO PRN (13:25)
--- NOTE | 2020-08-13 21:02 | Hospitalist Progress Note ---
Date of Service August 13, 2020 Assessment & Plan (1) Sepsis: Presented with fevers, acute on chronic respiratory failure with hypoxemia, tachycardia, tachypnea, thrombocytopenia and transaminitis. With pneumonia evident on imaging of the chest CT upon admission with extensive left lower lobe airspace opacity and moderate right lower lobe airspace opacity as well as secretions in the distal left mainstem bronchus extending into the left lower lobe bronchi Continues intermittently on ventilator at nighttime and trach collar during the day, but has had recurrent issues with white out of left lung on chest x-ray with worsening resp distress and severe hypoxia on 08/07 requiring urgent bro nchoscopy for suctioning of massive amounts of sputum. 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 Sputum growing 2 kinds of resistant Pseudomonas-both sensitive to Zosyn Continue IV Zosyn and IV tobramycin no true fever today hepatitis panel negative for A, B, and C, CMV negative, EBV titers indicative of previous infection Follow blood cultures-NGTD Urine culture with alpha strep, not Enterococcus, UA was contaminated with epithelial cells Procalcitonin is negative WBC 7k, Cr 0.5, K normal Continue supplemental O2 via trach collar and vent as needed Follow CXR -will likely go home on IV antibiotics-will need PICC line eventually -Pulmonary added on dornase nebulized for significant mucoid plugging recurrence likely here the rest of the week (2) Acute on chronic respiratory failure with hypoxemia: Ongoing management for pneumonia as above, with intermittent requirement of ventilator Continue acetylcysteine nebulizers twice daily Continue budesonide inhaler twice daily, but discontinued hypertonic saline nebulizers due to causing excessive secretions Wean back to baseline oxygen levels as needed Has Trilogy ventilator at home -Continue nebulized dornase as above (3) Pneumonia: As above (4) Quadriplegic cerebral palsy: Continue supportive treatment Continue clonazepam as needed, baclofen (5) Seizure disorder: Continue valproic acid at lower dose-valproic acid level here was elevated and with elevated LFTs upon admission Continue zonisamide valproic acid is 55 today (6) Thrombocytopenia: Platelets were severely low at 28,000 and now back to normal, 287 today Peripheral smear without evidence of malignancy, no cytoplasmic inclusion bodies that would be consistent with anaplasmosis Likely related to sepsis and is improving now with treatment of infection (7) Abnormal LFTs: Peaked in the 200s for AST and ALT, bilirubin is normal-now resolved CT abdomen/pelvis with normal liver and mildly enlarged spleen Right upper quadrant ultrasound performed does show normal echotexture of the liver, gallbladder is contracted and appears thick-walled and heterogenous but no shadowing gallstones are identified GI consultation appreciated HIDA scan negative -CMV negative, EBV, acute hepatitis panel negative Held valproic acid as this level was elevated and could be contributing- restarted at a lower dose Likely secondary to sepsis (8) DVT prophylaxis: SCDs Disposition-continued stay in the ICU, could be ready for discharge in a few days FEN-continue continuous tube feeds, switch to bolus feeds when more stable and off ventilator, IV Pepcid for GI prophylaxis Admission and Anticipated Discharge Date Admission Date: August 05, 2020 Subjective patient had a good day today, no major issues reviewed the chart, reviewed labs discussed with her RN still working out issues with her home ventilator Review of Systems Review of Systems: Unobtainable due to cognitive status Physical Exam Constitutional: + thin and comfortable; no acute distress Neck: trachea midline and + tracheostomy present Respiratory: normal respiratory effort; no respiratory distress Auscultatio n: lungs clear to auscultation bilaterally Cardiovascular: RRR, no murmur, no edema Gastrointestinal (Abdomen): normal bowel sounds, soft, nontender, no hepatosplenomegaly Musculoskeletal: Head/Neck/Chest: normocephalic and head atraumatic Extremities: + muscle atrophy; + extremities abnormal to inspection (thin, contracted), no cyanosis, no clubbing and no petechiae Skin: no rashes, warm and dry Results & Data Results & Data ([facility]) Vital Signs (Past 12 Hours) Vital Signs Temp Pulse Pulse Resp BP Pulse Ox 08/13/20 20:35 95 H 08/13/20 20:04 108 H 27 H 95 08/13/20 19:32 109 H 20 93 08/13/20 19:00 36.7 C 92 H 25 H 122/85 93 08/13/20 18:00 100 H 24 122/77 95 08/13/20 17:00 105 H 28 H 115/86 92 08/13/20 16:00 36.6 C 101 H 20 114/70 96 08/13/20 15:46 106 H 27 H 113/83 97 08/13/20 15:20 108 H 26 H 97 08/13/20 15:00 108 H 21 116/87 94 08/13/20 14:00 110 H 30 H 116/81 93 08/13/20 13:00 100 H 27 H 109/84 95 08/13/20 12:00 37.7 C H 102 H 30 H 102/81 97 08/13/20 11:46 104 H 26 H 98 08/13/20 11:00 100 H 28 H 110/79 95 08/13/20 10:00 104 H 28 H 115/77 93 08/13/20 09:45 106 H 31 H 113/84 96 Laboratory Results Laboratory Results - last 24 hr 08/13/20 08/13/20 08/13/20 05:06 05:06 05:23 WBC 7.07 RBC 3.50 L Hgb 11.5 L Hct 34.3 L MCV 98.0 MCH 32.9 MCHC 33.5 RDW Std Deviation 46.2 RDW Coeff of [place]quito 13.1 Plt Count 287 MPV 8.4 Immature Gran % (Auto) 1.8 Neut % (Auto) 74.4 Lymph % (Auto) 10.6 [place] % (Auto) 12.3 Eos % (Auto) 0.8 Baso % (Auto) 0.1 Neut # (Auto) 5.25 Lymph # (Auto) 0.75 L [place] # (Auto) 0.87 H Eos # (Auto) 0.06 Baso # (Auto) 0.01 Immature Gran # (Auto) 0.13 H Sodium 138 Potassium 4.6 D Chloride 106 Carbon Dioxide 26 Anion Gap 6.0 BUN 7 Creatinine 0.51 L Est Cr Clr Drug Dosing 144.1 Est GFR ( Amer) > 150.0 Est GFR (Non-Af Amer) 135.5 BUN/Creatinine Ratio 14.2 Glucose 87 Calcium 9.2 Phosphorus 5.1 H D Magnesium 2.4 Valproic Acid 55 Medications Administered Current Inpatient Medications Acetaminophen (Acetaminophen Susp 325 Mg/10.15 Ml Udc) 650 mg PO Q6H PRN PRN Reason: Fever Stop: 09/04/20 09:48 Last Admin: 08/13/20 13:25 Dose: 650 mg Documented by: Albuterol (Albut/Ipratrop 3mg/0.5mg Neb 3 Ml Vial) 3 ml NEB Q4R [facility] Stop: 09/06/20 22:59 Last Admin: 08/13/20 19:24 Dose: 3 ml Documented by: Baclofen (Baclofen 20 Mg Tab) 20 mg PEG TID [facility] Stop: 09/04/20 08:59 Last Admin: 08/13/20 20:11 Dose: 20 mg Documented by: Budesonide (Budesonide 0.5 Mg/2 Ml Vial (Pulmicort)) 0.25 mg INH BIDR [facility] Stop: 09/07/20 18:59 Last Admin: 08/13/20 19:23 Dose: Not Given Documented by: Clonazepam (Clonazepam 0.5 Mg Tab) 0.5 mg PO DAILY PRN PRN Reason: PROLONGED SEIZURES Stop: 09/04/20 08:59 Last Admin: 08/11/20 08:58 Dose: 0.5 mg Documented by: Fluoxetine HCl (Fluoxetine Hcl 20 Mg/5 Ml Udp) 20 mg GT DAILY [facility] Stop: 09/04/20 08:59 Last Admin: 08/13/20 08:15 Dose: 20 mg Documented by: Guaifenesin (Guaifenesin Sugar Free 200 Mg/10 Ml Udc) 400 mg PEG Q4 [facility] Stop: 09/08/20 11:59 Last Admin: 08/13/20 20:11 Dose: 400 mg Documented by: Piperacillin Sod/Tazobactam (Sod 4.5 gm/ Dextrose) 120 mls @ 30 mls/hr IV Q8H [facility]; Protocol Stop: 08/15/20 03:59 Last Infusion: 08/13/20 20:13 Dose: Infused Documented by: Tobramycin Sulfate 380 mg/ (Dextrose) 109.5 mls @ 100 mls/hr IV Q18H [facility] Stop: 08/15/20 03:59 Last Infusion: 08/13/20 09:16 Dose: Infused Documented by: Miscellaneous Information (Piperacill/Tazobac Consult Active) 1 ea N/A UD PRN PRN Reason: Consult Stop: 09/04/20 01:27 Miscellaneous Information (Tobramycin Consult Active) 1 ea N/A UD PRN PRN Reason: Consult Stop: 09/05/20 08:15 Last Admin: 08/11/20 01:47 Dose: 1 ea Documented by: Polyethylene Glycol (Polyethylene (Miralax) 17 Gm Pack) 8.5 gm PEG DAILY PRN PRN Reason: Constipation Stop: 09/04/20 02:20 Sterile Water (Tube Feeding Water Flush) 120 ml NG QID@07,1130,15,19 [facility] Stop: 09/04/20 06:59 Last Admin: 08/13/20 19:09 Dose: 120 ml Documented by: Valproic Acid (Valproic Acid Solution 250mg/5ml) 300 mg PO TID [facility] Stop: 09/08/20 13:59 Last Admin: 08/13/20 20:12 Dose: 300 mg Documented by: Zonisamide (Zonisamide 100 Mg Caps) 2 ea PO QAM [facility] Stop: 09/04/20 08:59 Last Admin: 08/13/20 08:16 Dose: 2 ea Documented by: Zonisamide (Zonisamide 100 Mg Caps) 1 ea PO HS [facility] Stop: 09/04/20 20:59 Last Admin: 08/13/20 20:12 Dose: 1 ea Documented by: PG Care Time/CCT Total # of Minutes Spent Total Time Spent with Patient: Total time spent is greater than 50% in coordination of care (as documented) at patient's floor/unit and/or counseling patient: Coding Level of Care Code 25278 Subseq Hosp Care Lvl 2 Diagnoses Sepsis A41.9 Acute on chronic respiratory failure with hypoxemia J96.21 Pneumonia J18.9 Laterality: left Lung location: lower lobe of lung Pneumonia type: due to unspecified organism Quadriplegic cerebral palsy G80.8 Seizure disorder G40.909 Thrombocytopenia D69.6 Abnormal LFTs R94.5 DVT prophylaxis Z29.9 (1) Pneumonia Laterality: left Lung location: lower lobe of lung Pneumonia type: due to unspecified organism Qualified Code(s): J18.9 - Pneumonia, unspecified organism
[2020-08-14] MEDS ORDERED: [UNRECOGNIZED DRUG - OTHER] ONE (01:30)
[2020-08-14] MEDS: TOBRAMYCIN SULFATE IV SCH ×2 (02:11→20:18)
[2020-08-14] MEDS: DEXTROSE 5% IV SCH ×2 (02:11→20:18)
[2020-08-14] MEDS: ALBUT/IPRATROP 3MG/0.5MG NEB 3 ML VIAL NEB SCH ×4 (03:23→19:06)
[2020-08-14] MEDS: guaiFENesin SUGAR FREE 200 MG/10 ML UDC PEG SCH ×5 (04:00→20:19)
[2020-08-14 05:53] LABS: Blood Urea Nitrogen 11 mg/dl (7-18); Calcium 9.2 mg/dl (8.5-10.1); Carbon Dioxide 26 mmol/L (21-32); Chloride 106 mmol/L (98-107); Est GFR (African American) > 150.0 ml/min; Est GFR (Non-African American) 130.7 ml/min; Glucose 93 mg/dl (70-99); Magnesium 2.4 mg/dl (1.8-2.4); Potassium 4.2 mmol/L (3.5-5.1); Sodium 137 mmol/L (136-145)
[2020-08-14 05:54] LABS: Phosphorus 4.8 mg/dl (2.5-4.9)
[2020-08-14 05:58] LABS: Basophils # (auto) 0.01 K/uL (0-0.2); Basophils % (auto) 0.2 %; Eosinophils # (auto) 0.05 K/uL (0-0.5); Eosinophils % (auto) 0.8 %; Hematocrit (blood only) 36.9 % (37-47); Hemoglobin 12.3 g/dL (12.0-16.0); Immature Granulocytes # (auto) 0.12 K/uL (0.00-0.02); Immature Granulocytes % (auto) 1.9 %; Lymphocytes % (auto) 10.9 %; Mean Corpuscular Hemoglobin 33.2 pg (25-34); Mean Corpuscular Hgb Conc 33.3 g/dL (32-36); Mean Corpuscular Volume 99.7 fL (80-100); Mean Platelet Volume 8.3 fL (7.4-10.4); Monocytes # (auto) 0.92 K/uL (0.11-0.59); Monocytes % (auto) 14.3 %; Neutrophils # (auto) 4.64 K/uL (1.4-6.5); Neutrophils % (auto) 71.9 %; Platelet Count 341 K/uL (130-400); RDW Coefficient of Variation 13.1 % (11.5-14.5); RDW Standard Deviation 47.3 fL (36.4-46.3); White Blood Count 6.44 K/uL (4.8-10.8)
[2020-08-14] MEDS: ZONISAMIDE 100 MG PO SCH ×2 (08:11→20:19)
[2020-08-14] MEDS: BACLOFEN 20 MG TAB PEG SCH ×3 (08:12→20:20)
[2020-08-14] MEDS: PIPERACILLIN/TAZOBACTAM 4.5 GM in DEXTROSE 5% 100 ML IV SCH ×2 (08:12→16:47)
[2020-08-14] MEDS: VALPROIC ACID 250 MG/5 ML PO SCH ×3 (08:13→20:19)
[2020-08-14] MEDS: TUBE FEEDING WATER FLUSH NG SCH ×4 (08:13→20:11)
--- NOTE | 2020-08-14 10:00 | Critical Care Progress Note ---
Date of Service August 14, 2020 Assessment & Plan (1) Acute on chronic respiratory failure with hypoxemia: Reason Critically Ill: 24-year-old female with chronic tracheostomy dependence who was admitted for sepsis likely pulmonary source PLAN: Neuro: Cerebral palsy -Continue reduced dose of valproic acid. Valproic acid levels appropriate. Pharmacy is assisting in management. Continue her home seizure medication otherwise. Resp: She has required numerous bronchoscopies this hospital admission due to refractory mucous plugging of her left lung. Continue Mucinex 1200 mg twice daily. Continue albuterol nebs every 6 hours decreased from every 4 and vest percussive therapy 4 times a day. Continue tobramycin IV and Zosyn IV for pseudomonal pneumonia, x10 days with stop dates added. Mucoid impaction -Hopefully we have passed through the worst of her impaction we have removed the dornase dwight and Mucomyst nebs at this time and will contact you with the aggressive pulmonary toilet -Remove MetaNeb and then patient will be at baseline pulmonary toileting CV: No significant issues Fluids/Renal: Continue tube feeds -bolus feedings. ID: Sepsis likely secondary to bronchopneumonia. Sputum culture is notable for 2 different pseudomonal organisms that are multidrug resistant. Continue tobramycin IV and Zosyn IV. Pharmacy assisting with dosing. Continue isolation contact precautions. GI/Nutrition: LFTs have normalized. Transaminitis was possibly related to valproic acid level being elevated. Liver ultrasound reviewed with contraction of the gallbladder. HIDA scan unremarkable. Heme: Patient with low iron levels. We will hold on iron supplementation at this time given acute infection. Thrombocytopenia is resolving. Possibly sepsis mediated and anemia of chronic disease. No evidence of HLH seen as ferritin and trigly cerides were within normal limits. Endocrine: ICU hyperglycemia protocol Vascular access: Peripheral IVs Code Status: DNR/DNI in event of cardiac arrest Disposition: ICU for aggressive respiratory care -Hopeful discharge in the next 48 to 72 hours (2) Abnormal LFTs: (3) Thrombocytopenia: (4) Sepsis: (5) Multiple tracheobronchial mucus plugs: (6) Hypotension, chronic: (7) Transaminitis: Admission and Anticipated Discharge Date Admission Date: August 05, 2020 Subjective No overnight events Review of Systems Review of Systems: Unobtainable due to cognitive status Physical Exam Physical Exam: General: Alert. Skin: Warm, dry, Head: Atraumatic Ears, nose, mouth and throat: Tracheostomy in place and patent Cardiovascular: Normal peripheral perfusion Respiratory: No respiratory distress Gastrointestinal: Non distended Musculoskeletal: Bilateral contractures x4 Results & Data Results & Data ([facility]) Vital Signs (Past 12 Hours) Vital Signs Temp Pulse Resp BP Pulse Ox Pulse Ox 08/14/20 09:00 105 H 125/79 99 08/14/20 08:00 118 H 115/76 100 100 08/14/20 07:16 18 100 08/14/20 07:15 121 H 18 100 08/14/20 07:00 121 H 129/94 99 08/14/20 06:00 104 H 124/80 99 08/14/20 05:00 37.0 C 109 H 126/95 100 08/14/20 04:01 102 H 108/88 96 08/14/20 04:00 103 H 97 08/14/20 03:31 102 H 23 97 08/14/20 03:02 101 H 95 08/14/20 03:01 97 H 111/75 96 08/14/20 03:00 99 H 95 08/14/20 02:00 95 H 138/103 H 96 08/14/20 01:00 96 H 106/76 96 08/14/20 00:00 37.1 C 100 H 113/90 95 08/13/20 23:06 99 H 22 92 08/13/20 23:00 98 H 123/83 97 08/13/20 22:00 102 H 122/78 95 Coding Level of Care Code 97843 Subseq Hosp Care Lvl 3 Diagnoses Acute on chronic respiratory failure with hypoxemia J96.21 Abnormal LFTs R94.5 Thrombocytopenia D69.6 Sepsis A41.9 Multiple tracheobronchial mucus plugs T17.800A Hypotension, chronic I95.89 Transaminitis R74.01 Comment Please add ventilator management code
[2020-08-14] MEDS: BUDESONIDE 0.5 MG/2 ML VIAL (PULMICORT) INH SCH (10:27)
--- NOTE | 2020-08-14 11:05 | Pharmacy Report ---
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 Stop dates appropriate. * SCr with slight elevation today, up to 0.57 mg/dL Tobramycin * Receiving 380mg (~7mg/kg) IV Q 18 hrs * Trough remains undetectable today, which is appropriate for the extended interval regimen, and provides further justification that the q18h interval remains reasonable at this time Plan * Continue tobramycin 380 mg IV q18h, with appropriate stop date of tomorrow Pharmacy will continue to follow and will adjust dose/frequency as necessary. Thank you.
[2020-08-14] MEDS: clonazePAM 0.5 MG TAB PO PRN (14:51)
[2020-08-14] MEDS ORDERED: VALPROIC ACID 50 MG/ML UDP PO SCH (21:00)
--- NOTE | 2020-08-14 23:11 | Hospitalist Progress Note ---
Date of Service August 14, 2020 Assessment & Plan (1) Sepsis: Presented with fevers, acute on chronic respiratory failure with hypoxemia, tachycardia, tachypnea, thrombocytopenia and transaminitis. With pneumonia evident on imaging of the chest CT upon admission with extensive left lower lobe airspace opacity and moderate right lower lobe airspace opacity as well as secretions in the distal left mainstem bronchus extending into the left lower lobe bronchi Continues intermittently on ventilator at nighttime and trach collar during the day, but has had recurrent issues with white out of left lung on chest x-ray with worsening resp distress and severe hypoxia on 08/07 requiring urgent bro nchoscopy for suctioning of massive amounts of sputum. 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 Sputum growing 2 kinds of resistant Pseudomonas-both sensitive to Zosyn Continue IV Zosyn and IV tobramycin no true fever today hepatitis panel negative for A, B, and C, CMV negative, EBV titers indicative of previous infection Follow blood cultures-NGTD Urine culture with alpha strep, not Enterococcus, UA was contaminated with epithelial cells Procalcitonin is negative WBC 7k, Cr 0.5, K normal Continue supplemental O2 via trach collar and vent as needed Follow CXR - clear, no mucous plugging -will finish antibiotics on 08/15 -Pulmonary added on dornase nebulized for significant mucoid plugging recurrence tentatively plan for discharge on (2) Acute on chronic respiratory failure with hypoxemia: Ongoing management for pneumonia as above, with intermittent requirement of ventilator Continue acetylcysteine nebulizers twice daily Continue budesonide inhaler twice daily, but discontinued hypertonic saline nebulizers due to causing excessive secretions Wean back to baseline oxygen levels as needed Has Trilogy ventilator at home -Continue nebulized dornase as above (3) Pneumonia: As above (4) Quadriplegic cerebral palsy: Continue supportive treatment Continue clonazepam as needed, baclofen (5) Seizure disorder: Continue valproic acid at lower dose-valproic acid level here was elevated and with elevated LFTs upon admission Continue zonisamide valproic acid is 55 today (6) Thrombocytopenia: Platelets were severely low at 28,000 and now back to normal, 287 today Peripheral smear without evidence of malignancy, no cytoplasmic inclusion bodies that would be consistent with anaplasmosis Likely related to sepsis and is improving now with treatment of infection (7) Abnormal LFTs: Peaked in the 200s for AST and ALT, bilirubin is normal-now resolved CT abdomen/pelvis with normal liver and mildly enlarged spleen Right upper quadrant ultrasound performed does show normal echotexture of the liver, gallbladder is contracted and appears thick-walled and heterogenous but no shadowing gallstones are identified GI consultation appreciated HIDA scan negative -CMV negative, EBV, acute hepatitis panel negative Held valproic acid as this level was elevated and could be contributing- restarted at a lower dose Likely secondary to sepsis (8) DVT prophylaxis: SCDs Disposition-continued stay in the ICU, could be ready for discharge in a few days FEN-continue continuous tube feeds, switch to bolus feeds when more stable and off ventilator, IV Pepcid for GI prophylaxis Admission and Anticipated Discharge Date Admission Date: August 05, 2020 Subjective tolerating treatment, last dose of IV antibiotics is tomorrow Review of Systems Review of Systems: Unobtainable due to cognitive status Physical Exam Constitutional: + thin and comfortable; no acute distress Neck: trachea midline and + tracheostomy present Respiratory: normal respiratory effort; no respiratory distress Auscultation: lungs clear to auscultation bilaterally Cardiovascular: RRR, no murmur, no edema Gastrointestinal (Abdomen): normal bowel sounds, soft, nontender, no hepatosplenomegaly Musculoskeletal: Head/Neck/Chest: normocephalic and head atraumatic Extremities: + muscle atrophy; + extremities abnormal to inspection (thin, contracted), no cyanosis, no clubbing and no petechiae Skin: no rashes, warm and dry Results & Data Results & Data ([facility]) Vital Signs (Past 12 Hours) Vital Signs Temp Pulse Pulse Resp BP Pulse Ox 08/14/20 22:00 117 H 129/88 93 08/14/20 21:00 117 H 130/93 93 08/14/20 20:00 114 H 107/84 95 08/14/20 19:00 37 C 114 H 115/83 93 08/14/20 18:00 126 H 122/91 94 08/14/20 17:00 108 H 109/92 93 08/14/20 16:00 121 H 109/75 90 08/14/20 15:00 129 H 133/80 93 08/14/20 14:00 122 H 131/87 98 08/14/20 13:08 115 H 20 91 08/14/20 13:02 112 H 116/84 83 L 08/14/20 12:01 114 H 111/87 98 08/14/20 12:00 111 H 97 Laboratory Results Laboratory Results - last 24 hr 08/14/20 08/14/20 08/14/20 01:35 05:18 05:18 WBC 6.44 RBC 3.70 L Hgb 12.3 Hct 36.9 L MCV 99.7 MCH 33.2 MCHC 33.3 RDW Std Deviation 47.3 H RDW Coeff of [place] 13.1 Plt Count 341 MPV 8.3 Immature Gran % (Auto) 1.9 Neut % (Auto) 71.9 Lymph % (Auto) 10.9 [place] % (Auto) 14.3 Eos % (Auto) 0.8 Baso % (Auto) 0.2 Neut # (Auto) 4.64 Lymph # (Auto) 0.70 L [place] # (Auto) 0.92 H Eos # (Auto) 0.05 Baso # (Auto) 0.01 Immature Gran # (Auto) 0.12 H Sodium 137 Potassium 4.2 Chloride 106 Carbon Dioxide 26 Anion Gap 5.0 BUN 11 D Creatinine 0.57 L Est Cr Clr Drug Dosing 126.0 Est GFR ( Amer) > 150.0 Est GFR (Non-Af Amer) 130.7 BUN/Creatinine Ratio 19.0 Glucose 93 Calcium 9.2 Phosphorus 4.8 Magnesium 2.4 Tobramycin Trough < 0.30 Medications Administered Current Inpatient Medications Acetaminophen (Acetaminophen Susp 325 Mg/10.15 Ml Udc) 650 mg PO Q6H PRN PRN Reason: Fever Stop: 09/04/20 09:48 Last Admin: 08/13/20 13:25 Dose: 650 mg Documented by: Albuterol (Albut/Ipratrop 3mg/0.5mg Neb 3 Ml Vial) 3 ml NEB Q6R [facility] Stop: 09/13/20 12:59 Last Admin: 08/14/20 19:06 Dose: 3 ml Documented by: Baclofen (Baclofen 20 Mg Tab) 20 mg PEG TID [facility] Stop: 09/04/20 08:59 Last Admin: 08/14/20 20:20 Dose: 20 mg Documented by: Clonazepam (Clonazepam 0.5 Mg Tab) 0.5 mg PO DAILY PRN PRN Reason: PROLONGED SEIZURES Stop: 09/04/20 08:59 Last Admin: 08/14/20 14:51 Dose: 1 mg Documented by: Fluoxetine HCl (Fluoxetine Hcl 20 Mg/5 Ml Udp) 20 mg GT DAILY [facility] Stop: 09/04/20 08:59 Last Admin: 08/14/20 08:12 Dose: 20 mg Documented by: Guaifenesin (Guaifenesin Sugar Free 200 Mg/10 Ml Udc) 400 mg PEG Q4 [facility] Stop: 09/08/20 11:59 Last Admin: 08/14/20 20:19 Dose: 400 mg Documented by: Piperacillin Sod/Tazobactam (Sod 4.5 gm/ Dextrose) 120 mls @ 30 mls/hr IV Q8H [facility]; Protocol Stop: 08/15/20 03:59 Last Admin: 08/14/20 16:47 Dose: 30 mls/hr Documented by: Tobramycin Sulfate 380 mg/ (Dextrose) 109.5 mls @ 100 mls/hr IV Q18H [facility] Stop: 08/15/20 03:59 Last Admin: 08/14/20 20:18 Dose: 100 mls/hr Documented by: Miscellaneous Information (Piperacill/Tazobac Consult Active) 1 ea N/A UD PRN PRN Reason: Consult Stop: 09/04/20 01:27 Miscellaneous Information (Tobramycin Consult Active) 1 ea N/A UD PRN PRN Reason: Consult Stop: 09/05/20 08:15 Last Admin: 08/11/20 01:47 Dose: 1 ea Documented by: Polyethylene Glycol (Polyethylene (Miralax) 17 Gm Pack) 8.5 gm PEG DAILY PRN PRN Reason: Constipation Stop: 09/04/20 02:20 Sterile Water (Tube Feeding Water Flush) 120 ml NG QID@07,1130,15,19 [facility] Stop: 09/04/20 06:59 Last Admin: 08/14/20 20:11 Dose: 120 ml Documented by: Valproic Acid (Valproic Acid Solution 250mg/5ml) 300 mg PO TID [facility] Stop: 08/15/20 14:01 Last Admin: 06/22/21 20:19 Dose: 300 mg Documented by: Valproic Acid (Valproic Acid 50 Mg/Ml Udp) 300 mg PO TID [facility] Stop: 09/14/20 20:59 Zonisamide (Zonisamide 100 Mg Caps) 2 ea PO QAM [facility] Stop: 09/04/20 08:59 Last Admin: 08/14/20 08:11 Dose: 2 ea Documented by: Zonisamide (Zonisamide 100 Mg Caps) 1 ea PO HS [facility] Stop: 09/04/20 20:59 Last Admin: 08/14/20 20:19 Dose: 1 ea Documented by: PG Care Time/CCT Total # of Minutes Spent Total Time Spent with Patient: Total time spent is greater than 50% in coordination of care (as documented) at patient's floor/unit and/or counseling patient: Coding Level of Care Code 65745 Subseq Hosp Care Lvl 2 Diagnoses Sepsis A41.9 Acute on chronic respiratory failure with hypoxemia J96.21 Pneumonia J18.9 Laterality: left Lung location: lower lobe of lung Pneumonia type: due to unspecified organism Quadriplegic cerebral palsy G80.8 Seizure disorder G40.909 Thrombocytopenia D69.6 Abnormal LFTs R94.5 DVT prophylaxis Z29.9 (1) Pneumonia Laterality: left Lung location: lower lobe of lung Pneumonia type: due to unspecified organism Qualified Code(s): J18.9 - Pneumonia, unspecified organism
[2020-08-15] MEDS: PIPERACILLIN/TAZOBACTAM 4.5 GM in DEXTROSE 5% 100 ML IV SCH (00:16)
[2020-08-15] MEDS: guaiFENesin SUGAR FREE 200 MG/10 ML UDC PEG SCH ×6 (00:16→20:37)
[2020-08-15] MEDS: ALBUT/IPRATROP 3MG/0.5MG NEB 3 ML VIAL NEB SCH ×4 (00:47→19:13)
[2020-08-15 05:52] LABS: Eosinophils # (auto) 0.02 K/uL (0-0.5); Eosinophils % (auto) 0.2 %; Hematocrit (blood only) 35.8 % (37-47); Hemoglobin 11.9 g/dL (12.0-16.0); Immature Granulocytes # (auto) 0.12 K/uL (0.00-0.02); Immature Granulocytes % (auto) 1.4 %; Lymphocytes # (auto) 0.66 K/uL (1.2-3.4); Mean Corpuscular Hemoglobin 32.6 pg (25-34); Mean Corpuscular Hgb Conc 33.2 g/dL (32-36); Mean Corpuscular Volume 98.1 fL (80-100); Mean Platelet Volume 8.2 fL (7.4-10.4); Monocytes # (auto) 1.07 K/uL (0.11-0.59); Monocytes % (auto) 12.9 %; Neutrophils # (auto) 6.41 K/uL (1.4-6.5); Neutrophils % (auto) 77.5 %; Platelet Count 276 K/uL (130-400); RDW Standard Deviation 46.8 fL (36.4-46.3); Red Blood Count 3.65 M/uL (4.2-5.4); White Blood Count 8.28 K/uL (4.8-10.8)
[2020-08-15 06:32] LABS: BUN Creatinine Ratio 20.5 (10-20); Blood Urea Nitrogen 11 mg/dl (7-18); Calcium 8.9 mg/dl (8.5-10.1); Carbon Dioxide 26 mmol/L (21-32); Chloride 106 mmol/L (98-107); Creatinine Clr Calc Pharmacy 124.8 ml/min; Est GFR (African American) > 150.0 ml/min; Est GFR (Non-African American) 132.2 ml/min; Glucose 96 mg/dl (70-99); Potassium 3.6 mmol/L (3.5-5.1); Sodium 137 mmol/L (136-145)
[2020-08-15] MEDS: TUBE FEEDING WATER FLUSH NG SCH ×4 (08:18→20:10)
[2020-08-15] MEDS: VALPROIC ACID 250 MG/5 ML PO SCH (08:18)
[2020-08-15] MEDS: ZONISAMIDE 100 MG PO SCH ×2 (08:18→20:38)
[2020-08-15] MEDS: BACLOFEN 20 MG TAB PEG SCH ×3 (08:19→20:37)
--- NOTE | 2020-08-15 08:35 | Critical Care Progress Note ---
Date of Service August 15, 2020 Assessment & Plan (1) Acute on chronic respiratory failure with hypoxemia: Reason Critically Ill: 24-year-old female with chronic tracheostomy dependence who was admitted for sepsis likely pulmonary source PLAN: Neuro: Cerebral palsy -Returning to 550 mg 3 times daily from 300. Valproic acid levels appropriate. Resp: She has required numerous bronchoscopies this hospital admission due to refractory mucous plugging of her left lung. Discontinue Mucinex 1200 mg twice daily. Continue albuterol nebs every 6 hours decreased from every 4 and vest percussive therapy 4 times a day. Continue tobramycin IV and Zosyn IV for pseudomonal pneumonia, x10 days with stop dates added. Mucoid impaction -It appears we have passed the worst of her impaction we have removed the dornase dwight and Mucomyst nebs at this time and she is at her baseline in terms of pulmonary therapy CV: Tachycardia: Intermittent likely at baseline Fluids/Renal: Continue tube feeds -bolus feedings. ID: Sepsis likely secondary to bronchopneumonia. Sputum culture is notable for 2 different pseudomonal organisms that are multidrug resistant. Continue tobramycin IV and Zosyn IV. Pharmacy assisting with dosing. Continue isolation contact precautions. GI/Nutrition: LFTs have normalized. Transaminitis was possibly related to valproic acid level being elevated. Liver ultrasound reviewed with contraction of the gallbladder. HIDA scan unremarkable. -Advised follow-up with neurology PCP in future regarding Depakote dosing Heme: Patient with low iron levels. We will hold on iron supplementation at this time given acute infection. Thrombocytopenia is resolving. Possibly sepsis mediated and anemia of chronic disease. No evidence of HLH seen as ferritin and triglycerides were within normal limits. Endocrine: ICU hyperglycemia protocol Vascular access: Peripheral IVs Code Status: DNR/DNI in event of cardiac arrest Disposition: ICU for aggressive respiratory care -Hopeful discharge tomorrow (2) Abnormal LFTs: (3) Thrombocytopenia: (4) Sepsis: (5) Multiple tracheobronchial mucus plugs: (6) Hypotension, chronic: (7) Transaminitis: Admission and Anticipated Discharge Date Admission Date: August 05, 2020 Subjective No overnight events no desaturation Mother was concerned of possible seizure-like activity with increased blinking yesterday we will increase her antiepileptic medication to previous dosage and encouraged follow-up with primary care/neurology given mild transient elevation in LFTs. Review of Systems Review of Systems: Unobtainable due to cognitive status Physical Exam Physical Exam: General: Alert. Skin: Warm, dry, Head: Atraumatic Ears, nose, mouth and throat: Tracheostomy in place and patent Cardiovascular: Normal peripheral perfusion Respiratory: No respiratory distress Gastrointestinal: Non distended Musculoskeletal: Bilateral contractures x4 Results & Data Results & Data ([facility]) Vital Signs (Past 12 Hours) Vital Signs Temp Pulse Pulse Resp BP Pulse Ox 08/15/20 08:15 111 H 114/78 99 08/15/20 08:00 114 H 93 08/15/20 07:40 116 H 25 H 93 08/15/20 07:00 93 H 104/74 94 08/15/20 06:00 92 H 110/76 98 08/15/20 05:00 101 H 116/77 94 08/15/20 04:00 91 H 110/76 92 08/15/20 03:00 36.9 C 101 H 126/79 94 08/15/20 02:40 16 08/15/20 02:00 99 H 134/78 94 08/15/20 01:00 99 H 128/82 95 08/15/20 00:48 105 H 16 94 08/15/20 00:00 37.0 C 103 H 115/90 96 08/14/20 23:25 111 H 08/14/20 23:00 111 H 132/90 97 08/14/20 22:11 109 H 26 H 97 08/14/20 22:00 117 H 129/88 93 08/14/20 21:00 117 H 130/93 93 Laboratory Results 08/15/20 08/15/20 Range/Units 05:22 05:22 WBC 8.28 (4.8-10.8) K/uL RBC 3.65 L (4.2-5.4) M/uL Hgb 11.9 L (12.0-16.0) g/dL Hct 35.8 L (37-47) % MCV 98.1 (80-100) fL MCH 32.6 (25-34) pg MCHC 33.2 (32-36) g/dL RDW Std Deviation 46.8 H (36.4-46.3) fL RDW Coeff of Flaquito 13.0 (11.5-14.5) % Plt Count 276 (130-400) K/uL MPV 8.2 (7.4-10.4) fL Immature Gran % (Auto) 1.4 % Neut % (Auto) 77.5 % Lymph % (Auto) 8.0 % Evans % (Auto) 12.9 % Eos % (Auto) 0.2 % Baso % (Auto) 0.0 % Neut # (Auto) 6.41 (1.4-6.5) K/uL Lymph # (Auto) 0.66 L (1.2-3.4) K/uL Evans # (Auto) 1.07 H (0.11-0.59) K/uL Eos # (Auto) 0.02 (0-0.5) K/uL Baso # (Auto) 0.00 (0-0.2) K/uL Immature Gran # (Auto) 0.12 H (0.00-0.02) K/uL Sodium 137 (136-145) mmol/L Potassium 3.6 (3.5-5.1) mmol/L Chloride 106 (98-107) mmol/L Carbon Dioxide 26 (21-32) mmol/L Anion Gap 5.0 (3-11) BUN 11 (7-18) mg/dl Creatinine 0.55 L (0.6-1.2) mg/dl Est Cr Clr Drug Dosing 124.8 ml/min Est GFR ( Amer) > 150.0 ml/min Est GFR (Non-Af Amer) 132.2 ml/min BUN/Creatinine Ratio 20.5 H (10-20) Glucose 96 (70-99) mg/dl Calcium 8.9 (8.5-10.1) mg/dl Coding Level of Care Code 39173 Subseq Hosp Care Lvl 3 Diagnoses Acute on chronic respiratory failure with hypoxemia J96.21 Abnormal LFTs R94.5 Thrombocytopenia D69.6 Sepsis A41.9 Multiple tracheobronchial mucus plugs T17.800A Hypotension, chronic I95.89 Transaminitis R74.01 Comment Please add ventilator management code
--- NOTE | 2020-08-15 09:38 | XRay Report ---
XR chest 1V portable CLINICAL HISTORY: Respiratory failure COMPARISON STUDY: 08/13/2020 FINDINGS: A tracheostomy tube is again visualized. The heart is normal in size. There is slight progr ession in the left lower lung zone atelectasis/consolidation.[ IMPRESSION: Worsening left lower lung zone atelectasis/consolidation. ACT 112: Negative or not required by law. Electronically signed by: Galen Ham M.D. 08/15/2020 9:36 AM
[2020-08-15] MEDS: DEXTROSE 5% IV SCH (14:13)
[2020-08-15] MEDS: TOBRAMYCIN SULFATE IV SCH (14:13)
[2020-08-15] MEDS: VALPROIC ACID 50 MG/ML UDP PO SCH ×2 (16:00→20:39)
[2020-08-15] MEDS ORDERED: VALPROIC ACID 50 MG/ML UDP PO SCH (21:00)
--- NOTE | 2020-08-15 23:30 | Hospitalist Progress Note ---
Date of Service August 15, 2020 Assessment & Plan (1) Sepsis: Presented with fevers, acute on chronic respiratory failure with hypoxemia, tachycardia, tachypnea, thrombocytopenia and transaminitis. With pneumonia evident on imaging of the chest CT upon admission with extensive left lower lobe airspace opacity and moderate right lower lobe airspace opacity as well as secretions in the distal left mainstem bronchus extending into the left lower lobe bronchi Continues intermittently on ventilator at nighttime and trach collar during the day, but has had recurrent issues with white out of left lung on chest x-ray with worsening resp distress and severe hypoxia on 08/07 requiring urgent bro nchoscopy for suctioning of massive amounts of sputum. 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 Sputum growing 2 kinds of resistant Pseudomonas-both sensitive to Zosyn Continue IV Zosyn and IV tobramycin no true fever today hepatitis panel negative for A, B, and C, CMV negative, EBV titers indicative of previous infection Follow blood cultures-NGTD Urine culture with alpha strep, not Enterococcus, UA was contaminated with epithelial cells Procalcitonin is negative WBC 8k Continue supplemental O2 via trach collar and vent as needed Follow CXR - clear again today, no signs of mucous plugging -off of Dornase nebulizers finish antibiotics today home tomorrow (2) Acute on chronic respiratory failure with hypoxemia: Ongoing management for pneumonia as above, with intermittent requirement of ventilator Continue acetylcysteine nebulizers twice daily Continue budesonide inhaler twice daily, but discontinued hypertonic saline ne bulizers due to causing excessive secretions Wean back to baseline oxygen levels as needed Has Trilogy ventilator at home off of nebulized Dornase, lungs are clear (3) Pneumonia: As above (4) Quadriplegic cerebral palsy: Continue supportive treatment Continue clonazepam as needed, baclofen (5) Seizure disorder: Continue valproic acid at lower dose-valproic acid level here was elevated and with elevated LFTs upon admission Continue zonisamide valproic acid is 55 when last checked follow up with neurology outpatient for Valproic acid monitoring (6) Thrombocytopenia: Platelets were severely low at 28,000 and now back to normal for several days Likely related to sepsis and is improving now with treatment of infection (7) Abnormal LFTs: Peaked in the 200s for AST and ALT, bilirubin is normal-now resolved CT abdomen/pelvis with normal liver and mildly enlarged spleen Right upper quadrant ultrasound performed does show normal echotexture of the liver, gallbladder is contracted and appears thick-walled and heterogenous but no shadowing gallstones are identified GI consultation appreciated HIDA scan negative -CMV negative, EBV, acute hepatitis panel negative Held valproic acid as this level was elevated and could be contributing- restarted at a lower dose Likely secondary to sepsis (8) DVT prophylaxis: SCDs Disposition-continued stay in the ICU, home tomorrow FEN-continue continuous tube feeds, switch to bolus feeds when more stable and off ventilator, IV Pepcid for GI prophylaxis Admission and Anticipated Discharge Date Admission Date: August 05, 2020 Subjective no major issues, chest x-ray is clear last day of antibiotics today plan for discharge tomorrow Review of Systems Review of Systems: Unobtainable due to cognitive status Physical Exam Constitutional: + thin and comfortable; no acute distress Neck: trachea midline and + tracheostomy present Respiratory: normal respiratory effort; no respiratory distress Auscultation: lungs clear to auscultation bilaterally Cardiovascular: RRR, no murmur, no edema Gastrointestinal (Abdomen): normal bowel sounds, soft, nontender, no hepatosplenomegaly Musculoskeletal: Head/Neck/Chest: normocephalic and head atraumatic Extremities: + muscle atrophy; + extremities abnormal to inspection (thin, contracted), no cyanosis, no clubbing and no petechiae Skin: no rashes, warm and dry Results & Data Results & Data ([facility]) Vital Signs (Past 12 Hours) Vital Signs Temp Pulse Pulse Pulse Resp BP Pulse Ox 08/15/20 23:00 113 H 113/79 99 08/15/20 22:37 104 H 22 98 08/15/20 22:00 108 H 113/78 97 08/15/20 21:01 117 H 120/79 94 08/15/20 21:00 115 H 90 08/15/20 20:01 36.9 C 111 H 128/89 93 08/15/20 19:50 120 H 26 H 95 08/15/20 19:18 106 H 08/15/20 19:13 91 H 91 H 22 90 08/15/20 19:00 103 H 118/84 94 08/15/20 18:00 106 H 109/74 91 08/15/20 17:00 110 H 139/88 96 08/15/20 16:00 36.8 C 105 H 123/83 94 08/15/20 15:00 103 H 118/79 93 08/15/20 14:00 117 H 116/73 92 08/15/20 13:08 106 H 106 H 97 08/15/20 13:00 96 H 112/76 94 08/15/20 12:00 38.6 C H 97 H 109/72 97 Laboratory Results Laboratory Results - last 24 hr 08/15/20 08/15/20 05:22 05:22 WBC 8.28 RBC 3.65 L Hgb 11.9 L Hct 35.8 L MCV 98.1 MCH 32.6 MCHC 33.2 RDW Std Deviation 46.8 H RDW Coeff of Flaquito 13.0 Plt Count 276 MPV 8.2 Immature Gran % (Auto) 1.4 Neut % (Auto) 77.5 Lymph % (Auto) 8.0 [place] % (Auto) 12.9 Eos % (Auto) 0.2 Baso % (Auto) 0.0 Neut # (Auto) 6.41 Lymph # (Auto) 0.66 L [place] # (Auto) 1.07 H Eos # (Auto) 0.02 Baso # (Auto) 0.00 Immature Gran # (Auto) 0.12 H Sodium 137 Potassium 3.6 Chloride 106 Carbon Dioxide 26 Anion Gap 5.0 BUN 11 Creatinine 0.55 L Est Cr Clr Drug Dosing 124.8 Est GFR ( Amer) > 150.0 Est GFR (Non-Af Amer) 132.2 BUN/Creatinine Ratio 20.5 H Glucose 96 Calcium 8.9 Medications Administered Current Inpatient Medications Acetaminophen (Acetaminophen Susp 325 Mg/10.15 Ml Udc) 650 mg PO Q6H PRN PRN Reason: Fever Stop: 09/04/20 09:48 Last Admin: 08/13/20 13:25 Dose: 650 mg Documented by: Albuterol (Albut/Ipratrop 3mg/0.5mg Neb 3 Ml Vial) 3 ml NEB Q6R KENNEDY Stop: 09/13/20 12:59 Last Admin: 08/15/20 19:13 Dose: 3 ml Documented by: Baclofen (Baclofen 20 Mg Tab) 20 mg PEG TID [facility] Stop: 09/04/20 08:59 Last Admin: 08/15/20 20:37 Dose: 20 mg Documented by: Clonazepam (Clonazepam 0.5 Mg Tab) 0.5 mg PO DAILY PRN PRN Reason: PROLONGED SEIZURES Stop: 09/04/20 08:59 Last Admin: 08/14/20 14:51 Dose: 1 mg Documented by: Fluoxetine HCl (Fluoxetine Hcl 20 Mg/5 Ml Udp) 20 mg GT DAILY KENNEDY Stop: 09/04/20 08:59 Last Admin: 08/15/20 08:19 Dose: 20 mg Documented by: Guaifenesin (Guaifenesin Sugar Free 200 Mg/10 Ml Udc) 400 mg PEG Q4 KENNEDY Stop: 09/08/20 11:59 Last Admin: 08/15/20 20:37 Dose: 400 mg Documented by: Polyethylene Glycol (Polyethylene (Miralax) 17 Gm Pack) 8.5 gm PEG DAILY PRN PRN Reason: Constipation Stop: 09/04/20 02:20 Sterile Water (Tube Feeding Water Flush) 120 ml NG QID@07,1130,15,19 [facility] Stop: 09/04/20 06:59 Last Admin: 08/15/20 20:10 Dose: 120 ml Documented by: Valproic Acid (Valproic Acid 50 Mg/Ml Udp) 550 mg PO TID KENNEDY Stop: 09/14/20 13:59 Last Admin: 08/15/20 20:39 Dose: 550 mg Documented by: Zonisamide (Zonisamide 100 Mg Caps) 2 ea PO QAM [facility] Stop: 09/04/20 08:59 Last Admin: 08/15/20 08:18 Dose: 2 ea Documented by: Zonisamide (Zonisamide 100 Mg Caps) 1 ea PO HS [facility] Stop: 09/04/20 20:59 Last Admin: 08/15/20 20:38 Dose: 1 ea Documented by: PG Care Time/CCT Total # of Minutes Spent Total Time Spent with Patient: Total time spent is greater than 50% in coordination of care (as documented) at patient's floor/unit and/or counseling patient: Coding Level of Care Code 35320 Subseq Hosp Care Lvl 2 Diagnoses Sepsis A41.9 Acute on chronic respiratory failure with hypoxemia J96.21 Pneumonia J18.9 Laterality: left Lung location: lower lobe of lung Pneumonia type: due to unspecified organism Quadriplegic cerebral palsy G80.8 Seizure disorder G40.909 Thrombocytopenia D69.6 Abnormal LFTs R94.5 DVT prophylaxis Z29.9 (1) Pneumonia Laterality: left Lung location: lower lobe of lung Pneumonia type: due to unspecified organism Qualified Code(s): J18.9 - Pneumonia, unspecified organism
[2020-08-16] MEDS: guaiFENesin SUGAR FREE 200 MG/10 ML UDC PEG SCH ×3 (00:09→07:34)
[2020-08-16] MEDS: ALBUT/IPRATROP 3MG/0.5MG NEB 3 ML VIAL NEB SCH ×2 (01:27→07:28)
[2020-08-16 05:06] LABS: Eosinophils # (auto) 0.02 K/uL (0-0.5); Eosinophils % (auto) 0.2 %; Immature Granulocytes # (auto) 0.05 K/uL (0.00-0.02); Immature Granulocytes % (auto) 0.6 %; Lymphocytes # (auto) 1.22 K/uL (1.2-3.4); Lymphocytes % (auto) 13.7 %; Mean Corpuscular Hemoglobin 33.6 pg (25-34); Mean Corpuscular Hgb Conc 33.3 g/dL (32-36); Mean Corpuscular Volume 100.8 fL (80-100); Monocytes % (auto) 10.1 %; Neutrophils # (auto) 6.72 K/uL (1.4-6.5); Neutrophils % (auto) 75.4 %; Platelet Count 306 K/uL (130-400); RDW Standard Deviation 47.3 fL (36.4-46.3); Red Blood Count 3.87 M/uL (4.2-5.4); White Blood Count 8.91 K/uL (4.8-10.8)
[2020-08-16 06:00] LABS: BUN Creatinine Ratio 25.6 (10-20); Blood Urea Nitrogen 12 mg/dl (7-18); Calcium 9.4 mg/dl (8.5-10.1); Carbon Dioxide 29 mmol/L (21-32); Chloride 105 mmol/L (98-107); Est GFR (African American) > 150.0 ml/min; Est GFR (Non-African American) 139.2 ml/min; Glucose 93 mg/dl (70-99); Magnesium 2.3 mg/dl (1.8-2.4); Phosphorus 4.4 mg/dl (2.5-4.9); Potassium 4.2 mmol/L (3.5-5.1); Sodium 136 mmol/L (136-145)
--- NOTE | 2020-08-16 06:41 | XRay Report ---
XR chest 1V portable HISTORY: 24 years-old Female Resp failure acute respiratory failure COMPARISON: Chest radiograph 08/15/2020 TECHNIQUE: Portable AP view of the chest FINDINGS: Tracheostomy cannula is in stable positioning. The patient is slightly rotated. Cardiac mediastinal a nd hilar silhouettes are within normal limits. No pneumothorax, large pleural effusion or overt pulmo nary edema. Mild persistent linear left lung base opacities. Gastrostomy tube noted. Bones appear derek ssly intact. IMPRESSION: Mild persistent linear left lung base opacities suggestive of atelectasis. ACT 112: Negative or not required by law. The above report was generated using voice recognition software. It may contain grammatical, syntax o r spelling errors. Electronically signed by: Ervin Townsend M.D. 08/16/2020 6:40 AM
--- NOTE | 2020-08-16 07:01 | Critical Care Progress Note ---
Date of Service August 16, 2020 Assessment & Plan (1) Acute on chronic respiratory failure with hypoxemia: Reason Critically Ill: 24-year-old female with chronic tracheostomy dependence who was admitted for sepsis likely pulmonary source PLAN: Neuro: Cerebral palsy -Valproic acid: 550 mg 3 times daily from 300. Valproic acid levels appropriate. Resp: She has required numerous bronchoscopies this hospital admission due to refractory mucous plugging of her left lung. Discontinue Mucinex 1200 mg twice daily. Continue albuterol nebs every 6 hours decreased from every 4 and vest percussive therapy 4 times a day. Completed 10 days tobramycin IV and Zosyn IV for pseudomonal pneumonia Mucoid impaction -No evidence of mucoid impaction and no bronchoscopy in 4 days CV: Tachycardia: Intermittent likely at baseline Fluids/Renal: Continue tube feeds -bolus feedings. ID: Sepsis likely secondary to bronchopneumonia. Sputum culture is notable for 2 different pseudomonal organisms that are multidrug resistant: Resolved. GI/Nutrition: LFTs have normalized. Transaminitis was possibly related to valproic acid level being elevated. Liver ultrasound reviewed with contraction of the gallbladder. HIDA scan unremarkable. -Advised follow-up with neurology PCP in future regarding Depakote dosing Heme: Patient with low iron levels. We will hold on iron supplementation at this time given acute infection. Thrombocytopenia is resolving. Possibly sepsis mediated and anemia of chronic disease. No evidence of HLH seen as ferritin and triglycerides were within normal limits. Endocrine: ICU hyperglycemia protocol Vascular access: Peripheral IVs Code Status: DNR/DNI in event of cardiac arrest Disposition: Stable for discharge (2) Abnormal LFTs: (3) Thrombocytopenia: (4) Sepsis: (5) Multiple tracheobronchial mucus plugs: (6) Hypotension, chronic: (7) Transaminitis: Admission and Anticipated Discharge Date Admission Date: August 05, 2020 Subjective No overnight events, appears at baseline Review of Systems Review of Systems: Unobtainable due to cognitive status Physical Exam Physical Exam: General: Alert. Skin: Warm, dry, Head: Atraumatic Ears, nose, mouth and throat: Tracheostomy in place and patent Cardiovascular: Normal peripheral perfusion Respiratory: No respiratory distress Gastrointestinal: Non distended Musculoskeletal: Bilateral contractures x4 Results & Data Results & Data ([facility]) Vital Signs (Past 12 Hours) Vital Signs Temp Pulse Pulse Pulse Resp BP Pulse Ox 08/16/20 06:18 110 H 114/75 100 08/16/20 06:00 113 H 97 08/16/20 05:00 111 H 126/88 100 08/16/20 04:30 37.1 C 102 H 97 08/16/20 04:00 98 H 117/81 99 08/16/20 03:26 90 17 100 08/16/20 03:00 98 H 122/93 100 08/16/20 02:00 100 H 119/87 97 08/16/20 01:28 88 17 90 08/16/20 01:00 36.7 C 86 116/75 99 08/16/20 00:00 97 H 112/77 97 08/15/20 23:59 36.8 C 08/15/20 23:00 113 H 113/79 99 08/15/20 22:37 104 H 22 98 08/15/20 22:00 108 H 113/78 97 08/15/20 21:01 117 H 120/79 94 08/15/20 21:00 115 H 90 08/15/20 20:01 36.9 C 111 H 128/89 93 08/15/20 19:50 120 H 26 H 95 08/15/20 19:18 106 H 08/15/20 19:13 91 H 91 H 22 90 Laboratory Results 08/16/20 08/16/20 Range/Units 04:54 04:54 WBC 8.91 (4.8-10.8) K/uL RBC 3.87 L (4.2-5.4) M/uL Hgb 13.0 (12.0-16.0) g/dL Hct 39.0 (37-47) % MCV 100.8 H (80-100) fL MCH 33.6 (25-34) pg MCHC 33.3 (32-36) g/dL RDW Std Deviation 47.3 H (36.4-46.3) fL RDW Coeff of [place]quito 13.0 (11.5-14.5) % Plt Count 306 (130-400) K/uL MPV 8.0 (7.4-10.4) fL Immature Gran % (Auto) 0.6 % Neut % (Auto) 75.4 % Lymph % (Auto) 13.7 % [place]son % (Auto) 10.1 % Eos % (Auto) 0.2 % Baso % (Auto) 0.0 % Neut # (Auto) 6.72 H (1.4-6.5) K/uL Lymph # (Auto) 1.22 (1.2-3.4) K/uL [place]son # (Auto) 0.90 H (0.11-0.59) K/uL Eos # (Auto) 0.02 (0-0.5) K/uL Baso # (Auto) 0.00 (0-0.2) K/uL Immature Gran # (Auto) 0.05 H (0.00-0.02) K/uL Sodium 136 (136-145) mmol/L Potassium 4.2 D (3.5-5.1) mmol/L Chloride 105 (98-107) mmol/L Carbon Dioxide 29 (21-32) mmol/L Anion Gap 2.0 L (3-11) BUN 12 (7-18) mg/dl Creatinine 0.47 L (0.6-1.2) mg/dl Est Cr Clr Drug Dosing 144.0 ml/min Est GFR ( Amer) > 150.0 ml/min Est GFR (Non-Af Amer) 139.2 ml/min BUN/Creatinine Ratio 25.6 H (10-20) Glucose 93 (70-99) mg/dl Calcium 9.4 (8.5-10.1) mg/dl Phosphorus 4.4 (2.5-4.9) mg/dl Magnesium 2.3 (1.8-2.4) mg/dl Coding Level of Care Code 56586 Subseq Hosp Care Lvl 3 Diagnoses Acute on chronic respiratory failure with hypoxemia J96.21 Abnormal LFTs R94.5 Thrombocytopenia D69.6 Sepsis A41.9 Multiple tracheobronchial mucus plugs T17.800A Hypotension, chronic I95.89 Transaminitis R74.01 Comment Please add ventilator management code
[2020-08-16] MEDS: TUBE FEEDING WATER FLUSH NG SCH (07:34)
[2020-08-16] MEDS: BACLOFEN 20 MG TAB PEG SCH (07:34)
[2020-08-16] MEDS: VALPROIC ACID 50 MG/ML UDP PO SCH (07:35)
[2020-08-16] MEDS: ZONISAMIDE 100 MG PO SCH (07:35)
--- NOTE | 2020-08-16 09:02 | Discharge Summary ---
Date of Service August 16, 2020 Admission HPI Per Admitting Provider The patient herself is unable to contribute to her HPI or review of systems. Her mother, who is present in the room, reports that usually when she is sick she does not have a temperature, as she did this time at home. She has not had a significant increase in her secretions, as noted by her mother. As I discussed with her mother this evening, with the patient having lower blood pressure than normal, having abnormal liver tests which is uncommon for her, and low platelets which is also uncommon for her, that she appears to be septic, and will be admitted to the ICU for further care Principal Diagnosis Pneumonia, Pseudomonas infection Discharge Exam Constitutional + thin and comfortable; no acute distress Neck trachea midline and + tracheostomy present Respiratory normal respiratory effort; no respiratory distress Auscultation: lungs clear to auscultation bilaterally Cardiovascular RRR, no murmur, no edema Gastrointestinal (Abdomen) normal bowel sounds, soft, nontender, no hepatosplenomegaly Musculoskeletal Head/Neck/Chest: normocephalic and head atraumatic Extremities: + muscle atrophy; + extremities abnormal to inspection (thin, contracted), no cyanosis, no clubbing and no petechiae Skin no rashes, warm and dry Discharge Data Allergies Allergy/AdvReac Type Severity Reaction Status Date / Time No Known Allergies Allergy Verified 08/04/20 22:11 Consultations 08/04/20 23:48 ED Decision to Admit Stat 08/05/20 02:21 Consult Solution Sales Senior Executive Routine 08/06/20 10:20 Consult Gastroenterology Routine Ordered Studies 08/05/20 01:28 CT abd pelvis wo con Urgent CT chest diagnostic wo con Urgent 08/06/20 10:52 US liver Urgent Hospital Course (1) Sepsis: Presented with fevers, acute on chronic respiratory failure with hypoxemia, tachycardia, tachypnea, thrombocytopenia and transaminitis. With pneumonia evident on imaging of the chest CT upon admission with extensive left lower lobe airspace opacity and moderate right lower lobe airspace opacity as well as secretions in the distal left mainstem bronchus extending into the left lower lobe bronchi Continues intermittently on ventilator at nighttime and trach collar during the day, but has had recurrent issues with white out of left lung on chest x-ray with worsening resp distress and severe hypoxia on 08/07 requiring urgent bronchoscopy for suctioning of massive amounts of sputum. The same thing happen ed again on the morning of 08/10 and the evening of 08/10, as well as the morning of 08/12 no major issues today, hopeful that she will not need further bronchoscopy for mucous plugging Appreciate solutions executive security/pulmonology consultation Sputum growing 2 kinds of resistant Pseudomonas-both sensitive to Zosyn completed full course of IV Zosyn and IV tobramycin hepatitis panel negative for A, B, and C, CMV negative, EBV titers indicative of previous infection Follow blood cultures-NGTD Urine culture with alpha strep, not Enterococcus, UA was contaminated with epithelial cells Procalcitonin is negative WBC 8k Continue supplemental O2 via trach collar and vent as needed Follow CXR - clear again today, no signs of mucous plugging -off of Dornase nebulizers d/c to home today (2) Acute on chronic respiratory failure with hypoxemia: Ongoing management for pneumonia as above, with intermittent requirement of ventilator Continue acetylcysteine nebulizers twice daily Continue budesonide inhaler twice daily, but discontinued hypertonic saline nebulizers due to causing excessive secretions Wean back to baseline oxygen levels as needed Has Trilogy ventilator at home off of nebulized Dornase, lungs are clear (3) Pneumonia: As above (4) Quadriplegic cerebral palsy: Continue supportive treatment Continue clonazepam as needed, baclofen (5) Seizure disorder: Continue valproic acid at lower dose-valproic acid level here was elevated and with elevated LFTs upon admission Continue zonisamide valproic acid is 55 when last checked follow up with neurology outpatient for Valproic acid monitoring (6) Thrombocytopenia: Platelets were severely low at 28,000 and now back to normal for several days Likely related to sepsis and is improving now with treatment of infection (7) Abnormal LFTs: Peaked in the 200s for AST and ALT, bilirubin is normal-now resolved CT abdomen/pelvis with normal liver and mildly enlarged spleen Right upper quadrant ultrasound performed does show normal echotexture of the liver, gallbladder is contracted and appears thick-walled and heterogenous but no shadowing gallstones are identified GI consultation appreciated HIDA scan negative -CMV negative, EBV, acute hepatitis panel negative Held valproic acid as this level was elevated and could be contributing- restarted at a lower dose Likely secondary to sepsis Total Time Total Time Spent Total Time Spent (In Minutes): 31 Total Time Includes: Examination of the Patient, Discharge Planning and Medication Reconciliation Discharge Plan Discharge Items Patient Disposition: Home - Home Health Services Reason For Visit: SEPSIS, PNEUMONIA, ABNORMAL LFT'S, LOW PLATELETS Discharge Diagnosis: Pneumonia, mucous plugging Pseudomonas infection Condition on Discharge: Good Goals: continue care at home follow up with neurologist for valproic acid monitoring Activity: Resume your previous activity Non-emergency contact: Primary Care Provider and Neurologist Call non-emergency contact if: you have any medication questions, your symptoms worsen and you have a fever Follow-up/Referrals: Janet Pearce MD [Primary Care Provider] - 08/22/20 10:00 am (one week) Diet: Other - See Diet Comment Diet Comment: continue tube feeds Addtl Attending Provider Instructions: Medications: no changes Pneumonia, mucous plugging, Pseudomonas infection multiple bronchoscopies and Dornase nebulized treatments, lungs have been clear and Chest x-ray has been clear all week completed full course of antibiotics on 08/15 Seizure disorder: Valproic acid level is 55 when last checked continue 550mg TID follow up with neurology as outpatient Pending Studies at Discharge: No Stand-Alone Forms: My [facility] Care Team Connect, Smoking Cessation Medications and DC Order Prescriptions: Continued ibuprofen 100 mg/5 mL suspension See Rx Instructions PO Q6H PRN (Reason: fever or pain) Qty: 473 RF: 5 acetaminophen 160 mg/5 mL liquid 640 mg PO Q6H PRN (Reason: fever or pain) Qty: 473 RF: 5 (DME) disposable gloves Misc See Rx Instructions .ROUTE .MEDSUPPLY Qty: 100 RF: 0 (DME) Day and Night Brief, Large Misc See Rx Instructions .ROUTE .MEDSUPPLY Qty: 180 RF: 5 (DME) incontinence pad, liner, disp Pad See Rx Instructions .ROUTE .MEDSUPPLY Qty: 20 RF: 0 (DME) incontinence pad, liner, disp Pad See Rx Instructions .ROUTE .MEDSUPPLY Qty: 72 RF: 0 trazodone 50 mg tablet 50 mg feeding tube HS Qty: 90 RF: 3 (DME) Miscellaneous Medical Supply (Hospital Bed) See Rx Instructions .Route .MEDSUPPLY Qty: 1 RF: 0 nitrofurantoin macrocrystal 50 mg capsule 50 mg feeding tube DAILY Qty: 90 RF: 3 cetirizine 10 mg tablet 10 mg PO DAILY Qty: 90 RF: 3 miscellaneous medical supply Misc 1 ea miscellaneous ONCE Qty: 1 RF: 0 acetylcysteine 100 mg/mL (10 %) solution 3 ml inhalation BID Qty: 180 RF: 5 budesonide 0.5 mg/2 mL suspension for nebulization 0.5 mg inhalation BID Qty: 120 RF: 5 albuterol sulfate 2.5 mg /3 mL (0.083 %) solution for nebulization 2.5 mg inhalation Q4H PRN (Reason: Wheezing/ shortness of breath) Qty: 540 RF: 5 baclofen 20 mg tablet 20 mg feeding tube TID 30 Days Qty: 90 RF: 11 fluoxetine 20 mg tablet 20 mg feeding tube DAILY 30 Days Qty: 30 RF: 11 valproic acid (as sodium salt) 250 mg/5 mL solution 550 mg feeding tube TID 30 Days Qty: 990 RF: 11 zonisamide 100 mg capsule 200 mg feeding tube .COMPLEX 30 Days Qty: 90 RF: 11 Boost 0.04 gram- 1 kcal/mL Liquid 1.5 ea PO QID@07,1130,15,19 RF: 0 water Liquid 120 ea PO QID@07,1130,15,19 RF: 0 polyethylene glycol 3350 [Miralax] 17 gram/dose powder 8.5 g feeding tube DAILY PRN (Reason: Constipation) RF: 0 clonazepam 0.5 mg tablet,disintegrating 0.5 mg feeding tube DIRECTED PRN (Reason: PROLONGED SEIZURES) RF: 0 Xtracal Plus 14 gram-230 kcal/45 mL liquid in packet 1 ea feeding tube DAILY RF: 0 Discharge Orders: Discharge Order (Routine); Ordered 08/16/20 Ordered By: Raudel Padilla Admission Data Admit Date/Time: 08/05/20 01:26 Attending Provider: Raudel Padilla Admit Provider: Vishal Cain Primary Care Provider: Janet Pearce Other Providers: Vishal Cain ; Afshin Tariq ; Rommel Tiwari ; Lin Nunez ; Klaudia Escobar ; Chuck Pavon Other Interventions: Discharge Summary Assessment (RN) Last Done: 08/16/20 09:04 Coding Level of Care Code D/C Day Management >30 mins Diagnoses Sepsis A41.9 Acute on chronic respiratory failure with hypoxemia J96.21 Pneumonia J18.9 Laterality: left Lung location: lower lobe of lung Pneumonia type: due to unspecified organism Quadriplegic cerebral palsy G80.8 Seizure disorder G40.909 Thrombocytopenia D69.6 Abnormal LFTs R94.5
== END 2020-08-16 10:30 | disposition home health service (06) | DRG 871 ==
LOC: ED 21:24 → SUATTDRO 08-05 01:26 → 1E 08-05 01:26

== ENCOUNTER 2021-11-22 21:49 | Inpatient (IN) ==
[2021-11-22] MEDS ORDERED: SODIUM CHLORIDE 0.9% 1000ML 1,000 ML IV ONE (23:01)
[2021-11-22 23:09] LABS: INR 1.1 (0.9-1.1); Partial Thromboplastin Time 27.5 Seconds (21.0-31.0); Prothrombin Time 11.7 Seconds (9.0-12.0)
[2021-11-22] MEDS ORDERED: PIPERACILLIN/TAZOBACTAM 3.375 GM in DEXTROSE 5% 100 ML/100 ML BAG IV STA (23:24)
[2021-11-22 23:25] LABS: Alanine Aminotransferase 8 U/L (7-52); Albumin Level 4.1 gm/dl (3.4-5.0); Alkaline Phosphatase 72 U/L (34-104); Anion Gap 9 (3-11); Aspartate Aminotransferase 13 U/L (13-39); BUN Creatinine Ratio 39.1 (10-20); Bilirubin Direct 0.1 mg/dl (0-0.2); Bilirubin,Total 0.4 mg/dl (0.2-1.0); Blood Urea Nitrogen 18 mg/dl (6-23); Calcium 9.4 mg/dl (8.5-10.1); Carbon Dioxide 22 mmol/L (21-32); Chloride 101 mmol/L (98-107); Creatinine Clr Calc Pharmacy 157.3 ml/min; Est GFR (African American) > 150.0 ml/min; Est GFR (Non-African American) 138.3 ml/min; Glucose 126 mg/dl (70-99(Fasting)); Magnesium 1.8 mg/dl (1.7-2.4); Potassium 3.6 mmol/L (3.5-5.1); Sodium 132 mmol/L (136-145); Total Protein 7.7 gm/dl (6.0-8.3); Troponin I High Sensitivity < 2.3 pg/ml (0-14)
[2021-11-22 23:26] LABS: Basophils # (auto) 0.03 K/uL (0-0.2); Basophils % (auto) 0.2 %; Hematocrit (blood only) 37.8 % (34.1-44.9); Hemoglobin 13.2 g/dl (12.0-16.0); Immature Granulocytes # (auto) 0.07 K/uL (0.00-0.02); Immature Granulocytes % (auto) 0.4 %; Lymphocytes # (auto) 0.77 K/uL (1.2-3.4); Lymphocytes % (auto) 3.9 %; Mean Corpuscular Hemoglobin 34.3 pg (25.0-34.0); Mean Corpuscular Hgb Conc 34.9 g/dL (32.0-36.0); Mean Corpuscular Volume 98.2 fL (80.0-100.0); Mean Platelet Volume 9.3 fL (9.4-12.3); Monocytes # (auto) 1.61 K/uL (0.24-0.82); Monocytes % (auto) 8.2 %; Neutrophils # (auto) 17.21 K/uL (1.4-6.5); Neutrophils % (auto) 87.3 %; Platelet Count 127 K/uL (130-400); Platelet Estimate Normal (Normal); Polychromasia 1+; RDW Coefficient of Variation 12.6 % (11.5-14.5); RDW Standard Deviation 45.1 fL (36.4-46.3); Red Blood Count 3.85 M/uL (3.93-5.22); White Blood Count 19.69 K/ul (4.8-10.8)
--- NOTE | 2021-11-22 23:27 | Emergency Department Note ---
Impression & Plan Bilateral pneumonia ADMIT ED Provider Note HPI: The patient is a 26-year-old female with history of quadriplegic cerebral palsy, chronic respiratory failure, status post trach, on room air at baseline and pressure support at night, presents the emergency department with her home nurse at the bedside over concern for tachycardia and fever that was noted earlier today at home. Patient does have a history of recently diagnosed pneumonia and finished a course of 14 days of Levaquin about 7 days ago. Patient's home nurse states that the patient developed a fever earlier today, heart rate was slightly elevated therefore she was brought to the ED for further assessment. On arrival the patient is mildly tachycardic at 113, temperature is borderline at 37.6, patient is saturating at 97% on trach collar oxygen on my initial evaluation. ROS: -General: Fever, tachycardia *10 point review systems was conducted and is otherwise negative unless stated above *Outpatient medications and allergy history reviewed PE: General: Alert HEENT: Tracheostomy midline without surrounding purulence or drainage Eyes: No scleral erythema Pulmonary: Slight tachypnea, diminished breath sounds at the bilateral bases Cardio: Tachycardic rate with regular rhythm GI: Abdomen is soft, nontender : No suprapubic tenderness MSK: No evidence of trauma or malformation of the extremities, no edema mild contractures with history of cerebral palsy Skin: No evidence of rash Neuro: Alert, baseline motor deficits with history of quadriplegic cerebral palsy Psychiatric: non-agitated front desk monitor: - An order was placed for continuous cardiac monitoring - Patient was noted to be in sinus rhythm with a rate of 110 Medical Decision Making: The patient is a 26-year-old female with history of quadriplegic cerebral palsy, presents the emergency department with a chief complaint of tachycardia and fever today at home. She presents with her home nurse. On arrival here to the ED the patient does have borderline temperature at 37.6, she is mildly tachycardic. IV was established, patient was given greater than 30 cc IV fluids, blood pressure remained stable. Blood cultures drawn, lab work shows evidence of a leukocytosis greater than 19,000, no critical electrolyte abnormalities are noted, patient's hemoglobin is stable, venous blood gas shows venous pH of 7.43, PCO2 of 37. Chest x-ray does show possible bibasilar pneumonia, given the patient's significant leukocytosis in addition to borderline temperature and tachycardia, she was treated prophylactically with Zosyn and azithromycin if she does have a history of Pseudomonas pneumonia that has been recurrent. Viral panel testing is negative for COVID-19 and influenza, did return positive for enterovirus/rhinovirus. On my reassessment patient's tachycardia is improved into the 90s, blood pressure remains slightly soft in the low 100s however this is the patient's baseline according to her bedside home nurse. I discussed admission for IV antibiotics to which the patient's home nurse expressed an understanding and agreement. [facility] was consulted for admission and the patient was admitted in stable condition on trach collar oxygen. Diagnosis: 1. Bilateral pneumonia 2. Leukocytosis 3. Enterovirus/rhinovirus infection 4. 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 Seizure disorder Surgical History History of tracheostomy #6 [place] 09/10/2020 S/P percutaneous endoscopic gastrostomy (PEG) tube placement Family History Brother Asthma Other Coronary heart disease Family history non-contributory Hypertension Social History Smoking Status: Never smoker Second Hand Exposure: No; Hx Alcohol Use: No Hx Substance Use: No Preferred Language: Estonian Communication Ability: Unable Patient Placement Coordinator Required: No Beliefs That Will Affect Care: None Current Living Situation: Parent Current Living Situation Comment: parent Feels Safe at Home: Yes Assistive Devices: Oxygen - Continuous Allergies Allergies Allergy/AdvReac Type Severity Reaction Status Date / Time No Known Allergies Allergy Verified 05/13/21 13:06 Home Meds Home Medications Medication Instructions Recorded Confirmed food supplemt, lactose-reduced 1.5 ea PO QID@07,1130,15,19 07/28/18 09/27/21 0.04 gram-1 kcal/mL oral liquid (Boost) water 120 ea PO QID@07,1130,15,19 07/28/18 09/27/21 clonazepam 0.5 mg disintegrating 0.5 mg feeding tube DIRECTED 08/04/20 09/27/21 tablet PRN PROLONGED SEIZURES nut.tx.,elemental,viuhebp-hgej-dhz 1 ea feeding tube DAILY@1100 08/04/20 09/27/21 14 gram-230 kcal/45 mL liquid pkt (Xtracal Plus) cetirizine 10 mg tablet 10 mg feeding tube QAM 05/13/21 09/27/21 fluoxetine 20 mg tablet 20 mg feeding tube QDL 05/13/21 09/27/21 nitrofurantoin macrocrystal 50 mg 50 mg feeding tube QAM 05/13/21 09/27/21 capsule Previous Rx's Medication Instructions Recorded acetaminophen 160 mg/5 mL oral 640 mg (20 mL) PO Q6H PRN fever or 12/21/18 liquid pain #473 mL ibuprofen 100 mg/5 mL oral See Rx Instructions PO Q6H PRN 12/21/18 suspension fever or pain #473 mL disposable gloves #100 ea 05/12/19 incontinence pad, liner, disp #20 ea 05/12/19 Miscellaneous Medical Supply #1 ea 02/22/20 (Hospital Bed) diaper,brief,adult,disposable (Day #180 ea 10/25/20 and Night Brief, Large) nebulizers #1 ea 11/01/20 polyethylene glycol 3350 17 See Rx Instructions .Route 12/04/20 gram/dose oral powder .COMPLEX #1,530 grams trazodone 50 mg tablet 50 mg feeding tube HS #90 tabs 12/04/20 miscellaneous medical supply 1 ea miscellaneous ONCE #1 ea 12/06/20 miscellaneous medical supply 1 ea miscellaneous ONCE #1 ea 12/06/20 baclofen 20 mg tablet 20 mg feeding tube TID 30 days #90 12/26/20 tabs valproic acid (as sodium salt) 250 550 mg (11 mL) feeding tube TID 30 12/26/20 mg/5 mL oral solution days #990 mL zonisamide 100 mg capsule 200 mg feeding tube .COMPLEX 30 12/26/20 days #90 caps incontinence pad, liner, disp #75 ea 01/03/21 miscellaneous medical supply 1 ea miscellaneous ONCE #180 ea 01/03/21 miscellaneous medical supply #30 ea 01/31/21 ([place] Trache[facility] Care Tray) acetylcysteine 100 mg/mL (10 %) 3 ml inhalation BID #180 mL 04/17/21 solution albuterol sulfate 2.5 mg/3 mL 2.5 mg (3 mL) inhalation Q4H PRN 04/17/21 (0.083 %) solution for nebulization Wheezing/ shortness of breath #540 mL budesonide 0.5 mg/2 mL suspension 0.5 mg (2 mL) inhalation BID #120 09/10/21 for nebulization mL tobramycin with nebulizer 300 mg/5 300 mg (5 mL) inhalation BID 28 09/24/21 mL solution for nebulization days #280 mL levofloxacin 750 mg tablet 750 mg PO DAILY 14 days #14 tabs 10/30/21 Results & Data (ED) Vital Signs Vital Signs - 24 hr 11/22/21 21:53 11/22/21 22:08 11/22/21 22:08 Temperature 37.6 C H Temperature Source Rectal Rectal Pulse Rate 116 H Pulse Rate [Right Foot] 109 H Pulse Rate from SpO2 Sensor Respiratory Rate 31 H 36 H Blood Pressure 100/64 Blood Pressure [Right Arm] 100/64 Blood Pressure Mean 76 Blood Pressure Mean [Right Arm] 76 Pulse Oximetry 93 100 Oxygen Delivery Method Trach Collar Trach Collar Trach Collar Oxygen Flow Rate 8 7 7 Sepsis Recent Fever Within 48 Hours Yes Sepsis New/Unexplained Change in Mental Status No Sepsis Action Taken by Nursing No Action Required Pulse Oximetry Post Tiitration 98 11/22/21 22:27 11/22/21 22:27 11/22/21 22:50 Temperature 37.6 C H Temperature Source Rectal Pulse Rate Pulse Rate [Right Foot] 107 H 113 H Pulse Rate from SpO2 Sensor Respiratory Rate Blood Pressure Blood Pressure [Right Arm] 100/64 Blood Pressure Mean Blood Pressure Mean [Right Arm] 76 Pulse Oximetry 98 97 Oxygen Delivery Method Trach Collar Trach Collar Oxygen Flow Rate Sepsis Recent Fever Within 48 Hours Sepsis New/Unexplained Change in Mental Status Sepsis Action Taken by Nursing Pulse Oximetry Post Tiitration 11/22/21 23:00 11/22/21 23:30 Temperature Temperature Source Pulse Rate 107 H 108 H Pulse Rate [Right Foot] Pulse Rate from SpO2 Sensor 107 H 108 H Respiratory Rate 31 H 31 H Blood Pressure Blood Pressure [Right Arm] Blood Pressure Mean Blood Pressure Mean [Right Arm] Pulse Oximetry 98 97 Oxygen Delivery Method Oxygen Flow Rate Sepsis Recent Fever Within 48 Hours Sepsis New/Unexplained Change in Mental Status Sepsis Action Taken by Nursing Pulse Oximetry Post Tiitration Laboratory Data Result diagrams: 11/22/21 22:04 11/22/21 22:04 Lab Results 11/22/21 11/22/21 11/22/21 Range/Units 22:04 22:04 22:04 WBC 19.69 H (4.8-10.8) K/ul RBC 3.85 L (3.93-5.22) M/uL Hgb 13.2 (12.0-16.0) g/dl Hct 37.8 (34.1-44.9) % MCV 98.2 (80.0-100.0) fL MCH 34.3 H (25.0-34.0) pg MCHC 34.9 (32.0-36.0) g/dL RDW Std Deviation 45.1 (36.4-46.3) fL RDW Coeff of Flaquito 12.6 (11.5-14.5) % Plt Count 127 L (130-400) K/uL MPV 9.3 L (9.4-12.3) fL Immature Gran % (Auto) 0.4 % Neut % (Auto) 87.3 % Lymph % (Auto) 3.9 % [place] % (Auto) 8.2 % Eos % (Auto) 0.0 % Baso % (Auto) 0.2 % Neut # (Auto) 17.21 H (1.4-6.5) K/uL Lymph # (Auto) 0.77 L (1.2-3.4) K/uL [place] # (Auto) 1.61 H (0.24-0.82) K/uL Eos # (Auto) 0.00 (0-0.50) K/uL Baso # (Auto) 0.03 (0-0.2) K/uL Immature Gran # (Auto) 0.07 H (0.00-0.02) K/uL Platelet Estimate Normal (Normal) Polychromasia 1+ PT 11.7 (9.0-12.0) Seconds INR 1.1 (0.9-1.1) APTT 27.5 (21.0-31.0) Seconds PTT Ratio 1.0 VBG pH (7.36-7.41) VBG pCO2 (38-50) mmHg VBG pO2 mmHg VBG HCO3 mmol/L VBG O2 Saturation % VBG Base Excess mEq/L Sodium 132 L (136-145) mmol/L Potassium 3.6 (3.5-5.1) mmol/L Chloride 101 (98-107) mmol/L Carbon Dioxide 22 (21-32) mmol/L Anion Gap 9 (3-11) BUN 18 (6-23) mg/dl Creatinine 0.46 L (0.6-1.2) mg/dl Est Cr Clr Drug Dosing 157.3 ml/min Est GFR ( Amer) > 150.0 ml/min Est GFR (Non-Af Amer) 138.3 ml/min BUN/Creatinine Ratio 39.1 H (10-20) Glucose 126 H (70-99(Fasting)) mg/dl Lactate (0.4-2.0) mmol/L Calcium 9.4 (8.5-10.1) mg/dl Magnesium 1.8 (1.7-2.4) mg/dl Total Bilirubin 0.4 (0.2-1.0) mg/dl Direct Bilirubin 0.1 (0-0.2) mg/dl AST 13 (13-39) U/L ALT 8 (7-52) U/L Alkaline Phosphatase 72 (34-104) U/L Troponin I High Sens < 2.3 (0-14) pg/ml Total Protein 7.7 (6.0-8.3) gm/dl Albumin 4.1 (3.4-5.0) gm/dl Procalcitonin (0-0.5) ng/ml Adenovirus (PCR) (NotDetected) B. pertussis DNA (PCR) (NotDetected) B.parapertussis DNA PCR (NotDetected) C. pneumoniae DNA (PCR) (NotDetected) Coronavirus OC43 (PCR) (NotDetected) Coronavirus HKU1 (PCR) (NotDetected) Coronavirus 229E (PCR) (NotDetected) SARS-CoV-2 (PCR) (NotDetected) Coronavirus NL63 (PCR) (NotDetected) Human Metapneumovir PCR (NotDetected) Influenza Type A (PCR) (NotDetected) Influenza Type B (PCR) (NotDetected) M. pneumoniae (PCR) (NotDetected) Parainfluenza 1 (PCR) (NotDetected) Parainfluenza 2 (PCR) (NotDetected) Parainfluenza 3 (PCR) (NotDetected) Parainfluenza 4 (PCR) (NotDetected) RSV (PCR) (NotDetected) Entero/Rhino (PCR) (NotDetected) 11/22/21 11/22/21 11/23/21 Range/Units 22:04 22:38 00:01 WBC (4.8-10.8) K/ul RBC (3.93-5.22) M/uL Hgb (12.0-16.0) g/dl Hct (34.1-44.9) % MCV (80.0-100.0) fL MCH (25.0-34.0) pg MCHC (32.0-36.0) g/dL RDW Std Deviation (36.4-46.3) fL RDW Coeff of Flaquito (11.5-14.5) % Plt Count (130-400) K/uL MPV (9.4-12.3) fL Immature Gran % (Auto) % Neut % (Auto) % Lymph % (Auto) % [place] % (Auto) % Eos % (Auto) % Baso % (Auto) % Neut # (Auto) (1.4-6.5) K/uL Lymph # (Auto) (1.2-3.4) K/uL [place] # (Auto) (0.24-0.82) K/uL Eos # (Auto) (0-0.50) K/uL Baso # (Auto) (0-0.2) K/uL Immature Gran # (Auto) (0.00-0.02) K/uL Platelet Estimate (Normal) Polychromasia PT (9.0-12.0) Seconds INR (0.9-1.1) APTT (21.0-31.0) Seconds PTT Ratio VBG pH (7.36-7.41) VBG pCO2 (38-50) mmHg VBG pO2 mmHg VBG HCO3 mmol/L VBG O2 Saturation % VBG Base Excess mEq/L Sodium (136-145) mmol/L Potassium (3.5-5.1) mmol/L Chloride (98-107) mmol/L Carbon Dioxide (21-32) mmol/L Anion Gap (3-11) BUN (6-23) mg/dl Creatinine (0.6-1.2) mg/dl Est Cr Clr Drug Dosing ml/min Est GFR ( Amer) ml/min Est GFR (Non-Af Amer) ml/min BUN/Creatinine Ratio (10-20) Glucose (70-99(Fasting)) mg/dl Lactate 1.0 (0.4-2.0) mmol/L Calcium (8.5-10.1) mg/dl Magnesium (1.7-2.4) mg/dl Total Bilirubin (0.2-1.0) mg/dl Direct Bilirubin (0-0.2) mg/dl AST (13-39) U/L ALT (7-52) U/L Alkaline Phosphatase (34-104) U/L Troponin I High Sens (0-14) pg/ml Total Protein (6.0-8.3) gm/dl Albumin (3.4-5.0) gm/dl Procalcitonin 0.37 (0-0.5) ng/ml Adenovirus (PCR) Not Detected (NotDetected) B. pertussis DNA (PCR) Not Detected (NotDetected) B.parapertussis DNA PCR Not Detected (NotDetected) C. pneumoniae DNA (PCR) Not Detected (NotDetected) Coronavirus OC43 (PCR) Not Detected (NotDetected) Coronavirus HKU1 (PCR) Not Detected (NotDetected) Coronavirus 229E (PCR) Not Detected (NotDetected) SARS-CoV-2 (PCR) Not Detected (NotDetected) Coronavirus NL63 (PCR) Not Detected (NotDetected) Human Metapneumovir PCR Not Detected (NotDetected) Influenza Type A (PCR) Not Detected (NotDetected) Influenza Type B (PCR) Not Detected (NotDetected) M. pneumoniae (PCR) Not Detected (NotDetected) Parainfluenza 1 (PCR) Not Detected (NotDetected) Parainfluenza 2 (PCR) Not Detected (NotDetected) Parainfluenza 3 (PCR) Not Detected (NotDetected) Parainfluenza 4 (PCR) Not Detected (NotDetected) RSV (PCR) Not Detected (NotDetected) Entero/Rhino (PCR) DETECTED A* (NotDetected) 11/23/21 Range/Units 00:01 WBC (4.8-10.8) K/ul RBC (3.93-5.22) M/uL Hgb (12.0-16.0) g/dl Hct (34.1-44.9) % MCV (80.0-100.0) fL MCH (25.0-34.0) pg MCHC (32.0-36.0) g/dL RDW Std Deviation (36.4-46.3) fL RDW Coeff of Flaquito (11.5-14.5) % Plt Count (130-400) K/uL MPV (9.4-12.3) fL Immature Gran % (Auto) % Neut % (Auto) % Lymph % (Auto) % [place] % (Auto) % Eos % (Auto) % Baso % (Auto) % Neut # (Auto) (1.4-6.5) K/uL Lymph # (Auto) (1.2-3.4) K/uL [place] # (Auto) (0.24-0.82) K/uL Eos # (Auto) (0-0.50) K/uL Baso # (Auto) (0-0.2) K/uL Immature Gran # (Auto) (0.00-0.02) K/uL Platelet Estimate (Normal) Polychromasia PT (9.0-12.0) Seconds INR (0.9-1.1) APTT (21.0-31.0) Seconds PTT Ratio VBG pH 7.43 H (7.36-7.41) VBG pCO2 37 L (38-50) mmHg VBG pO2 71 mmHg VBG HCO3 25 mmol/L VBG O2 Saturation 93.1 % VBG Base Excess 0.5 mEq/L Sodium (136-145) mmol/L Potassium (3.5-5.1) mmol/L Chloride (98-107) mmol/L Carbon Dioxide (21-32) mmol/L Anion Gap (3-11) BUN (6-23) mg/dl Creatinine (0.6-1.2) mg/dl Est Cr Clr Drug Dosing ml/min Est GFR ( Amer) ml/min Est GFR (Non-Af Amer) ml/min BUN/Creatinine Ratio (10-20) Glucose (70-99(Fasting)) mg/dl Lactate (0.4-2.0) mmol/L Calcium (8.5-10.1) mg/dl Magnesium (1.7-2.4) mg/dl Total Bilirubin (0.2-1.0) mg/dl Direct Bilirubin (0-0.2) mg/dl AST (13-39) U/L ALT (7-52) U/L Alkaline Phosphatase (34-104) U/L Troponin I High Sens (0-14) pg/ml Total Protein (6.0-8.3) gm/dl Albumin (3.4-5.0) gm/dl Procalcitonin (0-0.5) ng/ml Adenovirus (PCR) (NotDetected) B. pertussis DNA (PCR) (NotDetected) B.parapertussis DNA PCR (NotDetected) C. pneumoniae DNA (PCR) (NotDetected) Coronavirus OC43 (PCR) (NotDetected) Coronavirus HKU1 (PCR) (NotDetected) Coronavirus 229E (PCR) (NotDetected) SARS-CoV-2 (PCR) (NotDetected) Coronavirus NL63 (PCR) (NotDetected) Human Metapneumovir PCR (NotDetected) Influenza Type A (PCR) (NotDetected) Influenza Type B (PCR) (NotDetected) M. pneumoniae (PCR) (NotDetected) Parainfluenza 1 (PCR) (NotDetected) Parainfluenza 2 (PCR) (NotDetected) Parainfluenza 3 (PCR) (NotDetected) Parainfluenza 4 (PCR) (NotDetected) RSV (PCR) (NotDetected) Entero/Rhino (PCR) (NotDetected) Administered Medications Azithromycin 500 mg/ Dextrose 255 mls @ 127.5 mls/hr IV NOW STA Stop: 11/23/21 01:31 Last Admin: 11/22/21 23:56 Dose: 127.5 mls/hr Documented By: SER Discontinued Medications Sodium Chloride (Nss 1000ml) 1,000 mls @ 999 mls/hr IV .Q1H1M ONE Stop: 11/23/21 00:01 Last Admin: 11/22/21 23:55 Dose: 999 mls/hr Documented By: SER Piperacillin Sod/Tazobactam (Sod 3.375 gm/ Dextrose) 100 ml in 115 mls @ 230 mls/hr IV NOW STA Stop: 11/22/21 23:53 Last Admin: 11/22/21 23:56 Dose: 230 mls/hr Documented By: SER Imaging Data Radiologist's Impression: Chest X-Ray 11/22/21 22:25 XR chest 1V portable HISTORY: 26 years-old Female Sepsis acute sepsis COMPARISON: Chest radiograph 3 21,022 TECHNIQUE: AP view of the chest FINDINGS: The cardiomediastinal and hilar silhouettes are within normal limits. Limited exam secondary to positioning. No pneumothorax. Small pleural effusions with hazy bibasilar opacities. Bones appear grossly intact. IMPRESSION: Small pleural effusions with bibasilar opacities suggestive of atelectasis versus pneumonia. ACT 112: Negative or not required by law. The above report was generated using voice recognition software. It may contain grammatical, syntax or spelling errors. Electronically signed by: Ervin Townsend M.D. 11/22/2021 11:41 PM Discharge Plan Visit Data Chief Complaint: Tachycardia Stated Complaint: TACHYCARDIA ED Provider: Erik Anne Discharge Problem: Bilateral pneumonia Patient Disposition: Admitted As Inpatient Forms Stand Alone Forms: [facility] Prescriptions Prescriptions: No Action ibuprofen 100 mg/5 mL suspension See Rx Instructions PO Q6H PRN (Reason: fever or pain) Qty: 473 5RF Dose Instruction: 10-20mL PO Q6H PRN; Rx Instructions: 10-20mL PO Q6H PRN; acetaminophen 160 mg/5 mL liquid 640 mg PO Q6H PRN (Reason: fever or pain) Qty: 473 5RF (DME) disposable gloves Misc See Rx Instructions .ROUTE .MEDSUPPLY Qty: 100 0RF Rx Instructions: As directed G80.9 (DME) incontinence pad, liner, disp Pad See Rx Instructions .ROUTE .MEDSUPPLY Qty: 20 0RF Rx Instructions: As directed G80.9 (DME) Miscellaneous Medical Supply (Hospital Bed) See Rx Instructions .Route .MEDSUPPLY Qty: 1 0RF Rx Instructions: 1 set; replacement pads for side rails on hospital bed (DME) Day and Night Brief, Large Misc See Rx Instructions .ROUTE .MEDSUPPLY Qty: 180 11RF Rx Instructions: 6 per day/G80.9 (DME) nebulizers Misc See Rx Instructions .Route Qty: 1 0RF Rx Instructions: Nebulizer and nebulizer supplies Hers is broken beyond repair (DME) incontinence pad, liner, disp Pad See Rx Instructions .ROUTE .MEDSUPPLY Qty: 75 11RF Rx Instructions: 20 under pads and 75 liners miscellaneous medical supply [facility] [place] 1 ea miscellaneous ONCE Qty: 180 11RF Rx Instructions: ADULT LARGE INCONTINENT PANTS QTY 180 (DME) [place] Tr[facility] Care Tray Misc See Rx Instructions .Route Qty: 30 5RF Rx Instructions: Trach cleaning kit budesonide 0.5 mg/2 mL suspension for nebulization 0.5 mg inhalation BID Qty: 120 5RF tobramycin with nebulizer 300 mg/5 mL solution for nebulization 300 mg inhalation BID 28 Days Qty: 280 3RF Rx Instructions: separate doses by at least 6 hours levofloxacin 750 mg tablet 750 mg PO DAILY 14 Days Qty: 14 0RF baclofen 20 mg tablet 20 mg feeding tube TID 30 Days Qty: 90 11RF valproic acid (as sodium salt) 250 mg/5 mL solution 550 mg feeding tube TID 30 Days Qty: 990 11RF zonisamide 100 mg capsule 200 mg feeding tube .COMPLEX 30 Days Qty: 90 11RF Rx Instructions: 200 mg feeding tube TAKE 2 CAPS EVERY MORNING AND 1 CAP AT BEDTIME; polyethylene glycol 3350 17 gram/dose powder See Rx Instructions .ROUTE .COMPLEX Qty: 1530 3RF Dose Instruction: take 17GM (DISSOLVED IN WATER) by mouth once daily VIA FEEDING TUBE Rx Instructions: take 17GM (DISSOLVED IN WATER) by mouth once daily VIA FEEDING TUBE trazodone 50 mg tablet 50 mg feeding tube HS Qty: 90 3RF miscellaneous medical supply Misc 1 ea miscellaneous ONCE Qty: 1 0RF Rx Instructions: CORRUGATED TUBING FOR TRACH COLLAR 100 FT. miscellaneous medical supply Misc 1 ea miscellaneous ONCE Qty: 1 0RF Rx Instructions: HME (HEAT MOISTURE EXCHANGERS) QTY: 30 acetylcysteine 100 mg/mL (10 %) solution 3 ml inhalation BID Qty: 180 5RF albuterol sulfate 2.5 mg /3 mL (0.083 %) solution for nebulization 2.5 mg inhalation Q4H PRN (Reason: Wheezing/ shortness of breath) Qty: 540 5RF Boost 0.04 gram- 1 kcal/mL Liquid 1.5 ea PO QID@07,1130,15,19 Rx Instructions: 350mL via PEG tube at 400mL/hr at 0700, 1130, 1500, 1900 water Liquid 120 ea PO QID@07,1130,15,19 Rx Instructions: 120mL water flush via PEG before and after each bolus tube feed clonazepam 0.5 mg tablet,disintegrating 0.5 mg feeding tube DIRECTED PRN (Reason: PROLONGED SEIZURES) Rx Instructions: take 1 to 2 tablets by mouth daily, for prolonged seizures Xtracal Plus 14 gram-230 kcal/45 mL liquid in packet 1 ea feeding tube DAILY@1100 nitrofurantoin macrocrystal 50 mg capsule 50 mg feeding tube QAM cetirizine 10 mg tablet 10 mg feeding tube QAM fluoxetine 20 mg tablet 20 mg feeding tube QDL Referrals Referrals: Janet Pearce MD [Primary Care Provider] -
[2021-11-22] MEDS ORDERED: AZITHROMYCIN 500 MG in DEXTROSE 5% 250 ML IV STA (23:32)
--- NOTE | 2021-11-22 23:42 | XRay Report ---
XR chest 1V portable HISTORY: 26 years-old Female Sepsis acute sepsis COMPARISON: Chest radiograph 3 21,022 TECHNIQUE: AP view of the chest FINDINGS: The cardiomediastinal and hilar silhouettes are within normal limits. Limited exam secondary to posit ioning. No pneumothorax. Small pleural effusions with hazy bibasilar opacities. Bones appear grossly intact. IMPRESSION: Small pleural effusions with bibasilar opacities suggestive of atelectasis versus pneumon ia. ACT 112: Negative or not required by law. The above report was generated using voice recognition software. It may contain grammatical, syntax o r spelling errors. Electronically signed by: Ervin Townsend M.D. 11/22/2021 11:41 PM
[2021-11-22 23:49] LABS: Adenovirus PCR Not Detected (NotDetected); Bordetella parapertussis PCR Not Detected (NotDetected); Bordetella pertussis PCR Not Detected (NotDetected); Chlamydia pneumoniae PCR Not Detected (NotDetected); Coronavirus 229E PCR Not Detected (NotDetected); Coronavirus CoV-2 (COVID19)PCR Not Detected (NotDetected); Coronavirus HKU1 PCR Not Detected (NotDetected); Coronavirus NL63 PCR Not Detected (NotDetected); Coronavirus OC43PCR Not Detected (NotDetected); Human Metapneumovirus PCR Not Detected (NotDetected); Influenza A PCR Not Detected (NotDetected); Influenza B PCR Not Detected (NotDetected); Mycoplasma pneumoniae PCR Not Detected (NotDetected); Parainfluenza Virus 1 PCR Not Detected (NotDetected); Parainfluenza Virus 2 PCR Not Detected (NotDetected); Parainfluenza Virus 3 PCR Not Detected (NotDetected); Parainfluenza Virus 4 PCR Not Detected (NotDetected); Respiratory Syncytial VirusPCR Not Detected (NotDetected)
[2021-11-23 00:02] LABS: Rhinovirus/Enterovirus PCR DETECTED (NotDetected)
[2021-11-23 00:08] LABS: Base Excess VBG 0.5 mEq/L; HCO3 VBG 25 mmol/L; Oxygen Saturation VBG 93.1 %; PCO2 VBG 37 mmHg (38-50); PO2 VBG 71 mmHg; pH VBG 7.43 (7.36-7.41)
[2021-11-23] MEDS ORDERED: SODIUM CHLORIDE 0.9% 1000ML 1,000 ML IV ONE (00:09)
--- NOTE | 2021-11-23 02:16 | History & Physical Report ---
Date of Service November 23, 2021 Assessment & Plan (1) Bilateral pneumonia: Plan: Bilateral pneumonia/Achromobacter pneumonia/Pseudomonas organism resistant carrier- Patient elevated WBC of 19.69 Received Zosyn, azithromycin IV from the ED and 2 L normal saline Placed on ceftaz 1 g IV every 8 hours Duonebs every 4 hours while awake and every 2 hours when necessary. Usual pressure support in evening Follows with Dr. 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 Primary Care Provider: Janet Pearce MD The patient is a 26-year-old female with a past medical history including quadriplegic cerebral palsy, chronic respiratory failure requiring pressure support at nighttime, status post tracheostomy, and a recent treatment for pneumonia after completing a 14-day course of Levaquin 7 days ago. Her mother reports also that she has been treated for urinary tract infections in the past as a cause of similar symptoms. Allergies Allergy/AdvReac Type Severity Reaction Status Date / Time No Known Allergies Allergy Verified 05/13/21 13:06 Home Medications Medication Instructions Recorded Confirmed Type food supplemt, lactose-reduced 1.5 ea PO QID@,07/28/18 09/27/21 History 0.04 gram-1 kcal/mL oral liquid (Boost) water 120 ea PO QID@,0,07/28/18 09/27/21 History acetaminophen 160 mg/5 mL oral 640 mg (20 mL) PO Q6H PRN fever or 12/21/18 09/27/21 Rx liquid pain #473 mL ibuprofen 100 mg/5 mL oral See Rx Instructions PO Q6H PRN 12/21/18 09/27/21 Rx suspension fever or pain #473 mL disposable gloves #100 ea 05/12/19 09/27/21 Rx incontinence pad, liner, disp #20 ea 05/12/19 09/27/21 Rx Miscellaneous Medical Supply #1 ea 02/22/20 09/27/21 Rx (Hospital Bed) clonazepam 0.5 mg disintegrating 0.5 mg feeding tube DIRECTED 08/04/20 09/27/21 History tablet PRN PROLONGED SEIZURES nut.tx.,elemental,jsnbtfw-rply-zah 1 ea feeding tube DAILY@1100 08/04/20 09/27/21 History 14 gram-230 kcal/45 mL liquid pkt (Xtracal Plus) diaper,brief,adult,disposable (Day #180 ea 10/25/20 09/27/21 Rx and Night Brief, Large) nebulizers #1 ea 11/01/20 09/27/21 Rx polyethylene glycol 3350 17 See Rx Instructions .Route 12/04/20 09/27/21 Rx gram/dose oral powder .COMPLEX #1,530 grams trazodone 50 mg tablet 50 mg feeding tube HS #90 tabs 12/04/20 09/27/21 Rx miscellaneous medical supply 1 ea miscellaneous ONCE #1 ea 12/06/20 09/27/21 Rx miscellaneous medical supply 1 ea miscellaneous ONCE #1 ea 12/06/20 09/27/21 Rx baclofen 20 mg tablet 20 mg feeding tube TID 30 days #90 12/26/20 09/27/21 Rx tabs valproic acid (as sodium salt) 250 550 mg (11 mL) feeding tube TID 30 12/26/20 09/27/21 Rx mg/5 mL oral solution days #990 mL zonisamide 100 mg capsule 200 mg feeding tube .COMPLEX 30 12/26/20 09/27/21 Rx days #90 caps incontinence pad, liner, disp #75 ea 01/03/21 09/27/21 Rx miscellaneous medical supply 1 ea miscellaneous ONCE #180 ea 01/03/21 09/27/21 Rx miscellaneous medical supply #30 ea 01/31/21 09/27/21 Rx ([facility]) acetylcysteine 100 mg/mL (10 %) 3 ml inhalation BID #180 mL 04/17/21 09/27/21 Rx solution albuterol sulfate 2.5 mg/3 mL 2.5 mg (3 mL) inhalation Q4H PRN 04/17/21 09/27/21 Rx (0.083 %) solution for nebulization Wheezing/ shortness of breath #540 mL cetirizine 10 mg tablet 10 mg feeding tube QAM 05/13/21 09/27/21 History fluoxetine 20 mg tablet 20 mg feeding tube QDL 05/13/21 09/27/21 History nitrofurantoin macrocrystal 50 mg 50 mg feeding tube QAM 05/13/21 09/27/21 History capsule budesonide 0.5 mg/2 mL suspension 0.5 mg (2 mL) inhalation BID #120 09/10/21 09/27/21 Rx for nebulization mL tobramycin with nebulizer 300 mg/5 300 mg (5 mL) inhalation BID 28 09/24/21 09/27/21 Rx mL solution for nebulization days #280 mL levofloxacin 750 mg tablet 750 mg PO DAILY 14 days #14 tabs 10/30/21 Rx Past Med/Surg History Medical History (Updated 11/23/21 @ 00:36 by Erik Anne DO) Achromobacter pneumonia Allergic rhinitis Chronic respiratory failure with hypoxia and hypercapnia Cortical blindness Depression with anxiety Insomnia Mucus plugging of bronchi 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 Seizure disorder Surgical History History of tracheostomy #6 [place] 09/10/2020 S/P percutaneous endoscopic gastrostomy (PEG) tube placement Family History Brother Asthma Other Coronary heart disease Family history non-contributory Hypertension Social History Smoking Status: Never smoker Second Hand Exposure: No; Hx Alcohol Use: No Hx Substance Use: No Preferred Language: Libyan Communication Ability: Unable 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 HEENT--PERRL, EOMI, mucous membranes and oropharynx normal Neck--supple. No JVD. No bruits. Thyroid normal, trachea midline, no adenopathy. Heart--normal S1 and S2. No murmurs, rubs or gallops. Lungs--clear bilaterally, no respiratory distress, no accessory muscle use. Abdomen--normal bowel sounds and soft. Nontender. Nondistended, no hernias or masses, no organomegaly. Extremities--no cyanosis or clubbing. No edema. There are good distal pulses b/l. Dermatologic--normal skin turgor, normal color, no abnormal lymph nodes, no rash. Neurologic--cranial nerves II through XII grossly intact. Rheumatologic--limited exam Psychiatric--as noted Results & Data Results & Data ([facility]) Vital Signs (Past 12 Hours) Vital Signs Temp Pulse Pulse Resp BP BP Pulse Ox 11/23/21 00:45 97 H 36 H 99 11/23/21 00:30 107 H 32 H 91 11/23/21 00:30 108/80 11/23/21 00:15 103 H 38 H 98 11/23/21 00:15 104/64 11/23/21 00:00 98 H 38 H 96 11/23/21 00:00 97/61 L 11/22/21 23:47 105/69 11/22/21 23:47 102 H 32 H 97 11/22/21 23:45 106 H 31 H 96 11/22/21 23:30 108 H 31 H 97 11/22/21 23:00 107 H 31 H 98 11/22/21 22:50 113 H 100/64 97 11/22/21 22:27 37.6 C H 107 H 11/22/21 22:27 98 11/22/21 22:08 37.6 C H 109 H 36 H 100/64 100 11/22/21 22:08 11/22/21 21:53 116 H 31 H 100/64 93 O2 Del Method O2 Flow Rate 11/23/21 00:45 11/23/21 00:30 11/23/21 00:30 11/23/21 00:15 11/23/21 00:15 11/23/21 00:00 11/23/21 00:00 11/22/21 23:47 11/22/21 23:47 11/22/21 23:45 11/22/21 23:30 11/22/21 23:00 11/22/21 22:50 Trach Collar 11/22/21 22:27 11/22/21 22:27 Trach Collar 11/22/21 22:08 Trach Collar 7 11/22/21 22:08 Trach Collar 7 11/22/21 21:53 Trach Collar 8 Laboratory Results Laboratory Results WBC 19.69 K/ul (4.8-10.8) H 11/22/21 22:04 RBC 3.85 M/uL (3.93-5.22) L 11/22/21 22:04 Hgb 13.2 g/dl (12.0-16.0) 11/22/21 22:04 Hct 37.8 % (34.1-44.9) 11/22/21 22:04 MCV 98.2 fL (80.0-100.0) 11/22/21 22:04 MCH 34.3 pg (25.0-34.0) H 11/22/21 22:04 MCHC 34.9 g/dL (32.0-36.0) 11/22/21 22:04 RDW Std Deviation 45.1 fL (36.4-46.3) 11/22/21 22:04 RDW Coeff of [place] 12.6 % (11.5-14.5) 11/22/21 22:04 Plt Count 127 K/uL (130-400) L 11/22/21 22:04 MPV 9.3 fL (9.4-12.3) L 11/22/21 22:04 Immature Gran % (Auto) 0.4 % 11/22/21 22:04 Neut % (Auto) 87.3 % 11/22/21 22:04 Lymph % (Auto) 3.9 % 11/22/21 22:04 [place] % (Auto) 8.2 % 11/22/21 22:04 Eos % (Auto) 0.0 % 11/22/21 22:04 Baso % (Auto) 0.2 % 11/22/21 22:04 Neut # (Auto) 17.21 K/uL (1.4-6.5) H 11/22/21 22:04 Lymph # (Auto) 0.77 K/uL (1.2-3.4) L 11/22/21 22:04 [place] # (Auto) 1.61 K/uL (0.24-0.82) H 11/22/21 22:04 Eos # (Auto) 0.00 K/uL (0-0.50) 11/22/21 22:04 Baso # (Auto) 0.03 K/uL (0-0.2) 11/22/21 22:04 Immature Gran # (Auto) 0.07 K/uL (0.00-0.02) H 11/22/21 22:04 Platelet Estimate Normal (Normal) 11/22/21 22:04 Polychromasia 1+ 11/22/21 22:04 PT 11.7 Seconds (9.0-12.0) 11/22/21 22: INR 1.1 (0.9-1.1) 11/22/21 22:04 APTT 27.5 Seconds (21.0-31.0) 11/22/21 22: PTT Ratio 1.0 11/22/21 22:04 VBG pH 7.43 (7.36-7.41) H 11/23/21 00:01 VBG pCO2 37 mmHg (38-50) L 11/23/21 00:01 VBG pO2 71 mmHg 11/23/21 00:01 VBG HCO3 25 mmol/L 11/23/21 00:01 VBG O2 Saturation 93.1 % 11/23/21 00:01 VBG Base Excess 0.5 mEq/L 11/23/21 00:01 Sodium 132 mmol/L (136-145) L 11/22/21 22:04 Potassium 3.6 mmol/L (3.5-5.1) 11/22/21 22:04 Chloride 101 mmol/L (98-107) 11/22/21 22:04 Carbon Dioxide 22 mmol/L (21-32) 11/22/21 22:04 Anion Gap 9 (3-11) 11/22/21 22:04 BUN 18 mg/dl (6-23) 11/22/21 22:04 Creatinine 0.46 mg/dl (0.6-1.2) L 11/22/21 22:04 Est Cr Clr Drug Dosing 157.3 ml/min 11/22/21 22:04 Est GFR ( Amer) > 150.0 ml/min 11/22/21 22:04 Est GFR (Non-Af Amer) 138.3 ml/min 11/22/21 22:04 BUN/Creatinine Ratio 39.1 (10-20) H 11/22/21 22:04 Glucose 126 mg/dl (70-99(Fasting)) H 11/22/21 22:04 Lactate 1.0 mmol/L (0.4-2.0) 11/23/21 00:01 Calcium 9.4 mg/dl (8.5-10.1) 11/22/21 22:04 Magnesium 1.8 mg/dl (1.7-2.4) 11/22/21 22:04 Total Bilirubin 0.4 mg/dl (0.2-1.0) 11/22/21 22:04 Direct Bilirubin 0.1 mg/dl (0-0.2) 11/22/21 22:04 AST 13 U/L (13-39) 11/22/21 22:04 ALT 8 U/L (7-52) 11/22/21 22:04 Alkaline Phosphatase 72 U/L (34-104) 11/22/21 22:04 Troponin I High Sens < 2.3 pg/ml (0-14) 11/22/21 22:04 Total Protein 7.7 gm/dl (6.0-8.3) 11/22/21 22:04 Albumin 4.1 gm/dl (3.4-5.0) 11/22/21 22:04 Procalcitonin 0.37 ng/ml (0-0.5) 11/22/21 22:04 Adenovirus (PCR) Not Detected (NotDetected) 11/22/21 22:38 B. pertussis DNA (PCR) Not Detected (NotDetected) 11/22/21 22:38 B.parapertussis DNA PCR Not Detected (NotDetected) 11/22/21 22:38 C. pneumoniae DNA (PCR) Not Detected (NotDetected) 11/22/21 22:38 Coronavirus OC43 (PCR) Not Detected (NotDetected) 11/22/21 22:38 Coronavirus HKU1 (PCR) Not Detected (NotDetected) 11/22/21 22:38 Coronavirus 229E (PCR) Not Detected (NotDetected) 11/22/21 22:38 SARS-CoV-2 (PCR) Not Detected (NotDetected) 11/22/21 22:38 Coronavirus NL63 (PCR) Not Detected (NotDetected) 11/22/21 22:38 Human Metapneumovir PCR Not Detected (NotDetected) 11/22/21 22:38 Influenza Type A (PCR) Not Detected (NotDetected) 11/22/21 22:38 Influenza Type B (PCR) Not Detected (NotDetected) 11/22/21 22:38 M. pneumoniae (PCR) Not Detected (NotDetected) 11/22/21 22:38 Parainfluenza 1 (PCR) Not Detected (NotDetected) 11/22/21 22:38 Parainfluenza 2 (PCR) Not Detected (NotDetected) 11/22/21 22:38 Parainfluenza 3 (PCR) Not Detected (NotDetected) 11/22/21 22:38 Parainfluenza 4 (PCR) Not Detected (NotDetected) 11/22/21 22:38 RSV (PCR) Not Detected (NotDetected) 11/22/21 22:38 Entero/Rhino (PCR) DETECTED (NotDetected) A* 11/22/21 22:38 Impressions Chest X-Ray 11/22/21 22:25 XR chest 1V portable HISTORY: 26 years-old Female Sepsis acute sepsis COMPARISON: Chest radiograph 3 022 TECHNIQUE: AP view of the chest FINDINGS: The cardiomediastinal and hilar silhouettes are within normal limits. Limited exam secondary to positioning. No pneumothorax. Small pleural effusions with hazy bibasilar opacities. Bones appear grossly intact. IMPRESSION: Small pleural effusions with bibasilar opacities suggestive of atelectasis versus pneumonia. ACT 112: Negative or not required by law. The above report was generated using voice recognition software. It may contain grammatical, syntax or spelling errors. Electronically signed by: Ervin Townsend M.D. 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
[2021-11-23] MEDS ORDERED: CLONAZEPAM 0.5 MG feeding tube PRN (04:15)
[2021-11-23] MEDS ORDERED: ACETAMINOPHEN SUSP 325 MG/10.15 ML UDC PO PRN (04:15)
[2021-11-23] MEDS ORDERED: ALBUTEROL 0.083% NEBU SOLN 3 ML VIAL INH PRN (04:15)
[2021-11-23] MEDS ORDERED: NSS + 20MEQ KCL 20 MEQ/1,000 ML BAG IV SCH (04:30)
[2021-11-23] MEDS ORDERED: FLUARIX QUADRIVALENT 0.5 ML SYR IM ONE (05:02)
[2021-11-23] MEDS ORDERED: WATER PO SCH (07:00)
[2021-11-23] MEDS ORDERED: NON-FORMULARY MEDICATION (Food Supplemt, Lactose-Reduced [Boost] 0.04 gram- 1 kcal/mL Liqu PO SCH (07:00)
[2021-11-23 07:12] LABS: Appearance Urine Clear (Clear); Bacteria Urine Automated Negative (Negative); Bilirubin Urine Negative (Negative); Blood Urine 1+ (Negative); Color Urine Yellow; Epithelial Cell Urine Auto 20-30 /lpf (0-5); Glucose Urine UA Negative (Negative); Ketones Urine Negative (Negative); Leukocyte Esterase Urine Trace (Negative); Nitrite Urine Negative (Negative); Protein Urine Negative (Negative); RBC Urine Automated 0-4 /hpf (0-4); Specific Gravity Urine 1.006 (1.000-1.030); Urobilinogen Urine Negative (Negative)
--- NOTE | 2021-11-23 07:18 | Electrocardiogram Report ---
Test Reason : Blood Pressure : / mmHG Vent. Rate : 113 BPM Atrial Rate : 113 BPM P-R Int : 130 ms QRS Dur : 074 ms QT Int : 308 ms P-R-T Axes : 061 064 072 degrees QTc Int : 422 ms Sinus tachycardia Nonspecific T wave abnormality Abnormal ECG When compared with ECG of 06-NOV-2020 10:04, Nonspecific T wave abnormality has replaced inverted T waves in Anterior leads Confirmed by Fco Edward ([id number]) on 11/23/2021 7:18:12 AM Referred By: REFERRED SELF Confirmed By:Cosmo Edward
--- NOTE | 2021-11-23 07:20 | Electrocardiogram Report ---
Test Reason : Blood Pressure : / mmHG Vent. Rate : 097 BPM Atrial Rate : 097 BPM P-R Int : 138 ms QRS Dur : 082 ms QT Int : 344 ms P-R-T Axes : 047 043 021 degrees QTc Int : 436 ms Normal sinus rhythm Nonspecific T wave abnormality Abnormal ECG When compared with ECG of 22-NOV-2021 22:08, (unconfirmed) No significant change was found Confirmed by Fco Edward ([id number]) on 11/23/2021 7:19:56 AM Referred By: REFERRED SELF Confirmed By:Cosmo Edward
[2021-11-23] MEDS: TOBRAMYCIN 300MG NEB INH SCH ×2 (07:28→20:48)
[2021-11-23] MEDS: BUDESONIDE 0.5 MG/2 ML VIAL (PULMICORT) INH SCH ×2 (07:28→20:00)
[2021-11-23] MEDS: ALBUT/IPRATROP 3MG/0.5MG NEB 3 ML VIAL NEB SCH ×4 (07:29→20:00)
[2021-11-23] MEDS: ACETYLCYSTEINE 10% INHAL SOLN 4 ML **DISPENSED BY RESP. INH SCH ×2 (07:30→20:00)
[2021-11-23 08:09] LABS: INR 1.2 (0.9-1.1); Prothrombin Time 12.4 Seconds (9.0-12.0)
[2021-11-23 08:13] LABS: Basophils # (auto) 0.02 K/uL (0-0.2); Basophils % (auto) 0.1 %; Eosinophils # (auto) 0.01 K/uL (0-0.50); Eosinophils % (auto) 0.1 %; Hematocrit (blood only) 38.1 % (34.1-44.9); Immature Granulocytes # (auto) 0.04 K/uL (0.00-0.02); Immature Granulocytes % (auto) 0.3 %; Lymphocytes # (auto) 0.45 K/uL (1.2-3.4); Lymphocytes % (auto) 3.3 %; Mean Corpuscular Hemoglobin 34.2 pg (25.0-34.0); Mean Corpuscular Hgb Conc 34.1 g/dL (32.0-36.0); Mean Corpuscular Volume 100.3 fL (80.0-100.0); Mean Platelet Volume 9.2 fL (9.4-12.3); Monocytes # (auto) 1.09 K/uL (0.24-0.82); Neutrophils # (auto) 12.04 K/uL (1.4-6.5); Neutrophils % (auto) 88.2 %; Platelet Count 95 K/uL (130-400); RDW Coefficient of Variation 12.7 % (11.5-14.5); RDW Standard Deviation 46.1 fL (36.4-46.3); White Blood Count 13.65 K/ul (4.8-10.8)
[2021-11-23 08:30] LABS: Alanine Aminotransferase 8 U/L (7-52); Albumin Globulin Ratio 1.2 (0.9-2); Albumin Level 3.9 gm/dl (3.4-5.0); Alkaline Phosphatase 65 U/L (34-104); Anion Gap 7 (3-11); Aspartate Aminotransferase 16 U/L (13-39); BUN Creatinine Ratio 29.3 (10-20); Bilirubin,Total 0.6 mg/dl (0.2-1.0); Blood Urea Nitrogen 12 mg/dl (6-23); Calcium 8.7 mg/dl (8.5-10.1); Carbon Dioxide 22 mmol/L (21-32); Chloride 107 mmol/L (98-107); Creatinine Clr Calc Pharmacy 176.5 ml/min; Est GFR (African American) > 150.0 ml/min; Est GFR (Non-African American) 143.6 ml/min; Globulin 3.3 gm/dl (2.5-4.0); Glucose 72 mg/dl (70-99(Fasting)); Potassium 4.1 mmol/L (3.5-5.1); Sodium 136 mmol/L (136-145); Total Protein 7.2 gm/dl (6.0-8.3)
[2021-11-23] MEDS ORDERED: LORazepam 0.5 MG in SYRINGE 0 ML IV PRN (08:48)
[2021-11-23] MEDS: POLYETHYLENE (MIRALAX) 17 GM PACK PEG SCH (08:49)
[2021-11-23] MEDS: BACLOFEN 20 MG TAB PEG SCH ×3 (08:49→19:44)
[2021-11-23] MEDS: VALPROIC ACID 50 MG/ML UDP PEG SCH ×3 (08:49→19:46)
[2021-11-23] MEDS: ZONISAMIDE PO SCH ×2 (09:11→19:44)
[2021-11-23] MEDS ORDERED: METOPROLOL TARTRATE 1 MG/ML VIAL IV ONE (09:54)
[2021-11-23] MEDS ORDERED: [UNRECOGNIZED DRUG - OTHER] feeding tube SCH (11:00)
--- NOTE | 2021-11-23 11:48 | Pulmonary Consultation ---
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 Her white count was elevated. She has a history of Pseudomonas and Achromobacter in her sputum. Recommendations: 1. Exacerbation of bronchiectasis: Agree with Fortaz for now pending speciation and sensitivity from respiratory culture. Will place on Bactrim given her prior history of Achromobacter. Continue nebulized tobramycin for an additional 5days. Additional recommendations will be based on results of respiratory cultures and clinical response. 2. Continue aggressive pulmonary toilet with suctioning as needed. She is receiving Mucomyst nebs as well which may be beneficial. Hold on hypertonic saline for now. Would consider starting this if secretions become too difficult to manage. 3. Continue supplemental oxygen via trach collar. Discussed with family and nursing at bedside. We will continue to follow. History of Present Illness Attending Physician: Madisyn Chirinos MD History of Present Illness Asked by hospitalist to assist in evaluation and management of this patient with tracheostomy and chronic Pseudomonas Achromobacter colonization admitted with tachycardia and fever being treated presumptively for exacerbation of bronchiectasis. Patient is nonverbal and unable to provide any history. The patient completed a 14-day course of outpatient levofloxacin about a week ago. She had an ID consult performed through [facility] about a month ago who recommended Bactrim for Achromobacter exacerbations and nebulized tobramycin. The patient follows with Dr. Stover in the outpatient setting and has been on a 28-day on 28-day off course of inhaled tobramycin. She is scheduled to complete her 28 days on on November 27. Her fever appears better however she remains tachycardic. Allergies Allergy/AdvReac Type Severity Reaction Status Date / Time No Known Allergies Allergy Verified 05/13/21 13:06 Home Medications Medication Instructions Recorded Confirmed Type food supplemt, lactose-reduced 1.5 ea PO QID@07,1130,15,19 07/28/18 09/27/21 History 0.04 gram-1 kcal/mL oral liquid (Boost) water 120 ea PO QID@07,1130,15,19 07/28/18 09/27/21 History acetaminophen 160 mg/5 mL oral 640 mg (20 mL) PO Q6H PRN fever or 12/21/18 09/27/21 Rx liquid pain #473 mL ibuprofen 100 mg/5 mL oral See Rx Instructions PO Q6H PRN 12/21/18 09/27/21 Rx suspension fever or pain #473 mL disposable gloves #100 ea 05/12/19 09/27/21 Rx incontinence pad, liner, disp #20 ea 05/12/19 09/27/21 Rx Miscellaneous Medical Supply #1 ea 02/22/20 09/27/21 Rx (Hospital Bed) clonazepam 0.5 mg disintegrating 0.5 mg feeding tube DIRECTED 08/04/20 09/27/21 History tablet PRN PROLONGED SEIZURES nut.tx.,elemental,owyrzbq-cmqf-cwm 1 ea feeding tube DAILY@1100 08/04/20 09/27/21 History 14 gram-230 kcal/45 mL liquid pkt (Xtracal Plus) diaper,brief,adult,disposable (Day #180 ea 10/25/20 09/27/21 Rx and Night Brief, Large) nebulizers #1 ea 11/01/20 09/27/21 Rx polyethylene glycol 3350 17 See Rx Instructions .Route 12/04/20 09/27/21 Rx gram/dose oral powder .COMPLEX #1,530 grams trazodone 50 mg tablet 50 mg feeding tube HS #90 tabs 12/04/20 09/27/21 Rx miscellaneous medical supply 1 ea miscellaneous ONCE #1 ea 12/06/20 09/27/21 Rx miscellaneous medical supply 1 ea miscellaneous ONCE #1 ea 12/06/20 09/27/21 Rx baclofen 20 mg tablet 20 mg feeding tube TID 30 days #90 12/26/20 09/27/21 Rx tabs valproic acid (as sodium salt) 250 550 mg (11 mL) feeding tube TID 30 12/26/20 09/27/21 Rx mg/5 mL oral solution days #990 mL zonisamide 100 mg capsule 200 mg feeding tube .COMPLEX 30 12/26/20 09/27/21 Rx days #90 caps incontinence pad, liner, disp #75 ea 01/03/21 09/27/21 Rx miscellaneous medical supply 1 ea miscellaneous ONCE #180 ea 01/03/21 09/27/21 Rx miscellaneous medical supply #30 ea 01/31/21 09/27/21 Rx ([facility]) acetylcysteine 100 mg/mL (10 %) 3 ml inhalation BID #180 mL 04/17/21 09/27/21 Rx solution albuterol sulfate 2.5 mg/3 mL 2.5 mg (3 mL) inhalation Q4H PRN 04/17/21 09/27/21 Rx (0.083 %) solution for nebulization Wheezing/ shortness of breath #540 mL cetirizine 10 mg tablet 10 mg feeding tube QAM 05/13/21 09/27/21 History fluoxetine 20 mg tablet 20 mg feeding tube QDL 05/13/21 09/27/21 History nitrofurantoin macrocrystal 50 mg 50 mg feeding tube QAM 05/13/21 09/27/21 History capsule budesonide 0.5 mg/2 mL suspension 0.5 mg (2 mL) inhalation BID #120 09/10/21 09/27/21 Rx for nebulization mL tobramycin with nebulizer 300 mg/5 300 mg (5 mL) inhalation BID 28 09/24/21 09/27/21 Rx mL solution for nebulization days #280 mL levofloxacin 750 mg tablet 750 mg PO DAILY 14 days #14 tabs 10/30/21 Rx Patient History Medical History (Updated 11/23/21 @ 11:46 by Freddy Ribeiro MD) Achromobacter pneumonia Allergic rhinitis Chronic respiratory failure with hypoxia and hypercapnia Cortical blindness Depression with anxiety Insomnia Mucus plugging of bronchi 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 Seizure disorder Surgical History History of tracheostomy #6 [place] 09/10/2020 S/P percutaneous endoscopic gastrostomy (PEG) tube placement Family History Brother Asthma Other Coronary heart disease Family history non-contributory Hypertension Social History Smoking Status: Never smoker Second Hand Exposure: No; Hx Alcohol Use: No Hx Substance Use: No Preferred Language: Sinhala Communication Ability: Impaired Dye House Helper Required: No Beliefs That Will Affect Care: None Current Living Situation: Family Current Living Situation Comment: parent Other Information That Helps Us Care for You: No Feels Safe at Home: Yes Safety Concerns: Feels Safe At This Time Assistive Devices: Oxygen - Continuous Assistive Devices Comment: Vent, feeding pump, home supplies Review of Systems Review of Systems: Unobtainable due to cognitive status Physical Exam Physical Exam: The patient is awake, on trach collar, lying in bed and in no acute distress. HEENT--PERRL, EOMI, mucous membranes and oropharynx normal Neck--supple. No JVD. No bruits. Thyroid normal, trachea midline, no adenopathy. Heart--normal S1 and S2. No murmurs, rubs or gallops. Lungs--clear bilaterally, no respiratory distress, no accessory muscle use. Abdomen--normal bowel sounds and soft. Nontender. Nondistended, no hernias or masses, no organomegaly. Extremities--no cyanosis or clubbing. No edema. There are good distal pulses b/l. Dermatologic--normal skin turgor, normal color, no abnormal lymph nodes, no rash. Neurologic--cranial nerves II through XII grossly intact. Rheumatologic--limited exam Psychiatric--as noted Results & Data Results & Data ([facility]) Vital Signs (Past 12 Hours) Vital Signs Temp Pulse Pulse Pulse Resp BP BP 11/23/21 11:28 117 H 32 H 11/23/21 11:11 120 H 103/64 11/23/21 07:15 112 H 32 H 11/23/21 09:23 116 H 39 H 11/23/21 09:23 80/48 L 11/23/21 09:00 120 H 21 11/23/21 09:50 37.2 C 11/23/21 08:00 122 H 47 H 11/23/21 07:30 121 H 29 H 11/23/21 07:07 114 H 27 H 11/23/21 07:07 91/60 L 11/23/21 07:04 116 H 32 H 11/23/21 07:00 113 H 28 H 11/23/21 07:00 79/62 L 11/23/21 06:30 115 H 17 11/23/21 06:00 111 H 28 H 11/23/21 06:00 82/68 L 11/23/21 05:30 106 H 35 H 11/23/21 05:00 106 H 38 H 11/23/21 05:00 98/65 L 11/23/21 04:52 100/70 11/23/21 04:52 103 H 46 H 11/23/21 04:30 102 H 37 H 11/23/21 07:36 11/23/21 07:34 121 H 11/23/21 07:00 11/23/21 06:01 11/23/21 04:15 107 H 35 H 11/23/21 04:51 99 H 22 100/70 11/23/21 04:01 95 H 41 H 11/23/21 04:01 100/61 11/23/21 04:00 96 H 32 H 11/23/21 04:15 90 11/23/21 03:30 11/23/21 03:15 90 27 H 11/23/21 03:15 90/65 L 11/23/21 03:00 104/68 11/23/21 03:00 87 29 H 11/23/21 02:45 79 37 H 11/23/21 02:45 87/53 L 11/23/21 02:30 82 29 H 11/23/21 02:30 100/61 11/23/21 02:15 83 29 H 11/23/21 02:15 95/62 L 11/23/21 02:00 83 33 H 11/23/21 02:00 89/56 L 11/23/21 01:45 88 26 H 11/23/21 01:45 95/67 L 11/23/21 01:30 87 32 H 11/23/21 01:15 94 H 33 H 11/23/21 01:00 100 H 23 11/23/21 00:45 97 H 36 H 11/23/21 00:30 107 H 32 H 11/23/21 00:30 108/80 11/23/21 00:15 103 H 38 H 11/23/21 00:15 104/64 11/23/21 00:00 98 H 38 H 11/23/21 00:00 97/61 L 11/22/21 23:47 105/69 11/22/21 23:47 102 H 32 H 11/22/21 23:45 106 H 31 H Pulse Ox Pulse Ox O2 Del Method O2 Del Method O2 Flow Rate FiO2 11/23/21 11:28 94 Trach Collar 50 11/23/21 11:11 11/23/21 07:15 95 Trach Collar 50 11/23/21 09:23 92 11/23/21 09:23 11/23/21 09:00 91 11/23/21 09:50 11/23/21 08:00 91 11/23/21 07:30 93 11/23/21 07:07 96 11/23/21 07:07 11/23/21 07:04 97 11/23/21 07:00 98 11/23/21 07:00 11/23/21 06:30 99 11/23/21 06:00 97 11/23/21 06:00 11/23/21 05:30 98 11/23/21 05:00 92 11/23/21 05:00 11/23/21 04:52 11/23/21 04:52 95 11/23/21 04:30 95 11/23/21 07:36 Trach Collar 11/23/21 07:34 11/23/21 07:00 96 Trach Collar 11/23/21 06:01 Trach Collar 12 50 11/23/21 04:15 94 Trach Collar 12 50 11/23/21 04:51 86 L Trach Collar 12 50 11/23/21 04:01 94 11/23/21 04:01 11/23/21 04:00 92 11/23/21 04:15 11/23/21 03:30 Trach Collar 11/23/21 03:15 96 11/23/21 03:15 11/23/21 03:00 11/23/21 03:00 94 11/23/21 02:45 94 11/23/21 02:45 11/23/21 02:30 96 11/23/21 02:30 11/23/21 02:15 93 11/23/21 02:15 11/23/21 02:00 92 11/23/21 02:00 11/23/21 01:45 96 11/23/21 01:45 11/23/21 01:30 97 11/23/21 01:15 96 11/23/21 01:00 97 11/23/21 00:45 99 11/23/21 00:30 91 11/23/21 00:30 11/23/21 00:15 98 11/23/21 00:15 11/23/21 00:00 96 11/23/21 00:00 11/22/21 23:47 11/22/21 23:47 97 11/22/21 23:45 96 Critical Care Results & Data Vital Signs (Past 12 Hours) Vital Signs Temp Pulse Pulse Pulse Resp BP BP 11/23/21 11:28 117 H 32 H 11/23/21 11:11 120 H 103/64 11/23/21 07:15 112 H 32 H 11/23/21 09:23 116 H 39 H 11/23/21 09:23 80/48 L 11/23/21 09:00 120 H 21 11/23/21 09:50 37.2 C 11/23/21 08:00 122 H 47 H 11/23/21 07:30 121 H 29 H 11/23/21 07:07 114 H 27 H 11/23/21 07:07 91/60 L 11/23/21 07:04 116 H 32 H 11/23/21 07:00 113 H 28 H 11/23/21 07:00 79/62 L 11/23/21 06:30 115 H 17 11/23/21 06:00 111 H 28 H 11/23/21 06:00 82/68 L 11/23/21 05:30 106 H 35 H 11/23/21 05:00 106 H 38 H 11/23/21 05:00 98/65 L 11/23/21 04:52 100/70 11/23/21 04:52 103 H 46 H 11/23/21 04:30 102 H 37 H 11/23/21 07:36 11/23/21 07:34 121 H 11/23/21 07:00 11/23/21 06:01 11/23/21 04:15 107 H 35 H 11/23/21 04:51 99 H 22 100/70 11/23/21 04:01 95 H 41 H 11/23/21 04:01 100/61 11/23/21 04:00 96 H 32 H 11/23/21 04:15 90 11/23/21 03:30 11/23/21 03:15 90 27 H 11/23/21 03:15 90/65 L 11/23/21 03:00 104/68 11/23/21 03:00 87 29 H 11/23/21 02:45 79 37 H 11/23/21 02:45 87/53 L 11/23/21 02:30 82 29 H 11/23/21 02:30 100/61 11/23/21 02:15 83 29 H 11/23/21 02:15 95/62 L 11/23/21 02:00 83 33 H 11/23/21 02:00 89/56 L 11/23/21 01:45 88 26 H 11/23/21 01:45 95/67 L 11/23/21 01:30 87 32 H 11/23/21 01:15 94 H 33 H 11/23/21 01:00 100 H 23 11/23/21 00:45 97 H 36 H 11/23/21 00:30 107 H 32 H 11/23/21 00:30 108/80 11/23/21 00:15 103 H 38 H 11/23/21 00:15 104/64 11/23/21 00:00 98 H 38 H 11/23/21 00:00 97/61 L 11/22/21 23:47 105/69 11/22/21 23:47 102 H 32 H Pulse Ox Pulse Ox O2 Del Method O2 Del Method O2 Flow Rate FiO2 11/23/21 11:28 94 Trach Collar 50 11/23/21 11:11 11/23/21 07:15 95 Trach Collar 50 11/23/21 09:23 92 11/23/21 09:23 11/23/21 09:00 91 11/23/21 09:50 11/23/21 08:00 91 11/23/21 07:30 93 11/23/21 07:07 96 11/23/21 07:07 11/23/21 07:04 97 11/23/21 07:00 98 11/23/21 07:00 11/23/21 06:30 99 11/23/21 06:00 97 11/23/21 06:00 11/23/21 05:30 98 11/23/21 05:00 92 11/23/21 05:00 11/23/21 04:52 11/23/21 04:52 95 11/23/21 04:30 95 11/23/21 07:36 Trach Collar 11/23/21 07:34 11/23/21 07:00 96 Trach Collar 11/23/21 06:01 Trach Collar 12 50 11/23/21 04:15 94 Trach Collar 12 50 11/23/21 04:51 86 L Trach Collar 12 50 11/23/21 04:01 94 11/23/21 04:01 11/23/21 04:00 92 11/23/21 04:15 11/23/21 03:30 Trach Collar 11/23/21 03:15 96 11/23/21 03:15 11/23/21 03:00 11/23/21 03:00 94 11/23/21 02:45 94 11/23/21 02:45 11/23/21 02:30 96 11/23/21 02:30 11/23/21 02:15 93 11/23/21 02:15 11/23/21 02:00 92 11/23/21 02:00 11/23/21 01:45 96 11/23/21 01:45 11/23/21 01:30 97 11/23/21 01:15 96 11/23/21 01:00 97 11/23/21 00:45 99 11/23/21 00:30 91 11/23/21 00:30 11/23/21 00:15 98 11/23/21 00:15 11/23/21 00:00 96 11/23/21 00:00 11/22/21 23:47 11/22/21 23:47 97 Lab & Micro Results (Past 24 Hours) RBC 3.80 M/uL (3.93-5.22) L 11/23/21 WBC 13.65 K/ul (4.8-10.8) H 11/23/21 Hgb 13.0 g/dl (12.0-16.0) 11/23/21 Hct 38.1 % (34.1-44.9) 11/23/21 MCV 100.3 fL (80.0-100.0) H 11/23/21 MCH 34.2 pg (25.0-34.0) H 11/23/21 MCHC 34.1 g/dL (32.0-36.0) 11/23/21 RDW Standard Deviation 46.1 fL (36.4-46.3) 11/23/21 RDW Coefficient of Variation 12.7 % (11.5-14.5) 11/23/21 Plt Count 95 K/uL (130-400) L 11/23/21 MPV 9.2 fL (9.4-12.3) L 11/23/21 Neutrophils (%) (Auto) 88.2 % 11/23/21 Lymphocytes (%) (Auto) 3.3 % 11/23/21 Monocytes # (Auto) 1.09 K/uL (0.24-0.82) H 11/23/21 Eosinophils # (Auto) 0.01 K/uL (0-0.50) 11/23/21 Immature Granulocyte % (Auto) 0.3 % 11/23/21 Neutrophils # (Auto) 12.04 K/uL (1.4-6.5) H 11/23/21 Lymphocytes # (Auto) 0.45 K/uL (1.2-3.4) L 11/23/21 Monocytes # (Auto) 1.09 K/uL (0.24-0.82) H 11/23/21 Eosinophils # (Auto) 0.01 K/uL (0-0.50) 11/23/21 Basophils # (Auto) 0.02 K/uL (0-0.2) 11/23/21 Immature Granulocyte # (Auto) 0.04 K/uL (0.00-0.02) H 11/23 Polychromasia 1+ 11/22/21 Na 136 mmol/L (136-145) 11/23/21 K 4.1 mmol/L (3.5-5.1) 11/23/21 Cl 107 mmol/L (98-107) 11/23/21 CO2 22 mmol/L (21-32) 11/23/21 Anion Gap 7 (3-11) 11/23/21 BUN 12 mg/dl (6-23) 11/23/21 Creatinine 0.41 mg/dl (0.6-1.2) L 11/23/21 Estimated GFR ( Amer) > 150.0 ml/min 11/23/21 Estimated GFR (Non-Af Amer) 143.6 ml/min 11/23/21 BUN/Creatinine Ratio 29.3 (10-20) H 11/23/21 Glu 72 mg/dl (70-99(Fasting)) 11/23/21 Ca 8.7 mg/dl (8.5-10.1) 11/23/21 Total Bilirubin 0.6 mg/dl (0.2-1.0) 11/23/21 Direct Bilirubin 0.1 mg/dl (0-0.2) 11/22/21 AST 16 U/L (13-39) 11/23/21 ALT 8 U/L (7-52) 11/23/21 Alkaline Phosphatase 65 U/L (34-104) 11/23/21 TP 7.2 gm/dl (6.0-8.3) 11/23/21 Albumin 3.9 gm/dl (3.4-5.0) 11/23/21 Globulin 3.3 gm/dl (2.5-4.0) 11/23/21 Albumin/Globulin Ratio 1.2 (0.9-2) 11/23/21 Mg 1.8 mg/dl (1.7-2.4) 11/22/21 22:04 Calcium Level 8.7 mg/dl (8.5-10.1) 11/23/21 07:43 Prothromb Time International Ratio 1.2 (0.9-1.1) H 11/23/21 07 :43 Venous Blood pH 7.43 (7.36-7.41) H 11/23/21 00:01 Venous Blood Partial Pressure CO2 37 mmHg (38-50) L 11/23/21 00 :01 Venous Blood Partial Pressure O2 71 mmHg 11/23/21 00:01 Venous Blood HCO3 25 mmol/L 11/23/21 00:01 Venous Blood Base Excess 0.5 mEq/L 11/23/21 00:01 Venous Blood Oxygen Saturation 93.1 % 11/23/21 00:01 Microbiology 11/23/21 04:40 Gram Stain - Final Sputum,Trach Diagnostic Findings (Past 24 Hours) Chest X-Ray 11/22/21 22:25 XR chest 1V portable HISTORY: 26 years-old Female Sepsis acute sepsis COMPARISON: Chest radiograph 3 21,022 TECHNIQUE: AP view of the chest FINDINGS: The cardiomediastinal and hilar silhouettes are within normal limits. Limited exam secondary to positioning. No pneumothorax. Small pleural effusions with hazy bibasilar opacities. Bones appear grossly intact. IMPRESSION: Small pleural effusions with bibasilar opacities suggestive of at electasis versus pneumonia. ACT 112: Negative or not required by law. The above report was generated using voice recognition software. It may contain grammatical, syntax or spelling errors. Electronically signed by: Ervin Townsend M.D. 11/22/2021 11:41 PM I & O Totals 24 Hours 11/22/21 11/23/21 11/24/21 06:59 06:59 06:59 Intake Total 2420 / 2920 880 / 880 Output Total 350 / 350 Balance 2420 / 2920 530 / 530 Cumulative 11/22/21 21:41 thru 11/23/21 11:00 Intake Total 3300 Output Total 350 Balance 2950 RT Ventilator Mngmt (Last Documented) Ventilator Ordered Settings Respiratory Rate 32 11/23/21 11:28 Fraction of Inspired Oxygen 50 11/23/21 11:28 Ventilator - PT Measurements Respiratory Rate 32 PG Care Time/CCT Total # of Minutes Spent Total Time Spent with Patient: Total time spent is greater than 50% in coordination of care (as documented) at patient's floor/unit and/or counseling patient: Coding Level of Care Code 31401 Inpt Consult Level 4 Diagnoses Quadriplegic cerebral palsy G80.8 Pseudomonas aeruginosa colonization Z22.39 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
[2021-11-23] MEDS: ACETAMINOPHEN SUSP 325 MG/10.15 ML UDC PEG PRN ×2 (12:09→19:57)
[2021-11-23] MEDS: SULFA/TRIMETH SUSP 800/160MG 20ML UDC PO SCH ×2 (13:06→19:45)
--- NOTE | 2021-11-23 15:13 | Hospitalist Progress Note ---
Date of Service November 23, 2021 Assessment & Plan (1) Bilateral pneumonia: Plan: This is a 26-year-old with a history of severe cerebral palsy, tracheostomy dependent who admitted on account of with fever and tachycardia. Found to have elevated WBC and was started on empiric treatment for PNA Patient is a known carrier of Achromobacter , Pseudomonas Also found to have Entero/Rhino virus Received Zosyn and Azithromycin in the ED Has been started on Cefthazidime, will continue Await cultures Continue pulm toilet, amandeep, mucormist Appreciate Pulm recs Continue supplemental oxygen through trach She's still tachy, with somewhat low BP, continue IV fluids. (2) Achromobacter pneumonia: Plan: She has a history of Pseudomonas and Achromobacter in her sputum. 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: Plan: as above (4) Mucus plugging of bronchi: Plan: Trach care, pulmonary tolilet (5) Cortical blindness: (6) Quadriplegic cerebral palsy: Plan: Continue usual support medications (7) Depression with anxiety: Plan: Continue usual medications (8) Seizure disorder: (9) Chronic respiratory failure with hypoxia and hypercapnia: Admission and Anticipated Discharge Date Admission Date: November 23, 2021 Subjective patient seen and examined, unable to obtain any hx, patient is non verbal Review of Systems Review of Systems: unable to obtain Physical Exam Physical Exam: The patient is awake, alert non verbal HEENT--PERRL, EOMI, mucous membranes and oropharynx mildly dry Neck--Trach Heart--normal S1 and S2. No murmurs, rubs or gallops. Lungs--reduced air entry Abdomen--normal bowel sounds and soft. Mild epigastric and left sided abdominal pain Extremities--Quadriplegic Dermatologic--normal skin turgor, normal color, no abnormal lymph nodes, no rash. Neurologic--Quadriplegic Rheumatologic-- Psychiatric--unable to assess Results & Data Results & Data ([facility]) Vital Signs (Past 12 Hours) Vital Signs Temp Pulse Pulse Pulse Resp BP BP 11/23/21 15:00 108 H 37 H 11/23/21 15:00 104/66 11/23/21 14:00 106 H 48 H 11/23/21 14:00 110/51 L 11/23/21 14:41 103 H 34 H 11/23/21 13:11 101.1 F H 11/23/21 12:00 101.9 F H 11/23/21 13:00 122 H 46 H 11/23/21 13:00 95/53 L 11/23/21 12:00 126 H 61 H 11/23/21 12:00 108/69 11/23/21 11:14 107/61 11/23/21 11:14 114 H 36 H 11/23/21 11:00 113 H 53 H 11/23/21 10:00 122 H 26 H 11/23/21 10:00 106/65 11/23/21 11:28 117 H 32 H 11/23/21 11:11 120 H 103/64 11/23/21 07:15 112 H 32 H 11/23/21 09:23 116 H 39 H 11/23/21 09:23 80/48 L 11/23/21 09:00 120 H 21 11/23/21 09:50 98.9 F 11/23/21 08:00 122 H 47 H 11/23/21 07:30 121 H 29 H 11/23/21 07:07 114 H 27 H 11/23/21 07:07 91/60 L 11/23/21 07:04 116 H 32 H 11/23/21 07:00 113 H 28 H 11/23/21 07:00 79/62 L 11/23/21 06:30 115 H 17 11/23/21 06:00 111 H 28 H 11/23/21 06:00 82/68 L 11/23/21 05:30 106 H 35 H 11/23/21 05:00 106 H 38 H 11/23/21 05:00 98/65 L 11/23/21 04:52 100/70 11/23/21 04:52 103 H 46 H 11/23/21 04:30 102 H 37 H 11/23/21 07:36 11/23/21 07:34 121 H 11/23/21 07:00 11/23/21 06:01 11/23/21 04:15 107 H 35 H 11/23/21 04:51 99 H 22 100/70 11/23/21 04:01 95 H 41 H 11/23/21 04:01 100/61 11/23/21 04:00 96 H 32 H 11/23/21 04:15 90 11/23/21 03:30 11/23/21 03:15 90 27 H 11/23/21 03:15 90/65 L Pulse Ox Pulse Ox O2 Del Method O2 Del Method O2 Flow Rate FiO2 11/23/21 15:00 95 11/23/21 15:00 11/23/21 14:00 89 L 11/23/21 14:00 11/23/21 14:41 93 Trach Collar 50 11/23/21 13:11 11/23/21 12:00 11/23/21 13:00 95 11/23/21 13:00 11/23/21 12:00 90 11/23/21 12:00 11/23/21 11:14 11/23/21 11:14 91 11/23/21 11:00 92 11/23/21 10:00 90 11/23/21 10:00 11/23/21 11:28 94 Trach Collar 50 11/23/21 11:11 11/23/21 07:15 95 Trach Collar 50 11/23/21 09:23 92 11/23/21 09:23 11/23/21 09:00 91 11/23/21 09:50 11/23/21 08:00 91 11/23/21 07:30 93 11/23/21 07:07 96 11/23/21 07:07 11/23/21 07:04 97 11/23/21 07:00 98 11/23/21 07:00 11/23/21 06:30 99 11/23/21 06:00 97 11/23/21 06:00 11/23/21 05:30 98 11/23/21 05:00 92 11/23/21 05:00 11/23/21 04:52 11/23/21 04:52 95 11/23/21 04:30 95 11/23/21 07:36 Trach Collar 11/23/21 07:34 11/23/21 07:00 96 Trach Collar 11/23/21 06:01 Trach Collar 12 50 11/23/21 04:15 94 Trach Collar 12 50 11/23/21 04:51 86 L Trach Collar 12 50 11/23/21 04:01 94 11/23/21 04:01 11/23/21 04:00 92 11/23/21 04:15 11/23/21 03:30 Trach Collar 11/23/21 03:15 96 11/23/21 03:15 PG Care Time/CCT Total # of Minutes Spent Total Time Spent with Patient: Total time spent is greater than 50% in coordination of care (as documented) at patient's floor/unit and/or counseling patient: Coding Level of Care Code 87824 Subseq Hosp Care Lvl 2 Diagnoses Bilateral pneumonia J18.9 Lung location: lower lobe of lung Pneumonia type: due to unspecified organism Achromobacter pneumonia J15.6 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
[2021-11-23] MEDS ORDERED: TUBE FEEDING WATER FLUSH GT SCH (19:00)
[2021-11-23] MEDS: PATIENT'S OWN ENTERAL FEEDING PEG SCH (19:44)
[2021-11-23] MEDS: traZODone HCL 50 MG TAB PEG SCH (19:44)
[2021-11-23] MEDS: TUBE FEEDING WATER FLUSH GT SCH (19:45)
[2021-11-23] MEDS: METOPROLOL TARTRATE 25 MG TAB OG SCH (21:29)
[2021-11-24 05:54] LABS: Hematocrit (blood only) 34.4 % (34.1-44.9); Hemoglobin 11.7 g/dl (12.0-16.0); Mean Platelet Volume 9.2 fL (9.4-12.3); Platelet Count 96 K/uL (130-400); RDW Coefficient of Variation 12.7 % (11.5-14.5); RDW Standard Deviation 46.7 fL (36.4-46.3); Red Blood Count 3.44 M/uL (3.93-5.22); White Blood Count 9.55 K/ul (4.8-10.8)
[2021-11-24 06:05] LABS: INR 1.2 (0.9-1.1); Partial Thromboplastin Ratio 1.1; Partial Thromboplastin Time 31.5 Seconds (21.0-31.0); Prothrombin Time 12.4 Seconds (9.0-12.0)
[2021-11-24 06:16] LABS: Alanine Aminotransferase 6 U/L (7-52); Albumin Globulin Ratio 1.2 (0.9-2); Albumin Level 3.6 gm/dl (3.4-5.0); Alkaline Phosphatase 56 U/L (34-104); Anion Gap 6 (3-11); Aspartate Aminotransferase 13 U/L (13-39); BUN Creatinine Ratio 14.3 (10-20); Bilirubin,Total 0.3 mg/dl (0.2-1.0); Blood Urea Nitrogen 7 mg/dl (6-23); Calcium 8.8 mg/dl (8.5-10.1); Carbon Dioxide 24 mmol/L (21-32); Chloride 103 mmol/L (98-107); Creatinine Clr Calc Pharmacy 149.1 ml/min; Est GFR (African American) > 150.0 ml/min; Est GFR (Non-African American) 135.4 ml/min; Globulin 3.1 gm/dl (2.5-4.0); Glucose 83 mg/dl (70-99(Fasting)); Magnesium 1.8 mg/dl (1.7-2.4); Sodium 133 mmol/L (136-145); Total Protein 6.7 gm/dl (6.0-8.3)
[2021-11-24 06:40] LABS: Basophils # (auto) 0.02 K/uL (0-0.2); Basophils % (auto) 0.2 %; Eosinophils # (auto) 0.02 K/uL (0-0.50); Eosinophils % (auto) 0.2 %; Immature Granulocytes # (auto) 0.03 K/uL (0.00-0.02); Immature Granulocytes % (auto) 0.3 %; Lymphocytes # (auto) 0.85 K/uL (1.2-3.4); Lymphocytes % (auto) 8.9 %; Monocytes # (auto) 0.89 K/uL (0.24-0.82); Monocytes % (auto) 9.3 %; Neutrophils # (auto) 7.74 K/uL (1.4-6.5); Neutrophils % (auto) 81.1 %
[2021-11-24] MEDS: PATIENT'S OWN ENTERAL FEEDING PEG SCH ×4 (07:09→19:52)
[2021-11-24] MEDS: ALBUT/IPRATROP 3MG/0.5MG NEB 3 ML VIAL NEB SCH ×4 (07:20→20:15)
[2021-11-24] MEDS: BUDESONIDE 0.5 MG/2 ML VIAL (PULMICORT) INH SCH ×2 (07:20→20:14)
[2021-11-24] MEDS: TOBRAMYCIN 300MG NEB INH SCH ×2 (07:20→21:20)
[2021-11-24] MEDS: ACETYLCYSTEINE 10% INHAL SOLN 4 ML **DISPENSED BY RESP. INH SCH ×2 (07:20→20:14)
[2021-11-24] MEDS: TUBE FEEDING WATER FLUSH GT SCH ×4 (08:03→19:52)
[2021-11-24] MEDS: POLYETHYLENE (MIRALAX) 17 GM PACK PEG SCH (08:06)
[2021-11-24] MEDS: VALPROIC ACID 50 MG/ML UDP PEG SCH ×3 (08:36→19:55)
[2021-11-24] MEDS: METOPROLOL TARTRATE 25 MG TAB OG SCH ×2 (08:36→19:53)
[2021-11-24] MEDS: BACLOFEN 20 MG TAB PEG SCH ×3 (08:36→19:53)
[2021-11-24] MEDS: ZONISAMIDE PO SCH ×2 (08:36→19:56)
[2021-11-24] MEDS: SULFA/TRIMETH SUSP 800/160MG 20ML UDC PO SCH ×2 (08:36→19:55)
[2021-11-24] MEDS: ACETAMINOPHEN SUSP 325 MG/10.15 ML UDC PEG PRN ×2 (08:41→20:27)
--- NOTE | 2021-11-24 10:31 | Pulmonology Progress Note ---
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 Her white count was elevated. She has a history of Pseudomonas and Achromobacter in her sputum. Cultures negative to date from this admission. Recommendations: 1. Exacerbation of bronchiectasis: White blood cell count now normalized. Temperature curve improved. Agree with Fortaz for now pending speciation and sensitivity from respiratory culture. Continue Bactrim given her prior history of Achromobacter. Continue nebulized tobramycin for an additional 4 days. Additional recommendations will be based on results of respiratory cultures and clinical response. 2. Continue aggressive pulmonary toilet with suctioning as needed. She is receiving Mucomyst nebs as well which may be beneficial. Hold on hypertonic saline for now. Would consider starting this if secretions become too difficult to manage. 3. Continue supplemental oxygen via trach collar. We will continue to follow. Admission and Anticipated Discharge Date Admission Date: November 23, 2021 Subjective Patient seen and examined. EMR reviewed. No acute events overnight noted. Review of Systems Review of Systems: Unobtainable due to cognitive status Physical Exam Physical Exam: The patient is awake, on trach collar, lying in bed and in no acute distress. HEENT--PERRL, EOMI, mucous membranes and oropharynx normal Neck--supple. No JVD. No bruits. Thyroid normal, trachea midline, no adenopath y. Heart--normal S1 and S2. No murmurs, rubs or gallops. Lungs--clear bilaterally, no respiratory distress, no accessory muscle use. Abdomen--normal bowel sounds and soft. Nontender. Nondistended, no hernias or masses, no organomegaly. Extremities--no cyanosis or clubbing. No edema. There are good distal pulses b/l. Dermatologic--normal skin turgor, normal color, no abnormal lymph nodes, no rash . Neurologic--cranial nerves II through XII grossly intact. Rheumatologic--limited exam Psychiatric--as noted Results & Data Results & Data ([facility]) Vital Signs (Past 12 Hours) Vital Signs Temp Pulse Pulse Resp BP Pulse Ox Pulse Ox 11/24/21 10:00 107 H 37 H 89 L 11/24/21 09:00 100 H 31 H 92 11/24/21 10:00 37.7 C H 11/24/21 09:18 11/24/21 09:00 110 H 11/24/21 08:32 90/56 L 11/24/21 08:32 124 H 24 96 11/24/21 08:30 116 H 42 H 96 11/24/21 08:30 82/53 L 11/24/21 08:07 93/58 L 11/24/21 08:07 117 H 32 H 96 11/24/21 08:00 124 H 38 H 99 11/24/21 08:00 98/60 L 11/24/21 07:00 102 H 25 H 90 11/24/21 07:00 98/64 L 11/24/21 08:00 38.2 C H 11/24/21 08:37 95 11/24/21 06:00 115 H 42 H 93 11/24/21 06:00 94/65 L 11/24/21 05:00 91 H 26 H 95 11/24/21 05:00 97/59 L 11/24/21 04:00 91 H 27 H 95 11/24/21 04:00 37.6 C H 95/56 L 11/24/21 03:00 88 24 94 11/24/21 03:00 90/59 L 11/24/21 02:00 91 H 27 H 91 11/24/21 02:00 96/56 L 11/24/21 01:00 96 H 23 90 11/24/21 01:00 94/57 L 11/24/21 03:48 94 H 26 H 94 11/24/21 00:00 37.6 C H 101 H 27 H 89 L 11/23/21 23:00 103 H 27 H 88 L 11/23/21 23:00 95/59 L O2 Del Method O2 Del Method O2 Flow Rate O2 Flow Rate 11/24/21 10:00 11/24/21 09:00 11/24/21 10:00 11/24/21 09:18 Trach Collar 11/24/21 09:00 11/24/21 08:32 11/24/21 08:32 11/24/21 08:30 11/24/21 08:30 11/24/21 08:07 11/24/21 08:07 11/24/21 08:00 11/24/21 08:00 11/24/21 07:00 11/24/21 07:00 11/24/21 08:00 11/24/21 08:37 Trach Collar 11 11/24/21 06:00 11/24/21 06:00 11/24/21 05:00 11/24/21 05:00 11/24/21 04:00 11/24/21 04:00 11/24/21 03:00 11/24/21 03:00 11/24/21 02:00 11/24/21 02:00 11/24/21 01:00 11/24/21 01:00 11/24/21 03:48 Mechanical Vent 9 11/24/21 00:00 11/23/21 23:00 11/23/21 23:00 Laboratory Results 11/24/21 05:39 11/24/21 05:39 Microbiology 11/22/21 22:14 Blood Aerobic Blood Culture - Preliminary No growth in Aerobic bottle after 24 hours. 11/22/21 22:14 Blood Anaerobic Blood Culture - Preliminary No growth in Anaerobic bottle after 24 hours. 11/22/21 22:14 Blood Aerobic Blood Culture - Preliminary No growth in Aerobic bottle after 24 hours. 11/22/21 22:14 Blood Anaerobic Blood Culture - Preliminary No growth in Anaerobic bottle after 24 hours. 11/23/21 04:40 Sputum,Trach Gram Stain - Final Diagnostic Findings No new imaging. 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
--- NOTE | 2021-11-24 14:42 | Hospitalist Progress Note ---
Date of Service November 24, 2021 Assessment & Plan (1) Bilateral pneumonia: Plan: This is a 26-year-old with a history of severe cerebral palsy, tracheostomy dependent who admitted on account of with fever and tachycardia. Found to have elevated WBC and was started on empiric treatment for PNA Patient is a known carrier of Achromobacter , Pseudomonas Also found to have Entero/Rhino virus Received Zosyn and Azithromycin in the ED Has been started on Cefthazidime, will continue WBC is now wnl, she continues to improve clinically Await cultures Continue pulm toilet, amandeep, mucormist Appreciate Pulm recs Continue supplemental oxygen through trach (2) Achromobacter pneumonia: Plan: She has a history of Pseudomonas and Achromobacter in her sputum. 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: Plan: as above (4) Quadriplegic cerebral palsy: Plan: Continue usual support medications Patient is non verbal (5) Mucus plugging of bronchi: Plan: Trach care, pulmonary tolilet (6) Cortical blindness: (7) Depression with anxiety: Plan: Continue usual medications (8) Seizure disorder: (9) Chronic respiratory failure with hypoxia and hypercapnia: Plan D/C when clinically stable, and ok by Pulm Admission and Anticipated Discharge Date Admission Date: November 23, 2021 Subjective patient seen and examined, non verbal Review of Systems Review of Systems: unable to obtain Physical Exam Physical Exam: The patient is awake, alert non verbal HEENT--PERRL, EOMI, mucous membranes and oropharynx mildly dry Neck--Trach Heart--normal S1 and S2. No murmurs, rubs or gallops. Lungs--reduced air entry Abdomen--normal bowel sounds and soft. Mild epigastric and left sided abdominal pain Extremities--Quadriplegic Dermatologic--normal skin turgor, normal color, no abnormal lymph nodes, no rash. Neurologic--Quadriplegic Rheumatologic-- Psychiatric--unable to assess Results & Data Results & Data ([facility]) Vital Signs (Past 12 Hours) Vital Signs Temp Pulse Pulse Pulse Resp BP Pulse Ox 11/24/21 13:00 103 H 32 H 93 11/24/21 12:00 103 H 32 H 91 10/02/22 12:00 95/52 L 11/24/21 11:00 97 H 31 H 91 11/24/21 07:30 102 H 32 H 92 11/24/21 11:09 100 H 34 H 91 11/24/21 10:00 107 H 37 H 89 L 11/24/21 09:00 100 H 31 H 92 11/24/21 10:00 99.9 F H 11/24/21 09:18 11/24/21 09:00 110 H 11/24/21 08:32 90/56 L 11/24/21 08:32 124 H 24 96 11/24/21 08:30 116 H 42 H 96 11/24/21 08:30 82/53 L 11/24/21 08:07 93/58 L 11/24/21 08:07 117 H 32 H 96 11/24/21 08:00 124 H 38 H 99 11/24/21 08:00 98/60 L 11/24/21 07:00 102 H 25 H 90 11/24/21 07:00 98/64 L 11/24/21 08:00 100.8 F H 11/24/21 08:37 11/24/21 06:00 115 H 42 H 93 11/24/21 06:00 94/65 L 11/24/21 05:00 91 H 26 H 95 11/24/21 05:00 97/59 L 11/24/21 04:00 91 H 27 H 95 11/24/21 04:00 99.7 F H 95/56 L 11/24/21 03:00 88 24 94 11/24/21 03:00 90/59 L 11/24/21 03:48 94 H 26 H 94 Pulse Ox O2 Del Method O2 Del Method O2 Flow Rate O2 Flow Rate FiO2 11/24/21 13:00 11/24/21 12:00 11/24/21 12:00 11/24/21 11:00 11/24/21 07:30 Trach Collar 50 11/24/21 11:09 Trach Collar 50 11/24/21 10:00 11/24/21 09:00 11/24/21 10:00 11/24/21 09:18 Trach Collar 11/24/21 09:00 11/24/21 08:32 11/24/21 08:32 11/24/21 08:30 11/24/21 08:30 11/24/21 08:07 11/24/21 08:07 11/24/21 08:00 11/24/21 08:00 11/24/21 07:00 11/24/21 07:00 11/24/21 08:00 11/24/21 08:37 95 Trach Collar 11 11/24/21 06:00 11/24/21 06:00 11/24/21 05:00 11/24/21 05:00 11/24/21 04:00 11/24/21 04:00 11/24/21 03:00 11/24/21 03:00 11/24/21 03:48 Mechanical Vent 9 PG Care Time/CCT Total # of Minutes Spent Total Time Spent with Patient: Total time spent is greater than 50% in coordination of care (as documented) at patient's floor/unit and/or counseling patient: Coding Level of Care Code 95634 Subseq Hosp Care Lvl 2 Diagnoses Bilateral pneumonia J18.9 Lung location: lower lobe of lung Pneumonia type: due to unspecified organism Achromobacter pneumonia J15.6 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
[2021-11-24] MEDS: traZODone HCL 50 MG TAB PEG SCH (19:55)
[2021-11-25 06:18] LABS: INR 1.1 (0.9-1.1); Partial Thromboplastin Ratio 1.1; Partial Thromboplastin Time 31.1 Seconds (21.0-31.0); Prothrombin Time 11.9 Seconds (9.0-12.0)
[2021-11-25 06:24] LABS: Alanine Aminotransferase 7 U/L (7-52); Albumin Globulin Ratio 1.1 (0.9-2); Albumin Level 3.5 gm/dl (3.4-5.0); Alkaline Phosphatase 54 U/L (34-104); Anion Gap 7 (3-11); Aspartate Aminotransferase 13 U/L (13-39); BUN Creatinine Ratio 21.7 (10-20); Bilirubin,Total 0.3 mg/dl (0.2-1.0); Blood Urea Nitrogen 10 mg/dl (6-23); Calcium 8.6 mg/dl (8.5-10.1); Carbon Dioxide 23 mmol/L (21-32); Chloride 102 mmol/L (98-107); Creatinine Clr Calc Pharmacy 158.8 ml/min; Est GFR (African American) > 150.0 ml/min; Est GFR (Non-African American) 138.3 ml/min; Globulin 3.2 gm/dl (2.5-4.0); Glucose 88 mg/dl (70-99(Fasting)); Magnesium 1.7 mg/dl (1.7-2.4); Potassium 3.6 mmol/L (3.5-5.1); Sodium 132 mmol/L (136-145); Total Protein 6.7 gm/dl (6.0-8.3)
[2021-11-25 06:35] LABS: Hematocrit (blood only) 31.3 % (34.1-44.9); Hemoglobin 10.9 g/dl (12.0-16.0); Mean Corpuscular Hemoglobin 34.1 pg (25.0-34.0); Mean Corpuscular Hgb Conc 34.8 g/dL (32.0-36.0); Mean Corpuscular Volume 97.8 fL (80.0-100.0); Mean Platelet Volume 9.3 fL (9.4-12.3); Platelet Count 93 K/uL (130-400); RDW Coefficient of Variation 12.3 % (11.5-14.5); RDW Standard Deviation 44.5 fL (36.4-46.3); White Blood Count 8.06 K/ul (4.8-10.8)
[2021-11-25 06:41] LABS: Basophils # (auto) 0.01 K/uL (0-0.2); Basophils % (auto) 0.1 %; Eosinophils # (auto) 0.01 K/uL (0-0.50); Eosinophils % (auto) 0.1 %; Immature Granulocytes # (auto) 0.02 K/uL (0.00-0.02); Immature Granulocytes % (auto) 0.2 %; Lymphocytes # (auto) 0.92 K/uL (1.2-3.4); Lymphocytes % (auto) 11.4 %; Monocytes # (auto) 1.16 K/uL (0.24-0.82); Monocytes % (auto) 14.4 %; Neutrophils # (auto) 5.94 K/uL (1.4-6.5); Neutrophils % (auto) 73.8 %
--- NOTE | 2021-11-25 06:46 | Hospitalist Progress Note ---
Date of Service November 25, 2021 Assessment & Plan (1) Sepsis due to pneumonia: Plan: 26-year-old female with a history of cerebral palsy and quadriplegia, tracheostomy dependent, history of Achromobacter and Pseudomonas colonization admitted with sepsis secondary to bilateral pneumonia. Sepsis secondary to pneumonia: Patient completed a 14-day course of Levaquin for pneumonia 7 days prior to admission. Patient is a known Achromobacter and Pseudomonas colonizer. Presented to the ER by caretakers who noted increased heart rate and fever, and was tachycardic with leukocytosis to 19.69. On admission was also noted to have rhino/enterovirus on [employer] testing. Was on ceftazidime and Bactrim -> Bactrim discontinued today as sputum cultures are sensitive to ceftaz. Leukocytosis has improved to 8.06 today. Continue to monitor with daily CBC and fever curve. Continue supplemental oxygen through trach. Pulmonology is consulted and appreciate recommendations: Continue pulmonary toilet, DuoNebs, Mucomyst. Bronchoscopy performed today due to concern for worsening of left lower lobe consolidation on x-ray. Bronchoalveolar lavage samples were sent for bacterial culture, AFB culture/smear, fungal culture/smear/cytology. Continue nebulized tobramycin. 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 Continue baclofen, trazodone, zonisamide. (6) Mucus plugging of bronchi: Plan: See above (7) Depression with anxiety: Plan: Continue fluoxetine, trazodone. (8) Seizure disorder: Plan: Continue Depakote 550mg q8h. Lorazepam ordered as needed for prolonged seizures. (9) Chronic respiratory failure with hypoxia and hypercapnia: Plan: See above Plan CODE STATUS: Full code FEN: Feeds and meds through PEG tube DVT prophylaxis: Heparin 5000 units every 12 hours Dispo: PCU telemetry Admission and Anticipated Discharge Date Admission Date: November 23, 2021 Subjective Patient was febrile overnight to 39.1 Celsius. No other acute events overnight. Patient is nonverbal and unable to participate in questioning, however does appear comfortable on her baseline vent settings. Review of Systems Review of Systems: Unobtainable due to cognitive status Physical Exam Constitutional: WD/WN, vitals as above Respiratory: Patient is saturating to 95% on her mechanical vent settings Patient has crackles bilaterally in her bases, upper airway sounds noted Cardiovascular: RRR, no murmur, no edema Gastrointestinal (Abdomen): normal bowel sounds, soft, nontender, no hepatosplenomegaly Skin: no rashes, warm and dry Psychiatric: A+Ox3, euthymic affect Results & Data Results & Data ([facility]) Vital Signs (Past 12 Hours) Vital Signs Temp Pulse Pulse Resp BP Pulse Ox O2 Del Method 11/25/21 06:00 88 25 H 88 L 11/25/21 05:45 85 25 H 91 11/25/21 05:30 84 24 94 11/25/21 05:15 84 24 92 11/25/21 05:00 84 26 H 93 11/25/21 04:45 85 28 H 90 11/25/21 04:30 82 24 94 11/25/21 04:15 36.8 C 88 25 H 93 11/25/21 04:00 84 21 95 11/25/21 04:00 92/60 L 11/25/21 03:45 85 29 H 91 11/25/21 03:30 88 27 H 91 11/25/21 03:15 87 25 H 93 11/25/21 03:00 89 28 H 92 11/25/21 02:45 93 H 27 H 92 11/25/21 02:30 89 27 H 89 L 11/25/21 02:15 92 H 26 H 89 L 11/25/21 02:00 94 H 23 90 11/25/21 01:45 89 29 H 89 L 11/25/21 01:30 83 26 H 89 L 11/25/21 01:15 90 27 H 90 11/25/21 01:00 91 H 29 H 86 L 11/25/21 00:45 93 H 26 H 88 L 11/25/21 00:30 99 H 29 H 87 L 11/25/21 00:15 103 H 17 90 11/25/21 00:00 95 H 27 H 90 11/24/21 23:45 92 H 27 H 90 11/24/21 23:30 96 H 33 H 90 11/24/21 23:15 95 H 30 H 90 11/24/21 23:00 94 H 36 H 90 11/24/21 22:45 97 H 33 H 90 11/24/21 22:30 98 H 31 H 89 L 11/24/21 22:15 98 H 34 H 89 L 11/25/21 02:30 88 12 89 L 11/24/21 22:00 110 H 43 H 91 11/24/21 21:00 110 H 40 H 89 L 11/24/21 20:00 39.1 C H 120 H 36 H 93 11/24/21 19:00 112 H 39 H 95 11/24/21 22:00 91 H 30 H 97 11/24/21 21:20 99 H 29 H 91 Trach Collar 11/24/21 20:00 Trach Collar O2 Flow Rate FiO2 11/25/21 06:00 11/25/21 05:45 11/25/21 05:30 11/25/21 05:15 11/25/21 05:00 11/25/21 04:45 11/25/21 04:30 11/25/21 04:15 11/25/21 04:00 11/25/21 04:00 11/25/21 03:45 11/25/21 03:30 11/25/21 03:15 11/25/21 03:00 11/25/21 02:45 11/25/21 02:30 11/25/21 02:15 11/25/21 02:00 11/25/21 01:45 11/25/21 01:30 11/25/21 01:15 11/25/21 01:00 11/25/21 00:45 11/25/21 00:30 11/25/21 00:15 11/25/21 00:00 11/24/21 23:45 11/24/21 23:30 11/24/21 23:15 11/24/21 23:00 11/24/21 22:45 11/24/21 22:30 11/24/21 22:15 11/25/21 02:30 11/24/21 22:00 11/24/21 21:00 11/24/21 20:00 11/24/21 19:00 11/24/21 22:00 11/24/21 21:20 15 100 11/24/21 20:00 PG Care Time/CCT Total # of Minutes Spent Total Time Spent with Patient: Total time spent is greater than 50% in coordination of care (as documented) at patient's floor/unit and/or counseling patient: Coding Level of Care Code 37012 Subseq Hosp Care Lvl 3 Diagnoses Sepsis due to pneumonia J18.9; A41.9 Bilateral pneumonia J18.9 Lung location: lower lobe of lung Pneumonia type: due to unspecified organism Achromobacter pneumonia J15.6 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
[2021-11-25] MEDS: PATIENT'S OWN ENTERAL FEEDING PEG SCH ×4 (07:15→19:38)
[2021-11-25] MEDS: TUBE FEEDING WATER FLUSH GT SCH ×4 (07:15→19:39)
[2021-11-25] MEDS: BUDESONIDE 0.5 MG/2 ML VIAL (PULMICORT) INH SCH ×2 (07:29→19:57)
[2021-11-25] MEDS: ALBUT/IPRATROP 3MG/0.5MG NEB 3 ML VIAL NEB SCH ×4 (07:29→19:57)
[2021-11-25] MEDS: ACETYLCYSTEINE 10% INHAL SOLN 4 ML **DISPENSED BY RESP. INH SCH ×2 (08:15→20:01)
[2021-11-25] MEDS: TOBRAMYCIN 300MG NEB INH SCH ×2 (08:28→20:24)
--- NOTE | 2021-11-25 08:38 | XRay Report ---
SINGLE VIEW CHEST CLINICAL HISTORY: Respiratory failure. FINDINGS: An AP, portable, severe chest radiograph is compared to study dated 11/22/2021. A tracheosto my is unchanged in position. The cardiomediastinal silhouette is unremarkable. Airspace consolidation in the right mid to lower lung at the left lung base is similar to previous. Suspect small pleural e ffusions. No pneumothorax is seen. The skeletal structures are osteopenic. The bony thorax is grossly intact. IMPRESSION: 1. Bibasilar airspace consolidation is similar to previous and suggests pneumonia/aspiration pneumoni tis. Clinical correlation will be required and radiographic follow-up to resolution is recommended. 2. Suspect small pleural effusions. ACT 112: Negative or not required by law. Electronically signed by: Wily Nowak M.D. 11/25/2021 8:37 AM
[2021-11-25] MEDS: ZONISAMIDE PO SCH ×2 (08:51→19:49)
[2021-11-25] MEDS: BACLOFEN 20 MG TAB PEG SCH ×3 (08:51→19:47)
[2021-11-25] MEDS: SULFA/TRIMETH SUSP 800/160MG 20ML UDC PO SCH (08:51)
[2021-11-25] MEDS: POLYETHYLENE (MIRALAX) 17 GM PACK PEG SCH (08:51)
[2021-11-25] MEDS: VALPROIC ACID 50 MG/ML UDP PEG SCH ×3 (08:51→19:48)
[2021-11-25] MEDS: METOPROLOL TARTRATE 25 MG TAB OG SCH (08:52)
--- NOTE | 2021-11-25 09:13 | Pulmonology Progress Note ---
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 Her white count was elevated. She has a history of Pseudomonas and Achromobacter in her sputum. Cultures negative to date from this admission. -- Acute on chronic hypoxic respiratory failure Multifactorial Bio fire positive for rhinovirus COVID-19 PCR, influenza A/B negative Nasal MRSA negative History of Achromobacter and Pseudomonas in the sputum which is sensitive to ceftazidime O2 supplementation to keep oxygen saturation between 90-92% --Chronic bronchiectasis Continue with nebulized tobramycin Hypertonic saline nebulized twice a day, aggressive suctioning with chest PT Plan: Chest x-ray from today shows worsening of the left lower lobe cardiophrenic angle possible segmental collapse of the left lower lobe I will DC Bactrim and ceftazidime will cover Achromobacter as well as Pseu domonas We will try to do bronchoscopy today to clear the lungs out, consent obtained from mother after explaining risk and benefits of the procedure. Please note the above document was generated using voice recognition software. It may contain grammatical, syntax or spelling errors.Any formal questions or concerns about the content, text or information contained within the body of this dictation should be directly addressed to the provider for clarification. Admission and Anticipated Discharge Date Admission Date: November 23, 2021 Subjective Patient seen and examined at bedside. No acute distress Patient was on trach collar 15 L oxygen saturating 90-91% T-max 39.1 Review of Systems Review of Systems: Unobtainable due to cognitive status Physical Exam Physical Exam: Constitutional: No acute distress HEENT: EOMI, PERRLA, positive trach Respiratory system: Decreased air entry bilaterally, no wheeze, no rhonchi, positive crackles bilaterally CVS: S1-S2 positive, no murmurs or gallops Abdomen: Soft, nontender, nondistended, positive bowel sounds x4 Extremities: +2 pulses bilaterally radialis/ dorsalis pedis, no cyanosis, no edema Neuro: Contracture of the upper and lower extremities, spontaneously opening eyes not following commands Psych: Unable to assess G/U: Positive Cota Skin: no rashes, warm and dry Lymphatic: no cervical or axillary lymphadenopathy Results & Data Results & Data ([facility]) Vital Signs (Past 12 Hours) Vital Signs Temp Pulse Pulse Resp BP Pulse Ox Pulse Ox 11/25/21 09:00 103 H 18 11/25/21 08:00 96 H 29 H 94 11/25/21 08:00 95/55 L 11/25/21 07:00 82 25 H 86 L 11/25/21 08:11 11/25/21 08:00 37.2 C 22 93 11/25/21 08:00 93 11/25/21 07:29 82 28 H 91 11/25/21 07:22 81 11/25/21 06:00 88 25 H 88 L 11/25/21 05:45 85 25 H 91 11/25/21 05:30 84 24 94 11/25/21 05:15 84 24 92 11/25/21 05:00 84 26 H 93 11/25/21 04:45 85 28 H 90 11/25/21 04:30 82 24 94 11/25/21 04:15 36.8 C 88 25 H 93 11/25/21 04:00 84 21 95 11/25/21 04:00 92/60 L 11/25/21 03:45 85 29 H 91 11/25/21 03:30 88 27 H 91 11/25/21 03:15 87 25 H 93 11/25/21 03:00 89 28 H 92 11/25/21 02:45 93 H 27 H 92 11/25/21 02:30 89 27 H 89 L 11/25/21 02:15 92 H 26 H 89 L 11/25/21 02:00 94 H 23 90 11/25/21 01:45 89 29 H 89 L 11/25/21 01:30 83 26 H 89 L 11/25/21 01:15 90 27 H 90 11/25/21 01:00 91 H 29 H 86 L 11/25/21 00:45 93 H 26 H 88 L 11/25/21 00:30 99 H 29 H 87 L 11/25/21 00:15 103 H 17 90 11/25/21 00:00 95 H 27 H 90 11/24/21 23:45 92 H 27 H 90 11/24/21 23:30 96 H 33 H 90 11/24/21 23:15 95 H 30 H 90 11/24/21 23:00 94 H 36 H 90 11/24/21 22:45 97 H 33 H 90 11/24/21 22:30 98 H 31 H 89 L 11/24/21 22:15 98 H 34 H 89 L 11/25/21 02:30 88 12 89 L 11/24/21 22:00 110 H 43 H 91 11/24/21 22:00 91 H 30 H 97 11/24/21 21:20 99 H 29 H 91 O2 Del Method O2 Del Method O2 Flow Rate O2 Flow Rate FiO2 11/25/21 09:00 11/25/21 08:00 11/25/21 08:00 11/25/21 07:00 11/25/21 08:11 Trach Collar 11/25/21 08:00 Trach Collar 11 11/25/21 08:00 Trach Collar 11 11/25/21 07:29 Trach Collar 15 100 11/25/21 07:22 11/25/21 06:00 11/25/21 05:45 11/25/21 05:30 11/25/21 05:15 11/25/21 05:00 11/25/21 04:45 11/25/21 04:30 11/25/21 04:15 11/25/21 04:00 11/25/21 04:00 11/25/21 03:45 11/25/21 03:30 11/25/21 03:15 11/25/21 03:00 11/25/21 02:45 11/25/21 02:30 11/25/21 02:15 11/25/21 02:00 11/25/21 01:45 11/25/21 01:30 11/25/21 01:15 11/25/21 01:00 11/25/21 00:45 11/25/21 00:30 11/25/21 00:15 11/25/21 00:00 11/24/21 23:45 11/24/21 23:30 11/24/21 23:15 11/24/21 23:00 11/24/21 22:45 11/24/21 22:30 11/24/21 22:15 11/25/21 02:30 11/24/21 22:00 11/24/21 22:00 11/24/21 21:20 Trach Collar 15 100 Laboratory Results 11/25/21 05:44 11/25/21 05:44 PG Care Time/CCT Total # of Minutes Spent Total Time Spent with Patient: Total time spent is greater than 50% in coordination of care (as documented) at patient's floor/unit and/or counseling patient: Coding Level of Care Code 47459 Subseq Hosp Care Lvl 3 Diagnoses Quadriplegic cerebral palsy G80.8 Pseudomonas aeruginosa colonization Z22.39 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
[2021-11-25] MEDS ORDERED: fentaNYL citrate 100 MCG/2 ML VIAL ONE (13:16)
[2021-11-25] MEDS ORDERED: MIDAZOLAM HCL 1 MG/ML 2ML VIAL ONE (13:17)
--- NOTE | 2021-11-25 13:43 | Post Anesthesia Assessment ---
Date of Service November 25, 2021 Post Sedation Assessment Vital Signs Temp Pulse Pulse Pulse Resp BP Pulse Ox 11/25/21 11:19 102 H 29 H 90 11/25/21 11:19 102 H 29 H 90 11/25/21 10:00 104 H 35 H 90 11/25/21 09:16 114/76 11/25/21 09:16 119 H 24 93 11/25/21 09:00 103 H 18 11/25/21 08:00 96 H 29 H 94 11/25/21 08:00 95/55 L 11/25/21 07:00 82 25 H 86 L 11/25/21 08:11 11/25/21 08:00 37.2 C 22 93 11/25/21 08:00 11/25/21 07:29 82 28 H 91 11/25/21 07:22 81 11/25/21 06:00 88 25 H 88 L 11/25/21 05:45 85 25 H 91 11/25/21 05:30 84 24 94 11/25/21 05:15 84 24 92 11/25/21 05:00 84 26 H 93 11/25/21 04:45 85 28 H 90 11/25/21 04:30 82 24 94 11/25/21 04:15 36.8 C 88 25 H 93 11/25/21 04:00 84 21 95 11/25/21 04:00 92/60 L 11/25/21 03:45 85 29 H 91 11/25/21 03:30 88 27 H 91 11/25/21 03:15 87 25 H 93 11/25/21 03:00 89 28 H 92 11/25/21 02:45 93 H 27 H 92 11/25/21 02:30 89 27 H 89 L 11/25/21 02:15 92 H 26 H 89 L 11/25/21 02:00 94 H 23 90 11/25/21 01:45 89 29 H 89 L 11/25/21 01:30 83 26 H 89 L 11/25/21 01:15 90 27 H 90 11/25/21 01:00 91 H 29 H 86 L 11/25/21 00:45 93 H 26 H 88 L 11/25/21 00:30 99 H 29 H 87 L 11/25/21 00:15 103 H 17 90 11/25/21 00:00 95 H 27 H 90 11/24/21 23:45 92 H 27 H 90 11/24/21 23:30 96 H 33 H 90 11/24/21 23:15 95 H 30 H 90 11/24/21 23:00 94 H 36 H 90 11/24/21 22:45 97 H 33 H 90 11/24/21 22:30 98 H 31 H 89 L 11/24/21 22:15 98 H 34 H 89 L 11/25/21 02:30 88 12 89 L 11/24/21 22:00 110 H 43 H 91 11/24/21 21:00 110 H 40 H 89 L 11/24/21 20:00 39.1 C H 120 H 36 H 93 11/24/21 19:00 112 H 39 H 95 11/24/21 22:00 91 H 30 H 97 11/24/21 21:20 99 H 29 H 91 11/24/21 20:00 11/24/21 18:00 113 H 17 93 11/24/21 15:00 103 H 11/24/21 17:00 111 H 35 H 99 11/24/21 16:01 112/73 11/24/21 16:01 113 H 48 H 95 11/24/21 16:00 111 H 26 H 93 11/24/21 15:00 108 H 37 H 11/24/21 14:00 105 H 32 H 90 11/24/21 16:00 37.7 C H 11/24/21 15:31 105 H 28 H 92 Pulse Ox O2 Del Method O2 Del Method O2 Flow Rate O2 Flow Rate FiO2 11/25/21 11:19 11/25/21 11:19 Mechanical Vent 15 11/25/21 10:00 11/25/21 09:16 11/25/21 09:16 11/25/21 09:00 11/25/21 08:00 11/25/21 08:00 11/25/21 07:00 11/25/21 08:11 Trach Collar 11/25/21 08:00 Trach Collar 11 11/25/21 08:00 93 Trach Collar 11 11/25/21 07:29 Trach Collar 15 100 11/25/21 07:22 11/25/21 06:00 11/25/21 05:45 11/25/21 05:30 11/25/21 05:15 11/25/21 05:00 11/25/21 04:45 11/25/21 04:30 11/25/21 04:15 11/25/21 04:00 11/25/21 04:00 11/25/21 03:45 11/25/21 03:30 11/25/21 03:15 11/25/21 03:00 11/25/21 02:45 11/25/21 02:30 11/25/21 02:15 11/25/21 02:00 11/25/21 01:45 11/25/21 01:30 11/25/21 01:15 11/25/21 01:00 11/25/21 00:45 11/25/21 00:30 11/25/21 00:15 11/25/21 00:00 11/24/21 23:45 11/24/21 23:30 11/24/21 23:15 11/24/21 23:00 11/24/21 22:45 11/24/21 22:30 11/24/21 22:15 11/25/21 02:30 11/24/21 22:00 11/24/21 21:00 11/24/21 20:00 11/24/21 19:00 11/24/21 22:00 11/24/21 21:20 Trach Collar 15 100 11/24/21 20:00 Trach Collar 11/24/21 18:00 11/24/21 15:00 11/24/21 17:00 11/24/21 16:01 11/24/21 16:01 11/24/21 16:00 11/24/21 15:00 11/24/21 14:00 11/24/21 16:00 11/24/21 15:31 Trach Collar 50 Discharge Sedation Level of Care: Fast Track Phase II Post Sedation Plan On clinical assessment, the patient appears to have tolerated the sedation without complications. Patient is recovering as anticipated. Patient will continue to be monitored by nursing and may be discharged when sedation discharge criteria are met per below protocol. Upon Completions of procedure up to 15 minutes continue every 5 minute vital signs and the P.A.R. score; then discharge to a Phase I or Fast Track to Phase II per the following guidelines: * Discharge Patient to appropriate Phase II area if PAR is 8 or greater or return to pre- procedure baseline. The post - procedure orders will be as directed. * If PAR score is less than 8 or not return to pre-procedure baseline then patient will follow Phase I monitoring till PAR is reached for Phase II. The Phase I may be done in procedure room or may call to secure a Phase I area. * If naloxone or flumazenil are used for reversal, hold in Phase I for continued monitoring from when last reversal dose was given for a minimum of 60 minutes or longer pending the nurse and/or physician discretion of patient condition before discharge to Phase II. Please call the Sedation Physician to re-evaluate and complete post-note for discharge to Phase II area. Do NOT discharge from procedure sedation or Phase 1 until post- sedation evaluation note is complete by procedure /sedation MD Sedation Discharge Instructions to be given to the patient at discharge to home.
--- NOTE | 2021-11-25 13:50 | Procedure Note ---
Procedure Note: Bronchoscopy Procedure PREOPERATIVE DIAGNOSIS: Hypoxia with mucous plugging POSTOPERATIVE DIAGNOSIS: Mucous plugging left lower lobe PROCEDURE PERFORMED: Flexible fiberoptic bronchoscopy COMPLICATIONS: None. INDICATION: Hypoxia with mucous plugging PROCEDURE: After obtaining an informed consent, the patient was brought to the ICU room 12. The patient had appropriate oxygen, blood pressure, heart rate, and respiratory rate monitoring applied and monitored continuously throughout the procedure. Patient was connected to her home AVAPS machine. Subsequent to this, the patient was premedicated with 2 mg of midazolam and 75 mcg of fentanyl. After oxygenating the patient and getting her AVAPS machine PEEP to 5 bronchoscope was advanced through tracheostomy The trachea appeared normal.The bronchoscope was then advanced through the alannah, which was sharp. The scope was then advanced into the right main stem, thick secretion were appreciated at right main which was suctioned clear following which each segment, subsegement in the right upper lobe, right middle lobe and right lower lobe were visualized.. There were no other findings including evidence of mass, anatomic distortions, or hemorrhage. The bronchoscope was subsequently withdrawn and advanced into the left mainstem. Thick white secretion was appreciated at the left main which were coming from left lower lobe, liver suctioned clear. After suctioning again, each segment and subsegment was well visualized. No specific masses or other lesions were identified throughout the tracheobronchial tree on the left. The bronchoscope was then withdrawn to the mainstem. The area was suctioned clear. The bronchoscope was then withdrawn. The patient tolerated the procedure well without evidence of desaturation or complications. Bronchoalveolar lavage samples were sent for bacterial culture, AFB culture and smear, fungal culture and smear and cytology. Recommendations: Follow-up chest x-ray Continue with aggressive suctioning and chest PT Please note the above document was generated using voice recognition software. It may contain grammatical, syntax or spelling errors.Any formal questions or concerns about the content, text or information contained within the body of this dictation should be directly addressed to the provider for clarification. [facility] Procedure Codes (Charges) Pulmonary/Thoracic Procedure 1: Pulmonary and Thoracic: 51758 Bronchoscopy, clear airways Sedation/Anesthesia Procedure 1: Sedation/Anesthesia: 72674 Mod Sedation by the same physician;Init15 Min Child Age 5 & Up Procedure 2: Sedation/Anesthesia: 57460 Mod Sedation by the same physician; Ea [id number] Minutes Total Sedation Time (minutes): 24
[2021-11-25] MEDS ORDERED: MIDAZOLAM HCL 1 MG/ML 2ML VIAL IV STA (13:52)
[2021-11-25] MEDS ORDERED: fentaNYL citrate 100 MCG/2 ML VIAL IV STA (13:52)
--- NOTE | 2021-11-25 14:30 | XRay Report ---
XR chest 1V portable HISTORY: Post bronchoscopy. COMPARISON: Chest 11/25/2021. FINDINGS: A tracheostomy tube appears in good position. No pneumothorax. No pleural effusions. The he art remains normal in size. No evidence for pulmonary edema. Patchy bibasilar airspace opacities have improved in the interval. A gastrostomy tube is noted within the left upper quadrant. IMPRESSION: 1. No pneumothorax. 2. Patchy bibasilar airspace opacities have improved. 3. A tracheostomy tube appears in good position. ACT 112: Negative or not required by law. Electronically signed by: Edmund Dorman M.D. 11/25/2021 2:28 PM
[2021-11-25] MEDS: traZODone HCL 50 MG TAB PEG SCH (19:47)
[2021-11-25] MEDS: ACETAMINOPHEN SUSP 325 MG/10.15 ML UDC PEG PRN (19:51)
[2021-11-25] MEDS: SODIUM CHLOR 7% 4 ML NEB NEB SCH (20:01)
[2021-11-26 05:03] LABS: Hemoglobin 10.7 g/dl (12.0-16.0); Mean Corpuscular Hemoglobin 34.1 pg (25.0-34.0); Mean Corpuscular Hgb Conc 34.5 g/dL (32.0-36.0); Mean Corpuscular Volume 98.7 fL (80.0-100.0); Mean Platelet Volume 9.4 fL (9.4-12.3); Platelet Count 74 K/uL (130-400); RDW Coefficient of Variation 12.3 % (11.5-14.5); RDW Standard Deviation 44.9 fL (36.4-46.3); Red Blood Count 3.14 M/uL (3.93-5.22); White Blood Count 5.03 K/ul (4.8-10.8)
[2021-11-26 05:24] LABS: Anion Gap 7 (3-11); BUN Creatinine Ratio 21.4 (10-20); Blood Urea Nitrogen 9 mg/dl (6-23); Calcium 8.8 mg/dl (8.5-10.1); Carbon Dioxide 25 mmol/L (21-32); Chloride 104 mmol/L (98-107); Creatinine Clr Calc Pharmacy 173.9 ml/min; Est GFR (African American) > 150.0 ml/min; Est GFR (Non-African American) 142.5 ml/min; Glucose 90 mg/dl (70-99(Fasting)); Magnesium 1.9 mg/dl (1.7-2.4); Potassium 3.8 mmol/L (3.5-5.1); Sodium 136 mmol/L (136-145)
[2021-11-26 05:27] LABS: Partial Thromboplastin Ratio 1.1; Partial Thromboplastin Time 31.5 Seconds (21.0-31.0)
[2021-11-26] MEDS: BUDESONIDE 0.5 MG/2 ML VIAL (PULMICORT) INH SCH ×2 (07:07→19:24)
[2021-11-26] MEDS: SODIUM CHLOR 7% 4 ML NEB NEB SCH ×2 (07:07→19:24)
[2021-11-26] MEDS: ACETYLCYSTEINE 10% INHAL SOLN 4 ML **DISPENSED BY RESP. INH SCH ×2 (07:08→19:24)
[2021-11-26] MEDS: ALBUT/IPRATROP 3MG/0.5MG NEB 3 ML VIAL NEB SCH ×4 (07:08→19:24)
[2021-11-26] MEDS: TUBE FEEDING WATER FLUSH GT SCH ×4 (07:26→19:58)
[2021-11-26] MEDS: PATIENT'S OWN ENTERAL FEEDING PEG SCH ×4 (07:26→19:57)
--- NOTE | 2021-11-26 08:10 | Hospitalist Progress Note ---
Date of Service November 26, 2021 Assessment & Plan (1) Sepsis due to pneumonia: Plan: 26-year-old female with a history of cerebral palsy and quadriplegia, tracheostomy dependent, history of Achromobacter and Pseudomonas colonization admitted with sepsis secondary to bilateral pneumonia. Sepsis secondary to pneumonia: Patient completed a 14-day course of Levaquin for pneumonia 7 days prior to admission. Patient is a known Achromobacter and Pseudomonas colonizer. Presented to the ER by caretakers who noted increased heart rate and fever, and was tachycardic with leukocytosis to 19.69. On admission was also noted to have rhino/enterovirus on Bio[employer] testing. Was on ceftazidime and Bactrim -> Bactrim discontinued 11/25 as sputum cultures are sensitive to ceftaz. Leukocytosis has improved to 5.03 today. Continue to monitor with daily CBC. Continue supplemental oxygen through trach, titrating down as possible to baseline needs. Pulmonology is consulted and appreciate recommendations: Continue pulmonary toilet, DuoNebs, Mucomyst. CoughAssist added today. Bronchoscopy performed 11/25 due to concern for worsening of left lower lobe consolidation on x-ray. Bronchoalveolar lavage samples were sent for bacterial culture, AFB culture/smear, fungal culture/smear/cytology. Pseudomonas sensitive to ceftazidime growing in sputum culture. Continue nebulized tobramycin. Can repeat bronchoscopy as needed; patient has required multiple bronchoscopy in the past for secretion clearing for previous admissions for pneumonia. Suspect that continued fevers are due to rhino/enterovirus as patient's sputum cultures are sensitive to current antibiotic regimen. Continue to monitor. (2) Thrombocytopenia: Plan: Chronic; baseline ~100. Platelets today of 74; Daily CBC to monitor. 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 Continue baclofen, trazodone, zonisamide. (7) Mucus plugging of bronchi: Plan: See above (8) Depression with anxiety: Plan: Continue fluoxetine, trazodone. (9) Seizure disorder: Plan: Continue Depakote 550mg q8h. Lorazepam ordered as needed for prolonged seizures. (10) Chronic respiratory failure with hypoxia and hypercapnia: Plan: See above Plan CODE STATUS: Full code FEN: Feeds and meds through PEG tube DVT prophylaxis: Heparin 5000 units every 12 hours; hold if platelets drop below 50 Dispo: PCU telemetry Admission and Anticipated Discharge Date Admission Date: November 23, 2021 Subjective Patient did have fever x1 overnight, resolved with Tylenol and no fevers since that time. Patient is unable to express needs, however does appear comfortable in the bed. Review of Systems Review of Systems: Unobtainable due to cognitive status Physical Exam Constitutional: WD/WN, vitals as above Respiratory: Patient is saturating to 95% on 10 L by trach, FiO2 70% Patient has crackles bilaterally in her bases, upper airway sounds noted Cardiovascular: RRR, no murmur, no edema Gastrointestinal (Abdomen): normal bowel sounds, soft, nontender, no hepatosplenomegaly Skin: no rashes, warm and dry Psychiatric: A+Ox3, euthymic affect Results & Data Results & Data ([facility]) Vital Signs (Past 12 Hours) Vital Signs Temp Pulse Pulse Resp BP Pulse Ox O2 Del Method 11/26/21 07:32 118 H 23 94 Mechanical Vent 11/26/21 07:00 93 H 11/26/21 06:45 98 H 25 H 91 11/26/21 03:00 37.2 C 11/26/21 00:00 37.1 C 11/25/21 20:30 37.3 C 11/26/21 06:30 96 H 24 93 11/26/21 06:15 95 H 28 H 94 11/26/21 06:01 96 H 24 92 11/26/21 06:01 108/71 11/26/21 06:00 101 H 18 92 11/26/21 05:45 94 H 20 92 11/26/21 05:30 101 H 15 92 11/26/21 05:15 98 H 15 92 11/26/21 05:00 96 H 24 93 11/26/21 05:00 110/68 11/26/21 04:45 94 H 23 92 11/26/21 04:30 94 H 27 H 94 11/26/21 04:15 93 H 26 H 92 11/26/21 04:00 93 H 24 92 11/26/21 04:00 105/70 11/26/21 03:45 91 H 24 92 11/26/21 03:30 92 H 22 92 11/26/21 03:15 87 25 H 91 11/26/21 03:00 90 26 H 91 11/26/21 03:00 101/61 11/26/21 02:45 87 23 91 11/26/21 02:30 88 25 H 91 11/26/21 03:05 107 H 30 H 93 11/26/21 02:15 86 19 91 11/26/21 02:00 90 18 91 11/26/21 02:00 100/62 11/26/21 01:45 91 H 25 H 90 11/26/21 01:30 91 H 24 90 11/26/21 01:15 93 H 26 H 90 11/26/21 01:00 96 H 23 90 11/26/21 01:00 97/60 L 11/26/21 00:45 98 H 26 H 91 11/26/21 00:30 98 H 26 H 91 11/26/21 00:15 96 H 27 H 91 11/26/21 00:00 92 H 20 91 11/26/21 00:00 95/58 L 11/25/21 23:45 95 H 24 91 11/25/21 23:30 84 26 H 92 11/25/21 23:15 94 H 22 92 11/25/21 23:00 98 H 24 93 11/25/21 23:00 100/58 L 11/25/21 22:45 102 H 22 92 11/25/21 22:30 103 H 20 91 11/25/21 22:15 100 H 28 H 91 11/25/21 22:45 99 H 23 93 11/25/21 22:00 104 H 20 92 11/25/21 22:00 106/57 L 11/25/21 21:45 100 H 29 H 90 11/25/21 21:30 106 H 28 H 89 L 11/25/21 21:15 109 H 30 H 90 11/25/21 21:00 109 H 29 H 92 11/25/21 21:00 96/50 L 11/25/21 20:45 125 H 22 88 L 11/25/21 20:30 113 H 26 H 94 11/25/21 20:15 118 H 27 H 11/25/21 21:43 Mechanical Vent O2 Flow Rate 11/26/21 07:32 15 11/26/21 07:00 11/26/21 06:45 11/26/21 03:00 11/26/21 00:00 11/25/21 20:30 11/26/21 06:30 11/26/21 06:15 11/26/21 06:01 11/26/21 06:01 11/26/21 06:00 11/26/21 05:45 11/26/21 05:30 11/26/21 05:15 11/26/21 05:00 11/26/21 05:00 11/26/21 04:45 11/26/21 04:30 11/26/21 04:15 11/26/21 04:00 11/26/21 04:00 11/26/21 03:45 11/26/21 03:30 11/26/21 03:15 11/26/21 03:00 11/26/21 03:00 11/26/21 02:45 11/26/21 02:30 11/26/21 03:05 11/26/21 02:15 11/26/21 02:00 11/26/21 02:00 11/26/21 01:45 11/26/21 01:30 11/26/21 01:15 11/26/21 01:00 11/26/21 01:00 11/26/21 00:45 11/26/21 00:30 11/26/21 00:15 11/26/21 00:00 11/26/21 00:00 11/25/21 23:45 11/25/21 23:30 11/25/21 23:15 11/25/21 23:00 11/25/21 23:00 11/25/21 22:45 11/25/21 22:30 11/25/21 22:15 11/25/21 22:45 11/25/21 22:00 11/25/21 22:00 11/25/21 21:45 11/25/21 21:30 11/25/21 21:15 11/25/21 21:00 11/25/21 21:00 11/25/21 20:45 11/25/21 20:30 11/25/21 20:15 11/25/21 21:43 PG Care Time/CCT Total # of Minutes Spent Total Time Spent with Patient: Total time spent is greater than 50% in coordination of care (as documented) at patient's floor/unit and/or counseling patient: Coding Level of Care Code 60519 Subseq Hosp Care Lvl 3 Diagnoses Sepsis due to pneumonia J18.9; A41.9 Thrombocytopenia D69.6 Bilateral pneumonia J18.9 Lung location: lower lobe of lung Pneumonia type: due to unspecified organism Achromobacter pneumonia J15.6 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
[2021-11-26] MEDS: HEPARIN SOD 5,000 UNIT/0.5 ML VIAL SQ SCH ×2 (09:27→20:06)
[2021-11-26] MEDS: BACLOFEN 20 MG TAB PEG SCH ×3 (09:27→20:05)
[2021-11-26] MEDS: POLYETHYLENE (MIRALAX) 17 GM PACK PEG SCH (09:28)
[2021-11-26] MEDS: VALPROIC ACID 50 MG/ML UDP PEG SCH ×3 (09:28→20:11)
[2021-11-26] MEDS: ZONISAMIDE PO SCH ×2 (09:28→20:11)
[2021-11-26] MEDS: ACETAMINOPHEN SUSP 325 MG/10.15 ML UDC PEG PRN (09:56)
--- NOTE | 2021-11-26 10:17 | Pulmonology Progress Note ---
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 Her white count was elevated. She has a history of Pseudomonas and Achromobacter in her sputum. Cultures negative to date from this admission. -- Acute on chronic hypoxic respiratory failure Multifactorial Bio fire positive for rhinovirus COVID-19 PCR, influenza A/B negative Nasal MRSA negative S/p bronchoscopy 11/25/2021, mucous plugging of the left lower lobe which was suctioned out Sputum culture growing Pseudomonas, follow-up sensitivity History of Achromobacter and Pseudomonas in the sputum which is sensitive to ceftazidime O2 supplementation to keep oxygen saturation between 90-92% --Chronic bronchiectasis Continue with nebulized tobramycin Hypertonic saline nebulized twice a day, aggressive suctioning with chest PT Plan: In/out: -1.1 L, urine output 1850 Chest x-ray from today shows again mild atelectasis of the left lower lobe medial basal segment Continue with hypertonic saline, Mucomyst nebulized, tobramycin nebulized, ceftazidime Chest PT. I will add CoughAssist to the regimen Case discussed with RN and RT Please note the above document was generated using voice recognition software. It may contain grammatical, syntax or spelling errors.Any formal questions or concerns about the content, text or information contained within the body of this dictation should be directly addressed to the provider for clarification. Admission and Anticipated Discharge Date Admission Date: November 23, 2021 Subjective Patient seen and examined at bedside. No acute distress, no adverse events overnight Patient was on 10 L on her home vent saturating 92-93% Has been having low-grade fever since last 24 hours T-max 39.2 on 11/25/2021 Review of Systems Review of Systems: Unobtainable due to cognitive status Physical Exam Physical Exam: Constitutional: No acute distress HEENT: EOMI, PERRLA, positive trach Respiratory system: Decreased air entry bilaterally, no wheeze, no rhonchi, positive crackles bilaterally CVS: S1-S2 positive, no murmurs or gallops Abdomen: Soft, nontender, nondistended, positive bowel sounds x4 Extremities: +2 pulses bilaterally radialis/ dorsalis pedis, no cyanosis, no edema Neuro: Contracture of the upper and lower extremities, spontaneously opening eyes not following commands Psych: Unable to assess G/U: Positive Cota Skin: no rashes, warm and dry Lymphatic: no cervical or axillary lymphadenopathy Results & Data Results & Data ([facility]) Vital Signs (Past 12 Hours) Vital Signs Temp Pulse Pulse Resp BP Pulse Ox O2 Del Method 11/26/21 07:32 118 H 23 94 Mechanical Vent 11/26/21 07:00 93 H 11/26/21 06:45 98 H 25 H 91 11/26/21 03:00 37.2 C 11/26/21 00:00 37.1 C 11/26/21 06:30 96 H 24 93 11/26/21 06:15 95 H 28 H 94 11/26/21 06:01 96 H 24 92 11/26/21 06:01 108/71 11/26/21 06:00 101 H 18 92 11/26/21 05:45 94 H 20 92 11/26/21 05:30 101 H 15 92 11/26/21 05:15 98 H 15 92 11/26/21 05:00 96 H 24 93 11/26/21 05:00 110/68 11/26/21 04:45 94 H 23 92 11/26/21 04:30 94 H 27 H 94 11/26/21 04:15 93 H 26 H 92 11/26/21 04:00 93 H 24 92 11/26/21 04:00 105/70 11/26/21 03:45 91 H 24 92 11/26/21 03:30 92 H 22 92 11/26/21 03:15 87 25 H 91 11/26/21 03:00 90 26 H 91 11/26/21 03:00 101/61 11/26/21 02:45 87 23 91 11/26/21 02:30 88 25 H 91 11/26/21 03:05 107 H 30 H 93 11/26/21 02:15 86 19 91 11/26/21 02:00 90 18 91 11/26/21 02:00 100/62 11/26/21 01:45 91 H 25 H 90 11/26/21 01:30 91 H 24 90 11/26/21 01:15 93 H 26 H 90 11/26/21 01:00 96 H 23 90 11/26/21 01:00 97/60 L 11/26/21 00:45 98 H 26 H 91 11/26/21 00:30 98 H 26 H 91 11/26/21 00:15 96 H 27 H 91 11/26/21 00:00 92 H 20 91 11/26/21 00:00 95/58 L 11/25/21 23:45 95 H 24 91 11/25/21 23:30 84 26 H 92 11/25/21 23:15 94 H 22 92 11/25/21 23:00 98 H 24 93 11/25/21 23:00 100/58 L 11/25/21 22:45 102 H 22 92 11/25/21 22:30 103 H 20 91 11/25/21 22:15 100 H 28 H 91 11/25/21 22:45 99 H 23 93 O2 Flow Rate 11/26/21 07:32 15 11/26/21 07:00 11/26/21 06:45 11/26/21 03:00 11/26/21 00:00 11/26/21 06:30 11/26/21 06:15 11/26/21 06:01 11/26/21 06:01 11/26/21 06:00 11/26/21 05:45 11/26/21 05:30 11/26/21 05:15 11/26/21 05:00 11/26/21 05:00 11/26/21 04:45 11/26/21 04:30 11/26/21 04:15 11/26/21 04:00 11/26/21 04:00 11/26/21 03:45 11/26/21 03:30 11/26/21 03:15 11/26/21 03:00 11/26/21 03:00 11/26/21 02:45 11/26/21 02:30 11/26/21 03:05 11/26/21 02:15 11/26/21 02:00 11/26/21 02:00 11/26/21 01:45 11/26/21 01:30 11/26/21 01:15 11/26/21 01:00 11/26/21 01:00 11/26/21 00:45 11/26/21 00:30 11/26/21 00:15 11/26/21 00:00 11/26/21 00:00 11/25/21 23:45 11/25/21 23:30 11/25/21 23:15 11/25/21 23:00 11/25/21 23:00 11/25/21 22:45 11/25/21 22:30 11/25/21 22:15 11/25/21 22:45 Laboratory Results 11/26/21 04:51 11/26/21 04:51 PG Care Time/CCT Total # of Minutes Spent Total Time Spent with Patient: Total time spent is greater than 50% in coordination of care (as documented) at patient's floor/unit and/or counseling patient: Coding Level of Care Code 45715 Subseq Hosp Care Lvl 3 Diagnoses Quadriplegic cerebral palsy G80.8 Pseudomonas aeruginosa colonization Z22.39 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
[2021-11-26] MEDS: TOBRAMYCIN 300MG NEB INH SCH ×2 (11:19→20:18)
--- NOTE | 2021-11-26 11:41 | XRay Report ---
XR chest 1V portable HISTORY: Status post bronchoscopy. Pneumonia. COMPARISON: Chest 11/25/2021. FINDINGS: No pneumothorax. The heart is normal in size. A tracheostomy tube appears in good position. The right lung is clear. Patchy left basilar opacities and a small left pleural effusion have slight ly progressed. IMPRESSION: Patchy left basilar opacities and a small left pleural effusion have slightly progressed. ACT 112: Negative or not required by law. Electronically signed by: Edmund Dorman M.D. 11/26/2021 11:40 AM
[2021-11-26] MEDS: traZODone HCL 50 MG TAB PEG SCH (20:10)
[2021-11-27 04:12] LABS: Hematocrit (blood only) 30.4 % (34.1-44.9); Hemoglobin 10.4 g/dl (12.0-16.0); Platelet Count 75 K/uL (130-400); White Blood Count 3.87 K/ul (4.8-10.8)
[2021-11-27 04:36] LABS: Anion Gap 7 (3-11); BUN Creatinine Ratio 30.6 (10-20); Blood Urea Nitrogen 11 mg/dl (6-23); Calcium 8.9 mg/dl (8.5-10.1); Carbon Dioxide 27 mmol/L (21-32); Chloride 104 mmol/L (98-107); Creatinine Clr Calc Pharmacy 204.4 ml/min; Est GFR (African American) > 150.0 ml/min; Est GFR (Non-African American) 149.9 ml/min; Glucose 99 mg/dl (70-99(Fasting)); Potassium 3.9 mmol/L (3.5-5.1); Sodium 138 mmol/L (136-145)
[2021-11-27 04:49] LABS: Mean Corpuscular Hgb Conc 34.2 g/dL (32.0-36.0); Mean Corpuscular Volume 99.3 fL (80.0-100.0); RDW Coefficient of Variation 12.1 % (11.5-14.5); RDW Standard Deviation 43.8 fL (36.4-46.3); Red Blood Count 3.06 M/uL (3.93-5.22)
[2021-11-27] MEDS: ACETYLCYSTEINE 10% INHAL SOLN 4 ML **DISPENSED BY RESP. INH SCH ×2 (06:58→19:06)
[2021-11-27] MEDS: SODIUM CHLOR 7% 4 ML NEB NEB SCH ×2 (06:58→19:06)
[2021-11-27] MEDS: TOBRAMYCIN 300MG NEB INH SCH (06:58)
[2021-11-27] MEDS: BUDESONIDE 0.5 MG/2 ML VIAL (PULMICORT) INH SCH ×2 (06:59→19:06)
[2021-11-27] MEDS: ALBUT/IPRATROP 3MG/0.5MG NEB 3 ML VIAL NEB SCH ×4 (06:59→19:06)
--- NOTE | 2021-11-27 07:05 | XRay Report ---
XR chest 1V portable HISTORY: 26 years-old Female f/u follow-up study in a patient with respiratory failure COMPARISON: Chest radiograph 11/26/2021 TECHNIQUE: AP view of the chest FINDINGS: Tracheostomy cannula overlies the midline the level of the clavicular heads. Cardiomediastinal and hi lar silhouettes are unchanged. Small left pleural effusion with stable to mildly progressed left basi lar consolidation. No pneumothorax or overt pulmonary edema. The bones of the chest appear grossly in tact. IMPRESSION: Small left pleural effusion with stable to mildly progressed left basilar consolidation. ACT 112: Negative or not required by law. The above report was generated using voice recognition software. It may contain grammatical, syntax o r spelling errors. Electronically signed by: Ervin Townsend M.D. 11/27/2021 7:03 AM
--- NOTE | 2021-11-27 07:10 | Hospitalist Progress Note ---
Date of Service November 27, 2021 Assessment & Plan (1) Sepsis due to pneumonia: Plan: 26-year-old female with a history of cerebral palsy and quadriplegia, tracheostomy dependent, history of Achromobacter and Pseudomonas colonization admitted with sepsis secondary to bilateral pneumonia. Sepsis secondary to pneumonia: Patient completed a 14-day course of Levaquin for pneumonia 7 days prior to admission. Patient is a known Achromobacter and Pseudomonas colonizer. Presented to the ER by caretakers who noted increased heart rate and fever, and was tachycardic with leukocytosis to 19.69. On admission was also noted to have rhino/enterovirus on Biofire testing. Was on ceftazidime and Bactrim -> Bactrim discontinued 11/25 as sputum cultures are sensitive to ceftaz. White blood cell count of 3.87 this morning, decreased from admission. Continue to monitor with daily CBC. Continue supplemental oxygen through trach, titrating down as possible to baseline needs. Patient is tolerating FiO2 50% at this time which is improvement from yesterday. Pulmonology is consulted and appreciate recommendations: Continue pulmonary toilet, DuoNebs, Mucomyst, CoughAssist. Bronchoscopy performed 11/25 due to concern for worsening of left lower lobe consolidation on x-ray. Pseudomonas sensitive to ceftazidime growing in sputum culture; given recurrent resistant pseudomonal infections will increase ceftazidime to 2 g every 8 hours. Antibiotics to complete on 11/30. Nebulized tobramycin discontinued 11/27. Can repeat bronchoscopy as needed; patient has required multiple bronchoscopy in the past for secretion clearing for previous admissions for pneumonia (2) Thrombocytopenia: Plan: Chronic; baseline ~100. Platelets today of 75; Daily CBC to monitor. 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 Continue baclofen, trazodone, zonisamide. (7) Mucus plugging of bronchi: Plan: See above (8) Depression with anxiety: Plan: Continue fluoxetine, trazodone. (9) Seizure disorder: Plan: Continue Depakote 550mg q8h. Lorazepam ordered as needed for prolonged seizures. (10) Chronic respiratory failure with hypoxia and hypercapnia: Plan: See above Plan CODE STATUS: Full code FEN: Feeds and meds through PEG tube DVT prophylaxis: Heparin 5000 units every 12 hours; hold if platelets drop below 50 Dispo: PCU telemetry Admission and Anticipated Discharge Date Admission Date: November 23, 2021 Subjective Patient without fevers overnight. Did have a brief episode of hypoxia to low 80s which improved after aggressive suctioning. Afterward patient appeared somewhat uncomfortable and was noted to have what the bed. She was cleaned and changed, and also given Tylenol at this time with improvement in her discomfort. Review of Systems Review of Systems: Unobtainable due to cognitive status Physical Exam Constitutional: WD/WN, vitals as above Comfortable appearing after receiving Tylenol Neck: Trach in place Respiratory: Patient is saturating to 95% on 10 L by trach, FiO2 50% Patient has crackles bilaterally in her bases, upper airway sounds noted Cardiovascular: RRR, no murmur, no edema Gastrointestinal (Abdomen): normal bowel sounds, soft, nontender, no hepatosp lenomegaly Skin: no rashes, warm and dry Neurologic: Upper extremity limb contracture bilaterally Psychiatric: Orientation: alert Results & Data Results & Data ([facility]) Vital Signs (Past 12 Hours) Vital Signs Temp Pulse Pulse Resp BP Pulse Ox O2 Del Method 11/27/21 06:30 88 22 92 11/27/21 06:15 68 22 94 11/27/21 06:00 84 24 92 11/27/21 06:00 98/69 L 11/27/21 05:45 82 25 H 93 11/27/21 05:30 79 23 93 11/27/21 05:15 78 19 94 11/27/21 05:00 77 20 92 11/27/21 05:00 94/68 L 11/27/21 04:45 66 28 H 90 11/27/21 04:30 77 22 93 11/27/21 04:15 77 27 H 92 11/27/21 04:00 84 18 92 11/27/21 04:00 107/71 11/27/21 03:45 84 16 93 11/27/21 03:30 83 21 94 11/27/21 03:15 75 20 94 11/27/21 03:00 78 24 94 11/27/21 03:00 99/63 L 11/27/21 02:45 79 22 93 11/27/21 02:30 77 19 95 11/27/21 02:15 82 13 91 11/27/21 02:00 80 21 91 11/27/21 02:00 98/71 L 11/27/21 03:04 36.6 C 11/27/21 01:45 81 21 92 11/27/21 01:30 71 26 H 94 11/27/21 01:15 78 24 94 11/27/21 01:00 80 22 94 11/27/21 01:00 103/71 11/27/21 00:45 71 19 98 11/27/21 00:30 78 22 95 11/27/21 00:15 76 20 95 11/27/21 00:00 74 22 96 11/27/21 00:00 99/68 L 11/26/21 23:45 75 23 94 11/26/21 23:30 75 18 95 11/26/21 23:15 79 18 95 11/26/21 23:00 78 24 94 11/26/21 23:00 101/62 11/26/21 22:45 77 19 94 11/26/21 22:30 92 11/26/21 22:15 82 18 92 11/26/21 22:00 77 20 91 11/26/21 22:00 88/54 L 11/26/21 23:56 75 11/26/21 22:39 36.3 C L 11/26/21 21:45 86 17 91 11/26/21 21:30 77 21 90 11/26/21 21:15 89 19 90 11/26/21 21:00 90 18 91 11/26/21 21:00 90/51 L 11/26/21 21:32 Mechanical Vent 11/26/21 20:45 88 29 H 89 L 11/26/21 20:30 94 H 39 H 93 11/26/21 20:15 90 22 95 11/26/21 20:00 98 H 20 95 11/26/21 20:00 102/66 11/26/21 19:45 88 22 96 11/26/21 19:30 87 15 94 11/26/21 19:15 85 28 H 94 11/26/21 19:30 36.3 C L 11/26/21 19:30 91 H 26 H 50 L Trach Collar O2 Flow Rate 11/27/21 06:30 11/27/21 06:15 11/27/21 06:00 11/27/21 06:00 11/27/21 05:45 11/27/21 05:30 11/27/21 05:15 11/27/21 05:00 11/27/21 05:00 11/27/21 04:45 11/27/21 04:30 11/27/21 04:15 11/27/21 04:00 11/27/21 04:00 11/27/21 03:45 11/27/21 03:30 11/27/21 03:15 11/27/21 03:00 11/27/21 03:00 11/27/21 02:45 11/27/21 02:30 11/27/21 02:15 11/27/21 02:00 11/27/21 02:00 11/27/21 03:04 11/27/21 01:45 11/27/21 01:30 11/27/21 01:15 11/27/21 01:00 11/27/21 01:00 11/27/21 00:45 11/27/21 00:30 11/27/21 00:15 11/27/21 00:00 11/27/21 00:00 11/26/21 23:45 11/26/21 23:30 11/26/21 23:15 11/26/21 23:00 11/26/21 23:00 11/26/21 22:45 11/26/21 22:30 11/26/21 22:15 11/26/21 22:00 11/26/21 22:00 11/26/21 23:56 11/26/21 22:39 11/26/21 21:45 11/26/21 21:30 11/26/21 21:15 11/26/21 21:00 11/26/21 21:00 11/26/21 21:32 11/26/21 20:45 11/26/21 20:30 11/26/21 20:15 11/26/21 20:00 11/26/21 20:00 11/26/21 19:45 11/26/21 19:30 11/26/21 19:15 11/26/21 19:30 11/26/21 19:30 10 PG Care Time/CCT Total # of Minutes Spent Total Time Spent with Patient: Total time spent is greater than 50% in coordination of care (as documented) at patient's floor/unit and/or counseling patient: Coding Level of Care Code 08298 Subseq Hosp Care Lvl 3 Diagnoses Sepsis due to pneumonia J18.9; A41.9 Thrombocytopenia D69.6 Bilateral pneumonia J18.9 Lung location: lower lobe of lung Pneumonia type: due to unspecified organism Achromobacter pneumonia J15.6 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
[2021-11-27] MEDS: TUBE FEEDING WATER FLUSH GT SCH ×4 (07:42→20:15)
[2021-11-27] MEDS: PATIENT'S OWN ENTERAL FEEDING PEG SCH ×4 (07:42→20:34)
[2021-11-27] MEDS: POLYETHYLENE (MIRALAX) 17 GM PACK PEG SCH (09:24)
[2021-11-27] MEDS: HEPARIN SOD 5,000 UNIT/0.5 ML VIAL SQ SCH ×2 (09:24→20:13)
[2021-11-27] MEDS: BACLOFEN 20 MG TAB PEG SCH ×3 (09:24→20:16)
[2021-11-27] MEDS: VALPROIC ACID 50 MG/ML UDP PEG SCH ×3 (09:24→20:19)
--- NOTE | 2021-11-27 09:24 | Pulmonology Progress Note ---
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 Her white count was elevated. She has a history of Pseudomonas and Achromobacter in her sputum. Cultures negative to date from this admission. -- Acute on chronic hypoxic respiratory failure Multifactorial Bio fire positive for rhinovirus COVID-19 PCR, influenza A/B negative Nasal MRSA negative S/p bronchoscopy 11/25/2021, mucous plugging of the left lower lobe which was suctioned out Sputum culture growing Pseudomonas which is resistant to levofloxacin and tobramycin History of Achromobacter and Pseudomonas in the sputum which is sensitive to ceftazidime O2 supplementation to keep oxygen saturation between 90-92% --Chronic bronchiectasis Continue with nebulized tobramycin Hypertonic saline nebulized twice a day, aggressive suctioning with chest PT Plan: In/out: -160, urine output 1650 Chest x-ray from today again shows collapse of the left lower medial basal segment. Patient is saturating 91-92% on trach collar at the time of examination Would continue with CoughAssist, Mucomyst as well as hypertonic saline I will DC tobramycin nebulized given the Klebsiella is resistant to tobramycin Case discussed with RN and RT Please note the above document was generated using voice recognition software. It may contain grammatical, syntax or spelling errors.Any formal questions or concerns about the content, text or information contained within the body of this dictation should be directly addressed to the provider for clarification. Admission and Anticipated Discharge Date Admission Date: November 23, 2021 Subjective Patient seen and examined at bedside. No acute distress, no adverse events overnight. Patient's heart rate was in the low 90s at the time of examination with saturation 91-92% on 6-8 L trach collar She has been afebrile since 24 hours. T-max 37.8. Review of Systems 2 Review of Systems: Unobtainable due to cognitive status Physical Exam Physical Exam: Constitutional: No acute distress HEENT: EOMI, PERRLA, positive trach Respiratory system: Decreased air entry bilaterally, no wheeze, no rhonchi, positive crackles bilaterally CVS: S1-S2 positive, no murmurs or gallops Abdomen: Soft, nontender, nondistended, positive bowel sounds x4 Extremities: +2 pulses bilaterally radialis/ dorsalis pedis, no cyanosis, no edema Neuro: Contracture of the upper and lower extremities, spontaneously opening eyes not following commands Psych: Unable to assess G/U: Positive Cota Skin: no rashes, warm and dry Lymphatic: no cervical or axillary lymphadenopathy Results & Data Results & Data ([facility]) Vital Signs (Past 12 Hours) Vital Signs Temp Pulse Pulse Resp BP Pulse Ox O2 Del Method 11/27/21 07:47 108 H 22 92 Trach Collar 11/27/21 07:00 87 22 98/61 L 93 Trach Collar 11/27/21 07:00 36.6 C 11/27/21 06:30 88 22 92 11/27/21 06:15 68 22 94 11/27/21 06:00 84 24 92 11/27/21 06:00 98/69 L 11/27/21 05:45 82 25 H 93 11/27/21 05:30 79 23 93 11/27/21 05:15 78 19 94 11/27/21 05:00 77 20 92 11/27/21 05:00 94/68 L 11/27/21 04:45 66 28 H 90 11/27/21 04:30 77 22 93 11/27/21 04:15 77 27 H 92 11/27/21 04:00 84 18 92 11/27/21 04:00 107/71 11/27/21 03:45 84 16 93 11/27/21 03:30 83 21 94 11/27/21 03:15 75 20 94 11/27/21 03:00 78 24 94 11/27/21 03:00 99/63 L 11/27/21 02:45 79 22 93 11/27/21 02:30 77 19 95 11/27/21 02:15 82 13 91 11/27/21 02:00 80 21 91 11/27/21 02:00 98/71 L 11/27/21 03:04 36.6 C 11/27/21 01:45 81 21 92 11/27/21 01:30 71 26 H 94 11/27/21 01:15 78 24 94 11/27/21 01:00 80 22 94 11/27/21 01:00 103/71 11/27/21 00:45 71 19 98 11/27/21 00:30 78 22 95 11/27/21 00:15 76 20 95 11/27/21 00:00 74 22 96 11/27/21 00:00 99/68 L 11/26/21 23:45 75 23 94 11/26/21 23:30 75 18 95 11/26/21 23:15 79 18 95 11/26/21 23:00 78 24 94 11/26/21 23:00 101/62 11/26/21 22:45 77 19 94 11/26/21 22:30 92 11/26/21 22:15 82 18 92 11/26/21 22:00 77 20 91 11/26/21 22:00 88/54 L 11/26/21 23:56 75 11/26/21 22:39 36.3 C L 11/26/21 21:45 86 17 91 11/26/21 21:30 77 21 90 11/26/21 21:32 Mechanical Vent O2 Flow Rate FiO2 11/27/21 07:47 10 5 11/27/21 07:00 10 50 11/27/21 07:00 11/27/21 06:30 11/27/21 06:15 11/27/21 06:00 11/27/21 06:00 11/27/21 05:45 11/27/21 05:30 11/27/21 05:15 11/27/21 05:00 11/27/21 05:00 11/27/21 04:45 11/27/21 04:30 11/27/21 04:15 11/27/21 04:00 11/27/21 04:00 11/27/21 03:45 11/27/21 03:30 11/27/21 03:15 11/27/21 03:00 11/27/21 03:00 11/27/21 02:45 11/27/21 02:30 11/27/21 02:15 11/27/21 02:00 11/27/21 02:00 11/27/21 03:04 11/27/21 01:45 11/27/21 01:30 11/27/21 01:15 11/27/21 01:00 11/27/21 01:00 11/27/21 00:45 11/27/21 00:30 11/27/21 00:15 11/27/21 00:00 11/27/21 00:00 11/26/21 23:45 11/26/21 23:30 11/26/21 23:15 11/26/21 23:00 11/26/21 23:00 11/26/21 22:45 11/26/21 22:30 11/26/21 22:15 11/26/21 22:00 11/26/21 22:00 11/26/21 23:56 11/26/21 22:39 11/26/21 21:45 11/26/21 21:30 11/26/21 21:32 Laboratory Results 11/27/21 03:55 11/27/21 03:55 PG Care Time/CCT Total # of Minutes Spent Total Time Spent with Patient: Total time spent is greater than 50% in coordination of care (as documented) at patient's floor/unit and/or counseling patient: Coding Level of Care Code 97849 Subseq Hosp Care Lvl 2 Diagnoses Quadriplegic cerebral palsy G80.8 Pseudomonas aeruginosa colonization Z22.39 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
[2021-11-27] MEDS: ZONISAMIDE PO SCH ×2 (09:25→20:20)
[2021-11-27] MEDS: ACETAMINOPHEN SUSP 325 MG/10.15 ML UDC PEG PRN (10:48)
[2021-11-27] MEDS: traZODone HCL 50 MG TAB PEG SCH (20:18)
[2021-11-28 06:41] LABS: Hematocrit (blood only) 30.3 % (34.1-44.9); Hemoglobin 10.4 g/dl (12.0-16.0); Mean Corpuscular Hemoglobin 33.5 pg (25.0-34.0); Mean Corpuscular Hgb Conc 34.3 g/dL (32.0-36.0); Mean Corpuscular Volume 97.7 fL (80.0-100.0); Mean Platelet Volume 9.3 fL (9.4-12.3); Platelet Count 104 K/uL (130-400); RDW Standard Deviation 43.1 fL (36.4-46.3); White Blood Count 4.64 K/ul (4.8-10.8)
[2021-11-28 06:42] LABS: Platelet Estimate Decreased (Normal)
[2021-11-28 06:59] LABS: Anion Gap 7 (3-11); BUN Creatinine Ratio 31.4 (10-20); Blood Urea Nitrogen 11 mg/dl (6-23); Calcium 8.9 mg/dl (8.5-10.1); Carbon Dioxide 26 mmol/L (21-32); Chloride 103 mmol/L (98-107); Creatinine Clr Calc Pharmacy 200.5 ml/min; Est GFR (African American) > 150.0 ml/min; Est GFR (Non-African American) > 150.0 ml/min; Glucose 88 mg/dl (70-99(Fasting)); Sodium 136 mmol/L (136-145)
[2021-11-28] MEDS: ALBUT/IPRATROP 3MG/0.5MG NEB 3 ML VIAL NEB SCH ×4 (07:22→19:34)
[2021-11-28] MEDS: SODIUM CHLOR 7% 4 ML NEB NEB SCH ×2 (07:22→19:40)
[2021-11-28] MEDS: BUDESONIDE 0.5 MG/2 ML VIAL (PULMICORT) INH SCH ×2 (07:22→19:34)
[2021-11-28] MEDS: ACETYLCYSTEINE 10% INHAL SOLN 4 ML **DISPENSED BY RESP. INH SCH ×2 (07:22→19:45)
--- NOTE | 2021-11-28 07:53 | XRay Report ---
XR chest 1V portable HISTORY: 26 years-old Female f/u acute shortness of breath COMPARISON: Chest radiograph 11/27/2021 TECHNIQUE: Portable AP view of the chest FINDINGS: Patient is mildly rotated. Tracheostomy cannula appears unchanged. The cardiomediastinal and hilar si lhouettes are within normal limits. Small left pleural effusion with persistent left basilar consolid ation, not significantly changed. Mild right lung base opacities are also noted. Bones appear grossly intact. IMPRESSION: 1. Small left pleural effusion with stable left basilar consolidation. 2. There are new mild right lung base opacities. ACT 112: Negative or not required by law. The above report was generated using voice recognition software. It may contain grammatical, syntax o r spelling errors. Electronically signed by: Ervin Townsend M.D. 11/28/2021 7:52 AM
[2021-11-28] MEDS: PATIENT'S OWN ENTERAL FEEDING PEG SCH ×4 (07:58→19:14)
[2021-11-28] MEDS: TUBE FEEDING WATER FLUSH GT SCH ×4 (07:58→19:14)
--- NOTE | 2021-11-28 07:59 | Hospitalist Progress Note ---
Date of Service November 28, 2021 Assessment & Plan (1) Sepsis due to pneumonia: Plan: 26-year-old female with a history of cerebral palsy and quadriplegia, tracheostomy dependent, history of Achromobacter and Pseudomonas colonization admitted with sepsis secondary to bilateral pneumonia. Sepsis secondary to pneumonia: Presented to the ER by caretakers who noted increased heart rate and fever, and was tachycardic with leukocytosis to 19.69. Patient completed a 14-day course of Levaquin for pneumonia 7 days prior to admission. Patient is a known Achromobacter and Pseudomonas colonizer. Rhino enterovirus positive on [employer] testing. Ceftazidime to complete 7-day course on 11/30. WBC count has down trended to normal with antibiotics. Continue supplemental oxygen through trach, titrating down as possible to baseline needs, goal SPO2 of 90-92%. Pulmonology is consulted and appreciate recommendations: Continue pulmonary toilet, DuoNebs, Mucomyst, CoughAssist. Bronchoscopy performed 11/25 and again 11/28 due to concern for worsening of left lower lobe consolidation on x-ray; thick secretions were suctioned. Can repeat bronchoscopy as needed; patient has required multiple bronchoscopy in the past for secretion clearing for previous admissions for pneumonia (2) Thrombocytopenia: Plan: Chronic; baseline ~100. Platelets 104 today. Daily CBC. 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 Continue baclofen, trazodone, zonisamide. (7) Mucus plugging of bronchi: Plan: See above (8) Depression with anxiety: Plan: Continue fluoxetine, trazodone. (9) Seizure disorder: Plan: Continue Depakote 550mg q8h. Lorazepam ordered as needed for prolonged seizures. (10) Chronic respiratory failure with hypoxia and hypercapnia: Plan: See above Plan CODE STATUS: Full code FEN: Feeds and meds through PEG tube DVT prophylaxis: Heparin 5000 units every 12 hours; hold if platelets drop below 50 Dispo: PCU telemetry Admission and Anticipated Discharge Date Admission Date: November 23, 2021 Subjective Patient without any acute events overnight, and has not had a fever since 11/25 at 7:30 PM. Patient appears comfortable on my exam. Review of Systems Constitutional: no fever and no chills Respiratory: + cough (Intermittent) Cardiovascular: no chest pain and no palpitations Gastrointestinal: no abdominal pain, no nausea and no vomiting Physical Exam Constitutional: WD/WN, vitals as above Neck: Trach in place Respiratory: Patient is saturating to 90% on 10 L by trach, FiO2 70% Patient has crackles in bilateral lung bases Cardiovascular: RRR, no murmur, no edema Gastrointestinal (Abdomen): normal bowel sounds, soft, nontender, no hepatosplenomegaly Skin: no rashes, warm and dry Neurologic: Upper extremity limb contracture bilaterally Does not follow commands Psychiatric: Orientation: alert Genitourinary: Cota in place Results & Data Results & Data ([facility]) Vital Signs (Past 12 Hours) Vital Signs Temp Pulse Pulse Resp BP Pulse Ox O2 Del Method 11/28/21 07:25 84 34 H 93 Trach Collar 11/28/21 03:00 79 24 95 11/28/21 03:00 106/67 11/28/21 02:00 93 H 24 97 11/28/21 02:00 109/73 11/28/21 01:55 36.9 C 11/28/21 01:00 86 23 95 11/28/21 01:00 93/63 L 11/28/21 00:00 84 27 H 92 11/28/21 00:00 91/63 L 11/27/21 23:00 87 29 H 90 11/27/21 23:00 92/56 L 11/27/21 22:00 97 H 45 H 92 11/27/21 22:00 96/47 L 11/27/21 21:19 100 H 26 H 96 11/27/21 21:19 93/60 L 11/27/21 21:18 103 H 51 H 96 11/27/21 21:18 74/43 L 11/27/21 21:00 106 H 45 H 94 11/27/21 23:00 37.1 C 11/27/21 21:32 Mechanical Vent 11/27/21 20:45 102/64 11/27/21 20:45 106 H 38 H 92 11/27/21 20:02 113 H 25 H 86 L 11/27/21 20:00 115 H 12 90 FiO2 11/28/21 07:25 50 11/28/21 03:00 11/28/21 03:00 11/28/21 02:00 11/28/21 02:00 11/28/21 01:55 11/28/21 01:00 11/28/21 01:00 11/28/21 00:00 11/28/21 00:00 11/27/21 23:00 11/27/21 23:00 11/27/21 22:00 11/27/21 22:00 11/27/21 21:19 11/27/21 21:19 11/27/21 21:18 11/27/21 21:18 11/27/21 21:00 11/27/21 23:00 11/27/21 21:32 11/27/21 20:45 11/27/21 20:45 11/27/21 20:02 11/27/21 20:00 PG Care Time/CCT Total # of Minutes Spent Total Time Spent with Patient: Total time spent is greater than 50% in coordination of care (as documented) at patient's floor/unit and/or counseling patient: Coding Level of Care Code 97423 Subseq Hosp Care Lvl 3 Diagnoses Sepsis due to pneumonia J18.9; A41.9 Thrombocytopenia D69.6 Bilateral pneumonia J18.9 Lung location: lower lobe of lung Pneumonia type: due to unspecified organism Achromobacter pneumonia J15.6 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
[2021-11-28] MEDS: HEPARIN SOD 5,000 UNIT/0.5 ML VIAL SQ SCH ×2 (08:05→19:54)
[2021-11-28] MEDS: ZONISAMIDE PO SCH ×2 (09:05→19:56)
[2021-11-28] MEDS: POLYETHYLENE (MIRALAX) 17 GM PACK PEG SCH (09:06)
[2021-11-28] MEDS: VALPROIC ACID 50 MG/ML UDP PEG SCH ×3 (09:06→19:55)
[2021-11-28] MEDS: BACLOFEN 20 MG TAB PEG SCH ×3 (09:07→19:55)
[2021-11-28] MEDS ORDERED: MIDAZOLAM HCL 1 MG/ML 2ML VIAL ONE (09:59)
[2021-11-28] MEDS ORDERED: fentaNYL citrate 100 MCG/2 ML VIAL ONE (10:00)
--- NOTE | 2021-11-28 10:02 | Pulmonology Progress Note ---
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 Her white count was elevated. She has a history of Pseudomonas and Achromobacter in her sputum. Cultures negative to date from this admission. -- Acute on chronic hypoxic respiratory failure Multifactorial Bio fire positive for rhinovirus COVID-19 PCR, influenza A/B negative Nasal MRSA negative S/p bronchoscopy 11/25/2021, mucous plugging of the left lower lobe which was suctioned out Sputum culture growing Pseudomonas which is resistant to levofloxacin and tobramycin History of Achromobacter and Pseudomonas in the sputum which is sensitive to ceftazidime O2 supplementation to keep oxygen saturation between 90-92% --Chronic bronchiectasis Continue with nebulized tobramycin Hypertonic saline nebulized twice a day, aggressive suctioning with chest PT Plan: In/out: -721, urine output 901 Chest x-ray from today shows worsening left lower lobe atelectasis, right lower lobe mild haziness. Given the worsening opacity of the left lower side since last 2 days would bronc her today. Patient's mom was called and made aware regarding plan for bronchoscopy. She understands and agrees with plan. Consent is already in place from previous bronchoscopy. Continue with CoughAssist, Mucomyst as well as hypertonic saline Case discussed with RN and RT Patient's mom Martha [phone] Please note the above document was generated using voice recognition software. It may contain grammatical, syntax or spelling errors.Any formal questions or concerns about the content, text or information contained within the body of this dictation should be directly addressed to the provider for clarification. Admission and Anticipated Discharge Date Admission Date: November 23, 2021 Subjective Patient seen and examined at bedside. No acute distress, no adverse events overnight Has been afebrile for more than 24 hours Blood pressure is on the softer side. Saturating 93-94% on 9 L trach collar Review of Systems Review of Systems: All systems reviewed & are unremarkable except as noted in Subjective Physical Exam Physical Exam: Constitutional: No acute distress HEENT: EOMI, PERRLA, positive trach Respiratory system: Decreased air entry bilaterally, no wheeze, no rhonchi, positive crackles bilaterally CVS: S1-S2 positive, no murmurs or gallops Abdomen: Soft, nontender, nondistended, positive bowel sounds x4 Extremities: +2 pulses bilaterally radialis/ dorsalis pedis, no cyanosis, no edema Neuro: Contracture of the upper and lower extremities, spontaneously opening eyes not following commands Psych: Unable to assess G/U: Positive Cota Skin: no rashes, warm and dry Lymphatic: no cervical or axillary lymphadenopathy Results & Data Results & Data ([facility]) Vital Signs (Past 12 Hours) Vital Signs Temp Pulse Pulse Resp BP Pulse Ox O2 Del Method 11/28/21 09:00 86 30 H 94 11/28/21 08:00 97 H 30 H 93 11/28/21 08:00 108/63 11/28/21 07:00 86 23 91 11/28/21 07:00 86/71 L 11/28/21 08:00 37.3 C 11/28/21 07:25 84 34 H 93 Trach Collar 11/28/21 03:00 79 24 95 11/28/21 03:00 106/67 11/28/21 02:00 93 H 24 97 11/28/21 02:00 109/73 11/28/21 01:55 36.9 C 11/28/21 01:00 86 23 95 11/28/21 01:00 93/63 L 11/28/21 00:00 84 27 H 92 11/28/21 00:00 91/63 L 11/27/21 23:00 87 29 H 90 11/27/21 23:00 92/56 L 11/27/21 22:00 97 H 45 H 92 11/27/21 22:00 96/47 L 11/27/21 23:00 37.1 C FiO2 11/28/21 09:00 11/28/21 08:00 11/28/21 08:00 11/28/21 07:00 11/28/21 07:00 11/28/21 08:00 11/28/21 07:25 70 11/28/21 03:00 11/28/21 03:00 11/28/21 02:00 11/28/21 02:00 11/28/21 01:55 11/28/21 01:00 11/28/21 01:00 11/28/21 00:00 11/28/21 00:00 11/27/21 23:00 11/27/21 23:00 11/27/21 22:00 11/27/21 22:00 11/27/21 23:00 Laboratory Results 11/28/21 05:39 11/28/21 05:39 PG Care Time/CCT Total # of Minutes Spent Total Time Spent with Patient: Total time spent is greater than 50% in coordination of care (as documented) at patient's floor/unit and/or counseling patient: Coding Level of Care Code 19073 Subseq Hosp Care Lvl 2 Diagnoses Quadriplegic cerebral palsy G80.8 Pseudomonas aeruginosa colonization Z22.39 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
[2021-11-28] MEDS ORDERED: MIDAZOLAM HCL 1 MG/ML 2ML VIAL IV STA (11:40)
[2021-11-28] MEDS ORDERED: fentaNYL citrate 100 MCG/2 ML VIAL IV STA (11:41)
[2021-11-28] MEDS ORDERED: NORMOSOL-R 500 ML IV ONE ×3 (11:42→14:56)
--- NOTE | 2021-11-28 12:17 | XRay Report ---
XR chest 1V portable HISTORY: 26 years-old Female post bronch status post bronchoscopy COMPARISON: Chest radiograph 11/28/2021 TECHNIQUE: Supine AP view of the chest FINDINGS: Tracheostomy cannula is noted about the level of the clavicles. The patient is rotated towards the le ft. Persistent small left pleural effusion with left basilar opacities, stable to mildly worsened. No postprocedural pneumothorax identified. IMPRESSION: 1. No postprocedural pneumothorax identified. 2. Small left pleural effusion with persistent left basilar consolidation. ACT 112: Negative or not required by law. The above report was generated using voice recognition software. It may contain grammatical, syntax o r spelling errors. Electronically signed by: Ervin Townsend M.D. 11/28/2021 12:15 PM
--- NOTE | 2021-11-28 12:42 | Procedure Note ---
Procedure Note: Bronchoscopy Procedure PREOPERATIVE DIAGNOSIS: Hypoxia with mucous plugging POSTOPERATIVE DIAGNOSIS: Mucous plugging left lower lobe PROCEDURE PERFORMED: Flexible fiberoptic bronchoscopy COMPLICATIONS: None. INDICATION: Hypoxia with mucous plugging PROCEDURE: After obtaining an informed consent from patient's mother, the patient was brought to the ICU room 12. The patient had appropriate oxygen, blood pressure, heart rate, and respiratory rate monitoring applied and monitored continuously throughout the procedure. Patient was connected to her home AVAPS machine. Lidocaine was instilled at the alannah Subsequent to this, the patient was premedicated with 1 mg of midazolam and 25 mcg of fentanyl. After oxygenating the patient and getting her AVAPS machine PEEP to 5 bronchoscope was advanced through tracheostomy The trachea appeared normal.The bronchoscope was then advanced through the alannah, which was sharp. The scope was then advanced into the right main stem, minimal thick secretion were appreciated in right lower lobe which was suctioned clear following which each segment, subsegement in the right upper lobe, right middle lobe and right lower lobe were visualized.. There were no other findings including evidence of mass, anatomic distortions, or hemorrhage. The bronchoscope was subsequently withdrawn and advanced into the left mainstem. Significant thick white secretion was appreciated in the left lower lobe which were suctioned clear. After suctioning again, each segment and subsegment was well visualized. No specific masses or other lesions were identified throughout the tracheobronchial tree on the left. Mucomyst was used in the left lower lobe to make the secretions thinner. The bronchoscope was then withdrawn to the mainstem. The area was suctioned clear. The bronchoscope was then withdrawn. The patient tolerated the procedure well without evidence of desaturation or complications. Recommendations: Follow-up chest x-ray Continue with aggressive suctioning and chest PT Please note the above document was generated using voice recognition software. It may contain grammatical, syntax or spelling errors.Any formal questions or concerns about the content, text or information contained within the body of this dictation should be directly addressed to the provider for clarification. [facility] [place]arges) Pulmonary/Thoracic Procedure 1: Pulmonary and Thoracic: 98474 Bronchoscopy, clear airways Sedation/Anesthesia Procedure 1: Sedation/Anesthesia: 18213 Mod Sedation by the same physician;Init15 Min Child Age 5 & Up Total Sedation Time (minutes): 25 Procedure 2: Sedation/Anesthesia: 03197 Mod Sedation by the same physician; Ea [id number] Minutes Total Sedation Time (minutes): 25
--- NOTE | 2021-11-28 12:44 | Post Anesthesia Assessment ---
Date of Service November 28, 2021 Post Sedation Assessment Vital Signs Temp Pulse Pulse Resp BP Pulse Ox Pulse Ox 11/28/21 11:35 11/28/21 11:48 91 H 31 H 93 11/28/21 11:46 93 H 31 H 94 11/28/21 11:45 94 H 29 H 95 11/28/21 11:45 94/55 L 11/28/21 11:44 95 H 30 H 95 11/28/21 11:42 98 H 32 H 96 11/28/21 11:42 98/52 L 11/28/21 11:40 102 H 30 H 95 11/28/21 11:40 93/57 L 11/28/21 11:38 102 H 31 H 95 11/28/21 11:38 96/56 L 11/28/21 11:36 120 H 29 H 95 11/28/21 11:36 118/72 11/28/21 11:34 136 H 31 H 95 11/28/21 11:34 138/86 11/28/21 11:33 131/106 H 11/28/21 11:33 138 H 21 95 11/28/21 11:32 124 H 24 96 11/28/21 11:30 128 H 41 H 96 11/28/21 11:30 84/51 L 11/28/21 10:24 94 H 22 94 11/28/21 10:00 93 H 23 93 11/28/21 10:00 96/71 L 11/28/21 09:00 101/56 L 11/28/21 10:00 91 11/28/21 07:00 11/28/21 07:00 79 11/28/21 09:00 86 30 H 94 11/28/21 08:00 97 H 30 H 93 11/28/21 08:00 108/63 11/28/21 07:00 86 23 91 11/28/21 07:00 86/71 L 11/28/21 08:00 37.3 C 11/28/21 07:25 84 34 H 93 11/28/21 03:00 79 24 95 11/28/21 03:00 106/67 11/28/21 02:00 93 H 24 97 11/28/21 02:00 109/73 11/28/21 01:55 36.9 C 11/28/21 01:00 86 23 95 11/28/21 01:00 93/63 L 11/28/21 00:00 84 27 H 92 11/28/21 00:00 91/63 L 11/27/21 19:00 88 11/27/21 23:00 87 29 H 90 11/27/21 23:00 92/56 L 11/27/21 22:00 97 H 45 H 92 11/27/21 22:00 96/47 L 11/27/21 21:19 100 H 26 H 96 11/27/21 21:19 93/60 L 11/27/21 21:18 103 H 51 H 96 11/27/21 21:18 74/43 L 11/27/21 21:00 106 H 45 H 94 11/27/21 23:00 37.1 C 11/27/21 21:32 11/27/21 20:45 102/64 11/27/21 20:45 106 H 38 H 92 11/27/21 20:02 113 H 25 H 86 L 11/27/21 20:00 115 H 12 90 11/27/21 19:00 94 H 25 H 91 11/27/21 19:00 89/73 L 11/27/21 19:00 36.4 C 11/27/21 19:09 94 H 27 H 91 11/27/21 18:00 100 H 26 H 100/62 92 11/27/21 17:00 102 H 24 106/72 91 11/27/21 16:14 102 H 21 104/64 95 11/27/21 15:00 100 H 24 98/57 L 92 11/27/21 14:00 108 H 22 89/62 L 92 11/27/21 13:00 106 H 21 92/61 L 93 11/27/21 16:23 37.2 C 11/27/21 15:05 99 H 30 H 90 O2 Del Method O2 Del Method O2 Flow Rate O2 Flow Rate FiO2 11/28/21 11:35 Mechanical Vent 11/28/21 11:48 11/28/21 11:46 11/28/21 11:45 11/28/21 11:45 11/28/21 11:44 11/28/21 11:42 11/28/21 11:42 11/28/21 11:40 11/28/21 11:40 11/28/21 11:38 11/28/21 11:38 11/28/21 11:36 11/28/21 11:36 11/28/21 11:34 11/28/21 11:34 11/28/21 11:33 11/28/21 11:33 11/28/21 11:32 11/28/21 11:30 11/28/21 11:30 11/28/21 10:24 Trach Collar 50 11/28/21 10:00 11/28/21 10:00 11/28/21 09:00 11/28/21 10:00 Trach Collar 10 11/28/21 07:00 Mechanical Vent, Trach Collar 10 11/28/21 07:00 11/28/21 09:00 11/28/21 08:00 11/28/21 08:00 11/28/21 07:00 11/28/21 07:00 11/28/21 08:00 11/28/21 07:25 Trach Collar 70 11/28/21 03:00 11/28/21 03:00 11/28/21 02:00 11/28/21 02:00 11/28/21 01:55 11/28/21 01:00 11/28/21 01:00 11/28/21 00:00 11/28/21 00:00 11/27/21 19:00 11/27/21 23:00 11/27/21 23:00 11/27/21 22:00 11/27/21 22:00 11/27/21 21:19 11/27/21 21:19 11/27/21 21:18 11/27/21 21:18 11/27/21 21:00 11/27/21 23:00 11/27/21 21:32 Mechanical Vent 11/27/21 20:45 11/27/21 20:45 11/27/21 20:02 11/27/21 20:00 11/27/21 19:00 11/27/21 19:00 11/27/21 19:00 11/27/21 19:09 Trach Collar 10 50 11/27/21 18:00 Trach Collar 10 50 11/27/21 17:00 Trach Collar 10 50 11/27/21 16:14 Trach Collar 10 50 11/27/21 15:00 Trach Collar 10 50 10/05/22 14:00 Trach Collar 10 50 11/27/21 13:00 Trach Collar 10 50 11/27/21 16:23 11/27/21 15:05 Trach Collar 50 Discharge Sedation Level of Care: Fast Track Phase II Post Sedation Plan On clinical assessment, the patient appears to have tolerated the sedation without complications. Patient is recovering as anticipated. Patient will continue to be monitored by nursing and may be discharged when sedation discharge criteria are met per below protocol. Upon Completions of procedure up to 15 minutes continue every 5 minute vital signs and the P.A.R. score; then discharge to a Phase I or Fast Track to Phase II per the following guidelines: * Discharge Patient to appropriate Phase II area if PAR is 8 or greater or return to pre- procedure baseline. The post - procedure orders will be as directed. * If PAR score is less than 8 or not return to pre-procedure baseline then patient will follow Phase I monitoring till PAR is reached for Phase II. The Phase I may be done in procedure room or may call to secure a Phase I area. * If naloxone or flumazenil are used for reversal, hold in Phase I for continued monitoring from when last reversal dose was given for a minimum of 60 minutes or longer pending the nurse and/or physician discretion of patient condition before discharge to Phase II. Please call the Sedation Physician to re-evaluate and complete post-note for discharge to Phase II area. Do NOT discharge from procedure sedation or Phase 1 until post- sedation evaluation note is complete by procedure /sedation MD Sedation Discharge Instructions to be given to the patient at discharge to home.
[2021-11-28] MEDS: traZODone HCL 50 MG TAB PEG SCH (19:54)
[2021-11-29] MEDS: PATIENT'S OWN ENTERAL FEEDING PEG SCH ×4 (06:33→19:57)
[2021-11-29] MEDS: TUBE FEEDING WATER FLUSH GT SCH ×4 (06:33→19:57)
[2021-11-29 06:58] LABS: Anion Gap 6 (3-11); BUN Creatinine Ratio 19.4 (10-20); Blood Urea Nitrogen 6 mg/dl (6-23); Calcium 8.8 mg/dl (8.5-10.1); Carbon Dioxide 26 mmol/L (21-32); Chloride 105 mmol/L (98-107); Creatinine Clr Calc Pharmacy 228.2 ml/min; Est GFR (African American) > 150.0 ml/min; Est GFR (Non-African American) > 150.0 ml/min; Glucose 90 mg/dl (70-99(Fasting)); Potassium 4.6 mmol/L (3.5-5.1); Sodium 137 mmol/L (136-145)
[2021-11-29] MEDS: BUDESONIDE 0.5 MG/2 ML VIAL (PULMICORT) INH SCH ×2 (07:04→19:18)
[2021-11-29] MEDS: ALBUT/IPRATROP 3MG/0.5MG NEB 3 ML VIAL NEB SCH ×4 (07:04→19:18)
[2021-11-29] MEDS: ACETYLCYSTEINE 10% INHAL SOLN 4 ML **DISPENSED BY RESP. INH SCH ×2 (07:04→19:35)
[2021-11-29] MEDS: SODIUM CHLOR 7% 4 ML NEB NEB SCH ×2 (07:04→19:33)
[2021-11-29] MEDS: POLYETHYLENE (MIRALAX) 17 GM PACK PEG SCH (07:37)
[2021-11-29] MEDS: ZONISAMIDE PO SCH ×2 (07:37→19:58)
[2021-11-29] MEDS: HEPARIN SOD 5,000 UNIT/0.5 ML VIAL SQ SCH ×2 (07:38→19:57)
[2021-11-29] MEDS: PATIENT'S OWN ENTERAL FEEDING GT SCH (07:38)
[2021-11-29] MEDS: VALPROIC ACID 50 MG/ML UDP PEG SCH ×3 (07:38→19:58)
[2021-11-29] MEDS: BACLOFEN 20 MG TAB PEG SCH ×3 (07:38→19:58)
--- NOTE | 2021-11-29 07:39 | Hospitalist Progress Note ---
Date of Service November 29, 2021 Assessment & Plan (1) Sepsis due to pneumonia: Plan: 26-year-old female with a history of cerebral palsy and quadriplegia, tracheostomy dependent, history of Achromobacter and Pseudomonas colonization admitted with sepsis secondary to bilateral pneumonia. Sepsis secondary to pneumonia: Presented to the ER by caretakers who noted increased heart rate and fever, and was tachycardic with leukocytosis to 19.69. Patient completed a 14-day course of Levaquin for pneumonia 7 days prior to admission. Patient is a known Achromobacter and Pseudomonas colonizer. Rhino/enterovirus positive on [employer] testing. Ceftazidime started on admission, to complete 7-day course on 11/30. WBC count has downtrended to baseline with antibiotics. Continue supplemental oxygen through trach, titrating down as possible to baseline needs. Pulmonology is consulted and appreciate recommendations: Continue pulmonary toilet, DuoNebs, Mucomyst, CoughAssist. Bronchoscopy performed 11/25 and 11/28 due to concern for worsening of left lower lobe consolidation on x-ray; thick secretions were suctioned. Can repeat bronchoscopy as needed; patient has required multiple bronchoscopy in the past for secretion clearing for previous admissions for pneumonia. Goal SPO2 90-92%. (2) Thrombocytopenia: Plan: Chronic; baseline ~100. Platelets 114 today. Daily CBC. 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 Continue baclofen, trazodone, zonisamide. (7) Mucus plugging of bronchi: Plan: See above (8) Depression with anxiety: Plan: Continue fluoxetine, trazodone. (9) Seizure disorder: Plan: Continue Depakote 550mg q8h. Lorazepam ordered as needed for prolonged seizures. (10) Chronic respiratory failure with hypoxia and hypercapnia: Plan: See above Plan CODE STATUS: Full code FEN: Feeds and meds through PEG tube DVT prophylaxis: Heparin 5000 units every 12 hours; hold if platelets drop below 50 Dispo: PCU telemetry Admission and Anticipated Discharge Date Admission Date: November 23, 2021 Subjective Overnight patient briefly had increased oxygen demand of 12 L nasal cannula, which is since been de-escalated to 9 L with FiO2 of 50%. This morning during conversation with mom she was describing that since she has 24-hour care at home, they perform suction every 10 to 30 minutes on her due to her inability to clear her secretions. Review of Systems Constitutional: no fever and no chills Respiratory: + cough (Intermittent) Gastrointestinal: no vomiting and no diarrhea/loose stools Physical Exam Constitutional: WD/WN, vitals as above Neck: Trach in place Respiratory: Patient is saturating to 97% on 10 L by trach, FiO2 50% Patient has crackles in bilateral lung bases Cardiovascular: RRR, no murmur, no edema Gastrointestinal (Abdomen): normal bowel sounds, soft, nontender, no hepatosplenomegaly Skin: no rashes, warm and dry Neurologic: Upper extremity limb contracture bilaterally Does not follow commands Psychiatric: A+Ox3, euthymic affect Orientation: alert Genitourinary: Cota in place Results & Data Results & Data ([facility]) Vital Signs (Past 12 Hours) Vital Signs Temp Pulse Pulse Resp BP Pulse Ox O2 Del Method 11/29/21 07:06 83 26 H 95 Trach Collar 11/29/21 06:00 71 17 95/68 L 96 Mechanical Vent 11/29/21 05:00 73 18 102/67 92 Mechanical Vent 11/29/21 04:00 36.7 C 84 23 110/74 94 Mechanical Vent 11/29/21 03:00 84 18 110/71 97 Mechanical Vent 11/29/21 02:00 86 20 105/63 98 Mechanical Vent 11/29/21 03:59 88 25 H 92 11/29/21 01:00 75 20 107/67 98 Mechanical Vent 11/29/21 00:00 36.8 C 81 16 96/61 L 100 Mechanical Vent 11/28/21 23:00 75 18 91/59 L 97 Mechanical Vent 11/28/21 22:00 87 24 92/58 L 93 Mechanical Vent 11/28/21 21:00 91 H 26 H 111/66 96 Trach Collar 11/28/21 20:00 37.2 C 104 H 28 H 111/74 94 Trach Collar 11/28/21 21:52 82 27 H 92 11/28/21 20:00 Trach Collar 11/28/21 19:45 107 H 29 H 94 Trach Collar O2 Flow Rate FiO2 11/29/21 07:06 12 70 10/07/22 06:00 12 11/29/21 05:00 12 11/29/21 04:00 12 11/29/21 03:00 12 11/29/21 02:00 12 11/29/21 03:59 11/29/21 01:00 12 11/29/21 00:00 12 11/28/21 23:00 12 11/28/21 22:00 12 11/28/21 21:00 10 70 11/28/21 20:00 10 70 11/28/21 21:52 11/28/21 20:00 10 70 11/28/21 19:45 10 70 PG Care Time/CCT Total # of Minutes Spent Total Time Spent with Patient: Total time spent is greater than 50% in coordination of care (as documented) at patient's floor/unit and/or counseling patient: Coding Level of Care Code 40502 Subseq Hosp Care Lvl 3 Diagnoses Sepsis due to pneumonia J18.9; A41.9 Thrombocytopenia D69.6 Bilateral pneumonia J18.9 Lung location: lower lobe of lung Pneumonia type: due to unspecified organism Achromobacter pneumonia J15.6 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
--- NOTE | 2021-11-29 07:59 | Pulmonology Progress Note ---
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 Her white count was elevated. She has a history of Pseudomonas and Achromobacter in her sputum. Cultures negative to date from this admission. -- Acute on chronic hypoxic respiratory failure Multifactorial Bio fire positive for rhinovirus COVID-19 PCR, influenza A/B negative Nasal MRSA negative S/p bronchoscopy 11/25/2021, mucous plugging of the left lower lobe which was suctioned out Sputum culture growing Pseudomonas which is resistant to levofloxacin and tobramycin History of Achromobacter and Pseudomonas in the sputum which is sensitive to ceftazidime O2 supplementation to keep oxygen saturation between 90-92% --Chronic bronchiectasis Continue with nebulized tobramycin Hypertonic saline nebulized twice a day, aggressive suctioning with chest PT Plan: In/out: +2.3 L, urine output 1300 mL Chest x-ray from today shows improvement compared to yesterday. Left lower lobe haziness/atelectasis has improved. Patient is still needing significant oxygen requirement which is new from the baseline. Hopefully it will improve with time Continue with CoughAssist, Mucomyst as well as hypertonic saline Case discussed with RN and RT Patient's mom Martha [phone] Please note the above document was generated using voice recognition software. It may contain grammatical, syntax or spelling errors.Any formal questions or concerns about the content, text or information contained within the body of this dictation should be directly addressed to the provider for clarification. Admission and Anticipated Discharge Date Admission Date: November 23, 2021 Subjective Patient seen and examined at bedside. No acute distress, no adverse events overnight Has been afebrile for more than 12 hours Saturating 91-92% on 60% FiO2 Review of Systems Review of Systems: Unobtainable due to cognitive status Physical Exam Physical Exam: Constitutional: No acute distress HEENT: EOMI, PERRLA, positive trach Respiratory system: Decreased air entry bilaterally, no wheeze, no rhonchi, positive crackles bilaterally CVS: S1-S2 positive, no murmurs or gallops Abdomen: Soft, nontender, nondistended, positive bowel sounds x4 Extremities: +2 pulses bilaterally radialis/ dorsalis pedis, no cyanosis, no edema Neuro: Contracture of the upper and lower extremities, spontaneously opening eyes not following commands Psych: Unable to assess G/U: Positive Cota Skin: no rashes, warm and dry Lymphatic: no cervical or axillary lymphadenopathy Results & Data Results & Data ([facility]) Vital Signs (Past 12 Hours) Vital Signs Temp Pulse Pulse Resp BP Pulse Ox O2 Del Method 11/29/21 07:06 83 26 H 95 Trach Collar 11/29/21 06:00 71 17 95/68 L 96 Mechanical Vent 11/29/21 05:00 73 18 102/67 92 Mechanical Vent 11/29/21 04:00 36.7 C 84 23 110/74 94 Mechanical Vent 11/29/21 03:00 84 18 110/71 97 Mechanical Vent 11/29/21 02:00 86 20 105/63 98 Mechanical Vent 11/29/21 03:59 88 25 H 92 11/29/21 01:00 75 20 107/67 98 Mechanical Vent 11/29/21 00:00 36.8 C 81 16 96/61 L 100 Mechanical Vent 11/28/21 23:00 75 18 91/59 L 97 Mechanical Vent 11/28/21 22:00 87 24 92/58 L 93 Mechanical Vent 11/28/21 21:00 91 H 26 H 111/66 96 Trach Collar 11/28/21 20:00 37.2 C 104 H 28 H 111/74 94 Trach Collar 11/28/21 21:52 82 27 H 92 11/28/21 20:00 Trach Collar O2 Flow Rate FiO2 11/29/21 07:06 12 70 11/29/21 06:00 12 11/29/21 05:00 12 11/29/21 04:00 12 11/29/21 03:00 12 11/29/21 02:00 12 11/29/21 03:59 11/29/21 01:00 12 11/29/21 00:00 12 11/28/21 23:00 12 11/28/21 22:00 12 11/28/21 21:00 10 70 11/28/21 20:00 10 70 11/28/21 21:52 11/28/21 20:00 10 70 Laboratory Results 11/29/21 05:39 PG Care Time/CCT Total # of Minutes Spent Total Time Spent with Patient: Total time spent is greater than 50% in coordination of care (as documented) at patient's floor/unit and/or counseling patient: Coding Level of Care Code 21980 Subseq Hosp Care Lvl 2 Diagnoses Quadriplegic cerebral palsy G80.8 Pseudomonas aeruginosa colonization Z22.39 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
[2021-11-29 08:09] LABS: Basophils # (auto) 0.02 K/uL (0-0.2); Basophils % (auto) 0.5 %; Eosinophils # (auto) 0.04 K/uL (0-0.50); Eosinophils % (auto) 0.9 %; Hematocrit (blood only) 31.3 % (34.1-44.9); Hemoglobin 10.5 g/dl (12.0-16.0); Immature Granulocytes # (auto) 0.05 K/uL (0.00-0.02); Immature Granulocytes % (auto) 1.1 %; Lymphocytes % (auto) 18.3 %; Mean Corpuscular Hemoglobin 33.3 pg (25.0-34.0); Mean Corpuscular Hgb Conc 33.5 g/dL (32.0-36.0); Mean Corpuscular Volume 99.4 fL (80.0-100.0); Mean Platelet Volume 9.7 fL (9.4-12.3); Monocytes # (auto) 0.42 K/uL (0.24-0.82); Monocytes % (auto) 9.6 %; Neutrophils # (auto) 3.03 K/uL (1.4-6.5); Neutrophils % (auto) 69.6 %; Platelet Count 114 K/uL (130-400); Platelet Estimate Decreased (Normal); Polychromasia 1+; RDW Coefficient of Variation 12.1 % (11.5-14.5); Red Blood Count 3.15 M/uL (3.93-5.22); Toxic Vacuolation 1+; White Blood Count 4.36 K/ul (4.8-10.8)
[2021-11-29] MEDS ORDERED: NON-FORMULARY PATIENT'S OWN MED GT SCH (09:00)
--- NOTE | 2021-11-29 13:16 | XRay Report ---
SINGLE VIEW CHEST CLINICAL HISTORY: Respiratory failure. FINDINGS: An AP, portable, severe chest radiograph is compared to study dated 11/28/2021. The examinat ion is degraded by portable technique and patient rotation. A tracheostomy is unchanged in position. The cardiomediastinal silhouette is unremarkable. There is a small left pleural effusion with persis tent left basilar consolidation. Minimal airspace opacities are seen in the right lower lung there is also likely trace right pleural effusion. No pneumothorax is seen. The skeletal structures are osteo penic. The bony thorax is grossly intact. IMPRESSION: 1. A small left pleural effusion with left basilar consolidation is similar to yesterday. 2. There is also likely trace right pleural effusion. ACT 112: Negative or not required by law. Electronically signed by: Wily Nowak M.D. 11/29/2021 1:15 PM
[2021-11-29] MEDS: traZODone HCL 50 MG TAB PEG SCH (19:58)
[2021-11-30 06:09] LABS: Hematocrit (blood only) 33.1 % (34.1-44.9); Hemoglobin 11.2 g/dl (12.0-16.0); Mean Corpuscular Hemoglobin 34.1 pg (25.0-34.0); Mean Corpuscular Hgb Conc 33.8 g/dL (32.0-36.0); Mean Corpuscular Volume 100.9 fL (80.0-100.0); Mean Platelet Volume 8.7 fL (9.4-12.3); Platelet Count 132 K/uL (130-400); RDW Standard Deviation 43.7 fL (36.4-46.3); Red Blood Count 3.28 M/uL (3.93-5.22); White Blood Count 5.61 K/ul (4.8-10.8)
[2021-11-30 06:34] LABS: Anion Gap 6 (3-11); BUN Creatinine Ratio 23.3 (10-20); Blood Urea Nitrogen 10 mg/dl (6-23); Calcium 9.4 mg/dl (8.5-10.1); Carbon Dioxide 27 mmol/L (21-32); Chloride 103 mmol/L (98-107); Creatinine Clr Calc Pharmacy 153.1 ml/min; Est GFR (African American) > 150.0 ml/min; Est GFR (Non-African American) 141.4 ml/min; Glucose 93 mg/dl (70-99(Fasting)); Potassium 4.2 mmol/L (3.5-5.1); Sodium 136 mmol/L (136-145)
--- NOTE | 2021-11-30 07:11 | Hospitalist Progress Note ---
Date of Service November 30, 2021 Assessment & Plan (1) Sepsis due to pneumonia: Plan: 26-year-old female with a history of cerebral palsy and quadriplegia, tracheostomy dependent, history of Achromobacter and Pseudomonas colonization admitted with sepsis secondary to bilateral pneumonia. Sepsis secondary to pneumonia: Presented to the ER by caretakers who noted increased heart rate and fever, and was tachycardic with leukocytosis to 19.69. Patient completed a 14-day course of Levaquin for pneumonia 7 days prior to admission. Patient is a known Achromobacter and Pseudomonas colonizer. Rhino/enterovirus positive on Biofire testing. Ceftazidime started on admission, to complete 7-day course on 11/30. WBC count has downtrended to baseline with antibiotics. Patient is currently on room air, titrate oxygen as needed based on needs. Pulmonology is consulted and appreciate recommendations: Continue pulmonary toilet, DuoNebs, Mucomyst, CoughAssist. Bronchoscopy performed 11/25 and 11/28 due to concern for worsening of left lower lobe consolidation on x-ray; thick secretions were suctioned. Goal SPO2 90-92%. Will have home care nurses available on Thursday; discharge Thursday if no changes in care plan. (2) Thrombocytopenia: Plan: Chronic; baseline ~100. Platelets 132 today. 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 Continue baclofen, trazodone, zonisamide. (7) Mucus plugging of bronchi: Plan: See above (8) Depression with anxiety: Plan: Continue fluoxetine, trazodone. (9) Seizure disorder: Plan: Continue Depakote 550mg q8h. Lorazepam as needed for prolonged seizures. (10) Chronic respiratory failure with hypoxia and hypercapnia: Plan: See above Plan CODE STATUS: Full code FEN: Feeds and meds through PEG tube DVT prophylaxis: Heparin 5000 units every 12 hours; hold if platelets drop below 50 Dispo: PCU Telemetry Admission and Anticipated Discharge Date Admission Date: November 23, 2021 Subjective Patient without any acute events overnight. This morning was able to wean to room air with oxygen saturations 88-93%. Appears comfortable in the room. Review of Systems Review of Systems: Unobtainable due to cognitive status Physical Exam Constitutional: WD/WN, vitals as above Neck: Trach in place Respiratory: Patient is saturating to 93% Patient has crackles in bilateral lung bases Cardiovascular: RRR, no murmur, no edema Gastrointestinal (Abdomen): normal bowel sounds, soft, nontender, no hepatosplenomegaly Skin: no rashes, warm and dry Neurologic: Upper extremity limb contracture bilaterally Does not follow commands Psychiatric: Orientation: alert Genitourinary: Cota in place Results & Data Results & Data ([facility]) Vital Signs (Past 12 Hours) Vital Signs Temp Pulse Pulse Resp BP Pulse Ox Pulse Ox 11/30/21 05:00 86 20 94 11/30/21 04:49 99 H 21 96 11/30/21 04:49 99/70 L 11/30/21 04:30 85 18 97 11/30/21 04:00 74 22 95 11/30/21 06:00 37.0 C 11/30/21 03:30 80 18 95 11/30/21 03:29 101/72 11/30/21 03:29 77 24 96 11/30/21 03:23 62 20 95 11/30/21 03:00 90 22 94 11/30/21 02:30 88 24 96 11/30/21 02:00 79 23 96 11/30/21 01:30 76 22 96 11/30/21 02:27 79 20 96 11/30/21 01:00 65 21 95 11/30/21 00:30 81 24 94 11/30/21 00:00 76 19 94 11/30/21 00:00 101/62 11/29/21 23:30 82 31 H 96 11/29/21 23:00 85 31 H 96 11/29/21 22:30 95 H 20 95 11/29/21 22:21 83/55 L 11/29/21 22:21 89 29 H 94 11/29/21 22:04 89 93 11/29/21 22:04 84/49 L 11/29/21 22:00 91 H 18 92 11/29/21 22:00 82/53 L 11/29/21 21:30 92 H 34 H 93 11/30/21 00:00 87 11/29/21 23:47 36.7 C 11/29/21 22:18 83 25 H 96 11/29/21 22:13 90 11/29/21 21:47 105 H 11/29/21 21:00 93 H 1 L 92 11/29/21 20:00 95 H 37 H 92 11/29/21 20:00 95/62 L 11/29/21 20:00 93 11/29/21 20:00 11/29/21 20:29 36.7 C 11/29/21 19:21 92 H 27 H 91 O2 Del Method O2 Del Method O2 Flow Rate FiO2 11/30/21 05:00 11/30/21 04:49 11/30/21 04:49 11/30/21 04:30 11/30/21 04:00 11/30/21 06:00 11/30/21 03:30 11/30/21 03:29 11/30/21 03:29 11/30/21 03:23 11/30/21 03:00 11/30/21 02:30 11/30/21 02:00 11/30/21 01:30 11/30/21 02:27 11/30/21 01:00 11/30/21 00:30 11/30/21 00:00 11/30/21 00:00 11/29/21 23:30 11/29/21 23:00 11/29/21 22:30 11/29/21 22:21 11/29/21 22:21 11/29/21 22:04 11/29/21 22:04 11/29/21 22:00 11/29/21 22:00 11/29/21 21:30 11/30/21 00:00 11/29/21 23:47 11/29/21 22:18 11/29/21 22:13 11/29/21 21:47 11/29/21 21:00 11/29/21 20:00 11/29/21 20:00 11/29/21 20:00 Trach Collar 11/29/21 20:00 Trach Collar 30 11/29/21 20:29 11/29/21 19:21 Trach Collar 10 30 PG Care Time/CCT Total # of Minutes Spent Total Time Spent with Patient: Total time spent is greater than 50% in coordination of care (as documented) at patient's floor/unit and/or counseling patient: Coding Level of Care Code 93248 Subseq Hosp Care Lvl 3 Diagnoses Sepsis due to pneumonia J18.9; A41.9 Thrombocytopenia D69.6 Bilateral pneumonia J18.9 Lung location: lower lobe of lung Pneumonia type: due to unspecified organism Achromobacter pneumonia J15.6 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
[2021-11-30] MEDS: ACETYLCYSTEINE 10% INHAL SOLN 4 ML **DISPENSED BY RESP. INH SCH ×2 (07:23→19:29)
[2021-11-30] MEDS: ALBUT/IPRATROP 3MG/0.5MG NEB 3 ML VIAL NEB SCH ×4 (07:23→19:29)
[2021-11-30] MEDS: SODIUM CHLOR 7% 4 ML NEB NEB SCH ×2 (07:24→19:29)
[2021-11-30] MEDS: BUDESONIDE 0.5 MG/2 ML VIAL (PULMICORT) INH SCH ×2 (07:24→19:29)
--- NOTE | 2021-11-30 07:39 | XRay Report ---
XR chest 1V portable CLINICAL HISTORY: f/u COMPARISON STUDY: Chest radiograph November 29, 2021. FINDINGS: Tracheostomy tube is in place. There is no pneumothorax. Trace left pleural effusion is unc hanged. There is persistent left basilar opacity with volume loss. There is mild right infrahilar opa city. No evidence for pulmonary edema. Cardiac size is normal. IMPRESSION: 1. Persistent left lower lobe airspace opacity with volume loss. Mild right infrahilar opacity. No si gnificant change since prior exam. 2. Small left pleural effusion. ACT 112: Negative or not required by law. Electronically signed by: Otto Pearce M.D. 11/30/2021 7:37 AM
[2021-11-30] MEDS: HEPARIN SOD 5,000 UNIT/0.5 ML VIAL SQ SCH ×2 (07:53→20:10)
[2021-11-30] MEDS: PATIENT'S OWN ENTERAL FEEDING GT SCH (07:54)
[2021-11-30] MEDS: VALPROIC ACID 50 MG/ML UDP PEG SCH ×3 (07:54→20:11)
[2021-11-30] MEDS: BACLOFEN 20 MG TAB PEG SCH ×3 (07:54→20:13)
[2021-11-30] MEDS: TUBE FEEDING WATER FLUSH GT SCH ×4 (07:54→19:31)
[2021-11-30] MEDS: POLYETHYLENE (MIRALAX) 17 GM PACK PEG SCH (07:54)
[2021-11-30] MEDS: PATIENT'S OWN ENTERAL FEEDING PEG SCH ×4 (07:55→19:31)
[2021-11-30] MEDS: ZONISAMIDE PO SCH ×2 (07:55→20:13)
--- NOTE | 2021-11-30 10:46 | Pulmonology Progress Note ---
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 Her white count was elevated. She has a history of Pseudomonas and Achromobacter in her sputum. Cultures negative to date from this admission. -- Acute on chronic hypoxic respiratory failure Multifactorial Bio fire positive for rhinovirus COVID-19 PCR, influenza A/B negative Nasal MRSA negative Completed the course of ceftazidime for 7 days S/p bronchoscopy 11/25/2021, mucous plugging of the left lower lobe which was suctioned out Sputum culture growing Pseudomonas which is resistant to levofloxacin and tobramycin History of Achromobacter and Pseudomonas in the sputum which is sensitive to ceftazidime O2 supplementation to keep oxygen saturation between 90-92% --Chronic bronchiectasis Continue with nebulized tobramycin Hypertonic saline nebulized twice a day, aggressive suctioning with chest PT Plan: In/out: + 1.3 L, urine output 1150 Chest x-ray from today does not show any significant change compared to yesterday. Try to get patient back on room air and see how she is doing. Discharge planning Continue with CoughAssist, Mucomyst as well as hypertonic saline Case discussed with RN and RT Patient's mom Martha [phone] Please note the above document was generated using voice recognition software. It may contain grammatical, syntax or spelling errors.Any formal questions or concerns about the content, text or information contained within the body of this dictation should be directly addressed to the provider for clarification. Admission and Anticipated Discharge Date Admission Date: November 23, 2021 Subjective Seen and examined at bedside. No acute distress, no adverse events overnight. Patient was saturating 96% on 28% trach collar. Afebrile Blood pressure was in systolic 100 at the time of examination Review of Systems Review of Systems: All systems reviewed & are unremarkable except as noted in Subjective Physical Exam Physical Exam: Constitutional: No acute distress HEENT: EOMI, PERRLA, positive trach Respiratory system: Decreased air entry bilaterally, no wheeze, no rhonchi, positive crackles bilaterally CVS: S1-S2 positive, no murmurs or gallops Abdomen: Soft, nontender, nondistended, positive bowel sounds x4 Extremities: +2 pulses bilaterally radialis/ dorsalis pedis, no cyanosis, no edema Neuro: Contracture of the upper and lower extremities, spontaneously opening eyes, not following commands Psych: Unable to assess G/U: Positive Cota Skin: no rashes, warm and dry Lymphatic: no cervical or axillary lymphadenopathy Results & Data Results & Data ([facility]) Vital Signs (Past 12 Hours) Vital Signs Temp Pulse Pulse Resp BP Pulse Ox O2 Del Method 11/30/21 08:00 Room Air 11/30/21 08:00 86 11/30/21 07:45 82 18 95 Trach Collar 11/30/21 05:00 86 20 94 11/30/21 04:49 99 H 21 96 11/30/21 04:49 99/70 L 11/30/21 04:30 85 18 97 11/30/21 04:00 74 22 95 11/30/21 06:00 37.0 C 11/30/21 03:30 80 18 95 11/30/21 03:29 101/72 11/30/21 03:29 77 24 96 11/30/21 03:23 62 20 95 11/30/21 03:00 90 22 94 11/30/21 02:30 88 24 96 11/30/21 02:00 79 23 96 11/30/21 01:30 76 22 96 11/30/21 02:27 79 20 96 11/30/21 01:00 65 21 95 11/30/21 00:30 81 24 94 11/30/21 00:00 76 19 94 11/30/21 00:00 101/62 11/29/21 23:30 82 31 H 96 11/29/21 23:00 85 31 H 96 11/30/21 00:00 87 11/29/21 23:47 36.7 C FiO2 11/30/21 08:00 11/30/21 08:00 11/30/21 07:45 30 11/30/21 05:00 11/30/21 04:49 11/30/21 04:49 11/30/21 04:30 11/30/21 04:00 11/30/21 06:00 11/30/21 03:30 11/30/21 03:29 11/30/21 03:29 11/30/21 03:23 11/30/21 03:00 11/30/21 02:30 11/30/21 02:00 11/30/21 01:30 11/30/21 02:27 11/30/21 01:00 11/30/21 00:30 11/30/21 00:00 11/30/21 00:00 11/29/21 23:30 11/29/21 23:00 11/30/21 00:00 11/29/21 23:47 Laboratory Results 11/30/21 05:34 11/30/21 05:34 PG Care Time/CCT Total # of Minutes Spent Total Time Spent with Patient: Total time spent is greater than 50% in coordination of care (as documented) at patient's floor/unit and/or counseling patient: Coding Level of Care Code 49419 Subseq Hosp Care Lvl 2 Diagnoses Quadriplegic cerebral palsy G80.8 Pseudomonas aeruginosa colonization Z22.39 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
[2021-11-30] MEDS: traZODone HCL 50 MG TAB PEG SCH (20:10)
[2021-12-01 05:54] LABS: Hematocrit (blood only) 35.7 % (34.1-44.9); Hemoglobin 12.1 g/dl (12.0-16.0); Mean Corpuscular Hemoglobin 33.9 pg (25.0-34.0); Mean Corpuscular Hgb Conc 33.9 g/dL (32.0-36.0); Mean Platelet Volume 8.5 fL (9.4-12.3); Platelet Count 188 K/uL (130-400); RDW Coefficient of Variation 12.2 % (11.5-14.5); RDW Standard Deviation 44.1 fL (36.4-46.3); Red Blood Count 3.57 M/uL (3.93-5.22); White Blood Count 6.69 K/ul (4.8-10.8)
[2021-12-01 06:14] LABS: BUN Creatinine Ratio 25.6 (10-20); Blood Urea Nitrogen 11 mg/dl (6-23); Calcium 9.9 mg/dl (8.5-10.1); Carbon Dioxide 27 mmol/L (21-32); Chloride 96 mmol/L (98-107); Creatinine Clr Calc Pharmacy 153.1 ml/min; Est GFR (African American) > 150.0 ml/min; Est GFR (Non-African American) 141.4 ml/min; Glucose 90 mg/dl (70-99(Fasting)); Potassium 4.3 mmol/L (3.5-5.1)
--- NOTE | 2021-12-01 06:54 | XRay Report ---
XR chest 1V portable CLINICAL HISTORY: f/u COMPARISON STUDY: Chest radiograph November 30, 2021. FINDINGS: Tracheostomy tube is in place. There is no pneumothorax. There is no evidence for pulmonary edema. Cardiac size is normal. Mediastinal contours are normal. Persistent left basilar opacity with volume loss is noted. There is mild right infrahilar opacity. IMPRESSION: No significant change in appearance of the chest. Persistent bibasilar opacities, greate r on the left with associated volume loss. ACT 112: Negative or not required by law. Electronically signed by: Otto Pearce M.D. 12/01/2021 6:53 AM
--- NOTE | 2021-12-01 07:11 | Hospitalist Progress Note ---
Date of Service December 01, 2021 Assessment & Plan (1) Sepsis due to pneumonia: Plan: 26-year-old female with a history of cerebral palsy and quadriplegia, tracheostomy dependent, history of Achromobacter and Pseudomonas colonization admitted with sepsis secondary to bilateral pneumonia. Sepsis secondary to pneumonia: Presented to the ER by caretakers who noted increased heart rate and fever, and was tachycardic with leukocytosis to 19.69. Patient completed a 14-day course of Levaquin for pneumonia 7 days prior to admission. Patient is a known Achromobacter and Pseudomonas colonizer. Rhino/enterovirus positive on [employer]fire testing. Ceftazidime started on admission, completed 7-day course on 11/30. WBC count has downtrended to baseline with antibiotics. Patient is currently on room air, titrate oxygen as needed based on needs. Pulmonology is consulted and appreciate recommendations: Continue pulmonary toilet, DuoNebs, Mucomyst, CoughAssist. Bronchoscopy performed 11/25 and 11/28 due to concern for worsening of left lower lobe consolidation on x-ray; thick secretions were suctioned. Goal SPO2 90-92%. Will have home care nurses available on Thursday; discharge Thursday if no changes in care plan. (2) Thrombocytopenia: Plan: Chronic; baseline ~100. Platelets 188 today. 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 Continue baclofen, trazodone, zonisamide. (7) Mucus plugging of bronchi: Plan: See above (8) Depression with anxiety: Plan: Continue fluoxetine, trazodone. (9) Seizure disorder: Plan: Continue Depakote 550mg q8h. Lorazepam as needed for prolonged seizures. (10) Chronic respiratory failure with hypoxia and hypercapnia: Plan: See above Plan CODE STATUS: Full code FEN: Feeds and meds through PEG tube DVT prophylaxis: Heparin 5000 units every 12 hours Dispo: PCU Telemetry Admission and Anticipated Discharge Date Admission Date: November 23, 2021 Subjective Overnight patient had fever to 38.0, resolved without need for antipyretics. Otherwise no acute events overnight. Review of Systems Review of Systems: Unobtainable due to cognitive status Physical Exam Constitutional: WD/WN, vitals as above Neck: Trach in place Respiratory: Patient is saturating to 94% on room air Crackles appreciated Cardiovascular: RRR, no murmur, no edema Gastrointestinal (Abdomen): normal bowel sounds, soft, nontender, no hepatosplenomegaly Skin: no rashes, warm and dry Neurologic: Upper extremity limb contracture bilaterally Psychiatric: A+Ox3, euthymic affect Orientation: alert Results & Data Results & Data ([facility]) Vital Signs (Past 12 Hours) Vital Signs Temp Pulse Pulse Resp BP Pulse Ox O2 Del Method 12/01/21 06:00 82 20 93 12/01/21 06:00 96/70 L 12/01/21 04:00 73 23 92 12/01/21 04:00 36.9 C 92/62 L 12/01/21 02:00 72 21 94 12/01/21 02:00 93/73 L 12/01/21 00:00 71 25 H 94 12/01/21 00:00 36.8 C 89/61 L 12/01/21 04:10 76 22 95 11/30/21 23:47 85 11/30/21 23:30 77 24 91 11/30/21 23:00 36.7 C 81 23 94/63 L 92 Mechanical Vent 11/30/21 22:50 83 27 H 89 L 11/30/21 21:36 25 H 11/30/21 19:54 Room Air, Aerosol Mask, Trach Collar 11/30/21 19:50 38.0 C H 106/68 11/30/21 19:50 91 H 33 H 93 Trach Collar, Other 11/30/21 19:36 82 24 90 Room Air, Trach Collar O2 Flow Rate FiO2 12/01/21 06:00 12/01/21 06:00 12/01/21 04:00 12/01/21 04:00 12/01/21 02:00 12/01/21 02:00 12/01/21 00:00 12/01/21 00:00 12/01/21 04:10 11/30/21 23:47 11/30/21 23:30 11/30/21 23:00 2 11/30/21 22:50 11/30/21 21:36 11/30/21 19:54 21 11/30/21 19:50 11/30/21 19:50 21 11/30/21 19:36 PG Care Time/CCT Total # of Minutes Spent Total Time Spent with Patient: Total time spent is greater than 50% in coordination of care (as documented) at patient's floor/unit and/or counseling patient: Coding Level of Care Code 84445 Subseq Hosp Care Lvl 3 Diagnoses Sepsis due to pneumonia J18.9; A41.9 Thrombocytopenia D69.6 Bilateral pneumonia J18.9 Lung location: lower lobe of lung Pneumonia type: due to unspecified organism Achromobacter pneumonia J15.6 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
[2021-12-01] MEDS: BUDESONIDE 0.5 MG/2 ML VIAL (PULMICORT) INH SCH ×2 (07:14→19:16)
[2021-12-01] MEDS: SODIUM CHLOR 7% 4 ML NEB NEB SCH ×2 (07:14→19:17)
[2021-12-01] MEDS: ALBUT/IPRATROP 3MG/0.5MG NEB 3 ML VIAL NEB SCH ×4 (07:14→19:16)
[2021-12-01] MEDS: ACETYLCYSTEINE 10% INHAL SOLN 4 ML **DISPENSED BY RESP. INH SCH ×2 (07:14→19:17)
[2021-12-01] MEDS: PATIENT'S OWN ENTERAL FEEDING PEG SCH ×4 (07:28→20:43)
[2021-12-01] MEDS: TUBE FEEDING WATER FLUSH GT SCH ×4 (07:29→20:43)
[2021-12-01] MEDS: BACLOFEN 20 MG TAB PEG SCH ×3 (07:29→20:46)
[2021-12-01] MEDS: HEPARIN SOD 5,000 UNIT/0.5 ML VIAL SQ SCH ×2 (07:30→20:46)
[2021-12-01] MEDS: VALPROIC ACID 50 MG/ML UDP PEG SCH ×3 (07:30→20:46)
[2021-12-01] MEDS: POLYETHYLENE (MIRALAX) 17 GM PACK PEG SCH (07:30)
[2021-12-01] MEDS: ZONISAMIDE PO SCH ×2 (07:31→20:45)
[2021-12-01] MEDS ORDERED: SODIUM CHLORIDE 0.9% 500 ML IV SCH (08:15)
--- NOTE | 2021-12-01 10:03 | Pulmonology Progress Note ---
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 Her white count was elevated. She has a history of Pseudomonas and Achromobacter in her sputum. Cultures negative to date from this admission. -- Acute on chronic hypoxic respiratory failure Multifactorial Bio fire positive for rhinovirus COVID-19 PCR, influenza A/B negative Nasal MRSA negative Completed the course of ceftazidime for 7 days S/p bronchoscopy 11/25/2021, mucous plugging of the left lower lobe which was suctioned out Sputum culture growing Pseudomonas which is resistant to levofloxacin and tobramycin History of Achromobacter and Pseudomonas in the sputum which is sensitive to ceftazidime O2 supplementation to keep oxygen saturation between 90-92% --Chronic bronchiectasis Continue with nebulized tobramycin Hypertonic saline nebulized twice a day, aggressive suctioning with chest PT Plan: In/out: + 1090, urine output 800 Chest x-ray from today does not show any significant change compared to yesterday Patient's labs showed hypochloremia with hyponatremia today. I think most likely there is an issue with the lab. I will still give the patient 250 mm of normal saline. Continue with CoughAssist, Mucomyst as well as hypertonic saline Case discussed with RN and RT Patient's mom Martha [phone] Please note the above document was generated using voice recognition software. It may contain grammatical, syntax or spelling errors.Any formal questions or concerns about the content, text or information contained within the body of this dictation should be directly addressed to the provider for clarification. Admission and Anticipated Discharge Date Admission Date: November 23, 2021 Subjective Patient seen and examined at bedside. No acute distress, no adverse events overnight. Spiked fever 38 overnight. Has been afebrile since then. Was saturating 89-90% on room air. Review of Systems Review of Systems: All systems reviewed & are unremarkable except as noted in Subjective Physical Exam Physical Exam: Constitutional: No acute distress HEENT: EOMI, PERRLA, positive trach Respiratory system: Decreased air entry bilaterally, no wheeze, no rhonchi, positive crackles bilaterally CVS: S1-S2 positive, no murmurs or gallops Abdomen: Soft, nontender, nondistended, positive bowel sounds x4 Extremities: +2 pulses bilaterally radialis/ dorsalis pedis, no cyanosis, no e silvana Neuro: Contracture of the upper and lower extremities, spontaneously opening eyes, not following commands Psych: Unable to assess G/U: No Cota Skin: no rashes, warm and dry Lymphatic: no cervical or axillary lymphadenopathy Results & Data Results & Data ([facility]) Vital Signs (Past 12 Hours) Vital Signs Temp Pulse Pulse Resp BP Pulse Ox O2 Del Method 12/01/21 07:15 89 22 93 Mechanical Vent 12/01/21 06:00 82 20 93 12/01/21 06:00 96/70 L 12/01/21 04:00 73 23 92 12/01/21 04:00 36.9 C 92/62 L 12/01/21 02:00 72 21 94 12/01/21 02:00 93/73 L 12/01/21 00:00 71 25 H 94 12/01/21 00:00 36.8 C 89/61 L 12/01/21 04:10 76 22 95 11/30/21 23:47 85 11/30/21 23:30 77 24 91 11/30/21 23:00 36.7 C 81 23 94/63 L 92 Mechanical Vent 11/30/21 22:50 83 27 H 89 L O2 Flow Rate 12/01/21 07:15 2 12/01/21 06:00 12/01/21 06:00 12/01/21 04:00 12/01/21 04:00 12/01/21 02:00 12/01/21 02:00 12/01/21 00:00 12/01/21 00:00 12/01/21 04:10 11/30/21 23:47 11/30/21 23:30 11/30/21 23:00 2 11/30/21 22:50 Laboratory Results 12/01/21 05:26 12/01/21 05:26 PG Care Time/CCT Total # of Minutes Spent Total Time Spent with Patient: Total time spent is greater than 50% in coordination of care (as documented) at patient's floor/unit and/or counseling patient: Coding Level of Care Code 49076 Subseq Hosp Care Lvl 2 Diagnoses Quadriplegic cerebral palsy G80.8 Pseudomonas aeruginosa colonization Z22.39 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
[2021-12-01] MEDS: PATIENT'S OWN ENTERAL FEEDING GT SCH (12:05)
--- NOTE | 2021-12-01 14:40 | XRay Report ---
XR chest 1V portable HISTORY: 26 years-old Female trach placement follow-up study in a patient with a tracheostomy cannul a COMPARISON: Chest radiograph 12/01/2021 TECHNIQUE: AP view of the chest FINDINGS: Tracheostomy cannula is noted overlying the midline at the level the clavicular heads. Lung apices ar e partially obscured. No pneumothorax. There are persistent bibasilar opacities which are mildly prog ressed on the right. Blunting of the costophrenic angles may represent trace effusions. The bones oanh ear grossly intact. IMPRESSION: 1. Tracheostomy cannula overlies the midline at the level of the clavicular heads. 2. Persistent bibasilar opacities, mildly worsened on the right. 3. Possible trace pleural effusions. ACT 112: Negative or not required by law. The above report was generated using voice recognition software. It may contain grammatical, syntax o r spelling errors. Electronically signed by: Ervin Townsend M.D. 12/01/2021 2:38 PM
[2021-12-01 15:24] LABS: Anion Gap 7 (3-11); BUN Creatinine Ratio 36.7 (10-20); Blood Urea Nitrogen 11 mg/dl (6-23); Calcium 9.3 mg/dl (8.5-10.1); Carbon Dioxide 27 mmol/L (21-32); Chloride 100 mmol/L (98-107); Creatinine Clr Calc Pharmacy 219.9 ml/min; Est GFR (African American) > 150.0 ml/min; Est GFR (Non-African American) > 150.0 ml/min; Glucose 128 mg/dl (70-99(Fasting)); Sodium 134 mmol/L (136-145)
[2021-12-01 17:51] LABS: Anion Gap 9.5 (3-11)
[2021-12-01 17:52] LABS: Sodium 135 mmol/L (136-145)
[2021-12-01] MEDS: traZODone HCL 50 MG TAB PEG SCH (20:47)
[2021-12-02 06:54] LABS: Anion Gap 6 (3-11); BUN Creatinine Ratio 31.6 (10-20); Blood Urea Nitrogen 12 mg/dl (6-23); Calcium 9.5 mg/dl (8.5-10.1); Carbon Dioxide 29 mmol/L (21-32); Chloride 99 mmol/L (98-107); Creatinine Clr Calc Pharmacy 174.7 ml/min; Est GFR (African American) > 150.0 ml/min; Est GFR (Non-African American) 147.2 ml/min; Glucose 89 mg/dl (70-99(Fasting)); Glucose Fasting 89 mg/dl (70-99); Potassium 4.7 mmol/L (3.5-5.1); Sodium 134 mmol/L (136-145)
[2021-12-02] MEDS: SODIUM CHLOR 7% 4 ML NEB NEB SCH (07:17)
[2021-12-02] MEDS: ALBUT/IPRATROP 3MG/0.5MG NEB 3 ML VIAL NEB SCH ×2 (07:17→11:04)
[2021-12-02] MEDS: BUDESONIDE 0.5 MG/2 ML VIAL (PULMICORT) INH SCH (07:17)
[2021-12-02] MEDS: ACETYLCYSTEINE 10% INHAL SOLN 4 ML **DISPENSED BY RESP. INH SCH (07:17)
[2021-12-02] MEDS: PATIENT'S OWN ENTERAL FEEDING PEG SCH (08:06)
[2021-12-02] MEDS: VALPROIC ACID 50 MG/ML UDP PEG SCH (08:06)
[2021-12-02] MEDS: TUBE FEEDING WATER FLUSH GT SCH (08:06)
[2021-12-02] MEDS: PATIENT'S OWN ENTERAL FEEDING GT SCH (08:06)
[2021-12-02] MEDS: HEPARIN SOD 5,000 UNIT/0.5 ML VIAL SQ SCH (08:06)
[2021-12-02] MEDS: ZONISAMIDE PO SCH (08:07)
[2021-12-02] MEDS: POLYETHYLENE (MIRALAX) 17 GM PACK PEG SCH (08:07)
[2021-12-02] MEDS: BACLOFEN 20 MG TAB PEG SCH (08:07)
--- NOTE | 2021-12-02 08:21 | Pulmonology Progress Note ---
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 Clinically better with abx. Cultures show resistant pseudomonas. Recommendations: 1. Exacerbation of bronchiectasis: Clinically improved. Chest x-ray today with just a small amount of basilar opacity on the left likely secondary to atelectasis given elevation of the diaphragm. Patient completed 8 days of ceft azidime as well as 3 days of Bactrim. Sputum cultures and bronchial washings have grown Pseudomonas. The Pseudomonas has changed its resistant pattern and is now demonstrating resistance to tobramycin, gentamicin, and levofloxacin with intermediate resistance to cefepime. She has completed all antibiotics. Given resistance to tobramycin, continuation of inhaled tobramycin will be deferred to outpatient pulmonary provider but may not offer much in the way of clinical benefit. 2. Continue aggressive pulmonary toilet with suctioning as needed. She is receiving Mucomyst nebs as well which may be beneficial. Continue CoughAssist and hypertonic saline. 3. Continue supplemental oxygen via trach collar. Patient appears to have responded appropriately to inpatient care and is appropriate to transition back to her home regimen and follow-up in the outpatient setting with Dr. tenorio. Will sign off. Call if ?s Admission and Anticipated Discharge Date Admission Date: November 23, 2021 Subjective Patient seen and examined. EMR reviewed. Discussed with off going combine mechanic as well as bedside nurse. The patient appears more comfortable than when I saw her last. Her tachycardia and tachypnea resolved. She is on trach collar room air. Review of Systems Review of Systems: Unobtainable due to cognitive status Physical Exam Physical Exam: The patient is awake, on trach collar, lying in bed and in no acute distress. HEENT--PERRL, EOMI, mucous membranes and oropharynx normal Neck--trach clean dry and intact. Heart--normal S1 and S2. No murmurs, rubs or gallops. Lungs--coarse rhonchi bilaterally Abdomen--normal bowel sounds and soft. Nontender. Nondistended, no hernias or masses, no organomegaly. PEG site clean dry and intact Extremities--contractures noted. Results & Data Results & Data ([facility]) Vital Signs (Past 12 Hours) Vital Signs Temp Pulse Resp BP Pulse Ox O2 Del Method FiO2 12/02/21 05:00 80 21 93 12/02/21 04:30 82 22 91 12/02/21 04:00 84 23 92 12/02/21 04:00 36.6 C 99/69 L Mechanical Vent 21 12/02/21 03:30 77 22 92 12/02/21 03:25 83 21 93 12/02/21 00:00 77 12/01/21 23:30 76 23 96 12/01/21 23:00 36.6 C 79 17 89/61 L 97 12/01/21 21:38 Mechanical Vent 21 12/01/21 21:38 91 H 25 H 92 Critical Care Results & Data Vital Signs (Past 12 Hours) Vital Signs Temp Pulse Resp BP Pulse Ox O2 Del Method FiO2 12/02/21 05:00 80 21 93 12/02/21 04:30 82 22 91 12/02/21 04:00 84 23 92 12/02/21 04:00 36.6 C 99/69 L Mechanical Vent 21 12/02/21 03:30 77 22 92 12/02/21 03:25 83 21 93 12/02/21 00:00 77 12/01/21 23:30 76 23 96 12/01/21 23:00 36.6 C 79 17 89/61 L 97 12/01/21 21:38 Mechanical Vent 21 12/01/21 21:38 91 H 25 H 92 Lab & Micro Results (Past 24 Hours) No Data to Display Na 134 mmol/L (136-145) L 12/02/21 K 4.7 mmol/L (3.5-5.1) 12/02/21 Cl 99 mmol/L (98-107) 12/02/21 CO2 29 mmol/L (21-32) 12/02/21 Anion Gap 6 (3-11) 12/02/21 BUN 12 mg/dl (6-23) 12/02/21 Creatinine 0.38 mg/dl (0.6-1.2) L 12/02/21 Estimated GFR ( Amer) > 150.0 ml/min 12/02/21 Estimated GFR (Non-Af Amer) 147.2 ml/min 12/02/21 BUN/Creatinine Ratio 31.6 (10-20) H 12/02/21 Glu 89 mg/dl (70-99(Fasting)) 12/02/21 Ca 9.5 mg/dl (8.5-10.1) 12/02/21 Calcium Level 9.5 mg/dl (8.5-10.1) 12/02/21 05:41 Microbiology 11/25/21 13:45 Fungal Smear - Final Bronch Wash,Left Lower Lobe Fungal Culture - Preliminary No yeast or fungus isolated - Report 1, Additional Report to Follow. Diagnostic Findings (Past 24 Hours) Chest X-Ray 12/01/21 14:19 XR chest 1V portable HISTORY: 26 years-old Female trach placement follow-up study in a patient with a tracheostomy cannula COMPARISON: Chest radiograph 12/01/2021 TECHNIQUE: AP view of the chest FINDINGS: Tracheostomy cannula is noted overlying the midline at the level the clavicular heads. Lung apices are partially obscured. No pneumothorax. There are persistent bibasilar opacities which are mildly progressed on the right. Blunting of the costophrenic angles may represent trace effusions. The bones appear grossly intact. IMPRESSION: 1. Tracheostomy cannula overlies the midline at the level of the clavicular heads. 2. Persistent bibasilar opacities, mildly worsened on the right. 3. Possible trace pleural effusions. ACT 112: Negative or not required by law. The above report was generated using voice recognition software. It may contain grammatical, syntax or spelling errors. Electronically signed by: Ervin Townsend M.D. 12/01/2021 2:38 PM I & O Totals 24 Hours 12/01/21 12/02/21 12/03/21 06:59 06:59 06:59 Intake Total 1890 / 1890 560 / 560 Output Total 800 / 800 152 / 152 Balance 1090 / 1090 408 / 408 Cumulative 11/22/21 21:41 thru 12/02/21 06:00 Intake Total 16788.333 Output Total 13546 Balance 6000.333 RT Ventilator Mngmt (Last Documented) Ventilator Ordered Settings Respiratory Rate 21 12/02/21 05:00 Ventilator Tidal Volume 350 12/01/21 00:29 Setting Minute Ventilation 8.3 11/30/21 21:36 Positive End Expiratory 8 12/01/21 00:29 Pressure Fraction of Inspired Oxygen 21 12/02/21 04:00 Machine Comment +15lpm bleed in 11/26/21 03:05 Ventilator - PT Measurements Respiratory Rate 21 Exhaled Tidal Volume 360 Minute Ventilation 8.3 Peak Inspiratory Airway 16 Pressure Respiratory Cycle Inspiratory: 1:2.1 Expiratory Ratio Inspiratory Phase Time 1.0 Dynamic Lung Compliance 49.63 Normal Static Lung Compliance 48.00 Patient Measurements Comment pt resting comfortably on home machine at room air PG Care Time/CCT Total # of Minutes Spent Total Time Spent with Patient: Total time spent is greater than 50% in coordination of care (as documented) at patient's floor/unit and/or counseling patient: Coding Level of Care Code 24678 Subseq Hosp Care Lvl 2 Diagnoses Quadriplegic cerebral palsy G80.8 Pseudomonas aeruginosa colonization Z22.39 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
--- NOTE | 2021-12-02 08:41 | XRay Report ---
XR chest 1V portable HISTORY: 26 years-old Female f/u follow-up study in a patient with tracheostomy cannula COMPARISON: Chest radiograph 12/01/2021 TECHNIQUE: AP view of the chest FINDINGS: Tracheostomy cannula unchanged positioning. No pneumothorax or overt pulmonary edema. There is improv ed aeration of the lung bases with mild persistent left lung base densities and possible trace left p leural effusion. The bones appear grossly intact. IMPRESSION: Improved aeration of the lung bases with mild persistent left lung base opacities and tra ce left pleural effusion. ACT 112: Negative or not required by law. The above report was generated using voice recognition software. It may contain grammatical, syntax o r spelling errors. Electronically signed by: Ervin Townsend M.D. 12/02/2021 8:40 AM
--- NOTE | 2021-12-02 19:02 | Discharge Summary ---
Date of Service December 02, 2021 Admission HPI Per Admitting Provider The patient is a 26-year-old female with a past medical history including quadriplegic cerebral palsy, chronic respiratory failure requiring pressure support at nighttime, status post tracheostomy, and a recent treatment for pneumonia after completing a 14-day course of Levaquin 7 days ago. Her mother reports also that she has been treated for urinary tract infections in the past as a cause of similar symptoms. Principal Diagnosis Healthcare-associated pneumonia Sepsis, present on arrival from pneumonia Discharge Exam Gen: Eyes open, not tracking, no following commands. Occasionally smiles. RR: Thick secretions, but no respiratory distress on trach colar. Rhonchour breath tones throughout. CV: Tachycardic, regular Discharge Data Allergies Allergy/AdvReac Type Severity Reaction Status Date / Time No Known Allergies Allergy Verified 05/13/21 13:06 Consultations 11/23/21 00:17 ED Decision to Admit Stat 11/23/21 04:17 Consult Pulmonology Routine Hospital Course (1) Sepsis due to pneumonia: 26-year-old female with a history of cerebral palsy and quadriplegia, tracheostomy dependent, history of Achromobacter and Pseudomonas colonization admitted with sepsis secondary to bilateral pneumonia. Sepsis secondary to pneumonia: Presented to the ER by caretakers who noted increased heart rate and fever, and was tachycardic with leukocytosis to 19.69. Patient completed a 14-day course of Levaquin for pneumonia 7 days prior to admission. Patient is a known Achromobacter and Pseudomonas colonizer. Rhino/enterovirus positive on [employer] testing. Ceftazidime started on admission, completed 7-day course on 11/30. WBC count has downtrended to baseline with antibiotics. Patient is currently on room air, titrate oxygen as needed based on needs. Pulmonology is consulted and appreciate recommendations: Continue pulmonary toilet, DuoNebs, Mucomyst, CoughAssist. Bronchoscopy performed 11/25 and 11/28 due to concern for worsening of left lower lobe consolidation on x-ray; thick secretions were suctioned. Goal SPO2 90-92%. Will have home care nurses available on Thursday; discharge Thursday if no changes in care plan. (2) Thrombocytopenia: Chronic; baseline ~100. Platelets 188 today. 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 Continue baclofen, trazodone, zonisamide. (7) Mucus plugging of bronchi: See above (8) Depression with anxiety: Continue fluoxetine, trazodone. (9) Seizure disorder: Continue Depakote 550mg q8h. Lorazepam as needed for prolonged seizures. (10) Chronic respiratory failure with hypoxia and hypercapnia: See above Plan CODE STATUS: Full code FEN: Feeds and meds through PEG tube DVT prophylaxis: Heparin 5000 units every 12 hours Dispo: PCU Telemetry Total Time Total Time Spent Total Time Spent (In Minutes): 25 Discharge Plan Discharge Items Patient Disposition: Home - Home Health Services Reason For Visit: FEBRILE ILLNESS Discharge Diagnosis: Pneumonia Activity: Resume your previous activity Non-emergency contact: Primary Care Provider and Drama Therapist Call non-emergency contact if: your symptoms worsen and your temperature is above 101 Follow-up/Referrals: Janet Pearce MD [Primary Care Provider] - 12/16/21 3:00 pm (@ week Follow up with Farrah) Diet: Nothing by Mouth Addtl Attending Provider Instructions: Ms. Alcala was admitted to the hospital with a fever and pneumonia. She was treated with 7 days of antibiotics. Pulmonology helped guide care, and Dr. Yeager did a bronchoscopy to help clear out thick secretions. The pulmonology team feels that Ms. Alcala is stable for discharge back home. The gold layer today pointed out that the Pseudomonas is now resistant to tobramycin, so continuing these inhaled antibiotics may not have any benefit, but he asks that you follow up with your normal gold layer to discuss this. Pending Studies at Discharge: No Stand-Alone Forms: My [facility] eFolder, Smoking Cessation Medications and DC Order Prescriptions: New sodium chloride 7 % Solution For Nebulization 4 ml NEB BIDR Qty: 240 0RF Continued ibuprofen 100 mg/5 mL suspension See Rx Instructions PO Q6H PRN (Reason: fever or pain) Qty: 473 5RF Dose Instruction: 10-20mL PO Q6H PRN; Rx Instructions: 10-20mL PO Q6H PRN; acetaminophen 160 mg/5 mL liquid 640 mg PO Q6H PRN (Reason: fever or pain) Qty: 473 5RF (DME) disposable gloves Misc See Rx Instructions .ROUTE .MEDSUPPLY Qty: 100 0RF Rx Instructions: As directed G80.9 (DME) incontinence pad, liner, disp Pad See Rx Instructions .ROUTE .MEDSUPPLY Qty: 20 0RF Rx Instructions: As directed G80.9 (DME) Miscellaneous Medical Supply (Hospital Bed) See Rx Instructions .Route .MEDSUPPLY Qty: 1 0RF Rx Instructions: 1 set; replacement pads for side rails on hospital bed (DME) Day and Night Brief, Large Misc See Rx Instructions .ROUTE .MEDSUPPLY Qty: 180 11RF Rx Instructions: 6 per day/G80.9 (DME) nebulizers Misc See Rx Instructions .Route Qty: 1 0RF Rx Instructions: Nebulizer and nebulizer supplies Hers is broken beyond repair (DME) incontinence pad, liner, disp Pad See Rx Instructions .ROUTE .MEDSUPPLY Qty: 75 11RF Rx Instructions: 20 under pads and 75 liners miscellaneous medical supply Misc 1 ea miscellaneous ONCE Qty: 180 11RF Rx Instructions: ADULT LARGE INCONTINENT PANTS QTY 180 (DME) [place] Tracheostomy Care Tray Misc See Rx Instructions .Route Qty: 30 5RF Rx Instructions: Trach cleaning kit budesonide 0.5 mg/2 mL suspension for nebulization 0.5 mg inhalation BID Qty: 120 5RF tobramycin with nebulizer 300 mg/5 mL solution for nebulization 300 mg inhalation BID 28 Days Qty: 280 3RF Rx Instructions: separate doses by at least 6 hours nitrofurantoin macrocrystal 50 mg capsule 50 mg feeding tube QAM Qty: 90 3RF cetirizine 10 mg tablet 10 mg feeding tube QAM Qty: 90 3RF trazodone 50 mg tablet 50 mg feeding tube HS Qty: 90 3RF polyethylene glycol 3350 17 gram/dose powder See Rx Instructions .ROUTE .COMPLEX Qty: 1530 3RF Dose Instruction: take 17GM (DISSOLVED IN WATER) by mouth once daily VIA FEEDING TUBE Rx Instructions: take 17GM (DISSOLVED IN WATER) by mouth once daily VIA FEEDING TUBE baclofen 20 mg tablet 20 mg feeding tube TID 30 Days Qty: 90 11RF valproic acid (as sodium salt) 250 mg/5 mL solution 550 mg feeding tube TID 30 Days Qty: 990 11RF zonisamide 100 mg capsule 200 mg feeding tube .COMPLEX 30 Days Qty: 90 11RF Rx Instructions: 200 mg feeding tube TAKE 2 CAPS EVERY MORNING AND 1 CAP AT BEDTIME; miscellaneous medical supply Misc 1 ea miscellaneous ONCE Qty: 1 0RF Rx Instructions: CORRUGATED TUBING FOR TRACH COLLAR 100 FT. miscellaneous medical supply Misc 1 ea miscellaneous ONCE Qty: 1 0RF Rx Instructions: HME (HEAT MOISTURE EXCHANGERS) QTY: 30 acetylcysteine 100 mg/mL (10 %) solution 3 ml inhalation BID Qty: 180 5RF albuterol sulfate 2.5 mg /3 mL (0.083 %) solution for nebulization 2.5 mg inhalation Q4H PRN (Reason: Wheezing/ shortness of breath) Qty: 540 5RF Boost 0.04 gram- 1 kcal/mL Liquid 1.5 ea PO QID@07,1130,15,19 Rx Instructions: 350mL via PEG tube at 400mL/hr at 0700, 1130, 1500, 1900 water Liquid 120 ea PO QID@07,1130,15,19 Rx Instructions: 120mL water flush via PEG before and after each bolus tube feed clonazepam 0.5 mg tablet,disintegrating 0.5 mg feeding tube DIRECTED PRN (Reason: PROLONGED SEIZURES) Rx Instructions: take 1 to 2 tablets by mouth daily, for prolonged seizures Xtracal Plus 14 gram-230 kcal/45 mL liquid in packet 1 ea feeding tube DAILY@1100 fluoxetine 20 mg tablet 20 mg feeding tube QDL Discontinued levofloxacin 750 mg tablet 750 mg PO DAILY 14 Days Qty: 14 0RF Discharge Orders: Discharge Order (Routine); Ordered 12/02/21 Ordered By: Joseph Eng/Other Patient Handouts: Chest and Lung Problems, Muscle Spasm, Understanding Post Sepsis Syndrome, What Is Pneumonia?, Lung Anatomy, Preventing Pneumonia, Treating Pneumonia, Sepsis, When You Have Pneumonia, Infec Common Resp Prevention, Understanding Sepsis, ED Leg Spasm, ED Muscle Spasm, ED Neck Spasm, No Trauma Admission Data Admit Date/Time: 11/23/21 02:15 Attending Provider: oJseph Reid Admit Provider: Vishal Cain Primary Care Provider: Janet Pearce Other Providers: Vishal Cain ; Alen Stover ; Madisyn Chirinos Other Interventions: Discharge Summary Assessment (RN) Last Done: 12/02/21 10:11 Coding Level of Care Code D/C DAY MANAGEMENT <30 MINS Diagnoses Sepsis due to pneumonia J18.9; A41.9 Thrombocytopenia D69.6 Bilateral pneumonia J18.9 Lung location: lower lobe of lung Pneumonia type: due to unspecified organism Achromobacter pneumonia J15.6 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
[2021-12-09 11:11] LABS: Legionella Culture Source LLL; Source LLL
== END 2021-12-02 11:29 | disposition home health service (06) | DRG 871 ==
LOC: ED 21:49 → SUATTDRO 11-23 02:15 → 1E 11-23 02:15
DX: G40.909 Epilepsy, unspecified, not intractable, without status epilepticus; G80.8 Other cerebral palsy; A41.9 Sepsis, unspecified organism; T17.800A Unspecified foreign body in other parts of respiratory tract causing asphyxiation, initial encounter; X58.XXXA Exposure to other specified factors, initial encounter; H47.619 Cortical blindness, unspecified side of brain; F41.8 Other specified anxiety disorders; Z22.39 Carrier of other specified bacterial diseases; Y92.019 Unspecified place in single-family (private) house as the place of occurrence of the external cause; J96.21 Acute and chronic respiratory failure with hypoxia; J15.6 Pneumonia due to other Gram-negative bacteria; Z93.0 Tracheostomy status; J98.11 Atelectasis; Z93.1 Gastrostomy status; B97.89 Other viral agents as the cause of diseases classified elsewhere; J47.1 Bronchiectasis with (acute) exacerbation

== ENCOUNTER 2022-09-26 08:33 | Inpatient (IN) ==
[2022-09-26] MEDS ORDERED: SODIUM CHLORIDE 0.9% 1000ML 1,000 ML IV SCH (09:00)
--- NOTE | 2022-09-26 09:10 | Emergency Department Note ---
History of Present Illness General Chief complaint: Shortness of Breath/Dyspnea Stated complaint: SOB, COUGH Time Seen by Provider: 09/26/22 08:53 History of Present Illness 27-year-old female presents emergency department with family at bedside this patient has a trach and usually uses a ventilator in the evenings. Patient has a history of quadriplegic cerebral palsy and chronic respiratory failure as well as pneumonia and sepsis, over the past month she has had intermittent fevers and she has had a culture that was resistant to Levaquin so she was recently switched to oral Cipro. Past few days she has been trying to cough and she is having pain with cough and last evening she desaturated to 87% while she was on the ventilator. Patient presents to make sure that she does not have a current pneumonia or sepsis. Patient is nonverbal all history is from family at bedside Home Medications Medication Instructions Recorded Confirmed Type food supplemt, lactose-reduced 1.5 ea PO QID@07,1130,15,07/28/18 09/26/22 History 0.04 gram-1 kcal/mL oral liquid (Boost) water 120 ea PO QID@07,1130,15,07/28/18 09/26/22 History acetaminophen 160 mg/5 mL oral 640 mg (20 mL) PO Q6H PRN fever or 12/21/18 09/26/22 Rx liquid pain #473 mL ibuprofen 100 mg/5 mL oral See Rx Instructions PO Q6H PRN 12/21/18 09/26/22 Rx suspension fever or pain #473 mL disposable gloves #100 ea 05/12/19 03/21/22 Rx incontinence pad, liner, disp #20 ea 05/12/19 03/21/22 Rx Miscellaneous Medical Supply #1 ea 02/22/20 03/21/22 Rx (Hospital Bed) nut.tx.,elemental,[id number] 1 ea feeding tube DAILY@1100 08/04/20 09/26/22 History 14 gram-230 kcal/45 mL liquid pkt (Xtracal Plus) nebulizers #1 ea 11/01/20 03/21/22 Rx miscellaneous medical supply 1 ea miscellaneous ONCE #1 ea 12/06/20 03/21/22 Rx miscellaneous medical supply 1 ea miscellaneous ONCE #1 ea 12/06/20 03/21/22 Rx incontinence pad, liner, disp #75 ea 01/03/21 03/21/22 Rx miscellaneous medical supply 1 ea miscellaneous ONCE #180 ea 01/03/21 03/21/22 Rx miscellaneous medical supply #30 ea 01/31/21 03/21/22 Rx ([place] Tracheostomy Care Tray) cetirizine 10 mg tablet 10 mg feeding tube QAM #90 tabs 11/29/21 09/26/22 Rx nitrofurantoin macrocrystal 50 mg 50 mg feeding tube QAM #90 caps 11/29/21 09/26/22 Rx capsule polyethylene glycol 3350 17 See Rx Instructions .Route 11/29/21 09/26/22 Rx gram/dose oral powder .COMPLEX #1,530 grams trazodone 50 mg tablet 50 mg feeding tube HS #90 tabs 11/29/21 09/26/22 Rx Miscellaneous Pulmonary Supply #1 ea 12/23/21 03/21/22 Rx clonazepam 0.5 mg disintegrating 0.5 mg feeding tube DIRECTED 01/06/22 09/26/22 Rx tablet PRN PROLONGED SEIZURES #30 tabs diaper,brief,adult,disposable (Day #180 ea 03/25/22 Rx and Night Brief, Large) albuterol sulfate 2.5 mg/3 mL 2.5 mg (3 mL) inhalation Q4H PRN 04/30/22 09/26/22 Rx (0.083 %) solution for nebulization Wheezing/ shortness of breath #540 mL acetylcysteine 200 mg/mL (20 %) 3 ml inhalation BID #100 mL 06/12/22 09/26/22 Rx solution baclofen 20 mg tablet 20 mg feeding tube TID 30 days #90 08/13/22 09/26/22 Rx tabs fluoxetine 20 mg tablet 20 mg feeding tube QDL #30 tabs 08/13/22 09/26/22 Rx valproic acid (as sodium salt) 250 550 mg (11 mL) feeding tube TID 30 08/13/22 09/26/22 Rx mg/5 mL oral solution days #990 mL zonisamide 100 mg capsule 200 mg feeding tube .COMPLEX 30 08/13/22 09/26/22 Rx days #90 caps budesonide 0.5 mg/2 mL suspension 0.5 mg (2 mL) inhalation BID #120 08/18/22 09/26/22 Rx for nebulization mL sodium chloride 7 % for 4 ml inhalation BID PRN Other 09/26/22 09/26/22 History nebulization tobramycin with nebulizer 300 mg/5 300 mg inhalation DIRECTED 09/26/22 09/26/22 History mL solution for nebulization Allergies Allergy/AdvReac Type Severity Reaction Status Date / Time No Known Allergies Allergy Verified 03/21/22 10:15 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 Seizure disorder Sepsis Thrombocytopenia Thrombocytopenia Transaminitis Surgical History History of tracheostomy #6 [place] 09/10/2020 S/P percutaneous endoscopic gastrostomy (PEG) tube placement Family History Brother Asthma Other Coronary heart disease Family history non-contributory Hypertension Social History Smoking Status: Never smoker Second Hand Exposure: No; Do You Dip or Chew Tobacco: No; Hx Alcohol Use: No Hx Substance Use: No Preferred Language: Persian Communication Ability: Impaired Communication Ability Comment: HX of Cerbral Palsy Asphalt Paver Required: No Beliefs That Will Affect Care: None marital status: Single Current Living Situation: Family Current Living Situation Comment: parent Feels Safe at Home: Yes Assistive Devices: Hospital Bed Review of Systems Unobtainable due to cognitive status Physical Exam Vital Signs Vital Signs - 24 hr 09/26/22 08:39 09/26/22 08:39 09/26/22 09:59 Temperature 36.0 C L Temperature Source Temporal Artery Scan Pulse Rate 113 H 109 H Pulse Rate [Right Foot] Pulse Rhythm [Right Foot] Pulse Strength [Right Foot] Respiratory Rate 20 Respiratory Effort / Characteristics Non-Labored Respiratory Depth Normal Respiratory Pattern Blood Pressure 112/65 Blood Pressure [Right Arm] Blood Pressure Mean 80 Blood Pressure Mean [Right Arm] Blood Pressure Position [Right Arm] Pulse Oximetry 96 97 92 Oxygen Delivery Method Room Air Trach Collar Room Air Oxygen Flow Rate Sepsis Recent Fever Within 48 Hours Yes Sepsis New/Unexplained Change in Mental Status No Sepsis Action Taken by Nursing No Action Required 09/26/22 10:09 09/26/22 10:21 09/26/22 12:00 Temperature Temperature Source Pulse Rate 102 H Pulse Rate [Right Foot] 104 H 104 H Pulse Rhythm [Right Foot] Regular Pulse Strength [Right Foot] Normal Respiratory Rate 23 23 Respiratory Effort / Characteristics Non-Labored Respiratory Depth Normal Respiratory Pattern Regular Blood Pressure Blood Pressure [Right Arm] 115/71 Blood Pressure Mean Blood Pressure Mean [Right Arm] 85 Blood Pressure Position [Right Arm] Lying Pulse Oximetry 94 99 Oxygen Delivery Method Room Air Trach Collar Oxygen Flow Rate 4 Sepsis Recent Fever Within 48 Hours Sepsis New/Unexplained Change in Mental Status Sepsis Action Taken by Nursing GENERAL: Patient is awake alert in no acute distress EYES: The conjunctivae are clear. The pupils are round and reactive. EARS, NOSE, MOUTH AND THROAT: The nose is without any evidence of any deformity. Mucous membranes are moist. Tongue is midline. NECK: The neck is nontender and supple. Trach collar is present RESPIRATORY: Normal respiratory effort is noted there is no evidence of wheezing rhonchi or rales CARDIOVASCULAR: Regular rate and rhythm noted there no murmurs rubs or gallops normal S1 normal S2. GASTROINTESTINAL: The abdomen is soft. Abdomen is nontender. BACK: No midline tenderness or or step-off noted range of motion in flexion extension as well as rotation no signs of muscle spasm noted MUSCULOSKELETAL/EXTREMITIES: Patient has flexion contractures of the upper extremities and lower extremities SKIN: There is no obvious evidence of any rash. There are no petechiae, pallor or cyanosis noted. NEUROLOGIC: Patient is awake but nonverbal Course Reevaluation(s) Reevaluation #1: Patient is resting in no distress. Patient was started on Zosyn. I discussed evaluation with the patient's family at bedside for admission Time: 10:30 Consultations Consultation #1: Case was discussed with the [facility] hospitalist for admission Time: 12:51 Consultation #2: Case was discussed with Dr. Li from the ICU regarding the patient's need for ventilatory status at night Time: 12:51 Administered Medications Discontinued Medications Acetaminophen (Acetaminophen Susp 160 Mg/5 Ml Btl) 1,000 mg PEG NOW STA Stop: 09/26/22 10:41 Last Admin: 09/26/22 11:06 Dose: 1,000 mg Documented By: TIERNEY Sodium Chloride (Nss 1000ml) 1,000 mls @ 999 mls/hr IV .Q1H1M KENNEDY Stop: 09/26/22 10:00 Last Infusion: 09/26/22 11:29 Dose: 0 mls/hr Documented By: Admin: 09/26/22 09:46 Dose: 999 mls/hr Documented By: KATE Piperacillin Sod/Tazobactam Sod (Zosyn) 4.5 gm in 120 mls @ 240 mls/hr IV NOW ONE Stop: 09/26/22 09:57 Last Infusion: 09/26/22 10:22 Dose: 0 mls/hr Documented By: Admin: 09/26/22 09:46 Dose: 240 mls/hr Documented By: KATE Medical Decision Making Medical Records Attestation: I reviewed the patient's medical records. Home Medications Current Medication List: was personally reviewed by me Laboratory Data Attestation: I reviewed the patient's lab results. Labs interpreted by me are unremarkable 09/26/22 09:39 09/26/22 09:39 Lab Results 09/26/22 09/26/22 09/26/22 Range/Units 09:39 09:39 09:39 WBC 8.53 (4.8-10.8) K/ul RBC 3.57 L (4.20-5.40) M/uL Hgb 12.3 (12.0-16.0) g/dl Hct 35.0 L (37.0-47.0) % MCV 98.0 (80.0-100.0) fL MCH 34.5 H (25.0-34.0) pg MCHC 35.1 (32.0-36.0) g/dL RDW Std Deviation 43.4 (36.4-46.3) fL RDW Coeff of Flaquito 12.0 (11.5-14.5) % Plt Count 109 L (130-400) K/uL MPV 9.7 (9.4-12.4) fL Immature Gran % (Auto) 0.5 % Neut % (Auto) 78.5 % Lymph % (Auto) 8.2 % Fountain % (Auto) 12.7 % Eos % (Auto) 0.0 % Baso % (Auto) 0.1 % Neut # (Auto) 6.70 H (1.40-6.50) K/uL Lymph # (Auto) 0.70 L (1.2-3.4) K/uL Fountain # (Auto) 1.08 H (0.11-0.59) K/uL Eos # (Auto) 0.00 (0-0.50) K/uL Baso # (Auto) 0.01 (0-0.2) K/uL Immature Gran # (Auto) 0.04 (0.01-0.20) K/uL PT 11.2 (9.0-12.0) Seconds INR 1.0 (0.9-1.1) APTT 27.5 (21.0-31.0) Seconds PTT Ratio 1.0 Sodium 136 (136-145) mmol/L Potassium 4.0 (3.5-5.1) mmol/L Chloride 104 (98-107) mmol/L Carbon Dioxide 24 (21-32) mmol/L Anion Gap 8 (3-11) BUN 10 (6-23) mg/dl Creatinine 0.37 L (0.6-1.2) mg/dl Est Cr Clr Drug Dosing 183.3 ml/min Est GFR ( Amer) > 150.0 ml/min Est GFR (Non-Af Amer) 147.5 ml/min BUN/Creatinine Ratio 27.0 H (10-20) Glucose 80 (70-99(Fasting)) mg/dl Lactate (0.4-2.0) mmol/L Calcium 9.5 (8.6-10.3) mg/dl Magnesium 2.0 (1.7-2.4) mg/dl Total Bilirubin 0.3 (0.2-1.0) mg/dl Direct Bilirubin 0.1 (0-0.2) mg/dl AST 10 L (13-39) U/L ALT 6 L (7-52) U/L Alkaline Phosphatase 65 (34-104) U/L Troponin I High Sens 3.1 (0-14) pg/ml Total Protein 7.2 (6.0-8.3) gm/dl Albumin 3.8 (3.4-5.0) gm/dl Procalcitonin (0-0.5) ng/ml Adenovirus (PCR) (NotDetected) B. pertussis DNA (PCR) (NotDetected) B.parapertussis DNA PCR (NotDetected) C. pneumoniae DNA (PCR) (NotDetected) Coronavirus OC43 (PCR) (NotDetected) Coronavirus HKU1 (PCR) (NotDetected) Coronavirus 229E (PCR) (NotDetected) SARS-CoV-2 (PCR) (NotDetected) Coronavirus NL63 (PCR) (NotDetected) Human Metapneumovir PCR (NotDetected) Influenza Type A (PCR) (NotDetected) Influenza Type B (PCR) (NotDetected) M. pneumoniae (PCR) (NotDetected) Parainfluenza 1 (PCR) (NotDetected) Parainfluenza 2 (PCR) (NotDetected) Parainfluenza 3 (PCR) (NotDetected) Parainfluenza 4 (PCR) (NotDetected) RSV (PCR) (NotDetected) Entero/Rhino (PCR) (NotDetected) 09/26/22 09/26/22 09/26/22 Range/Units 09:39 09:39 10:02 WBC (4.8-10.8) K/ul RBC (4.20-5.40) M/uL Hgb (12.0-16.0) g/dl Hct (37.0-47.0) % MCV (80.0-100.0) fL MCH (25.0-34.0) pg MCHC (32.0-36.0) g/dL RDW Std Deviation (36.4-46.3) fL RDW Coeff of Flaquito (11.5-14.5) % Plt Count (130-400) K/uL MPV (9.4-12.4) fL Immature Gran % (Auto) % Neut % (Auto) % Lymph % (Auto) % [place]ountain % (Auto) % Eos % (Auto) % Baso % (Auto) % Neut # (Auto) (1.40-6.50) K/uL Lymph # (Auto) (1.2-3.4) K/uL F[place] # (Auto) (0.11-0.59) K/uL Eos # (Auto) (0-0.50) K/uL Baso # (Auto) (0-0.2) K/uL Immature Gran # (Auto) (0.01-0.20) K/uL PT (9.0-12.0) Seconds INR (0.9-1.1) APTT (21.0-31.0) Seconds PTT Ratio Sodium (136-145) mmol/L Potassium (3.5-5.1) mmol/L Chloride (98-107) mmol/L Carbon Dioxide (21-32) mmol/L Anion Gap (3-11) BUN (6-23) mg/dl Creatinine (0.6-1.2) mg/dl Est Cr Clr Drug Dosing ml/min Est GFR ( Amer) ml/min Est GFR (Non-Af Amer) ml/min BUN/Creatinine Ratio (10-20) Glucose (70-99(Fasting)) mg/dl Lactate 1.6 (0.4-2.0) mmol/L Calcium (8.6-10.3) mg/dl Magnesium (1.7-2.4) mg/dl Total Bilirubin (0.2-1.0) mg/dl Direct Bilirubin (0-0.2) mg/dl AST (13-39) U/L ALT (7-52) U/L Alkaline Phosphatase (34-104) U/L Troponin I High Sens (0-14) pg/ml Total Protein (6.0-8.3) gm/dl Albumin (3.4-5.0) gm/dl Procalcitonin < 0.05 (0-0.5) ng/ml Adenovirus (PCR) Not Detected (NotDetected) B. pertussis DNA (PCR) Not Detected (NotDetected) B.parapertussis DNA PCR Not Detected (NotDetected) C. pneumoniae DNA (PCR) Not Detected (NotDetected) Coronavirus OC43 (PCR) Not Detected (NotDetected) Coronavirus HKU1 (PCR) Not Detected (NotDetected) Coronavirus 229E (PCR) Not Detected (NotDetected) SARS-CoV-2 (PCR) Not Detected (NotDetected) Coronavirus NL63 (PCR) Not Detected (NotDetected) Human Metapneumovir PCR Not Detected (NotDetected) Influenza Type A (PCR) Not Detected (NotDetected) Influenza Type B (PCR) Not Detected (NotDetected) M. pneumoniae (PCR) Not Detected (NotDetected) Parainfluenza 1 (PCR) Not Detected (NotDetected) Parainfluenza 2 (PCR) Not Detected (NotDetected) Parainfluenza 3 (PCR) Not Detected (NotDetected) Parainfluenza 4 (PCR) Not Detected (NotDetected) RSV (PCR) Not Detected (NotDetected) Entero/Rhino (PCR) Not Detected (NotDetected) Imaging Data Attestation: I personally reviewed and interpreted this imaging study as follows: My Impression: Chest x-ray interpreted by me bilateral lower lobe opacities Radiologist's Impression: Chest X-Ray 09/26/22 08:53 XR chest 1V portable CLINICAL HISTORY: Sepsis. COMPARISON STUDY: Chest radiograph August 04, 2022. Chest CT August 05, 2020. FINDINGS: Tracheostomy tube is in place. Left basilar opacity has increased. Mild right basilar opacity has slightly increased. There is no pneumothorax. There may be a trace left pleural effusion. There is prominence of the cardiac silhouette. No evidence for overt pulmonary edema. IMPRESSION: 1. Increase in bibasilar opacities. Left basilar opacity favors pneumonia although atelectasis could appear similar. Right basilar opacity favors atelectasis. 2. Possible small left pleural effusion. ACT 112: Negative or not required by law. Electronically signed by: Otto Pearce M.D. 09/26/2022 9:19 AM ECG Data Attestation: I personally reviewed and interpreted this ECG as follows: Additional Comments: EKG interpreted by me sinus tachycardia rate of 111 nonspecific T wave abnormality, no obvious ST segment elevation or depression normal axis normal intervals, QTc is 454 Telemetry was ordered by me, interpreted as sinus tachycardia rate of 111 MDM Narrative Medical decision making differential diagnosis includes sepsis, pneumonia, bronchitis, upper respiratory tract infection, metabolic derangement Plan is to check sepsis labs, chest x-ray Independent history was provided to me by family at bedside External medical records were reviewed by me Patient will be admitted for left lower lobe pneumonia. Patient was started on IV Zosyn as the patient has a history of Klebsiella pneumonia. Impression & Plan Pneumonia Discharge Plan Visit Data Chief Complaint: Shortness of Breath/Dyspnea Stated Complaint: SOB, COUGH ED Provider: oJse Smith Discharge Problem: Pneumonia Patient Disposition: Admitted As Inpatient Forms Stand Alone Forms: [facility] Prescriptions Prescriptions: No Action ibuprofen 100 mg/5 mL suspension See Rx Instructions PO Q6H PRN (Reason: fever or pain) Qty: 473 5RF Dose Instruction: 10-20mL PO Q6H PRN; Rx Instructions: 10-20mL PO Q6H PRN; acetaminophen 160 mg/5 mL liquid 640 mg PO Q6H PRN (Reason: fever or pain) Qty: 473 5RF (DME) disposable gloves Misc See Rx Instructions .ROUTE .MEDSUPPLY Qty: 100 0RF Rx Instructions: As directed G80.9 (DME) incontinence pad, liner, disp Pad See Rx Instructions .ROUTE .MEDSUPPLY Qty: 20 0RF Rx Instructions: As directed G80.9 (DME) Miscellaneous Medical Supply (Hospital Bed) See Rx Instructions .Route .MEDSUPPLY Qty: 1 0RF Rx Instructions: 1 set; replacement pads for side rails on hospital bed (DME) nebulizers Mis See Rx Instructions .Route Qty: 1 0RF Rx Instructions: Nebulizer and nebulizer supplies Hers is broken beyond repair (DME) incontinence pad, liner, disp Pad See Rx Instructions .ROUTE .MEDSUPPLY Qty: 75 11RF Rx Instructions: 20 under pads and 75 liners miscellaneous medical supply [facility] miscellaneous ONCE Qty: 180 11RF Rx Instructions: ADULT LARGE INCONTINENT PANTS QTY 180 (DME) [place] Tracheostomy Care Tray Misc See Rx Instructions .Route Qty: 30 5RF Rx Instructions: Trach cleaning kit nitrofurantoin macrocrystal 50 mg capsule 50 mg feeding tube QAM Qty: 90 3RF cetirizine 10 mg tablet 10 mg feeding tube QAM Qty: 90 3RF trazodone 50 mg tablet 50 mg feeding tube HS Qty: 90 3RF polyethylene glycol 3350 17 gram/dose powder See Rx Instructions .ROUTE .COMPLEX Qty: 1530 3RF Dose Instruction: take 17GM (DISSOLVED IN WATER) by mouth once daily VIA FEEDING TUBE Rx Instructions: take 17GM (DISSOLVED IN WATER) by mouth once daily VIA FEEDING TUBE (DME) Miscellaneous Pulmonary Supply Mis See Rx Instructions .Route Qty: 1 0RF Rx Instructions: Replace current pulse oximeter clonazepam 0.5 mg tablet,disintegrating 0.5 mg feeding tube DIRECTED PRN (Reason: PROLONGED SEIZURES) Qty: 30 5RF Rx Instructions: take 1 to 2 tablets by mouth daily, for prolonged seizures (DME) Day and Night Brief, Large Misc See Rx Instructions .ROUTE .MEDSUPPLY Qty: 180 11RF Rx Instructions: girls get changed 6-8 x daily albuterol sulfate 2.5 mg /3 mL (0.083 %) solution for nebulization 2.5 mg inhalation Q4H PRN (Reason: Wheezing/ shortness of breath) Qty: 540 5RF acetylcysteine 200 mg/mL (20 %) solution 3 ml inhalation BID Qty: 100 5RF budesonide 0.5 mg/2 mL suspension for nebulization 0.5 mg inhalation BID Qty: 120 11RF miscellaneous medical supply [facility] 1 ea miscellaneous ONCE Qty: 1 0RF Rx Instructions: CORRUGATED TUBING FOR TRACH COLLAR 100 FT. miscellaneous medical supply [facility] 1 ea miscellaneous ONCE Qty: 1 0RF Rx Instructions: HME (HEAT MOISTURE EXCHANGERS) QTY: 30 baclofen 20 mg tablet 20 mg feeding tube TID 30 Days Qty: 90 11RF valproic acid (as sodium salt) 250 mg/5 mL solution 550 mg feeding tube TID 30 Days Qty: 990 11RF zonisamide 100 mg capsule 200 mg feeding tube .COMPLEX 30 Days Qty: 90 11RF Rx Instructions: 200 mg feeding tube TAKE 2 CAPS EVERY MORNING AND 1 CAP AT BEDTIME; fluoxetine 20 mg tablet 20 mg feeding tube QDL Qty: 30 11RF Boost 0.04 gram- 1 kcal/mL Liquid 1.5 ea PO QID@07,1130,15,19 Rx Instructions: 350mL via PEG tube at 400mL/hr at 0700, 1130, 1500, 1900 water Liquid 120 ea PO QID@07,1130,15,19 Rx Instructions: 120mL water flush via PEG before and after each bolus tube feed Xtracal Plus 14 gram-230 kcal/45 mL liquid in packet 1 ea feeding tube DAILY@1100 sodium chloride 7 % solution for nebulization 4 ml inhalation BID PRN (Reason: Other) tobramycin with nebulizer 300 mg/5 mL solution for nebulization 300 mg inhalation DIRECTED Rx Instructions: Uses 28 days on and 28 off (currently in the off cycle 09/26/22). Referrals Referrals: Janet Pearce MD [Primary Care Provider] -
--- NOTE | 2022-09-26 09:20 | XRay Report ---
XR chest 1V portable CLINICAL HISTORY: Sepsis. COMPARISON STUDY: Chest radiograph August 04, 2022. Chest CT August 05, 2020. FINDINGS: Tracheostomy tube is in place. Left basilar opacity has increased. Mild right basilar opaci ty has slightly increased. There is no pneumothorax. There may be a trace left pleural effusion. Ther e is prominence of the cardiac silhouette. No evidence for overt pulmonary edema. IMPRESSION: 1. Increase in bibasilar opacities. Left basilar opacity favors pneumonia although atelectasis could appear similar. Right basilar opacity favors atelectasis. 2. Possible small left pleural effusion. ACT 112: Negative or not required by law. Electronically signed by: Otto Pearce M.D. 09/26/2022 9:19 AM
[2022-09-26] MEDS ORDERED: PIPERACILLIN/TAZOBACTAM 4.5 GM/120 ML BAG IV ONE (09:28)
[2022-09-26 10:33] LABS: Alanine Aminotransferase 6 U/L (7-52); Albumin Level 3.8 gm/dl (3.4-5.0); Alkaline Phosphatase 65 U/L (34-104); Anion Gap 8 (3-11); Aspartate Aminotransferase 10 U/L (13-39); Bilirubin Direct 0.1 mg/dl (0-0.2); Bilirubin,Total 0.3 mg/dl (0.2-1.0); Blood Urea Nitrogen 10 mg/dl (6-23); Calcium 9.5 mg/dl (8.6-10.3); Carbon Dioxide 24 mmol/L (21-32); Chloride 104 mmol/L (98-107); Creatinine Clr Calc Pharmacy 183.3 ml/min; Est GFR (African American) > 150.0 ml/min; Est GFR (Non-African American) 147.5 ml/min; Glucose 80 mg/dl (70-99(Fasting)); Sodium 136 mmol/L (136-145); Total Protein 7.2 gm/dl (6.0-8.3)
[2022-09-26] MEDS ORDERED: ACETAMINOPHEN SUSP 1000 MG/31.2 ML UDP PEG STA (10:34)
[2022-09-26 10:36] LABS: Basophils # (auto) 0.01 K/uL (0-0.2); Basophils % (auto) 0.1 %; Hemoglobin 12.3 g/dl (12.0-16.0); Immature Granulocytes # (auto) 0.04 K/uL (0.01-0.20); Immature Granulocytes % (auto) 0.5 %; Lymphocytes % (auto) 8.2 %; Mean Corpuscular Hemoglobin 34.5 pg (25.0-34.0); Mean Corpuscular Hgb Conc 35.1 g/dL (32.0-36.0); Mean Platelet Volume 9.7 fL (9.4-12.4); Monocytes # (auto) 1.08 K/uL (0.11-0.59); Monocytes % (auto) 12.7 %; Neutrophils % (auto) 78.5 %; Platelet Count 109 K/uL (130-400); RDW Standard Deviation 43.4 fL (36.4-46.3); Red Blood Count 3.57 M/uL (4.20-5.40); White Blood Count 8.53 K/ul (4.8-10.8)
[2022-09-26 10:38] LABS: Troponin I High Sensitivity 3.1 pg/ml (0-14)
[2022-09-26] MEDS ORDERED: ACETAMINOPHEN SUSP 160 MG/5 ML BTL PEG STA (10:40)
[2022-09-26 10:45] LABS: Partial Thromboplastin Time 27.5 Seconds (21.0-31.0); Prothrombin Time 11.2 Seconds (9.0-12.0)
[2022-09-26 11:01] LABS: Adenovirus PCR Not Detected (NotDetected); Bordetella parapertussis PCR Not Detected (NotDetected); Bordetella pertussis PCR Not Detected (NotDetected); Chlamydia pneumoniae PCR Not Detected (NotDetected); Coronavirus 229E PCR Not Detected (NotDetected); Coronavirus CoV-2 (COVID19)PCR Not Detected (NotDetected); Coronavirus HKU1 PCR Not Detected (NotDetected); Coronavirus NL63 PCR Not Detected (NotDetected); Coronavirus OC43PCR Not Detected (NotDetected); Human Metapneumovirus PCR Not Detected (NotDetected); Influenza A PCR Not Detected (NotDetected); Influenza B PCR Not Detected (NotDetected); Mycoplasma pneumoniae PCR Not Detected (NotDetected); Parainfluenza Virus 1 PCR Not Detected (NotDetected); Parainfluenza Virus 2 PCR Not Detected (NotDetected); Parainfluenza Virus 3 PCR Not Detected (NotDetected); Parainfluenza Virus 4 PCR Not Detected (NotDetected); Respiratory Syncytial VirusPCR Not Detected (NotDetected); Rhinovirus/Enterovirus PCR Not Detected (NotDetected)
--- NOTE | 2022-09-26 12:40 | History & Physical Report ---
Date of Service September 26, 2022 Assessment & Plan (1) Acute respiratory failure with hypoxia: Plan: Selvin is a 27-year-old female with a past medical history of seizure disorder, chronic respiratory failure with hypoxia/hypercapnia, chronic mucous plugging, Pseudomonas infection, acro Mo bacterial pneumonia, and sepsis with trach and ventilator use in the evenings 2/2 quadriplegic cerebral palsy who over the past month has had intermittent fevers, Levaquin resistant culture positive Pseudomonas, and difficulty with cough the last 24 hours with desaturation 87% Acute on chronic hypoxic respiratory failure.? Pneumonia versus bronchiectasis exacerbation Patient has had sputum change, this has been more bloody and a thicker white and more runny/frothy than her usual secretions. Intermittently febrile through the end of August, although no fever in the last few days BioFire is negative Patient appears to be more comfortable and to have pain with cough per family, symptoms do seem to improve with time No leukocytosis Creatinine 0.37 Bio fire negative Chest x-ray: Increased bibasilar opacities, left opacity favoring pneumonia with atelectasis in the differential. Possible small left pleural effusion Last sputum culture 08/04/2022: Pseudomonas intermediate to cefepime, sensitive to ceftazidime/ciprofloxacin/meropenem/tobramycin/PIP Tazo, resistant to levofloxacin and gentamicin Repeat sputum and blood culture pending Procalcitonin is negative EKG on admission: Normal sinus tachycardia, nonspecific T wave changes without territorial ST or T wave abnormalities. No change from prior. QTc 454 Slightly contracted BUN/creatinine ratio, lactate normal Zosyn, follow repeat sputum cultures. Mucomyst nebs, hypertonic saline, pulmonary toilet, suction as needed, oxygen via trach collar. -Current evening vent settings are ST-AVAPS mode. Rate 12. EPAP 8. AVAP rate 5. TV 350. IPAP MAX 20. Minimum 10. Patient is admitted to ICU with pulmonary consult for evening ventilation management. Hospitalist team will continue primary management outside of evening vent. Given increased pain, hypoxia, and bloody secretions will obtain CT of the chest and extend into the soft tissue of neck Seizure disorder Ativan IV on-call for seizure Continue Depakote 550 mg every 8 hours, zonisamide Depression with anxiety Continue home fluoxetine/trazodone Diet: Meds and feedings through PEG tube. Nutrition consulted CODE STATUS: Conditional code. Okay to maintain a trach/airway, do not perform resuscitation/CPR in the event of cardiac arrest Disposition: PCU for evening vent managed DVT: Pharmacal prophylaxis temporally held due to report of bloody secretions. (2) Bronchiectasis: (3) Seizure disorder: (4) Chronic respiratory failure with hypoxia and hypercapnia: History of Present Illness Primary Care Provider: Janet Pearce MD Intermittent temperature ~101 over the last few weeks. Temp has been normal the last few days, was febrile end of August. Kishore (mother) Discussed with DR. Ribeiro (DR. Stover is normally her doc but he is on leave). Hathaway her settings needed to be adjusted THis past week seems to be in more distress which improves with tylenol, and desatting to mid 80s at home which is unusual outside of [facility] and illness Seems ot have more pain with cough in the last week. Pain and desaturation is what brought them in to the ER Last antibiotic was levoquin switched to ciptro 08/07 due to resistance mpatterns. No abx since then Suctions as needed. Normaly suctions clear to white thin secretions. Secretions have changed grealty in the last week.Is more runny/frothy, a little intermittently pink/blood tinged and thicker white. Different compared to normal secretions. Trach changes on thursday, no problems with last exchange 2 days ago. tract is intact, Coarse upper sounds seem new and much worse than normal. Pain and discomfort seems to improve with tylenol Normally is admitted to ICU for evening vent management. Current evening vent settings are ST-AVAPS mode. Rate 12. EPAP 8. AVAP rate 5. TV 350. IPAP MAX 20. Minimum 10. They use her vent while inpatient. Albuterol, pulmicort, chest vest and cough assist, and mucomist all twice daily Single dose albuterol and cough assist around 6pm, then 1x dose albuterol with vent at midnight.Can get CT scans, none recently. Medical History: Reviewed Medications: Reviewed Surgical History: Reviewed Family history: Reviewed Allergies: Reviewed Social History: Reviewed Code Status: No CPR. Has a trach, OK to maintain this but no CPR/Meds/Shock for cardiac arrest. Allergies Allergy/AdvReac Type Severity Reaction Status Date / Time No Known Allergies Allergy Verified 03/21/22 10:15 Home Medications Medication Instructions Recorded Confirmed Type food supplemt, lactose-reduced 1.5 ea PO QID@07,1130,15,07/28/18 09/26/22 History 0.04 gram-1 kcal/mL oral liquid (Boost) water 120 ea PO QID@07,1130,15,19 07/28/18 09/26/22 History acetaminophen 160 mg/5 mL oral 640 mg (20 mL) PO Q6H PRN fever or 12/21/18 09/26/22 Rx liquid pain #473 mL ibuprofen 100 mg/5 mL oral See Rx Instructions PO Q6H PRN 12/21/18 09/26/22 Rx suspension fever or pain #473 mL disposable gloves #100 ea 05/12/19 03/21/22 Rx incontinence pad, liner, disp #20 ea 05/12/19 03/21/22 Rx Miscellaneous Medical Supply #1 ea 02/22/20 03/21/22 Rx (Hospital Bed) nut.tx.,elemental,ryrxcos-fxiw-lco 1 ea feeding tube DAILY@1100 08/04/20 09/26/22 History 14 gram-230 kcal/45 mL liquid pkt (Xtracal Plus) nebulizers #1 ea 11/01/20 03/21/22 Rx miscellaneous medical supply 1 ea miscellaneous ONCE #1 ea 12/06/20 03/21/22 Rx miscellaneous medical supply 1 ea miscellaneous ONCE #1 ea 12/06/20 03/21/22 Rx incontinence pad, liner, disp #75 ea 01/03/21 03/21/22 Rx miscellaneous medical supply 1 ea miscellaneous ONCE #180 ea 01/03/21 03/21/22 Rx miscellaneous medical supply #30 ea 01/31/21 03/21/22 Rx (Gravity Tracheostomy Care Tray) cetirizine 10 mg tablet 10 mg feeding tube QAM #90 tabs 11/29/21 09/26/22 Rx nitrofurantoin macrocrystal 50 mg 50 mg feeding tube QAM #90 caps 11/29/21 09/26/22 Rx capsule polyethylene glycol 3350 17 See Rx Instructions .Route 11/29/21 09/26/22 Rx gram/dose oral powder .COMPLEX #1,530 grams trazodone 50 mg tablet 50 mg feeding tube HS #90 tabs 11/29/21 09/26/22 Rx Miscellaneous Pulmonary Supply #1 ea 12/23/21 03/21/22 Rx clonazepam 0.5 mg disintegrating 0.5 mg feeding tube DIRECTED 01/06/22 09/26/22 Rx tablet PRN PROLONGED SEIZURES #30 tabs diaper,brief,adult,disposable (Day #180 ea 03/25/22 Rx and Night Brief, Large) albuterol sulfate 2.5 mg/3 mL 2.5 mg (3 mL) inhalation Q4H PRN 04/30/22 09/26/22 Rx (0.083 %) solution for nebulization Wheezing/ shortness of breath #540 mL acetylcysteine 200 mg/mL (20 %) 3 ml inhalation BID #100 mL 06/12/22 09/26/22 Rx solution baclofen 20 mg tablet 20 mg feeding tube TID 30 days #90 08/13/22 09/26/22 Rx tabs fluoxetine 20 mg tablet 20 mg feeding tube QDL #30 tabs 08/13/22 09/26/22 Rx valproic acid (as sodium salt) 250 550 mg (11 mL) feeding tube TID 30 08/13/22 09/26/22 Rx mg/5 mL oral solution days #990 mL zonisamide 100 mg capsule 200 mg feeding tube .COMPLEX 30 08/13/22 09/26/22 Rx days #90 caps budesonide 0.5 mg/2 mL suspension 0.5 mg (2 mL) inhalation BID #120 08/18/22 09/26/22 Rx for nebulization mL sodium chloride 7 % for 4 ml inhalation BID PRN Other 09/26/22 09/26/22 History nebulization tobramycin with nebulizer 300 mg/5 300 mg inhalation DIRECTED 09/26/22 09/26/22 History mL solution for nebulization 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 Seizure disorder Sepsis Thrombocytopenia Thrombocytopenia Transaminitis Surgical History History of tracheostomy #6 Bivona 09/10/2020 S/P percutaneous endoscopic gastrostomy (PEG) tube placement Family History Brother Asthma Other Coronary heart disease Family history non-contributory Hypertension Social History Smoking Status: Never smoker Second Hand Exposure: No; Do You Dip or Chew Tobacco: No; Hx Alcohol Use: No Hx Substance Use: No Preferred Language: Serbian Communication Ability: Impaired Communication Ability Comment: 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 NAD. HEENT: Atraumatic, normocephalic. Pulm: Diffusely coarse upper and lower gong, clears slightly with cough/suction. No wheezing. Bibasilar crackles. Cardiac: regular, tachycardic, -mrg. Radial pulses intact and symmetrical. Abdominal: Nontender, nondistended, soft. BS present. Ext: chronic upper extremity limb contracture, cerebral palsy changes present. Results & Data Results & Data Vital Signs (Past 12 Hours) Vital Signs Temp Pulse Pulse Resp BP BP Pulse Ox 09/26/22 12:00 104 H 23 115/71 99 09/26/22 10:21 102 H 09/26/22 10:09 104 H 23 94 09/26/22 09:59 109 H 92 09/26/22 08:39 97 09/26/22 08:39 36.0 C L 113 H 20 112/65 96 O2 Del Method O2 Flow Rate 09/26/22 12:00 Trach Collar 4 09/26/22 10:21 09/26/22 10:09 Room Air 09/26/22 09:59 Room Air 09/26/22 08:39 Trach Collar 09/26/22 08:39 Room Air PG Care Time/CCT Total # of Minutes Spent Total Time Spent with Patient: Total time spent is greater than 50% in coordination of care (as documented) at patient's floor/unit and/or counseling patient: Coding Level of Care Code 90304 INT INP/OBS CARE MIN Diagnoses Acute respiratory failure with hypoxia J96.01 Bronchiectasis J47.9 Seizure disorder G40.909 Chronic respiratory failure with hypoxia and hypercapnia J96.11; J96.12
[2022-09-26] MEDS ORDERED: IOVERSOL 350 MG 125mL Prefilled Syringe IV ONE (14:17)
[2022-09-26] MEDS ORDERED: PIPERACILLIN/TAZOBACTAM 4.5 GM in DEXTROSE 5% 100 ML IV SCH (15:00)
[2022-09-26] MEDS ORDERED: PLASMA-LYTE A 1,000 ML IV SCH (15:13)
[2022-09-26] MEDS ORDERED: SODIUM CHLOR 7% 4 ML NEB INH PRN (15:13)
[2022-09-26] MEDS ORDERED: WATER PO SCH (15:13)
[2022-09-26] MEDS ORDERED: NON-FORMULARY MEDICATION (Food Supplemt, Lactose-Reduced [Boost] 0.04 gram- 1 kcal/mL Liqu PO SCH (15:13)
--- NOTE | 2022-09-26 15:38 | CT Scan Report ---
CT soft tissue neck w con HISTORY: 27 years-old Female hypoxia, bloody secretions, chronic trach, tachy acute hypoxia and tach ycardia COMPARISON: CTA chest of same day TECHNIQUE: Multiple axial CT images of the soft tissues of the neck were obtained following the intra venous ministration of 118 mL Optiray A dose lowering technique was used consistent with the principa ls of DEEPALI. FINDINGS: 1 dilation of the posterior horns of the lateral ventricles. The study is very motion degraded. A tra cheostomy cannula is in place which appears to be in satisfactory positioning. A nonspecific paratrac heal and upper mediastinal lymphadenopathy with lymph nodes measuring up to 1.2 x 1.1 cm. Subcentimet er supraclavicular lymph nodes. The airway appears patent. No parapharyngeal inflammation or fluid co llections. No pneumothorax. 6 cm nodular density at the right lung apex. Bilateral patchy pulmonary airspace opa cities. Aberrant right subclavian artery. Unremarkable vascular fractures. Polypoid mucosal thickenin g of the paranasal sinuses. No acute fracture identified. IMPRESSION: 1. Motion degraded exam. 2. Partially imaged biapical nodular airspace opacities better characterized on the CTA chest of same day. 3. Paratracheal and upper mediastinal lymphadenopathy. 4. Satisfactory positioning of the tracheostomy cannula. 5. No acute inflammatory changes or fluid collections identified within the soft tissues of the neck. 6. Partially imaged dilation involving the posterior horns of the lateral ventricles of unknown clini sarah significance or chronicity. Correlate with prior imaging. ACT 112: Negative or not required by law. The above report was generated using voice recognition software. It may contain grammatical, syntax o r spelling errors. Electronically signed by: Ervin Townsend M.D. 09/26/2022 3:37 PM
--- NOTE | 2022-09-26 15:54 | Pulmonary Consultation ---
Date of Consultation September 26, 2022 Assessment & Plan (1) Acute respiratory failure with hypoxia: (2) Sepsis due to pneumonia: (3) Bronchiectasis: (4) Mucus plugging of bronchi: (5) Quadriplegic cerebral palsy: (6) Seizure disorder: Plan -- Agree with mucomyst, aluterol, budesonide for pulmonary toilet -- Current CT with multifocal PNA but also demonstrates a moderate pericardial effusion. Hemodynamics are stable but will order an echo to follow up. Obtain ESR, MANDO w/reflex, viral resp panel -- Given hx of resistant psudomonas (with high VINICIUS to zosyn in the past) and achromobacter will start meropenem 1g q8 for now -- Note meropenem will reduce valporic acid levels in a dose-dependent manner. Monitor valproic acid levels daily. Hopefully further culture data and de- escalation in the next 48 hrs will limit meropenem doses. -- Procal is low but may be too early in the course, will order surveillence procal for AM. Thank you for the consult, will follow with you History of Present Illness Reason for Consultation: complicated pneumonia Requesting Physician: Dr. Bocanegra Attending Physician: Ray Bocanegra MD History of Present Illness 27 F with hx of CP w/ quadreplegia s/p trach / PEG (trilogy ventilator at night / trach collar days / with cough assist), seizure disorder, chronic mucus plugging, MDR bacterial colonization (pseudomonas and achromobacter) presents from home on 09/26/2022 with periods of desaturations, new pink / thin tracheal secretions and difficulty with cough for 1 day. Per last admission respiratory culture grew resistant pseudomonas on June 2022. she was recently treated with a course of cipro and finished her last dose at the end of July. Currently, her biofire panel is negative. Initial procal is very low. Current CT chest demonstrates new infiltrates in LLL, no obvious PEs. Clinically she is on her baseline trach mist. Per PEG site is clean/dry/intact. She and a recent UA yesterday which was clean. She does not have any significant skin break down. She is at baseline non-verbal and rsponds with facial expressions. Allergies Allergy/AdvReac Type Severity Reaction Status Date / Time No Known Allergies Allergy Verified 03/21/22 10:15 Home Medications Medication Instructions Recorded Confirmed Type food supplemt, lactose-reduced 1.5 ea PO QID@07,1130,15,19 07/28/18 09/26/22 History 0.04 gram-1 kcal/mL oral liquid (Boost) water 120 ea PO QID@07,1130,15,19 07/28/18 09/26/22 History acetaminophen 160 mg/5 mL oral 640 mg (20 mL) PO Q6H PRN fever or 12/21/18 09/26/22 Rx liquid pain #473 mL ibuprofen 100 mg/5 mL oral See Rx Instructions PO Q6H PRN 12/21/18 09/26/22 Rx suspension fever or pain #473 mL disposable gloves #100 ea 05/12/19 03/21/22 Rx incontinence pad, liner, disp #20 ea 05/12/19 03/21/22 Rx Miscellaneous Medical Supply #1 ea 02/22/20 03/21/22 Rx (Hospital Bed) nut.tx.,elemental,[id number]-azen-czu 1 ea feeding tube DAILY@1100 08/04/20 09/26/22 History 14 gram-230 kcal/45 mL liquid pkt (Xtracal Plus) nebulizers #1 ea 11/01/20 03/21/22 Rx miscellaneous medical supply 1 ea miscellaneous ONCE #1 ea 12/06/20 03/21/22 Rx miscellaneous medical supply 1 ea miscellaneous ONCE #1 ea 12/06/20 03/21/22 Rx incontinence pad, liner, disp #75 ea 01/03/21 03/21/22 Rx miscellaneous medical supply 1 ea miscellaneous ONCE #180 ea 01/03/21 03/21/22 Rx miscellaneous medical supply #30 ea 01/31/21 03/21/22 Rx (Morris Tracheostomy Care Tray) cetirizine 10 mg tablet 10 mg feeding tube QAM #90 tabs 11/29/21 09/26/22 Rx nitrofurantoin macrocrystal 50 mg 50 mg feeding tube QAM #90 caps 11/29/21 09/26/22 Rx capsule polyethylene glycol 3350 17 See Rx Instructions .Route 11/29/21 09/26/22 Rx gram/dose oral powder .COMPLEX #1,530 grams trazodone 50 mg tablet 50 mg feeding tube HS #90 tabs 11/29/21 09/26/22 Rx Miscellaneous Pulmonary Supply #1 ea 12/23/21 03/21/22 Rx clonazepam 0.5 mg disintegrating 0.5 mg feeding tube DIRECTED 01/06/22 09/26/22 Rx tablet PRN PROLONGED SEIZURES #30 tabs diaper,brief,adult,disposable (Day #180 ea 03/25/22 Rx and Night Brief, Large) albuterol sulfate 2.5 mg/3 mL 2.5 mg (3 mL) inhalation Q4H PRN 04/30/22 09/26/22 Rx (0.083 %) solution for nebulization Wheezing/ shortness of breath #540 mL acetylcysteine 200 mg/mL (20 %) 3 ml inhalation BID #100 mL 06/12/22 09/26/22 Rx solution baclofen 20 mg tablet 20 mg feeding tube TID 30 days #90 08/13/22 09/26/22 Rx tabs fluoxetine 20 mg tablet 20 mg feeding tube QDL #30 tabs 08/13/22 09/26/22 Rx valproic acid (as sodium salt) 250 550 mg (11 mL) feeding tube TID 30 08/13/22 09/26/22 Rx mg/5 mL oral solution days #990 mL zonisamide 100 mg capsule 200 mg feeding tube .COMPLEX 30 08/13/22 09/26/22 Rx days #90 caps budesonide 0.5 mg/2 mL suspension 0.5 mg (2 mL) inhalation BID #120 08/18/22 09/26/22 Rx for nebulization mL sodium chloride 7 % for 4 ml inhalation BID PRN Other 09/26/22 09/26/22 History nebulization tobramycin with nebulizer 300 mg/5 300 mg inhalation DIRECTED 09/26/22 09/26/22 History mL solution for nebulization Patient History Medical History Abnormal LFTs Achromobacter pneumonia Acute on chronic respiratory failure with hypoxemia Allergic rhinitis Chronic respiratory failure with hypoxia and hypercapnia Cortical blindness Depression with anxiety Hypotension, chronic Insomnia Mucus plugging of bronchi Multiple 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 Seizure disorder Sepsis Thrombocytopenia Thrombocytopenia Transaminitis Surgical History History of tracheostomy #6 Bivona 09/10/2020 S/P percutaneous endoscopic gastrostomy (PEG) tube placement Family History Brother Asthma Other Coronary heart disease Family history non-contributory Hypertension Social History Smoking Status: Never smoker Second Hand Exposure: No; Do You Dip or Chew Tobacco: No; Hx Alcohol Use: No Hx Substance Use: No Preferred Language: Lithuanian Communication Ability: Impaired Communication Ability Comment: Pt is non-verbal at baseline 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 Tracheostomy in place CV: RRR RESP: dminished breath sounds b/l Abd: Soft, nt, nd, peg tube C/D/I Ext: ext contracted, warm, dry well pefused Skin: no rashes, no ulcers Results & Data Results & Data Vital Signs (Past 12 Hours) Vital Signs Temp Pulse Pulse Resp BP BP Pulse Ox 09/26/22 15:20 103 H 18 94 09/26/22 15:10 112 H 38 H 94 09/26/22 15:01 109 H 27 H 95 09/26/22 15:01 103/69 09/26/22 15:00 112 H 30 H 85 L 09/26/22 14:50 114 H 42 H 94 09/26/22 14:47 104/70 09/26/22 14:47 110 H 31 H 09/26/22 14:40 114 H 20 92 09/26/22 14:35 109 H 27 H 84 L 09/26/22 14:03 36.5 C 108 H 22 117/76 98 09/26/22 12:00 104 H 23 115/71 99 09/26/22 10:21 102 H 09/26/22 10:09 104 H 23 94 09/26/22 09:59 109 H 92 09/26/22 08:39 97 09/26/22 08:39 36.0 C L 113 H 20 112/65 96 O2 Del Method O2 Flow Rate 09/26/22 15:20 09/26/22 15:10 09/26/22 15:01 09/26/22 15:01 09/26/22 15:00 09/26/22 14:50 09/26/22 14:47 09/26/22 14:47 09/26/22 14:40 09/26/22 14:35 09/26/22 14:03 Trach Collar 4 09/26/22 12:00 Trach Collar 4 09/26/22 10:21 09/26/22 10:09 Room Air 09/26/22 09:59 Room Air 09/26/22 08:39 Trach Collar 09/26/22 08:39 Room Air PG Care Time/CCT Total # of Minutes Spent Total Time Spent with Patient: Total time spent is greater than 50% in coordination of care (as documented) at patient's floor/unit and/or counseling patient: Coding Level of Care Code INT OBSERVATION CARE 50M LVL 2 Diagnoses Acute respiratory failure with hypoxia J96.01 Sepsis due to pneumonia J18.9; A41.9 Bronchiectasis J47.9 Mucus plugging of bronchi T17.500A Quadriplegic cerebral palsy G80.8 Seizure disorder G40.909
[2022-09-26] MEDS: BACLOFEN 20 MG TAB PEG SCH ×2 (16:06→21:42)
[2022-09-26] MEDS: POLYETHYLENE (MIRALAX) 17 GM PACK PEG SCH (16:06)
--- NOTE | 2022-09-26 16:09 | CT Scan Report ---
CT ANGIOGRAPHY OF THE CHEST, PULMONARY EMBOLUS PROTOCOL CLINICAL HISTORY: Hypoxia. COMPARISON STUDY: Chest CT August 05, 2020. Chest radiograph performed earlier today. TECHNIQUE: Following IV administration of 118 mL of Optiray, helical axial images of the chest were o btained utilizing the pulmonary embolus protocol. Maximal intensity projections and sagittal and cor onal reformats were viewed on an independent 3D workstation. IV contrast was administered without co mplication. Automated exposure control was utilized for the study. A dose lowering technique was ut ilized adhering to the principles of ALARA. FINDINGS: No pulmonary emboli are identified. There is no thoracic aortic dissection. The size of th e heart is normal. A moderate pericardial effusion is noted. This was not present on prior chest CT. There are small bilateral pleural effusions. No pneumothorax is present. Tracheostomy tube is in plac e. Prominent mediastinal lymph nodes are likely reactive. Mild airway secretions are noted, including within the right mainstem bronchus and right lower lobe segmental bronchi. Moderate bilateral lower lobe airspace opacities are present. Hypoenhancing foci are noted within the airspace opacities. In a ddition, there are multifocal airspace opacities within the upper lobes. No cavitation is present. No acute fractures within the bony thorax are present. Visualized portions of the upper abdomen are unr emarkable. IMPRESSION: 1. No pulmonary emboli identified. 2. Moderate-sized pericardial effusion. This finding will be called/faxed to ordering provider at chika e of dictation. 3. Small bilateral pleural effusions. Moderate bilateral lower lobe airspace opacities and multifocal bilateral upper lobe airspace opacities. The findings favor multifocal pneumonia. 4. Prominent mediastinal lymph nodes which are likely reactive. 5. Scattered secretions within the airways, as above. Tracheostomy tube in place. ACT 112: Negative or not required by law. Electronically signed by: Otto Pearce M.D. 09/26/2022 4:08 PM
[2022-09-26] MEDS ORDERED: ICU Protocol for HYPERglycemia SCH (16:30)
[2022-09-26] MEDS: ALBUTEROL 0.083% NEBU SOLN 3 ML VIAL INH PRN (16:59)
[2022-09-26] MEDS: VALPROIC ACID 50 MG/ML UDP PO SCH ×2 (17:34→21:42)
[2022-09-26] MEDS: MEROPENEM 500 MG in SYRINGE 0 ML IV SCH ×2 (17:34→21:44)
[2022-09-26] MEDS: ACETAMINOPHEN 325 MG TAB PO PRN ×2 (17:38→21:46)
[2022-09-26] MEDS: BUDESONIDE 0.5 MG/2 ML VIAL (PULMICORT) INH SCH (19:13)
[2022-09-26] MEDS: ACETYLCYSTEINE 20% INHAL SOLN 4ML ***DISPENSED BY RESP. INH SCH (19:13)
[2022-09-26] MEDS: traZODone HCL 50 MG TAB PEG SCH (21:42)
--- NOTE | 2022-09-27 00:14 | Electrocardiogram Report ---
Test Reason : Blood Pressure : / mmHG Vent. Rate : 111 BPM Atrial Rate : 111 BPM P-R Int : 122 ms QRS Dur : 070 ms QT Int : 334 ms P-R-T Axes : 050 072 015 degrees QTc Int : 454 ms Sinus tachycardia Nonspecific T wave abnormality Abnormal ECG When compared with ECG of 23-NOV-2021 00:45, No significant change was found Confirmed by Ramses Jimenez ([id number]) on 09/27/2022 12:14:12 AM Referred By: REFERRED SELF Confirmed By:Ramses Jimenez
[2022-09-27] MEDS: ACETAMINOPHEN 325 MG TAB PO PRN ×3 (02:07→20:27)
[2022-09-27 05:08] LABS: Basophils # (auto) 0.01 K/uL (0-0.2); Basophils % (auto) 0.1 %; Hematocrit (blood only) 35.5 % (37.0-47.0); Immature Granulocytes # (auto) 0.03 K/uL (0.01-0.20); Immature Granulocytes % (auto) 0.3 %; Lymphocytes # (auto) 0.78 K/uL (1.2-3.4); Lymphocytes % (auto) 7.3 %; Mean Corpuscular Hemoglobin 34.4 pg (25.0-34.0); Mean Corpuscular Hgb Conc 33.8 g/dL (32.0-36.0); Mean Corpuscular Volume 101.7 fL (80.0-100.0); Mean Platelet Volume 9.6 fL (9.4-12.4); Monocytes # (auto) 1.54 K/uL (0.11-0.59); Monocytes % (auto) 14.3 %; Neutrophils # (auto) 8.39 K/uL (1.40-6.50); Platelet Count 104 K/uL (130-400); RDW Coefficient of Variation 12.3 % (11.5-14.5); RDW Standard Deviation 46.2 fL (36.4-46.3); Red Blood Count 3.49 M/uL (4.20-5.40); White Blood Count 10.75 K/ul (4.8-10.8)
[2022-09-27] MEDS: MEROPENEM 500 MG in SYRINGE 0 ML IV SCH ×4 (05:19→22:22)
[2022-09-27 06:07] LABS: Anion Gap 9 (3-11); Calcium 9.3 mg/dl (8.6-10.3); Carbon Dioxide 22 mmol/L (21-32); Chloride 105 mmol/L (98-107); Magnesium 2.1 mg/dl (1.7-2.4); Potassium 3.7 mmol/L (3.5-5.1); Sodium 136 mmol/L (136-145)
[2022-09-27 06:13] LABS: BUN Creatinine Ratio 20.6 (10-20); Blood Urea Nitrogen 7 mg/dl (6-23); Creatinine Clr Calc Pharmacy 199.5 ml/min; Est GFR (African American) > 150.0 ml/min; Est GFR (Non-African American) > 150.0 ml/min; Glucose 87 mg/dl (70-99(Fasting)); Phosphorus 3.5 mg/dl (2.5-4.9)
[2022-09-27] MEDS: BACLOFEN 20 MG TAB PEG SCH ×3 (06:19→20:29)
[2022-09-27] MEDS: ALBUTEROL 0.083% NEBU SOLN 3 ML VIAL INH PRN ×2 (07:31→15:25)
[2022-09-27] MEDS: BUDESONIDE 0.5 MG/2 ML VIAL (PULMICORT) INH SCH ×2 (07:32→19:11)
[2022-09-27] MEDS: ACETYLCYSTEINE 20% INHAL SOLN 4ML ***DISPENSED BY RESP. INH SCH ×2 (07:32→19:10)
--- NOTE | 2022-09-27 08:26 | Critical Care Progress Note ---
Date of Service September 27, 2022 Assessment & Plan (1) Acute respiratory failure with hypoxia: (2) Sepsis due to pneumonia: (3) Bronchiectasis: (4) Mucus plugging of bronchi: (5) Quadriplegic cerebral palsy: (6) Seizure disorder: Plan -- Continue mucomyst, aluterol, budesonide, chest percussion for pulmonary toilet -- Current CT with multifocal PNA but also demonstrates a moderate pericardial effusion, echo 09/27 without tamponade physiology, past CT scans have also demonstrated a small pericardial effusion. Will insert hardy for strict I/Os, repeat UA and start rianna diuresis as tolerated -- Given hx of resistant psudomonas (with high VINICIUS to zosyn in the past) and achromobacter she is on meropenem 1g q8 for now, however with procalcitonin continued to be low, hoping to de-escalate quickly in the next 12-24hrs. Will need to adjust valpric acid dose, on monitor levels with clinical neurochecks. Will follow with you Admission and Anticipated Discharge Date Admission Date: September 26, 2022 Subjective 09/27/2022. No acute events overnight. Appears more comfortable this am, less tachycardic. Continues to have tracheal secretions. Echo this am without tamponade physiology. Review of Systems Review of Systems: Unable to be obtained Physical Exam Physical Exam: Gen: Appears chronically ill, does not follow commands, responds with facial expressions. Tracheostomy in place CV: RRR RESP: dminished breath sounds b/l Abd: Soft, nt, nd, peg tube C/D/I Ext: ext contracted, warm, dry well pefused Skin: no rashes, no ulcers Results & Data Results & Data Vital Signs (Past 12 Hours) Vital Signs Temp Pulse Pulse Resp BP Pulse Ox O2 Del Method 09/27/22 07:45 109 H 30 H 98 Trach Collar 09/27/22 06:00 104 H 24 107/84 98 09/27/22 05:00 106 H 21 99/80 L 97 09/27/22 04:00 98 H 20 101/78 98 09/27/22 04:33 36.1 C L 09/27/22 03:00 105 H 19 100/76 97 09/27/22 02:00 130 H 22 111/78 97 09/27/22 01:00 103 H 24 96/68 L 96 09/27/22 00:00 102 H 19 88/72 L 98 09/26/22 23:00 107 H 27 H 82/62 L 100 09/26/22 22:00 122 H 34 H 119/76 90 09/26/22 21:00 108 H 27 H 106/74 09/27/22 00:25 97 H 09/26/22 22:20 37.3 C 09/26/22 20:52 37.3 C O2 Flow Rate FiO2 09/27/22 07:45 12 40 09/27/22 06:00 09/27/22 05:00 09/27/22 04:00 09/27/22 04:33 09/27/22 03:00 09/27/22 02:00 09/27/22 01:00 09/27/22 00:00 09/26/22 23:00 09/26/22 22:00 09/26/22 21:00 09/27/22 00:25 09/26/22 22:20 09/26/22 20:52 Coding Level of Care Code 99789 CRITICAL CARE 1ST 30-74M Diagnoses Acute respiratory failure with hypoxia J96.01 Sepsis due to pneumonia J18.9; A41.9 Bronchiectasis J47.9 Mucus plugging of bronchi T17.500A Quadriplegic cerebral palsy G80.8 Seizure disorder G40.909 Time Spent (min) 55
[2022-09-27] MEDS: POLYETHYLENE (MIRALAX) 17 GM PACK PEG SCH (08:42)
[2022-09-27] MEDS: CETIRIZINE HCL 10 MG TABLET PO SCH (08:42)
[2022-09-27] MEDS: VALPROIC ACID 50 MG/ML UDP PO SCH ×3 (09:42→20:28)
[2022-09-27] MEDS ORDERED: FUROSEMIDE INJ 20 MG/2 ML VIAL IV ONE (09:44)
[2022-09-27 10:06] LABS: Appearance Urine Clear (Clear); Bilirubin Urine Negative (Negative); Blood Urine Trace (Negative); Color Urine Yellow; Glucose Urine UA Negative (Negative); Ketones Urine Negative (Negative); Leukocyte Esterase Urine Negative (Negative); Nitrite Urine Negative (Negative); Protein Urine Negative (Negative); Specific Gravity Urine 1.004 (1.000-1.030); Urobilinogen Urine Negative (Negative)
[2022-09-27 10:51] LABS: Bacteria Urine Negative (Negative); Epithelial Cell Urine 0-5 /lpf (0-5); RBC Urine 0-4 /hpf (0-4); WBC Urine 0-5 /hpf (0-5)
[2022-09-27] MEDS ORDERED: [UNRECOGNIZED DRUG - OTHER] feeding tube SCH (11:00)
[2022-09-27] MEDS: IBUPROFEN 200 MG/10 ML UDC GT PRN (11:19)
[2022-09-27] MEDS: FLUoxetine HCL 20 MG CAP PO SCH (11:20)
--- NOTE | 2022-09-27 11:55 | XCELERA ---
[id number]
--- NOTE | 2022-09-27 18:25 | Hospitalist Progress Note ---
Date of Service September 27, 2022 Assessment & Plan (1) Acute respiratory failure with hypoxia: Plan: Selvin is a 27-year-old female with a past medical history of seizure disorder, chronic respiratory failure with hypoxia/hypercapnia, chronic mucous plugging, Pseudomonas infection,, and sepsis with trach and ventilator use in the evenings 2/2 quadriplegic cerebral palsy who over the past month has had intermittent fevers, Levaquin resistant culture positive Pseudomonas, and difficulty with cough the last 24 hours with desaturation 87% Acute on chronic hypoxic respiratory failure.? Pneumonia versus tracheitis versus bronchiectasis exacerbation Procalcitonin is normal BioFire is negative Patient appears to be more comfortable and to have pain with cough per family, symptoms do seem to improve with time Last sputum culture 08/04/2022: Pseudomonas intermediate to cefepime, sensitive to ceftazidime/ciprofloxacin/meropenem/tobramycin/PIP Tazo, resistant to levofloxacin and gentamicin Repeat sputum and blood culture pending Patient started on meropenem meropenem typically can lower her valproic acid level subsequently her traditional valproic acid dose was increased with pharmacy oversight Seizure disorder [facility] for seizure Escalate Depakote dosing given meropenem use, continue zonisamide Depression with anxiety Continue home fluoxetine/trazodone Diet: Meds and feedings through PEG tube. Nutrition consulted CODE STATUS: Conditional code. Okay to maintain a trach/airway, do not perform resuscitation/CPR in the event of cardiac arrest DVT: Pharmacal prophylaxis temporally held due to report of bloody secretions. (2) Seizure disorder: (3) Chronic respiratory failure with hypoxia and hypercapnia: Admission and Anticipated Discharge Date Admission Date: September 26, 2022 Subjective Patient is nonverbal she is got some serosanguinous mucousy discharge out of her trach with coughing She is awake but does not follow commands spontaneously moves extremities but is mostly contracted Physical Exam Physical Exam: Patient's eyes are open does not follow commands lungs are coarse bilaterally mucopurulent discharge from her trach abdomen is tense with her coughing difficult to examine Results & Data Results & Data Vital Signs (Past 12 Hours) Vital Signs Temp Pulse Pulse Resp BP Pulse Ox O2 Del Method 09/27/22 16:01 103 H 43 H 96 09/27/22 16:01 97/68 L 09/27/22 16:00 108 H 25 H 95 09/27/22 16:00 103 H 09/27/22 16:27 98.2 F 09/27/22 15:25 106 H 28 H 94 Trach Collar 09/27/22 15:00 101 H 37 H 97 09/27/22 15:00 102/70 09/27/22 14:00 104 H 40 H 96 09/27/22 14:00 100/68 09/27/22 13:00 110 H 35 H 97 09/27/22 13:00 109/71 09/27/22 15:22 98.8 F 09/27/22 12:01 118 H 19 96 09/27/22 12:01 86/64 L 09/27/22 12:00 114 H 30 H 96 09/27/22 11:00 116 H 37 H 94 09/27/22 11:00 103/71 09/27/22 10:00 114 H 38 H 94 09/27/22 10:00 104/84 09/27/22 09:00 123 H 49 H 95 09/27/22 09:00 104/78 09/27/22 08:00 115 H 30 H 95 09/27/22 08:00 99/64 L 09/27/22 07:00 113 H 31 H 97 09/27/22 07:00 101/74 09/27/22 08:00 Trach Collar 09/27/22 08:00 98.6 F 09/27/22 08:00 104 H 09/27/22 08:00 09/27/22 07:45 109 H 30 H 98 Trach Collar O2 Flow Rate FiO2 09/27/22 16:01 09/27/22 16:01 09/27/22 16:00 09/27/22 16:00 09/27/22 16:27 09/27/22 15:25 12 40 09/27/22 15:00 09/27/22 15:00 09/27/22 14:00 09/27/22 14:00 09/27/22 13:00 09/27/22 13:00 09/27/22 15:22 09/27/22 12:01 09/27/22 12:01 09/27/22 12:00 09/27/22 11:00 09/27/22 11:00 09/27/22 10:00 09/27/22 10:00 09/27/22 09:00 09/27/22 09:00 09/27/22 08:00 09/27/22 08:00 09/27/22 07:00 09/27/22 07:00 09/27/22 08:00 40 09/27/22 08:00 09/27/22 08:00 09/27/22 08:00 40 09/27/22 07:45 12 40 Laboratory Results Reviewed CBC reviewed chemistry PG Care Time/CCT Total # of Minutes Spent Total Time Spent with Patient: Total time spent is greater than 50% in coordination of care (as documented) at patient's floor/unit and/or counseling patient: Coding Level of Care Code 45578 SUB INP/OBS CARE 2/35MIN Diagnoses Acute respiratory failure with hypoxia J96.01 Seizure disorder G40.909 Chronic respiratory failure with hypoxia and hypercapnia J96.11; J96.12
[2022-09-27] MEDS: traZODone HCL 50 MG TAB PEG SCH (20:28)
[2022-09-28] MEDS: IBUPROFEN 200 MG/10 ML UDC GT PRN (03:13)
[2022-09-28 04:57] LABS: Basophils # (auto) 0.01 K/uL (0-0.2); Basophils % (auto) 0.1 %; Eosinophils # (auto) 0.02 K/uL (0-0.50); Eosinophils % (auto) 0.2 %; Hematocrit (blood only) 36.4 % (37.0-47.0); Hemoglobin 12.4 g/dl (12.0-16.0); Immature Granulocytes # (auto) 0.04 K/uL (0.01-0.20); Immature Granulocytes % (auto) 0.4 %; Lymphocytes # (auto) 1.12 K/uL (1.2-3.4); Lymphocytes % (auto) 12.6 %; Mean Corpuscular Hemoglobin 34.6 pg (25.0-34.0); Mean Corpuscular Hgb Conc 34.1 g/dL (32.0-36.0); Mean Corpuscular Volume 101.7 fL (80.0-100.0); Mean Platelet Volume 9.1 fL (9.4-12.4); Monocytes # (auto) 1.37 K/uL (0.11-0.59); Monocytes % (auto) 15.4 %; Neutrophils # (auto) 6.36 K/uL (1.40-6.50); Neutrophils % (auto) 71.3 %; Platelet Count 148 K/uL (130-400); RDW Coefficient of Variation 12.2 % (11.5-14.5); RDW Standard Deviation 46.2 fL (36.4-46.3); Red Blood Count 3.58 M/uL (4.20-5.40); White Blood Count 8.92 K/ul (4.8-10.8)
[2022-09-28 05:04] LABS: Anion Gap 7 (3-11); BUN Creatinine Ratio 23.4 (10-20); Blood Urea Nitrogen 11 mg/dl (6-23); Calcium 9.6 mg/dl (8.6-10.3); Carbon Dioxide 25 mmol/L (21-32); Chloride 105 mmol/L (98-107); Creatinine Clr Calc Pharmacy 157.5 ml/min; Est GFR (African American) > 150.0 ml/min; Est GFR (Non-African American) 136.3 ml/min; Glucose 92 mg/dl (70-99(Fasting)); Potassium 4.1 mmol/L (3.5-5.1); Sodium 137 mmol/L (136-145)
[2022-09-28] MEDS: MEROPENEM 500 MG in SYRINGE 0 ML IV SCH (05:40)
[2022-09-28] MEDS: ACETYLCYSTEINE 20% INHAL SOLN 4ML ***DISPENSED BY RESP. INH SCH (07:29)
[2022-09-28] MEDS: BUDESONIDE 0.5 MG/2 ML VIAL (PULMICORT) INH SCH (07:29)
[2022-09-28] MEDS: ALBUTEROL 0.083% NEBU SOLN 3 ML VIAL INH PRN ×2 (07:29→11:49)
--- NOTE | 2022-09-28 07:32 | Hospitalist Progress Note ---
Date of Service September 28, 2022 Assessment & Plan (1) Acute respiratory failure with hypoxia: Plan: Selvin is a 27-year-old female with a past medical history of seizure disorder, chronic respiratory failure with hypoxia/hypercapnia, chronic mucous plugging, Pseudomonas infection,, and sepsis with trach and ventilator use in the evenings 2/2 quadriplegic cerebral palsy who over the past month has had intermittent fevers, Levaquin resistant culture positive Pseudomonas, and difficulty with cough the last 24 hours with desaturation 87% Acute on chronic hypoxic respiratory failure.? Pneumonia versus tracheitis versus bronchiectasis exacerbation Procalcitonin is normal BioFire is negative Patient appears to be more comfortable and to have pain with cough per family, symptoms do seem to improve with time Last sputum culture 08/04/2022: Pseudomonas intermediate to cefepime, sensitive to ceftazidime/ciprofloxacin/meropenem/tobramycin/PIP Tazo, resistant to levofloxacin and gentamicin Repeat sputum and blood culture pending Patient started on meropenem meropenem typically can lower her valproic acid level subsequently her traditional valproic acid dose was increased with pharmacy oversight Seizure disorder Ativan IV on-call for seizure Escalate Depakote dosing given meropenem use, continue zonisamide, Depakote level low on 09/28, give 500mg iv x1 and increase dose to 1000 tid Depression with anxiety Continue home fluoxetine/trazodone Diet: Meds and feedings through PEG tube. Nutrition consulted CODE STATUS: Conditional code. Okay to maintain a trach/airway, do not perform resuscitation/CPR in the event of cardiac arrest DVT: Pharmacal prophylaxis temporally held due to report of bloody secretions. (2) Seizure disorder: (3) Chronic respiratory failure with hypoxia and hypercapnia: Admission and Anticipated Discharge Date Admission Date: September 26, 2022 Results & Data Results & Data Vital Signs (Past 12 Hours) Vital Signs Temp Pulse Pulse Resp BP BP Pulse Ox 09/28/22 06:00 115 H 37 H 95 09/28/22 05:00 90 36 H 112/76 97 09/28/22 04:00 108 H 35 H 101/82 96 09/28/22 03:00 106 H 16 124/78 95 09/28/22 03:19 97.9 F 09/28/22 02:00 90 33 H 99/68 L 96 09/28/22 01:00 102 H 33 H 113/74 97 09/28/22 00:00 107 H 33 H 105/75 96 09/27/22 23:00 108 H 31 H 110/76 95 09/27/22 22:00 107 H 30 H 92/64 L 93 09/27/22 21:00 115 H 31 H 90/63 L 90 09/27/22 20:00 121 H 27 H 118/89 83 L 09/28/22 00:58 103 H 09/27/22 22:55 97.7 F 104 H 22 92/64 L 92 09/27/22 22:26 98.4 F 09/27/22 20:07 O2 Del Method 09/28/22 06:00 09/28/22 05:00 09/28/22 04:00 09/28/22 03:00 09/28/22 03:19 09/28/22 02:00 09/28/22 01:00 09/28/22 00:00 09/27/22 23:00 09/27/22 22:00 09/27/22 21:00 09/27/22 20:00 09/28/22 00:58 09/27/22 22:55 Trach Collar 09/27/22 22:26 09/27/22 20:07 Trach Collar PG Care Time/CCT Total # of Minutes Spent Total Time Spent with Patient: Total time spent is greater than 50% in coordination of care (as documented) at patient's floor/unit and/or counseling patient: Coding Diagnoses Acute respiratory failure with hypoxia J96.01 Seizure disorder G40.909 Chronic respiratory failure with hypoxia and hypercapnia J96.11; J96.12
[2022-09-28] MEDS ORDERED: VALPROATE SOD 500 MG in DEXTROSE 5% 50 ML IV ONE (07:45)
[2022-09-28] MEDS ORDERED: VALPROIC ACID SOLN 500 MG/10 ML UDC PO SCH (08:00)
[2022-09-28] MEDS: BACLOFEN 20 MG TAB PEG SCH (08:55)
[2022-09-28] MEDS: CETIRIZINE HCL 10 MG TABLET PO SCH (08:55)
[2022-09-28] MEDS: POLYETHYLENE (MIRALAX) 17 GM PACK PEG SCH (08:55)
--- NOTE | 2022-09-28 09:05 | Pulmonology Progress Note ---
Date of Service September 28, 2022 Assessment & Plan (1) Acute respiratory failure with hypoxia: (2) Sepsis due to pneumonia: (3) Bronchiectasis: (4) Mucus plugging of bronchi: (5) Quadriplegic cerebral palsy: (6) Seizure disorder: Plan -- Continue mucomyst, aluterol, budesonide, chest percussion for pulmonary toilet -- multifocal PNA -- Pericardial effusion, stable since last evaluation -- Resistant pseudomonas colonization with tracheitis, D/C meropenem. Start cipro and resume inhaled Tobramycin. -- Will D/C hardy, continue respiratory care Will follow with you Admission and Anticipated Discharge Date Admission Date: September 26, 2022 Subjective 09/27/2022. No acute events overnight. Appears more comfortable this am, less tachycardic. Continues to have tracheal secretions. Echo this am without tamponade physiology, in fact quantity of effusion is described as reduced from last evaluation. 09/28/2022. Resp culture w/ sensitivities back, similar resistance pattern to last resp culture. Secretions have improved from yesterday. On normal regimen of trach mist days, and Trilegy ventilator support at night. Review of Systems Review of Systems: Unable to be obtained Physical Exam Physical Exam: Gen: Appears chronically ill, does not follow commands, responds with facial expressions. Tracheostomy in place CV: RRR RESP: dminished breath sounds b/l Abd: Soft, nt, nd, peg tube C/D/I Ext: ext contracted, warm, dry well pefused Skin: no rashes, no ulcers Results & Data Results & Data Vital Signs (Past 12 Hours) Vital Signs Temp Pulse Pulse Resp BP BP Pulse Ox 09/28/22 07:37 107 H 24 94 09/28/22 07:00 96 H 20 09/28/22 07:00 36.4 C 99 H 22 95 09/28/22 06:00 115 H 37 H 95 09/28/22 05:00 90 36 H 112/76 97 09/28/22 04:00 108 H 35 H 101/82 96 09/28/22 03:00 106 H 16 124/78 95 09/28/22 03:19 36.6 C 09/28/22 02:00 90 33 H 99/68 L 96 09/28/22 01:00 102 H 33 H 113/74 97 09/28/22 00:00 107 H 33 H 105/75 96 09/27/22 23:00 108 H 31 H 110/76 95 09/27/22 22:00 107 H 30 H 92/64 L 93 09/28/22 00:58 103 H 09/27/22 22:55 36.5 C 104 H 22 92/64 L 92 09/27/22 22:26 36.9 C O2 Del Method O2 Flow Rate FiO2 09/28/22 07:37 Trach Collar 12 40 09/28/22 07:00 09/28/22 07:00 Mechanical Vent 09/28/22 06:00 09/28/22 05:00 09/28/22 04:00 09/28/22 03:00 09/28/22 03:19 09/28/22 02:00 09/28/22 01:00 09/28/22 00:00 09/27/22 23:00 09/27/22 22:00 09/28/22 00:58 09/27/22 22:55 Trach Collar 09/27/22 22:26 PG Care Time/CCT Total # of Minutes Spent Total Time Spent with Patient: Total time spent is greater than 50% in coordination of care (as documented) at patient's floor/unit and/or counseling patient: Coding Level of Care Code 39377 SUB INP/OBS CARE 2/35MIN Diagnoses Acute respiratory failure with hypoxia J96.01 Sepsis due to pneumonia J18.9; A41.9 Bronchiectasis J47.9 Mucus plugging of bronchi T17.500A Quadriplegic cerebral palsy G80.8 Seizure disorder G40.909
[2022-09-28] MEDS: FLUoxetine HCL 20 MG CAP PO SCH (11:08)
[2022-09-28] MEDS ORDERED: CIPROFLOXACIN / D5W 400 MG/200 ML BAG IV SCH (12:00)
[2022-09-28] MEDS ORDERED: CIPROFLOXACIN 250 MG TAB PEG SCH (12:00)
--- NOTE | 2022-09-28 16:21 | Discharge Summary ---
Date of Service September 28, 2022 Admission HPI Per Admitting Provider Intermittent temperature ~101 over the last few weeks. Temp has been normal the last few days, was febrile end of August. Kishore (mother) Discussed with DR. Ribeiro (DR. Stover is normally her doc but he is on leave). [place] her settings needed to be adjusted THis past week seems to be in more distress which improves with tylenol, and desatting to mid 80s at home which is unusual outside of [facility] and illness Seems ot have more pain with cough in the last week. Pain and desaturation is what brought them in to the ER Last antibiotic was levoquin switched to ciptro 08/07 due to resistance mpatterns. No abx since then Suctions as needed. Normaly suctions clear to white thin secretions. Secretions have changed grealty in the last week.Is more runny/frothy, a little intermittently pink/blood tinged and thicker white. Different compared to normal secretions. Trach changes on thursday, no problems with last exchange 2 days ago. tract is intact, Coarse upper sounds seem new and much worse than normal. Pain and discomfort seems to improve with tylenol Normally is admitted to ICU for evening vent management. Current evening vent settings are ST-AVAPS mode. Rate 12. EPAP 8. AVAP rate 5. TV 350. IPAP MAX 20. Minimum 10. They use her vent while inpatient. Albuterol, pulmicort, chest vest and cough assist, and mucomist all twice daily Single dose albuterol and cough assist around 6pm, then 1x dose albuterol with v ent at midnight.Can get CT scans, none recently. Medical History: Reviewed Medications: Reviewed Surgical History: Reviewed Family history: Reviewed Allergies: Reviewed Social History: Reviewed Code Status: No CPR. Has a trach, OK to maintain this but no CPR/Meds/Shock for cardiac arrest. Principal Diagnosis tracheitis functional quadriplegia chronic respiratory failure with need of ventilator support at night Discharge Exam Patient's eyes are open does not follow commands lungs are coarse bilaterally mucopurulent discharge from her trach abdomen is tense with her coughing difficult to examine Discharge Data Allergies Allergy/AdvReac Type Severity Reaction Status Date / Time No Known Allergies Allergy Verified 03/21/22 10:15 Consultations 09/26/22 11:39 ED Decision to Admit Stat 09/26/22 15:13 Consult Pulmonology Routine Ordered Studies 09/26/22 13:07 CT angio chest PE protocol Routine CT neck soft tissues [CT soft tissue neck w con] Routine Hospital Course (1) Acute respiratory failure with hypoxia: Selvin is a 27-year-old female with a past medical history of seizure disorder, chronic respiratory failure with hypoxia/hypercapnia, chronic mucous plugging, Pseudomonas infection,, and sepsis with trach and ventilator use in the evenings 2/2 quadriplegic cerebral palsy who over the past month has had intermittent fevers, Levaquin resistant culture positive Pseudomonas, and difficulty with cough the last 24 hours with desaturation 87% Acute on chronic hypoxic respiratory failure.? tracheitis versus bronchiectasis exacerbation, sputum culture with pseudomonis sensitive to cipro, per pulmonary recommendation will use Cf type doses 750mg tid to compelte 14 days and start inhaled tobramycin until follow up with pulmonary medicine Procalcitonin is normal BioFire is negative Patient appears to be more comfortable and mother is comfortable taking the patient home on antibiotics via PEG tube with follow-up with pulmonary medicine Patient started on meropenem meropenem typically can lower her valproic acid level , level low on 09/28, given iv dose and will have elevated dose until 10/03, will have outpt level checked and sent to Dr Modi, is also on adjunctive antiepileptic and her seizure disorder is typically not difficult to control according to mother Depression with anxiety Continue home fluoxetine/trazodone Diet: Meds and feedings through PEG tube. Nutrition consulted CODE STATUS: Conditional code. Okay to maintain a trach/airway, do not perform resuscitation/CPR in the event of cardiac arrest (2) Seizure disorder: (3) Chronic respiratory failure with hypoxia and hypercapnia: Total Time Total Time Spent Total Time Spent (In Minutes): It required greater than 30 minutes to prepare this patient for discharge Discharge Plan Discharge Items Patient Disposition: Home - Home Health Services Reason For Visit: AHRF, BLOODY SECRETIONS Discharge Diagnosis: tracheitis pseudomonas infection low depakoe level Activity: Resume your previous activity Non-emergency contact: Primary Care Provider and Specialist Call non-emergency contact if: your symptoms worsen Follow-up/Referrals: Janet Pearce MD [Primary Care Provider] - Diet: Other - See Diet Comment Diet Comment: resume home tube feeds Ambulatory Orders: Valproic Acid (Routine) Timeframe: 4 Days Location: Determined by Patient Ordered By: Randy Tran Attending Provider Instructions: continue cipro treatment for additional 12 days please restart your tobramycin inhaled medicine and have a follow up with your pulmonary medicine team, this can even be a tele health visit please increase your valproic acid to to 15ml three times a day for 750 mg for 5 days thru october 02, and have a level checked on october 01 and with levels to Dr Modi please consider more frequent suctioning until secretions reduce Pending Studies at Discharge: Yes Studies:: blood cultures will continue to be eval for up to 5 days, you will be called if antibiotics need to be changed Stand-Alone Forms: My [facility] [employer], Smoking Cessation Medications and DC Order Prescriptions: New ciprofloxacin HCl 750 mg tablet 750 mg feeding tube Q8H Qty: 36 0RF Rx Instructions: crush please Continued ibuprofen 100 mg/5 mL suspension See Rx Instructions PO Q6H PRN (Reason: fever or pain) Qty: 473 5RF Dose Instruction: 10-20mL PO Q6H PRN; Rx Instructions: 10-20mL PO Q6H PRN; acetaminophen 160 mg/5 mL liquid 640 mg PO Q6H PRN (Reason: fever or pain) Qty: 473 5RF (DME) disposable gloves [facility] See Rx Instructions .ROUTE .MEDSUPPLY Qty: 100 0RF Rx Instructions: As directed G80.9 (DME) incontinence pad, liner, disp Pad See Rx Instructions .ROUTE .MEDSUPPLY Qty: 20 0RF Rx Instructions: As directed G80.9 (DME) Miscellaneous Medical Supply (Hospital Bed) See Rx Instructions .Route .MEDSUPPLY Qty: 1 0RF Rx Instructions: 1 set; replacement pads for side rails on hospital bed (DME) nebulizers Mis See Rx Instructions .Route Qty: 1 0RF Rx Instructions: Nebulizer and nebulizer supplies Hers is broken beyond repair (DME) incontinence pad, liner, disp Pad See Rx Instructions .ROUTE .MEDSUPPLY Qty: 75 11RF Rx Instructions: 20 under pads and 75 liners miscellaneous medical supply [facility] 1 ea miscellaneous ONCE Qty: 180 11RF Rx Instructions: ADULT LARGE INCONTINENT PANTS QTY 180 (DME) [place] Tracheostomy Care Tray Mis See Rx Instructions .Route Qty: 30 5RF Rx Instructions: Trach cleaning kit cetirizine 10 mg tablet 10 mg feeding tube QAM Qty: 90 3RF trazodone 50 mg tablet 50 mg feeding tube HS Qty: 90 3RF polyethylene glycol 3350 17 gram/dose powder See Rx Instructions .ROUTE .COMPLEX Qty: 1530 3RF Dose Instruction: take 17GM (DISSOLVED IN WATER) by mouth once daily VIA FEEDING TUBE Rx Instructions: take 17GM (DISSOLVED IN WATER) by mouth once daily VIA FEEDING TUBE (DME) Miscellaneous Pulmonary Supply [facility] See Rx Instructions .Route Qty: 1 0RF Rx Instructions: Replace current pulse oximeter clonazepam 0.5 mg tablet,disintegrating 0.5 mg feeding tube DIRECTED PRN (Reason: PROLONGED SEIZURES) Qty: 30 5RF Rx Instructions: take 1 to 2 tablets by mouth daily, for prolonged seizures (DME) Day and Night Brief, Large Misc See Rx Instructions .ROUTE .MEDSUPPLY Qty: 180 11RF Rx Instructions: girls get changed 6-8 x daily albuterol sulfate 2.5 mg /3 mL (0.083 %) solution for nebulization 2.5 mg inhalation Q4H PRN (Reason: Wheezing/ shortness of breath) Qty: 540 5RF acetylcysteine 200 mg/mL (20 %) solution 3 ml inhalation BID Qty: 100 5RF budesonide 0.5 mg/2 mL suspension for nebulization 0.5 mg inhalation BID Qty: 120 11RF miscellaneous medical supply [facility] 1 ea miscellaneous ONCE Qty: 1 0RF Rx Instructions: CORRUGATED TUBING FOR TRACH COLLAR 100 FT. miscellaneous medical supply [facility] 1 ea miscellaneous ONCE Qty: 1 0RF Rx Instructions: HME (HEAT MOISTURE EXCHANGERS) QTY: 30 baclofen 20 mg tablet 20 mg feeding tube TID 30 Days Qty: 90 11RF valproic acid (as sodium salt) 250 mg/5 mL solution 550 mg feeding tube TID 30 Days Qty: 990 11RF zonisamide 100 mg capsule 200 mg feeding tube .COMPLEX 30 Days Qty: 90 11RF Rx Instructions: 200 mg feeding tube TAKE 2 CAPS EVERY MORNING AND 1 CAP AT BEDTIME; fluoxetine 20 mg tablet 20 mg feeding tube QDL Qty: 30 11RF Boost 0.04 gram- 1 kcal/mL Liquid 1.5 ea PO QID@07,1130,15,19 Rx Instructions: 350mL via PEG tube at 400mL/hr at 0700, 1130, 1500, 1900 water Liquid 120 ea PO QID@07,1130,15,19 Rx Instructions: 120mL water flush via PEG before and after each bolus tube feed Xtracal Plus 14 gram-230 kcal/45 mL liquid in packet 1 ea feeding tube DAILY@1100 sodium chloride 7 % solution for nebulization 4 ml inhalation BID PRN (Reason: Other) tobramycin with nebulizer 300 mg/5 mL solution for nebulization 300 mg inhalation DIRECTED Rx Instructions: Uses 28 days on and 28 off (currently in the off cycle 09/26/22). Discontinued nitrofurantoin macrocrystal 50 mg capsule 50 mg feeding tube QAM Qty: 90 3RF Discharge Orders: Discharge Order (Routine); Ordered 09/28/22 Ordered By: Randy Morin Admission Data Admit Date/Time: 09/26/22 13:21 Attending Provider: Randy Morin Admit Provider: Ray Bocanegra Primary Care Provider: Janet Pearce Other Providers: Ray Bocanegra ; Jose Li Other Interventions: Discharge Summary Assessment (RN) Last Done: 09/28/22 11:31 Coding Level of Care Code 12600 INP/OBS DISCH >30 MIN Diagnoses Acute respiratory failure with hypoxia J96.01 Seizure disorder G40.909 Chronic respiratory failure with hypoxia and hypercapnia J96.11; J96.12
[2022-09-28] MEDS ORDERED: TOBRAMYCIN SULFATE VIAL INH SCH (19:00)
[2022-09-29 13:28] LABS: Anti Nuclear Antibody Screen NEGATIVE (NEGATIVE)
== END 2022-09-28 12:48 | disposition home health service (06) | DRG 871 ==
LOC: ED 08:33 → 1E 13:21 → SUATTDRO 13:21 → 1E 14:03

== ENCOUNTER 2022-10-08 08:51 | Inpatient (IN) ==
--- NOTE | 2022-10-08 09:37 | Emergency Department Note ---
Impression & Plan Sepsis, Seizure disorder, Quadriplegic cerebral palsy ED Provider Note NAME: JOHN GARRIDO AGE: 27 SEX: F : 1995 ARRIVES VIA: Ambulance INFORMANT: Patient, ED PROVIDER(S): Bret Stephenson MD CHIEF COMPLAINT: Possible pain, cough, unable to tolerate home ventilator MEDICAL DECISION MAKING: Patient presents due to concern for possible pain and is presenting as she is unable to give a history given her prior history of quadriplegia and cerebral palsy. IV was established blood was obtained and sepsis protocols initiated and patient was treated with empiric Zosyn. Albuterol Mucomyst nebulizers administered. Patient was given 1500 IV fluids. Blood work does show a white count of 24 with a normal H&H and platelet count. The patient's kidney function is unremarkable. The patient does have hyponatremia noted at 131. Patient's lactate is normal. Troponin is not elevated. Pro-Deonte not elevated. Urinalysis does show ketones consistent with dehydration. Depakote level slightly elevated at 110. Bio fire pending. Chest x-ray does show possibility of vascular congestion and could have associated atelectasis versus pneumonia. No evidence of bowel obstruction. Given the patient's history and physical exam believe infectious etiology to be likely. I did speak the on-call hospitalist service Dr. Morin and the patient will be admitted to the ICU given the patient's tracheostomy and ventilator needs. The patient did not receive full 30 cc/kg bolus although this was just under as the patient is 55 kg. She was given the initial 1500 and not more due to concerns for possibility of vascular congestion. Prior /Outside records reviewed: I reviewed a discharge summary from Dr. Morin dated September 28, 2022. Patient had presented with acute respiratory failure secondary to hypoxia. The patient does have a known history of seizure disorder chronic respiratory failure with hypoxia and hypercapnia chronic mucous plugging Pseudomonas infection and sepsis trach and ventilator use secondary to CP quadriplegia. Differential diagnosis: Sepsis, UTI, pneumonia, metabolic, electrolyte abnormalities, cardiac sources, intracerebral event, toxicologic, neurologic, as well as other pathologies. Diagnostics, as interpreted by me: ECG: Sinus tachycardia, rate of 134, normal RI and QRS, normal axis no ST elevations. Cardiac monitoring: An order was placed for continuous cardiac monitoring. The monitor shows a rate of 135 with tachycardic and rate rhythm. Patient was placed on pulse oximetry Medical decision rules: Curb 65 score Imaging studies: See below I informally reviewed the patient's chest and abdominal x-rays. Patient does show patchiness throughout the lungs. Gas noted within the colon. HPI: Patient presents with primary nurse from home due to concerns for possibility of pain. The patient's nurse relates that she had similar symptoms prior to recent admission and did require admission for a tracheitis. She states that currently there is no significant and virtually no sputum production from her trach but she did not tolerate her trach last evening. Patient r eportedly does receive multiple nebs and is on a ventilator at nighttime. Her sats were poor last evening. No reported falls or trauma. She does have a G- tube and is tolerating meds as well as feeds. She did not receive her medications this morning. No reported falls or trauma. Temperature 101 at home. PAST MEDICAL HISTORY: See Below PAST SURGICAL HISTORY: See Below SOCIAL HISTORY: See Below HOME MEDICATIONS: See Below ALLERGIES: See Below VITALS: See Below PHYSICAL EXAMINATION: GENERAL: Mild distress, trach in place EYE EXAM: Normal conjunctiva. PERRL, no anisocoria and EOM's grossly intact w/o pain. OROPHARYNX: Moist mucus membranes, grossly normal dentition. NECK: Supple, no nuchal rigidity, no adenopathy, non-tender. No signs of meningismus. FROM of the neck with good chin to chest and neck extension. No stridor. LUNGS: Coarse sounds throughout HEART: Tachycardic and regular, no MRG. ABDOMEN: Abdomen soft, G-tube in place. No overlying skin changes. No masses, no rebound or guarding. BACK: No CVA TTP. SKIN: No rashes and no bruising. UPPER EXTREMITIES: Spasticity noted bilaterally. LOWER EXTREMITIES: Spasticity noted bilaterally. NEURO EXAM: Awake and alert does not follow commands. 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 Seizure disorder Sepsis Thrombocytopenia Thrombocytopenia Transaminitis Surgical History History of tracheostomy #6 [place] 09/10/2020 S/P percutaneous endoscopic gastrostomy (PEG) tube placement Family History Brother Asthma Other Coronary heart disease Family history non-contributory Hypertension Social History Smoking Status: Never smoker Second Hand Exposure: No; Do You Dip or Chew Tobacco: No; Hx Alcohol Use: No Hx Substance Use: No Preferred Language: Tamazight Communication Ability: Impaired Communication Ability Comment: Pt is non-verbal at baseline [employer] Required: No Beliefs That Will Affect Care: None marital status: Single Current Living Situation: Family Current Living Situation Comment: parent Feels Safe at Home: Yes Assistive Devices: Wheelchair Allergies Allergies Allergy/AdvReac Type Severity Reaction Status Date / Time No Known Allergies Allergy Verified 03/21/22 10:15 Home Meds Home Medications Medication Instructions Recorded Confirmed food supplemt, lactose-reduced 1.5 ea PO QID@07,1130,,19 07/28/18 10/08/22 0.04 gram-1 kcal/mL oral liquid (Boost) water 120 ea PO QID@07,1130,,07/28/18 10/08/22 nut.tx.,elemental,bxmietm-dbbv-cbx 1 ea feeding tube DAILY@1100 08/04/20 10/08/22 14 gram-230 kcal/45 mL liquid pkt (Xtracal Plus) sodium chloride 7 % for 4 ml inhalation BID PRN Other 09/26/22 10/08/22 nebulization tobramycin with nebulizer 300 mg/5 300 mg inhalation DIRECTED 09/26/22 10/08/22 mL solution for nebulization albuterol sulfate 2.5 mg/3 mL See Rx Instructions .Route .COMPLEX 10/08/22 10/08/22 (0.083 %) solution for nebulization valproic acid (as sodium salt) 250 550 mg feeding tube TID 10/08/22 10/08/22 mg/5 mL oral solution Previous Rx's Medication Instructions Recorded acetaminophen 160 mg/5 mL oral 640 mg (20 mL) PO Q6H PRN fever or 12/21/18 liquid pain #473 mL ibuprofen 100 mg/5 mL oral See Rx Instructions PO Q6H PRN 12/21/18 suspension fever or pain #473 mL disposable gloves #100 ea 05/12/19 incontinence pad, liner, disp #20 ea 05/12/19 Miscellaneous Medical Supply #1 ea 02/22/20 (Hospital Bed) nebulizers #1 ea 11/01/20 miscellaneous medical supply 1 ea miscellaneous ONCE #1 ea 12/06/20 miscellaneous medical supply 1 ea miscellaneous ONCE #1 ea 12/06/20 incontinence pad, liner, disp #75 ea 01/03/21 miscellaneous medical supply 1 ea miscellaneous ONCE #180 ea 01/03/21 miscellaneous medical supply #30 ea 01/31/21 ([place] [facility]) cetirizine 10 mg tablet 10 mg feeding tube QAM #90 tabs 11/29/21 polyethylene glycol 3350 17 See Rx Instructions .Route 11/29/21 gram/dose oral powder .COMPLEX #1,530 grams trazodone 50 mg tablet 50 mg feeding tube HS #90 tabs 11/29/21 Miscellaneous Pulmonary Supply #1 ea 12/23/21 clonazepam 0.5 mg disintegrating 0.5 mg feeding tube DIRECTED 01/06/22 tablet PRN PROLONGED SEIZURES #30 tabs diaper,brief,adult,disposable (Day #180 ea 03/25/22 and Night Brief, Large) albuterol sulfate 2.5 mg/3 mL 2.5 mg (3 mL) inhalation Q4H PRN 04/30/22 (0.083 %) solution for nebulization Wheezing/ shortness of breath #540 mL acetylcysteine 200 mg/mL (20 %) 3 ml inhalation BID #100 mL 06/12/22 solution baclofen 20 mg tablet 20 mg feeding tube TID 30 days #90 08/13/22 tabs fluoxetine 20 mg tablet 20 mg feeding tube QDL #30 tabs 08/13/22 zonisamide 100 mg capsule 200 mg feeding tube .COMPLEX 30 08/13/22 days #90 caps budesonide 0.5 mg/2 mL suspension 0.5 mg (2 mL) inhalation BID #120 08/18/22 for nebulization mL ciprofloxacin HCl 750 mg tablet 750 mg feeding tube Q8H #36 tabs 09/28/22 Results & Data (ED) Vital Signs Vital Signs - 24 hr 10/08/22 09:05 10/08/22 09:17 10/08/22 09:24 Temperature 36.6 C Temperature Source Oral Pulse Rate 130 H 133 H Pulse Rate [Apical] 132 H Respiratory Rate 16 16 Respiratory Effort / Characteristics Respiratory Depth Normal Blood Pressure 140/85 Blood Pressure Mean 103 Pulse Oximetry 92 Oxygen Delivery Method Trach Collar Oxygen Flow Rate 6 Fraction of Inspired Oxygen SaO2/FiO2 Ratio Sepsis Recent Fever Within 48 Hours No Sepsis New/Unexplained Change in Mental Status No Sepsis Action Taken by Nursing No Action Required 10/08/22 10:23 10/08/22 10:23 10/08/22 10:53 Temperature Temperature Source Pulse Rate Pulse Rate [Apical] 129 H 130 H Respiratory Rate 16 22 Respiratory Effort / Characteristics Non-Labored Spontaneous Respiratory Depth Blood Pressure Blood Pressure Mean Pulse Oximetry 93 94 96 Oxygen Delivery Method Trach Collar Trach Collar Trach Collar Oxygen Flow Rate 6 6 10 Fraction of Inspired Oxygen 35 SaO2/FiO2 Ratio Sepsis Recent Fever Within 48 Hours Sepsis New/Unexplained Change in Mental Status Sepsis Action Taken by Nursing 10/08/22 11:02 10/08/22 11:33 Temperature Temperature Source Pulse Rate Pulse Rate [Apical] 122 H 119 H Respiratory Rate 16 16 Respiratory Effort / Characteristics Respiratory Depth Blood Pressure Blood Pressure Mean Pulse Oximetry 95 95 Oxygen Delivery Method Trach Collar Trach Collar Oxygen Flow Rate 6 10 Fraction of Inspired Oxygen 35 SaO2/FiO2 Ratio 271 Sepsis Recent Fever Within 48 Hours Sepsis New/Unexplained Change in Mental Status Sepsis Action Taken by [facility] Medications Current Medication List: was personally reviewed by me Laboratory Data Attestation: I reviewed the patient's lab results. 10/08/22 10:05 10/08/22 14:25 Lab Results 10/08/22 10/08/22 10/08/22 Range/Units 10:05 10:05 10:05 WBC 24.94 H (4.8-10.8) K/ul RBC 3.94 L (4.20-5.40) M/uL Hgb 13.3 (12.0-16.0) g/dl Hct 38.7 (37.0-47.0) % MCV 98.2 (80.0-100.0) fL MCH 33.8 (25.0-34.0) pg MCHC 34.4 (32.0-36.0) g/dL RDW Std Deviation 43.9 (36.4-46.3) fL RDW Coeff of Flaquito 12.2 (11.5-14.5) % Plt Count 341 (130-400) K/uL MPV 8.6 L (9.4-12.4) fL Immature Gran % (Auto) 0.6 % Neut % (Auto) 88.3 % Lymph % (Auto) 3.8 % Vil[place] % (Auto) 7.2 % Eos % (Auto) 0.0 % Baso % (Auto) 0.1 % Neut # (Auto) 22.03 H (1.40-6.50) K/uL Lymph # (Auto) 0.94 L (1.2-3.4) K/uL [place] # (Auto) 1.79 H (0.11-0.59) K/uL Eos # (Auto) 0.00 (0-0.50) K/uL Baso # (Auto) 0.03 (0-0.2) K/uL Immature Gran # (Auto) 0.15 (0.01-0.20) K/uL Polychromasia 1+ VBG pH (7.36-7.41) VBG pCO2 (38-50) mmHg VBG pO2 mmHg VBG HCO3 mmol/L VBG O2 Saturation % VBG Base Excess mEq/L Sodium 131 L (136-145) mmol/L Potassium 4.6 (3.5-5.1) mmol/L Chloride 99 (98-107) mmol/L Carbon Dioxide 20 L (21-32) mmol/L Anion Gap 12 H (3-11) BUN 15 (6-23) mg/dl Creatinine 0.38 L (0.6-1.2) mg/dl Est Cr Clr Drug Dosing Not Reportable Est GFR ( Amer) > 150.0 ml/min Est GFR (Non-Af Amer) 146.2 ml/min BUN/Creatinine Ratio 39.5 H (10-20) Glucose 90 (70-99(Fasting)) mg/dl Lactate (0.4-2.0) mmol/L Calcium 9.5 (8.6-10.3) mg/dl Magnesium 2.0 (1.7-2.4) mg/dl Total Bilirubin 0.5 (0.2-1.0) mg/dl Direct Bilirubin 0.1 (0-0.2) mg/dl AST 19 (13-39) U/L ALT 9 (7-52) U/L Alkaline Phosphatase 82 (34-104) U/L Troponin I High Sens 9.2 (0-14) pg/ml Total Protein 7.8 (6.0-8.3) gm/dl Albumin 4.1 (3.4-5.0) gm/dl Procalcitonin < 0.05 (0-0.5) ng/ml Valproic Acid (50-100) mcg/ml 10/08/22 10/08/22 10/08/22 Range/Units 10:05 10:24 10:24 WBC (4.8-10.8) K/ul RBC (4.20-5.40) M/uL Hgb (12.0-16.0) g/dl Hct (37.0-47.0) % MCV (80.0-100.0) fL MCH (25.0-34.0) pg MCHC (32.0-36.0) g/dL RDW Std Deviation (36.4-46.3) fL RDW Coeff of Flaquito (11.5-14.5) % Plt Count (130-400) K/uL MPV (9.4-12.4) fL Immature Gran % (Auto) % Neut % (Auto) % Lymph % (Auto) % [place] % (Auto) % Eos % (Auto) % Baso % (Auto) % Neut # (Auto) (1.40-6.50) K/uL Lymph # (Auto) (1.2-3.4) K/uL [place] # (Auto) (0.11-0.59) K/uL Eos # (Auto) (0-0.50) K/uL Baso # (Auto) (0-0.2) K/uL Immature Gran # (Auto) (0.01-0.20) K/uL Polychromasia VBG pH 7.41 (7.36-7.41) VBG pCO2 35 L (38-50) mmHg VBG pO2 44 mmHg VBG HCO3 22 mmol/L VBG O2 Saturation 74.3 % VBG Base Excess -1.9 mEq/L Sodium (136-145) mmol/L Potassium (3.5-5.1) mmol/L Chloride (98-107) mmol/L Carbon Dioxide (21-32) mmol/L Anion Gap (3-11) BUN (6-23) mg/dl Creatinine (0.6-1.2) mg/dl Est Cr Clr Drug Dosing Est GFR ( Amer) ml/min Est GFR (Non-Af Amer) ml/min BUN/Creatinine Ratio (10-20) Glucose (70-99(Fasting)) mg/dl Lactate 1.6 (0.4-2.0) mmol/L Calcium (8.6-10.3) mg/dl Magnesium (1.7-2.4) mg/dl Total Bilirubin (0.2-1.0) mg/dl Direct Bilirubin (0-0.2) mg/dl AST (13-39) U/L ALT (7-52) U/L Alkaline Phosphatase (34-104) U/L Troponin I High Sens (0-14) pg/ml Total Protein (6.0-8.3) gm/dl Albumin (3.4-5.0) gm/dl Procalcitonin (0-0.5) ng/ml Valproic Acid 110 H (50-100) mcg/ml Administered Medications Albuterol (Albuterol 0.083% Nebu Soln 3 Ml Vial) 0 mg NEB QIDR KENNEDY; Protocol Stop: 11/07/22 14:59 Last Admin: 10/08/22 15:20 Dose: 2.5 mg Documented By: [id number] Miscellaneous (Icu Protocol For Hyperglycemia) 1 each N/A ACHS [facility] Stop: 10/10/22 16:29 Last Admin: 10/08/22 16:09 Dose: Not Given Documented By: JONATHAN Morphine Sulfate (Morphine Sulfate 2 Mg/Ml Carp) 2 mg IV Q4 PRN PRN Reason: Moderate Pain (Scale 4, 5, 6) Stop: 10/22/22 13:50 Last Admin: 10/08/22 14:04 Dose: 2 mg Documented By: TAWNY Polyethylene Glycol (Polyethylene (Miralax) 17 Gm Pack) 0 gm PEG DAILY [facility] Stop: 11/07/22 14:29 Last Admin: 10/08/22 16:03 Dose: Not Given Documented By: JONATHAN Sterile Water (Tube Feeding Water Flush) 120 ml PO QID@07,1130,15,19 KENNEDY Stop: 11/07/22 14:59 Last Admin: 10/08/22 16:02 Dose: Not Given Documented By: JONATHAN Discontinued Medications Acetylcysteine (Acetylcysteine 20% Inhal Soln 30ml) 3 ml INH ONE ONE Stop: 10/08/22 09:57 Last Admin: 10/08/22 10:43 Dose: 3 ml Documented By: NAYELI Albuterol (Albuterol 0.083% Nebu Soln 3 Ml Vial) 2.5 mg NEB NOW STA; Protocol Stop: 10/08/22 09:54 Last Admin: 10/08/22 10:44 Dose: 2.5 mg Documented By: NAYELI Fentanyl Citrate (Fentanyl Citrate Pf 100 Mcg/2 Ml Vial) 50 mcg IV NOW STA Stop: 10/08/22 14:29 Last Admin: 10/08/22 16:08 Dose: 100 mcg Documented By: JONATHAN Fentanyl Citrate (Fentanyl Citrate Pf 100 Mcg/2 Ml Vial) Confirm Administered Dose 100 mcg .ROUTE .STK-MED ONE Stop: 10/08/22 14:33 Last Admin: 10/08/22 16:00 Dose: Not Given Documented By: JONATHAN Sodium Chloride (Nss 1000ml) 500 mls @ 999 mls/hr IV .Q31M KENNEDY Stop: 10/08/22 10:30 Last Infusion: 10/08/22 11:08 Dose: 0 mls/hr Documented By: Admin: 10/08/22 10:34 Dose: 999 mls/hr Documented By: RITA Sodium Chloride (Nss 1000ml) 1,000 mls @ 999 mls/hr IV .Q1H1M KENNEDY Stop: 10/08/22 11:00 Last Infusion: 10/08/22 11:08 Dose: 0 mls/hr Documented By: Admin: 10/08/22 10:34 Dose: 999 mls/hr Documented By: RITA Piperacillin Sod/Tazobactam Sod (Zosyn) 4.5 gm in 120 mls @ 240 mls/hr IV NOW ONE Stop: 10/08/22 10:25 Last Infusion: 10/08/22 11:08 Dose: 0 mls/hr Documented By: Admin: 10/08/22 10:34 Dose: 240 mls/hr Documented By: RITA Ketorolac Tromethamine (Ketorolac Tromethamine 15 Mg/Ml Vial) 10 mg IV NOW ONE Stop: 10/08/22 09:54 Last Admin: 10/08/22 10:34 Dose: 10 mg Documented By: RITA Midazolam HCl (Midazolam Hcl 1 Mg/Ml 2ml Vial) 1 mg IV NOW STA Stop: 10/08/22 14:29 Last Admin: 10/08/22 16:07 Dose: 2 mg Documented By: JONATHAN Midazolam HCl (Midazolam Hcl 1 Mg/Ml 2ml Vial) Confirm Administered Dose 2 mg .ROUTE .STK-MED ONE Stop: 10/08/22 14:33 Last Admin: 10/08/22 16:01 Dose: Not Given Documented By: JONATHAN Imaging Data Radiologist's Impression: Chest/Abdomen X-ray 10/08/22 10:00 CHEST AND ABDOMEN 2 VIEWS HISTORY: Abdominal pain.. COMPARISON: Chest CTA 09/26/2022.. FINDINGS: There are low lung volumes. No pneumothorax. Tracheostomy tube remains in good position. The cardiac silhouette remains enlarged. There are persistent bibasilar densities, left greater than right. There is mild perihilar interstitial/vascular thickening suggestive of mild congestive change. No pneumoperitoneum. No pneumatosis. A gastrostomy tube is seen within the left upper quadrant. No dilated loops of bowel to suggest an obstruction. No renal or ureteral calculi. Moderate well-formed stool seen within the distal colon/rectum. IMPRESSION: 1. Cardiomegaly with mild pulmonary vascular congestion. This has progressed in the interval. 2. Bibasilar densities persist. This could represent atelectasis or pneumonia. 3. No evidence for a bowel obstruction. 4. Moderate well-formed stool seen within the distal colon/rectum. 4. A tracheostomy tube is in good position. ACT 112: Negative or not required by law. Electronically signed by: Edmund Dorman M.D. 10/08/2022 11:33 AM Discharge Plan Visit Data Chief Complaint: Pain (Generalized) ED Provider: Bret Stephenson Discharge Problem: Sepsis, Seizure disorder, Quadriplegic cerebral palsy Patient Disposition: Admitted As Inpatient Discharge Instructions Interventions: ED Discharge Assessment Last Done: 10/08/22 13:09
[2022-10-08] MEDS ORDERED: KETOROLAC TROMETHAMINE 15 MG/ML VIAL IV ONE (09:53)
[2022-10-08] MEDS ORDERED: ALBUTEROL 0.083% NEBU SOLN 3 ML VIAL NEB STA (09:53)
[2022-10-08] MEDS ORDERED: ACETYLCYSTEINE 20% INHAL SOLN 30ML INH ONE (09:56)
[2022-10-08] MEDS ORDERED: PIPERACILLIN/TAZOBACTAM 4.5 GM/120 ML BAG IV ONE (09:56)
[2022-10-08] MEDS ORDERED: SODIUM CHLORIDE 0.9% 1000ML 1,000 ML IV SCH (10:00)
[2022-10-08] MEDS ORDERED: SODIUM CHLORIDE 0.9% 1000ML 500 ML IV SCH (10:00)
[2022-10-08 10:31] LABS: Hematocrit (blood only) 38.7 % (37.0-47.0); Hemoglobin 13.3 g/dl (12.0-16.0); Mean Corpuscular Hemoglobin 33.8 pg (25.0-34.0); Mean Corpuscular Hgb Conc 34.4 g/dL (32.0-36.0); Mean Corpuscular Volume 98.2 fL (80.0-100.0); Mean Platelet Volume 8.6 fL (9.4-12.4); Platelet Count 341 K/uL (130-400); RDW Coefficient of Variation 12.2 % (11.5-14.5); RDW Standard Deviation 43.9 fL (36.4-46.3); Red Blood Count 3.94 M/uL (4.20-5.40); White Blood Count 24.94 K/ul (4.8-10.8)
[2022-10-08 10:44] LABS: Base Excess VBG -1.9 mEq/L; HCO3 VBG 22 mmol/L; Oxygen Saturation VBG 74.3 %; PCO2 VBG 35 mmHg (38-50); PO2 VBG 44 mmHg; pH VBG 7.41 (7.36-7.41)
[2022-10-08 10:54] LABS: Basophils # (auto) 0.03 K/uL (0-0.2); Basophils % (auto) 0.1 %; Immature Granulocytes # (auto) 0.15 K/uL (0.01-0.20); Immature Granulocytes % (auto) 0.6 %; Lymphocytes # (auto) 0.94 K/uL (1.2-3.4); Lymphocytes % (auto) 3.8 %; Monocytes # (auto) 1.79 K/uL (0.11-0.59); Monocytes % (auto) 7.2 %; Neutrophils # (auto) 22.03 K/uL (1.40-6.50); Neutrophils % (auto) 88.3 %; Polychromasia 1+
[2022-10-08 11:11] LABS: Alanine Aminotransferase 9 U/L (7-52); Albumin Level 4.1 gm/dl (3.4-5.0); Alkaline Phosphatase 82 U/L (34-104); Anion Gap 12 (3-11); Aspartate Aminotransferase 19 U/L (13-39); BUN Creatinine Ratio 39.5 (10-20); Bilirubin Direct 0.1 mg/dl (0-0.2); Bilirubin,Total 0.5 mg/dl (0.2-1.0); Blood Urea Nitrogen 15 mg/dl (6-23); Calcium 9.5 mg/dl (8.6-10.3); Carbon Dioxide 20 mmol/L (21-32); Chloride 99 mmol/L (98-107); Est GFR (African American) > 150.0 ml/min; Est GFR (Non-African American) 146.2 ml/min; Glucose 90 mg/dl (70-99(Fasting)); Potassium 4.6 mmol/L (3.5-5.1); Sodium 131 mmol/L (136-145); Total Protein 7.8 gm/dl (6.0-8.3)
[2022-10-08 11:17] LABS: Troponin I High Sensitivity 9.2 pg/ml (0-14)
--- NOTE | 2022-10-08 11:34 | XRay Report ---
CHEST AND ABDOMEN 2 VIEWS HISTORY: Abdominal pain.. COMPARISON: Chest CTA 09/26/2022.. FINDINGS: There are low lung volumes. No pneumothorax. Tracheostomy tube remains in good position. Th e cardiac silhouette remains enlarged. There are persistent bibasilar densities, left greater than ri ght. There is mild perihilar interstitial/vascular thickening suggestive of mild congestive change. N o pneumoperitoneum. No pneumatosis. A gastrostomy tube is seen within the left upper quadrant. No dil ated loops of bowel to suggest an obstruction. No renal or ureteral calculi. Moderate well-formed sto ol seen within the distal colon/rectum. IMPRESSION: 1. Cardiomegaly with mild pulmonary vascular congestion. This has progressed in the interval. 2. Bibasilar densities persist. This could represent atelectasis or pneumonia. 3. No evidence for a bowel obstruction. 4. Moderate well-formed stool seen within the distal colon/rectum. 4. A tracheostomy tube is in good position. ACT 112: Negative or not required by law. Electronically signed by: Edmund Dorman M.D. 10/08/2022 11:33 AM
--- NOTE | 2022-10-08 12:44 | History & Physical Report ---
Date of Service October 08, 2022 Assessment & Plan (1) Acute respiratory failure with hypoxia: Plan: Patient with chronic ventilator use at night trach collar during the day did not tolerate ventilator overnight from the 15 to the 16th reportedly with hypoxia at home. Previously Pseudomonas tracheitis. On home ciprofloxacin and inhaled tobramycin Concern for sepsis on presentation with leukocytosis tachycardia and hypotension Blood cultures obtained volume resuscitation administered Given her nontolerant of her nighttime ventilator will place in the ICU with ICU consultation. I personally spoke to the ICU provider who wishes to not institute any new antibiotics other than the tobramycin nebulized medications in lieu of possibility of doing a bronchoscopy. We will continue her typical pulmonary support with albuterol nebulizer scheduled and as needed Mucomyst scheduled Pulmicort plus nebulized tobramycin. Patient does use a chest vest and CoughAssist at home We will hold on pulmonary consultation and lieu of ICU consultation unless required otherwise (2) Quadriplegic cerebral palsy: Plan: Pt typically with trache and peg tube support bowel regimen with daily miralax family will bring in home ventilator and pt typically uses cough assist and chest vest twice a day (3) Seizure disorder: Plan: valproic acid level is slightly elevated, last admission due to meropenem did have elevation of dose for a time, level is 110( high normal is 100)will reduce dose to 500 from 550 (4) Allergic rhinitis: Plan: continue claritan Plan Pt is mildly hyponatremic, will follow, check urine sodium and serum osm, if persistent can reduce free water flushes pt is a conditional code History of Present Illness Primary Care Provider: Janet Pearce MD 27 F with history of Cerebal Palsy, chronic tracheostomy and vented at night, who was discharged from [facility] 09/28 with tracheitis, sputum culture with pseudomonas species, treated with high dose Cipro 750mg tid, and during the stay was restarted on Tobramycin Nebs, these are typically month on month off and are continued at home. The pt was doing well up until 36 hours ago when she declined in regard to appearing uncomfortable, did not tolerate ventilator at night, and had hypocia at night, did have a trache change at home without much change in quantity or quality of mucus. The pt appears uncomfortable, Grimacing, restless, has coarse respirations but non productive. Her personal nurse is present at bedside, she provided this history, and noted no other changes in urine, stool and the pt typically is without menses Allergies Allergy/AdvReac Type Severity Reaction Status Date / Time No Known Allergies Allergy Verified 03/21/22 10:15 Home Medications Medication Instructions Recorded Confirmed Type food supplemt, lactose-reduced 1.5 ea PO QID@07,1130,15,19 07/28/18 10/08/22 History 0.04 gram-1 kcal/mL oral liquid (Boost) water 120 ea PO QID@07,1130,,07/28/18 10/08/22 History acetaminophen 160 mg/5 mL oral 640 mg (20 mL) PO Q6H PRN fever or 12/21/18 10/08/22 Rx liquid pain #473 mL ibuprofen 100 mg/5 mL oral See Rx Instructions PO Q6H PRN 12/21/18 10/08/22 Rx suspension fever or pain #473 mL disposable gloves #100 ea 05/12/19 03/21/22 Rx incontinence pad, liner, disp #20 ea 05/12/19 03/21/22 Rx Miscellaneous Medical Supply #1 ea 02/22/20 03/21/22 Rx (Hospital Bed) nut.tx.,elemental,cvbqewu-[id number]-hjk 1 ea feeding tube DAILY@1100 08/04/20 10/08/22 History 14 gram-230 kcal/45 mL liquid pkt (Xtracal Plus) nebulizers #1 ea 11/01/20 03/21/22 Rx miscellaneous medical supply 1 ea miscellaneous ONCE #1 ea 12/06/20 03/21/22 Rx miscellaneous medical supply 1 ea miscellaneous ONCE #1 ea 12/06/20 03/21/22 Rx incontinence pad, liner, disp #75 ea 01/03/21 03/21/22 Rx miscellaneous medical supply 1 ea miscellaneous ONCE #180 ea 01/03/21 03/21/22 Rx miscellaneous medical supply #30 ea 01/31/21 03/21/22 Rx ([facility] Tracheostomy [facility] Tray) cetirizine 10 mg tablet 10 mg feeding tube QAM #90 tabs 11/29/21 10/08/22 Rx polyethylene glycol 3350 17 See Rx Instructions .Route 11/29/21 10/08/22 Rx gram/dose oral powder .COMPLEX #1,530 grams trazodone 50 mg tablet 50 mg feeding tube HS #90 tabs 11/29/21 10/08/22 Rx Miscellaneous Pulmonary Supply #1 ea 12/23/21 03/21/22 Rx clonazepam 0.5 mg disintegrating 0.5 mg feeding tube DIRECTED 01/06/22 10/08/22 Rx tablet PRN PROLONGED SEIZURES #30 tabs diaper,brief,adult,disposable (Day #180 ea 03/25/22 Rx and Night Brief, Large) albuterol sulfate 2.5 mg/3 mL 2.5 mg (3 mL) inhalation Q4H PRN 04/30/22 10/08/22 Rx (0.083 %) solution for nebulization Wheezing/ shortness of breath #540 mL acetylcysteine 200 mg/mL (20 %) 3 ml inhalation BID #100 mL 06/12/22 10/08/22 Rx solution baclofen 20 mg tablet 20 mg feeding tube TID 30 days #90 08/13/22 10/08/22 Rx tabs fluoxetine 20 mg tablet 20 mg feeding tube QDL #30 tabs 08/13/22 10/08/22 Rx zonisamide 100 mg capsule 200 mg feeding tube .COMPLEX 30 08/13/22 10/08/22 Rx days #90 caps budesonide 0.5 mg/2 mL suspension 0.5 mg (2 mL) inhalation BID #120 08/18/22 10/08/22 Rx for nebulization mL sodium chloride 7 % for 4 ml inhalation BID PRN Other 09/26/22 10/08/22 History nebulization tobramycin with nebulizer 300 mg/5 300 mg inhalation DIRECTED 09/26/22 10/08/22 History mL solution for nebulization ciprofloxacin HCl 750 mg tablet 750 mg feeding tube Q8H #36 tabs 09/28/22 10/08/22 Rx albuterol sulfate 2.5 mg/3 mL See Rx Instructions .Route .COMPLEX 10/08/22 10/08/22 History (0.083 %) solution for nebulization valproic acid (as sodium salt) 250 550 mg feeding tube TID 10/08/22 10/08/22 History mg/5 mL oral solution 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 Seizure disorder Sepsis Thrombocytopenia Thrombocytopenia Transaminitis Surgical History History of tracheostomy #6 [place] 09/10/2020 S/P percutaneous endoscopic gastrostomy (PEG) tube placement Family History Brother Asthma Other Coronary heart disease Family history non-contributory Hypertension Social History Smoking Status: Never smoker Second Hand Exposure: No; Do You Dip or Chew Tobacco: No; Hx Alcohol Use: No Hx Substance Use: No Preferred Language: Mohawk Communication Ability: Impaired Communication Ability Comment: Pt is non-verbal at baseline Contract Processor Required: No Beliefs That Will Affect Care: None marital status: Single Current Living Situation: Family Current Living Situation Comment: parent Feels Safe at Home: Yes Assistive Devices: Wheelchair Review of Systems Review of Systems: Unobtainable due to cognitive status Physical Exam Physical Exam: The patient appeared chronically ill, non verbal, come spastic contractures virtals support possible sepsis from pulmonary source poa Head exam is normocephalic atraumatic Neck is with tracheostomy in place, skin is slightly reddened, non tender to exam, no fluctuance or indurtation. Lungs are coarse bilaterally Cardiac exam, Rhythm is tachycardic Abdominal exam reveals normal bowel sounds, soft non tender, no masses Extremities are nonedematous and both pedal pulses are present Neurologic exam is awake, falls asleep easily, spontaneoously moves about bed, seems to be uncomfortable Results & Data Results & Data Vital Signs (Past 12 Hours) Vital Signs Temp Pulse Pulse Resp BP Pulse Ox O2 Del Method 10/08/22 11:33 119 H 16 95 Trach Collar 10/08/22 11:02 122 H 16 95 Trach Collar 10/08/22 10:53 130 H 22 96 Trach Collar 10/08/22 10:23 129 H 16 94 Trach Collar 10/08/22 10:23 93 Trach Collar 10/08/22 09:24 133 H 10/08/22 09:17 132 H 16 10/08/22 09:05 97.9 F 130 H 16 140/85 92 Trach Collar O2 Flow Rate FiO2 10/08/22 11:33 10 35 10/08/22 11:02 6 10/08/22 10:53 10 35 10/08/22 10:23 6 10/08/22 10:23 6 10/08/22 09:24 10/08/22 09:17 10/08/22 09:05 6 Laboratory Results Reviewed CBC reviewed chemistry reviewed elevated valproic acid level ECG Additional Comments: Sinus tachycardia nonspecific T wave changes Code Status & VTE Plan VTE Prophylaxis Plan VTE Prophylaxis will be ordered: Yes PG Care Time/CCT Total # of Minutes Spent Total Time Spent with Patient: Total time spent is greater than 50% in coordination of care (as documented) at patient's floor/unit and/or counseling patient: Coding Level of Care Code 61130 INT INP/OBS CARE 3/75MIN Diagnoses Acute respiratory failure with hypoxia J96.01 Quadriplegic cerebral palsy G80.8 Seizure disorder G40.909 Allergic rhinitis J30.9
[2022-10-08] MEDS ORDERED: SODIUM CHLOR 7% 4 ML NEB INH PRN (13:51)
[2022-10-08] MEDS ORDERED: ALBUTEROL 0.083% NEBU SOLN 3 ML VIAL INH PRN (13:51)
[2022-10-08] MEDS: MoRPHine SULFATE 2 MG/ML CARP IV PRN ×2 (14:04→18:01)
[2022-10-08] MEDS ORDERED: Patient's HEIGHT &/or WEIGHT Needed SCH (14:15)
[2022-10-08] MEDS ORDERED: clonazePAM 0.5 MG TAB PO PRN (14:16)
[2022-10-08] MEDS ORDERED: fentaNYL citrate PF 100 MCG/2 ML VIAL IV STA (14:28)
[2022-10-08] MEDS ORDERED: MIDAZOLAM HCL 1 MG/ML 2ML VIAL IV STA (14:28)
[2022-10-08] MEDS ORDERED: MIDAZOLAM HCL 1 MG/ML 2ML VIAL ONE (14:32)
[2022-10-08] MEDS ORDERED: fentaNYL citrate PF 100 MCG/2 ML VIAL ONE (14:32)
--- NOTE | 2022-10-08 14:57 | Procedure Note ---
Procedure Note Date of Service October 08, 2022 Note Procedure date: October 08, 2022 Procedure: fiberoptic bronchoscopy Pre-procedure indication: Acute on chronic respiratory failure, chronic tracheostomy Post-procedure Diagnosis: same as above Prior to Procedure: Informed Consent: The risks, benefits, indications, potential complications, and alternatives were explained to the the patient's mother and informed consent obtained. Attending Staff: Lavon Tariq DO Resident/APC: Not applicable Skin Prep: Not applicable Anesthesia: 100 mcg fentanyl 2 mg Versed The identity of the patient was confirmed and a bedside time out was performed. Description of Procedure: Fiberoptic bronchoscopy was performed via endotracheal tube. Bronchioalveolar lavage left lower lobe was performed. Findings included: Moderate thick secretions suctioned from the right upper lobe and left lower lobe. Mild hyperemia of lung tissue. Complications: None Specimens: Bronchial washings sent for culture and Gram stain, fungal elements, AFB stain and culture, cell count differential. Estimated blood loss: Zero Coding CPT Codes Pulmonary/Thoracic - Pulmonary and Thoracic: 46390 Dx bronchoscopy/BAL [id number][place] [facility] [place] Codes (Charges) Pulmonary/Thoracic Procedure 1: Pulmonary and Thoracic: 10451 Dx bronchoscopy/BAL
--- NOTE | 2022-10-08 14:59 | Critical Care Consultation ---
Date of Consultation October 08, 2022 Assessment & Plan (1) Sepsis: Reason Critically Ill: Acute on chronic hypoxic respiratory failure PLAN: Neuro: Cerebral palsy -Continue current antiepileptics: Depakote level reviewed Resp: Acute hypoxic respiratory failure -Status post bronchoscopy, no evidence of tracheitis cultures pending Bilateral pleural effusions -Small would be difficult and risky to obtain sample -Continue pulmonary toilet CV: Tachycardia Pericardial effusion -Negative troponins and EKG unremarkable previous echo indicated this effusion was smaller than years prior Fluids/Renal: Urine unremarkable, wears diapers chronically Hyponatremia -Appears to occur during episodes of physiologic stress/infection 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 Sepsis from presumptive pulmonary source -BioFire negative -Respiratory culture pending -Leukocytosis and fever -Imaging reviewed -Procalcitonin unremarkable -Cefepime for pulmonary coverage GI/Nutrition: Continue home tube feed formulation Heme: Chronic quadriplegic cerebral palsy, no indication for DVT prophylaxis DVT prophylaxis: Medically contraindicated Endocrine: ICU hyperglycemia protocol Check TSH and T4: Within normal limits Vascular access: Peripheral IVs Code Status: Limited, okay with artificial ventilation no heroics in event of cardiac arrest Disposition: ICU secondary to chronic vent dependence (2) Acute respiratory failure with hypoxia: (3) Sepsis due to pneumonia: (4) Bronchiectasis: (5) Muscle spasticity: (6) Achromobacter pneumonia: (7) 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 This is a life/limb threatening event. This includes time spent evaluating patient, direct bedside care, chart review, placing orders, interpretation of diagnostic studies, discussion with consultants, patient, and/or family members regarding treatment decisions, as well as other required patient management activities. This time is exclusive of all separately billable procedures, and teaching time and separate from and in addition to any other critical care service time. History of Present Illness Reason for Consultation: Chronic ventilator dependence Attending Physician: Randy Morin MD History of Present Illness Patient is a 27-year-old female with a significant past medical history for cerebral palsy and chronic respiratory insufficiency with tracheostomy and chronic ventilator dependence at night. Patient had been doing really well, was brought in approximately 2 weeks ago and started on high-dose Cipro for possible pulmonary infection/tracheitis. She had been doing relatively well for about 1 week and then continued grimacing and acting as if she was in pain. She also had hypoxia difficulty tolerating her home ventilator at night. She is chronically colonized with 2 forms of resistant Pseudomonas. Resides at home and has 24-hour caregiver presents. Allergies Allergy/AdvReac Type Severity Reaction Status Date / Time No Known Allergies Allergy Verified 03/21/22 10:15 Home Medications Medication Instructions Recorded Confirmed Type food supplemt, lactose-reduced 1.5 ea PO QID@07,1130,,07/28/18 10/08/22 History 0.04 gram-1 kcal/mL oral liquid (Boost) water 120 ea PO QID@07,1130,,07/28/18 10/08/22 History acetaminophen 160 mg/5 mL oral 640 mg (20 mL) PO Q6H PRN fever or 12/21/18 10/08/22 Rx liquid pain #473 mL ibuprofen 100 mg/5 mL oral See Rx Instructions PO Q6H PRN 12/21/18 10/08/22 Rx suspension fever or pain #473 mL disposable gloves #100 ea 05/12/19 03/21/22 Rx incontinence pad, liner, disp #20 ea 05/12/19 03/21/22 Rx Miscellaneous Medical Supply #1 ea 02/22/20 03/21/22 Rx (Hospital Bed) nut.tx.,elemental,fbqkdoy-nsfv-vuc 1 ea feeding tube DAILY@1100 08/04/20 10/08/22 History 14 gram-230 kcal/45 mL liquid pkt (Xtracal Plus) nebulizers #1 ea 11/01/20 03/21/22 Rx miscellaneous medical supply 1 ea miscellaneous ONCE #1 ea 12/06/20 03/21/22 Rx miscellaneous medical supply 1 ea miscellaneous ONCE #1 ea 12/06/20 03/21/22 Rx incontinence pad, liner, disp #75 ea 01/03/21 03/21/22 Rx miscellaneous medical supply 1 ea miscellaneous ONCE #180 ea 01/03/21 03/21/22 Rx miscellaneous medical supply #30 ea 01/31/21 03/21/22 Rx ([place] [facility]) cetirizine 10 mg tablet 10 mg feeding tube QAM #90 tabs 11/29/21 10/08/22 Rx polyethylene glycol 3350 17 See Rx Instructions .Route 11/29/21 10/08/22 Rx gram/dose oral powder .COMPLEX #1,530 grams trazodone 50 mg tablet 50 mg feeding tube HS #90 tabs 11/29/21 10/08/22 Rx Miscellaneous Pulmonary Supply #1 ea 12/23/21 03/21/22 Rx clonazepam 0.5 mg disintegrating 0.5 mg feeding tube DIRECTED 01/06/22 10/08/22 Rx tablet PRN PROLONGED SEIZURES #30 tabs diaper,brief,adult,disposable (Day #180 ea 03/25/22 Rx and Night Brief, Large) albuterol sulfate 2.5 mg/3 mL 2.5 mg (3 mL) inhalation Q4H PRN 04/30/22 10/08/22 Rx (0.083 %) solution for nebulization Wheezing/ shortness of breath #540 mL acetylcysteine 200 mg/mL (20 %) 3 ml inhalation BID #100 mL 06/12/22 10/08/22 Rx solution baclofen 20 mg tablet 20 mg feeding tube TID 30 days #90 08/13/22 10/08/22 Rx tabs fluoxetine 20 mg tablet 20 mg feeding tube QDL #30 tabs 08/13/22 10/08/22 Rx zonisamide 100 mg capsule 200 mg feeding tube .COMPLEX 30 08/13/22 10/08/22 Rx days #90 caps budesonide 0.5 mg/2 mL suspension 0.5 mg (2 mL) inhalation BID #120 08/18/22 10/08/22 Rx for nebulization mL sodium chloride 7 % for 4 ml inhalation BID PRN Other 09/26/22 10/08/22 History nebulization tobramycin with nebulizer 300 mg/5 300 mg inhalation DIRECTED 09/26/22 10/08/22 History mL solution for nebulization ciprofloxacin HCl 750 mg tablet 750 mg feeding tube Q8H #36 tabs 09/28/22 10/08/22 Rx albuterol sulfate 2.5 mg/3 mL See Rx Instructions .Route .COMPLEX 10/08/22 10/08/22 History (0.083 %) solution for nebulization valproic acid (as sodium salt) 250 550 mg feeding tube TID 10/08/22 10/08/22 History mg/5 mL oral solution Patient History Medical History Abnormal LFTs Achromobacter pneumonia Acute on chronic respiratory failure with hypoxemia Allergic rhinitis Chronic respiratory failure with hypoxia and hypercapnia Cortical blindness Depression with anxiety Hypotension, chronic Insomnia Mucus plugging of bronchi Multiple 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 Seizure disorder Sepsis Thrombocytopenia Thrombocytopenia Transaminitis Surgical History History of tracheostomy #6 [place] 09/10/2020 S/P percutaneous endoscopic gastrostomy (PEG) tube placement Family History Brother Asthma Other Coronary heart disease Family history non-contributory Hypertension Social History Smoking Status: Never smoker Second Hand Exposure: No; Do You Dip or Chew Tobacco: No; Hx Alcohol Use: No Hx Substance Use: No Preferred Language: Arabic Communication Ability: Impaired Communication Ability Comment: Pt is non-verbal at baseline [employer] Required: No Beliefs That Will Affect Care: None marital status: Single Current Living Situation: Family Current Living Situation Comment: parent Feels Safe at Home: Yes Assistive Devices: Wheelchair Review of Systems Review of Systems: Unobtainable due to cognitive status Physical Exam Physical Exam: General: Alert. nontoxic. Uncomfortable appearing Skin: Warm, dry, Head: Atraumatic Ears, nose, mouth and throat: airway patent Cardiovascular: Normal peripheral perfusion, tachycardia Respiratory: Tracheostomy in place, tachypnea, coarse breath sounds Gastrointestinal: Non distended, PEG tube placement Musculoskeletal: Contractures of all 4 extremities Results & Data Results & Data Vital Signs (Past 12 Hours) Vital Signs Temp Pulse Pulse Resp BP BP Pulse Ox 10/08/22 13:50 134 H 40 H 97 10/08/22 14:09 10/08/22 14:09 37.8 C H 133 H 45 H 139/68 98 10/08/22 13:07 118 H 16 95 10/08/22 11:33 119 H 16 95 10/08/22 11:02 122 H 16 95 10/08/22 10:53 130 H 22 96 10/08/22 10:23 129 H 16 94 10/08/22 10:23 93 10/08/22 09:24 133 H 10/08/22 09:17 132 H 16 10/08/22 09:05 36.6 C 130 H 16 140/85 92 O2 Del Method O2 Flow Rate FiO2 10/08/22 13:50 Trach Collar 10 40 10/08/22 14:09 Trach Collar 10 35 10/08/22 14:09 Trach Collar 10 35 10/08/22 13:07 Trach Collar 10 10/08/22 11:33 Trach Collar 10 35 10/08/22 11:02 Trach Collar 6 10/08/22 10:53 Trach Collar 10 35 10/08/22 10:23 Trach Collar 6 10/08/22 10:23 Trach Collar 6 10/08/22 09:24 10/08/22 09:17 10/08/22 09:05 Trach Collar 6 Critical Care Results & Data Vital Signs (Past 12 Hours) Vital Signs Temp Pulse Pulse Resp BP BP Pulse Ox 10/08/22 14:40 10/08/22 15:42 38.9 C H 144 H 35 H 96 10/08/22 15:42 87/64 L 10/08/22 15:00 91/65 L 10/08/22 15:00 123 H 28 H 97 10/08/22 14:55 132 H 32 H 96 10/08/22 14:55 96/70 L 10/08/22 14:53 142 H 32 H 95 10/08/22 14:53 130/77 10/08/22 14:51 148 H 12 89 L 10/08/22 14:46 105/75 10/08/22 14:46 142 H 40 H 89 L 10/08/22 14:16 135 H 32 H 96 10/08/22 14:16 92/74 L 10/08/22 14:00 139 H 44 H 97 10/08/22 13:51 139 H 33 H 95 10/08/22 15:03 10/08/22 15:20 130 H 40 H 95 10/08/22 13:50 134 H 40 H 97 10/08/22 14:09 10/08/22 14:09 37.8 C H 133 H 45 H 139/68 98 10/08/22 13:07 118 H 16 95 10/08/22 11:33 119 H 16 95 10/08/22 11:02 122 H 16 95 10/08/22 10:53 130 H 22 96 10/08/22 10:23 129 H 16 94 10/08/22 10:23 93 10/08/22 09:24 133 H 10/08/22 09:17 132 H 16 10/08/22 09:05 36.6 C 130 H 16 140/85 92 O2 Del Method O2 Flow Rate FiO2 10/08/22 14:40 Mechanical Vent, Trach Collar 10/08/22 15:42 10/08/22 15:42 10/08/22 15:00 10/08/22 15:00 10/08/22 14:55 10/08/22 14:55 10/08/22 14:53 10/08/22 14:53 10/08/22 14:51 10/08/22 14:46 10/08/22 14:46 10/08/22 14:16 10/08/22 14:16 10/08/22 14:00 10/08/22 13:51 10/08/22 15:03 Mechanical Vent 40 10/08/22 15:20 Mechanical Vent 50 10/08/22 13:50 Trach Collar 10 40 10/08/22 14:09 Trach Collar 10 35 10/08/22 14:09 Trach Collar 10 35 10/08/22 13:07 Trach Collar 10 10/08/22 11:33 Trach Collar 10 35 10/08/22 11:02 Trach Collar 6 10/08/22 10:53 Trach Collar 10 35 10/08/22 10:23 Trach Collar 6 10/08/22 10:23 Trach Collar 6 10/08/22 09:24 10/08/22 09:17 10/08/22 09:05 Trach Collar 6 Lab & Micro Results (Past 24 Hours) RBC 3.94 M/uL (4.20-5.40) L 10/08/22 WBC 24.94 K/ul (4.8-10.8) H 10/08/22 Hgb 13.3 g/dl (12.0-16.0) 10/08/22 Hct 38.7 % (37.0-47.0) 10/08/22 MCV 98.2 fL (80.0-100.0) 10/08/22 MCH 33.8 pg (25.0-34.0) 10/08/22 MCHC 34.4 g/dL (32.0-36.0) 10/08/22 RDW Standard Deviation 43.9 fL (36.4-46.3) 10/08/22 RDW Coefficient of Variation 12.2 % (11.5-14.5) 10/08/22 Plt Count 341 K/uL (130-400) 10/08/22 MPV 8.6 fL (9.4-12.4) L 10/08/22 Neutrophils (%) (Auto) 88.3 % 10/08/22 Lymphocytes (%) (Auto) 3.8 % 10/08/22 Monocytes # (Auto) 1.79 K/uL (0.11-0.59) H 10/08/22 Eosinophils # (Auto) 0.00 K/uL (0-0.50) 10/08/22 Immature Granulocyte % (Auto) 0.6 % 10/08/22 Neutrophils # (Auto) 22.03 K/uL (1.40-6.50) H 10/08/22 Lymphocytes # (Auto) 0.94 K/uL (1.2-3.4) L 10/08/22 Monocytes # (Auto) 1.79 K/uL (0.11-0.59) H 10/08/22 Eosinophils # (Auto) 0.00 K/uL (0-0.50) 10/08/22 Basophils # (Auto) 0.03 K/uL (0-0.2) 10/08/22 Immature Granulocyte # (Auto) 0.15 K/uL (0.01-0.20) 3 Polychromasia 1+ 10/08/22 Na 130 mmol/L (136-145) L 10/08/22 K 4.2 mmol/L (3.5-5.1) 10/08/22 Cl 103 mmol/L (98-107) 10/08/22 CO2 20 mmol/L (21-32) L 10/08/22 Anion Gap 7 (3-11) 10/08/22 BUN 13 mg/dl (6-23) 10/08/22 Creatinine 0.30 mg/dl (0.6-1.2) L 10/08/22 Estimated GFR ( Amer) > 150.0 ml/min 10/08/22 Estimated GFR (Non-Af Amer) > 150.0 ml/min 10/08/22 BUN/Creatinine Ratio 43.3 (10-20) H 10/08/22 Glu 117 mg/dl (70-99(Fasting)) H 10/08/22 Ca 8.5 mg/dl (8.6-10.3) L 10/08/22 Total Bilirubin 0.5 mg/dl (0.2-1.0) 10/08/22 Direct Bilirubin 0.1 mg/dl (0-0.2) 10/08/22 AST 19 U/L (13-39) 10/08/22 ALT 9 U/L (7-52) 10/08/22 Alkaline Phosphatase 82 U/L (34-104) 10/08/22 TP 7.8 gm/dl (6.0-8.3) 10/08/22 Albumin 4.1 gm/dl (3.4-5.0) 10/08/22 Mg 2.0 mg/dl (1.7-2.4) 10/08/22 10:05 Calcium Level 8.5 mg/dl (8.6-10.3) L 10/08/22 14:25 Venous Blood pH 7.41 (7.36-7.41) 10/08/22 10:24 Venous Blood Partial Pressure CO2 35 mmHg (38-50) L 10/08/22 10 :24 Venous Blood Partial Pressure O2 44 mmHg 10/08/22 10:24 Venous Blood HCO3 22 mmol/L 10/08/22 10:24 Venous Blood Base Excess -1.9 mEq/L 10/08/22 10:24 Venous Blood Oxygen Saturation 74.3 % 10/08/22 10:24 Microbiology 10/08/22 14:40 Fungal Smear - Final Bronch Wash,Left Lower Lobe 10/08/22 14:40 Gram Stain - Final Bronch Wash,Left Lower Lobe Diagnostic Findings (Past 24 Hours) Chest/Abdomen X-ray 10/08/22 10:00 CHEST AND ABDOMEN 2 VIEWS HISTORY: Abdominal pain.. COMPARISON: Chest CTA 09/26/2022.. FINDINGS: There are low lung volumes. No pneumothorax. Tracheostomy tube remains in good position. The cardiac silhouette remains enlarged. There are persistent bibasilar densities, left greater than right. There is mild perihilar interstitial/vascular thickening suggestive of mild congestive change. No pneumoperitoneum. No pneumatosis. A gastrostomy tube is seen within the left upper quadrant. No dilated loops of bowel to suggest an obstruction. No renal or ureteral calculi. Moderate well-formed stool seen within the distal colon/rectum. IMPRESSION: 1. Cardiomegaly with mild pulmonary vascular congestion. This has progressed in the interval. 2. Bibasilar densities persist. This could represent atelectasis or pneumonia. 3. No evidence for a bowel obstruction. 4. Moderate well-formed stool seen within the distal colon/rectum. 4. A tracheostomy tube is in good position. ACT 112: Negative or not required by law. Electronically signed by: Edmund Dorman M.D. 10/08/2022 11:33 AM I & O Totals 24 Hours 10/07/22 10/08/22 10/09/22 06:59 06:59 06:59 Intake Total 1620 / 1620 Output Total 200 / 200 Balance 1420 / 1420 Cumulative 10/08/22 08:38 thru 10/08/22 15:57 Intake Total 1620 Output Total 200 Balance 1420 RT Ventilator Mngmt (Last Documented) Ventilator Ordered Settings Respiratory Rate 35 10/08/22 15:42 Fraction of Inspired Oxygen 50 10/08/22 15:20 Ventilator - PT Measurements Respiratory Rate 35 End-Tidal CO2 26 Coding Level of Care Code 27577 CRITICAL CARE 1ST 30-74M Diagnoses Sepsis A41.9 Sepsis acute organ dysfunction status: unspecified Sepsis type: sepsis due to unspecified organism Acute respiratory failure with hypoxia J96.01 Sepsis due to pneumonia J18.9; A41.9 Bronchiectasis J47.9 Muscle spasticity M62.838 Achromobacter pneumonia J15.6 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
[2022-10-08] MEDS ORDERED: NON-FORMULARY MEDICATION (Food Supplemt, Lactose-Reduced [Boost] 0.04 gram- 1 kcal/mL Liqu PO SCH (15:00)
[2022-10-08 15:04] LABS: Anion Gap 7 (3-11); BUN Creatinine Ratio 43.3 (10-20); Blood Urea Nitrogen 13 mg/dl (6-23); Calcium 8.5 mg/dl (8.6-10.3); Carbon Dioxide 20 mmol/L (21-32); Chloride 103 mmol/L (98-107); Creatinine Clr Calc Pharmacy 260.2 ml/min; Est GFR (African American) > 150.0 ml/min; Est GFR (Non-African American) > 150.0 ml/min; Glucose 117 mg/dl (70-99(Fasting)); Potassium 4.2 mmol/L (3.5-5.1); Sodium 130 mmol/L (136-145)
[2022-10-08 15:19] LABS: Thyroid Stimulating Hormone 2.198 uIu/ml (0.300-4.500)
[2022-10-08] MEDS: ALBUTEROL 0.083% NEBU SOLN 3 ML VIAL NEB SCH ×2 (15:20→19:21)
[2022-10-08 15:21] LABS: T4 Free Thyroxine 0.9 ng/dl (0.61-1.60)
--- NOTE | 2022-10-08 15:49 | Electrocardiogram Report ---
Test Reason : Blood Pressure : / mmHG Vent. Rate : 134 BPM Atrial Rate : 134 BPM P-R Int : 112 ms QRS Dur : 066 ms QT Int : 374 ms P-R-T Axes : 000 050 024 degrees QTc Int : 558 ms Sinus tachycardia Nonspecific T wave abnormality Abnormal ECG When compared with ECG of 26-SEP-2022 09:57, No significant change was found Confirmed by Chad Lucas ([id number]) on 10/08/2022 3:49:11 PM Referred By: REFERRED SELF Confirmed By:Chad Lucas
[2022-10-08] MEDS: TUBE FEEDING WATER FLUSH PO SCH ×2 (16:02→20:52)
[2022-10-08] MEDS: POLYETHYLENE (MIRALAX) 17 GM PACK PEG SCH (16:03)
[2022-10-08] MEDS: ICU Protocol for HYPERglycemia SCH ×2 (16:09→21:34)
[2022-10-08 16:14] LABS: Appearance Urine Clear (Clear); Bacteria Urine Automated Negative (Negative); Bilirubin Urine Negative (Negative); Blood Urine Negative (Negative); Color Urine Dark Yellow; Epithelial Cell Urine Auto >30 /lpf (0-5); Glucose Urine UA Negative (Negative); Ketones Urine Trace (Negative); Leukocyte Esterase Urine Negative (Negative); Nitrite Urine Negative (Negative); Protein Urine 1+ (Negative); RBC Urine Automated 0-4 /hpf (0-4); Specific Gravity Urine 1.039 (1.000-1.030); Urobilinogen Urine Negative (Negative)
[2022-10-08] MEDS: VALPROIC ACID 50 MG/ML UDP PEG SCH ×2 (16:37→21:34)
[2022-10-08] MEDS: BACLOFEN 20 MG TAB PEG SCH ×2 (16:37→20:54)
[2022-10-08 16:47] LABS: Adenovirus PCR Not Detected (NotDetected); Bordetella parapertussis PCR Not Detected (NotDetected); Bordetella pertussis PCR Not Detected (NotDetected); Chlamydia pneumoniae PCR Not Detected (NotDetected); Coronavirus 229E PCR Not Detected (NotDetected); Coronavirus CoV-2 (COVID19)PCR Not Detected (NotDetected); Coronavirus HKU1 PCR Not Detected (NotDetected); Coronavirus NL63 PCR Not Detected (NotDetected); Coronavirus OC43PCR Not Detected (NotDetected); Human Metapneumovirus PCR Not Detected (NotDetected); Influenza A PCR Not Detected (NotDetected); Influenza B PCR Not Detected (NotDetected); Mycoplasma pneumoniae PCR Not Detected (NotDetected); Parainfluenza Virus 1 PCR Not Detected (NotDetected); Parainfluenza Virus 2 PCR Not Detected (NotDetected); Parainfluenza Virus 3 PCR Not Detected (NotDetected); Parainfluenza Virus 4 PCR Not Detected (NotDetected); Respiratory Syncytial VirusPCR Not Detected (NotDetected); Rhinovirus/Enterovirus PCR Not Detected (NotDetected)
[2022-10-08 16:59] LABS: Mucus Urine Present (None Prsent)
[2022-10-08] MEDS: ACETAMINOPHEN SUSP 325 MG/10.15 ML UDC PO PRN (17:03)
[2022-10-08] MEDS: CEFEPIME 2,000 MG in SYRINGE 0 ML IV SCH (17:59)
[2022-10-08] MEDS: IBUPROFEN 100 MG/5 ML UDC PO PRN (18:45)
[2022-10-08] MEDS: BUDESONIDE 0.5 MG/2 ML VIAL (PULMICORT) INH SCH (19:20)
[2022-10-08] MEDS: ACETYLCYSTEINE 20% INHAL SOLN 4ML ***DISPENSED BY RESP. INH SCH (19:20)
[2022-10-08] MEDS: TOBRAMYCIN 300MG NEB INH SCH (19:20)
[2022-10-08] MEDS: ZONISAMIDE 100 MG PO SCH (20:54)
[2022-10-08] MEDS: traZODone HCL 50 MG TAB PEG SCH (20:54)
[2022-10-09] MEDS: CEFEPIME 2,000 MG in SYRINGE 0 ML IV SCH ×2 (02:13→08:47)
[2022-10-09 04:59] LABS: Basophils # (auto) 0.01 K/uL (0-0.2); Basophils % (auto) 0.1 %; Eosinophils # (auto) 0.02 K/uL (0-0.50); Eosinophils % (auto) 0.1 %; Hematocrit (blood only) 33.6 % (37.0-47.0); Hemoglobin 11.2 g/dl (12.0-16.0); Immature Granulocytes % (auto) 0.6 %; Lymphocytes # (auto) 0.75 K/uL (1.2-3.4); Lymphocytes % (auto) 4.4 %; Mean Corpuscular Hemoglobin 33.1 pg (25.0-34.0); Mean Corpuscular Hgb Conc 33.3 g/dL (32.0-36.0); Mean Corpuscular Volume 99.4 fL (80.0-100.0); Mean Platelet Volume 9.2 fL (9.4-12.4); Monocytes # (auto) 1.71 K/uL (0.11-0.59); Monocytes % (auto) 10.1 %; Neutrophils % (auto) 84.7 %; Platelet Count 250 K/uL (130-400); RDW Coefficient of Variation 12.5 % (11.5-14.5); RDW Standard Deviation 45.3 fL (36.4-46.3); Red Blood Count 3.38 M/uL (4.20-5.40); White Blood Count 16.89 K/ul (4.8-10.8)
[2022-10-09] MEDS: MoRPHine SULFATE 2 MG/ML CARP IV PRN ×2 (05:34→14:33)
--- NOTE | 2022-10-09 07:06 | Hospitalist Progress Note ---
Date of Service October 09, 2022 Assessment & Plan (1) Acute respiratory failure with hypoxia: Plan: Patient with chronic ventilator use at night trach collar during the day patient had a period of hypoxia on trach collar requiring return to vent remains tachycardic Previously Pseudomonas tracheitis. On home ciprofloxacin and inhaled tobramycin bronchoscopy did not show tracheitis patient transition to cefepime Concern for sepsis on presentation with leukocytosis tachycardia and hypotension Blood cultures currently pending Bronchoscopy 10/08 with tenaceous secretions removed, BAL sample and started on Cefepime, continues on tobramycin nebulized CT scan of the chest does show small effusion and persistent pulmonary changes consistent with pneumonia We will continue her typical pulmonary support with albuterol nebulizer scheduled and as needed Mucomyst scheduled Pulmicort plus nebulized tobramycin. Patient does use a chest vest and CoughAssist at home considerations could be if patient decompensates adding gram-positive coverage such as daptomycin or vancomycin or to consider attempts at thoracentesis to rule out empyema (2) Quadriplegic cerebral palsy: Plan: Pt typically with trache and peg tube support bowel regimen with daily miralax family will bring in home ventilator and pt typically uses cough assist and chest vest twice a day (3) Seizure disorder: Plan: valproic acid level is slightly elevated, last admission due to meropenem did have elevation of dose for a time, level is 110( high normal is 100)will reduce dose to 500 from 550 (4) Allergic rhinitis: Plan: continue claritan Plan patient's hyponatremia is improved continue free water flushes of tube feeds as previous patient remains persistently tachycardic likely her physiology is still under duress we will check inflammatory markers in the morning to trend if improving pt is a conditional code Admission and Anticipated Discharge Date Admission Date: October 08, 2022 Subjective patient is not much better overnight was initiated on cefepime therapy for gram-negative coverage by critical care. After bronchoscopy and samples were obtained. Thus far respiratory BioFire has been negative MRSA nasal screen has been negative patient does have concomitant pleural effusions associate with these pneumonias MRSA nasal screen is correlating majority the time to rule out gram-positive pneumonia Physical Exam Physical Exam: patient slightly responsive on ventilator was sleeping lungs are extremely coarse secretions were suctioned Results & Data Results & Data Vital Signs (Past 12 Hours) Vital Signs Temp Pulse Pulse Resp BP Pulse Ox O2 Del Method 10/09/22 06:00 99.0 F 125 H 23 91 10/09/22 06:00 83/53 L 10/09/22 05:31 111/94 10/09/22 05:31 99.0 F 143 H 12 84 L 10/09/22 05:00 99.0 F 122 H 24 92 10/09/22 05:00 84/59 L 10/09/22 04:00 99.0 F 120 H 24 97 10/09/22 04:00 82/68 L 10/09/22 03:00 98.6 F 121 H 21 96 10/09/22 03:00 89/65 L 10/09/22 02:00 98.8 F 121 H 21 98 10/09/22 02:00 87/64 L 10/09/22 04:00 10/09/22 02:29 10/09/22 02:25 121 H 23 98 10/09/22 01:26 90/58 L 10/09/22 01:26 99.0 F 112 H 17 98 10/09/22 01:00 99.5 F 112 H 27 H 97 10/09/22 01:00 90/85 L 10/09/22 00:30 88/67 L 10/09/22 00:30 99.7 F H 122 H 26 H 97 10/09/22 00:00 99.9 F H 122 H 22 97 10/09/22 00:00 87/65 L 10/08/22 23:30 100.4 F H 120 H 20 97 10/08/22 23:30 89/63 L 10/09/22 00:00 10/09/22 00:00 123 H 10/08/22 23:57 Mechanical Vent 10/08/22 23:00 100.8 F H 123 H 23 96 10/08/22 23:00 95/61 L 10/08/22 22:31 97/66 L 10/08/22 22:31 100.8 F H 137 H 12 94 10/08/22 20:00 10/08/22 22:38 126 H 22 95 10/08/22 22:00 101.3 F H 141 H 13 94 10/08/22 22:00 106/87 10/08/22 21:30 101.7 F H 135 H 26 H 96 10/08/22 21:30 104/72 10/08/22 21:00 102.0 F H 133 H 26 H 97 10/08/22 21:00 113/72 10/08/22 20:30 102.6 F H 138 H 29 H 97 10/08/22 20:30 106/68 10/08/22 20:00 103.1 F H 147 H 33 H 96 10/08/22 20:00 85/72 L 10/08/22 19:30 103.5 F H 144 H 24 94 10/08/22 19:30 91/64 L 10/08/22 19:34 142 H 27 H 93 10/08/22 19:31 142 H 27 H 93 Mechanical Vent FiO2 10/09/22 06:00 10/09/22 06:00 10/09/22 05:31 10/09/22 05:31 10/09/22 05:00 10/09/22 05:00 10/09/22 04:00 10/09/22 04:00 10/09/22 03:00 10/09/22 03:00 10/09/22 02:00 10/09/22 02:00 10/09/22 04:00 50 10/09/22 02:29 50 10/09/22 02:25 60 10/09/22 01:26 10/09/22 01:26 10/09/22 01:00 10/09/22 01:00 10/09/22 00:30 10/09/22 00:30 10/09/22 00:00 10/09/22 00:00 10/08/22 23:30 10/08/22 23:30 10/09/22 00:00 60 10/09/22 00:00 10/08/22 23:57 60 10/08/22 23:00 10/08/22 23:00 10/08/22 22:31 10/08/22 22:31 10/08/22 20:00 60 10/08/22 22:38 60 10/08/22 22:00 10/08/22 22:00 10/08/22 21:30 10/08/22 21:30 10/08/22 21:00 10/08/22 21:00 10/08/22 20:30 10/08/22 20:30 10/08/22 20:00 10/08/22 20:00 10/08/22 19:30 10/08/22 19:30 10/08/22 19:34 60 10/08/22 19:31 60 Laboratory Results reviewed CBC reviewed chemistry reviewed valproic acid level now in therapeutic range PG Care Time/CCT Total # of Minutes Spent Total Time Spent with Patient: Total time spent is greater than 50% in coordination of care (as documented) at patient's floor/unit and/or counseling patient: Coding Level of Care Code 45510 SUB INP/OBS CARE 3/50MIN Diagnoses Acute respiratory failure with hypoxia J96.01 Quadriplegic cerebral palsy G80.8 Seizure disorder G40.909 Allergic rhinitis J30.9
--- NOTE | 2022-10-09 07:30 | Critical Care Progress Note ---
Date of Service October 09, 2022 Assessment & Plan (1) Sepsis: Plan: Reason Critically Ill: Acute on chronic hypoxic respiratory failure PLAN: Neuro: Cerebral palsy -Continue current antiepileptics: Depakote level reviewed Resp: Acute hypoxic respiratory failure: Improving -Status post bronchoscopy, no evidence of tracheitis cultures pending Bilateral pleural effusions -Small would be difficult and risky to obtain sample -Continue pulmonary toilet CV: Tachycardia Pericardial effusion -Negative troponins and EKG unremarkable previous echo indicated this effusion was smaller than years prior Fluids/Renal: Urine unremarkable, wears diapers chronically Hyponatremia: Improving -Appears to occur during episodes of physiologic stress/infection 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 -BioFire negative -Respiratory culture pending -Leukocytosis: Improving and fever -Imaging reviewed -Cefepime for pulmonary coverage -Await for culture growth 48 to 72 hours GI/Nutrition: Continue home tube feed formulation Heme: Chronic quadriplegic cerebral palsy, no indication for DVT prophylaxis DVT prophylaxis: Medically contraindicated Endocrine: ICU hyperglycemia protocol Check TSH and T4: Within normal limits Vascular access: Peripheral IVs Code Status: Limited, okay with artificial ventilation no heroics in event of cardiac arrest Disposition: ICU secondary to chronic vent dependence (2) Acute respiratory failure with hypoxia: (3) Sepsis due to pneumonia: (4) Bronchiectasis: (5) Muscle spasticity: (6) 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 nontoxic. Skin: Warm, dry, Head: Atraumatic, dental caries, gingival hypertrophy Ears, nose, mouth and throat: airway patent, TM normal, no evidence of effusion Cardiovascular: Normal peripheral perfusion, tachycardia Respiratory: Tracheostomy in place, tachypnea, coarse breath sounds Gastrointestinal: Non distended, PEG tube placement Musculoskeletal: Contractures of all 4 extremities Results & Data Results & Data Vital Signs (Past 12 Hours) Vital Signs Temp Pulse Pulse Resp BP Pulse Ox O2 Del Method 10/09/22 06:00 37.2 C 125 H 23 91 10/09/22 06:00 83/53 L 10/09/22 05:31 111/94 10/09/22 05:31 37.2 C 143 H 12 84 L 10/09/22 05:00 37.2 C 122 H 24 92 10/09/22 05:00 84/59 L 10/09/22 04:00 37.2 C 120 H 24 97 10/09/22 04:00 82/68 L 10/09/22 03:00 37.0 C 121 H 21 96 10/09/22 03:00 89/65 L 10/09/22 02:00 37.1 C 121 H 21 98 10/09/22 02:00 87/64 L 10/09/22 04:00 10/09/22 02:29 10/09/22 02:25 121 H 23 98 10/09/22 01:26 90/58 L 10/09/22 01:26 37.2 C 112 H 17 98 10/09/22 01:00 37.5 C 112 H 27 H 97 10/09/22 01:00 90/85 L 10/09/22 00:30 88/67 L 10/09/22 00:30 37.6 C H 122 H 26 H 97 10/09/22 00:00 37.7 C H 122 H 22 97 10/09/22 00:00 87/65 L 10/08/22 23:30 38.0 C H 120 H 20 97 10/08/22 23:30 89/63 L 10/09/22 00:00 10/09/22 00:00 123 H 10/08/22 23:57 Mechanical Vent 10/08/22 23:00 38.2 C H 123 H 23 96 10/08/22 23:00 95/61 L 10/08/22 22:31 97/66 L 10/08/22 22:31 38.2 C H 137 H 12 94 10/08/22 20:00 10/08/22 22:38 126 H 22 95 10/08/22 22:00 38.5 C H 141 H 13 94 10/08/22 22:00 106/87 10/08/22 21:30 38.7 C H 135 H 26 H 96 10/08/22 21:30 104/72 10/08/22 21:00 38.9 C H 133 H 26 H 97 10/08/22 21:00 113/72 10/08/22 20:30 39.2 C H 138 H 29 H 97 10/08/22 20:30 106/68 10/08/22 20:00 39.5 C H 147 H 33 H 96 10/08/22 20:00 85/72 L 10/08/22 19:34 142 H 27 H 93 10/08/22 19:31 142 H 27 H 93 Mechanical Vent FiO2 10/09/22 06:00 10/09/22 06:00 10/09/22 05:31 10/09/22 05:31 10/09/22 05:00 10/09/22 05:00 10/09/22 04:00 10/09/22 04:00 10/09/22 03:00 10/09/22 03:00 10/09/22 02:00 10/09/22 02:00 10/09/22 04:00 50 10/09/22 02:29 50 10/09/22 02:25 60 10/09/22 01:26 10/09/22 01:26 10/09/22 01:00 10/09/22 01:00 10/09/22 00:30 10/09/22 00:30 10/09/22 00:00 10/09/22 00:00 10/08/22 23:30 10/08/22 23:30 10/09/22 00:00 60 10/09/22 00:00 10/08/22 23:57 60 10/08/22 23:00 10/08/22 23:00 10/08/22 22:31 10/08/22 22:31 10/08/22 20:00 60 10/08/22 22:38 60 10/08/22 22:00 10/08/22 22:00 10/08/22 21:30 10/08/22 21:30 10/08/22 21:00 10/08/22 21:00 10/08/22 20:30 10/08/22 20:30 10/08/22 20:00 10/08/22 20:00 10/08/22 19:34 60 10/08/22 19:31 60 Critical Care Results & Data Vital Signs (Past 12 Hours) Vital Signs Temp Pulse Pulse Resp BP Pulse Ox O2 Del Method 10/09/22 08:18 141 H 26 H 92 Trach Collar 10/09/22 07:40 120 H 25 H 96 10/09/22 06:00 37.2 C 125 H 23 91 10/09/22 06:00 83/53 L 10/09/22 05:31 111/94 10/09/22 05:31 37.2 C 143 H 12 84 L 10/09/22 05:00 37.2 C 122 H 24 92 10/09/22 05:00 84/59 L 10/09/22 04:00 37.2 C 120 H 24 97 10/09/22 04:00 82/68 L 10/09/22 03:00 37.0 C 121 H 21 96 10/09/22 03:00 89/65 L 10/09/22 02:00 37.1 C 121 H 21 98 10/09/22 02:00 87/64 L 10/09/22 04:00 10/09/22 02:29 10/09/22 02:25 121 H 23 98 10/09/22 01:26 90/58 L 10/09/22 01:26 37.2 C 112 H 17 98 10/09/22 01:00 37.5 C 112 H 27 H 97 10/09/22 01:00 90/85 L 10/09/22 00:30 88/67 L 10/09/22 00:30 37.6 C H 122 H 26 H 97 10/09/22 00:00 37.7 C H 122 H 22 97 10/09/22 00:00 87/65 L 10/08/22 23:30 38.0 C H 120 H 20 97 10/08/22 23:30 89/63 L 10/09/22 00:00 10/09/22 00:00 123 H 10/08/22 23:57 Mechanical Vent 10/08/22 23:00 38.2 C H 123 H 23 96 10/08/22 23:00 95/61 L 10/08/22 22:31 97/66 L 10/08/22 22:31 38.2 C H 137 H 12 94 10/08/22 22:38 126 H 22 95 10/08/22 22:00 38.5 C H 141 H 13 94 10/08/22 22:00 106/87 10/08/22 21:30 38.7 C H 135 H 26 H 96 10/08/22 21:30 104/72 FiO2 10/09/22 08:18 50 10/09/22 07:40 50 10/09/22 06:00 10/09/22 06:00 10/09/22 05:31 10/09/22 05:31 10/09/22 05:00 10/09/22 05:00 10/09/22 04:00 10/09/22 04:00 10/09/22 03:00 10/09/22 03:00 10/09/22 02:00 10/09/22 02:00 10/09/22 04:00 50 10/09/22 02:29 50 10/09/22 02:25 60 10/09/22 01:26 10/09/22 01:26 10/09/22 01:00 10/09/22 01:00 10/09/22 00:30 10/09/22 00:30 10/09/22 00:00 10/09/22 00:00 10/08/22 23:30 10/08/22 23:30 10/09/22 00:00 60 10/09/22 00:00 10/08/22 23:57 60 10/08/22 23:00 10/08/22 23:00 10/08/22 22:31 10/08/22 22:31 10/08/22 22:38 60 10/08/22 22:00 10/08/22 22:00 10/08/22 21:30 10/08/22 21:30 Lab & Micro Results (Past 24 Hours) RBC 3.38 M/uL (4.20-5.40) L 10/09/22 WBC 16.89 K/ul (4.8-10.8) H 10/09/22 Hgb 11.2 g/dl (12.0-16.0) L 10/09/22 Hct 33.6 % (37.0-47.0) L 10/09/22 MCV 99.4 fL (80.0-100.0) 10/09/22 MCH 33.1 pg (25.0-34.0) 10/09/22 MCHC 33.3 g/dL (32.0-36.0) 10/09/22 RDW Standard Deviation 45.3 fL (36.4-46.3) 10/09/22 RDW Coefficient of Variation 12.5 % (11.5-14.5) 10/09/22 Plt Count 250 K/uL (130-400) 10/09/22 MPV 9.2 fL (9.4-12.4) L 10/09/22 Neutrophils (%) (Auto) 84.7 % 10/09/22 Lymphocytes (%) (Auto) 4.4 % 10/09/22 Monocytes # (Auto) 1.71 K/uL (0.11-0.59) H 10/09/22 Eosinophils # (Auto) 0.02 K/uL (0-0.50) 10/09/22 Immature Granulocyte % (Auto) 0.6 % 10/09/22 Neutrophils # (Auto) 14.30 K/uL (1.40-6.50) H 10/09/22 Lymphocytes # (Auto) 0.75 K/uL (1.2-3.4) L 10/09/22 Monocytes # (Auto) 1.71 K/uL (0.11-0.59) H 10/09/22 Eosinophils # (Auto) 0.02 K/uL (0-0.50) 10/09/22 Basophils # (Auto) 0.01 K/uL (0-0.2) 10/09/22 Immature Granulocyte # (Auto) 0.10 K/uL (0.01-0.20) 3 Polychromasia 1+ 10/08/22 Na 130 mmol/L (136-145) L 10/08/22 K 4.2 mmol/L (3.5-5.1) 10/08/22 Cl 103 mmol/L (98-107) 10/08/22 CO2 20 mmol/L (21-32) L 10/08/22 Anion Gap 7 (3-11) 10/08/22 BUN 13 mg/dl (6-23) 10/08/22 Creatinine 0.30 mg/dl (0.6-1.2) L 10/08/22 Estimated GFR ( Amer) > 150.0 ml/min 10/08/22 Estimated GFR (Non-Af Amer) > 150.0 ml/min 10/08/22 BUN/Creatinine Ratio 43.3 (10-20) H 10/08/22 Glu 117 mg/dl (70-99(Fasting)) H 10/08/22 Ca 8.5 mg/dl (8.6-10.3) L 10/08/22 Phosphorus Level Pending 10/09/22 Total Bilirubin 0.5 mg/dl (0.2-1.0) 10/08/22 Direct Bilirubin 0.1 mg/dl (0-0.2) 10/08/22 AST 19 U/L (13-39) 10/08/22 ALT 9 U/L (7-52) 10/08/22 Alkaline Phosphatase 82 U/L (34-104) 10/08/22 TP 7.8 gm/dl (6.0-8.3) 10/08/22 Albumin 4.1 gm/dl (3.4-5.0) 10/08/22 Mg 2.1 mg/dl (1.7-2.4) 10/09/22 04:21 Calcium Level 8.5 mg/dl (8.6-10.3) L 10/08/22 14:25 Venous Blood pH 7.41 (7.36-7.41) 10/08/22 10:24 Venous Blood Partial Pressure CO2 35 mmHg (38-50) L 10/08/22 10 :24 Venous Blood Partial Pressure O2 44 mmHg 10/08/22 10:24 Venous Blood HCO3 22 mmol/L 10/08/22 10:24 Venous Blood Base Excess -1.9 mEq/L 10/08/22 10:24 Venous Blood Oxygen Saturation 74.3 % 10/08/22 10:24 Microbiology 10/08/22 14:40 Fungal Smear - Final Bronch Wash,Left Lower Lobe 10/08/22 14:40 Gram Stain - Final Bronch Wash,Left Lower Lobe Diagnostic Findings (Past 24 Hours) Chest/Abdomen X-ray 10/08/22 10:00 CHEST AND ABDOMEN 2 VIEWS HISTORY: Abdominal pain.. COMPARISON: Chest CTA 09/26/2022.. FINDINGS: There are low lung volumes. No pneumothorax. Tracheostomy tube remains in good position. The cardiac silhouette remains enlarged. There are persistent bibasilar densities, left greater than right. There is mild perihilar interstitial/vascular thickening suggestive of mild congestive change. No pneumoperitoneum. No pneumatosis. A gastrostomy tube is seen within the left upper quadrant. No dilated loops of bowel to suggest an obstruction. No renal or ureteral calculi. Moderate well-formed stool seen within the distal colon/rectum. IMPRESSION: 1. Cardiomegaly with mild pulmonary vascular congestion. This has progressed in the interval. 2. Bibasilar densities persist. This could represent atelectasis or pneumonia. 3. No evidence for a bowel obstruction. 4. Moderate well-formed stool seen within the distal colon/rectum. 4. A tracheostomy tube is in good position. ACT 112: Negative or not required by law. Electronically signed by: Edmund Dorman M.D. 10/08/2022 11:33 AM I & O Totals 24 Hours 10/08/22 10/09/22 10/10/22 06:59 06:59 06:59 Intake Total 2170 / 2170 Output Total 575 / 575 Balance 1595 / 1595 Cumulative 10/08/22 08:38 thru 10/09/22 06:00 Intake Total 2170 Output Total 575 Balance 1595 RT Ventilator Mngmt (Last Documented) Ventilator Ordered Settings Ventilator Support Mode Assist Control 10/09/22 07:40 Respiratory Rate 26 10/09/22 08:18 Ventilator Tidal Volume 350 10/09/22 07:40 Setting Minute Ventilation 9.4 10/09/22 07:40 Ventilator Positive Pressure 5 10/09/22 07:40 Support Setting Positive End Expiratory 5 10/09/22 07:40 Pressure Fraction of Inspired Oxygen 50 10/09/22 08:18 Ventilator - PT Measurements Respiratory Rate 26 Exhaled Tidal Volume 340 Minute Ventilation 9.4 Peak Inspiratory Airway 14 Pressure Plateau Pressure 15 Respiratory Cycle Inspiratory: 1:3.4 Expiratory Ratio Inspiratory Phase Time 0.7 End-Tidal CO2 28 Static Lung Compliance 34.00 Dynamic Lung Compliance 37.78 Normal Static Lung Compliance 48.00 Patient Measurements Comment Patient placed on ventilator SIMV for rest at this time due to desaturations on atc. Patient's mother will be arriving this evening to inform RTs and doctors of patient's home vent settings for HS per RN. 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
[2022-10-09] MEDS: BUDESONIDE 0.5 MG/2 ML VIAL (PULMICORT) INH SCH ×2 (07:37→20:27)
[2022-10-09] MEDS: ACETYLCYSTEINE 20% INHAL SOLN 4ML ***DISPENSED BY RESP. INH SCH ×2 (07:37→20:27)
[2022-10-09] MEDS: ALBUTEROL 0.083% NEBU SOLN 3 ML VIAL NEB SCH ×4 (07:38→20:27)
[2022-10-09] MEDS: TOBRAMYCIN 300MG NEB INH SCH ×2 (07:38→20:27)
[2022-10-09] MEDS: ICU Protocol for HYPERglycemia SCH ×4 (08:46→22:11)
[2022-10-09] MEDS: VALPROIC ACID 50 MG/ML UDP PEG SCH ×3 (08:49→20:04)
[2022-10-09] MEDS: BACLOFEN 20 MG TAB PEG SCH ×3 (08:50→20:02)
[2022-10-09] MEDS: CETIRIZINE HCL 10 MG TABLET PO SCH (08:51)
[2022-10-09] MEDS: ZONISAMIDE 100 MG PO SCH ×2 (08:52→20:06)
[2022-10-09] MEDS: TUBE FEEDING WATER FLUSH PO SCH ×4 (08:52→20:02)
[2022-10-09] MEDS ORDERED: ENOXAPARIN INJ 40 MG/0.4 ML SYR SQ SCH (09:00)
[2022-10-09 10:11] LABS: Anion Gap 9 (3-11); Calcium 8.8 mg/dl (8.6-10.3); Carbon Dioxide 18 mmol/L (21-32); Chloride 105 mmol/L (98-107); Potassium 4.3 mmol/L (3.5-5.1); Sodium 132 mmol/L (136-145)
[2022-10-09 10:17] LABS: BUN Creatinine Ratio 44.2 (10-20); Blood Urea Nitrogen 19 mg/dl (6-23); Creatinine Clr Calc Pharmacy 172.8 ml/min; Est GFR (African American) > 150.0 ml/min; Est GFR (Non-African American) 140.4 ml/min; Glucose 104 mg/dl (70-99(Fasting)); Phosphorus 3.6 mg/dl (2.5-4.9)
[2022-10-09] MEDS ORDERED: OPTIRAY 320 100ml IV ONE (10:38)
[2022-10-09] MEDS ORDERED: [UNRECOGNIZED DRUG - OTHER] feeding tube SCH (11:00)
[2022-10-09] MEDS: POLYETHYLENE (MIRALAX) 17 GM PACK PEG SCH (12:23)
[2022-10-09] MEDS: ACETAMINOPHEN SUSP 325 MG/10.15 ML UDC PO PRN ×2 (14:12→20:07)
--- NOTE | 2022-10-09 15:22 | CT Scan Report ---
CT chest diagnostic w con CLINICAL HISTORY: hypoxia TECHNIQUE: Multidetector row helical CT of the chest was performed with intravenous contrast. Coronal and sagittal reformations were obtained. Automated dose lowering techniques and/or adjustment accord ing to patient size were utilized for this exam. CT DOSE: 542.36 mGy.cm Comparison: Comparison is made to CTA chest 09/26/2022 FINDINGS: Lungs and pleura: Tracheostomy tube is seen. Multifocal consolidative and groundglass nodules are see n. Small bilateral pleural effusions are seen with underlying atelectasis. Heart and pericardium: Pericardial effusion is again seen. Vessels: Unremarkable. Mediastinum and whitney: Multiple mediastinal lymph nodes are seen measuring up to 14 mm in the left upp er paratracheal station. Chest wall and lower neck: Unremarkable. Abdomen: Unremarkable. Bones: Unremarkable. IMPRESSION: 1. Worsening multifocal consolidative and groundglass nodules compatible with pneumonia. Mediastinal lymphadenopathy is seen. 2. Small bilateral pleural effusions with associated atelectasis. 3. Moderate pericardial effusion is unchanged. ACT 112: Negative or not required by law. Electronically signed by: Raudel Rich M.D. 10/09/2022 3:21 PM
[2022-10-09] MEDS: Cefepime 2,000 MG Extended Infusion IV SCH (16:16)
[2022-10-09] MEDS: IBUPROFEN 100 MG/5 ML UDC PO PRN (19:14)
[2022-10-09] MEDS: traZODone HCL 50 MG TAB PEG SCH (20:03)
[2022-10-10] MEDS: Cefepime 2,000 MG Extended Infusion IV SCH ×2 (00:05→08:35)
[2022-10-10 05:03] LABS: Basophils # (auto) 0.01 K/uL (0-0.2); Basophils % (auto) 0.1 %; Eosinophils # (auto) 0.04 K/uL (0-0.50); Eosinophils % (auto) 0.3 %; Hematocrit (blood only) 32.5 % (37.0-47.0); Hemoglobin 10.7 g/dl (12.0-16.0); Immature Granulocytes # (auto) 0.03 K/uL (0.01-0.20); Immature Granulocytes % (auto) 0.2 %; Lymphocytes % (auto) 4.6 %; Mean Corpuscular Hemoglobin 33.1 pg (25.0-34.0); Mean Corpuscular Hgb Conc 32.9 g/dL (32.0-36.0); Mean Corpuscular Volume 100.6 fL (80.0-100.0); Mean Platelet Volume 9.3 fL (9.4-12.4); Monocytes # (auto) 1.14 K/uL (0.11-0.59); Monocytes % (auto) 8.8 %; Neutrophils # (auto) 11.14 K/uL (1.40-6.50); Platelet Count 205 K/uL (130-400); RDW Coefficient of Variation 12.4 % (11.5-14.5); RDW Standard Deviation 45.5 fL (36.4-46.3); Red Blood Count 3.23 M/uL (4.20-5.40); White Blood Count 12.96 K/ul (4.8-10.8)
[2022-10-10 05:09] LABS: Anion Gap 7 (3-11); BUN Creatinine Ratio 38.8 (10-20); Blood Urea Nitrogen 19 mg/dl (6-23); Calcium 9.1 mg/dl (8.6-10.3); Carbon Dioxide 23 mmol/L (21-32); Chloride 105 mmol/L (98-107); Creatinine Clr Calc Pharmacy 151.6 ml/min; Est GFR (African American) > 150.0 ml/min; Est GFR (Non-African American) 134.5 ml/min; Glucose 86 mg/dl (70-99(Fasting)); Magnesium 2.2 mg/dl (1.7-2.4); Phosphorus 4.5 mg/dl (2.5-4.9); Potassium 4.1 mmol/L (3.5-5.1); Sodium 135 mmol/L (136-145)
[2022-10-10] MEDS: IBUPROFEN 100 MG/5 ML UDC PO PRN ×2 (05:23→13:36)
[2022-10-10] MEDS: TUBE FEEDING WATER FLUSH PO SCH ×4 (05:24→20:41)
[2022-10-10] MEDS: ICU Protocol for HYPERglycemia SCH ×2 (07:10→11:44)
[2022-10-10] MEDS: ALBUTEROL 0.083% NEBU SOLN 3 ML VIAL NEB SCH ×4 (07:38→19:29)
[2022-10-10] MEDS: BUDESONIDE 0.5 MG/2 ML VIAL (PULMICORT) INH SCH ×2 (07:38→19:30)
[2022-10-10] MEDS: ACETYLCYSTEINE 20% INHAL SOLN 4ML ***DISPENSED BY RESP. INH SCH ×2 (07:38→19:54)
[2022-10-10] MEDS: TOBRAMYCIN 300MG NEB INH SCH ×2 (07:38→19:30)
[2022-10-10] MEDS: CETIRIZINE HCL 10 MG TABLET PO SCH (08:31)
[2022-10-10] MEDS: BACLOFEN 20 MG TAB PEG SCH ×3 (08:31→21:16)
[2022-10-10] MEDS: ZONISAMIDE 100 MG PO SCH ×2 (08:32→21:14)
[2022-10-10] MEDS: VALPROIC ACID 50 MG/ML UDP PEG SCH ×3 (08:32→21:14)
[2022-10-10] MEDS: POLYETHYLENE (MIRALAX) 17 GM PACK PEG SCH (08:34)
[2022-10-10] MEDS: ACETAMINOPHEN SUSP 325 MG/10.15 ML UDC PO PRN ×2 (08:35→20:30)
--- NOTE | 2022-10-10 08:41 | Critical Care Progress Note ---
Date of Service October 10, 2022 Assessment & Plan (1) Sepsis: Plan: Reason Critically Ill: Acute on chronic hypoxic respiratory failure PLAN: Neuro: Cerebral palsy -Continue current antiepileptics: Depakote level reviewed -Staff reported patient was on meropenem on last admission however this interacted with Depakote levels Resp: Acute hypoxic respiratory failure: Improving -Status post bronchoscopy, no evidence of tracheitis cultures pending Bilateral pleural effusions -Continue pulmonary toilet CV: Tachycardia Pericardial effusion -Negative troponins and EKG unremarkable previous echo indicated this effusion was smaller than years prior Fluids/Renal: Urine unremarkable, wears diapers chronically Hyponatremia: Improving -Appears to occur during episodes of physiologic stress/infection 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 Febrile illness -BioFire negative -Respiratory culture pending -Leukocytosis: Improving and fever -Imaging reviewed -Cefepime for pulmonary coverage -Await for culture growth 48 to 72 hours -ID consult for better antibiotic selection given continued febrility GI/Nutrition: Continue home tube feed formulation Heme: Chronic quadriplegic cerebral palsy, no indication for DVT prophylaxis DVT prophylaxis: Medically contraindicated Endocrine: ICU hyperglycemia protocol Check TSH and T4: Within normal limits Vascular access: Peripheral IVs: Several peripheral IVs have infiltrated may require PICC line placement for secure access Code Status: Limited, okay with artificial ventilation no heroics in event of cardiac arrest Disposition: ICU secondary to chronic vent dependence Discussed with mother current plans. Antibiotic changed, discussed risk benefits of further evaluation for source of fever. The present time we will continue antibiotic administration if the patient does not improve in the next 48 to 72 hours we will again readdress additional evaluation. Patient has lost several IVs mother gives consent for possible PICC or midline, this was attempte d previously and unsuccessful. We discussed risks and benefits of permanent vascular access. Continue with current present plan of care, if patient decompensates may require additional diagnostics and intervention. 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 No overnight events otherwise. Appears to be near baseline Physical Exam Physical Exam: General: Alert. nontoxic. Skin: Warm, dry, Head: Atraumatic, dental caries, gingival hypertrophy Ears, nose, mouth and throat: airway patent Cardiovascular: Normal peripheral perfusion, tachycardia Respiratory: Tracheostomy in place, tachypnea, coarse breath sounds Gastrointestinal: Non distended, PEG tube placement Musculoskeletal: Contractures of all 4 extremities Results & Data Results & Data Vital Signs (Past 12 Hours) Vital Signs Temp Pulse Resp BP Pulse Ox O2 Del Method FiO2 10/10/22 07:43 115 H 28 H 95 70 10/10/22 06:00 37.2 C 112 H 26 H 112/76 99 Mechanical Vent 70 10/10/22 05:00 36.8 C 109 H 24 107/66 94 Mechanical Vent 70 10/10/22 04:00 36.8 C 94 H 18 88/59 L 99 Mechanical Vent 70 10/10/22 03:00 36.9 C 98 H 18 81/61 L 94 Mechanical Vent 65 10/10/22 03:20 99 H 22 97 60 10/10/22 02:00 36.7 C 98 H 14 107/68 97 Mechanical Vent 70 10/10/22 01:00 36.9 C 99 H 24 87/59 L 96 Mechanical Vent 70 10/10/22 00:00 37.1 C 104 H 24 88/57 L 99 Mechanical Vent 70 10/10/22 00:00 70 10/09/22 23:00 37.3 C 108 H 23 94/62 L 98 Mechanical Vent 70 10/09/22 22:00 37.7 C H 108 H 22 92/61 L 96 Mechanical Vent 75 10/09/22 21:00 38.4 C H 119 H 26 H 91/62 L 95 Mechanical Vent 75 10/09/22 22:03 107 H 23 97 75 Critical Care Results & Data Vital Signs (Past 12 Hours) Vital Signs Temp Pulse Resp BP Pulse Ox O2 Del Method FiO2 10/10/22 07:43 115 H 28 H 95 70 10/10/22 06:00 37.2 C 112 H 26 H 112/76 99 Mechanical Vent 70 10/10/22 05:00 36.8 C 109 H 24 107/66 94 Mechanical Vent 70 10/10/22 04:00 36.8 C 94 H 18 88/59 L 99 Mechanical Vent 70 10/10/22 03:00 36.9 C 98 H 18 81/61 L 94 Mechanical Vent 65 10/10/22 03:20 99 H 22 97 60 10/10/22 02:00 36.7 C 98 H 14 107/68 97 Mechanical Vent 70 10/10/22 01:00 36.9 C 99 H 24 87/59 L 96 Mechanical Vent 70 10/10/22 00:00 37.1 C 104 H 24 88/57 L 99 Mechanical Vent 70 10/10/22 00:00 70 10/09/22 23:00 37.3 C 108 H 23 94/62 L 98 Mechanical Vent 70 10/09/22 22:00 37.7 C H 108 H 22 92/61 L 96 Mechanical Vent 75 10/09/22 21:00 38.4 C H 119 H 26 H 91/62 L 95 Mechanical Vent 75 10/09/22 22:03 107 H 23 97 75 Lab & Micro Results (Past 24 Hours) RBC 3.23 M/uL (4.20-5.40) L 10/10/22 WBC 12.96 K/ul (4.8-10.8) H 10/10/22 Hgb 10.7 g/dl (12.0-16.0) L 10/10/22 Hct 32.5 % (37.0-47.0) L 10/10/22 MCV 100.6 fL (80.0-100.0) H 10/10/22 MCH 33.1 pg (25.0-34.0) 10/10/22 MCHC 32.9 g/dL (32.0-36.0) 10/10/22 RDW Standard Deviation 45.5 fL (36.4-46.3) 10/10/22 RDW Coefficient of Variation 12.4 % (11.5-14.5) 10/10/22 Plt Count 205 K/uL (130-400) 10/10/22 MPV 9.3 fL (9.4-12.4) L 10/10/22 Neutrophils (%) (Auto) 86.0 % 10/10/22 Lymphocytes (%) (Auto) 4.6 % 10/10/22 Monocytes # (Auto) 1.14 K/uL (0.11-0.59) H 10/10/22 Eosinophils # (Auto) 0.04 K/uL (0-0.50) 10/10/22 Immature Granulocyte % (Auto) 0.2 % 10/10/22 Neutrophils # (Auto) 11.14 K/uL (1.40-6.50) H 10/10/22 Lymphocytes # (Auto) 0.60 K/uL (1.2-3.4) L 10/10/22 Monocytes # (Auto) 1.14 K/uL (0.11-0.59) H 10/10/22 Eosinophils # (Auto) 0.04 K/uL (0-0.50) 10/10/22 Basophils # (Auto) 0.01 K/uL (0-0.2) 10/10/22 Immature Granulocyte # (Auto) 0.03 K/uL (0.01-0.20) 3 Na 135 mmol/L (136-145) L 10/10/22 K 4.1 mmol/L (3.5-5.1) 10/10/22 Cl 105 mmol/L (98-107) 10/10/22 CO2 23 mmol/L (21-32) 10/10/22 Anion Gap 7 (3-11) 10/10/22 BUN 19 mg/dl (6-23) 10/10/22 Creatinine 0.49 mg/dl (0.6-1.2) L 10/10/22 Estimated GFR ( Amer) > 150.0 ml/min 10/10/22 Estimated GFR (Non-Af Amer) 134.5 ml/min 10/10/22 BUN/Creatinine Ratio 38.8 (10-20) H 10/10/22 Glu 86 mg/dl (70-99(Fasting)) 10/10/22 Ca 9.1 mg/dl (8.6-10.3) 10/10/22 Phosphorus Level 4.5 mg/dl (2.5-4.9) 10/10/22 Mg 2.2 mg/dl (1.7-2.4) 10/10/22 04:37 Calcium Level 9.1 mg/dl (8.6-10.3) 10/10/22 04:37 Microbiology 10/08/22 10:24 Aerobic Blood Culture - Preliminary Blood No growth in Aerobic bottle after 24 hours. Anaerobic Blood Culture - Final 10/08/22 14:40 Gram Stain - Final Bronch Wash,Left Lower Lobe Bronchial Culture - Preliminary Light normal dawit present, final report to follow. 10/08/22 10:24 Aerobic Blood Culture - Preliminary Blood No growth in Aerobic bottle after 24 hours. Anaerobic Blood Culture - Preliminary No growth in Anaerobic bottle after 24 hours. Diagnostic Findings (Past 24 Hours) Chest CT 10/09/22 09:39 CT chest diagnostic w con CLINICAL HISTORY: hypoxia TECHNIQUE: Multidetector row helical CT of the chest was performed with intravenous contrast. Coronal and sagittal reformations were obtained. Automated dose lowering techniques and/or adjustment according to patient size were utilized for this exam. CT DOSE: 542.36 mGy.cm Comparison: Comparison is made to CTA chest 09/26/2022 FINDINGS: Lungs and pleura: Tracheostomy tube is seen. Multifocal consolidative and groundglass nodules are seen. Small bilateral pleural effusions are seen with underlying atelectasis. Heart and pericardium: Pericardial effusion is again seen. Vessels: Unremarkable. Mediastinum and whitney: Multiple mediastinal lymph nodes are seen measuring up to 14 mm in the left upper paratracheal station. Chest wall and lower neck: Unremarkable. Abdomen: Unremarkable. Bones: Unremarkable. IMPRESSION: 1. Worsening multifocal consolidative and groundglass nodules compatible with pneumonia. Mediastinal lymphadenopathy is seen. 2. Small bilateral pleural effusions with associated atelectasis. 3. Moderate pericardial effusion is unchanged. ACT 112: Negative or not required by law. Electronically signed by: Raudel Rich M.D. 10/09/2022 3:21 PM I & O Totals 24 Hours 10/09/22 10/10/22 10/11/22 06:59 06:59 06:59 Intake Total 2170 / 2170 780 / 780 Output Total 575 / 575 275 / 275 Balance 1595 / 1595 505 / 505 Cumulative 10/08/22 08:38 thru 10/10/22 06:00 Intake Total 2950 Output Total 850 Balance 2100 RT Ventilator Mngmt (Last Documented) Ventilator Ordered Settings Ventilator Support Mode SIMV 10/10/22 07:43 Respiratory Rate 28 10/10/22 07:43 Ventilator Tidal Volume 350 10/10/22 07:43 Setting Minute Ventilation 8.9 10/10/22 07:43 Ventilator Positive Pressure 5 10/10/22 07:43 Support Setting Positive End Expiratory 5 10/10/22 07:43 Pressure Fraction of Inspired Oxygen 70 10/10/22 07:43 Machine Comment FIO2 DECREASED 10/10/22 03:20 Ventilator - PT Measurements Respiratory Rate 28 Exhaled Tidal Volume 346 Minute Ventilation 8.9 Peak Inspiratory Airway 27 Pressure Plateau Pressure 21.9 Respiratory Cycle Inspiratory: 1:3.8 Expiratory Ratio Inspiratory Phase Time 0.7 End-Tidal CO2 26 Static Lung Compliance 20.47 Dynamic Lung Compliance 15.73 Normal Static Lung Compliance 44.00 Patient Measurements Comment Patient placed on ventilator SIMV for rest at this time due to desaturations on atc. Patient's mother will be arriving this evening to inform RTs and doctors of patient's home vent settings for HS per RN. 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
--- NOTE | 2022-10-10 10:03 | Infectious Disease Consult ---
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 GS--rare GPCs -Fungal smear neg, cx pending -AFB smear, cx: pending 10/08 BCx x2: NGTD 09/26 Sputum cx: PsA #1 (S cefepime, ceftaz, cipro, alia, pip/tazo. I levo. R gent.), PsA #2 (S ceftaz, cipro, alia, pip/tazo. I cefepime. R levo, gent) 08/04 Sputum cx: PsA (S ceftaz, cipro, alia, pip/tazo. I cefepime, aztreonam. R levo, gent.) 06/23 Sputum cx: PsA (S cefepime, ceftaz, cipro, levo, alia, pip/tazo. R gent, tobra) 11/25/21 BAL LLL: PsA (S ceftaz, cipro, alia, pip/tazo. I cefepime. R levo, gent) 11/23/21 Sputum cx: PsA (S ceftaz, cipro, alia, tobra, pip/tazo. I cefepime, gent. R levo) 08/27/21 Sputum cx: PsA, Achromobacter (S ceftaz, levo, TMP/SMX. I cipro. R cefepime, gent, alia, pip/tazo) Abx: Cefepime 10/08 - 10/10 Pip-tazo 10/08, 10/10 - present Problems: #Acute hypoxic respiratory failure #Fever #Chronic tracheostomy #Pseudomonas colonization #Seizure disorder on valproic acid 27 yo F with history of cerebral palsy, chronic tracheostomy and vented at night, chronic mucous plugging, Pseudomonas and Achromobacter colonization, seizure disorder, recent admission for tracheitis and discharged 09/28 on ciprofloxacin, who presented on 10/08 with hypoxia, admitted with pneumonia. At her last admission from 09/26-09/28, a CT chest showed no PE, moderate bilateral lower lobe airspace opacities, multifocal bilateral upper lobe airspace opacities. Patient was started on meropenem. Her valproic acid level decreased, likely in the setting of meropenem. Sputum culture grew 2 types of Pseudomonas, both susceptible to ciprofloxacin. She was discharged on high-dose ciprofloxacin 750 mg every 8 hours x12 additional days. Per notes, pt was doing well until about 36 hours prior to presentation, when she was appearing uncomfortable, did not tolerate the ventilator overnight, and had hypoxia overnight. She had a trach change at home without much change in quantity or quality of mucus. In the ED, patient was initially afebrile, HR 130, trach collar 6 L. However, later she became febrile, was placed on ventilator. Labs showed WBC 25, procalcitonin <0.05. RVP negative. Blood cultures NGTD. CXR showed bibasilar densities. A bronchoscopy was performed, showing moderate thick secretions in the right upper and left lower lobes. Patient was started on cefepime. A CT chest on 10/09 showed worsening multifocal consolidative and groundglass nodules compatible with pneumonia. BAL cx finalized as light normal dawit. WBC has down trended to 13. Last fever on 10/09 evening. Remains mechanically ventilated, FiO2 70%. Recommendations: -Interestingly, BAL culture is only growing "normal dawit". Think still reasonable to treat for pneumonia and cover prior Pseudomonas. Stopped cefepime, given prior PsA isolate with intermediate resistance to cefepime. Avoiding meropenem because of concern it would lower her valproic acid level in the setting of seizure disorder. The pip-tazo VINICIUS is <=16 (high but susceptible--although it is notable that the susceptibility testing panel at [facility] only tests for pip-tazo VINICIUS down to 16, nothing lower. Therefore, one would only be able to tell susceptible vs intermediate, but not how susceptible it is.) Starting pip-tazo, with dosing optimized to 4.5 g q6h over 3 hours. -Ordered a sputum culture to see if we are able to grow anything on culture, given that the BAL cx is negative. -Continue to monitor respiratory status. If pt is clinically worsening, would switch to ceftolozane-tazobactam 3 g IV q8h extended infusion in case the PsA has developed resistance to pip-tazo Will continue to follow. Please note that there will be no ID notes over the weekend. If questions or concerns arise, please contact the Infectious Disease Call Center and ask to speak with the covering ID physician. Dr. Alana Wakefield will take over on Thursday. Consultation Information Consultation was provided via telemedicine using two-way real-time interactive telecommunication between the patient and the telemedicine provider. For the duration of the visit, the provider was performing the assessment from a different facility than the patient. This includesuse of bluetooth stethoscope forauscultationperformed by the telepresenter that the telemedicine provider can hear if described in the physical exam. Radiation Safety Officer contact information: Please call [facility] [phone]. (Phone Number For Physician Use Only) After establishing a telemedicine visit, patient was: Patient was verified with two unique identifiers, Patient/authorized rep acknowledged consent and understanding and Gave permission to continue telehealth session Time Spent with Patient: Initial => 40 min History of Present Illness Reason for Consultation: Pseudomonas respiratory infection Requesting Physician: Dr. Afshin Tariq Attending Physician: Randy Morin MD History of Present Illness 27 yo F with history of cerebral palsy, chronic tracheostomy and vented at night, chronic mucous plugging, Pseudomonas and Achromobacter colonization, seizure disorder, recent admission for tracheitis and discharged 09/28 on ciprofloxacin, who presented on 10/08 with hypoxia. During her last admission from 09/26 to 09/28, she presented with periods of desaturation, new pink/thin tracheal secretions, and difficulty with cough x1 day. A CT chest at that time showed no PE, moderate bilateral lower lobe airspace opacities, multifocal bilateral upper lobe airspace opacities. Patient was started on meropenem. There was concern that the meropenem lowered her valproic acid level. Sputum culture grew 2 types of Pseudomonas, both susceptible to ciprofloxacin. She was discharged on high-dose ciprofloxacin 750 mg every 8 hours x12 additional days. Patient was reportedly doing well until about 36 hours prior to presentation, when she was appearing uncomfortable, did not tolerate the ventilator overnight, and had hypoxia overnight. She had a trach change at home without much change in quantity or quality of mucus. In the ED, patient was initially afebrile, HR 130, trach collar 6 L. However, later she became febrile, requiring mechanical ventilation. Labs showed WBC 25, procalcitonin <0.05. RVP negative. Blood cultures NGTD. CXR showed bibasilar densities. A bronchoscopy was performed, showing moderate thick secretions in the right upper and left lower lobes. BAL cx was sent. Patient was started on cefepime. A CT chest on 10/09 showed worsening multifocal consolidative and groundglass nodules compatible with pneumonia. BAL cx finalized as light normal dawit. WBC has down trended to 13. Last fever on 10/09 evening. Remains mechanically ventilated, FiO2 70%. Allergies Allergy/AdvReac Type Severity Reaction Status Date / Time No Known Allergies Allergy Verified 03/21/22 10:15 Home Medications Medication Instructions Recorded Confirmed Type food supplemt, lactose-reduced 1.5 ea PO QID@07,1130,,07/28/18 10/08/22 History 0.04 gram-1 kcal/mL oral liquid (Boost) water 120 ea PO QID@07,1130,,07/28/18 10/08/22 History acetaminophen 160 mg/5 mL oral 640 mg (20 mL) PO Q6H PRN fever or 12/21/18 10/08/22 Rx liquid pain #473 mL ibuprofen 100 mg/5 mL oral See Rx Instructions PO Q6H PRN 12/21/18 10/08/22 Rx suspension fever or pain #473 mL disposable gloves #100 ea 05/12/19 03/21/22 Rx incontinence pad, liner, disp #20 ea 05/12/19 03/21/22 Rx Miscellaneous Medical Supply #1 ea 02/22/20 03/21/22 Rx (Hospital Bed) nut.tx.,elemental,[id number] 1 ea feeding tube DAILY@1100 08/04/20 10/08/22 History 14 gram-230 kcal/45 mL liquid pkt (Xtracal Plus) nebulizers #1 ea 11/01/20 03/21/22 Rx miscellaneous medical supply 1 ea miscellaneous ONCE #1 ea 12/06/20 03/21/22 Rx miscellaneous medical supply 1 ea miscellaneous ONCE #1 ea 12/06/20 03/21/22 Rx incontinence pad, liner, disp #75 ea 01/03/21 03/21/22 Rx miscellaneous medical supply 1 ea miscellaneous ONCE #180 ea 01/03/21 03/21/22 Rx miscellaneous medical supply #30 ea 01/31/21 03/21/22 Rx ([place] Tracheostomy [facility] Tray) cetirizine 10 mg tablet 10 mg feeding tube QAM #90 tabs 11/29/21 10/08/22 Rx polyethylene glycol 3350 17 See Rx Instructions .Route 11/29/21 10/08/22 Rx gram/dose oral powder .COMPLEX #1,530 grams trazodone 50 mg tablet 50 mg feeding tube HS #90 tabs 11/29/21 10/08/22 Rx Miscellaneous Pulmonary Supply #1 ea 12/23/21 03/21/22 Rx clonazepam 0.5 mg disintegrating 0.5 mg feeding tube DIRECTED 01/06/22 10/08/22 Rx tablet PRN PROLONGED SEIZURES #30 tabs diaper,brief,adult,disposable (Day #180 ea 03/25/22 Rx and Night Brief, Large) albuterol sulfate 2.5 mg/3 mL 2.5 mg (3 mL) inhalation Q4H PRN 04/30/22 10/08/22 Rx (0.083 %) solution for nebulization Wheezing/ shortness of breath #540 mL acetylcysteine 200 mg/mL (20 %) 3 ml inhalation BID #100 mL 06/12/22 10/08/22 Rx solution baclofen 20 mg tablet 20 mg feeding tube TID 30 days #90 08/13/22 10/08/22 Rx tabs fluoxetine 20 mg tablet 20 mg feeding tube QDL #30 tabs 08/13/22 10/08/22 Rx zonisamide 100 mg capsule 200 mg feeding tube .COMPLEX 30 08/13/22 10/08/22 Rx days #90 caps budesonide 0.5 mg/2 mL suspension 0.5 mg (2 mL) inhalation BID #120 08/18/22 10/08/22 Rx for nebulization mL sodium chloride 7 % for 4 ml inhalation BID PRN Other 09/26/22 10/08/22 History nebulization tobramycin with nebulizer 300 mg/5 300 mg inhalation DIRECTED 09/26/22 10/08/22 History mL solution for nebulization ciprofloxacin HCl 750 mg tablet 750 mg feeding tube Q8H #36 tabs 09/28/22 10/08/22 Rx albuterol sulfate 2.5 mg/3 mL See Rx Instructions .Route .COMPLEX 10/08/22 10/08/22 History (0.083 %) solution for nebulization valproic acid (as sodium salt) 250 550 mg feeding tube TID 10/08/22 10/08/22 History mg/5 mL oral solution Patient History Medical History Abnormal LFTs Achromobacter pneumonia Acute on chronic respiratory failure with hypoxemia Allergic rhinitis Chronic respiratory failure with hypoxia and hypercapnia Cortical blindness Depression with anxiety Hypotension, chronic Insomnia Mucus plugging of bronchi Multiple 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 Seizure disorder Sepsis Thrombocytopenia Thrombocytopenia Transaminitis Surgical History History of tracheostomy #6 [place] 09/10/2020 S/P percutaneous endoscopic gastrostomy (PEG) tube placement Family History Brother Asthma Other Coronary heart disease Family history non-contributory Hypertension Social History Smoking Status: Never smoker Second Hand Exposure: No; Do You Dip or Chew Tobacco: No; Hx Alcohol Use: No Hx Substance Use: No Preferred Language: Maori Communication Ability: Impaired Communication Ability Comment: Pt is non-verbal at baseline Charge Master Specialist Required: No Beliefs That Will Affect Care: None marital status: Single Current Living Situation: Family Current Living Situation Comment: parent Feels Safe at Home: Yes Assistive Devices: Hospital Bed, Lift Chair and Other Review of System Unable to obtain given patient condition. Physical Exam Physical Exam: GEN: laying in bed, unresponsive HEENT: Tracheostomy in place, mechanically ventilated RESP: coarse breath sounds bilaterally ABD: Soft, non-distended. Non-tender to palpation. G tube. EXT: No LE edema. Warm, well-perfused. SKIN: No lesions or rashes on exposed skin. PSYCH: unable to evaluate Results & Data Vital Signs (Past 12 Hours) Vital Signs Temp Pulse Resp BP Pulse Ox O2 Del Method FiO2 10/10/22 09:00 37.2 C 109 H 30 H 93 10/10/22 09:00 92/68 L 10/10/22 08:00 37.3 C 114 H 27 H 87 L 10/10/22 08:00 108/72 10/10/22 07:00 37.3 C 106 H 25 H 96 10/10/22 07:00 104/65 10/10/22 09:06 Mechanical Vent 70 10/10/22 08:00 70 10/10/22 07:43 115 H 28 H 95 70 10/10/22 06:00 37.2 C 112 H 26 H 112/76 99 Mechanical Vent 70 10/10/22 05:00 36.8 C 109 H 24 107/66 94 Mechanical Vent 70 10/10/22 04:00 36.8 C 94 H 18 88/59 L 99 Mechanical Vent 70 10/10/22 03:00 36.9 C 98 H 18 81/61 L 94 Mechanical Vent 65 10/10/22 03:20 99 H 22 97 60 10/10/22 02:00 36.7 C 98 H 14 107/68 97 Mechanical Vent 70 10/10/22 01:00 36.9 C 99 H 24 87/59 L 96 Mechanical Vent 70 10/10/22 00:00 37.1 C 104 H 24 88/57 L 99 Mechanical Vent 70 10/10/22 00:00 70 10/09/22 23:00 37.3 C 108 H 23 94/62 L 98 Mechanical Vent 70 10/09/22 22:00 37.7 C H 108 H 22 92/61 L 96 Mechanical Vent 75 10/09/22 22:03 107 H 23 97 75 Laboratory Results Short CBC 10/10/22 Range/Units 04:38 WBC 12.96 H (4.8-10.8) K/ul Hgb 10.7 L (12.0-16.0) g/dl Hct 32.5 L (37.0-47.0) % Plt Count 205 (130-400) K/uL BMP 10/09/22 10/10/22 04:21 04:37 Sodium 132 L 135 L Potassium 4.3 4.1 Chloride 105 105 Carbon Dioxide 18 L 23 BUN 19 19 Creatinine 0.43 L 0.49 L Glucose 104 H 86 Calcium 8.8 9.1 Diagnostic Findings Chest/Abdomen X-ray 10/08/22 10:00 CHEST AND ABDOMEN 2 VIEWS HISTORY: Abdominal pain.. COMPARISON: Chest CTA 09/26/2022.. FINDINGS: There are low lung volumes. No pneumothorax. Tracheostomy tube remains in good position. The cardiac silhouette remains enlarged. There are persistent bibasilar densities, left greater than right. There is mild perihilar interstitial/vascular thickening suggestive of mild congestive change. No pneumoperitoneum. No pneumatosis. A gastrostomy tube is seen within the left upper quadrant. No dilated loops of bowel to suggest an obstruction. No renal or ureteral calculi. Moderate well-formed stool seen within the distal colon/rectum. IMPRESSION: 1. Cardiomegaly with mild pulmonary vascular congestion. This has progressed in the interval. 2. Bibasilar densities persist. This could represent atelectasis or pneumonia. 3. No evidence for a bowel obstruction. 4. Moderate well-formed stool seen within the distal colon/rectum. 4. A tracheostomy tube is in good position. ACT 112: Negative or not required by law. Electronically signed by: Edmund Dorman M.D. 10/08/2022 11:[address] 10/09/22 09:39 CT chest diagnostic w con CLINICAL HISTORY: hypoxia TECHNIQUE: Multidetector row helical CT of the chest was performed with intravenous contrast. Coronal and sagittal reformations were obtained. Automated dose lowering techniques and/or adjustment according to patient size were utili zed for this exam. CT DOSE: 542.36 mGy.cm Comparison: Comparison is made to CTA chest 09/26/2022 FINDINGS: Lungs and pleura: Tracheostomy tube is seen. Multifocal consolidative and groundglass nodules are seen. Small bilateral pleural effusions are seen with underlying atelectasis. Heart and pericardium: Pericardial effusion is again seen. Vessels: Unremarkable. Mediastinum and whitney: Multiple mediastinal lymph nodes are seen measuring up to 14 mm in the left upper paratracheal station. Chest wall and lower neck: Unremarkable. Abdomen: Unremarkable. Bones: Unremarkable. IMPRESSION: 1. Worsening multifocal consolidative and groundglass nodules compatible with pneumonia. Mediastinal lymphadenopathy is seen. 2. Small bilateral pleural effusions with associated atelectasis. 3. Moderate pericardial effusion is unchanged. ACT 112: Negative or not required by law. Electronically signed by: Raudel Rich M.D. 10/09/2022 3:21 PM Medications Administered Current Inpatient Medications Acetaminophen (Acetaminophen Susp 325 Mg/10.15 Ml Udc) 650 mg PO Q6H PRN PRN Reason: fever or mild pain Stop: 11/07/22 14:12 Last Admin: 10/10/22 08:35 Dose: 650 mg Acetylcysteine (Acetylcysteine 20% Inhal Soln 4ml Dispensed By Resp.) 3 ml INH BIDR KENNEDY Stop: 11/07/22 18:59 Last Admin: 10/10/22 07:38 Dose: 3 ml Albuterol (Albuterol 0.083% Nebu Soln 3 Ml Vial) 0 mg NEB QIDR KENNEDY; Protocol Stop: 11/07/22 14:59 Last Admin: 10/10/22 07:38 Dose: 2.5 mg Albuterol (Albuterol 0.083% Nebu Soln 3 Ml Vial) 2.5 mg INH Q4H PRN; Protocol PRN Reason: Wheezing/ shortness of breath Stop: 11/07/22 13:50 Baclofen (Baclofen 20 Mg Tab) 20 mg PEG TID [facility] Stop: 11/07/22 14:29 Last Admin: 10/10/22 08:31 Dose: 20 mg Budesonide (Budesonide 0.5 Mg/2 Ml Vial (Pulmicort)) 0.5 mg INH BIDR [facility] Stop: 11/07/22 18:59 Last Admin: 10/10/22 07:38 Dose: 0.5 mg Cetirizine HCl (Cetirizine Hcl 10 Mg Tablet) 10 mg PO QAM [facility] Stop: 11/08/22 08:59 Last Admin: 10/10/22 08:31 Dose: 10 mg Clonazepam (Clonazepam 0.5 Mg Tab) 0.5 mg PO DAILY PRN PRN Reason: PROLONGED SEIZURES Stop: 11/07/22 14:15 Fluoxetine HCl (Fluoxetine Hcl 20 Mg/5 Ml Udp) 20 mg PO QDL [facility] Stop: 11/08/22 11:29 Last Admin: 10/09/22 12:20 Dose: 20 mg Cefepime HCl 2,000 mg/ (Dextrose) 120 mls @ 40 mls/hr IV Q8H [facility]; Protocol Stop: 10/16/22 16:59 Last Admin: 10/10/22 08:35 Dose: 40 mls/hr Ibuprofen (Ibuprofen 100 Mg/5 Ml Udc) 200 - 400 mg PO Q6H PRN PRN Reason: fever or pain Stop: 11/07/22 13:50 Last Admin: 10/10/22 05:23 Dose: 200 mg Miscellaneous (Icu Protocol For Hyperglycemia) 1 each N/A ACHS [facility] Stop: 10/10/22 16:29 Last Admin: 10/10/22 07:10 Dose: Not Given Morphine Sulfate (Morphine Sulfate 2 Mg/Ml Carp) 2 mg IV Q4 PRN PRN Reason: Moderate Pain (Scale 4, 5, 6) Stop: 10/22/22 13:50 Last Admin: 10/09/22 14:33 Dose: 2 mg Polyethylene Glycol (Polyethylene (Miralax) 17 Gm Pack) 0 gm PEG DAILY [facility] Stop: 11/07/22 14:29 Last Admin: 10/10/22 08:34 Dose: 17 gm Sodium Chloride (Sodium Chlor 7% 4 Ml Neb) 4 ml INH BID PRN PRN Reason: Other Stop: 11/07/22 13:50 Sterile Water (Tube Feeding Water Flush) 120 ml PO QID@07,1130,15,19 [facility] Stop: 11/07/22 14:59 Last Admin: 10/10/22 05:24 Dose: 120 ml Tobramycin Sulfate (Tobramycin 300mg Neb) 300 mg INH BIDR [facility] Stop: 11/07/22 18:59 Last Admin: 10/10/22 07:38 Dose: 300 mg Trazodone HCl (Trazodone Hcl 50 Mg Tab) 50 mg PEG HS [facility] Stop: 11/07/22 20:59 Last Admin: 10/09/22 20:03 Dose: 50 mg Valproic Acid (Valproic Acid 50 Mg/Ml Udp) 550 mg PEG TID [facility] Stop: 11/07/22 14:29 Last Admin: 10/10/22 08:32 Dose: 550 mg Zonisamide (Zonisamide 100mg Capsules) 2 each PO QAM [facility] Stop: 11/08/22 08:59 Last Admin: 10/10/22 08:32 Dose: 2 each Zonisamide (Zonisamide 100mg Capsules) 1 each PO HS [facility] Stop: 11/07/22 20:59 Last Admin: 10/09/22 20:06 Dose: 1 each (2) Bilateral pneumonia Lung location: lower lobe of lung Pneumonia type: due to unspecified organism Qualified Code(s): J18.9 - Pneumonia, unspecified organism (3) Sepsis Sepsis acute organ dysfunction status: unspecified Sepsis type: sepsis due to unspecified organism Qualified Code(s): A41.9 - Sepsis, unspecified organism
[2022-10-10] MEDS: PIPERACILLIN IV SCH ×2 (13:30→20:37)
[2022-10-10] MEDS: TAZOBACTAM IV SCH ×2 (13:30→20:37)
[2022-10-10] MEDS: MoRPHine SULFATE 2 MG/ML CARP IV PRN ×2 (13:58→20:30)
--- NOTE | 2022-10-10 16:56 | Hospitalist Progress Note ---
Date of Service October 10, 2022 Assessment & Plan (1) Acute respiratory failure with hypoxia: Plan: Patient with chronic ventilator use at night trach collar during the day now requiring ventilator throughout the day Concern for sepsis on presentation with leukocytosis tachycardia and hypotension Blood cultures currently pending Bronchoscopy 10/08 with tenaceous secretions removed, BAL sample and started on Cefepime, continues on tobramycin nebulized CT scan of the chest does show small effusion and persistent pulmonary changes consistent with pneumonia We will continue her typical pulmonary support with albuterol nebulizer scheduled and as needed Mucomyst scheduled Pulmicort plus nebulized tobramycin. Patient does use a chest vest and CoughAssist at home Infectious disease consultation recommend changing cefepime to Zosyn therapy order sputum cultureif patient of clinical deterioration. Recommending Ceftolazanetazobactam 3 g IV every 8 (2) Quadriplegic cerebral palsy: Plan: Pt typically with trache and peg tube support bowel regimen with daily miralax continue tube feeds and free water flushes with improvement in hyponatremia patient's been on ventilator throughout the day uses cough assist and chest vest twice a day (3) Seizure disorder: Plan: valproic acid level is slightly elevated, last admission due to meropenem did have elevation of dose for a time, level is 110( high normal is 100)will reduce dose to 500 from 550 level did improve we will follow (4) Allergic rhinitis: Plan: continue claritan Plan patient's hyponatremia is improved continue free water flushes of tube feeds as previous patient remains persistently tachycardic likely her physiology is still under duress we will check inflammatory markers in the morning to trend if improving pt is a conditional code outlook remains Admission and Anticipated Discharge Date Admission Date: October 08, 2022 Subjective patient is nonverbal she remains tachycardic she looks uncomfortable she is low-grade temperatures infectious disease consultation was obtained today patient remains on the ventilator throughout the day when she typically is on a trach collar Physical Exam Physical Exam: patient does awaken to tactile stimulus does look about the room does not follow commands or make purposeful movements Results & Data Results & Data Vital Signs (Past 12 Hours) Vital Signs Temp Pulse Resp BP Pulse Ox Pulse Ox O2 Del Method 10/10/22 16:42 102 H 26 H 96 10/10/22 16:00 99.0 F 102 H 21 94 10/10/22 16:00 97/62 L 10/10/22 16:00 10/10/22 15:00 99.1 F 106 H 20 96 10/10/22 15:00 101/63 10/10/22 14:00 99.0 F 127 H 25 H 92 10/10/22 14:00 100/63 10/10/22 13:00 98.4 F 109 H 28 H 94 10/10/22 13:00 116/71 10/10/22 12:54 117/79 10/10/22 12:54 98.2 F 108 H 31 H 93 10/10/22 12:00 98.4 F 101 H 26 H 96 10/10/22 12:00 92/55 L 10/10/22 11:31 98.4 F 105 H 28 H 92 10/10/22 11:31 105/66 10/10/22 13:00 95 10/10/22 12:00 10/10/22 11:53 97 H 30 H 95 10/10/22 11:00 98.4 F 93 H 25 H 97 10/10/22 11:00 88/63 L 10/10/22 10:00 98.8 F 100 H 21 94 10/10/22 10:00 96/53 L 10/10/22 09:00 99.0 F 109 H 30 H 93 10/10/22 09:00 92/68 L 10/10/22 08:00 99.1 F 114 H 27 H 87 L 10/10/22 08:00 108/72 10/10/22 07:00 99.1 F 106 H 25 H 96 10/10/22 07:00 104/65 10/10/22 09:06 Mechanical Vent 10/10/22 08:00 10/10/22 07:43 115 H 28 H 95 10/10/22 06:00 99.0 F 112 H 26 H 112/76 99 Mechanical Vent 10/10/22 05:00 98.2 F 109 H 24 107/66 94 Mechanical Vent O2 Del Method FiO2 10/10/22 16:42 60 10/10/22 16:00 10/10/22 16:00 10/10/22 16:00 60 10/10/22 15:00 10/10/22 15:00 10/10/22 14:00 10/10/22 14:00 10/10/22 13:00 10/10/22 13:00 10/10/22 12:54 10/10/22 12:54 10/10/22 12:00 10/10/22 12:00 10/10/22 11:31 10/10/22 11:31 10/10/22 13:00 Mechanical Vent 10/10/22 12:00 50 10/10/22 11:53 50 10/10/22 11:00 10/10/22 11:00 10/10/22 10:00 10/10/22 10:00 10/10/22 09:00 10/10/22 09:00 10/10/22 08:00 10/10/22 08:00 10/10/22 07:00 10/10/22 07:00 10/10/22 09:06 70 10/10/22 08:00 70 10/10/22 07:43 70 10/10/22 06:00 70 10/10/22 05:00 70 Laboratory Results reviewed CBC reviewed chemistry reviewed infectious disease consultation personally discussed case with intensive care attending PG Care Time/CCT Total # of Minutes Spent Total Time Spent with Patient: Total time spent is greater than 50% in coordination of care (as documented) at patient's floor/unit and/or counseling patient: Coding Level of Care Code 15819 SUB INP/OBS CARE 2/35MIN Diagnoses Acute respiratory failure with hypoxia J96.01 Quadriplegic cerebral palsy G80.8 Seizure disorder G40.909 Allergic rhinitis J30.9
[2022-10-10] MEDS: traZODone HCL 50 MG TAB PEG SCH (21:14)
[2022-10-11] MEDS: PIPERACILLIN IV SCH ×4 (01:36→19:58)
[2022-10-11] MEDS: TAZOBACTAM IV SCH ×4 (01:36→19:58)
[2022-10-11] MEDS: MoRPHine SULFATE 2 MG/ML CARP IV PRN ×2 (04:27→17:27)
[2022-10-11] MEDS: ACETAMINOPHEN SUSP 325 MG/10.15 ML UDC PO PRN ×3 (05:02→19:58)
[2022-10-11 05:28] LABS: Eosinophils # (auto) 0.06 K/uL (0-0.50); Eosinophils % (auto) 0.7 %; Hematocrit (blood only) 26.6 % (37.0-47.0); Hemoglobin 8.8 g/dl (12.0-16.0); Immature Granulocytes # (auto) 0.13 K/uL (0.01-0.20); Immature Granulocytes % (auto) 1.5 %; Lymphocytes # (auto) 0.32 K/uL (1.2-3.4); Lymphocytes % (auto) 3.6 %; Mean Corpuscular Hemoglobin 32.8 pg (25.0-34.0); Mean Corpuscular Hgb Conc 33.1 g/dL (32.0-36.0); Mean Corpuscular Volume 99.3 fL (80.0-100.0); Mean Platelet Volume 9.5 fL (9.4-12.4); Monocytes # (auto) 0.62 K/uL (0.11-0.59); Monocytes % (auto) 6.9 %; Neutrophils # (auto) 7.82 K/uL (1.40-6.50); Neutrophils % (auto) 87.3 %; Platelet Count 193 K/uL (130-400); RDW Coefficient of Variation 12.5 % (11.5-14.5); RDW Standard Deviation 45.8 fL (36.4-46.3); Red Blood Count 2.68 M/uL (4.20-5.40); White Blood Count 8.95 K/ul (4.8-10.8)
[2022-10-11 05:32] LABS: Anion Gap 8 (3-11); BUN Creatinine Ratio 45.5 (10-20); Blood Urea Nitrogen 15 mg/dl (6-23); Calcium 8.4 mg/dl (8.6-10.3); Carbon Dioxide 23 mmol/L (21-32); Chloride 104 mmol/L (98-107); Est GFR (African American) > 150.0 ml/min; Est GFR (Non-African American) > 150.0 ml/min; Glucose 76 mg/dl (70-99(Fasting)); Magnesium 2.1 mg/dl (1.7-2.4); Phosphorus 4.7 mg/dl (2.5-4.9); Potassium 3.6 mmol/L (3.5-5.1); Sodium 135 mmol/L (136-145)
[2022-10-11 05:49] LABS: C Reactive Protein 37.88 mg/dl (0-0.5)
[2022-10-11] MEDS ORDERED: STAT IV Infusion **Titration per Protocol STA ×2 (06:50→19:36)
[2022-10-11] MEDS ORDERED: dexMEDEtomidine 200 MCG/50 ML BAG IV SCH (07:00)
--- NOTE | 2022-10-11 07:03 | XRay Report ---
XR chest 1V portable HISTORY: 27 years-old Female respiratory failure acute respiratory failure COMPARISON: 10/09/2022, 10/08/2022 TECHNIQUE: AP view of the chest FINDINGS: Tracheostomy cannula overlies the midline. Right-sided PICC distal tip projects over the right atrium . No pneumothorax. Layering pleural effusions with mixed interstitial and alveolar opacities again no brooks. Bones appear grossly intact. Enlargement of the cardiac silhouette IMPRESSION: 1. Enlargement of the cardiac silhouette again noted compatible with the patient's pericardial effusi on seen on the prior chest CT. 2. Small pleural effusions. 3. Mixed interstitial and alveolar opacities are redemonstrated. ACT 112: Negative or not required by law. The above report was generated using voice recognition software. It may contain grammatical, syntax o r spelling errors. Electronically signed by: Ervin Townsend M.D. 10/11/2022 7:00 AM
--- NOTE | 2022-10-11 07:04 | Critical Care Progress Note ---
Date of Service October 11, 2022 Assessment & Plan (1) Sepsis: Plan: Reason Critically Ill: Acute on chronic hypoxic respiratory failure PLAN: Neuro: Cerebral palsy -Continue current antiepileptics: Depakote level reviewed Resp: Acute hypoxic respiratory failure -Status post bronchoscopy 10/08: Light normal dawit -Requiring supplemental support from invasive mechanical ventilator Bilateral pleural effusions -Consideration given to sampling pleural effusions -Continue pulmonary toilet CV: Tachycardia: Chronic Pericardial effusion -Negative troponins and EKG unremarkable previous echo indicated this effusion was smaller than years prior Fluids/Renal: Urine unremarkable, wears diapers chronically Hyponatremia: Improving -Appears to occur during episodes of physiologic stress/infection 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 Febrile illness: infectious disease consult reviewed: consider ceftolozane- tazobactam 3 g IV q8h extended infusion for pseudomonal resistance -Ears and oropharynx had been examined, no evidence of otitis media, pharyngitis clinically -BioFire negative -Respiratory culture: Light normal dawit, tracheal culture obtained and pending -Consideration given to empyema and Cryptogenic organizing pneumonia - Small Pericardial effusion: No real clinical indication for purulent pericarditis - Check MANDO, RF, CPK to r/o autoimmune etiology - Brother recently diagnosed with multiple sclerosis - Send mycoplasma IgG, IgM, urinary legionella - Prolonged QTc: likely secondary to high dose ciprofloxacin - Repeat EKG: last QTc 558, reviewed previous 5 EKG reports patient has not had prolonged QTc previously -Empiric doxycycline x 14 days versus Zithromax for empiric atypical pneumonia coverage -Patient previously on high-dose ciprofloxacin 750mg PO Q8 hours on 09/28/22 for 14 days. Received minimum 10 days with to D/C on admission (10/07 2pm dose given) for long QTc -Leukocytosis: Improving -Converted to Zosyn for pulmonary coverage -Repeat blood cultures and fungal culture obtained today for ongoing fevers -CT scan of the max face and neck with contrast rule out abscess, dental/wisdom teeth impaction -CTA PE protocol chest rule out embolism, general CT scan with contrast reviewed yesterday: Concern for worsening multilobar pneumonia -Consideration given to cryptogenic organizing pneumonia -CTA abdomen pelvis, LFTs pending -Could consider pelvic ultrasound, reported only had 1 menstrual period in lifetime -Doubtful to represent imperforate hymen, cervical stenosis -No obvious cords to suggest septic thrombophlebitis GI/Nutrition: Continue home tube feed formulation Heme: Chronic quadriplegic cerebral palsy, no indication for DVT prophylaxis DVT prophylaxis: Medically contraindicated Endocrine: ICU hyperglycemia protocol Check TSH and T4: Within normal limits Vascular access: Peripheral IVs: Several peripheral IVs have infiltrated may require PICC line placement for secure access - Mother consents to PICC/Midline if PIV access unavailable Code Status: Limited, okay with artificial ventilation no heroics in event of cardiac arrest Disposition: ICU secondary to chronic vent dependence Discussed with mother current plans. Extended radiographic evaluation for source of fever given no obvious clinical source. Previously discussed risks and benefits of permanent vascular access. . 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 CRP and white count have both decreased despite this the patient is still having fevers. During episodes of febrility the patient becomes more irritable and tachycardic and drops her oxygen saturation. Physical Exam Physical Exam: General: Alert. Irritable. Skin: Warm, dry. Head: Atraumatic Ears, nose, mouth and throat: airway patent Cardiovascular: Normal peripheral perfusion, tachycardia Respiratory: Tracheostomy in place, tachypnea, coarse breath sounds Gastrointestinal: Non distended, PEG tube placement Musculoskeletal: Contractures of all 4 extremities Skin: no rash Results & Data Results & Data Vital Signs (Past 12 Hours) Vital Signs Temp Pulse Pulse Resp BP Pulse Ox O2 Del Method 10/11/22 06:15 38.7 C H 10/11/22 06:00 38.5 C H 137 H 22 89 L 10/11/22 05:30 38.1 C H 116 H 25 H 91 10/11/22 05:00 37.8 C H 113 H 29 H 110/73 94 10/11/22 04:00 37.3 C 105 H 22 81/57 L 94 10/11/22 03:00 37.0 C 97 H 19 96/66 L 95 10/11/22 02:00 36.8 C 93 H 17 97/67 L 97 10/11/22 01:00 36.9 C 97 H 25 H 103/82 97 10/11/22 00:00 37.1 C 95 H 19 95/63 L 96 10/11/22 04:01 10/11/22 03:58 94 H 10/11/22 02:31 96 H 20 96 10/11/22 01:06 10/10/22 23:00 37.3 C 95 H 17 92/59 L 96 10/10/22 22:00 37.6 C H 100 H 18 91/59 L 97 10/10/22 21:00 37.6 C H 118 H 28 H 100/74 100 10/10/22 20:00 37.2 C 109 H 22 106/69 100 10/10/22 19:00 37.2 C 101 H 23 94/73 L 85 L 10/10/22 23:13 Mechanical Vent 10/10/22 20:00 10/10/22 22:33 95 H 18 97 10/10/22 19:31 102 H 24 90 10/10/22 19:31 103 H 24 95 Mechanical Vent FiO2 10/11/22 06:15 10/11/22 06:00 10/11/22 05:30 10/11/22 05:00 10/11/22 04:00 10/11/22 03:00 10/11/22 02:00 10/11/22 01:00 10/11/22 00:00 10/11/22 04:01 60 10/11/22 03:58 10/11/22 02:31 60 10/11/22 01:06 65 10/10/22 23:00 10/10/22 22:00 10/10/22 21:00 10/10/22 20:00 10/10/22 19:00 10/10/22 23:13 65 10/10/22 20:00 65 10/10/22 22:33 65 10/10/22 19:31 70 10/10/22 19:31 70 Critical Care Results & Data Vital Signs (Past 12 Hours) Vital Signs Temp Pulse Pulse Resp BP Pulse Ox O2 Del Method 10/11/22 06:15 38.7 C H 10/11/22 06:00 38.5 C H 137 H 22 89 L 10/11/22 05:30 38.1 C H 116 H 25 H 91 10/11/22 05:00 37.8 C H 113 H 29 H 110/73 94 10/11/22 04:00 37.3 C 105 H 22 81/57 L 94 10/11/22 03:00 37.0 C 97 H 19 96/66 L 95 10/11/22 02:00 36.8 C 93 H 17 97/67 L 97 10/11/22 01:00 36.9 C 97 H 25 H 103/82 97 10/11/22 00:00 37.1 C 95 H 19 95/63 L 96 10/11/22 04:01 10/11/22 03:58 94 H 10/11/22 02:31 96 H 20 96 10/11/22 01:06 10/10/22 23:00 37.3 C 95 H 17 92/59 L 96 10/10/22 22:00 37.6 C H 100 H 18 91/59 L 97 10/10/22 21:00 37.6 C H 118 H 28 H 100/74 100 10/10/22 20:00 37.2 C 109 H 22 106/69 100 10/10/22 23:13 Mechanical Vent 10/10/22 20:00 10/10/22 22:33 95 H 18 97 10/10/22 19:31 102 H 24 90 10/10/22 19:31 103 H 24 95 Mechanical Vent FiO2 10/11/22 06:15 10/11/22 06:00 10/11/22 05:30 10/11/22 05:00 10/11/22 04:00 10/11/22 03:00 10/11/22 02:00 10/11/22 01:00 10/11/22 00:00 10/11/22 04:01 60 10/11/22 03:58 10/11/22 02:31 60 10/11/22 01:06 65 10/10/22 23:00 10/10/22 22:00 10/10/22 21:00 10/10/22 20:00 10/10/22 23:13 65 10/10/22 20:00 65 10/10/22 22:33 65 10/10/22 19:31 70 10/10/22 19:31 70 Lab & Micro Results (Past 24 Hours) RBC 2.68 M/uL (4.20-5.40) L 10/11/22 WBC 8.95 K/ul (4.8-10.8) 10/11/22 Hgb 8.5 g/dl (12.0-16.0) L 10/11/22 Hct 25.3 % (37.0-47.0) L 10/11/22 MCV 99.3 fL (80.0-100.0) 10/11/22 MCH 32.8 pg (25.0-34.0) 10/11/22 MCHC 33.1 g/dL (32.0-36.0) 10/11/22 RDW Standard Deviation 45.8 fL (36.4-46.3) 10/11/22 RDW Coefficient of Variation 12.5 % (11.5-14.5) 10/11/22 Plt Count 193 K/uL (130-400) 10/11/22 MPV 9.5 fL (9.4-12.4) 10/11/22 Neutrophils (%) (Auto) 87.3 % 10/11/22 Lymphocytes (%) (Auto) 3.6 % 10/11/22 Monocytes # (Auto) 0.62 K/uL (0.11-0.59) H 10/11/22 Eosinophils # (Auto) 0.06 K/uL (0-0.50) 10/11/22 Immature Granulocyte % (Auto) 1.5 % 10/11/22 Neutrophils # (Auto) 7.82 K/uL (1.40-6.50) H 10/11/22 Lymphocytes # (Auto) 0.32 K/uL (1.2-3.4) L 10/11/22 Monocytes # (Auto) 0.62 K/uL (0.11-0.59) H 10/11/22 Eosinophils # (Auto) 0.06 K/uL (0-0.50) 10/11/22 Basophils # (Auto) 0.00 K/uL (0-0.2) 10/11/22 Immature Granulocyte # (Auto) 0.13 K/uL (0.01-0.20) 3 Na 135 mmol/L (136-145) L 10/11/22 K 3.6 mmol/L (3.5-5.1) 10/11/22 Cl 104 mmol/L (98-107) 10/11/22 CO2 23 mmol/L (21-32) 10/11/22 Anion Gap 8 (3-11) 10/11/22 BUN 15 mg/dl (6-23) 10/11/22 Creatinine 0.33 mg/dl (0.6-1.2) L 10/11/22 Estimated GFR ( Amer) > 150.0 ml/min 10/11/22 Estimated GFR (Non-Af Amer) > 150.0 ml/min 10/11/22 BUN/Creatinine Ratio 45.5 (10-20) H 10/11/22 Glu 76 mg/dl (70-99(Fasting)) 10/11/22 Ca 8.4 mg/dl (8.6-10.3) L 10/11/22 Phosphorus Level 4.7 mg/dl (2.5-4.9) 10/11/22 Total Bilirubin 0.4 mg/dl (0.2-1.0) 10/11/22 Direct Bilirubin 0.1 mg/dl (0-0.2) 10/11/22 AST 13 U/L (13-39) 10/11/22 ALT 8 U/L (7-52) 10/11/22 Alkaline Phosphatase 61 U/L (34-104) 10/11/22 TP 6.2 gm/dl (6.0-8.3) 10/11/22 Albumin 3.1 gm/dl (3.4-5.0) L 10/11/22 Mg 2.1 mg/dl (1.7-2.4) 10/11/22 04:33 Calcium Level 8.4 mg/dl (8.6-10.3) L 10/11/22 04:33 Microbiology 10/08/22 14:40 Acid Fast Bacilli Smear - Final Bronch Wash,Left Lower Lobe 10/08/22 10:24 Aerobic Blood Culture - Preliminary Blood No growth in Aerobic bottle after 48 hours. Anaerobic Blood Culture - Final 10/08/22 10:24 Aerobic Blood Culture - Preliminary Blood No growth in Aerobic bottle after 48 hours. Anaerobic Blood Culture - Preliminary No growth in Anaerobic bottle after 48 hours. 10/08/22 14:40 Gram Stain - Final Bronch Wash,Left Lower Lobe Bronchial Culture - Final Light normal dawit. Diagnostic Findings (Past 24 Hours) Chest X-Ray 10/11/22 06:00 XR chest 1V portable HISTORY: 27 years-old Female respiratory failure acute respiratory failure COMPARISON: 10/09/2022, 10/08/2022 TECHNIQUE: AP view of the chest FINDINGS: Tracheostomy cannula overlies the midline. Right-sided PICC distal tip projects over the right atrium. No pneumothorax. Layering pleural effusions with mixed interstitial and alveolar opacities again noted. Bones appear grossly intact. Enlargement of the cardiac silhouette IMPRESSION: 1. Enlargement of the cardiac silhouette again noted compatible with the patient's pericardial effusion seen on the prior chest CT. 2. Small pleural effusions. 3. Mixed interstitial and alveolar opacities are redemonstrated. ACT 112: Negative or not required by law. The above report was generated using voice recognition software. It may contain grammatical, syntax or spelling errors. Electronically signed by: Ervin Townsend M.D. 10/11/2022 7:00 AM I & O Totals 24 Hours 10/10/22 10/11/22 10/12/22 06:59 06:59 06:59 Intake Total 780 / 780 600 / 600 Output Total 275 / 275 Balance 505 / 505 600 / 600 Cumulative 10/08/22 08:38 thru 10/11/22 06:09 Intake Total 3550 Output Total 850 Balance 2700 RT Ventilator Mngmt (Last Documented) Ventilator Ordered Settings Ventilator Support Mode SIMV 10/11/22 04:01 Respiratory Rate 22 10/11/22 06:00 Ventilator Tidal Volume 350 10/11/22 04:01 Setting Minute Ventilation 6.2 10/11/22 02:31 Ventilator Positive Pressure 5 10/11/22 04:01 Support Setting Positive End Expiratory 5 10/11/22 04:01 Pressure Fraction of Inspired Oxygen 60 10/11/22 04:01 Machine Comment fio2 decreased to 60% due to Spo2 10/11/22 02:31 96% Ventilator - PT Measurements Respiratory Rate 22 Exhaled Tidal Volume 346 Minute Ventilation 6.2 Peak Inspiratory Airway 14 Pressure Plateau Pressure 19.6 Respiratory Cycle Inspiratory: 1:4.8 Expiratory Ratio Inspiratory Phase Time 0.7 End-Tidal CO2 40 Static Lung Compliance 23.90 Dynamic Lung Compliance 38.44 Normal Static Lung Compliance 48.00 Patient Measurements Comment Patient placed on ventilator SIMV for rest at this time due to desaturations on atc. Patient's mother will be arriving this evening to inform RTs and doctors of patient's home vent settings for HS per RN. 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
[2022-10-11] MEDS: VALPROIC ACID 50 MG/ML UDP PEG SCH ×3 (07:37→19:53)
[2022-10-11] MEDS: CETIRIZINE HCL 10 MG TABLET PO SCH (07:37)
[2022-10-11] MEDS: BACLOFEN 20 MG TAB PEG SCH ×3 (07:37→19:53)
[2022-10-11] MEDS: ZONISAMIDE 100 MG PO SCH ×2 (07:38→19:55)
[2022-10-11] MEDS: TUBE FEEDING WATER FLUSH PO SCH ×4 (07:38→19:54)
[2022-10-11] MEDS: IBUPROFEN 100 MG/5 ML UDC PO PRN ×2 (07:39→17:05)
[2022-10-11 07:52] LABS: Hematocrit (blood only) 25.3 % (37.0-47.0); Hemoglobin 8.5 g/dl (12.0-16.0); Reticulocyte % 3.1 % (0.5-2.0); Reticulocytes # 0.08 10^6/uL (0.02-0.10)
[2022-10-11] MEDS: ACETYLCYSTEINE 20% INHAL SOLN 4ML ***DISPENSED BY RESP. INH SCH ×2 (08:08→20:43)
[2022-10-11 08:09] LABS: Albumin Level 3.1 gm/dl (3.4-5.0); Bilirubin Direct 0.1 mg/dl (0-0.2); Bilirubin,Total 0.4 mg/dl (0.2-1.0); Total Protein 6.2 gm/dl (6.0-8.3)
[2022-10-11] MEDS: ALBUTEROL 0.083% NEBU SOLN 3 ML VIAL NEB SCH ×4 (08:09→19:10)
[2022-10-11] MEDS: BUDESONIDE 0.5 MG/2 ML VIAL (PULMICORT) INH SCH ×2 (08:09→19:10)
[2022-10-11] MEDS: TOBRAMYCIN 300MG NEB INH SCH ×2 (08:10→20:44)
[2022-10-11] MEDS ORDERED: DOXYCYCLINE HYCLATE 100 MG CAP PO STA (09:12)
[2022-10-11] MEDS ORDERED: IOVERSOL 350 MG 125mL Prefilled Syringe IV ONE (09:36)
[2022-10-11] MEDS: POLYETHYLENE (MIRALAX) 17 GM PACK PEG SCH (10:34)
--- NOTE | 2022-10-11 12:12 | CT Scan Report ---
CT soft tissue neck w con, CT angio chest PE protocol, CT abd pelvis IV con only HISTORY: 27 years-old Female eval for infective source acute sepsis COMPARISON: Chest CT 10/09/2022, CT soft tissue neck 09/26/2022 TECHNIQUE: Multiple axial CT images of the soft tissues of the neck with CT abdomen and pelvis and CT A of the chest. 115 mL Optiray 350 was utilized. 3-D coronal and sagittal maps were obtained and sent for review. All measurements were obtained according to NASCET criteria. A dose lowering technique w as used consistent with the principals of ALARA. FINDINGS: SOFT TISSUE NECK: Persistent dilation of the posterior horns of the lateral ventricles. The study is motion degraded. A tracheostomy cannula is in place which appears to be in satisfactory positioning with tracheal secre tions. Nonspecific paratracheal and upper mediastinal lymphadenopathy with lymph nodes measuring up t o 1.3 x 1.3 cm subcentimeter supraclavicular lymph nodes. The airway appears patent. No parapharyngea l inflammation or fluid collections. With the Unremarkable vascular fractures. Polypoid mucosal thick ening of the paranasal sinuses. No acute fracture identified. Levoscoliosis of the cervical spine may be positional. Unremarkable thyroid. CTA CHEST: The heart is normal in size. Persistent moderate-sized pericardial effusion measuring up to 1.2 cm po steriorly, previously 1.6 cm. 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 No t horacic aortic aneurysm or dissection. No pulmonary emboli identified. CT CHEST: Unremarkable thyroid. Unchanged appearance of the mediastinal and hilar lymphadenopathy with lymph no pavan measuring up to approximately 10 mm. Cxdkv-gd-[id number] sized pleural effusions, stable on the lef t and mildly increased in size on the right. Dependent bibasilar prominent atelectasis. Interlobular septal thickening with additional interposed patchy multilobar distribution of bilateral groundglass opacities which have mildly progressed. Partial collapse of the lower lobes, left greater than right. Mild chronic endobronchial secretions. No pneumothorax. Unremarkable soft tissues. No acute fracture identified. CT ABDOMEN AND PELVIS: No free air. The spleen is upper limits of normal in size. Unremarkable pancreas, adrenal glands and liver. Distended gallbladder with nonspecific wall thickening and pericholecystic edema. Patent abel l vein. Unremarkable kidneys. Urinary bladder wall thickening with partial distention. Aorta and IVC are unremarkable. Gastrostomy tube is in place. Rectal catheter. No bowel obstruction or bowel wall t hickening. The visualized appendix is noninflamed. Trace ascites. Nonspecific subcutaneous edema with in the left thigh. No acute fracture. IMPRESSION: 1. Cardiomegaly with pericardial effusion, mildly decreased in size from the 10/09/2022 exam. 2. Small to moderate pleural effusions with bibasilar atelectasis and partial collapse of the lower l obes. 3. Progressive patchy bilateral airspace opacities suggestive of worsening multifocal pneumonia. 4. Mild lymphadenopathy of the neck and chest as above is likely reactive. 5. Distended gallbladder with wall thickening and mild pericholecystic fluid. Correlation with ultras ound recommended. 6. No pulmonary emboli. 7. Normal appendix. 8. Additional findings as above. ACT 112: Negative or not required by law. The above report was generated using voice recognition software. It may contain grammatical, syntax o r spelling errors. Electronically signed by: Ervin Townsend M.D. 10/11/2022 12:10 PM
--- NOTE | 2022-10-11 12:12 | CT Scan Report ---
CT facial bones w con HISTORY: 27 years-old Female rule out impacted wisdom teeth/sinuses acute sepsis COMPARISON: CT soft tissue neck of same day TECHNIQUE: Multiple axial CT images of the maxillofacial bones were obtained following the intravenou s administration of 115 mL Optiray 350. A dose lowering technique was used consistent with the princi pals of DEEPALI. FINDINGS: Partially imaged dilation of the lateral ventricles. Unremarkable appearance of the soft tissues. No fluid collections or significant inflammatory changes. Unremarkable appearance of the parotid, subman dibular and thyroid glands. Subcentimeter submandibular and cervical chain lymph nodes measure up to 7 mm, likely reactive. Unremarkable appearance of the vasculature of the neck with dominant left vert ebral artery. Mastoid air cells and middle ear cavities are clear. Minimal polypoid mucosal thickening in the left maxillary sinus. No osseous erosive changes. Unerupted bilateral second and third maxillary molars wi th unerupted bilateral mandibular third molars. No periapical cysts identified. IMPRESSION: 1. No acute inflammatory changes or fluid collections identified. 2. Subcentimeter cervical chain lymphadenopathy is likely benign. 3. Partially imaged dilation of the lateral ventricles, possibly on a chronic basis. Correlate with p rior imaging. ACT 112: Negative or not required by law. The above report was generated using voice recognition software. It may contain grammatical, syntax o r spelling errors. Electronically signed by: Ervin Townsend M.D. 10/11/2022 12:10 PM
--- NOTE | 2022-10-11 14:42 | Ultrasound Report ---
ABDOMINAL ULTRASOUND, RIGHT UPPER QUADRANT HISTORY: Acute right upper quadrant abdominal pain r/o cholecytitis. COMPARISON: CT abdomen and pelvis 10/11/2022 FINDINGS: Pancreas: The pancreas is mostly obscured by bowel gas. Liver: 16.6 cm in length. Trace perihepatic ascites. Gallbladder: The bladder is distended measuring up to 9 cm demonstrating mild layering sludge without shadowing cholelithiasis identified. Borderline gallbladder wall thickening measuring 3 mm. Patient experienced positive sonographic Watson sign. CBD: 0.3 cm. Right kidney: No hydronephrosis. IMPRESSION: 1. Distended gallbladder with layering sludge, borderline gallbladder wall thickening and pericholecy stic edema without shadowing cholelithiasis. Finds are equivocal for acute cholecystitis and correlat ion with nuclear medicine hepatobiliary scan recommended. 2. No biliary ductal dilation. ACT 112: Negative or not required by law. Electronically signed by: Ervin Townsend M.D. 10/11/2022 2:40 PM
[2022-10-11] MEDS ORDERED: PATIENT'S OWN ENTERAL FEEDING PEG SCH (15:30)
[2022-10-11] MEDS: PATIENT'S OWN ENTERAL FEEDING PEG SCH ×2 (16:02→19:55)
--- NOTE | 2022-10-11 16:17 | Surgery Consultation ---
Date of Consultation October 11, 2022 Assessment & Plan (1) Cholecystitis without calculus: Her CT images and results were personally viewed by myself She did have an ultrasound as well that did not reveal any cholelithiasis and equivocal findings for cholecystitis Certainly a calculus cholecystitis is most common in bedbound ICU patients which is consistent with her clinical picture She has tenderness in that area on physical exam We will continue her IV antibiotics and HIDA scans been ordered for Thursday If the HIDA scan is positive would recommend percutaneous cholecystostomy tube as cholecystectomy would be high risk in this patient We will continue to follow History of Present Illness Reason for Consultation: Acute cholecystitis Attending Physician: Randy Morin MD History of Present Illness Is a 27-year-old female with a history of CP and nonverbal who was admitted 3 days ago to the ICU with sepsis. The entire history is taken from the chart and the ICU attending and nursing staff due to the patient's nonverbal history. While looking for a source of her sepsis CT abdomen pelvis revealed possible acute cholecystitis as well as an ultrasound. We were consulted for further treatment plan. The patient did have some worsening pain according to the mother which was new. No nausea or vomiting. Has been tolerating tube feeds. Allergies Allergy/AdvReac Type Severity Reaction Status Date / Time No Known Allergies Allergy Verified 03/21/22 10:15 Home Medications Medication Instructions Recorded Confirmed Type food supplemt, lactose-reduced 1.5 ea PO QID@07,1130,,07/28/18 10/08/22 History 0.04 gram-1 kcal/mL oral liquid (Boost) water 120 ea PO QID@07,1130,,07/28/18 10/08/22 History acetaminophen 160 mg/5 mL oral 640 mg (20 mL) PO Q6H PRN fever or 12/21/18 10/08/22 Rx liquid pain #473 mL ibuprofen 100 mg/5 mL oral See Rx Instructions PO Q6H PRN 12/21/18 10/08/22 Rx suspension fever or pain #473 mL disposable gloves #100 ea 05/12/19 03/21/22 Rx incontinence pad, liner, disp #20 ea 05/12/19 03/21/22 Rx Miscellaneous Medical Supply #1 ea 02/22/20 03/21/22 Rx (Hospital Bed) nut.tx.,elemental,upmyihe-rdyd-nqk 1 ea feeding tube DAILY@1100 08/04/20 10/08/22 History 14 gram-230 kcal/45 mL liquid pkt (Xtracal Plus) nebulizers #1 ea 11/01/20 03/21/22 Rx miscellaneous medical supply 1 ea miscellaneous ONCE #1 ea 12/06/20 03/21/22 Rx miscellaneous medical supply 1 ea miscellaneous ONCE #1 ea 12/06/20 03/21/22 Rx incontinence pad, liner, disp #75 ea 01/03/21 03/21/22 Rx miscellaneous medical supply 1 ea miscellaneous ONCE #180 ea 01/03/21 03/21/22 Rx miscellaneous medical supply #30 ea 01/31/21 03/21/22 Rx ([place] [facility]) cetirizine 10 mg tablet 10 mg feeding tube QAM #90 tabs 11/29/21 10/08/22 Rx polyethylene glycol 3350 17 See Rx Instructions .Route 11/29/21 10/08/22 Rx gram/dose oral powder .COMPLEX #1,530 grams trazodone 50 mg tablet 50 mg feeding tube HS #90 tabs 11/29/21 10/08/22 Rx Miscellaneous Pulmonary Supply #1 ea 12/23/21 03/21/22 Rx clonazepam 0.5 mg disintegrating 0.5 mg feeding tube DIRECTED 01/06/22 10/08/22 Rx tablet PRN PROLONGED SEIZURES #30 tabs diaper,brief,adult,disposable (Day #180 ea 03/25/22 Rx and Night Brief, Large) albuterol sulfate 2.5 mg/3 mL 2.5 mg (3 mL) inhalation Q4H PRN 04/30/22 10/08/22 Rx (0.083 %) solution for nebulization Wheezing/ shortness of breath #540 mL acetylcysteine 200 mg/mL (20 %) 3 ml inhalation BID #100 mL 06/12/22 10/08/22 Rx solution baclofen 20 mg tablet 20 mg feeding tube TID 30 days #90 08/13/22 10/08/22 Rx tabs fluoxetine 20 mg tablet 20 mg feeding tube QDL #30 tabs 08/13/22 10/08/22 Rx zonisamide 100 mg capsule 200 mg feeding tube .COMPLEX 30 06/21/23 08/16/23 Rx days #90 caps budesonide 0.5 mg/2 mL suspension 0.5 mg (2 mL) inhalation BID #120 08/18/22 10/08/22 Rx for nebulization mL sodium chloride 7 % for 4 ml inhalation BID PRN Other 09/26/22 10/08/22 History nebulization tobramycin with nebulizer 300 mg/5 300 mg inhalation DIRECTED 09/26/22 10/08/22 History mL solution for nebulization ciprofloxacin HCl 750 mg tablet 750 mg feeding tube Q8H #36 tabs 09/28/22 10/08/22 Rx albuterol sulfate 2.5 mg/3 mL See Rx Instructions .Route .COMPLEX 10/08/22 10/08/22 History (0.083 %) solution for nebulization valproic acid (as sodium salt) 250 550 mg feeding tube TID 10/08/22 10/08/22 History mg/5 mL oral solution Patient History Medical History Abnormal LFTs Achromobacter pneumonia Acute on chronic respiratory failure with hypoxemia Allergic rhinitis Chronic respiratory failure with hypoxia and hypercapnia Cortical blindness Depression with anxiety Hypotension, chronic Insomnia Mucus plugging of bronchi Multiple 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 Seizure disorder Sepsis Thrombocytopenia Thrombocytopenia Transaminitis Surgical History History of tracheostomy #6 [place] 09/10/2020 S/P percutaneous endoscopic gastrostomy (PEG) tube placement Family History Brother Asthma Other Coronary heart disease Family history non-contributory Hypertension Social History Smoking Status: Never smoker Second Hand Exposure: No; Do You Dip or Chew Tobacco: No; Hx Alcohol Use: No Hx Substance Use: No Preferred Language: Cymraes Communication Ability: Impaired Communication Ability Comment: 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 Personal Property Required: No Beliefs That Will Affect Care: None marital status: Single Current Living Situation: Family Current Living Situation Comment: parent Feels Safe at Home: Yes Assistive Devices: Hospital Bed, Lift Chair and Other Review of Systems Review of Systems: Unobtainable due to mental health condition and Unobtainable due to cognitive status Physical Exam Constitutional: WD/WN, vitals as above Eyes: PERRL, conjunctivae normal, anicteric sclerae ENMT: external ear and nose normal, oropharynx normal Neck: Trach in place Respiratory: On ventilator Cardiovascular: RRR, no murmur, no edema Gastrointestinal (Abdomen): Inspection/Auscultation: abdomen normal to inspection Percussion/Palpation: + abdomen tender (Right upper quadrant) and abdomen soft; no guarding PEG tube in place Skin: no rashes, warm and dry Results & Data Vital Signs (Past 12 Hours) Vital Signs Temp Pulse Resp BP Pulse Ox Pulse Ox O2 Del Method 10/11/22 14:52 99 H 25 H 96 10/11/22 13:00 37.5 C 93 H 20 99 10/11/22 13:00 83/54 L 10/11/22 12:00 37.5 C 91 H 21 99 10/11/22 11:46 93/55 L 10/11/22 11:46 37.6 C H 94 H 20 99 10/11/22 11:00 37.6 C H 96 H 20 98 10/11/22 10:47 37.8 C H 98 H 22 98 10/11/22 10:47 85/53 L 10/11/22 13:00 99 10/11/22 12:00 10/11/22 10:07 78/45 L 10/11/22 10:07 37.9 C H 91 H 20 96 10/11/22 10:00 37.9 C H 92 H 20 95 10/11/22 10:00 79/44 L 10/11/22 09:51 38.0 C H 96 H 23 93 10/11/22 09:51 78/45 L 10/11/22 09:00 38.2 C H 100 H 21 94 10/11/22 09:00 93/66 L 10/11/22 08:00 38.3 C H 113 H 22 94 10/11/22 08:00 98/74 L 10/11/22 07:00 38.5 C H 113 H 26 H 96 10/11/22 08:00 Mechanical Vent 10/11/22 08:00 10/11/22 10:19 97 H 23 92 10/11/22 08:10 113 H 25 H 95 10/11/22 06:15 38.7 C H 10/11/22 06:00 38.5 C H 137 H 22 89 L 10/11/22 05:30 38.1 C H 116 H 25 H 91 10/11/22 05:00 37.8 C H 113 H 29 H 110/73 94 O2 Del Method FiO2 10/11/22 14:52 60 10/11/22 13:00 10/11/22 13:00 10/11/22 12:00 10/11/22 11:46 10/11/22 11:46 10/11/22 11:00 10/11/22 10:47 10/11/22 10:47 10/11/22 13:00 Mechanical Vent 10/11/22 12:00 60 10/11/22 10:07 10/11/22 10:07 10/11/22 10:00 10/11/22 10:00 10/11/22 09:51 10/11/22 09:51 10/11/22 09:00 10/11/22 09:00 10/11/22 08:00 10/11/22 08:00 10/11/22 07:00 10/11/22 08:00 10/11/22 08:00 60 10/11/22 10:19 60 10/11/22 08:10 60 10/11/22 06:15 10/11/22 06:00 10/11/22 05:30 10/11/22 05:00 PG Care Time/CCT Total # of Minutes Spent Total Time Spent with Patient: Total time spent is greater than 50% in coordination of care (as documented) at patient's floor/unit and/or counseling patient: Coding Level of Care Code 06424 INT INP/OBS CARE MIN Diagnoses Cholecystitis without calculus K81.9
--- NOTE | 2022-10-11 17:00 | Hospitalist Progress Note ---
Date of Service October 11, 2022 Assessment & Plan (1) Acute respiratory failure with hypoxia: Plan: Patient with chronic ventilator use at night trach collar during the day now requiring ventilator throughout the day Concern for sepsis on presentation with leukocytosis tachycardia and hypotension Blood cultures currently pending initial concerns were focused pulmonary as she has had issues with resistant Pseudomonas in the past subsequently we pursued a bronchoscopy with some mucus removed and cultures obtained. Initially was placed on cefepime transition to Zosyn per infectious disease recommendation CT scan of head neck chest abdomen pelvis may suggest acalculus cholecystitis however there is also comments on progression of multifocal pneumonia doxycycline was added for atypical coverage. General surgery did see and are ordering HIDA scan for 10/13 our first possible availability(lft are normal today) We will continue her typical pulmonary support with albuterol nebulizer scheduled and as needed Mucomyst scheduled Pulmicort plus nebulized tobramycin. Patient does use a chest vest and CoughAssist at home Infectious disease consultation recommend changing cefepime to Zosyn therapy order sputum cultureif patient of clinical deterioration. Recommending Ceftolazanetazobactam 3 g IV every 8 (2) Quadriplegic cerebral palsy: Plan: Pt typically with trache and peg tube support bowel regimen with daily miralax continue tube feeds and free water flushes with improvement in hyponatremia patient's been on ventilator throughout the day uses cough assist and chest vest twice a day (3) Seizure disorder: Plan: valproic acid level is slightly elevated, last admission due to meropenem did have elevation of dose for a time, level is 110( high normal is 100)will reduce dose to 500 from 550 level did improve we will follow (4) Allergic rhinitis: Plan: continue claritan Plan patient's hyponatremia is improved continue free water flushes of tube feeds as previous patient remains persistently tachycardic likely her physiology is still under duress we will check inflammatory markers in the morning to trend if improving pt is a conditional code outlook remains Admission and Anticipated Discharge Date Admission Date: October 08, 2022 Subjective patient was irritable overnight started on Precedex therapy she seems more calm to examination however it does make it more challenging to try to localize any area to both areas of her physical body Physical Exam Physical Exam: patient does awaken to tactile stimulus does look about the room does not foll ow commands or make purposeful movements examination of her abdomen is difficult due to her partially contracted state I did not notice any localized or focal discomfort on examination Results & Data Results & Data Vital Signs (Past 12 Hours) Vital Signs Temp Pulse Resp BP Pulse Ox Pulse Ox O2 Del Method 10/11/22 16:00 99.1 F 98 H 21 96 10/11/22 16:00 87/53 L 10/11/22 15:00 99.5 F 101 H 22 96 10/11/22 15:00 91/54 L 10/11/22 14:00 99.3 F 95 H 22 97 10/11/22 14:00 86/55 L 10/11/22 13:40 99.3 F 100 H 28 H 97 10/11/22 13:40 97/62 L 10/11/22 16:00 10/11/22 14:52 99 H 25 H 96 10/11/22 13:00 99.5 F 93 H 20 99 10/11/22 13:00 83/54 L 10/11/22 12:00 99.5 F 91 H 21 99 10/11/22 11:46 93/55 L 10/11/22 11:46 99.7 F H 94 H 20 99 10/11/22 11:00 99.7 F H 96 H 20 98 10/11/22 10:47 100.0 F H 98 H 22 98 10/11/22 10:47 85/53 L 10/11/22 13:00 99 10/11/22 12:00 10/11/22 10:07 78/45 L 10/11/22 10:07 100.2 F H 91 H 20 96 10/11/22 10:00 100.2 F H 92 H 20 95 10/11/22 10:00 79/44 L 10/11/22 09:51 100.4 F H 96 H 23 93 10/11/22 09:51 78/45 L 10/11/22 09:00 100.8 F H 100 H 21 94 10/11/22 09:00 93/66 L 10/11/22 08:00 100.9 F H 113 H 22 94 10/11/22 08:00 98/74 L 10/11/22 07:00 101.3 F H 113 H 26 H 96 10/11/22 08:00 Mechanical Vent 10/11/22 08:00 10/11/22 10:19 97 H 23 92 08/19/23 08:10 113 H 25 H 95 10/11/22 06:15 101.7 F H 10/11/22 06:00 101.3 F H 137 H 22 89 L 10/11/22 05:30 100.6 F H 116 H 25 H 91 10/11/22 05:00 100.0 F H 113 H 29 H 110/73 94 O2 Del Method FiO2 10/11/22 16:00 10/11/22 16:00 10/11/22 15:00 10/11/22 15:00 10/11/22 14:00 10/11/22 14:00 10/11/22 13:40 10/11/22 13:40 10/11/22 16:00 60 10/11/22 14:52 60 10/11/22 13:00 10/11/22 13:00 10/11/22 12:00 10/11/22 11:46 10/11/22 11:46 10/11/22 11:00 10/11/22 10:47 10/11/22 10:47 10/11/22 13:00 Mechanical Vent 10/11/22 12:00 60 10/11/22 10:07 10/11/22 10:07 10/11/22 10:00 10/11/22 10:00 10/11/22 09:51 10/11/22 09:51 10/11/22 09:00 10/11/22 09:00 10/11/22 08:00 10/11/22 08:00 10/11/22 07:00 10/11/22 08:00 10/11/22 08:00 60 10/11/22 10:19 60 10/11/22 08:10 60 10/11/22 06:15 10/11/22 06:00 10/11/22 05:30 10/11/22 05:00 Laboratory Results reviewed CBC reviewed chemistry reviewed CRP reviewed multiple images obtained today PG Care Time/CCT Total # of Minutes Spent Total Time Spent with Patient: Total time spent is greater than 50% in coordination of care (as documented) at patient's floor/unit and/or counseling patient: Coding Level of Care Code 46270 SUB INP/OBS CARE 3/50MIN Diagnoses Acute respiratory failure with hypoxia J96.01 Quadriplegic cerebral palsy G80.8 Seizure disorder G40.909 Allergic rhinitis J30.9
[2022-10-11] MEDS ORDERED: LORazepam 2 MG/1 ML VIAL IV STA (19:27)
[2022-10-11] MEDS ORDERED: LORazepam 2 MG/1 ML VIAL ONE (19:29)
[2022-10-11] MEDS: dexMEDEtomidine 200 MCG/50 ML BAG IV SCH (19:43)
[2022-10-11] MEDS: traZODone HCL 50 MG TAB PEG SCH (19:53)
[2022-10-11] MEDS: DOXYCYCLINE HYCLATE 100 MG CAP PO SCH (19:53)
[2022-10-12] MEDS: TAZOBACTAM IV SCH ×2 (02:40→07:34)
[2022-10-12] MEDS: PIPERACILLIN IV SCH ×2 (02:40→07:34)
[2022-10-12 05:29] LABS: Eosinophils # (auto) 0.05 K/uL (0-0.50); Eosinophils % (auto) 0.9 %; Hematocrit (blood only) 23.2 % (37.0-47.0); Hemoglobin 7.6 g/dl (12.0-16.0); Immature Granulocytes # (auto) 0.01 K/uL (0.01-0.20); Immature Granulocytes % (auto) 0.2 %; Lymphocytes # (auto) 0.36 K/uL (1.2-3.4); Lymphocytes % (auto) 6.2 %; Mean Corpuscular Hemoglobin 31.9 pg (25.0-34.0); Mean Corpuscular Hgb Conc 32.8 g/dL (32.0-36.0); Mean Corpuscular Volume 97.5 fL (80.0-100.0); Mean Platelet Volume 9.7 fL (9.4-12.4); Monocytes # (auto) 0.52 K/uL (0.11-0.59); Monocytes % (auto) 8.9 %; Neutrophils # (auto) 4.88 K/uL (1.40-6.50); Neutrophils % (auto) 83.8 %; Platelet Count 175 K/uL (130-400); RDW Coefficient of Variation 13.1 % (11.5-14.5); RDW Standard Deviation 46.6 fL (36.4-46.3); Red Blood Count 2.38 M/uL (4.20-5.40); White Blood Count 5.82 K/ul (4.8-10.8)
[2022-10-12 05:49] LABS: RBC Morphology Unremarkable
[2022-10-12 05:52] LABS: Anion Gap 7 (3-11); BUN Creatinine Ratio 37.1 (10-20); Blood Urea Nitrogen 13 mg/dl (6-23); Carbon Dioxide 25 mmol/L (21-32); Chloride 103 mmol/L (98-107); Creatine Kinase 100 U/L (26-192); Creatinine Clr Calc Pharmacy 208.4 ml/min; Est GFR (African American) > 150.0 ml/min; Est GFR (Non-African American) > 150.0 ml/min; Glucose 93 mg/dl (70-99(Fasting)); Potassium 3.3 mmol/L (3.5-5.1); Sodium 135 mmol/L (136-145)
[2022-10-12] MEDS ORDERED: SODIUM CHLORIDE 0.9% 250 ML IV PRN ×2 (07:03→13:17)
[2022-10-12] MEDS ORDERED: FUROSEMIDE INJ 20 MG/2 ML VIAL IV ONE (07:06)
--- NOTE | 2022-10-12 07:09 | Hospitalist Progress Note ---
Date of Service October 12, 2022 Assessment & Plan (1) Acute respiratory failure with hypoxia: Plan: Patient with chronic ventilator use at night trach collar during the day now requiring ventilator throughout the day Concern for sepsis on presentation with leukocytosis tachycardia and hypotension, multifocal pneumonia concern for gram negative pneumonia Blood cultures currently negative to date initial concerns were focused pulmonary as she has had issues with resistant Pseudomonas in the past subsequently we pursued a bronchoscopy with some mucus removed and cultures obtained. Initially was placed on cefepime then Zosyn now Ceftolazone-tazobactam(started 10/12/22) per infectious disease recommendation also continues on Doxycycline and inhaled tobramycin CT scan of head neck chest abdomen pelvis may suggest acalculus cholecystitis however there is also comments on progression of multifocal pneumonia doxycycline was added for atypical coverage. General surgery did see and are ordering HIDA scan for 10/13 our first possible availability We will continue her typical pulmonary support with albuterol nebulizer scheduled and as needed Mucomyst scheduled Pulmicort plus nebulized tobramycin. Patient does use a chest vest and CoughAssist at home Discussion with mother, continue supportive care at this time but no escalation to significant surgery or procedures (2) Anemia: Plan: Pt has had HGb trend down to 7.6, stop ibuprofen, start bolus protonix, transfuse 1 u prbc ? if this is part of her pain issue, maybe from discard when drawing blood from picc line, this is 10cc per draw discarded trend hgb after transfusion (3) Quadriplegic cerebral palsy: Plan: Pt typically with trache and peg tube support bowel regimen with daily miralax continue tube feeds and free water flushes with improvement in hyponatremia patient's been on ventilator with precedex infusion (4) Seizure disorder: Plan: valproic acid level is slightly elevated, last admission due to meropenem did have elevation of dose for a time, level is 110( high normal is 100)will reduce dose to 500 from 550 level did improve we will follow (5) Allergic rhinitis: Plan: continue claritan Plan patient's hyponatremia is improved continue free water flushes of tube feeds as previous patient remains persistently tachycardic likely her physiology is still under duress we will check inflammatory markers in the morning to trend if improving pt is a conditional code outlook remains Admission and Anticipated Discharge Date Admission Date: October 08, 2022 Subjective patient is nonverbal. Patient is on Precedex. Patient still exhibits pain difficult to localize definitely some pain in her abdomen has continue to have febrile episodes was recently changed to CEFTolazine tazobactam continues on doxycycline found to be anemia perhaps from acute blood loss anemia from discarding blood was drawn from PICC line while he gives consent for blood transfusion Physical Exam Physical Exam: patient does awaken to tactile stimulus does look about the room does not follow commands or make purposeful movements examination of her abdomen is difficult this appears to be uncomfortable to her she does spontaneously try to push me away at times Results & Data Results & Data Vital Signs (Past 12 Hours) Vital Signs Temp Pulse Pulse Resp BP Pulse Ox O2 Del Method 10/12/22 06:30 10/12/22 05:53 95 Mechanical Vent 10/12/22 03:03 84 21 99 10/12/22 02:00 99.7 F H 97 H 19 100/66 95 10/12/22 01:00 99.5 F 105 H 22 107/76 97 10/12/22 00:00 99.5 F 103 H 24 100/74 96 10/11/22 23:00 99.3 F 103 H 20 97/74 L 97 10/11/22 22:30 99.3 F 96 H 18 98/66 L 97 10/11/22 22:00 99.5 F 92 H 14 94/57 L 97 10/11/22 21:30 99.5 F 90 17 91/57 L 99 10/12/22 00:00 10/12/22 00:00 94 H 10/11/22 22:55 97 H 16 98 10/11/22 21:00 99.7 F H 95 H 23 90/56 L 90 10/11/22 19:09 99.7 F H 116 H 28 H 114/63 92 10/11/22 21:20 Mechanical Vent 10/11/22 20:55 10/11/22 20:46 98 H 23 96 10/11/22 20:46 100 H 24 97 Mechanical Vent FiO2 10/12/22 06:30 50 10/12/22 05:53 70 10/12/22 03:03 45 10/12/22 02:00 10/12/22 01:00 10/12/22 00:00 10/11/22 23:00 10/11/22 22:30 10/11/22 22:00 10/11/22 21:30 10/12/22 00:00 45 10/12/22 00:00 10/11/22 22:55 45 10/11/22 21:00 10/11/22 19:09 10/11/22 21:20 10/11/22 20:55 70 10/11/22 20:46 60 10/11/22 20:46 60 Laboratory Results reviewed CBC reviewed chemistry discussed case with Dr. Soto and patient's mother PG Care Time/CCT Total # of Minutes Spent Total Time Spent with Patient: Total time spent is greater than 50% in coordination of care (as documented) at patient's floor/unit and/or counseling patient: Coding Level of Care Code 40664 SUB INP/OBS CARE 3/50MIN Diagnoses Acute respiratory failure with hypoxia J96.01 Anemia D64.9 Anemia type: unspecified type Quadriplegic cerebral palsy G80.8 Seizure disorder G40.909 Allergic rhinitis J30.9 (2) Anemia Anemia type: unspecified type Qualified Code(s): D64.9 - Anemia, unspecified
--- NOTE | 2022-10-12 07:12 | Critical Care Progress Note ---
Date of Service October 12, 2022 Assessment & Plan (1) Sepsis: Plan: Reason Critically Ill: Acute on chronic hypoxic respiratory failure PLAN: Neuro: Cerebral palsy -Continue current antiepileptics: Depakote level reviewed Resp: Acute hypoxic respiratory failure -Status post bronchoscopy 10/08: Light normal dawit -Requiring supplemental support from invasive mechanical ventilator Bilateral pleural effusions -Consideration given to sampling pleural effusions/empyema, no thoracentesis as this is not in line with over arcing care goals -Continue pulmonary toilet CV: Tachycardia: Chronic Pericardial effusion -Negative troponins and EKG unremarkable previous echo indicated this effusion was smaller than years prior -No pericardiocentesis as this is not in line with over arcing care goals Fluids/Renal: Urine unremarkable, wears diapers chronically Hyponatremia: Improving -Appears to occur during episodes of physiologic stress/infection -Given dose of diuretic today for increasing patient weights concern for pulmonary edema secondary to third spacing ID: Abx: Cefepime 10/08 - 10/10 Pip-tazo 10/08, 10/10 - 10/12 Doxycycline 10/11 - present: planned 14 days ceftolozane-tazobactam 10/12 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 Sepsis Febrile illness: infectious disease consult reviewed: Transition to ceftolozane- tazobactam 3 g IV q8h extended infusion for pseudomonal resistance -Ears and oropharynx had been examined, no evidence of otitis media, pharyngitis clinically -BioFire negative -Respiratory culture: Light normal dawit, tracheal culture obtained and sensitivities pending -Consideration given to empyema and Cryptogenic organizing pneumonia - Small Pericardial effusion: No real clinical indication for purulent pericarditis - Check MANDO, RF, CPK to r/o autoimmune etiology - Brother recently diagnosed with multiple sclerosis - Send mycoplasma IgG, IgM, urinary legionella - Prolonged QTc: likely secondary to high dose ciprofloxacin - Repeat EKG: last QTc 558, reviewed previous 5 EKG reports patient has not had prolonged QTc previously -Empiric doxycycline x 14 days versus Zithromax for empiric atypical pneumonia coverage -Patient previously on high-dose ciprofloxacin 750mg PO Q8 hours on 09/28/22 for 14 days. Received minimum 10 days with to D/C on admission (10/07 2pm dose given) for long QTc -Leukocytosis: Improving -Converted to Zerbaxa extended infusion -Repeat blood cultures and fungal culture obtained 10/11: No growth to date -Cholelithiasis versus cholecystitis -No obvious cords to suggest septic thrombophlebitis GI/Nutrition: N.p.o. Heme: Chronic quadriplegic cerebral palsy, no indication for DVT prophylaxis DVT prophylaxis: Medically contraindicated Endocrine: ICU hyperglycemia protocol Check TSH and T4: Within normal limits Vascular access:PICC line placed 10/11 Code Status: Limited, okay with artificial ventilation no heroics in event of cardiac arrest, no vasoactive medications in event of sepsis Disposition: ICU secondary to chronic vent dependence Discussed with mother current plans. 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 This is a life/limb threatening event. This includes time spent evaluating patient, direct bedside care, chart review, placing orders, interpretation of diagnostic studies, discussion with consultants, patient, and/or family members regarding treatment decisions, as well as other required patient management activities. This time is exclusive of all separately billable procedures, and teaching time and separate from and in addition to any other critical care service time. Subjective Patient had increasing episodes of agitation and oxygen desaturation overnight. Had episode where patient's dropped her blood pressure with fever and became hypoxic, patient ultimately recovered. Had extensive discussion with patient's mother. The patient is starting to experience pain and showing reactions unlike she is experienced previously. We discussed that generally the patient's condition is following its natural course and she is requiring higher levels of intervention and care when she decompensates from illness. With regard to pleural effusions there will always be concern of transformation into empyema. Discussed treatment options if an empyema were developed and they are not in line with the goals of care. Similar concerns exist for a pyogenic pericardial effusion. Therefore we will transition to fifth generation cephalosporin and not sample pleural fluid due to discomfort and risks associated with it and through joint medical decision- making would not treat if it was infected. We discussed sepsis. Largely up until this point the patient has not had severe sepsis requiring vasoactive medication administration. Patient would be at increased risk for extravasation of vasoactive medications and would likely need advanced central venous access to administer vasoactive's. Again through extensive discussion risks are felt to outweigh the benefits of advanced vascular access. Goals would be to treat an underlying infection with antibiotics and we would not initiate vasoactive medication in event of severe s epsis and hypotension. We discussed risks and benefits of blood transfusions. At this time volume expansion with blood product as well as increasing oxygen carrying capacity with blood product are acceptable and the benefits would outweigh the risks. In discussions, one of the overlying goals is to be able to treat the patient at home, or looking to minimize interventions that would lead to care requirements that would require placement in a long-term care facility. Physical Exam Physical Exam: General: Alert. Irritable. Skin: Warm, dry. Head: Atraumatic Ears, nose, mouth and throat: airway patent Cardiovascular: Normal peripheral perfusion, tachycardia Respiratory: Tracheostomy in place, tachypnea, coarse breath sounds Gastrointestinal: Discomfort with palpation of right upper quadrant and with administration of medications through PEG tube, PEG tube placement Musculoskeletal: Contractures of all 4 extremities Skin: no rash Results & Data Results & Data Vital Signs (Past 12 Hours) Vital Signs Temp Pulse Pulse Resp BP Pulse Ox O2 Del Method 10/12/22 06:30 10/12/22 05:53 95 Mechanical Vent 10/12/22 03:03 84 21 99 10/12/22 02:00 37.6 C H 97 H 19 100/66 95 10/12/22 01:00 37.5 C 105 H 22 107/76 97 10/12/22 00:00 37.5 C 103 H 24 100/74 96 10/11/22 23:00 37.4 C 103 H 20 97/74 L 97 10/11/22 22:30 37.4 C 96 H 18 98/66 L 97 10/11/22 22:00 37.5 C 92 H 14 94/57 L 97 10/11/22 21:30 37.5 C 90 17 91/57 L 99 10/12/22 00:00 10/12/22 00:00 94 H 10/11/22 22:55 97 H 16 98 10/11/22 21:00 37.6 C H 95 H 23 90/56 L 90 10/11/22 21:20 Mechanical Vent 10/11/22 20:55 10/11/22 20:46 98 H 23 96 10/11/22 20:46 100 H 24 97 Mechanical Vent FiO2 10/12/22 06:30 50 10/12/22 05:53 70 10/12/22 03:03 45 10/12/22 02:00 10/12/22 01:00 10/12/22 00:00 10/11/22 23:00 10/11/22 22:30 10/11/22 22:00 10/11/22 21:30 10/12/22 00:00 45 10/12/22 00:00 10/11/22 22:55 45 10/11/22 21:00 10/11/22 21:20 10/11/22 20:55 70 10/11/22 20:46 60 10/11/22 20:46 60 Critical Care Results & Data Vital Signs (Past 12 Hours) Vital Signs Temp Pulse Resp BP Pulse Ox O2 Del Method FiO2 10/12/22 11:00 38.4 C H 89 21 89 L 10/12/22 11:00 93/56 L 10/12/22 10:30 38.4 C H 94 H 26 H 96 10/12/22 10:30 89/56 L 10/12/22 10:14 88/50 L 10/12/22 10:14 38.4 C H 94 H 22 76 L 10/12/22 10:00 38.4 C H 92 H 20 95 10/12/22 10:00 82/46 L 10/12/22 09:00 38.6 C H 114 H 23 100 10/12/22 09:00 86/54 L 10/12/22 08:43 101/57 L 10/12/22 08:43 38.4 C H 135 H 36 H 94 10/12/22 08:00 131 H 30 H 67 L 10/12/22 07:00 37.8 C H 105 H 27 H 94 10/12/22 07:00 101/75 10/12/22 08:00 Mechanical Vent 10/12/22 08:00 50 10/12/22 07:26 100 H 18 96 50 10/12/22 06:30 50 10/12/22 05:53 95 Mechanical Vent 70 10/12/22 03:03 84 21 99 45 10/12/22 02:00 37.6 C H 97 H 19 100/66 95 Lab & Micro Results (Past 24 Hours) RBC 2.38 M/uL (4.20-5.40) L 10/12/22 WBC 5.82 K/ul (4.8-10.8) 10/12/22 Hgb 7.6 g/dl (12.0-16.0) L 10/12/22 Hct 23.2 % (37.0-47.0) L 10/12/22 MCV 97.5 fL (80.0-100.0) 10/12/22 MCH 31.9 pg (25.0-34.0) 10/12/22 MCHC 32.8 g/dL (32.0-36.0) 10/12/22 RDW Standard Deviation 46.6 fL (36.4-46.3) H 10/12/22 RDW Coefficient of Variation 13.1 % (11.5-14.5) 10/12/22 Plt Count 175 K/uL (130-400) 10/12/22 MPV 9.7 fL (9.4-12.4) 10/12/22 Neutrophils (%) (Auto) 83.8 % 10/12/22 Lymphocytes (%) (Auto) 6.2 % 10/12/22 Monocytes # (Auto) 0.52 K/uL (0.11-0.59) 10/12/22 Eosinophils # (Auto) 0.05 K/uL (0-0.50) 10/12/22 Immature Granulocyte % (Auto) 0.2 % 10/12/22 Neutrophils # (Auto) 4.88 K/uL (1.40-6.50) 10/12/22 Lymphocytes # (Auto) 0.36 K/uL (1.2-3.4) L 10/12/22 Monocytes # (Auto) 0.52 K/uL (0.11-0.59) 10/12/22 Eosinophils # (Auto) 0.05 K/uL (0-0.50) 10/12/22 Basophils # (Auto) 0.00 K/uL (0-0.2) 10/12/22 Immature Granulocyte # (Auto) 0.01 K/uL (0.01-0.20) 08/20/2 3 Red Blood Cell Morphology Unremarkable 10/12/22 Na 135 mmol/L (136-145) L 10/12/22 K 3.3 mmol/L (3.5-5.1) L 10/12/22 Cl 103 mmol/L (98-107) 10/12/22 CO2 25 mmol/L (21-32) 10/12/22 Anion Gap 7 (3-11) 10/12/22 BUN 13 mg/dl (6-23) 10/12/22 Creatinine 0.35 mg/dl (0.6-1.2) L 10/12/22 Estimated GFR ( Amer) > 150.0 ml/min 10/12/22 Estimated GFR (Non-Af Amer) > 150.0 ml/min 10/12/22 BUN/Creatinine Ratio 37.1 (10-20) H 10/12/22 Glu 93 mg/dl (70-99(Fasting)) 10/12/22 Ca 8.0 mg/dl (8.6-10.3) L 10/12/22 Calcium Level 8.0 mg/dl (8.6-10.3) L 10/12/22 04:40 Microbiology 10/08/22 14:40 Acid Fast Bacilli Smear - Final Bronch Wash,Left Lower Lobe Acid Fast Bacilli Culture - Preliminary No Acid-Fast Bacilli Isolated - Report 1, Additional Report to Follow. 10/10/22 11:25 Gram Stain - Final Sputum,Trach Sputum Culture - Preliminary Gram negative bacilli Corynebacterium species 10/11/22 07:21 Aerobic Blood Culture - Preliminary Blood No growth in Aerobic bottle after 24 hours. Anaerobic Blood Culture - Preliminary No growth in Anaerobic bottle after 24 hours. 10/11/22 07:39 Aerobic Blood Culture - Preliminary Blood No growth in Aerobic bottle after 24 hours. 10/11/22 07:21 Fungal Smear - Final Blood 10/08/22 14:40 Fungal Smear - Final Bronch Wash,Left Lower Lobe Fungal Culture - Preliminary No yeast or fungus isolated - Report 1, Additional Report to Follow. Diagnostic Findings (Past 24 Hours) Liver Ultrasound 10/11/22 13:48 ABDOMINAL ULTRASOUND, RIGHT UPPER QUADRANT HISTORY: Acute right upper quadrant abdominal pain r/o cholecytitis. COMPARISON: CT abdomen and pelvis 10/11/2022 FINDINGS: Pancreas: The pancreas is mostly obscured by bowel gas. Liver: 16.6 cm in length. Trace perihepatic ascites. Gallbladder: The bladder is distended measuring up to 9 cm demonstrating mild layering sludge without shadowing cholelithiasis identified. Borderline gallbladder wall thickening measuring 3 mm. Patient experienced positive sonographic Watson sign. CBD: 0.3 cm. Right kidney: No hydronephrosis. IMPRESSION: 1. Distended gallbladder with layering sludge, borderline gallbladder wall thickening and pericholecystic edema without shadowing cholelithiasis. Finds are equivocal for acute cholecystitis and correlation with nuclear medicine hepatobiliary scan recommended. 2. No biliary ductal dilation. ACT 112: Negative or not required by law. Electronically signed by: Ervin Townsend M.D. 10/11/2022 2:40 PM Chest X-Ray 10/11/22 19:40 XR chest 1V portable HISTORY: hypoxia- COMPARISON: Chest 10/11/2022. FINDINGS: No pneumothorax. A tracheostomy tube is in good position. A right PICC terminates in the distal SVC. Bilateral airspace opacities and small to moderate pleural effusions persist. IMPRESSION: 1. Satisfactory support line placement. 2. No change in the bilateral airspace opacities and small to moderate pleural effusions. ACT 112: Negative or not required by law. Electronically signed by: Edmund Dorman M.D. 10/12/2022 8:12 AM Chest X-Ray 10/12/22 06:00 XR chest 1V portable HISTORY: respiratory failure COMPARISON: Chest 10/11/2022. FINDINGS: Tracheostomy tube is in good position. A right PICC terminates at the distal SVC. There are low lung volumes. No pneumothorax. Bilateral airspace opacities and bilateral pleural effusions persist. The heart remains enlarged. IMPRESSION: 1. Satisfactory support line placement. 2. No significant change in the extensive bilateral airspace opacities and bilateral pleural effusions. ACT 112: Negative or not required by law. Electronically signed by: Edmund Dorman M.D. 10/12/2022 7:59 AM I & O Totals 24 Hours 10/11/22 10/12/22 10/13/22 06:59 06:59 06:59 Intake Total 600 / 600 1330.135 / 1330.135 422.8 / 422.8 Balance 600 / 600 1330.135 / 1330.135 422.8 / 422.8 Cumulative 10/08/22 08:38 thru 10/12/22 11:19 Intake Total 5302.935 Output Total 850 Balance 4452.935 RT Ventilator Mngmt (Last Documented) Ventilator Ordered Settings Ventilator Support Mode Assist Control 10/12/22 08:00 Respiratory Rate 21 10/12/22 11:00 Ventilator Tidal Volume 350 10/12/22 08:00 Setting Minute Ventilation 6.3 10/12/22 07:26 Ventilator Positive Pressure 5 10/11/22 16:00 Support Setting Positive End Expiratory 5 10/12/22 08:00 Pressure Fraction of Inspired Oxygen 50 10/12/22 08:00 Machine Comment decreased from 50% to 45% 10/11/22 22:55 Ventilator - PT Measurements Respiratory Rate 21 Exhaled Tidal Volume 350 Minute Ventilation 6.3 Peak Inspiratory Airway 26 Pressure Plateau Pressure 21 Respiratory Cycle Inspiratory: 1:4.7 Expiratory Ratio Inspiratory Phase Time 0.7 End-Tidal CO2 28 Static Lung Compliance 21.88 Dynamic Lung Compliance 16.67 Normal Static Lung Compliance 45.00 Patient Measurements Comment PT HAD DESAT EPISODE. BAGGED WITH AMBU FOR APPROX 10 MINUTES. PLACED BACK ON THE VENT WITH INCREASED PEEP TO 8, 100% FIO2. 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
[2022-10-12] MEDS: ACETYLCYSTEINE 20% INHAL SOLN 4ML ***DISPENSED BY RESP. INH SCH ×2 (07:25→20:20)
[2022-10-12] MEDS: BUDESONIDE 0.5 MG/2 ML VIAL (PULMICORT) INH SCH ×2 (07:25→19:42)
[2022-10-12] MEDS: ALBUTEROL 0.083% NEBU SOLN 3 ML VIAL NEB SCH ×4 (07:25→19:42)
[2022-10-12] MEDS: TOBRAMYCIN 300MG NEB INH SCH ×2 (07:26→20:21)
[2022-10-12] MEDS: dexMEDEtomidine 200 MCG/50 ML BAG IV SCH ×2 (07:33→23:08)
[2022-10-12] MEDS: PATIENT'S OWN ENTERAL FEEDING PEG SCH (07:39)
[2022-10-12] MEDS: TUBE FEEDING WATER FLUSH PO SCH ×4 (07:39→20:08)
[2022-10-12] MEDS: POTASSIUM CHLORIDE / WTR 10 MEQ/100 ML PLCT IV SCH ×3 (07:40→09:55)
[2022-10-12] MEDS: ACETAMINOPHEN SUSP 325 MG/10.15 ML UDC PO PRN ×2 (07:40→18:03)
[2022-10-12] MEDS: BACLOFEN 20 MG TAB PEG SCH ×3 (07:41→20:09)
[2022-10-12] MEDS: CETIRIZINE HCL 10 MG TABLET PO SCH (07:42)
[2022-10-12] MEDS: DOXYCYCLINE HYCLATE 100 MG CAP PO SCH ×2 (07:42→20:09)
[2022-10-12] MEDS: POLYETHYLENE (MIRALAX) 17 GM PACK PEG SCH (07:42)
[2022-10-12] MEDS: ZONISAMIDE 100 MG PO SCH ×2 (07:43→20:09)
[2022-10-12] MEDS: VALPROIC ACID 50 MG/ML UDP PEG SCH ×3 (07:43→20:08)
--- NOTE | 2022-10-12 08:00 | XRay Report ---
XR chest 1V portable HISTORY: respiratory failure COMPARISON: Chest 10/11/2022. FINDINGS: Tracheostomy tube is in good position. A right PICC terminates at the distal SVC. There are low lung volumes. No pneumothorax. Bilateral airspace opacities and bilateral pleural effusions pers ist. The heart remains enlarged. IMPRESSION: 1. Satisfactory support line placement. 2. No significant change in the extensive bilateral airspace opacities and bilateral pleural effusion s. ACT 112: Negative or not required by law. Electronically signed by: Edmund Dorman M.D. 10/12/2022 7:59 AM
[2022-10-12] MEDS: CEFTOLOZANE/TAZOBACTAM 3,000 MG in DEXTROSE 5% 100 ML IV SCH ×3 (08:12→23:07)
[2022-10-12] MEDS: PANTOprazole 40 MG in SYRINGE 0 ML IV SCH ×2 (08:12→20:08)
[2022-10-12] MEDS: MoRPHine SULFATE 2 MG/ML CARP IV PRN ×4 (08:14→22:15)
--- NOTE | 2022-10-12 08:14 | XRay Report ---
XR chest 1V portable HISTORY: hypoxia- COMPARISON: Chest 10/11/2022. FINDINGS: No pneumothorax. A tracheostomy tube is in good position. A right PICC terminates in the di stal SVC. Bilateral airspace opacities and small to moderate pleural effusions persist. IMPRESSION: 1. Satisfactory support line placement. 2. No change in the bilateral airspace opacities and small to moderate pleural effusions. ACT 112: Negative or not required by law. Electronically signed by: Edmund Dorman M.D. 10/12/2022 8:12 AM
[2022-10-12] MEDS ORDERED: POTASSIUM CHLORIDE CRTAB 20 MEQ TABCR PO SCH (09:00)
--- NOTE | 2022-10-12 09:38 | Surgery Progress Note ---
Date of Service October 12, 2022 Assessment & Plan (1) Cholecystitis without calculus: Plan: Continue her IV antibiotics and we can get the HIDA scan tomorrow The HIDA scan is positive would recommend a percutaneous cholecystostomy tube due to the patient's overall state she is a poor surgical candidate We will follow Admission and Anticipated Discharge Date Admission Date: October 08, 2022 Subjective Patient seen and examined. Had a rough night per nursing and was very restless. Review of Systems Constitutional: + fever; no chills Physical Exam Constitutional: WD/WN, vitals as above Eyes: PERRL, conjunctivae normal, anicteric sclerae ENMT: external ear and nose normal, oropharynx normal Neck: Trach in place Respiratory: On ventilator Cardiovascular: RRR, no murmur, no edema Gastrointestinal (Abdomen): Inspection/Auscultation: abdomen normal to inspection Percussion/Palpation: + abdomen tender (Right upper quadrant) and abdomen soft; no guarding PEG tube in place Skin: no rashes, warm and dry Results & Data Vital Signs (Past 12 Hours) Vital Signs Temp Pulse Resp BP Pulse Ox O2 Del Method FiO2 10/12/22 07:26 100 H 18 96 50 10/12/22 06:30 50 10/12/22 05:53 95 Mechanical Vent 70 10/12/22 03:03 84 21 99 45 10/12/22 02:00 37.6 C H 97 H 19 100/66 95 10/12/22 01:00 37.5 C 105 H 22 107/76 97 10/12/22 00:00 37.5 C 103 H 24 100/74 96 10/11/22 23:00 37.4 C 103 H 20 97/74 L 97 10/11/22 22:30 37.4 C 96 H 18 98/66 L 97 10/11/22 22:00 37.5 C 92 H 14 94/57 L 97 10/12/22 00:00 45 10/12/22 00:00 94 H 10/11/22 22:55 97 H 16 98 45 PG Care Time/CCT Total # of Minutes Spent Total Time Spent with Patient: Total time spent is greater than 50% in coordination of care (as documented) at patient's floor/unit and/or counseling patient: Coding Level of Care Code 56776 SUB INP/OBS CARE 1/25MIN Diagnoses Cholecystitis without calculus K81.9
[2022-10-12] MEDS: POTASSIUM CHLORIDE PWD 20 MEQ PACK PO SCH ×3 (10:10→20:08)
[2022-10-12] MEDS: traZODone HCL 50 MG TAB PEG SCH (20:09)
[2022-10-13] MEDS: ACETAMINOPHEN SUSP 325 MG/10.15 ML UDC PO PRN (03:29)
[2022-10-13 05:33] LABS: Basophils # (auto) 0.01 K/uL (0-0.2); Basophils % (auto) 0.2 %; Eosinophils # (auto) 0.04 K/uL (0-0.50); Eosinophils % (auto) 0.7 %; Hematocrit (blood only) 25.7 % (37.0-47.0); Hemoglobin 8.3 g/dl (12.0-16.0); Immature Granulocytes # (auto) 0.02 K/uL (0.01-0.20); Immature Granulocytes % (auto) 0.4 %; Lymphocytes % (auto) 12.9 %; Mean Corpuscular Hemoglobin 31.4 pg (25.0-34.0); Mean Corpuscular Hgb Conc 32.3 g/dL (32.0-36.0); Mean Corpuscular Volume 97.3 fL (80.0-100.0); Mean Platelet Volume 9.8 fL (9.4-12.4); Monocytes # (auto) 0.71 K/uL (0.11-0.59); Monocytes % (auto) 13.1 %; Neutrophils # (auto) 3.93 K/uL (1.40-6.50); Neutrophils % (auto) 72.7 %; Platelet Count 178 K/uL (130-400); RDW Coefficient of Variation 14.5 % (11.5-14.5); RDW Standard Deviation 51.6 fL (36.4-46.3); Red Blood Count 2.64 M/uL (4.20-5.40); White Blood Count 5.41 K/ul (4.8-10.8)
[2022-10-13] MEDS: TUBE FEEDING WATER FLUSH PO SCH ×5 (06:18→19:50)
[2022-10-13] MEDS: TOBRAMYCIN 300MG NEB INH SCH (07:42)
[2022-10-13] MEDS: ALBUTEROL 0.083% NEBU SOLN 3 ML VIAL NEB SCH ×4 (07:43→20:07)
[2022-10-13] MEDS: ACETYLCYSTEINE 20% INHAL SOLN 4ML ***DISPENSED BY RESP. INH SCH ×2 (07:43→20:08)
[2022-10-13] MEDS: BUDESONIDE 0.5 MG/2 ML VIAL (PULMICORT) INH SCH ×2 (07:43→20:08)
--- NOTE | 2022-10-13 07:53 | Critical Care Progress Note ---
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: (8) Mucus plugging of bronchi: (9) Quadriplegic cerebral palsy: (10) Seizure disorder: Plan Reason Critically Ill: Acute on chronic hypoxic respiratory failure PLAN: Neuro: Cerebral palsy -Continue current antiepileptics: Depakote level reviewed Resp: Acute hypoxic respiratory failure -Status post bronchoscopy 10/08: Light normal dawit -Requiring supplemental support from invasive mechanical ventilator Bilateral pleural effusions -Small to moderate -Continue pulmonary toilet CV: Tachycardia: Chronic --Pericardial effusion -Negative troponins and EKG unremarkable previous echo indicated this effusion was smaller than years prior Fluids/Renal: Urine unremarkable, wears diapers chronically Hyponatremia: Improving -Appears to occur during episodes of physiologic stress/infection ID: Abx: Cefepime 10/08 - 10/10 Pip-tazo 10/08, 10/10 - 10/12 Doxycycline 10/11 - present: planned 14 days ceftolozane-tazobactam 10/12 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 --> resistant to levofloxacin, tobramycin as well as gentamicin Sepsis Febrile illness: infectious disease consult reviewed: Transition to ceftolozane- tazobactam 3 g IV q8h extended infusion for pseudomonal resistance -Ears and oropharynx had been examined, no evidence of otitis media, pharyngitis clinically -BioFire negative -Respiratory culture: Light normal dawit, tracheal culture obtained and sensitivities pending - Small Pericardial effusion: No real clinical indication for purulent pericarditis -Follow-up MANDO, RF, CPK to r/o autoimmune etiology - Brother recently diagnosed with multiple sclerosis -Follow-up mycoplasma IgG, IgM, urinary legionella - Prolonged QTc: likely secondary to high dose ciprofloxacin - Repeat EKG: last QTc 558, reviewed previous 5 EKG reports patient has not had prolonged QTc previously -Empiric doxycycline x 14 days versus Zithromax for empiric atypical pneumonia coverage -Patient previously on high-dose ciprofloxacin 750mg PO Q8 hours on 09/28/22 for 14 days. Received minimum 10 days with to D/C on admission (10/07 2pm dose given) for long QTc -Leukocytosis: Improving -Converted to Zerbaxa extended infusion -Repeat blood cultures and fungal culture obtained 10/11: No growth to date -Cholelithiasis versus cholecystitis --> given normal alk phos, possibility of cholecystitis is low Liver ultrasound 10/11/2022: Distended gallbladder with layering sludge GI/Nutrition: N.p.o. Heme: Chronic quadriplegic cerebral palsy, no indication for DVT prophylaxis Endocrine: ICU hyperglycemia protocol TSH and T4 within normal limits --Prophylaxis VTE: IPC GI: Pantoprazole --No escalation of care Lines: PICC line 10/11/2022 Diet:Tube feeds Plan: In/out: Positive finding 2, urine output 1150, +4.5 L since coming to the [facility] Follow-up chemistry from today For HIDA scan today. Continue with antibiotics Follow-up ID recommendation Continue with Precedex. Patient having issues with tube feeds. Whenever tube feeds are started patient becomes restless and grimaces a lot. I have personally spent 47 minutes of critical care time in the direct management of this patient. This is a life/limb threatening event. This includes time spent evaluating patient, direct bedside care, chart review, placing orders, interpretation of diagnostic studies, discussion with consultants, patient, and family members, as well as other required patient management activities. This time is exclusive of all separately billable procedures, and teaching time and separate from and in addition to any other critical care service time. Please note the above document was generated using voice recognition software. It may contain grammatical, syntax or spelling errors. Admission and Anticipated Discharge Date Admission Date: October 08, 2022 Subjective Patient seen and examined at bedside. No acute distress. Patient has bouts of tachypnea and breath stacking for which she occasionally needs bagging. She was on Precedex 0.3, 60% FiO2 saturating 91-92% Map was in the mid 60s with systolic in the 80s Tmax 38.1 Review of Systems Review of Systems: Unobtainable due to mental health condition Physical Exam Physical Exam: Constitutional: No acute distress HEENT: EOMI, PERRLA Respiratory system: Decreased entry bilaterally, no wheeze, no rhonchi, positive crackles bilaterally CVS: S1-S2 positive, no murmurs or gallops Abdomen: Soft, nontender, nondistended, positive bowel sounds x4, positive J Tube Extremities: +2 pulses bilaterally radialis/ dorsalis pedis, no cyanosis, no edema Neuro: Moving bilateral upper extremities and lower extremities simultaneously Psych: Unable to assess G/U: Positive Cota Skin: no rashes, warm and dry Lymphatic: no cervical or axillary lymphadenopathy Results & Data Results & Data Vital Signs (Past 12 Hours) Vital Signs Temp Pulse Pulse Resp BP BP Pulse Ox 10/13/22 06:00 97 H 24 89/59 L 92 10/13/22 05:00 77 22 88/53 L 96 10/13/22 04:00 38.1 C H 80 20 85/53 L 95 10/13/22 04:00 10/13/22 03:00 78 21 83/51 L 98 10/13/22 02:00 82 18 86/54 L 98 10/13/22 01:48 80 18 94 10/13/22 01:00 38.1 C H 82 21 86/55 L 100 10/13/22 00:00 38.0 C H 87 18 88/56 L 95 10/13/22 00:00 10/12/22 23:00 37.6 C H 100 H 16 113/77 95 10/12/22 22:11 110 H 29 H 92 10/12/22 22:00 38.1 C H 101 H 24 97/60 L 100 10/12/22 21:00 38.2 C H 113 H 24 95/53 L 94 10/12/22 20:00 38.4 C H 100 H 25 H 90/53 L 98 10/12/22 20:00 10/12/22 20:00 10/12/22 20:21 109 H 20 98 10/12/22 20:21 109 H 21 97 O2 Del Method FiO2 10/13/22 06:00 Mechanical Vent 60 10/13/22 05:00 Mechanical Vent 60 10/13/22 04:00 Mechanical Vent 60 10/13/22 04:00 60 10/13/22 03:00 Mechanical Vent 60 10/13/22 02:00 Mechanical Vent 70 10/13/22 01:48 70 10/13/22 01:00 Mechanical Vent 70 10/13/22 00:00 Mechanical Vent 70 10/13/22 00:00 70 10/12/22 23:00 Mechanical Vent 70 10/12/22 22:11 70 10/12/22 22:00 Mechanical Vent 80 08/20/23 21:00 Mechanical Vent 80 10/12/22 20:00 Mechanical Vent 80 10/12/22 20:00 Mechanical Vent 80 10/12/22 20:00 80 10/12/22 20:21 100 10/12/22 20:21 Mechanical Vent 75 Laboratory Results 10/13/22 05:15 10/12/22 04:40 Coding Level of Care Code 06264 CRITICAL CARE 1ST 30-74M Diagnoses Sepsis A41.9 Sepsis acute organ dysfunction status: unspecified Sepsis type: sepsis due to unspecified organism Acute respiratory failure with hypoxia J96.01 Sepsis due to pneumonia J18.9; A41.9 Bronchiectasis J47.9 Bilateral pneumonia J18.9 Lung location: lower lobe of lung Pneumonia type: due to unspecified organism Muscle spasticity M62.838 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
[2022-10-13] MEDS: CEFTOLOZANE/TAZOBACTAM 3,000 MG in DEXTROSE 5% 100 ML IV SCH (08:11)
[2022-10-13] MEDS: PANTOprazole 40 MG in SYRINGE 0 ML IV SCH ×2 (08:11→19:52)
[2022-10-13 08:27] LABS: C Reactive Protein 22.79 mg/dl (0-0.5)
[2022-10-13 09:44] LABS: Anion Gap 6 (3-11); BUN Creatinine Ratio 38.9 (10-20); Blood Urea Nitrogen 14 mg/dl (6-23); Calcium 8.6 mg/dl (8.6-10.3); Carbon Dioxide 22 mmol/L (21-32); Chloride 109 mmol/L (98-107); Creatinine Clr Calc Pharmacy 203.7 ml/min; Est GFR (African American) > 150.0 ml/min; Est GFR (Non-African American) 148.8 ml/min; Glucose 85 mg/dl (70-99(Fasting)); Magnesium 2.1 mg/dl (1.7-2.4); Phosphorus 2.8 mg/dl (2.5-4.9); Potassium 3.9 mmol/L (3.5-5.1); Sodium 137 mmol/L (136-145)
[2022-10-13] MEDS ORDERED: ACETAMINOPHEN 1000 MG/100 ML IV IV ONE (10:21)
[2022-10-13] MEDS: dexMEDEtomidine 200 MCG/50 ML BAG IV SCH ×2 (10:28→19:49)
[2022-10-13] MEDS ORDERED: SINCALIDE 1.1 MCG in 0.9 % SODIUM CHLORIDE 100 ML IV SCH (12:00)
--- NOTE | 2022-10-13 12:00 | Infectious Disease Progress Nt ---
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 GS--rare GPCs -Fungal smear neg, cx pending -AFB smear, cx: pending 10/08 BCx x2:sterile 09/26 Sputum cx: PsA #1 (S cefepime, ceftaz, cipro, valerie, pip/tazo. I levo. R gent.), PsA #2 (S ceftaz, cipro, valerie, pip/tazo. I cefepime. R levo, gent) 08/04 Sputum cx: PsA (S ceftaz, cipro, valerie, pip/tazo. I cefepime, aztreonam. R levo, gent.) 06/23 Sputum cx: PsA (S cefepime, ceftaz, cipro, levo, valerie, pip/tazo. R gent, tobra) 11/25/21 BAL LLL: PsA (S ceftaz, cipro, valerie, pip/tazo. I cefepime. R levo, gent) 11/23/21 Sputum cx: PsA (S ceftaz, cipro, valerie, tobra, pip/tazo. I cefepime, gent. R levo) 08/27/21 Sputum cx: PsA, Achromobacter (S ceftaz, levo, TMP/SMX. I cipro. R cefepime, gent, valerie, pip/tazo) Abx: Cefepime 10/08 - 10/10 Pip-tazo 10/08, 10/10 - present Problems: #Acute hypoxic respiratory failure #Fever #Chronic tracheostomy #h/o Pseudomonas colonization #Seizure disorder on valproic acid # Prolonged QTC 27 yo F with history of cerebral palsy, chronic tracheostomy and vented at night, chronic mucous plugging, Pseudomonas and Achromobacter colonization, seizure disorder, recent admission for tracheitis and discharged 09/28 on ciprofloxacin, who presented on 10/08 with hypoxia, admitted with pneumonia. At her last admission from 09/26-09/28, a CT chest showed no PE, moderate bilateral lower lobe airspace opacities, multifocal bilateral upper lobe airspace opacities. Patient was started on meropenem. Her valproic acid level decreased, likely in the setting of meropenem. Sputum culture grew 2 types of Pseudomonas, both susceptible to ciprofloxacin. She was discharged on high-dose ciprofloxacin 750 mg every 8 hours x12 additional days. Per notes, pt was doing well until about 36 hours prior to presentation, when she was appearing uncomfortable, did not tolerate the ventilator overnight, and had hypoxia overnight. She had a trach change at home without much change in quantity or quality of mucus. In the ED, patient was initially afebrile, HR 130, trach collar 6 L. However, later she became febrile, was placed on ventilator. Labs showed WBC 25, procalcitonin <0.05. RVP negative. Blood cultures NGTD. CXR showed bibasilar densities. A bronchoscopy was performed, showing moderate thick secretions in the right upper and left lower lobes. Patient was started on cefepime. A CT chest on 10/09 showed worsening multifocal consolidative and groundglass nodules compatible with pneumonia. BAL cx finalized as light normal dawit. Bronch wash cx 10/08 with normal dawit and sterile for bacterial cx sterile. funga cx pending. Sputum /tract cx with rare PSA ( S to ceftaz, cetaz/corrine, Valerie, pip/tazo) Avoided meropenem because of concern it would lower her valproic acid level in the setting of seizure disorder. The pip-tazo VINICIUS is <=16 (high but susceptible--although it is notable that the susceptibility testing panel at [facility] only tests for pip-tazo VINICIUS down to 16, nothing lower. Therefore, one would only be able to tell susceptible vs intermediate, but not how susceptible. On Zosyn she remained febrile and was switched to ceftolozane-tazobactam 3 g IV q8h extended infusion over weekend. Doxy added. QTc prolonged. WBC has down trended to 5.4. Remains febrile T m 38.1. Remains mechanically ventilated, FiO2 went from 70%.--> 60%--> now 80% RVP/biofire negative. Recommendations:.) Follow up MANDO, RF, CPK to r/o autoimmune etiology per primary team; Brother recently diagnosed with multiple sclerosis Follow-up mycoplasma IgG, IgM, urinary legionella Cotinue doxycycine Will change from Cef/tazo to Ceftazadime 2 g Iv q 8 hour since ceft/tazo sensi unknown for the rare PSA on sputum/trach cx Will continue to follow. Admission and Anticipated Discharge Date Admission Date: October 08, 2022 Subjective This patient recommendation is based on a telemedicine consult request which was completed asynchronously through chart review and information provided by the primary physician. The patient was not seen or examined today. The evaluation is consultative in nature and all patient care and treatment decisions can either be accepted or rejected by the patient's primary hospital-based treating physician using their own independent medical judgment for their patient. Time Spent Reviewing Chart: 21 - 30 minutes Febrile. TM 38.1 Respiratory cx + PSA S ceftaz, Ceftaz/Corrine, Meropenem On Ceftozalone/tazo and doxy Remains on ventilator , fio2 up to 80% WBC 5.4, cr 0.56 Results & Data Vital Signs (Past 12 Hours) Vital Signs Temp Pulse Pulse Resp BP BP Pulse Ox 10/13/22 10:17 99 H 25 H 96 10/13/22 10:17 99 H 25 H 96 10/13/22 09:00 38.1 C H 144 H 15 10/13/22 08:00 37.8 C H 106 H 24 99 10/13/22 08:00 89/59 L 10/13/22 07:55 37.7 C H 116 H 34 H 93 10/13/22 09:13 10/13/22 08:00 10/13/22 08:09 102 H 30 H 92 10/13/22 06:00 97 H 24 89/59 L 92 10/13/22 05:00 77 22 88/53 L 96 10/13/22 04:00 38.1 C H 80 20 85/53 L 95 10/13/22 04:00 10/13/22 03:00 78 21 83/51 L 98 10/13/22 02:00 82 18 86/54 L 98 10/13/22 01:48 80 18 94 10/13/22 01:00 38.1 C H 82 21 86/55 L 100 10/13/22 00:00 38.0 C H 87 18 88/56 L 95 10/13/22 00:00 O2 Del Method FiO2 10/13/22 10:17 80 10/13/22 10:17 Mechanical Vent 80 10/13/22 09:00 10/13/22 08:00 10/13/22 08:00 10/13/22 07:55 10/13/22 09:13 Mechanical Vent 60 10/13/22 08:00 60 10/13/22 08:09 60 10/13/22 06:00 Mechanical Vent 60 10/13/22 05:00 Mechanical Vent 60 10/13/22 04:00 Mechanical Vent 60 10/13/22 04:00 60 10/13/22 03:00 Mechanical Vent 60 10/13/22 02:00 Mechanical Vent 70 10/13/22 01:48 70 10/13/22 01:00 Mechanical Vent 70 10/13/22 00:00 Mechanical Vent 70 10/13/22 00:00 70 Laboratory Results Laboratory Results - last 48 hr 10/12/22 10/12/22 10/12/22 04:40 04:40 04:40 WBC 5.82 RBC 2.38 L Hgb 7.6 L Hct 23.2 L MCV 97.5 MCH 31.9 MCHC 32.8 RDW Std Deviation 46.6 H RDW Coeff of Flaquito 13.1 Plt Count 175 MPV 9.7 Immature Gran % (Auto) 0.2 Neut % (Auto) 83.8 Lymph % (Auto) 6.2 [place] % (Auto) 8.9 Eos % (Auto) 0.9 Baso % (Auto) 0.0 Neut # (Auto) 4.88 Lymph # (Auto) 0.36 L [place] # (Auto) 0.52 Eos # (Auto) 0.05 Baso # (Auto) 0.00 Immature Gran # (Auto) 0.01 RBC Morphology Unremarkable Sodium 135 L Cancelled Potassium 3.3 L Cancelled Chloride 103 Cancelled Carbon Dioxide 25 Cancelled Anion Gap 7 Cancelled BUN 13 Cancelled Creatinine 0.35 L Cancelled Est Cr Clr Drug Dosing 208.4 Cancelled Est GFR ( Amer) > 150.0 Cancelled Est GFR (Non-Af Amer) > 150.0 Cancelled BUN/Creatinine Ratio 37.1 H Cancelled Glucose 93 Cancelled POC Glucose Calcium 8.0 L Cancelled Phosphorus Magnesium Total Creatine Kinase 100 C-Reactive Protein Blood Type Blood Type Recheck Antibody Screen Crossmatch 10/12/22 10/12/22 10/13/22 04:40 07:30 05:15 WBC 5.41 RBC 2.64 L Hgb 8.3 L Hct 25.7 L MCV 97.3 MCH 31.4 MCHC 32.3 RDW Std Deviation 51.6 H RDW Coeff of Flaquito 14.5 Plt Count 178 MPV 9.8 Immature Gran % (Auto) 0.4 Neut % (Auto) 72.7 Lymph % (Auto) 12.9 [place] % (Auto) 13.1 Eos % (Auto) 0.7 Baso % (Auto) 0.2 Neut # (Auto) 3.93 Lymph # (Auto) 0.70 L [place] # (Auto) 0.71 H Eos # (Auto) 0.04 Baso # (Auto) 0.01 Immature Gran # (Auto) 0.02 RBC Morphology Sodium Potassium Chloride Carbon Dioxide Anion Gap BUN Creatinine Est Cr Clr Drug Dosing Est GFR ( Amer) Est GFR (Non-Af Amer) BUN/Creatinine Ratio Glucose POC Glucose Calcium Phosphorus Magnesium Total Creatine Kinase C-Reactive Protein Blood Type B Positive Blood Type Recheck B Positive Antibody Screen NEGATIVE Crossmatch See Detail 10/13/22 10/13/22 10/13/22 06:18 06:18 06:43 WBC RBC Hgb Hct MCV MCH MCHC RDW Std Deviation RDW Coeff of Flaquito Plt Count MPV Immature Gran % (Auto) Neut % (Auto) Lymph % (Auto) [place] % (Auto) Eos % (Auto) Baso % (Auto) Neut # (Auto) Lymph # (Auto) [place] # (Auto) Eos # (Auto) Baso # (Auto) Immature Gran # (Auto) RBC Morphology Sodium 137 Cancelled Potassium 3.9 Cancelled Chloride 109 H Cancelled Carbon Dioxide 22 Cancelled Anion Gap 6 Cancelled BUN 14 Cancelled Creatinine 0.36 L Cancelled Est Cr Clr Drug Dosing 203.7 Cancelled Est GFR ( Amer) > 150.0 Cancelled Est GFR (Non-Af Amer) 148.8 Cancelled BUN/Creatinine Ratio 38.9 H Cancelled Glucose 85 Cancelled POC Glucose 76 Calcium 8.6 Cancelled Phosphorus 2.8 Cancelled Magnesium 2.1 Cancelled Total Creatine Kinase C-Reactive Protein 22.79 H Blood Type Blood Type Recheck Antibody Screen Crossmatch Diagnostic Findings Microbiology 10/08/22 10:24 Blood Aerobic Blood Culture - Final No growth in Aerobic bottle after 5 days. 10/08/22 10:24 Blood Anaerobic Blood Culture - Final No growth in Anaerobic bottle after 5 days. 10/08/22 10:24 Blood Aerobic Blood Culture - Final No growth in Aerobic bottle after 5 days. 10/08/22 10:24 Blood Anaerobic Blood Culture - Final 10/10/22 11:25 Sputum,Trach Gram Stain - Final 10/10/22 11:25 Sputum,Trach Sputum Culture - Preliminary Pseudomonas aeruginosa Corynebacterium species 10/11/22 07:21 Blood Aerobic Blood Culture - Preliminary No growth in Aerobic bottle after 48 hours. 10/11/22 07:21 Blood Anaerobic Blood Culture - Preliminary No growth in Anaerobic bottle after 48 hours. 10/11/22 07:39 Blood Aerobic Blood Culture - Preliminary No growth in Aerobic bottle after 48 hours. 10/11/22 07:39 Blood Anaerobic Blood Culture - Final 10/08/22 14:40 Bronch Wash,Left Lower Lobe Acid Fast Bacilli Smear - Final 10/08/22 14:40 Bronch Wash,Left Lower Lobe Acid Fast Bacilli Culture - Preliminary No Acid-Fast Bacilli Isolated - Report 1, Additional Report to Follow. 10/11/22 07:21 Blood Fungal Smear - Final 10/08/22 14:40 Bronch Wash,Left Lower Lobe Fungal Smear - Final 10/08/22 14:40 Bronch Wash,Left Lower Lobe Fungal Culture - Preliminary No yeast or fungus isolated - Report 1, Additional Report to Follow. 10/08/22 14:40 Bronch Wash,Left Lower Lobe Gram Stain - Final 10/08/22 14:40 Bronch Wash,Left Lower Lobe Bronchial Culture - Final Light normal dawit. Medications Administered Home Medications Medication Instructions Recorded Confirmed Last Taken food supplemt, lactose-reduced 1.5 ea PO QID@07,1130,,07/28/18 10/08/22 05/13/21 0.04 gram-1 kcal/mL oral liquid (Boost) water 120 ea PO QID@07,1130,,07/28/18 10/08/22 05/13/21 acetaminophen 160 mg/5 mL oral 640 mg (20 mL) PO Q6H PRN fever or 12/21/18 10/08/22 Unknown liquid pain #473 mL ibuprofen 100 mg/5 mL oral See Rx Instructions PO Q6H PRN 12/21/18 10/08/22 Unknown suspension fever or pain #473 mL disposable gloves #100 ea 05/12/19 03/21/22 Unknown incontinence pad, liner, disp #20 ea 05/12/19 03/21/22 Unknown Miscellaneous Medical Supply #1 ea 02/22/20 03/21/22 Unknown (Hospital Bed) nut.tx.,elemental,vmxluqf-soat-yjk 1 ea feeding tube DAILY@1100 08/04/20 10/08/22 05/12/21 11:00 14 gram-230 kcal/45 mL liquid pkt (Xtracal Plus) nebulizers #1 ea 11/01/20 03/21/22 Unknown miscellaneous medical supply 1 ea miscellaneous ONCE #1 ea 12/06/20 03/21/22 Unknown miscellaneous medical supply 1 ea miscellaneous ONCE #1 ea 12/06/20 03/21/22 Unk nown incontinence pad, liner, disp #75 ea 01/03/21 03/21/22 Unknown miscellaneous medical supply 1 ea miscellaneous ONCE #180 ea 01/03/21 03/21/22 Unknown miscellaneous medical supply #30 ea 01/31/21 03/21/22 Unknown (Ava Tracheostomy Care Tray) cetirizine 10 mg tablet 10 mg feeding tube QAM #90 tabs 11/29/21 10/08/22 Unknown polyethylene glycol 3350 17 See Rx Instructions .Route 11/29/21 10/08/22 Unknown gram/dose oral powder .COMPLEX #1,530 grams trazodone 50 mg tablet 50 mg feeding tube HS #90 tabs 11/29/21 10/08/22 Unknown Miscellaneous Pulmonary Supply #1 ea 12/23/21 03/21/22 Unknown clonazepam 0.5 mg disintegrating 0.5 mg feeding tube DIRECTED 01/06/22 10/08/22 Unknown tablet PRN PROLONGED SEIZURES #30 tabs diaper,brief,adult,disposable (Day #180 ea 03/25/22 Unknown and Night Brief, Large) albuterol sulfate 2.5 mg/3 mL 2.5 mg (3 mL) inhalation Q4H PRN 04/30/22 10/08/22 Unknown (0.083 %) solution for nebulization Wheezing/ shortness of breath #540 mL acetylcysteine 200 mg/mL (20 %) 3 ml inhalation BID #100 mL 06/12/22 10/08/22 Unknown solution baclofen 20 mg tablet 20 mg feeding tube TID 30 days #90 08/13/22 10/08/22 Unknown tabs fluoxetine 20 mg tablet 20 mg feeding tube QDL #30 tabs 08/13/22 10/08/22 Unknown zonisamide 100 mg capsule 200 mg feeding tube .COMPLEX 30 08/13/22 10/08/22 Unknown days #90 caps budesonide 0.5 mg/2 mL suspension 0.5 mg (2 mL) inhalation BID #120 08/18/22 10/08/22 Unknown for nebulization mL sodium chloride 7 % for 4 ml inhalation BID PRN Other 09/26/22 10/08/22 Unknown nebulization tobramycin with nebulizer 300 mg/5 300 mg inhalation DIRECTED 09/26/22 10/08/22 Unknown mL solution for nebulization ciprofloxacin HCl 750 mg tablet 750 mg feeding tube Q8H #36 tabs 09/28/22 10/08/22 Unknown albuterol sulfate 2.5 mg/3 mL See Rx Instructions .Route .COMPLEX 10/08/22 10/08/22 Unknown (0.083 %) solution for nebulization valproic acid (as sodium salt) 250 550 mg feeding tube TID 10/08/22 10/08/22 Unknown mg/5 mL oral solution Active Medications Generic Name Dose Route Start Last Admin Trade Name Freq PRN Reason Stop Dose Admin Acetylcysteine 3 ml 10/08/22 19:00 10/13/22 07:43 Acetylcysteine 20% Inhal Soln 4ml Dispensed By Resp. INH 11/07/22 18:59 3 ml BIDR KENNEDY Administration Albuterol 2.5 mg 10/11/22 11:00 10/13/22 10:09 Albuterol 0.083% Nebu Soln 3 Ml Vial NEB 11/10/22 10:59 2.5 mg QIDR KENNEDY Administration Protocol Baclofen 20 mg 10/08/22 14:30 10/12/22 20:09 Baclofen 20 Mg Tab PEG 11/07/22 14:29 20 mg TID KENNEDY Administration Budesonide 0.5 mg 10/08/22 19:00 10/13/22 07:43 Budesonide 0.5 Mg/2 Ml Vial (Pulmicort) INH 11/07/22 18:59 0.5 mg BIDR KENNEDY Administration Cetirizine HCl 10 mg 10/09/22 09:00 10/12/22 07:42 Cetirizine Hcl 10 Mg Tablet PO 11/08/22 08:59 10 mg QAM KENNEDY Administration Clonazepam 0.5 mg 10/08/22 14:16 10/10/22 21:14 Clonazepam 0.5 Mg Tab PO 11/07/22 14:15 0.5 mg DAILY PRN Administration PROLONGED SEIZURES Doxycycline Hyclate 100 mg 10/11/22 21:00 10/12/22 20:09 Doxycycline Hyclate 100 Mg Cap PO 10/25/22 20:59 100 mg BID KENNEDY Administration Fluoxetine HCl 20 mg 10/09/22 11:30 10/12/22 12:28 Fluoxetine Hcl 20 Mg/5 Ml Udp PO 11/08/22 11:29 20 mg QDL KENNEDY Administration Dexmedetomidine/Sodium Chloride 200 mcg in 50 mls @ 4.065 mls/hr 10/11/22 19:45 10/13/22 10:28 Precedex IV 10/15/22 19:44 0.3 mcg/kg/hr .[id number] KENNEDY 4.1 mls/hr Administration Protocol 0.3 MCG/KG/HR Pantoprazole Sodium 40 mg/ 10 mls @ 5 mls/min 10/12/22 09:00 10/13/22 08:11 Syringe IV 11/11/22 08:59 5 mls/min BID KENNEDY Administration Ceftolozane/Tazobactam 3,000 122.8 mls @ 122.8 mls/hr 10/12/22 08:00 10/13/22 08:11 mg/ Dextrose IV 10/19/22 07:59 122.8 mls/hr Q8H KENNEDY Administration Protocol Morphine Sulfate 2 mg 10/08/22 13:51 10/12/22 22:15 Morphine Sulfate 2 Mg/Ml Carp IV 10/22/22 13:50 2 mg Q4 PRN Administration Moderate Pain (Scale 4, 5, 6) Nutritional Formula 350 ml 10/11/22 15:30 10/12/22 07:39 Patient's Own Enteral Feeding PEG 11/10/22 15:29 350 ml 0700,1130,1530,2000 KENNEDY Administration Sterile Water 120 ml 10/08/22 15:00 10/13/22 06:27 Tube Feeding Water Flush PO 11/07/22 14:59 Not Given QID@07,1130,15,19 KENNEDY Trazodone HCl 50 mg 10/08/22 21:00 10/12/22 20:09 Trazodone Hcl 50 Mg Tab PEG 11/07/22 20:59 50 mg HS KENNEDY Administration Valproic Acid 550 mg 10/08/22 14:30 10/12/22 20:08 Valproic Acid 50 Mg/Ml Udp PEG 11/07/22 14:29 550 mg TID KENNEDY Administration Zonisamide 2 each 10/09/22 09:00 10/12/22 07:43 Zonisamide 100mg Capsules PO 11/08/22 08:59 2 each QAM KENNEDY Administration Zonisamide 1 each 10/08/22 21:00 10/12/22 20:09 Zonisamide 100mg Capsules PO 11/07/22 20:59 1 each HS KENNEDY Administration (2) Bilateral pneumonia Lung location: lower lobe of lung Pneumonia type: due to unspecified organism Qualified Code(s): J18.9 - Pneumonia, unspecified organism (3) Sepsis Sepsis acute organ dysfunction status: unspecified Sepsis type: sepsis due to unspecified organism Qualified Code(s): A41.9 - Sepsis, unspecified organism
[2022-10-13] MEDS: VALPROIC ACID 50 MG/ML UDP PEG SCH ×3 (12:53→19:50)
[2022-10-13] MEDS: BACLOFEN 20 MG TAB PEG SCH ×3 (12:53→19:53)
[2022-10-13] MEDS: POLYETHYLENE (MIRALAX) 17 GM PACK PEG SCH (13:51)
[2022-10-13] MEDS: CETIRIZINE HCL 10 MG TABLET PO SCH (13:51)
[2022-10-13] MEDS: ZONISAMIDE 100 MG PO SCH ×2 (13:51→19:53)
[2022-10-13] MEDS: DOXYCYCLINE HYCLATE 100 MG CAP PO SCH ×2 (13:51→19:53)
[2022-10-13] MEDS: ALBUMIN 25% 12.5 GM/50 ML VIAL IV SCH ×2 (13:55→15:11)
[2022-10-13] MEDS ORDERED: FUROSEMIDE 40 MG/4 ML VIAL IV ONE (16:00)
--- NOTE | 2022-10-13 16:04 | Hospitalist Progress Note ---
Date of Service October 13, 2022 Assessment & Plan (1) Acute respiratory failure with hypoxia: Plan: Patient with chronic ventilator use at night trach collar during the day now requiring ventilator throughout the day Concern for sepsis on presentation with leukocytosis tachycardia and hypotension, multifocal pneumonia concern for gram negative pneumonia Blood cultures currently negative to date initial concerns were focused pulmonary as she has had issues with resistant Pseudomonas in the past subsequently we pursued a bronchoscopy with some mucus removed and cultures obtained. Initially was placed on cefepime then Zosyn now Ceftolazone-tazobactam(started 10/12/22) per infectious disease recommendation also continues on Doxycycline and inhaled tobramycin CT scan of head neck chest abdomen pelvis may suggest acalculus cholecystitis however there is also comments on progression of multifocal pneumonia doxycycline was added for atypical coverage. General surgery did see and are ordering HIDA scan for 10/13 our first possible availability We will continue her typical pulmonary support with albuterol nebulizer scheduled and as needed Mucomyst scheduled Pulmicort plus nebulized tobramycin. Patient does use a chest vest and CoughAssist at home Discussion with mother, continue supportive care at this time but no escalation to significant surgery or procedures (2) Anemia: Plan: Pt has had HGb trend down to 7.6, stop ibuprofen, start bolus protonix, transfuse 1 u prbc ? if this is part of her pain issue, maybe from discard when drawing blood from picc line, this is 10cc per draw discarded trend hgb after transfusion (3) Quadriplegic cerebral palsy: Plan: Pt typically with trache and peg tube support bowel regimen with daily miralax continue tube feeds and free water flushes with improvement in hyponatremia patient's been on ventilator with precedex infusion (4) Seizure disorder: Plan: valproic acid level is slightly elevated, last admission due to meropenem did have elevation of dose for a time, level is 110( high normal is 100)will reduce dose to 500 from 550 level did improve we will follow (5) Allergic rhinitis: Plan: continue claritan Plan patient's hyponatremia is improved continue free water flushes of tube feeds as previous patient remains persistently tachycardic likely her physiology is still under duress we will check inflammatory markers in the morning to trend if improving pt is a conditional code outlook remains Admission and Anticipated Discharge Date Admission Date: October 08, 2022 Subjective patient remains intermittently febrile the finding the exact cause of her fever is still undisclosed. Does have multifocal pneumonia and pending HIDA scan to look for a calculus cholecystitis. Changed to ceftolozane tazobactam on 10/12 continues on doxycycline. Considerations for diuresis to improve oxygenation will be undertaken today. Was transfused 1 unit packed red blood cells on 10/12/2022 Physical Exam Physical Exam: patient appears agitated and uncomfortable. She is nonverbal. Seems to have some discomfort about examining her abdomen. Lung sounds are coarse she is ventilated through trach Results & Data Results & Data Vital Signs (Past 12 Hours) Vital Signs Temp Pulse Pulse Resp BP BP Pulse Ox 10/13/22 13:36 100.2 F H 29 H 100 10/13/22 11:00 101.1 F H 117 H 28 H 10/13/22 11:00 116/68 10/13/22 10:38 107/59 L 10/13/22 10:38 101.3 F H 116 H 38 H 82 L 10/13/22 10:00 101.3 F H 103 H 25 H 98 10/13/22 10:00 85/53 L 10/13/22 13:49 10/13/22 12:00 10/13/22 10:17 99 H 25 H 96 10/13/22 10:17 99 H 25 H 96 10/13/22 09:00 100.6 F H 144 H 15 10/13/22 08:00 100.0 F H 106 H 24 99 10/13/22 08:00 89/59 L 10/13/22 07:55 99.9 F H 116 H 34 H 93 10/13/22 09:13 10/13/22 08:00 10/13/22 08:09 102 H 30 H 92 10/13/22 06:00 97 H 24 89/59 L 92 10/13/22 05:00 77 22 88/53 L 96 O2 Del Method O2 Del Method FiO2 10/13/22 13:36 10/13/22 11:00 10/13/22 11:00 10/13/22 10:38 10/13/22 10:38 10/13/22 10:00 10/13/22 10:00 10/13/22 13:49 Mechanical Vent 10/13/22 12:00 80 10/13/22 10:17 80 10/13/22 10:17 Mechanical Vent 80 10/13/22 09:00 10/13/22 08:00 10/13/22 08:00 10/13/22 07:55 10/13/22 09:13 Mechanical Vent 60 10/13/22 08:00 60 10/13/22 08:09 60 10/13/22 06:00 Mechanical Vent 60 10/13/22 05:00 Mechanical Vent 60 Laboratory Results reviewed CBC reviewed chemistry CRP has come down slightly since the tubing antibiotic therapy with ceftolozane tazobactam PG Care Time/CCT Total # of Minutes Spent Total Time Spent with Patient: Total time spent is greater than 50% in coordination of care (as documented) at patient's floor/unit and/or counseling patient: Coding Level of Care Code 26636 SUB INP/OBS CARE 2/35MIN Diagnoses Acute respiratory failure with hypoxia J96.01 Anemia D64.9 Anemia type: unspecified type Quadriplegic cerebral palsy G80.8 Seizure disorder G40.909 Allergic rhinitis J30.9 (2) Anemia Anemia type: unspecified type Qualified Code(s): D64.9 - Anemia, unspecified
[2022-10-13] MEDS: ICU ELECTROLYTE REPLACEMENT PROTOCOL SCH (17:31)
[2022-10-13] MEDS: MoRPHine SULFATE 2 MG/ML CARP IV PRN (17:48)
--- NOTE | 2022-10-13 18:00 | Nuclear Medicine Report ---
NM hepatobiliary EF CLINICAL HISTORY: r/o acute cholecystitis TECHNIQUE: Following the intravenous injection of 5 mCi of Tc-99m labeled Technetium 99m mebrofenin, multiple images of the upper abdomen were obtained in the anterior projection with uptake measuremen ts of the gallbladder obtained. Once the gallbladder and small bowel were visualized, the patient was intravenously infused over 30 minutes with 0.02 mcg/kg of Sincalide (CCK), and imaging and uptakes w ere again obtained. Comparison: Comparison is made to right upper quadrant ultrasound 10/11/2022 FINDINGS: Sequential images demonstrate normal uptake in the liver, common bile duct, gallbladder, an d small bowel. No defects in uptake are identified. Subsequent imaging after the administration of si ncalide demonstrates prompt elimination of the radiotracer from the gallbladder. The calculated gallbladder ejection fraction based on uptake measurements is 39%. However, further de layed images up to 44 minutes demonstrated lesser degree of excretion. IMPRESSION: Normal uptake of tracer, no acute cholecystitis. Excretion of contrast is stable to mildly delayed, e quivocal for chronic cholecystitis. Reference: Normal gallbladder ejection fraction is greater than 33%. ACT 112: Negative or not required by law. Electronically signed by: Raudel Rich M.D. 10/13/2022 5:58 PM
[2022-10-13] MEDS: ACETAMINOPHEN 1,000 MG/100 ML VIAL IV PRN (18:39)
[2022-10-13] MEDS: traZODone HCL 50 MG TAB PEG SCH (19:52)
[2022-10-14] MEDS: ACETAMINOPHEN 1,000 MG/100 ML VIAL IV PRN ×2 (04:09→18:12)
[2022-10-14] MEDS: dexMEDEtomidine 200 MCG/50 ML BAG IV SCH ×2 (04:18→14:15)
[2022-10-14 04:38] LABS: Basophils # (auto) 0.03 K/uL (0-0.2); Basophils % (auto) 0.4 %; Eosinophils # (auto) 0.07 K/uL (0-0.50); Eosinophils % (auto) 0.9 %; Hematocrit (blood only) 29.3 % (37.0-47.0); Hemoglobin 9.6 g/dl (12.0-16.0); Immature Granulocytes # (auto) 0.06 K/uL (0.01-0.20); Immature Granulocytes % (auto) 0.7 %; Lymphocytes # (auto) 1.09 K/uL (1.2-3.4); Lymphocytes % (auto) 13.4 %; Mean Corpuscular Hemoglobin 31.8 pg (25.0-34.0); Mean Corpuscular Hgb Conc 32.8 g/dL (32.0-36.0); Mean Platelet Volume 9.5 fL (9.4-12.4); Monocytes # (auto) 0.84 K/uL (0.11-0.59); Monocytes % (auto) 10.3 %; Neutrophils # (auto) 6.05 K/uL (1.40-6.50); Neutrophils % (auto) 74.3 %; Platelet Count 238 K/uL (130-400); RDW Coefficient of Variation 14.2 % (11.5-14.5); RDW Standard Deviation 50.5 fL (36.4-46.3); Red Blood Count 3.02 M/uL (4.20-5.40); White Blood Count 8.14 K/ul (4.8-10.8)
[2022-10-14 05:06] LABS: Anion Gap 9 (3-11); BUN Creatinine Ratio 32.6 (10-20); Blood Urea Nitrogen 14 mg/dl (6-23); Calcium 9.2 mg/dl (8.6-10.3); Carbon Dioxide 24 mmol/L (21-32); Chloride 104 mmol/L (98-107); Creatinine Clr Calc Pharmacy 170.6 ml/min; Est GFR (African American) > 150.0 ml/min; Est GFR (Non-African American) 140.4 ml/min; Glucose 71 mg/dl (70-99(Fasting)); Magnesium 2.1 mg/dl (1.7-2.4); Phosphorus 4.2 mg/dl (2.5-4.9); Potassium 3.8 mmol/L (3.5-5.1); Sodium 137 mmol/L (136-145)
[2022-10-14] MEDS: ICU ELECTROLYTE REPLACEMENT PROTOCOL SCH ×2 (05:11→18:10)
[2022-10-14] MEDS: TUBE FEEDING WATER FLUSH PO SCH ×4 (05:47→20:11)
[2022-10-14] MEDS: POTASSIUM CHLORIDE 20 MEQ/15 ML UDC NG SCH ×2 (05:47→08:18)
--- NOTE | 2022-10-14 06:08 | Electrocardiogram Report ---
Test Reason : Blood Pressure : / mmHG Vent. Rate : 082 BPM Atrial Rate : 082 BPM P-R Int : 130 ms QRS Dur : 076 ms QT Int : 384 ms P-R-T Axes : 045 048 023 degrees QTc Int : 448 ms Normal sinus rhythm Low voltage QRS Nonspecific T wave abnormality Abnormal ECG When compared with ECG of 08-OCT-2022 10:38, Vent. rate has decreased BY 52 BPM Confirmed by Bashir Peraza ([id number]) on 10/14/2022 6:07:48 AM Referred By: REFERRED SELF Confirmed By:Bashir Peraza
--- NOTE | 2022-10-14 07:37 | Critical Care Progress Note ---
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: (8) Mucus plugging of bronchi: (9) Quadriplegic cerebral palsy: (10) Seizure disorder: Plan Reason Critically Ill: Acute on chronic hypoxic respiratory failure PLAN: Neuro: Cerebral palsy -Continue current antiepileptics: Depakote level reviewed Resp: Acute hypoxic respiratory failure -Status post bronchoscopy 10/08: Light normal dawit -Requiring supplemental support from invasive mechanical ventilator Bilateral pleural effusions -Small to moderate -BNP 440 on 10/14/2022 -Continue pulmonary toilet CV: Tachycardia: Chronic --Pericardial effusion -Negative troponins and EKG unremarkable previous echo indicated this effusion was smaller than years prior Fluids/Renal: Urine unremarkable, wears diapers chronically Hyponatremia: Improving -Appears to occur during episodes of physiologic stress/infection ID: Abx: Cefepime 10/08 - 10/10 Pip-tazo 10/08, 10/10 - 10/12 Doxycycline 10/11 - present: planned 14 days ceftolozane-tazobactam 10/12-10/13 Ceftazidime 10/13 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 --> resistant to levofloxacin, tobramycin as well as gentamicin Sepsis Febrile illness: infectious disease consult reviewed: Transition to ceftolozane- tazobactam 3 g IV q8h extended infusion for pseudomonal resistance -Ears and oropharynx had been examined, no evidence of otitis media, pharyngitis clinically -BioFire negative -Respiratory culture: Light normal dawit, tracheal culture obtained and sensitivities pending - Small Pericardial effusion: No real clinical indication for purulent pericarditis -Follow-up MANDO, RF, CPK to r/o autoimmune etiology - Brother recently diagnosed with multiple sclerosis -Follow-up mycoplasma IgG, IgM, urinary legionella - Prolonged QTc: likely secondary to high dose ciprofloxacin - Repeat EKG: last QTc 558, reviewed previous 5 EKG reports patient has not had prolonged QTc previously -Empiric doxycycline x 14 days versus Zithromax for empiric atypical pneumonia coverage -Patient previously on high-dose ciprofloxacin 750mg PO Q8 hours on 09/28/22 for 14 days. Received minimum 10 days with to D/C on admission (10/07 2pm dose given) for long QTc -Leukocytosis: Improving -Converted to Zerbaxa extended infusion -Repeat blood cultures and fungal culture obtained 10/11: No growth to date -Cholelithiasis --> given normal alk phos, possibility of cholecystitis is low --> HIDA scan negative for signs of cholecystitis 10/13/2022 Liver ultrasound 10/11/2022: Distended gallbladder with layering sludge GI/Nutrition: N.p.o. Heme: Chronic quadriplegic cerebral palsy, no indication for DVT prophylaxis Endocrine: ICU hyperglycemia protocol TSH and T4 within normal limits --Prophylaxis VTE: IPC GI: Pantoprazole --No escalation of care Lines: PICC line 10/11/2022 Diet:Tube feeds Plan: In/out: -390, urine output 1410, +4.2 L since coming to the hospital HIDA scan was negative. Unlikely to be cholecystitis Continue with antibiotics for Pseudomonas in the sputum. Antibiotics was again changed to ceftazidime by infectious disease Try to taper off Precedex if possible Potassium being replaced H&H is stable, will start subcu heparin We will give another dose of Lasix 40 mg which was be following 25% albumin We will try to resume tube feeds today at a lower rate I have personally spent 38 minutes of critical care time in the direct management of this patient. This is a life/limb threatening event. This includes time spent evaluating patient, direct bedside care, chart review, placing orders, interpretation of di agnostic studies, discussion with consultants, patient, and family members, as well as other required patient management activities. This time is exclusive of all separately billable procedures, and teaching time and separate from and in addition to any other critical care service time. Please note the above document was generated using voice recognition software. It may contain grammatical, syntax or spelling errors. Admission and Anticipated Discharge Date Admission Date: October 08, 2022 Subjective Patient seen and examined at bedside. No acute distress, no adverse events overnight Was 1.4 Precedex at the time of examination Saturating 92-93% on 45% FiO2 Spiking low-grade fever. Review of Systems Review of Systems: Unobtainable due to mental health condition and Unobtainabl e due to cognitive status Physical Exam Physical Exam: Constitutional: No acute distress HEENT: EOMI, PERRLA Respiratory system: Decreased entry bilaterally, no wheeze, no rhonchi, positive crackles bilaterally CVS: S1-S2 positive, no murmurs or gallops Abdomen: Soft, nontender, nondistended, positive bowel sounds x4, positive J Tube Extremities: +2 pulses bilaterally radialis/ dorsalis pedis, no cyanosis, no edema Neuro: Moving bilateral upper extremities and lower extremities simultaneously Psych: Unable to assess G/U: Positive Cota Skin: no rashes, warm and dry Lymphatic: no cervical or axillary lymphadenopathy Results & Data Results & Data Vital Signs (Past 12 Hours) Vital Signs Temp Pulse Pulse Resp BP BP Pulse Ox 10/14/22 06:00 37.5 C 75 24 108/72 95 10/14/22 05:00 37.4 C 80 16 101/65 96 10/14/22 04:00 37.5 C 81 22 121/75 94 10/14/22 04:00 10/14/22 03:00 37.4 C 74 18 113/64 95 10/14/22 02:41 74 16 98 10/14/22 02:00 37.4 C 72 18 106/59 L 97 10/14/22 01:00 37.4 C 75 17 108/56 L 99 10/14/22 00:00 37.6 C H 78 18 108/54 L 99 10/14/22 00:00 10/13/22 23:31 88 24 99 10/13/22 23:00 37.7 C H 81 14 96/56 L 99 10/13/22 22:00 37.8 C H 87 15 94/54 L 97 10/13/22 21:00 38.0 C H 96 H 20 101/51 L 100 10/13/22 20:00 38.7 C H 93 H 23 107/54 L 97 10/13/22 20:16 91 H 26 H 96 10/13/22 20:00 10/13/22 20:00 10/13/22 19:36 38.7 C H 111 H 25 H 95/60 L 95 O2 Del Method FiO2 10/14/22 06:00 Mechanical Vent 45 10/14/22 05:00 Mechanical Vent 45 10/14/22 04:00 Mechanical Vent 45 10/14/22 04:00 45 10/14/22 03:00 Mechanical Vent 45 10/14/22 02:41 40 10/14/22 02:00 Mechanical Vent 50 10/14/22 01:00 Mechanical Vent 50 10/14/22 00:00 Mechanical Vent 60 10/14/22 00:00 60 10/13/22 23:31 60 10/13/22 23:00 Mechanical Vent 60 10/13/22 22:00 Mechanical Vent 60 10/13/22 21:00 Mechanical Vent 70 10/13/22 20:00 Mechanical Vent 70 10/13/22 20:16 70 10/13/22 20:00 Mechanical Vent 70 10/13/22 20:00 70 10/13/22 19:36 Mechanical Vent 70 Laboratory Results 10/14/22 04:11 10/14/22 04:11 Coding Level of Care Code 62433 CRITICAL CARE 1ST 30-74M Diagnoses Sepsis A41.9 Sepsis acute organ dysfunction status: unspecified Sepsis type: sepsis due to unspecified organism Acute respiratory failure with hypoxia J96.01 Sepsis due to pneumonia J18.9; A41.9 Bronchiectasis J47.9 Bilateral pneumonia J18.9 Lung location: lower lobe of lung Pneumonia type: due to unspecified organism Muscle spasticity M62.838 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
[2022-10-14] MEDS: BUDESONIDE 0.5 MG/2 ML VIAL (PULMICORT) INH SCH ×2 (07:41→19:33)
[2022-10-14] MEDS: ACETYLCYSTEINE 20% INHAL SOLN 4ML ***DISPENSED BY RESP. INH SCH ×2 (07:42→20:13)
[2022-10-14] MEDS: ALBUTEROL 0.083% NEBU SOLN 3 ML VIAL NEB SCH ×4 (07:42→19:33)
[2022-10-14] MEDS: VALPROIC ACID 50 MG/ML UDP PEG SCH ×3 (08:18→20:10)
[2022-10-14] MEDS: CETIRIZINE HCL 10 MG TABLET PO SCH (08:19)
[2022-10-14] MEDS: DOXYCYCLINE HYCLATE 100 MG CAP PO SCH ×2 (08:19→20:14)
[2022-10-14] MEDS: POLYETHYLENE (MIRALAX) 17 GM PACK PEG SCH (08:19)
[2022-10-14] MEDS: BACLOFEN 20 MG TAB PEG SCH ×3 (08:19→20:11)
[2022-10-14] MEDS: ZONISAMIDE 100 MG PO SCH ×2 (08:19→20:11)
[2022-10-14] MEDS: PANTOprazole 40 MG in SYRINGE 0 ML IV SCH ×2 (08:19→20:10)
--- NOTE | 2022-10-14 08:52 | Surgery Progress Note ---
Date of Service October 14, 2022 Assessment & Plan (1) Sepsis: Plan: HIDA images and results were personally viewed interpreted by myself The gallbladder fills therefore she does not have acute cholecystitis Surgery will sign off at this time, please call with any questions or concerns Admission and Anticipated Discharge Date Admission Date: October 08, 2022 Subjective Patient seen and examined. No acute events overnight. HIDA scan was performed yesterday and was negative. Review of Systems Constitutional: no fever and no chills Physical Exam Constitutional: WD/WN, vitals as above Gastrointestinal (Abdomen): normal bowel sounds, soft, nontender, no hepatosplenomegaly Results & Data Vital Signs (Past 12 Hours) Vital Signs Temp Pulse Pulse Resp BP BP Pulse Ox 10/14/22 08:00 10/14/22 08:00 72 10/14/22 07:51 10/14/22 07:49 72 10/14/22 07:48 84 19 94 10/14/22 06:00 37.5 C 75 24 108/72 95 10/14/22 05:00 37.4 C 80 16 101/65 96 10/14/22 04:00 37.5 C 81 22 121/75 94 10/14/22 04:00 10/14/22 03:00 37.4 C 74 18 113/64 95 10/14/22 02:41 74 16 98 10/14/22 02:00 37.4 C 72 18 106/59 L 97 10/14/22 01:00 37.4 C 75 17 108/56 L 99 10/14/22 00:00 37.6 C H 78 18 108/54 L 99 10/14/22 00:00 10/13/22 23:31 88 24 99 10/13/22 23:00 37.7 C H 81 14 96/56 L 99 10/13/22 22:00 37.8 C H 87 15 94/54 L 97 10/13/22 21:00 38.0 C H 96 H 20 101/51 L 100 O2 Del Method FiO2 10/14/22 08:00 45 10/14/22 08:00 10/14/22 07:51 Mechanical Vent 45 10/14/22 07:49 10/14/22 07:48 40 10/14/22 06:00 Mechanical Vent 45 10/14/22 05:00 Mechanical Vent 45 10/14/22 04:00 Mechanical Vent 45 10/14/22 04:00 45 10/14/22 03:00 Mechanical Vent 45 10/14/22 02:41 40 10/14/22 02:00 Mechanical Vent 50 10/14/22 01:00 Mechanical Vent 50 10/14/22 00:00 Mechanical Vent 60 10/14/22 00:00 60 10/13/22 23:31 60 10/13/22 23:00 Mechanical Vent 60 10/13/22 22:00 Mechanical Vent 60 10/13/22 21:00 Mechanical Vent 70 PG Care Time/CCT Total # of Minutes Spent Total Time Spent with Patient: Total time spent is greater than 50% in coordination of care (as documented) at patient's floor/unit and/or counseling patient: Coding Level of Care Code 52922 SUB INP/OBS CARE 03/19MIN Diagnoses Sepsis A41.9 Sepsis acute organ dysfunction status: unspecified Sepsis type: sepsis due to unspecified organism (1) Sepsis Sepsis acute organ dysfunction status: unspecified Sepsis type: sepsis due to unspecified organism Qualified Code(s): A41.9 - Sepsis, unspecified organism
[2022-10-14] MEDS: ALBUMIN 25% 12.5 GM/50 ML VIAL IV SCH ×2 (09:57→11:10)
[2022-10-14] MEDS: HEPARIN SOD 5,000 UNIT/0.5 ML VIAL SQ SCH ×2 (09:58→20:13)
[2022-10-14] MEDS ORDERED: FUROSEMIDE 40 MG/4 ML VIAL IV ONE (11:30)
[2022-10-14] MEDS: PATIENT'S OWN ENTERAL FEEDING PEG SCH ×2 (15:25→20:11)
[2022-10-14] MEDS: MoRPHine SULFATE 2 MG/ML CARP IV PRN (17:24)
--- NOTE | 2022-10-14 18:54 | Hospitalist Progress Note ---
Date of Service October 14, 2022 Assessment & Plan (1) Acute respiratory failure with hypoxia: Plan: Patient with chronic ventilator use at night trach collar during the day now requiring ventilator throughout the day Concern for sepsis on presentation with leukocytosis tachycardia and hypotension, multifocal pneumonia concern for gram negative pneumonia Blood cultures currently negative to date initial concerns were focused pulmonary as she has had issues with resistant Pseudomonas in the past subsequently we pursued a bronchoscopy with some mucus removed and cultures obtained. Initially was placed on cefepime then Zosyn then Ceftolazone-tazobactam(started 10/12/22) and now ceftazidime per infectious disease recommendation also continues on Doxycycline and inhaled tobramycin has been discontinued CT scan of head neck chest abdomen pelvis may suggest acalculus cholecystitis however there is also comments on progression of multifocal pneumonia doxycycline was added for atypical coverage. General surgery did see and ordered HIDA scan for 10/13 showing normal gallbladder ejection fraction We will continue her typical pulmonary support with albuterol nebulizer scheduled and as needed Mucomyst scheduled Pulmicort plus nebulized tobramycin. Patient does use a chest vest and CoughAssist at home Diuresis to assist in ventilation is being accomplished with Lasix and albumin Discussion with mother, continue supportive care at this time but no escalation to significant surgery or procedures (2) Anemia: Plan: Pt has had HGb trend down to 7.6, stop ibuprofen, start bolus protonix, transfuse 1 u prbc ? if this is part of her pain issue, maybe from discard when drawing blood from picc line, this is 10cc per draw discarded trend hgb after transfusion (3) Quadriplegic cerebral palsy: Plan: Pt typically with trache and peg tube support bowel regimen with daily miralax Restart tube feeds and free water flushes with improvement in hyponatremia patient's been on ventilator with precedex infusion (4) Seizure disorder: Plan: valproic acid level is slightly elevated, last admission due to meropenem did have elevation of dose for a time, level is 110( high normal is 100)will reduce dose to 500 from 550 level did improve we will follow (5) Allergic rhinitis: Plan: continue claritan Plan patient's hyponatremia is improved continue free water flushes of tube feeds as previous patient remains persistently tachycardic likely her physiology is still under duress we will check inflammatory markers in the morning to trend if improving pt is a conditional code outlook remains Admission and Anticipated Discharge Date Admission Date: October 08, 2022 Subjective Patient is less agitated today remains on Precedex therapy. Remains ventilated. Antibiotics have been changed. HIDA scan does not show acute calculus cholecystitis tube feedings restarted on 10/14/2022 Physical Exam Physical Exam: patient appears more comfortable remains on Precedex she is nonverbal. Seems to have resolution of discomfort about examining her abdomen. Lung sounds are coarse she is ventilated through trach Results & Data Results & Data Vital Signs (Past 12 Hours) Vital Signs Temp Pulse Resp BP Pulse Ox O2 Del Method FiO2 10/14/22 18:00 99.9 F H 84 22 91 Mechanical Vent 55 10/14/22 18:00 102/68 10/14/22 17:00 99.5 F 90 23 89 L 10/14/22 17:00 107/66 10/14/22 17:40 84 L Mechanical Vent 55 10/14/22 16:00 99.3 F 98 H 33 H 97 10/14/22 16:00 104/64 10/14/22 15:00 99.3 F 95 H 21 92 10/14/22 15:00 101/55 L 10/14/22 16:00 45 10/14/22 16:00 90 10/14/22 14:00 99.1 F 92 H 22 10/14/22 14:00 95/48 L 10/14/22 13:00 99.0 F 88 21 10/14/22 13:00 101/62 10/14/22 14:24 100 H 18 94 45 10/14/22 12:00 99.0 F 90 21 10/14/22 12:00 101/64 10/14/22 11:00 99.1 F 79 19 97 10/14/22 11:00 95/56 L 10/14/22 10:00 99.1 F 80 27 H 98 10/14/22 10:00 93/57 L 10/14/22 12:00 45 10/14/22 11:16 91 H 17 91 45 10/14/22 09:00 99.1 F 90 20 97 10/14/22 09:00 95/55 L 10/14/22 08:00 99.5 F 86 26 H 96 10/14/22 08:00 91/58 L 10/14/22 07:00 99.5 F 72 19 98 10/14/22 07:00 97/55 L Mechanical Vent 45 10/14/22 08:00 45 10/14/22 08:00 72 10/14/22 07:51 Mechanical Vent 45 10/14/22 07:49 72 10/14/22 07:48 84 19 94 40 Laboratory Results Reviewed CBC reviewed chemistry PG Care Time/CCT Total # of Minutes Spent Total Time Spent with Patient: Total time spent is greater than 50% in coordination of care (as documented) at patient's floor/unit and/or counseling patient: Coding Level of Care Code 34869 SUB INP/OBS CARE 2/35MIN Diagnoses Acute respiratory failure with hypoxia J96.01 Anemia D64.9 Anemia type: unspecified type Quadriplegic cerebral palsy G80.8 Seizure disorder G40.909 Allergic rhinitis J30.9 (2) Anemia Anemia type: unspecified type Qualified Code(s): D64.9 - Anemia, unspecified
[2022-10-14] MEDS: traZODone HCL 50 MG TAB PEG SCH (20:13)
[2022-10-15] MEDS: dexMEDEtomidine 200 MCG/50 ML BAG IV SCH (01:46)
[2022-10-15] MEDS: MoRPHine SULFATE 2 MG/ML CARP IV PRN (02:04)
[2022-10-15] MEDS: ACETAMINOPHEN 1,000 MG/100 ML VIAL IV PRN ×2 (03:37→14:07)
[2022-10-15 05:01] LABS: Basophils # (auto) 0.01 K/uL (0-0.2); Basophils % (auto) 0.2 %; Eosinophils # (auto) 0.05 K/uL (0-0.50); Eosinophils % (auto) 0.8 %; Hematocrit (blood only) 26.2 % (37.0-47.0); Hemoglobin 8.6 g/dl (12.0-16.0); Immature Granulocytes # (auto) 0.06 K/uL (0.01-0.20); Immature Granulocytes % (auto) 0.9 %; Lymphocytes # (auto) 0.76 K/uL (1.2-3.4); Lymphocytes % (auto) 11.7 %; Mean Corpuscular Hgb Conc 32.8 g/dL (32.0-36.0); Mean Corpuscular Volume 97.4 fL (80.0-100.0); Mean Platelet Volume 9.4 fL (9.4-12.4); Monocytes % (auto) 10.8 %; Neutrophils # (auto) 4.89 K/uL (1.40-6.50); Neutrophils % (auto) 75.6 %; Platelet Count 214 K/uL (130-400); RDW Coefficient of Variation 13.9 % (11.5-14.5); RDW Standard Deviation 49.2 fL (36.4-46.3); Red Blood Count 2.69 M/uL (4.20-5.40); White Blood Count 6.47 K/ul (4.8-10.8)
[2022-10-15 05:14] LABS: Anion Gap 8 (3-11); BUN Creatinine Ratio 28.2 (10-20); Blood Urea Nitrogen 11 mg/dl (6-23); Calcium 8.8 mg/dl (8.6-10.3); Carbon Dioxide 25 mmol/L (21-32); Chloride 101 mmol/L (98-107); Creatinine Clr Calc Pharmacy 185.7 ml/min; Est GFR (African American) > 150.0 ml/min; Glucose 86 mg/dl (70-99(Fasting)); Phosphorus 4.4 mg/dl (2.5-4.9); Potassium 4.1 mmol/L (3.5-5.1); Sodium 134 mmol/L (136-145)
[2022-10-15] MEDS: ICU ELECTROLYTE REPLACEMENT PROTOCOL SCH ×2 (05:21→15:39)
--- NOTE | 2022-10-15 07:02 | XRay Report ---
XR chest 1V portable HISTORY: 27 years-old Female f/u chronic respiratory failure COMPARISON: 10/11/2022 TECHNIQUE: AP view of the chest FINDINGS: Cardiac silhouette is enlarged. Tracheostomy cannula overlies the midline. A right-sided PICC is unch anged. Telemetry leads overlie the chest. No pneumothorax. Mixed interstitial and alveolar opacities with layering pleural effusions. Bones appear grossly intact. Gastrostomy tube. The patient is rotate d toward the left. IMPRESSION: 1. Stable multifocal mixed interstitial and alveolar opacities with layering pleural effusions. 2. Unchanged positioning of the right-sided PICC and tracheostomy cannula. ACT 112: Negative or not required by law. The above report was generated using voice recognition software. It may contain grammatical, syntax o r spelling errors. Electronically signed by: Ervin Townsend M.D. 10/15/2022 7:00 AM
[2022-10-15] MEDS: PATIENT'S OWN ENTERAL FEEDING PEG SCH ×3 (07:26→21:14)
[2022-10-15] MEDS: TUBE FEEDING WATER FLUSH PO SCH ×4 (07:26→21:14)
[2022-10-15] MEDS: ACETYLCYSTEINE 20% INHAL SOLN 4ML ***DISPENSED BY RESP. INH SCH ×2 (07:28→19:19)
[2022-10-15] MEDS: BUDESONIDE 0.5 MG/2 ML VIAL (PULMICORT) INH SCH ×2 (07:28→19:18)
[2022-10-15] MEDS: ALBUTEROL 0.083% NEBU SOLN 3 ML VIAL NEB SCH ×4 (07:29→19:18)
[2022-10-15] MEDS: PANTOprazole 40 MG in SYRINGE 0 ML IV SCH ×2 (08:00→21:16)
[2022-10-15] MEDS: BACLOFEN 20 MG TAB PEG SCH ×3 (08:00→21:15)
[2022-10-15] MEDS: HEPARIN SOD 5,000 UNIT/0.5 ML VIAL SQ SCH ×2 (08:00→21:16)
[2022-10-15] MEDS: DOXYCYCLINE HYCLATE 100 MG CAP PO SCH ×2 (08:00→21:16)
[2022-10-15] MEDS: VALPROIC ACID 50 MG/ML UDP PEG SCH ×3 (08:01→21:17)
[2022-10-15] MEDS: CETIRIZINE HCL 10 MG TABLET PO SCH (08:01)
[2022-10-15] MEDS: ZONISAMIDE 100 MG PO SCH ×2 (08:02→21:14)
[2022-10-15] MEDS: POLYETHYLENE (MIRALAX) 17 GM PACK PEG SCH (08:02)
[2022-10-15] MEDS ORDERED: fentaNYL citrate PF 100 MCG/2 ML VIAL ONE (08:28)
[2022-10-15] MEDS ORDERED: fentaNYL citrate PF 100 MCG/2 ML VIAL IV STA (08:32)
--- NOTE | 2022-10-15 08:37 | Critical Care Progress Note ---
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: (8) Mucus plugging of bronchi: (9) Quadriplegic cerebral palsy: (10) Seizure disorder: Plan Reason Critically Ill: Acute on chronic hypoxic respiratory failure PLAN: Neuro: Cerebral palsy -Continue current antiepileptics: Depakote level acceptable Resp: Acute hypoxic respiratory failure -Status post bronchoscopy 10/08: Pseudomonas and Corynebacterium -Requiring supplemental support from invasive mechanical ventilator Bilateral pleural effusions -Small to moderate -BNP 440 on 10/14/2022 -Continue pulmonary toilet CV: Tachycardia: Chronic --Pericardial effusion -Negative troponins and EKG unremarkable previous echo indicated this effusion was smaller than years prior Fluids/Renal: Urine unremarkable, wears diapers chronically Hyponatremia: Improving -Appears to occur during episodes of physiologic stress/infection ID: Abx: Cefepime 10/08 - 10/10 Pip-tazo 10/08, 10/10 - 10/12 Doxycycline 10/11 - present: planned 14 days ceftolozane-tazobactam 10/12-10/13 Ceftazidime 10/13 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 --> resistant to levofloxacin, tobramycin as well as gentamicin Sepsis Febrile illnes -Ears and oropharynx had been examined, no evidence of otitis media, phary ngitis clinically -BioFire negative - Small Pericardial effusion: No real clinical indication for purulent pericarditis -MANDO negative - Brother recently diagnosed with multiple sclerosis -Follow-up mycoplasma IgG, IgM, urinary legionella negative -Empiric doxycycline x 10 days for empiric atypical pneumonia coverage -Leukocytosis: Improving -Repeat blood cultures and fungal culture obtained 10/11: No growth to date -Cholelithiasis --> given normal alk phos, possibility of cholecystitis is low --> HIDA scan negative for signs of cholecystitis 10/13/2022 Liver ultrasound 10/11/2022: Distended gallbladder with layering sludge GI/Nutrition: N.p.o. Heme: Chronic quadriplegic cerebral palsy Endocrine: ICU hyperglycemia protocol TSH and T4 within normal limits --Prophylaxis VTE: Heparin GI: Pantoprazole --No escalation of care Lines: PICC line 10/11/2022 Diet:Tube feeds Plan: In/out: -1.1 L, urine output 2719, +3.2 L since coming to the hospital X-ray from today still shows bilateral opacities but mild improvement compared to previous chest x-ray Acute depression Fentanyl as needed for restlessness We will try to take the Precedex off Continue with tube feeds I have personally spent 36 minutes of critical care time in the direct management of this patient. This is a life/limb threatening event. This includes time spent evaluating patient, direct bedside care, chart review, placing orders, interpretation of diagnostic studies, discussion with consultants, patient, and family members, as well as other required patient management activities. This time is exclusive of all separately billable procedures, and teaching time and separate from and in addition to any other critical care service time. Please note the above document was generated using voice recognition software. It may contain grammatical, syntax or spelling errors. Admission and Anticipated Discharge Date Admission Date: October 08, 2022 Subjective Patient seen and examined at bedside. She was grimacing a lot. Seems to be in discomfort She is on Precedex 1.4 at the time of examination. Saturation was 88-89% on 45% FiO2. I increase the PEEP to 7 7 spiking low-grade fever Review of Systems Review of Systems: Unobtainable due to mental health condition and Unobtainable due to cognitive status Physical Exam Physical Exam: Constitutional: No acute distress HEENT: EOMI, PERRLA Respiratory system: Decreased entry bilaterally, no wheeze, no rhonchi, positive crackles bilaterally CVS: S1-S2 positive, no murmurs or gallops Abdomen: Soft, nontender, nondistended, positive bowel sounds x4, positive J Tube Extremities: +2 pulses bilaterally radialis/ dorsalis pedis, no cyanosis, no edema Neuro: Moving bilateral upper extremities and lower extremities simultaneously Psych: Unable to assess G/U: Positive Cota Skin: no rashes, warm and dry Lymphatic: no cervical or axillary lymphadenopathy Results & Data Results & Data Vital Signs (Past 12 Hours) Vital Signs Temp Pulse Resp BP Pulse Ox FiO2 10/15/22 07:34 101 H 35 H 92 45 10/15/22 07:09 86 10/15/22 06:00 37.7 C H 74 17 92/56 L 100 08/23/23 05:00 38.0 C H 80 21 95/52 L 100 10/15/22 04:00 38.3 C H 87 21 94/55 L 98 10/15/22 03:00 38.4 C H 103 H 22 103/58 L 95 10/15/22 04:00 60 10/15/22 02:30 38.2 C H 131 H 40 H 90 10/15/22 02:19 159/94 H 10/15/22 02:19 37.9 C H 135 H 38 H 81 L 10/15/22 02:00 37.6 C H 100 H 18 68 L 10/15/22 01:30 37.5 C 74 23 92 10/15/22 01:00 37.4 C 75 22 92 10/15/22 00:30 37.4 C 77 23 94 10/15/22 02:49 121 H 26 H 96 60 10/15/22 00:00 37.4 C 76 17 93/62 L 92 10/14/22 23:30 37.2 C 74 25 H 94 10/14/22 23:00 37.3 C 78 18 93 10/14/22 22:30 37.4 C 79 19 92 10/14/22 22:16 37.4 C 80 23 94/59 L 94 10/14/22 22:14 37.4 C 85 19 92/57 L 94 10/14/22 22:12 37.4 C 81 21 89/52 L 94 10/14/22 22:00 37.5 C 80 17 88/50 L 95 10/15/22 00:00 77 10/15/22 00:00 50 10/14/22 22:40 24 50 10/14/22 21:30 37.6 C H 79 15 100 10/14/22 21:00 37.7 C H 87 21 87 L Laboratory Results 10/15/22 04:29 10/15/22 04:29 Coding Level of Care Code 02373 CRITICAL CARE 1ST 30-74M Diagnoses Sepsis A41.9 Sepsis acute organ dysfunction status: unspecified Sepsis type: sepsis due to unspecified organism Acute respiratory failure with hypoxia J96.01 Sepsis due to pneumonia J18.9; A41.9 Bronchiectasis J47.9 Bilateral pneumonia J18.9 Lung location: lower lobe of lung Pneumonia type: due to unspecified organism Muscle spasticity M62.838 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
[2022-10-15] MEDS ORDERED: ALBUMIN 25% 12.5 GM/50 ML VIAL IV SCH (09:45)
[2022-10-15] MEDS ORDERED: fentaNYL citrate 100 MCG/2 ML CARP IV PRN ×2 (10:00→12:10)
[2022-10-15] MEDS ORDERED: FUROSEMIDE 40 MG/4 ML VIAL IV ONE ×3 (11:30→16:30)
[2022-10-15] MEDS ORDERED: PATIENT'S OWN ENTERAL FEEDING PEG SCH (11:30)
[2022-10-15] MEDS: fentaNYL citrate PF 100 MCG/2 ML VIAL IV PRN (12:37)
[2022-10-15] MEDS: ALBUMIN 25% 12.5 GM/50 ML VIAL IV SCH ×2 (14:32→15:37)
[2022-10-15 15:17] LABS: Hematocrit (blood only) 26.9 % (37.0-47.0); Hemoglobin 8.9 g/dl (12.0-16.0)
--- NOTE | 2022-10-15 15:17 | Infectious Disease Progress Nt ---
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 GS--rare GPCs -Fungal smear neg, cx pending -AFB smear, cx: pending 10/08 BCx x2:sterile 09/26 Sputum cx: PsA #1 (S cefepime, ceftaz, cipro, valerie, pip/tazo. I levo. R gent.), PsA #2 (S ceftaz, cipro, valerie, pip/tazo. I cefepime. R levo, gent) 08/04 Sputum cx: PsA (S ceftaz, cipro, valerie, pip/tazo. I cefepime, aztreonam. R levo, gent.) 06/23 Sputum cx: PsA (S cefepime, ceftaz, cipro, levo, valerie, pip/tazo. R gent, tobra) 11/25/21 BAL LLL: PsA (S ceftaz, cipro, valerie, pip/tazo. I cefepime. R levo, gent) 11/23/21 Sputum cx: PsA (S ceftaz, cipro, valerie, tobra, pip/tazo. I cefepime, gent. R levo) 08/27/21 Sputum cx: PsA, Achromobacter (S ceftaz, levo, TMP/SMX. I cipro. R cefepime, gent, valerie, pip/tazo) Abx: tobra neb 10/08-10/13 Cefepime 10/08 - 10/10 Pip-tazo 10/08, 10/10 - 10/12 Ceft/tazo 10/12-10/13 ceftazadime 10/13-ongoing Problems: #Acute hypoxic respiratory failure #Fever #Chronic tracheostomy #h/o Pseudomonas colonization #Seizure disorder on valproic acid # Prolonged QTC 27 yo F with history of cerebral palsy, chronic tracheostomy and vented at night, chronic mucous plugging, Pseudomonas and Achromobacter colonization, seizure disorder, recent admission for tracheitis and discharged 09/28 on ciprofloxacin, who presented on 10/08 with hypoxia, admitted with pneumonia. At her last admission from 09/26-09/28, a CT chest showed no PE, moderate bilateral lower lobe airspace opacities, multifocal bilateral upper lobe airspace opacities. Patient was started on meropenem. Her valproic acid level decreased, likely in the setting of meropenem. Sputum culture grew 2 types of Pseudomonas, both susceptible to ciprofloxacin. She was discharged on high-dose ciprofloxacin 750 mg every 8 hours x12 additional days. Per notes, pt was doing well until about 36 hours prior to presentation, when she was appearing uncomfortable, did not tolerate the ventilator overnight, and had hypoxia overnight. She had a trach change at home without much change in quantity or quality of mucus. In the ED, patient was initially afebrile, HR 130, trach collar 6 L. However, later she became febrile, was placed on ventilator. Labs showed WBC 25, procalcitonin <0.05. RVP negative. Blood cultures NGTD. CXR showed bibasilar densities. A bronchoscopy was performed, showing moderate thick secretions in the right upper and left lower lobes. Patient was started on cefepime. A CT chest on 10/09 showed worsening multifocal consolidative and groundglass nodules compatible with pneumonia and distended gallbladder with wall thickening and mild pericholecystic fluid. Liver Us showed distended gallbladder with layering sludge, borderline gallbladder wall thickening and pericholecystic edema without shadowing cholelithiasis. HIDA scan was negative. Bronch wash cx 10/08 with normal dawit. Fungal cx pending. Sputum /tract cx with rare PSA ( S to ceftaz, cetaz/corrine, Valerie, pip/tazo) Avoided meropenem because of concern it would lower her valproic acid level in the setting of seizure disorder. The pip-tazo VINICIUS is <=16 (high but susc eptible--although it is notable that the susceptibility testing panel at [facility] only tests for pip-tazo VINICIUS down to 16, nothing lower. Therefore, one would only be able to tell susceptible vs intermediate, but not how susceptible. On Zosyn she remained febrile and was switched to ceftolozane-tazobactam 3 g IV q8h extended infusion on 10/12. Doxy added. QTc prolonged. WBC has down trended to 6.47 Remains febrile T m 38.3. Remains mechanically ventilated, FiO2 went from 80%.--> 60 Changed from Cef/tazo to Ceftazadime 2 g Iv q 8 hour 10/13 since ceft/tazo sensi unknown for the rare PSA on sputum/trach cx. Recommendations: Follow-up mycoplasma IgG, IgM, urinary legionella Continue doxycycline per critical care- Ceftazidime 2 g Iv q 8 hour , anticipate 14 days of therapy from 10/12 Will continue to follow. Admission and Anticipated Discharge Date Admission Date: October 08, 2022 Subjective This patient recommendation is based on a telemedicine consult request which was completed asynchronously through chart review and information provided by the primary physician. The patient was not seen or examined today. The evaluation is consultative in nature and all patient care and treatment decisions can either be accepted or rejected by the patient's primary hospital-based treating physician using their own independent medical judgment for their patient. Time Spent Reviewing Chart: 11 - 20 minutes Febrile. TM 38.9 Remains on ventilator , fio2 60% WBC 6.47 Results & Data Vital Signs (Past 12 Hours) Vital Signs Temp Pulse Resp BP Pulse Ox O2 Del Method FiO2 10/15/22 12:00 45 10/15/22 11:26 75 17 96 45 10/15/22 11:00 37.4 C 74 18 97 10/15/22 11:00 85/53 L 10/15/22 10:06 37.4 C 77 20 94 10/15/22 10:06 85/50 L 10/15/22 10:00 37.4 C 78 20 95 10/15/22 09:00 37.4 C 102 H 26 H 96 10/15/22 09:00 105/72 10/15/22 08:00 37.5 C 101 H 34 H 91 10/15/22 08:00 99/57 L 10/15/22 07:00 37.6 C H 78 19 10/15/22 08:00 Mechanical Vent 45 10/15/22 08:00 45 10/15/22 08:00 101 H 10/15/22 07:34 101 H 35 H 92 45 10/15/22 07:09 86 10/15/22 06:00 37.7 C H 74 17 92/56 L 100 10/15/22 05:00 38.0 C H 80 21 95/52 L 100 10/15/22 04:00 38.3 C H 87 21 94/55 L 98 10/15/22 04:00 60 Laboratory Results Laboratory Results - last 48 hr 10/13/22 10/14/22 10/14/22 17:53 04:11 04:11 WBC 8.14 RBC 3.02 L Hgb 9.6 L Hct 29.3 L MCV 97.0 MCH 31.8 MCHC 32.8 RDW Std Deviation 50.5 H RDW Coeff of Flaquito 14.2 Plt Count 238 MPV 9.5 Immature Gran % (Auto) 0.7 Neut % (Auto) 74.3 Lymph % (Auto) 13.4 Anderson % (Auto) 10.3 Eos % (Auto) 0.9 Baso % (Auto) 0.4 Neut # (Auto) 6.05 Lymph # (Auto) 1.09 L Anderson # (Auto) 0.84 H Eos # (Auto) 0.07 Baso # (Auto) 0.03 Immature Gran # (Auto) 0.06 Sodium 137 Potassium 3.8 Chloride 104 Carbon Dioxide 24 Anion Gap 9 BUN 14 Creatinine 0.43 L Est Cr Clr Drug Dosing 170.6 Est GFR ( Amer) > 150.0 Est GFR (Non-Af Amer) 140.4 BUN/Creatinine Ratio 32.6 H Glucose 71 POC Glucose 81 Calcium 9.2 Phosphorus 4.2 D Magnesium 2.1 B-Natriuretic Peptide Valproic Acid 10/14/22 10/14/22 10/15/22 04:11 18:21 04:29 WBC 6.47 RBC 2.69 L Hgb 8.6 L Hct 26.2 L MCV 97.4 MCH 32.0 MCHC 32.8 RDW Std Deviation 49.2 H RDW Coeff of [place]quito 13.9 Plt Count 214 MPV 9.4 Immature Gran % (Auto) 0.9 Neut % (Auto) 75.6 Lymph % (Auto) 11.7 Anderson % (Auto) 10.8 Eos % (Auto) 0.8 Baso % (Auto) 0.2 Neut # (Auto) 4.89 Lymph # (Auto) 0.76 L Anderson # (Auto) 0.70 H Eos # (Auto) 0.05 Baso # (Auto) 0.01 Immature Gran # (Auto) 0.06 Sodium Potassium Chloride Carbon Dioxide Anion Gap BUN Creatinine Est Cr Clr Drug Dosing Est GFR ( Amer) Est GFR (Non-Af Amer) BUN/Creatinine Ratio Glucose POC Glucose 106 H Calcium Phosphorus Magnesium B-Natriuretic Peptide 441 H Valproic Acid 10/15/22 10/15/22 10/15/22 04:29 04:29 04:34 WBC RBC Hgb Hct MCV MCH MCHC RDW Std Deviation RDW Coeff of Flaquito Plt Count MPV Immature Gran % (Auto) Neut % (Auto) Lymph % (Auto) Anderson % (Auto) Eos % (Auto) Baso % (Auto) Neut # (Auto) Lymph # (Auto) Anderson # (Auto) Eos # (Auto) Baso # (Auto) Immature Gran # (Auto) Sodium 134 L Potassium 4.1 Chloride 101 Carbon Dioxide 25 Anion Gap 8 BUN 11 Creatinine 0.39 L Est Cr Clr Drug Dosing 185.7 Est GFR ( Amer) > 150.0 Est GFR (Non-Af Amer) 145.0 BUN/Creatinine Ratio 28.2 H Glucose 86 POC Glucose 95 Calcium 8.8 Phosphorus 4.4 Magnesium 2.0 B-Natriuretic Peptide Valproic Acid 61 10/15/22 11:54 WBC RBC Hgb Hct MCV MCH MCHC RDW Std Deviation RDW Coeff of Flaquito Plt Count MPV Immature Gran % (Auto) Neut % (Auto) Lymph % (Auto) Anderson % (Auto) Eos % (Auto) Baso % (Auto) Neut # (Auto) Lymph # (Auto) Anderson # (Auto) Eos # (Auto) Baso # (Auto) Immature Gran # (Auto) Sodium Potassium Chloride Carbon Dioxide Anion Gap BUN Creatinine Est Cr Clr Drug Dosing Est GFR ( Amer) Est GFR (Non-Af Amer) BUN/Creatinine Ratio Glucose POC Glucose 92 Calcium Phosphorus Magnesium B-Natriuretic Peptide Valproic Acid Diagnostic Findings Microbiology 10/10/22 11:25 Sputum,Trach Gram Stain - Final 10/10/22 11:25 Sputum,Trach Sputum Culture - Final Pseudomonas aeruginosa Corynebacterium species 10/08/22 10:24 Blood Aerobic Blood Culture - Final No growth in Aerobic bottle after 5 days. 10/08/22 10:24 Blood Anaerobic Blood Culture - Final No growth in Anaerobic bottle after 5 days. 10/08/22 10:24 Blood Aerobic Blood Culture - Final No growth in Aerobic bottle after 5 days. 10/08/22 10:24 Blood Anaerobic Blood Culture - Final 10/11/22 07:21 Blood Aerobic Blood Culture - Preliminary No growth in Aerobic bottle after 48 hours. 10/11/22 07:21 Blood Anaerobic Blood Culture - Preliminary No growth in Anaerobic bottle after 48 hours. 10/11/22 07:39 Blood Aerobic Blood Culture - Preliminary No growth in Aerobic bottle after 48 hours. 10/11/22 07:39 Blood Anaerobic Blood Culture - Final 10/08/22 14:40 Bronch Wash,Left Lower Lobe Acid Fast Bacilli Smear - Final 10/08/22 14:40 Bronch Wash,Left Lower Lobe Acid Fast Bacilli Culture - Preliminary No Acid-Fast Bacilli Isolated - Report 1, Additional Report to Follow. 10/11/22 07:21 Blood Fungal Smear - Final 10/08/22 14:40 Bronch Wash,Left Lower Lobe Fungal Smear - Final 10/08/22 14:40 Bronch Wash,Left Lower Lobe Fungal Culture - Preliminary No yeast or fungus isolated - Report 1, Additional Report to Follow. 10/08/22 14:40 Bronch Wash,Left Lower Lobe Gram Stain - Final 10/08/22 14:40 Bronch Wash,Left Lower Lobe Bronchial Culture - Final Light normal dawit. Hepatobiliary Scan Nuclear Medicine 10/13/22 11:30 NM hepatobiliary EF CLINICAL HISTORY: r/o acute cholecystitis TECHNIQUE: Following the intravenous injection of 5 mCi of Tc-99m labeled Technetium 99m mebrofenin, multiple images of the upper abdomen were obtained in the anterior projection with uptake measurements of the gallbladder obtained. Once the gallbladder and small bowel were visualized, the patient was intravenously infused over 30 minutes with 0.02 mcg/kg of Sincalide (CCK), and imaging and uptakes were again obtained. Comparison: Comparison is made to right upper quadrant ultrasound 10/11/2022 FINDINGS: Sequential images demonstrate normal uptake in the liver, common bile duct, gallbladder, and small bowel. No defects in uptake are identified. Subsequent imaging after the administration of sincalide demonstrates prompt elimination of the radiotracer from the gallbladder. The calculated gallbladder ejection fraction based on uptake measurements is 39%. However, further delayed images up to 44 minutes demonstrated lesser degree of excretion. IMPRESSION: Normal uptake of tracer, no acute cholecystitis. Excretion of contrast is stable to mildly delayed, equivocal for chronic cholecystitis. Reference: Normal gallbladder ejection fraction is greater than 33%. ACT 112: Negative or not required by law. Electronically signed by: Raudel Rich M.D. 10/13/2022 5:58 PM Chest X-Ray 10/15/22 07:00 XR chest 1V portable HISTORY: 27 years-old Female f/u chronic respiratory failure COMPARISON: 10/11/2022 TECHNIQUE: AP view of the chest FINDINGS: Cardiac silhouette is enlarged. Tracheostomy cannula overlies the midline. A right-sided PICC is unchanged. Telemetry leads overlie the chest. No pneumothorax. Mixed interstitial and alveolar opacities with layering pleural effusions. Bones appear grossly intact. Gastrostomy tube. The patient is rotated toward the left. IMPRESSION: 1. Stable multifocal mixed interstitial and alveolar opacities with layering pleural effusions. 2. Unchanged positioning of the right-sided PICC and tracheostomy cannula. ACT 112: Negative or not required by law. The above report was generated using voice recognition software. It may contain grammatical, syntax or spelling errors. Electronically signed by: Ervin Townsend M.D. 10/15/2022 7:00 AM (2) Bilateral pneumonia Lung location: lower lobe of lung Pneumonia type: due to unspecified organism Qualified Code(s): J18.9 - Pneumonia, unspecified organism (3) Sepsis Sepsis acute organ dysfunction status: unspecified Sepsis type: sepsis due to unspecified organism Qualified Code(s): A41.9 - Sepsis, unspecified organism
--- NOTE | 2022-10-15 17:57 | Hospitalist Progress Note ---
Date of Service October 15, 2022 Assessment & Plan (1) Acute respiratory failure with hypoxia: Plan: Patient with chronic ventilator use at night trach collar during the day now requiring ventilator throughout the day Concern for sepsis on presentation with leukocytosis tachycardia and hypotension, multifocal pneumonia concern for gram negative pneumonia Blood cultures currently negative to date initial concerns were focused pulmonary as she has had issues with resistant Pseudomonas in the past subsequently we pursued a bronchoscopy with some mucus removed and cultures obtained. Initially was placed on cefepime then Zosyn then Ceftolazone-tazobactam(started 10/12/22) and now ceftazidime per infectious disease recommendation also continues on Doxycycline and inhaled tobramycin has been discontinued CT scan of head neck chest abdomen pelvis may suggest acalculus cholecystitis however there is also comments on progression of multifocal pneumonia doxycycline was added for atypical coverage. General surgery did see and ordered HIDA scan for 10/13 showing normal gallbladder ejection fraction We will continue her typical pulmonary support with albuterol nebulizer scheduled and as needed Mucomyst scheduled Pulmicort plus nebulized tobramycin. Patient does use a chest vest and CoughAssist at home Diuresis to assist in ventilation is being accomplished with Lasix and albumin Discussion with mother, continue supportive care at this time but no escalation to significant surgery or procedures (2) Anemia: Plan: Pt has had HGb trend down to 7.6, stop ibuprofen, start bolus protonix, transfuse 1 u prbc ? if this is part of her pain issue, maybe from discard when drawing blood from picc line, this is 10cc per draw discarded trend hgb after transfusion (3) Quadriplegic cerebral palsy: Plan: Pt typically with trache and peg tube support bowel regimen with daily miralax Restart tube feeds and free water flushes with improvement in hyponatremia patient's been on ventilator with precedex infusion (4) Seizure disorder: Plan: valproic acid level is slightly elevated, last admission due to meropenem did have elevation of dose for a time, level is 110( high normal is 100)will reduce dose to 500 from 550 level did improve repeat therapeutic although lower (5) Allergic rhinitis: Plan: continue claritan Plan patient's hyponatremia is improved continue free water flushes of tube feeds as previous patient remains hypotensive which limits diuresis not quite tolerating full tube feeds antibiotic eventual choices in question and eventual disposition now may be considering LTAC pt is a conditional code outlook remains guarded Admission and Anticipated Discharge Date Admission Date: October 08, 2022 Subjective patient is calm she is off Precedex she does not appear to be as alert as typical difficult to assess whether she has focal discomfort remains ventilated which is not her typical Physical Exam Physical Exam: patient appears more comfortable now off Precedex she is nonverbal as her prehospital state. Seems to have resolution of discomfort about examining her abdomen. Lung sounds are coarse she is ventilated through trach Results & Data Results & Data Vital Signs (Past 12 Hours) Vital Signs Temp Pulse Resp BP Pulse Ox O2 Del Method FiO2 10/15/22 15:45 107 H 30 H 92 55 10/15/22 12:00 45 10/15/22 11:26 75 17 96 45 10/15/22 11:00 99.3 F 74 18 97 10/15/22 11:00 85/53 L 10/15/22 10:06 99.3 F 77 20 94 10/15/22 10:06 85/50 L 10/15/22 10:00 99.3 F 78 20 95 10/15/22 09:00 99.3 F 102 H 26 H 96 10/15/22 09:00 105/72 10/15/22 08:00 99.5 F 101 H 34 H 91 10/15/22 08:00 99/57 L 10/15/22 07:00 99.7 F H 78 19 10/15/22 08:00 Mechanical Vent 45 10/15/22 08:00 45 10/15/22 08:00 101 H 10/15/22 07:34 101 H 35 H 92 45 10/15/22 07:09 86 10/15/22 06:00 99.9 F H 74 17 92/56 L 100 Laboratory Results reviewed CBC reviewed chemistry PG Care Time/CCT Total # of Minutes Spent Total Time Spent with Patient: Total time spent is greater than 50% in coordination of care (as documented) at patient's floor/unit and/or counseling patient: Coding Level of Care Code 44596 SUB INP/OBS CARE 2/35MIN Diagnoses Acute respiratory failure with hypoxia J96.01 Anemia D64.9 Anemia type: unspecified type Quadriplegic cerebral palsy G80.8 Seizure disorder G40.909 Allergic rhinitis J30.9 (2) Anemia Anemia type: unspecified type Qualified Code(s): D64.9 - Anemia, unspecified
[2022-10-15 20:22] LABS: Source BW LLL
[2022-10-15] MEDS: traZODone HCL 50 MG TAB PEG SCH (21:15)
[2022-10-16] MEDS: fentaNYL citrate PF 100 MCG/2 ML VIAL IV PRN ×2 (04:34→15:06)
[2022-10-16 05:20] LABS: Basophils # (auto) 0.01 K/uL (0.00-0.20); Basophils % (auto) 0.1 %; Eosinophils # (auto) 0.11 K/uL (0.00-0.50); Eosinophils % (auto) 1.6 %; Hematocrit (blood only) 29.4 % (37.0-47.0); Hemoglobin 9.9 g/dl (12.0-16.0); Immature Granulocytes # (auto) 0.06 K/uL (0.01-0.20); Immature Granulocytes % (auto) 0.9 %; Lymphocytes # (auto) 1.02 K/uL (1.20-3.40); Lymphocytes % (auto) 14.7 %; Mean Corpuscular Hemoglobin 32.2 pg (25.0-34.0); Mean Corpuscular Hgb Conc 33.7 g/dL (32.0-36.0); Mean Corpuscular Volume 95.8 fL (80.0-100.0); Mean Platelet Volume 8.9 fL (9.4-12.4); Monocytes # (auto) 0.86 K/uL (0.11-0.59); Monocytes % (auto) 12.4 %; Neutrophils % (auto) 70.3 %; Platelet Count 278 K/uL (130-400); RDW Coefficient of Variation 13.9 % (11.5-14.5); Red Blood Count 3.07 M/uL (4.20-5.40); White Blood Count 6.96 K/ul (4.8-10.8)
[2022-10-16 05:39] LABS: Anion Gap 9 (3-11); BUN Creatinine Ratio 26.3 (10-20); Blood Urea Nitrogen 10 mg/dl (6-23); Calcium 9.3 mg/dl (8.6-10.3); Carbon Dioxide 26 mmol/L (21-32); Chloride 102 mmol/L (98-107); Creatinine Clr Calc Pharmacy 196.9 ml/min; Est GFR (African American) > 150.0 ml/min; Est GFR (Non-African American) 146.2 ml/min; Glucose 95 mg/dl (70-99(Fasting)); Magnesium 2.1 mg/dl (1.7-2.4); Phosphorus 3.4 mg/dl (2.5-4.9); Potassium 3.4 mmol/L (3.5-5.1); Sodium 137 mmol/L (136-145)
[2022-10-16] MEDS: POTASSIUM CHLORIDE / WTR 20 MEQ/100 ML PLCT IV SCH ×3 (06:13→09:49)
[2022-10-16] MEDS: ICU ELECTROLYTE REPLACEMENT PROTOCOL SCH ×2 (06:13→16:24)
[2022-10-16] MEDS: ACETAMINOPHEN 1,000 MG/100 ML VIAL IV PRN (06:21)
[2022-10-16] MEDS: TUBE FEEDING WATER FLUSH PO SCH ×4 (07:48→20:49)
[2022-10-16] MEDS: PATIENT'S OWN ENTERAL FEEDING PEG SCH ×4 (07:48→20:49)
[2022-10-16] MEDS: BACLOFEN 20 MG TAB PEG SCH ×3 (07:50→21:49)
[2022-10-16] MEDS: CETIRIZINE HCL 10 MG TABLET PO SCH (07:51)
[2022-10-16] MEDS: DOXYCYCLINE HYCLATE 100 MG CAP PO SCH ×2 (07:51→21:49)
[2022-10-16] MEDS: HEPARIN SOD 5,000 UNIT/0.5 ML VIAL SQ SCH ×2 (07:52→21:50)
[2022-10-16] MEDS: ZONISAMIDE 100 MG PO SCH ×2 (07:52→21:50)
[2022-10-16] MEDS: PANTOprazole 40 MG in SYRINGE 0 ML IV SCH ×2 (07:52→21:45)
[2022-10-16] MEDS: VALPROIC ACID 50 MG/ML UDP PEG SCH ×3 (07:52→21:49)
[2022-10-16] MEDS: POLYETHYLENE (MIRALAX) 17 GM PACK PEG SCH (07:54)
[2022-10-16] MEDS: ACETYLCYSTEINE 20% INHAL SOLN 4ML ***DISPENSED BY RESP. INH SCH ×2 (08:09→19:27)
[2022-10-16] MEDS: ALBUTEROL 0.083% NEBU SOLN 3 ML VIAL NEB SCH ×4 (08:10→19:28)
[2022-10-16] MEDS: BUDESONIDE 0.5 MG/2 ML VIAL (PULMICORT) INH SCH ×2 (08:10→19:28)
--- NOTE | 2022-10-16 08:12 | Critical Care Progress Note ---
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: (8) Mucus plugging of bronchi: (9) Quadriplegic cerebral palsy: (10) Seizure disorder: Plan Reason Critically Ill: Acute on chronic hypoxic respiratory failure PLAN: Sedation Fentanyl as needed Neuro: Cerebral palsy -Continue current antiepileptics: Depakote level acceptable Resp: Acute hypoxic respiratory failure -Status post bronchoscopy 10/08: Pseudomonas and Corynebacterium -Requiring supplemental support from invasive mechanical ventilator Bilateral pleural effusions -Small to moderate -BNP 440 on 10/14/2022 -Continue pulmonary toilet CV: Tachycardia: Chronic --Pericardial effusion -Negative troponins and EKG unremarkable previous echo indicated this effusion was smaller than years prior Fluids/Renal: Urine unremarkable, wears diapers chronically Hyponatremia: Improving -Appears to occur during episodes of physiologic stress/infection ID: Abx: Cefepime 10/08 - 10/10 Pip-tazo 10/08, 10/10 - 10/12 Doxycycline 10/11 - present: planned 14 days ceftolozane-tazobactam 10/12-10/13 Ceftazidime 10/13 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 --> resistant to levofloxacin, tobramycin as well as gentamicin Sepsis Febrile illnes -Ears and oropharynx had been examined, no evidence of otitis media, pharyngitis clinically -BioFire negative - Small Pericardial effusion: No real clinical indication for purulent pericarditis -MANDO negative - Brother recently diagnosed with multiple sclerosis -Follow-up mycoplasma IgG, IgM, urinary legionella negative -Empiric doxycycline x 10 days for empiric atypical pneumonia coverage -Leukocytosis: Improving -Repeat blood cultures and fungal culture obtained 10/11: No growth to date -Cholelithiasis --> given normal alk phos, possibility of cholecystitis is low --> HIDA scan negative for signs of cholecystitis 10/13/2022 Liver ultrasound 10/11/2022: Distended gallbladder with layering sludge GI/Nutrition: N.p.o. Heme: Chronic quadriplegic cerebral palsy Endocrine: ICU hyperglycemia protocol TSH and T4 within normal limits --Prophylaxis VTE: Heparin GI: Pantoprazole --No escalation of care Lines: PICC line 10/11/2022 Diet:Tube feeds Plan: In/out: -1.2 L, urine output 3051 Tmax 38 Potassium being replaced Precedex has been turned off. Continue with fentanyl as needed Try to wean down oxygen as much as possible. Continue with tube feeds I have personally spent 37 minutes of critical care time in the direct management of this patient. This is a life/limb threatening event. This includes time spent evaluating patient, direct bedside care, chart review, placing orders, interpretation of diagnostic studies, discussion with consultants, patient, and family members, as well as other required patient management activities. This time is exclusive of all separately billable procedures, and teaching time and separate from and in addition to any other critical care service time. Please note the above document was generated using voice recognition software. It may contain grammatical, syntax or spelling errors. Admission and Anticipated Discharge Date Admission Date: October 08, 2022 Subjective Patient seen and examined at bedside. No acute distress, no adverse events overnight She is making good amount of urine Has been off Precedex Getting fentanyl as needed Breathing over the vent. Review of Systems Review of Systems: Unobtainable due to mental health condition and Unobtainable due to cognitive status Physical Exam Physical Exam: Constitutional: No acute distress HEENT: EOMI, PERRLA Respiratory system: Decreased entry bilaterally, no wheeze, no rhonchi, positive crackles bilaterally CVS: S1-S2 positive, no murmurs or gallops Abdomen: Soft, nontender, nondistended, positive bowel sounds x4, positive J Tube Extremities: +2 pulses bilaterally radialis/ dorsalis pedis, no cyanosis, no edema Neuro: Moving bilateral upper extremities and lower extremities simultaneously Psych: Unable to assess G/U: Positive Cota Skin: no rashes, warm and dry Lymphatic: no cervical or axillary lymphadenopathy Results & Data Results & Data Vital Signs (Past 12 Hours) Vital Signs Temp Pulse Resp BP Pulse Ox O2 Del Method FiO2 10/16/22 06:00 38.0 C H 108 H 22 106/64 88 L 10/16/22 05:00 38.0 C H 104 H 26 H 101/63 91 10/16/22 04:00 37.9 C H 96 H 22 101/67 95 10/16/22 04:00 40 10/16/22 03:00 37.8 C H 96 H 22 100/61 96 10/16/22 02:00 37.4 C 95 H 23 106/67 94 10/16/22 01:42 37.4 C 95 H 23 97/73 L 95 10/16/22 01:00 37.5 C 98 H 23 94 10/16/22 00:00 37.2 C 84 20 113/77 99 10/15/22 23:00 37.3 C 90 17 97/69 L 96 10/16/22 03:03 24 40 10/16/22 00:00 85 10/16/22 00:00 45 10/15/22 22:00 37.3 C 94 H 22 105/71 95 10/15/22 21:00 37.5 C 93 H 25 H 108/71 96 10/15/22 22:18 17 45 10/15/22 21:30 45 10/15/22 21:30 Mechanical Vent 10/15/22 20:49 99 H 24 93 45 Laboratory Results 10/16/22 05:00 10/16/22 05:00 Coding Level of Care Code 72622 CRITICAL CARE 1ST 30-74M Diagnoses Sepsis A41.9 Sepsis acute organ dysfunction status: unspecified Sepsis type: sepsis due to unspecified organism Acute respiratory failure with hypoxia J96.01 Sepsis due to pneumonia J18.9; A41.9 Bronchiectasis J47.9 Bilateral pneumonia J18.9 Lung location: lower lobe of lung Pneumonia type: due to unspecified organism Muscle spasticity M62.838 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
[2022-10-16] MEDS ORDERED: Nursing to Pharmacy Communication SCH (08:15)
--- NOTE | 2022-10-16 10:19 | Infectious Disease Progress Nt ---
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 GS--rare GPCs -Fungal smear neg, cx pending -AFB smear, cx: pending 10/08 BCx x2:sterile 09/26 Sputum cx: PsA #1 (S cefepime, ceftaz, cipro, valerie, pip/tazo. I levo. R gent.), PsA #2 (S ceftaz, cipro, valerie, pip/tazo. I cefepime. R levo, gent) 08/04 Sputum cx: PsA (S ceftaz, cipro, valerie, pip/tazo. I cefepime, aztreonam. R levo, gent.) 06/23 Sputum cx: PsA (S cefepime, ceftaz, cipro, levo, valerie, pip/tazo. R gent, tobra) 11/25/21 BAL LLL: PsA (S ceftaz, cipro, valerie, pip/tazo. I cefepime. R levo, gent) 11/23/21 Sputum cx: PsA (S ceftaz, cipro, valerie, tobra, pip/tazo. I cefepime, gent. R levo) 08/27/21 Sputum cx: PsA, Achromobacter (S ceftaz, levo, TMP/SMX. I cipro. R cefepime, gent, valerie, pip/tazo) Abx: tobra neb 10/08-10/13 Cefepime 10/08 - 10/10 Pip-tazo 10/08, 10/10 - 10/12 Ceft/tazo 10/12-10/13 ceftazadime 10/13-ongoing Problems: #Acute hypoxic respiratory failure #Fever #Chronic tracheostomy #h/o Pseudomonas colonization #Seizure disorder on valproic acid # Prolonged QTC 27 yo F with history of cerebral palsy, chronic tracheostomy and vented at night, chronic mucous plugging, Pseudomonas and Achromobacter colonization, seizure disorder, recent admission for tracheitis and discharged 09/28 on ciprofloxacin, who presented on 10/08 with hypoxia, admitted with pneumonia. At her last admission from 09/26-09/28, a CT chest showed no PE, moderate bilateral lower lobe airspace opacities, multifocal bilateral upper lobe airspace opacities. Patient was started on meropenem. Her valproic acid level decreased, likely in the setting of meropenem. Sputum culture grew 2 types of Pseudomonas, both susceptible to ciprofloxacin. She was discharged on high-dose ciprofloxacin 750 mg every 8 hours x12 additional days. Per notes, pt was doing well until about 36 hours prior to presentation, when she was appearing uncomfortable, did not tolerate the ventilator overnight, and had hypoxia overnight. She had a trach change at home without much change in quantity or quality of mucus. In the ED, patient was initially afebrile, HR 130, trach collar 6 L. However, later she became febrile, was placed on ventilator. Labs showed WBC 25, procalcitonin <0.05. RVP/biofire negative. Blood cultures NGTD. CXR showed bibasilar densities. A bronchoscopy was performed, showing moderate thick secretions in the right upper and left lower lobes. Patient was started on cefepime. A CT chest on 10/09 showed worsening multifocal consolidative and groundglass nodules compatible with pneumonia and distended gallbladder with wall thickening and mild pericholecystic fluid. Liver Us showed distended gallbladder with layering sludge, borderline gallbladder wall thickening and pericholecystic edema without shadowing cholelithiasis. HIDA scan was negative. Bronch wash cx 10/08 with normal dawit. Fungal cx pending. Sputum /tract cx with rare PSA ( S to ceftaz, cetaz/corrine, Valerie, pip/tazo) Avoided meropenem because of concern it would lower her valproic acid level in the setting of seizure disorder. The pip-tazo VINICIUS is <=16 (high but susceptible--although it is notable that the susceptibility testing panel at [facility] only tests for pip-tazo VINICIUS down to 16, nothing lower. Therefore, one would only be able to tell susceptible vs intermediate, but not how susceptible. On Zosyn she remained febrile and was switched to ceftolozane-tazobactam 3 g IV q8h extended infusion on 10/12. Doxy added. QTc prolonged. from Cef/tazo to Ceftazadime 2 g Iv q 8 hour 10/13 for rare PSA on sputum/trach cx. WBC has down trended to 6.96 Remains febrile T m 38. Remains mechanically ventilated, FiO2 went from 80%.--> 60-->50. MANDO scree neg.Urine legionella ag negative. Picc and trach site are clean. No edema at extremities. Awake/alert on exam but not communicative Recommendations: Follow-up mycoplasma IgG, IgM, but mycoplasma pcr is negative on Biofire Continue doxycycline per critical care- Ceftazidime 2 g Iv q 8 hour, anticipate 10-14 days of therapy from 10/12 depending on clinical response. Monitor fever curve Ordered repeat BC as she remains febrile; will follow up Alana Wakefield MD, MPH Infectious Disease [facility], [facility] Call [phone] with questions Admission and Anticipated Discharge Date Admission Date: October 08, 2022 Subjective Subsequent visit was provided via telemedicine using two-way real-time interactive telecommunication between the patient and the telemedicine provider. For the duration of the visit, the provider was performing the assessment from a different facility than the patient. This includesuse of bluetooth stethoscope forauscultationperformed by the telepresenter that the telemedicine provider can hear if described in the physical exam. [facility] Specialist contact information: Please call [facility] . (Phone Number For Physician Use Only) After establishing a telemedicine visit, patient was: Patient was verified with two unique identifiers Time Spent with Patient: Subsequent => 25 min pt seen and examined in icu. Mechanically vented via trach. Awake and alert, but not communicative Febrile with t max 38.0 Fio2 down to 50% Review of System Unable to obtain due to mental status Physical Exam Constitutional: Awake, alert, eyes open and tracks. Not communicative, NAD, Trached and mechanically vented Eyes: Anicteric sclera Neck: trached- site clean Respiratory: No increased work of breathing Gastrointestinal (Abdomen): Soft, NT, ND + peg Musculoskeletal: Contractures of all 4 extremities. Right sided Picc line in place Skin: NO open wounds noted Neurologic: Awake, alert Genitourinary: Cota in place, clear yellow urine. Results & Data Vital Signs (Past 12 Hours) Vital Signs Temp Pulse Resp BP Pulse Ox FiO2 10/16/22 09:00 99 H 28 H 91 50 10/16/22 06:00 38.0 C H 108 H 22 106/64 88 L 10/16/22 05:00 38.0 C H 104 H 26 H 101/63 91 10/16/22 04:00 37.9 C H 96 H 22 101/67 95 10/16/22 04:00 40 10/16/22 03:00 37.8 C H 96 H 22 100/61 96 10/16/22 02:00 37.4 C 95 H 23 106/67 94 10/16/22 01:42 37.4 C 95 H 23 97/73 L 95 10/16/22 01:00 37.5 C 98 H 23 94 10/16/22 00:00 37.2 C 84 20 113/77 99 10/15/22 23:00 37.3 C 90 17 97/69 L 96 10/16/22 03:03 24 40 10/16/22 00:00 85 10/16/22 00:00 45 10/15/22 22:18 17 45 Laboratory Results Laboratory Results - last 48 hr 10/08/22 10/14/22 10/15/22 14:40 18:21 04:29 WBC 6.47 RBC 2.69 L Hgb 8.6 L Hct 26.2 L MCV 97.4 MCH 32.0 MCHC 32.8 RDW Std Deviation 49.2 H RDW Coeff of [place] 13.9 Plt Count 214 MPV 9.4 Immature Gran % (Auto) 0.9 Neut % (Auto) 75.6 Lymph % (Auto) 11.7 [place] % (Auto) 10.8 Eos % (Auto) 0.8 Baso % (Auto) 0.2 Neut # (Auto) 4.89 Lymph # (Auto) 0.76 L [place] # (Auto) 0.70 H Eos # (Auto) 0.05 Baso # (Auto) 0.01 Immature Gran # (Auto) 0.06 Sodium Potassium Chloride Carbon Dioxide Anion Gap BUN Creatinine Est Cr Clr Drug Dosing Est GFR ( Amer) Est GFR (Non-Af Amer) BUN/Creatinine Ratio Glucose POC Glucose 106 H Calcium Phosphorus Magnesium Ammonia Valproic Acid Resp Virus Cult Rapid SEE NOTE Viral Specimen Source BW LLL 10/15/22 10/15/22 10/15/22 04:29 04:29 04:34 WBC RBC Hgb Hct MCV MCH MCHC RDW Std Deviation RDW Coeff of [place] Plt Count MPV Immature Gran % (Auto) Neut % (Auto) Lymph % (Auto) [place] % (Auto) Eos % (Auto) Baso % (Auto) Neut # (Auto) Lymph # (Auto) [place] # (Auto) Eos # (Auto) Baso # (Auto) Immature Gran # (Auto) Sodium 134 L Potassium 4.1 Chloride 101 Carbon Dioxide 25 Anion Gap 8 BUN 11 Creatinine 0.39 L Est Cr Clr Drug Dosing 185.7 Est GFR ( Amer) > 150.0 Est GFR (Non-Af Amer) 145.0 BUN/Creatinine Ratio 28.2 H Glucose 86 POC Glucose 95 Calcium 8.8 Phosphorus 4.4 Magnesium 2.0 Ammonia Valproic Acid 61 Resp Virus Cult Rapid Viral Specimen Source 10/15/22 10/15/22 10/15/22 11:54 14:50 17:28 WBC RBC Hgb 8.9 L Hct 26.9 L MCV MCH MCHC RDW Std Deviation RDW Coeff of [place] Plt Count MPV Immature Gran % (Auto) Neut % (Auto) Lymph % (Auto) [place] % (Auto) Eos % (Auto) Baso % (Auto) Neut # (Auto) Lymph # (Auto) [place] # (Auto) Eos # (Auto) Baso # (Auto) Immature Gran # (Auto) Sodium Potassium Chloride Carbon Dioxide Anion Gap BUN Creatinine Est Cr Clr Drug Dosing Est GFR ( Amer) Est GFR (Non-Af Amer) BUN/Creatinine Ratio Glucose POC Glucose 92 101 H Calcium Phosphorus Magnesium Ammonia Valproic Acid Resp Virus Cult Rapid Viral Specimen Source 10/16/22 10/16/22 10/16/22 05:00 05:00 05:00 WBC 6.96 RBC 3.07 L Hgb 9.9 L Hct 29.4 L MCV 95.8 MCH 32.2 MCHC 33.7 RDW Std Deviation 49.0 H RDW Coeff of [place] 13.9 Plt Count 278 MPV 8.9 L Immature Gran % (Auto) 0.9 Neut % (Auto) 70.3 Lymph % (Auto) 14.7 [place] % (Auto) 12.4 Eos % (Auto) 1.6 Baso % (Auto) 0.1 Neut # (Auto) 4.90 Lymph # (Auto) 1.02 L [place] # (Auto) 0.86 H Eos # (Auto) 0.11 Baso # (Auto) 0.01 Immature Gran # (Auto) 0.06 Sodium 137 Potassium 3.4 L Chloride 102 Carbon Dioxide 26 Anion Gap 9 BUN 10 Creatinine 0.38 L Est Cr Clr Drug Dosing 196.9 Est GFR ( Amer) > 150.0 Est GFR (Non-Af Amer) 146.2 BUN/Creatinine Ratio 26.3 H Glucose 95 POC Glucose Calcium 9.3 Phosphorus 3.4 D Magnesium 2.1 Ammonia 52.0 Valproic Acid Resp Virus Cult Rapid Viral Specimen Source Diagnostic Findings Microbiology 10/11/22 07:39 Blood Aerobic Blood Culture - Final No growth in Aerobic bottle after 5 days. 10/11/22 07:39 Blood Anaerobic Blood Culture - Final 10/11/22 07:21 Blood Aerobic Blood Culture - Final No growth in Aerobic bottle after 5 days. 10/11/22 07:21 Blood Anaerobic Blood Culture - Final No growth in Anaerobic bottle after 5 days. 10/10/22 11:25 Sputum,Trach Gram Stain - Final 10/10/22 11:25 Sputum,Trach Sputum Culture - Final Pseudomonas aeruginosa Corynebacterium species 10/08/22 10:24 Blood Aerobic Blood Culture - Final No growth in Aerobic bottle after 5 days. 10/08/22 10:24 Blood Anaerobic Blood Culture - Final No growth in Anaerobic bottle after 5 days. 10/08/22 10:24 Blood Aerobic Blood Culture - Final No growth in Aerobic bottle after 5 days. 10/08/22 10:24 Blood Anaerobic Blood Culture - Final 10/08/22 14:40 Bronch Wash,Left Lower Lobe Acid Fast Bacilli Smear - Final 10/08/22 14:40 Bronch Wash,Left Lower Lobe Acid Fast Bacilli Culture - Preliminary No Acid-Fast Bacilli Isolated - Report 1, Additional Report to Follow. 10/11/22 07:21 Blood Fungal Smear - Final 10/08/22 14:40 Bronch Wash,Left Lower Lobe Fungal Smear - Final 10/08/22 14:40 Bronch Wash,Left Lower Lobe Fungal Culture - Preliminary No yeast or fungus isolated - Report 1, Additional Report to Follow. 10/08/22 14:40 Bronch Wash,Left Lower Lobe Gram Stain - Final 10/08/22 14:40 Bronch Wash,Left Lower Lobe Bronchial Culture - Final Light normal dawit. Hepatobiliary Scan Nuclear Medicine 10/13/22 11:30 NM hepatobiliary EF CLINICAL HISTORY: r/o acute cholecystitis TECHNIQUE: Following the intravenous injection of 5 mCi of Tc-99m labeled Technetium 99m mebrofenin, multiple images of the upper abdomen were obtained in the anterior projection with uptake measurements of the gallbladder obtained. Once the gallbladder and small bowel were visualized, the patient was intravenously infused over 30 minutes with 0.02 mcg/kg of Sincalide (CCK), and imaging and uptakes were again obtained. Comparison: Comparison is made to right upper quadrant ultrasound 10/11/2022 FINDINGS: Sequential images demonstrate normal uptake in the liver, common bile duct, gallbladder, and small bowel. No defects in uptake are identified. Subsequent imaging after the administration of sincalide demonstrates prompt elimination of the radiotracer from the gallbladder. The calculated gallbladder ejection fraction based on uptake measurements is 39%. However, further delayed images up to 44 minutes demonstrated lesser degree of excretion. IMPRESSION: Normal uptake of tracer, no acute cholecystitis. Excretion of contrast is stable to mildly delayed, equivocal for chronic cholecystitis. Reference: Normal gallbladder ejection fraction is greater than 33%. ACT 112: Negative or not required by law. Electronically signed by: Raudel Rich M.D. 10/13/2022 5:58 PM Chest X-Ray 10/15/22 07:00 XR chest 1V portable HISTORY: 27 years-old Female f/u chronic respiratory failure COMPARISON: 10/11/2022 TECHNIQUE: AP view of the chest FINDINGS: Cardiac silhouette is enlarged. Tracheostomy cannula overlies the midline. A right-sided PICC is unchanged. Telemetry leads overlie the chest. No pneumothorax. Mixed interstitial and alveolar opacities with layering pleural effusions. Bones appear grossly intact. Gastrostomy tube. The patient is rotated toward the left. IMPRESSION: 1. Stable multifocal mixed interstitial and alveolar opacities with layering pleural effusions. 2. Unchanged positioning of the right-sided PICC and tracheostomy cannula. ACT 112: Negative or not required by law. The above report was generated using voice recognition software. It may contain grammatical, syntax or spelling errors. Electronically signed by: Ervin Townsend M.D. 10/15/2022 7:00 AM Medications Administered Home Medications Medication Instructions Recorded Confirmed Last Taken food supplemt, lactose-reduced 1.5 ea PO QID@07,1130,15,07/28/18 10/08/22 05/13/21 0.04 gram-1 kcal/mL oral liquid (Boost) water 120 ea PO QID@07,1130,,07/28/18 10/08/22 05/13/21 acetaminophen 160 mg/5 mL oral 640 mg (20 mL) PO Q6H PRN fever or 12/21/18 10/08/22 Unknown liquid pain #473 mL ibuprofen 100 mg/5 mL oral See Rx Instructions PO Q6H PRN 12/21/18 10/08/22 Unknown suspension fever or pain #473 mL disposable gloves #100 ea 05/12/19 03/21/22 Unknown incontinence pad, liner, disp #20 ea 05/12/19 03/21/22 Unknown Miscellaneous Medical Supply #1 ea 02/22/20 03/21/22 Unknown (Hospital Bed) nut.tx.,elemental,exkcpqx-tsax-tmp 1 ea feeding tube DAILY@1100 08/04/20 10/08/22 05/12/21 11:00 14 gram-230 kcal/45 mL liquid pkt (Xtracal Plus) nebulizers #1 ea 11/01/20 03/21/22 Unknown miscellaneous medical supply 1 ea miscellaneous ONCE #1 ea 12/06/20 03/21/22 Unknown miscellaneous medical supply 1 ea miscellaneous ONCE #1 ea 12/06/20 03/21/22 Unknown incontinence pad, liner, disp #75 ea 01/03/21 03/21/22 Unknown miscellaneous medical supply 1 ea miscellaneous ONCE #180 ea 01/03/21 03/21/22 Unknown miscellaneous medical supply #30 ea 01/31/21 03/21/22 Unknown ([place] [facility]) cetirizine 10 mg tablet 10 mg feeding tube QAM #90 tabs 11/29/21 10/08/22 Unknown polyethylene glycol 3350 17 See Rx Instructions .Route 11/29/21 10/08/22 Unknown gram/dose oral powder .COMPLEX #1,530 grams trazodone 50 mg tablet 50 mg feeding tube HS #90 tabs 11/29/21 10/08/22 Unknown Miscellaneous Pulmonary Supply #1 ea 12/23/21 03/21/22 Unknown clonazepam 0.5 mg disintegrating 0.5 mg feeding tube DIRECTED 01/06/22 10/08/22 Unknown tablet PRN PROLONGED SEIZURES #30 tabs diaper,brief,adult,disposable (Day #180 ea 03/25/22 Unknown and Night Brief, Large) albuterol sulfate 2.5 mg/3 mL 2.5 mg (3 mL) inhalation Q4H PRN 04/30/22 10/08/22 Unknown (0.083 %) solution for nebulization Wheezing/ shortness of breath #540 mL acetylcysteine 200 mg/mL (20 %) 3 ml inhalation BID #100 mL 06/12/22 10/08/22 Unknown solution baclofen 20 mg tablet 20 mg feeding tube TID 30 days #90 08/13/22 10/08/22 Unknown tabs fluoxetine 20 mg tablet 20 mg feeding tube QDL #30 tabs 08/13/22 10/08/22 Unknown zonisamide 100 mg capsule 200 mg feeding tube .COMPLEX 30 08/13/22 10/08/22 Unknown days #90 caps budesonide 0.5 mg/2 mL suspension 0.5 mg (2 mL) inhalation BID #120 08/18/22 10/08/22 Unknown for nebulization mL sodium chloride 7 % for 4 ml inhalation BID PRN Other 09/26/22 10/08/22 Unknown nebulization tobramycin with nebulizer 300 mg/5 300 mg inhalation DIRECTED 09/26/22 10/08/22 Unknown mL solution for nebulization ciprofloxacin HCl 750 mg tablet 750 mg feeding tube Q8H #36 tabs 09/28/22 10/08/22 Unknown albuterol sulfate 2.5 mg/3 mL See Rx Instructions .Route .COMPLEX 10/08/22 10/08/22 Unknown (0.083 %) solution for nebulization valproic acid (as sodium salt) 250 550 mg feeding tube TID 10/08/22 10/08/22 Unknown mg/5 mL oral solution Active Medications Generic Name Dose Route Start Last Admin Trade Name Freq PRN Reason Stop Dose Admin Acetylcysteine 3 ml 10/08/22 19:00 10/16/22 08:09 Acetylcysteine 20% Inhal Soln 4ml Dispensed By Resp. INH 11/07/22 18:59 3 ml BIDR KENNEDY Administration Albuterol 2.5 mg 10/08/22 13:51 10/15/22 02:34 Albuterol 0.083% Nebu Soln 3 Ml Vial INH 11/07/22 13:50 2.5 mg Q4H PRN Administration Wheezing/ shortness of breath Protocol Albuterol 2.5 mg 10/11/22 11:00 10/16/22 08:10 Albuterol 0.083% Nebu Soln 3 Ml Vial NEB 11/10/22 10:59 2.5 mg QIDR KENNEDY Administration Protocol Baclofen 20 mg 10/08/22 14:30 10/16/22 07:50 Baclofen 20 Mg Tab PEG 11/07/22 14:29 20 mg TID KENNEDY Administration Budesonide 0.5 mg 10/08/22 19:00 10/16/22 08:10 Budesonide 0.5 Mg/2 Ml Vial (Pulmicort) INH 11/07/22 18:59 0.5 mg BIDR KENNEDY Administration Cetirizine HCl 10 mg 10/09/22 09:00 10/16/22 07:51 Cetirizine Hcl 10 Mg Tablet PO 11/08/22 08:59 10 mg QAM KENNEDY Administration Clonazepam 0.5 mg 10/08/22 14:16 10/10/22 21:14 Clonazepam 0.5 Mg Tab PO 11/07/22 14:15 0.5 mg DAILY PRN Administration PROLONGED SEIZURES Doxycycline Hyclate 100 mg 10/11/22 21:00 10/16/22 07:51 Doxycycline Hyclate 100 Mg Cap PO 10/20/22 21:01 100 mg BID KENNEDY Administration Fentanyl Citrate 25 mcg 10/15/22 12:25 10/16/22 04:34 Fentanyl Citrate Pf 100 Mcg/2 Ml Vial IV 10/29/22 12:24 25 mcg Q4H PRN Administration PAIN/DISCOMFORT Fluoxetine HCl 20 mg 10/09/22 11:30 10/15/22 11:28 Fluoxetine Hcl 20 Mg/5 Ml Udp PO 11/08/22 11:29 20 mg QDL KENNEDY Administration Heparin Sodium (Porcine) 5,000 units 10/14/22 09:30 10/16/22 07:52 Heparin Sod 5,000 Unit/0.5 Ml Vial SQ 11/13/22 09:29 5,000 units Q12 KENNEDY Administration Pantoprazole Sodium 40 mg/ 10 mls @ 5 mls/min 10/12/22 09:00 10/16/22 07:52 Syringe IV 11/11/22 08:59 5 mls/min BID KENNEDY Administration Ceftazidime 2,000 mg/ Dextrose 60 mls @ 120 mls/hr 10/13/22 16:00 10/16/22 08:34 IV 10/20/22 15:59 Infused Q8H KENNEDY Infusion Protocol Potassium Chloride 20 meq in 100 mls @ 50 mls/hr 10/16/22 06:00 10/16/22 09:49 K Salo / Wtr IV 10/16/22 11:59 50 mls/hr Q2H KENNEDY Administration Miscellaneous 1 each 10/13/22 18:00 10/16/22 06:13 Icu Electrolyte Replacement Protocol N/A 10/20/22 17:59 1 each BID@06,18 KENNEDY Administration Protocol Nutritional Formula 240 ml 10/15/22 15:30 10/16/22 07:48 Patient's Own Enteral Feeding PEG 11/14/22 15:29 240 ml 0700,1130,1530,2000 KENNEDY Administration Polyethylene Glycol 17 gm 10/13/22 09:00 10/16/22 07:54 Polyethylene (Miralax) 17 Gm Pack PEG 11/07/22 14:29 17 gm DAILY KENNEDY Administration Trazodone HCl 50 mg 10/08/22 21:00 10/15/22 21:15 Trazodone Hcl 50 Mg Tab PEG 11/07/22 20:59 50 mg HS KENNEDY Administration Valproic Acid 550 mg 10/08/22 14:30 10/16/22 07:52 Valproic Acid 50 Mg/Ml Udp PEG 11/07/22 14:29 550 mg TID KENNEDY Administration Zonisamide 2 each 10/09/22 09:00 10/16/22 07:52 Zonisamide 100mg Capsules PO 11/08/22 08:59 2 each QAM KENNEDY Administration Zonisamide 1 each 10/08/22 21:00 10/15/22 21:14 Zonisamide 100mg Capsules PO 11/07/22 20:59 1 each HS KENNEDY Administration (2) Bilateral pneumonia Lung location: lower lobe of lung Pneumonia type: due to unspecified organism Qualified Code(s): J18.9 - Pneumonia, unspecified organism (3) Sepsis Sepsis acute organ dysfunction status: unspecified Sepsis type: sepsis due to unspecified organism Qualified Code(s): A41.9 - Sepsis, unspecified organism
[2022-10-16] MEDS: ALBUMIN 25% 12.5 GM/50 ML VIAL IV SCH ×2 (11:46→12:45)
[2022-10-16] MEDS ORDERED: FUROSEMIDE 40 MG/4 ML VIAL IV ONE (12:30)
--- NOTE | 2022-10-16 14:31 | Hospitalist Progress Note ---
Date of Service October 16, 2022 Assessment & Plan (1) Acute respiratory failure with hypoxia: Plan: Patient with chronic ventilator use at night trach collar during the day now requiring ventilator throughout the day Concern for sepsis on presentation with leukocytosis tachycardia and hypotension, multifocal pneumonia concern for gram negative pneumonia BC NGTD Known resistance to Levaquin/tobramycin/gentamicin ID following Mycoplasma/Legionella negative - Initially was placed on cefepime then Zosyn then Ceftolazone- tazobactam(started 10/12/22) and now ceftazidime per infectious disease recommendation also continues on Doxycycline and inhaled tobramycin has been discontinued Doxycycline continued for atypical coverage, 10-day course Leukocytosis is slowly improving - CT scan of head neck chest abdomen pelvis may suggest acalculus cholecystitis however there is also comments on progression of multifocal pneumonia doxycycline was added for atypical coverage. General surgery did see and ordered HIDA scan for 10/13 showing normal gallbladder ejection fraction - continue her typical pulmonary support with albuterol nebulizer scheduled and as needed Mucomyst scheduled Pulmicort plus nebulized tobramycin. Patient does use a chest vest and CoughAssist at home Diuresis to assist in ventilation is being accomplished with Lasix and albumin Per discussions with patient's mother, continue supportive care at this time but no escalation to significant surgery or procedures (2) Anemia: Plan: Pt has had HGb trend down to 7.6, stopped ibuprofen, start bolus protonix, tr ansfused 1 u prbc ? if this is part of her pain issue, maybe from discard when drawing blood from picc line, this is 10cc per draw discarded Hemoglobin with appropriate rise and up trended (3) Quadriplegic cerebral palsy: Plan: Pt typically with trache and peg tube support bowel regimen with daily miralax Tube feeds being modified and followed by nutrition while in ICU, free water decreased due to observed hyponatremia (4) Seizure disorder: Plan: valproic acid level is slightly elevated, last admission due to meropenem did have elevation of dose for a time, level is 110( high normal is 100)will reduce dose to 500 from 550 level did improve repeat therapeutic although lower (5) Allergic rhinitis: Plan: continue claritan Plan patient's hyponatremia is improved, free water decreased as noted patient remains hypotensive which limits diuresis not quite tolerating full tube feeds antibiotic eventual choices in question and eventual disposition now may be considering LTAC pt is a conditional code outlook remains guarded Admission and Anticipated Discharge Date Admission Date: October 08, 2022 Subjective Seen in ICU, discussed at multidisciplinary rounds. Patient is nonverbal at baseline. Breathing over vent. History limited by cognitive status and ETT. Review of Systems Review of Systems: Unobtainable due to cognitive status and Unobtainable due to endotracheal tube Physical Exam Physical Exam: General: Appears comfortable in room HEENT: Atraumatic, normocephalic. Pulm: On mechanical ventilation via trach Cardiac: Regular, tachycardic Results & Data Results & Data Vital Signs (Past 12 Hours) Vital Signs Temp Pulse Resp BP Pulse Ox O2 Del Method FiO2 10/16/22 12:00 37.7 C H 106 H 31 H 93 10/16/22 12:00 97/63 L 10/16/22 11:00 37.5 C 100 H 28 H 96 10/16/22 11:00 100/70 10/16/22 12:00 35 10/16/22 12:05 105 H 33 H 95 35 10/16/22 10:00 37.6 C H 103 H 27 H 97 10/16/22 10:00 99/64 L 10/16/22 09:00 37.7 C H 110 H 22 97 10/16/22 09:00 100/66 10/16/22 08:00 37.8 C H 104 H 26 H 91 10/16/22 08:00 96/60 L 10/16/22 07:00 37.9 C H 97 H 31 H 91 10/16/22 07:00 97/51 L 10/16/22 08:00 Mechanical Vent 10/16/22 08:00 45 10/16/22 09:00 99 H 28 H 91 50 10/16/22 06:00 38.0 C H 108 H 22 106/64 88 L 10/16/22 05:00 38.0 C H 104 H 26 H 101/63 91 10/16/22 04:00 37.9 C H 96 H 22 101/67 95 10/16/22 04:00 40 10/16/22 03:00 37.8 C H 96 H 22 100/61 96 10/16/22 03:03 24 40 PG Care Time/CCT Total # of Minutes Spent Total Time Spent with Patient: Total time spent is greater than 50% in coordination of care (as documented) at patient's floor/unit and/or counseling patient: Coding Level of Care Code 88684 SUB INP/OBS CARE 03/19MIN Diagnoses Acute respiratory failure with hypoxia J96.01 Anemia D64.9 Anemia type: unspecified type Quadriplegic cerebral palsy G80.8 Seizure disorder G40.909 Allergic rhinitis J30.9 (2) Anemia Anemia type: unspecified type Qualified Code(s): D64.9 - Anemia, unspecified
[2022-10-16] MEDS: dexMEDEtomidine 200 MCG/50 ML BAG IV SCH (15:20)
[2022-10-16 18:36] LABS: Anti Nuclear Antibody Screen NEGATIVE (NEGATIVE); Mycoplasma pneumoniae Ab, IgG <=0.90 (<=0.90); Mycoplasma pneumoniae Ab, IgM 580 U/mL (<770); Rheumatoid Factor <14 IU/mL (<14)
[2022-10-16] MEDS: traZODone HCL 50 MG TAB PEG SCH (21:49)
[2022-10-17 05:57] LABS: Basophils # (auto) 0.02 K/uL (0.00-0.20); Basophils % (auto) 0.3 %; Eosinophils # (auto) 0.27 K/uL (0.00-0.50); Eosinophils % (auto) 3.6 %; Hematocrit (blood only) 31.7 % (37.0-47.0); Hemoglobin 10.2 g/dl (12.0-16.0); Immature Granulocytes # (auto) 0.09 K/uL (0.01-0.20); Immature Granulocytes % (auto) 1.2 %; Lymphocytes # (auto) 1.18 K/uL (1.20-3.40); Lymphocytes % (auto) 15.6 %; Mean Corpuscular Hemoglobin 31.3 pg (25.0-34.0); Mean Corpuscular Hgb Conc 32.2 g/dL (32.0-36.0); Mean Corpuscular Volume 97.2 fL (80.0-100.0); Mean Platelet Volume 8.5 fL (9.4-12.4); Monocytes # (auto) 0.95 K/uL (0.11-0.59); Monocytes % (auto) 12.5 %; Neutrophils # (auto) 5.07 K/uL (1.40-6.50); Neutrophils % (auto) 66.8 %; Platelet Count 304 K/uL (130-400); RDW Coefficient of Variation 13.7 % (11.5-14.5); Red Blood Count 3.26 M/uL (4.20-5.40); White Blood Count 7.58 K/ul (4.8-10.8)
[2022-10-17 06:11] LABS: Anion Gap 8 (3-11); Blood Urea Nitrogen 13 mg/dl (6-23); Calcium 9.7 mg/dl (8.6-10.3); Carbon Dioxide 25 mmol/L (21-32); Chloride 101 mmol/L (98-107); Creatinine Clr Calc Pharmacy 164.7 ml/min; Est GFR (African American) > 150.0 ml/min; Est GFR (Non-African American) 141.5 ml/min; Glucose 101 mg/dl (70-99(Fasting)); Magnesium 2.1 mg/dl (1.7-2.4); Phosphorus 3.6 mg/dl (2.5-4.9); Sodium 134 mmol/L (136-145)
[2022-10-17] MEDS: ICU ELECTROLYTE REPLACEMENT PROTOCOL SCH ×2 (06:20→18:21)
--- NOTE | 2022-10-17 06:57 | Hospitalist Progress Note ---
Date of Service October 17, 2022 Assessment & Plan (1) Acute respiratory failure with hypoxia: Plan: Patient with chronic ventilator use at night trach collar during the day now requiring ventilator throughout the day Concern for sepsis on presentation with leukocytosis tachycardia and hypotension, multifocal pneumonia concern for gram negative pneumonia BCx NGTD Cholelithiasis on imaging earlier this admission, HIDA without evidence of cholecystitis Leukocytosis resolved Mycoplasma/Legionella negative Known resistance to Levaquin/tobramycin/gentamicin ID following; continue doxycycline x10 days total and ceftaz x10-14 days Doxycycline continued for atypical coverage, 10-day course Continue her typical pulmonary support with albuterol nebulizer, Mucomyst, added hypertonic saline Patient does use a chest vest and CoughAssist at home Diuresis to assist in ventilation is being accomplished with Lasix and albumin Per discussions with patient's mother, continue supportive care at this time but no escalation to significant surgery or procedures, no chest compressions or defibrillation in the event of cardiac arrest (2) Anemia: Plan: Hgb 7.6 -> 10.2 and is s/p 1u PRBCs (3) Quadriplegic cerebral palsy: Plan: Pt typically with trach and peg tube support bowel regimen with daily miralax Tube feeds being modified and followed by nutrition while in ICU, free water decreased due to hyponatremia (4) Seizure disorder: Plan: Continue valproic acid 550 daily and zonisamide total 3mg daily (5) Allergic rhinitis: Plan: continue cetirizine (6) Bilateral pneumonia: Plan: see above Plan Trial of pressure support today, and if able to tolerate can trial trach collar tomorrow Care per ICU, will follow, case discussed today at multidisciplinary rounds Admission and Anticipated Discharge Date Admission Date: October 08, 2022 Subjective No acute distress, no events per nursing overnight Alert, unable to assess otherwise due to cognitive status Physical Exam Constitutional: WD/WN, vitals as above Respiratory: rhonchorous throughout lungs bilaterally, no wheezes Cardiovascular: regular rhythm, tachycardic, no murmurs, no peripheral edema Gastrointestinal (Abdomen): normal bowel sounds, soft, nontender, no hepatosplenomegaly Skin: no rashes, warm and dry Psychiatric: alert Results & Data Results & Data Vital Signs (Past 12 Hours) Vital Signs Temp Pulse Resp BP Pulse Ox O2 Del Method FiO2 10/17/22 05:00 37.4 C 103 H 28 H 90 10/17/22 05:00 104/67 10/17/22 04:00 37.6 C H 108 H 28 H 90 10/17/22 04:00 108/64 10/17/22 03:00 37.7 C H 103 H 21 95 10/17/22 03:00 91/77 L 10/17/22 02:00 37.7 C H 95 H 27 H 93 10/17/22 02:00 89/60 L 10/17/22 01:00 37.9 C H 97 H 26 H 93 10/17/22 01:00 94/57 L 10/17/22 00:00 38.3 C H 105 H 28 H 92 10/17/22 00:00 101/56 L 10/16/22 23:00 38.3 C H 112 H 25 H 90 10/16/22 23:00 112/68 10/16/22 22:00 38.3 C H 113 H 38 H 91 10/16/22 22:00 129/87 10/16/22 21:00 38.4 C H 108 H 24 95 10/16/22 21:00 128/78 10/16/22 20:00 38.4 C H 109 H 30 H 94 10/16/22 20:00 135/73 10/16/22 19:00 38.2 C H 102 H 32 H 94 10/16/22 19:00 134/77 10/17/22 04:14 Mechanical Vent 10/17/22 04:00 45 10/17/22 03:38 105 H 28 H 92 45 10/17/22 00:00 Mechanical Vent 10/17/22 00:00 45 10/16/22 23:28 105 H 20 92 45 10/16/22 23:12 112 H 10/16/22 20:00 Mechanical Vent 10/16/22 20:00 35 10/16/22 19:24 101 H 22 94 35 PG Care Time/CCT Total # of Minutes Spent Total Time Spent with Patient: Total time spent is greater than 50% in coordination of care (as documented) at patient's floor/unit and/or counseling patient: Coding Level of Care Code 94241 SUB INP/OBS CARE 3/50MIN Diagnoses Acute respiratory failure with hypoxia J96.01 Anemia D64.9 Anemia type: unspecified type Quadriplegic cerebral palsy G80.8 Seizure disorder G40.909 Allergic rhinitis J30.9 Bilateral pneumonia J18.9 Lung location: lower lobe of lung Pneumonia type: due to unspecified organism (2) Anemia Anemia type: unspecified type Qualified Code(s): D64.9 - Anemia, unspecified (6) Bilateral pneumonia Lung location: lower lobe of lung Pneumonia type: due to unspecified organism Qualified Code(s): J18.9 - Pneumonia, unspecified organism
--- NOTE | 2022-10-17 07:05 | XRay Report ---
XR chest 1V portable HISTORY: 27 years-old Female f/u chronic respiratory failure COMPARISON: 10/15/2022 TECHNIQUE: AP view of the chest FINDINGS: Cardiac mediastinal and hilar silhouettes are unchanged. Tracheostomy cannula in place. Right-sided P ICC distal tip projects over the right atrium. Mild to moderately improved aeration of the lungs with decreased mixed interstitial and alveolar opacities. Small pleural effusions with mild bibasilar den sities. IMPRESSION: 1. Mild to moderately improved aeration of the lungs. 2. No pneumothorax. 3. Small pleural effusions. 4. Unchanged positioning of the tracheostomy cannula and right-sided PICC. ACT 112: Negative or not required by law. The above report was generated using voice recognition software. It may contain grammatical, syntax o r spelling errors. Electronically signed by: Ervin Townsend M.D. 10/17/2022 7:04 AM
[2022-10-17] MEDS: BUDESONIDE 0.5 MG/2 ML VIAL (PULMICORT) INH SCH ×2 (07:36→19:42)
[2022-10-17] MEDS: ACETYLCYSTEINE 20% INHAL SOLN 4ML ***DISPENSED BY RESP. INH SCH ×2 (07:36→19:42)
[2022-10-17] MEDS: ALBUTEROL 0.083% NEBU SOLN 3 ML VIAL NEB SCH ×4 (07:37→19:42)
--- NOTE | 2022-10-17 08:00 | Critical Care Progress Note ---
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: (8) Mucus plugging of bronchi: (9) Quadriplegic cerebral palsy: (10) Seizure disorder: Plan Reason Critically Ill: Acute on chronic hypoxic respiratory failure PLAN: Sedation Fentanyl as needed Neuro: Cerebral palsy -Continue current antiepileptics: Depakote level acceptable Ammonia within normal limit Resp: Acute hypoxic respiratory failure -Status post bronchoscopy 10/08: Pseudomonas and Corynebacterium -Requiring supplemental support from invasive mechanical ventilator Bilateral pleural effusions -Small to moderate --> improving -BNP 440 on 10/14/2022 -Continue pulmonary toilet CV: Tachycardia: Chronic --Pericardial effusion -Negative troponins and EKG unremarkable previous echo indicated this effusion was smaller than years prior Fluids/Renal: Urine unremarkable, wears diapers chronically Hyponatremia: Improving -Appears to occur during episodes of physiologic stress/infection ID: Abx: Cefepime 10/08 - 10/10 Pip-tazo 10/08, 10/10 - 10/12 Doxycycline 10/11 - present: planned 14 days ceftolozane-tazobactam 10/12-10/13 Ceftazidime 10/13 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 --> resistant to levofloxacin, tobramycin as well as gentamicin Sepsis Febrile illnes -Ears and oropharynx had been examined, no evidence of otitis media, pharyngitis clinically -BioFire negative - Small Pericardial effusion: No real clinical indication for purulent pericarditis -MANDO negative - Brother recently diagnosed with multiple sclerosis -Follow-up mycoplasma IgG, IgM, urinary legionella negative -Empiric doxycycline x 10 days for empiric atypical pneumonia coverage -Leukocytosis: Improving -Repeat blood cultures and fungal culture obtained 10/11: No growth to date -Cholelithiasis --> given normal alk phos, possibility of cholecystitis is low --> HIDA scan negative for signs of cholecystitis 10/13/2022 Liver ultrasound 10/11/2022: Distended gallbladder with layering sludge GI/Nutrition: N.p.o. Heme: Chronic quadriplegic cerebral palsy Endocrine: ICU hyperglycemia protocol TSH and T4 within normal limits --Prophylaxis VTE: Heparin GI: Pantoprazole --No escalation of care Lines: PICC line 10/11/2022 Diet:Tube feeds Plan: In/out: -350 mL, urine output 1700 mL Patient had rhonchi on physical exam today. She is already on Mucomyst and albuterol. I will add hypertonic saline to it. Give another dose of Lasix. Trial of pressure support today. If she is able to tolerate it during the day then we will give trach collar trial tomorrow I have personally spent 33 minutes of critical care time in the direct management of this patient. This is a life/limb threatening event. This includes time spent evaluating patient, direct bedside care, chart review, placing orders, interpretation of diagnostic studies, discussion with consultants, patient, and family members, as well as other required patient management activities. This time is exclusive of all separately billable procedures, and teaching time and separate from and in addition to any other critical care service time. Please note the above document was generated using voice recognition software. It may contain grammatical, syntax or spelling errors. Admission and Anticipated Discharge Date Admission Date: October 08, 2022 Subjective Patient seen and examined at bedside. No acute distress, no adverse events overnight Patient's systolic blood pressure was in the 100s. She was little bit tachypneic when I saw her. I put her on pressure support and she is doing well on pressure support right now. Still spiking low-grade fever Making good amount of urine Tolerating tube feeds Review of Systems Review of Systems: Unobtainable due to mental health condition and Unobtainable due to cognitive status Physical Exam Physical Exam: Constitutional: No acute distress HEENT: EOMI, PERRLA Respiratory system: Decreased entry bilaterally, no wheeze, no rhonchi, positive crackles bilaterally CVS: S1-S2 positive, no murmurs or gallops Abdomen: Soft, nontender, nondistended, positive bowel sounds x4, positive J Tube Extremities: +2 pulses bilaterally radialis/ dorsalis pedis, no cyanosis, no edema Neuro: Moving bilateral upper extremities and lower extremities simultaneously Psych: Unable to assess G/U: Positive Cota Skin: no rashes, warm and dry Lymphatic: no cervical or axillary lymphadenopathy Results & Data Results & Data Vital Signs (Past 12 Hours) Vital Signs Temp Pulse Resp BP Pulse Ox O2 Del Method FiO2 08/25/23 05:00 37.4 C 103 H 28 H 90 10/17/22 05:00 104/67 10/17/22 04:00 37.6 C H 108 H 28 H 90 10/17/22 04:00 108/64 10/17/22 03:00 37.7 C H 103 H 21 95 10/17/22 03:00 91/77 L 10/17/22 02:00 37.7 C H 95 H 27 H 93 10/17/22 02:00 89/60 L 10/17/22 01:00 37.9 C H 97 H 26 H 93 10/17/22 01:00 94/57 L 10/17/22 00:00 38.3 C H 105 H 28 H 92 10/17/22 00:00 101/56 L 10/16/22 23:00 38.3 C H 112 H 25 H 90 10/16/22 23:00 112/68 10/16/22 22:00 38.3 C H 113 H 38 H 91 10/16/22 22:00 129/87 10/16/22 21:00 38.4 C H 108 H 24 95 10/16/22 21:00 128/78 10/16/22 20:00 38.4 C H 109 H 30 H 94 10/16/22 20:00 135/73 10/17/22 04:14 Mechanical Vent 10/17/22 04:00 45 10/17/22 03:38 105 H 28 H 92 45 10/17/22 00:00 Mechanical Vent 10/17/22 00:00 45 10/16/22 23:28 105 H 20 92 45 10/16/22 23:12 112 H 10/16/22 20:00 Mechanical Vent 10/16/22 20:00 35 Laboratory Results 10/17/22 05:27 10/17/22 05:27 Coding Level of Care Code 99552 CRITICAL CARE 1ST 30-74M Diagnoses Sepsis A41.9 Sepsis acute organ dysfunction status: unspecified Sepsis type: sepsis due to unspecified organism Acute respiratory failure with hypoxia J96.01 Sepsis due to pneumonia J18.9; A41.9 Bronchiectasis J47.9 Bilateral pneumonia J18.9 Lung location: lower lobe of lung Pneumonia type: due to unspecified organism Muscle spasticity M62.838 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
[2022-10-17] MEDS: HEPARIN SOD 5,000 UNIT/0.5 ML VIAL SQ SCH ×2 (09:01→21:24)
[2022-10-17] MEDS: PANTOprazole 40 MG in SYRINGE 0 ML IV SCH ×2 (09:01→21:27)
[2022-10-17] MEDS: VALPROIC ACID 50 MG/ML UDP PEG SCH ×3 (09:02→21:25)
[2022-10-17] MEDS: ZONISAMIDE 100 MG PO SCH ×2 (09:02→21:25)
[2022-10-17] MEDS: DOXYCYCLINE HYCLATE 100 MG CAP PO SCH (09:02)
[2022-10-17] MEDS: POLYETHYLENE (MIRALAX) 17 GM PACK PEG SCH (09:02)
[2022-10-17] MEDS: CETIRIZINE HCL 10 MG TABLET PO SCH (09:02)
[2022-10-17] MEDS: BACLOFEN 20 MG TAB PEG SCH ×3 (09:02→21:23)
[2022-10-17] MEDS ORDERED: ACETAMINOPHEN 1000 MG/100 ML IV IV ONE (09:27)
[2022-10-17] MEDS: TUBE FEEDING WATER FLUSH PO SCH ×4 (09:58→20:18)
[2022-10-17] MEDS: PATIENT'S OWN ENTERAL FEEDING PEG SCH ×4 (09:58→20:18)
[2022-10-17] MEDS: ALBUMIN 25% 12.5 GM/50 ML VIAL IV SCH ×2 (10:13→10:44)
[2022-10-17] MEDS ORDERED: FUROSEMIDE 40 MG/4 ML VIAL IV SCH (11:30)
--- NOTE | 2022-10-17 14:21 | Infectious Disease Progress Nt ---
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 GS--rare GPCs -Fungal smear neg, cx pending -AFB smear, cx: pending 10/08 BCx x2:sterile 09/26 Sputum cx: PsA #1 (S cefepime, ceftaz, cipro, valerie, pip/tazo. I levo. R gent.), PsA #2 (S ceftaz, cipro, valerie, pip/tazo. I cefepime. R levo, gent) 08/04 Sputum cx: PsA (S ceftaz, cipro, valerie, pip/tazo. I cefepime, aztreonam. R levo, gent.) 06/23 Sputum cx: PsA (S cefepime, ceftaz, cipro, levo, valerie, pip/tazo. R gent, tobra) 11/25/21 BAL LLL: PsA (S ceftaz, cipro, valerie, pip/tazo. I cefepime. R levo, gent) 11/23/21 Sputum cx: PsA (S ceftaz, cipro, valerie, tobra, pip/tazo. I cefepime, gent. R levo) 08/27/21 Sputum cx: PsA, Achromobacter (S ceftaz, levo, TMP/SMX. I cipro. R cefepime, gent, valerie, pip/tazo) Abx: tobra neb 10/08-10/13 Cefepime 10/08 - 10/10 Pip-tazo 10/08, 10/10 - 10/12 Ceft/tazo 10/12-10/13 ceftazidime 10/13-ongoing doxy 10/11- 10/17 Problems: #Acute hypoxic respiratory failure #Fever #Chronic tracheostomy #h/o Pseudomonas colonization #Seizure disorder on valproic acid # Prolonged QTC 27 yo F with history of cerebral palsy, chronic tracheostomy and vented at night, chronic mucous plugging, Pseudomonas and Achromobacter colonization, seizure disorder, recent admission for tracheitis and discharged 09/28 on ciprofloxacin, who presented on 10/08 with hypoxia, admitted with pneumonia. At her last admission from 09/26-09/28, a CT chest showed no PE, moderate bilateral lower lobe airspace opacities, multifocal bilateral upper lobe airspace opacities. Patient was started on meropenem. Her valproic acid level decreased, likely in the setting of meropenem. Sputum culture grew 2 types of Pseudomonas, both susceptible to ciprofloxacin. She was discharged on high-dose ciprofloxacin 750 mg every 8 hours x12 additional days. Per notes, pt was doing well until about 36 hours prior to presentation, when she was appearing uncomfortable, did not tolerate the ventilator overnight, and had hypoxia overnight. She had a trach change at home without much change in quantity or quality of mucus. In the ED, patient was initially afebrile, HR 130, trach collar 6 L. However, later she became febrile, was placed on ventilator. Labs showed WBC 25, procalcitonin <0.05. RVP/biofire negative. Blood cultures NGTD. CXR showed bibasilar densities. A bronchoscopy was performed, showing moderate thick secretions in the right upper and left lower lobes. Patient was started on cefepime. A CT chest on 10/09 showed worsening multifocal consolidative and groundglass nodules compatible with pneumonia and distended gallbladder with wall thickening and mild pericholecystic fluid. Liver Us showed distended gallbladder with layering sludge, borderline gallbladder wall thickening and pericholecystic edema without shadowing cholelithiasis. HIDA scan was negative. Bronch wash cx 10/08 with normal dawit. Fungal cx pending. Sputum /tract cx with rare PSA ( S to ceftaz, cetaz/corrine, Valerie, pip/tazo) Avoided meropenem because of concern it would lower her valproic acid level in the setting of seizure disorder. The pip-tazo VINICIUS is <=16 (high but susceptible--although it is notable that the susceptibility testing panel at [facility] only tests for pip-tazo VINICIUS down to 16, nothing lower. Therefore, one would only be able to tell susceptible vs intermediate, but not how susceptible. On Zosyn she remained febrile and was switched to ceftolozane-tazobactam 3 g IV q8h extended infusion on 10/12. Doxy added QTc prolonged. Abx switiched from Cef/tazo to Ceftazadime 2 g Iv q 8 hour 10/13 for rare PSA on sputum/trach cx. .Urine legionella ag negative. Picc and trach site are clean. No edema at extremities. Awake/alert on exam but not communicative Leukocytosis resolved. Fevers trended down. T max in last 24 hours 37.8. Remains mechanically ventilated, FiO2 went from 80%.--> 60-->40,peep 5. Recommendations: Continue Ceftazidime 2 g Iv q 8 hour, anticipate 10-14 days of therapy from 10/12 depending on clinical response. Monitor fever curve Follow up repeat BC 10/16 ID will sign off Please call if repeat BC + Alana Wakefield MD, MPH Infectious Disease ID Connect [facility] Call [phone] with questions Admission and Anticipated Discharge Date Admission Date: October 08, 2022 Subjective This patient recommendation is based on a telemedicine consult request which was completed asynchronously through chart review and information provided by the primary physician. The patient was not seen or examined today. The evaluation is consultative in nature and all patient care and treatment decisions can either be accepted or rejected by the patient's primary hospital-based treating physician using their own independent medical judgment for their patient. Time Spent Reviewing Chart: 11 - 20 minutes Fever curve trending down tm 37.8 wbc 7.58, cr 0.42 Results & Data Vital Signs (Past 12 Hours) Vital Signs Temp Pulse Resp BP Pulse Ox O2 Del Method FiO2 10/17/22 12:00 37.6 C H 109 H 30 H 95 10/17/22 12:00 120/79 10/17/22 12:00 45 10/17/22 11:35 112 H 35 H 91 45 10/17/22 11:00 37.6 C H 109 H 30 H 96 10/17/22 11:00 95/61 L 10/17/22 10:01 113/89 10/17/22 10:00 37.8 C H 108 H 30 H 92 10/17/22 09:00 37.7 C H 102 H 26 H 95 10/17/22 09:00 111/81 10/17/22 08:00 37.7 C H 112 H 31 H 92 Mechanical Vent 45 10/17/22 08:00 98/77 L 10/17/22 07:00 37.4 C 105 H 34 H 92 10/17/22 07:00 98/76 L 10/17/22 08:00 Mechanical Vent 45 10/17/22 08:00 45 10/17/22 08:00 106 H 10/17/22 10:23 108 H 10/17/22 08:02 114 H 34 H 93 45 10/17/22 05:00 37.4 C 103 H 28 H 90 10/17/22 05:00 104/67 10/17/22 04:00 37.6 C H 108 H 28 H 90 10/17/22 04:00 108/64 10/17/22 03:00 37.7 C H 103 H 21 95 10/17/22 03:00 91/77 L 10/17/22 04:14 Mechanical Vent 10/17/22 04:00 45 10/17/22 03:38 105 H 28 H 92 45 Laboratory Results Short CBC 10/17/22 Range/Units 05:27 WBC 7.58 (4.8-10.8) K/ul Hgb 10.2 L (12.0-16.0) g/dl Hct 31.7 L (37.0-47.0) % Plt Count 304 (130-400) K/uL BMP 10/17/22 05:27 Sodium 134 L Potassium 4.0 Chloride 101 Carbon Dioxide 25 BUN 13 Creatinine 0.42 L Glucose 101 H Calcium 9.7 Diagnostic Findings Microbiology 10/16/22 13:19 Blood Aerobic Blood Culture - Preliminary No growth in Aerobic bottle after 24 hours. 10/16/22 13:19 Blood Anaerobic Blood Culture - Preliminary No growth in Anaerobic bottle after 24 hours. 10/16/22 13:19 Blood Aerobic Blood Culture - Preliminary No growth in Aerobic bottle after 24 hours. 10/16/22 13:19 Blood Anaerobic Blood Culture - Preliminary No growth in Anaerobic bottle after 24 hours. 10/11/22 07:39 Blood Aerobic Blood Culture - Final No growth in Aerobic bottle after 5 days. 10/11/22 07:39 Blood Anaerobic Blood Culture - Final 10/11/22 07:21 Blood Aerobic Blood Culture - Final No growth in Aerobic bottle after 5 days. 10/11/22 07:21 Blood Anaerobic Blood Culture - Final No growth in Anaerobic bottle after 5 days. 10/10/22 11:25 Sputum,Trach Gram Stain - Final 10/10/22 11:25 Sputum,Trach Sputum Culture - Final Pseudomonas aeruginosa Corynebacterium species 10/08/22 10:24 Blood Aerobic Blood Culture - Final No growth in Aerobic bottle after 5 days. 10/08/22 10:24 Blood Anaerobic Blood Culture - Final No growth in Anaerobic bottle after 5 days. 10/08/22 10:24 Blood Aerobic Blood Culture - Final No growth in Aerobic bottle after 5 days. 10/08/22 10:24 Blood Anaerobic Blood Culture - Final 10/08/22 14:40 Bronch Wash,Left Lower Lobe Acid Fast Bacilli Smear - Final 10/08/22 14:40 Bronch Wash,Left Lower Lobe Acid Fast Bacilli Culture - Preliminary No Acid-Fast Bacilli Isolated - Report 1, Additional Report to Follow. 10/11/22 07:21 Blood Fungal Smear - Final 10/08/22 14:40 Bronch Wash,Left Lower Lobe Fungal Smear - Final 10/08/22 14:40 Bronch Wash,Left Lower Lobe Fungal Culture - Preliminary No yeast or fungus isolated - Report 1, Additional Report to Follow. 10/08/22 14:40 Bronch Wash,Left Lower Lobe Gram Stain - Final 10/08/22 14:40 Bronch Wash,Left Lower Lobe Bronchial Culture - Final Light normal dawit. Chest X-Ray 10/15/22 07:00 XR chest 1V portable HISTORY: 27 years-old Female f/u chronic respiratory failure COMPARISON: 10/11/2022 TECHNIQUE: AP view of the chest FINDINGS: Cardiac silhouette is enlarged. Tracheostomy cannula overlies the midline. A right-sided PICC is unchanged. Telemetry leads overlie the chest. No pneumothorax. Mixed interstitial and alveolar opacities with layering pleural effusions. Bones appear grossly intact. Gastrostomy tube. The patient is rotated toward the left. IMPRESSION: 1. Stable multifocal mixed interstitial and alveolar opacities with layering pleural effusions. 2. Unchanged positioning of the right-sided PICC and tracheostomy cannula. ACT 112: Negative or not required by law. The above report was generated using voice recognition software. It may contain grammatical, syntax or spelling errors. Electronically signed by: Ervin Townsend M.D. 10/15/2022 7:00 AM Chest X-Ray 10/17/22 07:00 XR chest 1V portable HISTORY: 27 years-old Female f/u chronic respiratory failure COMPARISON: 10/15/2022 TECHNIQUE: AP view of the chest FINDINGS: Cardiac mediastinal and hilar silhouettes are unchanged. Tracheostomy cannula in place. Right-sided PICC distal tip projects over the right atrium. Mild to moderately improved aeration of the lungs with decreased mixed interstitial and alveolar opacities. Small pleural effusions with mild bibasilar densities. IMPRESSION: 1. Mild to moderately improved aeration of the lungs. 2. No pneumothorax. 3. Small pleural effusions. 4. Unchanged positioning of the tracheostomy cannula and right-sided PICC. ACT 112: Negative or not required by law. The above report was generated using voice recognition software. It may contain grammatical, syntax or spelling errors. Electronically signed by: Ervin Townsend M.D. 10/17/2022 7:04 AM (2) Bilateral pneumonia Lung location: lower lobe of lung Pneumonia type: due to unspecified organism Qualified Code(s): J18.9 - Pneumonia, unspecified organism (3) Sepsis Sepsis acute organ dysfunction status: unspecified Sepsis type: sepsis due to unspecified organism Qualified Code(s): A41.9 - Sepsis, unspecified organism
[2022-10-17] MEDS: ACETAMINOPHEN 1,000 MG/100 ML VIAL IV PRN (19:37)
[2022-10-17] MEDS: SODIUM CHLOR 7% 4 ML NEB NEB SCH (19:42)
[2022-10-17] MEDS: traZODone HCL 50 MG TAB PEG SCH (21:24)
[2022-10-18 04:53] LABS: Basophils # (auto) 0.03 K/uL (0.00-0.20); Basophils % (auto) 0.5 %; Eosinophils # (auto) 0.32 K/uL (0.00-0.50); Eosinophils % (auto) 5.1 %; Hematocrit (blood only) 30.2 % (37.0-47.0); Immature Granulocytes # (auto) 0.11 K/uL (0.01-0.20); Immature Granulocytes % (auto) 1.7 %; Lymphocytes % (auto) 17.4 %; Mean Corpuscular Hemoglobin 32.2 pg (25.0-34.0); Mean Corpuscular Hgb Conc 33.1 g/dL (32.0-36.0); Mean Corpuscular Volume 97.1 fL (80.0-100.0); Mean Platelet Volume 8.3 fL (9.4-12.4); Monocytes # (auto) 0.97 K/uL (0.11-0.59); Monocytes % (auto) 15.3 %; Platelet Count 250 K/uL (130-400); RDW Coefficient of Variation 13.8 % (11.5-14.5); RDW Standard Deviation 48.5 fL (36.4-46.3); Red Blood Count 3.11 M/uL (4.20-5.40); White Blood Count 6.33 K/ul (4.8-10.8)
[2022-10-18 05:43] LABS: Anion Gap 8 (3-11); BUN Creatinine Ratio 38.5 (10-20); Blood Urea Nitrogen 15 mg/dl (6-23); Calcium 9.6 mg/dl (8.6-10.3); Carbon Dioxide 26 mmol/L (21-32); Chloride 100 mmol/L (98-107); Creatinine Clr Calc Pharmacy 175.3 ml/min; Est GFR (African American) > 150.0 ml/min; Glucose 97 mg/dl (70-99(Fasting)); Magnesium 2.2 mg/dl (1.7-2.4); Phosphorus 5.4 mg/dl (2.5-4.9); Potassium 3.7 mmol/L (3.5-5.1); Sodium 134 mmol/L (136-145)
[2022-10-18] MEDS: ICU ELECTROLYTE REPLACEMENT PROTOCOL SCH ×2 (06:03→17:52)
[2022-10-18] MEDS: POTASSIUM CHLORIDE 20 MEQ/15 ML UDC NG SCH ×2 (06:17→09:20)
[2022-10-18] MEDS ORDERED: POTASSIUM CHLORIDE 20 MEQ/15 ML UDC PO STA (06:44)
--- NOTE | 2022-10-18 07:26 | Hospitalist Progress Note ---
Date of Service October 18, 2022 Assessment & Plan (1) Acute respiratory failure with hypoxia: Plan: Patient with chronic ventilator use at night trach collar during the day, transitioning to such today Concern for sepsis on presentation with leukocytosis tachycardia and hypotension, multifocal pneumonia concern for gram negative pneumonia BCx NGTD, leukocytosis resolved Cholelithiasis on imaging earlier this admission, HIDA without evidence of cholecystitis Mycoplasma/Legionella negative Known resistance to Levaquin/tobramycin/gentamicin ID following; continue doxycycline x10 days total and ceftaz x10-14 days, CM to assist with arranging at home Continue her typical pulmonary support with albuterol nebulizer, Mucomyst, added hypertonic saline Patient does use a chest vest and CoughAssist at home Diuresis to assist in ventilation is being accomplished with Lasix and albumin intermittently Per discussions with patient's mother, continue supportive care at this time but no escalation to significant surgery or procedures, no chest compressions or defibrillation in the event of cardiac arrest (2) Anemia: Plan: Hgb 7.6 -> 10.0 and is s/p 1u PRBCs this admission (3) Quadriplegic cerebral palsy: Plan: Pt typically with trach and PEG tube support bowel regimen with daily Miralax Tube feeds being modified and followed by nutrition while in ICU, free water adjusted due to hyponatremia (4) Seizure disorder: Plan: Continue valproic acid 550 daily and zonisamide total 3mg daily (5) Allergic rhinitis: Plan: continue cetirizine (6) Bilateral pneumonia: Plan: see above Plan Doing fairly well with trach collar today, adjust oxygen as necessary, ventilation at night Anticipate discharge home in the coming days if clinically remains stable to improved, and able to arrange Abx at home Admission and Anticipated Discharge Date Admission Date: October 08, 2022 Subjective Transitioned to trach collar and doing fairly well, a little hypoxic at time but recovers. Fever overnight with last at midnight. Review of Systems Review of Systems: Unobtainable due to cognitive status Physical Exam Constitutional: WD/WN, vitals as above Respiratory: rhonchorous throughout lungs bilaterally, no wheezes Cardiovascular: regular rhythm, tachycardic, no murmurs, no peripheral edema Gastrointestinal (Abdomen): normal bowel sounds, soft, nontender, no hepatosplenomegaly Skin: no rashes, warm and dry Psychiatric: alert Results & Data Results & Data Vital Signs (Past 12 Hours) Vital Signs Temp Pulse Resp BP Pulse Ox O2 Del Method FiO2 10/18/22 06:00 37.1 C 87 19 96 10/18/22 06:00 103/64 10/18/22 05:45 37.1 C 80 22 98 10/18/22 05:30 37.1 C 76 23 96 10/18/22 05:15 37.1 C 82 22 98 10/18/22 05:00 37.1 C 85 18 98 10/18/22 05:00 96/72 L 10/18/22 04:45 36.9 C 85 16 97 10/18/22 04:30 37.0 C 83 13 100 10/18/22 04:15 37.1 C 86 21 96 10/18/22 04:00 37.0 C 82 19 96 10/18/22 04:00 93/62 L 10/18/22 03:45 37.0 C 78 23 96 10/18/22 03:30 37.0 C 88 21 96 10/18/22 03:15 36.9 C 88 20 97 10/18/22 03:00 37.0 C 91 H 18 98 10/18/22 03:00 91/67 L 10/18/22 02:45 37.0 C 93 H 19 97 10/18/22 02:30 37.1 C 93 H 21 96 10/18/22 02:15 37.1 C 93 H 31 H 96 10/18/22 02:00 37.0 C 90 21 96 10/18/22 02:00 93/55 L 10/18/22 01:45 37.0 C 84 14 97 10/18/22 01:30 37.1 C 78 22 97 10/18/22 01:15 37.1 C 84 16 97 10/18/22 05:10 Mechanical Vent 10/18/22 04:00 40 10/18/22 02:30 90 20 94 40 10/18/22 01:00 37.1 C 86 17 97 10/18/22 01:00 97/60 L 10/18/22 00:00 37.8 C H 92 H 22 95 10/18/22 00:00 98/57 L 10/18/22 00:00 40 10/18/22 00:00 90 10/17/22 23:00 38.0 C H 106 H 24 94 10/17/22 23:00 108/65 10/17/22 22:00 38.1 C H 112 H 20 10/17/22 22:00 114/77 10/17/22 21:00 38.3 C H 107 H 13 98 10/17/22 21:00 106/65 10/17/22 20:00 38.5 C H 117 H 35 H 93 10/17/22 20:00 115/65 10/17/22 23:14 108 H 21 94 40 10/17/22 20:30 28 H 40 10/17/22 19:45 109 H 38 H 95 40 10/17/22 20:00 Mechanical Vent 10/17/22 20:00 40 PG Care Time/CCT Total # of Minutes Spent Total Time Spent with Patient: Total time spent is greater than 50% in coordination of care (as documented) at patient's floor/unit and/or counseling patient: Coding Level of Care Code 07155 SUB INP/OBS CARE 3/50MIN Diagnoses Acute respiratory failure with hypoxia J96.01 Anemia D64.9 Anemia type: unspecified type Quadriplegic cerebral palsy G80.8 Seizure disorder G40.909 Allergic rhinitis J30.9 Bilateral pneumonia J18.9 Lung location: lower lobe of lung Pneumonia type: due to unspecified organism (2) Anemia Anemia type: unspecified type Qualified Code(s): D64.9 - Anemia, unspecified (6) Bilateral pneumonia Lung location: lower lobe of lung Pneumonia type: due to unspecified organism Qualified Code(s): J18.9 - Pneumonia, unspecified organism
--- NOTE | 2022-10-18 07:50 | Critical Care Progress Note ---
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: (8) Mucus plugging of bronchi: (9) Quadriplegic cerebral palsy: (10) Seizure disorder: Plan Reason Critically Ill: Acute on chronic hypoxic respiratory failure PLAN: Sedation Fentanyl as needed Neuro: Cerebral palsy -Continue current antiepileptics: Depakote level acceptable Ammonia within normal limit Resp: Acute hypoxic respiratory failure -Status post bronchoscopy 10/08: Pseudomonas and Corynebacterium -Requiring supplemental support from invasive mechanical ventilator Continue with pulmonary toileting Bilateral pleural effusions -Small to moderate --> improving -BNP 440 on 10/14/2022 -Continue pulmonary toilet CV: Tachycardia: Chronic --Pericardial effusion -Negative troponins and EKG unremarkable previous echo indicated this effusion was smaller than years prior Fluids/Renal: Urine unremarkable, wears diapers chronically Hyponatremia: Improving -Appears to occur during episodes of physiologic stress/infection ID: Abx: Cefepime 10/08 - 10/10 Pip-tazo 10/08, 10/10 - 10/12 Doxycycline 10/11 -10/17 ceftolozane-tazobactam 10/12-10/13 Ceftazidime 10/13 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 --> resistant to levofloxacin, tobramycin as well as gentamicin Sepsis Febrile illnes -Ears and oropharynx had been examined, no evidence of otitis media, pharyngitis clinically -BioFire negative - Small Pericardial effusion: No real clinical indication for purulent pericarditis -MANDO negative - Brother recently diagnosed with multiple sclerosis -Follow-up mycoplasma IgG, IgM, urinary legionella negative -Empiric doxycycline x 10 days for empiric atypical pneumonia coverage -Leukocytosis: Improving -Repeat blood cultures and fungal culture obtained 10/11: No growth to date -Cholelithiasis --> given normal alk phos, possibility of cholecystitis is low --> HIDA scan negative for signs of cholecystitis 10/13/2022 Liver ultrasound 10/11/2022: Distended gallbladder with layering sludge GI/Nutrition: N.p.o. Heme: Chronic quadriplegic cerebral palsy Endocrine: ICU hyperglycemia protocol TSH and T4 within normal limits --Prophylaxis VTE: Heparin GI: Pantoprazole --No escalation of care Lines: PICC line 10/11/2022 Diet:Tube feeds Plan: In/out: +44 mL, urine output 1136 Dose of Lasix Trach collar during the day and vent at night Potassium being replaced Continue with antibiotics till october. Case management to look into see how it can be done at home I have personally spent 32 minutes of critical care time in the direct management of this patient. This is a life/limb threatening event. This includes time spent evaluating patient, direct bedside care, chart review, placing orders, interpretation of diagnostic studies, discussion with consultants, patient, and family members, as well as other required patient management activities. This time is exclusive of all separately billable procedures, and teaching time and separate from and in addition to any other critical care service time. Please note the above document was generated using voice recognition software. It may contain grammatical, syntax or spelling errors. Admission and Anticipated Discharge Date Admission Date: October 08, 2022 Subjective Patient seen and examined at bedside. No acute distress, no adverse events overnight She was put on trach collar She was saturating well on 40% oxygen Low-grade fever. Urinating well Review of Systems Review of Systems: Unobtainable due to mental health condition and Unobtainable due to cognitive status Physical Exam Physical Exam: Constitutional: No acute distress HEENT: EOMI, PERRLA Respiratory system: Decreased entry bilaterally, no wheeze, no rhonchi, positive crackles bilaterally CVS: S1-S2 positive, no murmurs or gallops Abdomen: Soft, nontender, nondistended, positive bowel sounds x4, positive J Tube Extremities: +2 pulses bilaterally radialis/ dorsalis pedis, no cyanosis, no edema Neuro: Moving bilateral upper extremities and lower extremities simultaneously Psych: Unable to assess G/U: Positive Cota Skin: no rashes, warm and dry Lymphatic: no cervical or axillary lymphadenopathy Results & Data Results & Data Vital Signs (Past 12 Hours) Vital Signs Temp Pulse Resp BP Pulse Ox O2 Del Method FiO2 10/18/22 06:00 37.1 C 87 19 96 10/18/22 06:00 103/64 10/18/22 05:45 37.1 C 80 22 98 10/18/22 05:30 37.1 C 76 23 96 10/18/22 05:15 37.1 C 82 22 98 10/18/22 05:00 37.1 C 85 18 98 10/18/22 05:00 96/72 L 10/18/22 04:45 36.9 C 85 16 97 10/18/22 04:30 37.0 C 83 13 100 10/18/22 04:15 37.1 C 86 21 96 10/18/22 04:00 37.0 C 82 19 96 10/18/22 04:00 93/62 L 10/18/22 03:45 37.0 C 78 23 96 10/18/22 03:30 37.0 C 88 21 96 10/18/22 03:15 36.9 C 88 20 97 10/18/22 03:00 37.0 C 91 H 18 98 10/18/22 03:00 91/67 L 10/18/22 02:45 37.0 C 93 H 19 97 10/18/22 02:30 37.1 C 93 H 21 96 10/18/22 02:15 37.1 C 93 H 31 H 96 10/18/22 02:00 37.0 C 90 21 96 10/18/22 02:00 93/55 L 10/18/22 01:45 37.0 C 84 14 97 10/18/22 01:30 37.1 C 78 22 97 10/18/22 01:15 37.1 C 84 16 97 10/18/22 05:10 Mechanical Vent 10/18/22 04:00 40 10/18/22 02:30 90 20 94 40 10/18/22 01:00 37.1 C 86 17 97 10/18/22 01:00 97/60 L 10/18/22 00:00 37.8 C H 92 H 22 95 10/18/22 00:00 98/57 L 10/18/22 00:00 40 10/18/22 00:00 90 10/17/22 23:00 38.0 C H 106 H 24 94 10/17/22 23:00 108/65 10/17/22 22:00 38.1 C H 112 H 20 10/17/22 22:00 114/77 10/17/22 21:00 38.3 C H 107 H 13 98 10/17/22 21:00 106/65 10/17/22 20:00 38.5 C H 117 H 35 H 93 10/17/22 20:00 115/65 10/17/22 23:14 108 H 21 94 40 10/17/22 20:30 28 H 40 10/17/22 20:00 Mechanical Vent 10/17/22 20:00 40 Laboratory Results 10/18/22 04:25 10/18/22 04:25 Coding Level of Care Code 81931 CRITICAL CARE 1ST 30-74M Diagnoses Sepsis A41.9 Sepsis acute organ dysfunction status: unspecified Sepsis type: sepsis due to unspecified organism Acute respiratory failure with hypoxia J96.01 Sepsis due to pneumonia J18.9; A41.9 Bronchiectasis J47.9 Bilateral pneumonia J18.9 Lung location: lower lobe of lung Pneumonia type: due to unspecified organism Muscle spasticity M62.838 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
[2022-10-18] MEDS: ALBUTEROL 0.083% NEBU SOLN 3 ML VIAL NEB SCH ×4 (07:59→20:00)
[2022-10-18] MEDS: ACETYLCYSTEINE 20% INHAL SOLN 4ML ***DISPENSED BY RESP. INH SCH ×2 (07:59→20:00)
[2022-10-18] MEDS: BUDESONIDE 0.5 MG/2 ML VIAL (PULMICORT) INH SCH ×2 (07:59→20:00)
[2022-10-18] MEDS: SODIUM CHLOR 7% 4 ML NEB NEB SCH ×2 (08:00→20:01)
[2022-10-18] MEDS: TUBE FEEDING WATER FLUSH PO SCH ×4 (09:16→20:51)
[2022-10-18] MEDS: PATIENT'S OWN ENTERAL FEEDING PEG SCH ×4 (09:16→20:51)
[2022-10-18] MEDS: PANTOprazole 40 MG in SYRINGE 0 ML IV SCH (09:17)
[2022-10-18] MEDS: ZONISAMIDE 100 MG PO SCH ×2 (09:17→20:52)
[2022-10-18] MEDS: CETIRIZINE HCL 10 MG TABLET PO SCH (09:18)
[2022-10-18] MEDS: BACLOFEN 20 MG TAB PEG SCH ×3 (09:18→20:51)
[2022-10-18] MEDS: HEPARIN SOD 5,000 UNIT/0.5 ML VIAL SQ SCH ×2 (09:18→20:50)
[2022-10-18] MEDS: VALPROIC ACID 50 MG/ML UDP PEG SCH ×3 (09:18→20:50)
[2022-10-18] MEDS: POLYETHYLENE (MIRALAX) 17 GM PACK PEG SCH (09:20)
[2022-10-18] MEDS ORDERED: ALBUMIN 25% 100 ML IV ONE (10:00)
[2022-10-18] MEDS ORDERED: FUROSEMIDE 40 MG/4 ML VIAL IV ONE (12:00)
[2022-10-18] MEDS: ACETAMINOPHEN 1,000 MG/100 ML VIAL IV PRN (18:19)
[2022-10-18] MEDS: traZODone HCL 50 MG TAB PEG SCH (20:51)
[2022-10-19 05:08] LABS: Basophils # (auto) 0.02 K/uL (0.00-0.20); Basophils % (auto) 0.5 %; Eosinophils # (auto) 0.15 K/uL (0.00-0.50); Eosinophils % (auto) 3.6 %; Hematocrit (blood only) 31.4 % (37.0-47.0); Hemoglobin 10.2 g/dl (12.0-16.0); Immature Granulocytes # (auto) 0.08 K/uL (0.01-0.20); Immature Granulocytes % (auto) 1.9 %; Lymphocytes # (auto) 1.07 K/uL (1.20-3.40); Lymphocytes % (auto) 25.8 %; Mean Corpuscular Hemoglobin 31.3 pg (25.0-34.0); Mean Corpuscular Hgb Conc 32.5 g/dL (32.0-36.0); Mean Corpuscular Volume 96.3 fL (80.0-100.0); Mean Platelet Volume 8.4 fL (9.4-12.4); Monocytes # (auto) 0.68 K/uL (0.11-0.59); Monocytes % (auto) 16.4 %; Neutrophils # (auto) 2.15 K/uL (1.40-6.50); Neutrophils % (auto) 51.8 %; Platelet Count 234 K/uL (130-400); RDW Coefficient of Variation 13.9 % (11.5-14.5); RDW Standard Deviation 49.5 fL (36.4-46.3); Red Blood Count 3.26 M/uL (4.20-5.40); White Blood Count 4.15 K/ul (4.8-10.8)
[2022-10-19 05:24] LABS: Anion Gap 7 (3-11); BUN Creatinine Ratio 41.9 (10-20); Blood Urea Nitrogen 18 mg/dl (6-23); Calcium 9.8 mg/dl (8.6-10.3); Carbon Dioxide 28 mmol/L (21-32); Chloride 100 mmol/L (98-107); Est GFR (African American) > 150.0 ml/min; Est GFR (Non-African American) 140.4 ml/min; Glucose 98 mg/dl (70-99(Fasting)); Magnesium 2.3 mg/dl (1.7-2.4); Phosphorus 5.3 mg/dl (2.5-4.9); Potassium 4.1 mmol/L (3.5-5.1); Sodium 135 mmol/L (136-145)
[2022-10-19] MEDS: ICU ELECTROLYTE REPLACEMENT PROTOCOL SCH ×2 (05:45→17:26)
--- NOTE | 2022-10-19 06:59 | Hospitalist Progress Note ---
Date of Service October 19, 2022 Assessment & Plan (1) Acute respiratory failure with hypoxia: Plan: Patient with chronic ventilator use at night trach collar during the day, doing well with transition to such Concern for sepsis on presentation with leukocytosis tachycardia and hypotension, multifocal pneumonia concern for gram negative pneumonia BCx NGTD, leukocytosis resolved Cholelithiasis on imaging earlier this admission, HIDA without evidence of cholecystitis Mycoplasma/Legionella negative Known resistance to Levaquin/tobramycin/gentamicin ID following; continue doxycycline x10 days total and ceftaz x10-14 days, CM assisting with arranging at home Continue her typical pulmonary support with albuterol nebulizer, Mucomyst, added hypertonic saline Patient does use a chest vest and CoughAssist at home Diuresis to assist in ventilation is being accomplished with Lasix and albumin intermittently Per discussions with patient's mother, continue supportive care at this time but no escalation to significant surgery or procedures, no chest compressions or defibrillation in the event of cardiac arrest (2) Anemia: Plan: Hgb 7.6 -> 10.2 and is s/p 1u PRBCs this admission, Hgb stable for last few days (3) Quadriplegic cerebral palsy: Plan: Pt typically with trach and PEG tube support Bowel regimen with daily Miralax Tube feeds back to home regimen today (4) Seizure disorder: Plan: Continue valproic acid 550 daily and zonisamide total 3mg daily (5) Allergic rhinitis: Plan: continue cetirizine (6) Bilateral pneumonia: Plan: see above Plan Doing fairly well with trach collar, adjust oxygen as necessary, ventilation at night Anticipate discharge home in the coming days if clinically remains stable to improved, and able to arrange Abx at home with help from CM Patient remains in ICU, will continue to follow Admission and Anticipated Discharge Date Admission Date: October 08, 2022 Subjective Transitioned to trach collar FiO2 of 30 and doing well, no true fever since 10/17 but low grade fevers intermittently still. Has intermittent cough. No overnight events. Physical Exam Constitutional: WD/WN, vitals as above Respiratory: rhonchorous throughout lungs bilaterally but improved from yesterday, no wheezes, intermittent cough Cardiovascular: regular rhythm, tachycardic, no murmurs, no peripheral edema Gastrointestinal (Abdomen): normal bowel sounds, soft, nontender, no hepatosplenomegaly Skin: no rashes, warm and dry Psychiatric: alert Results & Data Results & Data Vital Signs (Past 12 Hours) Vital Signs Temp Pulse Pulse Resp BP Pulse Ox O2 Del Method 10/19/22 03:36 93 H 20 97 10/19/22 04:00 10/19/22 04:00 37.3 C 89 10 L 96 10/19/22 04:00 101/76 10/19/22 03:00 37.3 C 91 H 13 96 10/19/22 03:00 104/74 10/19/22 02:00 37.3 C 90 17 97 10/19/22 02:00 107/74 10/19/22 01:00 37.3 C 96 H 9 L 96 10/19/22 01:00 113/83 10/19/22 00:00 37.2 C 87 10 L 97 10/19/22 00:00 114/82 10/18/22 23:00 37.3 C 94 H 18 96 10/18/22 23:00 110/82 10/18/22 22:00 37.3 C 102 H 26 H 92 10/18/22 22:00 112/71 10/18/22 22:00 112/71 10/18/22 21:00 37.4 C 99 H 36 H 93 10/18/22 21:00 113/83 10/18/22 20:00 37.5 C 100 H 35 H 93 10/18/22 19:00 37.8 C H 98 H 22 95 10/18/22 19:00 106/70 10/19/22 00:00 10/19/22 00:00 96 H 10/18/22 22:42 91 H 25 H 93 10/18/22 20:00 Trach Collar 10/18/22 20:11 99 H 20 94 Trach Collar O2 Flow Rate FiO2 10/19/22 03:36 40 10/19/22 04:00 40 10/19/22 04:00 10/19/22 04:00 10/19/22 03:00 10/19/22 03:00 10/19/22 02:00 10/19/22 02:00 10/19/22 01:00 10/19/22 01:00 10/19/22 00:00 10/19/22 00:00 10/18/22 23:00 10/18/22 23:00 10/18/22 22:00 10/18/22 22:00 10/18/22 22:00 10/18/22 21:00 10/18/22 21:00 10/18/22 20:00 10/18/22 19:00 10/18/22 19:00 10/19/22 00:00 40 10/19/22 00:00 10/18/22 22:42 40 10/18/22 20:00 10/18/22 20:11 12 40 PG Care Time/CCT Total # of Minutes Spent Total Time Spent with Patient: Total time spent is greater than 50% in coordination of care (as documented) at patient's floor/unit and/or counseling patient: Coding Level of Care Code 20678 SUB INP/OBS CARE 3/50MIN Diagnoses Acute respiratory failure with hypoxia J96.01 Anemia D64.9 Anemia type: unspecified type Quadriplegic cerebral palsy G80.8 Seizure disorder G40.909 Allergic rhinitis J30.9 Bilateral pneumonia J18.9 Lung location: lower lobe of lung Pneumonia type: due to unspecified organism (2) Anemia Anemia type: unspecified type Qualified Code(s): D64.9 - Anemia, unspecified (6) Bilateral pneumonia Lung location: lower lobe of lung Pneumonia type: due to unspecified organism Qualified Code(s): J18.9 - Pneumonia, unspecified organism
[2022-10-19] MEDS: SODIUM CHLOR 7% 4 ML NEB NEB SCH ×2 (07:47→20:02)
[2022-10-19] MEDS: ACETYLCYSTEINE 20% INHAL SOLN 4ML ***DISPENSED BY RESP. INH SCH ×2 (07:47→20:02)
[2022-10-19] MEDS: BUDESONIDE 0.5 MG/2 ML VIAL (PULMICORT) INH SCH ×2 (07:50→20:02)
[2022-10-19] MEDS: ALBUTEROL 0.083% NEBU SOLN 3 ML VIAL NEB SCH ×4 (07:50→20:02)
--- NOTE | 2022-10-19 07:57 | Critical Care Progress Note ---
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: (8) Mucus plugging of bronchi: (9) Quadriplegic cerebral palsy: (10) Seizure disorder: Plan Reason Critically Ill: Acute on chronic hypoxic respiratory failure PLAN: Sedation Fentanyl as needed Neuro: Cerebral palsy -Continue current antiepileptics: Depakote level acceptable Ammonia within normal limit Resp: Acute hypoxic respiratory failure -Status post bronchoscopy 10/08: Pseudomonas and Corynebacterium -Requiring supplemental support from invasive mechanical ventilator Continue with pulmonary toileting Bilateral pleural effusions -Small to moderate --> improving -BNP 440 on 10/14/2022 -Continue pulmonary toilet CV: Tachycardia: Chronic --Pericardial effusion -Negative troponins and EKG unremarkable previous echo indicated this effusion was smaller than years prior Fluids/Renal: Urine unremarkable, wears diapers chronically Hyponatremia: Improving -Appears to occur during episodes of physiologic stress/infection ID: Abx: Cefepime 10/08 - 10/10 Pip-tazo 10/08, 10/10 - 10/12 Doxycycline 10/11 -10/17 ceftolozane-tazobactam 10/12-10/13 Ceftazidime 10/13 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 --> resistant to levofloxacin, tobramycin as well as gentamicin Sepsis Febrile illnes -Ears and oropharynx had been examined, no evidence of otitis media, pharyngitis clinically -BioFire negative - Small Pericardial effusion: No real clinical indication for purulent pericarditis -MANDO negative - Brother recently diagnosed with multiple sclerosis -Follow-up mycoplasma IgG, IgM, urinary legionella negative -Empiric doxycycline x 10 days for empiric atypical pneumonia coverage -Leukocytosis: Improving -Repeat blood cultures and fungal culture obtained 10/11: No growth to date -Cholelithiasis --> given normal alk phos, possibility of cholecystitis is low --> HIDA scan negative for signs of cholecystitis 10/13/2022 Liver ultrasound 10/11/2022: Distended gallbladder with layering sludge GI/Nutrition: N.p.o. Heme: Chronic quadriplegic cerebral palsy Endocrine: ICU hyperglycemia protocol TSH and T4 within normal limits --Prophylaxis VTE: Heparin GI: Pantoprazole --No escalation of care Lines: PICC line 10/11/2022 Diet:Tube feeds Plan: In/out: Positive to 29, urine output 1191 Chest x-ray from today looks much better. Almost back to patient's baseline. Give another dose of Lasix which will be following albumin Continue with trach collar during the day and vent at night Continue with antibiotics till october. Case management to look into see how patient can get antibiotics at home Please note the above document was generated using voice recognition software. It may contain grammatical, syntax or spelling errors.Any formal questions or concerns about the content, text or information contained within the body of this dictation should be directly addressed to the provider for clarification. Admission and Anticipated Discharge Date Admission Date: October 08, 2022 Subjective Patient seen and examined at bedside. No acute distress, no adverse events overnight She tolerated trach collar all during the day. We will put her on trach collar again today Has been afebrile in the last 24 hours. Tmax 37.6 Review of Systems Review of Systems: Unobtainable due to mental health condition and Un obtainable due to cognitive status Physical Exam Physical Exam: Constitutional: No acute distress HEENT: EOMI, PERRLA Respiratory system: Decreased entry bilaterally, no wheeze, no rhonchi, positive crackles bilaterally CVS: S1-S2 positive, no murmurs or gallops Abdomen: Soft, nontender, nondistended, positive bowel sounds x4, positive J Tube Extremities: +2 pulses bilaterally radialis/ dorsalis pedis, no cyanosis, no edema Neuro: Moving bilateral upper extremities and lower extremities simultaneously Psych: Unable to assess G/U: Positive Cota Skin: no rashes, warm and dry Lymphatic: no cervical or axillary lymphadenopathy Results & Data Results & Data Vital Signs (Past 12 Hours) Vital Signs Temp Pulse Pulse Resp BP Pulse Ox O2 Del Method 10/19/22 07:54 100 H 28 H 94 Trach Collar 10/19/22 03:36 93 H 20 97 10/19/22 04:00 10/19/22 04:00 37.3 C 89 10 L 96 10/19/22 04:00 101/76 10/19/22 03:00 37.3 C 91 H 13 96 10/19/22 03:00 104/74 10/19/22 02:00 37.3 C 90 17 97 10/19/22 02:00 107/74 10/19/22 01:00 37.3 C 96 H 9 L 96 10/19/22 01:00 113/83 10/19/22 00:00 37.2 C 87 10 L 97 10/19/22 00:00 114/82 10/18/22 23:00 37.3 C 94 H 18 96 10/18/22 23:00 110/82 10/18/22 22:00 37.3 C 102 H 26 H 92 10/18/22 22:00 112/71 10/18/22 22:00 112/71 10/18/22 21:00 37.4 C 99 H 36 H 93 10/18/22 21:00 113/83 10/18/22 20:00 37.5 C 100 H 35 H 93 10/19/22 00:00 10/19/22 00:00 96 H 10/18/22 22:42 91 H 25 H 93 10/18/22 20:00 Trach Collar 10/18/22 20:11 99 H 20 94 Trach Collar O2 Flow Rate FiO2 10/19/22 07:54 8 30 10/19/22 03:36 40 10/19/22 04:00 40 10/19/22 04:00 10/19/22 04:00 10/19/22 03:00 10/19/22 03:00 10/19/22 02:00 10/19/22 02:00 10/19/22 01:00 10/19/22 01:00 10/19/22 00:00 10/19/22 00:00 10/18/22 23:00 10/18/22 23:00 10/18/22 22:00 10/18/22 22:00 10/18/22 22:00 10/18/22 21:00 10/18/22 21:00 10/18/22 20:00 10/19/22 00:00 40 10/19/22 00:00 10/18/22 22:42 40 10/18/22 20:00 10/18/22 20:11 12 40 Laboratory Results 10/19/22 04:54 10/19/22 04:54 Coding Level of Care Code 43944 SUB INP/OBS CARE 3/50MIN Diagnoses Sepsis A41.9 Sepsis acute organ dysfunction status: unspecified Sepsis type: sepsis due to unspecified organism Acute respiratory failure with hypoxia J96.01 Sepsis due to pneumonia J18.9; A41.9 Bronchiectasis J47.9 Bilateral pneumonia J18.9 Lung location: lower lobe of lung Pneumonia type: due to unspecified organism 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
--- NOTE | 2022-10-19 08:06 | XRay Report ---
XR chest 1V portable HISTORY: Respiratory failure. COMPARISON: Chest 10/17/2022. FINDINGS: Tracheostomy tube is in good position. A right PICC terminates at the SVC. No pneumothorax. Small left pleural effusion and left basilar densities are again noted. No evidence for pulmonary ed hal. The cardiac silhouette is normal in size. IMPRESSION: 1. Satisfactory support line placement. 2. Left basilar densities and a small left pleural effusion persist. ACT 112: Negative or not required by law. Electronically signed by: Edmund Dorman M.D. 10/19/2022 8:04 AM
[2022-10-19] MEDS: TUBE FEEDING WATER FLUSH PO SCH ×4 (08:09→19:54)
[2022-10-19] MEDS: PATIENT'S OWN ENTERAL FEEDING PEG SCH ×4 (08:09→19:55)
[2022-10-19] MEDS: POLYETHYLENE (MIRALAX) 17 GM PACK PEG SCH (08:14)
[2022-10-19] MEDS: HEPARIN SOD 5,000 UNIT/0.5 ML VIAL SQ SCH ×2 (08:14→19:54)
[2022-10-19] MEDS: CETIRIZINE HCL 10 MG TABLET PO SCH (08:15)
[2022-10-19] MEDS: BACLOFEN 20 MG TAB PEG SCH ×3 (08:15→19:54)
[2022-10-19] MEDS: ZONISAMIDE 100 MG PO SCH ×2 (08:15→19:54)
[2022-10-19] MEDS: LANSOPRAZOLE 30 MG SOLTAB PEG SCH (08:15)
[2022-10-19] MEDS: VALPROIC ACID 50 MG/ML UDP PEG SCH ×3 (08:15→19:53)
[2022-10-19] MEDS: ACETAMINOPHEN 1,000 MG/100 ML VIAL IV PRN (11:48)
[2022-10-19] MEDS: traZODone HCL 50 MG TAB PEG SCH (19:54)
[2022-10-20 04:45] LABS: Anion Gap 8 (3-11); BUN Creatinine Ratio 39.5 (10-20); Blood Urea Nitrogen 17 mg/dl (6-23); Calcium 9.7 mg/dl (8.6-10.3); Carbon Dioxide 27 mmol/L (21-32); Chloride 100 mmol/L (98-107); Creatinine Clr Calc Pharmacy 161.8 ml/min; Est GFR (African American) > 150.0 ml/min; Est GFR (Non-African American) 140.4 ml/min; Glucose 103 mg/dl (70-99(Fasting)); Magnesium 2.2 mg/dl (1.7-2.4); Phosphorus 4.3 mg/dl (2.5-4.9); Potassium 4.2 mmol/L (3.5-5.1); Sodium 135 mmol/L (136-145)
[2022-10-20] MEDS: ICU ELECTROLYTE REPLACEMENT PROTOCOL SCH (04:54)
[2022-10-20] MEDS ORDERED: LORazepam 2 MG/1 ML VIAL IV STA (06:35)
[2022-10-20] MEDS ORDERED: LORazepam 2 MG/1 ML VIAL ONE (06:36)
[2022-10-20] MEDS: BUDESONIDE 0.5 MG/2 ML VIAL (PULMICORT) INH SCH ×2 (07:27→19:00)
[2022-10-20] MEDS: SODIUM CHLOR 7% 4 ML NEB NEB SCH ×2 (07:28→19:00)
[2022-10-20] MEDS: ACETYLCYSTEINE 20% INHAL SOLN 4ML ***DISPENSED BY RESP. INH SCH ×2 (07:28→19:00)
[2022-10-20] MEDS: ALBUTEROL 0.083% NEBU SOLN 3 ML VIAL NEB SCH ×4 (07:28→19:00)
--- NOTE | 2022-10-20 07:56 | Hospitalist Progress Note ---
Date of Service October 20, 2022 Assessment & Plan (1) Acute respiratory failure with hypoxia: Plan: Patient with chronic ventilator use at night trach collar during the day, doing well with transition to such Concern for sepsis on presentation with leukocytosis tachycardia and hypotension, multifocal pneumonia concern for gram negative pneumonia BCx NGTD, leukocytosis resolved Cholelithiasis on imaging earlier this admission, HIDA without evidence of cholecystitis Mycoplasma/Legionella negative Known resistance to Levaquin/tobramycin/gentamicin ID following; completed doxycycline course, continue ceftazidime 2q IV q8h to complete on 10/26/22; CM assisting with arranging for home Continue her typical pulmonary support with albuterol nebulizer, Mucomyst, added hypertonic saline Patient does use a chest vest and CoughAssist at home Per discussions with patient's mother, continue supportive care at this time but no escalation to significant surgery or procedures, no chest compressions or defibrillation in the event of cardiac arrest (2) Anemia: Plan: Hgb 7.6 -> 10.2 and is s/p 1u PRBCs this admission, Hgb stable for last few days (3) Quadriplegic cerebral palsy: Plan: Pt typically with trach and PEG tube support Bowel regimen with daily Miralax Tube feeds back to home regimen (4) Seizure disorder: Plan: Continue valproic acid 550 daily and zonisamide 3 tablets daily (5) Allergic rhinitis: Plan: Continue cetirizine (6) Bilateral pneumonia: Plan: see above Plan Doing fairly well with trach collar, adjust oxygen as necessary, ventilation at night Anticipate discharge home in the coming days if clinically remains stable to improved, and able to arrange Abx at home with help from CM Patient remains in ICU, will continue to follow Admission and Anticipated Discharge Date Admission Date: October 08, 2022 Subjective Overnight had a seizure event and received prn Ativan dose with resolution. Otherwise, no acute events overnight. Review of Systems Review of Systems: Unobtainable due to cognitive status Physical Exam Constitutional: WD/WN, vitals as above Respiratory: bibasilar crackles, no wheezes, intermittent wet cough Cardiovascular: regular rhythm, tachycardic, no murmurs, no peripheral edema Gastrointestinal (Abdomen): normal bowel sounds, soft, nontender, no hepatosplenomegaly Skin: no rashes, warm and dry Psychiatric: alert Results & Data Results & Data Vital Signs (Past 12 Hours) Vital Signs Temp Pulse Pulse Resp BP Pulse Ox O2 Del Method 10/20/22 07:00 37.6 C H 81 29 H 93 10/20/22 07:00 98/64 L 10/20/22 06:00 37.5 C 88 28 H 92 10/20/22 06:00 107/73 10/20/22 05:00 37.5 C 79 20 97 10/20/22 05:00 104/70 10/20/22 04:00 37.4 C 79 19 96 10/20/22 04:00 101/74 10/20/22 03:00 37.2 C 81 19 98 10/20/22 03:00 103/75 10/20/22 02:00 37.1 C 85 20 95 10/20/22 02:00 103/69 10/20/22 04:00 10/20/22 02:53 91 H 22 95 10/20/22 01:00 37.1 C 72 20 98 10/20/22 01:00 107/75 10/20/22 00:00 37.1 C 78 18 98 10/20/22 00:00 100/70 10/19/22 23:00 37.1 C 76 19 97 10/19/22 23:00 100/69 10/19/22 22:00 37.1 C 85 17 94 10/19/22 22:00 96/74 L 10/19/22 21:00 37.1 C 99 H 29 H 92 10/19/22 21:00 105/74 10/19/22 20:00 37.3 C 104 H 30 H 91 10/19/22 20:00 97/74 L 10/19/22 21:50 86 16 93 10/20/22 00:00 79 10/19/22 23:59 10/19/22 20:00 Trach Collar 10/19/22 20:12 101 H 20 93 Trach Collar O2 Flow Rate FiO2 10/20/22 07:00 10/20/22 07:00 10/20/22 06:00 10/20/22 06:00 10/20/22 05:00 10/20/22 05:00 10/20/22 04:00 10/20/22 04:00 10/20/22 03:00 10/20/22 03:00 10/20/22 02:00 10/20/22 02:00 10/20/22 04:00 40 10/20/22 02:53 40 10/20/22 01:00 10/20/22 01:00 10/20/22 00:00 10/20/22 00:00 10/19/22 23:00 10/19/22 23:00 10/19/22 22:00 10/19/22 22:00 10/19/22 21:00 10/19/22 21:00 10/19/22 20:00 10/19/22 20:00 10/19/22 21:50 40 10/20/22 00:00 10/19/22 23:59 40 10/19/22 20:00 30 10/19/22 20:12 8 30 PG Care Time/CCT Total # of Minutes Spent Total Time Spent with Patient: Total time spent is greater than 50% in coordination of care (as documented) at patient's floor/unit and/or counseling patient: Coding Level of Care Code 12329 SUB INP/OBS CARE 2/35MIN Diagnoses Acute respiratory failure with hypoxia J96.01 Anemia D64.9 Anemia type: unspecified type Quadriplegic cerebral palsy G80.8 Seizure disorder G40.909 Allergic rhinitis J30.9 Bilateral pneumonia J18.9 Lung location: lower lobe of lung Pneumonia type: due to unspecified organism (2) Anemia Anemia type: unspecified type Qualified Code(s): D64.9 - Anemia, unspecified (6) Bilateral pneumonia Lung location: lower lobe of lung Pneumonia type: due to unspecified organism Qualified Code(s): J18.9 - Pneumonia, unspecified organism
[2022-10-20] MEDS: PATIENT'S OWN ENTERAL FEEDING PEG SCH ×4 (08:38→20:04)
[2022-10-20] MEDS: TUBE FEEDING WATER FLUSH PO SCH ×4 (08:38→20:02)
[2022-10-20] MEDS: VALPROIC ACID 50 MG/ML UDP PEG SCH ×3 (08:39→20:05)
[2022-10-20] MEDS: CETIRIZINE HCL 10 MG TABLET PO SCH (08:39)
[2022-10-20] MEDS: HEPARIN SOD 5,000 UNIT/0.5 ML VIAL SQ SCH ×2 (08:39→20:04)
[2022-10-20] MEDS: POLYETHYLENE (MIRALAX) 17 GM PACK PEG SCH (08:39)
[2022-10-20] MEDS: BACLOFEN 20 MG TAB PEG SCH ×3 (08:39→20:04)
[2022-10-20] MEDS: LANSOPRAZOLE 30 MG SOLTAB PEG SCH (08:39)
[2022-10-20] MEDS: ZONISAMIDE 100 MG PO SCH ×2 (08:39→20:08)
--- NOTE | 2022-10-20 16:02 | Critical Care Progress Note ---
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: (8) Mucus plugging of bronchi: (9) Quadriplegic cerebral palsy: (10) Seizure disorder: Plan Reason Critically Ill: Acute on chronic hypoxic respiratory failure PLAN: Sedation Fentanyl as needed Neuro: Cerebral palsy -Continue current antiepileptics: Depakote level acceptable Ammonia within normal limit Resp: Acute hypoxic respiratory failure -Status post bronchoscopy 10/08: Pseudomonas and Corynebacterium -Requiring supplemental support from invasive mechanical ventilator Continue with pulmonary toileting Bilateral pleural effusions -Small to moderate --> improving with diuresis -BNP 440 on 10/14/2022 -Continue pulmonary toilet CV: Tachycardia: Chronic --Pericardial effusion -Negative troponins and EKG unremarkable previous echo indicated this effusion was smaller than years prior Fluids/Renal: Urine unremarkable, wears diapers chronically Discontinuing Cota catheter Hyponatremia: Improving -Appears to occur during episodes of physiologic stress/infection -Following BMPs ID: Abx: Cefepime 10/08 - 10/10 Pip-tazo 10/08, 10/10 - 10/12 Doxycycline 10/11 -10/17 ceftolozane-tazobactam 10/12-10/13 Ceftazidime 10/13-patient will require this till October 26 and can be provided by her mother 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 --> resistant to levofloxacin, tobramycin as well as gentamicin Sepsis Febrile illnes -Ears and oropharynx had been examined, no evidence of otitis media, pharyngitis clinically -BioFire negative - Small Pericardial effusion: No real clinical indication for purulent pericarditis -MANDO negative - Brother recently diagnosed with multiple sclerosis -Follow-up mycoplasma IgG, IgM, urinary legionella negative -Empiric doxycycline x 10 days for empiric atypical pneumonia coverage -Leukocytosis: Improving -Repeat blood cultures and fungal culture obtained 10/11: No growth to date -Cholelithiasis --> given normal alk phos, possibility of cholecystitis is low --> HIDA scan negative for signs of cholecystitis 10/13/2022 Liver ultrasound 10/11/2022: Distended gallbladder with layering sludge GI/Nutrition: N.p.o. Heme: Chronic quadriplegic cerebral palsy Endocrine: ICU hyperglycemia protocol TSH and T4 within normal limits --Prophylaxis VTE: Heparin GI: Pantoprazole --No escalation of care Lines: PICC line 10/11/2022 Diet: Enteral tube feeds, possesses PEG tube Plan: In/out: Positive to 29, urine output 1191 Chest x-ray from today looks much better. Almost back to patient's baseline. Give another dose of Lasix which will be following albumin Continue with trach collar during the day and vent at night Continue with antibiotics till october. Case management to look into see how patient can get antibiotics at home Please note the above document was generated using voice recognition software. It may contain grammatical, syntax or spelling errors.Any formal questions or concerns about the content, text or information contained within the body of this dictation should be directly addressed to the provider for clarification. CRITICAL CARE TIME - I have personally spent 37 minutes of critical care time in the direct management of this patient. This is a life/limb threatening event. This includes time spent evaluating patient, direct bedside care, chart review, placing orders, interpretation of diagnostic studies, discussion with consultants, patient, and family members, as well as other required patient management activities. This time is exclusive of all separately billable procedures, and teaching time and separate from and in addition to any other critical care service time. Admission and Anticipated Discharge Date Admission Date: October 08, 2022 Subjective Patient seen today at bedside with nursing personnel and TASNEEM, Jose Luis Lopez No acute changes overnight patient still on trach collar this morning. Review of Systems Review of Systems: Unobtainable due to cognitive status Physical Exam Constitutional: No acute distress Eyes: PERRL, conjunctivae normal, anicteric sclerae ENMT: external ear and nose normal, oropharynx normal Neck: Tracheostomy midline Respiratory: Diminished breath sounds at the bases with crackles. Good inspiratory and expiratory effort. Patient on trach collar during the day and using the ventilator at night Cardiovascular: Rate/Rhythm: regular rate and regular rhythm Gastrointestinal (Abdomen): normal bowel sounds, soft, nontender, no hepatosplenomegaly Receives enteral feedings Neurologic: History of cerebral palsy Genitourinary: Using Cota catheter Results & Data Results & Data Vital Signs (Past 12 Hours) Vital Signs Temp Pulse Pulse Resp BP Pulse Ox O2 Del Method 10/20/22 15:38 108 H 29 H 89 L Trach Collar 10/20/22 15:00 37.9 C H 108 H 28 H 94 Trach Collar 10/20/22 15:00 108/67 10/20/22 14:00 37.8 C H 112 H 41 H 98 10/20/22 14:00 115/68 10/20/22 13:00 37.6 C H 115 H 21 96 10/20/22 13:00 121/70 10/20/22 12:00 37.3 C 115 H 25 H 10/20/22 12:00 112/79 10/20/22 11:00 37.3 C 99 H 31 H 94 10/20/22 11:00 105/70 10/20/22 11:13 101 H 25 H 96 Trach Collar 10/20/22 10:00 37.3 C 100 H 21 97 10/20/22 10:00 117/79 10/20/22 09:00 37.5 C 95 H 31 H 97 10/20/22 09:00 102/75 10/20/22 08:00 37.7 C H 98 H 25 H 87 L 10/20/22 08:00 113/73 10/20/22 08:00 Trach Collar 10/20/22 08:00 101 H 10/20/22 07:57 93 H 18 96 10/20/22 07:00 37.6 C H 81 29 H 93 10/20/22 07:00 98/64 L 10/20/22 06:00 37.5 C 88 28 H 92 10/20/22 06:00 107/73 10/20/22 05:00 37.5 C 79 20 97 10/20/22 05:00 104/70 10/20/22 04:00 37.4 C 79 19 96 10/20/22 04:00 101/74 10/20/22 04:00 O2 Flow Rate FiO2 10/20/22 15:38 12 40 10/20/22 15:00 10/20/22 15:00 10/20/22 14:00 10/20/22 14:00 10/20/22 13:00 10/20/22 13:00 10/20/22 12:00 10/20/22 12:00 10/20/22 11:00 10/20/22 11:00 10/20/22 11:13 12 40 10/20/22 10:00 10/20/22 10:00 10/20/22 09:00 10/20/22 09:00 10/20/22 08:00 10/20/22 08:00 10/20/22 08:00 10/20/22 08:00 10/20/22 07:57 70 10/20/22 07:00 10/20/22 07:00 10/20/22 06:00 10/20/22 06:00 10/20/22 05:00 10/20/22 05:00 10/20/22 04:00 10/20/22 04:00 10/20/22 04:00 40 Critical Care Results & Data Vital Signs (Past 12 Hours) Vital Signs Temp Pulse Pulse Resp BP Pulse Ox O2 Del Method 10/20/22 15:38 108 H 29 H 89 L Trach Collar 10/20/22 15:00 37.9 C H 108 H 28 H 94 Trach Collar 10/20/22 15:00 108/67 10/20/22 14:00 37.8 C H 112 H 41 H 98 10/20/22 14:00 115/68 10/20/22 13:00 37.6 C H 115 H 21 96 10/20/22 13:00 121/70 10/20/22 12:00 37.3 C 115 H 25 H 10/20/22 12:00 112/79 10/20/22 11:00 37.3 C 99 H 31 H 94 10/20/22 11:00 105/70 10/20/22 11:13 101 H 25 H 96 Trach Collar 10/20/22 10:00 37.3 C 100 H 21 97 10/20/22 10:00 117/79 10/20/22 09:00 37.5 C 95 H 31 H 97 10/20/22 09:00 102/75 10/20/22 08:00 37.7 C H 98 H 25 H 87 L 10/20/22 08:00 113/73 10/20/22 08:00 Trach Collar 10/20/22 08:00 101 H 10/20/22 07:57 93 H 18 96 10/20/22 07:00 37.6 C H 81 29 H 93 10/20/22 07:00 98/64 L 10/20/22 06:00 37.5 C 88 28 H 92 10/20/22 06:00 107/73 10/20/22 05:00 37.5 C 79 20 97 10/20/22 05:00 104/70 10/20/22 04:00 37.4 C 79 19 96 10/20/22 04:00 101/74 10/20/22 04:00 O2 Flow Rate FiO2 10/20/22 15:38 12 40 10/20/22 15:00 10/20/22 15:00 10/20/22 14:00 10/20/22 14:00 10/20/22 13:00 10/20/22 13:00 10/20/22 12:00 10/20/22 12:00 10/20/22 11:00 10/20/22 11:00 10/20/22 11:13 12 40 10/20/22 10:00 10/20/22 10:00 10/20/22 09:00 10/20/22 09:00 10/20/22 08:00 10/20/22 08:00 10/20/22 08:00 10/20/22 08:00 10/20/22 07:57 70 10/20/22 07:00 10/20/22 07:00 10/20/22 06:00 10/20/22 06:00 10/20/22 05:00 10/20/22 05:00 10/20/22 04:00 10/20/22 04:00 10/20/22 04:00 40 Lab & Micro Results (Past 24 Hours) RBC 3.29 M/uL (4.20-5.40) L 10/22/22 WBC 6.11 K/ul (4.8-10.8) 10/22/22 Hgb 10.4 g/dl (12.0-16.0) L 10/22/22 Hct 31.8 % (37.0-47.0) L 10/22/22 MCV 96.7 fL (80.0-100.0) 10/22/22 MCH 31.6 pg (25.0-34.0) 10/22/22 MCHC 32.7 g/dL (32.0-36.0) 10/22/22 RDW Standard Deviation 48.4 fL (36.4-46.3) H 10/22/22 RDW Coefficient of Variation 13.7 % (11.5-14.5) 10/22/22 Plt Count 170 K/uL (130-400) 10/22/22 MPV 8.5 fL (9.4-12.4) L 10/22/22 Neutrophils (%) (Auto) 71.6 % 10/22/22 Lymphocytes (%) (Auto) 18.2 % 10/22/22 Monocytes # (Auto) 0.54 K/uL (0.11-0.59) 10/22/22 Eosinophils # (Auto) 0.04 K/uL (0.00-0.50) 10/22/22 Immature Granulocyte % (Auto) 0.5 % 10/22/22 Neutrophils # (Auto) 4.38 K/uL (1.40-6.50) 10/22/22 Lymphocytes # (Auto) 1.11 K/uL (1.20-3.40) L 10/22/22 Monocytes # (Auto) 0.54 K/uL (0.11-0.59) 10/22/22 Eosinophils # (Auto) 0.04 K/uL (0.00-0.50) 10/22/22 Basophils # (Auto) 0.01 K/uL (0.00-0.20) 10/22/22 Immature Granulocyte # (Auto) 0.03 K/uL (0.01-0.20) 3 Na 136 mmol/L (136-145) 10/22/22 K 4.2 mmol/L (3.5-5.1) 10/22/22 Cl 102 mmol/L (98-107) 10/22/22 CO2 27 mmol/L (21-32) 10/22/22 Anion Gap 7 (3-11) 10/22/22 BUN 14 mg/dl (6-23) 10/22/22 Creatinine 0.37 mg/dl (0.6-1.2) L 10/22/22 Estimated GFR ( Amer) > 150.0 ml/min 10/22/22 Estimated GFR (Non-Af Amer) 147.5 ml/min 10/22/22 BUN/Creatinine Ratio 37.8 (10-20) H 10/22/22 Glu 91 mg/dl (70-99(Fasting)) 10/22/22 Ca 9.7 mg/dl (8.6-10.3) 10/22/22 Phosphorus Level 4.7 mg/dl (2.5-4.9) 10/22/22 Mg 2.2 mg/dl (1.7-2.4) 10/22/22 05:43 Calcium Level 9.7 mg/dl (8.6-10.3) 10/22/22 05:43 I & O Totals 24 Hours 10/19/22 10/20/22 10/21/22 06:59 06:59 06:59 Intake Total 1420 / 1420 825 / 825 1020 / 1020 Output Total 1191 / 1191 702 / 702 160 / 160 Balance 229 / 229 123 / 123 860 / 860 Cumulative 10/08/22 08:38 thru 10/20/22 14:00 Intake Total 78328.854 Output Total 62526 Balance 2688.854 RT Ventilator Mngmt (Last Documented) Ventilator Ordered Settings Ventilator Support Mode Assist Control 10/20/22 07:57 Respiratory Rate 29 10/20/22 15:38 Ventilator Tidal Volume 350 10/20/22 07:57 Setting Minute Ventilation 7.1 10/20/22 07:57 Ventilator Positive Pressure 5 10/17/22 20:00 Support Setting Positive End Expiratory 5 10/20/22 07:57 Pressure Fraction of Inspired Oxygen 40 10/20/22 15:38 Peak Inspiratory Flow 40 10/20/22 07:57 Machine Comment weaned to 40% 10/20/22 07:57 Ventilator - PT Measurements Respiratory Rate 29 Exhaled Tidal Volume 413 Minute Ventilation 7.1 Peak Inspiratory Airway 23 Pressure Plateau Pressure 16.1 Respiratory Cycle Inspiratory: 1:3.2 Expiratory Ratio Inspiratory Phase Time 0.70 End-Tidal CO2 29 Static Lung Compliance 37.21 Dynamic Lung Compliance 22.94 Normal Static Lung Compliance 46.00 Patient Measurements Comment pt placed on full vent for HS Coding Level of Care Code 17175 SUB INP/OBS CARE 3/50MIN Diagnoses Sepsis A41.9 Sepsis acute organ dysfunction status: unspecified Sepsis type: sepsis due to unspecified organism Acute respiratory failure with hypoxia J96.01 Sepsis due to pneumonia J18.9; A41.9 Bronchiectasis J47.9 Bilateral pneumonia J18.9 Lung location: lower lobe of lung Pneumonia type: due to unspecified organism 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
[2022-10-20] MEDS: traZODone HCL 50 MG TAB PEG SCH (20:04)
[2022-10-21 05:40] LABS: Basophils # (auto) 0.01 K/uL (0.00-0.20); Basophils % (auto) 0.1 %; Eosinophils # (auto) 0.04 K/uL (0.00-0.50); Eosinophils % (auto) 0.6 %; Hematocrit (blood only) 29.8 % (37.0-47.0); Hemoglobin 9.5 g/dl (12.0-16.0); Immature Granulocytes # (auto) 0.03 K/uL (0.01-0.20); Immature Granulocytes % (auto) 0.4 %; Lymphocytes # (auto) 1.26 K/uL (1.20-3.40); Lymphocytes % (auto) 18.6 %; Mean Corpuscular Hemoglobin 31.3 pg (25.0-34.0); Mean Corpuscular Hgb Conc 31.9 g/dL (32.0-36.0); Mean Platelet Volume 8.4 fL (9.4-12.4); Monocytes # (auto) 0.67 K/uL (0.11-0.59); Monocytes % (auto) 9.9 %; Neutrophils # (auto) 4.77 K/uL (1.40-6.50); Neutrophils % (auto) 70.4 %; Platelet Count 181 K/uL (130-400); RDW Coefficient of Variation 13.9 % (11.5-14.5); RDW Standard Deviation 49.2 fL (36.4-46.3); Red Blood Count 3.04 M/uL (4.20-5.40); White Blood Count 6.78 K/ul (4.8-10.8)
[2022-10-21 05:44] LABS: Anion Gap 8 (3-11); BUN Creatinine Ratio 38.2 (10-20); Blood Urea Nitrogen 13 mg/dl (6-23); Calcium 9.2 mg/dl (8.6-10.3); Carbon Dioxide 27 mmol/L (21-32); Chloride 101 mmol/L (98-107); Creatinine Clr Calc Pharmacy 198.3 ml/min; Est GFR (African American) > 150.0 ml/min; Est GFR (Non-African American) > 150.0 ml/min; Glucose 91 mg/dl (70-99(Fasting)); Sodium 136 mmol/L (136-145)
[2022-10-21] MEDS: ALBUTEROL 0.083% NEBU SOLN 3 ML VIAL NEB SCH ×4 (07:13→19:26)
[2022-10-21] MEDS: BUDESONIDE 0.5 MG/2 ML VIAL (PULMICORT) INH SCH ×2 (07:13→19:25)
[2022-10-21] MEDS: ACETYLCYSTEINE 20% INHAL SOLN 4ML ***DISPENSED BY RESP. INH SCH ×2 (07:13→19:25)
[2022-10-21] MEDS: SODIUM CHLOR 7% 4 ML NEB NEB SCH ×2 (07:14→19:25)
[2022-10-21] MEDS: PATIENT'S OWN ENTERAL FEEDING PEG SCH ×4 (08:26→20:11)
[2022-10-21] MEDS: TUBE FEEDING WATER FLUSH PO SCH ×4 (08:26→20:10)
[2022-10-21] MEDS: BACLOFEN 20 MG TAB PEG SCH ×3 (08:28→20:14)
[2022-10-21] MEDS: LANSOPRAZOLE 30 MG SOLTAB PEG SCH (08:28)
[2022-10-21] MEDS: CETIRIZINE HCL 10 MG TABLET PO SCH (08:28)
[2022-10-21] MEDS: VALPROIC ACID 50 MG/ML UDP PEG SCH ×3 (08:28→20:22)
[2022-10-21] MEDS: HEPARIN SOD 5,000 UNIT/0.5 ML VIAL SQ SCH ×2 (08:28→20:12)
[2022-10-21] MEDS: ZONISAMIDE 100 MG PO SCH ×2 (08:29→20:13)
[2022-10-21] MEDS: POLYETHYLENE (MIRALAX) 17 GM PACK PEG SCH (08:34)
--- NOTE | 2022-10-21 10:33 | Critical Care Progress Note ---
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 Patient has had no further epileptiform activity Resp: Acute hypoxic respiratory failure -Status post bronchoscopy 10/08: Pseudomonas and Corynebacterium -Requiring supplemental support from invasive mechanical ventilator nocturnally Continue with pulmonary toileting Bilateral pleural effusions -Small to moderate --> improving with diuresis -BNP 440 on 10/14/2022 -Continue pulmonary toilet CV: Tachycardia: Chronic --Pericardial effusion -Negative troponins and EKG unremarkable previous echo indicated this effusion was smaller than years prior Fluids/Renal: Urine unremarkable, wears diapers chronically Discontinuing Cota catheter Hyponatremia: Improving -Appears to occur during episodes of physiologic stress/infection -Following BMPs ID: Abx: Cefepime 10/08 - 10/10 Pip-tazo 10/08, 10/10 - 10/12 Doxycycline 10/11 -10/17 ceftolozane-tazobactam 10/12-10/13 Ceftazidime 10/13-patient will require this till October 26 and can be provided by her mother therefore we will arrange for transfer home where she can continue to receive the antibiotic at home. 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 --> resistant to levofloxacin, tobramycin as well as gentamicin Sepsis Febrile illnes -Ears and oropharynx had been examined, no evidence of otitis media, pharyngitis clinically -BioFire negative - Small Pericardial effusion: No real clinical indication for purulent pericarditis -MANDO negative - Brother recently diagnosed with multiple sclerosis -Follow-up mycoplasma IgG, IgM, urinary legionella negative -Empiric doxycycline x 10 days for empiric atypical pneumonia coverage -Leukocytosis: Improving -Repeat blood cultures and fungal culture obtained 10/11: No growth to date -Cholelithiasis --> given normal alk phos, possibility of cholecystitis is low --> HIDA scan negative for signs of cholecystitis 10/13/2022 Liver ultrasound 10/11/2022: Distended gallbladder with layering sludge GI/Nutrition: N.p.o. Heme: Chronic quadriplegic cerebral palsy Endocrine: ICU hyperglycemia protocol TSH and T4 within normal limits --Prophylaxis VTE: Heparin GI: Pantoprazole --No escalation of care Lines: PICC line 10/11/2022 Diet: Enteral tube feeds, possesses PEG tube Plan: In/out: Positive to 29, urine output 1191 Chest x-ray from today looks much better. Almost back to patient's baseline. Give another dose of Lasix which will be following albumin Continue with trach collar during the day and vent at night Continue with antibiotics till october. Case management to look into see how patient can get antibiotics at home Please note the above document was generated using voice recognition software. It may contain grammatical, syntax or spelling errors.Any formal questions or concerns about the content, text or information contained within the body of this dictation should be directly addressed to the provider for clarification. CRITICAL CARE TIME - I have personally spent 37 minutes of critical care time in the direct management of this patient. This is a life/limb threatening event. This includes time spent evaluating patient, direct bedside care, chart review, placing orders, interpretation of diagnostic studies, discussion with consultants, patient, and family members, as well as other required patient management activities. This time is exclusive of all separately billable procedures, and teaching time and separate from and in addition to any other critical care service time. Admission and Anticipated Discharge Date Admission Date: October 08, 2022 Subjective No problems overnight patient remains on trach collar this morning. Working out the logistics with case management in regards to patient continuing to receive her IV antibiotic medications at home while taking care of by her mother and other caretakers. Review of Systems 2 Review of Systems: Unobtainable due to mental health condition and Unobtainable due to cognitive status Physical Exam Constitutional: No acute distress Eyes: PERRL, conjunctivae normal, anicteric sclerae ENMT: external ear and nose normal, oropharynx normal Neck: Patient with chronic tracheostomy Respiratory: Scattered coarse rhonchi with diminished breath sounds to the bases but good inspiratory and expiratory effort. Cardiovascular: Rate/Rhythm: regular rate and regular rhythm Gastrointestinal (Abdomen): normal bowel sounds, soft, nontender, no hepatosplenomegaly Musculoskeletal: Due to patient's cerebral palsy she does have contracted state which makes her bedbound Skin: no rashes, warm and dry Neurologic: Contracted state due to cerebral palsy Genitourinary: Cota cath in place Results & Data Results & Data Vital Signs (Past 12 Hours) Vital Signs Temp Pulse Pulse Resp BP Pulse Ox O2 Del Method 10/21/22 09:00 90 24 98 10/21/22 09:00 99/73 L 10/21/22 08:37 89 25 H 99 10/21/22 08:37 102/69 10/21/22 08:00 87 31 H 99 10/21/22 08:00 104/69 10/21/22 07:00 85 20 98 10/21/22 07:00 107/71 10/21/22 08:00 Trach Collar 10/21/22 08:00 10/21/22 07:46 87 18 98 Trach Collar 10/21/22 06:00 78 22 99 10/21/22 06:00 110/70 10/21/22 05:00 37.1 C 88 13 97 10/21/22 05:00 114/70 10/21/22 03:32 76 22 96 10/21/22 04:00 37.2 C 73 17 97 10/21/22 04:00 105/70 10/21/22 04:00 10/21/22 03:00 37.2 C 78 21 96 10/21/22 03:00 92/56 L 10/21/22 02:00 37.2 C 81 16 99 10/21/22 02:00 97/72 L 10/21/22 01:00 37.1 C 77 16 98 10/21/22 01:00 93/55 L 10/21/22 00:00 37.2 C 85 20 97 10/21/22 00:00 99/61 L 10/20/22 23:00 37.2 C 84 20 96 Mechanical Vent 10/20/22 23:00 97/62 L 10/21/22 00:00 10/21/22 00:00 87 O2 Flow Rate FiO2 10/21/22 09:00 10/21/22 09:00 10/21/22 08:37 10/21/22 08:37 10/21/22 08:00 10/21/22 08:00 10/21/22 07:00 10/21/22 07:00 10/21/22 08:00 12 10/21/22 08:00 40 10/21/22 07:46 12 40 10/21/22 06:00 10/21/22 06:00 10/21/22 05:00 10/21/22 05:00 10/21/22 03:32 40 10/21/22 04:00 10/21/22 04:00 10/21/22 04:00 40 10/21/22 03:00 10/21/22 03:00 10/21/22 02:00 10/21/22 02:00 10/21/22 01:00 10/21/22 01:00 10/21/22 00:00 10/21/22 00:00 10/20/22 23:00 40 10/20/22 23:00 10/21/22 00:00 40 10/21/22 00:00 Critical Care Results & Data Vital Signs (Past 12 Hours) Vital Signs Temp Pulse Pulse Resp BP Pulse Ox O2 Del Method 10/21/22 09:00 90 24 98 10/21/22 09:00 99/73 L 10/21/22 08:37 89 25 H 99 10/21/22 08:37 102/69 10/21/22 08:00 87 31 H 99 10/21/22 08:00 104/69 10/21/22 07:00 85 20 98 10/21/22 07:00 107/71 10/21/22 08:00 Trach Collar 10/21/22 08:00 10/21/22 07:46 87 18 98 Trach Collar 10/21/22 06:00 78 22 99 10/21/22 06:00 110/70 10/21/22 05:00 37.1 C 88 13 97 10/21/22 05:00 114/70 10/21/22 03:32 76 22 96 10/21/22 04:00 37.2 C 73 17 97 10/21/22 04:00 105/70 10/21/22 04:00 10/21/22 03:00 37.2 C 78 21 96 10/21/22 03:00 92/56 L 10/21/22 02:00 37.2 C 81 16 99 10/21/22 02:00 97/72 L 10/21/22 01:00 37.1 C 77 16 98 10/21/22 01:00 93/55 L 10/21/22 00:00 37.2 C 85 20 97 10/21/22 00:00 99/61 L 10/20/22 23:00 37.2 C 84 20 96 Mechanical Vent 10/20/22 23:00 97/62 L 10/21/22 00:00 10/21/22 00:00 87 O2 Flow Rate FiO2 10/21/22 09:00 10/21/22 09:00 10/21/22 08:37 10/21/22 08:37 10/21/22 08:00 10/21/22 08:00 10/21/22 07:00 10/21/22 07:00 10/21/22 08:00 12 10/21/22 08:00 40 10/21/22 07:46 12 40 10/21/22 06:00 10/21/22 06:00 10/21/22 05:00 10/21/22 05:00 10/21/22 03:32 40 10/21/22 04:00 10/21/22 04:00 10/21/22 04:00 40 10/21/22 03:00 10/21/22 03:00 10/21/22 02:00 10/21/22 02:00 10/21/22 01:00 10/21/22 01:00 10/21/22 00:00 10/21/22 00:00 10/20/22 23:00 40 10/20/22 23:00 10/21/22 00:00 40 10/21/22 00:00 Lab & Micro Results (Past 24 Hours) RBC 3.29 M/uL (4.20-5.40) L 10/22/22 WBC 6.11 K/ul (4.8-10.8) 10/22/22 Hgb 10.4 g/dl (12.0-16.0) L 10/22/22 Hct 31.8 % (37.0-47.0) L 10/22/22 MCV 96.7 fL (80.0-100.0) 10/22/22 MCH 31.6 pg (25.0-34.0) 10/22/22 MCHC 32.7 g/dL (32.0-36.0) 10/22/22 RDW Standard Deviation 48.4 fL (36.4-46.3) H 10/22/22 RDW Coefficient of Variation 13.7 % (11.5-14.5) 10/22/22 Plt Count 170 K/uL (130-400) 10/22/22 MPV 8.5 fL (9.4-12.4) L 10/22/22 Neutrophils (%) (Auto) 71.6 % 10/22/22 Lymphocytes (%) (Auto) 18.2 % 10/22/22 Monocytes # (Auto) 0.54 K/uL (0.11-0.59) 10/22/22 Eosinophils # (Auto) 0.04 K/uL (0.00-0.50) 10/22/22 Immature Granulocyte % (Auto) 0.5 % 10/22/22 Neutrophils # (Auto) 4.38 K/uL (1.40-6.50) 10/22/22 Lymphocytes # (Auto) 1.11 K/uL (1.20-3.40) L 10/22/22 Monocytes # (Auto) 0.54 K/uL (0.11-0.59) 10/22/22 Eosinophils # (Auto) 0.04 K/uL (0.00-0.50) 10/22/22 Basophils # (Auto) 0.01 K/uL (0.00-0.20) 10/22/22 Immature Granulocyte # (Auto) 0.03 K/uL (0.01-0.20) 3 Na 136 mmol/L (136-145) 10/22/22 K 4.2 mmol/L (3.5-5.1) 10/22/22 Cl 102 mmol/L (98-107) 10/22/22 CO2 27 mmol/L (21-32) 10/22/22 Anion Gap 7 (3-11) 10/22/22 BUN 14 mg/dl (6-23) 10/22/22 Creatinine 0.37 mg/dl (0.6-1.2) L 10/22/22 Estimated GFR ( Amer) > 150.0 ml/min 10/22/22 Estimated GFR (Non-Af Amer) 147.5 ml/min 10/22/22 BUN/Creatinine Ratio 37.8 (10-20) H 10/22/22 Glu 91 mg/dl (70-99(Fasting)) 10/22/22 Ca 9.7 mg/dl (8.6-10.3) 10/22/22 Phosphorus Level 4.7 mg/dl (2.5-4.9) 10/22/22 Mg 2.2 mg/dl (1.7-2.4) 10/22/22 05:43 Calcium Level 9.7 mg/dl (8.6-10.3) 10/22/22 05:43 I & O Totals 24 Hours 10/20/22 10/21/22 10/22/22 06:59 06:59 06:59 Intake Total 825 / 825 1590 / 1590 60 / 60 Output Total 702 / 702 1005 / 1005 Balance 123 / 123 585 / 585 60 / 60 Cumulative 10/08/22 08:38 thru 10/21/22 09:01 Intake Total 12481.854 Output Total 52963 Balance 2473.854 RT Ventilator Mngmt (Last Documented) Ventilator Ordered Settings Ventilator Support Mode Assist Control 10/21/22 08:00 Respiratory Rate 24 10/21/22 09:00 Ventilator Tidal Volume 350 10/21/22 08:00 Setting Minute Ventilation 7.2 10/21/22 03:32 Ventilator Positive Pressure 5 10/17/22 20:00 Support Setting Positive End Expiratory 5 10/21/22 08:00 Pressure Fraction of Inspired Oxygen 40 10/21/22 08:00 Peak Inspiratory Flow 40 10/20/22 07:57 Machine Comment weaned to 40% 10/20/22 07:57 Ventilator - PT Measurements Respiratory Rate 24 Exhaled Tidal Volume 354 Minute Ventilation 7.2 Peak Inspiratory Airway 17 Pressure Plateau Pressure 16 Respiratory Cycle Inspiratory: 1:2.9 Expiratory Ratio Inspiratory Phase Time 0.7 End-Tidal CO2 33 Static Lung Compliance 36.64 Dynamic Lung Compliance 29.50 Normal Static Lung Compliance 47.00 Patient Measurements Comment pt taken off of the vent, placed on 40% ATC, RN aware Coding Level of Care Code 59017 SUB INP/OBS CARE 3/50MIN Diagnoses Sepsis A41.9 Sepsis acute organ dysfunction status: unspecified Sepsis type: sepsis due to unspecified organism Acute respiratory failure with hypoxia J96.01 Sepsis due to pneumonia J18.9; A41.9 Bronchiectasis J47.9 Bilateral pneumonia J18.9 Lung location: lower lobe of lung Pneumonia type: due to unspecified organism 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
--- NOTE | 2022-10-21 13:32 | Hospitalist Progress Note ---
Date of Service October 21, 2022 Assessment & Plan (1) Acute respiratory failure with hypoxia: Plan: Patient with chronic ventilator use at night trach collar during the day, doing well with transition to such Concern for sepsis on presentation with leukocytosis tachycardia and hypotension, multifocal pneumonia concern for gram negative pneumonia BCx NGTD, leukocytosis resolved Cholelithiasis on imaging earlier this admission, HIDA without evidence of cholecystitis Mycoplasma/Legionella negative Known resistance to Levaquin/tobramycin/gentamicin ID following; completed doxycycline course, continue ceftazidime 2q IV q8h to complete on 10/26/22; CM assisting with arranging for home however home nursing service [facility] lacks staff to care for this Continue her typical pulmonary support with albuterol nebulizer, Mucomyst, a dded hypertonic saline Patient does use a chest vest and CoughAssist at home Per discussions with patient's mother, continue supportive care at this time but no escalation to significant surgery or procedures, no chest compressions or defibrillation in the event of cardiac arrest (2) Anemia: Plan: Hgb 7.6 -> 9.5 and is s/p 1u PRBCs this admission, Hgb stable for last few days (3) Quadriplegic cerebral palsy: Plan: Pt typically with trach and PEG tube support Bowel regimen with daily Miralax Tube feeds back to home regimen (4) Seizure disorder: Plan: Continue valproic acid 550 daily and zonisamide 3 tablets daily (5) Allergic rhinitis: Plan: Continue cetirizine (6) Bilateral pneumonia: Plan: see above Plan Doing well with trach collar, adjust oxygen as necessary, ventilation at night Continue ceftazidime 2q IV q8h to complete on 10/26/22; CM assisting with arranging for home however home nursing service [facility] lacks staff to care for this, may need to stay for IV Abx course Patient remains in ICU, will continue to follow Admission and Anticipated Discharge Date Admission Date: October 08, 2022 Subjective No acute overnight events, patient is alert and calm, smiling Physical Exam Constitutional: WD/WN, vitals as above Respiratory: bibasilar crackles, no wheezes, intermittent wet cough Cardiovascular: regular rhythm, tachycardic, no murmurs, no peripheral edema Gastrointestinal (Abdomen): normal bowel sounds, soft, nontender, no hepatosplenomegaly Skin: no rashes, warm and dry Psychiatric: alert Results & Data Results & Data Vital Signs (Past 12 Hours) Vital Signs Temp Pulse Pulse Resp BP Pulse Ox O2 Del Method 10/21/22 12:00 94 H 29 H 100 10/21/22 12:00 99/68 L 10/21/22 11:53 99 H 18 99 Trach Collar 10/21/22 11:00 99 H 28 H 99 10/21/22 11:00 110/75 10/21/22 10:00 96 H 27 H 100 10/21/22 10:00 105/67 10/21/22 09:00 90 24 98 10/21/22 09:00 99/73 L 10/21/22 08:37 89 25 H 99 10/21/22 08:37 102/69 10/21/22 08:00 87 31 H 99 10/21/22 08:00 104/69 10/21/22 07:00 85 20 98 10/21/22 07:00 107/71 10/21/22 08:00 Trach Collar 10/21/22 08:00 10/21/22 07:46 87 18 98 Trach Collar 10/21/22 06:00 78 22 99 10/21/22 06:00 110/70 10/21/22 05:00 37.1 C 88 13 97 10/21/22 05:00 114/70 10/21/22 03:32 76 22 96 10/21/22 04:00 37.2 C 73 17 97 10/21/22 04:00 105/70 10/21/22 04:00 10/21/22 03:00 37.2 C 78 21 96 10/21/22 03:00 92/56 L 10/21/22 02:00 37.2 C 81 16 99 10/21/22 02:00 97/72 L O2 Flow Rate FiO2 10/21/22 12:00 10/21/22 12:00 10/21/22 11:53 12 40 10/21/22 11:00 10/21/22 11:00 10/21/22 10:00 10/21/22 10:00 10/21/22 09:00 10/21/22 09:00 10/21/22 08:37 10/21/22 08:37 10/21/22 08:00 10/21/22 08:00 10/21/22 07:00 10/21/22 07:00 10/21/22 08:00 12 10/21/22 08:00 40 10/21/22 07:46 12 40 10/21/22 06:00 10/21/22 06:00 10/21/22 05:00 10/21/22 05:00 10/21/22 03:32 40 10/21/22 04:00 10/21/22 04:00 10/21/22 04:00 40 10/21/22 03:00 10/21/22 03:00 10/21/22 02:00 10/21/22 02:00 PG Care Time/CCT Total # of Minutes Spent Total Time Spent with Patient: Total time spent is greater than 50% in coordination of care (as documented) at patient's floor/unit and/or counseling patient: Coding Level of Care Code 80557 SUB INP/OBS CARE 2/35MIN Diagnoses Acute respiratory failure with hypoxia J96.01 Anemia D64.9 Anemia type: unspecified type Quadriplegic cerebral palsy G80.8 Seizure disorder G40.909 Allergic rhinitis J30.9 Bilateral pneumonia J18.9 Lung location: lower lobe of lung Pneumonia type: due to unspecified organism (2) Anemia Anemia type: unspecified type Qualified Code(s): D64.9 - Anemia, unspecified (6) Bilateral pneumonia Lung location: lower lobe of lung Pneumonia type: due to unspecified organism Qualified Code(s): J18.9 - Pneumonia, unspecified organism
[2022-10-21] MEDS: traZODone HCL 50 MG TAB PEG SCH (20:13)
[2022-10-22 06:05] LABS: Basophils # (auto) 0.01 K/uL (0.00-0.20); Basophils % (auto) 0.2 %; Eosinophils # (auto) 0.04 K/uL (0.00-0.50); Eosinophils % (auto) 0.7 %; Hematocrit (blood only) 31.8 % (37.0-47.0); Hemoglobin 10.4 g/dl (12.0-16.0); Immature Granulocytes # (auto) 0.03 K/uL (0.01-0.20); Immature Granulocytes % (auto) 0.5 %; Lymphocytes # (auto) 1.11 K/uL (1.20-3.40); Lymphocytes % (auto) 18.2 %; Mean Corpuscular Hemoglobin 31.6 pg (25.0-34.0); Mean Corpuscular Hgb Conc 32.7 g/dL (32.0-36.0); Mean Corpuscular Volume 96.7 fL (80.0-100.0); Mean Platelet Volume 8.5 fL (9.4-12.4); Monocytes # (auto) 0.54 K/uL (0.11-0.59); Monocytes % (auto) 8.8 %; Neutrophils # (auto) 4.38 K/uL (1.40-6.50); Neutrophils % (auto) 71.6 %; Platelet Count 170 K/uL (130-400); RDW Coefficient of Variation 13.7 % (11.5-14.5); RDW Standard Deviation 48.4 fL (36.4-46.3); Red Blood Count 3.29 M/uL (4.20-5.40); White Blood Count 6.11 K/ul (4.8-10.8)
[2022-10-22 06:21] LABS: Anion Gap 7 (3-11); BUN Creatinine Ratio 37.8 (10-20); Blood Urea Nitrogen 14 mg/dl (6-23); Calcium 9.7 mg/dl (8.6-10.3); Carbon Dioxide 27 mmol/L (21-32); Chloride 102 mmol/L (98-107); Creatinine Clr Calc Pharmacy 178.2 ml/min; Est GFR (African American) > 150.0 ml/min; Est GFR (Non-African American) 147.5 ml/min; Glucose 91 mg/dl (70-99(Fasting)); Magnesium 2.2 mg/dl (1.7-2.4); Phosphorus 4.7 mg/dl (2.5-4.9); Potassium 4.2 mmol/L (3.5-5.1); Sodium 136 mmol/L (136-145)
--- NOTE | 2022-10-22 07:00 | XRay Report ---
XR chest 1V portable CLINICAL HISTORY: Resp failure TECHNIQUE: Single frontal radiograph of the chest was obtained. Comparison: Comparison is made to chest radiograph 10/19/2022 FINDINGS: Lines and tubes are stable. The cardiomediastinal silhouette is normal. Left retrocardiac opacity is seen. No evidence of pleural effusion or pneumothorax. IMPRESSION: Left retrocardiac opacity. which may represent atelectasis, pneumonia, and/or aspiration. ACT 112: Negative or not required by law. Electronically signed by: Raudel Rich M.D. 10/22/2022 6:58 AM
[2022-10-22] MEDS: ALBUTEROL 0.083% NEBU SOLN 3 ML VIAL NEB SCH ×2 (07:24→11:35)
[2022-10-22] MEDS: ACETYLCYSTEINE 20% INHAL SOLN 4ML ***DISPENSED BY RESP. INH SCH (07:25)
[2022-10-22] MEDS: SODIUM CHLOR 7% 4 ML NEB NEB SCH (07:25)
[2022-10-22] MEDS: BUDESONIDE 0.5 MG/2 ML VIAL (PULMICORT) INH SCH (07:25)
--- NOTE | 2022-10-22 07:52 | Discharge Summary ---
Discharge Summary Date of Service October 22, 2022 Admission HPI Per Admitting Provider 27 F with history of Cerebal Palsy, chronic tracheostomy and vented at night, who was discharged from [facility] 09/28 with tracheitis, sputum culture with pseudomonas species, treated with high dose Cipro 750mg tid, and during the stay was restarted on Tobramycin Nebs, these are typically month on month off and are continued at home. The pt was doing well up until 36 hours ago when she declined in regard to appearing uncomfortable, did not tolerate ventilator at night, and had hypocia at night, did have a trache change at home without much change in quantity or quality of mucus. The pt appears uncomfortable, Grimacing, restless, has coarse respirations but non productive. Her personal nurse is present at bedside, she provided this history, and noted no other changes in urine, stool and the pt typically is without menses Admission Exam Per Admitting Provider The patient appeared chronically ill, non verbal, come spastic contractures virtals support possible sepsis from pulmonary source poa Head exam is normocephalic atraumatic Neck is with tracheostomy in place, skin is slightly reddened, non tender to exam, no fluctuance or indurtation. Lungs are coarse bilaterally Cardiac exam, Rhythm is tachycardic Abdominal exam reveals normal bowel sounds, soft non tender, no masses Extremities are nonedematous and both pedal pulses are present Neurologic exam is awake, falls asleep easily, spontaneoously moves about bed, seems to be uncomfortable Principal Dx & Hospital Course #1 = Principal Diagnosis (1) Acute respiratory failure with hypoxia: Patient with chronic ventilator use at night trach collar during the day, doing well with transition to such Concern for sepsis on presentation with leukocytosis tachycardia and hypotension, multifocal pneumonia concern for gram negative pneumonia BCx NGTD, leukocytosis resolved Cholelithiasis on imaging earlier this admission, HIDA without evidence of cholecystitis Mycoplasma/Legionella negative Known resistance to Levaquin/tobramycin/gentamicin ID following; completed doxycycline course, continue ceftazidime 2q IV q8h to complete on 10/26/22 Continue her typical pulmonary support with albuterol nebulizer, Mucomyst, added hypertonic saline Patient does use a chest vest and CoughAssist at home Per discussions with patient's mother, continue supportive care at this time but no escalation to significant surgery or procedures, no chest compressions or defibrillation in the event of cardiac arrest (2) Anemia: Hgb 7.6 -> 10.4 and is s/p 1u PRBCs this admission, Hgb stable for last few days (3) Quadriplegic cerebral palsy: Pt typically with trach and PEG tube support Bowel regimen with daily Miralax Tube feeds back to home regimen (4) Seizure disorder: Continue valproic acid 550 daily and zonisamide 3 tablets daily Did have seizure x1 this admission, aborted with prn Ativan (5) Allergic rhinitis: Continue cetirizine (6) Bilateral pneumonia: see above Plan Doing well with trach collar, adjust oxygen as necessary, ventilation at night Continue ceftazidime 2q IV q8h to complete on 10/26/22 (mother will administer with home nursing checking labs and PICC) Discharge Exam Constitutional WD/WN, vitals as above Respiratory lungs with bibasilar crackles, much improved, no wheezing Cardiovascular mild tachy, regular rhythm, no murmurs Psychiatric alert Updated Medication List Medication Instructions Recorded Confirmed Type food supplemt, lactose-reduced 1.5 ea PO QID@07,1130,,07/28/18 10/08/22 History 0.04 gram-1 kcal/mL oral liquid (Boost) water 120 ea PO QID@07,1130,,07/28/18 10/08/22 History acetaminophen 160 mg/5 mL oral 640 mg (20 mL) PO Q6H PRN fever or 12/21/18 10/08/22 Rx liquid pain #473 mL ibuprofen 100 mg/5 mL oral See Rx Instructions PO Q6H PRN 12/21/18 10/08/22 Rx suspension fever or pain #473 mL disposable gloves #100 ea 05/12/19 03/21/22 Rx incontinence pad, liner, disp #20 ea 05/12/19 03/21/22 Rx Miscellaneous Medical Supply #1 ea 02/22/20 03/21/22 Rx (Hospital Bed) nut.tx.,elemental,txdfyfm-adtx-aen 1 ea feeding tube DAILY@1100 08/04/20 10/08/22 History 14 gram-230 kcal/45 mL liquid pkt (Xtracal Plus) nebulizers #1 ea 11/01/20 03/21/22 Rx miscellaneous medical supply 1 ea miscellaneous ONCE #1 ea 12/06/20 03/21/22 Rx miscellaneous medical supply 1 ea miscellaneous ONCE #1 ea 12/06/20 03/21/22 Rx incontinence pad, liner, disp #75 ea 01/03/21 03/21/22 Rx miscellaneous medical supply 1 ea miscellaneous ONCE #180 ea 01/03/21 03/21/22 Rx miscellaneous medical supply #30 ea 01/31/21 03/21/22 Rx ([place] [facility]) cetirizine 10 mg tablet 10 mg feeding tube QAM #90 tabs 11/29/21 10/08/22 Rx polyethylene glycol 3350 17 See Rx Instructions .Route 11/29/21 10/08/22 Rx gram/dose oral powder .COMPLEX #1,530 grams trazodone 50 mg tablet 50 mg feeding tube HS #90 tabs 11/29/21 10/08/22 Rx Miscellaneous Pulmonary Supply #1 ea 12/23/21 03/21/22 Rx clonazepam 0.5 mg disintegrating 0.5 mg feeding tube DIRECTED 01/06/22 10/08/22 Rx tablet PRN PROLONGED SEIZURES #30 tabs diaper,brief,adult,disposable (Day #180 ea 03/25/22 Rx and Night Brief, Large) albuterol sulfate 2.5 mg/3 mL 2.5 mg (3 mL) inhalation Q4H PRN 04/30/22 10/08/22 Rx (0.083 %) solution for nebulization Wheezing/ shortness of breath #540 mL acetylcysteine 200 mg/mL (20 %) 3 ml inhalation BID #100 mL 06/12/22 10/08/22 Rx solution baclofen 20 mg tablet 20 mg feeding tube TID 30 days #90 08/13/22 10/08/22 Rx tabs fluoxetine 20 mg tablet 20 mg feeding tube QDL #30 tabs 08/13/22 10/08/22 Rx zonisamide 100 mg capsule 200 mg feeding tube .COMPLEX 30 08/13/22 10/08/22 Rx days #90 caps budesonide 0.5 mg/2 mL suspension 0.5 mg (2 mL) inhalation BID #120 08/18/22 10/08/22 Rx for nebulization mL sodium chloride 7 % for 4 ml inhalation BID PRN Other 09/26/22 10/08/22 History nebulization tobramycin with nebulizer 300 mg/5 300 mg inhalation DIRECTED 09/26/22 10/08/22 History mL solution for nebulization albuterol sulfate 2.5 mg/3 mL See Rx Instructions .Route .COMPLEX 10/08/22 10/08/22 History (0.083 %) solution for nebulization valproic acid (as sodium salt) 250 550 mg feeding tube TID 10/08/22 10/08/22 History mg/5 mL oral solution Hospital Stay Data Consultations 10/08/22 11:47 ED Decision to Admit Stat 10/08/22 13:51 Consult [employer] Routine 10/10/22 08:01 Consult Infectious Diseases Routine 10/11/22 14:52 Consult General Surgery Routine Diagnostic Imagining Performed 10/09/22 09:39 CT chest with contrast [CT chest diagnostic w con] Routine 10/11/22 06:50 CT abd pelvis IV con only Routine CT angio chest PE protocol Routine CT neck soft tissues [CT soft tissue neck w con] Routine 10/11/22 07:13 CT face [CT facial bones w con] Routine 10/11/22 13:48 US RUQ [US liver] Routine Discharge Instructions Given to Patient (Per Discharging Provider) Selvin was admitted for fevers and trouble breathing, and found to have a significant pneumonia. She was given IV antibiotics, which she will continue through 10/26/22. This is called ceftazidime and it is every 8 hours until it is complete. The nurses that come into the house will help with PICC checks and any other concerns that you have. She was back to her normal and felt to be safe for discharge back home on her typical oxygen settings at home. If you have any concerns, please seek urgent medical attention. Selvin will have labwork on 10/25/22. She should not need to have every 3 day labwork after that, and can return to the labwork plan per her typical checks through [facility]. Total Time Total Time Spent Total Time Spent (In Minutes): 35 min Coding Level of Care Code 01993 INP/OBS DISCH >30 MIN Diagnoses Acute respiratory failure with hypoxia J96.01 Anemia D64.9 Anemia type: unspecified type Quadriplegic cerebral palsy G80.8 Seizure disorder G40.909 Allergic rhinitis J30.9 Bilateral pneumonia J18.9 Lung location: lower lobe of lung Pneumonia type: due to unspecified organism
[2022-10-22] MEDS: PATIENT'S OWN ENTERAL FEEDING PEG SCH (07:55)
[2022-10-22] MEDS: TUBE FEEDING WATER FLUSH PO SCH (07:55)
[2022-10-22] MEDS: CETIRIZINE HCL 10 MG TABLET PO SCH (07:56)
[2022-10-22] MEDS: BACLOFEN 20 MG TAB PEG SCH (07:56)
[2022-10-22] MEDS: LANSOPRAZOLE 30 MG SOLTAB PEG SCH (07:56)
[2022-10-22] MEDS: HEPARIN SOD 5,000 UNIT/0.5 ML VIAL SQ SCH (07:56)
[2022-10-22] MEDS: VALPROIC ACID 50 MG/ML UDP PEG SCH (07:57)
[2022-10-22] MEDS: ZONISAMIDE 100 MG PO SCH (07:58)
[2022-10-22] MEDS: POLYETHYLENE (MIRALAX) 17 GM PACK PEG SCH (08:06)
--- NOTE | 2022-10-22 12:41 | Critical Care Progress Note ---
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 Patient has had no further epileptiform activity Resp: Acute hypoxic respiratory failure -Status post bronchoscopy 10/08: Pseudomonas and Corynebacterium -Requiring supplemental support from invasive mechanical ventilator nocturna lly Continue with pulmonary toileting Bilateral pleural effusions -Small to moderate --> improving with diuresis -BNP 440 on 10/14/2022 -Continue pulmonary toilet CV: Tachycardia: Chronic --Pericardial effusion -Negative troponins and EKG unremarkable previous echo indicated this effusion was smaller than years prior Fluids/Renal: Urine unremarkable, wears diapers chronically Discontinuing Cota catheter Hyponatremia: Improving -Appears to occur during episodes of physiologic stress/infection -Following BMPs ID: Abx: Cefepime 10/08 - 10/10 Pip-tazo 10/08, 10/10 - 10/12 Doxycycline 10/11 -10/17 ceftolozane-tazobactam 10/12-10/13 Ceftazidime 10/13-patient will require this till October 26 and can be provided by her mother therefore we will arrange for transfer home where she can continue to receive the antibiotic at home. At home antibiotics have been arranged and mother has been taught to provide the rest of her antibiotic course therefore patient will be discharged and sent home where her caretakers and mother can continue her antibiotic administration. 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 --> resistant to levofloxacin, tobramycin as well as gentamicin Sepsis Febrile illnes -Ears and oropharynx had been examined, no evidence of otitis media, pharyngitis clinically -BioFire negative - Small Pericardial effusion: No real clinical indication for purulent pericarditis -MANDO negative - Brother recently diagnosed with multiple sclerosis -Follow-up mycoplasma IgG, IgM, urinary legionella negative -Empiric doxycycline x 10 days for empiric atypical pneumonia coverage -Leukocytosis: Improving -Repeat blood cultures and fungal culture obtained 10/11: No growth to date -Cholelithiasis --> given normal alk phos, possibility of cholecystitis is low --> HIDA scan negative for signs of cholecystitis 10/13/2022 Liver ultrasound 10/11/2022: Distended gallbladder with layering sludge GI/Nutrition: N.p.o. Heme: Chronic quadriplegic cerebral palsy Endocrine: ICU hyperglycemia protocol TSH and T4 within normal limits --Prophylaxis VTE: Heparin GI: Pantoprazole --No escalation of care Lines: PICC line 10/11/2022 Diet: Enteral tube feeds, possesses PEG tube Plan: In/out: Positive to 29, urine output 1191 Chest x-ray from today looks much better. Almost back to patient's baseline. Give another dose of Lasix which will be following albumin Continue with trach collar during the day and vent at night Continue with antibiotics till october. Case management to look into see how patient can get antibiotics at home Please note the above document was generated using voice recognition software. It may contain grammatical, syntax or spelling errors.Any formal questions or concerns about the content, text or information contained within the body of this dictation should be directly addressed to the provider for clarification. CRITICAL CARE TIME - I have personally spent 39 minutes of critical care time in the direct management of this patient. This is a life/limb threatening event. This includes time spent evaluating patient, direct bedside care, chart review, placing orders, interpretation of diagnostic studies, discussion with consultants, patient, and family members, as well as other required patient management activities. This time is exclusive of all separately billable procedures, and teaching time and separate from and in addition to any other critical care service time. Admission and Anticipated Discharge Date Admission Date: October 08, 2022 Review of Systems Review of Systems: Unobtainable due to mental health condition and Unobtainable due to cognitive status Physical Exam Eyes: PERRL, conjunctivae normal, anicteric sclerae ENMT: external ear and nose normal, oropharynx normal Cardiovascular: Rate/Rhythm: regular rate and regular rhythm Gastrointestinal (Abdomen): normal bowel sounds, soft, nontender, no hepatosplenomegaly Skin: no rashes, warm and dry Results & Data Results & Data Vital Signs (Past 12 Hours) Vital Signs Temp Pulse Pulse Resp BP BP Pulse Ox 10/22/22 10:42 36.6 C 94 H 33 H 108/72 94 10/22/22 08:00 89 33 H 94 10/22/22 08:00 105/72 10/22/22 07:00 87 18 100 10/22/22 07:00 118/71 10/22/22 08:00 10/22/22 08:00 36.6 C 10/22/22 08:00 10/22/22 07:26 94 H 22 92 10/22/22 06:00 36.7 C 97 H 28 H 92 10/22/22 06:00 112/77 10/22/22 05:00 86 26 H 89 L 10/22/22 05:00 97/73 L 10/22/22 04:01 85 21 95 10/22/22 04:01 106/89 10/22/22 04:00 79 20 97 10/22/22 04:32 82 18 93 10/22/22 04:00 10/22/22 03:00 77 20 93 10/22/22 03:00 101/67 10/22/22 02:00 62 22 92 10/22/22 02:00 89/60 L 10/22/22 01:00 84 22 90 10/22/22 01:00 96/65 L O2 Del Method O2 Flow Rate FiO2 10/22/22 10:42 10/22/22 08:00 10/22/22 08:00 10/22/22 07:00 10/22/22 07:00 10/22/22 08:00 Trach Collar 10/22/22 08:00 10/22/22 08:00 40 10/22/22 07:26 Trach Collar 12 40 10/22/22 06:00 Mechanical Vent 70 10/22/22 06:00 10/22/22 05:00 10/22/22 05:00 10/22/22 04:01 10/22/22 04:01 10/22/22 04:00 10/22/22 04:32 40 10/22/22 04:00 40 10/22/22 03:00 10/22/22 03:00 10/22/22 02:00 10/22/22 02:00 10/22/22 01:00 10/22/22 01:00 Laboratory Results Laboratory Results WBC 6.11 K/ul (4.8-10.8) 10/22/22 05:43 RBC 3.29 M/uL (4.20-5.40) L 10/22/22 05:43 Hgb 10.4 g/dl (12.0-16.0) L 10/22/22 05:43 Hct 31.8 % (37.0-47.0) L 10/22/22 05:43 MCV 96.7 fL (80.0-100.0) 10/22/22 05:43 MCH 31.6 pg (25.0-34.0) 10/22/22 05:43 MCHC 32.7 g/dL (32.0-36.0) 10/22/22 05:43 RDW Std Deviation 48.4 fL (36.4-46.3) H 10/22/22 05:43 RDW Coeff of Flaquito 13.7 % (11.5-14.5) 10/22/22 05:43 Plt Count 170 K/uL (130-400) 10/22/22 05:43 MPV 8.5 fL (9.4-12.4) L 10/22/22 05:43 Immature Gran % (Auto) 0.5 % 10/22/22 05:43 Neut % (Auto) 71.6 % 10/22/22 05:43 Lymph % (Auto) 18.2 % 10/22/22 05:43 [place] % (Auto) 8.8 % 10/22/22 05:43 Eos % (Auto) 0.7 % 10/22/22 05:43 Baso % (Auto) 0.2 % 10/22/22 05:43 Reticulocyte % (Auto) 3.1 % (0.5-2.0) H 10/11/22 07:39 Neut # (Auto) 4.38 K/uL (1.40-6.50) 10/22/22 05:43 Lymph # (Auto) 1.11 K/uL (1.20-3.40) L 10/22/22 05:43 [place] # (Auto) 0.54 K/uL (0.11-0.59) 10/22/22 05:43 Eos # (Auto) 0.04 K/uL (0.00-0.50) 10/22/22 05:43 Baso # (Auto) 0.01 K/uL (0.00-0.20) 10/22/22 05:43 Reticulocyte # 0.08 10^6/uL (0.02-0.10) 10/11/22 07:39 Immature Gran # (Auto) 0.03 K/uL (0.01-0.20) 10/22/22 05:43 RBC Morphology Unremarkable 10/12/22 04:40 Polychromasia 1+ 10/08/22 10:05 VBG pH 7.41 (7.36-7.41) 10/08/22 10:24 VBG pCO2 35 mmHg (38-50) L 10/08/22 10:24 VBG pO2 44 mmHg 10/08/22 10:24 VBG HCO3 22 mmol/L 10/08/22 10:24 VBG O2 Saturation 74.3 % 10/08/22 10:24 VBG Base Excess -1.9 mEq/L 10/08/22 10:24 Sodium 136 mmol/L (136-145) 10/22/22 05:43 Potassium 4.2 mmol/L (3.5-5.1) 10/22/22 05:43 Chloride 102 mmol/L (98-107) 10/22/22 05:43 Carbon Dioxide 27 mmol/L (21-32) 10/22/22 05:43 Anion Gap 7 (3-11) 10/22/22 05:43 BUN 14 mg/dl (6-23) 10/22/22 05:43 Creatinine 0.37 mg/dl (0.6-1.2) L 10/22/22 05:43 Est Cr Clr Drug Dosing 178.2 ml/min 10/22/22 05:43 Est GFR ( Amer) > 150.0 ml/min 10/22/22 05:43 Est GFR (Non-Af Amer) 147.5 ml/min 10/22/22 05:43 BUN/Creatinine Ratio 37.8 (10-20) H 10/22/22 05:43 Glucose 91 mg/dl (70-99(Fasting)) 10/22/22 05:43 POC Glucose 101 mg/dl (70-99) H 10/15/22 17:28 Lactate 1.6 mmol/L (0.4-2.0) 10/08/22 10:24 Calcium 9.7 mg/dl (8.6-10.3) 10/22/22 05:43 Phosphorus 4.7 mg/dl (2.5-4.9) 10/22/22 05:43 Magnesium 2.2 mg/dl (1.7-2.4) 10/22/22 05:43 Total Bilirubin 0.4 mg/dl (0.2-1.0) 10/11/22 07:21 Direct Bilirubin 0.1 mg/dl (0-0.2) 10/11/22 07:21 AST 13 U/L (13-39) 10/11/22 07:21 ALT 8 U/L (7-52) 10/11/22 07:21 Alkaline Phosphatase 61 U/L (34-104) 10/11/22 07:21 Ammonia 52.0 umol/L (18-72) 10/16/22 05:00 Total Creatine Kinase 100 U/L (26-192) 10/12/22 04:40 Troponin I High Sens 9.2 pg/ml (0-14) 10/08/22 10:05 C-Reactive Protein 22.79 mg/dl (0-0.5) H 10/13/22 06:18 B-Natriuretic Peptide 441 pg/ml (0-100) H 10/14/22 04:11 Total Protein 6.2 gm/dl (6.0-8.3) 10/11/22 07:21 Albumin 3.1 gm/dl (3.4-5.0) L 10/11/22 07:21 Procalcitonin 0.25 ng/ml (0-0.5) 10/10/22 04:37 TSH 2.198 uIu/ml (0.300-4.500) 10/08/22 14:25 Free T4 0.90 ng/dl (0.61-1.60) 10/08/22 14:25 Urine Color Dark Yellow 10/08/22 Unknown Urine Appearance Clear (Clear) 10/08/22 Unknown Urine pH 7.0 (4.5-7.5) 10/08/22 Unknown Ur Specific [place] 1.039 (1.000-1.030) H 10/08/22 Unknown Urine Protein 1+ (Negative) H 10/08/22 Unknown Urine Glucose (UA) Negative (Negative) 10/08/22 Unknown Urine Ketones Trace (Negative) H 10/08/22 Unknown Urine Blood Negative (Negative) 10/08/22 Unknown Urine Nitrite Negative (Negative) 10/08/22 Unknown Urine Bilirubin Negative (Negative) 10/08/22 Unknown Urine Urobilinogen Negative (Negative) 10/08/22 Unknown Ur Leukocyte Esterase Negative (Negative) 10/08/22 Unknown Urine WBC (Auto) 1-5 /hpf (0-5) 10/08/22 Unknown Urine RBC (Auto) 0-4 /hpf (0-4) 10/08/22 Unknown U Hyaline Cast (Auto) 1-5 /lpf (0-5) 10/08/22 Unknown U Epithel Cells (Auto) >30 /lpf (0-5) H 10/08/22 Unknown Urine Bacteria (Auto) Negative (Negative) 10/08/22 Unknown Ur Renal Epithelial Cell Not Reportable 10/08/22 Unknown Urine Mucus Present (None Prsent) A 10/08/22 Unknown Nasal Screen MRSA (PCR) Negative (Negative) 10/08/22 15:25 Valproic Acid 61 mcg/ml (50-100) 10/15/22 04:29 Rheumatoid Factor <14 IU/mL (<14) 10/12/22 04:40 MANDO Screen NEGATIVE (NEGATIVE) 10/12/22 04:40 Adenovirus (PCR) Not Detected (NotDetected) 10/08/22 15:25 B. pertussis DNA (PCR) Not Detected (NotDetected) 10/08/22 15:25 B.parapertussis DNA PCR Not Detected (NotDetected) 10/08/22 15:25 C. pneumoniae DNA (PCR) Not Detected (NotDetected) 10/08/22 15:25 Coronavirus OC43 (PCR) Not Detected (NotDetected) 10/08/22 15:25 Coronavirus HKU1 (PCR) Not Detected (NotDetected) 10/08/22 15:25 Coronavirus 229E (PCR) Not Detected (NotDetected) 10/08/22 15:25 SARS-CoV-2 (PCR) Not Detected (NotDetected) 10/08/22 15:25 Coronavirus NL63 (PCR) Not Detected (NotDetected) 10/08/22 15:25 Human Metapneumovir PCR Not Detected (NotDetected) 10/08/22 15:25 Influenza Type A (PCR) Not Detected (NotDetected) 10/08/22 15:25 Influenza Type B (PCR) Not Detected (NotDetected) 10/08/22 15:25 Urine Legionella Ag SEE NOTE 10/11/22 11:00 Mycoplasma pneumon IgG <=0.90 (<=0.90) 10/12/22 04:40 Mycoplasma pneumon IgM 580 U/mL (<770) 10/12/22 04:40 M. pneumoniae (PCR) Not Detected (NotDetected) 10/08/22 15:25 Parainfluenza 1 (PCR) Not Detected (NotDetected) 10/08/22 15:25 Parainfluenza 2 (PCR) Not Detected (NotDetected) 10/08/22 15:25 Parainfluenza 3 (PCR) Not Detected (NotDetected) 10/08/22 15:25 Parainfluenza 4 (PCR) Not Detected (NotDetected) 10/08/22 15:25 RSV (PCR) Not Detected (NotDetected) 10/08/22 15:25 Resp Virus Cult Rapid SEE NOTE 10/08/22 14:40 Entero/Rhino (PCR) Not Detected (NotDetected) 10/08/22 15:25 Viral Specimen Source BW LLL 10/08/22 14:40 Blood Type B Positive 10/12/22 07:30 Blood Type Recheck B Positive 10/12/22 04:40 Antibody Screen NEGATIVE 10/12/22 07:30 Crossmatch See Detail 10/12/22 07:30 Impressions Chest/Abdomen X-ray 10/08/22 10:00 CHEST AND ABDOMEN 2 VIEWS HISTORY: Abdominal pain.. COMPARISON: Chest CTA 09/26/2022.. FINDINGS: There are low lung volumes. No pneumothorax. Tracheostomy tube remains in good position. The cardiac silhouette remains enlarged. There are persistent bibasilar densities, left greater than right. There is mild perihilar interstitial/vascular thickening suggestive of mild congestive change. No pneumoperitoneum. No pneumatosis. A gastrostomy tube is seen within the left upper quadrant. No dilated loops of bowel to suggest an obstruction. No renal or ureteral calculi. Moderate well-formed stool seen within the distal colon/ rectum. IMPRESSION: 1. Cardiomegaly with mild pulmonary vascular congestion. This has progressed in the interval. 2. Bibasilar densities persist. This could represent atelectasis or pneumonia. 3. No evidence for a bowel obstruction. 4. Moderate well-formed stool seen within the distal colon/rectum. 4. A tracheostomy tube is in good position. ACT 112: Negative or not required by law. Electronically signed by: Edmund Dorman M.D. 10/08/2022 11:[address] 10/09/22 09:39 CT chest diagnostic w con CLINICAL HISTORY: hypoxia TECHNIQUE: Multidetector row helical CT of the chest was performed with intravenous contrast. Coronal and sagittal reformations were obtained. Automated dose lowering techniques and/or adjustment according to patient size were utilized for this exam. CT DOSE: 542.36 mGy.cm Comparison: Comparison is made to CTA chest 09/26/2022 FINDINGS: Lungs and pleura: Tracheostomy tube is seen. Multifocal consolidative and groundglass nodules are seen. Small bilateral pleural effusions are seen with underlying atelectasis. Heart and pericardium: Pericardial effusion is again seen. Vessels: Unremarkable. Mediastinum and whitney: Multiple mediastinal lymph nodes are seen measuring up to 14 mm in the left upper paratracheal station. Chest wall and lower neck: Unremarkable. Abdomen: Unremarkable. Bones: Unremarkable. IMPRESSION: 1. Worsening multifocal consolidative and groundglass nodules compatible with pneumonia. Mediastinal lymphadenopathy is seen. 2. Small bilateral pleural effusions with associated atelectasis. 3. Moderate pericardial effusion is unchanged. ACT 112: Negative or not required by law. Electronically signed by: Raudel Rich M.D. 10/09/2022 3:21 PM Abdomen/Pelvis CT 10/11/22 06:50 CT soft tissue neck w con, CT angio chest PE protocol, CT abd pelvis IV con only HISTORY: 27 years-old Female eval for infective source acute sepsis COMPARISON: Chest CT 10/09/2022, CT soft tissue neck 09/26/2022 TECHNIQUE: Multiple axial CT images of the soft tissues of the neck with CT abdomen and pelvis and CTA of the chest. 115 mL Optiray 350 was utilized. 3-D coronal and sagittal maps were obtained and sent for review. All measurements were obtained according to NASCET criteria. A dose lowering technique was used consistent with the principals of DEEPALI. FINDINGS: SOFT TISSUE NECK: Persistent dilation of the posterior horns of the lateral ventricles. The study is motion degraded. A tracheostomy cannula is in place which appears to be in satisfactory positioning with tracheal secretions. Nonspecific paratracheal and upper mediastinal lymphadenopathy with lymph nodes measuring up to 1.3 x 1.3 cm subcentimeter supraclavicular lymph nodes. The airway appears patent. No parapharyngeal inflammation or fluid collections. With the Unremarkable vascular fractures. Polypoid mucosal thickening of the paranasal sinuses. No acute fracture identified. Levoscoliosis of the cervical spine may be positional. Unremarkable thyroid. CTA CHEST: The heart is normal in size. Persistent moderate-sized pericardial effusion measuring up to 1.2 cm posteriorly, previously 1.6 cm. 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 No thoracic aortic aneurysm or dissection. No pulmonary emboli identified. CT CHEST: Unremarkable thyroid. Unchanged appearance of the mediastinal and hilar lymphadenopathy with lymph nodes measuring up to approximately 10 mm. Vgooe-hc-mhncpgxs sized pleural effusions, stable on the left and mildly increased in size on the right. Dependent bibasilar prominent atelectasis. Interlobular septal thickening with additional interposed patchy multilobar distribution of bilateral groundglass opacities which have mildly progressed. Partial collapse of the lower lobes, left greater than right. Mild chronic endobronchial secretions. No pneumothorax. Unremarkable soft tissues. No acute fracture identified. CT ABDOMEN AND PELVIS: No free air. The spleen is upper limits of normal in size. Unremarkable pancreas, adrenal glands and liver. Distended gallbladder with nonspecific wall thickening and pericholecystic edema. Patent portal vein. Unremarkable kidneys. Urinary bladder wall thickening with partial distention. Aorta and IVC are unremarkable. Gastrostomy tube is in place. Rectal catheter. No bowel obstruction or bowel wall thickening. The visualized appendix is noninflamed. Trace ascites. Nonspecific subcutaneous edema within the left thigh. No acute fracture. IMPRESSION: 1. Cardiomegaly with pericardial effusion, mildly decreased in size from the 10/09/2022 exam. 2. Small to moderate pleural effusions with bibasilar atelectasis and partial collapse of the lower lobes. 3. Progressive patchy bilateral airspace opacities suggestive of worsening multifocal pneumonia. 4. Mild lymphadenopathy of the neck and chest as above is likely reactive. 5. Distended gallbladder with wall thickening and mild pericholecystic fluid. Correlation with ultrasound recommended. 6. No pulmonary emboli. 7. Normal appendix. 8. Additional findings as above. ACT 112: Negative or not required by law. The above report was generated using voice recognition software. It may contain grammatical, syntax or spelling errors. Electronically signed by: Ervin Townsend M.D. 10/11/2022 12:10 PM Chest CTA 10/11/22 06:50 CT soft tissue neck w con, CT angio chest PE protocol, CT abd pelvis IV con only HISTORY: 27 years-old Female eval for infective source acute sepsis COMPARISON: Chest CT 10/09/2022, CT soft tissue neck 09/26/2022 TECHNIQUE: Multiple axial CT images of the soft tissues of the neck with CT abdomen and pelvis and CTA of the chest. 115 mL Optiray 350 was utilized. 3-D coronal and sagittal maps were obtained and sent for review. All measurements were obtained according to NASCET criteria. A dose lowering technique was used consistent with the principals of ALARA. FINDINGS: SOFT TISSUE NECK: Persistent dilation of the posterior horns of the lateral ventricles. The study is motion degraded. A tracheostomy cannula is in place which appears to be in satisfactory positioning with tracheal secretions. Nonspecific paratracheal and upper mediastinal lymphadenopathy with lymph nodes measuring up to 1.3 x 1.3 cm subcentimeter supraclavicular lymph nodes. The airway appears patent. No parapharyngeal inflammation or fluid collections. With the Unremarkable vascular fractures. Polypoid mucosal thickening of the paranasal sinuses. No acute fracture identified. Levoscoliosis of the cervical spine may be positional. Unremarkable thyroid. CTA CHEST: The heart is normal in size. Persistent moderate-sized pericardial effusion measuring up to 1.2 cm posteriorly, previously 1.6 cm. 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 No thoracic aortic aneurysm or dissection. No pulmonary emboli identified. CT CHEST: Unremarkable thyroid. Unchanged appearance of the mediastinal and hilar lymphadenopathy with lymph nodes measuring up to approximately 10 mm. Mjysz-xd-ubpedhnj sized pleural effusions, stable on the left and mildly increased in size on the right. Dependent bibasilar prominent atelectasis. Interlobular septal thickening with additional interposed patchy multilobar distribution of bilateral groundglass opacities which have mildly progressed. Partial collapse of the lower lobes, left greater than right. Mild chronic endobronchial secretions. No pneumothorax. Unremarkable soft tissues. No acute fracture identified. CT ABDOMEN AND PELVIS: No free air. The spleen is upper limits of normal in size. Unremarkable pancreas, adrenal glands and liver. Distended gallbladder with nonspecific wall thickening and pericholecystic edema. Patent portal vein. Unremarkable kidneys. Urinary bladder wall thickening with partial distention. Aorta and IVC are unremarkable. Gastrostomy tube is in place. Rectal catheter. No bowel obstruction or bowel wall thickening. The visualized appendix is noninflamed. Trace ascites. Nonspecific subcutaneous edema within the left thigh. No acute fracture. IMPRESSION: 1. Cardiomegaly with pericardial effusion, mildly decreased in size from the 10/09/2022 exam. 2. Small to moderate pleural effusions with bibasilar atelectasis and partial collapse of the lower lobes. 3. Progressive patchy bilateral airspace opacities suggestive of worsening multifocal pneumonia. 4. Mild lymphadenopathy of the neck and chest as above is likely reactive. 5. Distended gallbladder with wall thickening and mild pericholecystic fluid. Correlation with ultrasound recommended. 6. No pulmonary emboli. 7. Normal appendix. 8. Additional findings as above. ACT 112: Negative or not required by law. The above report was generated using voice recognition software. It may contain grammatical, syntax or spelling errors. Electronically signed by: Ervin Townsend M.D. 10/11/2022 12:10 PM Soft Tissue Neck CT 10/11/22 06:50 CT soft tissue neck w con, CT angio chest PE protocol, CT abd pelvis IV con only HISTORY: 27 years-old Female eval for infective source acute sepsis COMPARISON: Chest CT 10/09/2022, CT soft tissue neck 09/26/2022 TECHNIQUE: Multiple axial CT images of the soft tissues of the neck with CT abdomen and pelvis and CTA of the chest. 115 mL Optiray 350 was utilized. 3-D coronal and sagittal maps were obtained and sent for review. All measurements were obtained according to NASCET criteria. A dose lowering technique was used consistent with the principals of DEEPALI. FINDINGS: SOFT TISSUE NECK: Persistent dilation of the posterior horns of the lateral ventricles. The study is motion degraded. A tracheostomy cannula is in place which appears to be in satisfactory positioning with tracheal secretions. Nonspecific paratracheal and upper mediastinal lymphadenopathy with lymph nodes measuring up to 1.3 x 1.3 cm subcentimeter supraclavicular lymph nodes. The airway appears patent. No parapharyngeal inflammation or fluid collections. With the Unremarkable vascular fractures. Polypoid mucosal thickening of the paranasal sinuses. No acute fracture identified. Levoscoliosis of the cervical spine may be positional. Unremarkable thyroid. CTA CHEST: The heart is normal in size. Persistent moderate-sized pericardial effusion measuring up to 1.2 cm posteriorly, previously 1.6 cm. 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 No thoracic aortic aneurysm or d issection. No pulmonary emboli identified. CT CHEST: Unremarkable thyroid. Unchanged appearance of the mediastinal and hilar lymphadenopathy with lymph nodes measuring up to approximately 10 mm. Sma eg-sw-yomsdisg sized pleural effusions, stable on the left and mildly increased in size on the right. Dependent bibasilar prominent atelectasis. Interlobular septal thickening with additional interposed patchy multilobar distribution of bilateral groundglass opacities which have mildly progressed. Partial collapse of the lower lobes, left greater than right. Mild chronic endobronchial secretions. No pneumothorax. Unremarkable soft tissues. No acute fracture identified. CT ABDOMEN AND PELVIS: No free air. The spleen is upper limits of normal in size. Unremarkable pancreas, adrenal glands and liver. Distended gallbladder with nonspecific wall thickening and pericholecystic edema. Patent portal vein. Unremarkable kidneys. Urinary bladder wall thickening with partial distention. Aorta and IVC are unremarkable. Gastrostomy tube is in place. Rectal catheter. No bowel obstruction or bowel wall thickening. The visualized appendix is noninflamed. Trace ascites. Nonspecific subcutaneous edema within the left thigh. No acute fracture. IMPRESSION: 1. Cardiomegaly with pericardial effusion, mildly decreased in size from the 10/09/2022 exam. 2. Small to moderate pleural effusions with bibasilar atelectasis and partial collapse of the lower lobes. 3. Progressive patchy bilateral airspace opacities suggestive of worsening multifocal pneumonia. 4. Mild lymphadenopathy of the neck and chest as above is likely reactive. 5. Distended gallbladder with wall thickening and mild pericholecystic fluid. Correlation with ultrasound recommended. 6. No pulmonary emboli. 7. Normal appendix. 8. Additional findings as above. ACT 112: Negative or not required by law. The above report was generated using voice recognition software. It may contain grammatical, syntax or spelling errors. Electronically signed by: Ervin Townsend M.D. 10/11/2022 12:[address] 10/11/22 07:13 CT facial bones w con HISTORY: 27 years-old Female rule out impacted wisdom teeth/sinuses acute sepsis COMPARISON: CT soft tissue neck of same day TECHNIQUE: Multiple axial CT images of the maxillofacial bones were obtained following the intravenous administration of 115 mL Optiray 350. A dose lowering technique was used consistent with the principals of DEEPALI. FINDINGS: Partially imaged dilation of the lateral ventricles. Unremarkable appearance of the soft tissues. No fluid collections or significant inflammatory changes. Unremarkable appearance of the parotid, submandibular and thyroid glands. Subcentimeter submandibular and cervical chain lymph nodes measure up to 7 mm, likely reactive. Unremarkable appearance of the vasculature of the neck with dominant left vertebral artery. Mastoid air cells and middle ear cavities are clear. Minimal polypoid mucosal thickening in the left maxillary sinus. No osseous erosive changes. Unerupted bilateral second and third maxillary molars with unerupted bilateral mandibular third molars. No periapical cysts identified. IMPRESSION: 1. No acute inflammatory changes or fluid collections identified. 2. Subcentimeter cervical chain lymphadenopathy is likely benign. 3. Partially imaged dilation of the lateral ventricles, possibly on a chronic basis. Correlate with prior imaging. ACT 112: Negative or not required by law. The above report was generated using voice recognition software. It may contain grammatical, syntax or spelling errors. Electronically signed by: Ervin Townsend M.D. 10/11/2022 12:10 PM Liver Ultrasound 10/11/22 13:48 ABDOMINAL ULTRASOUND, RIGHT UPPER QUADRANT HISTORY: Acute right upper quadrant abdominal pain r/o cholecytitis. COMPARISON: CT abdomen and pelvis 10/11/2022 FINDINGS: Pancreas: The pancreas is mostly obscured by bowel gas. Liver: 16.6 cm in length. Trace perihepatic ascites. Gallbladder: The bladder is distended measuring up to 9 cm demonstrating mild layering sludge without shadowing cholelithiasis identified. Borderline gallbladder wall thickening measuring 3 mm. Patient experienced positive sonographic Watson sign. CBD: 0.3 cm. Right kidney: No hydronephrosis. IMPRESSION: 1. Distended gallbladder with layering sludge, borderline gallbladder wall thickening and pericholecystic edema without shadowing cholelithiasis. Finds are equivocal for acute cholecystitis and correlation with nuclear medicine hepatobiliary scan recommended. 2. No biliary ductal dilation. ACT 112: Negative or not required by law. Electronically signed by: Ervin Townsend M.D. 10/11/2022 2:40 PM Hepatobiliary Scan Nuclear Medicine 10/13/22 11:30 NM hepatobiliary EF CLINICAL HISTORY: r/o acute cholecystitis TECHNIQUE: Following the intravenous injection of 5 mCi of Tc-99m labeled Technetium 99m mebrofenin, multiple images of the upper abdomen were obtained in the anterior projection with uptake measurements of the gallbladder obtained. Once the gallbladder and small bowel were visualized, the patient was intravenously infused over 30 minutes with 0.02 mcg/kg of Sincalide (CCK), and imaging and uptakes were again obtained. Comparison: Comparison is made to right upper quadrant ultrasound 10/11/2022 FINDINGS: Sequential images demonstrate normal uptake in the liver, common bile duct, gallbladder, and small bowel. No defects in uptake are identified. Subsequent imaging after the administration of sincalide demonstrates prompt elimination of the radiotracer from the gallbladder. The calculated gallbladder ejection fraction based on uptake measurements is 39%. However, further delayed images up to 44 minutes demonstrated lesser degree of excretion. IMPRESSION: Normal uptake of tracer, no acute cholecystitis. Excretion of contrast is stable to mildly delayed, equivocal for chronic cholecystitis. Reference: Normal gallbladder ejection fraction is greater than 33%. ACT 112: Negative or not required by law. Electronically signed by: Raudel Rich M.D. 10/13/2022 5:58 PM Chest X-Ray 10/22/22 07:00 XR chest 1V portable CLINICAL HISTORY: Resp failure TECHNIQUE: Single frontal radiograph of the chest was obtained. Comparison: Comparison is made to chest radiograph 10/19/2022 FINDINGS: Lines and tubes are stable. The cardiomediastinal silhouette is normal. Left retrocardiac opacity is seen. No evidence of pleural effusion or pneumothorax. IMPRESSION: Left retrocardiac opacity. which may represent atelectasis, pneumonia, and/or aspiration. ACT 112: Negative or not required by law. Electronically signed by: Raudel Rich M.D. 10/22/2022 6:58 AM Medications Administered Home Medications Medication Instructions Recorded Confirmed Last Taken food supplemt, lactose-reduced 1.5 ea PO QID@07,1130,15,19 07/28/18 10/08/22 05/13/21 0.04 gram-1 kcal/mL oral liquid (Boost) water 120 ea PO QID@07,1130,15,19 07/28/18 10/08/22 05/13/21 acetaminophen 160 mg/5 mL oral 640 mg (20 mL) PO Q6H PRN fever or 12/21/18 10/08/22 Unknown liquid pain #473 mL ibuprofen 100 mg/5 mL oral See Rx Instructions PO Q6H PRN 12/21/18 10/08/22 Unknown suspension fever or pain #473 mL disposable gloves #100 ea 05/12/19 03/21/22 Unknown incontinence pad, liner, disp #20 ea 05/12/19 03/21/22 Unknown Miscellaneous Medical Supply #1 ea 02/22/20 03/21/22 Unknown (Hospital Bed) nut.tx.,elemental,[id number]-[id number]-[id number] 1 ea feeding tube DAILY@1100 08/04/20 10/08/22 05/12/21 11:00 14 gram-230 kcal/45 mL liquid pkt (Xtracal Plus) nebulizers #1 ea 11/01/20 03/21/22 Unknown miscellaneous medical supply 1 ea miscellaneous ONCE #1 ea 12/06/20 03/21/22 Unknown miscellaneous medical supply 1 ea miscellaneous ONCE #1 ea 12/06/20 03/21/22 Unknown incontinence pad, liner, disp #75 ea 01/03/21 03/21/22 Unknown miscellaneous medical supply 1 ea miscellaneous ONCE #180 ea 01/03/21 03/21/22 Unknown miscellaneous medical supply #30 ea 01/31/21 03/21/22 Unknown (Cooter Tracheostomy Care Tray) cetirizine 10 mg tablet 10 mg feeding tube QAM #90 tabs 11/29/21 10/08/22 Unknown polyethylene glycol 3350 17 See Rx Instructions .Route 11/29/21 10/08/22 Unknown gram/dose oral powder .COMPLEX #1,530 grams trazodone 50 mg tablet 50 mg feeding tube HS #90 tabs 11/29/21 10/08/22 Unknown Miscellaneous Pulmonary Supply #1 ea 12/23/21 03/21/22 Unknown clonazepam 0.5 mg disintegrating 0.5 mg feeding tube DIRECTED 01/06/22 10/08/22 Unknown tablet PRN PROLONGED SEIZURES #30 tabs diaper,brief,adult,disposable (Day #180 ea 03/25/22 Unknown and Night Brief, Large) albuterol sulfate 2.5 mg/3 mL 2.5 mg (3 mL) inhalation Q4H PRN 04/30/22 10/08/22 Unknown (0.083 %) solution for nebulization Wheezing/ shortness of breath #540 mL acetylcysteine 200 mg/mL (20 %) 3 ml inhalation BID #100 mL 06/12/22 10/08/22 Unknown solution baclofen 20 mg tablet 20 mg feeding tube TID 30 days #90 08/13/22 10/08/22 Unknown tabs fluoxetine 20 mg tablet 20 mg feeding tube QDL #30 tabs 08/13/22 10/08/22 Unknown zonisamide 100 mg capsule 200 mg feeding tube .COMPLEX 30 08/13/22 10/08/22 Unknown days #90 caps budesonide 0.5 mg/2 mL suspension 0.5 mg (2 mL) inhalation BID #120 08/18/22 10/08/22 Unknown for nebulization mL sodium chloride 7 % for 4 ml inhalation BID PRN Other 09/26/22 10/08/22 Unknown nebulization tobramycin with nebulizer 300 mg/5 300 mg inhalation DIRECTED 09/26/22 10/08/22 Unknown mL solution for nebulization albuterol sulfate 2.5 mg/3 mL See Rx Instructions .Route .COMPLEX 10/08/22 10/08/22 Unknown (0.083 %) solution for nebulization valproic acid (as sodium salt) 250 550 mg feeding tube TID 10/08/22 10/08/22 Unknown mg/5 mL oral solution Coding Level of Care Code 08128 CRITICAL CARE 1ST 30-74M Diagnoses Sepsis A41.9 Sepsis acute organ dysfunction status: unspecified Sepsis type: sepsis due to unspecified organism Acute respiratory failure with hypoxia J96.01 Sepsis due to pneumonia J18.9; A41.9 Bronchiectasis J47.9 Bilateral pneumonia J18.9 Lung location: lower lobe of lung Pneumonia type: due to unspecified organism 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
== END 2022-10-22 11:30 | disposition home health service (06) | DRG 870 ==
LOC: ED 08:51 → 1E 12:40 → SUATTDRO 12:40 → 1E 13:09

== ENCOUNTER 2023-11-05 08:10 | Inpatient (IN) ==
[2023-11-05 09:10] LABS: Base Excess VBG -3.1 mEq/L; HCO3 VBG 22 mmol/L; Oxygen Saturation VBG 66.7 %; PCO2 VBG 39 mmHg (38-50); PO2 VBG 38 mmHg; pH VBG 7.36 (7.36-7.41)
--- NOTE | 2023-11-05 09:18 | XRay Report ---
XR chest 1V portable CLINICAL HISTORY: Sepsis. COMPARISON STUDY: Chest radiograph November 21, 2022. Chest CT October 11, 2022. FINDINGS: Left subclavian [id number]-[id number] and tracheostomy tube remain in place. There is no pneumothor ax. Possible small left pleural effusion. There is no right pleural effusion. Cardiomediastinal silho uette is stable. Left basilar opacity with volume loss is noted. There is no evidence for pulmonary e silvana. IMPRESSION: 1. Left basilar airspace opacity with volume loss. This could reflect pneumonia or atelectasis. Radio graphic follow-up to ensure resolution is recommended. 2. Small left pleural effusion. ACT 112: Negative or not required by law. Electronically signed by: Otto Pearce M.D. 11/05/2023 9:16 AM
[2023-11-05 09:22] LABS: Basophils # (auto) 0.01 K/uL (0.00-0.20); Basophils % (auto) 0.1 %; Hematocrit (blood only) 36.6 % (37.0-47.0); Hemoglobin 12.7 g/dl (12.0-16.0); Immature Granulocytes # (auto) 0.05 K/uL (0.01-0.20); Immature Granulocytes % (auto) 0.4 %; Lymphocytes % (auto) 1.7 %; Mean Corpuscular Hemoglobin 34.5 pg (25.0-34.0); Mean Corpuscular Hgb Conc 34.7 g/dL (32.0-36.0); Mean Corpuscular Volume 99.5 fL (80.0-100.0); Mean Platelet Volume 9.4 fL (9.4-12.4); Monocytes # (auto) 1.22 K/uL (0.11-0.59); Monocytes % (auto) 10.4 %; Neutrophils # (auto) 10.27 K/uL (1.40-6.50); Neutrophils % (auto) 87.4 %; Platelet Count 94 K/uL (130-400); RDW Standard Deviation 43.7 fL (36.4-46.3); Red Blood Count 3.68 M/uL (4.20-5.40); White Blood Count 11.75 K/ul (4.8-10.8)
--- NOTE | 2023-11-05 09:27 | Emergency Department Note ---
Impression & Plan Acute and chronic respiratory failure with hypoxia, Pneumonia ED Provider Note NAME: JOHN GARRIDO AGE: 28 SEX: F : 1995 ARRIVES VIA: Walk-In INFORMANT: The patient's mother ED PROVIDER(S): Chad Arnold DO CHIEF COMPLAINT: Difficulty breathing HPI: The patient is a 28-year-old female who has a history of cerebral palsy who presented to the emergency department because of bradycardia. Patient has a history of sepsis because of pneumonia. She also has a tracheostomy. The family's been noticing increased tracheal secretions which have been thick and yellow. The patient has a history of Pseudomonas in the past. The patient is been compliant with her outpatient medication regimen including her albuterol. The child's had no fever. The patient's trach was changed yesterday by the family. They had no problem with it. ROS: See above HPI for pertinent positives & negatives. A total of 10 systems reviewed and were otherwise negative. PAST MEDICAL HISTORY: See Below PAST SURGICAL HISTORY: See Below FAMILY HISTORY: See Below SOCIAL HISTORY: See Below HOME MEDICATIONS: See Below ALLERGIES: See Below VITALS: See Below PHYSICAL EXAMINATION: GENERAL: The patient is awake. The patient responds to verbal commands. EYES: The conjunctivae are clear. The pupils are round and reactive. EARS, NOSE, MOUTH AND THROAT: The nose is without any evidence of any deformity. NECK: The neck is nontender and supple. Tracheostomy is in place. There is no crepitus surrounding the site or erythema. RESPIRATORY: Shallow respirations were noted. There is diminished breath sounds throughout with wheezing in all gong. CARDIOVASCULAR: Tachycardic and irregular heart sounds were noted to auscultation. There is no definite murmur. GASTROINTESTINAL: The abdomen is soft. Abdomen is nontender. MUSCULOSKELETAL/EXTREMITIES: There is no evidence of gross deformity full range of motion is noted in the hips and shoulders. SKIN: Skin was cool and dry. There is no significant pedal edema. NEUROLOGIC: The patient is at her neurologic baseline according to her family. MEDICAL DECISION MAKING: The patient is a 28-year-old female who presented to the emergency department with difficulty breathing. The patient's symptoms began rather acutely over the course of the last 24 to 48 hours. The patient does have a history of Pseudomonas infection in the airway. The patient's trachea appears to be appropriately positioned. Lung sounds would reflect some degree of bronchospasm. The patient was treated with IV fluids as well as IV antibiotics. The patient was also treated with bronchodilator therapy. On reevaluation the patient appeared to be somewhat improved. I discussed the patient's laboratory and radiographic studies with the mother. I also [facility] the [facility] have agreed to evaluate the patient in the emergency department for further management and disposition. Triage Nursing notes reviewed. Prior medical records reviewed Vital Signs: reviewed and remarkable for initial hypotension and tachycardia. Differential diagnosis: Reactive airway disease, pneumonia, pneumothorax, COPD, CHF, infections, cardiac ischemia, pulmonary embolism, musculoskeletal, gastrointestinal, as well as other pathologies. ER treatment provided: See below Diagnostics interpreted by me: ECG: EKG was obtained in the emergency department. My interpretation is sinus tachycardia at 111 bpm. There were no PVCs noted. Nonspecific T wave abnormalities were noted. This was compared to a tracing from November 16, 2022. No significant changes were noted. Cardiac Monitoring: An order was placed for continuous cardiac monitoring. The monitor shows a rate of 103 bpm with sinus tachycardia. Laboratory studies: As stated above and show below. Imaging studies: See below. Radiographic imaging was reviewed by myself Consultation(s): I discussed this case with Dr. Keller who is on-call for the [facility] ED COURSE: Procedures: none Critical Care: I have personally spent greater than 35 minutes of critical care time in the direct management of this patient. This includes bedside care, interpretation of diagnostic studies, and testing, discussion with consultants, patient, and family members, and other required patient management activities. This 35 minutes is in excess of all separately billable procedures. Past Med/Surg History Problem List (Updated 11/05/23 @ 15:41 by Chad Arnold DO) Enterovirus infection Hypotension, chronic Thrombocytopenia Tracheostomy status S/P percutaneous endoscopic gastrostomy (PEG) tube placement Chronic respiratory failure with hypoxia Left lower lobe pneumonia Port-A-Cath in place (11/20/22) Insertion of Mediport, Left Subclavian (Not Applicable) - Ankit Tavera DO Anemia (Chronic) Cerebral palsy (Acute) Acute and chronic respiratory failure with hypoxia (Acute) Pneumonia (Acute) Cholecystitis without calculus Sepsis (Acute) Acute respiratory failure with hypoxia Sepsis due to pneumonia Bronchiectasis Bilateral pneumonia (Acute) Muscle spasticity 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 plugging of bronchi 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) Insomnia (Chronic) Depression with anxiety (Chronic) Allergic rhinitis (Chronic) Seizure disorder (Chronic) Chronic respiratory failure with hypoxia and hypercapnia (Chronic) Medical History Transaminitis Hypotension, chronic Thrombocytopenia Multiple tracheobronchial mucus plugs Acute on chronic respiratory failure with hypoxemia Abnormal LFTs Thrombocytopenia Sepsis Surgical History History of tracheostomy #6 [place] 09/10/2020 S/P percutaneous endoscopic gastrostomy (PEG) tube placement Family History Brother Asthma Other Coronary heart disease Family history non-contributory Hypertension Social History Smoking Status: Never smoker Second Hand Exposure: No; Do You Dip or Chew Tobacco: No; Hx Alcohol Use: No Hx Substance Use: No Preferred Language: Upper Sorbian Communication Ability: Impaired Communication Ability Comment: Pt is non-verbal at baseline Production Planning 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 Required: No Beliefs That Will Affect Care: None marital status: Single Current Living Situation: Family Current Living Situation Comment: parent Feels Safe at Home: Yes Assistive Devices: Hospital Bed, Lift Chair and Other Allergies Allergies Allergy/AdvReac Type Severity Reaction Status Date / Time No Known Allergies Allergy Verified 02/10/23 09:06 Home Meds Home Medications Medication Instructions Recorded Confirmed food supplemt, lactose-reduced 1.5 ea PO QID@07,1130,,07/28/18 11/05/23 0.04 gram-1 kcal/mL oral liquid (Boost) water 120 ea PO QID@07,1130,,07/28/18 11/05/23 nut.tx.,elemental,kiwlbzo-bzyp-naj 1 ea feeding tube DAILY@1100 08/04/20 11/05/23 14 gram-230 kcal/45 mL liquid pkt (Xtracal Plus) albuterol sulfate 2.5 mg/3 mL 2.5 mg continuous nebulization TID 10/08/22 11/05/23 (0.083 %) solution for nebulization polyethylene glycol 3350 17 17 g feeding tube DAILY 11/05/23 11/05/23 gram/dose oral powder zonisamide 100 mg capsule 100 mg HS 11/05/23 11/05/23 zonisamide 100 mg capsule 200 mg feeding tube QAM 11/05/23 11/05/23 Previous Rx's Medication Instructions Recorded acetaminophen 160 mg/5 mL oral 640 mg (20 mL) PO Q6H PRN fever or 12/21/18 liquid pain #473 mL ibuprofen 100 mg/5 mL oral See Rx Instructions PO Q6H PRN 12/21/18 suspension fever or pain #473 mL Miscellaneous Medical Supply #1 ea 02/22/20 (Hospital Bed) nebulizers #1 ea 11/01/20 miscellaneous medical supply 1 ea miscellaneous ONCE #1 ea 12/06/20 miscellaneous medical supply 1 ea miscellaneous ONCE #1 ea 12/06/20 miscellaneous medical supply 1 ea miscellaneous ONCE #180 ea 01/03/21 miscellaneous medical supply #30 ea 01/31/21 ([place] Tracheostomy Care Tray) Miscellaneous Pulmonary Supply #1 ea 12/23/21 diaper,brief,adult,disposable (Day #180 ea 11/04/22 and Night Brief, Large) disposable gloves #100 ea 11/04/22 incontinence pad, liner, disp #20 ea 11/04/22 incontinence pad, liner, disp #75 ea 11/04/22 cetirizine 10 mg tablet 10 mg feeding tube QAM #90 tabs 12/05/22 Repair or Replacement of Hospital #1 ea 12/26/22 Bed nebulizer accessories #1 ea 02/04/23 nitrofurantoin macrocrystal 50 mg 50 mg feeding tube DAILY #90 caps 02/12/23 capsule albuterol sulfate 2.5 mg/3 mL 2.5 mg (3 mL) inhalation Q4H PRN 06/01/23 (0.083 %) solution for nebulization Wheezing/ shortness of breath #540 mL budesonide 0.5 mg/2 mL suspension 0.5 mg (2 mL) inhalation BID #120 07/09/23 for nebulization mL lidocaine-prilocaine 2.5 %-2.5 % See Rx Instructions .Route 08/12/23 topical cream .COMPLEX #30 grams baclofen 20 mg tablet 20 mg feeding tube TID 30 days #90 08/20/23 tabs clonazepam 0.5 mg disintegrating 0.5 mg feeding tube DIRECTED 08/20/23 tablet PRN PROLONGED SEIZURES #30 tabs fluoxetine 20 mg tablet 20 mg feeding tube QDL #30 tabs 08/20/23 valproic acid (as sodium salt) 250 550 mg (11 mL) feeding tube TID 08/20/23 mg/5 mL oral solution #990 mL sodium chloride 7 % for 4 ml inhalation BID PRN Other #240 10/19/23 nebulization mL trazodone 50 mg tablet 50 mg feeding tube HS #90 tabs 10/28/23 Results & Data (ED) Vital Signs Vital Signs - 24 hr 11/05/23 08:23 11/05/23 08:30 11/05/23 08:33 Temperature 36.4 C L Temperature Source Temporal Artery Scan Pulse Rate 132 H Pulse Rate [Apical] 120 H Pulse Rate from SpO2 Sensor Pulse Rhythm Pulse Rhythm [Apical] Regular Pulse Strength [Apical] Normal Respiratory Rate 38 H 38 H Respiratory Effort / Characteristics Spontaneous Accessory Muscle Use Short of Breath Non-Labored Spontaneous Respiratory Depth Shallow Normal Respiratory Pattern Rapid/Shallow Tachypnea Regular Blood Pressure Blood Pressure [Right Arm] 87/60 L Blood Pressure Mean Blood Pressure Mean [Right Arm] 69 Blood Pressure Position [Right Arm] Sitting Pulse Oximetry 93 89 L Oxygen Delivery Method Room Air Trach Collar T-Piece Oxygen Flow Rate Fraction of Inspired Oxygen 35 Sepsis Recent Fever Within 48 Hours No Sepsis New/Unexplained Change in Mental Status No Sepsis Action Taken by Nursing No Action Required 11/05/23 08:36 11/05/23 08:36 11/05/23 08:51 Temperature Temperature Source Pulse Rate 122 H 118 H 119 H Pulse Rate [Apical] Pulse Rate from SpO2 Sensor 118 H 118 H Pulse Rhythm Pulse Rhythm [Apical] Pulse Strength [Apical] Respiratory Rate 38 H 36 H Respiratory Effort / Characteristics Respiratory Depth Respiratory Pattern Blood Pressure 91/57 L 103/74 Blood Pressure [Right Arm] Blood Pressure Mean 68 83 Blood Pressure Mean [Right Arm] Blood Pressure Position [Right Arm] Pulse Oximetry 89 L 91 Oxygen Delivery Method T-Piece T-Piece Oxygen Flow Rate Fraction of Inspired Oxygen Sepsis Recent Fever Within 48 Hours Sepsis New/Unexplained Change in Mental Status Sepsis Action Taken by Nursing 11/05/23 09:24 11/05/23 09:30 11/05/23 09:33 Temperature Temperature Source Pulse Rate 113 H 113 H Pulse Rate [Apical] 111 H Pulse Rate from SpO2 Sensor 113 H 114 H Pulse Rhythm Pulse Rhythm [Apical] Pulse Strength [Apical] Respiratory Rate 38 H 36 H Respiratory Effort / Characteristics Non-Labored Spontaneous Respiratory Depth Respiratory Pattern Blood Pressure 91/62 L 89/65 L Blood Pressure [Right Arm] Blood Pressure Mean 71 73 Blood Pressure Mean [Right Arm] Blood Pressure Position [Right Arm] Pulse Oximetry 88 L 90 92 Oxygen Delivery Method Trach Collar Trach Collar Trach Collar Oxygen Flow Rate 10 Fraction of Inspired Oxygen 30 35 35 Sepsis Recent Fever Within 48 Hours Sepsis New/Unexplained Change in Mental Status Sepsis Action Taken by Nursing 11/05/23 09:47 11/05/23 09:48 11/05/23 09:51 Temperature Temperature Source Pulse Rate 109 H 108 H Pulse Rate [Apical] Pulse Rate from SpO2 Sensor 108 H Pulse Rhythm Regular Pulse Rhythm [Apical] Pulse Strength [Apical] Respiratory Rate 36 H 32 H Respiratory Effort / Characteristics Respiratory Depth Respiratory Pattern Blood Pressure 90/62 L Blood Pressure [Right Arm] Blood Pressure Mean 71 Blood Pressure Mean [Right Arm] Blood Pressure Position [Right Arm] Pulse Oximetry 93 93 93 Oxygen Delivery Method T-Piece T-Piece Trach Collar Oxygen Flow Rate Fraction of Inspired Oxygen 35 35 Sepsis Recent Fever Within 48 Hours Sepsis New/Unexplained Change in Mental Status Sepsis Action Taken by Nursing 11/05/23 10:15 11/05/23 10:33 11/05/23 10:45 Temperature Temperature Source Pulse Rate 108 H 101 H 102 H Pulse Rate [Apical] Pulse Rate from SpO2 Sensor 108 H 101 H 102 H Pulse Rhythm Pulse Rhythm [Apical] Pulse Strength [Apical] Respiratory Rate 32 H 26 H 30 H Respiratory Effort / Characteristics Respiratory Depth Respiratory Pattern Blood Pressure 102/67 95/63 L 86/57 L Blood Pressure [Right Arm] Blood Pressure Mean 70 73 62 Blood Pressure Mean [Right Arm] Blood Pressure Position [Right Arm] Pulse Oximetry 92 100 98 Oxygen Delivery Method Trach Collar Trach Collar Trach Collar Oxygen Flow Rate Fraction of Inspired Oxygen 35 35 35 Sepsis Recent Fever Within 48 Hours Sepsis New/Unexplained Change in Mental Status Sepsis Action Taken by Nursing 11/05/23 11:00 Temperature Temperature Source Pulse Rate 99 H Pulse Rate [Apical] Pulse Rate from SpO2 Sensor 98 H Pulse Rhythm Pulse Rhythm [Apical] Pulse Strength [Apical] Respiratory Rate 30 H Respiratory Effort / Characteristics Respiratory Depth Respiratory Pattern Blood Pressure 86/58 L Blood Pressure [Right Arm] Blood Pressure Mean 67 Blood Pressure Mean [Right Arm] Blood Pressure Position [Right Arm] Pulse Oximetry 97 Oxygen Delivery Method Trach Collar Oxygen Flow Rate Fraction of Inspired Oxygen 35 Sepsis Recent Fever Within 48 Hours Sepsis New/Unexplained Change in Mental Status Sepsis Action Taken by Alf Medications Current Medication List: was personally reviewed by me Laboratory Data Attestation: I reviewed the patient's lab results. 11/05/23 08:50 11/05/23 08:50 Lab Results 11/05/23 11/05/23 11/05/23 Range/Units 08:50 09:15 09:39 WBC 11.75 H (4.8-10.8) K/ul RBC 3.68 L (4.20-5.40) M/uL Hgb 12.7 (12.0-16.0) g/dl Hct 36.6 L (37.0-47.0) % MCV 99.5 (80.0-100.0) fL MCH 34.5 H (25.0-34.0) pg MCHC 34.7 (32.0-36.0) g/dL RDW Std Deviation 43.7 (36.4-46.3) fL RDW Coeff of [place] 12.0 (11.5-14.5) % Plt Count 94 L (130-400) K/uL MPV 9.4 (9.4-12.4) fL Immature Gran % (Auto) 0.4 % Neut % (Auto) 87.4 % Lymph % (Auto) 1.7 % [place] % (Auto) 10.4 % Eos % (Auto) 0.0 % Baso % (Auto) 0.1 % Neut # (Auto) 10.27 H (1.40-6.50) K/uL Lymph # (Auto) 0.20 L (1.20-3.40) K/uL [place] # (Auto) 1.22 H (0.11-0.59) K/uL Eos # (Auto) 0.00 (0.00-0.50) K/uL Baso # (Auto) 0.01 (0.00-0.20) K/uL Immature Gran # (Auto) 0.05 (0.01-0.20) K/uL PT 11.4 (9.0-12.0) Seconds INR 1.1 (0.9-1.1) APTT 39 H (21-31) Seconds PTT Ratio 1.4 VBG pH 7.36 (7.36-7.41) VBG pCO2 39 (38-50) mmHg VBG pO2 38 mmHg VBG HCO3 22 mmol/L VBG O2 Saturation 66.7 % VBG Base Excess -3.1 mEq/L Sodium 132 L (136-145) mmol/L Potassium 3.6 (3.5-5.1) mmol/L Chloride 102 (98-107) mmol/L Carbon Dioxide 23 (21-32) mmol/L Anion Gap 7 (3-11) BUN 15 (6-23) mg/dl Creatinine 0.35 L (0.6-1.2) mg/dl Est Cr Clr Drug Dosing Not Reportable Est GFR ( Amer) > 150.0 ml/min Est GFR (Non-Af Amer) 149.2 ml/min BUN/Creatinine Ratio 42.9 H (10-20) Glucose 114 H (70-99(Fasting)) mg/dl Lactate 1.9 (0.4-2.0) mmol/L Calcium 9.2 (8.6-10.3) mg/dl Magnesium 1.9 (1.7-2.4) mg/dl Total Bilirubin 0.4 (0.2-1.0) mg/dl Direct Bilirubin 0.1 (0-0.2) mg/dl AST 14 (13-39) U/L ALT 9 (7-52) U/L Alkaline Phosphatase 66 (34-104) U/L Troponin I High Sens < 2.3 (0-14) pg/ml Total Protein 7.3 (6.0-8.3) gm/dl Albumin 4.1 (3.4-5.0) gm/dl Procalcitonin 0.06 (0-0.5) ng/ml Urine Color Dark Yellow Urine Appearance Cloudy A (Clear) Urine pH 8.0 H (4.5-7.5) Ur Specific [place] 1.027 (1.000-1.030) Urine Protein 1+ H (Negative) Urine Glucose (UA) Negative (Negative) Urine Ketones 1+ H (Negative) Urine Blood Negative (Negative) Urine Nitrite Negative (Negative) Urine Bilirubin Negative (Negative) Urine Urobilinogen Negative (Negative) Ur Leukocyte Esterase Trace H (Negative) Urine WBC (Auto) 0-5 (0-5) /hpf Urine RBC (Auto) 0-2 (0-2) /hpf U Hyaline Cast (Auto) 0-2 (0-2) /lpf U Epithel Cells (Auto) 0-2 (0-2) /hpf Urine Bacteria (Auto) None Seen (None Seen) Valproic Acid 142 H (50-100) mcg/ml Adenovirus (PCR) Not Detected (NotDetected) B. pertussis DNA (PCR) Not Detected (NotDetected) B.parapertussis DNA PCR Not Detected (NotDetected) C. pneumoniae DNA (PCR) Not Detected (NotDetected) Coronavirus OC43 (PCR) Not Detected (NotDetected) Coronavirus HKU1 (PCR) Not Detected (NotDetected) Coronavirus 229E (PCR) Not Detected (NotDetected) SARS-CoV-2 (PCR) Not Detected (NotDetected) Coronavirus NL63 (PCR) Not Detected (NotDetected) Human Metapneumovir PCR Not Detected (NotDetected) Influenza Type A (PCR) Not Detected (NotDetected) Influenza Type B (PCR) Not Detected (NotDetected) M. pneumoniae (PCR) Not Detected (NotDetected) Parainfluenza 1 (PCR) Not Detected (NotDetected) Parainfluenza 2 (PCR) Not Detected (NotDetected) Parainfluenza 3 (PCR) Not Detected (NotDetected) Parainfluenza 4 (PCR) Not Detected (NotDetected) RSV (PCR) Not Detected (NotDetected) Entero/Rhino (PCR) DETECTED A (NotDetected) Administered Medications Baclofen (Baclofen 20 Mg Tab) 20 mg PEG TID KENNEDY Stop: 12/05/23 13:59 Last Admin: 11/05/23 14:33 Dose: 20 mg Documented By: AMB Acetaminophen (Ofirmev) 1,000 mg in 100 mls @ 400 mls/hr IV Q8H PRN PRN Reason: Pain/Fever Stop: 11/08/23 13:02 Last Infusion: 11/05/23 14:15 Dose: Infused Documented By: Admin: 11/05/23 13:46 Dose: 400 mls/hr Documented By: LEVI Nutritional Formula (Boost--Patient's Own Enteral Feeding) 350 ml PEG QID@07,1130,15,19 KENNEDY Stop: 11/05/23 18:59 Last Admin: 11/05/23 14:41 Dose: 350 ml Documented By: LEVI Valproic Acid (Valproic Acid Soln 500 Mg/10 Ml Udc) 550 mg PEG TID KENNEDY Stop: 12/05/23 14:14 Last Admin: 11/05/23 14:33 Dose: 550 mg Documented By: LEVI Discontinued Medications Albuterol (Albut/Ipratrop 3mg/0.5mg Neb 3 Ml Vial) 3 ml NEB NOW STA; Protocol Stop: 11/05/23 08:45 Last Admin: 11/05/23 09:32 Dose: 3 ml Documented By: MALCOLM Sodium Chloride (Nss) 500 mls @ 999 mls/hr IV .Q31M ONE Stop: 11/05/23 09:14 Last Infusion: 11/05/23 10:49 Dose: Infused Documented By: Admin: 11/05/23 09:49 Dose: 999 mls/hr Documented By: Ceftriaxone Sodium (Rocephin) 2,000 mg in 50 mls @ 100 mls/hr IV NOW STA Stop: 11/05/23 09:49 Last Infusion: 11/05/23 10:19 Dose: Infused Documented By: Admin: 11/05/23 09:49 Dose: 100 mls/hr Documented By: Sodium Chloride (Nss) 500 mls @ 999 mls/hr IV .Q31M ONE Stop: 11/05/23 10:50 Last Infusion: 11/05/23 11:19 Dose: Infused Documented By: Admin: 11/05/23 10:49 Dose: 999 mls/hr Documented By: JONA Lactated Ringer's (Lr) 500 mls @ 999 mls/hr IV .Q31M ONE Stop: 11/05/23 12:00 Last Admin: 11/05/23 13:33 Dose: Not Given Documented By: LEVI Ceftazidime/Avibactam 2.5 gm/ (Sodium Chloride) 62 mls @ 31 mls/hr IV NOW STA; Protocol Stop: 11/05/23 13:18 Last Admin: 11/05/23 11:32 Dose: Not Given Documented By: JONA Sterile Water (Tube Feeding Water Flush) 120 ml PO QID@07,1130,15,19 KENNEDY Stop: 12/05/23 14:59 Last Admin: 11/05/23 14:41 Dose: 120 ml Documented By: LEVI Imaging Data Attestation: I personally reviewed and interpreted this imaging study as follows: My Impression: 1 view chest x-ray was obtained in the emergency department. My interpretation is possible infiltrate at the left base. No free air, final report below. Radiologist's Impression: Chest X-Ray 11/05/23 08:44 XR chest 1V portable CLINICAL HISTORY: Sepsis. COMPARISON STUDY: Chest radiograph November 21, 2022. Chest CT October 11, 2022. FINDINGS: Left subclavian [id number] and tracheostomy tube remain in place. There is no pneumothorax. Possible small left pleural effusion. There is no right pleural effusion. Cardiomediastinal silhouette is stable. Left basilar opacity with volume loss is noted. There is no evidence for pulmonary edema. IMPRESSION: 1. Left basilar airspace opacity with volume loss. This could reflect pneumonia or atelectasis. Radiographic follow-up to ensure resolution is recommended. 2. Small left pleural effusion. ACT 112: Negative or not required by law. Electronically signed by: Otto Pearce M.D. 11/05/2023 9:16 AM Discharge Plan Visit Data Chief Complaint: Respiratory Problems Stated Complaint: RESP PROBLEMS ED Provider: Chad Arnold Discharge Problem: Acute and chronic respiratory failure with hypoxia, Pneumonia Patient Disposition: Admitted As Inpatient Discharge Instructions Interventions: ED Discharge Assessment Last Done: 11/05/23 12:13
[2023-11-05 09:31] LABS: Alanine Aminotransferase 9 U/L (7-52); Albumin Level 4.1 gm/dl (3.4-5.0); Alkaline Phosphatase 66 U/L (34-104); Anion Gap 7 (3-11); Aspartate Aminotransferase 14 U/L (13-39); BUN Creatinine Ratio 42.9 (10-20); Bilirubin Direct 0.1 mg/dl (0-0.2); Bilirubin,Total 0.4 mg/dl (0.2-1.0); Blood Urea Nitrogen 15 mg/dl (6-23); Calcium 9.2 mg/dl (8.6-10.3); Carbon Dioxide 23 mmol/L (21-32); Chloride 102 mmol/L (98-107); Est GFR (African American) > 150.0 ml/min; Est GFR (Non-African American) 149.2 ml/min; Glucose 114 mg/dl (70-99(Fasting)); Magnesium 1.9 mg/dl (1.7-2.4); Potassium 3.6 mmol/L (3.5-5.1); Sodium 132 mmol/L (136-145); Total Protein 7.3 gm/dl (6.0-8.3)
[2023-11-05] MEDS: ALBUT/IPRATROP 3MG/0.5MG NEB 3 ML VIAL NEB STA (09:32)
[2023-11-05 09:36] LABS: Troponin I High Sensitivity < 2.3 pg/ml (0-14)
[2023-11-05 09:39] LABS: INR 1.1 (0.9-1.1); Partial Thromboplastin Ratio 1.4; Partial Thromboplastin Time 39 Seconds (21-31); Prothrombin Time 11.4 Seconds (9.0-12.0)
[2023-11-05] MEDS: cefTRIAXone SODIUM 2,000 MG/50 ML BAG IV STA (09:49)
[2023-11-05] MEDS: SODIUM CHLORIDE 0.9% 500 ML IV ONE ×2 (09:49→10:49)
[2023-11-05 09:58] LABS: Appearance Urine Cloudy (Clear); Bacteria Urine Automated None Seen (None Seen); Bilirubin Urine Negative (Negative); Blood Urine Negative (Negative); Cast Urine Automated 0-2 /lpf (0-2); Color Urine Dark Yellow; Epithelial Cell Urine Auto 0-2 /hpf (0-2); Glucose Urine UA Negative (Negative); Ketones Urine 1+ (Negative); Leukocyte Esterase Urine Trace (Negative); Nitrite Urine Negative (Negative); Protein Urine 1+ (Negative); RBC Urine Automated 0-2 /hpf (0-2); Specific Gravity Urine 1.027 (1.000-1.030); Urobilinogen Urine Negative (Negative); WBC Urine Automated 0-5 /hpf (0-5)
--- NOTE | 2023-11-05 10:18 | History & Physical Report ---
Date of Service November 05, 2023 Assessment & Plan (1) Enterovirus infection: Plan: Enterovirus (+) on arrival Contact and droplet precautions IV acetaminophen as needed for pain/fever A.m. CBC, BMP, mag (2) Sepsis: Plan: Pulmonary source; tachycardic, tachypneic, and hypotensive in the ED Lactate and procalcitonin unremarkable Blood cultures drawn IV bolus with NSS 1000 mL + LR 500 mL to meet ideal body weight 30 cc/kg Follow current blood/sputum cultures Antibiotics (as above) (3) Left lower lobe pneumonia: Plan: Viral pneumonia CXR revealed a left basilar airspace opacity that could reflect pneumonia or atelectasis Leukocytosis at 11.75 with a neutrophil predominance; afebrile Rocephin 2000 mg IV x 1 given in the ED Hx of MDR Pseudomonas PNA Monitor for concominant super-imposed baterial PNA Sputum culture ordered, pending ID consult appreciated Pulmonary consult appreciated Will defer additional antibiotics at this time If concerned with worsening symptoms or bacterial pneumonia, recommend ceftazidime/avibactam (4) Chronic respiratory failure with hypoxia: Plan: Longstanding history of trach dependent chronic respiratory failure Patient's public relations player reports that home pulse ox is normally around 98%+ On the morning of 11/04, it was around 95%; no desaturation Continuous pulse oximetry Supplemental oxygen as needed to maintain SpO2 >94% (5) Quadriplegic cerebral palsy: Plan: Chronic contractures Supportive care, frequent turning, repositioning (6) Tracheostomy status: Plan: Tracheostomy last changed on Friday 11/03 Continue nebulized hypertonic saline Daily tracheostomy care (7) Seizure disorder: Plan: Valproic acid level elevated at 142 (8) S/P percutaneous endoscopic gastrostomy (PEG) tube placement: Plan: PEG tube feeding Nutritional assessment (9) Bronchiectasis: Plan: Chronic DuoNeb QID Hypertonic neb BID (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 She presented on 11/04 for worsening yellow secretions from her trach and tachycardia. Patient's nurse (Griselda) is at bedside and provides history. She reports that the patient did have some yellow secretions suctioned on Thursday, however this is not abnormal for her. Then yesterday, she began to cough and have yellow secretions in her trach. She was also complaining of pain and began crying. Patient is unable to indicate where her pain is at. She was given ibuprofen and calm down, as well as some Tylenol last night. Patient did not tolerate her vent last night, which is usually a telltale sign that something is wrong. No fever or temperature overnight. Patient took her regular morning medications today; no recent change in medications. No recent antibiotic use. No sick contacts. She is not on supplemental oxygen at baseline, but does not have it at home and uses it as needed. Patient is hypotensive at 89/65, tachycardic at 109 bpm, tachypneic at 36 at time of admission. SpO2 93% on trach. ED course: Rocephin 2000 mg IV DuoNeb 3 mL NSS 500 mL IV Unable to assess ROS. Allergies Allergy/AdvReac Type Severity Reaction Status Date / Time No Known Allergies Allergy Verified 02/10/23 09:06 Home Medications Medication Instructions Recorded Confirmed Type food supplemt, lactose-reduced 1.5 ea PO QID@07,1130,,07/28/18 11/05/23 History 0.04 gram-1 kcal/mL oral liquid (Boost) water 120 ea PO QID@07,1130,,07/28/18 11/05/23 History acetaminophen 160 mg/5 mL oral 640 mg (20 mL) PO Q6H PRN fever or 12/21/18 11/05/23 Rx liquid pain #473 mL ibuprofen 100 mg/5 mL oral See Rx Instructions PO Q6H PRN 12/21/18 11/05/23 Rx suspension fever or pain #473 mL Miscellaneous Medical Supply #1 ea 02/22/20 08/20/23 Rx (Hospital Bed) nut.tx.,elemental,fhcxvsb-wvdb-vhe 1 ea feeding tube DAILY@1100 08/04/20 11/05/23 History 14 gram-230 kcal/45 mL liquid pkt (Xtracal Plus) nebulizers #1 ea 11/01/20 08/20/23 Rx miscellaneous medical supply 1 ea miscellaneous ONCE #1 ea 12/06/20 08/20/23 Rx miscellaneous medical supply 1 ea miscellaneous ONCE #1 ea 12/06/20 08/20/23 Rx miscellaneous medical supply 1 ea miscellaneous ONCE #180 ea 01/03/21 08/20/23 Rx miscellaneous medical supply #30 ea 01/31/21 08/20/23 Rx ([place] Tracheostomy Care Tray) Miscellaneous Pulmonary Supply #1 ea 12/23/21 08/20/23 Rx albuterol sulfate 2.5 mg/3 mL 2.5 mg continuous nebulization TID 10/08/22 11/05/23 History (0.083 %) solution for nebulization diaper,brief,adult,disposable (Day #180 ea 11/04/22 08/20/23 Rx and Night Brief, Large) disposable gloves #100 ea 11/04/22 08/20/23 Rx incontinence pad, liner, disp #20 ea 11/04/22 08/20/23 Rx incontinence pad, liner, disp #75 ea 11/04/22 08/20/23 Rx cetirizine 10 mg tablet 10 mg feeding tube QAM #90 tabs 12/05/22 11/05/23 Rx Repair or Replacement of Hospital #1 ea 12/26/22 08/20/23 Rx Bed nebulizer accessories #1 ea 02/04/23 08/20/23 Rx nitrofurantoin macrocrystal 50 mg 50 mg feeding tube DAILY #90 caps 02/12/23 11/05/23 Rx capsule albuterol sulfate 2.5 mg/3 mL 2.5 mg (3 mL) inhalation Q4H PRN 06/01/23 11/05/23 Rx (0.083 %) solution for nebulization Wheezing/ shortness of breath #540 mL budesonide 0.5 mg/2 mL suspension 0.5 mg (2 mL) inhalation BID #120 07/09/23 11/05/23 Rx for nebulization mL lidocaine-prilocaine 2.5 %-2.5 % See Rx Instructions .Route 08/12/23 11/05/23 Rx topical cream .COMPLEX #30 grams baclofen 20 mg tablet 20 mg feeding tube TID 30 days #90 08/20/23 11/05/23 Rx tabs clonazepam 0.5 mg disintegrating 0.5 mg feeding tube DIRECTED 08/20/23 11/05/23 Rx tablet PRN PROLONGED SEIZURES #30 tabs fluoxetine 20 mg tablet 20 mg feeding tube QDL #30 tabs 08/20/23 11/05/23 Rx valproic acid (as sodium salt) 250 550 mg (11 mL) feeding tube TID 08/20/23 11/05/23 Rx mg/5 mL oral solution #990 mL sodium chloride 7 % for 4 ml inhalation BID PRN Other #240 10/19/23 11/05/23 Rx nebulization mL trazodone 50 mg tablet 50 mg feeding tube HS #90 tabs 10/28/23 11/05/23 Rx polyethylene glycol 3350 17 17 g feeding tube DAILY 11/05/23 11/05/23 History gram/dose oral powder zonisamide 100 mg capsule 100 mg HS 11/05/23 11/05/23 History zonisamide 100 mg capsule 200 mg feeding tube QAM 11/05/23 11/05/23 History Past Med/Surg History Problem List (Updated 11/05/23 @ 15:41 by Chad Arnold DO) Enterovirus infection Hypotension, chronic Thrombocytopenia Tracheostomy status S/P percutaneous endoscopic gastrostomy (PEG) tube placement Chronic respiratory failure with hypoxia Left lower lobe pneumonia Port-A-Cath in place (11/20/22) Insertion of Mediport, Left Subclavian (Not Applicable) - Ankit Tavera DO Anemia (Chronic) Cerebral palsy (Acute) Acute and chronic respiratory failure with hypoxia (Acute) Pneumonia (Acute) Cholecystitis without calculus Sepsis (Acute) Acute respiratory failure with hypoxia Sepsis due to pneumonia Bronchiectasis Bilateral pneumonia (Acute) Muscle spasticity 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 plugging of bronchi 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) Insomnia (Chronic) Depression with anxiety (Chronic) Allergic rhinitis (Chronic) Seizure disorder (Chronic) Chronic respiratory failure with hypoxia and hypercapnia (Chronic) Medical History Transaminitis Hypotension, chronic Thrombocytopenia Multiple tracheobronchial mucus plugs Acute on chronic respiratory failure with hypoxemia Abnormal LFTs Thrombocytopenia Sepsis Surgical History History of tracheostomy #6 [place] 09/10/2020 S/P percutaneous endoscopic gastrostomy (PEG) tube placement Family History Brother Asthma Other Coronary heart disease Family history non-contributory Hypertension Social History Smoking Status: Never smoker Second Hand Exposure: No; Do You Dip or Chew Tobacco: No; Hx Alcohol Use: No Hx Substance Use: No Preferred Language: Vietnamese Communication Ability: Impaired Communication Ability Comment: Pt is non-verbal at baseline Therapeutic Case Manager Required: No Beliefs That Will Affect Care: None marital status: Single Current Living Situation: Family Current Living Situation Comment: parent Feels Safe at Home: Yes Assistive Devices: Hospital Bed, Lift Chair and Other Review of Systems Review of Systems: See HPI above Physical Exam Physical Exam: General: no acute distress; non-toxic appearing; atrophy of muscles; cooperative; SpO2 93% on T-piece HEENT: normocephalic, atraumatic; no scleral icterus; PERRLA; unable to assess vision and hearing Neck: supple; trach without secretions; no lymphadenopathy; trachea midline Skin: warm, dry without signs of tenting; no cyanosis; no rashes, bruising, lesions, or erythema noted CV: chest wall NTP; port catheter in place without signs of erythema or drainage; RR, tachycardic around 110 bpm; S1/S2 normal; no murmurs/rubs/gallops; pulses intact and symmetric at radial, DP, and PT Lungs: Dry cough; no acute respiratory distress; symmetrical chest wall expansion; clear breath sounds across all lung gong w/o adventitious sounds; no wheezing ABD: Soft, NTP; PEG tube in place without erythema or infection; BS present; no rebound/guarding; no distention MSK: no tics or fasciculations; UE/LEs contractures; no edema noted in the LEs b/l, nonerythematous; unable to wiggle toes Neuro: Nonverbal; patient does not respond to questions; unable to assess sensation Results & Data Results & Data Vital Signs (Past 12 Hours) Vital Signs Temp Pulse Pulse Resp BP BP Pulse Ox 11/05/23 09:48 109 H 36 H 93 11/05/23 09:47 93 11/05/23 09:33 111 H 92 11/05/23 09:30 113 H 36 H 89/65 L 90 11/05/23 09:24 113 H 38 H 91/62 L 88 L 11/05/23 08:51 119 H 36 H 103/74 91 11/05/23 08:36 118 H 38 H 91/57 L 89 L 11/05/23 08:36 122 H 11/05/23 08:33 120 H 38 H 87/60 L 89 L 11/05/23 08:23 36.4 C L 132 H 38 H 93 O2 Del Method O2 Flow Rate FiO2 11/05/23 09:48 T-Piece 11/05/23 09:47 T-Piece 35 11/05/23 09:33 Trach Collar 10 35 11/05/23 09:30 Trach Collar 35 11/05/23 09:24 Trach Collar 30 11/05/23 08:51 T-Piece 11/05/23 08:36 T-Piece 11/05/23 08:36 11/05/23 08:33 T-Piece 11/05/23 08:23 Room Air Laboratory Results Abnormal lab results 11/05/23 11/05/23 Range/Units 08:50 09:39 WBC 11.75 H (4.8-10.8) K/ul RBC 3.68 L (4.20-5.40) M/uL Hct 36.6 L (37.0-47.0) % MCH 34.5 H (25.0-34.0) pg Plt Count 94 L (130-400) K/uL Neut # (Auto) 10.27 H (1.40-6.50) K/uL Lymph # (Auto) 0.20 L (1.20-3.40) K/uL [place] # (Auto) 1.22 H (0.11-0.59) K/uL APTT 39 H (21-31) Seconds Sodium 132 L (136-145) mmol/L Creatinine 0.35 L (0.6-1.2) mg/dl BUN/Creatinine Ratio 42.9 H (10-20) Glucose 114 H (70-99(Fasting)) mg/dl Urine Appearance Cloudy A (Clear) Urine pH 8.0 H (4.5-7.5) Urine Protein 1+ H (Negative) Urine Ketones 1+ H (Negative) Ur Leukocyte Esterase Trace H (Negative) Valproic Acid 142 H (50-100) mcg/ml Diagnostic Findings Chest X-Ray 11/05/23 08:44 XR chest 1V portable CLINICAL HISTORY: Sepsis. COMPARISON STUDY: Chest radiograph November 21, 2022. Chest CT October 11, 2022. FINDINGS: Left subclavian Sreaux-z-Sshk and tracheostomy tube remain in place. There is no pneumothorax. Possible small left pleural effusion. There is no right pleural effusion. Cardiomediastinal silhouette is stable. Left basilar opacity with volume loss is noted. There is no evidence for pulmonary edema. IMPRESSION: 1. Left basilar airspace opacity with volume loss. This could reflect pneumonia or atelectasis. Radiographic follow-up to ensure resolution is recommended. 2. Small left pleural effusion. ACT 112: Negative or not required by law. Electronically signed by: Otto Pearce M.D. 11/05/2023 9:16 AM ECG Additional Comments: ECG revealed sinus tachycardia at 111 bpm; QTc 514 (caution use of QT prolonging agents) Code Status & VTE Plan Code Status Conditional code (confirmed with patient's nurse/public relations player Griselda at bedside; no CPR or defibrillation; all treatments outside of cardiac arrest) VTE Prophylaxis Plan VTE Prophylaxis will be ordered: Yes Supervising Physician Co-Signing Physician Notes Patient seen and examined, chart reviewed, case discussed with Edmund Ann PA-C and I agree with the assessment and plan as above except as otherwise noted Labs and images reviewed Selvin is a 28-year-old female with history of cerebral palsy, tracheostomy, past Pseudomonas infection, and multiple admissions for respiratory failure/pneumonia who was last admitted 11/16/2022 - 11/24/2022 for sepsis due to pneumonia treated with ceftazidime/Evatt Bactrim, doxycycline with 2 weeks of IV antibiotics per ID due to poor clearance of sputum. Course was complicated by left lower lobe collapse requiring bronchoscopy. Iron deficiency anemia was also suspected at that time, DDx included AOCD. Sepsis, 2/2 suspected viral, DDx includes pseudomonal pneumonia In ER EKG is sinus tachycardia without territorial ST segment changes Hypotensive 80slow 100s in the ER. Patient with baseline variable borderline low blood pressures on prior admissions. She is more tachypneic than her typical baseline on admission. Leukocytosis with neutrophilic predominance on admission, lactate is normal, procalcitonin is normal, UA is not overtly infected appearing. Respiratory bio fire is pending CXR: Left basilar airspace opacity with volume loss? Pneumonia versus atelectasis. Small left pleural effusion Respiratory culture 10/2022: Strain 1 of Pseudomonas intermediate sensitivity to levofloxacin and Zosyn, resistant to meropenem,sensitive to ceftazidime, Cipro, tobramycin, cefepime BioFire subsequently returned positive for entero-/rhinovirus. Given normal procalcitonin, lack of fever, and no change in oxygen requirements will treat with supportive care and defer antibiotics on admission. If patient clinically worsens or concern for superimposed pneumonia develops then would treat with pseudomonal coverage at that time. Based on IDSA recommendations on ceftazidimeIV Bactrim sensitive MDR Pseudomonas will treat with monotherapy with Avycaz. ID following. Hypertonic saline twice daily, pulmonary toilet BC pending Sputum culture ordered Contact precautions due to extensive MDR history and colonization Tracheostomy status Typically on trach collar during the day, vent at night. Management as above Last admission was on AC-VC, RR 12, TV 350, PEEP 5, 40. Will continue vent settings at night, trach collar daytime Quadruped cerebral palsy Continue valproic acid/baclofen/clonazepam Nonverbal Agree with above PG Care Time/CCT Total # of Minutes Spent Total Time Spent with Patient: Total time spent is greater than 50% in coordination of care (as documented) at patient's floor/unit and/or counseling patient: Coding [place] [address] INT INP/OBS CARE 3MIN Patient Type Established History Comprehensive Exam Comprehensive Medical Decision Making High Complexity Diagnoses Enterovirus infection B34.1 Sepsis A41.9 Sepsis acute organ dysfunction status: unspecified Sepsis type: sepsis due to unspecified organism Left lower lobe pneumonia J18.9 Chronic respiratory failure with hypoxia J96.11 Quadriplegic cerebral palsy G80.8 Tracheostomy status Z93.0 Seizure disorder G40.909 S/P percutaneous endoscopic gastrostomy (PEG) tube placement Z93.1 Bronchiectasis J47.9 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
[2023-11-05 10:42] LABS: Adenovirus PCR Not Detected (NotDetected); Bordetella parapertussis PCR Not Detected (NotDetected); Bordetella pertussis PCR Not Detected (NotDetected); Chlamydia pneumoniae PCR Not Detected (NotDetected); Coronavirus 229E PCR Not Detected (NotDetected); Coronavirus CoV-2 (COVID19)PCR Not Detected (NotDetected); Coronavirus HKU1 PCR Not Detected (NotDetected); Coronavirus NL63 PCR Not Detected (NotDetected); Coronavirus OC43PCR Not Detected (NotDetected); Human Metapneumovirus PCR Not Detected (NotDetected); Influenza A PCR Not Detected (NotDetected); Influenza B PCR Not Detected (NotDetected); Mycoplasma pneumoniae PCR Not Detected (NotDetected); Parainfluenza Virus 1 PCR Not Detected (NotDetected); Parainfluenza Virus 2 PCR Not Detected (NotDetected); Parainfluenza Virus 3 PCR Not Detected (NotDetected); Parainfluenza Virus 4 PCR Not Detected (NotDetected); Respiratory Syncytial VirusPCR Not Detected (NotDetected)
[2023-11-05 10:47] LABS: Rhinovirus/Enterovirus PCR DETECTED (NotDetected)
[2023-11-05] MEDS ORDERED: Patient's HEIGHT &/or WEIGHT Needed SCH (11:30)
[2023-11-05] MEDS: LACTATED RINGER'S 500 ML IV ONE (13:33)
[2023-11-05] MEDS ORDERED: ALBUTEROL 0.083% NEBU SOLN 3 ML VIAL INH PRN (13:39)
--- NOTE | 2023-11-05 13:41 | Pulmonary Consultation ---
Date of Consultation November 05, 2023 Assessment & Plan (1) Enterovirus infection: (2) Thrombocytopenia: (3) Tracheostomy status: (4) S/P percutaneous endoscopic gastrostomy (PEG) tube placement: (5) Bronchiectasis: Plan Chest x-ray 11/05/2023: Portable film, chronic left lower lobe atelectasis, left costophrenic angle is not clean, right costophrenic angle as well as cardiophrenic angles are clean. No clear lung infiltrate appreciated -- Trach dependent Respiratory bio fire negative for everything except enterorhinovirus on 11/05/2023 Nasal MRSA negative Procalcitonin negative Last bronchoscopy 10/08: Pseudomonas and Corynebacterium. Patient finished ceftazidime antibiotic, last dose was 10/26/2022 It also grew Epicoccum species which is most likely a colonizer History of Pseudomonas which is resistant to levofloxacin and tobramycin. Sensitive to only Avycaz History of Achromobacter and Pseudomonas in the sputum O2 supplementation to keep oxygen saturation between 90-92% --Chronic bronchiectasis Hypertonic saline nebulized twice a day, aggressive suctioning with chest PT Plan: Follow-up trach culture No indication for bronchoscopy right now, patient is saturating well at baseline Continue with chest PT and upper airway clearance technique Continue with hypertonic saline nebulized Continue with home vent setting Please note the above document was generated using voice recognition software. It may contain grammatical, syntax or spelling errors.Any formal questions or co ncerns about the content, text or information contained within the body of this dictation should be directly addressed to the provider for clarification. History of Present Illness Attending Physician: Ray Bocanegra MD History of Present Illness 28-year-old female with history of cerebral palsy and trach dependent respiratory failure presented to the hospital because of worsening secretion and lethargic as per the mother In the ER patient was found to be positive for entero-/rhinovirus. Patient follows up with Dr. Stover as an outpatient. Patient's mother as well as emergency medical tech were in the room at the time of examination She was saturating 99-100% on trach collar 35%. I went down to 28%. Heart rate was in the high 80s to low 90s. Systolic blood pressure was in the high 100s. Patient was not in any respiratory distress. As per the mother nobody else is sick at home. The patient started to have some rhonchorous sounds in the upper airway. They are compliant with the nebulizer and upper airway clearance technique at home. No diarrhea Allergies Allergy/AdvReac Type Severity Reaction Status Date / Time No Known Allergies Allergy Verified 02/10/23 09:06 Home Medications Medication Instructions Recorded Confirmed Type food supplemt, lactose-reduced 1.5 ea PO QID@07,1130,15,07/28/18 11/05/23 History 0.04 gram-1 kcal/mL oral liquid (Boost) water 120 ea PO QID@07,1130,15,19 07/28/18 11/05/23 History acetaminophen 160 mg/5 mL oral 640 mg (20 mL) PO Q6H PRN fever or 12/21/18 11/05/23 Rx liquid pain #473 mL ibuprofen 100 mg/5 mL oral See Rx Instructions PO Q6H PRN 12/21/18 11/05/23 Rx suspension fever or pain #473 mL Miscellaneous Medical Supply #1 ea 02/22/20 08/20/23 Rx (Hospital Bed) nut.tx.,elemental,imfklhx-noex-xsm 1 ea feeding tube DAILY@1100 08/04/20 11/05/23 History 14 gram-230 kcal/45 mL liquid pkt (Xtracal Plus) nebulizers #1 ea 11/01/20 08/20/23 Rx miscellaneous medical supply 1 ea miscellaneous ONCE #1 ea 12/06/20 08/20/23 Rx miscellaneous medical supply 1 ea miscellaneous ONCE #1 ea 12/06/20 08/20/23 Rx miscellaneous medical supply 1 ea miscellaneous ONCE #180 ea 01/03/21 08/20/23 Rx miscellaneous medical supply #30 ea 01/31/21 08/20/23 Rx ([place] [facility] Tray) Miscellaneous Pulmonary Supply #1 ea 12/23/21 08/20/23 Rx albuterol sulfate 2.5 mg/3 mL 2.5 mg continuous nebulization TID 10/08/22 11/05/23 History (0.083 %) solution for nebulization diaper,brief,adult,disposable (Day #180 ea 11/04/22 08/20/23 Rx and Night Brief, Large) disposable gloves #100 ea 11/04/22 08/20/23 Rx incontinence pad, liner, disp #20 ea 11/04/22 08/20/23 Rx incontinence pad, liner, disp #75 ea 11/04/22 08/20/23 Rx cetirizine 10 mg tablet 10 mg feeding tube QAM #90 tabs 12/05/22 11/05/23 Rx Repair or Replacement of Hospital #1 ea 12/26/22 08/20/23 Rx Bed nebulizer accessories #1 ea 02/04/23 08/20/23 Rx nitrofurantoin macrocrystal 50 mg 50 mg feeding tube DAILY #90 caps 02/12/23 11/05/23 Rx capsule albuterol sulfate 2.5 mg/3 mL 2.5 mg (3 mL) inhalation Q4H PRN 06/01/23 11/05/23 Rx (0.083 %) solution for nebulization Wheezing/ shortness of breath #540 mL budesonide 0.5 mg/2 mL suspension 0.5 mg (2 mL) inhalation BID #120 07/09/23 11/05/23 Rx for nebulization mL lidocaine-prilocaine 2.5 %-2.5 % See Rx Instructions .Route 08/12/23 11/05/23 Rx topical cream .COMPLEX #30 grams baclofen 20 mg tablet 20 mg feeding tube TID 30 days #90 08/20/23 11/05/23 Rx tabs clonazepam 0.5 mg disintegrating 0.5 mg feeding tube DIRECTED 08/20/23 11/05/23 Rx tablet PRN PROLONGED SEIZURES #30 tabs fluoxetine 20 mg tablet 20 mg feeding tube QDL #30 tabs 08/20/23 11/05/23 Rx valproic acid (as sodium salt) 250 550 mg (11 mL) feeding tube TID 08/20/23 11/05/23 Rx mg/5 mL oral solution #990 mL sodium chloride 7 % for 4 ml inhalation BID PRN Other #240 10/19/23 11/05/23 Rx nebulization mL trazodone 50 mg tablet 50 mg feeding tube HS #90 tabs 10/28/23 11/05/23 Rx polyethylene glycol 3350 17 17 g feeding tube DAILY 11/05/23 11/05/23 History gram/dose oral powder zonisamide 100 mg capsule 100 mg HS 11/05/23 11/05/23 History zonisamide 100 mg capsule 200 mg feeding tube QAM 11/05/23 11/05/23 History Patient History Medical History Transaminitis Hypotension, chronic Thrombocytopenia Multiple tracheobronchial mucus plugs Acute on chronic respiratory failure with hypoxemia Abnormal LFTs Thrombocytopenia Sepsis Surgical History History of tracheostomy #6 [place] 09/10/2020 S/P percutaneous endoscopic gastrostomy (PEG) tube placement Family History (Reviewed 11/05/23 @ :24 by Chad Arnold DO) Brother Asthma Other Coronary heart disease Family history non-contributory Hypertension Social History Smoking Status: Never smoker Second Hand Exposure: No; Do You Dip or Chew Tobacco: No; Hx Alcohol Use: No Hx Substance Use: No Preferred Language: Danish Communication Ability: Impaired Communication Ability Comment: Pt is non-verbal at baseline Picture Copyist Required: No Beliefs That Will Affect Care: None marital status: Single Current Living Situation: Family Current Living Situation Comment: parent Feels Safe at Home: Yes Assistive Devices: Hospital Bed, Lift Chair and Other Physical Exam Physical Exam: Constitutional: No acute distress HEENT: EOMI, PERRLA, positive trach Respiratory system:Decreased air entry bilaterally, no wheeze, minimal rhonchi appreciated bilaterally, mild crackles bilateral lower lobes more on the left CVS: S1-S2 positive, no murmurs or gallops, tachycardia Abdomen: Soft, nontender, nondistended, positive bowel sounds x4, positive PEG Extremities: +2 pulses bilaterally radialis/ dorsalis pedis, no cyanosis, no edema Neuro:Contracture of the upper and lower extremities, spontaneously opening eyes, not following commands Psych:Unable to assess G/U:No Cota Skin: no rashes, warm and dry Lymphatic: no cervical or axillary lymphadenopathy Results & Data Results & Data Vital Signs (Past 12 Hours) Vital Signs Temp Pulse Pulse Resp BP BP Pulse Ox 11/05/23 13:31 37.0 C 103 H 20 101/62 98 11/05/23 12:00 104 H 30 H 95/62 L 98 09/12/24 11:45 95 H 32 H 89/34 L 95 11/05/23 11:45 89/34 L 11/05/23 11:33 98 H 28 H 89/61 L 98 11/05/23 11:16 95 H 30 H 106/72 98 11/05/23 11:00 99 H 30 H 86/58 L 97 11/05/23 10:45 102 H 30 H 86/57 L 98 11/05/23 10:33 101 H 26 H 95/63 L 100 11/05/23 10:15 108 H 32 H 102/67 92 11/05/23 09:51 108 H 32 H 90/62 L 93 11/05/23 09:48 109 H 36 H 93 11/05/23 09:47 93 11/05/23 09:33 111 H 92 11/05/23 09:30 113 H 36 H 89/65 L 90 11/05/23 09:24 113 H 38 H 91/62 L 88 L 11/05/23 08:51 119 H 36 H 103/74 91 11/05/23 08:36 118 H 38 H 91/57 L 89 L 11/05/23 08:36 122 H 11/05/23 08:33 120 H 38 H 87/60 L 89 L 11/05/23 08:30 11/05/23 08:23 36.4 C L 132 H 38 H 93 O2 Del Method O2 Flow Rate FiO2 11/05/23 13:31 Room Air 11/05/23 12:00 Trach Collar 35 11/05/23 11:45 Trach Collar 35 11/05/23 11:45 11/05/23 11:33 Trach Collar 35 11/05/23 11:16 Trach Collar 35 11/05/23 11:00 Trach Collar 35 11/05/23 10:45 Trach Collar 35 11/05/23 10:33 Trach Collar 35 11/05/23 10:15 Trach Collar 35 11/05/23 09:51 Trach Collar 35 11/05/23 09:48 T-Piece 11/05/23 09:47 T-Piece 35 11/05/23 09:33 Trach Collar 10 35 11/05/23 09:30 Trach Collar 35 11/05/23 09:24 Trach Collar 30 11/05/23 08:51 T-Piece 11/05/23 08:36 T-Piece 11/05/23 08:36 11/05/23 08:33 T-Piece 11/05/23 08:30 Trach Collar 35 11/05/23 08:23 Room Air PG Care Time/CCT Total # of Minutes Spent Total Time Spent with Patient: Total time spent is greater than 50% in coordination of care (as documented) at patient's floor/unit and/or counseling patient: Coding Level of Care Code 47753 INT INP/OBS CARE 75MIN Diagnoses Enterovirus infection B34.1 Thrombocytopenia D69.6 Tracheostomy status Z93.0 S/P percutaneous endoscopic gastrostomy (PEG) tube placement Z93.1 Bronchiectasis J47.9
[2023-11-05] MEDS ORDERED: LIDOCAINE/PRILOCAINE 2.5% EA CRM EXT PRN (13:45)
[2023-11-05] MEDS: ACETAMINOPHEN 1,000 MG/100 ML VIAL IV PRN (13:46)
[2023-11-05] MEDS ORDERED: ALBUTEROL 0.083% NEBU SOLN 3 ML VIAL NEB SCH (14:00)
[2023-11-05] MEDS ORDERED: clonazePAM 0.25 MG OD TAB PO PRN (14:15)
[2023-11-05] MEDS: VALPROIC ACID SOLN 500 MG/10 ML UDC PEG SCH (14:33)
[2023-11-05] MEDS: BACLOFEN 20 MG TAB PEG SCH (14:33)
[2023-11-05] MEDS: TUBE FEEDING WATER FLUSH PO SCH ×2 (14:41→18:17)
[2023-11-05] MEDS: [UNRECOGNIZED DRUG - OTHER] PEG SCH (14:41)
--- NOTE | 2023-11-05 14:45 | Electrocardiogram Report ---
Test Reason : Blood Pressure : */* mmHG Vent. Rate : 111 BPM Atrial Rate : 111 BPM P-R Int : 130 ms QRS Dur : 78 ms QT Int : 378 ms P-R-T Axes : 51 45 66 degrees QTcB Int : 514 ms Sinus tachycardia Nonspecific T wave abnormality Abnormal ECG When compared with ECG of 16-Nov-2022 12:17, No significant change was found Confirmed by Chad Lucas ([id number]) on 11/05/2023 2:44:42 PM Referred By: REFERRED SELF Confirmed By: Chad Lucas
[2023-11-05] MEDS ORDERED: PATIENT'S OWN ENTERAL FEEDING GJT SCH (15:00)
[2023-11-05] MEDS: PATIENT'S OWN ENTERAL FEEDING PEG SCH (18:18)
[2023-11-05] MEDS ORDERED: SODIUM CHLOR 7% 4 ML NEB INH SCH (19:00)
[2023-11-05] MEDS: BUDESONIDE 0.5 MG/2 ML VIAL (PULMICORT) INH SCH (19:36)
[2023-11-05] MEDS: SODIUM CHLOR 7% 4 ML NEB NEB SCH (19:37)
[2023-11-05] MEDS: traZODone HCL 50 MG TAB PEG SCH (22:31)
[2023-11-05] MEDS: ZONISAMIDE 100 MG CAPSULE PO SCH (22:32)
[2023-11-06 03:08] LABS: Hematocrit (blood only) 34.7 % (37.0-47.0); Hemoglobin 12.2 g/dl (12.0-16.0); Immature Granulocytes # (auto) 0.05 K/uL (0.01-0.20); Immature Granulocytes % (auto) 0.6 %; Lymphocytes # (auto) 0.46 K/uL (1.20-3.40); Lymphocytes % (auto) 5.3 %; Mean Corpuscular Hgb Conc 35.2 g/dL (32.0-36.0); Mean Corpuscular Volume 99.4 fL (80.0-100.0); Mean Platelet Volume 9.5 fL (9.4-12.4); Monocytes # (auto) 0.91 K/uL (0.11-0.59); Monocytes % (auto) 10.5 %; Neutrophils # (auto) 7.23 K/uL (1.40-6.50); Neutrophils % (auto) 83.6 %; Platelet Count 76 K/uL (130-400); RDW Coefficient of Variation 12.1 % (11.5-14.5); Red Blood Count 3.49 M/uL (4.20-5.40); White Blood Count 8.65 K/ul (4.8-10.8)
[2023-11-06 03:24] LABS: Anion Gap 8 (3-11); BUN Creatinine Ratio 26.3 (10-20); Blood Urea Nitrogen 10 mg/dl (6-23); Calcium 8.7 mg/dl (8.6-10.3); Carbon Dioxide 19 mmol/L (21-32); Chloride 104 mmol/L (98-107); Creatinine Clr Calc Pharmacy 184.7 ml/min; Est GFR (African American) > 150.0 ml/min; Est GFR (Non-African American) 145.2 ml/min; Glucose 102 mg/dl (70-99(Fasting)); Magnesium 1.9 mg/dl (1.7-2.4); Potassium 3.8 mmol/L (3.5-5.1); Sodium 131 mmol/L (136-145)
[2023-11-06] MEDS: ALBUT/IPRATROP 3MG/0.5MG NEB 3 ML VIAL NEB PRN (04:09)
--- NOTE | 2023-11-06 07:36 | Pulmonology Progress Note ---
Date of Service November 06, 2023 Assessment & Plan (1) Enterovirus infection: (2) Thrombocytopenia: (3) Tracheostomy status: (4) S/P percutaneous endoscopic gastrostomy (PEG) tube placement: (5) Bronchiectasis: Plan Chest x-ray 11/05/2023: Portable film, chronic left lower lobe atelectasis, left costophrenic angle is not clean, right costophrenic angle as well as cardiophrenic angles are clean. No clear lung infiltrate appreciated -- Trach dependent Respiratory bio fire negative for everything except enterorhinovirus on 11/05/2023 Nasal MRSA negative Procalcitonin negative Last bronchoscopy 10/08: Pseudomonas and Corynebacterium. Patient finished ceftazidime antibiotic, last dose was 10/26/2022 It also grew Epicoccum species which is most likely a colonizer History of Pseudomonas which is resistant to levofloxacin and tobramycin. Sensitive to only Avycaz History of Achromobacter and Pseudomonas in the sputum O2 supplementation to keep oxygen saturation between 90-92% --Chronic bronchiectasis Hypertonic saline nebulized twice a day, aggressive suctioning with chest PT Plan: In/out: +1.9 L Will give 500 mL of Plasma-Lyte Magnesium and potassium being replaced Follow-up trach culture No indication for bronchoscopy right now, patient is saturating well at baseline Continue with chest PT and upper airway clearance technique Continue with hypertonic saline nebulized Continue with home vent setting at night No further recommendation from pulmonary perspective, will sign off Please call directly with any questions Please note the above document was generated using voice recognition software. It may contain grammatical, syntax or spelling errors.Any formal questions or concerns about the content, text or information contained within the body of this dictation should be directly addressed to the provider for clarification. Admission and Anticipated Discharge Date Admission Date: November 05, 2023 Subjective Patient seen and examined at bedside. No acute distress, no adverse events overnight She was on trach collar, saturating 92-93% while lying in the left recumbent position Systolic blood pressure was in the mid 90s with MAP greater than 65 She has been afebrile Review of Systems 2 Review of Systems: All systems reviewed & are unremarkable except as noted in Subjective Physical Exam 2 Physical Exam: Constitutional: No acute distress HEENT: EOMI, PERRLA, positive trach Respiratory system:Decreased air entry bilaterally, no wheeze, minimal rhonchi appreciated bilaterally, mild crackles bilateral lower lobes more on the left CVS: S1-S2 positive, no murmurs or gallops, tachycardia Abdomen: Soft, nontender, nondistended, positive bowel sounds x4, positive PEG Extremities: +2 pulses bilaterally radialis/ dorsalis pedis, no cyanosis, no edema Neuro:Contracture of the upper and lower extremities, spontaneously opening eyes, not following commands Psych:Unable to assess G/U:No Cota Skin: no rashes, warm and dry Lymphatic: no cervical or axillary lymphadenopathy Results & Data Results & Data Vital Signs (Past 12 Hours) Vital Signs Temp Pulse Pulse Resp BP Pulse Ox O2 Del Method 11/06/23 06:00 101/80 11/06/23 06:00 110 H 29 H 97 11/06/23 05:06 117 H 15 97 11/06/23 05:00 94/63 L 11/06/23 04:48 110 H 16 98 11/06/23 04:24 100 H 22 97 11/06/23 04:03 108 H 37 H 97 11/06/23 04:00 93/68 L 11/06/23 04:00 93/68 L 11/06/23 03:57 36.9 C 11/06/23 03:57 11/06/23 03:48 100 H 0 L 94 11/06/23 03:00 98/60 L 11/06/23 03:00 102 H 0 L 91 11/06/23 02:00 109 H 3 L 91 11/06/23 02:00 105/63 11/06/23 02:00 105/63 11/06/23 01:06 114 H 22 91 11/06/23 01:00 106/62 11/06/23 00:57 110 H 22 91 11/06/23 00:30 107/61 11/06/23 00:30 107/61 11/06/23 00:30 107/61 11/06/23 00:24 117 H 25 H 94 11/06/23 00:03 109 H 23 107/61 93 11/06/23 00:00 11/05/23 23:33 114 H 11/05/23 23:15 121 H 31 H 92 11/05/23 23:09 Trach Collar 11/05/23 22:51 37.0 C 11/05/23 22:30 132 H 34 H 94 11/05/23 22:00 129 H 35 H 98 11/05/23 21:34 107/65 11/05/23 21:06 123 H 41 H 98 11/05/23 20:12 118 H 51 H 100 11/05/23 19:58 127 H 18 98 Trach Collar O2 Flow Rate FiO2 11/06/23 06:00 11/06/23 06:00 11/06/23 05:06 11/06/23 05:00 11/06/23 04:48 11/06/23 04:24 35 11/06/23 04:03 11/06/23 04:00 11/06/23 04:00 11/06/23 03:57 11/06/23 03:57 35 11/06/23 03:48 11/06/23 03:00 11/06/23 03:00 11/06/23 02:00 11/06/23 02:00 11/06/23 02:00 11/06/23 01:06 11/06/23 01:00 11/06/23 00:57 11/06/23 00:30 11/06/23 00:30 11/06/23 00:30 11/06/23 00:24 11/06/23 00:03 11/06/23 00:00 35 11/05/23 23:33 11/05/23 23:15 11/05/23 23:09 11/05/23 22:51 11/05/23 22:30 35 11/05/23 22:00 11/05/23 21:34 11/05/23 21:06 11/05/23 20:12 11/05/23 19:58 8 28 Laboratory Results 11/06/23 02:54 11/06/23 02:54 PG Care Time/CCT Total # of Minutes Spent Total Time Spent with Patient: Total time spent is greater than 50% in coordination of care (as documented) at patient's floor/unit and/or counseling patient: Coding Level of Care Code 66988 SUB INP/OBS CARE 2/35MIN Diagnoses Enterovirus infection B34.1 Thrombocytopenia D69.6 Tracheostomy status Z93.0 S/P percutaneous endoscopic gastrostomy (PEG) tube placement Z93.1 Bronchiectasis J47.9
--- NOTE | 2023-11-06 08:20 | Infectious Disease Consult ---
Date of Consultation November 06, 2023 Assessment & Plan (1) Enterovirus infection: (2) Hypotension, chronic: Plan -Agree no overt pneumonia -Patient Afebrile, baseline vent setting - Normal WBC, sputum cx with normal dawit -Likely enterovirus cause of current symptoms -Can complete therapy with 5 days of augmentin D/W pulm, Primary and patients mother Aileen Ahmadi MD Infectious Diseases Consultation Information Consultation was provided via telemedicine using two-way real-time interactive telecommunication between the patient and the telemedicine provider. For the duration of the visit, the provider was performing the assessment from a different facility than the patient. This includesuse of bluetooth stethoscope forauscultationperformed by the telepresenter that the telemedicine provider can hear if described in the physical exam. Academic Affairs Director contact information: Please call [facility] . (Phone Number For Physician Use Only) After establishing a telemedicine visit, patient was: Patient was verified with two unique identifiers, Patient/authorized rep acknowledged consent and understanding and Gave permission to continue telehealth session Time Spent with Patient: Initial => 55 min History of Present Illness Reason for Consultation: Pneumonia? Requesting Physician: Dr Vera Attending Physician: Bella Vera MD History of Present Illness 28 yo F with history of cerebral palsy, chronic tracheostomy and vented at night, chronic mucous plugging, Pseudomonas and Achromobacter colonization, seizure disorder, previous MDR pseudomonas pneumonia a/w hypotension and increased cough. Patient known to ID service. Prior hospitalization in 2022. She was admitted in 09/2022 for tracheitis and discharged on Cipro, readmitted on 10/08 s/p bronchoscopy which grew PSA and corynebacterium. Pseudomonal pneumonia treated with ceftazidime through 10/26, again re- admitted on 11/16/22 and tx with 2 week course Ceftaz-Corrine. Today, caregiver at bedside and mother on phone. At home, noted to have colored secretions. Crying out in pain when she needed to cough past few days . Notably only on ventilator only at night, Vent settings 350/12 RR/ PEEP 5 ( at home, baseline and currently in hospital). On admission, afebrile, WBC 11.75 BP low in 80s/50s (typically runs low 100s), CXR shows possible left sided opacity vs atelectasis. RVP + enterovirus. Sputum cx normal dawit. She was given a dose of FOOD SELECTOR, then given dose of Ceftaz/Corrine PRIOR MICRO: Micro: 11/19: Bronch/BAL: PSA (S Cefepime, ceftaz, ceftaz/corrine cipro, Zosyn VINICIUS 16, I gent, levofloxacin R Meropenem, E cloacae (S Ertapenem, Piptazo 16, I Cefepime 8, RCipro) GNBacilli 11/16 sputum cx PSA #1 S to Ceftaz, Ceftaz/corrine, cipro, tobra cefepime VINICIUS 8 ; PSA #2 S Ceftaz/Corrine VINICIUS 8, cipro, Aila, tobramycin 11/16 Blood culture GPC, BCID Staph epi (mecA positive) 10/11BCcx NGTd 10/10 sputum trach cx g/s GPc,GPR cx; rare PSA ( S to ceftaz, Ceftaz/corrine, Alia, pip /tazo, Ceftolozan/tazo I Cefepime,R cipro, Leva, Tobra, gent ),+ rare corynebacterium 10/08 BAL LLL -Respiratory cx: light normal dawit. GS--rare GPCs -Fungal smear neg, cx NG -AFB smear, cx: NG 10/08 BCx x2:sterile 09/26 Sputum cx: PsA #1 (S cefepime, ceftaz, cipro, alia, pip/tazo. I levo. R gent.), PsA #2 (S ceftaz, cipro, alia, pip/tazo. I cefepime. R levo, gent) 08/04 Sputum cx: PsA (S ceftaz, cipro, alia, pip/tazo. I cefepime, aztreonam. R levo, gent.) 06/23 Sputum cx: PsA (S cefepime, ceftaz, cipro, levo, alia, pip/tazo. R gent, tobra) 11/25/21 BAL LLL: PsA (S ceftaz, cipro, alia, pip/tazo. I cefepime. R levo, gent) 11/23/21 Sputum cx: PsA (S ceftaz, cipro, alia, tobra, pip/tazo. I cefepime, gent. R levo) 08/27/21 Sputum cx: PsA, Achromobacter (S ceftaz, levo, TMP/SMX. I cipro. R cefepime, gent, alia, pip/tazo) Allergies Allergy/AdvReac Type Severity Reaction Status Date / Time No Known Allergies Allergy Verified 02/10/23 09:06 Home Medications Medication Instructions Recorded Confirmed Type food supplemt, lactose-reduced 1.5 ea PO QID@07,1130,,07/28/18 11/05/23 History 0.04 gram-1 kcal/mL oral liquid (Boost) water 120 ea PO QID@07,1130,15,07/28/18 11/05/23 History acetaminophen 160 mg/5 mL oral 640 mg (20 mL) PO Q6H PRN fever or 12/21/18 11/05/23 Rx liquid pain #473 mL ibuprofen 100 mg/5 mL oral See Rx Instructions PO Q6H PRN 12/21/18 11/05/23 Rx suspension fever or pain #473 mL Miscellaneous Medical Supply #1 ea 02/22/20 08/20/23 Rx (Hospital Bed) nut.tx.,elemental,okbsejj-uxcc-yet 1 ea feeding tube DAILY@1100 08/04/20 11/05/23 History 14 gram-230 kcal/45 mL liquid pkt (Xtracal Plus) nebulizers #1 ea 11/01/20 08/20/23 Rx miscellaneous medical supply 1 ea miscellaneous ONCE #1 ea 12/06/20 08/20/23 Rx miscellaneous medical supply 1 ea miscellaneous ONCE #1 ea 12/06/20 08/20/23 Rx miscellaneous medical supply 1 ea miscellaneous ONCE #180 ea 01/03/21 08/20/23 Rx miscellaneous medical supply #30 ea 01/31/21 08/20/23 Rx ([place] [facility] Tray) Miscellaneous Pulmonary Supply #1 ea 12/23/21 08/20/23 Rx albuterol sulfate 2.5 mg/3 mL 2.5 mg continuous nebulization TID 10/08/22 11/05/23 History (0.083 %) solution for nebulization diaper,brief,adult,disposable (Day #180 ea 11/04/22 08/20/23 Rx and Night Brief, Large) disposable gloves #100 ea 11/04/22 08/20/23 Rx incontinence pad, liner, disp #20 ea 11/04/22 08/20/23 Rx incontinence pad, liner, disp #75 ea 11/04/22 08/20/23 Rx cetirizine 10 mg tablet 10 mg feeding tube QAM #90 tabs 12/05/22 11/05/23 Rx Repair or Replacement of Hospital #1 ea 12/26/22 08/20/23 Rx Bed nebulizer accessories #1 ea 02/04/23 08/20/23 Rx nitrofurantoin macrocrystal 50 mg 50 mg feeding tube DAILY #90 caps 02/12/23 11/05/23 Rx capsule albuterol sulfate 2.5 mg/3 mL 2.5 mg (3 mL) inhalation Q4H PRN 06/01/23 11/05/23 Rx (0.083 %) solution for nebulization Wheezing/ shortness of breath #540 mL budesonide 0.5 mg/2 mL suspension 0.5 mg (2 mL) inhalation BID #120 07/09/23 11/05/23 Rx for nebulization mL lidocaine-prilocaine 2.5 %-2.5 % See Rx Instructions .Route 08/12/23 11/05/23 Rx topical cream .COMPLEX #30 grams baclofen 20 mg tablet 20 mg feeding tube TID 30 days #90 08/20/23 11/05/23 Rx tabs clonazepam 0.5 mg disintegrating 0.5 mg feeding tube DIRECTED 08/20/23 11/05/23 Rx tablet PRN PROLONGED SEIZURES #30 tabs fluoxetine 20 mg tablet 20 mg feeding tube QDL #30 tabs 08/20/23 11/05/23 Rx valproic acid (as sodium salt) 250 550 mg (11 mL) feeding tube TID 08/20/23 11/05/23 Rx mg/5 mL oral solution #990 mL trazodone 50 mg tablet 50 mg feeding tube HS #90 tabs 10/28/23 11/05/23 Rx polyethylene glycol 3350 17 17 g feeding tube DAILY 11/05/23 11/05/23 History gram/dose oral powder zonisamide 100 mg capsule 100 mg HS 11/05/23 11/05/23 History zonisamide 100 mg capsule 200 mg feeding tube QAM 11/05/23 11/05/23 History amoxicillin 875 mg-potassium 1 tab feeding tube BID #10 tabs 11/06/23 Rx clavulanate 125 mg tablet sodium chloride 7 % for 4 ml inhalation BID Other #240 mL 11/06/23 11/05/23 Rx nebulization Patient History Medical History Transaminitis Multiple tracheobronchial mucus plugs Acute on chronic respiratory failure with hypoxemia Abnormal LFTs Thrombocytopenia Sepsis Surgical History History of tracheostomy #6 [place] 09/10/2020 Family History Brother Asthma Other Coronary heart disease Family history non-contributory Hypertension Social History Smoking Status: Never smoker Second Hand Exposure: No; Do You Dip or Chew Tobacco: No; Hx Alcohol Use: No Hx Substance Use: No Preferred Language: Mauritanian Communication Ability: Impaired Communication Ability Comment: Pt is non-verbal at baseline Assessment Nurse Practitioner Required: No Beliefs That Will Affect Care: None marital status: Single Current Living Situation: Family Current Living Situation Comment: home with mom and home health nurses Feels Safe at Home: Yes Assistive Devices: Hospital Bed, Lift Chair, Scooter/Electric Scooter, Wheelchair and Other Physical Exam Physical Exam: NAD Trach site c/d//i CTAB Results & Data Vital Signs (Past 12 Hours) Vital Signs Temp Pulse Resp BP Pulse Ox O2 Del Method FiO2 11/06/23 07:00 122 H 24 95 35 11/06/23 06:00 101/80 11/06/23 06:00 110 H 29 H 97 11/06/23 05:06 117 H 15 97 11/06/23 05:00 94/63 L 11/06/23 04:48 110 H 16 98 11/06/23 04:24 100 H 22 97 35 11/06/23 04:03 108 H 37 H 97 11/06/23 04:00 93/68 L 11/06/23 04:00 93/68 L 11/06/23 03:57 36.9 C 11/06/23 03:57 35 11/06/23 03:48 100 H 0 L 94 11/06/23 03:00 98/60 L 11/06/23 03:00 102 H 0 L 91 11/06/23 02:00 109 H 3 L 91 11/06/23 02:00 105/63 11/06/23 02:00 105/63 11/06/23 01:06 114 H 22 91 11/06/23 01:00 106/62 11/06/23 00:57 110 H 22 91 11/06/23 00:30 107/61 11/06/23 00:30 107/61 11/06/23 00:30 107/61 11/06/23 00:24 117 H 25 H 94 11/06/23 00:03 109 H 23 107/61 93 11/06/23 00:00 35 11/05/23 23:33 114 H 11/05/23 23:15 121 H 31 H 92 11/05/23 23:09 Trach Collar 11/05/23 22:51 37.0 C 11/05/23 22:30 132 H 34 H 94 35 11/05/23 22:00 129 H 35 H 98 11/05/23 21:34 107/65 11/05/23 21:06 123 H 41 H 98
--- NOTE | 2023-11-06 08:22 | XRay Report ---
XR chest 1V portable CLINICAL HISTORY: f/u TECHNIQUE: Single frontal radiograph of the chest was obtained. Comparison: Comparison is made to chest radiograph 11/05/2023 FINDINGS: Left port catheter is seen. The cardiomediastinal silhouette is normal. Left basilar airspace opacity is seen. Small left pleural effusion. IMPRESSION: Left basilar airspace opacity with adjacent pleural effusion, unchanged. ACT 112: Negative or not required by law. Electronically signed by: Raudel Rich M.D. 11/06/2023 8:21 AM
[2023-11-06] MEDS: MAGNESIUM SULFATE / D5W 1 GM/100 ML BAG IV ONE (08:31)
[2023-11-06] MEDS: POTASSIUM CHLORIDE / WTR 20 MEQ/100 ML PLCT IV ONE (08:31)
[2023-11-06] MEDS: POLYETHYLENE (MIRALAX) 17 GM PACK PEG SCH (08:32)
[2023-11-06] MEDS: CETIRIZINE HCL 10 MG TABLET PO SCH (08:32)
[2023-11-06] MEDS: nitrofurantoin macrocrystaL 50 MG CAP PO SCH (08:49)
[2023-11-06] MEDS: ZONISAMIDE 100 MG CAPSULE PO SCH (08:49)
[2023-11-06] MEDS ORDERED: ENTERAL FEEDING GT SCH (11:00)
[2023-11-06] MEDS ORDERED: [UNRECOGNIZED DRUG - OTHER] PEG SCH ×2 (11:00)
[2023-11-06] MEDS ORDERED: ENTERAL FEEDING PEG SCH ×2 (11:00)
[2023-11-06] MEDS ORDERED: [UNRECOGNIZED DRUG - OTHER] GT SCH (11:00)
[2023-11-06] MEDS: DEXTROSE 50% 50 ML SYRINGE IV ONE (11:40)
[2023-11-06 12:50] VITALS: RESP 42; TEMP 98.2; O2SAT 96
[2023-11-06 13:18] VITALS: BP 108/73; PULSE 127
--- NOTE | 2023-11-06 13:38 | Discharge Summary ---
Discharge Summary Date of Service November 06, 2023 Principal Dx & Hospital Course #1 = Principal Diagnosis (1) Enterovirus infection: Enterovirus (+) on arrival, cause of her recent respiratory distress, increased sputum production. May have acute sinusitis as per PULM Improved with supportive care Treat with Augmentin bid x 5 days for acute sinusitis on discharge as per my d/w PULM and ID (2) Sepsis: Pulmonary source; tachycardic, tachypneic, and hypotensive in the ED Lactate and procalcitonin unremarkable Blood cultures drawn-NGTD Trach sputum cx collected but pending at time of discharge. Given rapid improvement without any antibiotics being given, doubt bacterial cause of sepsis However, treating with Augmentin for sinusitis as above IV bolus with NSS 1000 mL + LR 500 mL to meet ideal body weight 30 cc/kg was giv en and vitals improved, no further fevers Follow current blood/sputum cultures after discharge (3) Thrombocytopenia: had this in 08/2023 at 100, now lower in 70s -could be related to depakote vs viral infection, or combo of both. 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 home pulse ox is normally around 98%+ On the morning of 11/04, it was around 95%; no desaturation stable, uses vent at nighttime (6) Quadriplegic cerebral palsy: Chronic contractures Supportive care, frequent turning, repositioning continue home baclofen (7) Tracheostomy status: Tracheostomy last changed on Friday 11/03 Continue nebulized hypertonic saline Daily tracheostomy care (8) Seizure disorder: Valproic acid level elevated at 142 but was drawn 2 hours after her AM dose However, platelets were low in 08/2023 and now lower likely due to acute viral illness D/w her Neurologist-plan to hold depakote doses today, resume tomorrow AM and check valproic acid trough level in 1 week long with CBC-results to PCP and Dr. Rian/Neuro (9) S/P percutaneous endoscopic gastrostomy (PEG) tube placement: PEG tube feeding (10) Bronchiectasis: Chronic DuoNeb QID Hypertonic neb BID Plan Disposition: dc to home, much improved. VTE PPx: SCDs; held chemical DVT PPx in setting of new thrombocytopenia Notes For Next Care Provider Check CBC, valproic acid level in 1 week Medication Changes From Visit Added Augmentin 875mg po bid x 5 days Admission HPI Per Admitting Provider Selvin is a 28-year-old female with PMH of quadriplegic cerebral palsy, chronic respiratory failure with hypoxia and hypercapnia, seizure disorder, anxiety, depression, Pseudomonas colonization, and bronchiectasis. She presented on 11/04 for worsening yellow secretions from her trach and tachycardia. Patient's nurse (Griselda) is at bedside and provides history. She reports that the patient did have some yellow secretions suctioned on Thursday, however this is not abnormal for her. Then yesterday, she began to cough and have yellow secretions in her trach. She was also complaining of pain and began crying. Patient is unable to indicate where her pain is at. She was given ibuprofen and calm down, as well as some Tylenol last night. Patient did not tolerate her vent last night, which is usually a telltale sign that something is wrong. No fever or temperature overnight. Patient took her regular morning medications today; no recent change in medications. No recent antibiotic use. No sick contacts. She is not on supplemental oxygen at baseline, but does not have it at home and uses it as needed. Patient is hypotensive at 89/65, tachycardic at 109 bpm, tachypneic at 36 at time of admission. SpO2 93% on trach. ED course: Rocephin 2000 mg IV DuoNeb 3 mL NSS 500 mL IV Unable to assess ROS. Discharge Exam Constitutional + language barrier; no acute distress Neck trach in place Respiratory normal respiratory effort; no respiratory distress Auscultation: lungs clear to auscultation bilaterally Cardiovascular RRR, no murmur, no edema Neurologic contractures arms nad legs Psychiatric Orientation: alert; + not oriented x 3 Discharge Plan Discharge Items Patient Disposition: Home - Home Health Services Reason For Visit: PNA Discharge Diagnosis: Entero/Rhinovirus Acute on chronic respiratory failure-resolved Thrombocytopenia Acute sinusitis-suspected Elevated valproic acid level Condition on Discharge: Good Activity: Resume your previous activity Non-emergency contact: Primary Care Provider Call non-emergency contact if: you have any medication questions, your symptoms worsen and you have a fever Follow-up/Referrals: Janet Pearce MD [Primary Care Provider] - (Follow up within 1-2 weeks) Diet: Nothing by Mouth Diet Comment: tube feeds Ambulatory Orders: Complete Blood Count with Diff (Routine) Timeframe: 20231112 Location: Determined by Patient Ordered By: Bella Vera Valproic Acid (Routine) Timeframe: 20231112 Location: Determined by Patient Ordered By: Bella Vera Add Attending Provider Instructions: Please take the Augmentin twice a day x 5 days for a suspected sinus infection. Your depakote level was elevated, but this may have been because the lab value was drawn 2 hours after taking a dose of the medicine. Dr. Modi recommends HOLDING the rest of today's doses and then resuming it tomorrow. Your platelet count has also been running low which can be a side effect of depakote, but can also occur as a result of a viral infection like you currently have. Please have the mobile lab check a valproic acid level and a CBC on the morning of 11/12/23. The labs should be drawn before the morning dose of Depakote is given. Pending Studies at Discharge: Yes (Final blood and sputum/trach culture) Stand-Alone Forms: [facility] Medications and DC Order Prescriptions: New amoxicillin-pot clavulanate 875-125 mg tablet 1 tab feeding tube BID Qty: 10 0RF Continued acetaminophen 160 mg/5 mL liquid 640 mg PO Q6H PRN (Reason: fever or pain) Qty: 473 5RF (DME) Miscellaneous Medical Supply (Hospital Bed) See Rx Instructions .Route .MEDSUPPLY Qty: 1 0RF Rx Instructions: 1 set; replacement pads for side rails on hospital bed (DME) nebulizers [facility] [place] See Rx Instructions .Route Qty: 1 0RF Rx Instructions: Nebulizer and nebulizer supplies Hers is broken beyond repair miscellaneous medical supply [facility] [place] 1 ea miscellaneous ONCE Qty: 180 11RF Rx Instructions: ADULT LARGE INCONTINENT PANTS QTY 180 (DME) [place] Tracheostomy Care Tray Mis See Rx Instructions .Route Qty: 30 5RF Rx Instructions: Trach cleaning kit (DME) Miscellaneous Pulmonary Supply Mis See Rx Instructions .Route Qty: 1 0RF Rx Instructions: Replace current pulse oximeter (DME) incontinence pad, liner, disp Pad See Rx Instructions .ROUTE .MEDSUPPLY Qty: 75 11RF Rx Instructions: 20 under pads and 75 liners (DME) Day and Night Brief, Large Misc See Rx Instructions .ROUTE .MEDSUPPLY Qty: 180 11RF Rx Instructions: girls get changed 6-8 x daily (DME) disposable gloves Misc See Rx Instructions .ROUTE .MEDSUPPLY Qty: 100 0RF Rx Instructions: As directed G80.9 (DME) incontinence pad, liner, disp Pad See Rx Instructions .ROUTE .MEDSUPPLY Qty: 20 0RF Rx Instructions: As directed G80.9 cetirizine 10 mg tablet 10 mg feeding tube QAM Qty: 90 3RF (DME) Repair or Replacement of Hospital Bed See Rx Instructions .Route .MEDSUPPLY Qty: 1 0RF Rx Instructions: Repair or replace side rails and padding (DME) nebulizer accessories Misc See Rx Instructions .Route Qty: 1 0RF Rx Instructions: As directed nitrofurantoin macrocrystal 50 mg capsule 50 mg feeding tube DAILY Qty: 90 3RF albuterol sulfate 2.5 mg /3 mL (0.083 %) solution for nebulization 2.5 mg inhalation Q4H PRN (Reason: Wheezing/ shortness of breath) Qty: 540 5RF budesonide 0.5 mg/2 mL suspension for nebulization 0.5 mg inhalation BID Qty: 120 11RF lidocaine-prilocaine 2.5-2.5 % cream See Rx Instructions .ROUTE .COMPLEX Qty: 30 1RF Rx Instructions: Use as needed when accessing port; trazodone 50 mg tablet 50 mg feeding tube HS Qty: 90 3RF miscellaneous medical supply [facility] [place] 1 ea miscellaneous ONCE Qty: 1 0RF Rx Instructions: CORRUGATED TUBING FOR TRACH COLLAR 100 FT. miscellaneous medical supply [facility] [place] 1 ea miscellaneous ONCE Qty: 1 0RF Rx Instructions: HME (HEAT MOISTURE EXCHANGERS) QTY: 30 baclofen 20 mg tablet 20 mg feeding tube TID 30 Days Qty: 90 11RF clonazepam 0.5 mg tablet,disintegrating 0.5 mg feeding tube DIRECTED PRN (Reason: PROLONGED SEIZURES) Qty: 30 5RF Rx Instructions: take 1 to 2 tablets by mouth daily, for prolonged seizures fluoxetine 20 mg tablet 20 mg feeding tube QDL Qty: 30 11RF Boost 0.04 gram- 1 kcal/mL Liquid 1.5 ea PO QID@07,1130,15,19 Rx Instructions: 350mL via PEG tube at 400mL/hr at 0700, 1130, 1500, 1900 water Liquid 120 ea PO QID@07,1130,15,19 Rx Instructions: 120mL water flush via PEG before and after each bolus tube feed Xtracal Plus 14 gram-230 kcal/45 mL liquid in packet 1 ea feeding tube DAILY@1100 albuterol sulfate 2.5 mg /3 mL (0.083 %) solution for nebulization 2.5 mg continuous nebulization TID Rx Instructions: per home nurse,pt has 2 orders for albuterol. One to use three times daily, 2nd order is PRN polyethylene glycol 3350 17 gram/dose powder 17 g feeding tube DAILY Rx Instructions: TAKE 17 GRAMS DISSOLVED IN WATER VIA FEEDING TUBE DAILY zonisamide 100 mg capsule 200 mg feeding tube QAM Rx Instructions: - TAKE 2 CAPS EVERY MORNING AND 1 CAP AT BEDTIME; zonisamide 100 mg Capsule 100 mg HS Rx Instructions: feeding tube Changed sodium chloride 7 % solution for nebulization 4 ml inhalation BID Qty: 240 3RF Held ibuprofen 100 mg/5 mL suspension See Rx Instructions PO Q6H PRN (Reason: fever or pain) Qty: 473 5RF Hold Instructions: Resume on 11/13/23. Hold until repeat platelet count is drawn/resulted Dose Instruction: 10-20mL PO Q6H PRN; Rx Instructions: 10-20mL PO Q6H PRN; valproic acid (as sodium salt) 250 mg/5 mL solution 550 mg feeding tube TID Qty: 990 11RF Hold Instructions: Resume on 11/07/23. Discharge Orders: Discharge Order (Routine); Ordered 11/06/23 Ordered By: Bella Vera Admission Data Admit Date/Time: 11/05/23 11:10 Attending Provider: Bella Vera Admit Provider: Ray Bocanegra Primary Care Provider: Janet Pearce Other Providers: Ray Bocanegra; Katia Davison; Aileen Ahmadi; Zoë Singletary; Alana Wakefield; Vonnie Luis; Tamri Menjivar [facility] Stay Data Consultations 11/05/23 10:23 ED Decision to Admit Stat 11/05/23 11:00 Consult Infectious Diseases Routine Consult Pulmonology Routine Pending Results Patient Have Any Pending Studies at Discharge: Yes (Final blood and sputum/trach culture) Discharge Instructions Given to Patient (Per Discharging Provider) Please take the Augmentin twice a day x 5 days for a suspected sinus infection. Your depakote level was elevated, but this may have been because the lab value was drawn 2 hours after taking a dose of the medicine. Dr. Modi recommends HOLDING the rest of today's doses and then resuming it tomorrow. Your platelet count has also been running low which can be a side effect of depakote, but can also occur as a result of a viral infection like you currently have. Please have the mobile lab check a valproic acid level and a CBC on the morning of 11/12/23. The labs should be drawn before the morning dose of Depakote is given. Total Time Total Time Spent Total Time Spent (In Minutes): 40 min Total Time Includes: Examination of the Patient, Discharge Planning, Medication Reconciliation and Communication With Other Providers Coding Level of Care Code 87203 INP/OBS DISCH >30 MIN Diagnoses Enterovirus infection B34.1 Sepsis A41.9 Sepsis acute organ dysfunction status: unspecified Sepsis type: sepsis due to unspecified organism Thrombocytopenia D69.6 Left lower lobe pneumonia J18.9 Chronic respiratory failure with hypoxia J96.11 Quadriplegic cerebral palsy G80.8 Tracheostomy status Z93.0 Seizure disorder G40.909 S/P percutaneous endoscopic gastrostomy (PEG) tube placement Z93.1 Bronchiectasis J47.9
== END 2023-11-06 14:11 | disposition home health service (06) | DRG 871 ==
LOC: ED 08:10 → 1E 11:10 → SUATTDRO 11:10 → 1E 12:13

== ENCOUNTER 2024-02-12 11:38 | Inpatient (IN) ==
--- NOTE | 2024-02-12 12:11 | XRay Report ---
XR chest 1V portable CLINICAL HISTORY: Sepsis TECHNIQUE: Single frontal radiograph of the chest was obtained. Comparison: Comparison is made to chest radiograph 11/06/2023 FINDINGS: A port catheter is seen. The cardiomediastinal silhouette is normal. Minimal atelectasis is seen in t he bilateral lung bases. No evidence of pleural effusion or pneumothorax. IMPRESSION: Atelectasis without radiographic evidence of pneumonia. ACT 112: Negative or not required by law. Electronically signed by: Raudel Rich M.D. 02/12/2024 12:10 PM
[2024-02-12 12:34] LABS: Base Excess VBG -1.4 mEq/L; HCO3 VBG 23 mmol/L; Oxygen Saturation VBG 71.7 %; PCO2 VBG 36 mmHg (38-50); PO2 VBG 41 mmHg; pH VBG 7.41 (7.36-7.41)
[2024-02-12 12:38] LABS: Basophils # (auto) 0.02 K/uL (0.00-0.20); Basophils % (auto) 0.3 %; Eosinophils # (auto) 0.01 K/uL (0.00-0.50); Eosinophils % (auto) 0.2 %; Hematocrit (blood only) 35.8 % (37.0-47.0); Hemoglobin 12.6 g/dl (12.0-16.0); Immature Granulocytes # (auto) 0.05 K/uL (0.01-0.20); Immature Granulocytes % (auto) 0.8 %; Lymphocytes # (auto) 0.18 K/uL (1.20-3.40); Lymphocytes % (auto) 2.8 %; Mean Corpuscular Hemoglobin 34.1 pg (25.0-34.0); Mean Corpuscular Hgb Conc 35.2 g/dL (32.0-36.0); Mean Corpuscular Volume 96.8 fL (80.0-100.0); Mean Platelet Volume 9.3 fL (9.4-12.4); Monocytes # (auto) 0.72 K/uL (0.11-0.59); Monocytes % (auto) 11.2 %; Neutrophils # (auto) 5.44 K/uL (1.40-6.50); Neutrophils % (auto) 84.7 %; Platelet Count 84 K/uL (130-400); RDW Coefficient of Variation 12.6 % (11.5-14.5); RDW Standard Deviation 44.1 fL (36.4-46.3); White Blood Count 6.42 K/ul (4.8-10.8)
[2024-02-12 12:48] LABS: Alanine Aminotransferase 10 U/L (7-52); Albumin Level 4.2 gm/dl (3.4-5.0); Alkaline Phosphatase 80 U/L (34-104); Anion Gap 8 (3-11); Aspartate Aminotransferase 16 U/L (13-39); BUN Creatinine Ratio 34.9 (10-20); Bilirubin Direct 0.1 mg/dl (0-0.2); Bilirubin,Total 0.3 mg/dl (0.2-1.0); Blood Urea Nitrogen 15 mg/dl (6-23); Calcium 9.3 mg/dl (8.6-10.3); Carbon Dioxide 23 mmol/L (21-32); Chloride 101 mmol/L (98-107); Glucose 85 mg/dl (70-99(Fasting)); Magnesium 1.8 mg/dl (1.7-2.4); Potassium 3.9 mmol/L (3.5-5.1); Sodium 132 mmol/L (136-145); Total Protein 7.1 gm/dl (6.0-8.3)
[2024-02-12 12:54] LABS: Troponin I High Sensitivity < 2.3 pg/ml (0-14)
[2024-02-12] MEDS ORDERED: VANCOMYCIN CONSULT ACTIVE PRN (12:58)
[2024-02-12 13:08] LABS: Partial Thromboplastin Ratio 1.1; Partial Thromboplastin Time 29 Seconds (21-31)
[2024-02-12] MEDS: SODIUM CHLORIDE 0.9% 1,000 ML IV SCH (13:14)
[2024-02-12] MEDS: CEFEPIME 2000MG 2,000 MG/20 ML SYR IV STA (13:15)
[2024-02-12] MEDS: ACETAMINOPHEN 1,000 MG/100 ML VIAL IV STA (13:20)
[2024-02-12] MEDS: VANCOMYCIN HCL 1,000 MG in SODIUM CHLORIDE 0.9% 500 ML IV ONE (13:42)
--- NOTE | 2024-02-12 14:00 | History & Physical Report ---
Date of Service February 12, 2024 Assessment & Plan (1) COVID-19: Plan: 28 y/o female with know PMH of Cerebral palsy and that presented with fever, tachycardia and increase sputum production Positive for COVID with hypoxia Sirs criteria: Hypotension, tachycardia Will admit to PCU (ICU bed due to need of ventilator at night) No leukocytosis, procalcitonin: 0.06, Lactate 2.1 PEG tube with no signs of infections CXR no evidence of consolidation IV dexamethasone 6 mg daily x 10 days IV Remdesivir daily for 5 days Hypotension- BP normally run low 100s. BP 90s/60s. Received 2L of NSS. Goal of 30ml/kg UA: No leukocytes, no nitrates, ketones VBG: pH: 7.41, PO2: 36 , HCO3 S/p Vanco and Cefepime on Ed due to history of pseudomonas colonization. Will discontinue. No signs of bacteria infection at this time. 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 Symptoms started today. Mom and home health nurse at bedside. Sister had similar symptoms, she had been treated as a pneumonia. No reflux, no diarrhea. Hypoxia on ED. Hypotension and tachycardia as well. No fever on Ed, but nurse states that patient had a fever of 101 this morning. She use ventilator at night, no oxygen during the day. No runny nose, or congestion. Caregiver refers urine had been more dirty than usual. she take nitrofurantoin chronically for recurrent UTI Patient had a known past medical history pseudomonas colonization. . Ed course: Cefepime and Vanco given due to this story. 2 L of NSS given due to hypotension. Tylenol for fever. CXR: no signs of pneumonia. No leukocytosis. Lactate acid 2.1. Procal negative. vital signs ED: Hypotension on 92/64, Tachycardia of 120. RR: 33. No fever Allergies Allergy/AdvReac Type Severity Reaction Status Date / Time No Known Allergies Allergy Verified 02/10/23 09:06 Home Medications Medication Instructions Recorded Confirmed Type food supplemt, lactose-reduced 1.5 ea PO QID@07,1130,,07/28/18 02/12/24 History 0.04 gram-1 kcal/mL oral liquid (Boost) water 120 ea PO QID@07,1130,15,07/28/18 02/12/24 History acetaminophen 160 mg/5 mL oral 640 mg (20 mL) PO Q6H PRN fever or 12/21/18 02/12/24 Rx liquid pain #473 mL Miscellaneous Medical Supply #1 ea 02/22/20 08/20/23 Rx (Hospital Bed) nut.tx.,elemental,qmrdzvc-nxih-txu 1 ea feeding tube DAILY@1100 08/04/20 02/12/24 History 14 gram-230 kcal/45 mL liquid pkt (Xtracal Plus) nebulizers #1 ea 11/01/20 08/20/23 Rx miscellaneous medical supply #30 ea 01/31/21 08/20/23 Rx ([facility] Tracheostomy Care Tray) Miscellaneous Pulmonary Supply #1 ea 12/23/21 08/20/23 Rx albuterol sulfate 2.5 mg/3 mL 2.5 mg continuous nebulization TID 10/08/22 02/12/24 History (0.083 %) solution for nebulization diaper,brief,adult,disposable (Day #180 ea 11/04/22 08/20/23 Rx and Night Brief, Large) disposable gloves #100 ea 11/04/22 08/20/23 Rx incontinence pad, liner, disp #20 ea 11/04/22 08/20/23 Rx incontinence pad, liner, disp #75 ea 11/04/22 08/20/23 Rx Repair or Replacement of Hospital #1 ea 12/26/22 08/20/23 Rx Bed nebulizer accessories #1 ea 02/04/23 08/20/23 Rx budesonide 0.5 mg/2 mL suspension 0.5 mg (2 mL) inhalation BID #120 07/09/23 02/12/24 Rx for nebulization mL baclofen 20 mg tablet 20 mg feeding tube TID 30 days #90 08/20/23 02/12/24 Rx tabs clonazepam 0.5 mg disintegrating 0.5 mg feeding tube DIRECTED 08/20/23 02/12/24 Rx tablet PRN PROLONGED SEIZURES #30 tabs fluoxetine 20 mg tablet 20 mg feeding tube QDL #30 tabs 08/20/23 02/12/24 Rx valproic acid (as sodium salt) 250 550 mg (11 mL) feeding tube TID 08/20/23 02/12/24 Rx mg/5 mL oral solution #990 mL zonisamide 100 mg capsule 100 mg HS 11/05/23 02/12/24 History zonisamide 100 mg capsule 200 mg feeding tube QAM 11/05/23 02/12/24 History sodium chloride 7 % for 4 ml inhalation BID Other #240 mL 11/06/23 02/12/24 Rx nebulization albuterol sulfate 2.5 mg/3 mL 2.5 mg (3 mL) inhalation Q4H PRN 11/30/23 02/12/24 Rx (0.083 %) solution for nebulization Wheezing/ shortness of breath #540 mL cetirizine 10 mg tablet 10 mg feeding tube DAILY #90 tabs 01/29/24 02/12/24 Rx nitrofurantoin macrocrystal 50 mg 50 mg feeding tube DAILY #90 caps 01/29/24 02/12/24 Rx capsule trazodone 50 mg tablet 50 mg feeding tube HS #90 tabs 01/29/24 02/12/24 Rx ibuprofen 100 mg/5 mL oral 100 mg PO UD PRN fever or pain 02/12/24 02/12/24 History suspension lidocaine-prilocaine 2.5 %-2.5 % 1 applic topical UD PRN Other 02/12/24 02/12/24 History topical cream miscellaneous medical supply 02/12/24 02/12/24 History miscellaneous medical supply 02/12/24 02/12/24 History miscellaneous medical supply 02/12/24 02/12/24 History polyethylene glycol 3350 17 17 g feeding tube DAILY 02/12/24 02/12/24 History gram/dose oral powder Past Med/Surg History Problem List (Updated 02/12/24 @ 15:03 by Antione Mercado MD) Sepsis (Acute) COVID-19 (Acute) Hypotension, chronic Thrombocytopenia Tracheostomy status S/P percutaneous endoscopic gastrostomy (PEG) tube placement Chronic respiratory failure with hypoxia Port-A-Cath in place (11/20/22) Insertion of Mediport, Left Subclavian (Not Applicable) - Ankit Tavera, Anemia (Chronic) Cerebral palsy (Acute) Cholecystitis without calculus Acute respiratory failure with hypoxia Sepsis due to pneumonia Bronchiectasis Bilateral pneumonia (Acute) Muscle spasticity 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 plugging of bronchi 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) Insomnia (Chronic) Depression with anxiety (Chronic) Allergic rhinitis (Chronic) Seizure disorder (Chronic) Chronic respiratory failure with hypoxia and hypercapnia (Chronic) Medical History Transaminitis Multiple tracheobronchial mucus plugs Acute on chronic respiratory failure with hypoxemia Abnormal LFTs Thrombocytopenia Sepsis Surgical History History of tracheostomy #6 [place] 09/10/2020 Family History Brother Asthma Other Coronary heart disease Family history non-contributory Hypertension Social History Smoking Status: Never smoker Second Hand Exposure: No; Do You Dip or Chew Tobacco: No; Hx Alcohol Use: No Hx Substance Use: No Preferred Language: [place] Communication Ability: Impaired Communication Ability Comment: 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 Beliefs That Will Affect Care: None marital status: Single Current Living Situation: Family Current Living Situation Comment: home with mom and home health nurses Feels Safe at Home: Yes Assistive Devices: Hospital Bed, Lift Chair, Scooter/Electric Scooter, Wheel chair and Other Review of Systems Review of Systems: as per HPI Physical Exam Constitutional: + thin, + physical limitations and + fra il appearing; no acute distress Neck: Tracheo in place Respiratory: No respiratory distress, no wheezing, lungs clear of auscultations Increase secretion production Cardiovascular: Rate/Rhythm: regular rate, regular rhythm and + tachycardic Heart Sounds: normal S1 and normal S2 Extremities: no edema Gastrointestinal (Abdomen): Inspection/Auscultation: normal bowel sounds; abdomen not distended PEG tube on place, no erythema, no discharge Skin: no rashes, warm and dry Results & Data Results & Data Vital Signs (Past 12 Hours) Vital Signs Temp Pulse Pulse Resp BP BP Pulse Ox 02/12/24 13:18 104 H 33 H 94/64 L 94 02/12/24 12:33 24 93 02/12/24 12:00 115 H 39 H 92/64 L 91 02/12/24 11:59 124 H 02/12/24 11:57 90 02/12/24 11:53 102/69 02/12/24 11:53 120 H 38 H 102/69 90 02/12/24 11:42 36.6 C 132 H 30 H 95 O2 Del Method 02/12/24 13:18 02/12/24 12:33 02/12/24 12:00 02/12/24 11:59 02/12/24 11:57 Room Air 02/12/24 11:53 02/12/24 11:53 Room Air 02/12/24 11:42 Room Air Supervising Physician Co-Signing Physician Notes Patient seen and examined, chart reviewed, case discussed with Dr. Timi Alvarado MD and I agree with the assessment and plan as above except as otherwise noted Labs and images reviewed History/course: Selvin is a 28-year-old female with quadriplegic CP, chronic respiratory failure with hypoxia/hypercapnia, seizure disorder, anxiety/depression, chronic Pseudomonas colonization, bronchiectasis and multiple admits for respiratory illnesses in the past who presents with 1 day of cough, congestion, increased sputum production with change in quality to a thick yellow color similar to prior infections, fever of around 100 F and general unwellness. Patient's sister has been sick at home in the last week with similar symptoms, Selvin's symptoms began today. Her blood pressure is typically 90low 100s, BP has been 90s/60s in the ER. Additionally lactate is elevated in the ER 2.1. Her feeds through her PEG tube have not changed. There is no leukocytosis Bio fire and UA are pending, has not had any urinary symptoms but has had her period which is slightly unusual for her. Procalcitonin is pending Blood cultures, sputum culture ordered Given history of recurrent bacterial infections cefepime and vancomycin were given in the ER. Chest x-ray does not show any evidence of lobar pneumonia. Symptoms and recent illness with similar symptoms in her system are most likely due to a viral illness. Bio fire is pending. Agree that admission and observation overnight is warranted, especially given her lactate is elevated. Her blood gas is with a compensated respiratory alkalosis. Will defer additional antibiotics unless she deteriorates and or evidence of bacterial infection is seen. Patient is on a vent at night, she does not need oxygen at baseline. Plan: Acute hypoxic respiratory failure, sepsis due to COVID-pneumonia BP normally 90low 100s however has been 8090s in the last day. Heart rate typically low 100s, 104 on admission. Nutrition is via PEG tube which has not changed, dietary is consulted and following Is positive for COVID on bio fire. Remaining BioFire was negative. Procalcitonin is normal. Suspect viral URI due to COVID, no signs of bacterial superinfection. Will discontinue further antibiotics at this time. Patient has had COVID with 1 day of symptoms, is on oxygen in the ER on blow- by with oxygen saturation 94-98%. Dexamethasone is indicated, ordered. Reviewed risks/benefits of remdesivir with patient's family, on shared decision making would like to treat with remdesivir on admission. No SABA or LFT ab normality is present. While patient is on a nighttime vent at baseline and is slightly hypoxic she is not with severe respiratory failure or change on admission. Do not feel that risks outweigh the benefits of baricitinib/Toci on admission, and she is at high risk of superinfection given her history of Pseudomonas colonizationCRP added and trended Blood culture, sputum cultures ordered on initial ER evaluation are pending Patient has been ordered 2 L crystalloid to meet sepsis goals of a BW/IBW 1596/1840 cc. Lactate 2.1 mildly elevated on admission. Repeat pending after completion of 1500 cc of ordered crystalloid. No evidence of congestive failure Continue routine trach care, suction as needed Tracheostomy status Patient's ventilator settings have not changed. Patient does not have her home ventilator available with her on admission, will be admitted to 1 E for ventilator availability. Does not require an neck band maker consultation at time of admission. She does not have a leukocytosis. While she is tachycardic and mildly hypotensive these are also within the range of her normal baseline vitals in the past For ventilator may use the following things on admission and will adjust with respiratory as needed: ACVC, PEEP 5. FiO2 35%. Goal tidal volume 350. Addendum 1700: On reassessment patient continues to be intermittently hypotensive 80s/90s however tachycardia has decreased. Remains on trach collar. Her lactate has normalized at 1.4. Nutrition following for PEG feeds. Resident Activity Tracking Resident Involvement: Resident Care Provided Care Provided: Adult Hospital Medicine
[2024-02-12 14:01] LABS: Adenovirus PCR Not Detected (NotDetected); Bordetella parapertussis PCR Not Detected (NotDetected); Bordetella pertussis PCR Not Detected (NotDetected); Chlamydia pneumoniae PCR Not Detected (NotDetected); Coronavirus 229E PCR Not Detected (NotDetected); Coronavirus CoV-2 (COVID19)PCR DETECTED (NotDetected); Coronavirus HKU1 PCR Not Detected (NotDetected); Coronavirus NL63 PCR Not Detected (NotDetected); Coronavirus OC43PCR Not Detected (NotDetected); Human Metapneumovirus PCR Not Detected (NotDetected); Influenza A PCR Not Detected (NotDetected); Influenza B PCR Not Detected (NotDetected); Mycoplasma pneumoniae PCR Not Detected (NotDetected); Parainfluenza Virus 1 PCR Not Detected (NotDetected); Parainfluenza Virus 2 PCR Not Detected (NotDetected); Parainfluenza Virus 3 PCR Not Detected (NotDetected); Parainfluenza Virus 4 PCR Not Detected (NotDetected); Respiratory Syncytial VirusPCR Not Detected (NotDetected); Rhinovirus/Enterovirus PCR Not Detected (NotDetected)
[2024-02-12 14:19] LABS: Appearance Urine Clear (Clear); Bacteria Urine Automated None Seen (None Seen); Bilirubin Urine Negative (Negative); Blood Urine 1+ (Negative); Cast Urine Automated 0-2 /lpf (0-2); Color Urine Dark Yellow; Glucose Urine UA Negative (Negative); Ketones Urine 1+ (Negative); Leukocyte Esterase Urine Negative (Negative); Mucus Urine Present (None Prsent); Nitrite Urine Negative (Negative); Protein Urine 1+ (Negative); RBC Urine Automated >20 /hpf (0-2); Specific Gravity Urine 1.032 (1.000-1.030); Urobilinogen Urine Negative (Negative); WBC Urine Automated 0-5 /hpf (0-5)
--- NOTE | 2024-02-12 14:52 | Emergency Department Note ---
History of Present Illness General Chief complaint: Hypertension Stated complaint: HIGH HEART RATE Time Seen by Provider: 02/12/24 11:52 Source: family (Mother) History of Present Illness Provider complaint: Fever 28-year-old female with cerebral palsy presents emergency department with mother for fever. Mother reports fever for the last 2 days. Tmax 100. Mother reports that the patient has been producing more mucus and her heart rate has been high. Home Medications Medication Instructions Recorded Confirmed Type food supplemt, lactose-reduced 1.5 ea PO QID@07,1130,,07/28/18 11/10/23 History 0.04 gram-1 kcal/mL oral liquid (Boost) water 120 ea PO QID@07,1130,,07/28/18 11/10/23 History acetaminophen 160 mg/5 mL oral 640 mg (20 mL) PO Q6H PRN fever or 12/21/18 11/10/23 Rx liquid pain #473 mL ibuprofen 100 mg/5 mL oral See Rx Instructions PO Q6H PRN 12/21/18 11/10/23 Rx suspension fever or pain #473 mL Miscellaneous Medical Supply #1 ea 02/22/20 08/20/23 Rx (Hospital Bed) nut.tx.,elemental,fusbiuj-mqpp-lns 1 ea feeding tube DAILY@1100 08/04/20 11/10/23 History 14 gram-230 kcal/45 mL liquid pkt (Xtracal Plus) nebulizers #1 ea 11/01/20 08/20/23 Rx miscellaneous medical supply 1 ea miscellaneous ONCE #1 ea 12/06/20 11/10/23 Rx miscellaneous medical supply 1 ea miscellaneous ONCE #1 ea 12/06/20 11/10/23 Rx miscellaneous medical supply 1 ea miscellaneous ONCE #180 ea 01/03/21 11/10/23 Rx miscellaneous medical supply #30 ea 01/31/21 08/20/23 Rx ([place] Tracheostomy Care Tray) Miscellaneous Pulmonary Supply #1 ea 12/23/21 08/20/23 Rx albuterol sulfate 2.5 mg/3 mL 2.5 mg continuous nebulization TID 10/08/22 11/10/23 History (0.083 %) solution for nebulization diaper,brief,adult,disposable (Day #180 ea 11/04/22 08/20/23 Rx and Night Brief, Large) disposable gloves #100 ea 11/04/22 08/20/23 Rx incontinence pad, liner, disp #20 ea 11/04/22 08/20/23 Rx incontinence pad, liner, disp #75 ea 11/04/22 08/20/23 Rx Repair or Replacement of Hospital #1 ea 12/26/22 08/20/23 Rx Bed nebulizer accessories #1 ea 02/04/23 08/20/23 Rx budesonide 0.5 mg/2 mL suspension 0.5 mg (2 mL) inhalation BID #120 07/09/23 11/10/23 Rx for nebulization mL lidocaine-prilocaine 2.5 %-2.5 % See Rx Instructions .Route 08/12/23 11/10/23 Rx topical cream .COMPLEX #30 grams baclofen 20 mg tablet 20 mg feeding tube TID 30 days #90 08/20/23 11/10/23 Rx tabs clonazepam 0.5 mg disintegrating 0.5 mg feeding tube DIRECTED 08/20/23 11/10/23 Rx tablet PRN PROLONGED SEIZURES #30 tabs fluoxetine 20 mg tablet 20 mg feeding tube QDL #30 tabs 08/20/23 11/10/23 Rx valproic acid (as sodium salt) 250 550 mg (11 mL) feeding tube TID 08/20/23 11/10/23 Rx mg/5 mL oral solution #990 mL zonisamide 100 mg capsule 100 mg HS 11/05/23 11/10/23 History zonisamide 100 mg capsule 200 mg feeding tube QAM 11/05/23 11/10/23 History amoxicillin 875 mg-potassium 1 tab feeding tube BID #10 tabs 11/06/23 11/10/23 Rx clavulanate 125 mg tablet sodium chloride 7 % for 4 ml inhalation BID Other #240 mL 11/06/23 11/10/23 Rx nebulization albuterol sulfate 2.5 mg/3 mL 2.5 mg (3 mL) inhalation Q4H PRN 11/30/23 Rx (0.083 %) solution for nebulization Wheezing/ shortness of breath #540 mL sodium chloride 7 % for 4 ml inhalation BID #240 mL 12/04/23 Rx nebulization cetirizine 10 mg tablet 10 mg feeding tube DAILY #90 tabs 01/29/24 01/29/24 Rx nitrofurantoin macrocrystal 50 mg 50 mg feeding tube DAILY #90 caps 01/29/24 01/29/24 Rx capsule polyethylene glycol 3350 17 See Rx Instructions .Route 01/29/24 01/29/24 Rx gram/dose oral powder .COMPLEX #1,530 grams trazodone 50 mg tablet 50 mg feeding tube HS #90 tabs 01/29/24 01/29/24 Rx Allergies Allergy/AdvReac Type Severity Reaction Status Date / Time No Known Allergies Allergy Verified 02/10/23 09:06 Past Med/Surg History Problem List (Updated 02/12/24 @ 15:03 by Antione Mercado MD) Sepsis (Acute) COVID-19 (Acute) Hypotension, chronic Thrombocytopenia Tracheostomy status S/P percutaneous endoscopic gastrostomy (PEG) tube placement Chronic respiratory failure with hypoxia Port-A-Cath in place (11/20/22) Insertion of Mediport, Left Subclavian (Not Applicable) - Ankit Tavera, Anemia (Chronic) Cerebral palsy (Acute) Cholecystitis without calculus Acute respiratory failure with hypoxia Sepsis due to pneumonia Bronchiectasis Bilateral pneumonia (Acute) Muscle spasticity 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 plugging of bronchi 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) Insomnia (Chronic) Depression with anxiety (Chronic) Allergic rhinitis (Chronic) Seizure disorder (Chronic) Chronic respiratory failure with hypoxia and hypercapnia (Chronic) Medical History Transaminitis Multiple tracheobronchial mucus plugs Acute on chronic respiratory failure with hypoxemia Abnormal LFTs Thrombocytopenia Sepsis Surgical History History of tracheostomy #6 [place] 09/10/2020 Family History Brother Asthma Other Coronary heart disease Family history non-contributory Hypertension Social History Smoking Status: Never smoker Second Hand Exposure: No; Do You Dip or Chew Tobacco: No; Hx Alcohol Use: No Hx Substance Use: No Preferred Language: Panamanian Communication Ability: Impaired Communication Ability Comment: Pt is non-verbal at baseline 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: No Beliefs That Will Affect Care: None marital status: Single Current Living Situation: Family Current Living Situation Comment: home with mom and home health nurses Feels Safe at Home: Yes Assistive Devices: Hospital Bed, Lift Chair, Scooter/Electric Scooter, Wheelchair and Other Physical Exam Vital Signs Vital Signs - 24 hr 02/12/24 11:42 02/12/24 11:53 02/12/24 11:53 Temperature 36.6 C Temperature Source Temporal Artery Scan Pulse Rate 132 H Pulse Rate [Finger] 120 H Pulse Rate from SpO2 Sensor Respiratory Rate 30 H 38 H Respiratory Effort / Characteristics Non-Labored Spontaneous Respiratory Depth Normal Blood Pressure 102/69 Blood Pressure [Right Arm] 102/69 Blood Pressure Mean 76 Blood Pressure Mean [Right Arm] 80 Pulse Oximetry 95 90 Oxygen Delivery Method Room Air Room Air Sepsis Recent Fever Within 48 Hours Yes Sepsis New/Unexplained Change in Mental Status N/A Sepsis Action Taken by Nursing No Action Required 02/12/24 11:57 02/12/24 11:59 02/12/24 12:00 Temperature Temperature Source Pulse Rate 124 H 115 H Pulse Rate [Finger] Pulse Rate from SpO2 Sensor 117 H Respiratory Rate 39 H Respiratory Effort / Characteristics Respiratory Depth Blood Pressure 92/64 L Blood Pressure [Right Arm] Blood Pressure Mean 73 Blood Pressure Mean [Right Arm] Pulse Oximetry 90 91 Oxygen Delivery Method Room Air Sepsis Recent Fever Within 48 Hours Sepsis New/Unexplained Change in Mental Status Sepsis Action Taken by Nursing 02/12/24 12:33 02/12/24 13:18 Temperature Temperature Source Pulse Rate 104 H Pulse Rate [Finger] Pulse Rate from SpO2 Sensor 114 H 104 H Respiratory Rate 24 33 H Respiratory Effort / Characteristics Respiratory Depth Blood Pressure 94/64 L Blood Pressure [Right Arm] Blood Pressure Mean 74 Blood Pressure Mean [Right Arm] Pulse Oximetry 93 94 Oxygen Delivery Method Sepsis Recent Fever Within 48 Hours Sepsis New/Unexplained Change in Mental Status Sepsis Action Taken by Nursing Physical Exam GENERAL: Chronically ill. HENT: Exam performed. - Head: Normocephalic and atraumatic. EYES: Conjunctivae and EOM are normal. Right eye exhibits no discharge. Left eye exhibits no discharge. No scleral icterus. NECK: Tracheostomy in place. CV: Tachycardic rate, regular rhythm, normal heart sounds and intact distal pulses. There is no peripheral edema. Palpable radial pulses bue. PULM/CHEST: Rhonchi bilaterally. ABD: The abdomen is soft. Feeding tube in place. NEURO: At baseline per mother. Course Course 1152: The patient was evaluated in room A11. A complete history and physical exam was performed Cardiac monitoring: An order was placed for continuous cardiac monitoring. The monitor shows a rate of 120 with sinus tachycardia rhythm interpreted by il Sepsis protocols initiated. 1300: Patient's lactic acid is elevated. Tachycardic. Will treat with 30 cc/kg normal saline bolus. Patient has a history of Pseudomonas infections. Cefepime ordered for the patient. Patient will be admitted to the hospitalist service. 1502: Patient is positive for COVID. Discussed with Dr. Bocanegra and he states he will order steroids as needed. Administered Medications Vancomycin HCl 1,000 mg/ (Sodium Chloride) 520 mls @ 200 mls/hr IV NOW ONE Stop: 02/12/24 15:33 Last Admin: 02/12/24 13:42 Dose: 200 mls/hr Documented By: BRIANA Parenteral Electrolytes (Plasma-Lyte A Ph 7.4) 1,000 mls @ 999 mls/hr IV .Q1H1M ONE Stop: 02/12/24 15:18 Last Admin: 02/12/24 14:54 Dose: 999 mls/hr Documented By: MISHA Discontinued Medications Dexamethasone (Dexamethasone Sod Inj 4 Mg/Ml Vial) 6 mg IV NOW STA Stop: 02/12/24 14:19 Last Admin: 02/12/24 14:54 Dose: 6 mg Documented By: IMSHA Acetaminophen (Ofirmev) 1,000 mg in 100 mls @ 400 mls/hr IV NOW STA Stop: 02/12/24 12:27 Last Infusion: 02/12/24 13:42 Dose: Infused Documented By: Admin: 02/12/24 13:20 Dose: 400 mls/hr Documented By: MISHA Sodium Chloride (Nss) 1,000 mls @ 999 mls/hr IV .Q1H1M KENNEDY Stop: 02/12/24 14:15 Last Admin: 02/12/24 14:24 Dose: Not Given Documented By: Infusion: 02/12/24 14:23 Dose: Infused Documented By: Admin: 02/12/24 13:14 Dose: 999 mls/hr Documented By: MISHA Cefepime HCl (Maxipime 2000mg) 2,000 mg in 20 mls @ 5 mls/min IV NOW STA; Protocol Stop: 02/12/24 12:38 Last Admin: 02/12/24 13:15 Dose: 5 mls/min Documented By: MISHA Medical Decision Making Laboratory Data Attestation: I reviewed the patient's lab results. 02/12/24 12:17 02/12/24 12:17 Lab Results 02/12/24 02/12/24 02/12/24 Range/Units 12:17 12:36 12:51 WBC 6.42 (4.8-10.8) K/ul RBC 3.70 L (4.20-5.40) M/uL Hgb 12.6 (12.0-16.0) g/dl Hct 35.8 L (37.0-47.0) % MCV 96.8 (80.0-100.0) fL MCH 34.1 H (25.0-34.0) pg MCHC 35.2 (32.0-36.0) g/dL RDW Std Deviation 44.1 (36.4-46.3) fL RDW Coeff of [place] 12.6 (11.5-14.5) % Plt Count 84 L (130-400) K/uL MPV 9.3 L (9.4-12.4) fL Immature Gran % (Auto) 0.8 % Neut % (Auto) 84.7 % Lymph % (Auto) 2.8 % [place] % (Auto) 11.2 % Eos % (Auto) 0.2 % Baso % (Auto) 0.3 % Neut # (Auto) 5.44 (1.40-6.50) K/uL Lymph # (Auto) 0.18 L (1.20-3.40) K/uL [place] # (Auto) 0.72 H (0.11-0.59) K/uL Eos # (Auto) 0.01 (0.00-0.50) K/uL Baso # (Auto) 0.02 (0.00-0.20) K/uL Immature Gran # (Auto) 0.05 (0.01-0.20) K/uL PT 11.0 (9.0-12.0) Seconds INR 1.0 (0.9-1.1) APTT 29 (21-31) Seconds PTT Ratio 1.1 VBG pH 7.41 (7.36-7.41) VBG pCO2 36 L (38-50) mmHg VBG pO2 41 mmHg VBG HCO3 23 mmol/L VBG O2 Saturation 71.7 % VBG Base Excess -1.4 mEq/L Sodium 132 L (136-145) mmol/L Potassium 3.9 (3.5-5.1) mmol/L Chloride 101 (98-107) mmol/L Carbon Dioxide 23 (21-32) mmol/L Anion Gap 8 (3-11) BUN 15 (6-23) mg/dl Creatinine 0.43 L (0.6-1.2) mg/dl Est Cr Clr Drug Dosing 165.0 ml/min eGFR 136.63 BUN/Creatinine Ratio 34.9 H (10-20) Glucose 85 (70-99(Fasting)) mg/dl Lactate 2.1 H* (0.4-2.0) mmol/L Calcium 9.3 (8.6-10.3) mg/dl Magnesium 1.8 (1.7-2.4) mg/dl Total Bilirubin 0.3 (0.2-1.0) mg/dl Direct Bilirubin 0.1 (0-0.2) mg/dl AST 16 (13-39) U/L ALT 10 (7-52) U/L Alkaline Phosphatase 80 (34-104) U/L Troponin I High Sens < 2.3 (0-14) pg/ml C-Reactive Protein 3.04 H (0-0.5) mg/dl Total Protein 7.1 (6.0-8.3) gm/dl Albumin 4.2 (3.4-5.0) gm/dl Procalcitonin 0.06 (0-0.5) ng/ml Urine Color Dark Yellow Urine Appearance Clear (Clear) Urine pH 7.0 (4.5-7.5) Ur Specific [place] 1.032 H (1.000-1.030) Urine Protein 1+ H (Negative) Urine Glucose (UA) Negative (Negative) Urine Ketones 1+ H (Negative) Urine Blood 1+ H (Negative) Urine Nitrite Negative (Negative) Urine Bilirubin Negative (Negative) Urine Urobilinogen Negative (Negative) Ur Leukocyte Esterase Negative (Negative) Urine WBC (Auto) 0-5 (0-5) /hpf Urine RBC (Auto) >20 H (0-2) /hpf U Hyaline Cast (Auto) 0-2 (0-2) /lpf U Epithel Cells (Auto) 3-5 H (0-2) /hpf Urine Bacteria (Auto) None Seen (None Seen) Urine Mucus Present A (None Prsent) Adenovirus (PCR) Not Detected (NotDetected) B. pertussis DNA (PCR) Not Detected (NotDetected) B.parapertussis DNA PCR Not Detected (NotDetected) C. pneumoniae DNA (PCR) Not Detected (NotDetected) Coronavirus OC43 (PCR) Not Detected (NotDetected) Coronavirus HKU1 (PCR) Not Detected (NotDetected) Coronavirus 229E (PCR) Not Detected (NotDetected) SARS-CoV-2 (PCR) DETECTED A (NotDetected) Coronavirus NL63 (PCR) Not Detected (NotDetected) Human Metapneumovir PCR Not Detected (NotDetected) Influenza Type A (PCR) Not Detected (NotDetected) Influenza Type B (PCR) Not Detected (NotDetected) M. pneumoniae (PCR) Not Detected (NotDetected) Parainfluenza 1 (PCR) Not Detected (NotDetected) Parainfluenza 2 (PCR) Not Detected (NotDetected) Parainfluenza 3 (PCR) Not Detected (NotDetected) Parainfluenza 4 (PCR) Not Detected (NotDetected) RSV (PCR) Not Detected (NotDetected) Entero/Rhino (PCR) Not Detected (NotDetected) Imaging Data Radiologist's Impression: Chest X-Ray 02/12/24 11:52 XR chest 1V portable CLINICAL HISTORY: Sepsis TECHNIQUE: Single frontal radiograph of the chest was obtained. Comparison: Comparison is made to chest radiograph 11/06/2023 FINDINGS: A port catheter is seen. The cardiomediastinal silhouette is normal. Minimal atelectasis is seen in the bilateral lung bases. No evidence of pleural effusion or pneumothorax. IMPRESSION: Atelectasis without radiographic evidence of pneumonia. ACT 112: Negative or not required by law. Electronically signed by: Raudel Rich M.D. 02/12/2024 12:10 PM [facility] Narrative 1152: The patient was evaluated in room A11. A complete history and physical exam was performed Cardiac monitoring: An order was placed for continuous cardiac monitoring. The monitor shows a rate of 120 with sinus tachycardia rhythm interpreted by il Sepsis protocols initiated. 1300: Patient's lactic acid is elevated. Tachycardic. Will treat with 30 cc/kg normal saline bolus. Patient has a history of Pseudomonas infections. Cefepime ordered for the patient. Patient will be admitted to the hospitalist service. 1502: Patient is positive for COVID. Discussed with Dr. Bocanegra and he states he will order steroids as needed. Impression & Plan COVID-19, Sepsis Discharge Plan Visit Data Chief Complaint: Hypertension Stated Complaint: HIGH HEART RATE ED Provider: Antione Mercado Discharge Problem: COVID-19, Sepsis Patient Disposition: Admitted As Inpatient Forms Stand Alone Forms: [facility] Prescriptions Prescriptions: No Action ibuprofen 100 mg/5 mL suspension See Rx Instructions PO Q6H PRN (Reason: fever or pain) Qty: 473 5RF Hold Instructions: Resume on 11/13/23. Hold until repeat platelet count is drawn/resulted Dose Instruction: 10-20mL PO Q6H PRN; Rx Instructions: 10-20mL PO Q6H PRN; acetaminophen 160 mg/5 mL liquid 640 mg PO Q6H PRN (Reason: fever or pain) Qty: 473 5RF (DME) Miscellaneous Medical Supply (Hospital Bed) See Rx Instructions .Route .MEDSUPPLY Qty: 1 0RF Rx Instructions: 1 set; replacement pads for side rails on hospital bed (DME) nebulizers Mis See Rx Instructions .Route Qty: 1 0RF Rx Instructions: Nebulizer and nebulizer supplies Hers is broken beyond repair miscellaneous medical supply [facility] [place] 1 ea miscellaneous ONCE Qty: 180 11RF Rx Instructions: ADULT LARGE INCONTINENT PANTS QTY 180 (DME) [place] Tracheostomy Care Tray Misc See Rx Instructions .Route Qty: 30 5RF Rx Instructions: Trach cleaning kit (DME) Miscellaneous Pulmonary Supply Misc See Rx Instructions .Route Qty: 1 0RF Rx Instructions: Replace current pulse oximeter (DME) incontinence pad, liner, disp Pad See Rx Instructions .ROUTE .MEDSUPPLY Qty: 75 11RF Rx Instructions: 20 under pads and 75 liners (DME) Day and Night Brief, Large Misc See Rx Instructions .ROUTE .MEDSUPPLY Qty: 180 11RF Rx Instructions: girls get changed 6-8 x daily (DME) disposable gloves Misc See Rx Instructions .ROUTE .MEDSUPPLY Qty: 100 0RF Rx Instructions: As directed G80.9 (DME) incontinence pad, liner, disp Pad See Rx Instructions .ROUTE .MEDSUPPLY Qty: 20 0RF Rx Instructions: As directed G80.9 (DME) Repair or Replacement of Hospital Bed See Rx Instructions .Route .MEDSUPPLY Qty: 1 0RF Rx Instructions: Repair or replace side rails and padding (DME) nebulizer accessories Misc See Rx Instructions .Route Qty: 1 0RF Rx Instructions: As directed budesonide 0.5 mg/2 mL suspension for nebulization 0.5 mg inhalation BID Qty: 120 11RF lidocaine-prilocaine 2.5-2.5 % cream See Rx Instructions .ROUTE .COMPLEX Qty: 30 1RF Rx Instructions: Use as needed when accessing port; albuterol sulfate 2.5 mg /3 mL (0.083 %) solution for nebulization 2.5 mg inhalation Q4H PRN (Reason: Wheezing/ shortness of breath) Qty: 540 5RF sodium chloride 7 % solution for nebulization 4 ml inhalation BID Qty: 240 3RF miscellaneous medical supply [facility] [place] 1 ea miscellaneous ONCE Qty: 1 0RF Rx Instructions: CORRUGATED TUBING FOR TRACH COLLAR 100 FT. miscellaneous medical supply [facility] [place] 1 ea miscellaneous ONCE Qty: 1 0RF Rx Instructions: HME (HEAT MOISTURE EXCHANGERS) QTY: 30 baclofen 20 mg tablet 20 mg feeding tube TID 30 Days Qty: 90 11RF clonazepam 0.5 mg tablet,disintegrating 0.5 mg feeding tube DIRECTED PRN (Reason: PROLONGED SEIZURES) Qty: 30 5RF Rx Instructions: take 1 to 2 tablets by mouth daily, for prolonged seizures fluoxetine 20 mg tablet 20 mg feeding tube QDL Qty: 30 11RF valproic acid (as sodium salt) 250 mg/5 mL solution 550 mg feeding tube TID Qty: 990 11RF Hold Instructions: Resume on 11/07/23. cetirizine 10 mg tablet 10 mg feeding tube DAILY Qty: 90 3RF nitrofurantoin macrocrystal 50 mg capsule 50 mg feeding tube DAILY Qty: 90 3RF trazodone 50 mg tablet 50 mg feeding tube HS Qty: 90 3RF polyethylene glycol 3350 17 gram/dose powder See Rx Instructions .ROUTE .COMPLEX Qty: 1530 3RF Dose Instruction: TAKE 17 GRAMS DISSOLVED IN WATER VIA FEEDING TUBE DAILY Rx Instructions: TAKE 17 GRAMS DISSOLVED IN WATER VIA FEEDING TUBE DAILY Boost 0.04 gram- 1 kcal/mL Liquid 1.5 ea PO QID@07,1130,15,19 Rx Instructions: 350mL via PEG tube at 400mL/hr at 0700, 1130, 1500, 1900 water Liquid 120 ea PO QID@07,1130,15,19 Rx Instructions: 120mL water flush via PEG before and after each bolus tube feed Xtracal Plus 14 gram-230 kcal/45 mL liquid in packet 1 ea feeding tube DAILY@1100 albuterol sulfate 2.5 mg /3 mL (0.083 %) solution for nebulization 2.5 mg continuous nebulization TID Rx Instructions: per home nurse,pt has 2 orders for albuterol. One to use three times daily, 2nd order is PRN zonisamide 100 mg capsule 200 mg feeding tube QAM Rx Instructions: - TAKE 2 CAPS EVERY MORNING AND 1 CAP AT BEDTIME; zonisamide 100 mg Capsule 100 mg HS Rx Instructions: feeding tube amoxicillin-pot clavulanate 875-125 mg tablet 1 tab feeding tube BID Qty: 10 0RF sodium chloride 7 % solution for nebulization 4 ml inhalation BID Qty: 240 3RF Referrals Referrals: Janet Pearce MD [Primary Care Provider] - Discharge Problem: Sepsis Qualifiers: Sepsis type: sepsis due to unspecified organism Sepsis acute organ dysfunction status: unspecified Qualified Code(s): A41.9 - Sepsis, unspecified organism
[2024-02-12] MEDS: DEXAMETHASONE SOD INJ 4 MG/ML VIAL IV STA (14:54)
[2024-02-12] MEDS: PLASMA-LYTE A 1,000 ML IV ONE (14:54)
[2024-02-12 14:56] LABS: C Reactive Protein 3.04 mg/dl (0-0.5)
[2024-02-12] MEDS: REMDESIVIR 200 MG in SODIUM CHLORIDE 0.9% 210 ML IV STA (15:17)
[2024-02-12] MEDS: ICU Protocol for HYPERglycemia SCH (17:58)
[2024-02-12] MEDS: BACLOFEN 20 MG TAB GT SCH (17:58)
[2024-02-12] MEDS: ALBUTEROL 0.083% NEBU SOLN 3 ML VIAL NEB SCH ×2 (17:58→19:47)
[2024-02-12] MEDS: POLYETHYLENE (MIRALAX) 17 GM PACK PEG SCH (18:26)
[2024-02-12] MEDS: VALPROIC ACID 50 MG/ML UDP PEG SCH (18:40)
[2024-02-12] MEDS ORDERED: clonazePAM 0.5 MG TAB PO PRN (18:47)
[2024-02-12] MEDS: BUDESONIDE 0.5 MG/2 ML VIAL (PULMICORT) INH SCH (19:47)
[2024-02-12] MEDS: SODIUM CHLOR 7% 4 ML NEB INH SCH (19:48)
[2024-02-12] MEDS: BACLOFEN 20 MG TAB PEG SCH (19:56)
[2024-02-12] MEDS: ZONISAMIDE 100 MG CAPSULE PO SCH (19:57)
[2024-02-12] MEDS: traZODone HCL 50 MG TAB PEG SCH (21:07)
--- NOTE | 2024-02-12 21:20 | Electrocardiogram Report ---
Test Reason : Blood Pressure : */* mmHG Vent. Rate : 118 BPM Atrial Rate : 118 BPM P-R Int : 122 ms QRS Dur : 76 ms QT Int : 356 ms P-R-T Axes : 43 30 81 degrees QTcB Int : 498 ms Poor data quality, interpretation may be adversely affected Sinus tachycardia Nonspecific T wave abnormality Abnormal ECG When compared with ECG of 05-Nov-2023 09:19, No significant change Confirmed by Ramses Jimenez ([id number]) on 02/12/2024 9:20:23 PM Referred By: Confirmed By: Ramses Jimenez
[2024-02-13] MEDS: ACETAMINOPHEN 1,000 MG/100 ML VIAL IV PRN (00:27)
[2024-02-13 04:41] LABS: Hematocrit (blood only) 34.3 % (37.0-47.0); Hemoglobin 11.8 g/dl (12.0-16.0); Immature Granulocytes # (auto) 0.03 K/uL (0.01-0.20); Immature Granulocytes % (auto) 0.8 %; Lymphocytes # (auto) 0.35 K/uL (1.20-3.40); Lymphocytes % (auto) 9.4 %; Mean Corpuscular Hemoglobin 33.8 pg (25.0-34.0); Mean Corpuscular Hgb Conc 34.4 g/dL (32.0-36.0); Mean Corpuscular Volume 98.3 fL (80.0-100.0); Mean Platelet Volume 9.4 fL (9.4-12.4); Monocytes # (auto) 0.33 K/uL (0.11-0.59); Monocytes % (auto) 8.9 %; Neutrophils # (auto) 3.01 K/uL (1.40-6.50); Neutrophils % (auto) 80.9 %; Platelet Count 71 K/uL (130-400); RDW Coefficient of Variation 12.7 % (11.5-14.5); RDW Standard Deviation 45.1 fL (36.4-46.3); Red Blood Count 3.49 M/uL (4.20-5.40); White Blood Count 3.72 K/ul (4.8-10.8)
[2024-02-13 04:48] LABS: INR 1.1 (0.9-1.1); Prothrombin Time 11.6 Seconds (9.0-12.0)
[2024-02-13 04:58] LABS: Albumin Level 3.6 gm/dl (3.4-5.0); BUN Creatinine Ratio 33.3 (10-20); Bilirubin,Total 0.2 mg/dl (0.2-1.0); C Reactive Protein 8.03 mg/dl (0-0.5); Calcium 8.7 mg/dl (8.6-10.3); Creatinine Clr Calc Pharmacy 197.1 ml/min; Potassium 3.8 mmol/L (3.5-5.1); Total Protein 6.8 gm/dl (6.0-8.3)
[2024-02-13] MEDS: CETIRIZINE ORAL SOLN 1 MG/ML PEG SCH (08:10)
[2024-02-13] MEDS: ZONISAMIDE 100 MG CAPSULE PO SCH (08:11)
[2024-02-13] MEDS: dexAMETHasone 6 MG in SYRINGE 0 ML IV SCH (08:15)
[2024-02-13] MEDS: DEXTROSE 50% 50 ML SYRINGE IV PRN (08:56)
[2024-02-13] MEDS ORDERED: CETIRIZINE HCL 10 MG TABLET PO SCH (09:00)
[2024-02-13] MEDS ORDERED: DEXAMETHASONE SOD INJ 4 MG/ML VIAL IV SCH (09:00)
[2024-02-13] MEDS: DEXTROSE 50% 50 ML SYRINGE IV ONE (09:16)
[2024-02-13] MEDS: REMDESIVIR 100 MG in SODIUM CHLORIDE 0.9% 230 ML IV SCH (11:33)
--- NOTE | 2024-02-13 13:23 | Hospitalist Progress Note ---
Date of Service February 13, 2024 Assessment & Plan (1) COVID-19: Plan: This is a 28 y/o female with know PMH of Cerebral palsy who came to the hopsital on account of fever, tachycardia and increase sputum production Tested Positive for COVID with hypoxia CXR did not show any evidence of consolidation Cultures obtained Started on IV dexamethasone 6 mg daily x 10 days and Remdesivir for 5 days Continue to monitor Trach care per protocol (2) S/P percutaneous endoscopic gastrostomy (PEG) tube placement: Plan: stable, no signs of infection Nutrition has not changed will consult Nutrition for feedings (3) Chronic respiratory failure with hypoxia: Plan: history of trach dependent chronic respiratory failure will place on ICU bed, PCU status continue pulse oximetry no change on home ventilator supplemental oxygen >94% (4) Tracheostomy status: Plan: In place suction as needed (5) Seizure disorder: Plan: continue home meds Plan Dispo: continue hopsitalization FEN: Peg feedings, mold design engineer consulted Code status: conditional, no chest compressions DVT ppx: SCDs will hold chemical PPX Held home meds: nitrofurantoin daily Isolation: Airborne precautions Admission and Anticipated Discharge Date Admission Date: February 12, 2024 Subjective patient seen and examined, seems not to be in distress Review of Systems Review of Systems: unable to obtain Physical Exam Physical Exam: The patient is awake, non verbal, chronically ill looking HEENT--PERRL, EOMI, mucous membranes and oropharynx mildly dry Neck--trach collar Heart--normal S1 and S2. No murmurs, rubs or gallops. Lungs--clear bilaterally, no respiratory distress, no accessory muscle use. Abdomen--peg tube Extremities--contracted Dermatologic--normal skin turgor, normal color, no abnormal lymph nodes, no rash. Neurologic--cranial nerves II through XII grossly intact. Results & Data Results & Data Vital Signs (Past 12 Hours) Vital Signs Temp Pulse Pulse Pulse Resp BP BP 02/13/24 12:16 97.3 F L 02/13/24 12:15 99 H 17 02/13/24 12:00 117/80 02/13/24 11:54 92 H 22 02/13/24 11:09 88 24 02/13/24 11:00 98/66 L 02/13/24 10:51 85 17 02/13/24 10:03 91 H 33 H 02/13/24 10:03 87 24 02/13/24 10:00 102/61 02/13/24 10:00 102/61 02/13/24 09:57 91 H 22 02/13/24 09:00 101/62 02/13/24 09:00 95 H 20 02/13/24 08:46 100.6 F H 02/13/24 08:27 96 H 22 02/13/24 08:00 108/75 02/13/24 07:20 93 H 18 02/13/24 07:00 110/80 02/13/24 07:00 110/80 02/13/24 07:00 110/80 02/13/24 07:00 87 14 02/13/24 06:00 99.3 F 90 20 105/69 02/13/24 05:09 89 21 115/73 02/13/24 04:00 98.8 F 90 21 117/86 02/13/24 03:52 92 H 16 02/13/24 02:00 90 15 101/67 Pulse Ox O2 Del Method O2 Flow Rate FiO2 02/13/24 12:16 02/13/24 12:15 95 Trach Collar 40 02/13/24 12:00 02/13/24 11:54 97 02/13/24 11:09 95 02/13/24 11:00 02/13/24 10:51 91 Trach Collar 11 40 02/13/24 10:03 92 02/13/24 10:03 Trach Collar 11 40 02/13/24 10:00 02/13/24 10:00 02/13/24 09:57 89 L 02/13/24 09:00 02/13/24 09:00 96 02/13/24 08:46 02/13/24 08:27 96 02/13/24 08:00 02/13/24 07:20 97 Trach Collar 21 02/13/24 07:00 02/13/24 07:00 02/13/24 07:00 02/13/24 07:00 100 02/13/24 06:00 100 Mechanical Vent 02/13/24 05:09 100 02/13/24 04:00 99 Mechanical Vent 02/13/24 03:52 99 Mechanical Vent 3 02/13/24 02:00 99 Mechanical Vent PG Care Time/CCT Total # of Minutes Spent Total Time Spent with Patient: Total time spent is greater than 50% in coordination of care (as documented) at patient's floor/unit and/or counseling patient: Coding Level of Care Code 99924 SUB INP/OBS CARE 2/35MIN Diagnoses COVID-19 U07.1 S/P percutaneous endoscopic gastrostomy (PEG) tube placement Z93.1 Chronic respiratory failure with hypoxia J96.11 Tracheostomy status Z93.0 Seizure disorder G40.909 Time Spent (min) 35
[2024-02-14 05:04] LABS: Hematocrit (blood only) 36.7 % (37.0-47.0); Hemoglobin 12.5 g/dl (12.0-16.0); Immature Granulocytes # (auto) 0.02 K/uL (0.01-0.20); Immature Granulocytes % (auto) 0.4 %; Lymphocytes % (auto) 20.3 %; Mean Corpuscular Hemoglobin 33.4 pg (25.0-34.0); Mean Corpuscular Hgb Conc 34.1 g/dL (32.0-36.0); Mean Corpuscular Volume 98.1 fL (80.0-100.0); Mean Platelet Volume 9.4 fL (9.4-12.4); Monocytes % (auto) 16.3 %; Platelet Count 87 K/uL (130-400); RDW Coefficient of Variation 12.4 % (11.5-14.5); RDW Standard Deviation 45.1 fL (36.4-46.3); Red Blood Count 3.74 M/uL (4.20-5.40); White Blood Count 4.92 K/ul (4.8-10.8)
[2024-02-14 05:11] LABS: BUN Creatinine Ratio 38.6 (10-20); C Reactive Protein 3.75 mg/dl (0-0.5); Calcium 9.1 mg/dl (8.6-10.3); Creatinine Clr Calc Pharmacy 152.8 ml/min; Potassium 3.5 mmol/L (3.5-5.1)
[2024-02-14 05:31] LABS: INR 1.1 (0.9-1.1); Prothrombin Time 11.9 Seconds (9.0-12.0)
--- NOTE | 2024-02-14 10:04 | Hospitalist Progress Note ---
Date of Service February 14, 2024 Assessment & Plan (1) COVID-19: Plan: This is a 28 y/o female with know PMH of Cerebral palsy who came to the hopsital on account of fever, tachycardia and increase sputum production Tested Positive for COVID with hypoxia CXR did not show any evidence of consolidation Cultures obtained Started on IV dexamethasone 6 mg daily x 10 days and Remdesivir for 5 days, today is day 3 Markers of infllamation better, CRP 3, down from 8 on admission Continue to monitor Trach care per protocol (2) S/P percutaneous endoscopic gastrostomy (PEG) tube placement: Plan: stable, no signs of infection Nutrition has not changed will consult Nutrition for feedings (3) Chronic respiratory failure with hypoxia: Plan: history of trach dependent chronic respiratory failure will place on ICU bed, PCU status continue pulse oximetry no change on home ventilator supplemental oxygen >94% (4) Tracheostomy status: Plan: In place suction as needed (5) Seizure disorder: Plan: continue home meds Plan Dispo: I spoke to patients mom, she wishes for discharge tomorrow, I think she could be discharged 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 No murmurs, rubs or gallops. Lungs--clear bilaterally, no respiratory distress, no accessory muscle use. Abdomen--peg tube Extremities--contracted Dermatologic--normal skin turgor, normal color, no abnormal lymph nodes, no rash. Neurologic--cranial nerves II through XII grossly intact. Results & Data Results & Data Vital Signs (Past 12 Hours) Vital Signs Temp Pulse Pulse Resp BP BP Pulse Ox 02/14/24 09:28 02/14/24 09:28 02/14/24 09:28 90 02/14/24 08:59 90 02/14/24 07:26 98.4 F 95 H 20 111/75 93 02/14/24 07:22 91 H 30 H 94 02/14/24 04:00 98.6 F 105/64 02/14/24 03:57 79 23 93 02/14/24 03:03 85 21 90 02/14/24 03:00 115/77 02/14/24 03:00 115/77 02/14/24 02:36 95 H 28 H 97 02/14/24 02:35 96 H 21 98 02/14/24 02:00 111/75 02/14/24 01:48 91 H 19 95 02/14/24 01:06 90 20 92 02/14/24 01:00 110/82 02/14/24 01:00 110/82 02/14/24 00:42 93 H 16 93 02/14/24 00:21 91 H 17 93 02/14/24 00:00 115/85 02/13/24 23:39 90 18 93 02/13/24 23:03 97 H 23 92 02/13/24 23:00 109/77 02/13/24 23:00 109/77 02/13/24 23:00 109/77 02/13/24 22:45 98 H 20 91 02/13/24 22:25 95 H 21 91 O2 Del Method O2 Del Method O2 Flow Rate FiO2 02/14/24 09:28 Trach Collar 70 02/14/24 09:28 Trach Collar 02/14/24 09:28 02/14/24 08:59 Trach Collar 70 02/14/24 07:26 Trach Collar 02/14/24 07:22 Trach Collar 40 02/14/24 04:00 02/14/24 03:57 02/14/24 03:03 02/14/24 03:00 02/14/24 03:00 02/14/24 02:36 02/14/24 02:35 Mechanical Vent, Other 5 02/14/24 02:00 02/14/24 01:48 02/14/24 01:06 02/14/24 01:00 02/14/24 01:00 02/14/24 00:42 02/14/24 00:21 02/14/24 00:00 02/13/24 23:39 02/13/24 23:03 02/13/24 23:00 02/13/24 23:00 02/13/24 23:00 02/13/24 22:45 02/13/24 22:25 Mechanical Vent, Other 5 PG Care Time/CCT Total # of Minutes Spent Total Time Spent with Patient: Total time spent is greater than 50% in coordination of care (as documented) at patient's floor/unit and/or counseling patient: Coding Level of Care Code 87878 SUB INP/OBS CARE 2/35MIN Diagnoses COVID-19 U07.1 S/P percutaneous endoscopic gastrostomy (PEG) tube placement Z93.1 Chronic respiratory failure with hypoxia J96.11 Tracheostomy status Z93.0 Seizure disorder G40.909 Time Spent (min) 35
--- NOTE | 2024-02-14 13:31 | Pulmonary Consultation ---
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 She was found to be COVID-positive. Cultures have been negative. She did have a low- grade fever. Recommendations: 1. Known bronchiectasis: Cultures negative to date. Agree with withholding antibiotics at this point time unless culture should change. 2. Continue aggressive pulmonary toilet with suctioning as needed. Continue hypertonic saline. 3. Continue supplemental oxygen via trach collar. Continue home vent at night. 4. COVID: No focal airspace opacities. No indication for remdesivir at this point in time and this will be discontinued. As her oxygen requirement is not significantly higher than her baseline, do not think she warrants dexamethasone. Continue supportive care Will continue to follow. History of Present Illness Attending Physician: Madisyn Chirinos MD History of Present Illness Asked by hospitalist to assist in evaluation management of this patient admitted with fevers and respiratory issues. History is obtained from review of electronic medical record. Patient is well-known to the pulmonary service and is nonverbal. Patient is a 28-year-old nonverbal female with significant cerebral palsy status post tracheostomy presenting to the emergency room with sputum production with fevers and tachycardia. She been treated in the outpatient setting for potential pneumonia. She is on Macrodantin chronically. The emergency room she was given cefepime and vancomycin. She had a swab which was positive for COVID. Chest x-ray did not demonstrate any acute abnormalities. Pulmonary was consulted per mother's request. The patient is at her chronic debilitated state and using a home ventilator at night and tolerating trach collar trials during the day. Allergies Allergy/AdvReac Type Severity Reaction Status Date / Time No Known Allergies Allergy Verified 02/10/23 09:06 Home Medications Medication Instructions Recorded Confirmed Type food supplemt, lactose-reduced 1.5 ea PO QID@07,1130,,07/28/18 02/12/24 History 0.04 gram-1 kcal/mL oral liquid (Boost) water 120 ea PO QID@,1130,,07/28/18 02/12/24 History acetaminophen 160 mg/5 mL oral 640 mg (20 mL) PO Q6H PRN fever or 12/21/18 02/12/24 Rx liquid pain #473 mL Miscellaneous Medical Supply #1 ea 02/22/20 08/20/23 Rx (Hospital Bed) nut.tx.,elemental,cdtewfk-miio-zfk 1 ea feeding tube DAILY@1100 08/04/20 02/12/24 History 14 gram-230 kcal/45 mL liquid pkt (Xtracal Plus) nebulizers #1 ea 11/01/20 08/20/23 Rx miscellaneous medical supply #30 ea 01/31/21 08/20/23 Rx ([place] Tracheostomy Care Tray) Miscellaneous Pulmonary Supply #1 ea 12/23/21 08/20/23 Rx albuterol sulfate 2.5 mg/3 mL 2.5 mg continuous nebulization TID 10/08/22 02/12/24 History (0.083 %) solution for nebulization diaper,brief,adult,disposable (Day #180 ea 11/04/22 08/20/23 Rx and Night Brief, Large) disposable gloves #100 ea 11/04/22 08/20/23 Rx incontinence pad, liner, disp #20 ea 11/04/22 08/20/23 Rx incontinence pad, liner, disp #75 ea 11/04/22 08/20/23 Rx Repair or Replacement of Hospital #1 ea 12/26/22 08/20/23 Rx Bed nebulizer accessories #1 ea 02/04/23 08/20/23 Rx budesonide 0.5 mg/2 mL suspension 0.5 mg (2 mL) inhalation BID #120 07/09/23 02/12/24 Rx for nebulization mL baclofen 20 mg tablet 20 mg feeding tube TID 30 days #90 08/20/23 02/12/24 Rx tabs clonazepam 0.5 mg disintegrating 0.5 mg feeding tube DIRECTED 08/20/23 02/12/24 Rx tablet PRN PROLONGED SEIZURES #30 tabs fluoxetine 20 mg tablet 20 mg feeding tube QDL #30 tabs 08/20/23 02/12/24 Rx valproic acid (as sodium salt) 250 550 mg (11 mL) feeding tube TID 08/20/23 02/12/24 Rx mg/5 mL oral solution #990 mL zonisamide 100 mg capsule 100 mg HS 11/05/23 02/12/24 History zonisamide 100 mg capsule 200 mg feeding tube QAM 11/05/23 02/12/24 History sodium chloride 7 % for 4 ml inhalation BID Other #240 mL 11/06/23 02/12/24 Rx nebulization albuterol sulfate 2.5 mg/3 mL 2.5 mg (3 mL) inhalation Q4H PRN 11/30/23 02/12/24 Rx (0.083 %) solution for nebulization Wheezing/ shortness of breath #540 mL cetirizine 10 mg tablet 10 mg feeding tube DAILY #90 tabs 01/29/24 02/12/24 Rx nitrofurantoin macrocrystal 50 mg 50 mg feeding tube DAILY #90 caps 01/29/24 02/12/24 Rx capsule trazodone 50 mg tablet 50 mg feeding tube HS #90 tabs 01/29/24 02/12/24 Rx ibuprofen 100 mg/5 mL oral 100 mg PO UD PRN fever or pain 02/12/24 02/12/24 History suspension lidocaine-prilocaine 2.5 %-2.5 % 1 applic topical UD PRN Other 02/12/24 02/12/24 History topical cream miscellaneous medical supply 02/12/24 02/12/24 History miscellaneous medical supply 02/12/24 02/12/24 History miscellaneous medical supply 02/12/24 02/12/24 History polyethylene glycol 3350 17 17 g feeding tube DAILY 02/12/24 02/12/24 History gram/dose oral powder Patient History Medical History Transaminitis Multiple tracheobronchial mucus plugs Acute on chronic respiratory failure with hypoxemia Abnormal LFTs Thrombocytopenia Sepsis Surgical History History of tracheostomy #6 [place] 09/10/2020 Family History Brother Asthma Other Coronary heart disease Family history non-contributory Hypertension Social History Smoking Status: Never smoker Second Hand Exposure: No; Do You Dip or Chew Tobacco: No; Hx Alcohol Use: No Hx Substance Use: No Preferred Language: Micronesian Communication Ability: Impaired Communication Ability Comment: Pt is non-verbal at baseline [employer] Required: No Beliefs That Will Affect Care: None marital status: Single Current Living Situation: Family Current Living Situation Comment: home with mom and home health nurses Other Information That Helps Us Care for You: No Feels Safe at Home: Yes Safety Concerns: Feels Safe At This Time Assistive Devices: Hospital Bed and Wheelchair Review of Systems Review of Systems: Unobtainable due to cognitive status Physical Exam Physical Exam: VITAL SIGNS - Vital signs and nursing notes were reviewed. GENERAL - 28-year-old patient with CP. Alert but unable to communicate. SKIN - Without rashes. HEAD - NC/AT. EYES - Sclera anicteric. MOUTH/OROPHARYNX - Without perioral cyanosis. LUNGS -coarse rhonchi bilateral CARDIAC - RRR with S1/S2. No murmur, rubs, or gallops appreciated. ABDOMEN - Abdominal contour flat without pulsations or visible masses. BS normoactive all four quadrants. No tenderness, palpable masses, hepatosplenomegaly, or ascites noted. EXTREMITIES - Atrophy and contractures appreciated. Results & Data Results & Data Vital Signs (Past 12 Hours) Vital Signs Temp Pulse Pulse Resp BP BP Pulse Ox 02/14/24 12:50 110 H 30 H 96 02/14/24 11:56 36.5 C 97 H 20 116/72 91 02/14/24 10:35 20 91 02/14/24 09:28 02/14/24 09:28 02/14/24 09:28 90 02/14/24 08:59 90 02/14/24 07:26 36.9 C 95 H 20 111/75 93 02/14/24 07:22 91 H 30 H 94 02/14/24 04:00 37 C 105/64 02/14/24 03:57 79 23 93 02/14/24 03:03 85 21 90 02/14/24 03:00 115/77 02/14/24 03:00 115/77 02/14/24 02:36 95 H 28 H 97 02/14/24 02:35 96 H 21 98 02/14/24 02:00 111/75 02/14/24 01:48 91 H 19 95 O2 Del Method O2 Del Method O2 Flow Rate FiO2 02/14/24 12:50 Trach Collar 100 02/14/24 11:56 Trach Collar 100 02/14/24 10:35 Trach Collar 100 02/14/24 09:28 Trach Collar 70 02/14/24 09:28 Trach Collar 02/14/24 09:28 02/14/24 08:59 Trach Collar 70 02/14/24 07:26 Trach Collar 02/14/24 07:22 Trach Collar 40 02/14/24 04:00 02/14/24 03:57 02/14/24 03:03 02/14/24 03:00 02/14/24 03:00 02/14/24 02:36 02/14/24 02:35 Mechanical Vent, Other 5 02/14/24 02:00 02/14/24 01:48 Critical Care Results & Data Vital Signs (Past 12 Hours) Vital Signs Temp Pulse Pulse Resp BP BP Pulse Ox 02/14/24 12:50 110 H 30 H 96 02/14/24 11:56 36.5 C 97 H 20 116/72 91 02/14/24 10:35 20 91 02/14/24 09:28 02/14/24 09:28 02/14/24 09:28 90 02/14/24 08:59 90 02/14/24 07:26 36.9 C 95 H 20 111/75 93 02/14/24 07:22 91 H 30 H 94 02/14/24 04:00 37 C 105/64 02/14/24 03:57 79 23 93 02/14/24 03:03 85 21 90 02/14/24 03:00 115/77 02/14/24 03:00 115/77 02/14/24 02:36 95 H 28 H 97 02/14/24 02:35 96 H 21 98 02/14/24 02:00 111/75 02/14/24 01:48 91 H 19 95 O2 Del Method O2 Del Method O2 Flow Rate FiO2 02/14/24 12:50 Trach Collar 100 02/14/24 11:56 Trach Collar 100 02/14/24 10:35 Trach Collar 100 02/14/24 09:28 Trach Collar 70 02/14/24 09:28 Trach Collar 02/14/24 09:28 02/14/24 08:59 Trach Collar 70 02/14/24 07:26 Trach Collar 02/14/24 07:22 Trach Collar 40 02/14/24 04:00 02/14/24 03:57 02/14/24 03:03 02/14/24 03:00 02/14/24 03:00 02/14/24 02:36 02/14/24 02:35 Mechanical Vent, Other 5 02/14/24 02:00 02/14/24 01:48 Lab & Micro Results (Past 24 Hours) RBC 3.74 M/uL (4.20-5.40) L 02/14/24 WBC 4.92 K/ul (4.8-10.8) 02/14/24 Hgb 12.5 g/dl (12.0-16.0) 02/14/24 Hct 36.7 % (37.0-47.0) L 02/14/24 MCV 98.1 fL (80.0-100.0) 02/14/24 MCH 33.4 pg (25.0-34.0) 02/14/24 MCHC 34.1 g/dL (32.0-36.0) 02/14/24 RDW Standard Deviation 45.1 fL (36.4-46.3) 02/14/24 RDW Coefficient of Variation 12.4 % (11.5-14.5) 02/14/24 Plt Count 87 K/uL (130-400) L 02/14/24 MPV 9.4 fL (9.4-12.4) 02/14/24 Neutrophils (%) (Auto) 63.0 % 02/14/24 Lymphocytes (%) (Auto) 20.3 % 02/14/24 Monocytes # (Auto) 0.80 K/uL (0.11-0.59) H 02/14/24 Eosinophils # (Auto) 0.00 K/uL (0.00-0.50) 02/14/24 Immature Granulocyte % (Auto) 0.4 % 02/14/24 Neutrophils # (Auto) 3.10 K/uL (1.40-6.50) 02/14/24 Lymphocytes # (Auto) 1.00 K/uL (1.20-3.40) L 02/14/24 Monocytes # (Auto) 0.80 K/uL (0.11-0.59) H 02/14/24 Eosinophils # (Auto) 0.00 K/uL (0.00-0.50) 02/14/24 Basophils # (Auto) 0.00 K/uL (0.00-0.20) 02/14/24 Immature Granulocyte # (Auto) 0.02 K/uL (0.01-0.20) 4 Na 140 mmol/L (136-145) 02/14/24 K 3.5 mmol/L (3.5-5.1) 02/14/24 Cl 106 mmol/L (98-107) 02/14/24 CO2 26 mmol/L (21-32) 02/14/24 Anion Gap 8 (3-11) 02/14/24 BUN 17 mg/dl (6-23) 02/14/24 Creatinine 0.44 mg/dl (0.6-1.2) L 02/14/24 BUN/Creatinine Ratio 38.6 (10-20) H 02/14/24 Glu 73 mg/dl (70-99(Fasting)) 02/14/24 Ca 9.1 mg/dl (8.6-10.3) 02/14/24 Calcium Level 9.1 mg/dl (8.6-10.3) 02/14/24 04:04 Prothromb Time International Ratio 1.1 (0.9-1.1) 02/14/24 04:0 4 Microbiology 02/12/24 12:17 Aerobic Blood Culture - Preliminary Blood No growth in Aerobic bottle after 48 hours. Anaerobic Blood Culture - Preliminary No growth in Anaerobic bottle after 48 hours. 02/12/24 12:36 Aerobic Blood Culture - Preliminary Blood No growth in Aerobic bottle after 24 hours. Anaerobic Blood Culture - Preliminary No growth in Anaerobic bottle after 24 hours. 02/12/24 14:13 Gram Stain - Final Sputum,Trach Sputum Culture - Preliminary Pin-point growth present, reincubating. I & O Totals 24 Hours 02/13/24 02/14/24 02/15/24 06:59 06:59 06:59 Intake Total 2970 / 2970 1530 / 1530 250 / 250 Output Total 2050 Balance 2969 / 2969 -521 / -521 249 / 249 Cumulative 02/12/24 11:38 thru 02/14/24 13:14 Intake Total 4750 Output Total 0643 Balance 2697 RT Ventilator Mngmt (Last Documented) Ventilator Ordered Settings Respiratory Rate 30 02/14/24 12:50 Fraction of Inspired Oxygen 100 02/14/24 12:50 Ventilator - PT Measurements Respiratory Rate 30 PG Care Time/CCT Total # of Minutes Spent Total Time Spent with Patient: Total time spent is greater than 50% in coordination of care (as documented) at patient's floor/unit and/or counseling patient: Coding Level of Care Code 42497 IN/OBS CONSULT LVL 4,60M Diagnoses Quadriplegic cerebral palsy G80.8 Pseudomonas aeruginosa colonization Z22.39 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
--- NOTE | 2024-02-15 00:34 | XRay Report ---
Exam(s): XR CXR 1 VIEW EXAM: XR Chest, 1 View CLINICAL HISTORY: Reason for exam: hypoxia. TECHNIQUE: Frontal view of the chest. COMPARISON: February 12, 2024 FINDINGS: Lungs: Development of increased density in the left lung base obscuring the diaphragm consistent with pneumonia or atelectasis. Pleural space: Unremarkable. No pneumothorax. Heart: Unremarkable. No cardiomegaly. Mediastinum: Unremarkable. Normal mediastinal contour. Bones/joints: Unremarkable. No acute fracture. Tubes, lines and devices: There is a left-sided Port-A-Cath with the tip extending to the superior vena cava. There is an endotracheal tube with the tip at the upper margin of the clavicles, 5 cm from the alannah. Upper abdomen: There is no pneumoperitoneum under the diaphragm. IMPRESSION: 1. Development of increased density in the left lung base obscuring the diaphragm consistent with pneumonia or atelectasis. 2. There is a left-sided Port-A-Cath with the tip extending to the superior vena cava. There is an endotracheal tube with the tip at the upper margin of the clavicles, 5 cm from the alannah. Electronically signed by: Brant Krueger MD 02/15/24 00:33 AM
[2024-02-15] MEDS ORDERED: STAT IV Infusion **Titration per Protocol STA (01:23)
--- NOTE | 2024-02-15 01:42 | Communication Note ---
Date of Service: February 15, 2024 Notified by nursing and respiratory therapy that patient became agitated, more hypoxic when placed on her home vent this evening. Chest x-ray obtained which showed left lung base with signs of pneumonia vs atelectasis. Reviewed chart and discussed case with attending physician and ICU provider. Respiratory therapy reports that they have not been able to suction as much this evening compared to the day prior. Chart review shows multiple prior bronchs and extended admissions in ICU with prior left lung base opacities, pleural effusions,etc. I called and spoke with the patient's mother, Martha, alongside the ICU provider- patient's mother confirms that she would want Selvin to be placed on the ICU ventilator and undergo bronchoscopy if needed. Order for transfer to ICU status placed. Resident Activity Tracking Resident Involvement: Resident Care Provided Care Provided: Adult Hospital Medicine
--- NOTE | 2024-02-15 02:40 | Communication Note ---
Date of Service: February 15, 2024 Patient is HD #3 for COVID 19 admission. Patient is well known to Critical Care team and Pulmonary team secondary to history of Cerebral Palsy, tracheostomy and ventilator use. Patient had increasing oxygen demands noted through this evening. She has been doing well previously with supportive care. - This evening patient was with hypoxia sustained high to mid 80s and desaturations when placed on her home ventilator. CXR was obtained by the primary medical team- This was noted with worsening opacification of LLL and noted fluid in the fissure. She has been frequently suctioned through the day for large amounts of mcmullen sputum per report, and this has slowed down this evening. - Patient at this time with her secretions and hypoventilation has likely collapsed portion of her LLL - Did call the mother with the primary team and noted the above findings, she did wish to continue full care and support- patient will be brought to ICU serv ice, sedated to allow application of PEEP as well as synchrony with ventilator. - Patient was sedated with Precedex and Fentanyl 25mcg to allow suctioning with saline bullets- which did produce moderate amount mcmullen bloody secretions, this has been sent for Gram stain and culture- previous cultures have no growth.- sputum and blood NGTD ([id number]) - Given nebulizer along with vibration therapy - I will place the patient back on Decadron and increase this to 8mg every 24 hours in light of COVID - Wll provide 20mg IV lasix at this time as well - She will likely need bronchoscopy with BAL in the morning or earlier if we are unable to increase her Spo2- would like to have her on less settings at this time prior to performing bronch - Once sedated and lavaged she was able to synch up with the ventilator and decreased her PIPs as well as RR - She will need Volume control at this time to consistently deliver VT ~ 350s, her initiated breaths on other modes were 150- 180s. She is on a PEEP of 10 currently with Pplt 30 and FIO2 100% - Repeat CXR in am - Hold on abx as previously noted cultures have remained negative Full Critical Care/Pulmonary consult to follow in the morning. Praveen VALENCIA ([facility]-) Coding Level of Care Code None
[2024-02-15] MEDS: dexAMETHasone 8 MG in SYRINGE 0 ML IV SCH (02:56)
[2024-02-15] MEDS: FUROSEMIDE INJ 20 MG/2 ML VIAL IV ONE (02:56)
[2024-02-15] MEDS: dexMEDEtomidine 200 MCG/50 ML BAG IV SCH (02:57)
[2024-02-15] MEDS: DEXAMETHASONE SOD INJ 4 MG/ML VIAL IV STA (03:55)
[2024-02-15 04:50] LABS: Basophils # (auto) 0.01 K/uL (0.00-0.20); Basophils % (auto) 0.1 %; Hematocrit (blood only) 34.7 % (37.0-47.0); Hemoglobin 11.9 g/dl (12.0-16.0); Immature Granulocytes # (auto) 0.04 K/uL (0.01-0.20); Immature Granulocytes % (auto) 0.3 %; Lymphocytes # (auto) 0.58 K/uL (1.20-3.40); Lymphocytes % (auto) 4.6 %; Mean Corpuscular Hemoglobin 33.3 pg (25.0-34.0); Mean Corpuscular Hgb Conc 34.3 g/dL (32.0-36.0); Mean Corpuscular Volume 97.2 fL (80.0-100.0); Mean Platelet Volume 9.1 fL (9.4-12.4); Monocytes # (auto) 1.06 K/uL (0.11-0.59); Monocytes % (auto) 8.4 %; Neutrophils # (auto) 10.88 K/uL (1.40-6.50); Neutrophils % (auto) 86.6 %; Platelet Count 98 K/uL (130-400); RDW Coefficient of Variation 12.4 % (11.5-14.5); RDW Standard Deviation 44.1 fL (36.4-46.3); Red Blood Count 3.57 M/uL (4.20-5.40); White Blood Count 12.57 K/ul (4.8-10.8)
[2024-02-15 05:40] LABS: INR 1.2 (0.9-1.1); Prothrombin Time 12.4 Seconds (9.0-12.0)
[2024-02-15] MEDS ORDERED: CEFEPIME 1000MG 1,000 MG/10 ML SYR IV SCH (08:00)
--- NOTE | 2024-02-15 08:37 | Pulmonology Progress Note ---
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 She was found to be COVID-positive. Cultures have been negative. She did have a low-grade fever. Chest x-ray 02/14/2024: Portable film, chronic left lower lobe atelectasis, blunting of the left costophrenic angle, elevated left hemidiaphragm right costophrenic angle as well as cardiophrenic angles are clean. Left-sided retrocardiac opacity cannot be ruled out -- Trach dependent currently vent dependent Respiratory bio fire positive for COVID-19 02/12/2024 Nasal MRSA negative Procalcitonin 0.06 Last bronchoscopy 10/08: Pseudomonas and Corynebacterium. Patient finished ceftazidime antibiotic, last dose was 10/26/2022 It also grew Epicoccum species which is most likely a colonizer History of Pseudomonas which is resistant to levofloxacin and tobramycin. Sensitive to only Avycaz History of Achromobacter and Pseudomonas in the sputum O2 supplementation to keep oxygen saturation between 90-92% --COVID-19 positive Patient's chest x-ray on presentation 02/12/2024 did not show any infiltrate Repeat chest x-ray 02/14/2024 does show some worsening of the left side Patient does have chronic bronchiectasis and history of collapse of the left lower lobe with chronic secretions I am unsure if Covid-19 is playing any role in patient's current presentation Would recommend holding back on remdesivir If the patient gets hypoxic then dexamethasone for 10 days could be thought of --Chronic bronchiectasis Hypertonic saline nebulized twice a day, aggressive suctioning with chest PT Plan: I am unsure if Covid-19 is playing any role in patient's current presentation Would recommend holding back on remdesivir If the patient gets hypoxic then dexamethasone for 10 days could be thought of Continue with hypertonic saline nebulized and pulmonary toileting Given the patient is already ICU status, pulmonary is going to sign off. Please call directly with any questions Please note the above document was generated using voice recognition software. It may contain grammatical, syntax or spelling errors.Any formal questions or concerns about the content, text or information contained within the body of this dictation should be directly addressed to the provider for clarification. Admission and Anticipated Discharge Date Admission Date: February 12, 2024 Subjective Patient seen and examined at bedside. 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 Overnight patient was found to be hypoxic, she was sedated and started on full ventilatory support Afebrile in the last 24 hours Patient was saturating 96% on minimal vent setting Review of Systems 2 Review of Systems: Unobtainable due to cognitive status Physical Exam 2 Physical Exam: Constitutional: No acute distress HEENT: EOMI, PERRLA, positive trach Respiratory system:Decreased air entry bilaterally, no wheeze, minimal rhonchi appreciated bilaterally, mild crackles bilateral lower lobes more on the left CVS: S1-S2 positive, no murmurs or gallops, tachycardia Abdomen: Soft, nontender, nondistended, positive bowel sounds x4, positive PEG Extremities: +2 pulses bilaterally radialis/ dorsalis pedis, no cyanosis, no edema Neuro:Contracture of the upper and lower extremities, spontaneously opening eyes, not following commands Psych:Unable to assess G/U:No Cota Skin: no rashes, warm and dry Lymphatic: no cervical or axillary lymphadenopathy Results & Data Results & Data Vital Signs (Past 12 Hours) Vital Signs Pulse Pulse Resp BP Pulse Ox O2 Del Method O2 Flow Rate 02/15/24 07:28 80 23 95 02/15/24 07:19 Mechanical Vent 02/15/24 07:00 78 22 94 02/15/24 07:00 93/54 L 02/15/24 06:00 95/63 L 02/15/24 05:54 82 22 95 02/15/24 05:09 86 22 94 02/15/24 05:02 87 22 94 02/15/24 04:12 95 H 22 100 02/15/24 04:00 84/56 L 02/15/24 04:00 84/56 L 02/15/24 03:51 98 H 22 96 02/15/24 03:00 88 22 93 02/15/24 03:00 87/56 L 02/15/24 03:00 87/56 L 02/15/24 03:00 87/56 L 02/15/24 03:00 87/56 L 02/15/24 02:42 02/15/24 02:00 87 44 H 84 L 02/15/24 02:00 90/56 L 02/15/24 02:00 90/56 L 02/15/24 02:00 Mechanical Vent 02/15/24 01:30 90 22 87 L 02/15/24 01:00 86 21 85 L 02/15/24 01:00 103/74 02/15/24 01:00 103/74 02/15/24 01:00 103/74 02/15/24 01:00 103/74 02/15/24 00:00 84 20 89 L 02/15/24 00:00 109/75 02/14/24 23:52 80 31 H 88 L Trach Collar 10 02/14/24 23:06 89 42 H 90 02/14/24 23:00 102/67 02/14/24 22:48 89 34 H 87 L 02/14/24 22:03 98 H 39 H 90 02/14/24 22:00 99/61 L 02/14/24 22:00 99/61 L 02/14/24 22:00 99/61 L 02/14/24 21:45 99 H 40 H 91 02/14/24 21:30 102 H 42 H 94 02/14/24 20:34 Trach Collar 02/14/24 20:33 92 H 36 H 93 Trach Collar FiO2 02/15/24 07:28 50 02/15/24 07:19 02/15/24 07:00 02/15/24 07:00 02/15/24 06:00 02/15/24 05:54 02/15/24 05:09 02/15/24 05:02 50 02/15/24 04:12 02/15/24 04:00 02/15/24 04:00 02/15/24 03:51 02/15/24 03:00 02/15/24 03:00 02/15/24 03:00 02/15/24 03:00 02/15/24 03:00 02/15/24 02:42 100 02/15/24 02:00 02/15/24 02:00 02/15/24 02:00 02/15/24 02:00 02/15/24 01:30 100 02/15/24 01:00 02/15/24 01:00 02/15/24 01:00 02/15/24 01:00 02/15/24 01:00 02/15/24 00:00 02/15/24 00:00 02/14/24 23:52 100 02/14/24 23:06 02/14/24 23:00 02/14/24 22:48 02/14/24 22:03 02/14/24 22:00 02/14/24 22:00 02/14/24 22:00 02/14/24 21:45 02/14/24 21:30 02/14/24 20:34 02/14/24 20:33 100 Laboratory Results 02/15/24 04:23 02/14/24 04:04 PG Care Time/CCT Total # of Minutes Spent Total Time Spent with Patient: Total time spent is greater than 50% in coordination of care (as documented) at patient's floor/unit and/or counseling patient: Coding Level of Care Code 15300 SUB INP/OBS CARE 3/50MIN Diagnoses Quadriplegic cerebral palsy G80.8 Pseudomonas aeruginosa colonization Z22.39 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
--- NOTE | 2024-02-15 09:46 | Critical Care Progress Note ---
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 She was found to be COVID-positive. Cultures have been negative. She did have a low-grade fever. PLAN: Neuro: Severe cerebral palsy -Continue baclofen, fluoxetine, Depakote, Zonegran Resp: Chronic vent dependent respiratory failure -Known colonization with Pseudomonas and stenotrophomonas at baseline COVID pneumonia -Unclear if this represents a secondary bacterial infection versus mucoid impaction -Improved aeration with x-ray today continue aggressive chest physiotherapy -Treatment with Bactrim Fluids/Renal: Follow renal function ID: Initiate Bactrim based on prior sensitivities -Continue cefepime for 48 hours GI/Nutrition: Bolus feedings Heme: DVT prophylaxis: Patient has never been ambulatory, no indication for DVT prophylaxis chemical nor mechanical Endocrine: ICU hyperglycemia protocol Vascular access: Peripheral IV Code Status: DNR in event of cardiac arrest, chronic ventilator dependence at baseline -CODE STATUS updated to reflect cardiac arrest wishes -Patient is chronically vent dependent at baseline Disposition: ICU Admission and Anticipated Discharge Date Admission Date: February 12, 2024 Supervising Physician Co-Signing Physician Notes I have personally spent 30 minutes of critical care time in the direct managemen t of this patient. This is a life/limb threatening event. This includes time spent evaluating patient, direct bedside care, chart review, placing orders, interpretation of diagnostic studies, discussion with consultants, patient, and/or family members regarding treatment decisions, as well as other required patient management activities. This time is exclusive of all separately billable procedures, and teaching time and separate from and in addition to any other critical care service time. Subjective Patient averbal at baseline Physical Exam Physical Exam: General: nontoxic. Skin: Warm, dry, Head: Atraumatic Ears, nose, mouth and throat: Tracheostomy tube present Cardiovascular: Normal peripheral perfusion Respiratory: Ventilator settings reviewed Gastrointestinal: Non distended Musculoskeletal: No deformity Results & Data Results & Data Vital Signs (Past 12 Hours) Vital Signs Pulse Pulse Resp BP Pulse Ox O2 Del Method O2 Flow Rate 02/15/24 08:00 85 19 96 02/15/24 08:00 88/54 L 02/15/24 08:00 02/15/24 07:28 80 23 95 02/15/24 07:19 Mechanical Vent 02/15/24 07:00 78 22 94 02/15/24 07:00 93/54 L 02/15/24 06:00 95/63 L 02/15/24 05:54 82 22 95 02/15/24 05:09 86 22 94 02/15/24 05:02 87 22 94 02/15/24 04:12 95 H 22 100 02/15/24 04:00 84/56 L 02/15/24 04:00 84/56 L 02/15/24 03:51 98 H 22 96 02/15/24 03:00 88 22 93 02/15/24 03:00 87/56 L 02/15/24 03:00 87/56 L 02/15/24 03:00 87/56 L 02/15/24 03:00 87/56 L 02/15/24 02:42 02/15/24 02:00 87 44 H 84 L 02/15/24 02:00 90/56 L 02/15/24 02:00 90/56 L 02/15/24 02:00 Mechanical Vent 02/15/24 01:30 90 22 87 L 02/15/24 01:00 86 21 85 L 02/15/24 01:00 103/74 02/15/24 01:00 103/74 02/15/24 01:00 103/74 02/15/24 01:00 103/74 02/15/24 00:00 84 20 89 L 02/15/24 00:00 109/75 02/14/24 23:52 80 31 H 88 L Trach Collar 10 02/14/24 23:06 89 42 H 90 02/14/24 23:00 102/67 02/14/24 22:48 89 34 H 87 L 02/14/24 22:03 98 H 39 H 90 02/14/24 22:00 99/61 L 02/14/24 22:00 99/61 L 02/14/24 22:00 99/61 L 02/14/24 21:45 99 H 40 H 91 FiO2 02/15/24 08:00 02/15/24 08:00 02/15/24 08:00 50 02/15/24 07:28 50 02/15/24 07:19 02/15/24 07:00 02/15/24 07:00 02/15/24 06:00 02/15/24 05:54 02/15/24 05:09 02/15/24 05:02 50 02/15/24 04:12 02/15/24 04:00 02/15/24 04:00 02/15/24 03:51 02/15/24 03:00 02/15/24 03:00 02/15/24 03:00 02/15/24 03:00 02/15/24 03:00 02/15/24 02:42 100 02/15/24 02:00 02/15/24 02:00 02/15/24 02:00 02/15/24 02:00 02/15/24 01:30 100 02/15/24 01:00 02/15/24 01:00 02/15/24 01:00 02/15/24 01:00 02/15/24 01:00 02/15/24 00:00 02/15/24 00:00 02/14/24 23:52 100 02/14/24 23:06 02/14/24 23:00 02/14/24 22:48 02/14/24 22:03 02/14/24 22:00 02/14/24 22:00 02/14/24 22:00 02/14/24 21:45 Critical Care Results & Data Vital Signs (Past 12 Hours) Vital Signs Temp Pulse Resp BP Pulse Ox O2 Del Method FiO2 02/15/24 13:00 78 22 92 02/15/24 13:00 83/49 L 02/15/24 12:12 76 22 92 02/15/24 12:00 88/57 L 02/15/24 12:00 36.6 C 02/15/24 12:00 50 02/15/24 11:57 76 22 94 02/15/24 11:03 78 22 94 02/15/24 11:00 87/53 L 02/15/24 10:06 80 25 H 95 50 02/15/24 10:00 81 27 H 96 50 02/15/24 10:00 84/49 L 02/15/24 09:39 83/53 L 02/15/24 09:39 79 31 H 95 02/15/24 09:09 80 19 100 02/15/24 09:00 87/66 L 02/15/24 08:57 77 22 95 02/15/24 08:00 37.8 C H 02/15/24 08:00 Mechanical Vent 50 02/15/24 08:00 85 19 96 02/15/24 08:00 88/54 L 02/15/24 08:00 50 02/15/24 07:28 80 23 95 50 02/15/24 07:19 Mechanical Vent 02/15/24 07:00 78 22 94 02/15/24 07:00 93/54 L 02/15/24 06:00 95/63 L 02/15/24 05:54 82 22 95 02/15/24 05:09 86 22 94 02/15/24 05:02 87 22 94 50 02/15/24 04:12 95 H 22 100 02/15/24 04:00 84/56 L 02/15/24 04:00 84/56 L 02/15/24 03:51 98 H 22 96 02/15/24 03:00 88 22 93 02/15/24 03:00 87/56 L 02/15/24 03:00 87/56 L 02/15/24 03:00 87/56 L 02/15/24 03:00 87/56 L 02/15/24 02:42 100 02/15/24 02:00 87 44 H 84 L 02/15/24 02:00 90/56 L 02/15/24 02:00 90/56 L 02/15/24 02:00 Mechanical Vent 02/15/24 01:30 90 22 87 L 100 Lab & Micro Results (Past 24 Hours) RBC 3.57 M/uL (4.20-5.40) L 02/15/24 WBC 12.57 K/ul (4.8-10.8) H 02/15/24 Hgb 11.9 g/dl (12.0-16.0) L 02/15/24 Hct 34.7 % (37.0-47.0) L 02/15/24 MCV 97.2 fL (80.0-100.0) 02/15/24 MCH 33.3 pg (25.0-34.0) 02/15/24 MCHC 34.3 g/dL (32.0-36.0) 02/15/24 RDW Standard Deviation 44.1 fL (36.4-46.3) 02/15/24 RDW Coefficient of Variation 12.4 % (11.5-14.5) 02/15/24 Plt Count 98 K/uL (130-400) L 02/15/24 MPV 9.1 fL (9.4-12.4) L 02/15/24 Neutrophils (%) (Auto) 86.6 % 02/15/24 Lymphocytes (%) (Auto) 4.6 % 02/15/24 Monocytes # (Auto) 1.06 K/uL (0.11-0.59) H 02/15/24 Eosinophils # (Auto) 0.00 K/uL (0.00-0.50) 02/15/24 Immature Granulocyte % (Auto) 0.3 % 02/15/24 Neutrophils # (Auto) 10.88 K/uL (1.40-6.50) H 02/15/24 Lymphocytes # (Auto) 0.58 K/uL (1.20-3.40) L 02/15/24 Monocytes # (Auto) 1.06 K/uL (0.11-0.59) H 02/15/24 Eosinophils # (Auto) 0.00 K/uL (0.00-0.50) 02/15/24 Basophils # (Auto) 0.01 K/uL (0.00-0.20) 02/15/24 Immature Granulocyte # (Auto) 0.04 K/uL (0.01-0.20) 4 No Data to Display Prothromb Time International Ratio 1.2 (0.9-1.1) H 02/15/24 04 :23 Microbiology 02/12/24 14:13 Gram Stain - Final Sputum,Trach Sputum Culture - Preliminary Pseudomonas aeruginosa Stenotrophomonas maltophilia 02/15/24 Unknown Gram Stain - Final Sputum,Trach 02/12/24 12:36 Aerobic Blood Culture - Preliminary Blood No growth in Aerobic bottle after 48 hours. Anaerobic Blood Culture - Preliminary No growth in Anaerobic bottle after 48 hours. 02/12/24 12:17 Aerobic Blood Culture - Preliminary Blood No growth in Aerobic bottle after 48 hours. Anaerobic Blood Culture - Preliminary No growth in Anaerobic bottle after 48 hours. Diagnostic Findings (Past 24 Hours) Chest X-Ray 12/22/24 22:46 Exam(s): XR CXR 1 VIEW EXAM: XR Chest, 1 View CLINICAL HISTORY: Reason for exam: hypoxia. TECHNIQUE: Frontal view of the chest. COMPARISON: February 12, 2024 FINDINGS: Lungs: Development of increased density in the left lung base obscuring the diaphragm consistent with pneumonia or atelectasis. Pleural space: Unremarkable. No pneumothorax. Heart: Unremarkable. No cardiomegaly. Mediastinum: Unremarkable. Normal mediastinal contour. Bones/joints: Unremarkable. No acute fracture. Tubes, lines and devices: There is a left-sided Port-A-Cath with the tip extending to the superior vena cava. There is an endotracheal tube with the tip at the upper margin of the clavicles, 5 cm from the alannah. Upper abdomen: There is no pneumoperitoneum under the diaphragm. IMPRESSION: 1. Development of increased density in the left lung base obscuring the diaphragm consistent with pneumonia or atelectasis. 2. There is a left-sided Port-A-Cath with the tip extending to the superior vena cava. There is an endotracheal tube with the tip at the upper margin of the clavicles, 5 cm from the alannah. Electronically signed by: Brant Krueger MD 02/15/24 00:33 AM Chest X-Ray 02/15/24 09:45 XR chest 1V portable CLINICAL HISTORY: infiltrate TECHNIQUE: Single frontal radiograph of the chest was obtained. Comparison: Comparison is made to chest radiograph 02/14/2024 FINDINGS: Left portacatheter is seen. Tracheostomy tube is seen. The cardiomediastinal silhouette is normal. Left airspace opacity is seen. No evidence of pleural effusion or pneumothorax. IMPRESSION: Faint left airspace opacity. This may represent atelectasis, pneumonia, and/or aspiration. ACT 112: Negative or not required by law. Electronically signed by: Raudel Rich M.D. 02/15/2024 10:50 AM I & O Totals 24 Hours 02/14/24 02/15/24 02/16/24 06:59 06:59 06:59 Intake Total 1530 / 1530 1490 / 1490 351.425 / 351.425 Output Total 2050 / 2050 442 / 442 301 / 301 Balance -521 / -521 1048 / 1048 50.425 / 50.425 Cumulative 02/12/24 11:38 thru 02/15/24 13:02 Intake Total 6341.425 Output Total 2795 Balance 3546.425 RT Ventilator Mngmt (Last Documented) Ventilator Ordered Settings Ventilator Support Mode Assist Control 02/15/24 12:00 Respiratory Rate 22 02/15/24 13:00 Ventilator Tidal Volume 350 02/15/24 12:00 Setting Minute Ventilation 9.4 02/15/24 10:06 Positive End Expiratory 8 02/15/24 12:00 Pressure Fraction of Inspired Oxygen 50 02/15/24 12:00 Ventilator - PT Measurements Respiratory Rate 22 Exhaled Tidal Volume 350 Minute Ventilation 9.4 Peak Inspiratory Airway 23 Pressure Plateau Pressure 22 Respiratory Cycle Inspiratory: 1:2.2 Expiratory Ratio Inspiratory Phase Time 0.86 End-Tidal CO2 24 Static Lung Compliance 25.00 Dynamic Lung Compliance 23.33 Normal Static Lung Compliance 46.00 Coding Level of Care Code 31076 CRITICAL CARE 1ST 30-74M Diagnoses Quadriplegic cerebral palsy G80.8 Pseudomonas aeruginosa colonization Z22.39 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
[2024-02-15] MEDS: CEFEPIME 2000MG 2,000 MG/20 ML SYR IV SCH (10:02)
--- NOTE | 2024-02-15 10:53 | XRay Report ---
XR chest 1V portable CLINICAL HISTORY: infiltrate TECHNIQUE: Single frontal radiograph of the chest was obtained. Comparison: Comparison is made to chest radiograph 02/14/2024 FINDINGS: Left portacatheter is seen. Tracheostomy tube is seen. The cardiomediastinal silhouette is normal. Left airspace opacity is seen. No evidence of pleural effusion or pneumothorax. IMPRESSION: Faint left airspace opacity. This may represent atelectasis, pneumonia, and/or aspiration. ACT 112: Negative or not required by law. Electronically signed by: Raudel Rich M.D. 02/15/2024 10:50 AM
--- NOTE | 2024-02-15 11:03 | Hospitalist Progress Note ---
Date of Service February 15, 2024 Assessment & Plan (1) Acute and chronic respiratory failure with hypoxia: Plan: She is now receiving ventilator support via her permanent tracheostomy. Critical care management for now (2) Atelectasis: Plan: Left lower lobe area, seen on chest x-ray. She may have associated pneumonia. She is now on cefepime. Pseudomonas previously isolated in sputum (3) COVID-19: Plan: By nasal swab. Current variants are not causing pneumonia and I highly doubt this is having any current role in her current clinical state. Remdesivir has been discontinued (4) S/P percutaneous endoscopic gastrostomy (PEG) tube placement: Plan: stable. Continue tube feedings as usual (5) Seizure disorder: Plan: Stable. Continue current medical management (6) Cerebral palsy: Plan: Severe. Nonverbal. Supportive care Plan To be determined Admission and Anticipated Discharge Date Admission Date: February 12, 2024 Subjective The patient is nonverbal with severe cerebral palsy. She has a permanent tracheostomy and is now receiving ventilator support. She has what appears to be left lower lobe atelectasis and possibly recurrent pneumonia. She is now on cefepime. Appreciate pulmonary medicine and critical care assistance. Current COVID variants are not causing viral pneumonia and I do not believe her COVID positivity by nasal swab is playing a role here. No indication for remdesivir at this point. Review of Systems 2 Review of Systems: The patient is nonverbal and unable to answer any questions regarding review of systems Physical Exam 2 Physical Exam: General-eyes are open. Nonverbal. Severe cerebral palsy at baseline HEENT-head atraumatic and normocephalic, both eyes are open but she is unable to track Neck-no lymphadenopathy or thyromegaly, trachea midline. She has a permanent tracheostomy and currently on ventilator support Chest-bilateral rhonchi. No wheezing. i Cardiac-regular rate and rhythm, normal S1 and S2 Abdomen-normal bowel sounds, no hepatosplenomegaly. PEG tube in place Extremities-bilateral upper extremity contractures. Atrophy of all 4 extremities noted. Neuro-severe cerebral palsy at baseline. Nonverbal. Functional quadriplegia Psych-cannot assess Results & Data Results & Data Vital Signs (Past 12 Hours) Vital Signs Temp Pulse Pulse Resp BP Pulse Ox O2 Del Method 02/15/24 10:06 80 25 H 95 02/15/24 10:00 81 27 H 96 02/15/24 10:00 84/49 L 02/15/24 09:39 83/53 L 02/15/24 09:39 79 31 H 95 02/15/24 09:09 80 19 100 02/15/24 09:00 87/66 L 02/15/24 08:57 77 22 95 02/15/24 08:00 37.8 C H 02/15/24 08:00 Mechanical Vent 02/15/24 08:00 85 19 96 02/15/24 08:00 88/54 L 02/15/24 08:00 02/15/24 07:28 80 23 95 02/15/24 07:19 Mechanical Vent 02/15/24 07:00 78 22 94 02/15/24 07:00 93/54 L 02/15/24 06:00 95/63 L 02/15/24 05:54 82 22 95 02/15/24 05:09 86 22 94 02/15/24 05:02 87 22 94 02/15/24 04:12 95 H 22 100 02/15/24 04:00 84/56 L 02/15/24 04:00 84/56 L 02/15/24 03:51 98 H 22 96 02/15/24 03:00 88 22 93 02/15/24 03:00 87/56 L 02/15/24 03:00 87/56 L 02/15/24 03:00 87/56 L 02/15/24 03:00 87/56 L 02/15/24 02:42 02/15/24 02:00 87 44 H 84 L 02/15/24 02:00 90/56 L 02/15/24 02:00 90/56 L 02/15/24 02:00 Mechanical Vent 02/15/24 01:30 90 22 87 L 02/15/24 01:00 86 21 85 L 02/15/24 01:00 103/74 02/15/24 01:00 103/74 02/15/24 01:00 103/74 02/15/24 01:00 103/74 02/15/24 00:00 84 20 89 L 02/15/24 00:00 109/75 02/14/24 23:52 80 31 H 88 L Trach Collar 02/14/24 23:06 89 42 H 90 02/14/24 23:00 102/67 O2 Flow Rate FiO2 02/15/24 10:06 50 02/15/24 10:00 50 02/15/24 10:00 02/15/24 09:39 02/15/24 09:39 02/15/24 09:09 02/15/24 09:00 02/15/24 08:57 02/15/24 08:00 02/15/24 08:00 50 02/15/24 08:00 02/15/24 08:00 02/15/24 08:00 50 02/15/24 07:28 50 02/15/24 07:19 02/15/24 07:00 02/15/24 07:00 02/15/24 06:00 02/15/24 05:54 02/15/24 05:09 02/15/24 05:02 50 02/15/24 04:12 02/15/24 04:00 02/15/24 04:00 02/15/24 03:51 02/15/24 03:00 02/15/24 03:00 02/15/24 03:00 02/15/24 03:00 02/15/24 03:00 02/15/24 02:42 100 02/15/24 02:00 02/15/24 02:00 02/15/24 02:00 02/15/24 02:00 02/15/24 01:30 100 02/15/24 01:00 02/15/24 01:00 02/15/24 01:00 02/15/24 01:00 02/15/24 01:00 02/15/24 00:00 02/15/24 00:00 02/14/24 23:52 10 100 02/14/24 23:06 02/14/24 23:00 Laboratory Results 02/15/24 04:23 02/14/24 04:04 PG Care Time/CCT Total # of Minutes Spent Total Time Spent with Patient: Total time spent is greater than 50% in coordination of care (as documented) at patient's floor/unit and/or counseling patient: Coding Level of Care Code 29387 SUB INP/OBS CARE 3/50MIN Diagnoses Acute and chronic respiratory failure with hypoxia J96.21 Atelectasis J98.11 COVID-19 U07.1 S/P percutaneous endoscopic gastrostomy (PEG) tube placement Z93.1 Seizure disorder G40.909 Cerebral palsy G80.9
[2024-02-15] MEDS: PATIENT'S OWN ENTERAL FEEDING GT SCH (11:30)
[2024-02-15] MEDS: TUBE FEEDING WATER FLUSH GT SCH ×2 (11:30→13:26)
[2024-02-15] MEDS: TRIMETH IV ONE (15:58)
[2024-02-15] MEDS: DEXTROSE 5% IV ONE (15:58)
[2024-02-15] MEDS: SULFA IV ONE (15:58)
[2024-02-16] MEDS: DEXTROSE 5% IV SCH (03:03)
[2024-02-16] MEDS: TRIMETH IV SCH (03:03)
[2024-02-16] MEDS: SULFA IV SCH (03:03)
[2024-02-16 05:06] LABS: Hematocrit (blood only) 30.3 % (37.0-47.0); Hemoglobin 10.6 g/dl (12.0-16.0); Immature Granulocytes # (auto) 0.02 K/uL (0.01-0.20); Immature Granulocytes % (auto) 0.4 %; Lymphocytes # (auto) 0.92 K/uL (1.20-3.40); Lymphocytes % (auto) 19.1 %; Mean Corpuscular Volume 97.1 fL (80.0-100.0); Mean Platelet Volume 9.5 fL (9.4-12.4); Monocytes # (auto) 0.38 K/uL (0.11-0.59); Monocytes % (auto) 7.9 %; Neutrophils % (auto) 72.6 %; Platelet Count 67 K/uL (130-400); RDW Coefficient of Variation 12.4 % (11.5-14.5); Red Blood Count 3.12 M/uL (4.20-5.40); White Blood Count 4.82 K/ul (4.8-10.8)
[2024-02-16 05:14] LABS: BUN Creatinine Ratio 34.1 (10-20); Calcium 8.3 mg/dl (8.6-10.3); Creatinine Clr Calc Pharmacy 165.9 ml/min; Potassium 3.5 mmol/L (3.5-5.1)
[2024-02-16] MEDS: POTASSIUM CHLORIDE 20 MEQ/15 ML UDC PO STA (07:59)
--- NOTE | 2024-02-16 08:39 | XRay Report ---
EXAM: XR chest 1V portable CLINICAL HISTORY: EVAL LUNG RIVAS. TECHNIQUE: An X-ray image of the chest is obtained in AP projection. COMPARISON: Prior study dated 08/16/2020 FINDINGS: Endotracheal tube tip seen 5.1 cm from alannah Left CVL with its tip seen at the cavoatrial junction Pulmonary Parenchyma: Bilateral slight prominent bronchovascular markings and prominent hilar vascularity could be due to pulmonary congestion. Left lung lower zone opacity/small effusion. No evidence of right pleural effusion or pleural thickening. Heart and Mediastinum: Heart size and shape are normal. No mediastinal widening or masses. No hilar or mediastinal lymphadenopathy. Bony Thorax: Left 4th rib anterior aspect radiolucent line likely a shadow overlap. Soft Tissues: Soft tissues overlying the chest wall are unremarkable. IMPRESSION: 1. Left lung lower zone opacity/small effusion (new finding). 2. Bilateral slight prominent bronchovascular markings and prominent hilar vascularity could be due to pulmonary congestion. 3. Endotracheal tube tip seen 5.1 cm from alannah. 4. Left CVL with its tip seen at the cavoatrial junction. Electronically signed by Marleny Wisdom 02-16-2024 08:38 AM
--- NOTE | 2024-02-16 08:58 | Critical Care Progress Note ---
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 She was found to be COVID-positive. Cultures have been negative. She did have a low-grade fever. PLAN: Neuro: Severe cerebral palsy -Continue baclofen, fluoxetine, Depakote, Zonegran -Discontinue dexmedetomidine Resp: Chronic vent dependent respiratory failure: Utilizes at night Chronic trach dependence -Known colonization with Pseudomonas and stenotrophomonas at baseline -Intermediate resistance to cefepime Pseudomonas, stenotrophomonas sensitive to Bactrim Convert from full ventilatory support to pressure support today -My goal is to slowly scale back ventilatory support while hopefully stenting airways open with PEEP and allowing for secretion clearance COVID pneumonia -Left lung aeration looks adequate on chest x-ray -continue aggressive chest physiotherapy -Treatment with Bactrim Fluids/Renal: Follow renal function ID: COVID-pneumonia versus secondary bacterial infection -Patient with known colonizers -Treat with 14-day course of Bactrim, discontinue cefepime -Treat today with IV and transition to oral Bactrim tomorrow -Patient afebrile with white count returning to baseline GI/Nutrition: Bolus feedings Heme: DVT prophylaxis: Patient has never been ambulatory, no indication for DVT prophylaxis chemical nor mechanical Endocrine: ICU hyperglycemia protocol Vascular access: Peripheral IV Code Status: DNR in event of cardiac arrest, chronic ventilator dependence at baseline -CODE STATUS updated to reflect cardiac arrest wishes -Patient is chronically vent dependent at baseline Disposition: ICU while requiring invasive positive pressure ventilation during day Admission and Anticipated Discharge Date Admission Date: February 12, 2024 Supervising Physician Co-Signing Physician Notes I have personally spent 30 minutes of critical care time in the direct management of this patient. This is a life/limb threatening event. This includes time spent evaluating patient, direct bedside care, chart review, placing orders, interpretation of diagnostic studies, discussion with consultants, patient, and/or family members regarding treatment decisions, as well as other required patient management activities. This time is exclusive of all separately billable procedures, and teaching time and separate from and in addition to any other critical care service time. Subjective No overnight events Physical Exam Physical Exam: General: nontoxic. Skin: Warm, dry, Head: Atraumatic Ears, nose, mouth and throat: Tracheostomy tube present Cardiovascular: Normal peripheral perfusion Respiratory: Ventilator settings reviewed Gastrointestinal: Non distended Musculoskeletal: No deformity Results & Data Results & Data Vital Signs (Past 12 Hours) Vital Signs Temp Pulse Resp BP Pulse Ox FiO2 02/16/24 08:10 96 H 30 H 96 50 02/16/24 08:03 72 21 95 60 02/16/24 06:00 90/58 L 02/16/24 06:00 36.8 C 72 22 89 L 02/16/24 05:00 92/60 L 02/16/24 05:00 75 23 88 L 02/16/24 04:06 65 21 91 02/16/24 04:00 95/57 L 02/16/24 04:00 95/57 L 02/16/24 04:00 60 02/16/24 03:57 61 28 H 97 02/16/24 03:50 60 23 88 L 60 02/16/24 03:00 94/62 L 02/16/24 03:00 94/62 L 02/16/24 03:00 94/62 L 02/16/24 03:00 81 25 H 81 L 02/16/24 02:12 90 28 H 89 L 02/16/24 02:00 98/61 L 02/16/24 01:54 87 30 H 96 02/16/24 01:09 77 22 98 02/16/24 01:00 98/60 L 02/16/24 01:00 98/60 L 02/16/24 01:00 98/60 L 02/16/24 00:35 80 22 91 02/16/24 00:14 74 22 92 02/16/24 00:00 40 02/15/24 23:49 88 23 93 40 02/15/24 23:05 88 22 95 02/15/24 23:00 37 C 95/60 L 02/15/24 22:59 86 22 91 02/15/24 22:02 91 H 24 90 02/15/24 22:00 95/60 L 02/15/24 22:00 95/60 L 02/15/24 22:00 95/60 L 02/15/24 21:57 90 22 90 02/15/24 21:30 96 H 23 90 02/15/24 21:00 87/47 L 02/15/24 20:54 104 H 20 98 Critical Care Results & Data Vital Signs (Past 12 Hours) Vital Signs Temp Pulse Resp BP Pulse Ox FiO2 02/16/24 08:10 96 H 30 H 96 50 02/16/24 08:03 72 21 95 60 02/16/24 06:00 90/58 L 02/16/24 06:00 36.8 C 72 22 89 L 02/16/24 05:00 92/60 L 02/16/24 05:00 75 23 88 L 02/16/24 04:06 65 21 91 02/16/24 04:00 95/57 L 02/16/24 04:00 95/57 L 02/16/24 04:00 60 02/16/24 03:57 61 28 H 97 02/16/24 03:50 60 23 88 L 60 02/16/24 03:00 94/62 L 02/16/24 03:00 94/62 L 02/16/24 03:00 94/62 L 02/16/24 03:00 81 25 H 81 L 02/16/24 02:12 90 28 H 89 L 02/16/24 02:00 98/61 L 02/16/24 01:54 87 30 H 96 02/16/24 01:09 77 22 98 02/16/24 01:00 98/60 L 02/16/24 01:00 98/60 L 02/16/24 01:00 98/60 L 02/16/24 00:35 80 22 91 02/16/24 00:14 74 22 92 02/16/24 00:00 40 02/15/24 23:49 88 23 93 40 02/15/24 23:05 88 22 95 02/15/24 23:00 37 C 95/60 L 02/15/24 22:59 86 22 91 02/15/24 22:02 91 H 24 90 02/15/24 22:00 95/60 L 02/15/24 22:00 95/60 L 02/15/24 22:00 95/60 L 02/15/24 21:57 90 22 90 02/15/24 21:30 96 H 23 90 02/15/24 21:00 87/47 L 02/15/24 20:54 104 H 20 98 Lab & Micro Results (Past 24 Hours) RBC 3.12 M/uL (4.20-5.40) L 02/16/24 WBC 4.82 K/ul (4.8-10.8) 02/16/24 Hgb 10.6 g/dl (12.0-16.0) L 02/16/24 Hct 30.3 % (37.0-47.0) L 02/16/24 MCV 97.1 fL (80.0-100.0) 02/16/24 MCH 34.0 pg (25.0-34.0) 02/16/24 MCHC 35.0 g/dL (32.0-36.0) 02/16/24 RDW Standard Deviation 44.0 fL (36.4-46.3) 02/16/24 RDW Coefficient of Variation 12.4 % (11.5-14.5) 02/16/24 Plt Count 67 K/uL (130-400) L 02/16/24 MPV 9.5 fL (9.4-12.4) 02/16/24 Neutrophils (%) (Auto) 72.6 % 02/16/24 Lymphocytes (%) (Auto) 19.1 % 02/16/24 Monocytes # (Auto) 0.38 K/uL (0.11-0.59) 02/16/24 Eosinophils # (Auto) 0.00 K/uL (0.00-0.50) 02/16/24 Immature Granulocyte % (Auto) 0.4 % 02/16/24 Neutrophils # (Auto) 3.50 K/uL (1.40-6.50) 02/16/24 Lymphocytes # (Auto) 0.92 K/uL (1.20-3.40) L 02/16/24 Monocytes # (Auto) 0.38 K/uL (0.11-0.59) 02/16/24 Eosinophils # (Auto) 0.00 K/uL (0.00-0.50) 02/16/24 Basophils # (Auto) 0.00 K/uL (0.00-0.20) 02/16/24 Immature Granulocyte # (Auto) 0.02 K/uL (0.01-0.20) 4 Na 135 mmol/L (136-145) L 02/16/24 K 3.5 mmol/L (3.5-5.1) 02/16/24 Cl 103 mmol/L (98-107) 02/16/24 CO2 25 mmol/L (21-32) 02/16/24 Anion Gap 7 (3-11) 02/16/24 BUN 14 mg/dl (6-23) 02/16/24 Creatinine 0.41 mg/dl (0.6-1.2) L 02/16/24 BUN/Creatinine Ratio 34.1 (10-20) H 02/16/24 Glu 143 mg/dl (70-99(Fasting)) H 02/16/24 Ca 8.3 mg/dl (8.6-10.3) L 02/16/24 Calcium Level 8.3 mg/dl (8.6-10.3) L 02/16/24 04:39 Microbiology 02/12/24 14:13 Gram Stain - Final Sputum,Trach Sputum Culture - Preliminary Pseudomonas aeruginosa Stenotrophomonas maltophilia 02/15/24 Unknown Gram Stain - Final Sputum,Trach Diagnostic Findings (Past 24 Hours) Chest X-Ray 02/15/24 09:45 XR chest 1V portable CLINICAL HISTORY: infiltrate TECHNIQUE: Single frontal radiograph of the chest was obtained. Comparison: Comparison is made to chest radiograph 02/14/2024 FINDINGS: Left portacatheter is seen. Tracheostomy tube is seen. The cardiomediastinal silhouette is normal. Left airspace opacity is seen. No evidence of pleural effusion or pneumothorax. IMPRESSION: Faint left airspace opacity. This may represent atelectasis, pneumonia, and/or aspiration. ACT 112: Negative or not required by law. Electronically signed by: Raudel Rich M.D. 02/15/2024 10:50 AM Chest X-Ray 02/16/24 06:15 EXAM: XR chest 1V portable CLINICAL HISTORY: EVAL LUNG RIVAS. TECHNIQUE: An X-ray image of the chest is obtained in AP projection. COMPARISON: Prior study dated 08/16/2020 FINDINGS: Endotracheal tube tip seen 5.1 cm from alannah Left CVL with its tip seen at the cavoatrial junction Pulmonary Parenchyma: Bilateral slight prominent bronchovascular markings and prominent hilar vascularity could be due to pulmonary congestion. Left lung lower zone opacity/small effusion. No evidence of right pleural effusion or pleural thickening. Heart and Mediastinum: Heart size and shape are normal. No mediastinal widening or masses. No hilar or mediastinal lymphadenopathy. Bony Thorax: Left 4th rib anterior aspect radiolucent line likely a shadow overlap. Soft Tissues: Soft tissues overlying the chest wall are unremarkable. IMPRESSION: 1. Left lung lower zone opacity/small effusion (new finding). 2. Bilateral slight prominent bronchovascular markings and prominent hilar vascularity could be due to pulmonary congestion. 3. Endotracheal tube tip seen 5.1 cm from alannah. 4. Left CVL with its tip seen at the cavoatrial junction. Electronically signed by Marleny Wisdom 02-16-2024 08:38 AM I & O Totals 24 Hours 02/15/24 02/16/24 02/17/24 06:59 06:59 06:59 Intake Total 1490 / 1490 2068.000 / 2068.000 Output Total 442 / 442 506 / 506 Balance 1048 / 1048 1562.000 / 1562.000 Cumulative 02/12/24 11:38 thru 02/16/24 06:54 Intake Total 8058.000 Output Total 3000 Balance 5058.000 RT Ventilator Mngmt (Last Documented) Ventilator Ordered Settings Ventilator Support Mode Pressure Control 02/16/24 08:10 Respiratory Rate 30 02/16/24 08:10 Ventilator Tidal Volume 350 02/16/24 08:03 Setting Minute Ventilation 14.6 02/16/24 08:10 Ventilator Positive Pressure 10 02/16/24 08:10 Support Setting Positive End Expiratory 5 02/16/24 08:10 Pressure Fraction of Inspired Oxygen 50 02/16/24 08:10 Machine Comment rate decreased to 20 per ETCO2-25 02/16/24 03:50 Ventilator - PT Measurements Respiratory Rate 30 Exhaled Tidal Volume 473 Minute Ventilation 14.6 Peak Inspiratory Airway 21 Pressure Plateau Pressure 20.1 Respiratory Cycle Inspiratory: 1;2.5 Expiratory Ratio Inspiratory Phase Time 0.86 End-Tidal CO2 18 Static Lung Compliance 29.01 Dynamic Lung Compliance 29.56 Normal Static Lung Compliance 47.00 Patient Measurements Comment patient saturating 87-88% so fio2 increased to 60%. 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
[2024-02-16] MEDS: CEFTOLOZANE/TAZOBACTAM 3,000 MG in DEXTROSE 5% 100 ML IV SCH (12:06)
--- NOTE | 2024-02-16 14:47 | Hospitalist Progress Note ---
Date of Service February 16, 2024 Assessment & Plan (1) Acute and chronic respiratory failure with hypoxia: Plan: She has been weaned off ventilator support. Supplemental oxygen per tracheostomy to maintain saturation greater than 90%. (2) Atelectasis: Plan: Left lower lobe area. Improved appearance on chest x-ray today, February 15. Possible associated pneumonia. Known bronchiectasis in the left lower lobe. Cefepime day 2. Pseudomonas previously isolated in sputum (3) COVID-19: Plan: By nasal swab. Current variants are not causing pneumonia and I highly doubt this is having any current role in her current clinical state. No indication for remdesivir (4) S/P percutaneous endoscopic gastrostomy (PEG) tube placement: Plan: stable. Continue tube feedings as usual (5) Seizure disorder: Plan: Stable. Continue current medical management (6) Cerebral palsy: Plan: Severe. Nonverbal. Supportive care Plan Hopeful discharge back to home within the next 2 to 3 days. Admission and Anticipated Discharge Date Admission Date: February 12, 2024 Subjective Improved overall. She has been weaned off of ventilator support and she is off pressor support. Review of Systems 2 Review of Systems: The patient is nonverbal and unable to answer any questions regarding review of systems Physical Exam 2 Physical Exam: General-awake but nonverbal. No distress. Severe cerebral palsy at baseline HEENT-head atraumatic and normocephalic, both eyes are open but she is unable to track Neck-no lymphadenopathy or thyromegaly, trachea midline. She has a permanent tracheostomy and currently on ventilator support Chest-scattered bilateral rhonchi. No wheezing. Cardiac-regular rate and rhythm, normal S1 and S2 Abdomen-normal bowel sounds, no hepatosplenomegaly. PEG tube in place Extremities-bilateral upper extremity contractures. Atrophy of all 4 extremities noted. Neuro-severe cerebral palsy at baseline. Nonverbal. Functional quadriplegia Psych-cannot assess Results & Data Results & Data Vital Signs (Past 12 Hours) Vital Signs Temp Pulse Pulse Resp BP Pulse Ox Pulse Ox 02/16/24 13:09 36.9 C 02/16/24 12:57 106 H 18 91 02/16/24 11:00 78 23 91 02/16/24 11:00 89/51 L 02/16/24 10:00 96/61 L 02/16/24 10:00 86 14 95 02/16/24 09:03 92 H 27 H 96 02/16/24 09:00 94/50 L 02/16/24 09:00 96 02/16/24 08:59 36.7 C 02/16/24 08:42 96 H 29 H 95 02/16/24 08:33 97 H 30 H 96 02/16/24 08:10 96 H 30 H 96 02/16/24 08:03 72 21 95 02/16/24 08:00 02/16/24 07:50 02/16/24 07:18 71 20 93 02/16/24 07:00 86/54 L 02/16/24 06:56 78 02/16/24 06:51 74 21 92 02/16/24 06:00 90/58 L 02/16/24 06:00 36.8 C 72 22 89 L 02/16/24 05:00 92/60 L 02/16/24 05:00 75 23 88 L 02/16/24 04:06 65 21 91 02/16/24 04:00 95/57 L 02/16/24 04:00 95/57 L 02/16/24 04:00 02/16/24 03:57 61 28 H 97 02/16/24 03:50 60 23 88 L 02/16/24 03:00 94/62 L 02/16/24 03:00 94/62 L 02/16/24 03:00 94/62 L 02/16/24 03:00 81 25 H 81 L O2 Del Method O2 Del Method FiO2 02/16/24 13:09 02/16/24 12:57 Trach Collar 30 02/16/24 11:00 02/16/24 11:00 02/16/24 10:00 02/16/24 10:00 02/16/24 09:03 02/16/24 09:00 02/16/24 09:00 Mechanical Vent 02/16/24 08:59 02/16/24 08:42 02/16/24 08:33 Mechanical Vent 02/16/24 08:10 50 02/16/24 08:03 60 02/16/24 08:00 50 02/16/24 07:50 Mechanical Vent 02/16/24 07:18 02/16/24 07:00 02/16/24 06:56 02/16/24 06:51 02/16/24 06:00 02/16/24 06:00 02/16/24 05:00 02/16/24 05:00 02/16/24 04:06 02/16/24 04:00 02/16/24 04:00 02/16/24 04:00 60 02/16/24 03:57 02/16/24 03:50 60 02/16/24 03:00 02/16/24 03:00 02/16/24 03:00 02/16/24 03:00 Laboratory Results 02/16/24 04:39 02/16/24 04:39 PG Care Time/CCT Total # of Minutes Spent Total Time Spent with Patient: Total time spent is greater than 50% in coordination of care (as documented) at patient's floor/unit and/or counseling patient: Coding Level of Care Code 09979 SUB INP/OBS CARE 2/35MIN Diagnoses Acute and chronic respiratory failure with hypoxia J96.21 Atelectasis J98.11 COVID-19 U07.1 S/P percutaneous endoscopic gastrostomy (PEG) tube placement Z93.1 Seizure disorder G40.909 Cerebral palsy G80.9
[2024-02-16] MEDS: fentaNYL citrate PF 100 MCG/2 ML VIAL IV PRN (23:17)
[2024-02-16] MEDS ORDERED: STAT IV Infusion **Titration per Protocol STA (23:46)
[2024-02-16] MEDS: dexMEDEtomidine 200 MCG/50 ML BAG IV SCH (23:58)
[2024-02-17] MEDS: fentaNYL citrate PF 100 MCG/2 ML VIAL IV ONE (00:48)
[2024-02-17 04:55] LABS: Basophils # (auto) 0.01 K/uL (0.00-0.20); Basophils % (auto) 0.1 %; Hemoglobin 11.4 g/dl (12.0-16.0); Immature Granulocytes # (auto) 0.03 K/uL (0.01-0.20); Immature Granulocytes % (auto) 0.3 %; Lymphocytes # (auto) 1.42 K/uL (1.20-3.40); Lymphocytes % (auto) 15.9 %; Mean Corpuscular Hemoglobin 33.8 pg (25.0-34.0); Mean Corpuscular Hgb Conc 34.5 g/dL (32.0-36.0); Mean Corpuscular Volume 97.9 fL (80.0-100.0); Mean Platelet Volume 9.4 fL (9.4-12.4); Monocytes # (auto) 1.06 K/uL (0.11-0.59); Monocytes % (auto) 11.9 %; Neutrophils # (auto) 6.41 K/uL (1.40-6.50); Neutrophils % (auto) 71.8 %; Platelet Count 103 K/uL (130-400); RDW Coefficient of Variation 12.5 % (11.5-14.5); RDW Standard Deviation 45.1 fL (36.4-46.3); Red Blood Count 3.37 M/uL (4.20-5.40); White Blood Count 8.93 K/ul (4.8-10.8)
[2024-02-17 05:04] LABS: BUN Creatinine Ratio 28.1 (10-20); Calcium 8.9 mg/dl (8.6-10.3); Creatinine Clr Calc Pharmacy 124.7 ml/min
--- NOTE | 2024-02-17 06:17 | Critical Care Progress Note ---
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 She was found to be COVID-positive. Cultures have been negative. She did have a low-grade fever. PLAN: Neuro: Severe cerebral palsy -Continue baclofen, fluoxetine, Depakote, Zonegran -Hold dexmedetomidine once converted to trach collar Resp: Chronic vent dependent respiratory failure: Utilizes at night Chronic trach dependence -Known colonization with Pseudomonas and stenotrophomonas at baseline -Intermediate resistance to cefepime Pseudomonas, stenot rophomonas sensitive to Bactrim Wean to pressure support versus trach collar -Tolerated trach collar trials yesterday -Still needs pulmonary toilet for secretion clearance COVID pneumonia -Left lung aeration looks adequate on chest x-ray -continue aggressive chest physiotherapy -Treatment with Bactrim and added Zerbaxa for Pseudomonas and Moraxella Fluids/Renal: Follow renal function ID: COVID-pneumonia versus secondary bacterial infection -Patient with known colonizers -Treat with 14-day course of Bactrim convert to oral: Patient afebrile no leukocytosis -Anticipate 14-day course of Zerbaxa -Would trend procalcitonin and would discontinue antibiotics if procalcitonin returns to normal prior to 14-day duration GI/Nutrition: Bolus feedings Heme: DVT prophylaxis: Patient has never been ambulatory, no indication for DVT prophylaxis chemical nor mechanical Endocrine: ICU hyperglycemia protocol Vascular access: Peripheral IV Code Status: DNR in event of cardiac arrest, chronic ventilator dependence at baseline -CODE STATUS updated to reflect cardiac arrest wishes -Patient is chronically vent dependent at baseline Disposition: ICU while requiring invasive positive pressure ventilation during day Admission and Anticipated Discharge Date Admission Date: February 12, 2024 Supervising Physician Co-Signing Physician Notes I have personally spent 35 minutes of critical care time in the direct management of this patient. This is a life/limb threatening event. This includes time spent evaluating patient, direct bedside care, chart review, placing orders, interpretation of diagnostic studies, discussion with consultants, patient, and/or family members regarding treatment decisions, as well as other required patient management activities. This time is exclusive of all separately billable procedures, and teaching time and separate from and in addition to any other critical care service time. Subjective Overnight patient had issues being asynchronous with ventilator. This required reinitiation of dexmedetomidine. She had desaturated into the 80s, this improved when the patient was on Precedex and able to remain on right side. Feel the patient has limited pulmonary reserve, there is still significant VQ mismatch and probable dependent atelectasis of the left lung. Patient was lavaged with minimal suction output. Physical Exam Physical Exam: General: nontoxic. Skin: Warm, dry, Head: Atraumatic Ears, nose, mouth and throat: Tracheostomy tube present Cardiovascular: Normal peripheral perfusion Respiratory: Ventilator settings reviewed Gastrointestinal: Non distended Musculoskeletal: No deformity Results & Data Results & Data Vital Signs (Past 12 Hours) Vital Signs Pulse Pulse Resp BP Pulse Ox O2 Del Method FiO2 02/17/24 05:41 91 H 24 100 Mechanical Vent 02/17/24 03:19 89 23 96 70 02/17/24 01:22 90 02/17/24 00:30 94 H 31 H 85 L 02/17/24 00:25 102 H 36 H 98 60 02/16/24 23:30 114 H 37 H 95 100 02/16/24 23:00 103/67 02/16/24 23:00 112 H 28 H 88 L 02/16/24 22:53 30 H 90 70 02/16/24 22:06 108 H 43 H 81 L 02/16/24 22:01 100/58 L 02/16/24 22:01 100/58 L 02/16/24 21:57 117 H 28 H 02/16/24 21:03 100 H 20 86 L 02/16/24 21:00 102/60 02/16/24 21:00 102/60 02/16/24 20:51 102 H 27 H 92 02/16/24 20:21 99 H 32 H 92 02/16/24 20:00 97/67 L 02/16/24 20:00 Trach Collar 70 02/16/24 19:57 99 H 57 H 92 02/16/24 19:37 90 18 95 Trach Collar 30 02/16/24 19:00 90 21 96 Critical Care Results & Data Vital Signs (Past 12 Hours) Vital Signs Pulse Pulse Resp BP Pulse Ox O2 Del Method FiO2 02/17/24 05:41 91 H 24 100 Mechanical Vent 02/17/24 03:19 89 23 96 70 02/17/24 01:22 90 02/17/24 00:30 94 H 31 H 85 L 02/17/24 00:25 102 H 36 H 98 60 02/16/24 23:30 114 H 37 H 95 100 02/16/24 23:00 103/67 02/16/24 23:00 112 H 28 H 88 L 02/16/24 22:53 30 H 90 70 02/16/24 22:06 108 H 43 H 81 L 02/16/24 22:01 100/58 L 02/16/24 22:01 100/58 L 02/16/24 21:57 117 H 28 H 02/16/24 21:03 100 H 20 86 L 02/16/24 21:00 102/60 02/16/24 21:00 102/60 02/16/24 20:51 102 H 27 H 92 02/16/24 20:21 99 H 32 H 92 02/16/24 20:00 97/67 L 02/16/24 20:00 Trach Collar 70 02/16/24 19:57 99 H 57 H 92 02/16/24 19:37 90 18 95 Trach Collar 30 02/16/24 19:00 90 21 96 Lab & Micro Results (Past 24 Hours) RBC 3.37 M/uL (4.20-5.40) L 02/17/24 WBC 8.93 K/ul (4.8-10.8) 02/17/24 Hgb 11.4 g/dl (12.0-16.0) L 02/17/24 Hct 33.0 % (37.0-47.0) L 02/17/24 MCV 97.9 fL (80.0-100.0) 02/17/24 MCH 33.8 pg (25.0-34.0) 02/17/24 MCHC 34.5 g/dL (32.0-36.0) 02/17/24 RDW Standard Deviation 45.1 fL (36.4-46.3) 02/17/24 RDW Coefficient of Variation 12.5 % (11.5-14.5) 02/17/24 Plt Count 103 K/uL (130-400) L 02/17/24 MPV 9.4 fL (9.4-12.4) 02/17/24 Neutrophils (%) (Auto) 71.8 % 02/17/24 Lymphocytes (%) (Auto) 15.9 % 02/17/24 Monocytes # (Auto) 1.06 K/uL (0.11-0.59) H 02/17/24 Eosinophils # (Auto) 0.00 K/uL (0.00-0.50) 02/17/24 Immature Granulocyte % (Auto) 0.3 % 02/17/24 Neutrophils # (Auto) 6.41 K/uL (1.40-6.50) 02/17/24 Lymphocytes # (Auto) 1.42 K/uL (1.20-3.40) 02/17/24 Monocytes # (Auto) 1.06 K/uL (0.11-0.59) H 02/17/24 Eosinophils # (Auto) 0.00 K/uL (0.00-0.50) 02/17/24 Basophils # (Auto) 0.01 K/uL (0.00-0.20) 02/17/24 Immature Granulocyte # (Auto) 0.03 K/uL (0.01-0.20) 4 Na 136 mmol/L (136-145) 02/17/24 K 4.0 mmol/L (3.5-5.1) 02/17/24 Cl 106 mmol/L (98-107) 02/17/24 CO2 22 mmol/L (21-32) 02/17/24 Anion Gap 8 (3-11) 02/17/24 BUN 16 mg/dl (6-23) 02/17/24 Creatinine 0.57 mg/dl (0.6-1.2) L 02/17/24 BUN/Creatinine Ratio 28.1 (10-20) H 02/17/24 Glu 88 mg/dl (70-99(Fasting)) 02/17/24 Ca 8.9 mg/dl (8.6-10.3) 02/17/24 Calcium Level 8.9 mg/dl (8.6-10.3) 02/17/24 04:25 Microbiology 02/12/24 14:13 Gram Stain - Final Sputum,Trach Sputum Culture - Preliminary Pseudomonas aeruginosa Stenotrophomonas maltophilia Moraxella catarrhalis 02/15/24 Unknown Gram Stain - Final Sputum,Trach Sputum Culture - Preliminary Pseudomonas aeruginosa Pseudomonas aeruginosa#2 Moraxella catarrahalis (B.cat) Diagnostic Findings (Past 24 Hours) Chest X-Ray 02/16/24 06:15 EXAM: XR chest 1V portable CLINICAL HISTORY: EVAL LUNG RIVAS. TECHNIQUE: An X-ray image of the chest is obtained in AP projection. COMPARISON: Prior study dated 08/16/2020 FINDINGS: Endotracheal tube tip seen 5.1 cm from alannah Left CVL with its tip seen at the cavoatrial junction Pulmonary Parenchyma: Bilateral slight prominent bronchovascular markings and prominent hilar vascularity could be due to pulmonary congestion. Left lung lower zone opacity/small effusion. No evidence of right pleural effusion or pleural thickening. Heart and Mediastinum: Heart size and shape are normal. No mediastinal widening or masses. No hilar or mediastinal lymphadenopathy. Bony Thorax: Left 4th rib anterior aspect radiolucent line likely a shadow overlap. Soft Tissues: Soft tissues overlying the chest wall are unremarkable. IMPRESSION: 1. Left lung lower zone opacity/small effusion (new finding). 2. Bilateral slight prominent bronchovascular markings and prominent hilar vascularity could be due to pulmonary congestion. 3. Endotracheal tube tip seen 5.1 cm from alannah. 4. Left CVL with its tip seen at the cavoatrial junction. Electronically signed by Marleny Wisdom 02-16-2024 08:38 AM I & O Totals 24 Hours 02/15/24 02/16/24 02/17/24 06:59 06:59 06:59 Intake Total 1490 / 1490 2068.000 / 2068.000 829.447 / 829.447 Output Total 442 / 442 506 / 506 1200 / 1200 Balance 1048 / 1048 1562.000 / 1562.000 -370.553 / -370.553 Cumulative 02/12/24 11:38 thru 02/17/24 05:02 Intake Total 8887.447 Output Total 4200 Balance 4687.447 RT Ventilator Mngmt (Last Documented) Ventilator Ordered Settings Ventilator Support Mode SIMV 02/17/24 03:19 Respiratory Rate 24 02/17/24 05:41 Ventilator Tidal Volume 350 02/17/24 03:19 Setting Minute Ventilation 7.9 02/17/24 03:19 Ventilator Positive Pressure 10 02/17/24 03:19 Support Setting Positive End Expiratory 10 02/17/24 03:19 Pressure Fraction of Inspired Oxygen 70 02/17/24 03:19 Machine Comment rate decreased to 20 per ETCO2-25 02/16/24 03:50 Ventilator - PT Measurements Respiratory Rate 24 Exhaled Tidal Volume 349 Minute Ventilation 7.9 Peak Inspiratory Airway 30 Pressure Plateau Pressure 26 Respiratory Cycle Inspiratory: 1:3 Expiratory Ratio Inspiratory Phase Time 0.7 End-Tidal CO2 21 Static Lung Compliance 21.81 Dynamic Lung Compliance 17.45 Normal Static Lung Compliance 45.00 Patient Measurements Comment pt placed onto SIMV after getting precedex per [facility] Coding Level of Care Code 04869 CRITICAL CARE 1ST 30-74M Diagnoses Quadriplegic cerebral palsy G80.8 Pseudomonas aeruginosa colonization Z22.39 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
--- NOTE | 2024-02-17 08:34 | XRay Report ---
EXAM: XR chest 1V portable CLINICAL HISTORY: F/U. TECHNIQUE: Xray chest was obtained in frontal projection. COMPARISON: CR dated 02/16/2024. FINDINGS: Endotracheal tube tip seen 5.0 cm from alannah Left CVL with its tip seen at the cavoatrial junction Pulmonary Parenchyma: Mild interval improvement was noted in the prominence of left bronchovascular markings. Unchanged prominence of Bronchovascular markings in the right lung field. Left lung lower zone opacity/small effusion. No evidence of right pleural effusion or pleural thickening. Heart and Mediastinum: Heart size and shape are normal. No mediastinal widening or masses. No hilar or mediastinal lymphadenopathy. Bony Thorax: Left 4th rib anterior aspect radiolucent line likely a shadow overlap. Soft Tissues: Soft tissues overlying the chest wall are unremarkable. IMPRESSION: 1. Mild interval improvement was noted in the prominence of left bronchovascular markings. 2. Left lung lower zone opacity/small effusion, stable. 3. The rest of the findings are unchanged. Electronically signed by Marleny Wisdom 02-17-2024 08:34 AM
--- NOTE | 2024-02-17 11:41 | Hospitalist Progress Note ---
Date of Service February 17, 2024 Assessment & Plan (1) Acute and chronic respiratory failure with hypoxia: Plan: She has been weaned off ventilator support. Supplemental oxygen per tracheostomy to maintain saturation greater than 90%. (2) Atelectasis: Plan: Left lower lobe area. Improved appearance on chest x-ray today, February 16. Possible associated pneumonia. Known bronchiectasis in the left lower lobe. She is now on Bactrim and Zerbaxa antibiotic. Pseudomonas previously isolated in sputum (3) COVID-19: Plan: By nasal swab. Current variants are not causing pneumonia and I highly doubt this is having any current role in her current clinical state. No indication for remdesivir (4) S/P percutaneous endoscopic gastrostomy (PEG) tube placement: Plan: stable. Continue tube feedings as usual (5) Seizure disorder: Plan: Stable. Continue current medical management (6) Cerebral palsy: Plan: Severe. Nonverbal. Supportive care Plan Eventual discharge back to her previous living arrangements Admission and Anticipated Discharge Date Admission Date: February 12, 2024 Subjective Awake. Nonverbal. No apparent distress. She is now on Bactrim and Zerbaxa antibiotics. Platelet count has improved to 103,000. Portable chest x-ray done today, February 16, reveals better aeration of the left lower lobe. She apparently is not stable enough for transfer out of the ICU however Review of Systems 2 Review of Systems: The patient is nonverbal and unable to answer any questions regarding review of systems Physical Exam 2 Physical Exam: General-awake but nonverbal. No distress. Severe cerebral palsy at baseline HEENT-head atraumatic and normocephalic, both eyes are open but she is unable to track Neck-no lymphadenopathy or thyromegaly, trachea midline. She has a permanent tracheostomy and currently on ventilator support Chest-scattered bilateral rhonchi. No wheezing. Cardiac-regular rate and rhythm, normal S1 and S2 Abdomen-normal bowel sounds, no hepatosplenomegaly. PEG tube in place Extremities-bilateral upper extremity contractures. Atrophy of all 4 extremities noted. Neuro-severe cerebral palsy at baseline. Nonverbal. Functional quadriplegia Psych-cannot assess Results & Data Results & Data Vital Signs (Past 12 Hours) Vital Signs Pulse Pulse Resp BP Pulse Ox O2 Del Method O2 Flow Rate 02/17/24 11:34 91 H 24 90 Trach Collar 12 02/17/24 11:00 89 41 H 103/75 89 L Trach Collar 10 02/17/24 10:03 95 H 36 H 100/64 92 Trach Collar 10 02/17/24 09:00 99 H 31 H 103/64 90 Trach Collar 10 02/17/24 08:00 97 H 18 108/52 L 95 Trach Collar 10 02/17/24 07:00 110 H 29 H 96/61 L 89 L Trach Collar 10 02/17/24 05:41 91 H 24 100 Mechanical Vent 02/17/24 03:19 89 23 96 02/17/24 01:22 02/17/24 00:30 94 H 31 H 85 L 02/17/24 00:25 102 H 36 H 98 FiO2 02/17/24 11:34 70 02/17/24 11:00 70 02/17/24 10:03 70 02/17/24 09:00 70 02/17/24 08:00 70 02/17/24 07:00 70 02/17/24 05:41 02/17/24 03:19 70 02/17/24 01:22 90 02/17/24 00:30 02/17/24 00:25 60 Laboratory Results 02/17/24 04:25 02/17/24 04:25 PG Care Time/CCT Total # of Minutes Spent Total Time Spent with Patient: Total time spent is greater than 50% in coordination of care (as documented) at patient's floor/unit and/or counseling patient: Coding Level of Care Code 69187 SUB INP/OBS CARE 2/35MIN Diagnoses Acute and chronic respiratory failure with hypoxia J96.21 Atelectasis J98.11 COVID-19 U07.1 S/P percutaneous endoscopic gastrostomy (PEG) tube placement Z93.1 Seizure disorder G40.909 Cerebral palsy G80.9
[2024-02-17] MEDS: SULFAMETHOXAZOLE/TRIMETHOPRIM 200MG/40MG/5ML SUSP PEG SCH (15:40)
[2024-02-18 04:22] LABS: Basophils # (auto) 0.01 K/uL (0.00-0.20); Basophils % (auto) 0.1 %; Hematocrit (blood only) 32.3 % (37.0-47.0); Hemoglobin 11.1 g/dl (12.0-16.0); Immature Granulocytes # (auto) 0.03 K/uL (0.01-0.20); Immature Granulocytes % (auto) 0.4 %; Lymphocytes % (auto) 20.4 %; Mean Corpuscular Hemoglobin 33.3 pg (25.0-34.0); Mean Corpuscular Hgb Conc 34.4 g/dL (32.0-36.0); Mean Platelet Volume 8.9 fL (9.4-12.4); Monocytes # (auto) 0.97 K/uL (0.11-0.59); Monocytes % (auto) 14.1 %; Neutrophils # (auto) 4.45 K/uL (1.40-6.50); Platelet Count 97 K/uL (130-400); RDW Coefficient of Variation 12.2 % (11.5-14.5); Red Blood Count 3.33 M/uL (4.20-5.40); White Blood Count 6.86 K/ul (4.8-10.8)
[2024-02-18 04:39] LABS: BUN Creatinine Ratio 26.8 (10-20); Calcium 8.6 mg/dl (8.6-10.3); Creatinine Clr Calc Pharmacy 173.4 ml/min; Potassium 3.5 mmol/L (3.5-5.1)
--- NOTE | 2024-02-18 07:58 | XRay Report ---
EXAM: XR chest 1V portable CLINICAL HISTORY: EVALUATION OF LUNG RIVAS. TECHNIQUE: X-ray image of the chest was obtained in 1 view: Frontal projection. COMPARISON: X-ray dated 02/17/2024. FINDINGS: A tracheostomy tube was re-demonstrated and well-positioned. A left-sided port-cath line with its tip is seen at the cavoatrial junction. Pulmonary Parenchyma: Mild interval improving left lung lower zone opacity and effusion. Unchanged mild prominence of bronchovascular markings bilaterally. Heart and Mediastinum: Heart size and shape are normal. No mediastinal widening or masses. No hilar or mediastinal lymphadenopathy. Bony Thorax: Bony thorax appears intact without fractures or deformities. Soft Tissues: Soft tissues overlying the chest wall are unremarkable. IMPRESSION: Mild interval improving left lung lower zone opacity and effusion. Electronically signed by Marleny Wisdom 02-18-2024 07:57 AM
--- NOTE | 2024-02-18 09:54 | Critical Care Progress Note ---
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 She was found to be COVID-positive. Cultures have been negative. She did have a low-grade fever. PLAN: Neuro: Severe cerebral palsy -Continue baclofen, fluoxetine, Depakote, Zonegran -Intermittent fentanyl when on invasive ventilator Resp: Chronic vent dependent respiratory failure: Utilizes at night Chronic trach dependence -Known colonization with Pseudomonas and stenotrophomonas at baseline -Intermediate resistance to cefepime Pseudomonas, stenotro phomonas sensitive to Bactrim Continue trach collar trials during a.m. -Tolerated trach collar trials yesterday -Still needs aggressive pulmonary toilet for secretion clearance COVID pneumonia -Left lung aeration looks adequate on chest x-ray -continue aggressive chest physiotherapy -Treatment with Bactrim and Zerbaxa for Pseudomonas and Moraxella Suspect tracheitis secondary to local trauma Fluids/Renal: Follow renal function ID: COVID-pneumonia versus secondary bacterial infection -Patient with known colonizers -Treat with 14-day course of Bactrim convert to oral: Patient afebrile no leukocytosis -Anticipate 14-day course of Zerbaxa -Would trend procalcitonin and would discontinue antibiotics if procalcitonin returns to normal prior to 14-day duration -Procalcitonin set to be drawn on day 7 of antibiotic therapy GI/Nutrition: Bolus feedings: Tolerating Heme: DVT prophylaxis: Patient has never been ambulatory, no indication for DVT prophylaxis chemical nor mechanical Endocrine: ICU hyperglycemia protocol Vascular access: Indwelling port accessed Code Status: DNR in event of cardiac arrest, chronic ventilator dependence at baseline -CODE STATUS updated to reflect cardiac arrest wishes -Patient is chronically vent dependent at baseline Disposition: ICU secondary to need of frequent suctioning through tracheostomy and mechanical ventilation needs -Discussed with and updated patient's mother Admission and Anticipated Discharge Date Admission Date: February 12, 2024 Supervising Physician Co-Signing Physician Notes I have personally spent 35 minutes of critical care time in the direct management of this patient. This is a life/limb threatening event. This includes time spent evaluating patient, direct bedside care, chart review, placing orders, interpretation of diagnostic studies, discussion with consultants, patient, and/or family members regarding treatment decisions, as well as other required patient management activities. This time is exclusive of all separately billable procedures, and teaching time and separate from and in addition to any other critical care service time. Subjective Patient placed on trach collar became agitated and desaturated. Increase of mildly bloody secretions from tracheostomy site. Patient has had regular suctioning and removal of secretions. Typically saturating better when on right side with left lung in a superior position. Physical Exam Physical Exam: General: nontoxic. Skin: Warm, dry, Head: Atraumatic Ears, nose, mouth and throat: Tracheostomy tube present Cardiovascular: Normal peripheral perfusion Respiratory: Ventilator settings reviewed Gastrointestinal: Non distended Musculoskeletal: No deformity Results & Data Results & Data Vital Signs (Past 12 Hours) Vital Signs Temp Pulse Pulse Resp BP Pulse Ox O2 Del Method 02/18/24 09:37 103 H 33 H 95 Trach Collar 02/18/24 09:36 Trach Collar 02/18/24 08:42 02/18/24 08:19 107 H 37 H 94 02/18/24 08:19 110 H 40 H 95 BiPAP 02/18/24 08:01 112/81 02/18/24 08:00 113 H 33 H 94 BiPAP 02/18/24 08:00 37.7 C H 02/18/24 07:06 89 27 H 96 02/18/24 07:00 107/71 02/18/24 07:00 85 02/18/24 06:21 81 32 H 98 02/18/24 06:00 79 27 H 98 02/18/24 06:00 97/65 L 02/18/24 06:00 97/65 L 02/18/24 05:18 88 36 H 94 02/18/24 05:00 94/63 L 02/18/24 05:00 94/63 L 02/18/24 04:30 87 37 H 91 02/18/24 04:12 74 29 H 93 02/18/24 03:18 89 41 H 99 02/18/24 03:00 102/67 02/18/24 02:45 94 H 32 H 98 02/18/24 02:27 93 H 35 H 98 02/18/24 02:09 98 H 7 L 97 02/18/24 02:00 103/65 02/18/24 02:00 103/65 02/18/24 01:57 87 35 H 98 02/18/24 01:06 96 H 40 H 94 02/18/24 01:00 104/72 02/18/24 00:18 106 H 28 H 97 02/18/24 00:06 105 H 26 H 95 02/18/24 00:00 36.9 C 117/76 02/17/24 23:51 119 H 22 90 02/17/24 23:15 107 H 42 H 89 L 02/17/24 23:00 36.8 C 101/76 02/17/24 22:21 107 H 45 H 92 02/17/24 22:12 113 H 31 H 94 02/17/24 22:07 118 H 30 H 93 02/17/24 22:00 109/75 02/17/24 21:57 115 H 34 H 92 O2 Flow Rate FiO2 02/18/24 09:37 12 70 02/18/24 09:36 02/18/24 08:42 40 02/18/24 08:19 60 02/18/24 08:19 60 02/18/24 08:01 02/18/24 08:00 40 02/18/24 08:00 02/18/24 07:06 02/18/24 07:00 02/18/24 07:00 02/18/24 06:21 02/18/24 06:00 02/18/24 06:00 02/18/24 06:00 02/18/24 05:18 02/18/24 05:00 02/18/24 05:00 02/18/24 04:30 02/18/24 04:12 02/18/24 03:18 02/18/24 03:00 02/18/24 02:45 70 02/18/24 02:27 02/18/24 02:09 02/18/24 02:00 02/18/24 02:00 02/18/24 01:57 02/18/24 01:06 02/18/24 01:00 02/18/24 00:18 02/18/24 00:06 02/18/24 00:00 02/17/24 23:51 02/17/24 23:15 02/17/24 23:00 02/17/24 22:21 02/17/24 22:12 02/17/24 22:07 70 02/17/24 22:00 02/17/24 21:57 Critical Care Results & Data Vital Signs (Past 12 Hours) Vital Signs Temp Pulse Pulse Resp BP Pulse Ox O2 Del Method 02/18/24 09:37 103 H 33 H 95 Trach Collar 02/18/24 09:36 Trach Collar 02/18/24 08:42 02/18/24 08:19 107 H 37 H 94 02/18/24 08:19 110 H 40 H 95 BiPAP 02/18/24 08:01 112/81 02/18/24 08:00 113 H 33 H 94 BiPAP 02/18/24 08:00 37.7 C H 02/18/24 07:06 89 27 H 96 02/18/24 07:00 107/71 02/18/24 07:00 85 02/18/24 06:21 81 32 H 98 02/18/24 06:00 79 27 H 98 02/18/24 06:00 97/65 L 02/18/24 06:00 97/65 L 02/18/24 05:18 88 36 H 94 02/18/24 05:00 94/63 L 02/18/24 05:00 94/63 L 02/18/24 04:30 87 37 H 91 02/18/24 04:12 74 29 H 93 02/18/24 03:18 89 41 H 99 02/18/24 03:00 102/67 02/18/24 02:45 94 H 32 H 98 02/18/24 02:27 93 H 35 H 98 02/18/24 02:09 98 H 7 L 97 02/18/24 02:00 103/65 02/18/24 02:00 103/65 02/18/24 01:57 87 35 H 98 02/18/24 01:06 96 H 40 H 94 02/18/24 01:00 104/72 02/18/24 00:18 106 H 28 H 97 02/18/24 00:06 105 H 26 H 95 02/18/24 00:00 36.9 C 117/76 02/17/24 23:51 119 H 22 90 02/17/24 23:15 107 H 42 H 89 L 02/17/24 23:00 36.8 C 101/76 02/17/24 22:21 107 H 45 H 92 02/17/24 22:12 113 H 31 H 94 02/17/24 22:07 118 H 30 H 93 02/17/24 22:00 109/75 O2 Flow Rate FiO2 02/18/24 09:37 12 70 02/18/24 09:36 02/18/24 08:42 40 02/18/24 08:19 60 02/18/24 08:19 60 02/18/24 08:01 02/18/24 08:00 40 02/18/24 08:00 02/18/24 07:06 02/18/24 07:00 02/18/24 07:00 02/18/24 06:21 02/18/24 06:00 02/18/24 06:00 02/18/24 06:00 02/18/24 05:18 02/18/24 05:00 02/18/24 05:00 02/18/24 04:30 02/18/24 04:12 02/18/24 03:18 02/18/24 03:00 02/18/24 02:45 70 02/18/24 02:27 02/18/24 02:09 02/18/24 02:00 02/18/24 02:00 02/18/24 01:57 02/18/24 01:06 02/18/24 01:00 02/18/24 00:18 02/18/24 00:06 02/18/24 00:00 02/17/24 23:51 02/17/24 23:15 02/17/24 23:00 02/17/24 22:21 02/17/24 22:12 02/17/24 22:07 70 02/17/24 22:00 Lab & Micro Results (Past 24 Hours) RBC 3.33 M/uL (4.20-5.40) L 02/18/24 WBC 6.86 K/ul (4.8-10.8) 02/18/24 Hgb 11.1 g/dl (12.0-16.0) L 02/18/24 Hct 32.3 % (37.0-47.0) L 02/18/24 MCV 97.0 fL (80.0-100.0) 02/18/24 MCH 33.3 pg (25.0-34.0) 02/18/24 MCHC 34.4 g/dL (32.0-36.0) 02/18/24 RDW Standard Deviation 43.0 fL (36.4-46.3) 02/18/24 RDW Coefficient of Variation 12.2 % (11.5-14.5) 02/18/24 Plt Count 97 K/uL (130-400) L 02/18/24 MPV 8.9 fL (9.4-12.4) L 02/18/24 Neutrophils (%) (Auto) 65.0 % 02/18/24 Lymphocytes (%) (Auto) 20.4 % 02/18/24 Monocytes # (Auto) 0.97 K/uL (0.11-0.59) H 02/18/24 Eosinophils # (Auto) 0.00 K/uL (0.00-0.50) 02/18/24 Immature Granulocyte % (Auto) 0.4 % 02/18/24 Neutrophils # (Auto) 4.45 K/uL (1.40-6.50) 02/18/24 Lymphocytes # (Auto) 1.40 K/uL (1.20-3.40) 02/18/24 Monocytes # (Auto) 0.97 K/uL (0.11-0.59) H 02/18/24 Eosinophils # (Auto) 0.00 K/uL (0.00-0.50) 02/18/24 Basophils # (Auto) 0.01 K/uL (0.00-0.20) 02/18/24 Immature Granulocyte # (Auto) 0.03 K/uL (0.01-0.20) 4 Na 135 mmol/L (136-145) L 02/18/24 K 3.5 mmol/L (3.5-5.1) 02/18/24 Cl 104 mmol/L (98-107) 02/18/24 CO2 23 mmol/L (21-32) 02/18/24 Anion Gap 8 (3-11) 02/18/24 BUN 11 mg/dl (6-23) 02/18/24 Creatinine 0.41 mg/dl (0.6-1.2) L 02/18/24 BUN/Creatinine Ratio 26.8 (10-20) H 02/18/24 Glu 102 mg/dl (70-99(Fasting)) H 02/18/24 Ca 8.6 mg/dl (8.6-10.3) 02/18/24 Calcium Level 8.6 mg/dl (8.6-10.3) 02/18/24 04:11 Microbiology 02/12/24 12:36 Aerobic Blood Culture - Final Blood No growth in Aerobic bottle after 5 days. Anaerobic Blood Culture - Final No growth in Anaerobic bottle after 5 days. 02/12/24 12:17 Aerobic Blood Culture - Final Blood No growth in Aerobic bottle after 5 days. Anaerobic Blood Culture - Final No growth in Anaerobic bottle after 5 days. 02/15/24 Unknown Gram Stain - Final Sputum,Trach Sputum Culture - Final Pseudomonas aeruginosa Pseudomonas aeruginosa#2 Moraxella catarrahalis (B.cat) 02/12/24 14:13 Gram Stain - Final Sputum,Trach Sputum Culture - Final Pseudomonas aeruginosa Stenotrophomonas maltophilia Moraxella catarrhalis Diagnostic Findings (Past 24 Hours) Chest X-Ray 02/18/24 06:15 EXAM: XR chest 1V portable CLINICAL HISTORY: EVALUATION OF LUNG RIVAS. TECHNIQUE: X-ray image of the chest was obtained in 1 view: Frontal projection. COMPARISON: X-ray dated 02/17/2024. FINDINGS: A tracheostomy tube was re-demonstrated and well-positioned. A left-sided port-cath line with its tip is seen at the cavoatrial junction. Pulmonary Parenchyma: Mild interval improving left lung lower zone opacity and effusion. Unchanged mild prominence of bronchovascular markings bilaterally. Heart and Mediastinum: Heart size and shape are normal. No mediastinal widening or masses. No hilar or mediastinal lymphadenopathy. Bony Thorax: Bony thorax appears intact without fractures or deformities. Soft Tissues: Soft tissues overlying the chest wall are unremarkable. IMPRESSION: Mild interval improving left lung lower zone opacity and effusion. Electronically signed by Marleny Wisdom 02-18-2024 07:57 AM I & O Totals 24 Hours 02/17/24 02/18/24 02/19/24 06:59 06:59 06:59 Intake Total 829.447 / 733.039 1836.172 / 1129.172 60 / 60 Output Total 1200 / 1200 150 / 150 Balance -370.553 / -370.553 979.172 / 979.172 60 / 60 Cumulative 02/12/24 11:38 thru 02/18/24 08:00 Intake Total 92868.619 Output Total 4350 Balance 5726.619 RT Ventilator Mngmt (Last Documented) Ventilator Ordered Settings Ventilator Support Mode Pressure Control 02/18/24 08:42 Respiratory Rate 33 02/18/24 09:37 Ventilator Tidal Volume 350 02/17/24 03:19 Setting Minute Ventilation 7.9 02/17/24 22:07 Ventilator Positive Pressure 12 02/18/24 08:42 Support Setting Positive End Expiratory 8 02/18/24 08:42 Pressure Fraction of Inspired Oxygen 70 02/18/24 09:37 Machine Comment rate decreased to 20 per ETCO2-25 02/16/24 03:50 Ventilator - PT Measurements Respiratory Rate 33 Exhaled Tidal Volume 384 Minute Ventilation 7.9 Peak Inspiratory Airway 12 Pressure Plateau Pressure 26 Respiratory Cycle Inspiratory: 1:3 Expiratory Ratio Inspiratory Phase Time 0.7 End-Tidal CO2 18 Static Lung Compliance 21.81 Dynamic Lung Compliance 96.00 Normal Static Lung Compliance 49.00 Patient Measurements Comment patient placed on bipap per Brady [facility] Coding Level of Care Code 73313 CRITICAL CARE 1ST 30-74M Diagnoses Quadriplegic cerebral palsy G80.8 Pseudomonas aeruginosa colonization Z22.39 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
[2024-02-18] MEDS: ACETAMINOPHEN 500 MG TAB PO PRN (09:57)
--- NOTE | 2024-02-18 10:50 | Hospitalist Progress Note ---
Date of Service February 18, 2024 Assessment & Plan (1) Acute and chronic respiratory failure with hypoxia: Plan: She has been weaned off ventilator support. Supplemental oxygen per tracheostomy to maintain saturation greater than 90%. She has developed some hemoptysis and critical care medicine is considering repeat bronchoscopy (2) Atelectasis: Plan: Left lower lobe area. Improved appearance on chest x-ray today, February 16. Possible associated pneumonia. Known bronchiectasis in the left lower lobe. She is now on Bactrim and Zerbaxa antibiotic. Pseudomonas previously isolated in sputum (3) COVID-19: Plan: By nasal swab. Current variants are not causing pneumonia and I highly doubt this is having any current role in her current clinical state. No indication for remdesivir (4) S/P percutaneous endoscopic gastrostomy (PEG) tube placement: Plan: stable. Continue tube feedings as usual (5) Seizure disorder: Plan: Stable. Continue current medical management (6) Cerebral palsy: Plan: Severe. Nonverbal. Supportive care (7) Sepsis: Plan: Possibly present on admission. 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 Continue broad-spectrum antibiotic coverage for now Plan Eventual discharge back to her previous living arrangements Admission and Anticipated Discharge Date Admission Date: February 12, 2024 Subjective The patient has developed some bloody secretions from the tracheostomy tube. Critical care medicine considering repeat bronchoscopy. She remains on broad- spectrum IV antibiotic coverage. Platelet count 97,000 today, February 17. Essentially unchanged from yesterday. Review of Systems 2 Review of Systems: The patient is nonverbal and unable to answer any questions regarding review of systems Physical Exam 2 Physical Exam: General-awake but nonverbal. No distress. Severe cerebral palsy at baseline HEENT-head atraumatic and normocephalic, both eyes are open but she is unable to track Neck-no lymphadenopathy or thyromegaly, trachea midline. She has a permanent tracheostomy in place. Chest-scattered bilateral rhonchi. No wheezing. Cardiac-regular rate and rhythm, normal S1 and S2 Abdomen-normal bowel sounds, no hepatosplenomegaly. PEG tube in place Extremities-bilateral upper extremity contractures. Atrophy of all 4 extremities noted. Neuro-severe cerebral palsy at baseline. Nonverbal. Functional quadriplegia Psych-cannot assess Results & Data Results & Data Vital Signs (Past 12 Hours) Vital Signs Temp Pulse Pulse Resp BP Pulse Ox O2 Del Method 02/18/24 10:03 102 H 22 97 Trach Collar 02/18/24 10:00 95/61 L 02/18/24 09:54 99 H 36 H 93 02/18/24 09:37 103 H 33 H 95 Trach Collar 02/18/24 09:36 Trach Collar 02/18/24 09:09 109 H 18 96 02/18/24 09:00 108/79 02/18/24 08:54 106 H 33 H 95 02/18/24 08:42 02/18/24 08:19 107 H 37 H 94 02/18/24 08:19 110 H 40 H 95 BiPAP 02/18/24 08:03 104 H 51 H 87 L 02/18/24 08:01 112/81 02/18/24 08:00 113 H 33 H 94 BiPAP 02/18/24 08:00 37.7 C H 02/18/24 07:06 89 27 H 96 02/18/24 07:00 107/71 02/18/24 07:00 85 02/18/24 06:21 81 32 H 98 02/18/24 06:00 79 27 H 98 02/18/24 06:00 97/65 L 02/18/24 06:00 97/65 L 02/18/24 05:18 88 36 H 94 02/18/24 05:00 94/63 L 02/18/24 05:00 94/63 L 02/18/24 04:30 87 37 H 91 02/18/24 04:12 74 29 H 93 02/18/24 03:18 89 41 H 99 02/18/24 03:00 102/67 02/18/24 02:45 94 H 32 H 98 02/18/24 02:27 93 H 35 H 98 02/18/24 02:09 98 H 7 L 97 02/18/24 02:00 103/65 02/18/24 02:00 103/65 02/18/24 01:57 87 35 H 98 02/18/24 01:06 96 H 40 H 94 02/18/24 01:00 104/72 02/18/24 00:18 106 H 28 H 97 02/18/24 00:06 105 H 26 H 95 02/18/24 00:00 36.9 C 117/76 02/17/24 23:51 119 H 22 90 02/17/24 23:15 107 H 42 H 89 L 02/17/24 23:00 36.8 C 101/76 O2 Flow Rate FiO2 02/18/24 10:03 70 02/18/24 10:00 02/18/24 09:54 02/18/24 09:37 12 70 02/18/24 09:36 02/18/24 09:09 02/18/24 09:00 02/18/24 08:54 02/18/24 08:42 40 02/18/24 08:19 60 02/18/24 08:19 60 02/18/24 08:03 02/18/24 08:01 02/18/24 08:00 40 02/18/24 08:00 02/18/24 07:06 02/18/24 07:00 02/18/24 07:00 02/18/24 06:21 02/18/24 06:00 02/18/24 06:00 02/18/24 06:00 02/18/24 05:18 02/18/24 05:00 02/18/24 05:00 02/18/24 04:30 02/18/24 04:12 02/18/24 03:18 02/18/24 03:00 02/18/24 02:45 70 02/18/24 02:27 02/18/24 02:09 02/18/24 02:00 02/18/24 02:00 02/18/24 01:57 02/18/24 01:06 02/18/24 01:00 02/18/24 00:18 02/18/24 00:06 02/18/24 00:00 02/17/24 23:51 02/17/24 23:15 02/17/24 23:00 Laboratory Results 02/18/24 04:11 02/18/24 04:11 PG Care Time/CCT Total # of Minutes Spent Total Time Spent with Patient: Total time spent is greater than 50% in coordination of care (as documented) at patient's floor/unit and/or counseling patient: Coding Level of Care Code 33274 SUB INP/OBS CARE 2/35MIN Diagnoses Acute and chronic respiratory failure with hypoxia J96.21 Atelectasis J98.11 COVID-19 U07.1 S/P percutaneous endoscopic gastrostomy (PEG) tube placement Z93.1 Seizure disorder G40.909 Cerebral palsy G80.9 Sepsis A41.9 Sepsis acute organ dysfunction status: unspecified Sepsis type: sepsis due to unspecified organism 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
[2024-02-18] MEDS: fentaNYL citrate PF 100 MCG/2 ML VIAL IV STA (18:22)
[2024-02-18] MEDS: MIDAZOLAM HCL 1 MG/ML 2ML VIAL IV STA (18:28)
[2024-02-18] MEDS: MIDAZOLAM HCL 1 MG/ML 2ML VIAL ONE (18:49)
--- NOTE | 2024-02-18 19:06 | Communication Note ---
Date of Service: February 18, 2024 Contacted by nursing staff for episode of desaturation in large amount of mucus and possible clot: Definite blood-tinged sputum. Patient has been on elevated FiO2 today, respiratory had been able to lower the patient to an FiO2 of 40% in previous days. Mother consented for bronchoscopy earlier in the day, I proceeded given the report of findings. Please see bronchoscopy report for additional details. Review of the chart, patient had HSV 1 and 2 done on bronchial lavage back in 2019 which were both negative. After suctioning moderate amount of proximal secretions, the distal airways appeared largely unremarkable with the exception of white nonpurulent secretions easily suctioned out of the distal airways. Proximal secretions were more ten acious. There was no active bleeding or oozing in the trachea, the lesions appear to be most consistent with suction catheter trauma. Gentle lavage of the area would clear there was no oozing present underneath. Differential could include HSV tracheitis; however, I do believe that this is quite unlikely given prior history. Bronchoscopic specimen from the right lower lobe was sent for analysis: Cytology culture and HSV PCR. Patient has been doing well when on her right side and presumptively allowing better ventilation and aeration of the left lung. Certainly this could lead to secretions passing from the left lung into the right lung. At this point I think the most likely pathophysiology is the patient is able to mobilize some secretions from the left lower lobe and passing into the right lung. This appears to be consistent as most of the secretions were in the right lower lobe and while they were not full of clot they were blood-tinged. I suspect the patient ultimately ends up with VQ mismatch secondary to mucoid impactions and this leads to desaturation. Correspondingly the increase in FiO2 can lead to increase lung mucosal fragility and potentiate worsening trauma rel ated to frequent suctioning. The distal lung tissues looked rather healthy after suctioning of the more proximal secretions. Patient has limited pulmonary reserve and it will require a delicate balance of optimizing the lowest FiO2 possible with minimal amount of suctioning to minimize local trauma. The tracheal lesions were limited to being distal to the end of the tracheostomy opening and with significant flexion of the bronchoscope there did not appear to be any lesions proximal, therefore I think infectious tracheitis is very unlikely. Would continue the current antibiotic regimen to h opefully decrease bacterial colonization and purulence of secretions. I would optimize FiO2 to 50% and hopefully less and attempts to limit secretions to only episodes when the patient desaturates below 92%. I updated the patient's mother of the findings and treatment plan. I have personally spent 45 minutes of critical care time in the direct management of this patient. This is a life/limb threatening event. This includes time spent evaluating patient, direct bedside care, chart review, placing orders, interpretation of diagnostic studies, discussion with consultants, patient, and/or family members regarding treatment decisions, as well as other required patient management activities. This time is exclusive of all separately billable procedures, and teaching time and separate from and in addition to any other critical care service time. Coding Level of Care Code 31417 CRITICAL CARE EA ADD 30M
--- NOTE | 2024-02-18 19:24 | Procedure Note ---
Procedure Note Date of Service February 18, 2024 Procedure date: Noted above Procedure: fiberoptic bronchoscopy Pre-procedure indication: Frequent mucous plugging and hypoxia Post-procedure Diagnosis: same as above Prior to Procedure: Informed Consent: The risks, benefits, indications, potential complications, and alternatives were explained to the patient's mother and informed consent obtained. Attending Staff: Lavon Tariq DO Resident/APC: Not applicable Skin Prep: Not applicable Anesthesia: 100 mcg fentanyl, 2 mg Versed The identity of the patient was confirmed and a bedside time out was performed. Description of Procedure: Fiberoptic bronchoscopy was performed via endotracheal tube. Bronchioalveolar lavage of both lobes was performed. Findings included: Proximal secretions were tenacious however not purulent and blood-tinged. There were more secretions in the right lower lobe than the left. After clearing out the proximal secretions there was still white easily suctioned secretions in the distal airways, these were removed with lavage. The tissue looked healthy, not inflamed, not purulent. The trachea had clear tenacious mucoid secretions with blood streaking. There did not appear to be brittni ulcers in the trachea however there did appear to be stigmata of suction trauma. With significant retroflexion of the scope area proximal to the tracheostomy tube appears to be pristine not inflamed. This does not appear to be an infectious tracheitis most consistent with local trauma Complications: None Specimens: Bronchial washings sent for culture and Gram stain, fungal elements, AFB stain and culture, cell count differential cell count differential, HSV PCR. Estimated blood loss: Zero MNP Procedure Codes (Charges) Pulmonary/Thoracic Procedure 1: Pulmonary and Thoracic: 59463 Dx bronchoscopy/BAL Coding CPT Codes Pulmonary/Thoracic - Pulmonary and Thoracic: 03646 Dx bronchoscopy/BAL ([id number]) Additional Codes Date of Service ([facility].SURGERY)
--- NOTE | 2024-02-18 19:40 | XRay Report ---
Exam(s): XR CXR 1 VIEW EXAM: XR Chest, 1 View CLINICAL HISTORY: Reason for exam: s/p bronch. TECHNIQUE: Frontal view of the chest. COMPARISON: 02/18/2024 at 6:41 AM FINDINGS: Lungs: Slightly progressed airspace opacities at the left base. Right basilar airspace opacities are unchanged. Pleural space: No pleural effusion. No pneumothorax. Heart: Unremarkable. No cardiomegaly. Tubes, lines and devices: Tracheostomy cannula in place. Port-A-Cath in place. IMPRESSION: Slightly progressed airspace opacities and atelectasis at the left base. Right basilar airspace opacities are unchanged. Electronically signed by: Stephen Huang MD 02/18/24 19:39 PM
[2024-02-18] MEDS: ACETYLCYSTEINE 20% INHAL SOLN 30ML INH ONE (19:49)
--- NOTE | 2024-02-19 08:32 | XRay Report ---
EXAM: XR chest 1V portable CLINICAL HISTORY: FOLLOW UP DAKOTA IGLESIAS TECHNIQUE: An X-ray image of the chest is obtained in 1 AP projection. COMPARISON: Prior study dated 02/18/2024 FINDINGS: A tracheostomy tube was re-demonstrated and its tip is 5.5cm from alannah. A left-sided port-cath line with its tip is seen at the cavoatrial junction. Pulmonary Parenchyma: Left lung lower zone diffuse opacity and prominence of bronchovascular markings bilaterally. Blunting of costophrenic angles bilaterally Heart and Mediastinum: Heart size and shape are normal. No mediastinal widening or masses. No hilar or mediastinal lymphadenopathy. Bony Thorax: Bony thorax appears intact without fractures or deformities. Soft Tissues: Soft tissues overlying the chest wall are unremarkable. IMPRESSION: 1. A tracheostomy tube was re-demonstrated and its tip is 5.5cm from alannah. 2. A left-sided port-cath line with its tip is seen at the cavoatrial junction. 3. Left lung lower zone diffuse opacity and prominence of bronchovascular markings bilaterally. 4. Blunting of costophrenic angles bilaterally 5. No interval changes. Electronically signed by Marleny Wisdom 02-19-2024 08:31 AM
--- NOTE | 2024-02-19 08:40 | Critical Care Progress Note ---
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 She was found to be COVID-positive. Cultures have been negative. She did have a low-grade fever. PLAN: Neuro: Severe cerebral palsy -Continue baclofen, fluoxetine, Depakote, Zonegran -Intermittent fentanyl when on invasive ventilator Resp: Chronic vent dependent respiratory failure: Utilizes at night Chronic trach dependence -Known colonization with Pseudomonas and stenotrophomonas at baseline -Intermediate resistance to cefepime Pseudomonas, stenotro phomonas sensitive to Bactrim, Moraxella sensitive to 0 Baxa Continue trach collar -Still requiring pulmonary toilet for secretion clearance -Goal to have FiO2 remain 40% or less and only suction for desaturation less than 92% COVID pneumonia -Left lung aeration looks adequate on chest x-ray -continue aggressive chest physiotherapy -Treatment with Bactrim and Zerbaxa for Pseudomonas and Moraxella Tracheitis secondary to local trauma Fluids/Renal: Follow renal function every other day ID: COVID-pneumonia versus secondary bacterial infection -Patient with known colonizers -Treat with 14-day course of Bactrim convert to oral: Patient afebrile no leukocytosis: stop date 02/28 (day 5/14 therapy) -Anticipate 14-day course of Zerbaxa: Stop date 03/01 (Day 4/14 therapy) -Would trend procalcitonin and would discontinue antibiotics if procalcitonin returns to normal prior to 14-day duration -Procalcitonin set to be drawn on day 7 of antibiotic therapy GI/Nutrition: Bolus feedings: Tolerating Heme: DVT prophylaxis: Patient has never been ambulatory, no indication for DVT prophylaxis chemical nor mechanical Endocrine: ICU hyperglycemia protocol Vascular access: Indwelling port accessed Code Status: DNR in event of cardiac arrest, chronic ventilator dependence at baseline -CODE STATUS updated to reflect cardiac arrest wishes -Patient is chronically vent dependent at baseline Disposition: ICU secondary to need of frequent suctioning through tracheostomy and mechanical ventilation needs Admission and Anticipated Discharge Date Admission Date: February 12, 2024 Subjective No significant events overnight following bronchoscopy. Physical Exam Physical Exam: General: nontoxic. Skin: Warm, dry, Head: Atraumatic Ears, nose, mouth and throat: Tracheostomy tube present Cardiovascular: Normal peripheral perfusion Respiratory: Ventilator settings reviewed Gastrointestinal: Non distended Musculoskeletal: No deformity Results & Data Results & Data Vital Signs (Past 12 Hours) Vital Signs Pulse Pulse Resp BP Pulse Ox O2 Del Method FiO2 02/19/24 07:35 112 H 28 H 97 BiPAP 35 02/19/24 04:00 35 02/19/24 03:47 94 H 24 97 35 02/19/24 02:45 101/62 02/19/24 02:45 101/62 02/19/24 02:45 101/62 02/19/24 02:45 101/62 02/19/24 02:27 96 H 23 98 02/19/24 02:15 100 H 25 H 98 02/19/24 02:15 99/69 L 02/19/24 02:15 99/69 L 02/19/24 02:00 99 H 25 H 98 02/19/24 02:00 103/62 02/19/24 02:00 103/62 02/19/24 02:00 103/62 02/19/24 01:45 102/62 02/19/24 01:39 92 H 32 H 99 02/19/24 01:30 98/61 L 02/19/24 01:30 98/61 L 02/19/24 01:30 97 H 22 98 02/19/24 01:03 95 H 27 H 97 02/19/24 01:00 94/60 L 02/19/24 00:54 98 H 27 H 97 02/19/24 00:45 91/62 L 02/19/24 00:21 103 H 27 H 98 02/19/24 00:00 94/63 L 02/19/24 00:00 40 02/18/24 23:42 101 H 30 H 97 02/18/24 23:30 96/64 L 02/18/24 23:30 96/64 L 02/18/24 23:15 95/64 L 02/18/24 23:03 102 H 28 H 94 02/18/24 23:01 90/58 L 02/18/24 23:00 101 H 28 H 93 02/18/24 22:50 105 H 27 H 97 40 02/18/24 22:45 108 H 31 H 97 02/18/24 22:45 116/83 02/18/24 22:45 116/83 02/18/24 22:45 116/83 02/18/24 22:45 116/83 02/18/24 22:15 106 H 28 H 94 02/18/24 22:15 97/64 L 02/18/24 22:15 97/64 L 02/18/24 22:15 97/64 L 02/18/24 22:03 113 H 20 92 02/18/24 22:00 98/66 L 02/18/24 22:00 98/66 L 02/18/24 22:00 98/66 L 02/18/24 21:45 116 H 30 H 91 02/18/24 21:45 102/82 02/18/24 21:45 102/82 02/18/24 21:30 108/77 02/18/24 21:15 105/75 02/18/24 21:09 117 H 29 H 94 02/18/24 21:09 96 40 02/18/24 21:00 111/84 Coding Level of Care Code 05616 SUB INP/OBS CARE 3/50MIN Diagnoses Quadriplegic cerebral palsy G80.8 Pseudomonas aeruginosa colonization Z22.39 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
[2024-02-19] MEDS: PATIENT'S OWN ENTERAL FEEDING GT SCH (11:03)
--- NOTE | 2024-02-19 12:45 | Hospitalist Progress Note ---
Date of Service February 19, 2024 Assessment & Plan (1) Acute and chronic respiratory failure with hypoxia: Plan: She has been weaned off ventilator support. Supplemental oxygen per tracheostomy to maintain saturation greater than 90%. Bronchoscopy was performed last evening and secretions were aspirated. No current hemoptysis. (2) Atelectasis: Plan: Left lower lobe area. Improved appearance on chest x-ray today, February 17. Associated Pseudomonas pneumonia remains a possibility. Known bronchiectasis in the left lower lobe. She is now on Bactrim and Zerbaxa antibiotic. Pseudomonas previously isolated in sputum (3) COVID-19: Plan: By nasal swab. Current variants are not causing pneumonia and I highly doubt this is having any current role in her current clinical state. No indication for remdesivir (4) S/P percutaneous endoscopic gastrostomy (PEG) tube placement: Plan: stable. Continue tube feedings as usual (5) Seizure disorder: Plan: Stable. Continue current medical management (6) Cerebral palsy: Plan: Severe. Nonverbal. Supportive care (7) Sepsis: Plan: Possibly present on admission. 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 Continue broad-spectrum antibiotic coverage for now Plan Eventual discharge back to her previous living arrangements Admission and Anticipated Discharge Date Admission Date: February 12, 2024 Subjective Awake with eyes open. She remains nonverbal. Apparently she underwent bronchoscopy last night due to worsening respiratory status. Secretions were aspirated as much as possible. Mother is at the bedside Review of Systems 2 Review of Systems: The patient is nonverbal and unable to answer any questions regarding review of systems Physical Exam 2 Physical Exam: General-awake but nonverbal. No distress. Severe cerebral palsy at baseline HEENT-head atraumatic and normocephalic, both eyes are open but she is unable to track Neck-no lymphadenopathy or thyromegaly, trachea midline. She has a permanent tracheostomy in place. Chest-scattered bilateral rhonchi. No wheezing. Cardiac-regular rate and rhythm, normal S1 and S2 Abdomen-normal bowel sounds, no hepatosplenomegaly. PEG tube in place Extremities-bilateral upper extremity contractures. Atrophy of all 4 extremities noted. Neuro-severe cerebral palsy at baseline. Nonverbal. Functional quadriplegia Psych-cannot assess Results & Data Results & Data Vital Signs (Past 12 Hours) Vital Signs Pulse Pulse Resp BP Pulse Ox O2 Del Method FiO2 02/19/24 11:15 97/74 L 02/19/24 11:12 92 H 15 98 Trach Collar 40 02/19/24 11:12 103/75 02/19/24 11:03 98 H 25 H 100 02/19/24 11:00 84/72 L 02/19/24 10:51 91 H 38 H 95 02/19/24 10:45 90 33 H 97 02/19/24 10:45 90/57 L 02/19/24 10:16 103/65 02/19/24 10:06 93 H 31 H 98 02/19/24 10:00 95/65 L 02/19/24 09:51 95 H 30 H 98 02/19/24 09:45 98/62 L 02/19/24 09:42 95 H 27 H 96 02/19/24 09:30 96/64 L 02/19/24 09:30 95 H 30 H 97 02/19/24 09:15 91/59 L 02/19/24 09:06 107 H 39 H 92 02/19/24 09:03 103 H 41 H 81 L 02/19/24 09:00 98/58 L 02/19/24 08:45 91/46 L 02/19/24 08:30 102 H 26 H 92 Trach Collar 02/19/24 08:30 97/57 L 02/19/24 08:09 115 H 34 H 92 02/19/24 08:00 112 H 20 93 02/19/24 08:00 108/70 02/19/24 08:00 Trach Collar 40 02/19/24 07:45 111/70 02/19/24 07:42 102 H 26 H 100 02/19/24 07:35 112 H 28 H 97 BiPAP 35 02/19/24 07:30 105/73 02/19/24 07:30 104 H 16 97 02/19/24 07:15 105/61 02/19/24 07:06 94 H 24 99 02/19/24 07:00 110/66 02/19/24 07:00 100 H 25 H 99 02/19/24 06:53 97 H 02/19/24 04:00 35 02/19/24 03:47 94 H 24 97 35 02/19/24 02:45 101/62 02/19/24 02:45 101/62 02/19/24 02:45 101/62 02/19/24 02:45 101/62 02/19/24 02:27 96 H 23 98 02/19/24 02:15 100 H 25 H 98 02/19/24 02:15 99/69 L 02/19/24 02:15 99/69 L 02/19/24 02:00 99 H 25 H 98 02/19/24 02:00 103/62 02/19/24 02:00 103/62 02/19/24 02:00 103/62 02/19/24 01:45 102/62 02/19/24 01:39 92 H 32 H 99 02/19/24 01:30 98/61 L 02/19/24 01:30 98/61 L 02/19/24 01:30 97 H 22 98 02/19/24 01:03 95 H 27 H 97 02/19/24 01:00 94/60 L 02/19/24 00:54 98 H 27 H 97 02/19/24 00:45 91/62 L Laboratory Results 02/18/24 04:11 02/18/24 04:11 PG Care Time/CCT Total # of Minutes Spent Total Time Spent with Patient: Total time spent is greater than 50% in coordination of care (as documented) at patient's floor/unit and/or counseling patient: Coding Level of Care Code 28942 SUB INP/OBS CARE 2/35MIN Diagnoses Acute and chronic respiratory failure with hypoxia J96.21 Atelectasis J98.11 COVID-19 U07.1 S/P percutaneous endoscopic gastrostomy (PEG) tube placement Z93.1 Seizure disorder G40.909 Cerebral palsy G80.9 Sepsis A41.9 Sepsis acute organ dysfunction status: unspecified Sepsis type: sepsis due to unspecified organism 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
[2024-02-20 04:15] LABS: Basophils # (auto) 0.01 K/uL (0.00-0.20); Basophils % (auto) 0.2 %; Eosinophils # (auto) 0.08 K/uL (0.00-0.50); Eosinophils % (auto) 1.3 %; Hematocrit (blood only) 30.4 % (37.0-47.0); Hemoglobin 10.3 g/dl (12.0-16.0); Immature Granulocytes # (auto) 0.08 K/uL (0.01-0.20); Immature Granulocytes % (auto) 1.3 %; Lymphocytes # (auto) 1.36 K/uL (1.20-3.40); Lymphocytes % (auto) 22.3 %; Mean Corpuscular Hgb Conc 33.9 g/dL (32.0-36.0); Mean Corpuscular Volume 97.4 fL (80.0-100.0); Mean Platelet Volume 8.7 fL (9.4-12.4); Monocytes # (auto) 0.86 K/uL (0.11-0.59); Monocytes % (auto) 14.1 %; Neutrophils % (auto) 60.8 %; Platelet Count 115 K/uL (130-400); RDW Coefficient of Variation 12.3 % (11.5-14.5); RDW Standard Deviation 43.6 fL (36.4-46.3); Red Blood Count 3.12 M/uL (4.20-5.40); White Blood Count 6.09 K/ul (4.8-10.8)
[2024-02-20 04:23] LABS: BUN Creatinine Ratio 30.4 (10-20); Calcium 8.5 mg/dl (8.6-10.3); Creatinine Clr Calc Pharmacy 148.8 ml/min; Potassium 3.9 mmol/L (3.5-5.1)
--- NOTE | 2024-02-20 08:19 | Critical Care Progress Note ---
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 She was found to be COVID-positive. Cultures have been negative. She did have a low-grade fever. -- Trach dependent with AVAPS at night support Respiratory bio fire positive for COVID-19 02/12/2024 Nasal MRSA negative Procalcitonin 0.06 Sputum culture 02/15/2024 growing Pseudomonas (resistant to levofloxacin, sensitive to ceftolozane/tazobactam), Moraxella catarrhalis as well as stenotrophomonas maltophilia S/p bronchoscopy to clear the airways on 02/18/2024, cultures negative to date Last bronchoscopy 10/08: Pseudomonas and Corynebacterium. Patient finished ceftazidime antibiotic, last dose was 10/26/2022 It also grew Epicoccum species which is most likely a colonizer History of Pseudomonas which is resistant to levofloxacin and tobramycin. Sensitive to only Avycaz History of Achromobacter and Pseudomonas in the sputum O2 supplementation to keep oxygen saturation between 90-92% --COVID-19 positive Patient's chest x-ray on presentation 02/12/2024 did not show any infiltrate Repeat chest x-ray 02/14/2024 does show some worsening of the left side Patient does have chronic bronchiectasis and history of collapse of the left lower lobe with chronic secretions I am unsure if Covid-19 is playing any role in patient's current presentation --Chronic bronchiectasis Hypertonic saline nebulized twice a day, aggressive suctioning with chest PT --Severe cerebral palsy -Continue baclofen, fluoxetine, Depakote, Zonegran -Intermittent fentanyl when on invasive ventilator --Normocytic anemia Monitor H&H -- Chronic thrombocytopenia Continue to trend --Prophylaxis VTE: IPC GI: None Lines: Left-sided port, peripheral Diet: Tube feeds Plan: In/out: +836, urine output 952 Chest x-ray from today shows improved aeration on the left lower side. Complete the course of antibiotics for total of 14 days although I do think patient has colonization with Pseudomonas as well as Moraxella Continue with Bactrim for 14 days for stenotrophomonas Continue with hypertonic saline nebulized and pulmonary toileting Please note the above document was generated using voice recognition software. It may contain grammatical, syntax or spelling errors.Any formal questions or concerns about the content, text or information contained within the body of this dictation should be directly addressed to the provider for clarification. Admission and Anticipated Discharge Date Admission Date: February 12, 2024 Subjective Patient seen and examined at bedside. No acute distress, no adverse events overnight She was on BiPAP. She usually uses AVAPS event at home Still having secretions which were suctioned out by RT Has been afebrile Getting tube feeds SBP was in the low 100s at the time of examination Review of Systems 2 Review of Systems: Unobtainable due to cognitive status Physical Exam 2 Physical Exam: Constitutional: No acute distress HEENT: EOMI, PERRLA, positive trach Respiratory system:Decreased air entry bilaterally, no wheeze, minimal rhonchi appreciated bilaterally, mild crackles bilateral lower lobes more on the left CVS: S1-S2 positive, no murmurs or gallops, tachycardia Abdomen: Soft, nontender, nondistended, positive bowel sounds x4, positive PEG Extremities: +2 pulses bilaterally radialis/ dorsalis pedis, no cyanosis, no edema Neuro:Contracture of the upper and lower extremities, spontaneously opening eyes, not following commands Psych:Unable to assess G/U:Pure wick catheter Skin: no rashes, warm and dry Lymphatic: no cervical or axillary lymphadenopathy Results & Data Results & Data Vital Signs (Past 12 Hours) Vital Signs Temp Pulse Pulse Resp BP Pulse Ox O2 Del Method 02/20/24 07:51 105 H 25 H 94 BiPAP 02/20/24 07:40 94 H 25 H 94 02/20/24 07:00 BiPAP, Mechanical Vent 02/20/24 07:00 02/20/24 07:00 84 33 H 117/76 92 BiPAP 02/20/24 06:00 85 22 101/78 95 BiPAP, Mechanical Vent 02/20/24 05:00 37.4 C 96 H 14 102/75 95 BiPAP, Mechanical Vent 02/20/24 04:00 02/20/24 04:00 74 22 97/62 L BiPAP, Mechanical Vent 02/20/24 03:15 84 16 97 02/20/24 03:00 36.6 C 77 17 96/53 L 99 BiPAP, Mechanical Vent 02/20/24 02:00 75 20 92/53 L 97 BiPAP, Mechanical Vent 02/20/24 01:00 36.9 C 73 21 99/59 L 98 BiPAP, Mechanical Vent 02/20/24 00:00 83 17 104/57 L 96 BiPAP, Mechanical Vent 02/20/24 00:00 02/19/24 23:48 85 02/19/24 23:00 88 22 92/50 L 95 BiPAP, Mechanical Vent, Other 02/19/24 23:00 02/19/24 22:53 98 H 26 H 94 02/19/24 21:00 Trach Collar 02/19/24 21:00 37.6 C H 107 H 30 H 118/72 97 Trach Collar O2 Flow Rate FiO2 02/20/24 07:51 40 02/20/24 07:40 40 02/20/24 07:00 40 02/20/24 07:00 40 02/20/24 07:00 40 02/20/24 06:00 40 02/20/24 05:00 40 02/20/24 04:00 40 02/20/24 04:00 40 02/20/24 03:15 40 02/20/24 03:00 40 02/20/24 02:00 40 02/20/24 01:00 40 02/20/24 00:00 40 02/20/24 00:00 40 02/19/24 23:48 02/19/24 23:00 40 02/19/24 23:00 40 02/19/24 22:53 40 02/19/24 21:00 12 02/19/24 21:00 12 Laboratory Results 02/20/24 03:53 02/20/24 03:53 Coding Level of Care Code 39118 SUB INP/OBS CARE 2/35MIN Diagnoses Quadriplegic cerebral palsy G80.8 Pseudomonas aeruginosa colonization Z22.39 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
[2024-02-20 09:33] LABS: Phosphorus 3.7 mg/dl (2.5-4.9)
--- NOTE | 2024-02-20 12:43 | Hospitalist Progress Note ---
Date of Service February 20, 2024 Assessment & Plan (1) Acute and chronic respiratory failure with hypoxia: Plan: She has been weaned off ventilator support. Supplemental oxygen per tracheostomy to maintain saturation greater than 90%. Bronchoscopy was performed 02/18 lobo and secretions were aspirated. No current hemoptysis. (2) Atelectasis: Plan: Left lower lobe area. Improved appearance on chest x-ray. Associated Pseudomonas pneumonia remains a possibility. Known bronchiectasis in the left lower lobe. She is now on Bactrim and Zerbaxa antibiotic. Pseudomonas previously isolated in sputum (3) COVID-19: Plan: By nasal swab. Current variants are not causing pneumonia and I highly doubt this is having any current role in her current clinical state. No indication for remdesivir (4) S/P percutaneous endoscopic gastrostomy (PEG) tube placement: Plan: stable. Continue tube feedings as usual (5) Seizure disorder: Plan: Stable. Continue current medical management (6) Cerebral palsy: Plan: Severe. Nonverbal. Supportive care (7) Sepsis: Plan: Possibly present on admission. 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 Continue broad-spectrum antibiotic coverage for now Plan Eventual discharge back to her previous living arrangements. Hopefully on February 21 with IV antibiotic therapy Admission and Anticipated Discharge Date Admission Date: February 12, 2024 Subjective Stable overall. No clinical change. Mother is at the bedside. Hopefully home on February 21, with continued intravenous antibiotics Review of Systems 2 Review of Systems: The patient is nonverbal and unable to answer any questions regarding review of systems Physical Exam 2 Physical Exam: General-awake but nonverbal. No distress. Severe cerebral palsy at baseline HEENT-head atraumatic and normocephalic, both eyes are open but she is unable to track Neck-no lymphadenopathy or thyromegaly, trachea midline. She has a permanent tracheostomy in place. Chest-scattered bilateral rhonchi. No wheezing. Cardiac-regular rate and rhythm, normal S1 and S2 Abdomen-normal bowel sounds, no hepatosplenomegaly. PEG tube in place Extremities-bilateral upper extremity contractures. Atrophy of all 4 extremities noted. Neuro-severe cerebral palsy at baseline. Nonverbal. Functional quadriplegia Psych-cannot assess Results & Data Results & Data Vital Signs (Past 12 Hours) Vital Signs Temp Pulse Pulse Resp BP Pulse Ox O2 Del Method 02/20/24 10:00 84 27 H 91/58 L 97 Trach Collar 02/20/24 09:03 102 H 35 H 96/65 L 94 Trach Collar 02/20/24 08:00 106 H 22 107/59 L 100 Trach Collar 02/20/24 08:00 37.2 C 02/20/24 07:51 105 H 25 H 94 BiPAP 02/20/24 07:40 94 H 25 H 94 02/20/24 07:00 BiPAP, Mechanical Vent 02/20/24 07:00 02/20/24 07:00 84 33 H 117/76 92 BiPAP 02/20/24 06:00 85 22 101/78 95 BiPAP, Mechanical Vent 02/20/24 05:00 37.4 C 96 H 14 102/75 95 BiPAP, Mechanical Vent 02/20/24 04:00 02/20/24 04:00 74 22 97/62 L BiPAP, Mechanical Vent 02/20/24 03:15 84 16 97 02/20/24 03:00 36.6 C 77 17 96/53 L 99 BiPAP, Mechanical Vent 02/20/24 02:00 75 20 92/53 L 97 BiPAP, Mechanical Vent 02/20/24 01:00 36.9 C 73 21 99/59 L 98 BiPAP, Mechanical Vent O2 Flow Rate FiO2 02/20/24 10:00 10 35 02/20/24 09:03 10 40 02/20/24 08:00 10 50 02/20/24 08:00 02/20/24 07:51 40 02/20/24 07:40 40 02/20/24 07:00 40 02/20/24 07:00 40 02/20/24 07:00 40 02/20/24 06:00 40 02/20/24 05:00 40 02/20/24 04:00 40 02/20/24 04:00 40 02/20/24 03:15 40 02/20/24 03:00 40 02/20/24 02:00 40 02/20/24 01:00 40 Laboratory Results Abnormal lab results 02/19/24 02/20/24 Range/Units 13:41 03:53 RBC 3.12 L (4.20-5.40) M/uL Hgb 10.3 L (12.0-16.0) g/dl Hct 30.4 L (37.0-47.0) % Plt Count 115 L (130-400) K/uL MPV 8.7 L (9.4-12.4) fL [place] # (Auto) 0.86 H (0.11-0.59) K/uL Sodium 133 L (136-145) mmol/L Creatinine 0.46 L (0.6-1.2) mg/dl BUN/Creatinine Ratio 30.4 H (10-20) Glucose 107 H (70-99(Fasting)) mg/dl POC Glucose 119 H (70-99) mg/dl Calcium 8.5 L (8.6-10.3) mg/dl 02/20/24 03:53 02/20/24 03:53 PG Care Time/CCT Total # of Minutes Spent Total Time Spent with Patient: Total time spent is greater than 50% in coordination of care (as documented) at patient's floor/unit and/or counseling patient: Coding Level of Care Code 73994 SUB INP/OBS CARE 2/35MIN Diagnoses Acute and chronic respiratory failure with hypoxia J96.21 Atelectasis J98.11 COVID-19 U07.1 S/P percutaneous endoscopic gastrostomy (PEG) tube placement Z93.1 Seizure disorder G40.909 Cerebral palsy G80.9 Sepsis A41.9 Sepsis acute organ dysfunction status: unspecified Sepsis type: sepsis due to unspecified organism 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
[2024-02-21 06:52] LABS: Phosphorus 3.8 mg/dl (2.5-4.9)
--- NOTE | 2024-02-21 07:44 | Critical Care Progress Note ---
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: (4) Bronchiectasis: Plan PLAN: Neuro: Severe cerebral palsy -Continue baclofen, fluoxetine, Depakote, Zonegran -Intermittent fentanyl when on invasive ventilator Resp: Chronic vent dependent respiratory failure: Utilizes at night Chronic trach dependence -Known colonization with Pseudomonas and stenotrophomonas at baseline -Intermediate resistance to cefepime Pseudomonas, stenotrophomonas sensitive to Bactrim, Moraxella sensitive to zerbaxa Continue trach collar -Still requiring pulmonary toilet for secretion clearance -Goal to have FiO2 remain 40% or less and only suction for desaturation less than 92% COVID pneumonia -Left lung aeration looks adequate on chest x-ray -continue aggressive chest physiotherapy -Treatment with Bactrim and Zerbaxa for Pseudomonas and Moraxella Tracheitis secondary to local trauma Fluids/Renal: Follow renal function every other day ID: COVID-pneumonia versus secondary bacterial infection -Patient with known colonizers -Treat with 14-day course of Bactrim convert to oral: Patient afebrile no leukocytosis: stop date 02/28 (day 7/14 therapy) -Anticipate 14-day course of Zerbaxa: Stop date 03/01 (Day 6/14 therapy) -Would trend procalcitonin and would discontinue antibiotics if procalcitonin returns to normal prior to 14-day duration -Procalcitonin set to be drawn on 02/21 GI/Nutrition: Bolus feedings: Tolerating Heme: DVT prophylaxis: Patient has never been ambulatory, no indication for DVT prophylaxis chemical nor mechanical Endocrine: ICU hyperglycemia protocol Vascular access: Indwelling port accessed Code Status: DNR in event of cardiac arrest, chronic ventilator dependence at baseline -CODE STATUS updated to reflect cardiac arrest wishes -Patient is chronically vent dependent at baseline Anticipate discharge if able to tolerate home vent settings overnight, trial this evening Admission and Anticipated Discharge Date Admission Date: February 12, 2024 Supervising Physician Co-Signing Physician Notes Updated mother who was present at bedside. Subjective Patient on BiPAP ventilation overnight, goal to transition to home vent tonight and remain on trach collar during the day, decreasing secretion burden Physical Exam Physical Exam: General: nontoxic. Skin: Warm, dry, Head: Atraumatic Ears, nose, mouth and throat: Tracheostomy tube present Cardiovascular: Normal peripheral perfusion Respiratory: Ventilator settings reviewed Gastrointestinal: Non distended Musculoskeletal: No deformity Results & Data Results & Data Vital Signs (Past 12 Hours) Vital Signs Temp Pulse Pulse Resp BP Pulse Ox O2 Del Method 02/21/24 06:00 36.5 C 83 21 97/65 L 96 BiPAP, Mechanical Vent 02/21/24 05:08 80 15 90/59 L 95 BiPAP, Mechanical Vent 02/21/24 04:00 02/21/24 04:00 36.5 C 80 20 92/54 L 94 BiPAP, Mechanical Vent 02/21/24 03:45 76 19 94 02/21/24 03:00 78 24 91/51 L 95 BiPAP, Mechanical Vent 02/21/24 02:00 36.5 C 88 24 106/73 94 BiPAP, Mechanical Vent 02/21/24 01:00 89 24 111/71 93 BiPAP, Mechanical Vent 02/21/24 00:00 02/21/24 00:00 81 02/21/24 00:00 36.5 C 87 22 119/88 94 Mechanical Vent 02/20/24 23:15 96 H 24 99 02/20/24 23:00 87 28 H 99/65 L 94 Trach Collar 02/20/24 22:00 36.5 C 97 H 17 103/68 97 Trach Collar 02/20/24 21:00 95 H 17 95/54 L 97 Trach Collar 02/20/24 20:30 Trach Collar 02/20/24 20:00 36.7 C 87 24 99/61 L 97 Trach Collar 02/20/24 19:50 92 H 22 96 Trach Collar O2 Flow Rate FiO2 02/21/24 06:00 50 02/21/24 05:08 50 02/21/24 04:00 50 02/21/24 04:00 50 02/21/24 03:45 50 02/21/24 03:00 50 02/21/24 02:00 40 02/21/24 01:00 40 02/21/24 00:00 40 02/21/24 00:00 02/21/24 00:00 40 02/20/24 23:15 40 02/20/24 23:00 30 02/20/24 22:00 30 02/20/24 21:00 30 02/20/24 20:30 30 02/20/24 20:00 10 30 02/20/24 19:50 12 30 Critical Care Results & Data Vital Signs (Past 12 Hours) Vital Signs Temp Pulse Pulse Resp BP Pulse Ox O2 Del Method 02/21/24 06:00 36.5 C 83 21 97/65 L 96 BiPAP, Mechanical Vent 02/21/24 05:08 80 15 90/59 L 95 BiPAP, Mechanical Vent 02/21/24 04:00 02/21/24 04:00 36.5 C 80 20 92/54 L 94 BiPAP, Mechanical Vent 02/21/24 03:45 76 19 94 02/21/24 03:00 78 24 91/51 L 95 BiPAP, Mechanical Vent 02/21/24 02:00 36.5 C 88 24 106/73 94 BiPAP, Mechanical Vent 02/21/24 01:00 89 24 111/71 93 BiPAP, Mechanical Vent 02/21/24 00:00 02/21/24 00:00 81 02/21/24 00:00 36.5 C 87 22 119/88 94 Mechanical Vent 02/20/24 23:15 96 H 24 99 02/20/24 23:00 87 28 H 99/65 L 94 Trach Collar 02/20/24 22:00 36.5 C 97 H 17 103/68 97 Trach Collar 02/20/24 21:00 95 H 17 95/54 L 97 Trach Collar 02/20/24 20:30 Trach Collar 02/20/24 20:00 36.7 C 87 24 99/61 L 97 Trach Collar 02/20/24 19:50 92 H 22 96 Trach Collar O2 Flow Rate FiO2 02/21/24 06:00 50 02/21/24 05:08 50 02/21/24 04:00 50 02/21/24 04:00 50 02/21/24 03:45 50 02/21/24 03:00 50 02/21/24 02:00 40 02/21/24 01:00 40 02/21/24 00:00 40 02/21/24 00:00 02/21/24 00:00 40 02/20/24 23:15 40 02/20/24 23:00 30 02/20/24 22:00 30 02/20/24 21:00 30 02/20/24 20:30 30 02/20/24 20:00 10 30 02/20/24 19:50 12 30 Lab & Micro Results (Past 24 Hours) No Data to Display Phosphorus Level 3.8 mg/dl (2.5-4.9) 02/21/24 Mg 2.0 mg/dl (1.7-2.4) 02/21/24 06:14 Microbiology 02/18/24 18:30 Gram Stain - Final Bronch Wash,Right Lower Lobe Bronchial Culture - Preliminary Pseudomonas aeruginosa Coryne striatum/simulans grp 02/18/24 18:30 Fungal Smear - Final Bronch Wash,Right Lower Lobe Fungal Culture - Preliminary No yeast or fungus isolated - Report 1, Additional Report to Follow. I & O Totals 24 Hours 02/20/24 02/21/24 02/22/24 06:59 06:59 06:59 Intake Total 1788.4 / 1788.4 2708.4 / 2708.4 Output Total 952 / 952 401 / 401 Balance 836.4 / 836.4 2307.4 / 2307.4 Cumulative 02/12/24 11:38 thru 02/21/24 06:00 Intake Total 80018.819 Output Total 5904 Balance 9217.819 RT Ventilator Mngmt (Last Documented) Ventilator Ordered Settings Ventilator Support Mode Assist Control 02/21/24 04:00 Respiratory Rate 21 02/21/24 06:00 Ventilator Tidal Volume 350 02/20/24 04:00 Setting Minute Ventilation 7.9 02/17/24 22:07 Ventilator Positive Pressure 20 02/21/24 04:00 Support Setting Positive End Expiratory 8 02/21/24 04:00 Pressure Fraction of Inspired Oxygen 50 02/21/24 06:00 Machine Comment rate decreased to 20 per ETCO2-25 02/16/24 03:50 Ventilator - PT Measurements Respiratory Rate 21 Exhaled Tidal Volume 384 Minute Ventilation 7.9 Peak Inspiratory Airway 12 Pressure Plateau Pressure 26 Respiratory Cycle Inspiratory: 1:3 Expiratory Ratio Inspiratory Phase Time 0.7 End-Tidal CO2 18 Static Lung Compliance 21.81 Dynamic Lung Compliance 96.00 Normal Static Lung Compliance 49.00 Patient Measurements Comment patient placed on bipap per Brady VALENCIA Coding Level of Care Code 78091 SUB INP/OBS CARE 3/50MIN Diagnoses Quadriplegic cerebral palsy G80.8 Pseudomonas aeruginosa colonization Z22.39 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
--- NOTE | 2024-02-21 14:32 | Hospitalist Progress Note ---
Date of Service February 21, 2024 Assessment & Plan (1) Acute and chronic respiratory failure with hypoxia: Plan: She has been weaned off ventilator support. Supplemental oxygen per tracheostomy to maintain saturation greater than 90%. Bronchoscopy was performed 02/18 lobo and secretions were aspirated. No current hemoptysis. (2) Atelectasis: Plan: Left lower lobe area. Improved appearance on chest x-ray. Associated Pseudomonas pneumonia remains a possibility. Known bronchiectasis in the left lower lobe. She is now on Bactrim and Zerbaxa antibiotic. Pseudomonas previously isolated in sputum (3) COVID-19: Plan: By nasal swab. Current variants are not causing pneumonia and I highly doubt this is having any current role in her current clinical state. No indication for remdesivir (4) S/P percutaneous endoscopic gastrostomy (PEG) tube placement: Plan: stable. Continue tube feedings as usual (5) Seizure disorder: Plan: Stable. Continue current medical management (6) Cerebral palsy: Plan: Severe. Nonverbal. Supportive care (7) Sepsis: Plan: Possibly present on admission. 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 Continue broad-spectrum antibiotic coverage for now Plan Eventual discharge back to her previous living arrangements. Hopefully tomorrow, February 21, with IV Zerbaxa through March 02. She has a venous access port in place for administration Admission and Anticipated Discharge Date Admission Date: February 12, 2024 Subjective No significant clinical change. The patient has her eyes open but no verbal interaction. She is unable to track. Mother is at the bedside. Review of Systems 2 Review of Systems: The patient is nonverbal and unable to answer any questions regarding review of systems Physical Exam 2 Physical Exam: General-awake but nonverbal. No distress. Severe cerebral palsy at baseline HEENT-head atraumatic and normocephalic, both eyes are open but she is unable to track Neck-no lymphadenopathy or thyromegaly, trachea midline. She has a permanent tracheostomy in place. Chest-scattered bilateral rhonchi. No wheezing. Cardiac-regular rate and rhythm, normal S1 and S2 Abdomen-normal bowel sounds, no hepatosplenomegaly. PEG tube in place Extremities-bilateral upper extremity contractures. Atrophy of all 4 extremities noted. Neuro-severe cerebral palsy at baseline. Nonverbal. Functional quadriplegia Psych-cannot assess Results & Data Results & Data Vital Signs (Past 12 Hours) Vital Signs Temp Pulse Pulse Resp BP Pulse Ox O2 Del Method 02/21/24 12:50 103 H 23 97 Trach Collar 02/21/24 11:54 36.8 C 02/21/24 11:09 91 H 26 H 105/67 97 Trach Collar 02/21/24 10:06 100 H 22 108/65 98 Trach Collar 02/21/24 09:31 100 H 22 101/71 98 Trach Collar 02/21/24 09:30 98 H 31 H 101/71 98 Trach Collar 02/21/24 08:00 103 H 24 104/69 98 Trach Collar 02/21/24 08:00 Trach Collar 02/21/24 07:50 109 H 21 95 Trach Collar 02/21/24 07:26 102 H 24 97 BiPAP 02/21/24 07:00 36.5 C 02/21/24 07:00 93 H 19 101/60 100 Trach Collar 02/21/24 07:00 02/21/24 06:00 36.5 C 83 21 97/65 L 96 BiPAP, Mechanical Vent 02/21/24 05:08 80 15 90/59 L 95 BiPAP, Mechanical Vent 02/21/24 04:00 02/21/24 04:00 36.5 C 80 20 92/54 L 94 BiPAP, Mechanical Vent 02/21/24 03:45 76 19 94 02/21/24 03:00 78 24 91/51 L 95 BiPAP, Mechanical Vent O2 Flow Rate FiO2 02/21/24 12:50 35 02/21/24 11:54 02/21/24 11:09 10 35 02/21/24 10:06 10 35 02/21/24 09:31 10 40 02/21/24 09:30 10 35 02/21/24 08:00 10 40 02/21/24 08:00 10 40 02/21/24 07:50 40 02/21/24 07:26 50 02/21/24 07:00 02/21/24 07:00 10 40 02/21/24 07:00 50 02/21/24 06:00 50 02/21/24 05:08 50 02/21/24 04:00 50 02/21/24 04:00 50 02/21/24 03:45 50 02/21/24 03:00 50 Laboratory Results 02/20/24 03:53 02/20/24 03:53 PG Care Time/CCT Total # of Minutes Spent Total Time Spent with Patient: Total time spent is greater than 50% in coordination of care (as documented) at patient's floor/unit and/or counseling patient: Coding Level of Care Code 73336 SUB INP/OBS CARE 2/35MIN Diagnoses Acute and chronic respiratory failure with hypoxia J96.21 Atelectasis J98.11 COVID-19 U07.1 S/P percutaneous endoscopic gastrostomy (PEG) tube placement Z93.1 Seizure disorder G40.909 Cerebral palsy G80.9 Sepsis A41.9 Sepsis acute organ dysfunction status: unspecified Sepsis type: sepsis due to unspecified organism 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
[2024-02-22 05:00] LABS: Hematocrit (blood only) 31.3 % (37.0-47.0); Hemoglobin 10.8 g/dl (12.0-16.0); Mean Corpuscular Hemoglobin 33.4 pg (25.0-34.0); Mean Corpuscular Hgb Conc 34.5 g/dL (32.0-36.0); Mean Corpuscular Volume 96.9 fL (80.0-100.0); Mean Platelet Volume 8.1 fL (9.4-12.4); Platelet Count 164 K/uL (130-400); RDW Coefficient of Variation 12.4 % (11.5-14.5); RDW Standard Deviation 43.8 fL (36.4-46.3); Red Blood Count 3.23 M/uL (4.20-5.40); White Blood Count 5.33 K/ul (4.8-10.8)
[2024-02-22 05:14] LABS: BUN Creatinine Ratio 33.3 (10-20); Calcium 8.8 mg/dl (8.6-10.3); Creatinine Clr Calc Pharmacy 140.4 ml/min; Phosphorus 4.4 mg/dl (2.5-4.9); Potassium 4.2 mmol/L (3.5-5.1)
[2024-02-22 05:24] LABS: Basophils # (auto) 0.02 K/uL (0.00-0.20); Basophils % (auto) 0.4 %; Eosinophils # (auto) 0.05 K/uL (0.00-0.50); Eosinophils % (auto) 0.9 %; Immature Granulocytes # (auto) 0.34 K/uL (0.01-0.20); Immature Granulocytes % (auto) 6.4 %; Lymphocytes # (auto) 1.59 K/uL (1.20-3.40); Lymphocytes % (auto) 29.8 %; Monocytes # (auto) 0.73 K/uL (0.11-0.59); Monocytes % (auto) 13.7 %; Neutrophils % (auto) 48.8 %; Polychromasia 1+
--- NOTE | 2024-02-22 08:01 | Critical Care Progress Note ---
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 She was found to be COVID-positive. Cultures have been negative. She did have a low-grade fever. -- Trach dependent with AVAPS at night support Respiratory bio fire positive for COVID-19 02/12/2024 Nasal MRSA negative Procalcitonin 0.06 Sputum culture 02/15/2024 growing Pseudomonas (resistant to levofloxacin, sensitive to ceftolozane/tazobactam), Moraxella catarrhalis as well as stenotrophomonas maltophilia Last bronchoscopy 02/18/2024 growing Pseudomonas Bronchoscopy 10/08: Pseudomonas and Corynebacterium. Patient finished ceftazidime antibiotic, last dose was 10/26/2022 It also grew Epicoccum species which is most likely a colonizer History of Pseudomonas which is resistant to levofloxacin and tobramycin. Sensitive to only Avycaz History of Achromobacter and Pseudomonas in the sputum O2 supplementation to keep oxygen saturation between 90-92% --COVID-19 positive Patient's chest x-ray on presentation 02/12/2024 did not show any infiltrate Repeat chest x-ray 02/14/2024 does show some worsening of the left side Patient does have chronic bronchiectasis and history of collapse of the left lower lobe with chronic secretions I am unsure if Covid-19 is playing any role in patient's current presentation --Chronic bronchiectasis Hypertonic saline nebulized twice a day, aggressive suctioning with chest PT --Severe cerebral palsy -Continue baclofen, fluoxetine, Depakote, Zonegran -Intermittent fentanyl when on invasive ventilator --Normocytic anemia Monitor H&H -- Chronic thrombocytopenia Continue to trend --Prophylaxis VTE: IPC GI: None Lines: Left-sided port, peripheral Diet: Tube feeds Plan: In/out: +1568, urine output 1800 mL, +10 L since coming to the hospital Complete the course of antibiotics for total of 14 days although I do think patient has colonization with Pseudomonas as well as Moraxella Continue with Bactrim for 14 days for stenotrophomonas Continue with hypertonic saline nebulized and pulmonary toileting Plan for discharge today Please note the above document was generated using voice recognition software. It may contain grammatical, syntax or spelling errors.Any formal questions or concerns about the content, text or information contained within the body of this dictation should be directly addressed to the provider for clarification. Admission and Anticipated Discharge Date Admission Date: February 12, 2024 Subjective Patient seen and examined at bedside. No acute distress, no adverse events overnight She was on trach collar, saturating 92% on 30% Systolic blood pressure was in the high 90s with MAP in the mid 70s. Has been afebrile Getting tube feeds Review of Systems 2 Review of Systems: All systems reviewed & are unremarkable except as noted in Subjective Physical Exam 2 Physical Exam: Constitutional: No acute distress HEENT: EOMI, PERRLA, positive trach Respiratory system:Decreased air entry bilaterally, no wheeze, no rhonchi, mild crackles bilateral lower lobes more on the left CVS: S1-S2 positive, no murmurs or gallops, tachycardia Abdomen: Soft, nontender, nondistended, positive bowel sounds x4, positive PEG Extremities: +2 pulses bilaterally radialis/ dorsalis pedis, no cyanosis, no edema Neuro:Contracture of the upper and lower extremities, spontaneously opening eyes, not following commands Psych:Unable to assess G/U:Pure wick catheter Skin: no rashes, warm and dry Lymphatic: no cervical or axillary lymphadenopathy Results & Data Results & Data Vital Signs (Past 12 Hours) Vital Signs Temp Pulse Pulse Resp BP Pulse Ox O2 Del Method 02/22/24 07:29 94 H 20 94 BiPAP 02/22/24 07:00 BiPAP, Mechanical Vent 02/22/24 06:03 79 21 97 02/22/24 06:00 100/70 02/22/24 05:45 74 18 97 02/22/24 05:06 77 16 97 02/22/24 05:00 99/69 L 02/22/24 04:03 77 18 97 BiPAP 02/22/24 04:00 36.7 C 02/22/24 04:00 96/61 L 02/22/24 04:00 96/61 L 02/22/24 04:00 02/22/24 03:51 67 20 94 BiPAP 02/22/24 03:06 79 18 94 02/22/24 03:06 76 16 96 02/22/24 03:00 86/59 L 02/22/24 02:57 75 16 97 BiPAP 02/22/24 02:06 82 21 93 BiPAP 02/22/24 02:00 85/46 L 02/22/24 01:45 82 20 94 BiPAP 02/22/24 01:00 103/69 02/22/24 01:00 78 16 96 BiPAP 02/22/24 00:00 75 02/22/24 00:00 36.5 C 02/22/24 00:00 78 16 95 BiPAP 02/22/24 00:00 97/64 L 02/22/24 00:00 97/64 L 02/22/24 00:00 02/21/24 23:15 87 16 95 BiPAP 02/21/24 23:00 108/65 02/21/24 22:45 91 H 24 95 02/21/24 22:35 96 H 19 97 02/21/24 22:00 98 H 30 H 93 BiPAP 02/21/24 22:00 108/68 02/21/24 22:00 108/68 02/21/24 21:12 95 H 34 H 93 Trach Collar 02/21/24 21:00 98/62 L 02/21/24 20:06 89 26 H 96 Trach Collar 02/21/24 20:00 36.8 C 02/21/24 20:00 Mechanical Vent 02/21/24 20:00 103/59 L O2 Flow Rate FiO2 02/22/24 07:29 30 02/22/24 07:00 02/22/24 06:03 30 02/22/24 06:00 02/22/24 05:45 30 02/22/24 05:06 30 02/22/24 05:00 02/22/24 04:03 30 02/22/24 04:00 02/22/24 04:00 02/22/24 04:00 02/22/24 04:00 30 02/22/24 03:51 30 02/22/24 03:06 02/22/24 03:06 30 02/22/24 03:00 02/22/24 02:57 30 02/22/24 02:06 30 02/22/24 02:00 02/22/24 01:45 30 02/22/24 01:00 02/22/24 01:00 30 02/22/24 00:00 02/22/24 00:00 02/22/24 00:00 30 02/22/24 00:00 02/22/24 00:00 02/22/24 00:00 30 02/21/24 23:15 30 02/21/24 23:00 02/21/24 22:45 02/21/24 22:35 30 02/21/24 22:00 30 02/21/24 22:00 02/21/24 22:00 02/21/24 21:12 10 30 02/21/24 21:00 02/21/24 20:06 10 30 02/21/24 20:00 02/21/24 20:00 10 30 02/21/24 20:00 Laboratory Results 02/22/24 04:40 02/22/24 04:40 Coding Level of Care Code 61550 SUB INP/OBS CARE 2/35MIN Diagnoses Quadriplegic cerebral palsy G80.8 Pseudomonas aeruginosa colonization Z22.39 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
--- NOTE | 2024-02-22 09:17 | Hospitalist Progress Note ---
Date of Service February 22, 2024 Assessment & Plan (1) Acute and chronic respiratory failure with hypoxia: Plan: She has been weaned off ventilator support. Supplemental oxygen per tracheostomy to maintain saturation greater than 90%. Bronchoscopy was performed 02/18 lobo and secretions were aspirated. No current hemoptysis. sepsis present on admission resolved covid identified, not candidate for remdesivir (2) Atelectasis: Plan: Left lower lobe area. Improved appearance on chest x-ray. Associated Pseudomonas pneumonia remains a possibility. Known bronchiectasis in the left lower lobe. She is now on Bactrim and Zerbaxa antibiotic. Pseudomonas previously isolated in sputum, previous issues with resistance (3) S/P percutaneous endoscopic gastrostomy (PEG) tube placement: Plan: stable. Continue tube feedings as usual (4) Cerebral palsy: Plan: Severe. Nonverbal. associated seizure disorder Plan Eventual discharge back to her previous living arrangements. Hopefully tomorrow, February 21, with IV Zerbaxa through March 02. She has a venous access port in place for administration Admission and Anticipated Discharge Date Admission Date: February 12, 2024 Results & Data Results & Data Vital Signs (Past 12 Hours) Vital Signs Temp Pulse Pulse Resp BP Pulse Ox O2 Del Method 02/22/24 08:00 105 H 27 H 111/72 93 Trach Collar 02/22/24 08:00 98.6 F 02/22/24 07:29 94 H 20 94 BiPAP 02/22/24 07:03 87 22 101/68 97 Trach Collar 02/22/24 07:00 BiPAP, Mechanical Vent 02/22/24 06:03 79 21 97 02/22/24 06:00 100/70 02/22/24 05:45 74 18 97 02/22/24 05:06 77 16 97 02/22/24 05:00 99/69 L 02/22/24 04:03 77 18 97 BiPAP 02/22/24 04:00 98.1 F 02/22/24 04:00 96/61 L 02/22/24 04:00 96/61 L 02/22/24 04:00 02/22/24 03:51 67 20 94 BiPAP 02/22/24 03:06 79 18 94 02/22/24 03:06 76 16 96 02/22/24 03:00 86/59 L 02/22/24 02:57 75 16 97 BiPAP 02/22/24 02:06 82 21 93 BiPAP 02/22/24 02:00 85/46 L 02/22/24 01:45 82 20 94 BiPAP 02/22/24 01:00 103/69 02/22/24 01:00 78 16 96 BiPAP 02/22/24 00:00 75 02/22/24 00:00 97.7 F 02/22/24 00:00 78 16 95 BiPAP 02/22/24 00:00 97/64 L 02/22/24 00:00 97/64 L 02/22/24 00:00 02/21/24 23:15 87 16 95 BiPAP 02/21/24 23:00 108/65 02/21/24 22:45 91 H 24 95 02/21/24 22:35 96 H 19 97 02/21/24 22:00 98 H 30 H 93 BiPAP 02/21/24 22:00 108/68 02/21/24 22:00 108/68 O2 Flow Rate FiO2 02/22/24 08:00 10 30 02/22/24 08:00 02/22/24 07:29 30 02/22/24 07:03 10 30 02/22/24 07:00 02/22/24 06:03 30 02/22/24 06:00 02/22/24 05:45 30 02/22/24 05:06 30 02/22/24 05:00 02/22/24 04:03 30 02/22/24 04:00 02/22/24 04:00 02/22/24 04:00 02/22/24 04:00 30 02/22/24 03:51 30 02/22/24 03:06 02/22/24 03:06 30 02/22/24 03:00 02/22/24 02:57 30 02/22/24 02:06 30 02/22/24 02:00 02/22/24 01:45 30 02/22/24 01:00 02/22/24 01:00 30 02/22/24 00:00 02/22/24 00:00 02/22/24 00:00 30 02/22/24 00:00 02/22/24 00:00 02/22/24 00:00 30 02/21/24 23:15 30 02/21/24 23:00 02/21/24 22:45 02/21/24 22:35 30 02/21/24 22:00 30 02/21/24 22:00 02/21/24 22:00 PG Care Time/CCT Total # of Minutes Spent Total Time Spent with Patient: Total time spent is greater than 50% in coordination of care (as documented) at patient's floor/unit and/or counseling patient: Coding Diagnoses Acute and chronic respiratory failure with hypoxia J96.21 Atelectasis J98.11 S/P percutaneous endoscopic gastrostomy (PEG) tube placement Z93.1 Cerebral palsy G80.9
[2024-02-22 11:44] VITALS: RESP 27; TEMP 98.2
[2024-02-22] MEDS: HEPARIN 100 UNIT/ML 5ML FLUSH FLUSH PRN (14:05)
[2024-02-22 14:33] VITALS: BP 111/79; PULSE 84; O2SAT 95
--- NOTE | 2024-02-22 16:03 | Discharge Summary ---
Discharge Summary Date of Service February 22, 2024 Principal Dx & Hospital Course #1 = Principal Diagnosis (1) Acute and chronic respiratory failure with hypoxia: She has been weaned off ventilator support. Supplemental oxygen per tracheostomy to maintain saturation greater than 90%. Bronchoscopy was performed 02/18 lobo and secretions were aspirated. No current hemoptysis. sepsis present on admission resolved, source concern for pseudomonas pneumonia and Moraxella ( consider Stenotrophomonas also) covid identified, not candidate for remdesivir Pulmonary med will treat for total of 14 d for respiratory pneumonia , on Bactrim x 14 days and Zerbaxa antibiotic for additional 7 IV . (2) S/P percutaneous endoscopic gastrostomy (PEG) tube placement: stable. Continue tube feedings as usual (3) Cerebral palsy: Severe. Nonverbal. associated seizure disorder Plan Discharge back to her previous living arrangements. February 21, with IV Ze rbaxa. She has a venous access port in place for administration, bactrim via feeding tube Admission HPI Per Admitting Provider 28 y/o female with know PMH quadriplegic cerebral palsy, chronic respiratory failure with tracheo, seizure disorders here due to increase thick sputum production, fever, and tachycardia at home. Symptoms started today. Mom and home health nurse at bedside. Sister had similar symptoms, she had been treated as a pneumonia. No reflux, no diarrhea. Hypoxia on ED. Hypotension and tachycardia as well. No fever on Ed, but HH nurse states that patient had a fever of 101 this morning. She use ventilator at night, no oxygen during the day. No runny nose, or congestion. Caregiver refers urine had been more dirty than usual. she take nitrofurantoin chronically for recurrent UTI Patient had a known past medical history pseudomonas colonization. . Ed course: Cefepime and Vanco given due to this story. 2 L of NSS given due to hypotension. Tylenol for fever. CXR: no signs of pneumonia. No leukocytosis. Lactate acid 2.1. Procal negative. vital signs ED: Hypotension on 92/64, Tachycardia of 120. RR: 33. No fever Discharge Exam Pt is non verbal makes sound and movement when trach suctioning once calm appears in no distress lungs are coarse mother at bedside and updated Discharge Plan Discharge Items Patient Disposition: Home - Home Health Services Reason For Visit: SEPSIS Discharge Diagnosis: Acute respiratory failure with hypoxia covid infection moraxella & pseudomonas pneumonia cerebral palsy Activity: As commented below Activity Comment: resume typical physical care Non-emergency contact: Primary Care Provider Call non-emergency contact if: your symptoms worsen Follow-up/Referrals: Janet Pearce MD [Primary Care Provider] - 02/26/24 1:00 pm (Hospital follow up scheduled February 25 at 1:00 with ERIK Che) Diet: Regular Diet Comment: use tube feeding Addtl Attending Provider Instructions: complete your antibiotics follow up in your typical manner Pending Studies at Discharge: No Stand-Alone Forms: My [facility] [employer], Smoking Cessation Medications and DC Order Prescriptions: New sulfamethoxazole-trimethoprim 200-40 mg/5 mL Suspension 32 ml PEG Q12H Qty: 946 0RF Rx Instructions: 10 mg /kg for stenotrophomonas ceftolozane-tazobactam 1.5 gram recon soln 3 g IV Q8H 7 Days Rx Instructions: administer over 60 mins this combined with hospital stay will be 14 days Continued acetaminophen 160 mg/5 mL liquid 640 mg PO Q6H PRN (Reason: fever or pain) Qty: 473 5RF budesonide 0.5 mg/2 mL suspension for nebulization 0.5 mg inhalation BID Qty: 120 11RF albuterol sulfate 2.5 mg /3 mL (0.083 %) solution for nebulization 2.5 mg inhalation Q4H PRN (Reason: Wheezing/ shortness of breath) Qty: 540 5RF baclofen 20 mg tablet 20 mg feeding tube TID 30 Days Qty: 90 11RF clonazepam 0.5 mg tablet,disintegrating 0.5 mg feeding tube DIRECTED PRN (Reason: PROLONGED SEIZURES) Qty: 30 5RF Rx Instructions: take 1 to 2 tablets by mouth daily, for prolonged seizures fluoxetine 20 mg tablet 20 mg feeding tube QDL Qty: 30 11RF valproic acid (as sodium salt) 250 mg/5 mL solution 550 mg feeding tube TID Qty: 990 11RF Hold Instructions: Resume on 11/07/23. cetirizine 10 mg tablet 10 mg feeding tube DAILY Qty: 90 3RF trazodone 50 mg tablet 50 mg feeding tube HS Qty: 90 3RF Boost 0.04 gram- 1 kcal/mL Liquid 1.5 ea PO QID@07,1130,15,19 Rx Instructions: 350mL via PEG tube at 400mL/hr at 0700, 1130, 1500, 1900 water Liquid 120 ea PO QID@07,1130,15,19 Rx Instructions: 120mL water flush via PEG before and after each bolus tube feed Xtracal Plus 14 gram-230 kcal/45 mL liquid in packet 1 ea feeding tube DAILY@1100 albuterol sulfate 2.5 mg /3 mL (0.083 %) solution for nebulization 2.5 mg continuous nebulization TID Rx Instructions: per home nurse,pt has 2 orders for albuterol. One to use three times daily, 2nd order is PRN zonisamide 100 mg capsule 200 mg feeding tube QAM Rx Instructions: - TAKE 2 CAPS EVERY MORNING AND 1 CAP AT BEDTIME; zonisamide 100 mg Capsule 100 mg HS Rx Instructions: feeding tube sodium chloride 7 % solution for nebulization 4 ml inhalation BID Qty: 240 3RF lidocaine-prilocaine 2.5-2.5 % cream 1 applic topical UD PRN (Reason: Other) Rx Instructions: Use as needed when accessing port; polyethylene glycol 3350 17 gram/dose powder 17 g feeding tube DAILY Rx Instructions: TAKE 17 GRAMS DISSOLVED IN WATER VIA FEEDING TUBE DAILY ibuprofen 100 mg/5 mL suspension 100 mg PO UD PRN (Reason: fever or pain) Rx Instructions: 10-20mL PO Q6H PRN; Held nitrofurantoin macrocrystal 50 mg capsule 50 mg feeding tube DAILY Qty: 90 3RF Hold Instructions: Resume on 03/08/24. No Action (DME) Miscellaneous Medical Supply (Hospital Bed) See Rx Instructions .Route .MEDSUPPLY Qty: 1 0RF Rx Instructions: 1 set; replacement pads for side rails on hospital bed (DME) nebulizers [facility] [place] See Rx Instructions .Route Qty: 1 0RF Rx Instructions: Nebulizer and nebulizer supplies Hers is broken beyond repair (DME) [place] Tracheostomy Care Tray Mis See Rx Instructions .Route Qty: 30 5RF Rx Instructions: Trach cleaning kit (DME) Miscellaneous Pulmonary Supply Mis See Rx Instructions .Route Qty: 1 0RF Rx Instructions: Replace current pulse oximeter (DME) incontinence pad, liner, disp Pad See Rx Instructions .ROUTE .MEDSUPPLY Qty: 75 11RF Rx Instructions: 20 under pads and 75 liners (DME) Day and Night Brief, Large Misc See Rx Instructions .ROUTE .MEDSUPPLY Qty: 180 11RF Rx Instructions: girls get changed 6-8 x daily (DME) disposable gloves Misc See Rx Instructions .ROUTE .MEDSUPPLY Qty: 100 0RF Rx Instructions: As directed G80.9 (DME) incontinence pad, liner, disp Pad See Rx Instructions .ROUTE .MEDSUPPLY Qty: 20 0RF Rx Instructions: As directed G80.9 (DME) Repair or Replacement of Hospital Bed See Rx Instructions .Route .MEDSUPPLY Qty: 1 0RF Rx Instructions: Repair or replace side rails and padding (DME) nebulizer accessories Misc See Rx Instructions .Route Qty: 1 0RF Rx Instructions: As directed (DME) miscellaneous medical supply Misc VAGINAL Rx Instructions: ADULT LARGE INCONTINENT PANTS QTY 180 (DME) miscellaneous medical supply Misc VAGINAL Rx Instructions: CORRUGATED TUBING FOR TRACH COLLAR 100 FT. (DME) miscellaneous medical supply Misc VAGINAL Rx Instructions: HME (HEAT MOISTURE EXCHANGERS) QTY: 30 Discharge Orders: Discharge Order (Routine); Ordered 02/22/24 Ordered By: Randy Morin Admission Data Admit Date/Time: 02/12/24 14:00 Attending Provider: Randy Morin Admit Provider: Jarvis Jackson Primary Care Provider: Janet Pearce Other Providers: Ray Bocanegra; Freddy Ribeiro; Sandie,Dimitrios Other Interventions: Discharge Summary Assessment (RN) Last Done: 02/22/24 13:17 Hospital Stay Data Consultations 02/12/24 12:58 ED Decision to Admit Stat 02/14/24 12:10 Consult Pulmonology Routine Pending Results Patient Have Any Pending Studies at Discharge: No Discharge Instructions Given to Patient (Per Discharging Provider) complete your antibiotics follow up in your typical manner Total Time Total Time Spent Total Time Spent (In Minutes): It required greater than 30 minutes to prepare this patient for discharge. Coding Level of Care Code 52275 INP/OBS DISCH >30 MIN Diagnoses Acute and chronic respiratory failure with hypoxia J96.21 S/P percutaneous endoscopic gastrostomy (PEG) tube placement Z93.1 Cerebral palsy G80.9
== END 2024-02-22 14:37 | disposition home health service (06) | DRG 871 ==
LOC: ED 11:38 → SUATTDRO 14:00 → 1E 14:00